=== PATIENT | female | born 1950 | race Caucasian/White ===

== ENCOUNTER 2019-04-29 13:00 | Outpatient (RCR) | payer MEDICARE, OTHER, SELFPAY | END 2019-05-04 23:59 | disposition home or self-care (01) | LOC: ANHDMC 13:00 | DX: E11.22 Type 2 diabetes mellitus with diabetic chronic kidney disease (principal); E11.65 Type 2 diabetes mellitus with hyperglycemia; N18.9 Chronic kidney disease, unspecified; Z71.89 Other specified counseling | CPT/HCPCS: G0108 ==

== ENCOUNTER 2021-09-08 09:48 | Emergency (ER) | payer MEDICARE, OTHER, SELFPAY ==
--- NOTE | ~2021-09-08 | US_ITS ---
US venous doppler LE RT DATE: 09/08/2021 11:05 INDICATION: Right leg pain TECHNIQUE: Real-time and color flow imaging and Doppler analysis of the veins of the right lower extr emity COMPARISON: 11/2015 venous duplex examination of the right lower extremity FINDINGS: The greater saphenous vein is patent. There is spontaneous and phasic flow and normal augme ntation and color flow signal and normal compression of the deep veins of the right leg. IMPRESSION: No evidence of deep venous thrombosis of right leg Reviewed, dictated and finalized at [facility]. Reviewed, dictated and finalized at location A.
[2021-09-08 10:02] VITALS: BP 107/46; PULSE 91; RESP 18; TEMP 36.5; O2SAT 96
--- NOTE | 2021-09-08 10:43 | ED.GENADULT ---
HPI - General Adult General Chief complaint: Extremity Injury, Lower Stated complaint: R. leg pain swollen Time Seen by Provider: 09/08/21 10:34 History of Present Illness HPI narrative: pt here with couple days right leg pain calf going up leg never had before no swelling no trips h/o dvt or family history no med changes not in heat no truama/neuro cahgnes/otc meds tried but sore and rest of body fine. pt says never had before. no skin changes. pt says worried about clot no shots recently no cp/sob Related Data Allergies Allergy/AdvReac Type Severity Reaction Status Date / Time propoxyphene Allergy Unknown Nausea Verified 09/08/21 10:31 Review of Systems Constitutional: Comments: CONSTITUTIONAL: Denies fever, chills, or sweats. EYES: Denies visual changes, redness, or discharge. ENT: Denies rhinorrhea, congestion, sore throat, or otalgia. CARDIOVASCULAR: Denies chest pain, palpitations, or edema. RESPIRATORY: Denies cough or dyspnea. GASTROINTESTINAL: Denies abdominal pain, nausea, vomiting, or diarrhea. GENITOURINARY: Denies dysuria or hematuria. SKIN: Denies rash or itching. MUSCULOSKELETAL: Denies back pain, joint pain,has myalgia right leg. NEUROLOGIC: Denies headache, numbness, or weakness. PSYCHIATRIC: Denies anxiety or depression. Exam Const: Other: APPEARANCE: Well appearing, no pain in distress, well-nourished. Head normocephalic atraumtaic. EYES: PERRLA/EOMI, conjunctivae very clear. NOSE: Normal no drainage EARS:TMS clear Libra Bertrand, with good light reflex. THROAT: Pharynx clear, no exudate. NECK: Supple. No adenopathy, no masses. RESPIRATORY: Airway patent, repsirations nonlabored. Clear to auscultation bilaterally, no rales, rhonchi, wheezing. CARDIOVASCULAR: Regular rate and rhythm without murmurs rubs or gallops. ABDOMINAL: Soft, nontender, nondistended, no hepatosplenomegally MUSCULOSKELETAl: Moves all extremities. Strenght/ROM intact, No edema, has calf tenderness right leg no swelling or skin changes. NEURO: Alert. Cranial nerves II through XII intact. Good gait. Good coordination SKIN:: Warm, dry. Normal Color PSYCHIATRIC: Normal affect/mood, normal interaction with parents. Course Course Emergency Course: updated adn good with plan no back issues at 1220 Vital Signs Vital signs: Vital Signs Temperature 36.5 C 09/08/21 10:02 Pulse Rate 91 09/08/21 10:02 Respiratory Rate 18 09/08/21 10:02 Blood Pressure 107/46 L 09/08/21 10:02 Pulse Oximetry 96 09/08/21 10:02 Oxygen Delivery Room Air 09/08/21 10:02 Temperature 36.5 C 09/08/21 10:02 Pulse Rate 91 09/08/21 10:02 Respiratory Rate 18 09/08/21 10:02 Blood Pressure 107/46 L 09/08/21 10:02 Pulse Oximetry 96 09/08/21 10:02 Oxygen Delivery Room Air 09/08/21 10:02 Medical Decision Making Vital Signs Vital Signs: Vital Signs Temperature 36.5 C 09/08/21 10:02 Pulse Rate 91 09/08/21 10:02 Respiratory Rate 18 09/08/21 10:02 Blood Pressure 107/46 L 09/08/21 10:02 Pulse Oximetry 96 09/08/21 10:02 Oxygen Delivery Room Air 09/08/21 10:02 Temperature 36.5 C 09/08/21 10:02 Pulse Rate 91 09/08/21 10:02 Respiratory Rate 18 09/08/21 10:02 Blood Pressure 107/46 L 09/08/21 10:02 Pulse Oximetry 96 09/08/21 10:02 Oxygen Delivery Room Air 09/08/21 10:02 Imaging Data Radiologist's impression: Impressions Venous Doppler Study 09/08/21 11:27 IMPRESSION: No evidence of deep venous thrombosis of right leg Discharge Plan Discharge Clinical Impression: Leg pain, right Patient Disposition: Home, Self-Care Condition: Stable Additional Instructions: tylenol motrin call your doc for further care, return if new issues Follow-up/Referrals: PHYSICIAN,ELECTRONIC TECHNICIAN [Primary Care Provider] -
[2021-09-08 12:36] VITALS: BP 139/76; PULSE 79; RESP 18; O2SAT 100
== END 2021-09-08 12:35 | disposition home or self-care (01) ==
PROVIDERS: Emergency Provider Emergency Medicine
DX: M79.661 Pain in right lower leg (principal)
CPT/HCPCS: 93971; 99284

== ENCOUNTER → 2021-09-21 16:33 | Outpatient (CLI) | payer MEDICARE, OTHER, SELFPAY ==
--- NOTE | ~2021-09-21 | XR_ITS ---
XR_[id number]_CR 09/21/2021 17:16 Indication: Cervical radiculopathy Procedure: 4 view cervical spine Comparison: No prior studies for comparison. Findings: There is disc narrowing at C4-5, C5-6 and C6-7 with advanced multilevel uncinate and facet hypertrophy at these levels. There is degenerative anterolisthesis at C3-4. No prevertebral soft tiss ue swelling. Odontoid process within normal limits. Lateral masses normally aligned. Lung apices are normal. Impression: 1: Severe cervical spondylosis. Reviewed, dictated and finalized at location A. Impression: 1: Severe cervical spondylosis.
== END ==
DX: M47.22 Other spondylosis with radiculopathy, cervical region (principal)
CPT/HCPCS: 72040

== ENCOUNTER → 2021-10-04 11:05 | Outpatient (CLI) | payer MEDICARE, OTHER, SELFPAY ==
--- NOTE | ~2021-10-04 | MR_ITS ---
EXAMINATION: MR cervical spine wo con DATE: 10/04/2021 11:48 INDICATION: Cervical degenerative disc disease TECHNIQUE: Magnetic resonance imaging (MRI) of the cervical spine was performed without intravenous c ontrast. Sequences included sagittal T2-weighted FSE, sagittal T2-weighted FS FSE, sagittal T1-weight ed FSE, axial MERGE and axial T2-weighted FSE. COMPARISON: Cervical spine radiographs dated 09/21/2021 FINDINGS: 1-2 mm anterolisthesis C3 on C4 and 2 mm retrolisthesis C4 on C5 and C5 on C6. Vertebral body heights are normal. Severe disc height loss with prominent degenerative endplate changes at C4-C5 through C6 -C7. Mild disc height loss at C3-C4. Bone marrow signal intensity is normal. Intervertebral disc hei ghts are normal. Cord signal intensity is normal. Cervical soft tissues are unremarkable. The followi ng disc levels are specifically discussed: C2-C3: The disc does not extend beyond the endplate margin. There is mild left uncovertebral joint os teoarthritis. There is mild right and severe left facet joint osteoarthritis. There is mild left neur al foraminal stenosis. There is no central canal stenosis. C3-C4: Disc is bulging. There is mild bilateral uncovertebral joint osteoarthritis. There is severe r ight and moderate left facet joint osteoarthritis. There is mild bilateral neural foraminal stenosis. There is mild central canal stenosis with slight flattening of the ventral surface of the cord. C4-C5: Disc is bulging. There is severe bilateral uncovertebral joint osteoarthritis. There is modera te right and severe left facet joint osteoarthritis. There is moderate bilateral neural foraminal allegra nosis. There is mild central canal stenosis with right-sided predominant indentation of the ventral s urface of the cord. C5-C6: Disc is bulging. There is severe bilateral uncovertebral joint osteoarthritis. There is mild r ight and moderate left facet joint osteoarthritis. There is moderate bilateral neural foraminal steno sis. There is mild central canal stenosis with flattening of the ventral surface of the cord. C6-C7: Disc is bulging. There is moderate left and severe right uncovertebral joint osteoarthritis. T here is mild bilateral facet joint osteoarthritis. There is mild to moderate bilateral neural foramin al stenosis. There is mild central canal stenosis. C7-T1: The disc does not extend beyond the endplate margin. There is no uncovertebral joint osteoarth ritis. There is mild right and mild to moderate left facet joint osteoarthritis. There is mild left n eural foraminal stenosis. There is no central canal stenosis. IMPRESSION: 1. Severe cervical spondylosis. Reviewed, dictated and finalized at location A.
== END ==
DX: M50.30 Other cervical disc degeneration, unspecified cervical region (principal); M47.22 Other spondylosis with radiculopathy, cervical region
CPT/HCPCS: 72141

== ENCOUNTER → 2022-06-10 11:12 | Outpatient (CLI) | payer MEDICARE, OTHER, SELFPAY ==
--- NOTE | ~2022-06-10 | MM_ITS ---
EXAMINATION: MM screening yesy BI w marian HISTORY: Screening mammogram TECHNIQUE: Craniocaudal and mediolateral oblique 3-D tomosynthesis images were obtained and synthetic 2-D images were generated. CAD analysis was submitted and interpreted. COMPARISON: April 29, 2018 diagnostic left mammogram March 11, 2018, February 11, 2017 bilateral screening mammogram examinations BREAST PARENCHYMAL COMPOSITION: The breasts are heterogeneously dense, which may obscure small masses . FINDINGS: There is no evidence of suspicious mass, calcification, or architectural distortion to sugg est malignancy in either breast. There has been no suspicious interval change. IMPRESSION: 1. No mammographic evidence of malignancy. 2. Recommend routine screening mammography in one year. BI-RADS Category 1: Negative Reviewed, dictated and finalized at location A.
--- NOTE | ~2022-06-10 | DEXA_ITS ---
Bone Density Report Name: HEATHER PETTY Age: 72 Sex: Female Ethnicity: White Date of : 1950 Indication: postmenopausal; screening for osteoporosis; height loss; hysterectomy; Referring Provider: MARQUITA BELA Study: Bone densitometry was performed. Exam Date: June 10, 2022 Accession number: [id number] Bone Density: Region BMD T-score Z-score Classification AP Spine (L1, L2, L4) 1.056 0.2 2.5 Normal Femoral Neck (Left) 0.751 -0.9 1.1 Normal Total Hip (Left) 0.828 -0.9 0.8 Normal Femoral Neck (Right) 0.798 -0.5 1.6 Normal Total Hip (Right) 0.951 0.1 1.8 Normal Total Hip Mean 0.890 -0.4 1.3 Normal World Health Organization criteria for BMD impression classify patients as: Normal (T-score at or above -1.0), Osteopenia (T-score between -1.0 and -2.5), or Osteoporosis (T-score at or below -2.5). 10-year Fracture Risk: FRAX not reported because: All T-scores for Spine Total, Hip Total, Femoral Neck at or above -1.0 Previous Exams: Region Exam Age BMD T-score BMD Change BMD Change Date g/cm2 vs Baseline vs Previous AP Spine(L1, L2, L4) 06/10/2022 72 1.056 0.2 0.061* 0.061* 08/10/2007 57 0.994 -0.4 Total Hip(Left) 06/10/2022 72 0.828 -0.9 -0.060* -0.060* 08/10/2007 57 0.888 -0.4 Total Hip(Right) 06/10/2022 72 0.951 0.1 -0.020 -0.020 08/10/2007 57 0.971 0.2 *Denotes significance at 95% confidence level, LSC for AP Spine = 0.022 g/cm2, LSC for Total Hip = 0.027 g/cm2 Clinical Information Provided by Patient: Has used the following medications: HRT (i.e. estrogen/hormone therapy), Vitamin D, Calcium Has the following medical conditions: Hysterectomy Patient maximum height was 65 Menopause Age: 43 Drinks caffeinated beverages Onset of menses at age 15 Number of children 0 Missed period for more than 6 months in a row Impression: The patient has normal bone mass. The BMD for the Total Hip(Left) decreased, changing by -0.060 since the last DXA exam. Discussion: BONE DENSITY IS ABOVE THE MINIMUM DESIRABLE LEVEL AT ALL SKELETAL SITES TESTED. This patient?s bone mineral density is above the minimum desirable level (T-score -1.0 or better) at all sites measured. The patient should follow a healthful lifestyle (good nutrition with adequate calcium and vitamin D, and appropriate weight-bearing exercise). Follow-Up: Consider repeating this study in 3 to 4 years to reasses
== END ==
DX: Z12.31 Encounter for screening mammogram for malignant neoplasm of breast (principal); Z78.0 Asymptomatic menopausal state
CPT/HCPCS: 77063; 77067; 77080

== ENCOUNTER 2023-06-11 14:10 | Emergency (ER) | payer MEDICARE, OTHER, SELFPAY ==
--- NOTE | ~2023-06-11 | XR_ITS ---
EXAMINATION: XR chest 1V portable DATE: 06/11/2023 15:01 INDICATION: Midsternal chest pain. TECHNIQUE: A single frontal view of the chest was obtained. COMPARISON: None. FINDINGS: There is mild scarring at the lung apices. No pleural effusion or pneumothorax. The heart s ize is normal. IMPRESSION: 1. Mild scarring at the lung apices. Reviewed, dictated and finalized at location A.
--- NOTE | 2023-06-11 14:11 | ECG_ITS ---
Measurements Intervals [place] Rate: 74 P: 53 DE: 166 QRS: 11 QRSD: 74 T: 209 QT: 377 QTc: 420 Interpretive Statements SINUS RHYTHM BASELINE ARTIFACT POSSIBLE LEFT ATRIAL ENLARGEMENT [-0.1mV P-WAVE IN V1/V2] NONSPECIFIC ST & T-WAVE ABNORMALITY BORDERLINE ECG NO PREVIOUS ECG AVAILABLE FOR COMPARISON Electronically Signed On 06-11-2023 14:53:56 CDT by Edi Foley M.D.
[2023-06-11 14:12] VITALS: BP 200/87; PULSE 72; RESP 20; TEMP 36.6; O2SAT 99
--- NOTE | 2023-06-11 14:25 | ED.CHESTPAIN ---
HPI - Chest Pain General Chief Complaint: Chest Pain Stated Complaint: chest pain Time Seen by Provider: 06/11/23 14:21 Source: patient, family and other (report from urgent care) Mode of arrival: ambulatory Limitations: no limitations History of Present Illness HPI narrative: patient presents with intermittent chest pain occurring for the past approximately 1 month. Patient initially presented to urgent care who recommended she present to the emergency department in symptoms. Her provider at Urgent Care, blood pressure was 163/89. No lower extremity edema. She has a history of GERD for which she has been on multiple medications, most recently omeprazole. She does feel like her frequency and intensity of her symptoms is increasing. She states that episodes occur intermittently but last 4 hours. She states her pain level is low currently. Her symptoms are worse when walking fast after eating. she has been trying bland foods like oatmeal which has been helping. She is also complaining of her bilateral ears and eyes hurting with sinus pressure. She has been trying Mucinex and [place]. She feels like her symptoms might be related to allergies as she felt like her symptoms were starting to get worse while in [place] and things were fluttering and then became worse upon landing in [place] after returning (visited [place] for 2.5 months). She had previously been on lisinopril 40 mg q.h.s. for her hypertension but ran out while in [place]. She states that she attempted to call her physician's office while in [place] but was told that upon review of the blood pressure readings well previously in clinic did been normal. She states that she had been taking her blood pressure medication at that time. Related Data Allergies Allergy/AdvReac Type Severity Reaction Status Date / Time propoxyphene AdvReac Unknown Nausea Verified 06/11/23 15:17 [facility] Past Medical History Medical History (Updated 06/12/23 @ 10:06 by Cindy Siegel MD) GERD (gastroesophageal reflux disease) History of COVID-19 Social History Social History (Updated 06/11/23 @ 15:36 by Cindy Siegel MD) Additional living arrangements comments: Resides in [place] for 2.5 months/year Exam Narrative: GENERAL: Well-appearing, well-nourished, and in no acute distress. HEAD: Normocephalic, atraumatic. EYES: Non injected, non icteric ENT: Nares clear, no rhinorrhea or epistaxis. NECK: Supple. CHEST: Clear to auscultation Without appreciable wheezes or crackles.. No respiratory distress. Speaking in full sentences, nonlabored HEART: Regular rate and rhythm. . ABDOMEN: Soft, nondistended. EXTREMITIES: Normal range of motion. No Lower extremity edema. SKIN: Warm, dry, no rash. NEURO: No focal deficits. Alert and oriented x3. PSYCH: Normal mood and affect. Course Vital Signs Vital signs: Vital Signs Temperature 97.9 F 06/11/23 14:12 Pulse Rate 72 06/11/23 14:12 Respiratory Rate 20 06/11/23 14:12 Blood Pressure 200/87 H 06/11/23 14:12 Pulse Oximetry 99 06/11/23 14:12 Oxygen Delivery Room Air 06/11/23 14:12 Temperature 97.8 F 06/11/23 15:40 Pulse Rate 61 06/11/23 15:40 Respiratory Rate 16 06/11/23 15:40 Blood Pressure 171/102 H 06/11/23 15:40 Pulse Oximetry 100 06/11/23 15:40 Oxygen Delivery Room Air 06/11/23 14:41 MDM - Chest Pain MDM Narrative Medical decision making narrative: Patient presents with intermittent chest pain occurring for the past approximately 1 month. In the emergency department she is afebrile with vital signs notable for hypertension. Of note she was hypertensive at urgent care as well. Creatinine 1.3 with no prior for comparison. 1 L IV fluids ordered. Her symptoms are somewhat food related and she has a long standing history of GERD. Patient is feeling better on re-assessment. WIll discharge with strict ED return precautions, a short course of Maalox, and a GI referral.
[2023-06-11 14:42] LABS: Basophils Absolute Auto 0.1 K/mm3 (0.0-0.1); Basophils Percent Auto 0.9 % (0.2-1.2); Eosinophils Absolute Auto 0.1 K/mm3 (0-0.3); Eosinophils Percent Auto 1.6 % (0-4.4); Hematocrit 39.3 % (37.0-47.0); Hemoglobin 12.8 g/dL (12.0-15.0); Immature Granulocyte Absolute 0.04 K/mm3 (0.00-0.031); Immature Granulocyte Percent A 0.5 % (0-0.5); Lymphocytes Absolute Auto 2.04 K/mm3 (0.9-3.2); Lymphocytes Percent Auto 23.4 % (18.3-44.2); Mean Corpuscular HGB Conc 32.6 g/dl (32-36); Mean Corpuscular Hemoglobin 29.8 pg (26-34); Mean Corpuscular Volume 91.6 fl (80-100); Mean Platelet Volume 11.1 fl (7.4-10.4); Monocytes Absolute Auto 0.9 K/mm3 (0.1-0.6); Monocytes Percent Auto 10.6 % (2.6-8.5); Neutrophils Absolute Auto 5.5 K/mm3 (1.3-6.7); Platelet Count Result 237 k/mm3 (150-375); Red Blood Count 4.29 M/mm3 (4.2-5.4); Red Cell Distribution Width 12.9 % (11.5-14.5); White Blood Count 8.7 K/mm3 (4.5-10.0)
[2023-06-11] MEDS: ASPIRIN 81 MG CHEWABLE TABLET 324 MG PO (14:46)
[2023-06-11 14:52] LABS: Alanine Aminotransferase 23 U/L (6-35); Albumin Level 4.2 g/dL (3.5-5.1); Alkaline Phosphatase 87 U/L (38-126); Anion Gap 5 mmol/L (4-12); Aspartate Amino Transferase 26 U/L (14-36); Bilirubin,Total 0.4 mg/dL (0.2-1.3); Blood Urea Nitrogen 20 mg/dL (7-17); Calcium 9.4 mg/dL (8.4-10.2); Carbon Dioxide 27 mmol/L (22-30); Chloride 109 mmol/L (98-107); Estimated CRCL calculation 37 ml/min; Estimated Glomerular Filt Rate 40; Glucose 115 mg/dL (65-110); Lipase 137 U/L (23-300); Potassium 3.7 mmol/L (3.4-5.0); Sodium 141 mmol/L (137-145)
[2023-06-11 14:55] LABS: Prothrombin Time 13.2 Seconds (11.1-14.7)
[2023-06-11 14:56] LABS: Partial Thromboplastin Time 24.6 Seconds (22.3-36.8)
[2023-06-11 15:04] LABS: Troponin I < 0.012 ng/mL (0.000-0.034)
[2023-06-11] MEDS: lisinopriL 20 MG TABLET 40 MG PO (15:30)
[2023-06-11] MEDS: BELLADONNA ALK/PHENOB ELIX 10 ML, MAG HYDROX/ALUMINUM HYD/SIMETH 30 ML, LIDOCAINE HCL 2... PO (15:31)
[2023-06-11 15:40] VITALS: BP 171/102; PULSE 61; RESP 16; TEMP 36.6; O2SAT 100
[2023-06-11] MEDS: SODIUM CHLORIDE 0.9% IV 1,000 ML 999 ML IV CONT (15:40)
[2023-06-11 16:16] LABS: Influenza A QL RT-PCR Negative (Negative); Influenza B QL RT-PCR Negative (Negative); RSV RNA, RT-PCR Negative (Negative); SARS-CoV-2 RNA PCR Negative (Negative)
== END 2023-06-11 17:30 | disposition home or self-care (01) ==
PROVIDERS: Emergency Medicine; Emergency Provider Student in an Organized Health Care Education/Training Program
DX: R07.89 Other chest pain (principal); N17.9 Acute kidney failure, unspecified; I10 Essential (primary) hypertension; K21.9 Gastro-esophageal reflux disease without esophagitis; Z20.822 Contact with and (suspected) exposure to COVID-19; Z86.16 Personal history of COVID-19; R94.31 Abnormal electrocardiogram [ECG] [EKG]
CPT/HCPCS: 36415; 71045; 80053; 83690; 84484; 85025; 85610; 85730; 87637; 93005; 96360; 99284; A9270; J7030

== ENCOUNTER 2023-06-23 13:19 | Outpatient (CLI) | payer MEDICARE, OTHER, SELFPAY ==
--- NOTE | ~2023-06-23 | MM_ITS ---
EXAMINATION: MM screening yesy BI w marian HISTORY: Screening TECHNIQUE: Craniocaudal and mediolateral oblique 3-D tomosynthesis images were obtained and synthetic 2-D images were generated. CAD analysis was submitted and interpreted. COMPARISON: Comparison to multiple prior studies sequentially, with oldest reviewed study dated 04/2018. BREAST PARENCHYMAL COMPOSITION: Dense: The breasts are heterogeneously dense, which may obscure small masses FINDINGS: There is no evidence of suspicious mass, calcification, or architectural distortion to sugg est malignancy in either breast. There has been no suspicious interval change. IMPRESSION: 1. No mammographic evidence of malignancy. 2. Recommend routine screening mammography in one year. BI-RADS Category 1: Negative Reviewed, dictated and finalized at location B.
== END 2023-06-23 13:20 ==
DX: Z12.31 Encounter for screening mammogram for malignant neoplasm of breast (principal)
CPT/HCPCS: 77063; 77067

== ENCOUNTER 2023-09-18 12:45 | Day surgery (SDC) | payer MEDICARE, OTHER, SELFPAY ==
[2023-09-10 14:49] VITALS: BMI 33.0
[2023-09-18 14:11] VITALS: BP 154/71; PULSE 93; RESP 20; TEMP 35.6; O2SAT 98; BMI 31.8
[2023-09-18] MEDS: LACTATED RINGERS 1,000 ML 150 ML IV CONT (14:28)
--- NOTE | 2023-09-18 14:51 | WPDANESEPPF ---
Anes - Initial Pre Proc Eval Procedure: Operation Date: 09/18/23 15:30 Proposed Procedures p Esophagogastroduodenoscopy & Colonoscopy - Leonardo Mattson MD Date/Time: 09/18/23 14:51 Surgeon: Leonardo Mattson MD Pre Op Diagnosis: GERD without esophagitis, Family history malignant Patient Data Age: 73 Gender: F Height: 1.65 m Weight: 86.9 kg Last Vital Signs Temp 96.1 F L 09/18/23 14:11 Pulse 93 09/18/23 14:11 Resp 20 09/18/23 14:11 BP 154/71 H 09/18/23 14:11 Pulse Ox 98 09/18/23 14:11 O2 Del Method Room Air 09/18/23 14:11 Allergies Allergy/AdvReac Type Severity Reaction Status Date / Time propoxyphene AdvReac Unknown Nausea Verified 09/18/23 14:10 Home Medications Medication Instructions Recorded Confirmed Type aluminum-mag hydroxide-simethicone 10 ml PO QID PRN indigestion 06/11/23 09/18/23 Rx 200 mg-200 mg-20 mg/5 mL oral susp #3,000 mL (Antacid) lisinopril 40 mg tablet 40 mg PO DAILY #30 tabs 06/11/23 09/18/23 Rx glucosamine sulf dipot 1 cap PO DAILY 09/10/23 09/18/23 History chlr,msm,chond 550 mg-C 30 mg-samson 1 mg capsule (Glucosamine Chondroitin) rosuvastatin 10 mg tablet 10 mg PO HS 09/10/23 09/18/23 History Patient hx anesthesia problems: none Family hx anesthesia problems: none Results Review: All pre-operative results and documents have been reviewed as part of the pre-operative evaluation. [facility] [place] Past Medical History Medical History (Updated 07/07/23 @ 16:01 by Mary Campo APRN) GERD (gastroesophageal reflux disease) History of COVID-19 HLD (hyperlipidemia) Social History Social History (Updated 06/11/23 @ 15:36 by Cindy Siegel MD) Years smoked: 25 Smoking status: Former smoker Tobacco type: cigarettes Living arrangements: with family Additional living arrangements comments: Resides in [place] for 2.5 months/year Spiritual care concerns: No Anes - Eval Final PreProcedure Day of Procedure 09/18/23 14:51 Patient weight: obese Heart: regular rate and rhythm Lungs: clear to auscultation Airway: Mallampati scale class II Neurological: alert and oriented Last oral intake: >/= 8 hours ASA classification: III Emergent: no Anesthetic plan: proceed Anesthesia type and monitoring: general GIVS and standard monitoring Results Review: All pre-operative results and documents have been reviewed as part of the pre-operative evaluation. Informed Consent: The patient's anesthetic plan and its attendant risks and benefits were discussed with the patient/family/POA. Questions were solicited and answers provided to the satisfaction of the patient/family/POA.
--- NOTE | 2023-09-18 15:17 | P.HP_ITS ---
History of Present Illness History of Present Illness Consent: Risks, benefits, and alternatives have been discussed and questions answered. Patient agrees to proceed with procedure. Chief complaint: GERD without esophagitis, Family history malignant Narrative: Maura Watkins is a 73 year old female with gerd, earlier this year had non cardiac chest pain but now resolved, she is not even taking ppi anymore. Last colonoscopy 2019, brother had colon cancer Review of Systems Review of Systems: All systems reviewed & are unremarkable except as noted in HPI and below PMFSH Past Medical History Medical History (Updated 07/07/23 @ 16:01 by Mary Campo, EDILBERTO) GERD (gastroesophageal reflux disease) History of COVID-19 HLD (hyperlipidemia) Social History Social History (Updated 06/11/23 @ 15:36 by Cindy Siegel MD) Years smoked: 25 Smoking status: Former smoker Tobacco type: cigarettes Living arrangements: with family Additional living arrangements comments: Resides in [place] for 2.5 months/year Spiritual care concerns: No Meds Home Medications and Allergies Home Medications Medication Instructions Recorded Confirmed Type aluminum-mag hydroxide-simethicone 10 ml PO QID PRN indigestion 06/11/23 09/18/23 Rx 200 mg-200 mg-20 mg/5 mL oral susp #3,000 mL (Antacid) lisinopril 40 mg tablet 40 mg PO DAILY #30 tabs 06/11/23 09/18/23 Rx glucosamine sulf dipot 1 cap PO DAILY 09/10/23 09/18/23 History chlr,msm,chond 550 mg-C 30 mg-samson 1 mg capsule (Glucosamine Chondroitin) rosuvastatin 10 mg tablet 10 mg PO HS 09/10/23 09/18/23 History Allergies Allergy/AdvReac Type Severity Reaction Status Date / Time propoxyphene AdvReac Unknown Nausea Verified 09/18/23 14:10 Vital Signs Vital Signs - 24 hr 09/18/23 14:11 Temperature 96.1 F L Pulse Rate 93 Respiratory Rate 20 Blood Pressure 154/71 H Pulse Oximetry 98 Oxygen Delivery Room Air Exam Const: General: comfortable and no acute distress HENMT: Face/Nose/Sinus: Normal nares present Eyes: General: appearance normal, both eyes and all related structures Neck: Neck: no JVD Resp: Auscultation: clear to auscultation bilaterally Cardio: Rate: regular rate Rhythm: regular rhythm GI: Inspection: non-distended GI Palp: Yes Soft to palpation Skin: General skin exam: normal color Neuro: General: gait normal Speech: normal speech Extrem: General: normal to inspection Psych: Mental Status: mental status grossly normal Assessment and Plan Assessment and plan (1) GERD (gastroesophageal reflux disease): Code(s): K21.9 - Gastro-esophageal reflux disease without esophagitis Status: Acute Assessment and Plan: egd (2) Family hx of colon cancer: Code(s): Z80.0 - Family history of malignant neoplasm of digestive organs Status: Acute Assessment and Plan: colonoscopy
--- NOTE | 2023-09-18 15:27 | SUR.OPER ---
EGD COMPLETED AT 1525, COLONOSCOPY STARTED AT 1529
[2023-09-18 15:45] VITALS: BP 120/60; PULSE 63; RESP 19; O2SAT 97
[2023-09-18 15:55] VITALS: BP 120/82; PULSE 64; RESP 17; O2SAT 100
[2023-09-18 16:05] VITALS: BP 131/65; PULSE 60; RESP 22; O2SAT 100
== END 2023-09-18 16:17 | disposition home or self-care (01) ==
PROVIDERS: Referring Provider Nurse Practitioner; Visit Provider Internal Medicine Gastroenterology
PROC: 0DJ08ZZ Inspection of Upper Intestinal Tract, Via Natural or Artificial Opening Endoscopic (ICD-10-PCS; CPT 43235; principal; 2023-09-18 15:30)
DX: Z12.11 Encounter for screening for malignant neoplasm of colon (principal); D12.5 Benign neoplasm of sigmoid colon; K63.5 Polyp of colon; K64.8 Other hemorrhoids; Z80.0 Family history of malignant neoplasm of digestive organs; K29.50 Unspecified chronic gastritis without bleeding; K21.00 Gastro-esophageal reflux disease with esophagitis, without bleeding; K22.2 Esophageal obstruction; K44.9 Diaphragmatic hernia without obstruction or gangrene; E78.5 Hyperlipidemia, unspecified; Z87.891 Personal history of nicotine dependence; E66.9 Obesity, unspecified; Z68.31 Body mass index [BMI] 31.0-31.9, adult
CPT/HCPCS: 45385; 43249; 43239; 88305; J2704; J7120

== ENCOUNTER 2024-02-18 17:11 | Emergency (ER) | payer MEDICARE, OTHER, SELFPAY ==
--- NOTE | ~2024-02-18 | XR_ITS ---
EXAMINATION: XR knee RT min 4V DATE: 02/18/2024 19:26 INDICATION: Right knee pain. TECHNIQUE: 4 views of right knee were obtained. COMPARISON: None. FINDINGS: Alignment is normal. No fracture. There is mild tricompartmental osteoarthritis. There is a small knee joint effusion. IMPRESSION: 1. Mild right knee osteoarthritis. 2. Small right knee joint effusion. Reviewed, dictated and finalized at location A. TERM
--- NOTE | ~2024-02-18 | US_ITS ---
EXAMINATION: US venous doppler LE RT DATE: 02/18/2024 20:27 INDICATION: Right calf pain and swelling. TECHNIQUE: Grayscale ultrasound images without and with compression and Doppler ultrasound images of the right lower extremity veins were obtained. COMPARISON: Ultrasound 09/08/2021 FINDINGS: The visualized portions of right common femoral vein, profunda (deep) femoral vein, femoral vein, pop liteal vein, peroneal veins, posterior tibial veins, and greater saphenous vein outflow are patent. IMPRESSION: 1. No deep venous thrombosis. Reviewed, dictated and finalized at location A. ANICAL APPLICATIONS ENGINEER
[2024-02-18 17:16] VITALS: BP 222/70; PULSE 81; RESP 16; TEMP 36.4; O2SAT 98
--- NOTE | 2024-02-18 19:04 | ED_ITS ---
HPI - Extremity Problem General Chief complaint: Extremity Problem,Nontraumatic <Lucía Mohamud PA-C - Last Filed: 02/23/24 18:04> Stated complaint: R leg pain <Lucía Mohamud PA-C - Last Filed: 02/23/24 18:04> Time Seen by Provider: 02/18/24 19:04 <Lucía Mohamud PA-C - Last Filed: 02/23/24 18:04> Focused HPI: This is a 73 year old female that presents to the ER for right knee pain. Reports it has been hurting for a while. Reports she is no longer able to walk on it due to pain. Today her knee gave away causing her to fall. She did not hit her head or lose consciousness. Reports some swelling and pain in the right calf. Denies numbness. GENERAL: Well-appearing, well-nourished, and in no acute distress. HEAD: Normocephalic, atraumatic. CHEST: Clear to auscultation. ?No respiratory distress. HEART: Regular rate and rhythm.? NEURO: ?Alert and oriented x3. Patient screened in triage and initial orders placed.? ?Additional care and disposition to be based upon?diagnostic testing and treatment. <Lucía Mohamud PA-C - Last Filed: 02/23/24 18:04> Focused HPI: This is a 73 year old female that presents to the ER for right knee pain. Reports it has been hurting for a while. Reports she is no longer able to walk on it due to pain. Today her knee gave away causing her to fall. She did not hit her head or lose consciousness. Reports some swelling and pain in the right calf. Denies numbness. GENERAL: Well-appearing, well-nourished, and in no acute distress. HEAD: Normocephalic, atraumatic. CHEST: Clear to auscultation. ?No respiratory distress. HEART: Regular rate and rhythm.? NEURO: ?Alert and oriented x3. Patient screened in triage and initial orders placed.? ?Additional care and disposition to be based upon?diagnostic testing and treatment. Agree or triage assessment. Patient states that in October she was gardening and hyperextended her right knee in a valgus position. Patient states that since then she has been having intermittent right knee pain and from time to time her right knee will give out on her but today she states that the pain was not controlled by her [id number] pain medications. Patient has been meaning to see an orthopedic doctor and did make an appointment but was told that she could not get in to see him because she needed a referral from her primary care physician. She denies any recent falls or trauma and denies any additional symptoms or concerns at this time. <Natali Luke MD - Last Filed: 02/18/24 20:53> Related Data Home medications: Home Medications ?Medication ?Instructions ?Recorded ?Confirmed ?Last Taken ?Type glucosamine sulf dipot 1 cap PO DAILY 09/10/23 09/30/23 09/17/23 History chlr,msm,chond 550 mg-C 30 mg-samson 1 mg capsule (Glucosamine Chondroitin) rosuvastatin 10 mg tablet 10 mg PO HS 09/10/23 09/30/23 09/17/23 History <Lucía Mohamud PA-C - Last Filed: 02/23/24 18:04> Allergies/Adverse reactions: Allergies Allergy/AdvReac Type Severity Reaction Status Date / Time propoxyphene AdvReac Unknown Nausea Verified 09/30/23 13:06 <Lucía Mohamud PA-C - Last Filed: 02/23/24 18:04> Review of Systems Review of Systems: All systems are reviewed and are negative unless stated otherwise in the HPI. <Natali Luke MD - Last Filed: 02/18/24 20:53> PMFSH Past Medical History Medical History: Medical History HLD (hyperlipidemia) History of COVID-19 GERD (gastroesophageal reflux disease) <Lucía Mohamud PA-C - Last Filed: 02/23/24 18:04> Social History Social History: Social History Years smoked: 25 Smoking status: Former smoker Tobacco type: cigarettes Living arrangements: with family Additional living arrangements comments: Resides in [place] for 2.5 months/year Spiritual care concerns: No <Lucía Mohamud PA-C - Last Filed: 02/23/24 18:04> Exam Narrative: General: Alert, awake, afebrile, in no acute distress. HEENT: PERRL, no rhinorrhea, no post nasal drip, oropharynx clear. Neck: Trachea midline, no JVD, no lymphadenopathy. Cardiovascular: Regular rate and rhythm, no murmurs, rubs or gallops, no peripheral edema. Respiratory: Clear to auscultation bilaterally, no tachypnea, no wheezing, no rhonchi, no rubs, no respiratory distress. Abdomen: Soft, nontender, nondistended, no rebound, no guarding, no peritoneal signs. Musculoskeletal: No joint swelling or deformity, normal muscle tone, no overlying ecchymosis, erythema, warmth, or any signs of infection, intact full range of motion at the right knee joint. Skin: No rashes or petechia, no signs of infection. Psychiatric: Alert and oriented, normal behavior and judgment for situation. Neurological: Alert and oriented to person, place, and time. Follows all commands. No focal deficits, speech is clear and fluent. <Natali Luke MD - Last Filed: 02/18/24 20:53> Course Vital Signs Vital signs: Vital Signs Temperature 97.6 F 02/18/24 17:16 Pulse Rate 81 02/18/24 17:16 Respiratory Rate 16 02/18/24 17:16 Blood Pressure 222/70 H 02/18/24 17:16 Pulse Oximetry 98 02/18/24 17:16 Temperature 97.6 F 02/18/24 17:16 Pulse Rate 86 02/18/24 21:33 Respiratory Rate 15 02/18/24 21:33 Blood Pressure 142/90 H 02/18/24 21:33 Pulse Oximetry 100 02/18/24 21:33 <Lucía Mohamud PA-C - Last Filed: 02/23/24 18:04> Vital Signs Temperature 97.6 F 02/18/24 17:16 Pulse Rate 81 02/18/24 17:16 Respiratory Rate 16 02/18/24 17:16 Blood Pressure 222/70 H 02/18/24 17:16 Pulse Oximetry 98 02/18/24 17:16 Temperature 97.6 F 02/18/24 17:16 Pulse Rate 86 02/18/24 21:33 Respiratory Rate 15 02/18/24 21:33 Blood Pressure 142/90 H 02/18/24 21:33 Pulse Oximetry 100 02/18/24 21:33 <Natali Luke MD - Last Filed: 02/18/24 20:53> MDM - Extremity (Nontraumatic) MDM Narrative Medical decision making narrative: The patient was evaluated by myself in the emergency department. History is obtained from patient who is an independent historian and physical exam was performed. External medical records were reviewed at this time. Patient was administered an oral Conover 5-325 mg and 125 mg of IM Solu-Medrol for pain. Imaging studies obtained included right knee x-ray which was independently interpreted by me revealing 1. Mild right knee osteoarthritis. 2. Small right knee joint effusion. Right lower extremity venous duplex ultrasound was also performed at this time and independently interpreted by me revealing no evidence of DVT. At this time patient's right knee was placed in an Familia wrap. She was informed that she will need to follow-up with an orthopedic surgeon as an outpatient for an MRI of her right knee to evaluate for any meniscal/cruciate ligament injury and patient is agreeable with this plan. She was informed to rest/ice and elevate her right knee joint and using knee brace while ambulating for additional support and patient is agreeable with this plan. Differential diagnosis considerations include ACL/PCL injury, meniscal injury, arthritis, fractures, dislocations, DVT. Comorbidities impacting this visit include none. I have evaluated and discussed social determinants of health with the patient that could potentially impact subsequent diagnosis and treatment plans. On repeat assessment of the patient, reevaluation revealed that the patient is doing well and is in no acute distress. Patient symptoms have improved since she arrived to our emergency department. Repeat vital signs were all reviewed and noted to be stable. Differential diagnosis and treatment plan were discussed with the patient at bedside. Patient agrees with discussion and after shared medical decision making agrees with discharge. All questions were answered to the patient's satisfaction. Patient will follow up with orthopedics in 3-5 days. Script for norco was sent to her pharmacy to use as prescribed. Patient was provided with strict return precautions and instructed to return to the emergency department if any new or worsening symptoms develop. The patient was discharged in stable condition. <Natali Luke MD - Last Filed: 02/18/24 20:53> Imaging Data Radiologist's impression: ITS Impressions Knee X-Ray 02/18/24 19:27 IMPRESSION: 1. Mild right knee osteoarthritis. 2. Small right knee joint effusion. Venous Doppler Study 02/18/24 20:29 IMPRESSION: 1. No deep venous thrombosis. <SUSAN Aaron Last Filed: 02/23/24 18:04> Critical Care Time Critical Care Time Critical Care Time: No <SUSAN Aaron Last Filed: 02/23/24 18:04> Discharge Plan Discharge Clinical Impression: Internal derangement of knee <SUSAN Aaron Last Filed: 02/23/24 18:04> Patient Disposition: Home, Self-Care <SUSAN Aaron Last Filed: 02/23/24 18:04> Condition: Improved <SUSAN Aaron Last Filed: 02/23/24 18:04> Instructions: Antibiotic Form, Knee Sprain (ED) <SUSAN Aaron Last Filed: 02/23/24 18:04> Additional Instructions: Please follow-up with the orthopedic surgeon you were provided with, call tomorrow to set up a follow-up appointment to be seen within the next week. Return to the ED if any new or worsening symptoms develop. Use the prescribed medication as needed for pain. <Lucía Mohamud PA-C - Last Filed: 02/23/24 18:04> Patient Language: Singaporean <SUSAN Aaron Last Filed: 02/23/24 18:04> Prescriptions: New hydrocodone-acetaminophen 5-325 mg tablet 1 tablet PO Q8H PRN (Reason: pain) Qty: 10 0RF hydrocodone-acetaminophen 5-325 mg tablet 1 tablet PO Q8H PRN (Reason: pain) Qty: 10 0RF No Action lansoprazole 30 mg capsule,delayed release(DR/EC) 30 mg PO DAILY Qty: 90 3RF lisinopril 40 mg tablet 40 mg PO DAILY Qty: 30 0RF Rx Instructions: starting 06/11 (received first dose in ED 06/10) alum-mag hydroxide-simeth [Antacid] 200-200-20 mg/5 mL suspension 10 ml PO QID PRN (Reason: indigestion) Qty: 3000 0RF Rx Instructions: administer between meals and at bedtime rosuvastatin 10 mg tablet 10 mg PO HS Glucosamine Chondroitin 550-30-1 mg Capsule 1 cap PO DAILY <Lucía Mohamud PA-C - Last Filed: 02/23/24 18:04> Follow-up/Referrals: amanda [Other] PHYSICIAN NOT ON STAFF,NONSTAFF [Non-Staff] - <Lucía Mohamud PA-C - Last Filed: 02/23/24 18:04> Time of Disposition: 20:52 <Lucía Mohamud PA-C - Last Filed: 02/23/24 18:04> 20:52 <Natali Luke MD - Last Filed: 02/18/24 20:53>
[2024-02-18] MEDS: HYDROcodone/acetaminophen (*CRX) 5-325 MG TABLET 1 TAB PO (20:47)
[2024-02-18] MEDS: methylPREDNISolone SOD SUCC 125 MG VIAL IM (20:48)
[2024-02-18 21:33] VITALS: BP 142/90; PULSE 86; RESP 15; O2SAT 100
== END 2024-02-18 21:34 | disposition home or self-care (01) ==
LOC: ANHED 21:05
PROVIDERS: Emergency Provider Emergency Medicine
DX: M23.91 Unspecified internal derangement of right knee (principal); M79.661 Pain in right lower leg; E78.5 Hyperlipidemia, unspecified; K21.9 Gastro-esophageal reflux disease without esophagitis; Z86.16 Personal history of COVID-19; Z87.891 Personal history of nicotine dependence; M17.11 Unilateral primary osteoarthritis, right knee
CPT/HCPCS: 73564; 93971; 96372; 99284; A9270; J2919

== ENCOUNTER 2024-03-16 08:13 | Outpatient (CLI) | payer MEDICARE, OTHER, SELFPAY ==
--- NOTE | ~2024-03-16 | MR_ITS ---
EXAMINATION: MR knee RT wo con DATE: 03/16/2024 09:18 INDICATION: Other tear of medial meniscus, current injury. Right knee pain. TECHNIQUE: Magnetic resonance imaging (MRI) of the right knee was performed without intravenous contr ast. Sequences included axial PD-weighted FS FSE, coronal PD-weighted FSE and PD-weighted FS FSE, sag ittal PD-weighted FSE, and sagittal T2-weighted FS FSE. COMPARISON: Right knee radiographs 02/18/2024 FINDINGS: Medial compartment: There is a complex tear of body and posterior horn of medial meniscus. There is a subcondylar insuffi ciency fracture of medial tibial condyle with low signal fracture line and surrounding edema-like mar row signal intensity. There is shallow partial-thickness cartilage loss of femoral condyle and cartil age surface irregularity of tibial condyle. Osteophytes are noted. Lateral compartment: Lateral meniscus is normal. There is shallow partial-thickness cartilage loss of tibial condyle. The femoral cartilage is normal. Patellofemoral compartment: There is deep partial-thickness cartilage loss of patellar median ridge and medial and lateral facets with mild subchondral edema-like marrow signal intensity. There is shallow partial-thickness cartila ge loss of trochlea. Ligaments and tendons: The anterior and posterior cruciate ligaments are normal. There are changes of prior sprains of media l collateral ligament and fibular collateral ligament characterized by increased signal intensity pro ximally. There is mild patellar tendinopathy. Fluid: There is a small knee joint effusion. There is trace fluid in a Parker's cyst. There is mild prepatell ar bursitis and moderate superficial infrapatellar bursitis. Osseous/other: There is mild fatty atrophy of medial head of gastrocnemius muscle. IMPRESSION: 1. Subchondral insufficiency fracture of medial tibial condyle. 2. Moderate chondrosis of patellofemoral compartment and mild chondrosis of medial and lateral compar tments. 3. Complex tear of medial meniscus. 4. Small knee joint effusion. Reviewed, dictated and finalized at location A. T STRIPPER IMPRESSION: 1. Subchondral insufficiency fracture of medial tibial condyle. 2. Moderate chondrosis of patellofemoral compartment and mild chondrosis of med ial and lateral compartments. 3. Complex tear of medial meniscus. 4. Small knee joint effusion.
--- OUTSIDE RECORDS SUMMARY | 2024-03-22 20:09 | XMS_ITS | Encounter Summary ---
Author Organization [email or web address] Address [address] [place] [address] Care Team Providers Care Lamination Inspector Name Role Phone Jhonathan Fisher MD Primary Care Provider Opal ramírez Encounter Details Date Type Department Care Team (Late st Contact Info) Description 12/16/2003 Outpatient Historical [facility] Alex Kay MD [address] [facility] [address] [place] [address] SCREENING MAMM-MAILG NEOPL-OTHER (Primary Dx) Social History Tobacco Use Types Packs/Day Years Used Date Smoking Tobacco: Never Assessed Sex and Gender Information Value Date Recorded Sex Assigned at Not on file Gender Identity Not on file Sexual Orientation Not on file documented as of this encounter Plan of Treatment Not on file documented as of this encounter Visit Diagnoses Diagnosis Other screening mammogram- Primary documented in this encounter Care Teams Lamination Inspector Relationship Specialty Start Date End Date Jhonathan Fisher MD PCP - General 02/24/15 documented as of this encounter
--- OUTSIDE RECORDS SUMMARY | 2024-03-22 20:09 | XMS_ITS | Encounter Summary ---
Author Organization [employer] [facility] Address [address] [place] [address] Care Team Providers Care Cafe Attendant Name Role Phone Jhonathan Fisher MD Primary Care Provider Opal ramírez Encounter Details Date Type Department Care Team (Late st Contact Info) Description 12/23/2005 Outpatient Historical [facility] Raz Guy MD [address] [place] [id number] Other Screening Mammogram (Primary Dx) Social History Tobacco Use Types [...] Primary documented in this encounter Care Teams Cafe Attendant Relationship Specialty Start Date End Date Jhonathan Fisher MD PCP - General 02/24/15 documented as of this encounter
--- OUTSIDE RECORDS SUMMARY | 2024-03-22 20:09 | XMS_ITS | Encounter Summary ---
Author Organization [employer] Address [address] [place] [address] Care Team Providers Care Fingernail Sculptor Name Role Phone Jhonathan Fisher MD Primary Care Provider Opal ramírez Encounter Details Date Type Department Care Team (Late st Contact Info) Description 12/08/2002 Outpatient Historical [facility] Jhonathan Fisher MD SCREENING MAMM-MAILG NEOPL-OTHER (Primary Dx) Social History [...] Primary documented in this encounter Care Teams Fingernail Sculptor Relationship Specialty Start Date End Date Jhonathan Fisher MD PCP - General 02/24/15 documented as of this encounter
--- OUTSIDE RECORDS SUMMARY | 2024-03-22 20:09 | XMS_ITS | Encounter Summary ---
Author Organization [facility] Address [address] [place] [address] Care Team Providers Care Mold Filling Operator Name Role Phone Jhonathan Fisher MD Primary Care Provider Opal ramírez Reason for Referral * Outpatient Services (Routine) - Closed Specialty Diagnoses / Procedures Referred By Contac t Referred To Contact Diagnoses Hip pain Procedures XR ARTHROGRAM HIP RIGHT Efrain Ceron MD NO ADDRESS ON FILE Referral ID Status Reason Start Date Expiration Date Visits Re quested Visits Authorized [id number] Closed 05/15/2012 06/15/2013 1 1 Reason for Visit * Outpatient Services (Routine) - Closed Specialty Diagnoses / Procedures Referred By Contac t Referred To Contact Diagnoses Hip pain Procedures XR ARTHROGRAM HIP RIGHT Efrain Ceron MD NO ADDRESS ON FILE Referral ID Status Reason Start Date Expiration Date Visits Re quested Visits Authorized [id number] Closed 05/15/2012 06/15/2013 1 1 Encounter Details Date Type Department Care Team (Latest Contact Info) Description 05/20/2012 12:09 PM CDT - 05/20/2012 11:59 PM CDT Hospital Encounter [facility] [address] [place] [address] Efrain Ceron MD NO ADDRESS ON FILE Discharge Disposition: Home or Self Care Social History Tobacco Use Types Packs/Day Years Used Date Smoking Tobacco: Never Assessed Sex and Gender Information Value Date Recorded Sex Assigned at Not on file Gender Identity Not on file Sexual Orientation Not on file documented as of this encounter Miscellaneous Notes * Scanned Form - Scanning, Stl - 05/24/2012 7:51 PM CDT Electronically signed by Interface, [facility] [address] Racing Mechanic Incoming at 05/24/2012 7:51 PM CDT * Scanned Form - Scanning, Stl - 05/24/2012 7:51 PM CDT Electronically signed by Interface, [facility] St[facility] Racing Mechanic Incoming at 05/24/2012 7:51 PM CDT documented in this encounter Plan of Treatment Not on file documented as of this encounter Procedures Procedure Name Priority Date/Time Associated Diagnosis Comments XR ARTHROGRAM HIP RIGHT Routine 05/20/2012 1:52 PM CDT Hip pain documented in this encounter Results * XR ARTHROGRAM HIP RIGHT (05/20/2012 1:52 PM CDT) Anatomical Region Laterality Modality Lower Extremity Computed Radiogr aphy 05/20/2012 1:05 PM CDT Impressions 05/21/2012 4:49 PM CDT IMPRESSION: Normal hip arthrogram. Please see separate MRI report. Fluoroscopy time 1.1 minutes. Narrative 05/21/2012 4:49 PM CDT EXAM: FLUOROSCOPIC GUIDED RIGHT HIP ARTHROGRAM, 05/20/2012 INDICATION: Hip pain. TECHNIQUE: After informed consent was obtained. The patient was placed in supine position on the fluoroscopic table. Kindergarten Tutor images were obtained. The skin anterior to the hip joint was cleaned and draped in a sterile manner. After local anesthesia with 1% lidocaine, a 20-gauge spinal needle was directed into the hip joint space with fluoroscopic guidance. 13 mL of a contrast mixture containing iodinated contrast, gadolinium contrast, and lidocaine was injected. The needle was removed and a bandage was applied. Postinjection spot images were obtained. FINDINGS: There is opacification of a normal joint space without extravasation or filling defect. Bony structures appear normal. Procedure Note Oumar Ibarra MD - 05/21/2012 EXAM: FLUOROSCOPIC GUIDED RIGHT HIP ARTHROGRAM, 05/20/2012 INDICATION: Hip pain. TECHNIQUE: After informed consent was obtained. The patient was placed in supine position on the fluoroscopic table. Kindergarten Tutor images were obtained. The skin anterior to the hip joint was cleaned and draped in a sterile manner. After local anesthesia with 1% lidocaine, a 20-gauge spinal needle was directed into the hip joint space with fluoroscopic guidance. 13 mL of a contrast mixture containing iodinated contrast, gadolinium contrast, and lidocaine was injected. The needle was removed and a bandage was applied. Postinjection spot images were obtained. FINDINGS: There is opacification of a normal joint space without extravasation or filling defect. Bony structures appear normal. IMPRESSION IMPRESSION: Normal hip arthrogram. Please see separate MRI report. Fluoroscopy time 1.1 minutes. Efrain Ceron MD DIAGNOSTIC IMAGING ORDERABLES documented in this encounter Visit Diagnoses Diagnosis Hip pain Pain in joint, pelvic region and thigh documented in this encounter Administered Medications Inactive Administered Medications - up to 3 most recent administrations Medication Order MAR Action Action Date Dose Rate Site iohexol (OMNIPAQUE) 300 mg iodine/mL injection 30 mL 30 mL, IV, INTRA-PROCEDURE ONCE, 1 dose, Starting on Fri05/20/12 at 1403, Until Fri05/20/12 at 1330, Routine Given 05/20/2012 1:30 PM CDT 30 mL documented in this encounter Care Teams Mold Filling Operator Relationship Specialty Start Date End Date Jhonathan Fisher MD PCP - General 12/25/99 02/23/15 documented as of this encounter
--- OUTSIDE RECORDS SUMMARY | 2024-03-22 20:09 | XMS_ITS | Clinical Summary ---
Author Organization [facility] Address [address] [place] [address] Phone Care Team Providers Care Crime Lab Analyst Name Role Phone Jhonathan Fisher MD Primary Care Provider Opal ramírez Social History Tobacco Use Types Packs/Day Years Used Date Smoking Tobacco: Never Assessed Sex and Gender Information Value Date Recorded Sex Assigned at Not on file Gender Identity Not on file Sexual Orientation Not on file Plan of Treatment Health Maintenance Due Date Last Done Comments DTAP/TDAP/TD VACCINES (1 - Tdap) 1967 COLORECTAL SCREENING 1993 Colorectal Cancer Screening 1993 FIT-DNA Q 3 years 1993 FIT/FOBT Q 1 year 1993 Flex Sig/CT Colonography Q 5 years 1993 ZOSTER VACCINE (1 of 2) 1998 OSTEOPOROSIS SCREENING 2013 PNEUMOCOCCAL VACCINE 65+ YEARS (1 of 1 - PCV) 04/10/19 14 RSV VACCINE (60+ or ) (1 - 1-dose 75+ series) 2023 INFLUENZA VACCINE (#1) 2023 Care Teams Crime Lab Analyst Relationship Specialty Start Date End Date Jhonathan Fisher MD PCP - General 02/24/15
--- OUTSIDE RECORDS SUMMARY | 2024-03-22 20:09 | XMS_ITS | Encounter Summary ---
Author Organization [employer] [facility] Address [address] [place] [address] Care Team Providers Care Sheep Or Calf Grader Name Role Phone Jhonathan Fisher MD Primary Care Provider Opal ramírez Encounter Details Date Type Department Care Team (Late st Contact Info) Description 12/17/2001 Outpatient Historical [facility]AN Jhonathan Fisher [...] Primary documented in this encounter Care Teams Sheep Or Calf Grader Relationship Specialty Start Date End Date Jhonathan Fisher MD PCP - General 02/24/15 documented as of this encounter
--- OUTSIDE RECORDS SUMMARY | 2024-03-22 20:09 | XMS_ITS | Encounter Summary ---
Author Organization [facility] Address [address] [place] [address] Care Team Providers Care Inpatient Services Director Name Role Phone Jhonathan Fisher MD Primary Care Provider Opal ramírez Reason for Referral * Outpatient Services (Routine) - Closed Specialty Diagnoses / Procedures Referred By Contac t Referred To Contact MRI Diagnoses Hip pain Procedures MRI ARTHROGRAM HIP RIGHT Efrain Ceron MD NO ADDRESS ON FILE Referral ID Status Reason Start Date Expiration Date Visits Re quested Visits Authorized [id number] Closed 05/15/2012 06/15/2013 1 1 Reason for Visit * Outpatient Services (Routine) - Closed Specialty Diagnoses / Procedures Referred By Contac t Referred To Contact MRI Diagnoses Hip pain Procedures MRI ARTHROGRAM HIP RIGHT Erfain Ceron MD NO ADDRESS ON FILE Referral ID Status Reason Start Date Expiration Date Visits Re quested Visits Authorized [id number] Closed 05/15/2012 06/15/2013 1 1 Encounter Details Date Type Department Care Team (Latest Contact Info) Description 05/20/2012 1:45 PM CDT - 05/20/2012 11:59 PM CDT Hospital Encounter [facility] [address] [address] [place] [address] Efrain Ceron MD NO ADDRESS [...] * Scanned Form - Scanning, Stl - 06/03/2012 2:33 PM CDT Electronically signed by Raquel, [facility] [place] Incoming at 06/03/2012 2:33 PM CDT * Scanned Form - Scanning, Stl - 06/01/2012 6:04 PM CDT Electronically signed by Interface, [facility] [place] Incoming at 06/01/2012 6:04 PM CDT documented in this encounter Plan of Treatment Not on file documented as of this encounter Procedures Procedure Name Priority Date/Time Associated Diagnosis Comments MRI ARTHROGRAM HIP RIGHT Routine 05/20/2012 3:10 PM CDT Hip pain documented in this encounter Results * MRI ARTHROGRAM HIP RIGHT (05/20/2012 3:10 PM CDT) Anatomical Region Laterality Modality Upper Extremity Magnetic Resonan ce 05/20/2012 2:22 PM CDT Impressions 05/21/2012 4:49 PM CDT IMPRESSION: ??Normal study. Narrative 05/21/2012 4:49 PM CDT EXAM: MRI ARTHROGRAM, RIGHT HIP, 05/20/2012 INDICATION: Hip pain. FINDINGS: There is normal marrow signal in the proximal femur and right acetabulum. The joint space is distended with injected contrast which surrounds the acetabular labrum. There is no focal defect or tear of the labrum. There are no filling defects or loose bodies in the joint space. Muscles and tendons surrounding the hip joint show normal signal. There is no periarticular cyst, edema or inflammation. Procedure Note Oumar Ibarra MD - 05/21/2012 EXAM: MRI ARTHROGRAM, RIGHT HIP, 05/20/2012 INDICATION: Hip pain. FINDINGS: There is normal marrow signal in the proximal femur and right acetabulum. The joint space is distended with injected contrast which surrounds the acetabular labrum. There is no focal defect or tear of the labrum. There are no filling defects or loose bodies in the joint space. Muscles and tendons surrounding the hip joint show normal signal. There is no periarticular cyst, edema or inflammation. IMPRESSION IMPRESSION: Normal study. Efrain Ceron MD MR ORDERABLES documented in this encounter Visit Diagnoses Diagnosis Hip pain Pain in joint, pelvic region and thigh documented in this encounter Administered Medications Inactive Administered Medications - up to 3 most recent administrations Medication Order MAR Action Action Date Dose Rate Site gadoversetamide (OPTIMARK) 2.5 mmol/5 mL injection 1 mL, IV, INTRA-PROCEDURE ONCE, 1 dose, Starting on Fri05/20/12 at 1457, Until Fri05/20/12 at 1458, Routine Given 05/20/2012 2:58 PM CDT 1 mL documented in this encounter Care Teams Inpatient Services Director Relationship Specialty Start Date End Date Jhonathan Fisher MD PCP - General 12/25/99 02/23/15 documented as of this encounter
--- OUTSIDE RECORDS SUMMARY | 2024-03-22 20:09 | XMS_ITS | Encounter Summary ---
Author Organization [facility] Address [address] [place] [address] Care Team Providers Care Limousine Rental Clerk Name Role Phone Jhonathan Fisher MD Primary Care Provider Opal ramírez Encounter Details Date Type Department Care Team (Late st Contact Info) Description 01/02/2004 Outpatient Historical HIS [facility] Alex Salmon MD [address] [facility] [address] [place] [address] SCREENING MAMM-MALIG NEOPL-HI RISK (Primary Dx) Social History Tobacco Use Types Packs/Day Years Used Date Smoking Tobacco: Never Assessed Sex and Gender Information Value Date Recorded Sex Assigned at Not on file Gender Identity Not on file Sexual Orientation Not on file documented as of this encounter Plan of Treatment Not on file documented as of this encounter Visit Diagnoses Diagnosis Screening mammogram for high-risk patient- Primary documented in this encounter Care Teams Limousine Rental Clerk Relationship Specialty Start Date End Date Jhonathan Fisher MD PCP - General 02/24/15 documented as of this encounter
--- OUTSIDE RECORDS SUMMARY | 2024-03-22 20:09 | XMS_ITS | Encounter Summary ---
Author Organization [facility] Address [address] [place] [address] Care Team Providers Care Electrical Logging Engineer Name Role Phone Jhonathan Fisher MD Primary Care Provider Opal ramírez Encounter Details Date Type Department Care Team (Late st Contact Info) Description 12/20/2004 Outpatient Historical [facility] Jhonathan Fisher MD SCREENING MAMM-MAILG NEOPL NEC (Primary Dx) Social History Tobacco Use Types [...] Primary documented in this encounter Care Teams Electrical Logging Engineer Relationship Specialty Start Date End Date Jhonathan Fisher MD PCP - General 02/24/15 documented as of this encounter
--- OUTSIDE RECORDS SUMMARY | 2024-03-22 20:10 | XMS_ITS | Encounter Summary ---
Author Organization [facility] Address [address] [place] [address] Care Team Providers Care Literacy Education Professor Name Role Phone Yohan Barros DPM Unavailable [phone] Tamia Brooks MD Primary Care Provider [phone] Encounter Details Date Type Department Care Team (Late Contact Info) Description 02/20/2022 11:00 AM CYANIDE POT TENDER Immunization [facility] Internal Medicine [address] [place] [phone] Need for vaccination Social History Tobacco Use Types Packs/Day Years Used Date Smoking Tobacco: Former Cigarettes 0.2 12 0 03/10/1978 - 03/10/1990 Smokeless Tobacco: Never Alcohol Use Standard Drinks/Week Comments Yes 0 (1 standard drink = 0.6 oz pur e alcohol) occ PHQ-2 Answer Date Recorded PHQ2 TOTAL SCORE 0 02/20/2022 Sex and Gender Information Value Date Recorded Sex Assigned at Not on file Gender Identity Female 11/22/2016 11:14 AM CDT Sexual Orientation Not on file documented as of this encounter Plan of Treatment Upcoming Encounters Date Type Department Care Team (Late Contact Info) Description 06/29/2024 10:00 AM CDT Office Visit [facility] Internal Medicine [address] [place] [phone] Tamia Brooks MD [address] [place] [phone] documented as of this encounter Goals Goal Patient Goal Type Associated Problems Recent Progress Patient-Stated? Author Blood Pressure < 140/90 Blood Pressure 130/70( 024 1:19 PM CDT) Lola Serna MA documented as of this encounter Visit Diagnoses Diagnosis Need for vaccination- Primary Need for prophylactic vaccination and inoculation against unspecified single disease documented in this encounter Care Teams Literacy Education Professor Relationship Specialty Start Date End Date Tamia Brooks MD [address] [facility] [address] [place] [address] PCP - General Internal Medicine 07/26/16 Yohan Barros DPM [address] [phone] Podiatry 05/24/13 documented as of this encounter
--- OUTSIDE RECORDS SUMMARY | 2024-03-22 20:10 | XMS_ITS | Encounter Summary ---
Author Organization [facility] Address [address] [place] [address] Care Team Providers Care Roof Cement And Paint Maker Helper Name Role Phone Yohan Barros DPM Unavailable [phone] Tamia Brooks MD Primary Care Provider [phone] Tamia Brooks MD Unavailable [phone] Reason for Visit * Reason Onset Date Comments Outreach Preventive Care 12/11/2022 Encounter Details Date Type Department Care Team (Late st Contact Info) Description 12/11/2022 Patient Outreach [facility] Medical [facility] - Care Coordination [facility] [address] [address] Antoinette Carlton Outreach Preventive Care Social History Tobacco Use Types Packs/Day Years Used Date Smoking Tobacco: Former Cigarettes 0.2 12 0 03/10/1978 - 03/10/1990 Smokeless Tobacco: Never Alcohol Use Standard Drinks/Week Comments Yes 0 (1 standard drink = 0.6 oz pur e alcohol) occ PHQ-2 Answer Date Recorded PHQ2 TOTAL SCORE 0 09/11/2022 Sex and Gender Information Value Date Recorded Sex Assigned at Not on file Gender Identity Female 11/22/2016 11:14 AM CDT Sexual Orientation Not on file documented as of this encounter Miscellaneous Notes * Telephone Encounter - Antoinette Maier - 12/11/2022 3:58 PM CDT [employer] Gap Outreach Patient contact attempt regarding open care gaps. Outreach Attempt #: 1st of 3 Outreach Method: Cell phone Outreach Status: left message HM items to be addressed: AWV (Medicare/Medicare Advantage) and Urine Microalbumin HM STATUS: due now or within the next 30 days: Health Maintenance Due Topic Date Due ??? DTAP/TDAP/TD VACCINES (1 - Tdap) Never done ??? ZOSTER VACCINE (1 of 2) Never done ??? DIABETES-NEPHROPATHY 02/10/2021 ??? BONE DENSITY TESTING 03/17/2021 ??? DIABETES-SERUM CREATININE 01/12/2022 ??? DIABETES-FOOT EXAM WITH MONOFILAMENT 02/16/2022 ??? COVID-19 VACCINE (5 - Moderna series) 06/21/2022 ??? INFLUENZA VACCINE (1) 11/08/2022 Antoinette Maier 12/11/2022 3:58 PM documented in this encounter Plan of Treatment Upcoming Encounters Date Type Department Care Team (Late st Contact Info) Description 06/29/2024 10:00 AM CDT Office Visit [facility] Medical [facility] - Internal Medicine [address] [facility] [address] [place] [phone] Tamia Brooks MD [address] [place] [phone] documented as of this encounter Goals Goal Patient Goal Type Associated Problems Recent Progress Patient-Stated? Author Blood Pressure < 140/90 Blood Pressure 130/70( 024 1:19 PM CDT) Lola Serna MA documented as of this encounter Visit Diagnoses Not on filedocumented in this encounter Care Teams Roof Cement And Paint Maker Helper Relationship Specialty Start Date End Date Tamia Brooks MD [address] [place] [address] [place] [phone] PCP - General Internal Medicine 07/26/16 Tamia Brooks MD [address] [place] [address] [place] [phone] PCP - Attributed-MSSP 05/08/22 Yohan Barros, ZOYA [address] [place] [phone] Podiatry 05/24/13 documented as of this encounter
--- OUTSIDE RECORDS SUMMARY | 2024-03-22 20:10 | XMS_ITS | Encounter Summary ---
Author Organization [facility] Address [address] [place] [address] Care Team Providers Care Staying Machine Operator Name Role Phone Yohan Barros DPM Unavailable [phone] Tamia Brooks MD Primary Care Provider [phone] Tamia Brooks MD Unavailable [phone] Reason for Referral * Radiology Services (Routine) - Open Specialty Diagnoses / Procedures Referred By Contac t Referred To Contact Bone Densitometry Diagnoses Asymptomatic postmenopausal state Procedures Dexa Bone Density Axial Skeleton Tamia Brooks MD [address] [place] [phone] Referral ID Status Reason Start Date Expiration Date Visits Re quested Visits Authorized [id number] Open 11/18/2023 11/17/2024 1 1 Reason for Visit * Reason Comments Follow-up Encounter Details Date Type Department Care Team (Late st Contact Info) Description 11/18/2023 1:20 PM CDT Office Visit [facility] - Internal Medicine [address] [place] [address] [place] [phone] Tamia Brooks MD [address] [place] [phone] Benign essential hypertension (Primary Dx); Gastroesophageal reflux disease, unspecified whether esophagitis present; Mixed hyperlipidemia; Asymptomatic postmenopausal state; Stage 3b chronic kidney disease (HCC); Type 2 diabetes mellitus with stage 3a chronic kidney disease, without long-term current use of insulin (HCC); Class 1 obesity due to excess calories with serious comorbidity and body mass index (BMI) of 32.0 to 32.9 in adult; Chronic diastolic congestive heart failure (HCC); DAILY (obstructive sleep apnea); Primary osteoarthritis of both knees; Inguinal strain, right, initial encounter Social History Tobacco Use Types Packs/Day Years Used Date Smoking Tobacco: Former Cigarettes 0.2 12 0 03/10/1978 - 03/10/1990 Smokeless Tobacco: Never Tobacco Cessation:Counseling Given: Yes Alcohol Use Standard Drinks/Week Comments Yes 0 (1 standard drink = 0.6 oz pur e alcohol) occ PHQ-2 Answer Date Recorded Patient Health Questionnaire-2 Score 0 11/18/2023 Sex and Gender Information Value Date Recorded Sex Assigned at Not on file Gender Identity Female 11/22/2016 11:14 AM CDT Sexual Orientation Not on file documented as of this encounter Last Filed Vital Signs Vital Sign Reading Time Taken Comments Blood Pressure 130/70 11/18/2023 1:19 PM CDT Pulse 70 11/18/2023 1:19 PM CDT Temperature 37.2 ??C (98.9 ??F) 11/18/2023 1:19 PM CD T Respiratory Rate - - Oxygen Saturation 95% 11/18/2023 1:19 PM CDT Inhaled Oxygen Concentration - - Weight 89.2 kg (196 lb 9.6 oz) 11/18/2023 1:19 P M CDT Height 165.1 cm (5' 5 ) 11/18/2023 1:19 PM CDT Body Mass Index 32.72 11/18/2023 1:19 PM CDT documented in this encounter Progress Notes * Nancy Gracia MA - 11/18/2023 2:09 PM CDT Office Visit on 11/18/23 HEMOGLOBIN A1C - POINT OF CARE (HgbA1C) Result Value Ref Range Hemoglobin A1c POCT 6.4 % Expiration Date 07.10.25 Lot # [id number] QC Verified Yes Yes * Tamia Brooks MD - 11/18/2023 1:13 PM CDT Tamia Brooks MD [facility] - Department of Internal Medicine [facility] [facility], [address] [place] [phone] History of Present Illness Maura Watkins is a 73 year old female who presents to the office Chief Complaint Patient presents with Follow-up Here for follow up on chronic medical problems. She was gardening and twisted her R knee last week. She is now having pain into her ankle. Worsening sciatica pain. Using bengay and biofreeze. She is also taking aspirin PRN Deneis weakness of the knee Overall improving GERD - Denies any current issues - she did have dilation via GI - she is on PPI daily - sxs are overall good HTN/CKD3 - reports Dr. Baltazar raised her BP medication. - BP at home: not checking - medication compliance is good - dietary compliance is good - denies CP, SOB, LE edema BP Readings from Last 3 Encounters: 11/18/23 130/70 09/23/23 136/85 06/18/23 127/65 HLD - on statin - denies myalgias The 10-year ASCVD risk score (Houston DK, et al., 2019) is: 37.1% Values used to calculate the score: Age: 73 years Sex: Female Is Non- : No Diabetic: Yes Tobacco smoker: No Systolic Blood Pressure: 130 mmHg Is BP treated: Yes HDL Cholesterol: 43 mg/dL Total Cholesterol: 171 mg/dL DDD lumbar - more sciatica sxs -using biofreeze DAILY - saw Dr. Cadet - on CPAP nightly DM2 - diet controlled - not checking BG - a1c today 6.4% - gym has been closed for 1 mth - BG at home: not checking - hypoglycemia/symptoms: none - tests 1-2 per day - DM eye exam scheduled. Diet: Smaller portions, more veggies, and voss diet Exercise: not currently Sleep: is good. Wt Readings from Last 3 Encounters: 11/18/23 89.2 kg (196 lb 9.6 oz) 09/23/23 86.2 kg (190 lb) 06/18/23 88.4 kg (194 lb 12.8 oz) Weight change: lbs since the last visit here. Labs reviewed: Did them today. Recent Labs Component Name 09/23/23 1428 01/12/21 0920 02/11/20 0800 SODIUM 144 142 144 POTASSIUM 4.2 4.9 4.4 CHLORIDE 105 102 101 CO2 24 BUN 20 CREATININE 1.47* 1.35* 1.33* GLUCOSE 113* 111* 121* CALCIUM 10.2 9.8 10.1 Recent Labs Component Name 10/19/18 1120 09/26/16 0802 07/13/14 0847 TSH 2.210 2.080 2.060 Recent Labs Component Name 09/23/23 1428 01/12/21 0921 02/11/20 0800 WBC 9.1 7.2 5.9 HGB 13.4 12.8 13.4 HCT 43.1 37.8 40.4 PLTCOUNT 307 284 289 Recent Labs Component Name 11/18/23 1325 06/18/23 0940 09/11/22 1105 HGBA1C 6.4 5.9 6.6 Recent Labs Component Name 09/23/23 1428 01/12/21 0920 02/11/20 0800 CHOL 171 166 201* TRIG 199* 214* 196* HDL 43 39* 40 LDLCALC 88 91 126* No results for input(s): MICROALBUGML in the last 10601 hours. Recent Labs Component Name 09/23/23 1428 02/11/20 0800 MICROALBCREA 25 13 No results for input(s): INR in the last 43258 hours. Past Medical, Surgical, Social, and Family Histories Patient Active Problem List Diagnosis Date Noted PLMD (periodic limb movement disorder) 09/23/2023 Priority: Not Prioritized Diet-controlled diabetes mellitus (HCC) 08/30/2020 Priority: Not Prioritized Type 2 diabetes mellitus with stage 3 chronic kidney disease, without long-term current use of insulin (HCC) 10/23/2018 Priority: Not Prioritized Chronic diastolic congestive heart failure (HCC) 05/27/2017 Priority: Not Prioritized Echo 05/2017: ef 60%, grade 1 diastolic dysfunction, and elevated filling pressures Class 1 obesity due to excess calories with serious comorbidity and body mass index (BMI) of 31.0 to 31.9 in adult 05/13/2017 Priority: Not Prioritized DAILY on CPAP 11/22/2016 Priority: Not Prioritized Osteopenia 09/27/2016 Priority: Not Prioritized CKD (chronic kidney disease) stage 3, GFR 30-59 ml/min ([facility]) 06/23/2014 Component Latest Ref Rng & Units 02/11/2020 10/19/2018 eGFR by MDRD >59 mL/min/1.73 40 (L) 47 (L) GFR -, 3- Situational mixed anxiety and depressive disorder 01/17/2014 Primary osteoarthritis of both knees 10/27/2012 Prediabetes 10/27/2012 Anhydrotic dermatitis of foot 04/27/12 04/27/2012 Allergic rhinitis 09/20/2008 Hypertension, benign essential 09/20/2008 Hyperlipidemia 09/20/2008 I have reviewed PMH, FMH, and Social history. It is up to date and without changes unless noted below: Medication and Allergies Allergies Allergen Reactions Darvon Nausea and/or Vomiting and Dizziness Current Outpatient Medications Medication Sig Dispense Refill blood glucose test strip Use 1 (one) strip as directed 100 strip 0 calcium 600 MG tablet Take 2 (two) tablets by mouth daily with food Cetirizine HCl (ZYRTEC PO) Take by mouth nightly as needed Cholecalciferol (VITAMIN D-3) 1000 UNITS Take by mouth once daily glucosamine-chondroitin (GLUCOSAMINE CHONDR COMPLEX) 500-400 MG capsule Take 1 capsule by mouth once daily 30 capsule 5 lansoprazole (Prevacid) 15 MG capsule TAKE 1 TO 2 CAPSULES ONCE DAILY TO IMPROVE HEARTBURN SYMPTOMSFOR GASTROESOPHAGEAL REFLUX DISEASE 100 capsule 1 lisinopril (Prinivil; Zestril) 40 MG tablet Take 1 (one) tablet by mouth once daily 90 tablet 1 metoclopramide (Reglan) 10 MG tablet Take 1 (one) tablet by mouth 3 times daily before meals 90 tablet 4 rosuvastatin (Crestor) 10 MG tablet TAKE 1 TABLET DAILY 90 tablet 3 sucralfate (Carafate) 1 GM tablet Take 1 (one) tablet by mouth 4 times daily as needed 45 tablet 2 No current facility-administered medications for this visit. Immunization History Administered Date(s) Administered INFLUENZA VACCINE, TRIV. (AFLURIA, FLUZONE TRIVALENT; 6MO+) (IIV3) 11/17/2008, 01/10/2012, 01/13/2013, 12/05/2021 COVID PFIZER 12+YR 30MCG/0.3mL 12/05/2022 COVID PFIZER BIVALENT 12Y+ 30mcg/0.3ML 02/20/2022 Covid Moderna primary monovalent 12+ yr 0.5mL 05/01/2020, 05/29/2020 FLU VACCINE TRI IIV3 SPLIT PF IM (FLUVIRIN) 12/03/2017 FLU, HISTORIC VACCINE 12/30/2019, 01/18/2021 INFLUENZA 11/17/2008, 12/08/2009, 01/06/2011, 01/10/2012, 01/13/2013, 01/13/2013, 11/22/2013, 01/06/2015, 12/29/2015, 12/31/2018, 01/18/2021, 12/05/2022 INFLUENZA VACCINE, CELL CULTURE, QUADR. (FLUCELVAX QUADRIVALENT; 6MO+) (CCIIV4) 12/31/2021 INFLUENZA VACCINE, CELL CULTURE, TRIV. (FLUCELVAX TRIVALENT; 6MO+), 0.5 ML (CCIIV3) 12/03/2017 INFLUENZA VACCINE, HIGH-DOSE, QUADR. (FLUZONE HIGH-DOSE QUADRIVALENT; 65Y+), 0.7 ML (HD-IIV4) 01/06/2015, 12/29/2015, 12/31/2018, 12/30/2019 INFLUENZA VACCINE, HIGH-DOSE, TRIV. (FLUZONE HIGH-DOSE TRIVALENT; 65Y+) (HD- IIV3) 01/06/2015, 12/29/2015 MODERNA SARS-COV-2 COVID-19 VACCINE 0.25ML 01/18/2021 PNEUMOCOCCAL PPSV23 01/08/2010, 09/16/2016 Pneumococcal Pcv13 Conj 07/10/2015 RSV AREXVY 60YR+ 0.5ML 12/05/2022 Review of Systems As noted in HPI Physical Examination Vitals: 11/18/23 1319 BP: 130/70 Pulse: 70 Temp: 98.9 ??F (37.2 ??C) SpO2: 95% Weight: 89.2 kg (196 lb 9.6 oz) Height: 1.651 m (5' 5 ) CrCl cannot be calculated (Patient's most recent lab result is older than the maximum 15 days allowed.). . BMI Readings from Last 3 Encounters: 11/18/23 32.72 kg/m?? 09/23/23 31.62 kg/m?? 06/18/23 32.42 kg/m?? General appearance: alert and NAD SKIN: No suspicious lesions are noted on the exposed skin. EYES: Extraocular muscle movements are intact. Pupils are equal, round, and reactive to light. Conjunctiva are without significant erythema. HEENT: Auricles are intact without erythema. Hearing is intact to conversational tone. Tympanic membranes are intact without erythema on L. Cerumen impaction on R. Pharynx reveals no exudate. There is no erythema. NECK: No thyromegaly. No cervical adenopathy. No supraclavicular adenopathy. 2+ carotid pulsations.No carotid bruit. HEART: Regular rate and rhythm. No murmurs, rubs, or gallops are noted. No LE edema LUNGS: Clear to auscultation. No wheezes. No rales. No accessory muscle use. ABD: Bowel sounds are present. The abdomen is soft. There is no abdominal tenderness. No hepatosplenomegaly is appreciated. No bruit. No palpable aneurysm. Obese. Diastasis recti is noted. Psych: Ox3, mood normal Neuro: CN 2-12 intact MS: motor normal all 4 extrem. R knee crepitus. Mild joint effusion present. TTP along inner thigh. Assessment and Plan ICD-10-CM 1. Benign essential hypertension I10 CBC WITH DIFFERENTIAL COMPREHENSIVE METABOLIC PANEL 2. Gastroesophageal reflux disease, unspecified whether esophagitis present K21.9 lansoprazole (Prevacid) 15 MG capsule metoclopramide (Reglan) 10 MG tablet sucralfate (Carafate) 1 GM tablet 3. Mixed hyperlipidemia E78.2 rosuvastatin (Crestor) 10 MG tablet 4. Asymptomatic postmenopausal state Z78.0 Dexa Bone Density Axial Skeleton 5. Stage 3b chronic kidney disease (HCC) N18.32 CBC WITH DIFFERENTIAL COMPREHENSIVE METABOLIC PANEL VITAMIN D 25-HYDROXY 6. Type 2 diabetes mellitus with stage 3a chronic kidney disease, without long- term current use of insulin (HCC) E11.22 HEMOGLOBIN A1C N18.31 LIPID PROFILE REFLEX LDL DIRECT MICROALB/CREAT RATIO URINE RANDOM PANEL HEMOGLOBIN A1C - POINT OF CARE (HgbA1C) 7. Class 1 obesity due to excess calories with serious comorbidity and body mass index (BMI) of 32.0 to 32.9 in adult E66.09 TSH+FREE T4+FREE T3 Z68.32 8. Chronic diastolic congestive heart failure (HCC) I50.32 TSH+FREE T4+FREE T3 9. DAILY (obstructive sleep apnea) G47.33 10. Primary osteoarthritis of both knees M17.0 11. Inguinal strain, right, initial encounter S76.211A R knee pain/groin strain - new problem - mild - exercise handout given GERD .- controlled - continue same HTN/CKD3 - controlled - continue same HLD - controlled - continue same DDD lumbar - worsened by groin strain - exercise handout given DAILY - per Sleep med DM2 - controlled - continue same The above was discussed with the patient and understanding was voiced. Patient is in agreement withthe above plan HM: Health Maintenance Topic Date Due DTAP/TDAP/TD VACCINES (1 - Tdap) Never done ZOSTER VACCINE (1 of 2) Never done BONE DENSITY TESTING 03/17/2021 DIABETES-FOOT EXAM WITH MONOFILAMENT 02/16/2022 INFLUENZA VACCINE (1) 11/09/2023 COVID-19 VACCINE (2022- season) 2023 DIABETES-HGB A1C 05/17/2024 MEDICARE AWV - 12 MONTHS 06/17/2024 DIABETES-SERUM CREATININE 09/22/2024 DIABETES-NEPHROPATHY 09/22/2024 MAMMOGRAM 06/22/2025 DIABETES RETINOPATHY SCREENING 10/14/2025 Colorectal Cancer Screening 09/17/2033 PNEUMOCOCCAL VACCINE 65+ Completed HEPATITIS C SCREENING Completed DEPRESSION SCREENING Completed Respiratory Syncytial Virus (RSV) Vaccine Pt: or over 60 yrs Completed HEPATITIS B VACCINE Aged Out HIB VACCINE Aged Out HPV VACCINE Aged Out MENINGOCOCCAL VACCINE Aged Out Return to office: Return for 5-7 mths AWV (20 min) . or sooner if needed. documented in this encounter Plan of Treatment Upcoming Encounters Date Type Department Care Team (Late st Contact Info) Description 06/29/2024 10:00 AM CDT Office Visit [facility] - Internal Medicine [address] [place], [place] [phone] Tamia Brooks MD [address] [facility] [address] [place] [address] Scheduled Orders Name Type Priority Associated Diagnoses Orde r Schedule Dexa Bone Density Axial Skeleton Imaging Routine Asymptomatic postmenopausal state 1 Occurrences starting 11/18/2023 until 11/17/2024 CBC WITH DIFFERENTIAL Lab Routine Benign essential hypertension Stage 3b chronic kidney disease (HCC) Ordered: 11/18/2023 COMPREHENSIVE METABOLIC PANEL Lab Routine Benign essential hypertension Stage 3b chronic kidney disease (HCC) Ordered: 11/18/2023 HEMOGLOBIN A1C Lab Routine Type 2 diabetes mellitus with stage 3a chronic kidney disease, without long-term current use of insulin (HCC) Ordered: 11/18/2023 VITAMIN D 25-HYDROXY Lab Routine Stage 3b chronic kidney disease (HCC) Ordered: 11/18/2023 LIPID PROFILE REFLEX LDL DIRECT Lab Routine Type 2 diabetes mellitus with stage 3a chronic kidney disease, without long-term current use of insulin (HCC) Ordered: 11/18/2023 MICROALB/CREAT RATIO URINE RANDOM PANEL Lab Routine Type 2 diabetes mellitus with stage 3a chronic kidney disease, without long-term current use of insulin (HCC) Ordered: 11/18/2023 TSH+FREE T4+FREE T3 Lab Routine Class 1 obesity due to excess calories with serious comorbidity and body mass index (BMI) of 32.0 to 32.9 in adult Chronic diastolic congestive heart failure (HCC) Ordered: 11/18/2023 documented as of this encounter Goals Goal Patient Goal Type Associated Problems Recent Progress Patient-Stated? Author Blood Pressure < 140/90 Blood Pressure 130/70( 024 1:19 PM CDT) Lola Serna MA documented as of this encounter Procedures Procedure Name Priority Date/Time Associated Diagnosis Comments HEMOGLOBIN A1C - POINT OF CARE (AMB) Routine 11/18/2023 1:25 PM CDT Type 2 diabetes mellitus with stage 3a chronic kidney disease, without long-term current use of insulin (HCC) documented in this encounter Results * HEMOGLOBIN A1C - POINT OF CARE (HgbA1C) (11/18/2023 1:25 PM CDT) Hemoglobin A1c POCT 6.4 % [facility] Expiration Date 07.10.[address] [facility] [address] [facility] Lot # [id number] [facility] QC Verified Yes Yes [facility] Blood BLOOD SPECIMEN / Unknown 11/18/2023 1:25 PM CDT Tamia Brooks MD LAB - POINT OF CARE ORDERABLES [facility] [address] [place], [facility] [address] [phone] documented in this encounter Visit Diagnoses Diagnosis Benign essential hypertension- Primary Essential hypertension, benign Gastroesophageal reflux disease, unspecified whether esophagitis present Mixed hyperlipidemia Asymptomatic postmenopausal state Stage 3b chronic kidney disease (HCC) Type 2 diabetes mellitus with stage 3a chronic kidney disease, without long-term current use of insulin (HCC) Class 1 obesity due to excess calories with serious comorbidity and body mass index (BMI) of 32.0 to 32.9 in adult Chronic diastolic congestive heart failure (HCC) Chronic diastolic heart failure DAILY (obstructive sleep apnea) Obstructive sleep apnea (adult) (pediatric) Primary osteoarthritis of both knees Primary localized osteoarthrosis, lower leg Inguinal strain, right, initial encounter documented in this encounter Care Teams Staying Machine Operator Relationship Specialty Start Date End Date Tamia Brooks MD [address] [place] [address] PCP - General Internal Medicine 07/26/16 Tamia Brooks MD [address] [place] [address] PCP - Attributed-MSSP 05/08/22 Yohan Barros DPM [address] [place] [address] Podiatry 05/24/13 documented as of this encounter
--- OUTSIDE RECORDS SUMMARY | 2024-03-22 20:10 | XMS_ITS | Encounter Summary ---
Author Organization [facility] Address [address] [place] [address] Care Team Providers Care Chemistry Quality Control Analyst Name Role Phone Yohan Barros DPM Unavailable [phone] Tamia Brooks MD Primary Care Provider [phone] Tamia Brooks MD Unavailable [phone] Reason for Visit * Reason Onset Date Comments Dizziness 06/26/2022 Encounter Details Date Type Department Care Team (Late st Contact Info) Description 06/26/2022 Telephone [facility] - Internal Medicine [address] [facility] [address] [place], [place] [phone] [place] [address] [place] [address] [address] [place] [address] Dizziness Social History Tobacco Use Types Packs/Day Years [...] encounter Miscellaneous Notes * Telephone Encounter - Ayah Sharpe RN - 06/26/2022 1:20 PM CDT Called pt back to inform symptoms are likely benign paroxysmal positional vertigo Advised of scripts sent to pharmacy. Pt verbalizes understanding to take meclizine first and brick picker prednisone if symptoms are not relieved. All questions answered and pt agreed with plan of care. Ayah DAVIES * Telephone Encounter - Tamia Brooks MD - 06/26/2022 1:07 PM CDT Most likely vertigo, BPPV. Agree could be due to sinus issues. Try meclizine 1st. If no improvement. I sent a short course of prednisone. If symptoms fail to resolve altogether, please contact the office to make appointment. Orders Placed This Encounter ??? predniSONE (Deltasone) 20 MG tablet Sig: Take 1 (one) tablet by mouth once daily for 3 days Dispense: 3 tablet Refill: 0 ??? meclizine (Antivert) 25 MG tablet Sig: Take 1 (one) tablet by mouth 3 times daily as needed for Dizziness Dispense: 30 tablet Refill: 1 * Telephone Encounter - Ayah Sharpe RN - 06/26/2022 12:38 PM CDT Pt calling to report new onset of dizziness that started this morning. Dizziness is intermittent and only occurs with head movement. Pt initially thought she just got up out of bed too quickly. Went about her morning, had coffee, and went to go on her walk. Dizziness returned with walking Pt's checked BP and it was 143/83, pulse 72 Denies nausea/ vomiting, headache, blurry vision, chest pain, shortness of breath Pt took a Mucinex this morning when she woke up and first experienced the dizziness- pt thought it could be related to her sinuses. She denies having cold/flu symptoms (denies nasal congestion, fever, sore throat, cough, facial pain, earache) and reports her sinuses feel dry. Pt has taken all prescribed medication as directed and has not missed any doses. I recommended Mike maneuver in the meantime. Pt would like to know your recommendations. Please review and advise Ayah RN documented in this encounter Plan of Treatment Upcoming Encounters Date Type Department Care Team (Late st Contact Info) Description 06/29/2024 10:00 AM CDT Office Visit [facility] - Internal Medicine [address] [facility] [address] [place] [address] [place] [address] [place] [phone] documented as of this encounter Goals Goal Patient Goal Type Associated Problems Recent Progress Patient-Stated? Author Blood Pressure < 140/90 Blood Pressure 130/70( 024 1:19 PM CDT) No Lola Neff MA documented as of this encounter Visit Diagnoses Not on filedocumented in this encounter Care Teams Chemistry Quality Control Analyst Relationship Specialty Start Date End Date Tamia Brooks MD [address] [place] [phone] PCP - General Internal Medicine 07/26/16 Tamia Brooks MD [address] [place] [phone] PCP - Attributed-MSSP 05/08/22 Yohan Barros DPM [address] [place] [address] [place] [phone] Podiatry 05/24/13 documented as of this encounter
--- OUTSIDE RECORDS SUMMARY | 2024-03-22 20:10 | XMS_ITS | Encounter Summary ---
Author Organization [facility] Address [address] [place] [address] Care Team Providers Care Welder/Fitter Name Role Phone Yohan Barros DPM Unavailable [phone] Tamia Brooks MD Primary Care Provider Deric Dudley Unavailable Tamia Brooks MD Unavailable [phone] Reason for Visit * Reason Onset Date Comments Refill Request 06/11/2023 Encounter Details Date Type Department Care Team (Late st Contact Info) Description 06/11/2023 Telephone [facility] - Internal Medicine [address] [place] [id number] Tamia Brooks MD [address] [place] [phone] Refill Request Social History Tobacco Use Types Packs/Day Years Used Date Smoking Tobacco: Former Cigarettes 0.2 12 0 03/10/1978 - 03/10/1990 Smokeless Tobacco: Never Alcohol Use Standard Drinks/Week Comments Yes 0 (1 standard drink = 0.6 oz pur e alcohol) occ PHQ-2 Answer Date Recorded Patient Health Questionnaire-2 Score 0 06/18/2023 Sex and Gender Information Value Date Recorded Sex Assigned at Not on file Gender Identity Female 11/22/2016 11:14 AM CDT Sexual Orientation Not on file documented as of this encounter Miscellaneous Notes * Telephone Encounter - Ayah Sharpe RN - 06/11/2023 12:50 PM CDT Pt and agreed with UC/ ER states pt's BP was 159/72 yesterday, HR 83 - he is asking about Lisinopril and why that was not refilled when they asked Tamia Brooks MD ?? 05/05/23 ??5:43 PM As of last OV BP on the lower end and I did not have her on those meds. Hold off on refills for now. Let's discuss at next OV If she can make it this week, I have an 840 wed or 4 pm on Friday. Can move visit up. Tamia Brooks MD 05/05/2023 5:43 PM Pt will follow up after UC and have records faxed to office Appt with Dr. Brooks 06/18/2023 Ayah RN * Telephone Encounter - Barbra Chung APRN-CNP - 06/11/2023 12:30 PM CDT Patient should go to UC/ER for evaluation/tx and to rule out angina today, since she has chronic GERD. Looks like Dr. Brooks referred her to gastroenterology on 05/09/2023 for same problem-recommend shefollow up with them. She likely will need an upper EGD. Can take OTC antacids with carafate and avoid food triggers until she can be seen by Dr. Brooks. * Telephone Encounter - Ayah Sharpe RN - 06/11/2023 10:37 AM CDT Pt calling to report her acid reflux is worsening and current medications are not helping Belching acidic fluid, pain from indigestion - denies true chest pain Has taken Carafate, Prevacid, Pepcid, & Prilosec with no relief Requesting recommendation/ new Rx Has appt next week on 06/18/23 Pharmacy verified and allergies reviewed Please review and advise, thank you Ayah RN * Telephone Encounter - Yara Penn MA - 06/11/2023 10:29 AM CDT Pt having pain documented in this encounter Plan of Treatment Upcoming Encounters Date Type Department Care Team (Late st Contact Info) Description 06/29/2024 10:00 AM CDT Office Visit [facility] - Internal Medicine [address] [place] [phone] Tamia Brooks MD [address] [place] [address] [place] [phone] documented as of this encounter Goals Goal Patient Goal Type Associated Problems Recent Progress Patient-Stated? Author Blood Pressure < 140/90 Blood Pressure 130/70( 024 1:19 PM CDT) No Lola Neff MA documented as of this encounter Visit Diagnoses Not on filedocumented in this encounter Care Teams Welder/Fitter Relationship Specialty Start Date End Date Tamia Brooks MD [facility] [phone] PCP - General Internal Medicine 07/26/16 Tamia Brooks MD [address] [place] [phone] PCP - Attributed-MSSP 05/08/22 Yohan Barros DPM [facility] AR[place]ELLA RYAN [address] [phone] Podiatry 05/24/13 Deirc Dudley Care Coordination Specialist Care Management 06/26/23 06/26/23 documented as of this encounter
--- OUTSIDE RECORDS SUMMARY | 2024-03-22 20:10 | XMS_ITS | Patient Health Summary ---
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 [facility] INSURANCE BILL Microalbumin Urine 3.5 mg/dL [facility] INSURANCE BILL Microalbumin/Crea tinine Ratio 25 <30 mg/g [facility] INSURANCE BILL Urine URINE SPECIMEN OBTAINED BY CLEAN CATCH PROCEDURE / Unknown 09/23/2023 2:28 PM CDT 09/23/2023 Narrative Resulting Agency Comment Lab Testing performed at: [address] ??[facility] [phone] Tamia Brooks MD LAB - URINE CHEMISTR Y ORDERABLES Performing Organization Address [facility] de Phone Number [facility] INSURANCE BILL [address] [place] [address] * VITAMIN D 25-HYDROXY (09/23/2023 2:28 PM CDT) Only the most recent of9 resultswithin the time period is included. [facility] Vitamin D, 25 Hydroxy 73.3 30 - 80 ng/mL [facility] INSURANCE BILL Comment: Vitamin D Status: ?Deficiency ? <20 ? ng/mL ?Insufficiency ?? 20-30 ??ng/mL ?Sufficiency ? 30-100 ng/mL ?Toxicity ? >100 ?ng/mL Blood BLOOD SPECIMEN / Unknown 09/23/2023 2:28 PM CDT 09/23/2023 Narrative Resulting Agency Comment Lab Testing performed at: [address] ??[facility] [phone] Tamia Brooks MD LAB - CHEMISTRY ORDE RABLES Performing Organization Address [facility] de Phone Number [facility] INSURANCE BILL [address] [place] [address] * (ABNORMAL) CBC WITH DIFFERENTIAL (09/23/2023 2:28 PM CDT) Only the most recent of12 resultswithin the time period is included. [facility] WBC 9.1 4.0 - 10.7 x10E9/L [facility] INSURANCE BILL RBC 4.76 3.90 - 5.20 x10E12/L [facility] INSURANCE BILL Hemoglobin 13.4 11.9 - 15.8 g/dL [facility] INSURANCE BILL Hematocrit 43.1 34.8 - 46.1 % [facility] INSURANCE BILL MCV 90.5 80.0 - 98.0 fL [facility] INSURANCE BILL MCH 28.2 26.7 - 33.6 pg [facility] INSURANCE BILL MCHC 31.1(L) 31.7 - 36.3 g/dL [facility] INSURANCE BILL RDW 12.8 11.3 - 14.8 % [facility] INSURANCE BILL Platelet Count 307 150 - 420 x10E9/L [facility] INSURANCE BILL Comment:MPV (CS) 11.8 fL 7.8 -11.4 H Granulocytes % 61.8 41.0 - 74.0 % [facility] INSURANCE BILL Lymphocytes % 23.4 17.0 - 47.0 % [facility] INSURANCE BILL Monocytes % 9.0 3.0 - 11.0 % [facility] INSURANCE BILL Eosinophils % 3.9 0.0 - 7.0 % [facility] INSURANCE BILL Basophils % 1.6 0.0 - 1.6 % [facility] INSURANCE BILL Granulocytes Absolute 5.64 1.60 - 7.50 x10E9/L [facility] INSURANCE BILL Lymphocytes Absolute 2.14 1.00 - 4.40 x10E9/L [facility] INSURANCE BILL Monocytes Absolute 0.82 0.15 - 1.00 x10E9/L [facility] INSURANCE BILL Eosinophils Absolute 0.36 0.00 - 0.60 x10E9/L [facility] INSURANCE BILL Basophils Absolute 0.15(H) 0.00 - 0.13 x10E9/L [facility] INSURANCE BILL Immature Granulocytes 0.3 0.0 - 1.0 % [facility] INSURANCE BILL Blood BLOOD SPECIMEN / Unknown 09/23/2023 2:28 PM CDT 09/23/2023 Narrative Resulting Agency Comment Lab Testing performed at: [facility] [address] [place] [address] ??[facility] [phone] Tamia Brooks MD LAB - HEMATOLOGY ORD ERABLES [facility] INSURANCE BILL [address] [place] [address] * (ABNORMAL) COMPREHENSIVE METABOLIC PANEL (09/23/2023 2:28 PM CDT) Only the most recent of10 resultswithin the time period is included. Glucose 113(H) 70 - 105 mg/dL [facility] INSURANCE BILL BUN 19 7 - 26 mg/dL [facility] INSURANCE BILL Creatinine 1.47(H) 0.57 - 1.11 mg/dL [facility] INSURANCE BILL eGFR by CKD-EPI 37(L) >=90 mL/min/1.7 3 m2 [facility] INSURANCE BILL Sodium 144 136 - 145 mmol/L [facility] INSURANCE BILL Potassium 4.2 3.5 - 5.1 mmol/L [facility] INSURANCE BILL Chloride 105 98 - 107 mmol/L [facility] INSURANCE BILL CO2 25 22 - 29 mmol/L [facility] INSURANCE BILL Calcium 10.2 8.4 - 10.4 mg/dL [facility] INSURANCE BILL Protein Total 7.2 6.4 - 8.3 gm/dL [facility] INSURANCE BILL Albumin 4.2 3.4 - 5.0 gm/dL [facility] INSURANCE BILL Bilirubin Total 0.3 0.2 - 1.2 mg/dL [facility] INSURANCE BILL Alkaline Phosphatase 118 40 - 150 U/L [facility] INSURANCE BILL AST 23 5 - 34 U/L [facility] INSURANCE BILL ALT 27 0 - 55 U/L [facility] INSURANCE BILL Blood BLOOD SPECIMEN / Unknown 09/23/2023 2:28 PM CDT 09/23/2023 Narrative Resulting Agency Comment Lab Testing performed at: [address] ??[facility] [phone] Tamia Brooks MD LAB - CHEMISTRY PREETI COSTA [facility] Organization Address City/State/ZIP Co de Phone Number [facility] INSURANCE BILL [address] [place] [address] * FERRITIN (09/23/2023 2:28 PM CDT) Ferritin 80 5 - 204 ng/mL [facility] INSURANCE BILL Blood BLOOD SPECIMEN / Unknown 09/23/2023 2:28 PM CDT 09/23/2023 Narrative Resulting Agency Comment Lab Testing performed at: [address] ??[facility] [phone] Truong Cadet MD LAB - CHEMISTRY PREETI COSTA [facility] INSURANCE BILL [address] [place] [address] * COLONOSCOPY (09/18/2023) 09/18/2023 Narrative 09/18/2023 Ordered by an unspecified provider. Scanned Document SCANNING ONLY * ENDOSCOPY ORDER (09/18/2023) 09/18/2023 Narrative 09/18/2023 Ordered by an unspecified provider. Scanned Document GI PROCEDURE ORDERAB LES * MAMMO BILAT SCREENING W TEJ (06/23/2023) Anatomical Region Laterality Modality Breast Bilateral Mammography 06/23/2023 Tamia Brooks MD MAMMO ORDERABLES * SARS-COV-2 (COVID-19) AG (AMB) POCT (08/20/2022 11:30 AM CDT) SARS-CoV-2 Ag Negative [address] [facility] Lot # [id number] [facility] Expiration Date 09/06/[address] [facility] Instrument Serial Number n/a [facility] COVID Internal Control Acceptable Acceptable [facility] Microbiology SPECIMEN FROM NASAL FOSSAE / Unknown 08/20/2022 11:30 AM CDT Tamia Brooks MD LAB - POINT OF CARE ORDERABLES [facility] [address] [phone] * STREP A SCREEN - POINT OF CARE (AMB) (08/20/2022 11:25 AM CDT) Strep A Rapid POCT Negative Negative [facility] Strep A Internal Control Present [facility] Other ENTIRE THROAT (SURFACE REGION OF NECK) / Unknown 08/20/2022 11:25 AM CDT Tamia Brooks MD LAB - POINT OF CARE ORDERABLES [facility] [address] [phone] * EYE EXAM (06/18/2022) Anatomical Region Laterality Modality Other 06/18/2022 Narrative 06/18/2022 Ordered by an unspecified provider. Scanned Document SCANNING ONLY * MAMMOGRAM (06/10/2022) Anatomical Region Laterality Modality Other 06/10/2022 Narrative 06/10/2022 Ordered by an unspecified provider. Scanned Document SCANNING ONLY * MRI CERVICAL SPINE WO CONTRAST (10/04/2021) Anatomical Region Laterality Modality Pelvis Magnetic Resonan ce 10/04/2021 Tamia Brooks MD MR ORDERABLES * XR CERVICAL SPINE 2 OR 3VW (09/21/2021) Anatomical Region Laterality Modality Spine Other 09/21/2021 Tamia Brooks MD DIAGNOSTIC IMAGING O RDERABLES * XR CHEST 2VW (03/29/2021 1:23 PM HANDBAG FRAMER) Only the most recent of2 resultswithin the time period is included. Anatomical Region Laterality Modality Chest Radiographic Aimee ging 03/29/2021 1:45 PM HANDBAG FRAMER Narrative 03/29/2021 1:59 PM HANDBAG FRAMER CHEST 2 VIEW HISTORY: Cough and shortness of breath. Since 05/10/2019, there has been no change on the heart size or the mediastinal contours. The pulmonary vascularity and antonia are normal. The lungs are clear. The soft tissues and bony thorax are stable. DIAGNOSIS: No acute cardiopulmonary disease. Edited by Ese Baldwin on 03/29/2021 1:58 PM *Reading Radiologist: Jamie Oconnor on 03/29/2021 at 1:59 PM Procedure Note Jamie Oconnor MD - 03/29/2021 CHEST 2 VIEW HISTORY: Cough and shortness of breath. Since 05/10/2019, there has been no change on the heart size or the mediastinal contours. The pulmonary vascularity and antonia are normal. The lungs are clear. The soft tissues and bony thorax are stable. DIAGNOSIS: No acute cardiopulmonary disease. Edited by Ese Baldwin on 03/29/2021 1:58 PM *Reading Radiologist: Jamie Oconnor on 03/29/2021 at 1:59 PM Tamia Brooks MD DIAGNOSTIC IMAGING O RDERABLES * (ABNORMAL) BASIC METABOLIC PANEL (BMP) (01/12/2021 9:20 AM CDT) Only the most recent of5 resultswithin the time period is included. Glucose 111(H) 65 - 99 mg/dL [facility] INSURANCE BILL BUN 27 8 - 27 mg/dL [facility] INSURANCE BILL Creatinine 1.35(H) 0.57 - 1.00 mg/dL [facility] INSURANCE BILL eGFR by MDRD 39(L) >59 mL/min/1. 73 [facility] INSURANCE BILL eGFR by MDRD 45(L) >59 mL/min/1. 73 [facility] INSURANCE BILL Comment: In accordance with recommendations from the NKF-ASN Task force, [facility] the [facility] its eGFR calculation to the ??2020 CKD-EPI creatinine equation that estimates kidney function ??without a race variable. BUN/Creatinine Ratio 20 12 - 28 [facility] INSURANCE BILL Sodium 142 134 - 144 mmol/L [facility] INSURANCE BILL Potassium 4.9 3.5 - 5.2 mmol/L [facility] INSURANCE BILL Chloride 102 96 - 106 mmol/L [facility] INSURANCE BILL CO2 25 20 - 29 mmol/L [facility] INSURANCE BILL Calcium 9.8 8.7 - 10.3 mg/dL [facility] INSURANCE BILL Comment:FASTING Blood BLOOD SPECIMEN / Unknown 01/12/2021 9:20 AM CDT 01/12/2021 Narrative Resulting Agency Comment Lab Testing performed at: [facility] ??[facility] [phone] Tamia Brooks MD LAB - CHEMISTRY PREETI COSTA [facility] INSURANCE BILL [address] [place] [address] * (ABNORMAL) LIPID PROFILE (LIPID PANEL) (01/12/2021 9:20 AM CDT) Only the most recent of12 resultswithin the time period is included. Cholesterol 166 100 - 199 mg/dL [facility] INSURANCE BILL Triglycerides 214(H) 0 - 149 mg/dL [facility] INSURANCE BILL HDL Cholesterol 39(L) >39 mg/dL [facility] INSURANCE BILL VLDL Calculated 36 5 - 40 mg/dL [facility] INSURANCE BILL LDL Calculated 91 0 - 99 mg/dL [facility] INSURANCE BILL Comment NOT NEEDED [facility] INSURANCE BILL Comment: FASTING Ancillary determined the test is not needed. Blood BLOOD SPECIMEN / Unknown 01/12/2021 9:20 AM CDT 01/12/2021 Narrative Resulting Agency Comment Lab Testing performed at: [address] ??[facility] [phone] Tamia Brooks MD LAB - CHEMISTRY PREETI COSTA [facility] INSURANCE BILL [address] [place] [address] * (ABNORMAL) [facility] COVID PCR (10/01/2019 4:58 PM CDT) COVID-19 PCR Detected( AA) Not detected, Invalid 10/02/2019 12:35 PM CDT [facility] MICROBIOLOGY Microbiology SPECIMEN FROM NASOPHARYNGEAL STRUCTURE / Unknown Collection / Unknown 10/01/2019 4:58 PM CDT 10/01/2019 4:58 PM CDT Narrative [facility] MICROBIOLOGY - 10/02/2019 12:35 PM CDT This nucleic acid amplification assay performance was validated by [facility]. This test has been authorized by the Food and Drug administration (FDA)under an Emergency??Use Authorization (EUA). This test has been validated in accordance with the FDA's guidance document Policy for Diagnostic Testing in Laboratories Certified to perform High Complexity Testing under CLIA prior to Emergency Use Authorization for Coronavirus Disease-2019 during the Public Health Emergency issued on May 08, 2019. FDA independent review of this validation is pending. This test is only authorized for the duration of time the declaration that circumstances exist justifying the authorization of emergency use of in vitro diagnostic tests for detection of SARS-CoV-2 virus and/or diagnosis of COVID-19 infection under section 564(b)(1) of the Act, 21 U.S.C 360bbb-3 (b)(1), unless the authorization is terminated or revoked sooner. This nucleic acid amplification assay performance was validated by [facility]. This test has been authorized by the Food and Drug administration (FDA)under an Emergency??Use Authorization (EUA). This test has been validated in accordance with the FDA's guidance document Policy for Diagnostic Testing in Laboratories Certified to perform High Complexity Testing under CLIA prior to Emergency Use Authorization for Coronavirus Disease-2019 during the Public Health Emergency issued on May 08, 2019. FDA independent review of this validation is pending. This test is only authorized for the duration of time the declaration that circumstances exist justifying the authorization of emergency use of in vitro diagnostic tests for detection of SARS-CoV-2 virus and/or diagnosis of COVID-19 infection under section 564(b)(1) of the Act, 21 U.S.C 360bbb-3 (b)(1), unless the authorization is terminated or revoked sooner. Please recollect if clinically necessary. Tamia Brooks MD LAB - MICROBIOLOGY O RDERABLES [facility] [address] [place], [place] [address], [facility] [phone] * DEXA BONE DENSITY AXIAL SKELETON (03/17/2019 10:46 AM HANDBAG FRAMER) Only the most recent of2 resultswithin the time period is included. Anatomical Region Laterality Modality Nuclear Medicine 03/17/2019 10:5 0 AM HANDBAG FRAMER Impressions 03/17/2019 10:53 AM HANDBAG FRAMER Osteopenia of the hips. Normal bone mineral density of the lumbar spine. WORLD HEALTH ORGANIZATION DEFINITIONS NORMAL= T-Score at or above -1.0 SD OSTEOPENIA = T-Score between -1 and -2.5 SD OSTEOPOROSIS = T-Score at or below -2.5 SD Reading Radiologist: Kiki Mireles MD on 03/17/2019 at 10:53 AM Narrative 03/17/2019 10:53 AM HANDBAG FRAMER BONE MINERAL DENSITY STUDY: INDICATION: ??68-year-old for osteoporosis screening. FINDINGS: Comparison is made to prior exam from 09/27/2016. The mean bone mineral content of the lumbar spine is 1.227 g/cm2 and T-score 0.4, consistent with normal bone mineral density (previously 1.243 g/cm2 and T-score was 0.5). The mean bone mineral content of the left femoral neck is 0.815 g/cm2 and T-score -1.6, consistent with osteopenic bone mineral density (previously 0.758 g/cm2 and T-score was -2.0). The mean bone mineral content of the left total hip is 0.895 g/cm2 and T-score -0.9, consistent with normal bone mineral density (previously 0.848 g/cm2 and T-score was -1.3). The mean bone mineral content of the right femoral neck is 0.843 g/cm2 and T-score -1.4, consistent with osteopenic bone mineral density (previously 0.840 g/cm2 and T-score was -1.4). The mean bone mineral content of the right total hip is 0.907 g/cm2 and T-score -0.8, consistent with normal bone mineral density (previously 0.895 g/cm2 and T-score was -0.9). FRAX 10 year fracture risk Major osteoporotic fracture: 10.2% Hip fracture: 1.6% Procedure Note Kiki Mireles, - 03/17/2019 BONE MINERAL DENSITY STUDY: INDICATION: 68-year-old for osteoporosis screening. FINDINGS: Comparison is made to prior exam from 09/27/2016. The mean bone mineral content of the lumbar spine is 1.227 g/cm2 and T-score 0.4, consistent with normal bone mineral density (previously 1.243 g/cm2 and T-score was 0.5). The mean bone mineral content of the left femoral neck is 0.815 g/cm2 and T-score -1.6, consistent with osteopenic bone mineral density (previously 0.758 g/cm2 and T-score was -2.0). The mean bone mineral content of the left total hip is 0.895 g/cm2 and T-score -0.9, consistent with normal bone mineral density (previously 0.848 g/cm2 and T-score was -1.3). The mean bone mineral content of the right femoral neck is 0.843 g/cm2 and T-score -1.4, consistent with osteopenic bone mineral density (previously 0.840 g/cm2 and T-score was -1.4). The mean bone mineral content of the right total hip is 0.907 g/cm2 and T-score -0.8, consistent with normal bone mineral density (previously 0.895 g/cm2 and T-score was -0.9). FRAX 10 year fracture risk Major osteoporotic fracture: 10.2% Hip fracture: 1.6% IMPRESSION Osteopenia of the hips. Normal bone mineral density of the lumbar spine. WORLD HEALTH ORGANIZATION DEFINITIONS NORMAL= T-Score at or above -1.0 SD OSTEOPENIA = T-Score between -1 and -2.5 SD OSTEOPOROSIS = T-Score at or below -2.5 SD Reading Radiologist: Kiki Mireles MD on 03/17/2019 at 10:53 AM Tamia Brooks MD DEXA ORDERABLES * HM DIABETES EYE EXAM (12/07/2018) Scanned Document HEALTH MAINTENANCE * TSH HI LOW REFLEX FREE T4 (10/19/2018 11:20 AM CDT) Only the most recent of2 resultswithin the time period is included. TSH 2.210 0.450 - 4.500 uIU/mL [facility] INSURANCE BILL Blood BLOOD SPECIMEN / Unknown 10/19/2018 11:20 AM CDT 10/19/2018 Narrative Resulting Agency Comment Lab Testing performed at: [facility] [address] ??[facility] [phone] Tamia Brooks MD LAB - CHEMISTRY PREETI COSTA Performing Organization Address [facility] de Phone Number [facility] INSURANCE BILL [address] [place] [address] * PTH INTACT (10/19/2018 11:20 AM CDT) Only the most recent of2 resultswithin the time period is included. PTH Intact 26 15 - 65 pg/mL [facility] INSURANCE BILL Blood BLOOD SPECIMEN / Unknown 10/19/2018 11:20 AM CDT 10/19/2018 Narrative [facility] INSURANCE BILL - 10/20/2018 5:07 PM CDT A courtesy copy of this report has been sent to Derek Baltazar MD. Resulting Agency Comment Lab Testing performed at: [facility] [address] ??[facility] [phone] Tamia Brooks MD LAB - CHEMISTRY PREETI COSTA Performing Organization Address [facility] de Phone Number [facility] INSURANCE BILL [address] [place] [address] * (ABNORMAL) HEMOGLOBIN A1C (10/19/2018 11:20 AM CDT) Only the most recent of4 resultswithin the time period is included. Hemoglobin A1c 6.5(H) 4.8 - 5.6 % [facility] INSURANCE BILL Comment: ? . ? Prediabetes: 5.7 - 6.4 ? Diabetes: >6.4 ? Glycemic control for adults with diabetes: <7.0 Blood BLOOD SPECIMEN / Unknown 10/19/2018 11:20 AM CDT 10/19/2018 Narrative Resulting Agency Comment Lab Testing performed at: [facility] [address] ??[facility] [phone] Tamia Brooks MD LAB - CHEMISTRY PREETI COSTA [facility] INSURANCE BILL [address] [place] [address] * AMB REFERRAL TO BREAST SURGERY (08/01/2018 10:29 PM CDT) Tamia Brooks MD OUTPATIENT REFERRALS * MAMMO LEFT DIAGNOSTIC (04/29/2018) Anatomical Region Laterality Modality Breast Left Mammography Tamia Brooks MD MAMMO ORDERABLES * LAB RESULTS ORDER (04/12/2018) Provider Unknown LAB - THERAPEUTIC DR LINK MONITORING ORDERABLES * COMP MET PANEL (EXTERNAL RESULT ENTRY) (04/11/2018) Glucose (EXTERNAL) 113 mg/dL Sodium (EXTERNAL RESULT) 142 mmol/L Potassium (EXTERNAL RESULT) 4.5 mmol/L Chloride (EXTERNAL RESULT) 104 mmol/L CO2 (EXTERNAL) 22 mmol/L Calcium (EXTERNAL RESULT) 9.8 mg/dL Anion Gap (EXTERNAL RESULT) mmol/L BUN (EXTERNAL RESULT) 18 mg/dL Creatinine (EXTERNAL RESULT) 1.16 mg/dl Alkaline Phosphatase (EXTERNAL RESULT) 3.5 U/L ALT (EXTERNAL RESULT) U/L AST (EXTERNAL RESULT) U/L Protein Total (EXTERNAL RESULT) gm/dL Albumin (EXTERNAL RESULT) 4.6 gm/dL Bilirubin Total (EXTERNAL RESULT) mg/dL eGFR MDRD (EXTERNAL RESULT) 48 mL/min/1.7 3m2 eGFR (EXTERNAL) 55 mL/min/1.7 3m2 Blood BLOOD SPECIMEN / Unknown 04/11/2018 Historical Provider LAB - CHEMISTRY O RDERABLES * IMAGING/RADIOLOGY/XRAY RESULTS ORDER (06/24/2017) Only the most recent of2 resultswithin the time period is included. Anatomical Region Laterality Modality Other Scanned Document IMAGING * ECHOCARDIOGRAM 2D WITH DOPPLER (05/23/2017 8:21 AM CDT) 05/23/2017 8:[address] [facility] - 05/23/2017 5:23 PM CDT [facility] [place] at [address] [place] [address] Transthoracic Echocardiogram 2D, M-mode, Doppler, and Color Doppler Patient: MAURA WATKINS MR number: [id number] Height: 65 in Weight: 186.6 lb BSA: 1.92 m?? Study date: 23-May-2017 : 1950 Age: 67 years Gender: Female Race: Allergies: DARVON Cpht: ??Faiza Mcgrath, [facility], RVT Referring Physician: ??Tamia Brooks MD Reading Physician: ??Madhu Richards MD Summary: - ??Left ventricle: - ??Systolic function was normal. Ejection fraction was estimated to be 65 %. - ??There were no regional wall motion abnormalities. - ??Wall thickness was normal. - ??Doppler parameters were consistent with abnormal left ventricular relaxation (grade 1 diastolic dysfunction). - ??Doppler parameters were consistent with high ventricular filling pressure. Indications: Assess edema of lower extremities. History: Prior history: Patient has no history of cardiovascular disease. Risk factors: hypertension and medication-treated hypercholesterolemia. Procedure: The study was performed in the [facility]. The transthoracic approach was used. The study included complete 2D imaging, M-mode, complete spectral Doppler, and color Doppler. Systolic blood pressure was 122 mmHg. Diastolic blood pressure was 72 mmHg. Intravenous contrast (Definity) was administered. Image quality was adequate. Left ventricle: Size was normal. Systolic function was normal. Ejection fraction was estimated to be 65 %. There were no regional wall motion abnormalities. Wall thickness was normal. Doppler: Doppler parameters were consistent with abnormal left ventricular relaxation (grade 1 diastolic dysfunction). Doppler parameters were consistent with high ventricular filling pressure. Aortic valve: The valve was trileaflet. Leaflets exhibited normal thickness and normal cuspal separation. Doppler: There was no stenosis. There was no regurgitation. Aorta: The root exhibited normal size. Mitral valve: Valve structure was normal. There was normal leaflet separation. Doppler: The transmitral velocity was within the normal range. There was no evidence for stenosis. There was no regurgitation. Left atrium: Size was normal. Right ventricle: The size was normal. Systolic function was normal. Wall thickness was normal. Doppler: Systolic pressure was within the normal range. Estimated peak pressure was 25 mmHg. Pulmonic valve: Not well visualized. Doppler: There was no regurgitation. Pulmonary artery: The size was normal. Doppler: Systolic pressure was within the normal range. Tricuspid valve: The valve structure was normal. There was normal leaflet separation. Doppler: The transtricuspid velocity was within the normal range. There was no evidence for tricuspid stenosis. There was trivial regurgitation. Right atrium: Size was normal. Systemic veins: IVC: The inferior vena cava was normal in size. Pericardium: The pericardium was normal in appearance. Measurement tables 2D measurements Systemic veins ?? (Reference normals) Prox IVC diam ?? 14 mm ?? (03-01) System measurement tables 2D Ao Diam: 2.8 cm LVOT Diam: 1.8 cm LA Diam: 3.5 cm LAEDV Index (A-L): 20.5 ml/m2 LAEDV(A-L): 39.3 ml IVSd: 1.2 cm LVIDd: 4.1 cm LVIDs: 2.2 cm LVPWd: 0.8 cm CW AV VTI: 42 cm AV Vmax: 1.7 m/s AV Vmean: 1.2 m/s AV maxP mmHg AV meanP.9 mmHg MV PHT: 133.8 ms MV VTI: 53.5 cm MV Vmax: 1.6 m/s MV Vmean: 0.8 m/s MV maxP mmHg MV meanP.5 mmHg MVA By PHT: 1.6 cm2 PV Vmax: 0.9 m/s PV maxP.2 mmHg TR Vmax: 2.4 m/s MM TAPSE: 1.7 cm PW AUGUSTO (VTI): 1.5 cm2 A[place]O Vmax: 1.7 cm2 LVOT VTI: 24.4 cm LVOT Vmax: 1.1 m/s LVOT Vmean: 0.7 m/s LVOT maxP.1 mmHg LVOT meanP.6 mmHg MV E/A Ratio: 0.8 LATERAL E': 0.1 m/s LATERAL E/E': 20.4 SEPTAL E': 0.1 m/s SEPTAL E/E': 25.5 Prepared and signed by Madhu Richards MD Signed 23-May-2017 17:23:08 Procedure Note Madhu Richards MD - 05/23/2017 [facility] [place] [address] Transthoracic Echocardiogram 2D, M-mode, Doppler, and Color Doppler Patient: MAURA WATKINS MR number: [id number] Height: 65 in Weight: 186.6 lb BSA: 1.92 m?? Study date: 23-May-2017 : 1950 Age: 67 years Gender: Female Race: Allergies: DARVON Cpht: Faiza Mcgrath RDCS, T Referring Physician: Tamia Brooks MD Reading Physician: Madhu Richards MD Summary: - Left ventricle: - Systolic function was normal. Ejection fraction was estimated to be 65 %. - There were no regional wall motion abnormalities. - Wall thickness was normal. - Doppler parameters were consistent with abnormal left ventricular relaxation (grade 1 diastolic dysfunction). - Doppler parameters were consistent with high ventricular filling pressure. Indications: Assess edema of lower extremities. History: Prior history: Patient has no history of cardiovascular disease. Risk factors: hypertension and medication-treated hypercholesterolemia. Procedure: The study was performed in the [facility]. The transthoracic approach was used. The study included complete 2D imaging, M-mode, complete spectral Doppler, and color Doppler. Systolic blood pressure was 122 mmHg. Diastolic blood pressure was 72 mmHg. Intravenous contrast (Definity) was administered. Image quality was adequate. Left ventricle: Size was normal. Systolic function was normal. Ejection fraction was estimated to be 65 %. There were no regional wall motion abnormalities. Wall thickness was normal. Doppler: Doppler parameters were consistent with abnormal left ventricular relaxation (grade 1 diastolic dysfunction). Doppler parameters were consistent with high ventricular filling pressure. Aortic valve: The valve was trileaflet. Leaflets exhibited normal thickness and normal cuspal separation. Doppler: There was no stenosis. There was no regurgitation. Aorta: The root exhibited normal size. Mitral valve: Valve structure was normal. There was normal leaflet separation. Doppler: The transmitral velocity was within the normal range. There was no evidence for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 Call my office at [phone] if you have any questions. ? Procedure Code(s): ? --- Professional --- ? G0105, Colorectal cancer screening; colonoscopy on individual at high ? risk ? --- Technical --- ? G0105, Colorectal cancer screening; colonoscopy on individual at high ? risk Diagnosis Code(s): ? --- Professional --- ? V16.0, Family history of malignant neoplasm of gastrointestinal tract ? 455.0, Internal hemorrhoids without mention of complication ? --- Technical --- ? V16.0, Family history of malignant neoplasm of gastrointestinal tract ? 455.0, Internal hemorrhoids without mention of complication CPT copyright 2013 [employer]. All rights reserved. The codes documented in this report are preliminary and upon child support specialist review may be revised to meet current compliance requirements. ____ Jos Scott MD 11/05/2013 9:48 AM Number of Addenda: 0 Note Initiated On: 11/05/2013 9:[address] [facility] ENDOSCOPY 11/05/2013 9:10 AM CDT Jos Scott MD [facility] Organization Address City/State/ZIP Co de Phone Number [facility] ENDOSCOPY * CVD REPORT (PO REF LAB) (08/28/2013 8:48 AM CDT) Interpretation Note [facility] INSURANCE BILL Comment: CARDIOVASCULAR RISK ASSESSMENT: Current available clinical information suggests the patient's risk is at least HIGH. Your patient appears to have one CHD risk equivalent (chronic kidney disease). One additional major risk factor is present (age over 55). - Nephrotic syndrome and liver disease can cause secondary dyslipidemia. Consider evaluation if clinically indicated. - Therapeutic lifestyle changes are always valuable to achieve optimal blood lipid status (diet, exercise, weight management). PATIENT RISK CATEGORY Select one patient risk category based upon medical history and clinical judgment. Additional risk factors such as personal or family history of premature CHD, smoking, and hypertension modify a patient's goals of therapy. In CVD prevention, the intensity of therapy should be adjusted to the level of patient risk. MODERATE intensity statin therapy generally results in an average LDL-C reduction of 30% to less than 50% from the untreated baseline. Examples include (daily doses): atorvastatin 10-20 mg, rosuvastatin 5-10 mg, simvastatin 20-40 mg, pravastatin 40-80 mg, lovastatin 40 mg. HIGH intensity statin therapy generally results in an average LDL-C reduction of 50% or more from the untreated baseline. Examples include (daily doses): atorvastatin 40-80 mg and rosuvastatin 20 mg. LOW RISK ASSESSMENT AND TREATMENT SUGGESTIONS LDL-C is acceptable, 105 mg/dL. Non-HDL Cholesterol is acceptable, 141 mg/dL. - Please refer to assessment and treatment suggestions under high risk category. INTERMEDIATE RISK ASSESSMENT AND TREATMENT SUGGESTIONS LDL-C is acceptable, 105 mg/dL. Non-HDL Cholesterol is acceptable, 141 mg/dL. - Please refer to assessment and treatment suggestions under high risk category. HIGH RISK ASSESSMENT AND TREATMENT SUGGESTIONS LDL-C is borderline high, 105 mg/dL. Non-HDL Cholesterol is borderline high, 141 mg/dL. - Begin statin. If statin already in use, consider increasing dose to achieve at least a 50% LDL reduction from baseline. Moderate or high intensity statin is preferred. If statin cannot be tolerated or increased, alternatives include use of an intestinal agent (ezetimibe or bile acid sequestrant), niacin, and/or fish oil. DISCLAIMER These assessments and treatment suggestions are provided as a convenience in support of the physician-patient relationship and are not intended to replace the physician's clinical judgment. They are derived from the national guidelines in addition to other evidence and expert opinion. The clinician should consider this information within the context of clinical opinion and the individual patient. SEE GUIDANCE FOR CARDIOVASCULAR RISK ASSESSMENT: National Heart, Lung, and Blood [place]'s Third Report of the NCEP Expert Panel on Detection, Evaluation and Treatment of High Blood Cholesterol in Adults (ATP III) (2002. NIH publication 02-5215); Dejuanl et al. Diabetes Care 2008; 31(4):811-82; Contois et al. Clin Chem 2009; 55(3):407-419; Sergio [place] et al. 2013 ACC/AHA guideline on the treatment of blood cholesterol to reduce atherosclerotic cardiovascular risk in adults: a report of the [place] [employer]/[place] [employer] Task Force on Practice Guidelines. Circulation 2013; 00:000-000. PDF Image Not applicable [facility] INSURANCE BILL 08/28/2013 8:48 AM CDT 08/28/2013 1:09 PM CDT Narrative Resulting Agency Comment [employer] [address] [place] [address] ??[facility] [phone] Jhonathan Fisher MD LAB - CHEMISTRY ORD ERABLES [facility] INSURANCE BILL * URINALYSIS MICROSCOPIC ONLY REFLEXED (PO REF LAB) (08/28/2013 8:48 AM CDT) Only the most recent of2 resultswithin the time period is included. WBC UA 0-5 0 - 5 /hpf [facility] INSURANCE BILL RBC UA None seen 0 - 2 /hpf [facility] INSURANCE BILL Epithelial Cells (non renal) 0-10 0 - 10 /hpf [facility] INSURANCE BILL Epithelial Cells (renal) NOT NEEDED [facility] INSURANCE BILL Comment:Ancillary determined the test is not needed Casts ua NOT NEEDED [facility] INSURANCE BILL Comment:Ancillary determined the test is not needed Casts UA NOT NEEDED [facility] INSURANCE BILL Comment:Ancillary determined the test is not needed Crystals UA NOT NEEDED [facility] INSURANCE BILL Comment:Ancillary determined the test is not needed Crystals UA NOT NEEDED [facility] INSURANCE BILL Comment:Ancillary determined the test is not needed Mucus UA Present Not Estab. [facility] INSURANCE BILL Bacteria UA None seen None seen/Few [facility] INSURANCE BILL Yeast UA NOT NEEDED [facility] INSURANCE BILL Comment:Ancillary determined the test is not needed Trichomonas UA NOT NEEDED [facility] INSURANCE BILL Comment:Ancillary determined the test is not needed Comment Urine NOT NEEDED [facility] INSURANCE BILL Comment:Ancillary determined the test is not needed 08/28/2013 8:48 AM CDT 08/28/2013 1:09 PM CDT Narrative Resulting Agency Comment [facility] [employer] [facility] ??[facility] [phone] Jhonathan Fisher MD LAB - URINALYSIS OR DERABLES Performing Organization Address City/[facility] Co de Phone Number [facility] INSURANCE BILL * URIC ACID BLOOD (08/28/2013 8:48 AM CDT) Only the most recent of6 resultswithin the time period is included. Uric Acid 5.1 2.5 - 7.1 mg/dL [facility] INSURANCE BILL Comment:Therapeutic target f or gout patients: <6.0 Blood specimen (specimen) BLOOD SPECIMEN / Unknown 08/28/2013 8:48 AM CDT 08/28/2013 1:09 PM CDT Narrative Resulting Agency Comment [facility] [employer] [facility] ??[facility] [phone] Jhonathan Fisher MD LAB - CHEMISTRY ORD ERABLES Performing Organization Address City/[facility] Co de Phone Number [facility] INSURANCE BILL * URINALYSIS ROUTINE AUTO (08/28/2013 8:48 AM CDT) Only the most recent of6 resultswithin the time period is included. Specific Hood UA 1.016 1.005 - 1.030 [facility] INSURANCE BILL pH UA 7.0 5.0 - 7.5 [facility] INSURANCE BILL Color UA Yellow Yellow [facility] INSURANCE BILL Appearance Clear Clear [facility] INSURANCE BILL Leukocyte UA Negative Negative [facility] INSURANCE BILL Protein UA Negative Negative/Tra ce [facility] INSURANCE BILL Glucose UA Negative Negative [facility] INSURANCE BILL Glucose Reflex NOT NEEDED [facility] INSURANCE BILL Comment:Ancillary determined the test is not needed Ketone UA Negative Negative [facility] INSURANCE BILL Occult Blood Urine Negative Negative [facility] INSURANCE BILL Bilirubin UA Negative Negative [facility] INSURANCE BILL Urobilinogen 0.2 0.0 - 1.9 mg/dL [facility] INSURANCE BILL Nitrite UA Negative Negative [facility] INSURANCE BILL Microscopic Examination Urine [facility] INSURANCE BILL Comment:Microscopic follows if indicated. Microscopic Examination Urine See below: [facility] INSURANCE BILL Urine specimen (specimen) URINE SPECIMEN OBTAINED BY CLEAN CATCH PROCEDURE / Unknown 08/28/2013 8:48 AM CDT 08/28/2013 1:09 PM CDT Narrative Resulting Agency Comment [facility] [employer] [facility] ??[facility] [phone] Jhonathan Fisher MD LAB - URINALYSIS OR DERABLES Performing Organization Address City/[facility]/ZIP Co de Phone Number [facility] INSURANCE BILL * VITAMIN B12 FOLATE PANEL (08/28/2013 8:48 AM CDT) Only the most recent of6 resultswithin the time period is included. Vitamin B12 383 211 - 946 pg/mL [facility] INSURANCE BILL Folate 13.2 >3.0 ng/mL [facility] INSURANCE BILL Comment: A serum folate concentration of less than 3.1 ng/mL is considered to represent clinical deficiency. Blood specimen (specimen) BLOOD SPECIMEN / Unknown 08/28/2013 8:48 AM CDT 08/28/2013 1:09 PM CDT Narrative Resulting Agency Comment [facility] [employer] [facility] ??[facility] [phone] Jhonathan Fisher MD LAB - CHEMISTRY ORD ERABLES Performing Organization Address City/[facility]/ZIP Co de Phone Number [facility] INSURANCE BILL * CARDIAC PROCEDURE ORDER (05/23/2011) María Ellis MD CARDIAC SERVICES ORD ERABLES * URINALYSIS MICROSCOPIC ONLY (03/25/2011 8:32 AM HANDBAG FRAMER) Only the most recent of3 resultswithin the time period is included. WBC UA 0-5 0 - 5 /hpf [facility] INSURANCE BILL RBC UA 0-3 0 - 3 /hpf [facility] INSURANCE BILL Epithelial Cells (non renal) 0-10 0 - 10 /hpf [facility] INSURANCE BILL Epithelial Cells (renal) NOT NEEDED [facility] INSURANCE BILL Comment:Ancillary determined the test is not needed Casts ua NOT NEEDED [facility] INSURANCE BILL Comment:Ancillary determined the test is not needed Casts UA NOT NEEDED [facility] INSURANCE BILL Comment:Ancillary determined the test is not needed Crystals UA NOT NEEDED [facility] INSURANCE BILL Comment:Ancillary determined the test is not needed Crystals UA NOT NEEDED [facility] INSURANCE BILL Comment:Ancillary determined the test is not needed Mucus UA Present Not Estab. [facility] INSURANCE BILL Bacteria UA None seen None seen/Few [facility] INSURANCE BILL Yeast UA NOT NEEDED [facility] INSURANCE BILL Comment:Ancillary determined the test is not needed Trichomonas UA NOT NEEDED [facility] INSURANCE BILL Comment:Ancillary determined the test is not needed Comment Urine NOT NEEDED [facility] INSURANCE BILL Comment:Ancillary determined the test is not needed 03/25/2011 8:32 AM HANDBAG FRAMER 03/25/2011 1:22 PM HANDBAG FRAMER Narrative Resulting Agency Comment [address] ??[facility] [phone] Jhonathan Fisher MD LAB - URINALYSIS OR DERABLES [facility] INSURANCE BILL * C-REACTIVE PROTEIN SENSITIVE (05/11/2010 10:36 AM HANDBAG FRAMER) C-Reactive Protein High Sensitivity 0.85 0.00 - 3.00 mg/L [facility] INSURANCE BILL Comment: ?Relative Risk for Future Cardiovascular Event ?Low ? <1.00 ?Average ? 1.00 - 3.00 ?High ?>3.00 BLOOD SPECIMEN / Unknown 05/11/2010 10:36 AM HANDBAG FRAMER 05/11/2010 9:32 PM HANDBAG FRAMER Narrative Resulting Agency Comment [facility] ??[facility] [phone] Jhonathan Fisher MD LAB - CHEMISTRY ORD [employer] Performing Organization Address City/[facility] Co de Phone Number [facility] INSURANCE BILL * APOLIPOPROTEIN B (05/11/2010 10:36 AM HANDBAG FRAMER) Apolipoprotein B 98 50 - 130 mg/dL [facility] INSURANCE BILL BLOOD SPECIMEN / Unknown 05/11/2010 10:36 AM HANDBAG FRAMER 05/11/2010 9:32 PM HANDBAG FRAMER Narrative Resulting Agency Comment [facility] [address] ??[facility] [phone] Jhonathan Fisher MD LAB - CHEMISTRY ORD [employer] Performing Organization Address City/[facility]/ZIP Co de Phone Number [facility] INSURANCE BILL * EEG (05/11/2010) Jhonathan Fisher MD NEUROLOGY ORDERABLE S * XR FOOT 2 VW LEFT (05/03/2010) Anatomical Region Laterality Modality Ankle / Foot Other Jhonathan Fisher MD DIAGNOSTIC IMAGING ORDERABLES * MAMMO UNILATERAL DIAG LEFT (12/12/2008) Anatomical Region Laterality Modality Breast Other Narrative 12/12/2008 A scan was deleted from the Results section by Nia Guillermo [JEANNINE] on 01/12/09 at ??1:50 PM (File: [id number]) A scan was deleted from the Results section by Nia Guillermo [JEANNINE] on 01/12/09 at ??1:52 PM (File: [id number]) Jhonathan Fisher MD MAMMO ORDERABLES * CBC W AUTO DIFFERENTIAL W PLATELETS (05/24/2008 8:07 AM CDT) White Blood Cell Count 5.8 3.8 - 10.8 Thousand/u L [facility] RBC 4.70 3.80 - 5.10 Million/uL [facility] Hemoglobin 13.9 11.7 - 15.5 g/dL [facility] Hematocrit 41.9 35.0 - 45.0 % [facility] MCV 89.2 80.0 - 100.0 fL [facility] MCH 29.5 27.0 - 33.0 pg [facility] MCHC 33.1 32.0 - 36.0 g/dL [facility] RDW 14.6 11.0 - 15.0 % [facility] Platelet Count 247 140 - 400 Thousand/u L [facility] Comment: Test Performed at: [facility] [place], [place] ??[phone] CECELIA ENRIQUEZ MD 05/24/2008 8:07 AM CDT 05/25/2008 1:24 AM CDT Jhonathan Fisher MD LAB - HEMATOLOGY OR DERABLES Performing Organization Address [facility] de Phone Number [facility] [address] [place] [address] * GGT (05/24/2008 8:07 AM CDT) Pathologist [facility] GGT 38 3 - 65 U/L [facility] Comment: Test Performed at: [facility] [place], [place] ??[address] CECELIA ENRIQUEZ MD 05/24/2008 8:07 AM CDT 05/25/2008 1:24 AM CDT Jhonathan Fisher MD LAB - CHEMISTRY ORD ERABLES Performing Organization Address City/[facility]/ZIP Co de Phone Number [facility] [address] [place] [address] * FINE NEEDLE ASPIRATION (04/29/2001 12:00 PM HANDBAG FRAMER) Result CASE NUMBER [id number] Comment: ORDERING PHYSICIAN ??EMMANUEL MENARD SPECIMEN TYPE ?Breast-rt side Date ? 04/29/2001 Physician ?Floro Specimen Adequacy ?Unsatisfactory for Evaluation Cell Pathology ? Mature adipose cells present. *Comment ? 33 cc. of slightly hazy, colorless fluid received. ??1 thin prep made. 7 slides received. *Diagnosis ? No breast tissue present. Mature adipose tissue present. Snomed. ?04/30/2001 1610 <1> Pathologist ?Coy Rios M.D. CPT code ? 37083 MISCELLANEOUS SAMPLES / Unknown 04/29/2001 12:00 PM HANDBAG FRAMER 04/30/2001 7:43 AM HANDBAG FRAMER Historical Provider LAB - PATHOLOGY/C YTOLOGY ORDERABLES Care Teams Cost And Sales Record Supervisor Relationship Specialty Start Date End Date Tamia Brooks MD [address] [facility] [address] [place] [address] PCP - General Internal Medicine 07/26/16 Tamia Brooks MD [address] [facility] [address] [place] [phone] PCP - Attributed-MSSP 05/08/22 Yohan Barros DPM [address] [facility] [address] [place] [phone] Podiatry 05/24/13
--- OUTSIDE RECORDS SUMMARY | 2024-03-22 20:10 | XMS_ITS | Encounter Summary ---
Author Organization [facility] Address [address] [place] [address] Care Team Providers Care Flight Engineer Performance Qualified Name Role Phone Jhonathan Fisher MD Primary Care Provider Opal ramírez Encounter Details Date Type Department Care Team (Latest Contact Info) Description 12/24/2000 Outpatient Historical [facility] Jhonathan Nunez MD Other screening mammogram (Primary Dx) Social History Tobacco Use Types [...] Primary documented in this encounter Care Teams Flight Engineer Performance Qualified Relationship Specialty Start Date End Date Jhonathan Fisher MD PCP - General 02/24/15 documented as of this encounter
--- OUTSIDE RECORDS SUMMARY | 2024-03-22 20:10 | XMS_ITS | Encounter Summary ---
Author Organization [facility] Address [address] [facility] [place] [address] Care Team Providers Care Sharemilker Name Role Phone Yohan Barros DPM Unavailable [phone] Tamia Brooks MD Primary Care Provider [phone] Tamia Brooks MD Unavailable [phone] Reason for Visit * Reason Onset Date Comments Outreach Preventive Care 12/11/2022 Encounter Details Date Type Department Care Team (Late st Contact Info) Description 12/11/2022 Patient Outreach [facility] - Care Coordination [facility] [address] [address] Antoinette Carlton Outreach Preventive Care Social History [...] Telephone Encounter - Antoinette Maier - 12/11/2022 4:00 PM CDT Project Vibr[employer] Gap Outreach Patient contact attempt regarding open care gaps. Outreach Attempt #: 2nd of 3 Outreach Method: MyChart Outreach Status: MyChart message sent HM items to be addressed: AWV (Medicare/Medicare [...] INFLUENZA VACCINE (1) 11/08/2022 Antoinette Maier 12/11/2022 4:00 PM documented in this encounter Plan of Treatment Upcoming Encounters Date Type Department Care Team (Late st Contact Info) Description 06/29/2024 10:00 AM CDT Office Visit [facility] Medical [facility] - Internal Medicine [address] [facility] [address] [place] [address] Tamia Brooks MD [address] [place] [phone] documented as of this encounter Goals Goal Patient Goal Type Associated Problems Recent Progress Patient-Stated? Author Blood Pressure < 140/90 Blood Pressure 130/70( 024 1:19 PM CDT) Lola Serna MA documented as of this encounter Visit Diagnoses Not on filedocumented in this encounter Care Teams Sharemilker Relationship Specialty Start Date End Date Tamia Brooks MD [address] [place] [address] [place] [phone] PCP - General Internal Medicine 07/26/16 Tamia Brooks MD [address] [place] [address] [place] [phone] PCP - Attributed-MSSP 05/08/22 Yohan Barros, ZOYA [address] [place] [address] [place] [phone] Podiatry 05/24/13 documented as of this encounter
--- OUTSIDE RECORDS SUMMARY | 2024-03-22 20:10 | XMS_ITS | Encounter Summary ---
Author Organization [facility] Address [address] [facility] [place] [address] Care Team Providers Care Chips Screen Tender Name Role Phone Yohan Barros DPM Unavailable [phone] Tamia Brooks MD Primary Care Provider [phone] Tamia Brooks MD Unavailable [phone] Reason for Visit * Reason Onset Date Comments Encounter Opened In Error 03/13/2023 Encounter Details Date Type Department Care Team (Late st Contact Info) Description 03/13/2023 Refill [facility] Medical [facility] - Internal Medicine [address] [address] Tamia Brooks MD [address] [phone] Encounter Opened In Error Social History Tobacco Use Types Packs/Day Years [...] encounter Miscellaneous Notes * Telephone Encounter - Nancy Gracia MA - 03/13/2023 11:26 AM CST error PERSON documented in this encounter Plan of Treatment Upcoming Encounters Date Type Department Care Team (Late st Contact Info) Description 06/29/2024 10:00 AM CDT Office Visit [facility] - Internal Medicine [address] [facility] [address] [place] [address] Tamia Brooks MD [address] [facility] [address] [place] [address] documented as of this encounter Goals Goal Patient Goal Type Associated Problems Recent Progress Patient-Stated? Author Blood Pressure < 140/90 Blood Pressure 130/70( 024 1:19 PM CDT) No Lola Neff MA documented as of this encounter Visit Diagnoses Not on filedocumented in this encounter Care Teams Chips Screen Tender Relationship Specialty Start Date End Date Tamia Brooks MD [address] [place] [phone] PCP - General Internal Medicine 07/26/16 Tamia Brooks MD [address] [place] [phone] PCP - Attributed-MSSP 05/08/22 Yohan Barros, TAMMYM [address] [place] [address] [place] [phone] Podiatry 05/24/13 documented as of this encounter
--- OUTSIDE RECORDS SUMMARY | 2024-03-22 20:10 | XMS_ITS | Encounter Summary ---
Author Organization [facility] Address [address] [place] [address] Care Team Providers Care Pulp Screen Operator Name Role Phone Yohan Barros DPM Unavailable [phone] Tamia Brooks MD Primary Care Provider [phone] Tamia Brooks MD Unavailable [phone] Reason for Visit * Reason Comments Refill Request Encounter Details Date Type Department Care Team (Late Contact Info) Description 08/06/2023 Refill [facility] - Internal Medicine [address] [address] Tamia Brooks MD [address] [place] [phone] Refill Request Social History Tobacco Use [...] Description 06/29/2024 10:00 AM CDT Office Visit [facility] - Internal Medicine [address] [facility] [address] [place] [address] Tamia Brooks MD [address] [facility] [address] [place] [address] documented as of this encounter Goals Goal Patient Goal Type Associated Problems Recent Progress Patient-Stated? Author Blood Pressure < 140/90 Blood Pressure 130/70( 024 1:19 PM CDT) Lola Serna MA documented as of this encounter Visit Diagnoses Diagnosis Gastroesophageal reflux disease, unspecified whether esophagitis present documented in this encounter Care Teams Pulp Screen Operator Relationship Specialty Start Date End Date Tamia Brooks MD [address] [facility] [address] [place] [address] PCP - General Internal Medicine 07/26/16 Tamia Brooks MD [address] [place] [address] [address] [place] [phone] PCP - Attributed-MSSP 05/08/22 Yohan Barros, DPM [facility] [place] [address] [place] [phone] Podiatry 05/24/13 documented as of this encounter
--- OUTSIDE RECORDS SUMMARY | 2024-03-22 20:10 | XMS_ITS | Continuity of Care Document ---
Author Organization [facility] Address [address] [address] Phone Care Team Providers Care Psychiatric Cns Name Role Phone Daniel PONCE, Jose Unavailable Unavailable Allergies, Adverse Reactions, Alerts Substance Reaction Status Criticality No Known Allergies Active No Inform ation Medications Medication Instructions Dosage Effective Dates (start - stop) Status Comments OMEPRAZOLE (unknown strength) Not Available - Active AMLODIPINE BESYLATE (unknown strength) Not Available - Active ATORVASTATIN CALCIUM (unknown strength) Not Available - Active LISINOPRIL (unknown strength) Not Available - Active Procedures Procedure Date OFFICE/OUTPATIENT VISIT [facility] OFFICE/OUTPATIENT VISIT [facility] Advance Directives Directive Yes / No Effective Date File Name No Information Encounters Encounter Description Practice Location Reason(s) For Visit Diagnoses Date Provider Providers Copied on Encounter OFFICE/OUTPA TIENT VISIT EST [facility], [address], [address], [place] tel:[phone] [facility] Ruptured Bakers cystGastrocnemi us strain, right, subsequent encounter Sep-1 6 Sucher Jose. [address] [address], [place], [address]. tel: [phone] [facility], [address] [place] [address] [address], [place], [facility], [place] tel:[phone] [facility] Pain of right lower extremity Sep-0 6 Sucher Jose. [address] [address], [place], [address]. tel: [phone] OFFICE/OUTPA TIENT VISIT [facility], [address] [facility], [place], [address], [place] tel:[phone] [facility] Pain of right lower extremity 6 Sucher Jose. [address] [facility] [address], [place], [address]. tel: [phone] Family History Family Member Type Diagnosis Age At Onset Sister Problem (finding) Alive and well Payers Payer name Insurance type Covered democrat ID Authorsylvestera tion(s) Medicare E2 OT [id number] For Life OT [id number] Social History Type Description Quantity Date Captured Comments Alcohol Use Details Unknown Caffeine Use Details Unknown Tobacco Use Status Smoking Status No Information Sex Female Chief Complaint And Reason For Visit No Information Reason For Referral Reason For Referral No Information Plan Of Treatment Date Type Action Status Referral Ordered: MRI LXTR OTH/THN JT C-MATRL RT leg Appointment date/timeframe: 11/24/2015 ordered Referral Ordered: MRI ANY JT LXTR C-MATRL Appointment date/timeframe: 11/15/2015 ordered History Of Present Illness Encounter Date Complaint History Of Prese nt Illness No Information Functional Status Date Functional Assessmen t No Information Instructions Date Instruction Additional Infor mation Apply ice as tolerated. Related to Gastrocnemius strain, right, subsequent encounter Elevate extremity above heart. R elated to Gastrocnemius strain, right, subsequent encounter immobilize if directed Related t o Pain of right lower extremity Assessments Type Assessment Date assessment Ruptured Bakers cyst assessment Gastrocnemius strain, right, sub sequent encounter Patient Care Teams Name Effective Dates (start - stop) Status Members No Information
--- OUTSIDE RECORDS SUMMARY | 2024-03-22 20:10 | XMS_ITS | Encounter Summary ---
Author Organization [facility] Address [address] [facility] [place] [address] Care Team Providers Care Educator Senior Clinical Name Role Phone Yohan Barros DPM Unavailable [phone] Tamia Brooks MD Primary Care Provider Deric Dudley Unavailable Tamia Brooks MD Unavailable [phone] Encounter Details Date Type Department Care Team (Late Contact Info) Description 06/24/2023 Orders Only [facility] Medical [facility] - Internal Medicine [address] [address] Tamia Brooks MD [address] [place] [phone] Screening mammogram, encounter for Social History Tobacco Use Types Packs/Day Years [...] Description 06/29/2024 10:00 AM CDT Office Visit [facility] - Internal Medicine [address] [facility] [address] [place] [address] Tamia Brooks MD [address] [facility] [address] [place] [address] documented as of this encounter Goals Goal Patient Goal Type Associated Problems Recent Progress Patient-Stated? Author Blood Pressure < 140/90 Blood Pressure 130/70( 024 1:19 PM CDT) No Lola Neff MA documented as of this encounter Procedures Procedure Name Priority Date/Time Associated Diagnosis Comments MAMMO BILAT SCREENING W TEJ Routine 06/23/2023 Screening mammogram, encounter for documented in this encounter Results * MAMMO BILAT SCREENING W TEJ (06/23/2023) Anatomical Region Laterality Modality Breast Bilateral Mammography 06/23/2023 Tamia Brooks MD MAMMO ORDERABLES documented in this encounter Visit Diagnoses Diagnosis Screening mammogram, encounter for documented in this encounter Care Teams Educator Senior Clinical Relationship Specialty Start Date End Date Tamia Brooks MD [address] [place] [address] [address] [place] [address] PCP - General Internal Medicine 07/26/16 Tamia Brooks MD [address] [place] [address] [place] [phone] PCP - Attributed-MSSP 05/08/22 Yohan Barros, TAMMYM [facility] [place] [address] [place] [phone] Podiatry 05/24/13 Deric Dudley Care Coordination Specialist Care Management 06/26/23 06/26/23 documented as of this encounter
--- OUTSIDE RECORDS SUMMARY | 2024-03-22 20:10 | XMS_ITS | Encounter Summary ---
Author Organization [facility] Address [address] [facility] [place] [address] Care Team Providers Care Jet Aircraft Servicer Name Role Phone Yohan Barros DPM Unavailable [phone] Tamia Brooks MD Primary Care Provider [phone] Tamia Brooks MD Unavailable [phone] Reason for Visit * Reason Comments Refill Request Encounter Details Date Type Department Care Team (Late st Contact Info) Description 09/19/2022 Refill [facility] Medical [facility] - Internal Medicine [address] [place] [address] [place] [address] Tamia Brooks MD [address] [place] [address] Refill Request Social History Tobacco Use [...] encounter Miscellaneous Notes * Telephone Encounter - Barbra Lima - 09/19/2022 2:58 PM CDT Last appt: 09/11/22 Next appt: 06/18/23 Last refill: 07/12/2022 Number of cancel or no shows in the last 12 months: 0 Allergies have been reviewed. Correct pharmacy is populated. Please sign RX and close encounter. documented in this encounter Plan of Treatment Upcoming Encounters Date Type Department Care Team (Late st Contact Info) Description 06/29/2024 10:00 AM CDT Office Visit [facility] - Internal Medicine [address] [facility] [address] [place] [address] Tamia Brooks MD [address] [place] [address] [place] [address] documented as of this encounter Goals Goal Patient Goal Type Associated Problems Recent Progress Patient-Stated? Author Blood Pressure < 140/90 Blood Pressure 130/70( 024 1:19 PM CDT) Lola Serna MA documented as of this encounter Visit Diagnoses Not on filedocumented in this encounter Care Teams Jet Aircraft Servicer Relationship Specialty Start Date End Date Tamia Brooks MD [address] [place] [phone] PCP - General Internal Medicine 07/26/16 Tamia Brooks MD [address] [place] [phone] PCP - Attributed-MSSP 05/08/22 Yohan Barros DPM [address] [place] [address] [place] [phone] Podiatry 05/24/13 documented as of this encounter
--- OUTSIDE RECORDS SUMMARY | 2024-03-22 20:10 | XMS_ITS | Encounter Summary ---
Author Organization [facility] Address [address] [facility] [place] [address] Care Team Providers Care Cake Washer Name Role Phone Yohan Barros DPM Unavailable [phone] Taima Brooks MD Primary Care Provider [phone] Tamia Brooks MD Unavailable [phone] Reason for Visit * Reason Comments Refill Request Encounter Details Date Type Department Care Team (Late st Contact Info) Description 06/13/2023 Refill [facility] Medical [facility] - Internal Medicine [address] [facility] [address] [place] [address] Tamia Brooks MD [address] [place] [phone] Refill Request Social History Tobacco Use [...] Telephone Encounter - Nancy Gracia MA - 06/13/2023 3:13 PM CDT Last appt: 09.11.22 Next appt: 06.18.23 Follow up recommendations: Return for 6-8 mths AWV (20 min) . or sooner if needed. Last refill: 09.11.22 Number of cancel or no shows in the last 12 months: 0 Allergies have been reviewed. Correct pharmacy is populated. Please sign RX and close encounter. documented in this encounter Plan of Treatment Upcoming Encounters Date Type Department Care Team (Late st Contact Info) Description 06/29/2024 10:00 AM CDT Office Visit [facility] - Internal Medicine [address] [facility] [address] [place] [address] Tamia Brooks MD [address] [place] [phone] documented as of this encounter Goals Goal Patient Goal Type Associated Problems Recent Progress Patient-Stated? Author Blood Pressure < 140/90 Blood Pressure 130/70( 024 1:19 PM CDT) Lola Serna MA documented as of this encounter Visit Diagnoses Diagnosis Mixed hyperlipidemia documented in this encounter Care Teams Cake Washer Relationship Specialty Start Date End Date Tamia Brooks MD [address] [place] [phone] PCP - General Internal Medicine 07/26/16 Tamia Brooks MD [address] [place] [phone] PCP - Attributed-MSSP 05/08/22 Yohan Barros, TAMMYM [address] [place] [phone] Podiatry 05/24/13 documented as of this encounter
--- OUTSIDE RECORDS SUMMARY | 2024-03-22 20:10 | XMS_ITS | Encounter Summary ---
Author Organization [facility] Address [address] [place] [address] Care Team Providers Care Director Of Vital Statistics Name Role Phone Jhonathan Fisher MD Primary Care Provider Opal ramírez Encounter Details Date Type Department Care Team (Latest Contact Info) Description 12/25/1999 Outpatient Historical [facility] Jhonathan Nunez MD Other screening mammogram (Primary [...] Primary documented in this encounter Care Teams Director Of Vital Statistics Relationship Specialty Start Date End Date Jhonathan Fisher MD PCP - General 02/24/15 documented as of this encounter
--- OUTSIDE RECORDS SUMMARY | 2024-03-22 20:10 | XMS_ITS | Encounter Summary ---
Author Organization [facility] Address [address] [facility] [place] [address] Care Team Providers Care Radio Technician Name Role Phone Yohan Barros DPM Unavailable [phone] Tamia Brooks MD Primary Care Provider [phone] Tamia Brooks MD Unavailable [phone] Reason for Visit * Reason Onset Date Comments Med Question 03/14/2023 Encounter Details Date Type Department Care Team (Late st Contact Info) Description 03/14/2023 Telephone [facility] Medical [facility] - Internal Medicine [address] [address] Tamia Brooks MD [address] [place] [phone] Med Question Social History Tobacco Use Types Packs/Day Years [...] encounter Miscellaneous Notes * Telephone Encounter - Violeta Lopez LPN - 03/14/2023 2:11 PM SHEATHER Patient states she was prescribed Montelukast 10 mg on 11/20/[address] Brooks. She wants to know if she can double it. She says she feels no better. I reviewed chart. It is not on her medication list. She says her ears, throat and chest hurt. She says this has been the same since she was seen by on 11/20/22. I again reviewed chart and do not see that she was seen. She spoke with her and then realized she was seen in urgent care. I advised patient she can not take more Montelukast, and if she has been sick for 4 months, she feels no better, she should return to urgent care. She is aware Dr. Brooks is out of the office, and does want to see another provider. THER documented in this encounter Plan of Treatment Upcoming Encounters Date Type Department Care Team (Late st Contact Info) Description 06/29/2024 10:00 AM CDT Office Visit [facility] Medical [facility] - Internal Medicine [address] [place] [address] [place] [address] Tamia Brooks MD [address] [place] [phone] documented as of this encounter Goals Goal Patient Goal Type Associated Problems Recent Progress Patient-Stated? Author Blood Pressure < 140/90 Blood Pressure 130/70( 024 1:19 PM CDT) Lola Serna MA documented as of this encounter Visit Diagnoses Not on filedocumented in this encounter Care Teams Radio Technician Relationship Specialty Start Date End Date Tamia Brooks MD [address] [place] [phone] PCP - General Internal Medicine 07/26/16 Tamia Brooks MD [address] [place] [phone] PCP - Attributed-MSSP 05/08/22 Yohan Barros DPM [address] [place] [phone] Podiatry 05/24/13 documented as of this encounter
--- OUTSIDE RECORDS SUMMARY | 2024-03-22 20:10 | XMS_ITS | Encounter Summary ---
Author Organization [facility] Address [address] [facility] [place] [address] Care Team Providers Care Photo Graphics Librarian Name Role Phone Yohan Barros DPM Unavailable [phone] Tamia Brooks MD Primary Care Provider [phone] Reason for Visit * Reason Onset Date Comments MEDICATION REFILL 03/25/2022 Encounter Details Date Type Department Care Team (Late st Contact Info) Description 03/25/2022 Refill [facility] Medical [facility] - Internal Medicine [address] [facility] [address] [place] [phone] Tamia Brooks MD [address] [place] [phone] MEDICATION REFILL Social History Tobacco Use Types Packs/Day Years [...] AM CDT Sexual Orientation Not on file COVID-19 Exposure Response Date Recorded In the last 10 days, have yo u been in contact with someone who was confirmed or suspected to have Coronavirus/COVID-19? No / Unsure 03/08/2022 11:15 AM ASSOCIATE PROFESSOR OF ENGLISH documented as of this encounter Plan of Treatment Upcoming Encounters Date Type Department Care Team (Late st Contact Info) Description 06/29/2024 10:00 AM CDT Office Visit [facility] - Internal Medicine [address] [facility] [address] [place] [phone] Tamia Brooks MD [address] [place] [phone] documented as of this encounter Goals Goal Patient Goal Type Associated Problems Recent Progress Patient-Stated? Author Blood Pressure < 140/90 Blood Pressure 130/70( 024 1:19 PM CDT) Lola Serna MA documented as of this encounter Visit Diagnoses Diagnosis Type 2 diabetes mellitus with stage 3a chronic kidney disease, without long-term current use of insulin (HCC)- Primary documented in this encounter Care Teams Photo Graphics Librarian Relationship Specialty Start Date End Date Tamia Brooks MD [address] [place] [phone] PCP - General Internal Medicine 07/26/16 Yohan Barros DPM [facility] [place] [address] [place] [phone] Podiatry 05/24/13 documented as of this encounter
--- OUTSIDE RECORDS SUMMARY | 2024-03-22 20:10 | XMS_ITS | Encounter Summary ---
Author Organization [facility] Address [address] [facility] [place] [address] Care Team Providers Care Head Orthopedic Team Physician Name Role Phone Yohan Barros DPM Unavailable [phone] Tamia Brooks MD Primary Care Provider Reason for Visit * Reason Onset Date Comments Medication Clarification 03/12/2022 Encounter Details Date Type Department Care Team (Late st Contact Info) Description 03/12/2022 Telephone [facility] Medical [facility] - Internal Medicine [address] [facility] [address] [place] [address] Tamia Brooks MD [address] [place] [address] [place] [phone] Medication Clarification Social History Tobacco Use Types Packs/Day Years [...] Coronavirus/COVID-19? No / Unsure 03/08/2022 11:15 AM REGISTERED APPRAISER documented as of this encounter Miscellaneous Notes * Telephone Encounter - Carmen Salinas RN - 03/12/2022 3:41 PM CST Patient made aware of you recommendations. STERED APPRAISER * Telephone Encounter - Tamia Brooks MD - 03/12/2022 3:34 PM CST I was just refilling her lasix, but Dr. Baltazar has recommended stopping it as of last visit. Hold the lasix, continue HCTZ as rx by Dr. Baltazar. Can keep the lasix on hand to use PRN for significant leg swelling. Tamia Brooks MD 03/12/2022 3:35 PM STERED APPRAISER * Telephone Encounter - Carmen Salinas RN - 03/12/2022 11:13 AM CST Patient was seen by Dr. Derek Baltazar on 01/09/22 and was prescribed Hydrodiuril 25 mg 1 X Daily. On 02/20/22 you prescribed Furosemide 20 mg 2 X Daily. She and her called (he is a pharmacist). Her is asking which do you prefer she takes? He did say they have and ample supply on hand of the Furosemide. STERED APPRAISER documented in this encounter Plan of Treatment Upcoming Encounters Date Type Department Care Team (Late st Contact Info) Description 06/29/2024 10:00 AM CDT Office Visit [facility] Medical [facility] - Internal Medicine [address] [facility] [address] [place] [phone] Tamia Brooks MD [address] [place] [address] [place] [phone] documented as of this encounter Goals Goal Patient Goal Type Associated Problems Recent Progress Patient-Stated? Author Blood Pressure < 140/90 Blood Pressure 130/70( 024 1:19 PM CDT) Lola Serna MA documented as of this encounter Visit Diagnoses Not on filedocumented in this encounter Care Teams Head Orthopedic Team Physician Relationship Specialty Start Date End Date Tamia Brooks MD [address] [facility] [address] [place] [address] PCP - General Internal Medicine 07/26/16 Yohan Barros DPM [address] [facility] [address] [place] [address] Podiatry 05/24/13 documented as of this encounter
--- OUTSIDE RECORDS SUMMARY | 2024-03-22 20:10 | XMS_ITS | Encounter Summary ---
Author Organization [facility] Address [address] [facility] [place] [address] Care Team Providers Care Concierge Manager Name Role Phone Yohan Barros DPM Unavailable [phone] Tamia Brooks MD Primary Care Provider Tamia Brooks MD Unavailable [phone] Reason for Visit * Reason Comments Ear Pain Pain Head Sinus Problem Sore Throat Encounter Details Date Type Department Care Team (Late st Contact Info) Description 08/20/2022 11:20 AM CDT Office Visit [facility] - Internal Medicine [facility] [address] Tamia Brooks MD [address] [place] [phone] Sore throat (Primary Dx); Sinus problem; Acute otitis media, unspecified otitis media type Social History Tobacco Use Types Packs/Day Years Used Date Smoking Tobacco: Former Cigarettes 0.2 12 0 03/10/1978 - 03/10/1990 Smokeless Tobacco: Never Tobacco Cessation:Counseling Given: Yes Alcohol Use Standard Drinks/Week Comments Yes 0 (1 standard drink = 0.6 oz pur e alcohol) occ PHQ-2 Answer Date Recorded PHQ2 TOTAL SCORE 0 08/20/2022 Sex and Gender Information Value Date Recorded Sex Assigned at Not on file Gender Identity Female 11/22/2016 11:14 AM CDT Sexual Orientation Not on file documented as of this encounter Last Filed Vital Signs Vital Sign Reading Time Taken Comments Blood Pressure 138/76 08/20/2022 11:13 AM CDT Pulse 75 08/20/2022 11:13 AM CDT Temperature 36.4 ??C (97.5 ??F) 08/20/2022 11:13 AM C DT Respiratory Rate - - Oxygen Saturation 98% 08/20/2022 11:13 AM CDT Inhaled Oxygen Concentration - - Weight 90.7 kg (200 lb) 08/20/2022 11:13 AM CDT Height 165.1 cm (5' 5 ) 08/20/2022 11:13 AM CDT Body Mass Index 33.28 08/20/2022 11:13 AM CDT documented in this encounter Progress Notes * Tamia Brooks MD - 08/20/2022 11:44 AM CDT Tamia Brooks MD [facility] - Department of Internal Medicine [address] [place] [address], [address] [place] [address] History of Present Illness Maura Watkins is a 72 year old female who presents to the office Chief Complaint Patient presents with ??? Ear Pain ??? Pain Head ??? Sinus Problem ??? Sore Throat Here for follow up on chronic medical problems. She is c/o ear pressures, sore throat, gum pain. Cough - productive of clear sputum. Some chest soreness. Denies chest squeezing or pressure. No sick contacts. + SOB sxs for 3 weeks. She recently returned from [facility]. Denies f/c, n. Emesis x 1 Tried mucinex w/o relief. She is on zyrtec daily. Off and on steroid nasal spray Tried albuterol - unsure it it helped. Wt Readings from Last 3 Encounters: 08/20/22 90.7 kg (200 lb) 02/20/22 90.1 kg (198 lb 9.6 oz) 10/29/21 92.1 kg (203 lb) Weight change: + 2 lbs since the last visit here. Labs reviewed: Did them today. Recent Labs Component Name 01/12/21 0920 02/11/20 0800 10/19/18 1120 SODIUM 142 144 143 POTASSIUM 4.9 4.4 4.9 CHLORIDE 102 101 107* CO2 25 24 19* BUN 27 20 18 CREATININE 1.35* 1.33* 1.18* GLUCOSE 111* 121* 96 CALCIUM 9.8 10.1 9.7 Recent Labs Component Name 10/19/18 1120 09/26/16 0802 07/13/14 0847 TSH 2.210 2.080 2.060 Recent Labs Component Name 01/12/21 0921 02/11/20 0800 10/19/18 1120 WBC 7.2 5.9 6.8 HGB 12.8 13.4 12.5 HCT 37.8 40.4 37.8 PLTCOUNT 284 289 281 Recent Labs Component Name 02/20/22 1042 08/30/20 1441 01/06/19 0000 HGBA1C 6.5 6.2 5.8 Recent Labs Component Name 01/12/21 0920 02/11/20 0800 10/19/18 1120 CHOL 166 201* 198 TRIG 214* 196* 211* HDL 39* 40 43 LDLCALC 91 126* 113* No results for input(s): MICROALBUGML in the last 05928 hours. Recent Labs Component Name 02/11/20 0800 MICROALBCREA 13 No results for input(s): INR in the last 45788 hours. Past Medical, Surgical, Social, and Family Histories Patient Active Problem List Diagnosis Date Noted ??? Diet-controlled diabetes mellitus ([facility]) 08/30/2020 Priority: Not Prioritized ??? Type 2 diabetes mellitus with stage 3 chronic kidney disease, without long- term current use of insulin ([facility]) 10/23/2018 Priority: Not Prioritized ??? Chronic diastolic congestive heart failure ([facility]) 05/27/2017 Priority: Not Prioritized Echo 05/2017: ef 60%, grade 1 diastolic dysfunction, and elevated filling pressures ??? Class 1 obesity due to excess calories with serious comorbidity and body mass index (BMI) of 33.0 to 33.9 in adult 05/13/2017 Priority: Not Prioritized ??? BMI 35.0-35.9,adult 05/13/2017 Priority: Not Prioritized ??? DAILY (obstructive sleep apnea) 11/22/2016 Priority: Not Prioritized ??? Osteopenia 09/27/2016 Priority: Not Prioritized ??? CKD (chronic kidney disease) stage 3, GFR 30-59 ml/min ([facility]) 06/23/2014 Component Latest Ref Rng & Units 02/11/2020 10/19/2018 eGFR by MDRD >59 mL/min/1.73 40 (L) 47 (L) GFR 7-18, 3--18 ??? Situational mixed anxiety and depressive disorder 01/17/2014 ??? Primary osteoarthritis of both knees 10/27/2012 ??? Prediabetes 10/27/2012 ??? Anhydrotic dermatitis of foot 04/27/12 04/27/2012 ??? Allergic rhinitis 09/20/2008 ??? Hypertension, benign essential 09/20/2008 ??? Hyperlipidemia 09/20/2008 I have reviewed PMH, FMH, and Social history. It is up to date and without changes unless noted below: Medication and Allergies Allergies Allergen Reactions ??? Darvon Nausea and/or Vomiting and Dizziness Current Outpatient Medications Medication Sig Dispense Refill ??? amoxicillin-clavulanate (Augmentin) 875-125 MG tablet Take 1 (one) tablet by mouth 2 times daily with morning and evening meal 20 tablet 0 ??? blood glucose test strip Use 1 (one) strip as directed 100 strip 0 ??? calcium 600 MG tablet Take 2 (two) tablets by mouth daily with food ??? Cetirizine HCl (ZYRTEC PO) Take by mouth nightly as needed ??? Cholecalciferol (VITAMIN D-3) 1000 UNITS Take by mouth 2 times daily ??? glucosamine-chondroitin (GLUCOSAMINE CHONDR COMPLEX) 500-400 MG capsule Take 1 capsule by mouthonce daily 30 capsule 5 ??? lansoprazole (Prevacid) 15 MG capsule Take 1 (one) capsule to 2 (two) capsules by mouth once daily TO IMPROVE HEARTBURN SYMPTOMS Reasons: Gastroesophageal Reflux Disease 60 capsule 1 ??? metoclopramide (Reglan) 5 MG tablet Take 1 (one) tablet by mouth 3 times daily before meals Reasons: Gastroesophageal Reflux Disease 90 tablet 1 ??? rosuvastatin (Crestor) 10 MG tablet TAKE 1 TABLET ONCE DAILY 90 tablet 1 ??? tiZANidine (ZANAFLEX) 4 MG tablet Take 1 (one) tablet by mouth every 8 hours as needed for Muscle Spasms (Patient not taking: Reported on 08/20/2022) 30 tablet 0 No current facility-administered medications for this visit. Immunization History Administered Date(s) Administered ??? COVID PFIZER BIVALENT 12Y+ 30mcg/0.3ML 02/20/2022 ??? Covid Moderna primary monovalent 12+ yr 0.5mL 05/01/2020, 05/29/2020 ??? FLU VACCINE IIV INC ANTIG PF IM 01/06/2015, 12/29/2015, 12/31/2018, 12/30/2019 ??? FLU VACCINE QUAD CCIIV4 PF IM 12/31/2021 ??? FLU VACCINE TRI IIV3 SPLIT IM (AFLURIA) 11/17/2008, 01/10/2012, 01/13/2013, 12/05/2021 ??? FLU VACCINE TRI IIV3 SPLIT PF IM (FLUVIRIN) 12/03/2017 ??? FLU, HISTORIC VACCINE 12/30/2019, 01/18/2021 ??? INFLUENZA 11/17/2008, 12/08/2009, 01/06/2011, 01/10/2012, 01/13/2013, 01/13/2013, 11/22/2013, 01/06/2015, 12/29/2015, 12/31/2018, 01/18/2021 ??? Influenza Vaccine Pf Cell Cult (18+yrs) IM 12/03/2017 ??? MODERNA SARS-COV-2 COVID-19 VACCINE 0.25ML 01/18/2021 ??? PNEUMOCOCCAL PPSV23 01/08/2010, 09/16/2016 ??? Pneumococcal Pcv13 Conj 07/10/2015 Review of Systems As noted in HPI Physical Examination Vitals: 08/20/22 1113 BP: 138/76 Pulse: 75 Temp: 97.5 ??F (36.4 ??C) SpO2: 98% Weight: 90.7 kg (200 lb) Height: 1.651 m (5' 5 ) CrCl cannot be calculated (Patient's most recent lab result is older than the maximum 15 days allowed.). . BMI Readings from Last 3 Encounters: 08/20/22 33.28 kg/m?? 02/20/22 33.05 kg/m?? 10/29/21 33.78 kg/m?? General appearance: alert and NAD. Malaise appearance SKIN: No suspicious lesions are noted on the exposed skin. EYES: Extraocular muscle movements are intact. Pupils are equal, round, and reactive to light. Conjunctiva are without significant erythema. HEENT: Auricles are intact without erythema. Hearing is intact to conversational tone. Tympanic membranes are intact without erythema. L ear w/ cloudy effusion present. Pharynx reveals no exudate. + erythema. No TTP of sinuses. Nasal turbinates are erythematous and edematous. NECK: No thyromegaly. + anterior cervical adenopathy. No supraclavicular adenopathy. 2+ carotid pulsations. No carotid bruit. HEART: Regular rate and rhythm. No murmurs, rubs, or gallops are noted. No LE edema LUNGS: Clear to auscultation. No wheezes. No rales. No accessory muscle use. MS: motor normal all 4 extrem. Assessment and Plan ICD-10-CM 1. Sore throat J02.9 STREP A SCREEN - POINT OF CARE (AMB) SARS-COV-2 (COVID-19) AG (AMB) POCT 2. Sinus problem J34.9 SARS-COV-2 (COVID-19) AG (AMB) POCT 3. Acute otitis media, unspecified otitis media type H66.90 amoxicillin- clavulanate (Augmentin) 875-125 MG tablet Strep and covid 19 swabs negative. Pt likely has sinusitis and otitis. Start abx given duration of sxs. The above was discussed with the patient and understanding was voiced. Patient is in agreement withthe above plan HM: Health Maintenance Topic Date Due ??? DTAP/TDAP/TD VACCINES (1 - Tdap) Never done ??? ZOSTER VACCINE (1 of 2) Never done ??? DIABETES-NEPHROPATHY SCREENING 02/10/2021 ??? BONE DENSITY TESTING 03/17/2021 ??? DIABETES-SERUM CREATININE 01/12/2022 ??? DIABETES-FOOT EXAM WITH MONOFILAMENT 02/16/2022 ??? DIABETES-HGB A1C 08/21/2022 ??? MEDICARE AWV - 12 MONTHS 02/20/2023 ??? DIABETES-EYE EXAM 06/19/2023 ??? Colorectal Cancer Screening 11/06/2023 ??? MAMMOGRAM 06/10/2024 ??? PNEUMOCOCCAL VACCINE 65+ Completed ??? INFLUENZA VACCINE Completed ??? HEPATITIS C SCREENING Completed ??? COVID-19 VACCINE Completed ??? HEPATITIS B VACCINE Aged Out ??? HIB VACCINE Aged Out ??? MENINGOCOCCAL VACCINE Aged Out Return to office: Return if symptoms worsen or fail to improve. or sooner if needed. * Radha Virgen - 08/20/2022 11:31 AM CDT Office Visit on 08/20/22 STREP A SCREEN - POINT OF CARE (AMB) Result Value Ref Range Strep A Rapid POCT Negative Negative Strep A Internal Control Present SARS-COV-2 (COVID-19) AG (AMB) POCT Result Value Ref Range SARS-CoV-2 Ag Negative Negative Lot # [id number] Expiration Date 09/06/22 Instrument Serial Number n/a COVID Internal Control Acceptable Acceptable documented in this encounter Plan of Treatment Upcoming Encounters Date Type Department Care Team (Late st Contact Info) Description 06/29/2024 10:00 AM CDT Office Visit [facility] - Internal Medicine [address] [phone] Tamia Brooks MD [address] [place] [phone] documented as of this encounter Goals Goal Patient Goal Type Associated Problems Recent Progress Patient-Stated? Author Blood Pressure < 140/90 Blood Pressure 130/70( 024 1:19 PM CDT) No Lola Neff MA documented as of this encounter Procedures Procedure Name Priority Date/Time Associated Diagnosis Comments SARS-COV-2 (COVID-19) AG (AMB) POCT Routine 08/20/2022 11:30 AM CDT Sore throat Sinus problem STREP A SCREEN - POINT OF CARE (AMB) Routine 08/20/2022 11:25 AM CDT Sore throat documented in this encounter Results * SARS-COV-2 (COVID-19) AG (AMB) POCT (08/20/2022 11:30 AM CDT) SARS-CoV-[address] Ag Negative [address] [facility] Lot # [id number] [facility] Expiration Date 09/06/[address] [facility] Instrument Serial Number n/a [facility] COVID Internal Control Acceptable Acceptable [facility] Microbiology SPECIMEN FROM NASAL FOSSAE / Unknown 08/20/2022 11:30 AM CDT Tamia Brooks MD LAB - POINT OF CARE ORDERABLES Performing Organization Address City/[facility] [address]/[facility] de Phone Number [facility] [address] [phone] * STREP A SCREEN - POINT OF CARE (AMB) (08/20/2022 11:25 AM CDT) Strep A Rapid POCT Negative Negative [facility] Strep A Internal Control Present [facility] Other ENTIRE THROAT (SURFACE REGION OF NECK) / Unknown 08/20/2022 11:25 AM CDT Tamia Brooks MD LAB - POINT OF CARE ORDERABLES Performing Organization Address City/[facility] [address]/[facility] Co de Phone Number [facility] [address], [address] [phone] documented in this encounter Visit Diagnoses Diagnosis Sore throat- Primary Acute pharyngitis Sinus problem Unspecified sinusitis (chronic) Acute otitis media, unspecified otitis media type documented in this encounter Additional Health Concerns Infection Onset Date Last Indicated Resolved Time COVID-19 Under Investigation 08/20/2022 08/20/2022 08/20/2022 11:31 AM CDT documented as of this encounter Care Teams Concierge Manager Relationship Specialty Start Date End Date Tamia Brooks MD [address] [place] [address] PCP - General Internal Medicine 07/26/16 Tamia Brooks MD [address] [place] [address] PCP - Attributed-MSSP 05/08/22 Yohan Barros, DPM [address] [facility] [address] [place] [phone] Podiatry 05/24/13 documented as of this encounter
--- OUTSIDE RECORDS SUMMARY | 2024-03-22 20:10 | XMS_ITS | Encounter Summary ---
Author Organization [facility] Address [address] [place] [address] Care Team Providers Care Seamless Tube Roller Name Role Phone Yohan Barros DPM Unavailable [phone] Tamia Brooks MD Primary Care Provider [phone] Tamia Brooks MD Unavailable [phone] Reason for Visit * Reason Comments Refill Request Encounter Details Date Type Department Care Team (Late st Contact Info) Description 12/22/2023 Refill [facility] - Internal Medicine [address] [facility] [address] [place] [phone] Tamia Brooks MD [address] [place] [phone] Refill Request Social History Tobacco Use [...] encounter Miscellaneous Notes * Telephone Encounter - Audra Dalal - 12/23/2023 2:47 PM CDT MEDICATION REFILL REQUEST Medication: Requested Prescriptions Pending Prescriptions Disp Refills lisinopril (Prinivil; Zestril) 40 MG tablet [Pharmacy Med Name: LISINOPRIL TABS 40MG] 90 tablet 3 Sig: TAKE 1 TABLET DAILY Last Office Visit with PCP: 11/18/2023 Last Video Visit with PCP: Visit date not found Next Appointment with PCP: 06/29/2024 Date of last refill: 10/10/2023 #90 with one refill documented in this encounter Plan of Treatment Upcoming Encounters Date Type Department Care Team (Late st Contact Info) Description 06/29/2024 10:00 AM CDT Office Visit [facility] - Internal Medicine [address] [facility] [address] [place] [phone] Tamia Brooks MD [address] [place] [phone] documented as of this encounter Goals Goal Patient Goal Type Associated Problems Recent Progress Patient-Stated? Author Blood Pressure < 140/90 Blood Pressure 130/70( 024 1:19 PM CDT) Lola Serna MA documented as of this encounter Visit Diagnoses Diagnosis Hypertension, benign essential Essential hypertension, benign Stage 3b chronic kidney disease (HCC) documented in this encounter Care Teams Seamless Tube Roller Relationship Specialty Start Date End Date Tamia Brooks MD [address] [place] [phone] PCP - General Internal Medicine 07/26/16 Tamia Brooks MD [address] [place] [phone] PCP - Attributed-MSSP 05/08/22 Yohan Barros DPM [address] [place] [address] [place] [phone] Podiatry 05/24/13 documented as of this encounter
--- OUTSIDE RECORDS SUMMARY | 2024-03-22 20:10 | XMS_ITS | Encounter Summary ---
Author Organization [facility] Address [address] [facility] [place] [address] Care Team Providers Care Beam Department Supervisor Name Role Phone Yohan Barros DPM Unavailable [phone] Tamia Brooks MD Primary Care Provider [phone] Tamia Brooks MD Unavailable [phone] Reason for Visit * Reason Onset Date Comments Medication Issue 10/10/2023 Encounter Details Date Type Department Care Team (Late st Contact Info) Description 10/10/2023 Telephone [facility] - Internal Medicine [address] [phone] Tamia Brooks MD [address] [place] [phone] Medication Issue Social History Tobacco Use Types Packs/Day Years [...] encounter Miscellaneous Notes * Telephone Encounter - Daiana Carranza - 10/10/2023 12:05 PM CDT Patient states she is going out of town and only has 1 pill left. Patient states needs a 7 day supply sent to pharmacy. * Telephone Encounter - Daiana Carranza - 10/10/2023 12:05 PM CDT Last appt: 06/18/2023 Next appt: 11/18/2023 Follow up recommendations: Last refill: 06/18/2023 Number of cancel or no shows in the last 12 months: Allergies have been reviewed. Correct pharmacy is populated. Please sign RX and close encounter. documented in this encounter Plan of Treatment Upcoming Encounters Date Type Department Care Team (Late st Contact Info) Description 06/29/2024 10:00 AM CDT Office Visit [facility] - Internal Medicine [address] [place] [address] [place] [phone] Tamia Brooks MD [address] [place] [phone] documented as of this encounter Goals Goal Patient Goal Type Associated Problems Recent Progress Patient-Stated? Author Blood Pressure < 140/90 Blood Pressure 130/70( 024 1:19 PM CDT) Lola Serna MA documented as of this encounter Visit Diagnoses Diagnosis Hypertension, benign essential Essential hypertension, benign Stage 3b chronic kidney disease (HCC) documented in this encounter Care Teams Beam Department Supervisor Relationship Specialty Start Date End Date Tamia Brooks MD [address] [place] [phone] PCP - General Internal Medicine 07/26/16 Tamia Brooks MD [address] [place] [phone] PCP - Attributed-MSSP 05/08/22 Yohan Barros, ZOYA [address] [place] [address] [place] [phone] Podiatry 05/24/13 documented as of this encounter
--- OUTSIDE RECORDS SUMMARY | 2024-03-22 20:10 | XMS_ITS | Encounter Summary ---
Author Organization [facility] Address [address] [facility] [place] [address] Care Team Providers Care Court Officer Name Role Phone Yohan Barros DPM Unavailable [phone] Tamia Brooks MD Primary Care Provider Tamia Brooks MD Unavailable [phone] Reason for Referral * Evaluate & Treat (Routine) - Authorized Specialty Diagnoses / Procedures Referred By Contac t Referred To Contact Diagnoses Primary osteoarthritis of both knees Chronic pain of right knee Tamia Brooks MD [facility] [address] [place] [phone] Ankit Thomason MD [address] [place] [id number] Referral ID Status Reason Start Date Expiration Date Visits Requested Visits Authorized [id number] Authorized Specialty Services Required 01/18/2025 1 1 ER MACHINE TENDER Reason for Visit * Reason Onset Date Comments Pain Knee 01/19/2024 Encounter Details Date Type Department Care Team (Late st Contact Info) Description 01/19/2024 Telephone [facility] Medical [facility] - Internal Medicine [address] [facility] [address] [place] [address] Tamia Brooks MD [address] [place] [address] [address] [place] [address] Pain Knee Social History Tobacco Use Types Packs/Day Years [...] encounter Miscellaneous Notes * Telephone Encounter - Natasha Vazquez LPN - 01/19/2024 1:15 PM MOLDER MACHINE TENDER Pt advised of orders Orders Placed This Encounter AMB REFERRAL TO ORTHOPEDICS Standing Status: Future Standing Expiration Date: 01/18/2025 Referral Priority: Routine Referral Type: Evaluate & Treat Referral Reason: Specialty Services Required Referred to Provider: Ankit Thomason MD Number of Visits Requested: 1 sucralfate (Carafate) 1 GM tablet Sig: Take 1 (one) tablet by mouth 4 times daily as needed Dispense: 45 tablet Refill: 2 DISCONTD: methylPREDNISolone (Medrol Dosepak) 4 MG tablet Sig: Take by mouth as directed Take as directed by mouth per package instructions. Dispense: 21 tablet Refill: 0 methylPREDNISolone (Medrol Dosepak) 4 MG tablet Sig: Take by mouth as directed Take as directed by mouth per package instructions. Dispense: 21 tablet Refill: 0 ER MACHINE TENDER * Telephone Encounter - Tamia Brooks MD - 01/19/2024 1:10 PM CST Orders Placed This Encounter AMB REFERRAL TO ORTHOPEDICS Standing Status: Future Standing Expiration Date: 01/18/2025 Referral Priority: Routine Referral Type: Evaluate & Treat Referral Reason: Specialty Services Required Referred to Provider: Ankit Thomason MD Number of Visits Requested: 1 sucralfate (Carafate) 1 GM tablet Sig: Take 1 (one) tablet by mouth 4 times daily as needed Dispense: 45 tablet Refill: 2 methylPREDNISolone (Medrol Dosepak) 4 MG tablet Sig: Take by mouth as directed Take as directed by mouth per package instructions. Dispense: 21 tablet Refill: 0 Also sent steroid pack if she wants to try that ER MACHINE TENDER * Telephone Encounter - Natasha Vazquez LPN - 01/19/2024 10:51 AM MOLDER MACHINE TENDER Seen in office on 11/17 with reports of twisting right knee while gardening - pain radiating to right ankle Pain is constant regardless of positional changes - sharp and throbbing when sitting, standing or walking Nothing seems to help the discomfort She can bear full weight on right knee but is now putting weight on left knee due to pain Right knee feels like it will give away when going up and down stairs Mild swelling is present medially from knee to ankle No redness or warmth is present to anterior or posterior regions of right knee Wearing knee brace for support Taking otc Aspirin Requesting to see Dr. Ankit Thomason - pended ER MACHINE TENDER * Telephone Encounter - Daiana Carranza - 01/19/2024 9:27 AM CST Patient states she hurt the inside of her right knee in November. Patient states it is still painful down to the sole of her foot. ER MACHINE TENDER documented in this encounter Plan of Treatment Upcoming Encounters Date Type Department Care Team (Late st Contact Info) Description 06/29/2024 10:00 AM CDT Office Visit [facility] Medical [facility] - Internal Medicine [address] [address] Tamia Brooks MD [address] [place] [phone] Scheduled Referrals Name Type Priority Associated Diagnoses Orde r Schedule AMB REFERRAL TO ORTHOPEDICS Outpatient Referral Routine Primary osteoarthritis of both knees Chronic pain of right knee 1 Occurrences starting 01/19/2024 until 01/18/2025 documented as of this encounter Goals Goal Patient Goal Type Associated Problems Recent Progress Patient-Stated? Author Blood Pressure < 140/90 Blood Pressure 130/70( 024 1:19 PM CDT) Lola Serna MA documented as of this encounter Visit Diagnoses Diagnosis Chronic pain of right knee- Primary Primary osteoarthritis of both knees Primary localized osteoarthrosis, lower leg Gastroesophageal reflux disease, unspecified whether esophagitis present documented in this encounter Care Teams Court Officer Relationship Specialty Start Date End Date Tamia Brooks MD [address] [place] [address] PCP - General Internal Medicine 07/26/16 [place] [address] [place], [place] [address] [address] [place] [address] PCP - Attributed-MSSP 05/08/22 Yohan Barros DPM [address] [phone] Podiatry 05/24/13 documented as of this encounter
--- OUTSIDE RECORDS SUMMARY | 2024-03-22 20:10 | XMS_ITS | Encounter Summary ---
Author Organization [facility] Address [address] [facility] [place] [address] Care Team Providers Care Warranty Clerk Name Role Phone Yohan Barros DPM Unavailable [phone] Tamia Brooks MD Primary Care Provider [phone] Tamia Brooks MD Unavailable [phone] Reason for Referral * Evaluate & Treat (Routine) - Closed Specialty Diagnoses / Procedures Referred By Valeria ramesh Referred To Contact Pulmonary Disease Diagnoses DAILY (obstructive sleep apnea) Tamia Brooks MD [address] [place] [phone] Truong Cadet MD [address] [place] [phone] Referral ID Status Reason Start Date Expiration Date V isits Requested Visits Authorized [id number] Closed Specialty Services Required 03/13/2023 03/12/2024 1 1 NICAL PROJECT LEAD Reason for Visit * Reason Onset Date Comments Referral 03/13/2023 Encounter Details Date Type Department Care Team (Late st Contact Info) Description 03/13/2023 Telephone [facility] - Internal Medicine [address] [place] [address] [address] [place] [address] Tamia Brooks MD [address] [phone] Referral Social History Tobacco Use Types Packs/Day Years [...] Encounter - Nancy Gracia MA - 03/13/2023 4:33 PM CST Will notify pt that provider sent over a new referral . NICAL PROJECT LEAD * Telephone Encounter - Tamia Brooks MD - 03/13/2023 1:33 PM CST Orders Placed This Encounter ??? [facility] Adult Sleep Specialist @ [facility] Enoch Cadet Standing Status: Future Standing Expiration Date: 03/12/2024 Referral Priority: Routine Referral Type: Evaluate & Treat Referral Reason: Specialty Services Required Referred to Provider: Truong Cadet MD Number of Visits Requested: [address] Cadet for DAILY management NICAL PROJECT LEAD * Telephone Encounter - Nancy Gracia MA - 03/13/2023 11:19 AM CST Pt calling to see if provider will give her a referral to see another pulmonary doctor . NICAL PROJECT LEAD documented in this encounter Plan of Treatment Upcoming Encounters Date Type Department Care Team (Late st Contact Info) Description 06/29/2024 10:00 AM CDT Office Visit [facility] - Internal Medicine [address] [facility] [address] [place] [address] Tamia Brooks MD [address] [facility] [address] [place] [address] Scheduled Referrals Name Type Priority Associated Diagnoses Order Schedule [facility] @ [facility] Outpatient Referral Routine DAILY (obstructive sleep apnea) 1 Occurrences starting 03/13/2023 until 03/12/2024 documented as of this encounter Goals Goal Patient Goal Type Associated Problems Recent Progress Patient-Stated? Author Blood Pressure < 140/90 Blood Pressure 130/70( 024 1:19 PM CDT) Lola Serna MA documented as of this encounter Visit Diagnoses Diagnosis DAILY (obstructive sleep apnea)- Primary Obstructive sleep apnea (adult) (pediatric) documented in this encounter Care Teams Warranty Clerk Relationship Specialty Start Date End Date Tamia Brooks MD [address] [address] PCP - General Internal Medicine 07/26/16 Tamia Brooks MD [address] [place] [phone] PCP - Attributed-MSSP 05/08/22 Yohan Barros DPM [address] [place] [address] [place] [phone] Podiatry 05/24/13 documented as of this encounter
--- OUTSIDE RECORDS SUMMARY | 2024-03-22 20:10 | XMS_ITS | Encounter Summary ---
Author Organization [facility] Address [address] [place] [address] Care Team Providers Care Chick Room Supervisor Name Role Phone Yohan Barros DPM Unavailable [phone] Tamia Brooks MD Primary Care Provider Tamia Brooks MD Unavailable [phone] Lelo Pichardo Unavailable [phone] Reason for Visit * Reason Onset Date Comments Outreach Preventive Care 03/05/2024 Encounter Details Date Type Department Care Team (Late st Contact Info) Description 03/05/2024 Patient Outreach [facility] Medical [facility] - Care Coordination [address] [place] [phone] Lelo Pichardo Outreach Preventive Care Social History Tobacco Use [...] encounter Miscellaneous Notes * Telephone Encounter - Lelo Pichardo - 03/05/2024 10:30 AM CST HEALTH MAINTENANCE Health Maintenance items reviewed. Patient has no Health Maintenance items that are overdue or due soon. No outreach indicated at this time. Health Maintenance Due Topic Date Due DTAP/TDAP/TD VACCINES (1 - Tdap) Never done ZOSTER VACCINE (1 of 2) Never done BONE DENSITY TESTING 03/17/2021 DIABETES-FOOT EXAM WITH MONOFILAMENT 02/16/2022 Patient engagement and response(s) for due / overdue Health Maintenance items: - Medicare Annual Wellness Visit: - appointment was scheduled for 06/18/2023 . Questionnaire was not sent/delay send via [employer]. Lelo Pichardo 03/05/2024 10:30 AM LLMENT MANAGEMENT VICE PRESIDENT documented in this encounter Plan of Treatment Upcoming Encounters Date Type Department Care Team (Late st Contact Info) Description 06/29/2024 10:00 AM CDT Office Visit [facility] Medical [facility] - Internal Medicine [address] [place] [address] [place] [phone] Tamia Brooks MD [address] [place] [phone] documented as of this encounter Goals Goal Patient Goal Type Associated Problems Recent Progress Patient-Stated? Author Blood Pressure < 140/90 Blood Pressure 130/70( 024 1:19 PM CDT) Lola Serna MA documented as of this encounter Visit Diagnoses Not on filedocumented in this encounter Care Teams Chick Room Supervisor Relationship Specialty Start Date End Date Tamia Brooks MD [address] [place] [phone] PCP - General Internal Medicine 07/26/16 Tamia Brooks MD [address] [place] [address] [place] [phone] PCP - Attributed-MSSP 3/1/23 Yohan Barros, TAMMYM [address] [place] [phone] Podiatry 05/24/13 Lelo Pichardo Care Coordination Specialist Care Management 03/04/24 03/05/24 documented as of this encounter
--- OUTSIDE RECORDS SUMMARY | 2024-03-22 20:10 | XMS_ITS | Encounter Summary ---
Author Organization [facility] Address [address] [facility] [place] [address] Care Team Providers Care Physicist Solid State Name Role Phone Yohan Barros DPM Unavailable [phone] Tamia Brooks MD Primary Care Provider [phone] Tamia Brooks MD Unavailable [phone] Reason for Visit * Reason Onset Date Comments Appointment 08/20/2022 Encounter Details Date Type Department Care Team (Late st Contact Info) Description 08/20/2022 Telephone [facility] Medical [facility] - Internal Medicine [address] [address] Tamia Brooks MD [address] [place] [phone] Appointment Social History Tobacco Use Types Packs/Day Years [...] Telephone Encounter - Carmen Salinas RN - 08/20/2022 8:34 AM CDT Patient states she just feels horrible and has for a couple weeks. She has a sore throat, congestion and cough. She is scheduled to see Dr. Brooks today 08/20/22 @ 11:20 AM. She will be masked. documented in this encounter Plan of Treatment Upcoming Encounters Date Type Department Care Team (Late st Contact Info) Description 06/29/2024 10:00 AM CDT Office Visit [facility] - Internal Medicine [address] [facility] [address] [place] [address] Tamia Brooks MD [address] [place] [address] [place] [phone] documented as of this encounter Goals Goal Patient Goal Type Associated Problems Recent Progress Patient-Stated? Author Blood Pressure < 140/90 Blood Pressure 130/70( 024 1:19 PM CDT) Lola Serna MA documented as of this encounter Visit Diagnoses Not on filedocumented in this encounter Care Teams Physicist Solid State Relationship Specialty Start Date End Date Tamia Brooks MD [address] [place] [phone] PCP - General Internal Medicine 07/26/16 Tamia Brooks MD [address] [place] [phone] PCP - Attributed-MSSP 05/08/22 Yohan Barros DPM [facility] [place] [address] [place] [phone] Podiatry 05/24/13 documented as of this encounter
--- OUTSIDE RECORDS SUMMARY | 2024-03-22 20:10 | XMS_ITS | Encounter Summary ---
Author Organization [facility] Address [address] [facility] [place] [address] Care Team Providers Care Speech And Language Specialist Name Role Phone Yohan Barros DPM Unavailable [phone] Tamia Brooks MD Primary Care Provider [phone] Tamia Brooks MD Unavailable [phone] Reason for Visit * Reason Onset Date Comments Med Question 05/05/2023 Encounter Details Date Type Department Care Team (Late st Contact Info) Description 05/05/2023 Telephone [facility] Medical [facility] - Internal Medicine [address] [address] Tamia Brooks MD [address] [place] [phone] Med Question Social History Tobacco Use [...] Miscellaneous Notes * Telephone Encounter - Audra Bernal - 05/06/2023 10:05 AM CST Pt called office and I informed her of Dr Brooks's recommendation. Pt wanted to resched her next appt with Dr Brooks as she had a conflict but I advised she try to resched the other appt as Dr Brooks isdifficult to resched at this point. IC BALANCER * Telephone Encounter - Tamia Brooks MD - 05/05/2023 5:38 PM CST As of last OV BP on the lower end and I did not have her on those meds. Hold off on refills for now. Let's discuss at next OV If she can make it this week, I have an 840 wed or 4 pm on Friday. Can move visit up. Tamia Brooks MD 05/05/2023 5:43 PM IC BALANCER * Telephone Encounter - Audra Bernal - 05/05/2023 10:16 AM CST called for refills on HCTZ and Lisinopril. Neither are on pt's current med list. Med list states pt reported no longer taking HCTZ and d/c date on Lisinopril was 08/19/22. Please advise on refills. IC BALANCER documented in this encounter Plan of Treatment Upcoming Encounters Date Type Department Care Team (Late st Contact Info) Description 06/29/2024 10:00 AM CDT Office Visit [facility] Medical [facility] - Internal Medicine [address] [facility] [address] [place] [address] Tamia Brooks MD [address] [place] [phone] documented as of this encounter Goals Goal Patient Goal Type Associated Problems Recent Progress Patient-Stated? Author Blood Pressure < 140/90 Blood Pressure 130/70( 024 1:19 PM CDT) Lola Serna MA documented as of this encounter Visit Diagnoses Not on filedocumented in this encounter Care Teams Speech And Language Specialist Relationship Specialty Start Date End Date Tamia Brooks MD [address] [facility] [address] [place] [address] PCP - General Internal Medicine 07/26/16 Tamia Brooks MD [address] [facility] [address] [place] [address] PCP - Attributed-MSSP 05/08/22 Yohan Barros DPM [address] [phone] Podiatry 05/24/13 documented as of this encounter
--- OUTSIDE RECORDS SUMMARY | 2024-03-22 20:10 | XMS_ITS | Encounter Summary ---
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 Name Role Phone Yohan Barros DPM Unavailable [phone] Tamia Brooks MD Primary Care Provider Tamia Brooks MD Unavailable [phone] Reason for Referral * Radiology Services (Routine) - Pending Review Specialty Diagnoses / Procedures Referred By Contac t Referred To Contact Diagnoses Screening mammogram, encounter for Procedures MAMMO BILAT SCREENING W Tamia Nunez MD [address] [facility] [address] [place] [phone] Referral ID Status Reason Start Date Expiration Date V isits Requested Visits Authorized [id number] Pending Review 06/18/2023 06/17/2024 1 1 * Evaluate & Treat - Closed Specialty Diagnoses / Procedures Referred By Contismael t Referred To Contact Gastroenterology Diagnoses Screen for colon cancer Tamia Brooks MD [address] [facility] [address] [place] [address] [place] [address] Referral ID Status Reason Start Date Expiration Date V isits Requested Visits Authorized [id number] Closed Specialty Services Required 06/18/2023 06/17/2024 1 1 * Radiology Services (Routine) - Pending Review Specialty Diagnoses / Procedures Referred By Contac t Referred To Contact Bone Densitometry Diagnoses Asymptomatic postmenopausal state Procedures DEXA BONE DENSITY AXIAL SKELETON Tamia Brooks MD [address] [place] [address] [place] [phone] Referral ID Status Reason Start Date Expiration Date V isits Requested Visits Authorized [id number] Pending Review 06/18/2023 06/17/2024 1 1 Reason for Visit * Reason Comments Medicare Subsequent Annual Wellness Visi t Encounter Details Date Type Department Care Team (Late st Contact Info) Description 06/18/2023 10:00 AM CDT Office Visit [facility] - Internal Medicine [address] [place] [address] [place] [phone] Tamia Brooks MD [address] [place] [address] [place] [phone] Routine general medical examination at health care facility (Primary Dx); Type 2 diabetes mellitus with stage 3a chronic kidney disease, without long-term current use of insulin (HCC); Class 1 obesity due to excess calories with serious comorbidity and body mass index (BMI) of 32.0 to 32.9 in adult; Mixed hyperlipidemia; Chronic diastolic congestive heart failure (HCC); Hypertension, benign essential; DAILY (obstructive sleep apnea); Stage 3b chronic kidney disease (HCC); Primary osteoarthritis of both knees; Screen for colon cancer; Screening mammogram, encounter for; Asymptomatic postmenopausal state; Gastroesophageal reflux disease, unspecified whether esophagitis present Social History Tobacco Use Types Packs/Day Years [...] Sign Reading Time Taken Comments Blood Pressure 127/65 06/18/2023 9:51 AM CDT Pulse 98 06/18/2023 9:51 AM CDT Temperature 37.1 ??C (98.8 ??F) 06/18/2023 9:51 AM CD T Respiratory Rate - - Oxygen Saturation 97% 06/18/2023 9:51 AM CDT Inhaled Oxygen Concentration - - Weight 88.4 kg (194 lb 12.8 oz) 06/18/2023 9:51 AM CDT Height 165.1 cm (5' 5 ) 06/18/2023 9:51 AM CDT Body Mass Index 32.42 06/18/2023 9:51 AM CDT documented in this encounter Patient Instructions * Patient Instructions* Tamia Brooks MD - 06/18/2023 10:10 AM CDT Please arrive 15 minutes early to your next appointment. Following your visit, you may receive a survey via email or U.S. Mail about your experience with us. We encourage you to respond to this confidential survey about our care. We at [facility] are committed toalways providing you with the most exceptional care. Your feedback helps us provide quality serviceat every visit. Labs: You have labs pending. You do need to be fasting for this. Please go to your nearest [facility] to get this done at your convenience. There is one in our building ([address] [place] [address]), [address]. The orders are electronic so you do not need any paperwork. You will need to bring your photo id and insurance card to the lab. Medicare Annual Wellness Visit Checklist Patient Care Team: Tamia Brooks MD as PCP - General (Internal Medicine) Yohan Barros DPM (Podiatry) The following list shows your recommended preventative service schedule and due dates. Health Maintenance Topic Date Due DTAP/TDAP/TD VACCINES (1 - Tdap) Never done ZOSTER VACCINE (1 of 2) Never done DIABETES-NEPHROPATHY 02/10/2021 BONE DENSITY TESTING 03/17/2021 DIABETES-SERUM CREATININE 01/12/2022 DIABETES-FOOT EXAM WITH MONOFILAMENT 02/16/2022 DIABETES RETINOPATHY SCREENING 06/19/2023 Colorectal Cancer Screening 11/06/2023 DIABETES-HGB A1C 12/18/2023 MAMMOGRAM 06/10/2024 MEDICARE AWV - 12 MONTHS 06/17/2024 PNEUMOCOCCAL VACCINE 65+ Completed INFLUENZA VACCINE Completed HEPATITIS C SCREENING Completed COVID-19 VACCINE Completed Respiratory Syncytial Virus (RSV) Vaccine Pt: or over 60 yrs Completed HEPATITIS B VACCINE Aged Out HIB VACCINE Aged Out HPV VACCINE Aged Out MENINGOCOCCAL VACCINE Aged Out Topics that are Completed mean that they will not need to be done again. Topics that are Aged Out are things that have not been done but no longer are applicable to you. Keep up-to-date Healthcare Power of Teletype Technician and Living Will documents with our office. In any emergency or unexpected hospitalization, these documents will then be visible for care providers to honor your wishes. Patient Education documented in this encounter Progress Notes * Tamia Brooks MD - 06/18/2023 10:08 AM CDT Images from the original note were not included. Tamia Brooks M.D [facility] - Division of Internal Medicine [address], [address] [place], [place] [id number] MEDICARE ANNUAL WELLNESS VISIT (12 months after Welcome to Medicare and then every 11 months) (G0438 for first AWV. G0439 for subsequent AWVs) REVIEW OF BENEFICIARY'S MEDICAL AND SOCIAL HISTORY Patient Active Problem List: Allergic rhinitis Hypertension, benign essential Hyperlipidemia Anhydrotic dermatitis of foot 04/27/12 Primary osteoarthritis of both knees Prediabetes Situational mixed anxiety and depressive disorder CKD (chronic kidney disease) stage 3, GFR 30-59 ml/min ([facility]) Osteopenia DAILY (obstructive sleep apnea) Class 1 obesity due to excess calories with serious comorbidity and body mass index (BMI) of 32.0 to 32.9 in adult Chronic diastolic congestive heart failure (HCC) Type 2 diabetes mellitus with stage 3 chronic kidney disease, without long-term current use of insulin (HCC) Diet-controlled diabetes mellitus (HCC) Past Medical History: Diagnosis Date ??? Anhydrotic dermatitis of foot 04/27/12 04/27/2012 ??? Adductor tendonitis, right thigh 04/27/12 04/27/2012 ??? Allergic rhinitis 09/20/2008 ??? Cataract 12/07/2013 ??? Herpes zoster 04/12/2010 ??? Hyperlipidemia 09/20/2008 ??? Hypertension 09/20/2008 ??? Insulin resistance 10/27/2012 ??? Primary osteoarthritis of both knees 10/27/2012 ??? UTI Past Surgical History: Procedure Laterality Date ??? Cataract Removal Bilateral 2013 ??? COLONOSCOPY N/A 11/05/2013 N/A; COLONOSCOPY SCREEN ??? ENDOSCOPY, COLON, SCREENING 06/23/06 ??? ENDOSCOPY, UPPER N/A 10/04/2016 N/A; ESOPHAGOGASTRODUODENOSCOPY (EGD) ??? ENDOSCOPY, UPPER 10/04/2016 gastritis, hiatus hernia-Yogi ??? Hysterectomy Social History Socioeconomic History ??? Marital status: Spouse name: Not on file ??? Number of children: 0 ??? Years of education: 13+ ??? Highest education level: Not on file Occupational History ??? Not on file Tobacco Use ??? Smoking status: Former Packs/day: 0.20 Years: 12.00 Additional pack years: 0.00 Total pack years: 2.40 Types: Cigarettes Quit date: 03/10/1990 Years since quittin.2 ??? Smokeless tobacco: Never Vaping Use ??? Vaping Use: Never used Substance and Sexual Activity ??? Alcohol use: Yes Comment: occ ??? Drug use: No ??? Sexual activity: Yes Partners: Male Other Topics Concern ??? Service No ??? Blood Transfusions No ??? Caffeine Concern No ??? Occupational Exposure No ??? Hobby Hazards No ??? Sleep Concern Yes ??? Stress Concern Yes ??? Weight Concern Yes ??? Special Diet Yes ??? Back Care Yes ??? Exercise Yes ??? Bike Helmet Yes ??? Seat Belt Yes ??? Self-Exams Yes Social History Narrative ??? Not on file Social Determinants of Health Financial Resource Strain: Not on file Food Insecurity: Not on file Transportation Needs: Not on file Stress: Not on file Housing Stability: Not on file Family History Problem Relation Name Age of Onset ??? Heart Failure Mother ??? Lung Cancer Father smoker ??? Cancer - Colon Brother 55 2008 ??? Cancer - Breast Maternal Aunt 70 Allergies Allergen Reactions ??? Darvon Nausea and/or Vomiting and Dizziness Current Outpatient Medications on File Prior to Visit Medication Sig Dispense Refill ??? blood glucose test strip Use 1 (one) strip as directed 100 strip 0 ??? calcium 600 MG tablet Take 2 (two) tablets by mouth daily with food ??? Cetirizine HCl (ZYRTEC PO) Take by mouth nightly as needed ??? Cholecalciferol (VITAMIN D-3) 1000 UNITS Take by mouth once daily ??? glucosamine-chondroitin (GLUCOSAMINE CHONDR COMPLEX) 500-400 MG capsule Take 1 capsule by mouthonce daily 30 capsule 5 ??? metoclopramide (Reglan) 10 MG tablet Take 1 (one) tablet by mouth 3 times daily before meals 90tablet 4 ??? rosuvastatin (Crestor) 10 MG tablet TAKE 1 TABLET DAILY 90 tablet 3 ??? sucralfate (Carafate) 1 GM tablet Take 1 (one) tablet by mouth 4 times daily as needed 45 tablet 2 No current facility-administered medications on file prior to visit. Immunization History Administered Date(s) Administered ??? COVID PFIZER 12+YR 30MCG/0.3mL 12/05/2022 ??? COVID PFIZER BIVALENT 12Y+ 30mcg/0.3ML 02/20/2022 ??? Covid Moderna primary monovalent 12+ yr 0.5mL 05/01/2020, 05/29/2020 ??? FLU VACCINE IIV INC ANTIG PF IM 01/06/2015, 12/29/2015, 12/31/2018, 12/30/2019 ??? FLU VACCINE QUAD CCIIV4 PF IM 12/31/2021 ??? FLU VACCINE SPILI HIGH-DOSE PF IM 01/06/2015, 12/29/2015 ??? FLU VACCINE TRI IIV3 SPLIT IM (AFLURIA) 11/17/2008, 01/10/2012, 01/13/2013, 12/05/2021 ??? FLU VACCINE TRI IIV3 SPLIT PF IM (FLUVIRIN) 12/03/2017 ??? FLU, HISTORIC VACCINE 12/30/2019, 01/18/2021 ??? INFLUENZA 11/17/2008, 12/08/2009, 01/06/2011, 01/10/2012, 01/13/2013, 01/13/2013, 11/22/2013, 01/06/2015, 12/29/2015, 12/31/2018, 01/18/2021, 12/05/2022 ??? Influenza Vaccine Pf Cell Cult (18+yrs) IM 12/03/2017 ??? MODERNA SARS-COV-2 COVID-19 VACCINE 0.25ML 01/18/2021 ??? PNEUMOCOCCAL PPSV23 01/08/2010, 09/16/2016 ??? Pneumococcal Pcv13 Conj 07/10/2015 ??? RSV AREXVY 60YR+ 0.5ML 12/05/2022 HISTORY OF PRESENT ILLNESS Chief Complaint Patient presents with ??? Medicare Subsequent Annual Wellness Visit GERD/hiatial hernia - she is having more sxs. - was seen at in [place] for cardiac rule out. - she is taking prevacid. Also has to take maalox after meal. Pt on reglan as well. - sxs are controlled overall. Vertigo - improved after taking unknwon med - she is having PND and nasal congestion ?? HTN/CKD3 - BP at home:??not checking?? - medication compliance is good - dietary compliance is good - denies CP, SOB, LE edema BP Readings from Last 3 Encounters: 06/18/23 127/65 09/11/22 110/68 08/20/22 138/76 ??HLD - on statin - denies myalgias?? The 10-year ASCVD risk score (Darinel CASTRO, et al., 2019) is: 35.6% Values used to calculate the score: Age: 73 years Sex: Female Is Non- : No Diabetic: Yes Tobacco smoker: No Systolic Blood Pressure: 127 mmHg Is BP treated: Yes HDL Cholesterol: 39 mg/dL Total Cholesterol: 166 mg/dL ?? DDD lumbar?? - doing ok. Not needing meds? DAILY - on CPAP nightly?DM2??- diet controlled?? - not checking BG - a1c today 6.6%?? - BG at home:??not checking?? - hypoglycemia/symptoms:??none - tests??1-2?per day - DM eye exam scheduled.? Diet:?Smaller portions, more veggies, and voss diet?? Water intake: could improve Exercise:??not currently?? Sleep:??is good.? Recent Labs Component Name 01/12/21 0920 02/11/20 [...] 284 289 281 Recent Labs Component Name 06/18/23 0940 09/11/22 1105 02/20/22 1042 HGBA1C 5.9 6.6 6.5 Recent Labs Component Name 01/12/21 0920 02/11/20 0800 10/19/18 1120 CHOL 166 201* 198 TRIG 214* 196* 211* HDL 39* 40 43 LDLCALC 91 126* 113* No results for input(s): MICROALBUGML in the last 97744 hours. Recent Labs Component Name 02/11/20 0800 MICROALBCREA 13 No results for input(s): INR in the last 82360 hours. Wt Readings from Last 3 Encounters: 06/18/23 88.4 kg (194 lb 12.8 oz) 09/11/22 91.3 kg (201 lb 3.2 oz) 08/20/22 90.7 kg (200 lb) Weight change: - 7 lbs since the last visit here. 06/18/2023 10:51 AM Medicare Annual Wellness Visit 1. During the past 4 weeks, how would you rate your health in general? Very good 2. Do you have problems with stress, anger, loneliness, isolation or fatigue? No 3. Do you smoke/vape/use tobacco? No 4. How often did you have a drink containing alcohol in the past year? Monthly or less 5. Do you use recreational drugs? Never 6. What best describes your activity level during the past 4 weeks? Moderately Active 7. Do you participate or engage in physical activity or exercise each week? Yes 7A .How many minutes per week? Greater than 150 8. Do you have sexual problems or difficuilties with physical intimacy? No 9. Do you always fasten your seat belt when you are in a car? Yes 10. Are there smoke alarms and carbon monoxide alarms in your home? Yes 11. In the bedroom, are you able to quickly and easily reach a light or light switch? Yes 12. Is the path from your bed to the bathroom free of obstacles with adequate lighting? Yes 13. Do you have throw rugs on the floor or do you have to walk around or step over cords or wires? No 14. Does your home have grab bars in the bathroom and handrails on the stairs? No 15. Have you fallen in the last year? No 16. Do you feel unsteady when standing or walking? No 17. Do you worry about falling? No 18. Do you need help from others to perform everyday activities such as: Eating, getting dressed, grooming, bathing, walking or using the restroom? No 19. Do you need help from others to perform everyday activities such as: Shopping, housework, meal preparation, managing money, or using the telephone? No 20. Do you have difficulty in getting transportation to where you need to go? No 21. Do you have any concerns about your nutrition or access to food? No 22. Do you have trouble taking medications the way you have been instructed to take them? No 24. Do you have problems with your teeth or dentures? No 25. In the past 4 weeks, how would you rate your pain, aches, soreness, or discomfort? Very mild pain 26. Do you have any history of leaking urine or urinary incontinence? No CURRENT DIET limits carbohydrates, limits fats and cholestrol intake, limits salt intake DEPRESSION SCREENING (Annals Int Med., 151(11): Feb 15; pp 704-790) Depression: PHQ-2:Patient Health Questionnaire-2 Score: 0 PHQ-9: Depression risk factors identified: none FALL RISK 15. Have you fallen in the last year?: No CODE STATUS DNI ADVANCE DIRECTIVE Do you have a medical advance directive:No Do you have a power of patent prosecution attorney:Yes Was form for POA/Advance directive given: No DURABLE MEDICAL EQUIPMENT [ ] Needs a cane due to gait instability [ ] Needs a walker due to gait instability [ ] Needs a hospital bed due to difficulty with positioning. [ ] Needs oxygen due to hypoxia. [ x ] Needs CPAP/APAP for sleep apnea [ ] Needs diabetic monitoring supplies for diabetes. [ ] No routine use of DME LIST OF PROVIDERS Patient Care Team: Tamia rBooks MD as PCP - General (Internal Medicine) Yohan Barros DPM (Podiatry) PHYSICAL EXAM Vitals: 06/18/23 0951 BP: 127/65 Pulse: 98 Temp: 98.8 ??F (37.1 ??C) SpO2: 97% Weight: 88.4 kg (194 lb 12.8 oz) Height: 1.651 m (5' 5 ) Body mass index is 32.42 kg/m??. CrCl cannot be calculated (Patient's most recent lab result is older than the maximum 15 days allowed.). GEN: Alert. In no acute distress. PSYCH: Pleasant. Answers questions appropriately. COGNITIVE: WNL Get Up and Go Test: 20 seconds Skin: No rash or palpable lesion. Eyes: PERRLA EEMT: TM's normal, Hearing intact, pharynx clear Neck: Supple, no goiter Nodes: no cervical, axillary or inguinal adenopathy Resp: normal effort with clear breath sounds. CV: regular rhythm, without murmur or gallop, no edema LE, carotid and pedal pulses Abd: NABS, nontender, no mass or enlarged liver felt Psych: Ox3, mood normal Neuro: CN 2-12 intact MS: motor normal all 4 extrem No results found. SCREENING SCHEDULE Health Maintenance Topic Date Due ??? DTAP/TDAP/TD VACCINES (1 - Tdap) Never done ??? ZOSTER VACCINE (1 of 2) Never done ??? DIABETES-NEPHROPATHY 02/10/2021 ??? BONE DENSITY TESTING 03/17/2021 ??? DIABETES-SERUM CREATININE 01/12/2022 ??? DIABETES-FOOT EXAM WITH MONOFILAMENT 02/16/2022 ??? DIABETES RETINOPATHY SCREENING 06/19/2023 ??? Colorectal Cancer Screening 11/06/2023 ??? DIABETES-HGB A1C 12/18/2023 ??? MAMMOGRAM 06/10/2024 ??? MEDICARE AWV - 12 MONTHS 06/17/2024 ??? PNEUMOCOCCAL VACCINE 65+ Completed ??? INFLUENZA VACCINE Completed ??? HEPATITIS C SCREENING Completed ??? COVID-19 VACCINE Completed ??? Respiratory Syncytial Virus (RSV) Vaccine Pt: or over 60 yrs Completed ??? HEPATITIS B VACCINE Aged Out ??? HIB VACCINE Aged Out ??? HPV VACCINE Aged Out ??? MENINGOCOCCAL VACCINE Aged Out EDUCATION, COUNSELING, AND REFERRAL BASED ON THE PREVIOUS SCREENING Above screenings were performed and referrals were made as appropriately needed. Orders Placed This Encounter ??? DEXA BONE DENSITY AXIAL SKELETON Standing Status: Future Standing Expiration Date: 06/17/2024 Order Specific Question: Release to patient Answer: Immediate Order Specific Question: Bone Density Protocol: Answer: Include TBS calculation if indicated and available ??? MAMMO BILAT SCREENING W TEJ Standing Status: Future Standing Expiration Date: 06/17/2024 Order Specific Question: Release to patient Answer: Immediate ??? CBC WITH DIFFERENTIAL Order Specific Question: Release to patient Answer: Immediate ??? COMPREHENSIVE METABOLIC PANEL Order Specific Question: Release to patient Answer: Immediate ??? LIPID PROFILE REFLEX LDL DIRECT Order Specific Question: Release to patient Answer: Immediate ??? MICROALB/CREAT RATIO URINE RANDOM PANEL Order Specific Question: Release to patient Answer: Immediate ??? VITAMIN D 25-HYDROXY Order Specific Question: Release to patient Answer: Immediate ??? AMB REFERRAL TO GASTROENTEROLOGY Standing Status: Future Standing Expiration Date: 06/17/2024 Referral Type: Evaluate & Treat Referral Reason: Specialty Services Required Referral Location: [facility] Number of Visits Requested: 1 ??? HEMOGLOBIN A1C - POINT OF CARE (HgbA1C) Order Specific Question: Release to patient Answer: Immediate ??? lisinopril (Prinivil; Zestril) 40 MG tablet Sig: Take 1 (one) tablet by mouth once daily Dispense: 90 tablet Refill: 1 ??? lansoprazole (Prevacid) 15 MG capsule Sig: Take 1 (one) capsule to 2 (two) capsules by mouth once daily TO IMPROVE HEARTBURN SYMPTOMS Reasons: Gastroesophageal Reflux Disease Dispense: 60 capsule Refill: 1 ICD-10-CM 1. Type 2 diabetes mellitus with stage 3a chronic kidney disease, without long- term current use of insulin (HCC) E11.22 HEMOGLOBIN A1C - POINT OF CARE (HgbA1C) N18.31 CBC WITH DIFFERENTIAL COMPREHENSIVE METABOLIC PANEL LIPID PROFILE REFLEX LDL DIRECT 2. Routine general medical examination at health care facility Z00.00 3. Class 1 obesity due to excess calories with serious comorbidity and body mass index (BMI) of 32.0 to 32.9 in adult E66.09 Z68.32 4. Mixed hyperlipidemia E78.2 5. Chronic diastolic congestive heart failure (HCC) I50.32 6. Hypertension, benign essential I10 MICROALB/CREAT RATIO URINE RANDOM PANEL lisinopril (Prinivil; Zestril) 40 MG tablet 7. DAILY (obstructive sleep apnea) G47.33 8. Stage 3b chronic kidney disease (HCC) N18.32 MICROALB/CREAT RATIO URINE RANDOM PANEL VITAMIN D 25-HYDROXY lisinopril (Prinivil; Zestril) 40 MG tablet 9. Primary osteoarthritis of both knees M17.0 10. Screen for colon cancer Z12.11 AMB REFERRAL TO GASTROENTEROLOGY 11. Screening mammogram, encounter for Z12.31 MAMMO BILAT SCREENING W TEJ 12. Asymptomatic postmenopausal state Z78.0 DEXA BONE DENSITY AXIAL SKELETON 13. Gastroesophageal reflux disease, unspecified whether esophagitis present K21.9 lansoprazole (Prevacid) 15 MG capsule GERD - moderately controlled - continue same Vertigo/PND/seasonal allergies - uncontrolled - restart flonase ?? HTN/CKD3 - controlled - continue same ??HLD - controlled - continue same ?? DDD lumbar?? - controlled - continue same ?? DAILY - continue CPAP nightly ?DM2 - improved. Keep up the good work. Return for 5-7 mths f/u . * Nancy Gracia MA - 06/18/2023 10:02 AM CDT Office Visit on 06/18/23 HEMOGLOBIN A1C - POINT OF CARE (HgbA1C) Result Value Ref Range Hemoglobin A1c POCT 5.9 % Expiration Date 02.23.25 Lot # [id number] QC Verified Yes Yes documented in this encounter Plan of Treatment Upcoming Encounters Date Type Department Care Team (Late st Contact Info) Description 06/29/2024 10:00 AM CDT Office Visit [facility] - Internal Medicine [address] [place] [address] [place] [address] [place] [address] [address] [place] [address] Scheduled Orders Name Type Priority Associated Diagnoses Orde r Schedule DEXA BONE DENSITY AXIAL SKELETON Imaging Routine Asymptomatic postmenopausal state 1 Occurrences starting 06/18/2023 until 06/17/2024 Scheduled Referrals Name Type Priority Associated Diagnoses Order Schedule AMB REFERRAL TO GASTROENTEROLOGY Outpatient Referral Routine Screen for colon cancer 1 Occurrences starting 06/18/2023 until 06/17/2024 documented as of this encounter Goals Goal Patient Goal Type Associated Problems Recent Progress Patient-Stated? Author Blood Pressure < 140/90 Blood Pressure 130/70( 024 1:19 PM CDT) No Lola Neff MA documented as of this encounter Procedures Procedure Name Priority Date/Time Associated Diagnosis Comments LIPID PROFILE REFLEX LDL DIRECT Routine 09/23/2023 2:28 PM CDT Type 2 diabetes mellitus with stage 3a chronic kidney disease, without long-term current use of insulin (HCC) MICROALB/CREAT RATIO URINE RANDOM PANEL Routine 09/23/2023 2:28 PM CDT Hypertension, benign essential Stage 3b chronic kidney disease (HCC) VITAMIN D 25-HYDROXY Routine 09/23/2023 2:28 PM CDT Stage 3b chronic kidney disease (HCC) CBC W AUTO DIFFERENTIAL Routine 09/23/2023 2:28 PM CDT Type 2 diabetes mellitus with stage 3a chronic kidney disease, without long-term current use of insulin (HCC) COMPREHENSIVE METABOLIC PANEL Routine 09/23/2023 2:28 PM CDT Type 2 diabetes mellitus with stage 3a chronic kidney disease, without long-term current use of insulin (HCC) HEMOGLOBIN A1C - POINT OF CARE (AMB) Routine 06/18/2023 9:40 AM CDT Type 2 diabetes mellitus with stage 3a chronic kidney disease, without long-term current use of insulin (HCC) documented in this encounter Results * VITAMIN D 25-HYDROXY (09/23/2023 2:28 PM CDT) Vitamin D, 25 Hydroxy 73.3 30 - 80 ng/mL [facility] INSURANCE BILL Comment: Vitamin D Status: ?Deficiency ? <20 ? ng/mL ?Insufficiency ?? 20-30 ??ng/mL ?Sufficiency ? 30-100 ng/mL ?Toxicity ? >100 ?ng/mL Blood BLOOD SPECIMEN / Unknown 09/23/2023 2:28 PM CDT 09/23/2023 Narrative Resulting Agency Comment Lab Testing performed at: [address] ??[facility] [id number] Tamia Brooks MD LAB - CHEMISTRY PREETI COSTA [facility] INSURANCE BILL [address] [place] [address] * MICROALB/CREAT RATIO URINE RANDOM PANEL (09/23/2023 2:28 PM CDT) Creatinine Urine 138.17 mg/dL [facility] INSURANCE BILL Microalbumin Urine 3.5 mg/dL [facility] INSURANCE BILL Microalbumin/Crea tinine Ratio 25 <30 mg/g [facility] INSURANCE BILL Urine URINE SPECIMEN OBTAINED BY CLEAN CATCH PROCEDURE / Unknown 09/23/2023 2:28 PM CDT 09/23/2023 Narrative Resulting Agency Comment Lab Testing performed at: [address] ??[facility] [id number] Tamia Brooks MD LAB - URINE CHEMISTR Y ORDERABLES Performing Organization Address City/[facility] Co de Phone Number [facility] INSURANCE BILL [address] [place] [address] * (ABNORMAL) LIPID PROFILE REFLEX LDL DIRECT [...] Resulting Agency Comment Lab Testing performed at: [address] ??[facility] [phone] Tamia Brooks MD LAB - CHEMISTRY ORDE RABLES Performing Organization Address City/[facility] Co de Phone Number [facility] INSURANCE BILL [address] [place] [address] * (ABNORMAL) COMPREHENSIVE METABOLIC PANEL (09/23/2023 2:28 PM CDT) Glucose 113(H) 70 - 105 mg/dL [facility] [...] Resulting Agency Comment Lab Testing performed at: [address] ??[facility] [phone] Tamia Brooks MD LAB - CHEMISTRY PREETI COSTA [facility] INSURANCE BILL [address] [place] [address] * (ABNORMAL) CBC WITH DIFFERENTIAL (09/23/2023 2:28 PM CDT) WBC 9.1 4.0 - 10.7 x10E9/L [facility] [...] Resulting Agency Comment Lab Testing performed at: [address] ??[facility] [phone] Tamia Brooks MD LAB - HEMATOLOGY ORD ERABLES [facility] INSURANCE BILL [address] [place] [address] * MAMMO BILAT SCREENING W TEJ (06/23/2023) Anatomical Region Laterality Modality Breast Bilateral Mammography 06/23/2023 Tamia Brooks MD MAMMO ORDERABLES * HEMOGLOBIN A1C - POINT OF CARE (HgbA1C) (06/18/2023 9:40 AM CDT) Hemoglobin A1c POCT 5.9 % [facility] Expiration Date 02.23.[address] [facility] [address] [facility] Lot # [id number] [facility] QC Verified Yes Yes [facility] Blood BLOOD SPECIMEN / Unknown 06/18/2023 9:40 AM CDT Tamia Brooks MD LAB - POINT OF CARE ORDERABLES [facility] [address], [address] [phone] documented in this encounter Visit Diagnoses Diagnosis Routine general medical examination at health care facility- Primary Routine general medical examination at a health care facility Type 2 diabetes mellitus with stage 3a chronic kidney disease, without long-term current use of insulin (HCC) Class 1 obesity due to excess calories with serious comorbidity and body mass index (BMI) of 32.0 to 32.9 in adult Mixed hyperlipidemia Chronic diastolic congestive heart failure (HCC) Chronic diastolic heart failure Hypertension, benign essential Essential hypertension, benign DAILY (obstructive sleep apnea) Obstructive sleep apnea (adult) (pediatric) Stage 3b chronic kidney disease (HCC) Primary osteoarthritis of both knees Primary localized osteoarthrosis, lower leg Screen for colon cancer Special screening for malignant neoplasms, colon Screening mammogram, encounter for Asymptomatic postmenopausal state Gastroesophageal reflux disease, unspecified whether esophagitis present documented in this encounter Care Teams 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
--- OUTSIDE RECORDS SUMMARY | 2024-03-22 20:10 | XMS_ITS | Encounter Summary ---
Author Organization [facility] Address [address] [facility] [place] [address] Care Team Providers Care Grill Chef Name Role Phone Yohan Barros DPM Unavailable [phone] Tamia Brooks MD Primary Care Provider Tamia Brooks MD Unavailable [phone] Reason for Referral * Durable Medical Equipment - Pending Review Specialty Diagnoses / Procedures Referred By Contac t Referred To Contact Diagnoses DAILY (obstructive sleep apnea) Ramon Parker MD [address] [place] [address] [facility] - [address] [address] Referral ID Status Reason Start Date Expiration Date Visits Requested Visits Authorized [id number] Pending Review Specialty Services Required 07/16/2023 07/15/2024 1 1 Reason for Visit * Reason Onset Date Comments Durable Medical Equipment 07/16/2023 Encounter Details Date Type Department Care Team (Late st Contact Info) Description 07/16/2023 Telephone [facility] - Pulmonology [address] [place] [address] Ramon Parker MD [address] [place] [address] [address] [place] [address] Durable Medical Equipment Social History Tobacco Use Types Packs/Day Years [...] encounter Miscellaneous Notes * Telephone Encounter - Lizbeth Lu - 07/17/2023 11:27 AM CDT DME co notified * Telephone Encounter - Ramon Parker MD - 07/16/2023 3:30 PM CDT Order placed. Please fax if necessary * Telephone Encounter - Lizbeth Lu - 07/16/2023 2:33 PM CDT Pt calling to state she needs a new order for a new cpap to go [facility]. Her machine is telling her it has reached its life expectancy INGRID: 04/30/21 NOV: 09/02/23 documented in this encounter Plan of Treatment Upcoming Encounters Date Type Department Care Team (Late st Contact Info) Description 06/29/2024 10:00 AM CDT Office Visit [facility] - Internal Medicine [address] [place] [address] [address] [place] [address] Tamia Brooks MD [address] [place] [address] [address] [place] [address] Scheduled Referrals Name Type Priority Associated Diagnoses Order Schedule AMB REFERRAL FOR DME Outpatient Referral Routine DAILY (obstructive sleep apnea) 1 Occurrences starting 07/16/2023 until 07/16/2024 documented as of this encounter Goals Goal Patient Goal Type Associated Problems Recent Progress Patient-Stated? Author Blood Pressure < 140/90 Blood Pressure 130/70( 024 1:19 PM CDT) Lola Serna MA documented as of this encounter Visit Diagnoses Diagnosis DAILY (obstructive sleep apnea)- Primary Obstructive sleep apnea (adult) (pediatric) documented in this encounter Care Teams Grill Chef Relationship Specialty Start Date End Date Tamia Brooks MD [address] [place] [address] PCP - General Internal Medicine 07/26/16 Tamia Brooks MD [address] [facility] [address] [place] [phone] PCP - Attributed-MSSP 05/08/22 Yohan Barros, ZOYA [address] [phone] Podiatry 05/24/13 documented as of this encounter
--- OUTSIDE RECORDS SUMMARY | 2024-03-22 20:10 | XMS_ITS | Encounter Summary ---
Author Organization [facility] Address [address] [facility] [place] [address] Care Team Providers Care Macerator Operator Name Role Phone Yohan Barros DPM Unavailable [phone] Tamia Brooks MD Primary Care Provider [phone] Encounter Details Date Type Department Care Team (Late st Contact Info) Description 04/03/2022 Patient Outreach [facility] - Care Coordination [address] [place] [address] Darcy Torres Social History Tobacco Use Types Packs/Day Years [...] Coronavirus/COVID-19? No / Unsure 03/08/2022 11:15 AM WALL COVERING INSTALLER documented as of this encounter Miscellaneous Notes * Telephone Encounter - Darcy Torres - 04/03/2022 4:21 PM CST Chart analysis for Annual Care Gap Review. This is an active touch. I spoke with the patient or caregiver. Health Maintenance reviewed for open care gaps and closure process initiated. HM items to be addressed: Mammogram and Diabetic Eye Exam Health Maintenance Due Topic Date Due ??? DTAP/TDAP/TD VACCINES (1 - Tdap) Never done ??? ZOSTER VACCINE (1 of 2) Never done ??? DIABETES-EYE EXAM 12/08/2019 ??? MAMMOGRAM 04/29/2020 ??? BONE DENSITY TESTING 03/17/2021 ??? DIABETES-FOOT EXAM WITH MONOFILAMENT 02/16/2022 MyChar Enrollment: Already Active Patient was notified of the following health maintenance care gaps, and instructed on the importance of routine wellness testing. ??? Diabetic Measures o Eye Exam: N/A - Exam Location: N/A o A1C: N/A o Urine Microalbumin: N/A ??? Diagnostic Testing o Mammogram: discussed o Colon CA Screen: N/A ??? Immunization o Flu: N/A o Darcy Torres 04/03/2022 4:21 PM COVERING INSTALLER documented in this encounter Plan of Treatment Upcoming Encounters Date Type Department Care Team (Late st Contact Info) Description 06/29/2024 10:00 AM CDT Office Visit [facility] - Internal Medicine [address] [place] [phone] Tamia Brooks MD [address] [place] [phone] documented as of this encounter Goals Goal Patient Goal Type Associated Problems Recent Progress Patient-Stated? Author Blood Pressure < 140/90 Blood Pressure 130/70( 024 1:19 PM CDT) No Lola Neff MA documented as of this encounter Visit Diagnoses Not on filedocumented in this encounter Care Teams Macerator Operator Relationship Specialty Start Date End Date Tamia Brooks MD [address] [place] [place] [phone] PCP - General Internal Medicine 07/26/16 Yohan Barros DPM [address] [place] [phone] Podiatry 05/24/13 documented as of this encounter
--- OUTSIDE RECORDS SUMMARY | 2024-03-22 20:10 | XMS_ITS | Encounter Summary ---
Author Organization [facility] Address [address] [place] [address] Care Team Providers Care Testing Machine Operator Name Role Phone Jhonathan Fisher MD Primary Care Provider Opal ramírez Encounter Details Date Type Department Care Team (Latest Contact Info) Description 12/27/1998 Outpatient Historical [facility] Jhonathan Nunez MD Other screening mammogram [...] Primary documented in this encounter Care Teams Testing Machine Operator Relationship Specialty Start Date End Date Jhonathan Fisher MD PCP - General 02/24/15 documented as of this encounter
--- OUTSIDE RECORDS SUMMARY | 2024-03-22 20:10 | XMS_ITS | Clinical Summary ---
Author Organization [facility] Address [address] [facility] [place] [address] Care Team Providers Care Career Manager Name Role Phone Yohan Barros DPM Unavailable [phone] Tamia Brooks MD Primary Care Provider [phone] Tamia Brooks MD Unavailable [phone] [facility],non-owned Affiliates and Associated Physician Practices is amultiple site organization consisting of ambulatory clinics and hospital sitesin [place], [place], [place] and [place]. This disclosure is being madepursuant to the Care Everywhere program and may not contain all information available regarding this patient. Last updated 17.[facility] Allergies Active Allergy Reactions Criticality Noted Date Comments Darvon Nausea and/or Vomiting,Dizziness Medications * Be aware that medications may not be up to date on this document. Alwaysverify current medications with the patient. Medication Sig Dispensed Refills Start Date End Date Status Cetirizine HCl (ZYRTEC PO) Take by mouth nightly as needed Active Cholecalciferol (VITAMIN D-3) 1000 UNITS Take by mouth once daily Active calcium 600 MG tablet Take 2 (two) tablets by mouth daily with food Active glucosamine-chondro itin (GLUCOSAMINE CHONDR COMPLEX) 500-400 MG capsuleIndications: Prediabetes,Primary osteoarthritis of right hip Take 1 capsule by mouth once daily 30 capsule 5 8 Active blood glucose test stripIndications:Ty pe 2 diabetes mellitus with stage 3a chronic kidney disease, without long-term current use of insulin (HCC) Use 1 (one) strip as directed 100 strip 3 Active rosuvastatin (Crestor) 10 MG tabletIndications:M ixed hyperlipidemia TAKE 1 TABLET DAILY 90 tablet 3 4 Active metoclopramide (Reglan) 10 MG tabletIndications:G astroesophageal reflux disease, unspecified whether esophagitis present Take 1 (one) tablet by mouth 3 times daily before meals 90 tablet 4 4 Active lisinopril (Prinivil; Zestril) 40 MG tabletIndications:B enign essential hypertension,Stage 3b chronic kidney disease (HCC) TAKE 1 TABLET DAILY 90 tablet 1 4 Active sucralfate (Carafate) 1 GM tabletIndications:G astroesophageal reflux disease, unspecified whether esophagitis present Take 1 (one) tablet by mouth 4 times daily as needed 45 tablet 2 4 Active methylPREDNISolone (Medrol Dosepak) 4 MG tablet Take by mouth as directed Take as directed by mouth per package instructions. 21 tablet 4 Active lansoprazole (Prevacid) 15 MG capsuleIndications: Gastroesophageal reflux disease, unspecified whether esophagitis present TAKE 1 TO 2 CAPSULES ONCE DAILY TO IMPROVE HEARTBURN SYMPTOMS FOR GASTROESOPHAGEAL REFLUX DISEASE 180 capsule 3 4 Active Active Problems Problem Noted Date Diagnosed Date PLMD (periodic limb movement disorder) 4 Diet-controlled diabetes mellitus 08/30/2020 Type 2 diabetes mellitus wit h stage 3 chronic kidney disease, without long-term current use of insulin 10/23/2018 Chronic diastolic congestive heart failure 05/27 Overview (05/27/2017): Echo 05/2017: ef 60%, grade 1 diastolic dysfunction, and elevated filling pressures Class 1 obesity due to exces s calories with serious comorbidity and body mass index (BMI) of 31.0 to 31.9 in adult 05/13/2017 DAILY on CPAP 11/22/2016 Osteopenia 09/27/2016 CKD (chronic kidney disease) stage 3, GFR 30-59 ml/min 06/23/2014 Overview (03/15/2020): Component Latest Ref Rng & Units 02/11/2020 10/19/2018 eGFR by MDRD >59 mL/min/1.73 40 (L) 47 (L) GFR 09-26-17, 3- Situational mixed anxiety and depressive disorde r 01/17/2014 Primary osteoarthritis of both knees 10/27/2012 Prediabetes 10/27/2012 Anhydrotic dermatitis of foot 04/27/12 04/27/2012 Allergic rhinitis 09/20/2008 Hypertension, benign essential 09/20/2008 Hyperlipidemia 09/20/2008 Resolved Problems Problem Noted Date Diagnosed Date Resolved Date BMI 35.0-35.9,adult 05/13/2017 06/18/19 24 Chronic insomnia 07/19/2014 02/20/2022 Physical exam, annual 04/27/20122017 Routine general medical exam ination at a health care facility 02/28/11 02/28/2011 07/08/2014 Routine general medical exam ination at a health care facility 10/30/2009 07/08/2014 Encounters Date Type Department Care Team Description 03/05/2024 Patient Outreach [facility] - Care Coordination [address] [place] [address] Lelo Pichardo Outreach Preventive Care 02/04/2024 Refill [facility] Internal Medicine [address] [place] [phone] Tamia Brooks MD Refill Request 01/19/2024 Telephone [facility] Internal Medicine [address] [place] [address] [place] [phone] Tamia Brooks MD Pain Knee 12/22/2023 Refill [facility] Internal Medicine [address] [place] [phone] Tamia Brooks MD Refill Request from Last 3 Months Immunizations Name Administration Dates Next Due INFLUENZA VACCINE, TRIV. (AF LURIA, FLUZONE TRIVALENT; 6MO+) (IIV3) 12/05/2021,01/13/2013,01/10/2012,2008 COVID MODERNA 12+ yr 50mcg/0.5mL 12/18/2023 COVID PFIZER 12+YR 30MCG/0.3mL 12/05/2022 COVID PFIZER BIVALENT 12Y+ 30mcg/0.3ML 02/20/2022 Covid Moderna primary monova lent 12+ yr 0.5mL 10/01/2021,05/29/2020,05/01/2020 FLU VACCINE TRI IIV3 SPLIT P F IM (FLUVIRIN) 12/03/2017 FLU, HISTORIC VACCINE 01/18/2021,12/30/2019 INFLUENZA VACCINE 12/05/2022,,12/31/2018,2015,01/06/2015,11/22/2013,01/13/2013,1 03/15/2012,01/10/2012,01/06/2011, 010,11/17/2008 INFLUENZA VACCINE, CELL CULT URE, QUADR. (FLUCELVAX QUADRIVALENT; 6MO+) (CCIIV4) 12/31/2021 INFLUENZA VACCINE, CELL CULT URE, TRIV. (FLUCELVAX TRIVALENT; 6MO+), 0.5 ML (CCIIV3) 12/03/2017 INFLUENZA VACCINE, HIGH-DOSE , QUADR. (FLUZONE HIGH-DOSE QUADRIVALENT; 65Y+), 0.7 ML (HD-IIV4) 12/30/2019,12/31/2018,12/29/2015,2014 INFLUENZA VACCINE, HIGH-DOSE , TRIV. (FLUZONE HIGH-DOSE TRIVALENT; 65Y+) (HD-IIV3) 12/18/2023,12/29/2015,01/06/2015 MODERNA SARS-COV-2 COVID-19 VACCINE 0.25ML 01/18/2021 PNEUMOCOCCAL PPSV23 09/16/2016,01/08/2010 Pneumococcal Pcv13 Conj 07/10/2015 RSV ABRYSVO PREG OR 60y+ 0.5mL 12/05/2022 RSV AREXVY 60YR+ 0.5ML 12/05/2022 Family History Medical History Relation Name Comments Cancer - Colon Brother 2008 Lung Cancer Father smoker Cancer - Breast Maternal Aunt Heart Failure Mother Relation Name Status Comments Brother Father (Age 74) cancer filipe g and heart attack Maternal Aunt Mother (Age 39) heart dise ase Social History Tobacco Use Types Packs/Day Years [...] T Respiratory Rate 16 04/23/2018 1:13 PM MANAGER TELECOM Oxygen Saturation 95% 11/18/2023 1:19 PM CDT Inhaled Oxygen Concentration - - Weight 89.2 kg (196 lb 9.6 oz) 11/18/2023 1:19 P M CDT Height 165.1 cm (5' 5 ) 11/18/2023 1:19 PM CDT Body Mass Index 32.72 11/18/2023 1:19 PM CDT Plan of Treatment Upcoming Encounters Date Type Department Care Team (Late st Contact Info) Description 06/29/2024 10:00 AM CDT Office Visit [facility] - Internal Medicine [address] [facility] [address] [place] [phone] Tamia Brooks MD [address] [place] [address] [place] [phone] Health Maintenance Due Date Last Done Comments COLOGUARD (AGES 45-75) - COLON CA SCREENING 1948 CT COLONOGRAPHY - COLON CA SCREENING 1948 FIT - COLON CA SCREENING 1950 FLEX SIG - COLON CA SCREENING 1948 DTAP/TDAP/TD VACCINES (1 - Tdap) 1967 ZOSTER VACCINE (1 of 2) 1998 BONE DENSITY TESTING 03/17/2021 03/17/2019, 09/27/2016, 08/17/2014 DIABETES-FOOT EXAM WITH MONOFILAMENT 02/16/2022 02/16/2021, 01/11/2020, 01/06/2019 DEPRESSION SCREENING 03/10/2024 06/18/2023, 09/11/2022, 08/20/2022, Additional history exists DIABETES - URINE PROTEIN SCREENING 03/10/2024 09/23/2023, 02/11/2020 DIABETES-HGB A1C 05/17/2024 11/18/2023, 12/2023, 09/11/2022, Additional history exists MEDICARE AWV ? 12 MONTHS 06/17/2024 06/18/2023, 02/20/2022, 02/16/2021, Additional history exists DIABETES-SERUM CREATININE 09/22/20242023, 01/12/2021, 02/11/2020, Additional history exists MAMMOGRAM 06/22/2025 06/23/2023, 040 05/2022, 02/11/2017, Additional history exists DIABETES RETINOPATHY SCREENING 10/14/2025 10/15/2023, 06/18/2022, 12/07/2018 COLON MONITORING 09/17/2033 09/18/2023, , 11/05/2013 COLONOSCOPY - COLON CA SCREENING 09/17/2033 09/18/2023, 11/05/2013, 11/05/2013, Additional history exists Colorectal Cancer Screening 09/17/2033 PNEUMOCOCCAL VACCINE 50+ Completed 017, 07/10/2015, 01/08/2010 HEPATITIS C SCREENING Completed 09/26/2016 Respiratory Syncytial Virus (RSV) Vaccine Pt: or over 60 yrs Completed 12/05/2022, 12/05/2022 COVID-19 VACCINE Completed 12/18/2023, , 02/20/2022, Additional history exists INFLUENZA VACCINE Completed 12/18/2023, , 12/31/2021, Additional history exists HEPATITIS B VACCINE Aged Out No longe r eligible based on patient's age to complete this topic HIB VACCINE Aged Out No longer eligi ble based on patient's age to complete this topic HPV VACCINE Aged Out No longer eligi ble based on patient's age to complete this topic MENINGOCOCCAL (Group B) VACCINE Aged Out No longer eligible based on patient's age to complete this topic MENINGOCOCCAL VACCINE Aged Out No delta haley eligible based on patient's age to complete this topic Goals Goal Patient Goal Type Associated Problems Recent Progress Patient-Stated? Author Blood Pressure < 140/90 Blood Pressure 130/70( 024 1:19 PM CDT) No Lola Neff MA Procedures Procedure Name Priority Date/Time Associated Diagnosis Comments HEMOGLOBIN A1C - POINT OF CARE (AMB) Routine 11/18/2023 1:25 PM CDT Type 2 diabetes mellitus with stage 3a chronic kidney disease, without long-term current use of insulin (HCC) EYE EXAM 10/15/2023 MICROALB/CREAT RATIO URINE RANDOM PANEL Routine 09/23/2023 2:28 PM CDT Hypertension, benign essential Stage 3b chronic kidney disease (HCC) COMPREHENSIVE METABOLIC PANEL Routine 09/23/2023 2:28 PM CDT Type 2 diabetes mellitus with stage 3a chronic kidney disease, without long-term current use of insulin (HCC) COLONOSCOPY 09/18/2023 MAMMO BILAT SCREENING W TEJ Routine 06/23/2023 Screening mammogram, encounter for DEXA BONE DENSITY AXIAL SKELETON Routine 03/17/2019 10:46 AM MANAGER TELECOM Asymptomatic menopausal state Osteopenia, unspecified location HEPATITIS C ANTIBODY Routine 09/26/2016 8:02 AM CDT Need for hepatitis C screening test from Last 3 Months or Most Recently Relevant to Health Maintenance Results * HEMOGLOBIN A1C - POINT OF CARE (HgbA1C) (11/18/2023 1:25 PM CDT) Hemoglobin A1c POCT 6.4 % [facility] Expiration Date 07.10.[address] [facility] Lot # [id number] [facility] QC Verified Yes Yes [facility] Blood BLOOD SPECIMEN / Unknown 11/18/2023 1:25 PM CDT Tamia Brooks MD LAB - POINT OF CARE ORDERABLES [facility] [address] [phone] * EYE EXAM (10/15/2023) Anatomical Region Laterality Modality Other 10/15/2023 Narrative 10/15/2023 Ordered by an unspecified provider. Scanned Document SCANNING ONLY * MICROALB/CREAT RATIO URINE RANDOM PANEL (09/23/2023 2:28 PM CDT) Creatinine Urine 138.17 mg/dL [facility] INSURANCE BILL Microalbumin Urine 3.5 mg/dL [facility] INSURANCE BILL Microalbumin/Crea tinine Ratio 25 <30 mg/g [facility] INSURANCE BILL Urine URINE SPECIMEN OBTAINED BY CLEAN CATCH PROCEDURE / Unknown 09/23/2023 2:28 PM CDT 09/23/2023 Narrative Resulting Agency Comment Lab Testing performed at: [facility] [address] [place] [address] ??[facility] [phone] Tamia Brooks MD LAB - URINE CHEMISTR Y ORDERABLES [facility] INSURANCE BILL [address] [place] [address] * (ABNORMAL) COMPREHENSIVE METABOLIC PANEL (09/23/2023 2:28 [...] Resulting Agency Comment Lab Testing performed at: [address] ??[facility] [phone] Tamia Brooks MD LAB - CHEMISTRY [facility] Organization Address City/State/ZIP Co de Phone Number [facility] INSURANCE BILL [address] [place] [address] * COLONOSCOPY (09/18/2023) 09/18/2023 Narrative 09/18/2023 Ordered by an unspecified provider. Scanned Document SCANNING ONLY * MAMMO BILAT SCREENING W TEJ (06/23/2023) Anatomical Region Laterality Modality Breast Bilateral Mammography 06/23/2023 Tamia Brooks MD MAMMO ORDERABLES * DEXA BONE DENSITY AXIAL SKELETON (03/17/2019 10:46 AM MANAGER TELECOM) Anatomical Region Laterality Modality Nuclear Medicine 03/17/2019 10:5 0 AM MANAGER TELECOM Impressions 03/17/2019 10:53 AM MANAGER TELECOM Osteopenia of the hips. Normal bone mineral density of the lumbar spine. WORLD HEALTH ORGANIZATION DEFINITIONS NORMAL= T-Score at or above -1.0 SD OSTEOPENIA = T-Score between -1 and -2.5 SD OSTEOPOROSIS = T-Score at or below -2.5 SD Reading Radiologist: Kiki Mireles MD on 03/17/2019 at 10:53 AM Narrative 03/17/2019 10:53 AM MANAGER TELECOM BONE MINERAL DENSITY STUDY: INDICATION: ??68-year-old for [...] 10.2% Hip fracture: 1.6% Procedure Note Kiki Mireles DO - 03/17/2019 BONE MINERAL DENSITY STUDY: INDICATION: [...] AM Tamia Brooks MD DEXA ORDERABLES * HEPATITIS C ANTIBODY (09/26/2016 8:02 AM CDT) Hepatitis C Antibody <0.1 0.0 - 0.9 s/co ratio [facility] INSURANCE BILL Comment: ? Negative: ? < 0.8 ?Indeterminate: 0.8 - 0.9 ? Positive: ? > 0.9 ? . ?The CDC recommends that a positive HCV antibody result ?be followed up with a HCV Nucleic Acid Amplification ?test (699774). FASTING Blood BLOOD SPECIMEN / Unknown 09/26/2016 8:02 AM CDT 09/26/2016 Narrative Resulting Agency Comment [facility] [address] ??[facility] [phone] Tamia Brooks MD LAB - CHEMISTRY PREETI COSTA [facility] INSURANCE BILL [address] [place] [address] from Last 3 Months or Most Recently Relevant to Health Maintenance Care Teams Career Manager Relationship Specialty Start Date End Date Tamia Brooks MD [address] [place] [phone] PCP - General Internal Medicine 07/26/16 Tamia Brooks MD [facility] [phone] PCP - Attributed-MSSP 05/08/22 Yohan Barros DPM [facility] [phone] Podiatry 05/24/13
--- OUTSIDE RECORDS SUMMARY | 2024-03-22 20:10 | XMS_ITS | Encounter Summary ---
Author Organization [facility] Address [address] [facility] [place] [address] Care Team Providers Care Technical Training Specialist Name Role Phone Yohan Barros DPM Unavailable [phone] Tamia Brooks MD Primary Care Provider Tamia Brooks MD Unavailable [phone] Reason for Referral * Evaluate & Treat (Routine) - Closed Specialty Diagnoses / Procedures Referred By Contac t Referred To Contact Gastroenterology Diagnoses Gastroesophageal reflux disease, unspecified whether esophagitis present Tamia Brooks MD [address] [place] [address] [place] [address] Referral ID Status Reason Start Date Expiration Date V isits Requested Visits Authorized [id number] Closed Specialty Services Required 05/09/2023 05/08/2024 1 1 TRIC BATH ATTENDANT Reason for Visit * Reason Onset Date Comments ESOPHAGEAL REFLUX 05/09/2023 Encounter Details Date Type Department Care Team (Late st Contact Info) Description 05/09/2023 Telephone [facility] Medical [facility] - Internal Medicine [address] [place] [address] [address] [place] [address] Tamia Brooks MD [address] [place] [address] [address] [place] [address] ESOPHAGEAL REFLUX Social History Tobacco Use Types Packs/Day Years [...] Telephone Encounter - Natasha Vazquez LPN - 05/09/2023 3:10 PM ELECTRIC BATH ATTENDANT Left message for patient to call office If pt calls back then please see Dr. Brooks's note below TRIC BATH ATTENDANT * Telephone Encounter - Tamia Brooks MD - 05/09/2023 2:20 PM CST While it's chronic, uncontrollable GERD sxs can be angina. Since she's out of town, I'd recommend UC/ER evaluation now. For Gerd sxs can try increase reglan to 10 mg TID if needed. Add carafate. If pt declines uc/er try to schedule for appt next week. Tamia Brooks MD 05/09/2023 2:26 PM Orders Placed This Encounter ??? [facility] Rikki Calix Aymerich Standing Status: Future Standing Expiration Date: 05/08/2024 Referral Priority: Routine Referral Type: Evaluate & Treat Referral Reason: Specialty Services Required Number of Visits Requested: 1 ??? metoclopramide (Reglan) 10 MG tablet Sig: Take 1 (one) tablet by mouth 3 times daily before meals Dispense: 90 tablet Refill: 4 ??? sucralfate (Carafate) 1 GM tablet Sig: Take 1 (one) tablet by mouth 4 times daily as needed Dispense: 45 tablet Refill: 2 TRIC BATH ATTENDANT * Telephone Encounter - Natasha Vazquez LPN - 05/09/2023 11:25 AM ELECTRIC BATH ATTENDANT Pt reports being out of town and is having increased acid reflux sxs - currently taking Prevacid and Reglan as ordered with minimal relief. Some chest discomfort - not acute, ongoing for a few months Reviewed triggers to avoid which may increase her sxs Recommended if needing immediate attention to go to for evaluation Pended referral to [facility] GI team - last referred to Dr. Calix in 2020 TRIC BATH ATTENDANT documented in this encounter Plan of Treatment Upcoming Encounters Date Type Department Care Team (Late st Contact Info) Description 06/29/2024 10:00 AM CDT Office Visit [facility] Medical [facility] - Internal Medicine [address] [place] [address] [place] [phone] Tamia Brooks MD [address] [place] [phone] Scheduled Referrals Name Type Priority Associated Diagnoses Orde r Schedule [facility] @ [facility] - Rikki Calix Aymerich Outpatient Referral Routine Gastroesophageal reflux disease, unspecified whether esophagitis present 1 Occurrences starting 05/09/2023 until 05/08/2024 documented as of this encounter Goals Goal Patient Goal Type Associated Problems Recent Progress Patient-Stated? Author Blood Pressure < 140/90 Blood Pressure 130/70( 024 1:19 PM CDT) No Lola Neff MA documented as of this encounter Visit Diagnoses Diagnosis Gastroesophageal reflux disease, unspecified whether esophagitis present- Primary documented in this encounter Care Teams Technical Training Specialist Relationship Specialty Start Date End Date Tamia Brooks MD [address] [place] [phone] PCP - General Internal Medicine 07/26/16 Tamia Brooks MD [address] [place] [address] PCP - Attributed-MSSP 05/08/22 Yohan Barros, ZOYA [address] [place] [phone] Podiatry 05/24/13 documented as of this encounter
--- OUTSIDE RECORDS SUMMARY | 2024-03-22 20:10 | XMS_ITS | Encounter Summary ---
Author Organization [facility] Address [address] [facility] [place] [address] Care Team Providers Care Medical Office Assistant Name Role Phone Yohan Barros DPM Unavailable [phone] Tamia Brooks MD Primary Care Provider [phone] Tamia Brooks MD Unavailable [phone] Reason for Visit * Reason Comments Refill Request Encounter Details Date Type Department Care Team (Late Contact Info) Description 02/04/2024 Refill [facility] Medical [facility] - Internal Medicine [address] [address] Tamia Brooks MD [address] [place] [phone] Refill Request Social History Tobacco Use [...] [facility] - Internal Medicine [address] [facility] [address] [place] [address] Tamia Brooks MD [address] [facility] [address] [place] [address] documented as of this encounter Goals Goal Patient Goal Type Associated Problems Recent Progress Patient-Stated? Author Blood Pressure < 140/90 Blood Pressure 130/70( 024 1:19 PM CDT) Lola Serna MA documented as of this encounter Visit Diagnoses Diagnosis Gastroesophageal reflux disease, unspecified whether esophagitis present documented in this encounter Care Teams Medical Office Assistant Relationship Specialty Start Date End Date Tamia Brooks MD [address] [facility] [address] [place] [address] PCP - General Internal Medicine 07/26/16 Tamia Brooks MD [address] [place] [address] [address] [place] [phone] PCP - Attributed-MSSP 05/08/22 Yohan Barros, DPM [facility] [place] [address] [place] [phone] Podiatry 05/24/13 documented as of this encounter
--- OUTSIDE RECORDS SUMMARY | 2024-03-22 20:10 | XMS_ITS | Encounter Summary ---
Author Organization [facility] Address [address] [facility] [place] [address] Care Team Providers Care Vocal Music Instructor Name Role Phone Yohan Barros DPM Unavailable [phone] Tamia Brooks MD Primary Care Provider Tamia Brooks MD Unavailable [phone] Reason for Referral * Durable Medical Equipment - Pending Review Specialty Diagnoses / Procedures Referred By Valeria ramesh Referred To Contact Diagnoses DAILY on CPAP Benign essential hypertension Class 1 obesity due to excess calories with serious comorbidity and body mass index (BMI) of 31.0 to 31.9 in adult Chronic diastolic congestive heart failure (HCC) PLMD (periodic limb movement disorder) Malaise and fatigue Truong Cadet MD [address] [address] [facility] - [address] [address] Referral ID Status Reason Start Date Expiration Date Visits Requested Visits Authorized [id number] Pending Review Specialty Services Required 09/23/2023 09/22/2024 1 1 Reason for Visit * Reason Comments Establish Care * Evaluate & Treat (Routine) - Closed Specialty Diagnoses / Procedures Referred By Valeria ramesh Referred To Contact Pulmonary Disease Diagnoses DAILY (obstructive sleep apnea) Tamia Brooks MD [address] [place] [address] Truong Cadet MD [address] [facility] [address] [place] [address] Referral ID Status Reason Start Date Expiration Date V isits Requested Visits Authorized [id number] Closed Specialty Services Required 03/13/2023 03/12/2024 1 1 Encounter Details Date Type Department Care Team (Late st Contact Info) Description 09/23/2023 1:30 PM CDT Office Visit [facility] Medical [facility] - Pulmonology [address] [facility] [address] [place], [place] [id number] Truong Cadet MD [address] [facility] [address] [place] [address] DAILY on CPAP (Primary Dx); Hypertension, benign essential; Class 1 obesity due to excess calories with serious comorbidity and body mass index (BMI) of 31.0 to 31.9 in adult; Chronic diastolic congestive heart failure (HCC); PLMD (periodic limb movement disorder); Low ferritin level; Malaise and fatigue; DAILY (obstructive sleep apnea) Social History Tobacco Use Types Packs/Day Years [...] Sign Reading Time Taken Comments Blood Pressure 136/85 09/23/2023 1:28 PM CDT Pulse 85 09/23/2023 1:28 PM CDT Temperature - - Respiratory Rate - - Oxygen Saturation 98% 09/23/2023 1:28 PM CDT Inhaled Oxygen Concentration - - Weight 86.2 kg (190 lb) 09/23/2023 1:28 PM CDT Height 165.1 cm (5' 5 ) 09/23/2023 1:28 PM CDT Body Mass Index 31.62 09/23/2023 1:28 PM CDT documented in this encounter Progress Notes * Truong Cadet MD - 09/23/2023 1:57 PM CDT Images from the original note were not included. Name: Maura Watkins Age: [age] year old Race: White/ Sex: female Reason for Consultation: sleep problems Chief Complaint Chief Complaint Patient presents with Establish Care History of present illness 73 year-old women with HTN, prediabetic and obesity here to establish care and follow up of known DAILY on PAP treatment. Sleep study and compliance data reviewed with patient and summarized. The patient had a polysomnogram on 12/26/2010. 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 The lowest oxygen desaturation was 88%. Supine AHI was 4.7,RDI was 23.9, lateral AHI was 0 and RDI of 1.7 The patient had a polysomnogram on 01/05/2017. It showed mild obstructive sleep apnea with an overall AHI of 5.1 using 1B rule. The lowest oxygen desaturation was 86%. PLMD index was 33.6 and arousalindex of 6.2. On 02/14/2017 the patient was titrated to optimal pressure of 9 cm H20. At this pressure, the residual AHI was 4.5 using 1B rules. Unknown if there was REM supine sleep. PLMD index was 43 .8 and arousal index 9.5. Weight at the time of the last titration was 185 lbs. Current PAP setting is 9 cm H2O. She use treatment nightly. She benefited from treatment waking up rested and having more energy in the daytime. Her machine require replacement reporting motor half life exceeded expectation. She is committed to PAP treatment. No new health issues and weight remained unchanged. No clear RLS/PLMD symptoms. Nasal Congestion: none Bedtime: 10 Sleep Latency: 15-30 minutes Wake-Up Time: 7 Sleep Period Awakenings : 0-1 per night ; Duration of Awakenings: few minutes Daytime Alertness: alert Planned naps: : rarely Sedentary naps: rarely Ponderay Sleepiness Scale: 08/31 Restless Legs: none Limb movements: none Stimulants: Coffee: 2 cups per day Stimulant medications: none Sedatives: Alcohol: none Hypnotics: none Sedating medications: none BiPAP / CPAP Pressure: 9 cm H2O Interface: pillow mask Interface Fit: mildly uncomfortable, small leak DATA CARD ([facility]) Duration: 90 nights (06/25/23-09/22/23) Percentage of Nights Device utilized 99%: Percentage of Nights Device utilized >= 4 hours: 92% Average hours of use per night: 8 hours and 42 minutes AHI: 3.7 Leak: 95 th percentile: 29.2 LPM Ponderay sleepiness score: Sitting and Reading Slight chance of dozing Watching Television Slight chance of dozing Sitting Inactive In A Public Place Slight chance of dozing Car Passenger For An Hour Would never doze Lying Down To Rest Lying down to rest in the afternoon when circumstances permit: High chance of dozing Sitting and Talking To Someone Would never doze Sitting Quietly After Lunch Without Alcohol Would never doze In A Car, While Stopped For A Few Minutes In Traffic Would never doze ESS Total Score 6 Past Medical History: Diagnosis Date Anhydrotic dermatitis of foot 04/27/12 04/27/2012 Adductor tendonitis, right thigh 04/27/12 04/27/2012 Allergic rhinitis 09/20/2008 Cataract 12/07/2013 Herpes zoster 04/12/2010 Hyperlipidemia 09/20/2008 Hypertension 09/20/2008 Insulin resistance 10/27/2012 Primary osteoarthritis of both knees 10/27/2012 UTI Past Surgical History: Procedure Laterality Date Cataract Removal Bilateral 2013 COLONOSCOPY N/A 11/05/2013 N/A; COLONOSCOPY SCREEN ENDOSCOPY, COLON, SCREENING 06/23/06 ENDOSCOPY, UPPER N/A 10/04/2016 N/A; ESOPHAGOGASTRODUODENOSCOPY (EGD) ENDOSCOPY, UPPER 10/04/2016 gastritis, hiatus hernia-Yogi Hysterectomy Allergies Allergen Reactions Darvon Nausea and/or Vomiting and Dizziness Current Outpatient Medications on File Prior to Visit Medication Sig Dispense Refill blood glucose test [...] TO IMPROVE HEARTBURN SYMPTOMSFOR GASTROESOPHAGEAL REFLUX DISEASE 60 capsule 0 lisinopril (Prinivil; Zestril) 40 MG tablet Take [...] facility-administered medications on file prior to visit. Social History Socioeconomic History Marital status: Spouse name: Not on file Number of children: 0 Years of education: 13+ Highest education level: Not on file Occupational History Not on file Tobacco Use Smoking status: Former Packs/day: 0.20 Years: 12.00 Additional pack years: 0.00 Total pack years: 2.40 Types: Cigarettes Quit date: 03/10/1990 Years since quittin.5 Smokeless tobacco: Never Vaping Use Vaping Use: Never used Substance and Sexual Activity Alcohol use: Yes Comment: occ Drug use: No Sexual activity: Yes Partners: Male Other Topics Concern Service No Blood Transfusions No Caffeine Concern No Occupational Exposure No Hobby Hazards No Sleep Concern Yes Stress Concern Yes Weight Concern Yes Special Diet Yes Back Care Yes Exercise Yes Bike Helmet Yes Seat Belt Yes Self-Exams Yes Social History Narrative Not on file Social Determinants of Health Financial Resource Strain: Not on file Food Insecurity: Not on file Transportation Needs: Not on file Stress: Not on file Housing Stability: Not on file Family History The patient denies any family history of sleep disorders. REVIEW OF SYSTEMS: (items in bold are present, items not bold are absent) GENERAL:fever, sweats, chills, weight change ENT:nasal congestion, nasal drainage, epistaxis CARDIOVASCULAR:chest pain, palpitations, peripheral edema RESPIRATORY:dyspnea, cough, wheeze, hemoptysis, orthopnea, PND GI:appetite, nausea, vomiting, melena, hematochezia, heartburn :dysuria, hematuria, nocturia MUSCULOSKELETAL:joint pain, muscle pain NEUROLOGIC: focal weakness, generalized weakness, tremor ENDOCRINE: diabetes, thyroid disease, fatigue HEMATOLOGIC: blood clot, unusual bleeding, anemia DERMATOLOGIC: rash, skin cancer PSYCHIATRIC: depression, anxiety SLEEP: snore, witnessed apneas, hypersomnia, insomnia PHYSICAL EXAM Neck Circumference 18 inch's. Vital Signs: BP 136/85 Pulse 85 Ht 1.651 m (5' 5 ) Wt 86.2 kg (190 lb) SpO2 98% Body mass index is 31.62 kg/m??. GENERAL: alert, cooperative, no distress HEENT: The nares are benign. The patient has no micrognathia and retrognathia. The oropharynx reveals fair dentition and is otherwise benign. The hard and soft palates are normal. Uvula is long and pendulous. There is increased redundant tissue in the posterior pharynx. Tonsils are 2+ enlarged. Mallampati grade 3+/4 EYES: anicteric sclerae, moist conjunctiva. NECK: Supple, no thyromegaly or lymphadenopathy RESPIRATORY SYSTEM: No evidence of respiratory distress or labored breathing.Good air entry bilaterally and clear to auscultation. CARDIOVASCULAR: Regular rate and rhythm, No murmurs or gallops. No JVD ABDOMEN: Soft, Non tender. SKIN: No rash or edema. LYMPHATIC: No lymphadenopathy. PSYCH: Appropriate effect, alert and oriented to person, place and time Data Patient records from referring physician were reviewed and summarized in HPI. IMPRESSION: Mild Obstructive Sleep Apnea on PAP at 9 cm H2O. Compliance appreciated and advised to continue thesame. Replacement with APAP 7-11 cm H2O recommended. Minimal nocturnal hypoxemia well controlled on current PAP setting. Continue the same. Obesity: weight loss recommended Hypersomnia and fatigue improved since start of PAP treatment. PLMD with no clinical symptoms. Check ferritin level RECOMMENDATIONS: New APAP at a pressure of 7-11 cm H2O to replace old malfunctioning unit. Pillow mask fitting and provide mask of choice and supplies per DME. For now continue PAP at a pressure of 9 cm H2O. Compliance appreciated and advised to use treatment whenever sleep with aim of 7-8 hours usage. Check ferritin level and if <50 ng/ml replace with iron. Weight loss using diet and exercise discussed. I discussed the importance of avoiding driving or participating in other hazardous activities when drowsy. The patient agreed to comply. Follow up in 4 months. Truong Cadet MD * Alex Stephens MA - 09/23/2023 1:31 PM CDT Maura Watkins 1950 presents as DRILL [employer]ESS OPERATOR [employer] referral from Tamia Brooks MD for treatment of DAILY Neck circum: 18 PSG: yes Adult Ponderay Sleepiness scale completed in flowsheet in Epic documented in this encounter Plan of Treatment Upcoming Encounters Date Type Department Care Team (Late st Contact Info) Description 06/29/2024 10:00 AM CDT Office Visit [facility] - Internal Medicine [address] [place] [address] Tamia Brooks MD [address] [place] [address] Scheduled Referrals Name Type Priority Associated Diagnoses Orde r Schedule AMB REFERRAL FOR DME Outpatient Referral Routine DAILY on CPAP Hypertension, benign essential Class 1 obesity due to excess calories with serious comorbidity and body mass index (BMI) of 31.0 to 31.9 in adult Chronic diastolic congestive heart failure (HCC) PLMD (periodic limb movement disorder) Malaise and fatigue 1 Occurrences starting 09/23/2023 until 09/23/2024 documented as of this encounter Goals Goal Patient Goal Type Associated Problems Recent Progress Patient-Stated? Author Blood Pressure < 140/90 Blood Pressure 130/70( 024 1:19 PM CDT) No Lola Neff MA documented as of this encounter Procedures Procedure Name Priority Date/Time Associated Diagnosis Comments FERRITIN Routine 09/23/2023 2:28 PM CDT PLMD (periodic limb movement disorder) Low ferritin level Malaise and fatigue documented in this encounter Results * FERRITIN (09/23/2023 2:28 PM CDT) Ferritin 80 5 - 204 ng/mL [facility] INSURANCE BILL Blood BLOOD SPECIMEN / Unknown 09/23/2023 2:28 PM CDT 09/23/2023 Narrative Resulting Agency Comment Lab Testing performed at: [address] ??[facility] [id number] Truong Cadet MD LAB - CHEMISTRY PREETI COSTA [facility] INSURANCE BILL [address] [place] [address] documented in this encounter Visit Diagnoses Diagnosis DAILY on CPAP- Primary Obstructive sleep apnea (adult) (pediatric) Hypertension, benign essential Essential hypertension, benign Class 1 obesity due to excess calories with serious comorbidity and body mass index (BMI) of 31.0 to 31.9 in adult Chronic diastolic congestive heart failure (HCC) Chronic diastolic heart failure PLMD (periodic limb movement disorder) Periodic limb movement disorder Low ferritin level Other nonspecific findings on examination of blood Malaise and fatigue DAILY (obstructive sleep apnea) Obstructive sleep apnea (adult) (pediatric) documented in this encounter Care Teams Vocal Music Instructor Relationship Specialty Start Date End Date Tamia Brooks MD [address] [place] [address] PCP - General Internal Medicine 07/26/16 Tamia Brooks MD [address] [place] [address] PCP - Attributed-MSSP 05/08/22 Yohan Barros DPM [address] [phone] Podiatry 05/24/13 documented as of this encounter
--- OUTSIDE RECORDS SUMMARY | 2024-03-22 20:10 | XMS_ITS | Encounter Summary ---
Author Organization [facility] Address [address] [facility] [place] [address] Care Team Providers Care Pharmaceutical Compounding Supervisor Name Role Phone Yohan Barros DPM Unavailable [phone] Tamia Brooks MD Primary Care Provider Reason for Visit * Reason Onset Date Comments Medication Request 02/27/2022 Encounter Details Date Type Department Care Team (Late st Contact Info) Description 02/27/2022 Telephone [facility] Medical [facility] - Internal Medicine [address] [facility] [address] [place] [phone] Tamia Brooks MD [address] [place] [address] [place] [phone] Medication Request Social History Tobacco Use Types Packs/Day [...] Telephone Encounter - Natasha Vazquez LPN - 02/27/2022 1:11 PM ENTRY LEVEL ACCOUNTANT Orders Placed This Encounter ??? azithromycin (Zithromax) 250 MG tablet Sig: Take 2 tabs today, then 1 tab daily for next 4 days Dispense: 6 tablet Refill: 0 Pt advised - she will provide update next week and will place referral to ENT at that time if needed Y LEVEL ACCOUNTANT * Telephone Encounter - Tamia Brooks MD - 02/27/2022 12:52 PM CST Can try abx. But if no improvement, should go see ENT. Let me know if she needs a referral. Orders Placed This Encounter ??? azithromycin (Zithromax) 250 MG tablet Sig: Take 2 tabs today, then 1 tab daily for next 4 days Dispense: 6 tablet Refill: 0 Tamia Brooks MD 02/27/2022 12:53 PM Y LEVEL ACCOUNTANT * Telephone Encounter - Natasha Vazquez LPN - 02/27/2022 12:03 PM ENTRY LEVEL ACCOUNTANT Seen in office on 02/20 - given Prednisone for ear congestion, PND and sore throat x 2 weeks. She has had 3 doses of Prednisone - doesn't feel like sxs are improving but also doesn't feel like thingsare worsening - feels like things have remained the same since her visit Pt would like a longer course of the steroids and abx if indicated Y LEVEL ACCOUNTANT documented in this encounter Plan of Treatment Upcoming Encounters Date Type Department Care Team (Late st Contact Info) Description 06/29/2024 10:00 AM CDT Office Visit [facility] Medical [facility] - Internal Medicine [address] [facility] [address] [place] [phone] Tamia Brooks MD [address] [place] [address] [place] [phone] documented as of this encounter Goals Goal Patient Goal Type Associated Problems Recent Progress Patient-Stated? Author Blood Pressure < 140/90 Blood Pressure 130/70( 024 1:19 PM CDT) No Lola Neff MA documented as of this encounter Visit Diagnoses Not on filedocumented in this encounter Care Teams Pharmaceutical Compounding Supervisor Relationship Specialty Start Date End Date Tamia Brooks MD [address] [facility] [address] [place] [address] PCP - General Internal Medicine 07/26/16 Yohan Barros DPM [address] [facility] [address] [place] [phone] Podiatry 05/24/13 documented as of this encounter
--- OUTSIDE RECORDS SUMMARY | 2024-03-22 20:10 | XMS_ITS | Encounter Summary ---
Author Organization [facility] Address [address] [place] [address] Care Team Providers Care Drier And Grinder Tender Name Role Phone Yohan Barros DPM Unavailable [phone] Tamia Brooks MD Primary Care Provider [phone] Encounter Details Date Type Department Care Team (Latest Contact Info) Description 03/08/2022 Travel Social History Tobacco Use Types Packs/Day Years [...] Coronavirus/COVID-19? No / Unsure 03/08/2022 11:15 AM TRAINER documented as of this encounter Plan of Treatment Upcoming Encounters Date Type Department Care Team (Late st Contact Info) Description 06/29/2024 10:00 AM CDT Office Visit [facility] - Internal Medicine [address] [facility] [address] [place] [phone] Tamia Brooks MD [address] [place] [phone] documented as of this encounter Goals Goal Patient Goal Type Associated Problems Recent Progress Patient-Stated? Author Blood Pressure < 140/90 Blood Pressure 130/70( 024 1:19 PM CDT) Lola Serna MA documented as of this encounter Visit Diagnoses Not on filedocumented in this encounter Care Teams Drier And Grinder Tender Relationship Specialty Start Date End Date Tamia Brooks MD [address] [place] [phone] PCP - General Internal Medicine 07/26/16 Yohan Barros DPM [address] [place] [phone] Podiatry 05/24/13 documented as of this encounter
--- OUTSIDE RECORDS SUMMARY | 2024-03-22 20:10 | XMS_ITS | Encounter Summary ---
Author Organization [facility] Address [address] [place]: Epic Prelude ADT [place] [address] Care Team Providers Care Shredding Machine Knife Changer Name Role Phone Jhonathan Fisher MD Primary Care Provider Opal ramírez Encounter Details Date Type Department Care Team (Late st Contact Info) Description 12/10/1995 Outpatient Historical Conversion, History Social History Tobacco Use Types Packs/Day Years Used Date Smoking Tobacco: Never Assessed Sex and Gender Information Value Date Recorded Sex Assigned at Not on file Gender Identity Not on file Sexual Orientation Not on file documented as of this encounter Plan of Treatment Not on file documented as of this encounter Visit Diagnoses Not on filedocumented in this encounter Care Teams Shredding Machine Knife Changer Relationship Specialty Start Date End Date Jhonathan Fisher MD PCP - General 02/24/15 documented as of this encounter
--- OUTSIDE RECORDS SUMMARY | 2024-03-22 20:10 | XMS_ITS | Encounter Summary ---
Author Organization [facility] Address [address] [place] [address] Care Team Providers Care News Specialist Name Role Phone Yohan Barros DPM Unavailable [phone] Tamia Brooks MD Primary Care Provider [phone] Tamia Brooks MD Unavailable [phone] Reason for Visit * Reason Onset Date Comments Transitions Of Care 12/16/2022 Encounter Details Date Type Department Care Team (Late st Contact Info) Description 12/16/2022 Patient Outreach [facility] - Care Coordination [facility] [address] [address] Antoinette Carlton Transitions Of Care Social History Tobacco Use Types Packs/Day [...] * Telephone Encounter - Antoinette Maier - 12/16/2022 11:56 AM CDT Project [employer]ibr[employer] Gap Outreach Patient contact attempt regarding open care gaps. Outreach Attempt #: 3rd of 3 Outreach Method: Cell phone Outreach Status: left message HM items to be addressed: AWV (Medicare/Medicare Advantage) and Urine Microalbumin HM STATUS: due now or within the next 30 days: Health Maintenance Due Topic Date Due ??? DTAP/TDAP/TD VACCINES (1 - Tdap) Never done ??? ZOSTER VACCINE (1 of 2) Never done ??? HEPATITIS B VACCINE (1 of 3 - Risk 3-dose series) Never done ??? DIABETES-NEPHROPATHY 02/10/2021 ??? BONE DENSITY TESTING 03/17/2021 ??? DIABETES-SERUM CREATININE 01/12/2022 ??? DIABETES-FOOT EXAM WITH MONOFILAMENT 02/16/2022 ??? COVID-19 VACCINE (5 - Moderna series) 06/21/2022 ??? INFLUENZA VACCINE (1) 11/08/2022 Antoinette Maier 12/16/2022 11:56 AM documented in this encounter Plan of Treatment Upcoming Encounters Date Type Department Care Team (Late st Contact Info) Description 06/29/2024 10:00 AM CDT Office Visit [facility] - Internal Medicine [address] [place] [address] [place] [phone] Tamia Brooks MD [address] [place] [phone] documented as of this encounter Goals Goal Patient Goal Type Associated Problems Recent Progress Patient-Stated? Author Blood Pressure < 140/90 Blood Pressure 130/70( 024 1:19 PM CDT) No Lola Neff MA documented as of this encounter Visit Diagnoses Not on filedocumented in this encounter Care Teams News Specialist Relationship Specialty Start Date End Date Tamia Brooks MD [address] [place] [phone] PCP - General Internal Medicine 07/26/16 Tamia Brooks MD [address] [place] [address] [place] [address] PCP - Attributed-MSSP 05/08/22 Yohan Barros DPM [address] [place] [address] Podiatry 05/24/13 documented as of this encounter
--- OUTSIDE RECORDS SUMMARY | 2024-03-22 20:10 | XMS_ITS | Encounter Summary ---
Author Organization [facility] Address [address] [facility] [place] [address] Care Team Providers Care Second Watch Sergeant Name Role Phone Yohan Barros DPM Unavailable [phone] Tamia Brooks MD Primary Care Provider [phone] Tamia Brooks MD Unavailable [phone] Reason for Visit * Reason Comments Diabetes Hypertension Encounter Details Date Type Department Care Team (Late st Contact Info) Description 09/11/2022 10:00 AM CDT Office Visit [facility] Medical [facility] - Internal Medicine [address] [address] Tamia Brooks MD [address] [place] [phone] Mixed hyperlipidemia (Primary Dx); Gastroesophageal reflux disease, unspecified whether esophagitis present; Stage 3b chronic kidney disease (HCC); Hypertension, benign essential; Prediabetes; Chronic diastolic congestive heart failure (HCC); DAILY (obstructive sleep apnea); Osteopenia, unspecified location; Asymptomatic postmenopausal state; Right ear pain; Type 2 diabetes mellitus with stage 3 chronic kidney disease, without long-term current use of insulin, unspecified whether stage 3a or 3b CKD (HCC) Social History Tobacco Use Types Packs/Day Years [...] Sign Reading Time Taken Comments Blood Pressure 110/68 09/11/2022 9:59 AM CDT Pulse 72 09/11/2022 9:59 AM CDT Temperature - - Respiratory Rate - - Oxygen Saturation 96% 09/11/2022 9:59 AM CDT Inhaled Oxygen Concentration - - Weight 91.3 kg (201 lb 3.2 oz) 09/11/2022 9:59 A M CDT Height 165.1 cm (5' 5 ) 09/11/2022 9:59 AM CDT Body Mass Index 33.48 09/11/2022 9:59 AM CDT documented in this encounter Patient Instructions * Patient Instructions* Tamia Brooks MD - 09/11/2022 10:30 AM CDT Please arrive 15 minutes early to your next appointment. Following your visit, you may receive a survey via email or U.S. Mail about your experience with us. We encourage you to respond to this confidential survey about our care. We at [facility] are committed toalways providing you with the most exceptional care. Your feedback helps us provide quality serviceat every visit. Get labs before vacation. documented in this encounter Progress Notes * Tamia Brooks MD - 09/11/2022 10:10 AM CDT Tamia Brooks MD [facility] - Department of Internal Medicine [facility] [facility] [facility], [address] [place] [address] History of Present Illness Maura Watkins is a 72 year old female who presents to the office Chief Complaint Patient presents with ??? Diabetes ??? Hypertension Here for follow up on chronic medical problems. She is having ear pain still. Tried zpak and aumgentin. They tried debrox and irrigation GERD - Denies any current issues - she is on PPI daily ?? HTN/CKD3 - reports Dr. Baltazar raised her BP medication. - BP at home:??not checking?? - medication compliance is good - dietary compliance is good - denies CP, SOB, LE edema BP Readings from Last 3 Encounters: 09/11/22 110/68 08/20/22 138/76 02/20/22 128/72 HLD - on statin - denies myalgias?? The 10-year ASCVD risk score (Darinel CASTRO, et al., 2019) is: 19.8% Values used to calculate the score: Age: 72 years Sex: Female Is Non- : No Diabetic: Yes Tobacco smoker: No Systolic Blood Pressure: 110 mmHg Is BP treated: No HDL Cholesterol: 39 mg/dL Total Cholesterol: 166 mg/dL DDD lumbar?? - doing ok. Not needing meds? DAILY - on CPAP nightly?DM2??- diet controlled?? - not checking BG - a1c today 6.6%?? - BG at home:??not checking - hypoglycemia/symptoms:??none - tests??1-2?per day - DM eye exam scheduled. ?? Diet:?Smaller portions, more veggies, and voss diet?? Exercise:??not currently?? Sleep:??is good.? Wt Readings from Last 3 Encounters: 09/11/22 91.3 kg (201 lb 3.2 oz) 08/20/22 90.7 kg (200 lb) 02/20/22 90.1 kg (198 lb 9.6 oz) Weight change: lbs since the last [...] results for input(s): MICROALBUGML in the last 44604 hours. Recent Labs Component Name 02/11/20 0800 MICROALBCREA 13 No results for input(s): INR in the last 65575 hours. Past Medical, Surgical, Social, and Family Histories Patient Active Problem List Diagnosis Date Noted ??? Diet-controlled diabetes mellitus ([facility]) 08/30/2020 Priority: Not Prioritized ??? Type 2 diabetes mellitus with stage 3 chronic kidney disease, without long- term current use of insulin ([facility]) 10/23/2018 Priority: Not Prioritized ??? Chronic diastolic congestive heart failure ([facility]) 05/27/2017 Priority: Not Prioritized Echo 05/2017: ef [...] kidney disease) stage 3, GFR 30-59 ml/min ([facility]) 06/23/2014 Component Latest Ref Rng & Units 02/11/2020 10/19/2018 eGFR by MDRD >59 mL/min/1.73 40 (L) 47 (L) GFR -18, 3--18 ??? Situational mixed anxiety and depressive [...] Outpatient Medications Medication Sig Dispense Refill ??? blood glucose [...] Gastroesophageal Reflux Disease 60 capsule 1 ??? rosuvastatin (Crestor) 10 MG tablet TAKE 1 TABLET ONCE DAILY 90 tablet 1 No current facility-administered medications for this visit. [...] As noted in HPI Physical Examination Vitals: 09/11/22 0959 BP: 110/68 Pulse: 72 SpO2: 96% Weight: 91.3 kg (201 lb 3.2 oz) Height: 1.651 m (5' 5 ) CrCl cannot be calculated (Patient's most recent lab result is older than the maximum 15 days allowed.). . BMI Readings from Last 3 Encounters: 09/11/22 33.48 kg/m?? 08/20/22 33.28 kg/m?? 02/20/22 33.05 kg/m?? General appearance: alert and NAD SKIN: [...] intact MS: motor normal all 4 extrem. Assessment and Plan ICD-10-CM 1. Mixed hyperlipidemia E78.2 COMPREHENSIVE METABOLIC PANEL LIPID PROFILE REFLEX LDL DIRECT rosuvastatin (Crestor) 10 MG tablet 2. Gastroesophageal reflux disease, unspecified whether esophagitis present K21.9 lansoprazole (Prevacid) 15 MG capsule 3. Stage 3b chronic kidney disease ([facility]) N18.32 CBC WITH DIFFERENTIAL MICROALB/CREAT RATIO URINE RANDOM PANEL VITAMIN D 25-HYDROXY MAGNESIUM BLOOD PHOSPHORUS BLOOD PTH INTACT IRON + TIBC + FERRITIN URIC ACID BLOOD PROTEIN CREATININE RATIO URINE RANDOM PNL 4. Hypertension, benign essential I10 5. Prediabetes R73.03 HEMOGLOBIN A1C - POINT OF CARE (HgbA1C) 6. Chronic diastolic congestive heart failure ([facility]) I50.32 7. DAILY (obstructive sleep apnea) G47.33 8. Osteopenia, unspecified location M85.80 9. Asymptomatic postmenopausal state Z78.0 10. Right ear pain H92.01 [facility] Referral to Otolaryngology AMB REFERRAL TO ENT 11. Type 2 diabetes mellitus with stage 3 chronic kidney disease, without long- term current use of insulin, unspecified whether stage 3a or 3b CKD ([facility]) E11.22 N18.30 Continue same meds. Referred to ENT for otalgia. DM2- controlled with diet. The above was discussed with the patient [...] MONOFILAMENT 02/16/2022 ??? DIABETES-HGB A1C 08/21/2022 ??? INFLUENZA VACCINE (1) 11/08/2022 ??? MEDICARE AWV - 12 MONTHS 02/20/2023 ??? DIABETES-EYE EXAM 06/19/2023 ??? Colorectal Cancer Screening 11/06/2023 ??? MAMMOGRAM 06/10/2024 ??? PNEUMOCOCCAL VACCINE 65+ Completed ??? HEPATITIS C SCREENING Completed ??? COVID-19 VACCINE Completed ??? HEPATITIS B VACCINE Aged Out ??? HIB VACCINE Aged Out ??? MENINGOCOCCAL VACCINE Aged Out Return to office: Return for 6-8 mths AWV (20 min) . or sooner if needed. documented in this encounter Plan of Treatment Upcoming Encounters Date Type Department Care Team (Late st Contact Info) Description 06/29/2024 10:00 AM CDT Office Visit [facility] - Internal Medicine [address] [facility] [address] [place] [address] Tamia Brooks MD [address] [place] [phone] Scheduled Orders Name Type Priority Associated Diagnoses Orde r Schedule CBC WITH DIFFERENTIAL Lab Routine Stage 3b chronic kidney disease (HCC) Ordered: 09/11/2022 COMPREHENSIVE METABOLIC PANEL Lab Routine Mixed hyperlipidemia Ordered: 09/11/2022 LIPID PROFILE REFLEX LDL DIRECT Lab Routine Mixed hyperlipidemia Ordered: 09/11/2022 MICROALB/CREAT RATIO URINE RANDOM PANEL Lab Routine Stage 3b chronic kidney disease (HCC) Ordered: 09/11/2022 VITAMIN D 25-HYDROXY Lab Routine Stage 3b chronic kidney disease (HCC) Ordered: 09/11/2022 MAGNESIUM BLOOD Lab Routine Stage 3b chronic kidney disease (HCC) Ordered: 09/11/2022 PHOSPHORUS BLOOD Lab Routine Stage 3b chronic kidney disease (HCC) Ordered: 09/11/2022 PTH INTACT Lab Routine Stage 3b chronic kidney disease (HCC) Ordered: 09/11/2022 IRON + TIBC + FERRITIN Lab Routine Stage 3b chronic kidney disease (HCC) Ordered: 09/11/2022 URIC ACID BLOOD Lab Routine Stage 3b chronic kidney disease (HCC) Ordered: 09/11/2022 PROTEIN CREATININE RATIO URINE RANDOM PNL Lab Routine Stage 3b chronic kidney disease (HCC) Ordered: 09/11/2022 documented as of this encounter Goals Goal Patient Goal Type Associated Problems Recent Progress Patient-Stated? Author Blood Pressure < 140/90 Blood Pressure 130/70( 024 1:19 PM CDT) No Lola Neff MA documented as of this encounter Procedures Procedure Name Priority Date/Time Associated Diagnosis Comments HEMOGLOBIN A1C - POINT OF CARE (AMB) Routine 09/11/2022 11:05 AM CDT Prediabetes documented in this encounter Results * HEMOGLOBIN A1C - POINT OF CARE (HgbA1C) (09/11/2022 11:05 AM CDT) Hemoglobin A1c POCT 6.6 % [facility] Expiration Date 05/19/[address] [facility] Lot # [id number] [facility] QC Verified Yes Yes [facility] Blood BLOOD SPECIMEN / Unknown 09/11/2022 11:05 AM CDT Tamia Brooks MD LAB - POINT OF CARE ORDERABLES [facility] [address] [phone] documented in this encounter Visit Diagnoses Diagnosis Mixed hyperlipidemia- Primary Gastroesophageal reflux disease, unspecified whether esophagitis present Stage 3b chronic kidney disease (HCC) Hypertension, benign essential Essential hypertension, benign Prediabetes Other abnormal glucose Chronic diastolic congestive heart failure (HCC) Chronic diastolic heart failure DAILY (obstructive sleep apnea) Obstructive sleep apnea (adult) (pediatric) Osteopenia, unspecified location Asymptomatic postmenopausal state Right ear pain Otalgia, unspecified Type 2 diabetes mellitus with stage 3 chronic kidney disease, without long-term current use of insulin, unspecified whether stage 3a or 3b CKD (HCC) documented in this encounter Care Teams Second Watch Sergeant Relationship Specialty Start Date End Date Tamia Brooks MD [address] [place] [address] PCP - General Internal Medicine 07/26/16 Tamia Brooks MD [address] [place] [address] PCP - Attributed-MSSP 05/08/22 Yohan Barros, DPM [address] [place] [phone] Podiatry 05/24/13 documented as of this encounter
--- OUTSIDE RECORDS SUMMARY | 2024-03-22 20:10 | XMS_ITS | Encounter Summary ---
Author Organization [facility] Address [address] [facility] [place] [address] Care Team Providers Care Tool Coordinator Name Role Phone Yohan Barros DPM Unavailable [phone] Tamia Brooks MD Primary Care Provider [phone] Tamia Brooks MD Unavailable [phone] Reason for Visit * Reason Onset Date Comments Medical Equipment 07/15/2023 Encounter Details Date Type Department Care Team (Late st Contact Info) Description 07/15/2023 Telephone [facility] - Internal Medicine [address] [facility] [address] [place], [place] [phone] [place] [address] [place] [address] [address] [place] [address] Medical Equipment Social History Tobacco Use Types [...] encounter Miscellaneous Notes * Telephone Encounter - Alecia Jose 07/15/2023 10:15 AM CDT Noted. LVM for pt to contact office for Dr. Brooks's instructions. * Telephone Encounter - Tamia Brooks MD - 07/15/2023 10:00 AM CDT I don't manage CPAP machines. She [facility] [place] [facility] Needs to get set up with them. Ok to see ACCOUNT RETENTION REPRESENTATIVE Elin if needed. ??[facility] [address] [facility], [address] [facility] [phone] * Telephone Encounter - Alecia Jose - 07/15/2023 9:34 AM CDT Pt called stating that it is time to replace her CPAP machine. The company will need a new RX, along with the last office visit notes faxed to [facility] fax #[phone] documented in this encounter Plan of Treatment Upcoming Encounters Date Type Department Care Team (Late st Contact Info) Description 06/29/2024 10:00 AM CDT Office Visit [facility] - Internal Medicine [facility] [facility] [address] [place] [phone] Tamia Brooks MD [address] [place] [address] [address] [place] [phone] documented as of this encounter Goals Goal Patient Goal Type Associated Problems Recent Progress Patient-Stated? Author Blood Pressure < 140/90 Blood Pressure 130/70( 024 1:19 PM CDT) No Lola Neff MA documented as of this encounter Visit Diagnoses Not on filedocumented in this encounter Care Teams Tool Coordinator Relationship Specialty Start Date End Date Tamia Brooks MD [facility] [place] [address] PCP - General Internal Medicine 07/26/16 Tamia Brooks MD [address] [facility] [address] [place] [address] PCP - Attributed-MSSP 05/08/22 Yohan Barros, DPM [address] [facility] [address] [place] [phone] Podiatry 05/24/13 documented as of this encounter
--- OUTSIDE RECORDS SUMMARY | 2024-03-22 20:10 | XMS_ITS | Encounter Summary ---
Author Organization [facility] Address [address] [facility] [place] [address] Care Team Providers Care Director Safety Council Name Role Phone Yoahn Barros DPM Unavailable [phone] Tamia Brooks MD Primary Care Provider Deric Dudley Unavailable Tamia Brooks MD Unavailable [phone] Reason for Visit * Reason Onset Date Comments Outreach Preventive Care 06/26/2023 Encounter Details Date Type Department Care Team (Late st Contact Info) Description 06/26/2023 Patient Outreach [facility] - Care Coordination [address] [place] [address] Deric Dudley Outreach Preventive Care Social History Tobacco Use [...] encounter Miscellaneous Notes * Telephone Encounter - Deric Dudley - 06/26/2023 3:20 PM CDT HEALTH MAINTENANCE Health Maintenance items reviewed. Patient has Health Maintenance items that are overdue or due soon. Patient outreach is indicated. Health Maintenance Due Topic Date Due ??? DTAP/TDAP/TD VACCINES (1 - Tdap) Never done ??? ZOSTER VACCINE (1 of 2) Never done ??? DIABETES-NEPHROPATHY 02/10/2021 ??? BONE DENSITY TESTING 03/17/2021 ??? DIABETES-SERUM CREATININE 01/12/2022 ??? DIABETES-FOOT EXAM WITH MONOFILAMENT 02/16/2022 ??? DIABETES RETINOPATHY SCREENING 06/19/2023 HM items to be addressed: Colon Screening and Diabetic Eye Exam PATIENT OUTREACH I called and spoke to the patient. PCP Confirmation: Patient is actively engaged with an [facility] PCP. MyChart Enrollment: Already active. Patient engagement and response(s) for due / overdue Health Maintenance items: - Colorectal Cancer Screening: - Exam already scheduled at [facility] in October - Diabetes Eye Exam: - patient will call to schedule Diabetic Eye Exam. Reminded patient to have the results sent to PCP. Deric Dudley 06/26/2023 3:20 PM documented in this encounter Plan of Treatment Upcoming Encounters Date Type Department Care Team (Late st Contact Info) Description 06/29/2024 10:00 AM CDT Office Visit [facility] - Internal Medicine [address] [place] [phone] Tamia Brooks MD [address] [place] [phone] documented as of this encounter Goals Goal Patient Goal Type Associated Problems Recent Progress Patient-Stated? Author Blood Pressure < 140/90 Blood Pressure 130/70( 024 1:19 PM CDT) No Lola Neff MA documented as of this encounter Visit Diagnoses Not on filedocumented in this encounter Care Teams Director Safety Council Relationship Specialty Start Date End Date Tamia Brooks MD [address] [place] [phone] PCP - General Internal Medicine 07/26/16 Tamia Brooks MD [address] [facility] [address] [place] [phone] PCP - Attributed-MSSP 05/08/22 Yohan Barros DPM [address] [facility] [address] [place] [phone] Podiatry 05/24/13 Deric Dudley Care Coordination Specialist Care Management 06/26/23 06/26/23 documented as of this encounter
--- OUTSIDE RECORDS SUMMARY | 2024-03-22 20:10 | XMS_ITS | Encounter Summary ---
Author Organization [facility] Address [address] [place] [address] Care Team Providers Care Heel Seat Flap Stapler Name Role Phone Yohan Barros DPM Unavailable Tamia Brooks MD Primary Care Provider [phone] Tamia Brooks MD Unavailable [phone] Reason for Visit * Reason Onset Date Comments Update 08/26/2022 Encounter Details Date Type Department Care Team (Late st Contact Info) Description 08/26/2022 Telephone [facility] Medical [facility] - Internal Medicine [address] [facility] [address] [place], [place] [id number] Tamia Brooks MD [address] [place] [address] [address] [place] [address] Update Social History Tobacco Use Types Packs/Day Years [...] as of this encounter Miscellaneous Notes * Addendum Note - Shanel Vazquez LPN - 08/27/2022 1:41 PM CDTAddended by: SHANEL VAZQUEZ on: 08/27/2022 01:41 PM Modules accepted: Orders * Telephone Encounter - Shanel Vazquez LPN - 08/27/2022 1:38 PM CDT Pt advised of orders and recommendations Orders Placed This Encounter ??? [facility] Referral to Otolaryngology Standing Status: Future Standing Expiration Date: 08/27/2023 Referral Priority: Routine Referral Type: Evaluate Referral Reason: Specialty Services Required Number of Visits Requested: 1 ??? azithromycin (Zithromax) 250 mg tablet Si tablets day 1, then 1 tablet daily for 4 days Dispense: 6 tablet Refill: 0 Refill of Prevacid sent to [facility] * Telephone Encounter - aTmia Brooks MD - 08/27/2022 1:05 PM CDT Orders Placed This Encounter ??? [facility] Referral to Otolaryngology Standing Status: Future Standing Expiration Date: 08/27/2023 Referral Priority: Routine Referral Type: Evaluate Referral Reason: Specialty Services Required Number of Visits Requested: 1 ??? azithromycin (Zithromax) 250 mg tablet Si tablets day 1, then 1 tablet daily for 4 days Dispense: 6 tablet Refill: 0 Can try zpak instead. Otherwise, recommend ENT eval. Tamia Brooks MD 08/27/2022 1:05 PM * Telephone Encounter - Myriam Plaza RN - 08/26/2022 8:37 AM CDT Seen 08/20/22 tx for URI and bilateral ear infection Main complaint, chest pain, and feels like something is caught in her throat ; pain with swallowing. C/o chest pain between breast and down front of neck, feels like the eraser part of pencil is jabbing her Cough, did bring up some mucus, dark brown , once, in middle of night , looked like may have been part of her dinner. Does get sob with activity Belching Still has some discomfort to sinus facial area and both ears documented in this encounter Plan of Treatment Upcoming Encounters Date Type Department Care Team (Late st Contact Info) Description 06/29/2024 10:00 AM CDT Office Visit [facility] - Internal Medicine [address] [place] [address] [place] [phone] Tamia Brooks MD [address] [place] [phone] documented as of this encounter Goals Goal Patient Goal Type Associated Problems Recent Progress Patient-Stated? Author Blood Pressure < 140/90 Blood Pressure 130/70( 024 1:19 PM CDT) Lola Serna MA documented as of this encounter Visit Diagnoses Diagnosis Sore throat- Primary Acute pharyngitis Acute otitis media, unspecified otitis media type Sinus problem Unspecified sinusitis (chronic) Gastroesophageal reflux disease, unspecified whether esophagitis present documented in this encounter Care Teams Heel Seat Flap Stapler Relationship Specialty Start Date End Date Tamia Brooks MD [address] [place] [phone] PCP - General Internal Medicine 07/26/16 Tamia Brooks MD [address] [place] [phone] PCP - Attributed-MSSP 05/08/22 Yohan Barros DPM [address] [place] [id number] Podiatry 05/24/13 documented as of this encounter
--- OUTSIDE RECORDS SUMMARY | 2024-03-22 20:10 | XMS_ITS | Encounter Summary ---
Author Organization [facility] Address [address] [facility] [place] [address] Care Team Providers Care Floor Director Name Role Phone Yohan Barros DPM Unavailable [phone] Tamia Brooks MD Primary Care Provider [phone] Tamia Brooks MD Unavailable [phone] Reason for Visit * Reason Comments Refill Request Encounter Details Date Type Department Care Team (Late st Contact Info) Description 03/13/2023 Refill [facility] Medical [facility] - Internal Medicine [address] [facility] [address] [place] [address] Tamia Brooks MD [address] [place] [phone] Refill Request Social History Tobacco Use [...] Telephone Encounter - Nancy Gracia MA - 03/14/2023 3:21 PM CST Pt want a refill on a prescription was discontinue on [employer] documented in this encounter Plan of Treatment Upcoming Encounters Date Type Department Care Team (Late st Contact Info) Description 06/29/2024 10:00 AM CDT Office Visit [facility] - Internal Medicine [address] [facility] [address] [place] [address] [place] [address] [place] [phone] documented as of this encounter Goals Goal Patient Goal Type Associated Problems Recent Progress Patient-Stated? Author Blood Pressure < 140/90 Blood Pressure 130/70( 024 1:19 PM CDT) No Lola Neff MA documented as of this encounter Visit Diagnoses Not on filedocumented in this encounter Care Teams Floor Director Relationship Specialty Start Date End Date Tamia Brooks MD [address] [place] [phone] PCP - General Internal Medicine 07/26/16 Tamia Brooks MD [address] [place] [phone] PCP - Attributed-MSSP 05/08/22 Yohan Barros, DPCristofer [address] [facility] [place] [address] [place] [phone] Podiatry 05/24/13 documented as of this encounter
--- OUTSIDE RECORDS SUMMARY | 2024-03-22 20:10 | XMS_ITS | Referral Summary ---
Author Organization [facility] Address [address] [place] [address] Care Team Providers Care Condenser Tube Tender Name Role Phone Yohan Barros DPM Unavailable [phone] Tamia Brooks MD Primary Care Provider [phone] Tamia Brooks MD Unavailable [phone] Source Comments [facility],non-owned Affiliates and Associated Physician Practices is amultiple site organization consisting of ambulatory clinics and hospital sitesin [place], [place], [place] and [place]. This disclosure is being madepursuant to the Care Everywhere program and may not contain all information available regarding this patient. Last updated 17.[facility] Encounters Date Type Department Care Team Description 03/05/2024 Patient Outreach [facility] - Care Coordination [facility] [phone] Lelo Pichardo Outreach Preventive Care 02/04/2024 Refill [facility] Internal Medicine [address] [place] [address] [address] [place] [address] Tamia Brooks MD Refill Request 01/19/2024 Telephone [facility] Internal Medicine [address] [place] [address] [address] [place] [address] Tamia Brooks MD Pain Knee 12/22/2023 Refill [facility] Internal Medicine [address] [place] [phone] Tamia Brooks MD Refill Request from Last 3 Months Allergies Active Allergy Reactions Criticality Noted Date [...] disease, without long-term current use of insulin ([facility]) Use 1 (one) strip as directed 100 [...] mL/min/1.73 40 (L) 47 (L) GFR 09-26-17, 05-22-17 Situational mixed anxiety and depressive disorde r [...] a health care facility 10/30/2009 07/08/2014 Immunizations Name Administration Dates Next Due INFLUENZA [...] 0.5mL 12/05/2022 RSV AREXVY 60YR+ 0.5ML 12/05/2022 Social History Tobacco Use Types Packs/Day Years [...] T Respiratory Rate 16 04/23/2018 1:13 PM BEE WORKER Oxygen Saturation 95% 11/18/2023 1:19 PM CDT Inhaled Oxygen Concentration - - Weight 89.2 kg (196 lb 9.6 oz) 11/18/2023 1:19 P M CDT Height 165.1 cm (5' 5 ) 11/18/2023 1:19 PM CDT Body Mass Index 32.72 11/18/2023 1:19 PM CDT Plan of Treatment Upcoming Encounters Date Type Department Care Team (Late st Contact Info) Description 06/29/2024 10:00 AM CDT Office Visit [facility] Medical [facility] - Internal Medicine [address] [address] [place] [address] [place] [phone] Goals Goal Patient Goal Type Associated Problems [...] DENSITY AXIAL SKELETON Routine 03/17/2019 10:46 AM BEE WORKER Asymptomatic menopausal state Osteopenia, unspecified location HEPATITIS [...] [facility] Lot # [id number] [facility] QC Verified Yes Yes [facility] Blood BLOOD SPECIMEN / Unknown 11/18/2023 1:25 PM CDT Tamia Brooks MD LAB - POINT OF CARE ORDERABLES [facility] [address] [place] [address], [facility] [phone] * EYE EXAM (10/15/2023) Anatomical Region Laterality [...] Resulting Agency Comment Lab Testing performed at: [address] ??[facility] [phone] Tamia Brooks MD LAB - URINE CHEMISTR Y ORDERABLES [facility] INSURANCE BILL [address] [place] [address] * (ABNORMAL) COMPREHENSIVE METABOLIC PANEL (09/23/2023 2:28 [...] Resulting Agency Comment Lab Testing performed at: [facility] [address] [facility] ??[facility] [phone] Tamia Brooks MD LAB - CHEMISTRY PREETI [facility] Organization Address City/State/ZIP Co de Phone Number [facility] INSURANCE BILL [address] [place] [address] * COLONOSCOPY (09/18/2023) 09/18/2023 Narrative 09/18/2023 Ordered by an unspecified provider. Scanned Document SCANNING ONLY * MAMMO BILAT SCREENING W TEJ (06/23/2023) Anatomical Region Laterality Modality Breast Bilateral Mammography 06/23/2023 Tamia Brooks MD MAMMO ORDERABLES * DEXA BONE DENSITY AXIAL SKELETON (03/17/2019 10:46 AM BEE WORKER) Anatomical Region Laterality Modality Nuclear Medicine 03/17/2019 10:5 0 AM BEE WORKER Impressions 03/17/2019 10:53 AM BEE WORKER Osteopenia of the hips. Normal bone mineral density of the lumbar spine. [employer] DEFINITIONS NORMAL= T-Score at or above -1.0 SD OSTEOPENIA = T-Score between -1 and -2.5 SD OSTEOPOROSIS = T-Score at or below -2.5 SD Reading Radiologist: Kiki Mireles MD on 03/17/2019 at 10:53 AM Narrative 03/17/2019 10:53 AM BEE WORKER BONE MINERAL DENSITY STUDY: INDICATION: ??68-year-old for [...] with a HCV Nucleic Acid Amplification ?test (107980). FASTING Blood BLOOD SPECIMEN / Unknown 09/26/2016 8:02 AM CDT 09/26/2016 Narrative Resulting Agency Comment [facility] [place] [address] ??[place] [phone] Tamia Brooks MD LAB - CHEMISTRY PREETI COSTA [facility] INSURANCE BILL [address] [place] [address] from Last 3 Months or Most Recently Relevant to Health Maintenance Care Teams Condenser Tube Tender Relationship Specialty Start Date End Date Tamia Brooks MD [address] [place] [address] PCP - General Internal Medicine 07/26/16 Tamia Brooks MD [address] [place] [address] PCP - Attributed-MSSP 05/08/22 Yohan Barros, DPM [address] [place] [address] [place] [phone] Podiatry 05/24/13
--- OUTSIDE RECORDS SUMMARY | 2024-03-22 20:11 | XMS_ITS | Encounter Summary ---
Author Organization [facility] Address [address] [place] [address] Care Team Providers Care Regulator Inspector Name Role Phone Yohan Barros DPM Unavailable [phone] Tamia Brooks MD Primary Care Provider [phone] Efrain Dunlap MD Unavailable Tamia Brooks MD Unavailable [phone] Reason for Visit * Reason Onset Date Comments Question 10/01/2019 Encounter Details Date Type Department Care Team (Late st Contact Info) Description 10/01/2019 Telephone [facility] Medical [facility] - Internal Medicine [facility] [facility] [address] [place] [address] Tamia Brooks MD [address] [place] [phone] Question Social History Tobacco Use Types Packs/Day Years Used Date Smoking Tobacco: Former Cigarettes 0.2 12 0 03/10/1978 - 03/10/1990 Smokeless Tobacco: Never Alcohol Use Standard Drinks/Week Comments Yes 0 (1 standard drink = 0.6 oz pur e alcohol) occ Sex and Gender Information Value Date Recorded Sex Assigned at Not on file Gender Identity Female 11/22/2016 11:14 AM CDT Sexual Orientation Not on file documented as of this encounter Miscellaneous Notes * Telephone Encounter - April Pandya RN - 10/01/2019 3:55 PM CDT Reached pt, she has already had swab done at * Telephone Encounter - April Pandya RN - 10/01/2019 3:47 PM CDT Lab ordered per contact with Dr. Brooks. Have tried to reach pt/ on cells to let them know itwas ordered. No answer, unable to leave message on either side. * Telephone Encounter - Shey Ramos - 10/01/2019 3:18 PM CDT Patient at with is being tested for COVID 19 and the Ms. Watkins is wanting to know can she be tested as well. Patient is at [facility]. Please advise documented in this encounter Plan of Treatment Upcoming Encounters Date Type Department Care Team (Late st Contact Info) Description 06/29/2024 10:00 AM CDT Office Visit [facility] Medical [facility] - Internal Medicine [address] [address] [place] [address] [place] [address] documented as of this encounter Goals Goal Patient Goal Type Associated Problems Recent Progress Patient-Stated? Author Blood Pressure < 140/90 Blood Pressure 130/70( 024 1:19 PM CDT) No Lola Neff MA documented as of this encounter Results * (ABNORMAL) [facility] COVID PCR (10/01/2019 4:58 PM CDT) COVID-19 PCR Detected( AA) Not detected, Invalid 10/02/2019 12:35 PM CDT [facility] MICRO[facility] Microbiology SPECIMEN FROM NASOPHARYNGEAL STRUCTURE / Unknown Collection / Unknown 10/01/2019 4:58 PM CDT 10/01/2019 4:58 PM CDT Narrative [facility] - 10/02/2019 12:35 PM CDT This nucleic acid amplification assay performance was validated by [facility]. This test has been authorized [...] acid amplification assay performance was validated by [facility]. This test has been authorized [...] Brooks MD LAB - MICROBIOLOGY O RDERABLES [facility] [address] [place], [place] [address] [phone] documented in this encounter Visit Diagnoses Diagnosis Exposure to COVID-19 virus- Primary documented in this encounter Care Teams Regulator Inspector Relationship Specialty Start Date End Date Tamia Brooks MD [address] [place] [address] PCP - General Internal Medicine 07/26/16 Tamia Brooks MD [address] [place] [address] PCP - Attributed-MSSP 04/10/19 12/08/19 Yohan Barros, DPM [address] [phone] Podiatry 05/24/13 Efrain Dunlap MD [address] [place] [address] Orthopedic Surgery 01/06/19 08/29/20 documented as of this encounter
--- OUTSIDE RECORDS SUMMARY | 2024-03-22 20:11 | XMS_ITS | Encounter Summary ---
Author Organization [facility] Address [address] [facility] [place] [address] Care Team Providers Care Manager Customer Name Role Phone Yohan Barros DPM Unavailable [phone] Tamia Brooks MD Primary Care Provider [phone] Reason for Visit * Reason Onset Date Comments Pain Back 09/21/2021 Imaging 09/21/2021 New Med Request 09/21/2021 Encounter Details Date Type Department Care Team (Late st Contact Info) Description 09/21/2021 Telephone [facility] Medical [facility] - Internal Medicine [address] [facility] [address] [place], [place] [phone] Tamia Brooks MD [address] [place] [address] [address] [place] [address] Pain Back; Imaging; New Med Request Social History Tobacco Use Types Packs/Day Years Used Date Smoking Tobacco: Former Cigarettes 0.2 12 0 03/10/1978 - 03/10/1990 Smokeless Tobacco: Never Alcohol Use Standard Drinks/Week Comments Yes 0 (1 standard drink = 0.6 oz pur e alcohol) occ PHQ-2 Answer Date Recorded PHQ2 TOTAL SCORE 0 03/29/2021 Sex and Gender Information Value Date Recorded Sex Assigned at Not on file Gender Identity Female 11/22/2016 11:14 AM CDT Sexual Orientation Not on file COVID-19 Exposure Response Date Recorded In the last 10 days, have yo u been in contact with someone who was confirmed or suspected to have Coronavirus/COVID-19? No / Unsure 09/21/2021 9:52 AM CDT documented as of this encounter Miscellaneous Notes * Telephone Encounter - Shaina Ledezma RN - 09/21/2021 2:59 PM CDT Informed patient of 's prescription and imaging orders. 1) XR CERVICAL SPINE 2 OR 3VW 2) methylPREDNISolone (MEDROL DOSEPAK) 4 MG tablet 3) tiZANidine (ZANAFLEX) 4 MG tablet for muscle spasms Patient verbalized understanding of all information reviewed at the time. * Telephone Encounter - Tamia Brooks MD - 09/21/2021 10:53 AM CDT Orders Placed This Encounter ??? XR CERVICAL SPINE 2 OR 3VW Standing Status: Future Standing Expiration Date: 09/21/2022 Order Specific Question: Release to patient Answer: Immediate ??? methylPREDNISolone (MEDROL DOSEPAK) 4 MG tablet Sig: Take by mouth as directed Take as directed by mouth per package instructions. Dispense: 21 tablet Refill: 0 ??? tiZANidine (ZANAFLEX) 4 MG tablet Sig: Take 1 (one) tablet by mouth every 8 hours as needed for Muscle Spasms Dispense: 30 tablet Refill: 0 * Telephone Encounter - Shaina Ledezma RN - 09/21/2021 9:28 AM CDT Patient called office regarding c/o of back pain: Constant right upper back pain . When I tuck my chin I heard a pop x 1 on 09/20/2021. Neck/Back/Spine Phone Assessment: Onset: x 3 weeks Injury/Trauma/Fall: Denies Location: Right Upper Back Radiate: under arm pit to my right breast Severity of Pain: 9 on pain scale of 0-10 Quality of Pain: Sharp,Stabbing Upper Extremity Numbness/Tingling: under my right bicep, I feel numbness/pain/.LUE is normal Upper Extremity Weakness: Right hand weak/feel it when I lift something with it. LUE is normal Upper Extremity Warmth/Color: Normal Upper Extremity Movement: Normal Lower Extremity Numbness/Tingling: Lower Extremity Weakness: Denies Lower Extremity Warmth/Color: Normal Lower Extremity Movement: Normal Loss of Bowel Function: Denies Loss of Bladder Function: Denies Fever: Denies What makes it Better: Nothing Worse: Nothing Medications Tried: OTC Ibuprofen, Tylenol, prescription Robaxin 750 mg without relief. Patient has been seen by Chiropractor: x-ray of left shoulder. Dr. Marcus Oconnor ([phone]/office number) Patient advised to have the Chiropractor fax the x-ray results and office progress notes to 's office at [phone]. Office appointment scheduled with Enoch Chung NP on 09/26/2021 at 12:45 pm Patient verbalized understanding of all information reviewed at the time. Please review and advise. documented in this encounter Plan of Treatment Upcoming Encounters Date Type Department Care Team (Late st Contact Info) Description 06/29/2024 10:00 AM CDT Office Visit [facility] - Internal Medicine [address] [address] Tamia Brooks MD [address] [place] [phone] documented as of this encounter Goals Goal Patient Goal Type Associated Problems Recent Progress Patient-Stated? Author Blood Pressure < 140/90 Blood Pressure 130/70( 024 1:19 PM CDT) No Lola Neff MA documented as of this encounter Results * XR CERVICAL SPINE 2 OR 3VW (09/21/2021) Anatomical Region Laterality Modality Spine Other 09/21/2021 Tamia Brooks MD DIAGNOSTIC IMAGING [facility] documented in this encounter Visit Diagnoses Diagnosis Cervical radiculitis- Primary Brachial neuritis or radiculitis nos documented in this encounter Care Teams Manager Customer Relationship Specialty Start Date End Date Tamia Brooks MD [address] [facility] [address] [place] [address] PCP - General Internal Medicine 07/26/16 Yohan Barros DPM [facility] [facility] [address] [phone] Podiatry 05/24/13 documented as of this encounter
--- OUTSIDE RECORDS SUMMARY | 2024-03-22 20:11 | XMS_ITS | Encounter Summary ---
Author Organization [facility] Address [address] [facility] [place] [address] Care Team Providers Care Mixologist Name Role Phone Yohan Barros DPM Unavailable [phone] Tamia Brooks MD Primary Care Provider [phone] Tamia Brooks MD Unavailable [phone] Reason for Visit * Reason Comments Complete Physical Exam amw Encounter Details Date Type Department Care Team (Late st Contact Info) Description 02/16/2021 4:00 PM ESTIMATOR PRINTING PLATE MAKING Office Visit [facility] - Internal Medicine [address] [address] Bee Garland, BAR ROLLER-JORDAN WORKER [address] [place] [phone] Medicare annual wellness visit, subsequent (Primary Dx); Diet-controlled diabetes mellitus (HCC); Need for shingles vaccine; Hypertension, benign essential; Stage 3b chronic kidney disease (HCC); Gastroesophageal reflux disease without esophagitis Social History Tobacco Use Types Packs/Day Years [...] Sign Reading Time Taken Comments Blood Pressure 142/90 02/16/2021 4:01 PM ESTIMATOR PRINTING PLATE MAKING Pulse 83 02/16/2021 4:01 PM ESTIMATOR PRINTING PLATE MAKING Temperature 36.7 ??C (98.1 ??F) 02/16/2021 4:01 PM CS T Respiratory Rate - - Oxygen Saturation 97% 02/16/2021 4:01 PM ESTIMATOR PRINTING PLATE MAKING Inhaled Oxygen Concentration - - Weight 90.3 kg (199 lb) 02/16/2021 4:01 PM ESTIMATOR PRINTING PLATE MAKING Height - - Body Mass Index 35.26 08/30/2020 1:27 PM CDT documented in this encounter Patient Instructions * Patient Instructions* Bee Garland APRN-CNP - 02/16/2021 4:19 PM ESTIMATOR PRINTING PLATE MAKING Make follow up appointment with Dr. Calix Please take your blood pressure daily and keep a log with the date, time, and blood pressure reading and bring it to your next office visit. When taking your blood pressure at home, make sure you aresitting with your legs uncrossed and keep your arm with the cuff, at the level of your heart. It ishelpful to rest the arm on a desk or table. Also, try to take the blood pressure when you are in a relaxed state and have been sitting for at least two minutes or more. Please notify this office for the following: SBP (top number) greater than 180 SBP (top number) less than 90 DBP (bottom number) greater than 100 DBP (bottom number) less than 50 Pulse greater than 110 Pulse less than 50 For a blood sugar reading higher than 350 For a blood sugar reading less than 60 Take care! Thank you, STEPHANIE Mann 02/16/2021 4:21 PM MATOR PRINTING PLATE MAKING documented in this encounter Progress Notes * eBe Garland APRN-CNP - 02/16/2021 4:00 PM CST MEDICARE ANNUAL WELLNESS VISIT (Annual INITIAL wellness visit (G0438)) (Annual SUBSEQUENT wellness visit (G0439)) REVIEW OF BENEFICIARY'S MEDICAL AND SOCIAL HISTORY I have documented, updated and reviewed the below components of the patient's history: Past Medical History: Diagnosis Date ??? Anhydrotic [...] file Tobacco Use ??? Smoking status: Former Smoker Packs/day: 0.20 Years: 12.00 Pack years: 2.40 Types: Cigarettes Quit date: 03/10/1990 Years since quittin.9 ??? Smokeless tobacco: Never Used Substance and Sexual Activity ??? Alcohol use: [...] on file Transportation Needs: Not on file Physical Activity: Not on file Stress: Not on file Social Connections: Not on file Intimate Partner Violence: Not on file Housing Stability: Not on file Family History Problem Relation Name Age of Onset ??? Heart Failure Mother ??? Lung Cancer Father smoker ??? Cancer - Colon Brother 55 2007 ??? Cancer - Breast Maternal Aunt 70 Allergies Allergen Reactions ??? Darvon Nausea and/or Vomiting and Dizziness Current Outpatient Medications Medication Sig Dispense Refill ??? calcium 600 MG tablet Take 2 Tabs by mouth daily with food ??? Cetirizine HCl (ZYRTEC PO) Take by mouth nightly as needed ??? Cholecalciferol (VITAMIN D-3) 1000 UNITS Take by mouth 2 times daily ??? Dextromethorphan-Guaifenesin (MUCINEX DM MAXIMUM STRENGTH PO) Take by mouth as needed ??? doxycycline hyclate (VIBRAMYCIN) 100 MG capsule ??? famotidine (PEPCID) 20 MG tablet Take 1 (one) tablet by mouth 2 times daily 180 tablet 3 ??? furosemide (LASIX) 20 MG tablet TAKE 1 TABLET TWICE A DAY 180 tablet 1 ??? glucosamine-chondroitin (GLUCOSAMINE CHONDR COMPLEX) 500-400 MG capsule Take 1 capsule by mouthonce daily 30 capsule 5 ??? lisinopril (PRINIVIL; ZESTRIL) 20 MG tablet TAKE 1 TABLET DAILY 90 tablet 0 ??? metoclopramide (REGLAN) 5 MG tablet Take 1 (one) tablet by mouth 3 times daily before meals Reasons: Gastroesophageal Reflux Disease 90 tablet 3 ??? pantoprazole EC (PROTONIX) 40 MG tablet Take 1 (one) tablet by mouth once daily 30 tablet 6 ??? RABEprazole EC (ACIPHEX) 20 MG tablet Take 1 (one) tablet by mouth 2 times daily 180 tablet 1 ??? rosuvastatin (CRESTOR) 10 MG tablet TAKE 1 TABLET ONCE DAILY FOR HIGH AMOUNT OF FATS IN THE BLOOD 90 tablet 0 No current facility-administered medications for this visit. SCREENING SCHEDULE Health Maintenance Topic Date Due ??? DTAP/TDAP/TD VACCINES (1 - Tdap) Never done ??? ZOSTER VACCINE (1 of 2) Never done ??? DIABETES-EYE EXAM 12/08/2019 ??? MAMMOGRAM 04/29/2020 ??? INFLUENZA VACCINE (1) 11/08/2020 ??? COVID-19 VACCINE (3 - Booster for Moderna series) 11/29/2020 ??? ANNUAL MEDICARE WELLNESS VISIT 01/10/2021 ??? DIABETES-FOOT EXAM WITH MONOFILAMENT 01/10/2021 ??? BONE DENSITY TESTING 03/17/2021 ??? DIABETES-HGB A1C 03/01/2021 ??? HCC (Chart Reviewer Use Only) 03/15/2021 ??? Colorectal Cancer Screening 11/06/2023 ??? PNEUMOCOCCAL VACCINE 65+ Completed ??? HEPATITIS C SCREENING Completed ??? HEPATITIS B VACCINE Aged Out ??? HIB VACCINE Aged Out ??? MENINGOCOCCAL VACCINE Aged Out REVIEW OF BENEFICIARY'S POTENTIAL RISK FACTORS FOR DEPRESSION AND OTHER MOOD DISORDERS DEPRESSION PHQ-2:PHQ2 TOTAL SCORE: 0 PHQ-9: EXAM Vitals: 02/16/21 1601 BP: 142/90 Pulse: 83 Temp: 98.1 ??F (36.7 ??C) SpO2: 97% Weight: 90.3 kg (199 lb) Body mass index is 35.26 kg/m??. VISUAL ACUITY SCREEN No exam data present CURRENT PROVIDERS Care team updated END-OF-LIFE PLANNING, UPON AGREEMENT OF BENEFICIARY ADVANCED DIRECTIVE Yes CODE STATUS Full Code EDUCATION, COUNSELING, AND REFERRAL BASED ON THE PREVIOUS SCREENING Above screenings were performed and referrals were made as appropriately needed. CURRENT DIET Regular PHYSICAL ACTIVITY Exercise: water aeoribics 4 times a week COGNITIVE ASSESSMENT (DIRECT OBSERVATION/FAMILY/FRIENDS/SIGN HANGER): normal Medicare Annual Wellness Visit 02/16/2021 1. During the past 4 weeks, how [...] activity level during the past 4 weeks? Very Active 7. Do you participate or engage in physical activity or exercise each week? Yes 7A .How many minutes per week? Less than 150 8. Do you have sexual [...] around or step over cords or wires? Yes 14. Does your home have grab bars in the bathroom and handrails on the stairs? Yes 15. Have you fallen in the last year? No 24A. Fall >2 x or injured from the fall? - 16. Do you feel unsteady when standing or walking? No 17. Do you worry about falling? Yes 18. Do you need help from others [...] have been instructed to take them? No 23. Do you have difficulty hearing or do you use hearing aids? No 24. Do you have problems with your teeth or dentures? No 25. In the past 4 weeks, how would you rate your pain, aches, soreness, or discomfort? Moderate pain 26. Do you have any history of leaking urine or urinary incontinence? Yes Denies physical therapy, does balance in the pool. 02/16/2021 Maura Watkins 1950 Chief Complaint Patient presents with ??? Complete Physical Exam amw HPI: Maura Watkins is a 70 year old year old patient of Dr. Tamia Brooks MD I have previously seen this patient. Patient presents to the office today for follow up of chronic medical problems. HYPERTENSION/CKD - seeing Dr. Baltazar Checks BP at Home: not checking BP Readings from Last 3 Encounters: 02/16/21 142/90 08/30/20 120/80 01/11/20 140/80 Medication Compliance: taking as directed Dietary Compliance: norii kariss Exercise: water aerobics 4 times a week Weight: Wt Readings from Last 3 Encounters: 02/16/21 90.3 kg (199 lb) 08/30/20 90.3 kg (199 lb) 01/11/20 88.7 kg (195 lb 9.6 oz) Denies: Headache, vision changes, New or increased chest pain, Dyspnea, HERBERT, Orthopnea, Paroxysmal nocturnal dyspnea, Lower extremity swelling DM- diet controlled Dietary Compliance: does not use sugar Denies: Polyuria, polydipsia, polyphagia Eye Exam: due for annual Hgb A1C: 6.3 Recent Labs Component Name 08/30/20 1441 01/06/19 0000 10/19/18 1120 HGBA1C 6.2 5.8 6.5* she denies numbness, tingling or pain in extremities Statin: yes Denies Muscle aches/cramping GERD - did follow up with Dr. Calix - continuing medications as directed by GI - needs to make follow up appointment with GI Depression: PHQ-2:PHQ2 TOTAL SCORE: 0 PHQ-9: Patient Care Team: Tamia Brooks MD as PCP - General (Internal Medicine) Tamia Brooks MD as PCP - [facility] Yohan Barros DPM (Podiatry) Health Maintenance Topic Date Due ??? DTAP/TDAP/TD VACCINES (1 - Tdap) Never done ??? ZOSTER VACCINE (1 of 2) Never done ??? DIABETES-EYE EXAM 12/08/2019 ??? MAMMOGRAM 04/29/2020 ??? INFLUENZA VACCINE (1) 11/08/2020 ??? COVID-19 VACCINE (3 - Booster for Moderna series) 11/29/2020 ??? ANNUAL MEDICARE WELLNESS VISIT 01/10/2021 ??? DIABETES-FOOT EXAM WITH MONOFILAMENT 01/10/2021 ??? BONE DENSITY TESTING 03/17/2021 ??? DIABETES-HGB A1C 03/01/2021 ??? HCC (Chart Reviewer Use Only) 03/15/2021 ??? Colorectal Cancer Screening 11/06/2023 ??? PNEUMOCOCCAL VACCINE 65+ Completed ??? HEPATITIS C SCREENING Completed ??? HEPATITIS B VACCINE Aged Out ??? HIB VACCINE Aged Out ??? MENINGOCOCCAL VACCINE Aged Out Current Outpatient Medications Medication Sig Dispense Refill ??? calcium 600 MG tablet Take 2 Tabs by mouth daily with food ??? Cetirizine HCl (ZYRTEC PO) Take by mouth nightly as needed ??? Cholecalciferol (VITAMIN D-3) 1000 UNITS Take by mouth 2 times daily ??? Dextromethorphan-Guaifenesin (MUCINEX DM MAXIMUM STRENGTH PO) Take by mouth as needed ??? doxycycline hyclate (VIBRAMYCIN) 100 MG capsule ??? famotidine (PEPCID) 20 MG tablet Take 1 (one) tablet by mouth 2 times daily 180 tablet 3 ??? furosemide (LASIX) 20 MG tablet TAKE 1 TABLET TWICE A DAY 180 tablet 1 ??? glucosamine-chondroitin (GLUCOSAMINE CHONDR COMPLEX) 500-400 MG capsule Take 1 capsule by mouthonce daily 30 capsule 5 ??? lisinopril (PRINIVIL; ZESTRIL) 20 MG tablet TAKE 1 TABLET DAILY 90 tablet 0 ??? metoclopramide (REGLAN) 5 MG tablet Take 1 (one) tablet by mouth 3 times daily before meals Reasons: Gastroesophageal Reflux Disease 90 tablet 3 ??? pantoprazole EC (PROTONIX) 40 MG tablet Take 1 (one) tablet by mouth once daily 30 tablet 6 ??? RABEprazole EC (ACIPHEX) 20 MG tablet Take 1 (one) tablet by mouth 2 times daily 180 tablet 1 ??? rosuvastatin (CRESTOR) 10 MG tablet TAKE 1 TABLET ONCE DAILY FOR HIGH AMOUNT OF FATS IN THE BLOOD 90 tablet 0 No current facility-administered medications for this visit. Allergies Allergen Reactions ??? Darvon Nausea and/or Vomiting and Dizziness Past Medical History: Diagnosis Date ??? Anhydrotic [...] UPPER 10/04/2016 gastritis, hiatus hernia-Yogi ??? Hysterectomy Family History Problem Relation Name Age of Onset ??? Heart Failure Mother ??? Lung Cancer Father smoker ??? Cancer - Colon Brother 55 2008 ??? Cancer - Breast Maternal Aunt 70 Social History Socioeconomic History ??? Marital status: Spouse name: Not on file ??? Number of children: 0 ??? Years of education: 13+ ??? Highest education level: Not on file Occupational History ??? Not on file Tobacco Use ??? Smoking status: Former Smoker Packs/day: 0.20 Years: 12.00 Pack years: 2.40 Types: Cigarettes Quit date: 03/10/1990 Years since quittin.9 ??? Smokeless tobacco: Never Used Substance and Sexual Activity ??? Alcohol use: [...] on file Transportation Needs: Not on file Physical Activity: Not on file Stress: Not on file Social Connections: Not on file Intimate Partner Violence: Not on file Housing Stability: Not on file ROS See pertinent positives and/or negatives in HPI. Vitals: 02/16/21 1601 BP: 142/90 Pulse: 83 Temp: 98.1 ??F (36.7 ??C) SpO2: 97% Weight: 90.3 kg (199 lb) Wt Readings from Last 3 Encounters: 02/16/21 90.3 kg (199 lb) 08/30/20 90.3 kg (199 lb) 01/11/20 88.7 kg (195 lb 9.6 oz) Physical Exam Vitals and nursing note reviewed. HENT: Head: Normocephalic and atraumatic. Eyes: Extraocular Movements: Extraocular movements intact. Cardiovascular: Rate and Rhythm: Normal rate and regular rhythm. Heart sounds: Normal heart sounds. Pulmonary: Effort: Pulmonary effort is normal. Breath sounds: Normal breath sounds. Abdominal: General: Bowel sounds are normal. Palpations: Abdomen is soft. Tenderness: There is no abdominal tenderness. Musculoskeletal: General: Normal range of motion. Cervical back: Normal range of motion. Skin: General: Skin is warm and dry. Neurological: Mental Status: She is alert and oriented to person, place, and time. Gait: Gait is intact. Psychiatric: Mood and Affect: Mood and affect normal. Cognition and Memory: Memory normal. Judgment: Judgment normal. A comprehensive diabetic foot exam was performed today on bare feet including visual inspection, monofilament, and assessment of pulses. The exam was normal, showing no lesions. Patient had normal pulses and sensation. Labs/Imaging reviewed: yes Recent Labs Component Name 01/12/21 0920 02/11/20 0800 10/19/18 1120 04/11/18 0000 09/26/17 0935 05/22/17 0835 09/26/16 0802 SODIUM 142 144 143 142 - - 143 POTASSIUM 4.9 4.4 4.9 4.5 - - 4.9 CHLORIDE 102 101 107* 104 - - 101 CO2 25 24 19* 22 - - 23 BUN 27 20 18 18 - - 23 CREATININE 1.35* 1.33* 1.18* - - - 1.24* GLUCOSE 111* 121* 96 113 - - 113* CALCIUM 9.8 10.1 9.7 9.8 - - 9.6 ALT - 19 16 - - - 19 ALKPHOS - 111 111 3.5 - - 131* AST - 16 19 - - - 22 TBIL - 0.3 <0.2 - - - 0.5 TPROT - 7.2 6.9 - - - 7.0 EGFR 39* 40* 47* 48 - - 45* EGFRAFR 45* 46* 54* 55 - - 52* ALBUMIN - 4.6 4.4 - - - 4.7 - = values in this interval not displayed. Recent Labs Component Name 01/12/21 0921 02/11/20 0800 10/19/18 1120 WBC 7.2 5.9 6.8 RBC 4.34 4.60 4.42 HGB 12.8 13.4 12.5 HCT 37.8 40.4 37.8 MCV 87 88 86 MCHC 33.9 33.2 33.1 PLTCOUNT 284 289 281 MONOCYTPCT 10 11 10 EOSINPCT 7 3 3 LYMPHABS 1.8 1.9 1.9 MONOCYTABS 0.7 0.6 0.7 BASOABS 0.1 0.1 0.1 IMMGRANSABS 0.0 0.0 0.0 Recent Labs Component Name 01/12/21 0920 02/11/20 0800 10/19/18 1120 CHOL 166 201* 198 TRIG 214* 196* 211* HDL 39* 40 43 VLDL 36 35 42* LDLCALC 91 126* 113* Impression/ Plan 1. Medicare annual wellness visit, subsequent New Problem - questions answered and addressed - patient declined physical therapy 2. Diet-controlled diabetes mellitus New Problem - A1C 6.3 today - reviewed diet and exercise - HEMOGLOBIN A1C - POINT OF CARE (HgbA1C) 3. Need for shingles vaccine - zoster vaccine recombinant adjuvanted (SHINGRIX) 50 MCG/0.5ML SUSR injection; Inject 0.5 mL into muscle once for 1 dose Dispense: 0.5 mL; Refill: 0 4. Hypertension, benign essential New Problem - slightly elevated/at goal in office - defer to Nephrology - continue current medication regimen - reviewed signs and symptoms that warrant call to office - reviewed proper home blood pressure monitoring including logging to bring into office visits - recommend upper arm manual cuff for accuracy - reviewed blood pressure parameters including concerning parameters that warrant a call to the office - reviewed diet and exercise goals 5. Stage 3b chronic kidney disease New Problem - Nephrology following 6. Gastroesophageal reflux disease without esophagitis New Problem - follow up with GI Medication(s) I personally manage have been reviewed and updated today, see Medication Tab. Orders Placed This Encounter ??? HEMOGLOBIN A1C - POINT OF CARE (HgbA1C) Order Specific Question: Release to patient Answer: Immediate ??? zoster vaccine recombinant adjuvanted (SHINGRIX) 50 MCG/0.5ML SUSR injection Sig: Inject 0.5 mL into muscle once for 1 dose Dispense: 0.5 mL Refill: 0 Return in about 4 months (around 06/17/2021), or if symptoms worsen or fail to improve, for CMP withNP AND 1 year AMW with PCP. STEPHANIE Mann Handouts containing literature appropriate to this visit/diagnosis given to the patient. If symptoms do not start to improve in 48 hours or if they worsen, patient(s) are instructed to call or make an appointment or go to ER if necessary. MATOR PRINTING PLATE MAKING documented in this encounter Plan of Treatment Upcoming Encounters Date Type Department Care Team (Late st Contact Info) Description 06/29/2024 10:00 AM CDT Office Visit [facility] - Internal Medicine [address] [place] [address] [place] [phone] Tamia Brooks MD [address] [place] [phone] Scheduled Orders Name Type Priority Associated Diagnoses Orde r Schedule HEMOGLOBIN A1C - POINT OF CARE (HgbA1C) Point of Care Testing Routine Diet-controlled diabetes mellitus (HCC) Ordered: 02/16/2021 documented as of this encounter Goals Goal Patient Goal Type Associated Problems Recent Progress Patient-Stated? Author Blood Pressure < 140/90 Blood Pressure 130/70( 024 1:19 PM CDT) Lola Serna MA documented as of this encounter Visit Diagnoses Diagnosis Medicare annual wellness visit, subsequent- Primary Routine general medical examination at a health care facility Diet-controlled diabetes mellitus (HCC) Need for shingles vaccine Need for prophylactic vaccination and inoculation against varicella Hypertension, benign essential Essential hypertension, benign Stage 3b chronic kidney disease (HCC) Gastroesophageal reflux disease without esophagitis Esophageal reflux documented in this encounter Care Teams Mixologist Relationship Specialty Start Date End Date Tamia Brooks MD [address] [place] [phone] PCP - General Internal Medicine 07/26/16 [place] [address] [place] [address] [place] [phone] PCP - Attributed-MSSP 01/09/20 03/29/21 Yohan Barros, ZOYA [address] Pending sale to [facility] [place] [phone] Podiatry 05/24/13 documented as of this encounter
--- OUTSIDE RECORDS SUMMARY | 2024-03-22 20:11 | XMS_ITS | Encounter Summary ---
Author Organization [facility] Address [address] [facility] [place] [address] Care Team Providers Care Directory Operator Name Role Phone Yohan Barros DPM Unavailable [phone] Tamia Brooks MD Primary Care Provider Efrain Dunlap MD Unavailable Tamia Brooks MD Unavailable [phone] Reason for Visit * Reason Onset Date Comments MEDICATION REFILL 07/22/2019 Encounter Details Date Type Department Care Team (Late st Contact Info) Description 07/22/2019 Refill [facility] - Internal Medicine [address] [place] [address] [place] [phone] Tamia Brooks MD [address] [place] [phone] MEDICATION REFILL Social History Tobacco Use [...] Exposure Response Date Recorded In the last month, have you been in contact with someone who was confirmed or suspected to have Coronavirus / COVID-19? No / Unsure 07/07/2019 8:39 AM CDT documented as of this encounter Miscellaneous Notes * Telephone Encounter - Audra Bernal - 07/22/2019 10:09 AM CDT Pt requesting refill on inhaler. Appears it was from historical provider originally. Last appt: 05/10/19-SLIDE MAKER Next appt: 01/11/20 Number of cancel or no shows in the last 12 months: 1 Allergies have been reviewed. Correct pharmacy is populated. Please sign RX and close encounter. documented in this encounter Plan of Treatment Upcoming Encounters Date Type Department Care Team (Late st Contact Info) Description 06/29/2024 10:00 AM CDT Office Visit [facility] - Internal Medicine [address] [facility] [address] [place] [phone] Tamia Brooks MD [address] [place] [address] [place] [phone] documented as of this encounter Goals Goal Patient Goal Type Associated Problems Recent Progress Patient-Stated? Author Blood Pressure < 140/90 Blood Pressure 130/70( 024 1:19 PM CDT) Lola Serna MA documented as of this encounter Visit Diagnoses Not on filedocumented in this encounter Care Teams Directory Operator Relationship Specialty Start Date End Date Tamia Brooks MD [address] [place] [address] [address] [place] [phone] PCP - General Internal Medicine 07/26/16 Tamia Brooks MD [address] [place] [address] [place] [phone] PCP - Attributed-MSSP 04/10/19 12/08/19 Yohan Barros DPM [address] [phone] Podiatry 05/24/13 Efrain Dunlap MD [address] [place] [address] Orthopedic Surgery 01/06/19 08/29/20 documented as of this encounter
--- OUTSIDE RECORDS SUMMARY | 2024-03-22 20:11 | XMS_ITS | Encounter Summary ---
Author Organization [facility] Address [address] [place] [address] Care Team Providers Care Claim Professional Name Role Phone Yohan Barros DPM Unavailable [phone] Tamia Brooks MD Primary Care Provider Reason for Visit * Reason Comments Medicare Subsequent Annual Wellness Visi t Encounter Details Date Type Department Care Team (Late st Contact Info) Description 02/20/2022 10:20 AM HEALTH RECORD TECHNICIAN Office Visit [facility] - Internal Medicine [address] [place] [phone] Tamia Brooks MD [address] [place] [phone] Routine general medical examination at health care facility (Primary Dx); Hypertension, benign essential; Diet-controlled diabetes mellitus (HCC); Type 2 diabetes mellitus with stage 3 chronic kidney disease, without long-term current use of insulin, unspecified whether stage 3a or 3b CKD (HCC); Mixed hyperlipidemia; Chronic diastolic congestive heart failure (HCC); DAILY (obstructive sleep apnea); Stage 3b chronic kidney disease (HCC); Anhydrotic dermatitis of foot 04/27/12; Allergic rhinitis, unspecified seasonality, unspecified trigger; BMI 35.0-35.9,adult; Chronic insomnia; Class 1 obesity due to excess calories with serious comorbidity and body mass index (BMI) of 33.0 to 33.9 in adult; Osteopenia, unspecified location; Prediabetes; Primary osteoarthritis of both knees; Situational mixed anxiety and depressive disorder; Asymptomatic postmenopausal state; Venous stasis dermatitis of both lower extremities; Gastroesophageal reflux disease, unspecified whether esophagitis present [...] Sign Reading Time Taken Comments Blood Pressure 128/72 02/20/2022 10:25 AM HEALTH RECORD TECHNICIAN Pulse 80 02/20/2022 10:25 AM HEALTH RECORD TECHNICIAN Temperature 36.2 ??C (97.2 ??F) 02/20/2022 10:[address] Respiratory Rate - - Oxygen Saturation 98% 02/20/2022 10:25 AM HEALTH RECORD TECHNICIAN Inhaled Oxygen Concentration - - Weight 90.1 kg (198 lb 9.6 oz) 02/20/2022 10:25 AM HEALTH RECORD TECHNICIAN Height 165.1 cm (5' 5 ) 02/20/2022 10:25 AM HEALTH RECORD TECHNICIAN Body Mass Index 33.05 02/20/2022 10:25 AM HEALTH RECORD TECHNICIAN documented in this encounter Patient Instructions * Patient Instructions* Tamia Brooks MD - 02/20/2022 10:42 AM HEALTH RECORD TECHNICIAN Please arrive 15 minutes early to your next appointment. Following your visit, you may receive a survey via email or U.S. Mail about your experience with us. We encourage you to respond to this confidential survey about our care. We at [facility] are committed to always providing you with the most exceptional care. Your feedback helps us provide quality service at every visit. Start checking blood sugars 2-3 days per week. Goal blood sugar 90-120 fasting and less than 180 after meals. Get bone density scan in Mar. Please call to schedule at [phone] or . Get fasting labs done in June. Can take zyrtec twice daily if needed. Caring for Your Diabetes Exercise Tips ??? Physical activity is important for everyone???s health but especially important if you have diabetes. It can lower blood glucose levels by improving the body???s ability to utilize both glucose and insulin. ??? Check with your provider before starting an exercise program. ??? When starting a physical activity program, begin slowly to avoid injury. Even doing 5 to 10 minutes can be beneficial. Add a few minutes each week till you reach your goal. Choose an activity that fits your fitness level and interests, one that you can do on a regular basis. ??? Exercise activities like running, using weights, going to the gym are one type of physical activity, but day to day activities such as walking, stairs, cutting grass, gardening, and riding a bikeor vacuuming are also physical activities. IT ALL COUNTS!!!! ??? For a Food and Activity Tracker you can keep at home, go to: My Game Plan: Food and Activity Tracker Important Vaccinations When you have diabetes, it???s important to keep up to date with vaccinations, or immunizations. ??? Importance of flu vaccine: Flu is a serious illness that can lead pneumonia and even . People with diabetes can become very ill when they get the flu and may need to be hospitalized. It is recommended that you get the flu vaccine every year ??? Importance of Pneumonia vaccine: Pneumonia is a serious illness that affects the lungs and may also lead to infections of the blood and the covering of the brain (meningitis). You can get the pneumonia vaccine any time of the year. It is suggested that you have the vaccine once before the age of 65 and once after the age of 65. ??? Your provider may also suggest additional vaccines such as tetanus or Hepatitis B. Talk with your provider to see if these vaccines are appropriate for you and ask your insurance company about coverage. The following resources can help you and the people close to you learn more about diabetes and how to manage your diabetes: ??? [place] Diabetes Association: www.diabetes.org 8-167-MKZKBPSJ ( ) ??? [place] Diabetes Association-Support group line: www.professional.diabetes.org ??? [place] Heart Association: www.heart.org or 7-527-QPJ-[place]-1 ( ) ??? TreatFeed MyPlate: www.choosemyplate.gov Caring for Your High Blood Pressure Healthy Lifestyle tips ??? Manage stress: Stress may slow healing and cause illness later. Since it is hard to avoid stress, learn to control it. Learn new ways to relax. Ask your provider for more information on ways to relax. Talk to someone about things that upset you. ??? Stop smoking: If you smoke, you should quit. Smoking harms the heart, lungs, and blood. You aremore likely to have a heart attack, lung disease, and cancer if you smoke. Smoking can also make your hypertension worse. It is never too late to quit. Quitting smoking improves your health, and the health of those around you. If you have trouble quitting, talk to your provider about ways to quit. ??? Drinking alcohol: If you drink alcohol, limit how much you drink. Do not drink more than two drinks a day. One drink is a can of beer (12 ounces) or four ounces (one-half cup) of wine. It is alsothe same as one jigger (one and one- half ounces) of hard liquor, such as whiskey. ??? Maintain a healthy weight. Weighing to much can make your heart work harder and cause high blood pressure. Other health problems are caused about weighing too much. Talk to your provider about anideal weight for you. Where can I go for more information? [place] [employer] Association National Center: http://www.americanheart.org 1. In the top header, click ???Conditions?? . 2. In the top header, click ???high blood pressure.?? 3. For a printable blood pressure tracker, scroll toward the bottom of the page to Related Tools, and click ???HBP Trackers.?? 9-019-PHE-USA-1 or ( ) National Heart, Lung and Blood [place]: http://www.nhlbi.nih.gov/health/infoctr/index.htm Medicare Annual Wellness Visit Checklist Patient Care Team: Tamia Brooks MD as PCP - General (Internal Medicine) Yohan Barros DPM (Podiatry) The following list shows your recommended preventative service schedule and due dates. Health Maintenance Topic Date Due ??? DTAP/TDAP/TD VACCINES (1 - Tdap) Never done ??? ZOSTER VACCINE (1 of 2) Never done ??? DIABETES-EYE EXAM 12/08/2019 ??? MAMMOGRAM 04/29/2020 ??? COVID-19 VACCINE (4 - Booster for Moderna series) 03/15/2021 ??? BONE DENSITY TESTING 03/17/2021 ??? DIABETES-FOOT EXAM WITH MONOFILAMENT 02/16/2022 ??? HCC (Chart Reviewer Use Only) 03/29/2022 ??? DIABETES-HGB A1C 08/21/2022 ??? MEDICARE AWV - 12 MONTHS 02/20/2023 ??? Colorectal Cancer Screening 11/06/2023 ??? PNEUMOCOCCAL VACCINE 65+ Completed ??? INFLUENZA VACCINE Completed ??? HEPATITIS C SCREENING Completed ??? HEPATITIS B VACCINE Aged Out ??? HIB VACCINE Aged Out ??? MENINGOCOCCAL VACCINE Aged Out Topics that are Completed mean that they will not need to be done again. Topics that are Aged Out are things that have not been done but no longer are applicable to you. ?? Keep up-to-date Healthcare Power of Church Administrator and Living Will documents with our office. In any emergency or unexpected hospitalization, these documents will then be visible for care providers to honor your wishes. Patient Education TH RECORD TECHNICIAN documented in this encounter Progress Notes * Radha Virgen - 02/20/2022 10:42 AM CST Office Visit on 02/20/22 HEMOGLOBIN A1C - POINT OF CARE (HgbA1C) Result Value Ref Range Hemoglobin A1c POCT 6.5 % Expiration Date 12/25/23 Lot # [id number] QC Verified Yes Yes TH RECORD TECHNICIAN * Tamia Brooks MD - 02/20/2022 10:30 AM CST Tamia Brooks M.D [facility] - Division of Internal Medicine [address], [address] [place] [address] MEDICARE ANNUAL WELLNESS VISIT (12 months after [...] kidney disease) stage 3, GFR 30-59 ml/min ([facility]) Osteopenia DAILY (obstructive sleep apnea) Class 1 obesity due to excess calories with serious comorbidity and body mass index (BMI) of 33.0 to 33.9 in adult BMI 35.0-35.9,adult Chronic diastolic congestive heart failure ([facility]) Type 2 diabetes mellitus with stage 3 chronic kidney disease, without long-term current use of insulin ([facility]) Diet-controlled diabetes mellitus ([facility]) Past Medical History: Diagnosis Date ??? Anhydrotic [...] Smoking status: Former Packs/day: 0.20 Years: 12.00 Pack years: 2.40 Types: Cigarettes Quit date: 03/10/1990 Years since quittin.9 ??? Smokeless tobacco: Never Vaping Use ??? [...] to Visit Medication Sig Dispense Refill ??? calcium 600 MG tablet Take 2 (two) tablets by mouth daily with food ??? Cetirizine HCl (ZYRTEC PO) Take by mouth nightly as needed ??? Cholecalciferol (VITAMIN D-3) 1000 UNITS Take by mouth 2 times daily ??? Dextromethorphan-Guaifenesin (MUCINEX DM MAXIMUM STRENGTH PO) Take by mouth as needed ??? furosemide (LASIX) 20 MG tablet TAKE 1 TABLET TWICE A DAY 180 tablet 1 ??? glucosamine-chondroitin (GLUCOSAMINE CHONDR COMPLEX) 500-400 MG capsule Take 1 capsule by mouthonce daily 30 capsule 5 ??? lansoprazole (PREVACID) 15 MG capsule Take 1 (one) capsule to 2 (two) capsules by mouth once daily TO IMPROVE HEARTBURN SYMPTOMS Reasons: Gastroesophageal Reflux Disease 60 capsule 1 ??? lisinopril (PRINIVIL; ZESTRIL) 40 MG tablet Take 1 (one) tablet by mouth once daily Reasons: High Blood Pressure Disorder 90 tablet 1 ??? metoclopramide (REGLAN) 5 MG tablet Take 1 (one) tablet by mouth 3 times daily before meals Reasons: Gastroesophageal Reflux Disease 90 tablet 1 ??? rosuvastatin (Crestor) 10 MG tablet TAKE 1 TABLET ONCE DAILY 15 tablet 0 ??? tiZANidine (ZANAFLEX) 4 MG tablet Take 1 (one) tablet by mouth every 8 hours as needed for Muscle Spasms 30 tablet 0 No current facility-administered medications on file prior to visit. Immunization History Administered Date(s) Administered ??? Covid Moderna primary monovalent 12+ yr [...] 01/08/2010, 09/16/2016 ??? Pneumococcal Pcv13 Conj 07/10/2015 HISTORY OF PRESENT ILLNESS Chief Complaint Patient presents with ??? Medicare Subsequent Annual Wellness Visit Some ear congestion, PND, sore throat for the last 2 weeks. No f/c, CAMPUZANO, or dizziness Using mucinex and coricidin w/oimprovement No covid test RUE pain - resolved GERD - denies any current issues ?? HTN/CKD3 - reports Dr. Baltazar raised her BP medication. - BP at home:??not checking?? - medication compliance is good - dietary compliance is good - denies CP, SOB, LE edema BP Readings from Last 3 Encounters: 02/20/22 128/72 10/29/21 141/90 09/26/21 118/72 HLD - on statin - denies myalgias The 10-year ASCVD risk score (Darinel CASTRO, et al., 2019) is: 30.3% Values used to calculate the score: Age: 71 years Sex: Female Is Non- : No Diabetic: Yes Tobacco smoker: No Systolic Blood Pressure: 128 mmHg Is BP treated: Yes HDL Cholesterol: 39 mg/dL Total Cholesterol: 166 mg/dL ?? DDD lumbar?? - doing ok. Not needing meds ?? DAILY - on CPAP nightly?DM2??- diet controlled?? - not checking BG - a1c today 6.5% - BG at home:??not checking - hypoglycemia/symptoms:??none - tests??1-2?per day - DM eye exam scheduled. ?? Diet:?Smaller portions, more veggies, and voss diet?? Exercise: not currently Sleep:??is good. ?? Recent Labs Component Name 01/12/21 0920 02/11/20 [...] 284 289 281 Recent Labs Component Name 08/30/20 1441 01/06/19 0000 10/19/18 1120 HGBA1C 6.2 5.8 6.5* Recent Labs Component Name 01/12/21 0920 02/11/20 0800 10/19/18 1120 CHOL 166 201* 198 TRIG 214* 196* 211* HDL 39* 40 43 LDLCALC 91 126* 113* No results for input(s): MICROALBUGML in the last 59941 hours. Recent Labs Component Name 02/11/20 0800 MICROALBCREA 13 No results for input(s): INR in the last 80820 hours. Wt Readings from Last 3 Encounters: 02/20/22 90.1 kg (198 lb 9.6 oz) 10/29/21 92.1 kg (203 lb) 09/26/21 92.4 kg (203 lb 9.6 oz) Medicare Annual Wellness Visit 09/26/2021 1. During the past 4 weeks, how would you rate your health in general? - 2. Do you have problems with stress, anger, loneliness, isolation or fatigue? - 3. Do you smoke/vape/use tobacco? - 4. How often did you have a drink containing alcohol in the past year? - 5. Do you use recreational drugs? - 6. What best describes your activity level during the past 4 weeks? - 7. Do you participate or engage in physical activity or exercise each week? - 7A .How many minutes per week? - 8. Do you have sexual problems or difficuilties with physical intimacy? - 9. Do you always fasten your seat belt when you are in a car? - 10. Are there smoke alarms and carbon monoxide alarms in your home? - 11. In the bedroom, are you able to quickly and easily reach a light or light switch? - 12. Is the path from your bed to the bathroom free of obstacles with adequate lighting? - 13. Do you have throw rugs on the floor or do you have to walk around or step over cords or wires? - 14. Does your home have grab bars in the bathroom and handrails on the stairs? - 15. Have you fallen in the last year? No 24A. Fall >2 x or injured from the fall? - 16. Do you feel unsteady when standing or walking? - 17. Do you worry about falling? - 18. Do you need help from others to perform everyday activities such as: Eating, getting dressed, grooming, bathing, walking or using the restroom? - 19. Do you need help from others to perform everyday activities such as: Shopping, housework, meal preparation, managing money, or using the telephone? - 20. Do you have difficulty in getting transportation to where you need to go? - 21. Do you have any concerns about your nutrition or access to food? - 22. Do you have trouble taking medications the way you have been instructed to take them? - 23. Do you have difficulty hearing or do you use hearing aids? - 24. Do you have problems with your teeth or dentures? - 25. In the past 4 weeks, how would you rate your pain, aches, soreness, or discomfort? - 26. Do you have any history of leaking urine or urinary incontinence? - CURRENT DIET limits carbohydrates, limits fats and cholestrol intake, limits salt intake DEPRESSION SCREENING (Annals Int Med., 151(11): Feb 15; pp 784-790) Depression: PHQ-2:PHQ2 TOTAL SCORE: 0 PHQ-9: Depression risk factors identified: none FALL RISK no falls in the last yr CODE STATUS Full code. ADVANCE DIRECTIVE Do you have a medical advance directive:Yes Do you have a power of estate planning attorney:Yes Was form for POA/Advance directive given: No DURABLE MEDICAL EQUIPMENT [ ] Needs a cane due to gait instability [ ] Needs a walker due to gait instability [ ] Needs a hospital bed due to difficulty with positioning. [ ] Needs oxygen due to hypoxia. [x ] Needs CPAP/APAP for sleep apnea [ ] Needs diabetic monitoring supplies for diabetes. [ ] No routine use of DME LIST OF PROVIDERS Patient Care Team: Tamia Brooks MD as PCP - General (Internal Medicine) Yohan Barros DPM (Podiatry) PHYSICAL EXAM Vitals: 02/20/22 1025 BP: 128/72 Pulse: 80 Temp: 97.2 ??F (36.2 ??C) SpO2: 98% Weight: 90.1 kg (198 lb 9.6 oz) Height: 1.651 m (5' 5 ) Body mass index is 33.05 kg/m??. CrCl cannot be calculated (Patient's most recent lab result is older than the maximum 15 days allowed.). GEN: Alert. In no acute distress. PSYCH: Pleasant. Answers questions appropriately. COGNITIVE: WNL Get Up and Go Test: 22 seconds Skin: No rash or palpable lesion. Eyes: PERRLA EEMT: TM's normal, Hearing intact, pharynx clear - clear mucus present. No TTP of sinuses. Neck: Supple, no goiter Nodes: no cervical, [...] DIABETES-EYE EXAM 12/08/2019 ??? MAMMOGRAM 04/29/2020 ??? DIABETES-HGB A1C 03/01/2021 ??? COVID-19 VACCINE (4 - Booster for Moderna series) 03/15/2021 ??? BONE DENSITY TESTING 03/17/2021 ??? DIABETES-FOOT EXAM WITH MONOFILAMENT 02/16/2022 ??? MEDICARE AWV - 12 MONTHS 02/16/2022 ??? HCC (Chart Reviewer Use Only) 03/29/2022 ??? Colorectal Cancer Screening 11/06/2023 ??? PNEUMOCOCCAL VACCINE 65+ Completed ??? INFLUENZA VACCINE Completed ??? HEPATITIS C SCREENING Completed ??? HEPATITIS B VACCINE Aged Out ??? HIB VACCINE Aged Out ??? MENINGOCOCCAL VACCINE Aged Out EDUCATION, COUNSELING, AND REFERRAL BASED ON THE PREVIOUS SCREENING Above screenings were performed and referrals were made as appropriately needed. Orders Placed This Encounter ??? HEMOGLOBIN A1C - POINT OF CARE (HgbA1C) Order Specific Question: Release to patient Answer: Immediate ICD-10-CM 1. Routine general medical examination at health care facility Z00.00 HM RISK ADJUSTED VISIT 2. Hypertension, benign essential I10 lisinopril (Prinivil; Zestril) 40 MG tablet RISK ADJUSTED VISIT 3. Diet-controlled diabetes mellitus ([facility]) E11.9 RISK ADJUSTED VISIT 4. Type 2 diabetes mellitus with stage 3 chronic kidney disease, without long- term current use of insulin, unspecified whether stage 3a or 3b CKD ([facility]) E11.22 HEMOGLOBIN A1C - POINT OF CARE (HgbA1C) N18.30 LIPID PROFILE REFLEX LDL DIRECT HEMOGLOBIN A1C RISK ADJUSTED VISIT 5. Mixed hyperlipidemia E78.2 rosuvastatin (Crestor) 10 MG tablet HM RISK ADJUSTED VISIT 6. Chronic diastolic congestive heart failure (CMS/HCC) I50.32 HM RISK ADJUSTED VISIT 7. DAILY (obstructive sleep apnea) G47.33 HM RISK ADJUSTED VISIT 8. Stage 3b chronic kidney disease (CMS/HCC) N18.32 furosemide (Lasix) 20 MG tablet HM RISK ADJUSTED VISIT 9. Anhydrotic dermatitis of foot 04/27/ L30.9 HM RISK ADJUSTED VISIT 10. Allergic rhinitis, unspecified seasonality, unspecified trigger J30.9 predniSONE (Deltasone) 20MG tablet HM RISK ADJUSTED VISIT 11. BMI 35.0-35.9,adult Z68.35 HM RISK ADJUSTED VISIT 12. Chronic insomnia F51.04 HM RISK ADJUSTED VISIT 13. Class 1 obesity due to excess calories with serious comorbidity and body mass index (BMI) of 33.0 to 33.9 in adult E66.09 HM RISK ADJUSTED VISIT Z68.33 14. Osteopenia, unspecified location M85.80 DEXA BONE DENSITY AXIAL SKELETON RISK ADJUSTED VISIT 15. Prediabetes R73.03 RISK ADJUSTED VISIT 16. Primary osteoarthritis of both knees M17.0 HM RISK ADJUSTED VISIT 17. Situational mixed anxiety and depressive disorder F43.23 HM RISK ADJUSTED VISIT 18. Asymptomatic postmenopausal state Z78.0 DEXA BONE DENSITY AXIAL SKELETON RISK ADJUSTED VISIT 19. Venous stasis dermatitis of both lower extremities I87.2 furosemide (Lasix) 20 MG tablet RISK ADJUSTED VISIT 20. Gastroesophageal reflux disease, unspecified whether esophagitis present K21.9 lansoprazole (Prevacid) 15 MG capsule metoclopramide (Reglan) 5 MG tablet RISK ADJUSTED VISIT Return for 6-7 mths f/u . TH RECORD TECHNICIAN documented in this encounter Plan of Treatment Upcoming Encounters Date Type Department Care Team (Late st Contact Info) Description 06/29/2024 10:00 AM CDT Office Visit [facility] - Internal Medicine [address] [phone] Tamia Brooks MD [address] [place] [phone] Scheduled Orders Name Type Priority Associated Diagnoses Orde r Schedule LIPID PROFILE REFLEX LDL DIRECT Lab Routine Type 2 diabetes mellitus with stage 3 chronic kidney disease, without long-term current use of insulin, unspecified whether stage 3a or 3b CKD (HCC) Ordered: 02/20/2022 HEMOGLOBIN A1C Lab Routine Type 2 diabetes mellitus with stage 3 chronic kidney disease, without long-term current use of insulin, unspecified whether stage 3a or 3b CKD (HCC) Ordered: 02/20/2022 documented as of this encounter Goals Goal Patient Goal Type Associated Problems Recent Progress Patient-Stated? Author Blood Pressure < 140/90 Blood Pressure 130/70( 024 1:19 PM CDT) No Lola Neff MA documented as of this encounter Procedures Procedure Name Priority Date/Time Associated Diagnosis Comments HEMOGLOBIN A1C - POINT OF CARE (AMB) Routine 02/20/2022 10:42 AM HEALTH RECORD TECHNICIAN Type 2 diabetes mellitus with stage 3 chronic kidney disease, without long-term current use of insulin, unspecified whether stage 3a or 3b CKD (HCC) documented in this encounter Results * HEMOGLOBIN A1C - POINT OF CARE (HgbA1C) (02/20/2022 10:42 AM HEALTH RECORD TECHNICIAN) Hemoglobin A1c POCT 6.5 % [facility] Expiration Date 12/25/[address] [facility] Lot # [id number] [facility] QC Verified Yes Yes [facility] Blood BLOOD SPECIMEN / Unknown 02/20/2022 10:42 AM HEALTH RECORD TECHNICIAN Tamia Brooks MD LAB - POINT OF CARE ORDERABLES [facility] [address] [phone] documented in this encounter Visit Diagnoses Diagnosis Routine general medical examination at health care facility- Primary Routine general medical examination at a health care facility Hypertension, benign essential Essential hypertension, benign Diet-controlled diabetes mellitus (HCC) Type 2 diabetes mellitus with stage 3 chronic kidney disease, without long-term current use of insulin, unspecified whether stage 3a or 3b CKD (HCC) Mixed hyperlipidemia Chronic diastolic congestive heart failure (HCC) Chronic diastolic heart failure DAILY (obstructive sleep apnea) Obstructive sleep apnea (adult) (pediatric) Stage 3b chronic kidney disease (HCC) Anhydrotic dermatitis of foot 04/27/12 Contact dermatitis and other eczema, due to unspecified cause Allergic rhinitis, unspecified seasonality, unspecified trigger BMI 35.0-35.9,adult Body Mass Index 35.0-35.9, adult Chronic insomnia Insomnia, unspecified Class 1 obesity due to excess calories with serious comorbidity and body mass index (BMI) of 33.0 to 33.9 in adult Osteopenia, unspecified location Prediabetes Other abnormal glucose Primary osteoarthritis of both knees Primary localized osteoarthrosis, lower leg Situational mixed anxiety and depressive disorder Adjustment disorder with mixed anxiety and depressed mood Asymptomatic postmenopausal state Venous stasis dermatitis of both lower extremities Gastroesophageal reflux disease, unspecified whether esophagitis present documented in this encounter Care Teams Claim Professional Relationship Specialty Start Date End Date Tamia Brooks MD [address] [phone] PCP - General Internal Medicine 07/26/16 Yohan Barros DPM [address] [phone] Podiatry 05/24/13 documented as of this encounter
--- OUTSIDE RECORDS SUMMARY | 2024-03-22 20:11 | XMS_ITS | Encounter Summary ---
Author Organization [facility] Health Address [address] [facility] [place] [address] Care Team Providers Care Hand Coke Drawer Name Role Phone Yohan Barros DPM Unavailable [phone] Tamia Brooks MD Primary Care Provider [phone] Efrain Dunlap MD Unavailable Tamia Brooks MD Unavailable [phone] Reason for Visit * Reason Onset Date Comments Results 10/02/2019 Encounter Details Date Type Department Care Team (Late st Contact Info) Description 10/02/2019 Telephone [facility] [address] [place] [address] Karen Chaudhry, EDILBERTO-MIKE [address] [place] [address] Results Social History Tobacco Use Types Packs/Day Years [...] have Coronavirus / COVID-19? No / Unsure 10/01/2019 4:15 PM CDT documented as of this encounter Miscellaneous Notes * Telephone Encounter - Karen Chaudhry APRN-CNP - 10/02/2019 3:09 PM CDT Critical results received from lab to [facility], therefore pt called. After verifying name and , POSITIVE COVID RESULTS reviewed with pt. Pt reports improvement symptoms at this time, had symptoms 3 weeks ago but now is ill. Pt instructed to self isolate at home for 14 days due to positive result unless to recent medical care. Pt verbalized understanding. documented in this encounter Plan of Treatment Upcoming Encounters Date Type Department Care Team (Late st Contact Info) Description 06/29/2024 10:00 AM CDT Office Visit [facility] - Internal Medicine [address] [place] [address] Tamia Brooks MD [address] [place] [phone] documented as of this encounter Goals Goal Patient Goal Type Associated Problems Recent Progress Patient-Stated? Author Blood Pressure < 140/90 Blood Pressure 130/70( 024 1:19 PM CDT) Lola Serna MA documented as of this encounter Visit Diagnoses Not on filedocumented in this encounter Additional Health Concerns Infection Onset Date Last Indicated Resolved Time COVID-19 Under Investigation 10/01/2019 10/01/2019 10/02/2019 12:35 PM CDT COVID-19 Confirmed 10/01/2019 10/01/2019 0 4:34 AM CDT documented as of this encounter Care Teams Hand Coke Drawer Relationship Specialty Start Date End Date Tamia Brooks MD [address] [place] [phone] PCP - General Internal Medicine 07/26/16 Tamia Brooks MD [address] [place] [address] [place] [address] PCP - Attributed-MSSP 04/10/19 12/08/19 Yohan Barros, ZOYA [address] [facility] [place] [facility] [address] [place] [address] Podiatry 05/24/13 Efrain Dunlap MD [address] [place] [address] Orthopedic Surgery 01/06/19 08/29/20 documented as of this encounter
--- OUTSIDE RECORDS SUMMARY | 2024-03-22 20:11 | XMS_ITS | Encounter Summary ---
Author Organization [facility] Address [address] [facility] [place] [address] Care Team Providers Care Onion Tier Name Role Phone Yohan Barros DPM Unavailable [phone] Tamia Brooks MD Primary Care Provider [phone] Reason for Visit * Reason Onset Date Comments MEDICATION REFILL 05/10/2021 Encounter Details Date Type Department Care Team (Late st Contact Info) Description 05/10/2021 Refill [facility] Medical [facility] - Internal Medicine [address] [facility] [address] [place] [address] Tamia Brooks MD [address] [place] [address] [place] [address] MEDICATION REFILL Social History Tobacco Use [...] encounter Miscellaneous Notes * Telephone Encounter - Radha Virgen - 05/10/2021 12:23 PM HOUSE MOVER Last appt: 1.20.22 Next appt: 06.20.21 Number of cancel or no shows in the last 12 months: 1 Allergies have been reviewed. Correct pharmacy is populated. Please sign RX and close encounter. E MOVER * Telephone Encounter - Janelle Banks - 05/10/2021 8:07 AM CST Patient is on vacation for a month in [place]; patient does not have enough of the medications below to last her until returning home. Patient is requesting medication be sent to [facility]. Patient can be reached at [phone]. E MOVER * Telephone Encounter - Janelle Banks - 05/10/2021 8:00 AM CST Maura Watkins is in need of Her Requested Prescriptions Pending Prescriptions Disp Refills ??? lansoprazole (PREVACID) 15 MG capsule 60 capsule 1 Sig: Take 1 (one) capsule to 2 (two) capsules by mouth once daily TO IMPROVE HEARTBURN SYMPTOMS Reasons: Gastroesophageal Reflux Disease ??? metoclopramide (REGLAN) 5 MG tablet 90 tablet 1 Sig: Take 1 (one) tablet by mouth 3 times daily before meals Reasons: Gastroesophageal Reflux Disease Person calling for the refill: Patient Last office visit 03/29/19 Next Appointment scheduled: 06/20/2021 Last Refill for this medication Patient has not picked up medications that were entered on 05/01/2021 Does patient have any new allergies since last office visit? No Was the pharmacy verified? Yes If this is a controlled substance was the Last 4 of SSN verified? NO (If unable to verify last 4 of SSN transfer to the clinic for further review) [id number] [address] [facility] [id number] MIKEY CMNEAL & ArturoA E MOVER documented in this encounter Plan of Treatment Upcoming Encounters Date Type Department Care Team (Late st Contact Info) Description 06/29/2024 10:00 AM CDT Office Visit [facility] - Internal Medicine [address] [facility] [address] [place] [address] Tamia Brooks MD [address] [facility] [address] [place] [address] documented as of this encounter Goals Goal Patient Goal Type Associated Problems Recent Progress Patient-Stated? Author Blood Pressure < 140/90 Blood Pressure 130/70( 024 1:19 PM CDT) Lola Serna MA documented as of this encounter Visit Diagnoses Not on filedocumented in this encounter Care Teams Onion Tier Relationship Specialty Start Date End Date Tamia Brooks MD [facility] [facility] [address] [place] [address] PCP - General Internal Medicine 07/26/16 Yohan Barros DPM [facility] [place] [address] [place] [address] Podiatry 05/24/13 documented as of this encounter
--- OUTSIDE RECORDS SUMMARY | 2024-03-22 20:11 | XMS_ITS | Encounter Summary ---
Author Organization [facility] Address [address] [facility] [place] [address] Care Team Providers Care Maintenance Millwright Name Role Phone Yohan Barros DPM Unavailable [phone] Tamia Brooks MD Primary Care Provider [phone] Tamia Brooks MD Unavailable [phone] Reason for Visit * Reason Comments Pain Epigastric Encounter Details Date Type Department Care Team (Latest Contact Info) Description 10/19/2020 7:45 AM CDT Video Visit [facility] Medical [facility] - GI [address] [place] [address] James Calix MD [address] [place] [address] Gastroesophageal reflux disease without esophagitis Social History [...] on file documented as of this encounter Patient Instructions * Patient Instructions* Lesley Montgomery - 10/19/2020 7:54 AM CDT During your visit, we noted a difference between the dose and/or dosing frequency of one of the following medication(s) documented in your record and the way you report that it is being taken. documented in this encounter Progress Notes * James Calix MD - 10/19/2020 8:22 AM CDT Gastroenterology Telemedicine Note Today's visit was conducted virtually due to COVID-19 countermeasures. The patient has given verbalconsent to have today's visit conducted by this same means with treatment provided remotely. The patient verbally consents to the billing and collection practices of [facility]. DEMOGRAPHICS: PATIENT: Maura Watkins : 1950 Admit Date: No admission date for patient encounter. Referring Physician: Tamia Brooks MD: SUBJECTIVE: Maura Watkins is 70 year old female being seen for gerd worsening Patient location: Home This encounter was performed using: audio Reason for not using video for visit: technical problems in using available video technology Time spent with patient/proxy: 11 minutes (between 10-20) PAST HISTORY: Past Medical History: Diagnosis Date ??? Anhydrotic [...] Types: Cigarettes Quit date: 03/10/1990 Years since quittin.6 ??? Smokeless tobacco: Never Used Substance and [...] Social Determinants of Health Financial Resource Strain: ??? Difficulty of Paying Living Expenses: Food Insecurity: ??? Worried About Running Out of Food in the Last Year: ??? Ran Out of Food in the Last Year: Transportation Needs: ??? Lack of Transportation (Medical): ??? Lack of Transportation (Non-Medical): Physical Activity: ??? Days of Exercise per Week: ??? Minutes of Exercise per Session: Stress: ??? Feeling of Stress : Social Connections: ??? Frequency of Communication with Friends and Family: ??? Frequency of Social Gatherings with Friends and Family: ??? Attends L[employer] Services: ??? Active Member of Clubs or Organizations: ??? Attends Club or Organization Meetings: ??? Marital Status: Intimate Partner Violence: ??? Fear of Current or Ex-Partner: ??? Emotionally Abused: ??? Physically Abused: ??? Sexually Abused: Family History Problem Relation Name Age of Onset ??? Heart Failure Mother ??? Lung Cancer Father smoker ??? Cancer - Colon Brother 55 2008 ??? Cancer - Breast Maternal Aunt 70 ALLERGIES: Allergies Allergen Reactions ??? Darvon Nausea and/or Vomiting and Dizziness MEDICATIONS: Maura Watkins has a current medication list which includes the following prescription(s): calcium, cetirizine hcl, vitamin d-3, dextromethorphan- guaifenesin, doxycycline hyclate, furosemide, glucosamine-chondroitin, lisinopril, metoclopramide, pantoprazole ec, rabeprazole ec, and rosuvastatin. REVIEW OF SYSTEMS: General ROS: alert oriented and cooperative Psychological ROS:appropriate Ophthalmic ROS: within normal limitis ENT ROS: patent airway Allergy and Immunology ROS:negative Hematological and Lymphatic ROS: No bleeding or bruising Endocrine ROS: negative Breast ROS: negative Respiratory ROS: negative, no cough, shortness of breath, or wheezing Cardiovascular ROS: negative,no chest pain or dyspnea on exertion Gastrointestinal ROS: gerd Genito-Urinary ROS: negative, no dysuria, trouble voiding, or hematuria Musculoskeletal ROS: negative Neurological ROS: negative,no TIA or stroke symptoms Dermatological ROS: negative PHYSICAL EXAM: There were no vitals taken for this visit. Physical Exam: Gen: Alert, oriented, no distress HEENT: Nc/at, perrl/eomi, OP clear Neck: No significant LAD, nonpalpable thyroid Lungs: CTA bilaterally CV: RRR, s1s2, no murmurs heard Abdomen: Soft, non tender, non distended, normal bowel sounds, no organomegaly Extremities: No edema LABS: Recent Labs Component Name 02/11/20 0800 10/19/18 1120 04/11/18 0000 09/26/17 0935 05/22/17 0835 09/26/16 0802 09/26/16 0802 SODIUM 144 143 142 147* 143 - 143 POTASSIUM 4.4 4.9 4.5 5.1 4.6 - 4.9 CHLORIDE 101 107* 104 105 102 - 101 CO2 24 19* 22 23 22 - 23 BUN 20 18 18 18 17 - 23 CREATININE 1.33* 1.18* - 1.27* 1.35* - 1.24* GLUCOSE 121* 96 113 123* 125* - 113* - = values in this interval not displayed. Recent Labs Component Name 02/11/20 0800 10/19/18 1120 04/17/17 0911 09/26/16 0802 07/13/14 0847 WBC 5.9 6.8 5.7 4.9 5.5 HGB 13.4 12.5 12.7 12.4 13.3 PLTCOUNT 289 281 302 312 300 MCV 88 86 89 85 88 Recent Labs Component Name 02/11/20 0800 10/19/18 1120 04/11/18 0000 09/26/16 0802 07/13/14 0847 08/28/13 0848 05/28/12 0849 05/28/12 0849 ALBUMIN 4.6 4.4 - 4.7 - 4.5 - 4.5 ALKPHOS 111 111 3.5 131* - 111 - 97 TBIL 0.3 <0.2 - 0.5 - 0.3 - 0.4 AST 16 19 - 22 24 22 - 18 ALT 19 16 - 19 18 15 - 17 - = values in this interval not displayed. No results for input(s): AMYLASE, LIPASE, FERRITIN, IRON in the last 80965 hours. Invalid input(s): SATURATION PERTINENT RADIOLOGY: ASSESSMENT: Maura Watkins is a 70 year old female with Encounter Diagnosis Name Primary? Gastroesophageal reflux disease without esophagitis Yes worsening on meds Wants to try another med PLAN: Orders Placed This Encounter ??? pantoprazole EC (PROTONIX) 40 MG tablet Anti reflux precautions I have discussed the above recommendations and their risks, benefits, and alternatives, with the patient and any family present, and all agreed with the plan. All questions were answered. James Calix M.D. [facility] office: [phone] Exchange: [phone] documented in this encounter Plan of Treatment Upcoming Encounters Date Type Department Care Team (Late st Contact Info) Description 06/29/2024 10:00 AM CDT Office Visit [facility] Medical [facility] - Internal Medicine [address] [place] [address] [place] [address] Tamia Brooks MD [address] [place] [phone] documented as of this encounter Goals Goal Patient Goal Type Associated Problems Recent Progress Patient-Stated? Author Blood Pressure < 140/90 Blood Pressure 130/70( 024 1:19 PM CDT) No Lola Neff MA documented as of this encounter Visit Diagnoses Diagnosis Gastroesophageal reflux disease without esophagitis- Primary Esophageal reflux documented in this encounter Care Teams Maintenance Millwright Relationship Specialty Start Date End Date Tamia Brooks MD [address] [facility] [address] [place] [address] PCP - General Internal Medicine 07/26/16 Tamia Brooks MD [address] [facility] [address] [place] [address] PCP - Attributed-MSSP 01/09/20 03/29/21 Yohan Barros DPM [facility] [address] [place] [address] Podiatry 05/24/13 documented as of this encounter
--- OUTSIDE RECORDS SUMMARY | 2024-03-22 20:11 | XMS_ITS | Encounter Summary ---
Author Organization [facility] Address [address] [facility] [place] [address] Care Team Providers Care Forestry Fire Aide Name Role Phone Yohan Barros DPM Unavailable Tamia Brooks MD Primary Care Provider [phone] Efrain Dunlap MD Unavailable Tamia Brooks MD Unavailable [phone] Encounter Details Date Type Department Care Team (Late Contact Info) Description 06/03/2020 Orders Only [facility] - COVID Vax [address] [place] [address] Carlos A Zafar MD [address] [facility] [address] [place] [address] Need for vaccination Social History Tobacco Use [...] 10:00 AM CDT Office Visit [facility] - Internal Medicine [address] [place] [address] [place] [address] [place] [address] [place] [address] [address] [place] [address] documented as of this encounter Goals Goal Patient Goal Type Associated Problems Recent Progress Patient-Stated? Author Blood Pressure < 140/90 Blood Pressure 130/70( 024 1:19 PM CDT) Lola Serna MA documented as of this encounter Visit Diagnoses Diagnosis Need for vaccination Need for prophylactic vaccination and inoculation against unspecified single disease documented in this encounter Care Teams Forestry Fire Aide Relationship Specialty Start Date End Date Tamia Brooks MD [address] [place] [address] PCP - General Internal Medicine 07/26/16 Tamia Brooks MD [address] [place] [address] PCP - Attributed-MSSP 01/09/20 03/29/21 Yohan Barros, DPM [address] [place] [phone] Podiatry 05/24/13 Efrain Dunlap MD [address] [place] [address] Orthopedic Surgery 01/06/19 08/29/20 documented as of this encounter
--- OUTSIDE RECORDS SUMMARY | 2024-03-22 20:11 | XMS_ITS | Encounter Summary ---
Author Organization [facility] Address [address] [facility] [place] [address] Care Team Providers Care Seed Cutter Name Role Phone Yohan Barros DPM Unavailable [phone] Tamia Brooks MD Primary Care Provider Efrain Dunlap MD Unavailable Tamia Brooks MD Unavailable [phone] Reason for Visit * Reason Comments Refill Request Encounter Details Date Type Department Care Team (Late st Contact Info) Description 01/20/2020 Refill [facility] Medical [facility] - Internal Medicine [address] [place] [address] Tamia Brooks MD [address] [place] [address] Refill Request Social History Tobacco Use [...] have Coronavirus / COVID-19? No / Unsure 01/11/2020 3:24 PM PAPER FINISHER documented as of this encounter Miscellaneous Notes * Telephone Encounter - Audra Dalal - 01/20/2020 3:32 PM CST INGRID 01/11/2020 NOV 07/19/2020 R FINISHER documented in this encounter Plan of Treatment Upcoming Encounters Date Type Department Care Team (Late st Contact Info) Description 06/29/2024 10:00 AM CDT Office Visit [facility] - Internal Medicine [address] [facility] [address] [place] [address] [place] [address] [place] [address] [place] [address] documented as of this encounter Goals Goal Patient Goal Type Associated Problems Recent Progress Patient-Stated? Author Blood Pressure < 140/90 Blood Pressure 130/70( 024 1:19 PM CDT) Lola Serna MA documented as of this encounter Visit Diagnoses Diagnosis Benign essential HTN Essential hypertension, benign documented in this encounter Care Teams Seed Cutter Relationship Specialty Start Date End Date Tamia Brooks MD [facility] [address] [place] [address] PCP - General Internal Medicine 07/26/16 Tamia Brooks MD [address] [facility] [address] [place] [address] PCP - Attributed-MSSP 01/09/20 03/29/21 Yohan Barros DPM [address] [place] [phone] Podiatry 05/24/13 Efrain Dunlap MD [address] [facility] [address] [place] [address] Orthopedic Surgery 01/06/19 08/29/20 documented as of this encounter
--- OUTSIDE RECORDS SUMMARY | 2024-03-22 20:11 | XMS_ITS | Encounter Summary ---
Author Organization [facility] Address [address] [facility] [place] [address] Care Team Providers Care Air Tester Name Role Phone Yohan Barros DPM Unavailable [phone] Tamia Brooks MD Primary Care Provider Efrain Dunlap MD Unavailable Tamia Brooks MD Unavailable [phone] Reason for Visit * Reason Comments Refill Request Encounter Details Date Type Department Care Team (Late st Contact Info) Description 07/11/2020 Refill [facility] Medical [facility] - Internal Medicine [facility] [address] Tamia Brooks MD [address] [place] [phone] Refill Request Social History Tobacco Use [...] encounter Miscellaneous Notes * Telephone Encounter - Tona Castaneda MA - 07/11/2020 2:49 PM CDT Last appt: 07/04/2020 Next appt: 08/03/2020 Number of cancel or no shows in the last 12 months: 1 Allergies have been reviewed. Correct pharmacy is populated. Please sign RX and close encounter. documented in this encounter Plan of Treatment Upcoming Encounters Date Type Department Care Team (Late st Contact Info) Description 06/29/2024 10:00 AM CDT Office Visit [facility] - Internal Medicine [address] [facility] [address] [place] [address] Tamia Brooks MD [address] [place] [phone] documented as of this encounter Goals Goal Patient Goal Type Associated Problems Recent Progress Patient-Stated? Author Blood Pressure < 140/90 Blood Pressure 130/70( 024 1:19 PM CDT) Lola Serna MA documented as of this encounter Visit Diagnoses Diagnosis Venous stasis dermatitis of both lower extremities Stage 3b chronic kidney disease (HCC) documented in this encounter Care Teams Air Tester Relationship Specialty Start Date End Date Tamia Brooks MD [address] [place] [phone] PCP - General Internal Medicine 07/26/16 Tamia Brooks MD [address] [place] [phone] PCP - Attributed-MSSP 01/09/20 03/29/21 Yohan Barros DPM [address] [place] [address] [place] [phone] Podiatry 05/24/13 Efrain Dunlap MD [address] [facility] [address] [place] [address] Orthopedic Surgery 01/06/19 08/29/20 documented as of this encounter
--- OUTSIDE RECORDS SUMMARY | 2024-03-22 20:11 | XMS_ITS | Encounter Summary ---
Author Organization [facility] Address [address] [facility] [place] [address] Care Team Providers Care I&C Technician Name Role Phone Yohan Barros DPM Unavailable [phone] Tamia Brooks MD Primary Care Provider [phone] Efrain Dunlap MD Unavailable Tamia Brooks MD Unavailable [phone] Encounter Details Date Type Department Care Team (Latest Contact Info) Description 07/07/2019 Travel Social History Tobacco Use Types Packs/Day [...] AM CDT documented as of this encounter Plan of Treatment Upcoming Encounters Date Type Department Care Team (Late st Contact Info) Description 06/29/2024 10:00 AM CDT Office Visit [facility] - Internal Medicine [address] [place] [phone] Tamia Brooks MD [address] [place] [address] [address] [place] [address] documented as of this encounter Goals Goal Patient Goal Type Associated Problems Recent Progress Patient-Stated? Author Blood Pressure < 140/90 Blood Pressure 130/70( 024 1:19 PM CDT) Lola Serna MA documented as of this encounter Visit Diagnoses Not on filedocumented in this encounter Care Teams I&C Technician Relationship Specialty Start Date End Date Tamia Brooks MD [address] [place] [address] PCP - General Internal Medicine 07/26/16 Tamia Brooks MD [address] [place] [address] PCP - Attributed-MSSP 04/10/19 12/08/19 Yohan Barrso DPM [address] [place] [phone] Podiatry 05/24/13 Efrain Dunlap MD [address] [place] [address] Orthopedic Surgery 01/06/19 08/29/20 documented as of this encounter
--- OUTSIDE RECORDS SUMMARY | 2024-03-22 20:11 | XMS_ITS | Encounter Summary ---
Author Organization [facility] Address [address] [place] [address] Care Team Providers Care Business Management Associate Name Role Phone Yohan Barros DPM Unavailable [phone] Tamia Brooks MD Primary Care Provider Tamia Brooks MD Unavailable [phone] Encounter Details Date Type Department Care Team (Latest Contact Info) Description 03/29/2021 1:10 PM LAND SURVEYOR MANAGER - 03/29/2021 11:59 PM [facility] Hospital Encounter [facility] Imaging Services [address] [place], [place] [id number] Tamia Brooks MD [address] [place] [address] Discharge Disposition: Home or Self Care Social [...] have Coronavirus / COVID-19? No / Unsure 03/07/2021 2:45 PM LAND SURVEYOR MANAGER documented as of this encounter Medications at Time of Discharge Medication Sig Dispensed Refills Start Date End Date calcium 600 MG tablet Take 2 (two) tablets by mouth daily with food Cetirizine HCl (ZYRTEC PO) Take by mouth nightly as needed Cholecalciferol (VITAMIN D-3) 1000 UNITS Take by mouth once daily glucosamine-chondroit in (GLUCOSAMINE CHONDR COMPLEX) 500-400 MG capsuleIndications:Pr ediabetes,Primary osteoarthritis of right hip Take 1 capsule by mouth once daily 30 capsule 5 05/13/2017 albuterol HFA (PROVENTIL; VENTOLIN; PROAIR) 108 (90 Base) MCG/ACT inhaler Inhale 2 (two) puffs by mouth every 6 hours as needed 18 g 03/29/2021 09/26/2021 Dextromethorphan-Guai fenesin (MUCINEX DM MAXIMUM STRENGTH PO) Take by mouth as needed 08/20/2022 famotidine (PEPCID) 20 MG tablet Take 1 (one) tablet by mouth 2 times daily 180 tablet 3 01/11/2021 09/26/2021 furosemide (LASIX) 20 MG tabletIndications:Toñito ous stasis dermatitis of both lower extremities,Stage 3b chronic kidney disease (HCC) TAKE 1 TABLET TWICE A DAY 180 tablet 1 07/11/2020 02/20/2022 lisinopril (PRINIVIL; ZESTRIL) 20 MG tabletIndications:José ign essential HTN TAKE 1 TABLET DAILY 90 tablet 01/24/2021 05/01/2021 metoclopramide (REGLAN) 5 MG tabletIndications:Gas troesophageal Reflux Disease Take 1 (one) tablet by mouth 3 times daily before meals Reasons: Gastroesophageal Reflux Disease 90 tablet 3 06/06/2020 04/12/2021 RABEprazole EC (ACIPHEX) 20 MG tabletIndications:Gas troesophageal reflux disease without esophagitis Take 1 (one) tablet by mouth 2 times daily 180 tablet 1 08/30/2020 04/12/2021 rosuvastatin (CRESTOR) 10 MG tabletIndications:Mix ed hyperlipidemia TAKE 1 TABLET ONCE DAILY FOR HIGH AMOUNT OF FATS IN THE BLOOD 90 tablet 02/14/2021 05/01/2021 documented as of this encounter Plan of Treatment Upcoming Encounters Date Type Department Care Team (Late st Contact Info) Description 06/29/2024 10:00 AM CDT Office Visit [facility] - Internal Medicine [address] [facility] [address] [place] [address] Tamia Brooks MD [address] [facility] [address] [place] [address] documented as of this encounter Goals Goal Patient Goal Type Associated Problems Recent Progress Patient-Stated? Author Blood Pressure < 140/90 Blood Pressure 130/70( 024 1:19 PM CDT) No Lola Neff MA documented as of this encounter Procedures Procedure Name Priority Date/Time Associated Diagnosis Comments XR CHEST 2VW Routine 03/29/2021 1:23 PM LAND SURVEYOR MANAGER Cough SOB (shortness of breath) documented in this encounter Results * XR CHEST 2VW (03/29/2021 1:23 PM LAND SURVEYOR MANAGER) Anatomical Region Laterality Modality Chest Radiographic Aimee ging 03/29/2021 1:45 PM LAND SURVEYOR MANAGER Narrative 03/29/2021 1:59 PM LAND SURVEYOR MANAGER CHEST 2 VIEW HISTORY: Cough and shortness [...] Tamia Brooks MD DIAGNOSTIC IMAGING O RDERABLES documented in this encounter Visit Diagnoses Diagnosis Cough SOB (shortness of breath) Shortness of breath documented in this encounter Care Teams Business Management Associate Relationship Specialty Start Date End Date Tamia Brooks MD [address] [place] [address] PCP - General Internal Medicine 07/26/16 Tamia Brooks MD [address] [place] [address] PCP - Attributed-MSSP 01/09/20 03/29/21 Yohan Barros, TAMMYM [address] [facility] [address] [place] [phone] Podiatry 05/24/13 documented as of this encounter
--- OUTSIDE RECORDS SUMMARY | 2024-03-22 20:11 | XMS_ITS | Encounter Summary ---
Author Organization [facility] Address [address] [facility] [place] [address] Care Team Providers Care Fried Cake Maker Name Role Phone Yohan Barros DPM Unavailable [phone] Tamia Brooks MD Primary Care Provider Reason for Visit * Reason Comments Refill Request Encounter Details Date Type Department Care Team (Late st Contact Info) Description 07/10/2021 Refill [facility] Medical [facility] - Internal Medicine [address] [facility] [address] [place] [phone] Tamia Brooks MD [address] [place] [phone] Refill Request Social History Tobacco Use [...] encounter Miscellaneous Notes * Telephone Encounter - Augusto Carrasco I - 07/11/2021 9:58 AM CDT Refill Rx Crestor 10 mg tab Last refill:05/01/21 #90 x1 Last appt: 03/29/21 Next appt: 02/20/22 Number of cancel or no shows in the last 12 months: 2 Allergies have been reviewed. Correct pharmacy is populated. Please sign RX and close encounter. documented in this encounter Plan of Treatment Upcoming Encounters Date Type Department Care Team (Late st Contact Info) Description 06/29/2024 10:00 AM CDT Office Visit [facility] Medical [facility] - Internal Medicine [address] [facility] [address] [place] [phone] Tamia Brooks MD [address] [place] [phone] documented as of this encounter Goals Goal Patient Goal Type Associated Problems Recent Progress Patient-Stated? Author Blood Pressure < 140/90 Blood Pressure 130/70( 024 1:19 PM CDT) Lola Serna MA documented as of this encounter Visit Diagnoses Diagnosis Mixed hyperlipidemia documented in this encounter Care Teams Fried Cake Maker Relationship Specialty Start Date End Date Tamia Brooks MD [address] [place] [phone] PCP - General Internal Medicine 07/26/16 Yohan Barros DPM [address] [place] [address] [place] [phone] Podiatry 05/24/13 documented as of this encounter
--- OUTSIDE RECORDS SUMMARY | 2024-03-22 20:11 | XMS_ITS | Encounter Summary ---
Author Organization [facility] Address [address] [facility] [place] [address] Care Team Providers Care Cloth Bleaching Range Tender Name Role Phone Yohan Barros DPM Unavailable [phone] Tamia Brooks MD Primary Care Provider Reason for Visit * Reason Onset Date Comments Imaging 09/21/2021 Encounter Details Date Type Department Care Team (Late st Contact Info) Description 09/21/2021 Telephone [facility] Medical [facility] - Internal Medicine [address] [facility] [address] [place] [address] Tamia Brooks MD [address] [place] [address] [address] [place] [address] Imaging Social History Tobacco Use Types Packs/Day Years [...] encounter Miscellaneous Notes * Telephone Encounter - Diamante Watson - 09/22/2021 7:47 AM CDT Faxed xray order to correct fax location per patient. [facility] F: [phone]. Confirmation received. * Telephone Encounter - Jada Sharpe - 09/21/2021 4:00 PM CDT Patient is calling to provide correct fax number for [facility] to Shaina. It should be for [facility] instead of [facility] with correct Fax number of [phone]. Please have orders faxed to correct office/fax#. * Telephone Encounter - Shaina Ledezma, RN - 09/21/2021 3:50 PM CDT Patient informed that Cervical x-ray orders have been faxed to [facility] at fax number [phone]. Fax confirmation has been received. Patient verbalized understanding. documented in this encounter Plan of Treatment Upcoming Encounters Date Type Department Care Team (Late st Contact Info) Description 06/29/2024 10:00 AM CDT Office Visit [facility] - Internal Medicine [address] [place] [address] [place] [phone] Tamia Brooks MD [address] [place] [phone] documented as of this encounter Goals Goal Patient Goal Type Associated Problems Recent Progress Patient-Stated? Author Blood Pressure < 140/90 Blood Pressure 130/70( 024 1:19 PM CDT) No Lola Neff MA documented as of this encounter Visit Diagnoses Not on filedocumented in this encounter Care Teams Cloth Bleaching Range Tender Relationship Specialty Start Date End Date Tamia Brooks MD [address] [facility] [address] [place] [address] PCP - General Internal Medicine 07/26/16 Yohan Barros DPM [address] [facility] [address] [place] [address] Podiatry 05/24/13 documented as of this encounter
--- OUTSIDE RECORDS SUMMARY | 2024-03-22 20:11 | XMS_ITS | Encounter Summary ---
Author Organization [facility] Address [address] [facility] [place] [address] Care Team Providers Care Supplemental Manager Name Role Phone Yohan Barros DPM Unavailable [phone] Tamia Brooks MD Primary Care Provider [phone] Efrain Dunlap MD Unavailable Tamia Brooks MD Unavailable [phone] Encounter Details Date Type Department Care Team (Latest Contact Info) Description 10/01/2019 Travel Social History Tobacco Use Types Packs/Day [...] PM CDT documented as of this encounter Plan of Treatment Upcoming Encounters Date Type Department Care Team (Late st Contact Info) Description 06/29/2024 10:00 AM CDT Office Visit [facility] - Internal Medicine [address] [place] [phone] Tamia Brooks MD [address] [place] [address] [address] [place] [phone] documented as of this encounter Goals Goal Patient Goal Type Associated Problems Recent Progress Patient-Stated? Author Blood Pressure < 140/90 Blood Pressure 130/70( 024 1:19 PM CDT) Lola Serna MA documented as of this encounter Visit Diagnoses Not on filedocumented in this encounter Additional Health Concerns Infection Onset Date Last Indicated Resolved Time COVID-19 Under Investigation 10/01/2019 10/01/2019 10/02/2019 12:35 PM CDT documented as of this encounter Care Teams Supplemental Manager Relationship Specialty Start Date End Date Tamia Brooks MD [address] [place] [phone] PCP - General Internal Medicine 07/26/16 Tamia Brooks MD [address] [place] [address] PCP - Attributed-MSSP 04/10/19 12/08/19 Yohan Barros, DPM [facility] [address] [phone] Podiatry 05/24/13 Efrain Dunlap MD [address] [place] [phone] Orthopedic Surgery 01/06/19 08/29/20 documented as of this encounter
--- OUTSIDE RECORDS SUMMARY | 2024-03-22 20:11 | XMS_ITS | Encounter Summary ---
Author Organization [facility] Address [address] [facility] [place] [address] Care Team Providers Care Microsoft Bi Architect Name Role Phone Yohan Barros DPM Unavailable [phone] Tamia Brooks MD Primary Care Provider Reason for Visit * Reason Onset Date Comments Erroneous encounter-disregard 09/21/2021 Encounter Details Date Type Department Care Team (Late st Contact Info) Description 09/21/2021 Telephone [facility] Medical [facility] - Internal Medicine [address] [facility] [address] [place] [address] Tamia Brooks MD [address] [place] [address] [address] [place] [address] Erroneous encounter-disregard Social History Tobacco Use Types Packs/Day Years Used Date Smoking Tobacco: Former Cigarettes 0.2 12 0 03/10/1978 - 03/10/1990 Smokeless Tobacco: Never Alcohol Use Standard Drinks/Week Comments Yes 0 (1 standard drink = 0.6 oz pur e alcohol) occ PHQ-2 Answer Date Recorded PHQ2 TOTAL SCORE 1 09/26/2021 Sex and Gender Information Value Date Recorded [...] 06/29/2024 10:00 AM CDT Office Visit [facility] Medical [facility] - Internal Medicine [address] [facility] [address] [place] [address] [place] [address] [place] [phone] documented as of this encounter Goals Goal Patient Goal Type Associated Problems Recent Progress Patient-Stated? Author Blood Pressure < 140/90 Blood Pressure 130/70( 024 1:19 PM CDT) Lola Serna MA documented as of this encounter Visit Diagnoses Not on filedocumented in this encounter Care Teams Microsoft Bi Architect Relationship Specialty Start Date End Date Tamia Brooks MD [facility] [phone] PCP - General Internal Medicine 07/26/16 Yohan Barros DPM [facility] [place] [address] [place] [phone] Podiatry 05/24/13 documented as of this encounter
--- OUTSIDE RECORDS SUMMARY | 2024-03-22 20:11 | XMS_ITS | Encounter Summary ---
Author Organization [facility] Address [address] [place] [address] Care Team Providers Care Pediatric Clinical Dietician Name Role Phone Yohan Barros DPM Unavailable Tamia Brooks MD Primary Care Provider Reason for Visit * Reason Comments Consultation * Evaluate & Treat - Closed Specialty Diagnoses / Procedures Referred By Contac t Referred To Contact Neuroscience Diagnoses DDD (degenerative disc disease), cervical Cervical radiculopathy Cervical spinal stenosis Tamia Brooks MD [address] [facility] [address] [place] [address] [place] [address] [place] [phone] Referral ID Status Reason Start Date Expiration Date V isits Requested Visits Authorized [id number] Closed Specialty Services Required 10/09/2021 10/09/2022 1 1 Encounter Details Date Type Department Care Team (Late st Contact Info) Description 10/29/2021 12:00 PM CDT Office Visit [facility] Neurosciences [address] [place], [place] [phone] Tamia Brooks MD [address] [place] [address] Jose Cotter DO [address] [place] [phone] Neuroforaminal stenosis of cervical spine (Primary Dx); DDD (degenerative disc disease), cervical; Cervical radiculopathy; Cervical spinal stenosis Social History Tobacco Use Types Packs/Day Years [...] Sign Reading Time Taken Comments Blood Pressure 141/90 10/29/2021 11:41 AM CDT Pulse 76 10/29/2021 11:41 AM CDT Temperature - - Respiratory Rate - - Oxygen Saturation - - Inhaled Oxygen Concentration - - Weight 92.1 kg (203 lb) 10/29/2021 11:41 AM CDT Height 165.1 cm (5' 5 ) 10/29/2021 11:41 AM CDT Body Mass Index 33.78 10/29/2021 11:41 AM CDT documented in this encounter Progress Notes * Jose Cotter, - 10/29/2021 12:39 PM CDT Neurosurgery Office Note HPI/CC: This is a very pleasant 71 year old female who is here for neurosurgical consultation. She was welluntil about 2 months ago when she woke up with right- sided neck pain and radiating pain into the shoulder blade as well as down the right arm, all the way into the thumb. She has done physical therapy, but tells me that PT actually makes things worse. Massage does make things somewhat better. She does not have any pain on the left side of her neck or down her left arm. She presents here to discuss treatment options. Physical Exam: Body mass index is 33.78 kg/m??. Vitals: 10/29/21 1141 BP: 141/90 Pulse: 76 Weight: 92.1 kg (203 lb) Height: 1.651 m (5' 5 ) Constitutional: Pleasant and cooperative for examination. Well nourished, atraumatic Psychiatric: Mood and demeanor are appropriate Eyes: Extra-occular movement is intact Musculoskeletal: Motor is full in 4 extremities Neuro: Alert and oriented to time, place, and person CN 2-12 gi Speech fluent Sensation is intact to light touch throughout Reflexes are symmetrical No Hoffmans or clonus noted Gait: Normal gait Personal and Independent Review of Imaging: MRI cervical spine: Extensive degenerative disc disease throughout the cervical spine which is worse at C4-5 and C5-6. At these 2 levels, moderate to severe bilateral neuroforaminal stenosis seen. AtC3-4 and C6-7, [id number] neuroforaminal stenosis seen. Assessment/Plan: Neuroforaminal stenosis, cervical. Degenerative disease, cervical We had an extensive discussion regarding the imaging and what it means in terms of the clinical picture. We went over the available imaging together in the office as I educated the patient and demonstrated where the problem area is. Explained to her that she may very well have pain stemming from neuroforaminal stenosis of her cervical spine. In particular C4-5 and C5-6 seem to match anatomic leave where her pain distribution is. We discussed a referral to interventional pain management to undergo a diagnostic and therapeutic C5, C6 selective nerve root blocks on the right side. Additionally, we will get an EMG of upper extremities. We discussed that should the injections helped her symptomsbut the relief does not last, it would be reasonable to explore a 2 level ACDF moving forward. We went over pros and cons of the injections and briefly discussed potential surgery. She has other areas of pain lowered her thoracic region which I do not feel are related to her cervical spine MRI. ROS: A 11 point review of systems including ENMT, cardiac, respiratory, GI,, integ, hem/onc, endocrine, psych,musculoskeletal, neurological has been performed and is negative except for pertinent positives as noted in the HPI above. Past Medical History: Diagnosis Date ??? Anhydrotic dermatitis of foot 04/27/12 04/27/2012 ??? Adductor tendonitis, right thigh 04/27/12 04/27/2012 ??? Allergic rhinitis 09/20/2008 ??? Cataract 12/07/2013 ??? Herpes zoster 04/12/2010 ??? Hyperlipidemia 09/20/2008 ??? Hypertension 09/20/2008 ??? Insulin resistance 10/27/2012 ??? Primary osteoarthritis of both knees 10/27/2012 ??? UTI Social History Socioeconomic History ??? Marital status: Spouse name: Not on file ??? Number of children: 0 ??? Years of education: 13+ ??? Highest education level: Not on file Occupational History ??? Not on file Tobacco Use ??? Smoking status: Former Smoker Packs/day: 0.20 Years: 12.00 Pack years: 2.40 Types: Cigarettes Quit date: 03/10/1990 Years since quittin.6 ??? Smokeless tobacco: Never Used Vaping Use ??? Vaping Use: Never used [...] ??? Cancer - Breast Maternal Aunt 68 Total time (both face to face and non-face to face) personally spent by me was at least 1 hour on the date of the encounter. The time spent included components such as preparing for the visit, reviewing tests and imaging, obtaining history, performing an exam, counseling and educating, ordering tests and procedures, communicating with other health critical care educator, and documenting in the electronic health medical record. documented in this encounter Plan of Treatment Upcoming Encounters Date Type Department Care Team (Late st Contact Info) Description 06/29/2024 10:00 AM CDT Office Visit [facility] - Internal Medicine [address] [place] [phone] Tamia Brooks MD [address] [place] [phone] documented as of this encounter Goals Goal Patient Goal Type Associated Problems Recent Progress Patient-Stated? Author Blood Pressure < 140/90 Blood Pressure 130/70( 024 1:19 PM CDT) Lola Serna MA documented as of this encounter Visit Diagnoses Diagnosis Neuroforaminal stenosis of cervical spine- Primary DDD (degenerative disc disease), cervical Degeneration of cervical intervertebral disc Cervical radiculopathy Brachial neuritis or radiculitis nos Cervical spinal stenosis Spinal stenosis in cervical region documented in this encounter Care Teams Pediatric Clinical Dietician Relationship Specialty Start Date End Date Tamia Brooks MD [address] [place] [phone] PCP - General Internal Medicine 07/26/16 Yohan Barros DPM [address] [place] [address] [place] [phone] Podiatry 05/24/13 documented as of this encounter
--- OUTSIDE RECORDS SUMMARY | 2024-03-22 20:11 | XMS_ITS | Encounter Summary ---
Author Organization [facility] Address [address] [facility] [place] [address] Care Team Providers Care Reinforcing Steel Machine Operator Name Role Phone Yohan Barros DPM Unavailable [phone] Tamia Brooks MD Primary Care Provider [phone] Efrain Dunlap MD Unavailable Reason for Visit * Reason Comments Refill Request Encounter Details Date Type Department Care Team (Late st Contact Info) Description 01/30/2019 Refill [facility] Medical [facility] - Internal Medicine [address] [place] [address] [place] [phone] Tamia Brooks MD [address] [place] [phone] Refill Request Social History Tobacco Use [...] encounter Miscellaneous Notes * Telephone Encounter - Audelia Dash - 02/01/2019 2:06 PM CST Last appt: 01/06/2019 Next appt: 07/07/2019 Number of cancel or no shows in the last 12 months: 0 Allergies have been reviewed. Correct pharmacy is populated. Please sign RX and close encounter. ICAL RESOURCE DIRECTOR documented in this encounter Plan of Treatment Upcoming Encounters Date Type Department Care Team (Late st Contact Info) Description 06/29/2024 10:00 AM CDT Office Visit [facility] - Internal Medicine [address] [facility] [address] [place] [address] Tamia Brooks MD [address] [place] [phone] documented as of this encounter Goals Goal Patient Goal Type Associated Problems Recent Progress Patient-Stated? Author Blood Pressure < 140/90 Blood Pressure 130/70( 024 1:19 PM CDT) Lola Serna MA documented as of this encounter Visit Diagnoses Diagnosis Venous stasis dermatitis of both lower extremities CKD (chronic kidney disease) stage 3, GFR 30-59 ml/min (HCC) Chronic kidney disease, Stage III (moderate) documented in this encounter Care Teams Reinforcing Steel Machine Operator Relationship Specialty Start Date End Date Tamia Brooks MD [address] [place] [phone] PCP - General Internal Medicine 07/26/16 Yohan Barros DPM [facility] [address] [phone] Podiatry 05/24/13 Efrain Dunlap MD [address] [place] [phone] Orthopedic Surgery 01/06/19 08/29/20 documented as of this encounter
--- OUTSIDE RECORDS SUMMARY | 2024-03-22 20:11 | XMS_ITS | Encounter Summary ---
Author Organization [facility] Address [address] [place] [address] Care Team Providers Care Compression Molding Machine Tender Name Role Phone Yohan Barros DPM Unavailable [phone] Tamia Brooks MD Primary Care Provider [phone] Encounter Details Date Type Department Care Team (Late st Contact Info) Description 09/26/2021 Orders Only [facility] Medical [facility] - Internal Medicine [address] [facility] [address] [place], [place] [id number] Tamia Brooks MD [address] [place] [address] [address] [place] [address] Cervical radiculitis Social History Tobacco Use Types Packs/Day Years [...] 10:00 AM CDT Office Visit [facility] Medical [facility] - Internal Medicine [address] [facility] [address] [place] [address] Tamia Brooks MD [address] [facility] [address] [place] [address] documented as of this encounter Goals Goal Patient Goal Type Associated Problems Recent Progress Patient-Stated? Author Blood Pressure < 140/90 Blood Pressure 130/70( 024 1:19 PM CDT) No Lola Neff MA documented as of this encounter Procedures Procedure Name Priority Date/Time Associated Diagnosis Comments XR CERVICAL SPINE 2 OR 3VW Routine 09/21/2021 Cervical radiculitis documented in this encounter Results * XR CERVICAL SPINE 2 OR 3VW (09/21/2021) Anatomical Region Laterality Modality Spine Other 09/21/2021 Tamia Brooks MD DIAGNOSTIC IMAGING O RDERABLES documented in this encounter Visit Diagnoses Diagnosis Cervical radiculitis Brachial neuritis or radiculitis nos documented in this encounter Care Teams Compression Molding Machine Tender Relationship Specialty Start Date End Date Tamia Brooks MD [address] [facility] [address] [place] [address] PCP - General Internal Medicine 07/26/16 Yohan Barros, ZOYA [address] [facility] [address] [place] [phone] Podiatry 05/24/13 documented as of this encounter
--- OUTSIDE RECORDS SUMMARY | 2024-03-22 20:11 | XMS_ITS | Encounter Summary ---
Author Organization [facility] Address [address] [place] [address] Care Team Providers Care Job Placement Counselor Name Role Phone Yohan Barros DPM Unavailable [phone] Tamia Brooks MD Primary Care Provider [phone] Efrain Dunlap MD Unavailable Tamia Brooks MD Unavailable [phone] Reason for Visit * Reason Onset Date Comments Chest Pain 07/22/2019 Encounter Details Date Type Department Care Team (Late st Contact Info) Description 07/22/2019 Telephone [facility] Medical [facility] - Internal Medicine [address] [facility] [address] [place] [address] Tamia Brooks MD [address] [place] [address] Chest Pain Social History Tobacco Use Types Packs/Day Years [...] Telephone Encounter - April Pandya RN - 07/22/2019 3:34 PM CDT Pt advised of new meds/pharmacy. Will call back for no improvement * Telephone Encounter - Tamia Brooks MD - 07/22/2019 1:09 PM CDT Start flonase daily. Hold if pain or bleeding. Add singulair at bedtime. Call back if sxs worsen or no improvement by 1 month. Orders Placed This Encounter ??? montelukast (SINGULAIR) 10 MG tablet Sig: Take 1 tablet by mouth at bedtime Dispense: 30 tablet Refill: 5 ??? fluticasone propionate (FLONASE) 50 MCG/ACT nasal spray Sig: [place] 2 sprays into each nostril once daily Dispense: 16 g Refill: 0 * Telephone Encounter - April Pandya RN - 07/22/2019 11:23 AM CDT Called pt, she has a dry cough. Does feel some PND/tickle. Back of throat has a constant tickle. Pain/ chest discomfort is at mid sternal, top of breastline. Ears/back of throat itching, eyes are watering. Cough is random most times, although can be bad at night when she lays. Pt does not have a nasal spray. * Telephone Encounter - Audra Bernal - 07/22/2019 10:11 AM CDT Pt had pneumonia and followed up with [facility] in May. Pt still has some cough and discomfort in her chest. I did reorder her inhaler but felt nurse should speak to her as this is going on 2 months. documented in this encounter Plan of Treatment Upcoming Encounters Date Type Department Care Team (Late st Contact Info) Description 06/29/2024 10:00 AM CDT Office Visit [facility] - Internal Medicine [address] [facility] [address] [place] [address] Tamia Brooks MD [address] [facility] [address] [place] [address] documented as of this encounter Goals Goal Patient Goal Type Associated Problems Recent Progress Patient-Stated? Author Blood Pressure < 140/90 Blood Pressure 130/70( 024 1:19 PM CDT) Lola Serna MA documented as of this encounter Visit Diagnoses Not on filedocumented in this encounter Care Teams Job Placement Counselor Relationship Specialty Start Date End Date Tamia Brooks MD [facility]5 [facility] [address] [place] [address] PCP - General Internal Medicine 07/26/16 Tamia Brooks MD [facility]5 [facility] [address] [place] [address] PCP - Attributed-MSSP 04/10/19 12/08/19 Yohan Barros DPM [address] [place] [phone] Podiatry 05/24/13 Efrain Dunlap MD [facility]5 [facility] [address] [place] [address] Orthopedic Surgery 01/06/19 08/29/20 documented as of this encounter
--- OUTSIDE RECORDS SUMMARY | 2024-03-22 20:11 | XMS_ITS | Encounter Summary ---
Author Organization [facility] Address [address] [facility] [place] [address] Care Team Providers Care Corporate Representative Name Role Phone Yohan Barros DPM Unavailable [phone] Tamia Brooks MD Primary Care Provider [phone] Efrain Dunlap MD Unavailable Tamia Brooks MD Unavailable [phone] Renu Del Real RN Unavailable [phone] Reason for Visit * Reason Onset Date Comments Covid-19 Home Management 10/06/2019 Encounter Details Date Type Department Care Team (Late st Contact Info) Description 10/06/2019 Patient Outreach [facility] - Internal Medicine [address] [address] Renu Del Real, RN [address] [address] Covid-19 Home Management Social History Tobacco Use Types Packs/Day Years [...] encounter Miscellaneous Notes * Telephone Encounter - Renu Del Real RN - 10/06/2019 4:53 PM CDT Spoke with Maura Watkins via phone. Patient has the following symptoms to report: productive cough,body aches, fatigue and headache. States sputum is clear. Patient denies ever having a fever and no longer checking oral temperatures. Patient managing current symptoms with OTC medications, drinking fluids, frequent rest and prescription inhalers Reviewed all current home isolation precautions from the CDC with the patient. Education given regarding managing worsening symptoms. Instructed the patient to immediately seek medical attention if any of the following symptoms were to develop: trouble breathing, persistent pain or pressure in the chest, new confusion or inability to arouse, bluish lips or face. Discussed with the patient and agreed that there is no need for future telephonic care management contacts at this time. documented in this encounter Plan of Treatment Upcoming Encounters Date Type Department Care Team (Late st Contact Info) Description 06/29/2024 10:00 AM CDT Office Visit [facility] Medical [facility] - Internal Medicine [address] [place] [address] Tamia Brooks MD [address] [place] [address] documented as of this encounter Goals Goal Patient Goal Type Associated Problems Recent Progress Patient-Stated? Author Blood Pressure < 140/90 Blood Pressure 130/70( 024 1:19 PM CDT) No Lola Neff MA documented as of this encounter Visit Diagnoses Not on filedocumented in this encounter Additional Health Concerns Infection Onset Date Last Indicated Resolved Time COVID-19 Confirmed 10/01/2019 10/01/2019 0 4:34 AM CDT documented as of this encounter Care Teams Corporate Representative Relationship Specialty Start Date End Date Tamia Brooks MD [address] [place] [address] [place] [phone] PCP - General Internal Medicine 07/26/16 Tamia Brooks MD [address] [place] [phone] PCP - Attributed-MSSP 04/10/19 12/08/19 Yohan Barros, DPM [address] [facility] [address] [place] [phone] Podiatry 05/24/13 Efrain Dunlap MD [address] [facility] [address] [place] [address] Orthopedic Surgery 01/06/19 08/29/20 Renu Del Real, RN [address] [facility] [address] [place] [address] Leather CleanerBeauty Counselor 10/05/19 10/06/19 documented as of this encounter
--- OUTSIDE RECORDS SUMMARY | 2024-03-22 20:11 | XMS_ITS | Encounter Summary ---
Author Organization [facility] Address [address] [facility] [address] Care Team Providers Care Health Coach Name Role Phone Yohan Barros DPM Unavailable [phone] Tamia Brooks MD Primary Care Provider Encounter Details Date Type Department Care Team (Late Contact Info) Description 12/11/2018 Orders Only [facility] [address] [place] [address] Document, Scanned Social History Tobacco Use Types Packs/Day Years [...] Description 06/29/2024 10:00 AM CDT Office Visit [facility] Medical [facility] - Internal Medicine [facility]5 [facility] [address] [place] [address] Tamia Brooks MD [address] [place] [address] documented as of this encounter Goals Goal Patient Goal Type Associated Problems Recent Progress Patient-Stated? Author Blood Pressure < 140/90 Blood Pressure 130/70( 024 1:19 PM CDT) No Lola Neff MA documented as of this encounter Procedures Procedure Name Priority Date/Time Associated Diagnosis Comments DIABETES EYE EXAM Routine 12/07/2018 documented in this encounter Results * DIABETES EYE EXAM (12/07/2018) Scanned Document HEALTH MAINTENANCE documented in this encounter Visit Diagnoses Not on filedocumented in this encounter Care Teams Health Coach Relationship Specialty Start Date End Date Tamia Brooks MD [address] [facility] [address] [place] [address] PCP - General Internal Medicine 07/26/16 Yohan Barros DPM [address] [facility] [address] [place] [address] Podiatry 05/24/13 documented as of this encounter
--- OUTSIDE RECORDS SUMMARY | 2024-03-22 20:11 | XMS_ITS | Encounter Summary ---
Author Organization [facility] Address [address] [facility] [place] [address] Care Team Providers Care General Studies Program Chair Name Role Phone Yohan Barros DPM Unavailable [phone] Tamia Brooks MD Primary Care Provider [phone] Tamia Brooks MD Unavailable [phone] Reason for Visit * Reason Onset Date Comments Cough 03/28/2021 Breathing Problem 03/28/2021 Encounter Details Date Type Department Care Team (Late st Contact Info) Description 03/28/2021 Telephone [facility] Medical [facility] - Internal Medicine [address] [address] Tamia Brooks MD [address] [place] [address] Cough; Breathing Problem Social History Tobacco Use Types Packs/Day Years [...] COVID-19? No / Unsure 03/07/2021 2:45 PM TRAFFIC REPORTER documented as of this encounter Miscellaneous Notes * Telephone Encounter - Natasha Vazquez LPN - 03/28/2021 3:45 PM TRAFFIC REPORTER Orders Placed This Encounter ??? XR CHEST 2VW Standing Status: Future Standing Expiration Date: 03/28/2022 Order Specific Question: Release to patient Answer: Immediate CXR ordered with results to go to Dr Cooper for review prior to appt Pt advised FIC REPORTER * Telephone Encounter - Kishore Rene MD - 03/28/2021 3:39 PM CST Agree. Can get CXR prior to visit. FIC REPORTER * Telephone Encounter - Natasha Vazquez LPN - 03/28/2021 2:53 PM TRAFFIC REPORTER Seen at [facility] in [place] 2 weeks ago - was dx with URI and treated with abx, Tessalon and Prednisone. Flu and covid swabs were negative. Today she reports mild improvement in her sxs. She continues to have sore throat and productive cough with clear secretions. She notes anterior chest wall pain with cough and forced breathing. no wheezing noted, positive for HERBERT - she can speak in full sentences. No fever or chills Tentatively scheduled tomorrow with Dr Cooper at 2 pm Please advise FIC REPORTER * Telephone Encounter - Dameon Arnold RN - 03/28/2021 1:11 PM TRAFFIC REPORTER crime investigator special agent attempted warm transfer. Clinical staff not available at time of call. Patient calling stating had a respiratory infection and was seen at urgent care. And prescribed Doxycycline for 10 days, (completed a week ago) Was also on a Prednisone dose pack, and Tessalon Pearls. Also has a Albuterol and using it twice a day. And that is almost out. Would like to have albuterol refilled. Currently still having cough, and a little shortness of breath. Shortness of breath is with activity and with talking. Also having chest discomfort with cough. COVID Screeing: Cough: yes, is clear productive Shortness of breath: yes Fever: Denies Nasal Symptoms: yes, clear Sore Throat:yes, and hoarsness Body Aches/chills: Denies Headache: Denies Change of taste or smell: Denies Exposure to COVID: Denies Plan: Message sent to PCP Patient is in agreement with plan. Please call patient back at [phone] Thank you FIC REPORTER documented in this encounter Plan of Treatment Upcoming Encounters Date Type Department Care Team (Late st Contact Info) Description 06/29/2024 10:00 AM CDT Office Visit [facility] - Internal Medicine [address] [place] [address] Tamia Brooks MD [address] [place] [address] documented as of this encounter Goals Goal Patient Goal Type Associated Problems Recent Progress Patient-Stated? Author Blood Pressure < 140/90 Blood Pressure 130/70( 024 1:19 PM CDT) No Lola Neff MA documented as of this encounter Results * XR CHEST 2VW (03/29/2021 1:23 PM TRAFFIC REPORTER) Anatomical Region Laterality Modality Chest Radiographic Aimee ging 03/29/2021 1:45 PM TRAFFIC REPORTER Narrative 03/29/2021 1:59 PM TRAFFIC REPORTER CHEST 2 VIEW HISTORY: Cough and shortness [...] documented in this encounter Visit Diagnoses Diagnosis Cough- Primary SOB (shortness of breath) Shortness of breath Cough SOB (shortness of breath) Shortness of breath documented in this encounter Care Teams General Studies Program Chair Relationship Specialty Start Date End Date Tamia Brooks MD [address] [place] [phone] PCP - General Internal Medicine 07/26/16 Tamia Brooks MD [address] [place] [address] PCP - Attributed-MSSP 01/09/20 03/29/21 Yohan Barros DPM 1011 [facility] [address] [place] [phone] Podiatry 05/24/13 documented as of this encounter
--- OUTSIDE RECORDS SUMMARY | 2024-03-22 20:11 | XMS_ITS | Encounter Summary ---
Author Organization [facility] Address [address] [place] [address] Care Team Providers Care Slip Cover Seamstress Name Role Phone Yohan Barros DPM Unavailable [phone] Tamia Brooks MD Primary Care Provider [phone] Efrain Dunlap MD Unavailable Tamia Brooks MD Unavailable [phone] Reason for Visit * Reason Onset Date Comments Medication Issue 06/08/2020 Encounter Details Date Type Department Care Team (Late st Contact Info) Description 06/08/2020 Telephone [facility] Medical [facility] - Internal Medicine [address] [facility] [address] [place] [address] Tamia Brooks MD [address] [place] [address] Medication Issue Social History Tobacco Use [...] Telephone Encounter - April Pandya RN - 06/08/2020 10:31 AM CDT advised. * Telephone Encounter - Tamia Brooks MD - 06/08/2020 10:04 AM CDT That's fine. No more nexium today. Can restart 1 tab BID tomorrow. Tamia Brooks MD 06/08/2020 10:04 AM * Telephone Encounter - April Pandya RN - 06/08/2020 9:14 AM CDT Pt accidentally took two nexium this am. called to report this. documented in this encounter Plan of Treatment Upcoming Encounters Date Type Department Care Team (Late st Contact Info) Description 06/29/2024 10:00 AM CDT Office Visit [facility] Medical [facility] - Internal Medicine [address] [place] [address] Tamia Brooks MD [address] [place] [address] documented as of this encounter Goals Goal Patient Goal Type Associated Problems Recent Progress Patient-Stated? Author Blood Pressure < 140/90 Blood Pressure 130/70( 024 1:19 PM CDT) No Lola Neff MA documented as of this encounter Visit Diagnoses Not on filedocumented in this encounter Care Teams Slip Cover Seamstress Relationship Specialty Start Date End Date Tamia Brooks MD [address] [place] [address] PCP - General Internal Medicine 07/26/16 Tamia Brooks MD [address] [place] [phone] PCP - Attributed-MSSP 01/09/20 03/29/21 Yohan Barros DPM [address] [facility] [address] [place] [phone] Podiatry 05/24/13 Efrain Dunlap MD [address] [place] [address] Orthopedic Surgery 01/06/19 08/29/20 documented as of this encounter
--- OUTSIDE RECORDS SUMMARY | 2024-03-22 20:11 | XMS_ITS | Encounter Summary ---
Author Organization [facility] Address [address] [facility] [place] [address] Care Team Providers Care Education Dean Name Role Phone Yohan Barros DPM Unavailable [phone] Tamia Brooks MD Primary Care Provider Efrain Dunlap MD Unavailable Reason for Referral * Radiology Services (Routine) - Closed Specialty Diagnoses / Procedures Referred By Contac t Referred To Contact Bone Densitometry Diagnoses Asymptomatic menopausal state Osteopenia, unspecified location Procedures DEXA BONE DENSITY AXIAL SKELETON Tamia Brooks MD [address] [employer] [address] [place] [phone] Referral ID Status Reason Start Date Expiration Date Visits Re quested Visits Authorized [id number] Closed 01/06/2019 07/05/2019 1 1 INTERPRETER Reason for Visit * Radiology Services (Routine) - Closed Specialty Diagnoses / Procedures Referred By Contac t Referred To Contact Bone Densitometry Diagnoses Asymptomatic menopausal state Osteopenia, unspecified location Procedures DEXA BONE DENSITY AXIAL SKELETON Tamia Brooks MD [address] [employer] [address] [place] [address] Referral ID Status Reason Start Date Expiration Date Visits Re quested Visits Authorized [id number] Closed 01/06/2019 07/05/2019 1 1 Encounter Details Date Type Department Care Team (Latest Contact Info) Description 03/17/2019 10:35 AM LANG INTERPRETER - 03/17/2019 11:59 PM LANG INTERPRETER Hospital Encounter [facility] Health Imaging Services [address] [facility] [address] [place] [address] Tamia Brooks MD [address] [facility] [address] [place] [phone] Discharge Disposition: Home or Self Care Social [...] on file documented as of this encounter Medications at Time of Discharge Medication Sig Dispensed Refills Start Date End Date calcium 600 MG tablet Take 2 (two) tablets by mouth daily with food Cetirizine HCl (ZYRTEC PO) Take by mouth nightly as needed Cholecalciferol (VITAMIN D-3) 1000 UNITS Take by mouth once daily glucosamine-chondroitin (GLUCOSAMINE CHONDR COMPLEX) 500-400 MG capsuleIndications:Pred iabetes,Primary osteoarthritis of right hip Take 1 capsule by mouth once daily 30 capsule 5 05/13/2017 blood glucose (ONETOUCH VERIO) test stripIndications:Diet-c ontrolled diabetes mellitus (HCC) Use 1 strip once daily 100 strip 5 01/06/2019 01/11/2020 Dextromethorphan-Guaife nesin (MUCINEX DM MAXIMUM STRENGTH PO) Take by mouth as needed 08/20/2022 diclofenac sodium EC (VOLTAREN) 75 MG tablet 75 mg 2 times daily 12/14/2018 08/30/2020 furosemide (LASIX) 20 MG tabletIndications:Venou s stasis dermatitis of both lower extremities,CKD (chronic kidney disease) stage 3, GFR 30-59 ml/min ([facility]) TAKE 1 TABLET TWICE A DAY 180 tablet 1 02/01/2019 10/05/2019 gabapentin (NEURONTIN) 300 MG capsule Take 1 capsule by mouth 3 times daily 270 capsule 4 03/12/2018 05/04/2019 lisinopril (PRINIVIL; ZESTRIL) 20 MG tabletIndications:Benig n essential HTN TAKE 1 TABLET DAILY 90 tablet 1 12/22/2018 06/14/2019 Multiple Vitamins-Minerals (CENTRUM SILVER ULTRA WOMENS) TABS Take 1 Tab by mouth once daily. 08/30/2020 omeprazole (PRILOSEC) 40 MG capsuleIndications:Louie roesophageal reflux disease without esophagitis Take 1 capsule by mouth daily before breakfast 90 capsule 1 06/25/2018 06/14/2019 ONETOUCH DELICA LANCETS 33G MISC Use 1 Each once daily 100 Each 5 11/13/2018 01/11/2020 rosuvastatin (CRESTOR) 10 MG tabletIndications:Hyper lipidemia Take 1 tablet by mouth once daily Reasons: High Amount of Fats in the Blood 90 tablet 1 01/06/2019 10/05/2019 documented as of this encounter Plan of Treatment Upcoming Encounters Date Type Department Care Team (Late st Contact Info) Description 06/29/2024 10:00 AM CDT Office Visit [facility] - Internal Medicine [address] [place] [address] [place] [address] Tamia Brooks MD [address] [place] [phone] documented as of this encounter Goals Goal Patient Goal Type Associated Problems Recent Progress Patient-Stated? Author Blood Pressure < 140/90 Blood Pressure 130/70( 024 1:19 PM CDT) Lola Serna MA documented as of this encounter Procedures Procedure Name Priority Date/Time Associated Diagnosis Comments DEXA BONE DENSITY AXIAL SKELETON Routine 03/17/2019 10:46 AM LANG INTERPRETER Asymptomatic menopausal state Osteopenia, unspecified location documented in this encounter Results * DEXA BONE DENSITY AXIAL SKELETON (03/17/2019 10:46 AM LANG INTERPRETER) Anatomical Region Laterality Modality Nuclear Medicine 03/17/2019 10:5 0 AM LANG INTERPRETER Impressions 03/17/2019 10:53 AM LANG INTERPRETER Osteopenia of the hips. Normal bone mineral density of the lumbar spine. [employer] DEFINITIONS NORMAL= T-Score at or above -1.0 SD OSTEOPENIA = T-Score between -1 and -2.5 SD OSTEOPOROSIS = T-Score at or below -2.5 SD Reading Radiologist: Kiki Mireles MD on 03/17/2019 at 10:53 AM Narrative 03/17/2019 10:53 AM [facility] BONE MINERAL DENSITY STUDY: INDICATION: ??68-year-old for [...] 10:53 AM Tamia Brooks MD DEXA ORDERABLES documented in this encounter Visit Diagnoses Diagnosis Asymptomatic menopausal state Asymptomatic postmenopausal status (age-related) (natural) Osteopenia, unspecified location documented in this encounter Care Teams Education Dean Relationship Specialty Start Date End Date Tamia Brooks MD [address] [place] [address] PCP - General Internal Medicine 07/26/16 Yohan Barros, DPM [address] [place] [phone] Podiatry 05/24/13 Efrain Dunlap MD 1035 [facility] 400 [place] [phone] Orthopedic Surgery 01/06/19 08/29/20 documented as of this encounter
--- OUTSIDE RECORDS SUMMARY | 2024-03-22 20:11 | XMS_ITS | Encounter Summary ---
Author Organization [facility] Address [address] [facility] [place] [address] Care Team Providers Care Hip Hop Performers Name Role Phone Yohan Barros DPM Unavailable [phone] Tamia Brooks MD Primary Care Provider [phone] Efrain Dunlap MD Unavailable Tamia Brooks MD Unavailable [phone] Reason for Visit * Reason Onset Date Comments MEDICATION REFILL 05/04/2019 Encounter Details Date Type Department Care Team (Late st Contact Info) Description 05/04/2019 Refill [facility] Medical [facility] - Internal Medicine [facility] [facility] [address] [place] [id number] Tamia Brooks MD [address] [place] [phone] MEDICATION REFILL Social History Tobacco Use [...] encounter Miscellaneous Notes * Telephone Encounter - TripKeny - 05/04/2019 2:01 PM CST Last appt: 04.30.2019 Next appt: 07.07.2019 Number of cancel or no shows in the last 12 months: 0 Allergies have been reviewed. Correct pharmacy is populated. Please sign RX and close encounter. D ADOLESCENT PSYCHIATRIST documented in this encounter Plan of Treatment Upcoming Encounters Date Type Department Care Team (Late st Contact Info) Description 06/29/2024 10:00 AM CDT Office Visit [facility] - Internal Medicine [address] [facility] [address] [place] [address] Tamia Brooks MD [address] [place] [phone] documented as of this encounter Goals Goal Patient Goal Type Associated Problems Recent Progress Patient-Stated? Author Blood Pressure < 140/90 Blood Pressure 130/70( 024 1:19 PM CDT) Lola Serna MA documented as of this encounter Visit Diagnoses Not on filedocumented in this encounter Care Teams Hip Hop Performers Relationship Specialty Start Date End Date Tamia Brooks MD [address] [place] [phone] PCP - General Internal Medicine 07/26/16 Tamia Brooks MD [address] [place] [phone] PCP - Attributed-MSSP 04/10/19 12/08/19 Yohan Barros DPM [address] [place] [address] [place] [phone] Podiatry 05/24/13 Efrain Dunlap MD [address] [place] [phone] Orthopedic Surgery 01/06/19 08/29/20 documented as of this encounter
--- OUTSIDE RECORDS SUMMARY | 2024-03-22 20:11 | XMS_ITS | Encounter Summary ---
Author Organization [facility] Address [address] [facility] [place] [address] Care Team Providers Care Structural Designer Name Role Phone Yohan Barros DPM Unavailable [phone] Tamia Brooks MD Primary Care Provider Reason for Visit * Reason Onset Date Comments MEDICATION REFILL 05/01/2021 Encounter Details Date Type Department Care Team (Late st Contact Info) Description 05/01/2021 Refill [facility] Medical [facility] - Internal Medicine [address] [facility] [address] [place] [phone] Tamia Brooks MD [address] [place] [address] [place] [phone] MEDICATION REFILL Social History Tobacco Use [...] * Telephone Encounter - Audra Bernal - 05/01/2021 11:44 AM CST Pt wasn't sure she was supposed to continue Prevacid or not. Pt asking for refills early as they are going to [place] for a month. Last appt: 03/29/21 Next appt: Number of cancel or no shows in the last 12 months: 1 Allergies have been reviewed. Correct pharmacy is populated. Please sign RX and close encounter. GRAPH INSPECTOR documented in this encounter Plan of Treatment Upcoming Encounters Date Type Department Care Team (Late st Contact Info) Description 06/29/2024 10:00 AM CDT Office Visit [facility] - Internal Medicine [address] [facility] [address] [place] [phone] Tamia Brooks MD [address] [place] [phone] documented as of this encounter Goals Goal Patient Goal Type Associated Problems Recent Progress Patient-Stated? Author Blood Pressure < 140/90 Blood Pressure 130/70( 024 1:19 PM CDT) Lola Serna MA documented as of this encounter Visit Diagnoses Diagnosis Benign essential HTN Essential hypertension, benign Mixed hyperlipidemia documented in this encounter Care Teams Structural Designer Relationship Specialty Start Date End Date Tamia Brooks MD [address] [place] [phone] PCP - General Internal Medicine 07/26/16 Yohan Barros DPM [facility] [address] [place] [phone] Podiatry 05/24/13 documented as of this encounter
--- OUTSIDE RECORDS SUMMARY | 2024-03-22 20:11 | XMS_ITS | Encounter Summary ---
Author Organization [facility] Address [address] [facility] [place] [address] Care Team Providers Care Elevator Examiner Name Role Phone Yohan Barros DPM Unavailable [phone] Tamia Brooks MD Primary Care Provider Efrain Dunlap MD Unavailable Tamia Brooks MD Unavailable [phone] Encounter Details Date Type Department Care Team (Latest Contact Info) Description 05/10/2019 2:10 PM SEWER - 05/10/2019 11:59 PM [facility] Hospital Encounter 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 [address] [facility] [address] [place] [phone] Discharge Disposition: Home or Self Care Social [...] daily 30 capsule 5 05/13/2017 albuterol HFA (PROVENTIL;VENTOLIN;PRO AIR) 108 (90 Base) MCG/ACT inhaler 05/09/2019 07/22/2019 blood glucose (ONETOUCH VERIO) test stripIndications:Diet-c ontrolled diabetes mellitus (HCC) Use 1 strip once daily 100 strip 5 01/06/2019 01/11/2020 Dextromethorphan-Guaife nesin (MUCINEX DM MAXIMUM STRENGTH PO) Take by mouth as needed 08/20/2022 diclofenac sodium EC (VOLTAREN) 75 MG tablet 75 mg 2 times daily 12/14/2018 08/30/2020 doxycycline hyclate (VIBRAMYCIN) 100 MG capsule 05/09/2019 03/29/2021 furosemide (LASIX) 20 MG tabletIndications:Venou s stasis dermatitis of both lower extremities,CKD (chronic kidney disease) stage 3, GFR 30-59 ml/min ([facility]) TAKE 1 TABLET TWICE A DAY 180 tablet 1 02/01/2019 10/05/2019 gabapentin (NEURONTIN) 300 MG capsule Take 1 capsule by mouth 3 times daily 270 capsule 1 05/04/2019 01/11/2020 guaiFENesin ER 12hr (MUCUS RELIEF ER) 600 MG tablet Take 600 mg by mouth every 12 hours 08/30/2020 lisinopril (PRINIVIL; ZESTRIL) 20 MG tabletIndications:Manpreet n essential HTN TAKE 1 TABLET DAILY [...] Description 06/29/2024 10:00 AM CDT Office Visit [facility] - Internal Medicine [address] [facility] [address] [place] [address] Tamia Brooks MD [address] [facility] [address] [place] [address] documented as of this encounter Goals Goal Patient Goal Type Associated Problems Recent Progress Patient-Stated? Author Blood Pressure < 140/90 Blood Pressure 130/70( 024 1:19 PM CDT) No Lola Neff MA documented as of this encounter Procedures Procedure Name Priority Date/Time Associated Diagnosis Comments XR CHEST 2VW Routine 05/10/2019 2:28 PM SEWER Pneumonia due to infectious organism, unspecified laterality, unspecified part of lung documented in this encounter Results * XR CHEST 2VW (05/10/2019 2:28 PM SEWER) Anatomical Region Laterality Modality Chest Radiographic Aimee ging 05/10/2019 2:29 PM SEWER Impressions 05/10/2019 2:29 PM SEWER No active disease. Reading Radiologist: Janes Alcantar MD on 05/10/2019 at 2:29 PM Narrative 05/10/2019 2:29 PM SEWER Chest 2 views INDICATION: Productive cough Findings: The lungs are clear of infiltrate. There are no pleural effusions or pneumothorax. The heart size and pulmonary vascularity are normal. ??There has been no change since July 2016. There are degenerative changes of the spine. Procedure Note Janes Alcantar MD - 05/10/2019 Chest 2 views INDICATION: Productive cough Findings: The lungs are clear of infiltrate. There are no pleural effusions or pneumothorax. The heart size and pulmonary vascularity are normal. There has been no change since July 2016. There are degenerative changes of the spine. IMPRESSION No active disease. Reading Radiologist: Janes Alcantar MD on 05/10/2019 at 2:29 PM Bee Garland DIAMOND WHEEL EDGER-WASHHOUSE WORKER DIAGNOSTIC IMAG ING ORDERABLES documented in this encounter Visit Diagnoses Diagnosis Pneumonia due to infectious organism, unspecified laterality, unspecified part of lung documented in this encounter Care Teams Elevator Examiner Relationship Specialty Start Date End Date Tamia Brooks MD [address] [place] [phone] PCP - General Internal Medicine 07/26/16 Tamia Brooks MD [address] [place] [phone] PCP - Attributed-MSSP 04/10/19 12/08/19 Yohan Barros DPM [address] [phone] Podiatry 05/24/13 Efrain Dunlap MD [address] [place] [address] Orthopedic Surgery 01/06/19 08/29/20 documented as of this encounter
--- OUTSIDE RECORDS SUMMARY | 2024-03-22 20:11 | XMS_ITS | Encounter Summary ---
Author Organization [facility] Address [address] [facility] [place] [address] Care Team Providers Care Industrial Cafeteria Manager Name Role Phone Yohan Barros DPM Unavailable [phone] Tamia Brooks MD Primary Care Provider [phone] Efrain Dunlap MD Unavailable Tamia Brooks MD Unavailable [phone] Reason for Visit * Reason Comments Medicare Subsequent Annual Wellness Visi t Encounter Details Date Type Department Care Team (Late st Contact Info) Description 01/11/2020 1:00 PM NEUROLOGY TECHNICIAN Office Visit [facility] - Internal Medicine [address] [facility] [address] [place] [phone] Tamia Brooks MD [address] [place] [phone] Medicare annual wellness visit, subsequent (Primary Dx); Need for vaccination; Type 2 diabetes mellitus with stage 3a chronic kidney disease, without long-term current use of insulin (HCC) Social History Tobacco Use Types Packs/Day [...] Sign Reading Time Taken Comments Blood Pressure 140/80 01/11/2020 1:11 PM NEUROLOGY TECHNICIAN Pulse 86 01/11/2020 1:11 PM NEUROLOGY TECHNICIAN Temperature 36.4 ??C (97.6 ??F) 01/11/2020 1:11 PM CS T Respiratory Rate - - Oxygen Saturation 98% 01/11/2020 1:11 PM NEUROLOGY TECHNICIAN Inhaled Oxygen Concentration - - Weight 88.7 kg (195 lb 9.6 oz) 01/11/2020 1:11 P M NEUROLOGY TECHNICIAN Height 165.1 cm (5' 5 ) 01/11/2020 1:11 PM NEUROLOGY TECHNICIAN Body Mass Index 32.55 01/11/2020 1:11 PM NEUROLOGY TECHNICIAN documented in this encounter Patient Instructions * Patient Instructions* Marlen Sarmiento' - 01/11/2020 1:00 PM NEUROLOGY TECHNICIAN Please arrive 15 minutes early to your next appointment. Following your visit, you may receive a survey via email or U.S. Mail about your experience with us. We encourage you to respond to this confidential survey about our care. We at [facility] are committed toalways providing you with the most exceptional care. Your feedback helps us provide quality serviceat every visit. Labs: You have labs pending. You do need to be fasting for this. Please go to your nearest [facility] to get this done at your convenience. There is one in our building ([address] [place] [address]), [address]. The orders are electronic so you do not need any paperwork. You will need to bring your photo id and insurance card to the lab. Get done 1 week before next visit. Caring for Your High Blood Pressure Healthy [...] Where can I go for more information? [place] [employer] National Center: http://www.americanheart.org 1. In the top header, click ???Conditions?? . 2. In the top header, click ???high blood pressure.?? 3. For a printable blood pressure tracker, scroll toward the bottom of the page to Related Tools, and click ???HBP Trackers.?? 5-167-RAH-USA-1 or ( ) National Heart, Lung and Blood [place]: http://www.nhlbi.nih.gov/health/infoctr/index.htm Caring for Your Diabetes Exercise Tips ??? [...] and how to manage your diabetes: ??? [place] Diabetes Association: www.diabetes.org 5-690-HFSORRKR ( ) ??? [place] Diabetes Association-Support group line: www.professional.diabetes.org ??? [place] Heart Association: www.heart.org or 6-413-BMS-[place]-1 ( ) ??? [employer] [place] MyPlate: www.ShotSpottermyplate.gov OLOGY TECHNICIAN documented in this encounter Progress Notes * Tamia Brooks MD - 01/11/2020 1:25 PM CST Tamia Brooks M.D [facility] - Division of Internal Medicine [address] [facility], [address] [place] [address] MEDICARE ANNUAL WELLNESS VISIT (12 months after [...] kidney disease) stage 3, GFR 30-59 ml/min Chronic insomnia Osteopenia DAILY (obstructive sleep apnea) Class 1 obesity due to excess calories with serious comorbidity and body mass index (BMI) of 31.0 to 31.9 in adult BMI 32.0-32.9,adult Chronic diastolic congestive heart failure Type 2 diabetes mellitus with stage 3 chronic kidney disease, without long-term current use of insulin Past Medical History: Diagnosis Date ??? Anhydrotic [...] file Occupational History ??? Not on file Social Needs ??? Financial resource strain: Not on file ??? Food insecurity Worry: Not on file Inability: Not on file ??? Transportation needs Medical: Not on file Non-medical: Not on file Tobacco Use ??? Smoking status: Former Smoker Packs/day: 0.20 Years: 12.00 Pack years: 2.40 Types: Cigarettes Quit date: 03/10/1990 Years since quittin.8 ??? Smokeless tobacco: Never Used Substance and Sexual Activity ??? Alcohol use: Yes Comment: occ ??? Drug use: No ??? Sexual activity: Yes Partners: Male Lifestyle ??? Physical activity Days per week: Not on file Minutes per session: Not on file ??? Stress: Not on file Relationships ??? Social connections Talks on phone: Not on file Gets together: Not on file Attends adventist service: Not on file Active member of club or organization: Not on file Attends meetings of clubs or organizations: Not on file Relationship status: Not on file ??? Intimate partner violence Fear of current or ex partner: Not on file Emotionally abused: Not on file Physically abused: Not on file Forced sexual activity: Not on file Other Topics Concern ??? Service No ??? Blood Transfusions No ??? Caffeine Concern No ??? Occupational Exposure No ??? Hobby Hazards No ??? Sleep Concern Yes ??? Stress Concern Yes ??? Weight Concern Yes ??? Special Diet Yes ??? Back Care Yes ??? Exercise Yes ??? Bike Helmet Yes ??? Seat Belt Yes ??? Self-Exams Yes Social History Narrative ??? Not on file Family History Problem Relation Name Age of Onset ??? Heart Failure Mother ??? Lung Cancer Father smoker ??? Cancer - Colon Brother 55 2008 ??? Cancer - Breast Maternal Aunt 70 Allergies Allergen Reactions ??? Darvon Nausea and/or Vomiting and Dizziness Current Outpatient Medications on File Prior to Visit Medication Sig Dispense Refill ??? albuterol HFA (PROVENTIL;VENTOLIN;PROAIR) 108 (90 Base) MCG/ACT inhaler Inhale 2 puffs by mouthevery 4 hours as needed for Shortness of Breath, Wheezing or Cough 1 Inhaler 5 ??? calcium 600 MG tablet Take 2 Tabs by mouth daily with food ??? Cetirizine HCl (ZYRTEC PO) Take by mouth nightly as needed ??? Cholecalciferol (VITAMIN D-3) 1000 UNITS Take by mouth 2 times daily ??? Dextromethorphan-Guaifenesin (MUCINEX DM MAXIMUM STRENGTH PO) Take by mouth as needed ??? diclofenac sodium EC (VOLTAREN) 75 MG tablet 75 mg 2 times daily ??? doxycycline hyclate (VIBRAMYCIN) 100 MG capsule ??? furosemide (LASIX) 20 MG tablet TAKE 1 TABLET TWICE A DAY 180 tablet 1 ??? glucosamine-chondroitin (GLUCOSAMINE CHONDR COMPLEX) 500-400 MG capsule Take 1 capsule by mouthonce daily 30 capsule 5 ??? guaiFENesin ER 12hr (MUCUS RELIEF ER) 600 MG tablet Take 600 mg by mouth every 12 hours ??? lisinopril (PRINIVIL; ZESTRIL) 20 MG tablet Take 1 tablet by mouth once daily 90 tablet 1 ??? Multiple Vitamins-Minerals (CENTRUM SILVER ULTRA WOMENS) TABS Take 1 Tab by mouth once daily. ??? omeprazole (PRILOSEC) 40 MG capsule Take 40 mg by mouth daily before breakfast ??? pantoprazole EC (PROTONIX) 40 MG tablet Take 1 tablet by mouth 2 times daily for 14 days, THEN 1 tablet once daily. Reasons: Gastroesophageal Reflux Disease. 60 tablet 2 ??? rosuvastatin (CRESTOR) 10 MG tablet Take 1 tablet by mouth once daily Reasons: High Amount of Fats in the Blood 90 tablet 1 No current facility-administered medications on file prior to visit. Immunization History Administered Date(s) Administered ??? FLU VACCINE IIV INC ANTIG PF IM 01/06/2015, 12/29/2015, 12/31/2018, 12/30/2019 ??? FLU VACCINE TRI IIV3 SPLIT PF IM (FLUVIRIN) 12/03/2017 ??? INFLUENZA 11/17/2008, 12/08/2009, 01/06/2011, 01/10/2012, 01/13/2013, 01/13/2013, 11/22/2013 ??? Influenza Vaccine Pf Cell Cult (18+yrs) IM 12/03/2017 ??? PNEUMOCOCCAL PPSV23 01/08/2010, 09/16/2016 ??? Pneumococcal Pcv13 Conj 07/10/2015 HISTORY OF PRESENT ILLNESS Chief Complaint Patient presents with ??? Medicare Subsequent Annual Wellness Visit She feels she needs an eye exam. Has been holding on to the wall when going down steps. She has had 3 falls recently. Pt has been tripping and falling over changes in the pavement. She also feel when she was bringing in the trash can. Tripped over the wheel. 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 She denies any significant pain from the falls. Did not hit head or lose consciousness. H/o covid 10/2019. Still have itching in her ears. Not checking BP. Denies CP, SOB, LE edema. DM2 - not checking BG at this time. Watching diet. Wt Readings from Last 3 Encounters: 01/11/20 88.7 kg (195 lb 9.6 oz) 05/10/19 85.9 kg (189 lb 6.4 oz) 04/30/19 87.5 kg (193 lb) Weight change: + 7 lbs since the last visit here. Aerobic exercise: regularly as directed Was a minimum of 40 minutes 5 days per week of aerobic exercise advocated: Yes CURRENT DIET limits carbohydrates, limits fats and cholestrol intake, limits salt intake DEPRESSION SCREENING (Annals Int Med., 151(11): Feb 15; pp 184-460) Depression: PHQ-2:TOTAL POINT SCORE: 0 PHQ-9: Depression risk factors identified: none FUNCTIONAL ASSESSMENT HEARING IMPAIRMENT HEARING IMPAIRMENT Do you have a problem hearing over the telephone? No Do you have trouble following the conversation when two or more people are talking at the same time? No Do people complain that you turn the TV volume up too high? No Do you have a strain to understand conversation? No Do you have trouble hearing in a noisy background? No Do you find yourself asking people to repeat themselves? No Do many people you talk to seem to mumble (or not speak clearly)? No Do you misunderstand what others are saying and respond inappropriately? No Do you have trouble understanding the speech of women and children? No Do people get annoyed because you misunderstand what they say? No (NIH: If answered yes to 3 or more may need to be referred) ACTIVITIES OF DAILY LIVING Without assistance are you able: Dress? Yes Feed yourself? Yes Prepare meals? Yes Walk independently? Yes Toilet yourself? Yes Do own hygiene? Yes Do your shopping? Yes Handle your money? Yes Administer your medications? Yes Clean your home? Yes Do you still drive? Yes Any problems with driving? No Do you get lost in your neighborhood? No FALL RISK Have you fallen in the last year?: (!) Yes (document or confirm fall details are in the medical history)(not sure when she fell but she fell a few times this year) Fall >2 x or injured from the fall?: (!) Yes(few times this year at least 3 times starting june) Do you have grab bars in your shower? No HOME SAFETY (ask patient when alone) Living arrangements - the patient lives with their spouse. Do you have working smoke detectors? Yes Is the path from your bed to the bathroom well-lit and free of obstacles? Yes Do you have to walk around or step over electric cords at home? No Do you feel safe at home? Yes, feel safe Have you ever been hit/hurt by someone close to you? No, have not been hit/hurt Do you feel threatened by someone close to you? No, do not feel threatened Pt non-communicative or severely cognitively impaired? No Are there signs/clinical indicators of abuse/neglect? No, signs of abuse/neglect Unable to question patient about abuse? No CODE STATUS Full code ADVANCE DIRECTIVE Do you have a medical advance directive:Yes Do you have a power of city attorney:Yes Was form for POA/Advance directive given: No DURABLE MEDICAL EQUIPMENT [ ] Needs a cane due to gait instability [ ] Needs a walker due to gait instability [ ] Needs a hospital bed due to difficulty with positioning. [ ] Needs oxygen due to hypoxia. [ ] Needs CPAP/APAP for sleep apnea [ ] Needs diabetic monitoring supplies for diabetes. [ ] No routine use of DME LIST OF PROVIDERS Patient Care Team: Tamia Brooks MD as PCP - General (Internal Medicine) Tamia Brooks MD as PCP - [facility] Yohan Barrso DPM (Podiatry) Efrain Dunlap MD (Orthopedic Surgery) PHYSICAL EXAM Vitals: 01/11/20 1311 BP: 140/80 Pulse: 86 Temp: 97.6 ??F (36.4 ??C) SpO2: 98% Weight: 88.7 kg (195 lb 9.6 oz) Height: 1.651 m (5' 5 ) Body mass index is 32.55 kg/m??. CrCl cannot be calculated (Patient's most recent lab result is older than the maximum 15 days allowed.). GEN: Alert. In no acute distress. PSYCH: Pleasant. Answers questions appropriately. COGNITIVE: WNL Get Up and Go Test: 8 seconds Skin: No rash or palpable lesion. [...] intact MS: motor normal all 4 extrem A comprehensive diabetic foot exam was performed today on bare feet including visual inspection, monofilament, and assessment of pulses. The exam was normal, showing no lesions. Patient had normal pulses and sensation. The patient was provided education as to appropriate diabetic foot hygiene. No exam data present SCREENING SCHEDULE Health Maintenance Topic Date Due ??? DTAP/TDAP/TD VACCINES (1 - Tdap) 1967 ??? ZOSTER VACCINE (1 of 2) 1998 ??? HCC (Chart Reviewer Use Only) 02/11/2019 ??? ANNUAL MEDICARE WELLNESS VISIT 02/18/2019 ??? DIABETES-HGB A1C 07/08/2019 ??? DIABETES-EYE EXAM 12/08/2019 ??? DIABETES-FOOT EXAM WITH MONOFILAMENT 01/07/2020 ??? MAMMOGRAM 04/29/2020 ??? DEPRESSION SCREENING 01/10/2021 ??? BONE DENSITY TESTING 03/17/2021 ??? COLON CA SCREENING 11/06/2023 ??? PNEUMOCOCCAL VACCINE 65+ Completed ??? INFLUENZA VACCINE Completed ??? HEPATITIS C SCREENING Completed ??? PNEUMOCOCCAL VACCINE Aged Out ??? HIB VACCINE Aged Out ??? MENINGOCOCCAL VACCINE Aged Out EDUCATION, COUNSELING, AND REFERRAL BASED ON THE PREVIOUS SCREENING Above screenings were performed and referrals were made as appropriately needed. Orders Placed This Encounter ??? CBC WITH DIFFERENTIAL Order Specific Question: Release to patient Answer: Immediate ??? COMPREHENSIVE METABOLIC PANEL ??? LIPID PROFILE ??? MICROALB/CREAT RATIO URINE RANDOM PANEL Order Specific Question: Release to patient Answer: Immediate ??? HEMOGLOBIN A1C - POINT OF CARE (HgbA1C) Order Specific Question: Release to patient Answer: Immediate ??? zoster vaccine recombinant adjuvanted (SHINGRIX) 50 MCG/0.5ML SUSR injection Sig: Inject 0.5 mL into muscle once for 1 dose .Pharmacist to administer Dispense: 0.5 mL Refill: 0 ??? Tdap, pfxdbrh-jbovdafahg-ajplv pertussis, (BOOSTRIX) 5-2.5-18.5 LF-MCG/0.5 (7y+) injection Sig: Inject 0.5 mL into muscle once for 1 dose Reasons: Tetanus Dispense: 5 mL Refill: 0 ??? fluocinolone (DERMOTIC) 0.01 % otic oil Sig: Instill 3 drops into both ears 2 times daily Reasons: Chronic External Ear Eczema Dispense: 60 mL Refill: 5 Recent Labs Component Name 10/19/18 1120 04/11/18 09/26/17 0935 05/22/17 0835 SODIUM 143 142 147* 143 POTASSIUM 4.9 4.5 5.1 4.6 CHLORIDE 107* 104 105 102 CO2 19* 22 23 22 BUN 18 18 17 CREATININE 1.18* - 1.27* 1.35* GLUCOSE 96 113 123* 125* CALCIUM 9.7 9.8 10.4* 10.1 Recent Labs Component Name 10/19/18 1120 09/26/16 0802 07/13/14 0847 TSH 2.210 2.080 2.060 Recent Labs Component Name 10/19/18 1120 04/17/17 0911 09/26/16 0802 WBC 6.8 5.7 4.9 HGB 12.5 12.7 12.4 HCT 37.8 39.9 36.8 PLTCOUNT 281 302 312 Recent Labs Component Name 01/06/19 10/19/18 1120 09/16/16 HGBA1C 5.8 6.5* 5.9 Recent Labs Component Name 10/19/18 1120 09/26/16 0802 10/04/15 0732 CHOL 198 181 279* TRIG 211* 130 121 HDL 43 47 58 LDLCALC 113* 108* 197* No results for input(s): MICROALBUGML in the last 08604 hours. No results for input(s): MICROALBCREA in the last 61667 hours. No results for input(s): INR in the last 04746 hours. Trial dermotic gtt for ear itching Continue the same medications OLOGY TECHNICIAN documented in this encounter Plan of Treatment Upcoming Encounters Date Type Department Care Team (Late st Contact Info) Description 06/29/2024 10:00 AM CDT Office Visit [facility] - Internal Medicine [address] [place] [phone] Tamia Brooks MD [address] [place] [phone] Scheduled Orders Name Type Priority Associated Diagnoses Orde r Schedule HEMOGLOBIN A1C - POINT OF CARE (HgbA1C) Point of Care Testing Routine Type 2 diabetes mellitus with stage 3a chronic kidney disease, without long-term current use of insulin (HCC) Ordered: 01/11/2020 documented as of this encounter Goals Goal Patient Goal Type Associated Problems Recent Progress Patient-Stated? Author Blood Pressure < 140/90 Blood Pressure 130/70( 024 1:19 PM CDT) Lola Serna MA documented as of this encounter Procedures Procedure Name Priority Date/Time Associated Diagnosis Comments MICROALB/CREAT RATIO URINE RANDOM PANEL Routine 02/11/2020 8:00 AM CST Medicare annual wellness visit, subsequent Type 2 diabetes mellitus with stage 3a chronic kidney disease, without long-term current use of insulin (HCC) CBC W AUTO DIFFERENTIAL Routine 02/11/2020 8:00 AM CST Medicare annual wellness visit, subsequent Type 2 diabetes mellitus with stage 3a chronic kidney disease, without long-term current use of insulin (HCC) COMPREHENSIVE METABOLIC PANEL Routine 02/11/2020 8:00 AM NEUROLOGY TECHNICIAN Medicare annual wellness visit, subsequent Type 2 diabetes mellitus with stage 3a chronic kidney disease, without long-term current use of insulin (HCC) LIPID PROFILE Routine 02/11/2020 8:00 AM [facility] Medicare annual wellness visit, subsequent Type 2 diabetes mellitus with stage 3a chronic kidney disease, without long-term current use of insulin (HCC) documented in this encounter Results * MICROALB/CREAT RATIO URINE RANDOM PANEL (02/11/2020 8:00 AM NEUROLOGY TECHNICIAN) Creatinine Urine 263.0 Not Estab. mg/dL [facility] INSURANCE BILL Microalbumin Urine 34.8 Not Estab. ug/mL [facility] INSURANCE BILL Microalbumin/Crea tinine Ratio 13 0 - 29 mg/g creat [facility] INSURANCE BILL Comment: ?Normal: ?0 - ??29 ?Moderately increased: 30 - 300 ?Severely increased: ? >300 FASTING Urine URINE SPECIMEN OBTAINED BY CLEAN CATCH PROCEDURE / Unknown 02/11/2020 8:00 AM NEUROLOGY TECHNICIAN 02/11/2020 Narrative Resulting Agency Comment Lab Testing performed at: [facility] [place] [address] ??[facility] [phone] Tamia Brooks MD LAB - URINE CHEMISTR Y ORDERABLES Performing Organization Address [facility] de Phone Number [facility] INSURANCE BILL [address] [place] [address] * (ABNORMAL) LIPID PROFILE (02/11/2020 8:00 AM NEUROLOGY TECHNICIAN) Cholesterol 201(H) 100 - 199 mg/dL [facility] INSURANCE BILL Triglycerides 196(H) 0 - 149 mg/dL [facility] INSURANCE BILL HDL Cholesterol 40 >39 mg/dL [facility] INSURANCE BILL VLDL Calculated 35 5 - 40 mg/dL [facility] INSURANCE BILL LDL Calculated 126(H) 0 - 99 mg/dL [facility] INSURANCE BILL Comment NOT NEEDED [facility] INSURANCE BILL Comment: FASTING Ancillary determined the test is not needed. Blood BLOOD SPECIMEN / Unknown 02/11/2020 8:00 AM NEUROLOGY TECHNICIAN 02/11/2020 Narrative Resulting Agency Comment Lab Testing performed at: [facility] [address] ??[facility] [id number] Tamia Brooks MD LAB - CHEMISTRY ORDE RABLES Performing Organization Address [facility] Co de Phone Number [facility] INSURANCE BILL [address] [place] [address] * (ABNORMAL) COMPREHENSIVE METABOLIC PANEL (02/11/2020 8:00 AM NEUROLOGY TECHNICIAN) Glucose 121(H) 65 - 99 mg/dL [facility] INSURANCE BILL BUN 20 8 - 27 mg/dL [facility] INSURANCE BILL Creatinine 1.33(H) 0.57 - 1.00 mg/dL [facility] INSURANCE BILL eGFR by MDRD 40(L) >59 mL/min/1.7 3 [facility] INSURANCE BILL eGFR by MDRD 46(L) >59 mL/min/1.7 3 [facility] INSURANCE BILL BUN/Creatinine Ratio 15 12 - 28 [facility] INSURANCE BILL Sodium 144 134 - 144 mmol/L [facility] INSURANCE BILL Potassium 4.4 3.5 - 5.2 mmol/L [facility] INSURANCE BILL Chloride 101 96 - 106 mmol/L [facility] INSURANCE BILL CO2 24 20 - 29 mmol/L [facility] INSURANCE BILL Calcium 10.1 8.7 - 10.3 mg/dL [facility] INSURANCE BILL Protein Total 7.2 6.0 - 8.5 g/dL [facility] INSURANCE BILL Albumin 4.6 3.7 - 4.7 g/dL [facility] INSURANCE BILL Globulin Total 2.6 1.5 - 4.5 g/dL [facility] INSURANCE BILL Albumin/Globulin Ratio 1.8 1.2 - 2.2 [facility] INSURANCE BILL Bilirubin Total 0.3 0.0 - 1.2 mg/dL [facility] INSURANCE BILL Alkaline Phosphatase 111 39 - 117 IU/L [facility] INSURANCE BILL AST 16 0 - 40 IU/L [facility] INSURANCE BILL ALT 19 0 - 32 IU/L [facility] INSURANCE BILL Comment:FASTING Blood BLOOD SPECIMEN / Unknown 02/11/2020 8:00 AM NEUROLOGY TECHNICIAN 02/11/2020 Narrative Resulting Agency Comment Lab Testing performed at: [facility] [address] [facility] ??[facility] [phone] Tamia Brooks MD LAB - CHEMISTRY PREETI COSTA [facility] INSURANCE BILL [address] [place] [address] * CBC WITH DIFFERENTIAL (02/11/2020 8:00 AM NEUROLOGY TECHNICIAN) WBC 5.9 3.4 - 10.8 x10E3/uL [facility] INSURANCE BILL RBC 4.60 3.77 - 5.28 x10E6/uL [facility] INSURANCE BILL Hemoglobin 13.4 11.1 - 15.9 g/dL [facility] INSURANCE BILL Hematocrit 40.4 34.0 - 46.6 % [facility] INSURANCE BILL MCV 88 79 - 97 fL [facility] INSURANCE BILL MCH 29.1 26.6 - 33.0 pg [facility] INSURANCE BILL MCHC 33.2 31.5 - 35.7 g/dL [facility] INSURANCE BILL RDW 12.6 11.7 - 15.4 % [facility] INSURANCE BILL Platelet Count 289 150 - 450 x10E3/uL [facility] INSURANCE BILL Granulocytes % 51 Not Estab. % [facility] INSURANCE BILL Lymphocytes % 33 Not Estab. % [facility] INSURANCE BILL Monocytes % 11 Not Estab. % [facility] INSURANCE BILL Eosinophils % 3 Not Estab. % [facility] INSURANCE BILL Basophils % 2 Not Estab. % [facility] INSURANCE BILL Immature Cells NOT NEEDED [facility] INSURANCE BILL Comment:Ancillary determined the test is not needed. Granulocytes Absolute 3.0 1.4 - 7.0 x10E3/uL [facility] INSURANCE BILL Lymphocytes Absolute 1.9 0.7 - 3.1 x10E3/uL [facility] INSURANCE BILL Monocytes Absolute 0.6 0.1 - 0.9 x10E3/uL [facility] INSURANCE BILL Eosinophils Absolute 0.2 0.0 - 0.4 x10E3/uL [facility] INSURANCE BILL Basophils Absolute 0.1 0.0 - 0.2 x10E3/uL [facility] INSURANCE BILL Immature Granulocytes 0 Not Estab. % [facility] INSURANCE BILL Immature Granulocytes Absolute 0.0 0.0 - 0.1 x10E3/uL [facility] INSURANCE BILL nRBC NOT NEEDED [facility] INSURANCE BILL Comment:Ancillary determined the test is not needed. Comment Hematology NOT NEEDED [facility] INSURANCE BILL Comment: FASTING Ancillary determined the test is not needed. Blood BLOOD SPECIMEN / Unknown 02/11/2020 8:00 AM NEUROLOGY TECHNICIAN 02/11/2020 Narrative Resulting Agency Comment Lab Testing performed at: [facility] ??[facility] [id number] Tamia Brooks MD LAB - HEMATOLOGY ORD ERABLES [facility] INSURANCE BILL [address] [address] documented in this encounter Visit Diagnoses Diagnosis Medicare annual wellness visit, subsequent- Primary Routine general medical examination at a health care facility Need for vaccination Need for prophylactic vaccination and inoculation against unspecified single disease Type 2 diabetes mellitus with stage 3a chronic kidney disease, without long-term current use of insulin (HCC) documented in this encounter Care Teams Industrial Cafeteria Manager Relationship Specialty Start Date End Date Tamia Brooks MD [address] [place] [address] PCP - General Internal Medicine 07/26/16 Tamia Brooks MD [address] [place] [address] PCP - Attributed-MSSP 01/09/20 03/29/21 Yohan Barros DPM [address] [facility] [address] [place] [id number] Podiatry 05/24/13 Efrain Dunlap MD [address] [place] [address] Orthopedic Surgery 01/06/19 08/29/20 documented as of this encounter
--- OUTSIDE RECORDS SUMMARY | 2024-03-22 20:11 | XMS_ITS | Encounter Summary ---
Author Organization [facility] Address [address] [facility] [place] [address] Care Team Providers Care Chemical Processing Laborer Name Role Phone Yohan Barros DPM Unavailable [phone] Tamia Brooks MD Primary Care Provider Efrain Dunlap MD Unavailable Tamia Brooks MD Unavailable [phone] Reason for Visit * Reason Comments Refill Request Encounter Details Date Type Department Care Team (Late st Contact Info) Description 08/15/2020 Refill [facility] Medical [facility] - Internal Medicine [facility] [address] Tamia Brooks MD [address] [place] [phone] Refill Request Social History Tobacco Use [...] encounter Miscellaneous Notes * Telephone Encounter - Kerry Elliott RN - 08/15/2020 10:00 AM CDT Last Appt:01/11/20 Next Appt:08/30/20 Cancel/No Show:None Allergies Reviewed Correct pharmacy is populated Please sign RX and close encounter documented in this encounter Plan of Treatment Upcoming Encounters Date Type Department Care Team (Late st Contact Info) Description 06/29/2024 10:00 AM CDT Office Visit [facility] - Internal Medicine [address] [facility] [address] [place] [address] Tamia Brooks MD [address] [place] [phone] documented as of this encounter Goals Goal Patient Goal Type Associated Problems Recent Progress Patient-Stated? Author Blood Pressure < 140/90 Blood Pressure 130/70( 024 1:19 PM CDT) Lola Serna MA documented as of this encounter Visit Diagnoses Diagnosis Mixed hyperlipidemia documented in this encounter Care Teams Chemical Processing Laborer Relationship Specialty Start Date End Date Tamia Brooks MD [address] [place] [phone] PCP - General Internal Medicine 07/26/16 Tamia Brooks MD [address] [place] [phone] PCP - Attributed-MSSP 01/09/20 03/29/21 Yohan Barros DPM [address] [place] [phone] Podiatry 05/24/13 Efrain Dunlap MD [address] [place] [phone] Orthopedic Surgery 01/06/19 08/29/20 documented as of this encounter
--- OUTSIDE RECORDS SUMMARY | 2024-03-22 20:11 | XMS_ITS | Encounter Summary ---
Author Organization [facility] Address [address] [place] [address] Care Team Providers Care Early Childhood Name Role Phone Yohan Barros DPM Unavailable [phone] Tamia Brooks MD Primary Care Provider [phone] Efrain Dunlap MD Unavailable Tamia Brooks MD Unavailable [phone] Encounter Details Date Type Department Care Team (Late Contact Info) Description 05/14/2020 Orders Only [facility] - COVID Vax [address] [place] [address] Carlos A Zafar MD [address] [facility] [address] [place] [address] Need for vaccination Social History Tobacco [...] Description 06/29/2024 10:00 AM CDT Office Visit [facility] - Internal Medicine [address] [place] [address] [place] [address] [place] [address] [place] [address] [address] [place] [address] documented as of this encounter Goals Goal Patient Goal Type Associated Problems Recent Progress Patient-Stated? Author Blood Pressure < 140/90 Blood Pressure 130/70( 024 1:19 PM CDT) Lola Serna MA documented as of this encounter Visit Diagnoses Diagnosis Need for vaccination Need for prophylactic vaccination and inoculation against unspecified single disease documented in this encounter Care Teams Early Childhood Relationship Specialty Start Date End Date Tamia Brooks MD [address] [place] [phone] PCP - General Internal Medicine 07/26/16 Tamia Brooks MD [address] [place] [phone] PCP - Attributed-MSSP 01/09/20 03/29/21 Yohan Barros, DPM [address] [place] [phone] Podiatry 05/24/13 Efrain Dunlap MD [address] [place] [phone] Orthopedic Surgery 01/06/19 08/29/20 documented as of this encounter
--- OUTSIDE RECORDS SUMMARY | 2024-03-22 20:11 | XMS_ITS | Encounter Summary ---
Author Organization [facility] Address [address] [facility] [place] [address] Care Team Providers Care Eviction Specialist Name Role Phone Yohan Barros DPM Unavailable [phone] Tamia Brooks MD Primary Care Provider Reason for Visit * Reason Onset Date Comments MEDICATION REFILL 01/11/2022 Encounter Details Date Type Department Care Team (Late st Contact Info) Description 01/11/2022 Refill [facility] Medical [facility] - Internal Medicine [address] [facility] [address] [place] [phone] Tamia Brooks MD [address] [place] [address] [place] [phone] MEDICATION REFILL Social History Tobacco Use [...] encounter Miscellaneous Notes * Telephone Encounter - Niki Titus - 01/11/2022 9:36 AM CDT Pt will be leaving out of town on 01/12/22. Pt won't be able to receive medication [facility]. Pt is requesting 15 day supply. Last appt: 09/26/21 Next appt: 02/20/22 Last refill: 10/11/21 Number of cancel or no shows in the last 12 months: 1 Allergies have been reviewed. Correct pharmacy is populated. Please sign RX and close encounter. documented in this encounter Plan of Treatment Upcoming Encounters Date Type Department Care Team (Late st Contact Info) Description 06/29/2024 10:00 AM CDT Office Visit [facility] Medical [facility] - Internal Medicine [address] [place] [phone] Tamia Brooks MD [address] [place] [phone] documented as of this encounter Goals Goal Patient Goal Type Associated Problems Recent Progress Patient-Stated? Author Blood Pressure < 140/90 Blood Pressure 130/70( 024 1:19 PM CDT) Lola Serna MA documented as of this encounter Visit Diagnoses Diagnosis Mixed hyperlipidemia documented in this encounter Care Teams Eviction Specialist Relationship Specialty Start Date End Date Tamia Brooks MD [address] [place] [phone] PCP - General Internal Medicine 07/26/16 Yohan Barros DPM [address] [phone] Podiatry 05/24/13 documented as of this encounter
--- OUTSIDE RECORDS SUMMARY | 2024-03-22 20:11 | XMS_ITS | Encounter Summary ---
Author Organization [facility] Address [address] [facility] [place] [address] Care Team Providers Care Inventory Audit Clerk Name Role Phone Yohan Barros DPM Unavailable [phone] Tamia Brooks MD Primary Care Provider [phone] Encounter Details Date Type Department Care Team (Latest Contact Info) Description 09/21/2021 Travel Social History Tobacco Use Types Packs/Day [...] Description 06/29/2024 10:00 AM CDT Office Visit [facility] Medical [facility] - Internal Medicine [address] [facility] [address] [place] [phone] Tamia Brooks MD [address] [place] [phone] documented as of this encounter Goals Goal Patient Goal Type Associated Problems Recent Progress Patient-Stated? Author Blood Pressure < 140/90 Blood Pressure 130/70( 024 1:19 PM CDT) Lola Serna MA documented as of this encounter Visit Diagnoses Not on filedocumented in this encounter Care Teams Inventory Audit Clerk Relationship Specialty Start Date End Date Tamia Brooks MD [address] [place] [phone] PCP - General Internal Medicine 07/26/16 Yohan Barros DPM [address] [place] [phone] Podiatry 05/24/13 documented as of this encounter
--- OUTSIDE RECORDS SUMMARY | 2024-03-22 20:11 | XMS_ITS | Encounter Summary ---
Author Organization [facility] Address [address] [facility] [place] [address] Care Team Providers Care Gynecology Teacher Name Role Phone Yohan Barros DPM Unavailable [phone] Tamia Brooks MD Primary Care Provider Reason for Visit * Reason Onset Date Comments ESOPHAGEAL REFLUX 04/27/2021 Encounter Details Date Type Department Care Team (Late st Contact Info) Description 04/27/2021 Telephone [facility] Medical [facility] - Internal Medicine [address] [facility] [address] [place] [phone] Tamia Brooks MD [address] [place] [address] [place] [phone] ESOPHAGEAL REFLUX Social History Tobacco Use Types [...] encounter Miscellaneous Notes * Telephone Encounter - Elvia Bhakta RN - 04/27/2021 2:46 PM CST Called this pt and gave her the information provided. ERING MACHINE TENDER HELPER * Telephone Encounter - Tamia Brooks MD - 04/27/2021 2:43 PM CST Can try lasoprazole if insurances covers. If that doesn't help can try reglan before meals. If not improvement, should see GI. Orders Placed This Encounter ??? lansoprazole (PREVACID) 15 MG capsule Sig: Take 1 (one) capsule to 2 (two) capsules by mouth once daily TO IMPROVE HEARTBURN SYMPTOMS Reasons: Gastroesophageal Reflux Disease Dispense: 60 capsule Refill: 1 ??? metoclopramide (REGLAN) 5 MG tablet Sig: Take 1 (one) tablet by mouth 3 times daily before meals Reasons: Gastroesophageal Reflux Disease Dispense: 30 tablet Refill: 0 ERING MACHINE TENDER HELPER * Telephone Encounter - Elvia Bhakta RN - 04/27/2021 2:09 PM CST Pt called .Acid reflux is constant. Worse in the evening/ all evening. Takes pepcid. Has taken esomeprazole and nexium. None of these are working. Has stage 3 kidney disease.Had chicken and mac and cheese from air fryer last evening. says that she is drinking more coffee. Pt seemed surprised by that observation. Wants to know if there are any other meds or suggestions you can provide ERING MACHINE TENDER HELPER documented in this encounter Plan of Treatment Upcoming Encounters Date Type Department Care Team (Late st Contact Info) Description 06/29/2024 10:00 AM CDT Office Visit [facility] - Internal Medicine [address] [facility] [address] [place] [phone] Tamia Brooks MD [address] [place] [phone] documented as of this encounter Goals Goal Patient Goal Type Associated Problems Recent Progress Patient-Stated? Author Blood Pressure < 140/90 Blood Pressure 130/70( 024 1:19 PM CDT) No Lola Neff MA documented as of this encounter Visit Diagnoses Not on filedocumented in this encounter Care Teams Gynecology Teacher Relationship Specialty Start Date End Date Tamia Brooks MD [address] [facility] [address] [place] [address] PCP - General Internal Medicine 07/26/16 Yohan Barros DPM [address] [facility] [address] [place] [phone] Podiatry 05/24/13 documented as of this encounter
--- OUTSIDE RECORDS SUMMARY | 2024-03-22 20:11 | XMS_ITS | Encounter Summary ---
Author Organization [facility] Address [address] [facility] [place] [address] Care Team Providers Care Director Payer Name Role Phone Yohan Barros DPM Unavailable [phone] Tamia Brooks MD Primary Care Provider Encounter Details Date Type Department Care Team (Late st Contact Info) Description 10/08/2021 Orders Only [facility] Medical [facility] - Internal Medicine [address] [place] [address] [place] [phone] Tamia Brooks MD [address] [place] [phone] DDD (degenerative disc disease), cervical; Cervical radiculopathy Social History Tobacco Use Types Packs/Day Years [...] [facility] - Internal Medicine [address] [facility] [address] [place] [address] [place] [address] [place] [phone] documented as of this encounter Goals Goal Patient Goal Type Associated Problems Recent Progress Patient-Stated? Author Blood Pressure < 140/90 Blood Pressure 130/70( 024 1:19 PM CDT) Lola Serna MA documented as of this encounter Procedures Procedure Name Priority Date/Time Associated Diagnosis Comments MRI CERVICAL SPINE WO CONTRAST Routine 10/04/2021 DDD (degenerative disc disease), cervical Cervical radiculopathy documented in this encounter Results * MRI CERVICAL SPINE WO CONTRAST (10/04/2021) Anatomical Region Laterality Modality Pelvis Magnetic Resonan ce 10/04/2021 Tamia Brooks MD MR ORDERABLES documented in this encounter Visit Diagnoses Diagnosis DDD (degenerative disc disease), cervical Degeneration of cervical intervertebral disc Cervical radiculopathy Brachial neuritis or radiculitis nos documented in this encounter Care Teams Director Payer Relationship Specialty Start Date End Date Tamia Brooks MD [address] [place] [phone] PCP - General Internal Medicine 07/26/16 Yohan Barros DPM [address] [place] [address] [place] [address] Podiatry 05/24/13 documented as of this encounter
--- OUTSIDE RECORDS SUMMARY | 2024-03-22 20:11 | XMS_ITS | Encounter Summary ---
Author Organization [facility] Address [address] [facility] [place] [address] Care Team Providers Care Pasta Maker Name Role Phone Yohan Barros DPM Unavailable [phone] Tamia Brooks MD Primary Care Provider [phone] Tamia Brooks MD Unavailable [phone] Encounter Details Date Type Department Care Team (Latest Contact Info) Description 03/07/2021 Travel Social History Tobacco Use Types Packs/Day [...] COVID-19? No / Unsure 03/07/2021 2:45 PM SECURITY SPECIALIST documented as of this encounter Plan of Treatment Upcoming Encounters Date Type Department Care Team (Late st Contact Info) Description 06/29/2024 10:00 AM CDT Office Visit [facility] Medical [facility] - Internal Medicine [address] [facility] [address] [place] [phone] Tamia Brooks MD [address] [place] [phone] documented as of this encounter Goals Goal Patient Goal Type Associated Problems Recent Progress Patient-Stated? Author Blood Pressure < 140/90 Blood Pressure 130/70( 024 1:19 PM CDT) Lola Serna MA documented as of this encounter Visit Diagnoses Not on filedocumented in this encounter Care Teams Pasta Maker Relationship Specialty Start Date End Date Tamia Brooks MD [address] [place] [address] PCP - General Internal Medicine 07/26/16 Tamia Brooks MD [address] [place] [address] PCP - Attributed-MSSP 01/09/20 03/29/21 Yohan Barros DPM [address] [place] [address] [place] [phone] Podiatry 05/24/13 documented as of this encounter
--- OUTSIDE RECORDS SUMMARY | 2024-03-22 20:11 | XMS_ITS | Encounter Summary ---
Author Organization [facility] Address [address] [facility] [place] [address] Care Team Providers Care Research Technician Name Role Phone Yohan Barros DPM Unavailable [phone] Tamia Brooks MD Primary Care Provider [phone] Efrain Dunlap MD Unavailable Tamia Brooks MD Unavailable [phone] Reason for Visit * Reason Comments Obstructive Sleep Apnea Patient is here to follow up on DAILY. Encounter Details Date Type Department Care Team (Late st Contact Info) Description 04/30/2019 11:30 AM HAND TACKER Office Visit [facility] Medical [facility] - Pulmonology [address], [address] [place] [address] Ramon Parker MD [address] [place] [address] [place] [id number] DAILY (obstructive sleep apnea) (Primary Dx); Allergic rhinitis, unspecified seasonality, unspecified trigger; Hypertension, benign essential Social History Tobacco Use Types Packs/Day Years [...] Sign Reading Time Taken Comments Blood Pressure 154/90 04/30/2019 11:14 AM HAND TACKER Pulse 92 04/30/2019 11:14 AM HAND TACKER Temperature - - Respiratory Rate - - Oxygen Saturation 97% 04/30/2019 11:14 AM HAND TACKER Inhaled Oxygen Concentration - - Weight 87.5 kg (193 lb) 04/30/2019 11:14 AM HAND TACKER Height 165.1 cm (5' 5 ) 04/30/2019 11:14 AM HAND TACKER Body Mass Index 32.12 04/30/2019 11:14 AM HAND TACKER documented in this encounter Progress Notes * Ramon Parker MD - 04/30/2019 11:17 AM CST Pulmonary progress note Division of Internal Medicine-Pulmonary Diseases Office: ; fax [phone] Name: Maura Watkins 04/30/2019 Chief Complaint Follow up visit for DAILY, hypertension and postnasal drip History of Present Illness ?? 69-year-old presents today for a yearly appointment. She was diagnosed with mild obstructive sleep apnea. AHI 5.1. She was referred for CPAP titration and she did best with a pressure of 9 cm of water. Periodic limb movements were seen during the test. She did receive her machine and she has been using it and she feels more awake and less sleepy during the day. No nocturia. No sleepiness while driving. She uses a nasal pillow mask. She does like the machine. She does not use it when she takes naps in the afternoon. She works out 5 days a week. She is not currently working. No restless leg syndrome clinically. ?? Bedtime is 9:00 p.m. She reads for about 15 minutes. Sleep onset latency within 30 minutes. Wake time is 7:00 a.m.. She goes to the gym. She also gets naps in the afternoon for about 2 hours. She is getting up to 8-9 hours of sleep at night and a total of 11 hours per per 24 hours. No depression or anxiety. She feels happy overall. ?? She also has postnasal drip. She takes Zyrtec that keeps it under control. She has hypertension that is currently treated with lisinopril and amlodipine, she is off furosemide. Past Medical History: Diagnosis Date ??? Anhydrotic [...] - Breast Maternal Aunt 70 Social History Occupational History ??? Not on file Tobacco Use ??? Smoking status: Former Smoker Packs/day: 0.20 Years: 12.00 Pack years: 2.40 Types: Cigarettes Last attempt to quit: 03/10/1990 Years since quittin.1 ??? Smokeless tobacco: Never Used Substance and Sexual Activity ??? Alcohol use: Yes Comment: occ ??? Drug use: No ??? Sexual activity: Yes Partners: Male Allergies Allergen Reactions ??? Darvon Nausea and/or Vomiting and Dizziness MEDICATIONS FOR CURRENT ENCOUNTER: Current Outpatient Medications Medication Sig Dispense Refill ??? blood glucose (ONETOUCH VERIO) test strip Use 1 strip once daily 100 strip 5 ??? calcium 600 MG tablet Take 2 Tabs by mouth daily with food ??? Cetirizine HCl (ZYRTEC PO) Take by mouth nightly as needed ??? Cholecalciferol (VITAMIN D-3) 1000 UNITS Take by mouth 2 times daily ??? Dextromethorphan-Guaifenesin (MUCINEX DM MAXIMUM STRENGTH PO) Take by mouth as needed ??? diclofenac sodium EC (VOLTAREN) 75 MG tablet 75 mg 2 times daily ??? furosemide (LASIX) 20 MG tablet TAKE 1 TABLET TWICE A DAY 180 tablet 1 ??? gabapentin (NEURONTIN) 300 MG capsule Take 1 capsule by mouth 3 times daily 270 capsule 4 ??? glucosamine-chondroitin (GLUCOSAMINE CHONDR COMPLEX) 500-400 MG capsule Take 1 capsule by mouthonce daily 30 capsule 5 ??? lisinopril (PRINIVIL; ZESTRIL) 20 MG tablet TAKE 1 TABLET DAILY 90 tablet 1 ??? Multiple Vitamins-Minerals (CENTRUM SILVER ULTRA WOMENS) TABS Take 1 Tab by mouth once daily. ??? omeprazole (PRILOSEC) 40 MG capsule Take 1 capsule by mouth daily before breakfast 90 capsule 1 ??? ONETOUCH DELICA LANCETS 33G MISC Use 1 Each once daily 100 Each 5 ??? rosuvastatin (CRESTOR) 10 MG tablet Take 1 tablet by mouth once daily Reasons: High Amount of Fats in the Blood 90 tablet 1 No current facility-administered medications for this visit. Review of Systems All other systems reviewed and are negative. BP 154/90 Pulse 92 Ht 1.651 m (5' 5 ) Wt 87.5 kg (193 lb) SpO2 97% BMI 32.12 kg/m?? O2: RA Physical Exam Vitals signs and nursing note reviewed. Constitutional: General: She is not in acute distress. Appearance: She is well-developed. She is not diaphoretic. HENT: Head: Normocephalic and atraumatic. Nose: Nose normal. Mouth/Throat: Pharynx: No oropharyngeal exudate. Neck: Musculoskeletal: Neck supple. Thyroid: No thyromegaly. Trachea: No tracheal deviation. Comments: 16 inches neck Cardiovascular: Rate and Rhythm: Normal rate and regular rhythm. Heart sounds: Normal heart sounds. No murmur. No friction rub. No gallop. Pulmonary: Effort: Pulmonary effort is normal. No respiratory distress. Breath sounds: Normal breath sounds. No stridor. Chest: Chest wall: No tenderness. Musculoskeletal: Normal range of motion. General: No tenderness. Lymphadenopathy: Cervical: No cervical adenopathy. Skin: General: Skin is warm and dry. Neurological: Mental Status: She is alert and oriented to person, place, and time. Psychiatric: Behavior: Behavior normal. Thought Content: Thought content normal. Judgment: Judgment normal. Data 01/20/2017 ??9:44 AM - Ramon Parker MD Narrative Ramon Parker MD ? 01/20/2017 ??9:44 AM Polysomnogram sleep study. 66 year-old who reports snoring and excessive daytime sleepiness suspicious of sleep apnea was referred for a polysomnogram. The Holmen Sleepiness Scale at the night of the study was 5/ Recording montage. The patient underwent all night [...] for restless leg syndrome. Ramon Parker MD, [facility] Pulmonary and Sleep Medicine. PAP Compliance data over the past 30 days shows 100 % of the nights machine usage. Out of which 100 % of the nights the machine was used for more than 4 hours. Set pressure 9 cm of water. AHI 4.8 Impression: ICD-10-CM 1. DAILY (obstructive sleep apnea) G47.33 2. Allergic rhinitis, unspecified seasonality, unspecified trigger J30.9 3. Hypertension, benign essential I10 Plan: 1. DAILY. Mild. Her AHI is 5.1. She did best with a pressure of 9 cm of water. Her compliance is excellent using it 100% of the nights for more than 4 hours. No driving if she feels sleepy. ?? Weight loss is encouraged. 1 run of SVT for few seconds was seen during the study and she wanted to discuss that with Dr. Brooks and she will remind herself to do that. She wanted to hold off on cardiology referral last year as she never had a heart disease in the past. She did have periodic limb movements during the sleep study but she does not have restless leg syndrome clinically. I will hold off on treating her periodic limb movements unless she has excessive daytime sleepiness. ?2. Allergic rhinitis. For which she uses Zyrtec and Mucinex DM. Currently keeping her under control. 3. HTN. Treated with Amlodipine and lisinopril. She used to be on furosemide and now she is off of it. I discussed with her that treating sleep apnea tends to get the blood pressure under better control. ?? RTC in 1-2 years. Ramon Parker MD CC: Tamia Brooks MD [phone] Be advised that voice recognition software was used in the production of this record. Errors in interpretation may have been inadvertently missed during review. TACKER documented in this encounter Plan of Treatment Upcoming Encounters Date Type Department Care Team (Late st Contact Info) Description 06/29/2024 10:00 AM CDT Office Visit [facility] - Internal Medicine [address] [place] [address] Tamia Brooks MD [address] [facility] [address] [place] [address] documented as of this encounter Goals Goal Patient Goal Type Associated Problems Recent Progress Patient-Stated? Author Blood Pressure < 140/90 Blood Pressure 130/70( 024 1:19 PM CDT) Lola Serna MA documented as of this encounter Visit Diagnoses Diagnosis DAILY (obstructive sleep apnea)- Primary Obstructive sleep apnea (adult) (pediatric) Allergic rhinitis, unspecified seasonality, unspecified trigger Hypertension, benign essential Essential hypertension, benign documented in this encounter Care Teams Research Technician Relationship Specialty Start Date End Date Tamia Brooks MD [address] [place] [address] [address] [place] [address] PCP - General Internal Medicine 07/26/16 Tamia Brooks MD [address] [place] [address] [address] [place] [address] PCP - Attributed-MSSP 04/10/19 12/08/19 Yohan Barros, ZOYA [facility] [phone] Podiatry 05/24/13 Efrain Dunlap MD [facility] [facility] [address] [place] [address] Orthopedic Surgery 01/06/19 08/29/20 documented as of this encounter
--- OUTSIDE RECORDS SUMMARY | 2024-03-22 20:11 | XMS_ITS | Encounter Summary ---
Author Organization [facility] Address [address] [facility] [place] [address] Care Team Providers Care Laborer Steel Handling Name Role Phone Yohan Barros DPM Unavailable [phone] Tamia Brooks MD Primary Care Provider [phone] Efrain Dunlap MD Unavailable Tamia Brooks MD Unavailable [phone] Reason for Visit * Reason Onset Date Comments Refill Request 07/27/2020 Encounter Details Date Type Department Care Team (Late st Contact Info) Description 07/27/2020 Refill [facility] Medical [facility] - Internal Medicine [address] [facility] [address] [place] [phone] Tamia Brooks MD [address] [place] [phone] Refill Request Social History Tobacco Use [...] * Telephone Encounter - Radha Virgen - 07/27/2020 3:27 PM CDT Last appt: 01/11/2020 Next appt: 08/30/2020 Number of cancel or no shows in the last 12 months: 0 Allergies have been reviewed. Correct pharmacy is populated. Please sign RX and close encounter. documented in this encounter Plan of Treatment Upcoming Encounters Date Type Department Care Team (Late st Contact Info) Description 06/29/2024 10:00 AM CDT Office Visit [facility] - Internal Medicine [address] [facility] [address] [place] [phone] Tamia Brooks MD [address] [place] [phone] documented as of this encounter Goals Goal Patient Goal Type Associated Problems Recent Progress Patient-Stated? Author Blood Pressure < 140/90 Blood Pressure 130/70( 024 1:19 PM CDT) Lola Serna MA documented as of this encounter Visit Diagnoses Diagnosis Gastroesophageal reflux disease, unspecified whether esophagitis present documented in this encounter Care Teams Laborer Steel Handling Relationship Specialty Start Date End Date Tamia Brooks MD [address] [place] [phone] PCP - General Internal Medicine 07/26/16 Tamia Brooks MD [address] [place] [phone] PCP - Attributed-MSSP 01/09/20 03/29/21 Yohan Barros DPM [address] [place] [phone] Podiatry 05/24/13 Efrain Dunlap MD [address] [place] [address] [place] [address] Orthopedic Surgery 01/06/19 08/29/20 documented as of this encounter
--- OUTSIDE RECORDS SUMMARY | 2024-03-22 20:11 | XMS_ITS | Encounter Summary ---
Author Organization [facility] Address [address] [facility] [place] [address] Care Team Providers Care Carpentry Foreman Name Role Phone Yohan Barros DPM Unavailable [phone] Tamia Brooks MD Primary Care Provider Efrain Dunlap MD Unavailable Tamia Brooks MD Unavailable [phone] Reason for Visit * Reason Comments Urgent Care Follow-up Pneumonia Encounter Details Date Type Department Care Team (Late st Contact Info) Description 05/10/2019 1:30 PM EXPLOSIVE SPECIALIST Office Visit [facility] Medical [facility] - Internal Medicine [address] [address] Bee Garland, BREWMASTER-CERTIFIED DETENTION DEPUTY [address] [place] [phone] Pneumonia due to infectious organism, unspecified laterality, unspecified part of lung (Primary Dx) Social History Tobacco Use Types [...] Sign Reading Time Taken Comments Blood Pressure 132/76 05/10/2019 1:19 PM EXPLOSIVE SPECIALIST Pulse 95 05/10/2019 1:19 PM EXPLOSIVE SPECIALIST Temperature 37.4 ??C (99.4 ??F) 05/10/2019 1:19 PM CS T Respiratory Rate - - Oxygen Saturation 96% 05/10/2019 1:19 PM EXPLOSIVE SPECIALIST Inhaled Oxygen Concentration - - Weight 85.9 kg (189 lb 6.4 oz) 05/10/2019 1:19 P M EXPLOSIVE SPECIALIST Height 165.1 cm (5' 5 ) 05/10/2019 1:19 PM EXPLOSIVE SPECIALIST Body Mass Index 31.52 05/10/2019 1:19 PM EXPLOSIVE SPECIALIST documented in this encounter Patient Instructions * Patient Instructions* Radha Virgen 05/10/2019 1:04 PM EXPLOSIVE SPECIALIST Treatment for URI Take pain reliever such as ibuprofen or acetaminophen (Tylenol) for fever and discomfort. Follow package instructions for administration. Avoid acetaminophen if liver disease present. Avoid ibuprofenif kidney disease or stomach problems exist, or in case of . Avoid ASA if under age 20 and/or if contraindicated for other reasons. Be sure to get plenty of rest and drink 10 -12 glasses of liquid daily. Try warm liquids such as tea with lemon and honey. Take decongestants for nasal congestion, unless there is a history of hypertension. If you have hypertension you can take Coricidin HBP. May take Robitussin DM as needed for cough. Use saline nose drops as needed for nasal congestion. Remember to bend over for administration. NOSE TO TOES . Use cool vaporizer or humidifier to keep air moist, especially at night. If throat is sore, gargle several times a day with warm water or salt water. Use frozen cough drops. Avoid smoking and second hand smoke. Remember that colds are very contagious and have an incubation period of 2-5 days. Use good hygiene, wash hands, dispose of used tissues, and cover mouth when coughing or sneezing. Reasons for more concern would be fevers above 101.5 degrees or symptoms that persist beyond 10 days. If you feel like symptoms are worsening over the next couple of days, call the office for an appointment, or go to a retail clinic, or urgent care. OSIVE SPECIALIST documented in this encounter Progress Notes * Bee Garland APRN-CNP - 05/10/2019 1:30 PM CST 05/10/2019 Maura Watkins 1950 Chief Complaint Patient presents with ??? Urgent Care Follow-up Pneumonia HPI: Maura Watkins is a 69 year old year old patient of Dr. Tamia Brooks MD I am seeing this patient for the first time. Pt reported 1 week ago she started having coughing fits. Denies ever having a fever, slight sore throat. Patient presents to the office today for UC follow up. Patient was evaluated at [facility] on 05/09/2019 with chief complaint of cough, congestion, and sore throat. Patient diagnosed with Pneumonia. Patient tests/treated with Nebulizer, peak flow Patient advised to follow up with PCP At discharge from the UC, patient was given prescriptions for Albuterol, Mucinex, Doxycycline UC unable to do CXR due to limited resources Taking 200 mg Ibuprofen every time she takes the inhaler because it gives her a slight headache. Sore throat is resolving. Denies chest pain. Reports some dyspnea, dizziness, rhinorrhea Smoker: No Flu shot: Yes Health Maintenance Topic Date Due ??? DTAP/TDAP/TD VACCINES (1 - Tdap) 1959 ??? ZOSTER VACCINE (1 of 2) 1998 ??? HCC (Chart Reviewer Use Only) 02/11/2019 ??? ANNUAL MEDICARE WELLNESS VISIT 02/18/2019 ??? DIABETES-HGB A1C 07/08/2019 ??? DIABETES-EYE EXAM 12/08/2019 ??? DIABETES-FOOT EXAM WITH MONOFILAMENT 01/07/2020 ??? MAMMOGRAM 04/29/2020 ??? BONE DENSITY TESTING 03/17/2021 ??? COLON CA SCREENING 11/06/2023 ??? PNEUMOCOCCAL VACCINE 65+ Completed ??? INFLUENZA VACCINE Completed ??? HEPATITIS C SCREENING Completed ??? HIB VACCINE Aged Out ??? MENINGOCOCCAL VACCINE Aged Out Wt Readings from Last 3 Encounters: 05/10/19 85.9 kg (189 lb 6.4 oz) 04/30/19 87.5 kg (193 lb) 01/06/19 86.6 kg (191 lb) Depression: PHQ-2:TOTAL POINT SCORE: 0 PHQ-9: Current Outpatient Medications Medication Sig Dispense Refill ??? albuterol HFA (PROVENTIL;VENTOLIN;PROAIR) 108 (90 Base) MCG/ACT inhaler ??? blood glucose (ONETOUCH VERIO) test strip [...] mouth 3 times daily 270 capsule 1 ??? glucosamine-chondroitin (GLUCOSAMINE CHONDR COMPLEX) 500-400 [...] file Gets together: Not on file Attends methodist service: Not on file Active member of [...] Social History Narrative ??? Not on file ROS See pertinent positives and/or negatives in HPI. Vitals: 05/10/19 1319 BP: 132/76 Pulse: 95 Temp: 99.4 ??F (37.4 ??C) SpO2: 96% Weight: 85.9 kg (189 lb 6.4 oz) Height: 1.651 m (5' 5 ) Physical Exam Constitutional: She is oriented to person, place, and time and well-developed, well-nourished, and in no distress. HENT: Head: Normocephalic and atraumatic. Nose: Nose normal. Mouth/Throat: Posterior oropharyngeal erythema present. Eyes: EOM are normal. Neck: Normal range of motion. Neck supple. Cardiovascular: Normal rate, regular rhythm and normal heart sounds. Pulmonary/Chest: Effort normal. She has wheezes. Musculoskeletal: Normal range of motion. Lymphadenopathy: She has no cervical adenopathy. Neurological: She is alert and oriented to person, place, and time. Gait normal. Skin: Skin is warm and dry. Psychiatric: Mood, memory, affect and judgment normal. Nursing note and vitals reviewed. Labs/Imaging reviewed: N\A Impression/ Plan 1. Pneumonia due to infectious organism, unspecified laterality, unspecified part of lung New Problem -possible pneumonia vs viral uri with cough vs viral bronchitis -continue Doxycycline -may use albuterol inhaler up to 6 times daily as needed for cough -recommended Ibuprofen for muscle pain related to cough -continue mucinex and increase fluids -OTC therapies reviewed and printed on AVS - XR CHEST 2VW; Future Orders Placed This Encounter ??? XR CHEST 2VW Standing Status: Future Standing Expiration Date: 05/09/2020 Return if symptoms worsen or fail to improve. Bee Garland, BREWMASTER-CERTIFIED DETENTION DEPUTY Handouts containing literature appropriate to this visit/diagnosis given to the patient. If symptoms do not start to improve in 48 hours or if they worsen, patient(s) are instructed to call or make an appointment or go to ER if necessary. OSIVE SPECIALIST documented in this encounter Plan of Treatment Upcoming Encounters Date Type Department Care Team (Late st Contact Info) Description 06/29/2024 10:00 AM CDT Office Visit [facility] - Internal Medicine [address] [facility] [address] [place] [address] Tamia Brooks MD [address] [place] [address] [address] [place] [address] documented as of this encounter Goals Goal Patient Goal Type Associated Problems Recent Progress Patient-Stated? Author Blood Pressure < 140/90 Blood Pressure 130/70( 024 1:19 PM CDT) No Lola Neff MA documented as of this encounter Results * XR CHEST 2VW (05/10/2019 2:28 PM EXPLOSIVE SPECIALIST) Anatomical Region Laterality Modality Chest Radiographic Aimee ging 05/10/2019 2:29 PM EXPLOSIVE SPECIALIST Impressions 05/10/2019 2:29 PM EXPLOSIVE SPECIALIST No active disease. Reading Radiologist: Janes Alcantar MD on 05/10/2019 at 2:29 PM Narrative 05/10/2019 2:29 PM EXPLOSIVE SPECIALIST Chest 2 views INDICATION: Productive cough Findings: [...] on 05/10/2019 at 2:29 PM Bee Garland BREWMASTER-CERTIFIED DETENTION DEPUTY DIAGNOSTIC IMAG ING ORDERABLES documented in this encounter Visit Diagnoses Diagnosis Pneumonia due to infectious organism, unspecified laterality, unspecified part of lung- Primary Pneumonia due to infectious organism, unspecified laterality, unspecified part of lung documented in this encounter Care Teams Carpentry Foreman Relationship Specialty Start Date End Date Tamia Brooks MD [address] [place] [address] PCP - General Internal Medicine 07/26/16 Tamia Brooks MD [address] [place] [address] PCP - Attributed-MSSP 04/10/19 12/08/19 Yohan Barros, DPM [address] [phone] Podiatry 05/24/13 Efrain Dunlap MD [address] [place] [phone] Orthopedic Surgery 01/06/19 08/29/20 documented as of this encounter
--- OUTSIDE RECORDS SUMMARY | 2024-03-22 20:11 | XMS_ITS | Encounter Summary ---
Author Organization [facility] Address [address] [facility] [place] [address] Care Team Providers Care Automatic Machines Supervisor Name Role Phone Yohan Barros DPM Unavailable [phone] Tamia Brooks MD Primary Care Provider [phone] Tamia Brooks MD Unavailable [phone] Reason for Visit * Reason Comments URI Encounter Details Date Type Department Care Team (Late st Contact Info) Description 03/29/2021 2:00 PM VICE PRESIDENT FIXED INCOME Office Visit [facility] - Internal Medicine [address] [place] [phone] Salima Cooper MD Viral upper respiratory tract infection (Primary Dx); Costochondritis Social History Tobacco Use Types Packs/Day Years [...] COVID-19? No / Unsure 03/07/2021 2:45 PM VICE PRESIDENT FIXED INCOME documented as of this encounter Last Filed Vital Signs Vital Sign Reading Time Taken Comments Blood Pressure 126/74 03/29/2021 1:34 PM VICE PRESIDENT FIXED INCOME Pulse 82 03/29/2021 1:34 PM VICE PRESIDENT FIXED INCOME Temperature 36.4 ??C (97.6 ??F) 03/29/2021 1:34 PM CS T Respiratory Rate - - Oxygen Saturation 97% 03/29/2021 1:34 PM VICE PRESIDENT FIXED INCOME Inhaled Oxygen Concentration - - Weight 90.4 kg (199 lb 6.4 oz) 03/29/2021 1:34 P M VICE PRESIDENT FIXED INCOME Height 157.5 cm (5' 2 ) 03/29/2021 1:34 PM VICE PRESIDENT FIXED INCOME Body Mass Index 36.47 03/29/2021 1:34 PM VICE PRESIDENT FIXED INCOME documented in this encounter Progress Notes * Salima Cooper MD - 03/29/2021 1:57 PM CST Images from the original note were not included. [facility]- Division of Internal Medicine Dr. Salima Cooper Follow Up Office Visit Reason for Visit: Acute visit for URI History: Past Medical History: Diagnosis Date ??? Anhydrotic [...] ??? Cancer - Breast Maternal Aunt 70 Above history reviewed with patient and is unchanged from previous visit. Allergies: Allergies Allergen Reactions ??? Delgado Nausea and/or Vomiting and Dizziness HPI: She saw a [facility] doc and was diagnosed with a URI. This was three weeks ago. She was prescribed a doxycycline, prednisone and tessalon pearls. Was told to follow up with us as needed. Since she has been ill, has been resting, not going to gym. Feels congestion across face, jaws, and ears. But now has been having chest pain in the center of her chest, which is what scared her. The pain is worse towards the evening, and talking also makes it worse. Walking gets her breathless, but does not worsen the pain. She is still coughing as well. She has significant coughing flares. She is bringing up mucous. She is also taking mucinex DM. GERD Well controlled. Her neighbor , and this has been stressing her out because he had similar symptoms. Home Medications: Current Outpatient Medications on File Prior to Visit Medication Sig Dispense Refill ??? calcium 600 MG tablet Take 2 Tabs by mouth daily with food ??? Cetirizine HCl (ZYRTEC PO) Take by mouth nightly as needed ??? Cholecalciferol (VITAMIN D-3) 1000 UNITS Take by mouth 2 times daily ??? Dextromethorphan-Guaifenesin (MUCINEX DM MAXIMUM STRENGTH PO) Take by mouth as needed ??? famotidine (PEPCID) 20 MG tablet Take [...] Gastroesophageal Reflux Disease 90 tablet 3 ??? RABEprazole EC (ACIPHEX) 20 MG tablet Take 1 (one) tablet by mouth 2 times daily 180 tablet 1 ??? rosuvastatin (CRESTOR) 10 MG tablet TAKE 1 TABLET ONCE DAILY FOR HIGH AMOUNT OF FATS IN THE BLOOD 90 tablet 0 No current facility-administered medications on file prior to visit. Care team: Patient Care Team: Tamia Brooks MD as PCP - General (Internal Medicine) Tamia Brooks MD as PCP - Attributed-[facility] Yohan Barros DPM (Podiatry) Physical Examination: Temp Readings from Last 3 Encounters: 03/29/21 97.6 ??F (36.4 ??C) 02/16/21 98.1 ??F (36.7 ??C) (Temporal) 08/30/20 97.9 ??F (36.6 ??C) Pulse Readings from Last 3 Encounters: 03/29/21 82 02/16/21 83 08/30/20 84 BP Readings from Last 3 Encounters: 03/29/21 126/74 02/16/21 142/90 08/30/20 120/80 Wt Readings from Last 3 Encounters: 03/29/21 90.4 kg (199 lb 6.4 oz) 02/16/21 90.3 kg (199 lb) 08/30/20 90.3 kg (199 lb) Body mass index is 36.47 kg/m??. Height: 157.5 cm (5' 2 ) GENERAL: Well groomed, well developed, overweight habitus. NAD, pleasant, conversant. NECK: Negative for masses. Thyroid normal without enlargement, tenderness, nodules. LYMPHATICS: Negative for lymphadenopathy in submandibular, anterior cervical chain, supraclavicular, and infraclavicular regions. RESPIRATORY: Normal effort. Breath sounds clear bilaterally without wheezing or crackles. CV: Regular rate and rhythm. Negative for murmurs. No extra heart sounds. No edema of LEs. ABDOMEN: Soft, nontender and without masses. No hepatosplenomegaly. BS normal. No hernia present. MS: Digits and nails without synovial swelling or deformities. No cyanosis, no clubbing. Muscle strength normal in BUE and BLE, 5/5 with normal muscle tone. NEURO: Cranial nerves 2-12 intact. Gait normal. PSYCH: Normal judgement and insight. Mood normal, affect normal. Test Results Reviewed: Recent Labs Component Name 01/12/21 0920 02/11/20 0800 10/19/18 1120 CREATININE 1.35* 1.33* 1.18* BUN 27 20 18 SODIUM 142 144 143 POTASSIUM 4.9 4.4 4.9 Recent Labs Component Name 01/12/21 0920 02/11/20 0800 10/19/18 1120 EGFR 39* 40* 47* EGFRAFR 45* 46* 54* Recent Labs Component Name 02/11/20 0800 10/19/18 1120 04/11/18 0000 09/26/16 0802 AST 16 - ALT 19 - ALKPHOS 111 111 3.5 131* TBIL 0.3 <0.2 - 0.5 Recent Labs Component Name 01/12/21 0921 02/11/20 0800 10/19/18 1120 WBC 7.2 5.9 6.8 HGB 12.8 13.4 12.5 PLTCOUNT 284 289 281 MCV 87 88 86 Recent Labs Component Name 10/19/18 1120 [id number] 40.8 The above lab results were reviewed by me today and discussed with the patient. Patient Active Problem List Diagnosis Date Noted ??? Diet-controlled diabetes mellitus 08/30/2020 Priority: Not Prioritized ??? Type 2 diabetes mellitus with stage 3 chronic kidney disease, without long- term current use of insulin 10/23/2018 Priority: Not Prioritized ??? Chronic diastolic congestive heart failure 05/27/2017 Priority: Not Prioritized Echo 05/2017: ef 60%, grade 1 diastolic dysfunction, and elevated filling pressures ??? Class 2 severe obesity due to excess calories with serious comorbidity and body mass index (BMI) of 35.0 to 35.9 in adult 05/13/2017 Priority: Not Prioritized ??? BMI 35.0-35.9,adult 05/13/2017 Priority: Not Prioritized ??? DAILY (obstructive sleep apnea) 11/22/2016 Priority: Not Prioritized ??? Osteopenia 09/27/2016 Priority: Not Prioritized ??? Chronic insomnia 07/19/2014 ??? CKD (chronic kidney disease) stage 3, GFR 30-59 ml/min 06/23/2014 Component Latest Ref Rng & Units 02/11/2020 10/19/2018 eGFR by MDRD >59 mL/min/1.73 40 (L) 47 (L) GFR 7--18, 3-15-18 ??? Situational mixed anxiety and depressive disorder 01/17/2014 ??? Primary osteoarthritis of both knees 10/27/2012 ??? Prediabetes 10/27/2012 ??? Anhydrotic dermatitis of foot 04/27/12 04/27/2012 ??? Allergic rhinitis 09/20/2008 ??? Hypertension, benign essential 09/20/2008 ??? Hyperlipidemia 09/20/2008 Assessment and Plan: 1. Viral upper respiratory tract infection -acute bronchitis; albuterol sent in -CXR normal 2. Costochondritis -no red flag or cardiac signs with her chest pain -showed her stretches, we even practiced them together Health Maintenance Topic Date Due ??? DTAP/TDAP/TD VACCINES (1 - Tdap) Never done ??? ZOSTER VACCINE (1 of 2) Never done ??? DIABETES-EYE EXAM 12/08/2019 ??? MAMMOGRAM 04/29/2020 ??? DIABETES-HGB A1C 03/01/2021 ??? BONE DENSITY TESTING 03/17/2021 ??? ANNUAL MEDICARE WELLNESS VISIT 02/16/2022 ??? DIABETES-FOOT EXAM WITH MONOFILAMENT 02/16/2022 ??? HCC (Chart Reviewer Use Only) 03/29/2022 ??? Colorectal Cancer Screening 11/06/2023 ??? PNEUMOCOCCAL VACCINE 65+ Completed ??? INFLUENZA VACCINE Completed ??? HEPATITIS C SCREENING Completed ??? COVID-19 VACCINE Completed ??? HEPATITIS B VACCINE Aged Out ??? HIB VACCINE Aged Out ??? MENINGOCOCCAL VACCINE Aged Out Orders Placed This Encounter ??? albuterol HFA (PROVENTIL; VENTOLIN; PROAIR) 108 (90 Base) MCG/ACT inhaler Follow up: Salima Cooper MD 03/29/2021 2:14 PM PRESIDENT FIXED INCOME documented in this encounter Plan of Treatment Upcoming Encounters Date Type Department Care Team (Late st Contact Info) Description 06/29/2024 10:00 AM CDT Office Visit [facility] - Internal Medicine [address] [facility] [address] [place] [phone] Tamia Brooks MD [address] [place] [address] [place] [phone] documented as of this encounter Goals Goal Patient Goal Type Associated Problems Recent Progress Patient-Stated? Author Blood Pressure < 140/90 Blood Pressure 130/70( 024 1:19 PM CDT) Lola Serna MA documented as of this encounter Visit Diagnoses Diagnosis Viral upper respiratory tract infection- Primary Acute upper respiratory infections of unspecified site Costochondritis Tietze's disease documented in this encounter Care Teams Automatic Machines Supervisor Relationship Specialty Start Date End Date Tamia Brooks MD [address] [place] [phone] PCP - General Internal Medicine 07/26/16 Tamia Brooks MD [address] [place] [phone] PCP - Attributed-MSSP 01/09/20 03/29/21 Yohan Barros DPM [address] [phone] Podiatry 05/24/13 documented as of this encounter
--- OUTSIDE RECORDS SUMMARY | 2024-03-22 20:11 | XMS_ITS | Encounter Summary ---
Author Organization [facility] Address [address] [facility] [place] [address] Care Team Providers Care Cashier Or Checker Stock Clerk Name Role Phone Yohan Barros DPM Unavailable [phone] Tamia Brooks MD Primary Care Provider [phone] Efrain Dunlap MD Unavailable Tamia Brooks MD Unavailable [phone] Reason for Visit * Reason Onset Date Comments Outreach Preventive Care 03/15/2020 Encounter Details Date Type Department Care Team (Late st Contact Info) Description 03/15/2020 Patient Outreach [facility] Medical [facility] - Care Coordination [address] [place] [phone] Estela Caal Outreach Preventive Care Social History Tobacco Use [...] encounter Miscellaneous Notes * Telephone Encounter - Estela Caal - 03/15/2020 2:11 PM CST Chart analysis for Annual Care Gap Review. Health Maintenance reviewed for open care gaps and closure process initiated. HM items to be addressed: Mammogram, A1C and Diabetic Eye Exam Left voice mail and sent my chart message. No further outreach needed Health Maintenance Due Topic Date Due ??? DTAP/TDAP/TD VACCINES (1 - Tdap) 1967 ??? ZOSTER VACCINE (1 of 2) 1998 ??? DIABETES-HGB A1C 07/08/2019 ??? DIABETES-EYE EXAM 12/08/2019 ??? MAMMOGRAM 04/29/2020 MyChart Enrollment: Already Active Patient was notified of the following health maintenance care gaps, and instructed on the importance of routine wellness testing. ??? Diabetic Measures o Eye Exam: HM remains due 12/08/19 - Exam Location: N/A o A1C: HM remains due o Urine Microalbumin: results are current and available in the chart ??? Diagnostic Testing o Mammogram: HM remains due 04/29/20 o Colon CA Screen: results are current and available in the chart 11/06/23 ??? Immunization o Flu: results are current and available in the chart ??? AWV: already completed 01/11/20 Estela Caal 03/15/2020 2:11 PM [address] PUMP OILER documented in this encounter Plan of Treatment Upcoming Encounters Date Type Department Care Team (Late st Contact Info) Description 06/29/2024 10:00 AM CDT Office Visit [facility] - Internal Medicine [address] [place] [address] [place] [phone] Tamia Brooks MD [address] [place] [address] [place] [phone] documented as of this encounter Goals Goal Patient Goal Type Associated Problems Recent Progress Patient-Stated? Author Blood Pressure < 140/90 Blood Pressure 130/70( 024 1:19 PM CDT) No Lola Neff MA documented as of this encounter Visit Diagnoses Not on filedocumented in this encounter Care Teams Cashier Or Checker Stock Clerk Relationship Specialty Start Date End Date Tamia Brooks MD [address] [place] [phone] PCP - General Internal Medicine 07/26/16 Tamia Brooks MD [address] [place] [phone] PCP - Attributed-MSSP 01/09/20 03/29/21 Yohan Barros DPM [address] [phone] Podiatry 05/24/13 Efrain Dunlap MD [address] [place] [phone] Orthopedic Surgery 01/06/19 08/29/20 documented as of this encounter
--- OUTSIDE RECORDS SUMMARY | 2024-03-22 20:11 | XMS_ITS | Encounter Summary ---
Author Organization [facility] Address [address] [facility] [place] [address] Care Team Providers Care Tubing Tester Name Role Phone Yohan Barros DPM Unavailable [phone] Tamia Brooks MD Primary Care Provider [phone] Efrain Dunlap MD Unavailable Tamia Brooks MD Unavailable [phone] Encounter Details Date Type Department Care Team (Latest Contact Info) Description 01/11/2020 Travel Social History Tobacco Use Types Packs/Day [...] COVID-19? No / Unsure 01/11/2020 3:24 PM [employer] CL[employer] documented as of this encounter Plan of Treatment Upcoming Encounters Date Type Department Care Team (Late st Contact Info) Description 06/29/2024 10:00 AM CDT Office Visit [facility] - Internal Medicine [address] [place] [address] [place] [phone] Tamia Brooks MD [address] [place] [address] [place] [phone] documented as of this encounter Goals Goal Patient Goal Type Associated Problems Recent Progress Patient-Stated? Author Blood Pressure < 140/90 Blood Pressure 130/70( 024 1:19 PM CDT) Lola Serna MA documented as of this encounter Visit Diagnoses Not on filedocumented in this encounter Care Teams Tubing Tester Relationship Specialty Start Date End Date Tamia Brooks MD [address] [place] [phone] PCP - General Internal Medicine 07/26/16 Tamia Brooks MD [address] [place] [phone] PCP - Attributed-MSSP 01/09/20 03/29/21 Yohan Barros DPM [address] [place] [phone] Podiatry 05/24/13 Efrain Dunlap MD [address] [place] [phone] Orthopedic Surgery 01/06/19 08/29/20 documented as of this encounter
--- OUTSIDE RECORDS SUMMARY | 2024-03-22 20:11 | XMS_ITS | Encounter Summary ---
Author Organization [facility] Address [address] [facility] [place] [address] Care Team Providers Care Director Safety Council Name Role Phone Yohan Barros DPM Unavailable [phone] Tamia Brooks MD Primary Care Provider [phone] Tamia Brooks MD Unavailable [phone] Reason for Visit * Reason Comments Hypertension Diabetes Type 2 Follow-up MEDICATION REFILL Encounter Details Date Type Department Care Team (Latest Contact Info) Description 08/30/2020 1:20 PM CDT Office Visit [facility] - Internal Medicine [address] [place] [phone] Tamia Brooks MD [address] [place] [phone] Gastroesophageal reflux disease without esophagitis (Primary Dx); History of gastritis; Chronic diastolic congestive heart failure (HCC); Diet-controlled diabetes mellitus (HCC); Type 2 diabetes mellitus with stage 3a chronic kidney disease, without long-term current use of insulin (HCC); Allergic rhinitis, unspecified seasonality, unspecified trigger; BMI 35.0-35.9,adult; Chronic insomnia; Stage 3b chronic kidney disease (HCC); Hyperlipidemia, unspecified hyperlipidemia type; Hypertension, benign essential; DAILY (obstructive sleep apnea); Osteopenia, unspecified location; Anhydrotic dermatitis of foot 04/27/12; Primary osteoarthritis of both knees; Situational mixed anxiety and depressive disorder; Screening mammogram, encounter for Social History Tobacco [...] Sign Reading Time Taken Comments Blood Pressure 120/80 08/30/2020 1:27 PM CDT Pulse 84 08/30/2020 1:27 PM CDT Temperature 36.6 ??C (97.9 ??F) 08/30/2020 1:27 PM CD T Respiratory Rate - - Oxygen Saturation 96% 08/30/2020 1:27 PM CDT Inhaled Oxygen Concentration - - Weight 90.3 kg (199 lb) 08/30/2020 1:27 PM CDT Height 160 cm (5' 2.99 ) 08/30/2020 1:27 PM CDT Body Mass Index 35.26 08/30/2020 1:27 PM CDT documented in this encounter Patient Instructions * Patient Instructions* Larisa Cruz - 08/30/2020 1:20 PM CDT Please arrive 15 minutes early to your next appointment. Following your visit, you may receive a survey via email or U.S. Mail about your experience with us. We encourage you to respond to this confidential survey about our care. We at [facility] are committed toalways providing you with the most exceptional care. Your feedback helps us provide quality serviceat every visit. Increase your strength training. Try aciphex - lansoprazole instead of nexium. Go see Dr. Calix Labs: You have labs pending. You do need to be fasting for this. Please go to your nearest [facility] to get this done at your convenience. There is one in our building ([address] [place] [address]), [address]. The orders are electronic so you do not need any paperwork. You will need to bring your photo id and insurance card to the lab. Get done 1 week before next visit. Caring for Your Diabetes Tips for Healthy Eating Eating healthy foods are a العلي part in managing diabetes. It is especially important because what, how much, and when you eat play a big role in controlling your blood glucose, weight, blood pressureand cholesterol. Some important tips are below: ??? Eat meals at the same time each day. Don???t skip meals. This will keep your blood glucose levels more level throughout the day and help control hunger. ??? Eat about the same amount of foods every day, especially carbohydrates. ??? Use less fat, sugar, salt and alcohol. ??? Eat a wide variety of foods. This will help fuel your body and make sure you get the right amount of nutrients. ??? All diabetics should have their own meal plan based on their personal goals, foods they like toeat and their lifestyle. If you need help with developing your meal plan, ask your provider for a referral to see a dietitian. ??? Maintain a healthy weight through diet and exercise ??? Blood Sugar - An important part of your diabetes care is knowing your blood sugar. Your blood sugar can and should be monitored regularly, at the discretion of your doctor, in order to make the most of your diabetic care. A printable blood sugar log can be found by following the links below: o Go to www.diabetes.org and click on ???Living with Diabetes.?? o Under the [facility], click ? Blood Glucose Testing.? o Click ???Checking Your Blood Glucose,?? and this will give you both an online tool and a printable blood glucose log. o The printable blood glucose log can also be accessed here: printable blood glucose log The following resources can help you and the people close to you learn more about diabetes and how to manage your diabetes: ??? [place] Diabetes Association: www.diabetes.org 1-972-NUJXZXEU ( ) ??? [place] Diabetes Association-Support group line: www.professional.diabetes.org ??? [place] Heart Association: www.heart.org or 0-928-PSV-[place]-1 ( ) ??? [employer] MyPlate: www.Mobvoimyplate.gov Caring for Your High Blood Pressure Exercise ??? Exercising makes the heart stronger, lowers blood pressure, and keeps you healthy. ??? Check with your provider before starting [...] are also physical activities. IT ALL COUNTS!!!! Where can I go for more information? [place] Heart Association National Center: http://www.americanheart.org 1. In the top header, click ???Conditions?? . 2. In the top header, click ???high blood pressure.?? 3. For a printable blood pressure tracker, scroll toward the bottom of the page to Related Tools, and click ???HBP Trackers.?? 0-209-THL-USA-1 or ( ) National Heart, Lung and Blood [place]: http://www.nhlbi.nih.gov/health/infoctr/index.htm documented in this encounter Progress Notes * Larisa Cruz - 08/30/2020 2:42 PM CDT Office Visit on 08/30/20 HEMOGLOBIN A1C - POINT OF CARE (HgbA1C) Result Value Ref Range Hemoglobin A1c POCT 6.2 % Expiration Date 05-23-2020 Lot # [id number] QC Verified Yes Yes * Tamia Brooks MD - 08/30/2020 1:38 PM CDT Tamia Brooks MD [facility] - Department of Internal Medicine [facility] [facility], [address] [place] [address] History of Present Illness Maura Watkins is a 70 year old female who presents to the office Chief Complaint Patient presents with ??? Hypertension ??? Diabetes Type 2 Follow-up ??? MEDICATION REFILL Here for follow up on chronic medical problems. GERD - still getting sxs, worse at night. - has failed protonix, nexium, and prilosec Last EGD 2016 with gastritis. Follows w/ Dr. Calix ?? HTN/CKD3 - BP at home: not checking - medication compliance is good - dietary compliance is good - denies CP, SOB, LE edema BP Readings from Last 3 Encounters: 08/30/20 120/80 01/11/20 140/80 05/10/19 132/76 HLD - on statin - denies myalgias The 10-year ASCVD risk score (Han ZHU Jr., et al., 2013) is: 25.7% Values used to calculate the score: Age: 70 years Sex: Female Is Non- : No Diabetic: Yes Tobacco smoker: No Systolic Blood Pressure: 120 mmHg Is BP treated: Yes HDL Cholesterol: 40 mg/dL Total Cholesterol: 201 mg/dL ?? DDD lumbar - doing ok. Not needing meds ?? DAILY - on CPAP nightly ?DM2 - diet controlled - not checking BG - a1c today 6.2% - BG at home: 100-110 - hypoglycemia/symptoms: none - tests 1-2 ??per day ?? Diet: Smaller portions, more veggies, and voss diet Exercise: not currently Sleep: is good. Independent in ADLs No DME Mammogram: due Wt Readings from Last 3 Encounters: 08/30/20 90.3 kg (199 lb) 01/11/20 88.7 kg (195 lb 9.6 oz) 05/10/19 85.9 kg (189 lb 6.4 oz) Weight change: + 4 lbs since the last visit here. Labs reviewed: Did them today. Recent Labs Component Name 02/11/20 0800 10/19/18 1120 04/11/18 0000 09/26/17 0935 SODIUM 144 143 142 147* POTASSIUM 4.4 4.9 4.5 5.1 CHLORIDE 101 107* 104 105 CO2 24 19* 22 23 BUN 20 18 18 18 CREATININE 1.33* 1.18* - 1.27* GLUCOSE 121* 96 113 123* CALCIUM 10.1 9.7 9.8 10.4* Recent Labs Component Name 10/19/18 1120 09/26/16 0802 07/13/14 0847 TSH 2.210 2.080 2.060 Recent Labs Component Name 02/11/20 0800 10/19/18 1120 04/17/17 0911 WBC 5.9 6.8 5.7 HGB 13.4 12.5 12.7 HCT 40.4 37.8 39.9 PLTCOUNT 289 281 302 Recent Labs Component Name 08/30/20 1441 01/06/19 0000 10/19/18 1120 HGBA1C 6.2 5.8 6.5* Recent Labs Component Name 02/11/20 0800 10/19/18 1120 09/26/16 0802 CHOL 201* 198 181 TRIG 196* 211* 130 HDL 40 43 47 LDLCALC 126* 113* 108* No results for input(s): MICROALBUGML in the last 00520 hours. Recent Labs Component Name 02/11/20 0800 MICROALBCREA 13 No results for input(s): INR in the last 75060 hours. Past Medical, Surgical, Social, and Family [...] >59 mL/min/1.73 40 (L) 47 (L) GFR 7-20-18, 3-15-18 ??? Situational mixed anxiety and depressive [...] 1 TABLET DAILY 90 tablet 1 ??? metoclopramide (REGLAN) 5 [...] OF FATS IN THE BLOOD 90 tablet 1 No current facility-administered medications for this visit. Immunization History Administered Date(s) Administered ??? FLU VACCINE IIV INC ANTIG PF IM 01/06/2015, 12/29/2015, 12/31/2018, 12/30/2019 ??? FLU VACCINE TRI IIV3 SPLIT IM (AFLURIA) 11/17/2008, 01/10/2012 ??? FLU VACCINE TRI IIV3 SPLIT PF IM (FLUVIRIN) 12/03/2017 ??? FLU, HISTORIC VACCINE 12/30/2019 ??? INFLUENZA 11/17/2008, 12/08/2009, 01/06/2011, 01/10/2012, 01/13/2013, 01/13/2013, 11/22/2013, 01/06/2015, 12/29/2015 ??? Influenza Vaccine Pf Cell Cult (18+yrs) IM 12/03/2017 ??? MODERNA SARS-COV-2 COVID-19 VACCINE 0.5ML 05/01/2020, 05/29/2020 ??? PNEUMOCOCCAL PPSV23 01/08/2010, 09/16/2016 ??? Pneumococcal Pcv13 Conj 07/10/2015 Review of Systems As noted in HPI Physical Examination Vitals: 08/30/20 1327 BP: 120/80 Pulse: 84 Temp: 97.9 ??F (36.6 ??C) SpO2: 96% Weight: 90.3 kg (199 lb) Height: 1.6 m (5' 2.99 ) CrCl cannot be calculated (Patient's most recent lab result is older than the maximum 15 days allowed.). . BMI Readings from Last 3 Encounters: 08/30/20 35.26 kg/m?? 01/11/20 32.55 kg/m?? 05/10/19 31.52 kg/m?? General appearance: alert and NAD. Obese. SKIN: No suspicious lesions are noted on the exposed skin. EYES: Extraocular muscle movements are intact. Pupils are equal, round, and reactive to light. Conjunctiva are without significant erythema. HEENT: Auricles are intact without erythema. Hearing is intact to conversational tone. Tympanic membranes are intact without erythema. NECK: No thyromegaly. No cervical adenopathy. [...] normal all 4 extrem. Assessment and Plan 1. Gastroesophageal reflux disease without esophagitis 2. History of gastritis - uncontrolled - d/c nexium. - start aciphex - continue reglan - f/u with Dr. Calix - RISK ADJUSTED VISIT - RABEprazole EC (ACIPHEX) 20 MG tablet; Take 1 (one) tablet by mouth 2 times daily Dispense: 180 tablet; Refill: 1 3. Chronic diastolic congestive heart failure - controlled - continue current medications - HM RISK ADJUSTED VISIT 4. Diet-controlled diabetes mellitus 5. Type 2 diabetes mellitus with stage 3a chronic kidney disease, without long- term current use of insulin - a1c increased. No need for meds. Lifestyle changes encouraged. - HM RISK ADJUSTED VISIT - HEMOGLOBIN A1C - POINT OF CARE (HgbA1C) 6. Allergic rhinitis, unspecified seasonality, unspecified trigger - controlled - continue current medications - HM RISK ADJUSTED VISIT 7. BMI 35.0-35.9,adult - increase exercise and improve diet. 120 minutes of aerobic activity and 1-2 days of strength training per week was recommended. Pt advised to work up to this level as tolerated. - HM RISK ADJUSTED VISIT 8. Chronic insomnia - stable - will monitor - HM RISK ADJUSTED VISIT 9. Stage 3b chronic kidney disease - controlled - avoid nephrotoxic medications - HM RISK ADJUSTED VISIT - BASIC METABOLIC PANEL (BMP) - CBC WITH DIFFERENTIAL 10. Hyperlipidemia, unspecified hyperlipidemia type - controlled - continue current medications - HM RISK ADJUSTED VISIT - LIPID PROFILE (LIPID PANEL) 11. Hypertension, benign essential - controlled - continue current medications - HM RISK ADJUSTED VISIT 12. DAILY (obstructive sleep apnea) - controlled - continue CPAP - HM RISK ADJUSTED VISIT 13. Osteopenia, unspecified location - HM RISK ADJUSTED VISIT 14. Anhydrotic dermatitis of foot 04/27/12 - HM RISK ADJUSTED VISIT 15. Primary osteoarthritis of both knees - HM RISK ADJUSTED VISIT 16. Situational mixed anxiety and depressive disorder - HM RISK ADJUSTED VISIT 17. Screening mammogram, encounter for - HM RISK ADJUSTED VISIT - MAMMO BILAT SCREENING; Future The above was discussed with the patient and understanding was voiced. Patient is in agreement withthe above plan HM: Health Maintenance Topic Date Due ??? DTAP/TDAP/TD VACCINES (1 - Tdap) Never done ??? ZOSTER VACCINE (1 of 2) Never done ??? DIABETES-EYE EXAM 12/08/2019 ??? MAMMOGRAM 04/29/2020 ??? ANNUAL MEDICARE WELLNESS VISIT 01/10/2021 ??? DIABETES-FOOT EXAM WITH MONOFILAMENT 01/10/2021 ??? DIABETES-HGB A1C 03/01/2021 ??? HCC (Chart Reviewer Use Only) 03/15/2021 ??? BONE DENSITY TESTING 03/17/2021 ??? Colorectal Cancer Screening 11/06/2023 ??? PNEUMOCOCCAL VACCINE 65+ Completed ??? INFLUENZA VACCINE Completed ??? HEPATITIS C SCREENING Completed ??? COVID-19 VACCINE Completed ??? DEPRESSION SCREENING Completed ??? HEPATITIS B VACCINE Aged Out ??? HIB VACCINE Aged Out ??? MENINGOCOCCAL VACCINE Aged Out Return to office: Return for 4-6 months AWV (ok to see LINE PILOT) . or sooner if needed. documented in this encounter Plan of Treatment Upcoming Encounters Date Type Department Care Team (Late st Contact Info) Description 06/29/2024 10:00 AM CDT Office Visit [facility] - Internal Medicine [address] [place] [phone] Tamia Brooks MD [address] [place] [phone] documented as of this encounter Goals Goal Patient Goal Type Associated Problems Recent Progress Patient-Stated? Author Blood Pressure < 140/90 Blood Pressure 130/70( 024 1:19 PM CDT) No Lola Neff MA documented as of this encounter Procedures Procedure Name Priority Date/Time Associated Diagnosis Comments CBC W AUTO DIFFERENTIAL Routine 01/12/2021 9:21 AM CDT Stage 3b chronic kidney disease (HCC) BASIC METABOLIC PANEL (CALCIUM TOTAL) Routine 01/12/2021 9:20 AM CDT Stage 3b chronic kidney disease (HCC) LIPID PROFILE Routine 01/12/2021 9:20 AM CDT Hyperlipidemia, unspecified hyperlipidemia type HEMOGLOBIN A1C - POINT OF CARE (AMB) Routine 08/30/2020 2:41 PM CDT Type 2 diabetes mellitus with stage 3a chronic kidney disease, without long-term current use of insulin (HCC) documented in this encounter Results * (ABNORMAL) CBC WITH DIFFERENTIAL (01/12/2021 9:21 AM CDT) WBC 7.2 3.4 - 10.8 x10E3/uL [facility] INSURANCE BILL RBC 4.34 3.77 - 5.28 x10E6/uL [facility] INSURANCE BILL Hemoglobin 12.8 11.1 - 15.9 g/dL [facility] INSURANCE BILL Hematocrit 37.8 34.0 - 46.6 % [facility] INSURANCE BILL MCV 87 79 - 97 fL [facility] INSURANCE BILL MCH 29.5 26.6 - 33.0 pg [facility] INSURANCE BILL MCHC 33.9 31.5 - 35.7 g/dL [facility] INSURANCE BILL RDW 13.0 11.7 - 15.4 % [facility] INSURANCE BILL Platelet Count 284 150 - 450 x10E3/uL [facility] INSURANCE BILL Granulocytes % 56 Not Estab. % [facility] INSURANCE BILL Lymphocytes % 25 Not Estab. % [facility]URANCE BILL Monocytes % 10 Not Estab. % [facility] INSURANCE BILL Eosinophils % 7 Not Estab. % [facility] INSURANCE BILL Basophils % 2 Not Estab. % [facility] INSURANCE BILL Immature Cells NOT NEEDED [facility] INSURANCE BILL Comment:Ancillary determined the test is not needed. Granulocytes Absolute 4.0 1.4 - 7.0 x10E3/uL [facility] INSURANCE BILL Lymphocytes Absolute 1.8 0.7 - 3.1 x10E3/uL [facility] INSURANCE BILL Monocytes Absolute 0.7 0.1 - 0.9 x10E3/uL [facility] INSURANCE BILL Eosinophils Absolute 0.5(H) 0.0 - 0.4 x10E3/uL [facility] INSURANCE BILL [...] needed. Blood BLOOD SPECIMEN / Unknown 01/12/2021 9:21 AM CDT 01/12/2021 Narrative Resulting Agency Comment Lab Testing performed at: [facility] [facility] [id number] Tamia Brooks MD LAB - HEMATOLOGY ORD ERABLES [facility] INSURANCE BILL [address] [place] [address] * (ABNORMAL) LIPID PROFILE (LIPID PANEL) (01/12/2021 9:20 AM CDT) Cholesterol 166 100 - 199 mg/dL [facility] [...] Resulting Agency Comment Lab Testing performed at: [facility] [address] [facility] [id number] Tamia Brooks MD LAB - CHEMISTRY ORDE RABWALT Performing Organization Address City/[facility]/ZIP Co de Phone Number [facility] INSURANCE BILL [address] [place] [address] * (ABNORMAL) BASIC METABOLIC PANEL (BMP) (01/12/2021 9:20 AM CDT) Glucose 111(H) 65 - 99 mg/dL [facility] INSURANCE BILL BUN 27 8 - 27 mg/dL [facility] INSURANCE BILL Creatinine 1.35(H) 0.57 - 1.00 mg/dL [facility] INSURANCE BILL eGFR by MDRD 39(L) >59 mL/min/1. 73 [facility] INSURANCE BILL eGFR by MDRD 45(L) >59 mL/min/1. 73 [facility] INSURANCE BILL Comment: In accordance with recommendations from the NKF-ASN Task force, [facility] the process [facility] [...] Resulting Agency Comment Lab Testing performed at: [facility] [facility] [id number] Tamia Brooks MD LAB - CHEMISTRY ORDCarl [facility] INSURANCE BILL [address] [place] [address] * HEMOGLOBIN A1C - POINT OF CARE (HgbA1C) (08/30/2020 2:41 PM CDT) Hemoglobin A1c POCT 6.2 % [facility] Expiration Date 05-23-[address] [facility] Lot # [id number] [facility] QC Verified Yes Yes [facility] Blood BLOOD SPECIMEN / Unknown 08/30/2020 2:41 PM CDT Tamia Brooks MD LAB - POINT OF CARE ORDERABLES [facility] [address] [phone] documented in this encounter Visit Diagnoses Diagnosis Gastroesophageal reflux disease without esophagitis- Primary Esophageal reflux History of gastritis Personal history of other diseases of digestive system Chronic diastolic congestive heart failure (HCC) Chronic diastolic heart failure Diet-controlled diabetes mellitus (HCC) Type 2 diabetes mellitus with stage 3a chronic kidney disease, without long-term current use of insulin (HCC) Allergic rhinitis, unspecified seasonality, unspecified trigger BMI 35.0-35.9,adult Body Mass Index 35.0-35.9, adult Chronic insomnia Insomnia, unspecified Stage 3b chronic kidney disease (HCC) Hyperlipidemia, unspecified hyperlipidemia type Hypertension, benign essential Essential hypertension, benign DAILY (obstructive sleep apnea) Obstructive sleep apnea (adult) (pediatric) Osteopenia, unspecified location Anhydrotic dermatitis of foot 04/27/12 Contact dermatitis and other eczema, due to unspecified cause Primary osteoarthritis of both knees Primary localized osteoarthrosis, lower leg Situational mixed anxiety and depressive disorder Adjustment disorder with mixed anxiety and depressed mood Screening mammogram, encounter for documented in this encounter Care Teams Director Safety Council Relationship Specialty Start Date End Date Tamia Brooks MD [address] [facility] [address] [place] [address] PCP - General Internal Medicine 07/26/16 Tamia Brooks MD [address] [place] [address] PCP - Attributed-MSSP 01/09/20 03/29/21 Yohan Barros DPM [address] [place] [phone] Podiatry 05/24/13 documented as of this encounter
--- OUTSIDE RECORDS SUMMARY | 2024-03-22 20:11 | XMS_ITS | Encounter Summary ---
Author Organization [facility] Address [address] [place] [address] Care Team Providers Care Annealing Furnace Tender Name Role Phone Yohan Barros DPM Unavailable [phone] Tamia Brooks MD Primary Care Provider Efrain Dunlap MD Unavailable Tamia Brooks MD Unavailable [phone] Reason for Visit * Reason Onset Date Comments MEDICATION REFILL 06/14/2019 Encounter Details Date Type Department Care Team (Late st Contact Info) Description 06/14/2019 Refill [facility] Medical [facility] - Internal Medicine [address] [facility] [address] [place] [phone] Tamia Brooks MD [address] [place] [phone] MEDICATION REFILL Social History Tobacco Use [...] encounter Miscellaneous Notes * Telephone Encounter - Kylee Jacobsen - 06/14/2019 12:22 PM CDT Maura Watkins is in need of Her Requested Prescriptions Pending Prescriptions Disp Refills ??? omeprazole (PRILOSEC) 40 MG capsule 90 capsule 1 Sig: Take 1 capsule by mouth daily before breakfast ??? lisinopril (PRINIVIL; ZESTRIL) 20 MG tablet 90 tablet 1 Sig: Take 1 tablet by mouth once daily Person calling for the refill: Self Last office visit 05/10/19 Next Appointment scheduled: 07/07/2019 Last Refill for this medication 06/25/18, 12/22/18 Does patient have any new allergies since last office visit? No Was the pharmacy verified? Yes If this is a controlled substance was the Last 4 of SSN verified? NOT APPLICABLE (If unable to verify last 4 of SSN transfer to the clinic for further review) documented in this encounter Plan of Treatment Upcoming Encounters Date Type Department Care Team (Late st Contact Info) Description 06/29/2024 10:00 AM CDT Office Visit [facility] - Internal Medicine [address] [place] [phone] Tamia Brooks MD [address] [place] [phone] documented as of this encounter Goals Goal Patient Goal Type Associated Problems Recent Progress Patient-Stated? Author Blood Pressure < 140/90 Blood Pressure 130/70( 024 1:19 PM CDT) No Lola Neff MA documented as of this encounter Visit Diagnoses Diagnosis Gastroesophageal reflux disease without esophagitis Esophageal reflux Benign essential HTN Essential hypertension, benign documented in this encounter Care Teams Annealing Furnace Tender Relationship Specialty Start Date End Date Tamia Brooks MD [address] [place] [phone] PCP - General Internal Medicine 07/26/16 Tamia Brooks MD [address] [place] [phone] PCP - Attributed-MSSP 04/10/19 12/08/19 Yohan Barros DPM [address] [facility] [address] [place] [address] Podiatry 05/24/13 Efrain Dunlap MD [address] [phone] Orthopedic Surgery 01/06/19 08/29/20 documented as of this encounter
--- OUTSIDE RECORDS SUMMARY | 2024-03-22 20:11 | XMS_ITS | Encounter Summary ---
Author Organization [facility] Address [address] [facility] [place] [address] Care Team Providers Care C Winforms Developer Name Role Phone Yohan Barros DPM Unavailable [phone] Tamia Brooks MD Primary Care Provider Efrain Dunlap MD Unavailable Reason for Referral * Radiology Services (Routine) - Closed Specialty Diagnoses / Procedures Referred By Contac t Referred To Contact Bone Densitometry Diagnoses Asymptomatic menopausal state Osteopenia, unspecified location Procedures DEXA BONE DENSITY AXIAL SKELETON Tamia Brooks MD [facility] [address] [address] Referral ID Status Reason Start Date Expiration Date Visits Re quested Visits Authorized [id number] Closed 01/06/2019 07/05/2019 1 1 Reason for Visit * Reason Comments Diabetes Hypertension Encounter Details Date Type Department Care Team (Late st Contact Info) Description 01/06/2019 1:00 PM CDT Office Visit [facility] - Internal Medicine [address] [place] [address] [place] [phone] Tamia Brooks MD [address] [place] [phone] Benign essential HTN (Primary Dx); Mixed hyperlipidemia; Diet-controlled diabetes mellitus (HCC); Prediabetes; DDD (degenerative disc disease), lumbar; Osteopenia, unspecified location; Asymptomatic menopausal state ; Need for vaccination Social History Tobacco Use [...] Sign Reading Time Taken Comments Blood Pressure 132/86 01/06/2019 1:48 PM CDT Pulse 71 01/06/2019 1:02 PM CDT Temperature 35.9 ??C (96.7 ??F) 01/06/2019 1:02 PM CD T Respiratory Rate - - Oxygen Saturation 97% 01/06/2019 1:02 PM CDT Inhaled Oxygen Concentration - - Weight 86.6 kg (191 lb) 01/06/2019 1:02 PM CDT Height 165.1 cm (5' 5 ) 01/06/2019 1:02 PM CDT Body Mass Index 31.78 01/06/2019 1:02 PM CDT documented in this encounter Patient Instructions * Patient Instructions* Tamia Brooks MD - 01/06/2019 1:55 PM CDT .Please arrive 15 minutes early to your next appointment. .Following your visit, you may receive a survey via email or U.S. Mail about your experience with us. We encourage you to respond to this confidential survey about our care. We at [facility] are committed to always providing you with the most exceptional care. Your feedback helps us provide quality service at every visit. .Labs: You have labs pending. You do need to be fasting for this. Please go to your nearest [facility] get this done at your convenience. There is one in our building ([address] [place] [address]), [address]. .Get done 1 week before next visit. You are due for a bone density scan. .Please call to schedule at [phone] or . .Vaccines to get at your local pharmacy [facility], [facility], or [facility]: - tetanus ( TDAP) - shingles (Shingrix) documented in this encounter Progress Notes * Ladi Meneses - 01/06/2019 4:31 PM CDT Office Visit on 01/06/19 HEMOGLOBIN A1C - POINT OF CARE (HgbA1C) Result Value Ref Range Hemoglobin A1c POCT 5.8 % Expiration Date 08/18/2020 Lot # [id number] QC Verified Yes Yes * Tamia Brooks MD - 01/06/2019 1:19 PM CDT Tamia Brooks MD [facility] - Department of Internal Medicine [address] [place] [address], [address] [place] [address] History of Present Illness Maura Watkins is a 68 year old female who presents to the office Chief Complaint Patient presents with ??? Diabetes ??? Hypertension HTN/CKD3 - BP at home: not checking - medication compliance is good - dietary compliance is good - denies CP, SOB, LE edema BP Readings from Last 3 Encounters: 01/06/19 132/86 07/30/18 120/80 06/25/18 126/80 HLD - on statin - denies myalgias .The 10-year ASCVD risk score (Shelton DC Jr., et al., 2013) is: 25.2% Values used to calculate the score: Age: 68 years Sex: Female Is Non- : No Diabetic: Yes Tobacco smoker: No Systolic Blood Pressure: 132 mmHg Is BP treated: Yes HDL Cholesterol: 43 mg/dL Total Cholesterol: 198 mg/dL DDD lumbar - back is doing ok. - she is going to PT for her shoulder as well. DAILY - on CPAP nightly DM2 - diet controlled - a1c 5.8% - BG at home: 100-110 - hypoglycemia/symptoms: none - tests 1-2 per day Diet: Smaller portions, more veggies, and voss diet Exercise: 5 days a week. Sleep: is good. She has noted she is waking up earlier. Independent in ADLs No DME Mammogram: not due Colonoscopy: due 10/2023 Vaccines: flu shot already done Wt Readings from Last 3 Encounters: 01/06/19 86.6 kg (191 lb) 07/30/18 87.5 kg (193 lb) 06/25/18 88.5 kg (195 lb) Weight change: - 2 lbs since the last visit here. Labs reviewed: Did them today. Recent Labs Component Name 10/19/18 1120 04/11/18 09/26/17 0935 05/22/17 0835 SODIUM 143 142 147* 143 POTASSIUM 4.9 4.5 5.1 4.6 CHLORIDE 107* 104 105 102 CO2 19* 22 23 22 BUN 18 18 CREATININE 1.18* - 1.27* 1.35* GLUCOSE 96 [...] results for input(s): MICROALBUGML in the last 49067 hours. No results for input(s): MICROALBCREA in the last 99290 hours. No results for input(s): INR in the last 04797 hours. Past Medical, Surgical, Social, and Family Histories Patient Active Problem List Diagnosis Date Noted ??? Type 2 diabetes mellitus with stage [...] 31.9 in adult 05/13/2017 Priority: Not Prioritized ??? BMI 32.0-32.9,adult 05/13/2017 Priority: Not Prioritized ??? DAILY (obstructive sleep apnea) 11/22/2016 Priority: Not Prioritized ??? Osteopenia 09/27/2016 Priority: Not Prioritized ??? Chronic insomnia 07/19/2014 ??? CKD (chronic kidney disease) stage 3, GFR 30-59 ml/min 06/23/2014 GFR 09-26-17, 05-22-17 ??? Situational mixed anxiety and depressive disorder [...] daily ??? furosemide (LASIX) 20 MG tablet Take 1 tablet by mouth 2 times daily 180 tablet 1 ??? gabapentin (NEURONTIN) 300 [...] Fats in the Blood 90 tablet 1 ??? Tdap, ktlbezz-nzxqlxktxp-molts pertussis, (BOOSTRIX) 5-2.5-18.5 LF-MCG/0.5 (7y+) injection Inject 0.5 mL into muscle once for 1 dose .Pharmacist to administer 5 mL 0 ??? zoster vaccine recombinant adjuvanted (SHINGRIX) 50 MCG/0.5ML SUSR injection Inject 0.5 mL intomuscle once for 1 dose .Pharmacist to administer 0.5 mL 0 No current facility-administered medications for this visit. Immunization History Administered Date(s) Administered ??? FLU VACCINE TRI IIV3 SPLIT PF IM (FLUVIRIN) 12/03/2017 ??? FLU VACCINE TRI INC ANTIG PF 01/06/2015, 12/29/2015, 12/31/2018 ??? INFLUENZA 11/17/2008, 12/08/2009, 01/06/2011, 01/10/2012, 01/13/2013, 01/13/2013, 11/22/2013 ??? Influenza Vaccine Pf Cell Cult (18+yrs) IM 12/03/2017 ??? PNEUMOCOCCAL PPSV23 01/08/2010, 09/16/2016 ??? Pneumococcal Pcv13 Conj 07/10/2015 Review of Systems Except as noted in HPI Constitutional: Sleep and appetite ok. Eyes: No vision change. Ears, nose, mouth, and throat: No earache or discharge. No mouth sores or pain. Cardiovascular: No chest pain or SOB or edema. Respiratory: No SOB or wheezing. Gastrointestinal: No pain or N/V/D or blood in stool. Genitourinary: No voiding difficulty. Musculoskeletal:no joint pain or swelling. Skin: No new rash or skin breakdown. Neurological: No weakness or headaches. Behavioral/Psych: No depression or change in mood. Endocrine: No heat or cold intolerance Hematologic/lymphatic: No abnormal bleeding noted. Allergy: No congestion or allergic sx. Physical Examination Vitals: 01/06/19 1302 01/06/19 1348 BP: 160/98 132/86 Pulse: 71 Temp: 96.7 ??F (35.9 ??C) SpO2: 97% Weight: 86.6 kg (191 lb) Height: 1.651 m (5' 5 ) CrCl cannot be calculated (Patient's most recent lab result is older than the maximum 15 days allowed.). . BMI Readings from Last 3 Encounters: 01/06/19 31.78 kg/m?? 07/30/18 32.12 kg/m?? 06/25/18 32.45 kg/m?? General appearance: alert and NAD. Obese. SKIN: No suspicious lesions are noted on the exposed skin. EYES: Extraocular muscle movements are intact. Pupils are equal, round, and reactive to light. Conjunctiva are without significant erythema. HEENT: Auricles are intact without erythema. Hearing is intact to conversational tone. Tympanic membranes are intact without erythema. Pharynx reveals no exudate. There is no [...] intact MS: motor normal all 4 extrem. .A comprehensive diabetic foot exam was performed today on bare feet including visual inspection, monofilament, and assessment of pulses. The exam was normal, showing no lesions. Patient had normal pulses and sensation. The patient was provided education as to appropriate diabetic foot hygiene. Assessment and Plan .1. Benign essential HTN - controlled - continue current medications - BASIC METABOLIC PANEL (CALCIUM TOTAL) - CBC WITH DIFFERENTIAL 2. Mixed hyperlipidemia - controlled - continue current medications - LIPID PROFILE - rosuvastatin (CRESTOR) 10 MG tablet; Take 1 tablet by mouth once daily Reasons: High Amount of Fats in the Blood Dispense: 90 tablet; Refill: 1 3. Diet-controlled diabetes mellitus 4. Prediabetes - a1c has improved to prediabetes range. Advised pt to consider herself diet controlled diabetic for now. If a1c remains out of DM range will update problem list - DIABETES FOOT EXAM - blood glucose (ONETOUCH VERIO) test strip; Use 1 strip once daily Dispense: 100 strip; Refill: 5 - HEMOGLOBIN A1C - POINT OF CARE (HgbA1C) 5. DDD (degenerative disc disease), lumbar - improving - referral to therapy given - AMB REFERRAL TO PHYSICAL THERAPY; Future 6. Osteopenia, unspecified location 7. Asymptomatic menopausal state - DEXA BONE DENSITY AXIAL SKELETON; Future 8. Need for vaccination - zoster vaccine recombinant adjuvanted (SHINGRIX) 50 MCG/0.5ML SUSR injection; Inject 0.5 mL into muscle once for 1 dose .Pharmacist to administer Dispense: 0.5 mL; Refill: 0 - Tdap, exyyftp-hfqahjzong-ofbuy pertussis, (BOOSTRIX) 5-2.5-18.5 LF-MCG/0.5 (7y+) injection; Inject 0.5 mL into muscle once for 1 dose .Pharmacist to administer Dispense: 5 mL; Refill: 0 The above was discussed with the patient and understanding was voiced. Patient is in agreement withthe above plan HM: Health Maintenance Topic Date Due ??? DTAP/TDAP/TD VACCINES (1 - Tdap) 1967 ??? ZOSTER VACCINE (1 of 2) 1998 ??? HCC (Chart Reviewer Use Only) 08/12/2018 ??? BONE DENSITY TESTING 09/27/2018 ??? DIABETES-FOOT EXAM WITH MONOFILAMENT 10/23/2018 ??? INFLUENZA VACCINE (1) 11/08/2018 ??? ANNUAL MEDICARE WELLNESS VISIT 02/18/2019 ??? DIABETES-HGB A1C 04/21/2019 ??? DIABETES-EYE EXAM 12/08/2019 ??? MAMMOGRAM 04/29/2020 ??? COLON CA SCREENING 11/06/2023 ??? PNEUMOCOCCAL VACCINE 65+ Completed ??? HEPATITIS C SCREENING Completed ??? HIB VACCINE Aged Out ??? MENINGOCOCCAL VACCINE Aged Out Return to office: Return in about 6 months (around 07/08/2019) for AWV ( 40 min) . or sooner if needed. documented in this encounter Plan of Treatment Upcoming Encounters Date Type Department Care Team (Late st Contact Info) Description 06/29/2024 10:00 AM CDT Office Visit [facility] - Internal Medicine [address] [facility] [address] [place] [address] Tamia Brooks MD [address] [place] [address] [address] [place] [address] Scheduled Orders Name Type Priority Associated Diagnoses Orde r Schedule LIPID PROFILE Lab Routine Mixed hyperlipidemia Ordered: 01/06/2019 BASIC METABOLIC PANEL (CALCIUM TOTAL) Lab Routine Benign essential HTN Ordered: 01/06/2019 CBC WITH DIFFERENTIAL Lab Routine Benign essential HTN Ordered: 01/06/2019 documented as of this encounter Goals Goal Patient Goal Type Associated Problems Recent Progress Patient-Stated? Author Blood Pressure < 140/90 Blood Pressure 130/70( 024 1:19 PM CDT) Lola Serna MA documented as of this encounter Procedures Procedure Name Priority Date/Time Associated Diagnosis Comments HEMOGLOBIN A1C - POINT OF CARE (AMB) Routine 01/06/2019 Prediabetes documented in this encounter Results * DEXA BONE DENSITY AXIAL SKELETON (03/17/2019 10:46 AM BILINGUAL SPEECH LANGUAGE PATHOLOGIST) Anatomical Region Laterality Modality Nuclear Medicine 03/17/2019 10:5 0 AM BILINGUAL SPEECH LANGUAGE PATHOLOGIST Impressions 03/17/2019 10:53 AM BILINGUAL SPEECH LANGUAGE PATHOLOGIST Osteopenia of the hips. Normal bone mineral density of the lumbar spine. WORLD HEALTH ORGANIZATION DEFINITIONS NORMAL= T-Score at or above -1.0 SD OSTEOPENIA = T-Score between -1 and -2.5 SD OSTEOPOROSIS = T-Score at or below -2.5 SD Reading Radiologist: Kiki Mireles MD on 03/17/2019 at 10:53 AM Narrative 03/17/2019 10:53 AM [facility] BONE MINERAL DENSITY STUDY: INDICATION: ??68-year-old for [...] AM Tamia Brooks MD DEXA ORDERABLES * HEMOGLOBIN A1C - POINT OF CARE (HgbA1C) (01/06/2019) Pathologist [facility] Hemoglobin A1c POCT 5.8 % Expiration Date 08/18/2020 Lot # [id number] QC Verified Yes Yes Blood BLOOD SPECIMEN / Unknown 01/06/2019 Tamia Brooks MD LAB - POINT OF CARE ORDERABLES documented in this encounter Visit Diagnoses Diagnosis Benign essential HTN- Primary Essential hypertension, benign Mixed hyperlipidemia Diet-controlled diabetes mellitus (HCC) Prediabetes Other abnormal glucose DDD (degenerative disc disease), lumbar Degeneration of lumbar or lumbosacral intervertebral disc Osteopenia, unspecified location Asymptomatic menopausal state Asymptomatic postmenopausal status (age-related) (natural) Need for vaccination Need for prophylactic vaccination and inoculation against unspecified single disease Asymptomatic menopausal state Asymptomatic postmenopausal status (age-related) (natural) Osteopenia, unspecified location documented in this encounter Care Teams C Winforms Developer Relationship Specialty Start Date End Date Tamia Brooks MD [address] [facility] [address] [place] [address] PCP - General Internal Medicine 07/26/16 Yohan Barros DPM [address] [facility] [address] [place] [address] Podiatry 05/24/13 Efrain Dunlap MD [address] [facility] [address] [place] [address] Orthopedic Surgery 01/06/19 08/29/20 documented as of this encounter
--- OUTSIDE RECORDS SUMMARY | 2024-03-22 20:11 | XMS_ITS | Encounter Summary ---
Author Organization [facility] Address [address] [facility] [place] [address] Care Team Providers Care Commercial Stripper Name Role Phone Yohan Barros DPM Unavailable [phone] Tamia Brooks MD Primary Care Provider Efrain Dunlap MD Unavailable Tamia Brooks MD Unavailable [phone] Reason for Visit * Reason Onset Date Comments Allergy Symptoms 05/17/2020 Sinusitis 05/17/2020 Encounter Details Date Type Department Care Team (Late st Contact Info) Description 05/17/2020 Telephone [facility] - Internal Medicine [address] [facility] [address] [place] [phone] Tamia Brooks MD [address] [place] [phone] Allergy Symptoms; Sinusitis Social History Tobacco Use Types Packs/Day Years [...] encounter Miscellaneous Notes * Telephone Encounter - Michelle Long LPN - 05/17/2020 4:03 PM CST Advised. Also recommended Flonase. E DYE WORKER * Telephone Encounter - Tamia Brooks MD - 05/17/2020 3:59 PM CST zpak sent. If no improvement- call back. Recommend ENT referral. Tamia Brooks MD 05/17/2020 4:00 PM E DYE WORKER * Telephone Encounter - Michelle Long LPN - 05/17/2020 3:30 PM CST Background: Seasonal allergies vs sinus infection Says she gets this every spring, could be from Maple pollen. Assessment: Duration: 2 weeks Cough sx: Mild, from sinus drainage Nasal/Sinus sx: Drainage, mild congestion Ear sx: Bilateral ear pressure Throat/Neck sx: Sore throat, neck feels tender Fever: No Headache: Sinus pressure headache Therapies tried and results: Mucinex, Zyrtec. Patient Request/Expectations: Recommendations on what to take E DYE WORKER documented in this encounter Plan of Treatment Upcoming Encounters Date Type Department Care Team (Late st Contact Info) Description 06/29/2024 10:00 AM CDT Office Visit [facility] - Internal Medicine [address] [facility] [address] [place] [phone] Tamia Brooks MD [address] [place] [phone] documented as of this encounter Goals Goal Patient Goal Type Associated Problems Recent Progress Patient-Stated? Author Blood Pressure < 140/90 Blood Pressure 130/70( 024 1:19 PM CDT) No Lola Neff MA documented as of this encounter Visit Diagnoses Not on filedocumented in this encounter Care Teams Commercial Stripper Relationship Specialty Start Date End Date Tamia Brooks MD [address] [place] [address] PCP - General Internal Medicine 07/26/16 Tamia Brooks MD [address] [place] [address] PCP - Attributed-MSSP 01/09/20 03/29/21 Yohan Barros, DPM [address] [facility] [address] [phone] Podiatry 05/24/13 Efrain Dunlap MD [address] [place] [address] Orthopedic Surgery 01/06/19 08/29/20 documented as of this encounter
--- OUTSIDE RECORDS SUMMARY | 2024-03-22 20:11 | XMS_ITS | Encounter Summary ---
Author Organization [facility] Address [address] [facility] [place] [address] Care Team Providers Care Featherer Name Role Phone Yohan Barros DPM Unavailable [phone] Tamia Brooks MD Primary Care Provider Reason for Visit * Reason Onset Date Comments MEDICATION REFILL 07/12/2021 Encounter Details Date Type Department Care Team (Late st Contact Info) Description 07/12/2021 Refill [facility] - Internal Medicine [address] [facility] [address] [place] [phone] Tamia Brooks MD [address] [place] [address] [place] [phone] MEDICATION REFILL Social History Tobacco Use [...] encounter Miscellaneous Notes * Telephone Encounter - Karin Candelaria - 07/12/2021 11:32 AM CDT Maura Watkins is calling requesting the RX's be sent to the update pharmacy since she is no longer out of the [place]. She says the pharmacy won't transfer the medications. Last appt: 03/29/2021 Next appt: 02/20/2022 Last refill: 03/29/2021 Number of cancel or no shows in the last 12 months: 1 Allergies have been reviewed. Correct pharmacy is populated. Please sign RX and close encounter. documented in this encounter Plan of Treatment Upcoming Encounters Date Type Department Care Team (Late st Contact Info) Description 06/29/2024 10:00 AM CDT Office Visit [facility] - Internal Medicine [address] [place] [phone] Tamia Brooks MD [address] [place] [phone] documented as of this encounter Goals Goal Patient Goal Type Associated Problems Recent Progress Patient-Stated? Author Blood Pressure < 140/90 Blood Pressure 130/70( 024 1:19 PM CDT) Lola Serna MA documented as of this encounter Visit Diagnoses Not on filedocumented in this encounter Care Teams Featherer Relationship Specialty Start Date End Date Tamia Brooks MD [address] [place] [phone] PCP - General Internal Medicine 07/26/16 Yohan Barros DPM [address] [place] [address] [place] [address] Podiatry 05/24/13 documented as of this encounter
--- OUTSIDE RECORDS SUMMARY | 2024-03-22 20:11 | XMS_ITS | Encounter Summary ---
Author Organization [facility] Address [address] [place] [address] Care Team Providers Care Local Company Truck Driver Name Role Phone Yohan Barros DPM Unavailable [phone] Tamia Brooks MD Primary Care Provider Efrain Dunlap MD Unavailable Tamia Brooks MD Unavailable [phone] Reason for Referral * Evaluate & Treat (Routine) - Closed Specialty Diagnoses / Procedures Referred By Contac t Referred To Contact Gastroenterology Diagnoses Gastroesophageal reflux disease, unspecified whether esophagitis present Tamia Brooks MD [facility] [facility] [address] [place] [phone] [place] [address] Referral ID Status Reason Start Date Expiration Date V isits Requested Visits Authorized [id number] Closed Specialty Services Required 06/06/2020 06/06/2021 1 1 Reason for Visit * Reason Onset Date Comments Reflux 06/06/2020 Encounter Details Date Type Department Care Team (Late st Contact Info) Description 06/06/2020 Telephone [facility] - Internal Medicine [address] [facility] [address] [place] [address] Tamia Brooks MD [address] [facility] [address] [place] [address] Reflux Social History Tobacco Use Types Packs/Day Years [...] Telephone Encounter - Michelle Long LPN - 06/06/2020 12:39 PM CDT Patient advised. Will call for GI appointment. * Telephone Encounter - Tamia Brooks MD - 06/06/2020 12:21 PM CDT Switch to nexium BID for 14 days, then daily for 30 days, then hopefully can go to PRN. Can add reglan before meals as well. Referral to GI given. Orders Placed This Encounter ??? [facility] Rikki Calix Aymerich Standing Status: Future Standing Expiration Date: 06/06/2021 Referral Priority: Routine Referral Type: Evaluate & Treat Referral Reason: Specialty Services Required Number of Visits Requested: 1 ??? esomeprazole (NEXIUM) 40 MG capsule Sig: Take 1 (one) capsule by mouth 2 times daily, before breakfast and supper for 14 days, THEN 1 (one) capsule daily before breakfast for 30 days, THEN 1 (one) capsule once daily as needed for Heartburn. Reasons: Gastroesophageal Reflux Disease. Dispense: 60 capsule Refill: 2 ??? metoclopramide (REGLAN) 5 MG tablet Sig: Take 1 (one) tablet by mouth 3 times daily before meals Reasons: Gastroesophageal Reflux Disease Dispense: 90 tablet Refill: 3 * Telephone Encounter - Michelle Long LPN - 06/06/2020 11:39 AM CDT Reflux continues. Was on omeprazole for a long time, but became ineffective, so changed to pantoprazole 11/09/19. Can't remember if she started taking BID initially for 14 days or not, but currently taking once daily in the morning. No help whatsoever. Chest hurts like it's raw, from reflux all the time. Looks like she was referred to GI back on 10/07/16 for reflux/uncontrolled GERD, but never made appointment? Time to see specialist? documented in this encounter Plan of Treatment Upcoming Encounters Date Type Department Care Team (Late st Contact Info) Description 06/29/2024 10:00 AM CDT Office Visit [facility] - Internal Medicine [address] [place] [phone] Tamia Brooks MD [address] [place] [phone] Scheduled Referrals Name Type Priority Associated Diagnoses Orde r Schedule [facility] Rikki Calix Aymerich Outpatient Referral Routine Gastroesophageal reflux disease, unspecified whether esophagitis present 1 Occurrences starting 06/06/2020 until 06/06/2021 documented as of this encounter Goals Goal Patient Goal Type Associated Problems Recent Progress Patient-Stated? Author Blood Pressure < 140/90 Blood Pressure 130/70( 024 1:19 PM CDT) No Lola Neff MA documented as of this encounter Visit Diagnoses Diagnosis Gastroesophageal reflux disease, unspecified whether esophagitis present- Primary documented in this encounter Care Teams Local Company Truck Driver Relationship Specialty Start Date End Date Tamia Brooks MD [address] [place] [phone] PCP - General Internal Medicine 07/26/16 Tamia Brooks MD [address] [facility] [address] [place] [phone] PCP - Attributed-MSSP 01/09/20 03/29/21 Yohan Barros DPM [facility] [address] [place] [address] Podiatry 05/24/13 Efrain Dunlap MD [address] [facility] [address] [place] [phone] Orthopedic Surgery 01/06/19 08/29/20 documented as of this encounter
--- OUTSIDE RECORDS SUMMARY | 2024-03-22 20:11 | XMS_ITS | Encounter Summary ---
Author Organization [facility] Address [address] [facility] [place] [address] Care Team Providers Care Nurse Manager Name Role Phone Yohan Barros DPM Unavailable [phone] Tamia Brooks MD Primary Care Provider [phone] Tamia Brooks MD Unavailable [phone] Reason for Visit * Reason Comments Pain Epigastric Encounter Details Date Type Department Care Team (Latest Contact Info) Description 01/11/2021 9:30 AM CDT Video Visit [facility] Medical [facility] - [address] [address] James Calix MD [address] [place] [address] Gastroesophageal reflux disease with esophagitis, unspecified whether hemorrhage Social History Tobacco Use Types Packs/Day Years [...] have Coronavirus / COVID-19? No / Unsure 01/03/2021 11:40 AM CDT documented as of this encounter Progress Notes * James Calix MD - 01/11/2021 10:03 AM CDT Gastroenterology Telemedicine Note Today's visit was conducted virtually due to COVID-19 countermeasures. The patient has given verbalconsent to have today's visit conducted by this same means with treatment provided remotely. The patient verbally consents to the billing and collection practices of [facility]. DEMOGRAPHICS: PATIENT: Maura Watkins : 1950 Admit Date: No admission date for patient encounter. Referring Physician: Tamia Brooks MD: SUBJECTIVE: Maura Watkins is 70 year old female being seen for gerd ppi Bid Patient location: Home This encounter was performed using: audio and video Time spent with patient/proxy: 11 minutes (between [...] Nausea and/or Vomiting and Dizziness MEDICATIONS: Maura To Watkins has a current medication list which [...] chest pain or dyspnea on exertion Gastrointestinal ROS:gerd Genito-Urinary ROS: negative, no dysuria, trouble voiding, [...] AMYLASE, LIPASE, FERRITIN, IRON in the last [id number] hours. Invalid input(s): SATURATION PERTINENT RADIOLOGY: ASSESSMENT: Maura Watkins is a 70 year old female with Encounter Diagnosis Name Primary? Gastroesophageal reflux disease with esophagitis, unspecified whether hemorrhage Yes renal Function Decrease Will try to get off ppi Even though working PLAN: No orders of the defined types were placed in this encounter. ppi in Am for 2 weeks And pepcid in evening And then pepcid 20 mg po bid And stop ppi I have discussed the above recommendations and their risks, benefits, and alternatives, with the patient and any family present, and all agreed with the plan. All questions were answered. James Calix M.D. [facility] office: [phone] Exchange: [phone] documented in this encounter Plan of Treatment Upcoming Encounters Date Type Department Care Team (Late st Contact Info) Description 06/29/2024 10:00 AM CDT Office Visit [facility] - Internal Medicine [address] [place] [address] [place] [phone] Tamia Brooks MD [address] [place] [phone] documented as of this encounter Goals Goal Patient Goal Type Associated Problems Recent Progress Patient-Stated? Author Blood Pressure < 140/90 Blood Pressure 130/70( 024 1:19 PM CDT) Lola Serna MA documented as of this encounter Visit Diagnoses Diagnosis Gastroesophageal reflux disease with esophagitis, unspecified whether hemorrhage- Primary documented in this encounter Care Teams Nurse Manager Relationship Specialty Start Date End Date Tamia Brooks MD [address] [place] [phone] PCP - General Internal Medicine 07/26/16 Tamia Brooks MD [address] [place] [phone] PCP - Attributed-MSSP 01/09/20 03/29/21 Yohan Barros DPM [address] [place] [phone] Podiatry 05/24/13 documented as of this encounter
--- OUTSIDE RECORDS SUMMARY | 2024-03-22 20:11 | XMS_ITS | Encounter Summary ---
Author Organization [facility] Address [address] [facility] [place] [address] Care Team Providers Care Operations Developer Name Role Phone Yohan Barros DPM Unavailable [phone] Tamia Brooks MD Primary Care Provider [phone] Efrain Dunlap MD Unavailable Tamia Brooks MD Unavailable [phone] Reason for Visit * Reason Comments Refill Request Encounter Details Date Type Department Care Team (Late st Contact Info) Description 07/22/2020 Refill [facility] Medical [facility] - Internal Medicine [facility] [address] Tamia Brooks MD [address] [place] [phone] Refill Request Social History Tobacco Use [...] Telephone Encounter - Tona Castaneda MA - 07/24/2020 2:03 PM CDT Last appt: 01/11/20 Next appt: 08/30/20 Number of cancel or no shows in the last 12 months: 1 Allergies have been reviewed. Correct pharmacy is populated. Please sign RX and close encounter. Last Refill: 01/21/20 documented in this encounter Plan of Treatment Upcoming Encounters Date Type Department Care Team (Late st Contact Info) Description 06/29/2024 10:00 AM CDT Office Visit [facility] - Internal Medicine [address] [facility] [address] [place] [address] Tamia Brooks MD [address] [facility] [address] [place] [phone] documented as of this encounter Goals Goal Patient Goal Type Associated Problems Recent Progress Patient-Stated? Author Blood Pressure < 140/90 Blood Pressure 130/70( 024 1:19 PM CDT) Lola Serna MA documented as of this encounter Visit Diagnoses Diagnosis Benign essential HTN Essential hypertension, benign documented in this encounter Care Teams Operations Developer Relationship Specialty Start Date End Date Tamia Brooks MD [address] [facility] [address] [place] [address] PCP - General Internal Medicine 07/26/16 Tamia Brooks MD [address] [facility] [address] [place] [phone] PCP - Attributed-MSSP 01/09/20 03/29/21 Yohan Barros DPM [address] [place] [address] [place] [phone] Podiatry 05/24/13 Efrain Dunlap MD [facility] [address] [place] [address] Orthopedic Surgery 01/06/19 08/29/20 documented as of this encounter
--- OUTSIDE RECORDS SUMMARY | 2024-03-22 20:11 | XMS_ITS | Encounter Summary ---
Author Organization [facility] Address [address] [facility] [place] [address] Care Team Providers Care Plastic Jig And Fixture Builder Name Role Phone Yohan Barros DPM Unavailable [phone] Tamia Brooks MD Primary Care Provider [phone] Tamia Brooks MD Unavailable [phone] Reason for Visit * Reason Comments Refill Request Encounter Details Date Type Department Care Team (Late st Contact Info) Description 02/11/2021 Refill [facility] Medical [facility] - Internal Medicine [address] [place] [address] [place] [phone] Tamia Brooks MD [address] [place] [phone] Refill Request Social History Tobacco Use [...] * Telephone Encounter - Radha Virgen - 02/13/2021 1:33 PM CUSTOMER SUCCESS ADVOCATE Last appt: 6.23.21 Next appt: ..21 Number of cancel or no shows in the last 12 months: 0 Allergies have been reviewed. Correct pharmacy is populated. Please sign RX and close encounter. OMER SUCCESS ADVOCATE documented in this encounter Plan of Treatment Upcoming Encounters Date Type Department Care Team (Late st Contact Info) Description 06/29/2024 10:00 AM CDT Office Visit [facility] - Internal Medicine [address] [facility] [address] [place] [address] Tamia Brooks MD [address] [place] [phone] documented as of this encounter Goals Goal Patient Goal Type Associated Problems Recent Progress Patient-Stated? Author Blood Pressure < 140/90 Blood Pressure 130/70( 024 1:19 PM CDT) Lola Serna MA documented as of this encounter Visit Diagnoses Diagnosis Mixed hyperlipidemia documented in this encounter Care Teams Plastic Jig And Fixture Builder Relationship Specialty Start Date End Date Tamia Brooks MD [address] [place] [phone] PCP - General Internal Medicine 07/26/16 Tamia Brooks MD [address] [place] [phone] PCP - Attributed-MSSP 01/09/20 03/29/21 Yohan Barros DPM [address] [facility] [place] [address] [place] [phone] Podiatry 05/24/13 documented as of this encounter
--- OUTSIDE RECORDS SUMMARY | 2024-03-22 20:11 | XMS_ITS | Encounter Summary ---
Author Organization [facility] Address [address] [facility] [place] [address] Care Team Providers Care Lead Manufacturing Technician Name Role Phone Yohan Barros DPM Unavailable [phone] Tamia Brooks MD Primary Care Provider Reason for Visit * Reason Comments Refill Request Encounter Details Date Type Department Care Team (Late st Contact Info) Description 12/22/[address] [facility] - Internal Medicine [address] [facility] [address] [place] [phone] Tamia Brooks MD [address] [place] [address] [place] [phone] Refill Request Social History Tobacco Use [...] encounter Miscellaneous Notes * Telephone Encounter - Ese Warner - 12/22/2018 2:21 PM CDT Last appt: 06-25-18 Next appt: 01-06-19 Number of cancel or no shows in the last 12 months: none Allergies have been reviewed. Correct pharmacy is populated. Please sign RX and close encounter. documented in this encounter Plan of Treatment Upcoming Encounters Date Type Department Care Team (Late st Contact Info) Description 06/29/2024 10:00 AM CDT Office Visit [facility] - Internal Medicine [address] [facility] [address] [place] [address] Tamia Brooks MD [address] [place] [phone] documented as of this encounter Goals Goal Patient Goal Type Associated Problems Recent Progress Patient-Stated? Author Blood Pressure < 140/90 Blood Pressure 130/70( 024 1:19 PM CDT) No Lola Neff MA documented as of this encounter Visit Diagnoses Diagnosis Benign essential HTN Essential hypertension, benign documented in this encounter Care Teams Lead Manufacturing Technician Relationship Specialty Start Date End Date Tamia Brooks MD [facility] [phone] PCP - General Internal Medicine 07/26/16 Yohan Barros DPM [address] [phone] Podiatry 05/24/13 documented as of this encounter
--- OUTSIDE RECORDS SUMMARY | 2024-03-22 20:11 | XMS_ITS | Encounter Summary ---
Author Organization [facility] Address [address] [facility] [place] [address] Care Team Providers Care Research And Evaluation Manager Name Role Phone Yohan Barros DPM Unavailable [phone] Tamia Brooks MD Primary Care Provider [phone] Reason for Visit * Reason Onset Date Comments MEDICATION REFILL 10/11/2021 Encounter Details Date Type Department Care Team (Late st Contact Info) Description 10/11/2021 Refill [facility] Medical [facility] - Internal Medicine [address] [facility] [address] [place] [phone] Tamia Brooks MD [address] [place] [phone] MEDICATION REFILL Social History Tobacco Use [...] * Telephone Encounter - Barbra Lima - 10/11/2021 10:37 AM CDT Last appt: 09/26/21 Next appt: 02/20/22 Last refill: 07/11/21 Number of cancel or no shows in the last 12 months: 1 Allergies have been reviewed. Correct pharmacy is populated. Please sign RX and close encounter. documented in this encounter Plan of Treatment Upcoming Encounters Date Type Department Care Team (Late st Contact Info) Description 06/29/2024 10:00 AM CDT Office Visit [facility] - Internal Medicine [address] [place] [address] [place] [phone] Tamia Brooks MD [address] [place] [phone] documented as of this encounter Goals Goal Patient Goal Type Associated Problems Recent Progress Patient-Stated? Author Blood Pressure < 140/90 Blood Pressure 130/70( 024 1:19 PM CDT) Lola Serna MA documented as of this encounter Visit Diagnoses Diagnosis Mixed hyperlipidemia documented in this encounter Care Teams Research And Evaluation Manager Relationship Specialty Start Date End Date Tamia Brooks MD [address] [place] [phone] PCP - General Internal Medicine 07/26/16 Yohan Barros DPM [facility] [address] [place] [phone] Podiatry 05/24/13 documented as of this encounter
--- OUTSIDE RECORDS SUMMARY | 2024-03-22 20:11 | XMS_ITS | Encounter Summary ---
Author Organization [facility] Address [address] [facility] [place] [address] Care Team Providers Care Embedded Hardware Engineer Name Role Phone Yohan Barros DPM Unavailable [phone] Tamia Brooks MD Primary Care Provider [phone] Reason for Visit * Reason Comments Pain Back Right upper side Pain Breast Right side Weakness Right hand Numbness tingling from head t o right arm Encounter Details Date Type Department Care Team (Late st Contact Info) Description 09/26/2021 12:45 PM CDT Office Visit [facility] - Internal Medicine [address] [facility] [address] [place] [address] Barbra Chung, FINANCIAL ENGINEER-[facility] [address] [facility] [address] [place] [address] Hypertension, benign essential (Primary Dx); Thoracic myofascial strain, initial encounter; Strain of neck muscle, initial encounter Social History Tobacco Use Types [...] AM CDT documented as of this encounter Last Filed Vital Signs Vital Sign Reading Time Taken Comments Blood Pressure 118/72 09/26/2021 12:34 PM CDT Pulse 62 09/26/2021 12:34 PM CDT Temperature 36.6 ??C (97.9 ??F) 09/26/2021 12:34 PM C DT Respiratory Rate - - Oxygen Saturation 98% 09/26/2021 12:34 PM CDT Inhaled Oxygen Concentration - - Weight 92.4 kg (203 lb 9.6 oz) 09/26/2021 12:34 PM CDT Height 157.5 cm (5' 2 ) 09/26/2021 12:34 PM CDT Body Mass Index 37.24 09/26/2021 12:34 PM CDT documented in this encounter Patient Instructions * Patient Instructions* Barbra Chung APRN-CNP - 09/26/2021 12:57 PM CDT We need to obtain your cervical spine x-rays. Continue tizanidine and prednisone as prescribed. Okay to take 500-1000 mg tylenol, three times a day, as needed. Use a heating pad intermittent several times a day for 20 minutes at a time. Wait to start physical therapy until we see the x-rays. documented in this encounter Progress Notes * Barbra Chung APRN-CNP - 09/26/2021 12:26 PM CDT Images from the original note were not included. [facility]- Division of Internal Medicine JORDYN Delacruz Follow Up Office Visit HPI: Maura Watkins is a 71 year old female and a patient of Tamia Brooks MD. She presents with Chief Complaint Patient presents with ??? Pain Back Right upper side ??? Pain Breast Right side ??? Weakness Right hand ??? Numbness tingling from head to right arm Right upper back/axilla pain/shoulder pain Pain to her right cervical/thoracic spine which radiates to her right axilla and her right hand. This started about 6 days ago. Denies trauma or injury. Denies heavy lifting. Denies hx of neck pain. She does have intermittent numbness/tingling to her palmar aspect of her right hand. She is retired. 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 She has seen two different chiropractors with no relief of symptoms. Patient states she had a cervical spine x-ray done yesterday. No results in Epic as of today. Will request records. Taking tizanidine 4 mg BID and prednisone as prescribed; states that this has provided her with some mild relief. History: Past Medical History: Diagnosis Date ??? [...] previous visit. Allergies: Allergies Allergen Reactions ??? Darvon Nausea and/or Vomiting and Dizziness Depression: PHQ-2:PHQ2 TOTAL SCORE: 1 PHQ-9: Sleep Quality: Sleeps well Stress Management: denies Diet: does not follow any diet at this time Exercise:irregularly r/t shoulder pain Home Medications: Current Outpatient Medications on File [...] Gastroesophageal Reflux Disease 60 capsule 1 ??? methylPREDNISolone (MEDROL DOSEPAK) 4 MG tablet Take by mouth as directed Take as directed by mouth per package instructions. 21 tablet 0 ??? metoclopramide (REGLAN) 5 MG tablet Take 1 (one) tablet by mouth 3 times daily before meals Reasons: Gastroesophageal Reflux Disease 90 tablet 1 ??? rosuvastatin (CRESTOR) 10 MG [...] General (Internal Medicine) Yohan Barros DPM (Podiatry) Review of Systems: Review of Systems Constitutional: Negative for chills and fever. Musculoskeletal: Positive for back pain, myalgias and neck pain. Negative for falls and joint pain. Neurological: Positive for tingling. Negative for tremors and weakness. Physical Examination: Temp Readings from Last 3 Encounters: 09/26/21 97.9 ??F (36.6 ??C) 03/29/21 97.6 ??F (36.4 ??C) 02/16/21 98.1 ??F (36.7 ??C) (Temporal) Pulse Readings from Last 3 Encounters: 09/26/21 62 03/29/21 82 02/16/21 83 BP Readings from Last 3 Encounters: 09/26/21 118/72 03/29/21 126/74 02/16/21 142/90 Wt Readings from Last 3 Encounters: 09/26/21 92.4 kg (203 lb 9.6 oz) 03/29/21 90.4 kg (199 lb 6.4 oz) 02/16/21 90.3 kg (199 lb) Body mass index is 37.24 kg/m??. Height: 157.5 cm (5' 2 ) Physical Exam Vitals reviewed. Constitutional: General: She is not in acute distress. Appearance: Normal appearance. She is not ill-appearing. HENT: Mouth/Throat: Lips: Metter. Pharynx: Uvula midline. Eyes: General: Lids are normal. Right eye: No discharge. Left eye: No discharge. Conjunctiva/sclera: Conjunctivae normal. Cardiovascular: Rate and Rhythm: Normal rate and regular rhythm. Pulses: Radial pulses are 2+ on the right side and 2+ on the left side. Heart sounds: Normal heart sounds, S1 normal and S2 normal. No murmur heard. Pulmonary: Effort: Pulmonary effort is normal. No accessory muscle usage, respiratory distress or retractions. Breath sounds: Normal breath sounds and air entry. Abdominal: Palpations: Abdomen is soft. Tenderness: There is no abdominal tenderness. Musculoskeletal: Right shoulder: Normal. No swelling or deformity. Right upper arm: Normal. No swelling, edema, deformity, tenderness or bony tenderness. Right elbow: Normal. Normal range of motion. No tenderness. Right forearm: Normal. Right wrist: Normal. Right hand: Normal. Cervical back: Swelling, deformity, spasms and tenderness present. No crepitus. Thoracic back: Spasms and tenderness present. Back: Right lower leg: No edema. Left lower leg: No edema. Comments: Negative tinel and phalen's signs to RUE Skin: General: Skin is warm and dry. Neurological: General: No focal deficit present. Mental Status: She is alert and oriented to person, place, and time. Psychiatric: Attention and Perception: Attention normal. Mood and Affect: Mood and affect normal. Speech: Speech normal. Behavior: Behavior normal. Behavior is cooperative. Thought Content: Thought content normal. Cognition and Memory: Cognition normal. Judgment: Judgment normal. Test Results Reviewed: Recent Labs Component [...] 86 Recent Labs Component Name 10/19/18 1120 [id number] 40.8 The above lab results were reviewed [...] ??? Hyperlipidemia 09/20/2008 Assessment and Plan: 1. Hypertension, benign essential Controlled today. Encouraged heart healthy diet and increasing exercise. - lisinopril (PRINIVIL; ZESTRIL) 40 MG tablet; Take 1 (one) tablet by mouth once daily Reasons: High Blood Pressure Disorder Dispense: 90 tablet; Refill: 1 2. Thoracic myofascial strain, initial encounter 3. Strain of neck muscle, initial encounter Will obtain imaging from [facility]. If no fracture, patient okay to start physical therapy.Continue tizanidine and prednisone as prescribed. Use heat therapy intermittently. Okay to take 500-1000 mg tylenol TID. - AMB REFERRAL TO PHYSICAL THERAPY; Future A total of 25 minutes was spent today with the patient, reviewing patient history, and/or outside records on Care Everywhere. Health Maintenance Topic Date Due ??? DTAP/TDAP/TD VACCINES (1 - Tdap) Never done ??? ZOSTER VACCINE (1 of 2) Never done ??? DIABETES-EYE EXAM 12/08/2019 ??? MAMMOGRAM 04/29/2020 ??? DIABETES-HGB A1C 03/01/2021 ??? BONE DENSITY TESTING 03/17/2021 ??? COVID-19 VACCINE (4 - Booster for Moderna series) 05/18/2021 ??? INFLUENZA VACCINE (1) 11/08/2021 ??? MEDICARE AWV - 12 MONTHS 02/16/2022 ??? DIABETES-FOOT EXAM WITH MONOFILAMENT 02/16/2022 ??? HCC (Chart Reviewer Use Only) 03/29/2022 ??? Colorectal Cancer Screening 11/06/2023 ??? PNEUMOCOCCAL VACCINE 65+ Completed ??? HEPATITIS C SCREENING Completed ??? HEPATITIS B VACCINE Aged Out ??? HIB VACCINE Aged Out ??? MENINGOCOCCAL VACCINE Aged Out Follow up: Return if symptoms worsen or fail to improve, for August appt with Dr. Brooks . Barbra Chung APRN-CNP 09/26/2021 1:15 PM documented in this encounter Plan of Treatment Upcoming Encounters Date Type Department Care Team (Late st Contact Info) Description 06/29/2024 10:00 AM CDT Office Visit [facility] - Internal Medicine [address] [facility] [address] [place] [phone] Tamia Brooks MD [address] [place] [phone] documented as of this encounter Goals Goal Patient Goal Type Associated Problems Recent Progress Patient-Stated? Author Blood Pressure < 140/90 Blood Pressure 130/70( 024 1:19 PM CDT) Lola Serna MA documented as of this encounter Visit Diagnoses Diagnosis Hypertension, benign essential- Primary Essential hypertension, benign Thoracic myofascial strain, initial encounter Strain of neck muscle, initial encounter documented in this encounter Care Teams Embedded Hardware Engineer Relationship Specialty Start Date End Date Tamia Brooks MD [address] [place] [phone] PCP - General Internal Medicine 07/26/16 Yohan Barros DPM [facility] [phone] Podiatry 05/24/13 documented as of this encounter
--- OUTSIDE RECORDS SUMMARY | 2024-03-22 20:11 | XMS_ITS | Encounter Summary ---
Author Organization [facility] Health Address [address] [facility] [place] [address] Care Team Providers Care Vba Developer Name Role Phone Yohan Barros DPM Unavailable [phone] Tamia Brooks MD Primary Care Provider Efrain Dunlap MD Unavailable Tamia Brooks MD Unavailable [phone] Encounter Details Date Type Department Care Team (Latest Contact Info) Description 10/01/2019 4:20 PM CDT - 10/01/2019 11:59 PM T Hospital Encounter [facility] [address] [place] [address] Tamia Brooks MD [address] [facility] [address] [place] [address] Discharge Disposition: Home or Self [...] PM CDT documented as of this encounter Medications at [...] (PROVENTIL;VENTOLIN;PRO AIR) 108 (90 Base) MCG/ACT inhaler Inhale 2 puffs by mouth every 4 hours as needed for Shortness of Breath, Wheezing or Cough 1 Inhaler 5 07/22/2019 08/30/2020 blood glucose (ONETOUCH VERIO) test stripIndications:Diet-c ontrolled diabetes mellitus (HCC) Use 1 strip once daily 100 strip 5 01/06/2019 01/11/2020 Dextromethorphan-Guaife nesin (MUCINEX DM MAXIMUM STRENGTH PO) Take by mouth as needed 08/20/2022 diclofenac sodium EC (VOLTAREN) 75 MG tablet 75 mg 2 times daily 12/14/2018 08/30/2020 doxycycline hyclate (VIBRAMYCIN) 100 MG capsule 05/09/2019 03/29/2021 fluticasone propionate (FLONASE) 50 MCG/ACT nasal spray [place] 2 sprays into each nostril once daily 16 g 07/22/2019 10/05/2019 furosemide (LASIX) 20 MG tabletIndications:Venou s stasis dermatitis of both lower extremities,CKD (chronic kidney disease) stage 3, GFR 30-59 ml/min ([facility]) TAKE 1 TABLET TWICE A DAY 180 tablet 1 02/01/2019 10/05/2019 gabapentin (NEURONTIN) 300 MG capsule Take 1 capsule by mouth 3 times daily 270 capsule 1 05/04/2019 01/11/2020 guaiFENesin ER 12hr (MUCUS RELIEF ER) 600 MG tablet Take 600 mg by mouth every 12 hours 08/30/2020 lisinopril (PRINIVIL; ZESTRIL) 20 MG tabletIndications:Benig n essential HTN Take 1 tablet by mouth once daily 90 tablet 1 06/14/2019 01/21/2020 montelukast (SINGULAIR) 10 MG tablet Take 1 tablet by mouth at bedtime 30 tablet 5 07/22/2019 01/11/2020 Multiple Vitamins-Minerals (CENTRUM SILVER ULTRA WOMENS) TABS Take 1 Tab by mouth once daily. 08/30/2020 omeprazole (PRILOSEC) 40 MG capsuleIndications:Louie roesophageal reflux disease without esophagitis Take 1 capsule by mouth daily before breakfast 90 capsule 1 06/14/2019 11/09/2019 ONETOUCH DELICA LANCETS 33G MISC Use 1 [...] Description 06/29/2024 10:00 AM CDT Office Visit [facility] - Internal Medicine [address] [place] [address] [place] [phone] Tamia Brooks MD [address] [place] [phone] documented as of this encounter Goals Goal Patient Goal Type Associated Problems Recent Progress Patient-Stated? Author Blood Pressure < 140/90 Blood Pressure 130/70( 024 1:19 PM CDT) Lola Serna MA documented as of this encounter Procedures Procedure Name Priority Date/Time Associated Diagnosis Comments SARS-COV-2 (COVID-19) IN HOUSE Routine 10/01/2019 4:58 PM CDT Exposure to Covid-19 Virus documented in this encounter Results * (ABNORMAL) [facility] COVID PCR (10/01/2019 4:58 PM CDT) COVID-19 PCR Detected( AA) Not detected, Invalid 10/02/2019 12:35 PM CDT [facility] Microbiology SPECIMEN FROM NASOPHARYNGEAL STRUCTURE / Unknown Collection / Unknown 10/01/2019 4:58 PM CDT 10/01/2019 4:58 PM CDT Narrative [facility] - 10/02/2019 12:35 PM CDT This nucleic acid amplification assay performance was validated by [facility]. This test has been authorized [...] acid amplification assay performance was validated by [facility]. This test has been authorized [...] Tamia Brooks MD LAB - MICROBIOLOGY [facility] [address] [place] [address] [phone] documented in this encounter Visit Diagnoses Diagnosis Exposure to COVID-19 virus documented in this encounter Additional Health Concerns Infection Onset Date Last Indicated Resolved Time COVID-19 Under Investigation 10/01/2019 10/01/2019 10/02/2019 12:35 PM CDT documented as of this encounter Care Teams Vba Developer Relationship Specialty Start Date End Date Tamia Brooks MD [address] [place] [address] PCP - General Internal Medicine 07/26/16 Tamia Brooks MD [address] [place] [address] PCP - Attributed-MSSP 04/10/19 12/08/19 Yohan Barros DPM [address] [phone] Podiatry 05/24/13 Efrain Dunlap MD [address] [place] [address] Orthopedic Surgery 01/06/19 08/29/20 documented as of this encounter
--- OUTSIDE RECORDS SUMMARY | 2024-03-22 20:11 | XMS_ITS | Encounter Summary ---
Author Organization [facility] Address [address] [facility] [place] [address] Care Team Providers Care Security Screener Name Role Phone Yohan Barros DPM Unavailable [phone] Tamia Brooks MD Primary Care Provider Efrain Dunlap MD Unavailable Tamia Brooks MD Unavailable [phone] Encounter Details Date Type Department Care Team (Late Contact Info) Description 02/11/2020 Orders Only [facility] Medical [facility] - Internal Medicine [address] [address] Tamia Brooks MD [address] [place] [phone] Stage 3 chronic kidney disease, unspecified whether stage 3a or 3b CKD [...] [facility] - Internal Medicine [address] [facility] [address] [place] [address] Tamia Brooks MD [address] [facility] [address] [place] [address] documented as of this encounter Goals Goal Patient Goal Type Associated Problems Recent Progress Patient-Stated? Author Blood Pressure < 140/90 Blood Pressure 130/70( 024 1:19 PM CDT) Lola Serna MA documented as of this encounter Visit Diagnoses Diagnosis Stage 3 chronic kidney disease, unspecified whether stage 3a or 3b CKD (HCC)- Primary documented in this encounter Care Teams Security Screener Relationship Specialty Start Date End Date Tamia Brooks MD [address] [place] [address] [address] [place] [address] PCP - General Internal Medicine 07/26/16 Tamia Brooks MD [address] [place] [address] [address] [place] [address] PCP - Attributed-MSSP 01/09/20 03/29/21 Yohan Barros, DPM [address] [place] [phone] Podiatry 05/24/13 Efrain Dunlap MD [address] [place] [address] [address] [place] [address] Orthopedic Surgery 01/06/19 08/29/20 documented as of this encounter
--- OUTSIDE RECORDS SUMMARY | 2024-03-22 20:11 | XMS_ITS | Encounter Summary ---
Author Organization [facility] Address [address] [facility] [place] [address] Care Team Providers Care Lead Systems Engineer Name Role Phone Yohan Barros DPM Unavailable [phone] Tamia Brooks MD Primary Care Provider [phone] Efrain Dunlap MD Unavailable Tamia Brooks MD Unavailable [phone] Reason for Visit * Reason Onset Date Comments Reflux 11/09/2019 Encounter Details Date Type Department Care Team (Late st Contact Info) Description 11/09/2019 Telephone [facility] Medical [facility] - Internal Medicine [facility] [facility] [address] [place] [phone] Tamia Brooks MD [address] [place] [phone] Reflux Social History Tobacco Use Types [...] Telephone Encounter - Natasha Vazquez LPN - 11/09/2019 1:20 PM CDT Orders Placed This Encounter ??? pantoprazole EC (PROTONIX) 40 MG tablet Sig: Take 1 tablet by mouth 2 times daily for 14 days, THEN 1 tablet once daily. Reasons: Gastroesophageal Reflux Disease. Dispense: 60 tablet Refill: 2 Pt advised - she will call back in no improvement ER if her sxs worsen or if she develops melena, bloody stool, hematemesis or coffee ground emesis * Telephone Encounter - Tamia Brooks MD - 11/09/2019 12:47 PM CDT Can change to patoprazole 40 mg BID x 14 days, then go down to once daily. If sxs fail to improve with BID dosing, please contact the office. If sxs worsen, please contact the office. Go to ER for severe pain or if she has associated melena, hematemesis or coffee ground emesis. Tamia Brooks MD 11/09/2019 12:48 PM Orders Placed This Encounter ??? pantoprazole EC (PROTONIX) 40 MG tablet Sig: Take 1 tablet by mouth 2 times daily for 14 days, THEN 1 tablet once daily. Reasons: Gastroesophageal Reflux Disease. Dispense: 60 tablet Refill: 2 * Telephone Encounter - Shey Ramos - 11/09/2019 12:28 PM CDT Patient calling stating she does not believe her medication Omeprazole 40 MG is working. Patient stating last night she had to get up and take tums due to it hurting so bad. Patient is also stating she can feel it coming on now and would like to know if she needs to be on something different. Please advise, pharmacy on file. documented in this encounter Plan of Treatment Upcoming Encounters Date Type Department Care Team (Late st Contact Info) Description 06/29/2024 10:00 AM CDT Office Visit [facility] - Internal Medicine [address] [place] [address] [place] [phone] [place] [address] [place] [address] [address] [place] [address] documented as of this encounter Goals Goal Patient Goal Type Associated Problems Recent Progress Patient-Stated? Author Blood Pressure < 140/90 Blood Pressure 130/70( 024 1:19 PM CDT) Lola Serna MA documented as of this encounter Visit Diagnoses Not on filedocumented in this encounter Care Teams Lead Systems Engineer Relationship Specialty Start Date End Date Tamia Brooks MD [address] [place] [phone] PCP - General Internal Medicine 07/26/16 Tamia Brooks MD [address] [place] [phone] PCP - Attributed-MSSP 04/10/19 12/08/19 Yohan Barros, DPM [address] [place] [address] [place] [phone] Podiatry 05/24/13 Efrain Dunlap MD [address] [place] [phone] Orthopedic Surgery 01/06/19 08/29/20 documented as of this encounter
--- OUTSIDE RECORDS SUMMARY | 2024-03-22 20:11 | XMS_ITS | Encounter Summary ---
Author Organization [facility] Address [address] [place] [address] Care Team Providers Care End Trimmer Name Role Phone Yohan Barros DPM Unavailable [phone] Tamia Brooks MD Primary Care Provider [phone] Tamia Brooks MD Unavailable [phone] Reason for Visit * Reason Comments Refill Request Encounter Details Date Type Department Care Team (Late st Contact Info) Description 01/22/2021 Refill [facility] Medical [facility] - Internal Medicine [address] [place] [address] [place] [phone] Tamia Brooks MD [address] [place] [phone] Refill Request Social History Tobacco Use [...] encounter Miscellaneous Notes * Telephone Encounter - Yumiko Arevalo MA - 01/24/2021 9:18 AM CST Last appt: 08.30.20 Next appt: 02.16.21 Number of cancel or no shows in the last 12 months: 2 Allergies have been reviewed. Correct pharmacy is populated. Please sign RX and close encounter. AL TESTER documented in this encounter Plan of Treatment Upcoming Encounters Date Type Department Care Team (Late st Contact Info) Description 06/29/2024 10:00 AM CDT Office Visit [facility] - Internal Medicine [address] [facility] [address] [place] [address] Tamia Brooks MD [address] [place] [address] [place] [phone] documented as of this encounter Goals Goal Patient Goal Type Associated Problems Recent Progress Patient-Stated? Author Blood Pressure < 140/90 Blood Pressure 130/70( 024 1:19 PM CDT) No Lola Neff MA documented as of this encounter Visit Diagnoses Diagnosis Benign essential HTN Essential hypertension, benign documented in this encounter Care Teams End Trimmer Relationship Specialty Start Date End Date Tamia Brooks MD [address] [place] [phone] PCP - General Internal Medicine 07/26/16 Tamia Brooks MD [address] [place] [address] [place] [phone] PCP - Attributed-MSSP 01/09/20 03/29/21 Yohan Barros DPM [address] [place] [phone] Podiatry 05/24/13 documented as of this encounter
--- OUTSIDE RECORDS SUMMARY | 2024-03-22 20:11 | XMS_ITS | Encounter Summary ---
Author Organization [facility] Address [address] [place] [address] Care Team Providers Care Sloop Captain Name Role Phone Yohan Barros DPM Unavailable [phone] Tamia Brooks MD Primary Care Provider [phone] Efrain Dunlap MD Unavailable Tamia Brooks MD Unavailable [phone] Reason for Visit * Reason Onset Date Comments Future Appointment 05/10/2019 Encounter Details Date Type Department Care Team (Late st Contact Info) Description 05/10/2019 Telephone [facility] Medical [facility] - Internal Medicine [address] [facility] [address] [place] [address] Tamia Brooks MD [address] [place] [phone] Future Appointment Social History Tobacco Use Types Packs/Day [...] encounter Miscellaneous Notes * Telephone Encounter - Tamia Brooks MD - 05/10/2019 10:42 AM CST Noted. ING MACHINE FIXER * Telephone Encounter - April Pandya RN - 05/10/2019 9:46 AM CUTTING MACHINE FIXER Pt has a cold and went to a [facility] clinic. They diagnosed her with Pneumonia. Did breathing treatments while there. Pt has script for doxy and albuterol. Have booked appt. With Evelyn today. ING MACHINE FIXER documented in this encounter Plan of Treatment Upcoming Encounters Date Type Department Care Team (Late st Contact Info) Description 06/29/2024 10:00 AM CDT Office Visit [facility] - Internal Medicine [address] [place] [address] [place] [phone] Tamia Brooks MD [address] [place] [phone] documented as of this encounter Goals Goal Patient Goal Type Associated Problems Recent Progress Patient-Stated? Author Blood Pressure < 140/90 Blood Pressure 130/70( 024 1:19 PM CDT) Lola Serna MA documented as of this encounter Visit Diagnoses Not on filedocumented in this encounter Care Teams Sloop Captain Relationship Specialty Start Date End Date Tamia Brooks MD [address] [place] [phone] PCP - General Internal Medicine 07/26/16 Tamia Brooks MD [address] [place] [phone] PCP - Attributed-MSSP 04/10/19 12/08/19 Yohan Barros DPM [facility] [address] [place] [phone] Podiatry 05/24/13 Efrain Dunlap MD [address] [place] [phone] Orthopedic Surgery 01/06/19 08/29/20 documented as of this encounter
--- OUTSIDE RECORDS SUMMARY | 2024-03-22 20:11 | XMS_ITS | Encounter Summary ---
Author Organization [facility] Address [address] [facility] [place] [address] Care Team Providers Care Flange Machine Operator Name Role Phone Yohan Barros DPM Unavailable [phone] Tamia Brooks MD Primary Care Provider [phone] Efrain Dunlap MD Unavailable Tamia Brooks MD Unavailable [phone] Reason for Visit * Reason Onset Date Comments Results 05/10/2019 Encounter Details Date Type Department Care Team (Late st Contact Info) Description 05/10/2019 Telephone [facility] Medical [facility] - Internal Medicine [address] [phone] Bee Garland, EDILBERTO-ENROLLMENT NURSE [address] [place] [phone] Results Social History Tobacco Use Types Packs/Day [...] encounter Miscellaneous Notes * Telephone Encounter - Bee Garland APRN-MIKE - 05/10/2019 3:14 PM FILE MACHINE OPERATOR Called pt to inform her of clear CXR. Recommendation made to complete antibiotics and continue symptom management. MACHINE OPERATOR documented in this encounter Plan of Treatment Upcoming Encounters Date Type Department Care Team (Late st Contact Info) Description 06/29/2024 10:00 AM CDT Office Visit [facility] - Internal Medicine [address] [facility] [address] [place] [address] Tamia Brooks MD [address] [place] [address] [place] [phone] documented as of this encounter Goals Goal Patient Goal Type Associated Problems Recent Progress Patient-Stated? Author Blood Pressure < 140/90 Blood Pressure 130/70( 024 1:19 PM CDT) Lola Serna MA documented as of this encounter Visit Diagnoses Not on filedocumented in this encounter Care Teams Flange Machine Operator Relationship Specialty Start Date End Date Tamia Brooks MD [address] [place] [phone] PCP - General Internal Medicine 07/26/16 Tamia Brooks MD [address] [place] [phone] PCP - Attributed-MSSP 04/10/19 12/08/19 Yohan Barros DPM [facility] [address] [place] [phone] Podiatry 05/24/13 Efrain Dunlap MD [address] [place] [phone] Orthopedic Surgery 01/06/19 08/29/20 documented as of this encounter
--- OUTSIDE RECORDS SUMMARY | 2024-03-22 20:11 | XMS_ITS | Encounter Summary ---
Author Organization [facility] Address [address] [place] [address] Care Team Providers Care Electronics Hardware Design Engineer Name Role Phone Yohan Barros DPM Unavailable [phone] Tamia Brooks MD Primary Care Provider [phone] Reason for Visit * Reason Comments Obstructive Sleep Apnea Encounter Details Date Type Department Care Team (Late st Contact Info) Description 04/12/2021 1:15 PM FLIGHT ENGINEER INSPECTOR Video Visit [facility] Medical [facility] - Pulmonology [address] [facility], [address] [place] [address] Ramon Parker MD [address] [facility] [address] [place] [address] DAILY (obstructive sleep apnea) ; Allergic rhinitis, unspecified seasonality, unspecified trigger; Hypertension, [...] Sign Reading Time Taken Comments Blood Pressure - - Pulse - - Temperature - - Respiratory Rate - - Oxygen Saturation - - Inhaled Oxygen Concentration - - Weight - - Height 157.5 cm (5' 2 ) 04/12/2021 1:23 PM FLIGHT ENGINEER INSPECTOR Body Mass Index - - documented in this encounter Progress Notes * Ramon Parker MD - 04/12/2021 1:25 PM CST Pulmonary progress note Division of Internal Medicine-Pulmonary Diseases Office: ; fax [phone] Name: Maura Watkins 04/12/2021 Reason for follow-up Obstructive sleep apnea. Hypertension and postnasal drip Today's visit was conducted virtually due to COVID-19 countermeasures. The patient has given verbalconsent to have today's visit conducted by this same means with treatment provided remotely. The patient verbally consents to the billing and collection practices of [facility]. Patient location: Home This encounter was performed using: audio and video Time spent with patient/proxy: 21 minutes (greater than 21 minutes does not change coding) History of Present Illness ?? 71-year-old who had a tele health visit today. She was diagnosed with mild obstructive sleep [...] the machine. She does not use it in general when she takes naps in the afternoon. She uses the humidity and she does not get dry nose. No mask leak. She works out 5 days a week if the weather allows. She is retired. Occasional resless leg syndrome clinically. ?? Bedtime is 11:00 PM. She reads for about 15 minutes. Sleep onset latency within 30 minutes. Wake time is 7 AM usually. She somtimes goes to the gym. She also gets naps in the afternoon for about 2 hours. She is getting up to 8-9 hours of sleep at night and a total of 11 hours per 24 hours. No depression or anxiety. She feels happy overall. She did have recent bronchitis . She received prednisone and antibiotics. COVID- 19 was negative . She is also vaccinated boosted. She is slowly getting better. ?? - She also has postnasal drip. She takes Zyrtec daily and also Mucinex DM. Not currently using the Nasonex. Symptoms have mildly worsened. - She was started on Pepcid for GERD - She has hypertension that is currently treated [...] Types: Cigarettes Quit date: 03/10/1990 Years since quittin.1 ??? Smokeless tobacco: Never Used Substance and Sexual Activity ??? Alcohol use: Yes Comment: occ ??? Drug use: No ??? Sexual activity: Yes Partners: Male Allergies Allergen Reactions ??? Darvon Nausea and/or Vomiting and Dizziness MEDICATIONS FOR CURRENT ENCOUNTER: Current Outpatient Medications Medication Sig Dispense Refill ??? albuterol HFA (PROVENTIL; VENTOLIN; PROAIR) 108 (90 Base) MCG/ACT inhaler Inhale 2 (two) puffs by mouth every 6 hours as needed 18 g 0 ??? calcium 600 MG tablet Take [...] 1 TABLET DAILY 90 tablet 0 ??? rosuvastatin (CRESTOR) 10 MG tablet TAKE 1 TABLET ONCE DAILY FOR HIGH AMOUNT OF FATS IN THE BLOOD 90 tablet 0 No current facility-administered medications for this visit. Review of Systems All other systems reviewed and are negative. Ht 1.575 m (5' 2 ) BMI 36.47 kg/m?? O2: RA Physical exam Well-developed well-nourished. Not in distress Psychiatric: Normal mood and affect Respiratory: Breathing comfortably. Not using the accessory muscles Neurologic: Alert and oriented x3. Moving upper extremities Data 01/20/2017 ??9:44 AM - Ramon Parker MD Narrative Ramon Parker MD ? 01/20/2017 ??9:44 AM Polysomnogram sleep study. 66 year-old who reports snoring and excessive daytime sleepiness suspicious of sleep apnea was referred for a polysomnogram. The Charlotte Sleepiness Scale at the night of the study was 07/31 Recording montage. The patient underwent all night [...] for restless leg syndrome. Ramon Parker MD, [facility] Pulmonary and Sleep Medicine. Impression: ICD-10-CM 1. DAILY (obstructive sleep apnea) G47.33 2. Allergic rhinitis, unspecified seasonality, unspecified trigger J30.9 3. Hypertension, benign essential I10 Plan: 1. DAILY. Mild. Her AHI is 5.1. She did best with a pressure of 9 cm of water. Does use the machine every night. She had excellent compliance as of the last download. Instructed about the importance of no driving if she feels sleepy. ?? Weight loss is encouraged. Her machine is rest med. She is not affected by the nationwide [employer] recall. She did have periodic limb movements during the sleep study but she rarely has restless leg syndrome clinically. I will hold off on treating her periodic limb movements unless she has excessive daytime sleepiness. ?2. Allergic rhinitis. For which she uses Zyrtec and Mucinex DM. Symptoms got worse recently. Start Nasonex that she already has at home and use it 2 puffs each nostril once a day. She will notify me in 2-3 weeks about her response to the medication. 3. Hypertension. Treated with Amlodipine and lisinopril. She used to be on furosemide and now she is off of it. I discussed with her that treating sleep apnea tends to get the blood pressure under better control. ?? RTC in 1-2 years. Ramon Parker MD CC: Tamia Brooks MD [phone] Be advised that voice recognition software was used in the production of this record. Errors in interpretation may have been inadvertently missed during review. HT ENGINEER INSPECTOR documented in this encounter Plan of Treatment Upcoming Encounters Date Type Department Care Team (Late st Contact Info) Description 06/29/2024 10:00 AM CDT Office Visit [facility] Medical [facility] - Internal Medicine [address] [facility] [address] [place] [id number] Tamia Brooks MD [address] [place] [phone] documented as of this encounter Goals [...] benign documented in this encounter Care Teams Electronics Hardware Design Engineer Relationship Specialty Start Date End Date Taima Brooks MD [address] [facility] [address] [place] [address] PCP - General Internal Medicine 07/26/16 Yohan Barros DPM [address] [phone] Podiatry 05/24/13 documented as of this encounter
--- OUTSIDE RECORDS SUMMARY | 2024-03-22 20:11 | XMS_ITS | Encounter Summary ---
Author Organization [facility] Address [address] [place] [address] Care Team Providers Care Motor Vehicles Inspector Name Role Phone Yohan Barros DPM Unavailable [phone] Tamia Brooks MD Primary Care Provider Reason for Referral * Radiology Services (Routine) - Closed Specialty Diagnoses / Procedures Referred By Contac t Referred To Contact MRI Diagnoses DDD (degenerative disc disease), cervical Cervical radiculopathy Procedures MRI CERVICAL SPINE WO CONTRAST Tamia Brooks MD [address] [place] [phone] Referral ID Status Reason Start Date Expiration Date Visits Re quested Visits Authorized [id number] Closed 09/26/2021 09/26/2022 1 1 Encounter Details Date Type Department Care Team (Late st Contact Info) Description 09/26/2021 Orders Only [facility] Medical [facility] - Internal Medicine [address] [place] [address] [place] [phone] Tamia Brooks MD [address] [place] [address] [place] [phone] DDD (degenerative disc disease), cervical ; Cervical radiculopathy Social History Tobacco Use Types [...] [facility] [address] [facility] [address] [place] [phone] Tamia Brooks MD [address] [place] [phone] documented as of this encounter Goals Goal Patient Goal Type Associated Problems Recent Progress Patient-Stated? Author Blood Pressure < 140/90 Blood Pressure 130/70( 024 1:19 PM CDT) Lola Serna MA documented as of this encounter Results * MRI CERVICAL SPINE WO CONTRAST (10/04/2021) Anatomical Region Laterality Modality Pelvis Magnetic Resonan ce 10/04/2021 Tamia Brooks MD MR ORDERABLES documented in this encounter Visit Diagnoses Diagnosis DDD (degenerative disc disease), cervical- Primary Degeneration of cervical intervertebral disc Cervical radiculopathy Brachial neuritis or radiculitis nos documented in this encounter Care Teams Motor Vehicles Inspector Relationship Specialty Start Date End Date Tamia Brooks MD [address] [place] [phone] PCP - General Internal Medicine 07/26/16 Yohan Barros DPM [address] [facility] [address] [place] [place] [address] Podiatry 05/24/13 documented as of this encounter
--- OUTSIDE RECORDS SUMMARY | 2024-03-22 20:11 | XMS_ITS | Encounter Summary ---
Author Organization [facility] Address [address] [place] [address] Care Team Providers Care Sr Technical Sales Consultant Name Role Phone Yohan Barros DPM Unavailable [phone] Tamia Brooks MD Primary Care Provider Efrain Dunlap MD Unavailable Tamia Brooks MD Unavailable [phone] Renu Del Real RN Unavailable [phone] Reason for Visit * Reason Comments Refill Request Encounter Details Date Type Department Care Team (Late st Contact Info) Description 10/05/2019 Refill [facility] Medical [facility] - Internal Medicine [facility] [address] [address] Tamia Brooks MD [address] [place] [phone] Refill Request Social History Tobacco Use [...] Telephone Encounter - Yumiko Arevalo MA - 10/05/2019 3:01 PM CDT Last appt: 05.10.19 Next appt: 01.11.20 Number of cancel or no shows in the last 12 months: 1 Allergies have been reviewed. Correct pharmacy is populated. Please sign RX and close encounter. documented in this encounter Plan of Treatment Upcoming Encounters Date Type Department Care Team (Late st Contact Info) Description 06/29/2024 10:00 AM CDT Office Visit [facility] Medical [facility] - Internal Medicine [address] [place] [phone] Tamia Brooks MD [address] [place] [phone] documented as of this encounter Goals Goal Patient Goal Type Associated Problems Recent Progress Patient-Stated? Author Blood Pressure < 140/90 Blood Pressure 130/70( 024 1:19 PM CDT) Lola Serna MA documented as of this encounter Visit Diagnoses Diagnosis Venous stasis dermatitis of both lower extremities CKD (chronic kidney disease) stage 3, GFR 30-59 ml/min (HCC) Chronic kidney disease, Stage III (moderate) Mixed hyperlipidemia documented in this encounter Additional Health Concerns Infection Onset Date Last Indicated Resolved Time COVID-19 Confirmed 10/01/2019 10/01/2019 0 4:34 AM CDT documented as of this encounter Care Teams Sr Technical Sales Consultant Relationship Specialty Start Date End Date Tamia Brooks MD [address] [place] [phone] PCP - General Internal Medicine 07/26/16 Tamia Brooks MD [address] [place], [place] [phone] PCP - Attributed-MSSP 04/10/19 12/08/19 Yohan Barros DPM [address] [facility] [address] [place] [phone] Podiatry 05/24/13 Efrain Dunlap MD [address] [place] [phone] Orthopedic Surgery 01/06/19 08/29/20 Renu Del Real, RN [address] [facility] [address] [place] [address] Assistant GroceryBoat Tester 10/05/19 10/06/19 documented as of this encounter
--- OUTSIDE RECORDS SUMMARY | 2024-03-22 20:11 | XMS_ITS | Encounter Summary ---
Author Organization [facility] Address [address] [facility] [address] [place] [address] Care Team Providers Care Stay Cutter Name Role Phone Yohan Barros DPM Unavailable [phone] Tamia Brooks MD Primary Care Provider [phone] Tamia Brooks MD Unavailable [phone] Encounter Details Date Type Department Care Team (Latest Contact Info) Description 01/03/2021 Travel Social History Tobacco Use Types Packs/Day [...] Office Visit [facility] Medical [facility] - Internal Medicine [address] [facility] [address] [place] [address] Tamia Brooks MD [address] [place] [phone] documented as of this encounter Goals Goal Patient Goal Type Associated Problems Recent Progress Patient-Stated? Author Blood Pressure < 140/90 Blood Pressure 130/70( 024 1:19 PM CDT) Lola Serna MA documented as of this encounter Visit Diagnoses Not on filedocumented in this encounter Care Teams Stay Cutter Relationship Specialty Start Date End Date Tamia Brooks MD [address] [place] [phone] PCP - General Internal Medicine 07/26/16 Tamia Brooks MD [address] [place] [phone] PCP - Attributed-MSSP 01/09/20 03/29/21 Yohan Barros DPM [address] [facility] [address] [place] [phone] Podiatry 05/24/13 documented as of this encounter
--- OUTSIDE RECORDS SUMMARY | 2024-03-22 20:12 | XMS_ITS | Encounter Summary ---
Author Organization [facility] Address [address] [facility] [place] [address] Care Team Providers Care Building Superintendent Name Role Phone Yohan Barros DPM Unavailable [phone] Tamia Brooks MD Primary Care Provider Reason for Referral * Evaluate & Treat - Closed Specialty Diagnoses / Procedures Referred By Valeria ramesh Referred To Contact Surgery-General Diagnoses Breast pain, left Tamia Brooks MD [address] [facility] [address] [place] [address] Jada Mahoney MD [address] [facility] [address] [place] [address] Referral ID Status Reason Start Date Expiration Date V isits Requested Visits Authorized [id number] Closed Specialty Services Required 06/25/2018 12/22/2018 1 1 Reason for Visit * Reason Comments Hypertension Encounter Details Date Type Department Care Team (Late Contact Info) Description 06/25/2018 1:00 PM CDT Office Visit [facility] - Internal Medicine [address] [place] [address] [address] [place] [address] Tamia Brooks MD [address] [facility] [address] [place] [phone] Breast pain, left (Primary Dx); Benign essential HTN; Chronic diastolic congestive heart failure (HCC); CKD (chronic kidney disease) stage 3, GFR 30-59 ml/min (HCC); Mixed hyperlipidemia; DAILY (obstructive sleep apnea); Class 1 obesity due to excess calories with serious comorbidity and body mass index (BMI) of 32.0 to 32.9 in adult; Primary osteoarthritis of both knees; Venous stasis dermatitis of both lower extremities; DDD (degenerative disc disease), lumbar; Gastroesophageal reflux disease without esophagitis; Anhydrotic dermatitis of foot 04/27/12; Allergic rhinitis, unspecified seasonality, unspecified trigger; Chronic insomnia; Osteopenia, unspecified location; Prediabetes; Situational mixed anxiety and depressive disorder Social History Tobacco Use Types Packs/Day Years [...] Sign Reading Time Taken Comments Blood Pressure 126/80 06/25/2018 1:40 PM CDT Pulse 73 06/25/2018 12:35 PM CDT Temperature 35.9 ??C (96.6 ??F) 06/25/2018 12:35 PM C DT Respiratory Rate - - Oxygen Saturation 95% 06/25/2018 12:35 PM CDT Inhaled Oxygen Concentration - - Weight 88.5 kg (195 lb) 06/25/2018 12:35 PM CDT Height 165.1 cm (5' 5 ) 06/25/2018 12:35 PM CDT Body Mass Index 32.45 06/25/2018 12:35 PM CDT documented in this encounter Patient Instructions * Patient Instructions* Bianca Gant LPN - 06/25/2018 12:35 PM CDT Please arrive 15 minutes early to your next appointment. Following your visit, you may receive a survey via email or U.S. Mail about your experience with us. We encourage you to respond to this confidential survey about our care. We at [facility] are committed toalways providing you with the most exceptional care. Your feedback helps us provide quality serviceat every visit. Labs: You have labs pending. You do need to be fasting for this. Please go to your nearest [facility] to get this done at your convenience. There is one in our building ([address] [place] [address]), [address]. Caring for Your High Blood Pressure Diet Eat a healthy diet: ??? Eat healthy foods from all of the 5 food groups which are fruits, vegetables, breads, dairy products, meat and fish. Eating healthy foods may help you feel better and have more energy. ??? To help control your blood pressure, you may need to limit the amount of salt and fat you eat. Read labels to see how much sodium (salt or sodium chloride) is in the food that you buy at the store. Avoid foods and drinks that are high in sodium (salt). These include smoked meats (such as ham and pak), cheese, canned and frozen foods, and butter and margarine. Read all labels carefully. Do not add salt to your food. Learn to use fresh herbs, spices, or salt substitutes to add flavor to your food. Ask your provider for any dietary restrictions that are appropriate for you. Where can I go for more information? [employer] National Center: http://www.americanheart.org 1. In the top header, click ???Conditions?? . 2. In the top header, click ???high blood pressure.?? 3. For a printable blood pressure tracker, scroll toward the bottom of the page to Related Tools, and click ???HBP Trackers.?? 8-984-BEP-USA-1 or ( ) National Heart, Lung and Blood [place]: http://www.nhlbi.nih.gov/health/infoctr/index.htm documented in this encounter Progress Notes * Tamia Brooks MD - 06/25/2018 1:18 PM CDT Tamia Brooks MD [facility] - Department of Internal Medicine [address] [place] [address]., [address] [place] [address] History of Present Illness Maura Watkins is a 68 year old female who presents to the office Chief Complaint Patient presents with ??? Hypertension Patient is a 68-year-old female with a past medical history significant for allergic rhinitis, insomnia, CKD 3, HLD, HTN, pre diabetes, OA knees, anxiety and depression who presents today for follow up. ? L breast pain: - this is still ongoing. She has US and mammogram which was normal. She reports pain is a sharp stabbing pain in her L breast. Occurs w/ rest and exertion. Happens every 3 days, lasts a few seconds She mentions some SOB, but thinks it's mild and due to weight gain. 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 She has stopped scratching. DDD lumbar - states this pain is tolerable overall ?? HTN/HLD/ CKD3 -??meds: ??Lisinopril 20 mg po qday, lipitor 40 mg, lasix 20 mg BID - BP at home: She is not checking - has cut back on caffeine ?? - compliance is good - Denies ACMPUZANO, CP, SOB, myalgia BP Readings from Last 3 Encounters: 06/25/18 126/80 04/23/18 128/80 02/18/18 138/90 GERD - controlled currently on PPI ?? Weight gain/ Obesity/Pre-diabetes?? She works out regularly Allergic rhinitis - controlled - denies facial pain or pressure, ear pain or pressure, PND, f/c, n/g ?? DAILY - using CPAP nightly Wt Readings from Last 3 Encounters: 06/25/18 88.5 kg (195 lb) 04/23/18 87.5 kg (193 lb) 02/18/18 87.5 kg (193 lb) Weight change: + 2 lbs since the last visit here. Aerobic exercise: irregularly Blood pressure checks: No Glucose monitoring: No Labs reviewed: Did them today. Recent Labs Component Name 04/11/18 09/26/17 0935 05/22/17 0835 09/26/16 0802 SODIUM 142 147* 143 143 POTASSIUM 4.5 5.1 4.6 4.9 CHLORIDE 104 105 102 101 CO2 22 23 22 23 BUN 18 18 17 23 CREATININE - 1.27* 1.35* 1.24* GLUCOSE 113 123* 125* 113* CALCIUM 9.8 10.4* 10.1 9.6 Recent Labs Component Name 09/26/16 0802 07/13/14 0847 08/28/13 0848 TSH 2.080 2.060 2.440 Recent Labs Component Name 04/17/17 0911 09/26/16 0802 07/13/14 0847 WBC 5.7 4.9 5.5 HGB 12.7 12.4 13.3 HCT 39.9 36.8 40.8 PLTCOUNT 302 312 300 Recent Labs Component Name 09/16/16 07/13/14 0847 08/28/13 0848 HGBA1C 5.9 5.9* 6.1* Recent Labs Component Name 09/26/16 0802 10/04/15 0732 07/13/14 0847 CHOL 181 279* 154 TRIG 130 121 78 HDL 47 58 58 LDLCALC 108* 197* 80 No results for input(s): MICROALBUGML in the last 71888 hours. No results for input(s): MICROALBCREA in the last 19784 hours. No results for input(s): INR in the last 70938 hours. Past Medical, Surgical, Social, and Family Histories Patient Active Problem List Diagnosis Date Noted ??? Chronic diastolic congestive heart failure 05/27/2017 [...] stage 3, GFR 30-59 ml/min 06/23/2014 GFR -, 05-22-17 ??? Situational mixed anxiety and depressive [...] Nausea and/or Vomiting and Dizziness Current Outpatient Prescriptions Medication Sig Dispense Refill ??? atorvastatin (LIPITOR) 40 MG tablet Take 1 tablet by mouth at bedtime 90 tablet 1 ??? calcium 600 MG tablet Take 2 Tabs by mouth daily with food ??? Cetirizine HCl (ZYRTEC PO) Take by mouth nightly as needed ??? Cholecalciferol (VITAMIN D-3) 1000 UNITS Take by mouth 2 times daily ??? Dextromethorphan-Guaifenesin (MUCINEX DM MAXIMUM STRENGTH PO) Take by mouth as needed ??? furosemide (LASIX) 20 MG tablet Take [...] mouth daily before breakfast 90 capsule 1 No current facility-administered medications for this visit. Immunization History Administered Date(s) Administered ??? FLU VACCINE TRI INC ANTIG PF 01/06/2015, 12/29/2015 ??? Influenza 11/17/2008, 12/08/2009, 01/06/2011, 01/10/2012, 01/13/2013, 01/13/2013, 11/22/2013 [...] noted. Allergy: No congestion or allergic sx. + L breast pain Physical Examination Vitals: 06/25/18 1235 06/25/18 1340 BP: 150/92 126/80 Pulse: 73 Temp: 96.6 ??F (35.9 ??C) SpO2: 95% Weight: 88.5 kg (195 lb) Height: 1.651 m (5' 5 ) CrCl cannot be calculated (Patient's most recent sCr result is older than the maximum 15 days allowed.). Body mass index is 32.45 kg/(m^2). General appearance: alert and NAD SKIN: No [...] normal all 4 extrem. Assessment and Plan .1. Breast pain, left - uncontrolled - mammogram was normal - due to ongoing pain, will refer to breast surgeon - AMB REFERRAL TO BREAST SURGERY; Future - HM RISK ADJUSTED VISIT 2. Benign essential HTN - controlled - continue current medications - lisinopril (PRINIVIL; ZESTRIL) 20 MG tablet; Take 1 tablet by mouth once daily Dispense: 90 tablet; Refill: 1 - HM RISK ADJUSTED VISIT 3. Chronic diastolic congestive heart failure - controlled - continue current medications - HM RISK ADJUSTED VISIT 4. CKD (chronic kidney disease) stage 3, GFR 30-59 ml/min - controlled .- continue current medications - avoid nephrotoxic medications - furosemide (LASIX) 20 MG tablet; Take 1 tablet by mouth 2 times daily Dispense: 180 tablet; Refill: 1 - HM RISK ADJUSTED VISIT 5. Mixed hyperlipidemia - controlled .- continue current medications - atorvastatin (LIPITOR) 40 MG tablet; Take 1 tablet by mouth at bedtime Dispense: 90 tablet; Refill: 1 - HM RISK ADJUSTED VISIT 6. DAILY (obstructive sleep apnea) - controlled - continue CPAP nightly - HM RISK ADJUSTED VISIT 7. Class 1 obesity due to excess calories with serious comorbidity and body mass index (BMI) of 32.0 to 32.9 in adult - stable - increase exercise and improve diet - HM RISK ADJUSTED VISIT 8. Primary osteoarthritis of both knees - stable - continue current medications - HM RISK ADJUSTED VISIT 9. Venous stasis dermatitis of both lower extremities - controlled - continue current medications - furosemide (LASIX) 20 MG tablet; Take 1 tablet by mouth 2 times daily Dispense: 180 tablet; Refill: 1 - HM RISK ADJUSTED VISIT 10. DDD (degenerative disc disease), lumbar - stable - continue current medications 11. Gastroesophageal reflux disease without esophagitis - controlled - continue current medications - omeprazole (PRILOSEC) 40 MG capsule; Take 1 capsule by mouth daily before breakfast Dispense: 90 capsule; Refill: 1 - HM RISK ADJUSTED VISIT 12. Anhydrotic dermatitis of foot 04/27/12 - HM RISK ADJUSTED VISIT 13. Allergic rhinitis, unspecified seasonality, unspecified trigger - controlled - continue current medications - HM RISK ADJUSTED VISIT 14. Chronic insomnia - controlled - continue current medications - HM RISK ADJUSTED VISIT 15. Osteopenia, unspecified location - pt on vit d and calcium - HM RISK ADJUSTED VISIT 16. Prediabetes - increase exercise and improve diet - RISK ADJUSTED VISIT 17. Situational mixed anxiety and depressive disorder - controlled - continue current medications - RISK ADJUSTED VISIT The above was discussed with the patient and understanding was voiced. Patient is in agreement withthe above plan HM: - KYLE completed Health Maintenance Topic Date Due ??? DTAP/TDAP/TD VACCINES (1 - Tdap) 1967 ??? ZOSTER VACCINE (1 of 2) 1998 ??? HCC (Chart Reviewer Use Only) 08/12/2018 ??? BONE DENSITY TESTING 09/27/2018 ??? ANNUAL MEDICARE WELLNESS VISIT 02/18/2019 ??? MAMMOGRAM 04/29/2020 ??? SCREENING FOR DIABETES 09/26/2020 ??? COLON CA SCREENING 11/06/2023 ??? PNEUMOCOCCAL VACCINE Completed ??? INFLUENZA VACCINE Completed ??? HEPATITIS C SCREENING Completed ??? HIB VACCINE Aged Out ??? MENINGOCOCCAL VACCINE Aged Out Return to office: Return in about 6 months (around 12/25/2018) for f/u chronic medical problems . documented in this encounter Plan of Treatment Upcoming Encounters Date Type Department Care Team (Late st Contact Info) Description 06/29/2024 10:00 AM CDT Office Visit [facility] - Internal Medicine [address] [address] Tamia Brooks MD [address] [place] [phone] documented as of this encounter Goals Goal Patient Goal Type Associated Problems Recent Progress Patient-Stated? Author Blood Pressure < 140/90 Blood Pressure 130/70( 024 1:19 PM CDT) No Lola Neff MA documented as of this encounter Results * AMB REFERRAL TO BREAST SURGERY (08/01/2018 10:29 PM CDT) Tamia Brooks MD OUTPATIENT REFERRALS documented in this encounter Visit Diagnoses Diagnosis Breast pain, left- Primary Mastodynia Benign essential HTN Essential hypertension, benign Chronic diastolic congestive heart failure (HCC) Chronic diastolic heart failure CKD (chronic kidney disease) stage 3, GFR 30-59 ml/min (HCC) Chronic kidney disease, Stage III (moderate) Mixed hyperlipidemia DAILY (obstructive sleep apnea) Obstructive sleep apnea (adult) (pediatric) Class 1 obesity due to excess calories with serious comorbidity and body mass index (BMI) of 32.0 to 32.9 in adult Primary osteoarthritis of both knees Primary localized osteoarthrosis, lower leg Venous stasis dermatitis of both lower extremities DDD (degenerative disc disease), lumbar Degeneration of lumbar or lumbosacral intervertebral disc Gastroesophageal reflux disease without esophagitis Esophageal reflux Anhydrotic dermatitis of foot 04/27/12 Contact dermatitis and other eczema, due to unspecified cause Allergic rhinitis, unspecified seasonality, unspecified trigger Chronic insomnia Insomnia, unspecified Osteopenia, unspecified location Prediabetes Other abnormal glucose Situational mixed anxiety and depressive disorder Adjustment disorder with mixed anxiety and depressed mood documented in this encounter Care Teams Building Superintendent Relationship Specialty Start Date End Date Tamia Brooks MD [address] [address] PCP - General Internal Medicine 07/26/16 Yohan Barros DPM [address] [address] Podiatry 05/24/13 documented as of this encounter
--- OUTSIDE RECORDS SUMMARY | 2024-03-22 20:12 | XMS_ITS | Encounter Summary ---
Author Organization [facility] Address [address] [facility] [place] [address] Care Team Providers Care Boating Safety Officer Name Role Phone Yohan Barros DPM Unavailable [phone] Tamia Brooks MD Primary Care Provider [phone] Reason for Visit * Reason Onset Date Comments Med Question 11/13/2018 Encounter Details Date Type Department Care Team (Late st Contact Info) Description 11/13/2018 Telephone [facility] Medical [facility] - Internal Medicine [address] [facility] [address] [place] [address] Tamia Brooks MD [address] [place] [address] [place] [phone] Med Question Social History Tobacco Use [...] * Telephone Encounter - Audra Bernal - 11/13/2018 12:56 PM CDT VM that supplies were ordered. * Telephone Encounter - Tamia Brooks MD - 11/13/2018 12:29 PM CDT She has newly diagnosed DM2 - diet controlled. Last A1c 6.5%. Check once daily. * Telephone Encounter - Michelle Long LPN - 11/13/2018 10:34 AM CDT She's pre-diabetic? Is she supposed to test daily? * Telephone Encounter - Eve Shannon - 11/13/2018 9:39 AM CDT Who is calling? self If other than self is caller listed on the HIPAA? yes If caller is anyone other than listed above, where are they calling from? What is the reason for call? Patient called would like to know if the doctor would call in a new scripts for Onetouch Verio Test Strips, and Deliza Lancets. Patient is leaving to go out of town on Friday, and asked if the medicine could be called into [facility] today. # [phone] Expected Response from the Clinic? ( ex. Call back, etc..) [phone] documented in this encounter Plan of Treatment Upcoming Encounters Date Type Department Care Team (Late st Contact Info) Description 06/29/2024 10:00 AM CDT Office Visit [facility] Medical [facility] - Internal Medicine [address] [facility] [address] [place] [phone] Tamia Brooks MD [address] [place] [address] [place] [phone] documented as of this encounter Goals Goal Patient Goal Type Associated Problems Recent Progress Patient-Stated? Author Blood Pressure < 140/90 Blood Pressure 130/70( 024 1:19 PM CDT) Lola Serna MA documented as of this encounter Visit Diagnoses Not on filedocumented in this encounter Care Teams Boating Safety Officer Relationship Specialty Start Date End Date Tamia Brooks MD [address] [facility] [address] [place] [address] PCP - General Internal Medicine 07/26/16 Yohan Barros DPM [address] [facility] [address] [place] [address] Podiatry 05/24/13 documented as of this encounter
--- OUTSIDE RECORDS SUMMARY | 2024-03-22 20:12 | XMS_ITS | Encounter Summary ---
Author Organization [facility] Address [address] [facility] [place] [address] Care Team Providers Care Chronic Disease Manager Name Role Phone Yohan Barros DPM Unavailable [phone] Tamia Brooks MD Primary Care Provider Encounter Details Date Type Department Care Team (Late st Contact Info) Description 09/18/2016 Orders Only [facility] - GI [address] [place] [address] James Calix MD [address] [place] [address] Gastroesophageal reflux disease, esophagitis presence not specified Social History Tobacco Use Types Packs/Day Years Used Date Smoking Tobacco: Former Cigarettes Q uit: 03/10/1990 Smokeless Tobacco: Never Alcohol Use Standard Drinks/Week Comments Yes 0 (1 standard drink = 0.6 oz pur e alcohol) occ Sex and Gender Information Value Date Recorded Sex Assigned at Not on file Gender Identity Female 11/22/2016 11:14 AM CDT Sexual Orientation Not on file documented as of this encounter Patient Instructions * Patient Instructions* Heriberto Wyman - 09/18/2016 2:46 PM CDT PREPARATION FOR UPPER ENDOSCOPY Please arrive at 10am for your procedure which is scheduled at 11:30am, on 10/04/16. Please report to: [facility]-Endoscopy Department Ground floor, East Entrance [address] [facility] [address] NO FOOD OR DRINK AFTER MIDNIGHT BEFORE YOUR EXAM. MEDICATION INSTRUCTIONS: DISCUSS WELL IN ADVANCE OF YOUR PROCEDURE: If you are taking Persantine, Heparin, Coumadin (Warfarin) or Plavix as prescribed by your physician, please phone us at [phone] well in advance of your procedure. 3 DAYS BEFORE your procedure, stop taking any blood thinners, for example- Aspirin, Motrin, Advil, Aleve, Ibuprofen, Aggrenox, Excedrin or Naprosyn, Persantine, etc. 1 WEEK BEFORE your procedure, please stop any prescription iron medication. DO NOT EAT OR DRINK ANYTHING AFTER MIDNIGHT THE NIGHT BEFORE YOUR PROCEDURE: Except for important medications such as blood pressure, heart or seizure medications, which may betaken the morning of your procedure with a sip of water. ON THE DAY OF your procedure: BRING A LIST OF YOUR CURRENT MEDICATIONS BRING SOMEONE TO DRIVE YOU HOME. (The medication you will receive will prevent you from driving or working safely the day of your exam). 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 The physician will discuss the findings with you and your family members following your procedure. Thank you for allowing us to participate in your care. Questions?? If so, please call us at If you have any questions regarding this procedure or preparation for it, please call our office at [phone] or [phone]. documented in this encounter Progress Notes * Heriberto Wyman - 09/18/2016 2:47 PM CDT Pt sched EGD [facility] 10/04/16@11:30am, mailed instructions to pt, order in [facility]. Scheduled with patient. documented in this encounter Plan of Treatment Upcoming Encounters Date Type Department Care Team (Late st Contact Info) Description 06/29/2024 10:00 AM CDT Office Visit [facility] - Internal Medicine [address] [phone] Tamia Brooks MD [address] [place] [address] [place] [phone] documented as of this encounter Goals Goal Patient Goal Type Associated Problems Recent Progress Patient-Stated? Author Blood Pressure < 140/90 Blood Pressure 130/70( 024 1:19 PM CDT) Lola Serna MA documented as of this encounter Visit Diagnoses Diagnosis Gastroesophageal reflux disease, esophagitis presence not specified- Primary documented in this encounter Care Teams Chronic Disease Manager Relationship Specialty Start Date End Date Tamia Brooks MD [address] [place] [phone] PCP - General Internal Medicine 07/26/16 Yohan Barros DPM [address] [place] [phone] Podiatry 05/24/13 documented as of this encounter
--- OUTSIDE RECORDS SUMMARY | 2024-03-22 20:12 | XMS_ITS | Encounter Summary ---
Author Organization [facility] Address [address] [facility] [place] [address] Care Team Providers Care Painter And Grader Cork Name Role Phone Yohan Barros DPM Unavailable [phone] Tamia Brooks MD Primary Care Provider Reason for Visit * Reason Comments Refill Request Encounter Details Date Type Department Care Team (Late st Contact Info) Description 09/12/2017 Refill [facility] - Internal Medicine [address] [facility] [address] [place], [place] [id number] Tamia Brooks MD [address] [facility] [address] [place] [address] Refill Request Social History Tobacco Use [...] encounter Miscellaneous Notes * Telephone Encounter - Tobias Ghosh - 09/12/2017 4:17 PM CDT Last OV: 08/28/2017 Next OV: 02/18/18 Number of cancel or no shows in the last 12 months: 0 Allergies have been reviewed. Correct pharmacy is populated. Please sign RX and close encounter. documented in this encounter Plan of Treatment Upcoming Encounters Date Type Department Care Team (Late st Contact Info) Description 06/29/2024 10:00 AM CDT Office Visit [facility] - Internal Medicine [address] [facility] [address] [place] [address] Tamia Brooks MD [address] [place] [phone] documented as of this encounter Goals Goal Patient Goal Type Associated Problems Recent Progress Patient-Stated? Author Blood Pressure < 140/90 Blood Pressure 130/70( 024 1:19 PM CDT) No Lola Neff MA documented as of this encounter Visit Diagnoses Not on filedocumented in this encounter Care Teams Painter And Grader Cork Relationship Specialty Start Date End Date Tamia Brooks MD [address] [place] [phone] PCP - General Internal Medicine 07/26/[address] [facility] [place] [address] [place] [address] Podiatry 05/24/13 documented as of this encounter
--- OUTSIDE RECORDS SUMMARY | 2024-03-22 20:12 | XMS_ITS | Encounter Summary ---
Author Organization [facility] Address [address] [facility] [address] Care Team Providers Care Cupola Charger Name Role Phone Yohan Barros DPM Unavailable [phone] Tamia Brooks MD Primary Care Provider Reason for Referral * Evaluate (Routine) - Closed Specialty Diagnoses / Procedures Referred By Contac t Referred To Contact Nutrition Services Diagnoses Prediabetes CKD (chronic kidney disease) stage 3, GFR 30-59 ml/min ([facility]) Tamia Brooks MD [address] [employer] [address] [place] [phone] Referral ID Status Reason Start Date Expiration Date V isits Requested Visits Authorized [id number] Closed Specialty Services Required 11/12/2016 05/11/2017 4 4 Reason for Visit * Evaluate (Routine) - Closed Specialty Diagnoses / Procedures Referred By Contac t Referred To Contact Nutrition Services Diagnoses Prediabetes CKD (chronic kidney disease) stage 3, GFR 30-59 ml/min ([facility]) Tamia Brooks MD [address] [employer] [address] [place] [address] Referral ID Status Reason Start Date Expiration Date V isits Requested Visits Authorized [id number] Closed Specialty Services Required 11/12/2016 05/11/2017 4 4 Encounter Details Date Type Department Care Team (Latest Contact Info) Description 12/04/2016 3:30 PM CDT - 12/04/2016 11:59 PM CDT Hospital Encounter [facility]UTRITION [address] [place] [address] Vanda Sun, MANAGER OF FINANCE-BIOTECHNOLOGIST [address] [facility] [address] [place] [address] Discharge Disposition: Home or Self Care Social [...] - Inhaled Oxygen Concentration - - Weight 81 kg (178 lb 8 oz) 12/04/2016 4:00 PM CD T Height 165.1 cm (5' 5 ) 12/04/2016 4:00 PM CDT Body Mass Index 29.7 12/04/2016 4:00 PM CDT documented in this encounter Medications at Time of Discharge Medication Sig Dispensed Refills Start Date End Date calcium 600 MG tablet Take 2 (two) tablets by mouth daily with food Cetirizine HCl (ZYRTEC PO) Take by mouth nightly as needed Cholecalciferol (VITAMIN D-3) 1000 UNITS Take by mouth once daily amLODIPine (NORVASC) 5 MG tablet Take 1 Tab by mouth once daily 90 Tab 3 02/02/2016 02/11/2017 atorvastatin (LIPITOR) 40 MG tablet Take 1 Tab by mouth at bedtime 90 Tab 1 10/14/2016 09/12/2017 clobetasol (TEMOVATE) 0.05 % creamIndications:Dermati tis of foot,Atopic dermatitis, unspecified type Apply to affected area 2 times daily Until rash improves but no more than 14 days. 45 g 11/12/2016 05/13/2017 cyclobenzaprine (FLEXERIL) 10 MG tabletIndications:CKD (chronic kidney disease) stage 3, GFR 30-59 ml/min (HCC) Take 1 Tab by mouth 3 times daily as needed for Muscle Spasms 30 Tab 09/16/2016 05/13/2017 Dextromethorphan-Guaifen esin (MUCINEX DM MAXIMUM STRENGTH PO) Take by mouth as needed 08/20/2022 fluticasone propionate (FLONASE) 50 MCG/ACT nasal sprayIndications:Allergi c rhinitis, unspecified allergic rhinitis type Duson 1 Duson into each nostril once daily 07/10/2015 03/18/2017 lisinopril (PRINIVIL; ZESTRIL) 20 MG tablet Take 1 Tab by mouth once daily 90 Tab 3 02/02/2016 02/11/2017 Multiple Vitamins-Minerals (CENTRUM SILVER ULTRA WOMENS) TABS Take 1 Tab by mouth once daily. 08/30/2020 omeprazole (PRILOSEC) 40 MG capsuleIndications:Gastr oesophageal reflux disease without esophagitis Take 1 Cap by mouth 2 times daily,before breakfast and supper 90 Cap 3 09/16/2016 02/24/2017 documented as of this encounter Consult Notes * Georgia Varela, ANGELICA/YAN - 12/04/2016 4:30 PM CDT Chronic Renal Disease MNT Session Number: Session I Date: 12/04/2016 Patient: Maura Watkins (66 y.o.) PCP: Tamia Brooks MD Referring Provider: Vanda Ascencio, MANAGER OF FINANCE-BIOTECHNOLOGIST Prediabetes [R73.03] CKD (chronic kidney disease) stage 3, GFR 30-59 ml/min [N18.3] Patient Summary: Patient and her Avelino attended MNT session today. Pt and are retired. Patient awareof CKD 3 diagnosis and appeared motivated to make changes. She reported a gradual increase in her weight over the years. Her reported weight gain has been more rapid over the past 3-4 years. Patient participates in water aerobics classes 5 days per week. 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 Patient reported following a high protein diet over the last few weeks with goal of weight loss. She c/o constant hunger throughout the day. does most of the cooking and appears to have above average cooking skills. They report making an effort to limit high sodium foods, along with sweets. Patient rarely drinks ETOH. Patient's goals are to lose 30-40 lbs, stay at CKD 3, and prevent onset of Type 2 DM. Discussed renal diet guidelines (limiting protein to 50 grams/day, restricting sodium to <2000 mg/day, limiting high potassium and phosphorus foods, portion sizes, and meal planning). Discussed low sodium diet guidelines (limiting processed or high sodium foods, reading the food label, monitoring serving sizes, meal planning and salt substitutes). Discussed weight management guidelines. Encouraged 3 meals + 1 snack per day, and provided meal and snack options for patient to follow as a guide. Encouraged self-monitoring of food (at least 3x week). Patient was receptive to education and adherence is expected to be good. Patient will return for follow up in ~ 1 month. Assessment: Secondary Diagnoses/Co-morbidities: Hypertension;Dyslipidemia;Obesity Clinical Data: Height: 5' 5 (165.1 cm) Weight: 178 lb 8 oz (81 kg) BMI (Calculated): 29.7 Pertinent Labs: Recent Labs Component Name 09/26/16 0802 06/05/15 1330 SODIUM 143 140 POTASSIUM 4.9 4.5 CHLORIDE 101 105 CO2 23 28 BUN 23 23* CREATININE 1.24* 1.10 GLUCOSE 113* 92 CALCIUM 9.6 9.7 ALBUMIN 4.7 - ALKPHOS 131* - ALT 19 - AST 22 - TBIL 0.5 - TPROT 7.0 - EGFR 45* 50* Recent Labs Component Name 09/26/16 0802 10/04/15 0732 CHOL 181 279* TRIG 130 121 HDL 47 58 LDLCALC 108* 197* Recent Labs Component Name 09/16/16 HGBA1C 5.9 Nutritional Diagnostic Statement: Diagnosis: (NC 2.2) Altered nutrition related laboratory values Related to: lack of prior nutrition-related education As evidenced by: A1c of 5.9, LDL 0f 108, GFR of 45. Intervention: Patient educated on Low Sodium Diet with 50 grams protein per day. Encouraged limiting high Potassium and Phosphorous foods. Please refer to Chronic Renal Disease MNT Doc Flowsheet for further details. Materials provided: Eating with Kidney disease Handout, Spice it Up, Teaching Method: Explanation;Handout Goals: Nutrition Goal #1: Limit Protein intake to 50 grams/day. Nutrition Goal #1Progress: New goal established Nutrition Goal #2: Limit Sodium to less than 2000 mg/day. Nutrition Goal #2 Progress: New goal established Nutrition Goal #3: Self-monitor food intake (3 meals + 1 snack daily) Nutrition Goal #3 Progress: New goal established MNT Goals/Outcomes: Goal: Kcalories: 1600 (20 kcal/kg actual) Goal: Potassium (mg): Limit high Potassium Foods Goal: Sodium (mg): 1500-2000mg Goal: Protein (g): 50 grams/day (.6g/kg actual BW) Goal: Phosphorus (mg): Limit High Phosphorous Foods Monitor: Pt encouraged to call/email RD with questions and/or concerns. Evaluation of Overall Compliance Potential: Comprehension: Often Demonstrated Receptivity: Often Demonstrated Adherence: Never Demonstrated Session Date: 12/04/16 Session beginning time: 1509 Session ending time: 1609 Session total minutes: 60 Minutes Next visit: 01/02/17 Thank you for the referral. Georgia Varela RD/YAN documented in this encounter Plan of Treatment Upcoming Encounters Date Type Department Care Team (Late st Contact Info) Description 06/29/2024 10:00 AM CDT Office Visit [facility] Medical [facility] - Internal Medicine [address] [facility] [address] [place] [phone] Tamia Brooks MD [address] [place] [phone] Scheduled Referrals Name Type Priority Associated Diagnoses Order Schedule AMB REFERRAL TO MED NUTRITION THERAPY Outpatient Referral Routine Prediabetes CKD (chronic kidney disease) stage 3, GFR 30-59 ml/min ([facility]) 1 Occurrences starting 12/04/2016 until 12/04/2016 documented as of this encounter Goals Goal Patient Goal Type Associated Problems Recent Progress Patient-Stated? Author Blood Pressure < 140/90 Blood Pressure 130/70( 024 1:19 PM CDT) Lola Serna MA documented as of this encounter Visit Diagnoses Diagnosis Prediabetes Other abnormal glucose CKD (chronic kidney disease) stage 3, GFR 30-59 ml/min (HCC) Chronic kidney disease, Stage III (moderate) documented in this encounter Care Teams Cupola Charger Relationship Specialty Start Date End Date Tamia Brooks MD [address] [facility] [address] [place] [address] PCP - General Internal Medicine 07/26/16 Yohan Barros DPM [address] [facility] [address] [place] [phone] Podiatry 05/24/13 documented as of this encounter
--- OUTSIDE RECORDS SUMMARY | 2024-03-22 20:12 | XMS_ITS | Encounter Summary ---
Author Organization [facility] Address [address] [facility] [place] [address] Care Team Providers Care Health Systems Analyst Name Role Phone Yohan Barros DPM Unavailable [phone] Tamia Brooks MD Primary Care Provider Reason for Referral * Radiology Services (Routine) - Closed Specialty Diagnoses / Procedures Referred By Valeria ramesh Referred To Contact Diagnoses Abnormal mammogram Procedures MAMMO LEFT DIAGNOSTIC Tamia Brooks MD [address] [facility] [address] [place] [phone] Referral ID Status Reason Start Date Expiration Date Visits Re quested Visits Authorized [id number] Closed 04/07/2018 10/04/2018 1 1 SUPERVISOR Reason for Visit * Reason Onset Date Comments Results 04/03/2018 Encounter Details Date Type Department Care Team (Late st Contact Info) Description 04/03/2018 Telephone [facility] - Internal Medicine [address] [facility] [address] [place] [phone] Tamia Brooks MD [facility] [facility] [address] [place] [address] Results Social History Tobacco Use Types [...] * Telephone Encounter - Audelia Dash - 04/08/2018 9:17 AM CST Faxed to [facility], [facility] received SUPERVISOR * Telephone Encounter - Tamia Brooks MD - 04/07/2018 3:53 PM CST . Orders Placed This Encounter ??? US BREAST LEFT LTD Will be performed at [facility] if needed. Standing Status: Future Standing Expiration Date: 04/07/2019 Order Specific Question: Exam to be performed? Answer: Per Radiologist protocol ??? MAMMO LEFT DIAGNOSTIC Will be performed at [facility] Standing Status: Future Standing Expiration Date: 04/07/2019 Order Specific Question: Reason for Exam Answer: abnormal mammo SUPERVISOR * Telephone Encounter - Audelia Dash - 04/07/2018 2:53 PM CST Received results letter, will forward to Dr Brooks for further instructions SUPERVISOR * Telephone Encounter - Bee Harvey MA - 04/03/2018 3:11 PM CST [facility] [phone] Maura Watkins called saying the past few years she has had her mammogram at the above location. Today she received a letter saying her results required further testing & they wanted Dr. Brooks to order further testing. Does not look like we have any mammo results in her chart, pt to mail letter & call [facility] to request they send over all mammo results's. Will also forward to Audelia to follow up on & possibly call & get results faxed. Pt states she will mail letter that she got for our records. SUPERVISOR documented in this encounter Plan of Treatment Upcoming Encounters Date Type Department Care Team (Late st Contact Info) Description 06/29/2024 10:00 AM CDT Office Visit [facility] - Internal Medicine [address] [facility] [address] [place] [address] Tamia Brooks MD [address] [facility] [address] [place] [address] documented as of this encounter Goals Goal Patient Goal Type Associated Problems Recent Progress Patient-Stated? Author Blood Pressure < 140/90 Blood Pressure 130/70( 024 1:19 PM CDT) No Lola Neff MA documented as of this encounter Results * MAMMO LEFT DIAGNOSTIC (04/29/2018) Anatomical Region Laterality Modality Breast Left Mammography Tamia Brooks MD MAMMO ORDERABLES documented in this encounter Visit Diagnoses Diagnosis Abnormal mammogram- Primary Abnormal mammogram, unspecified documented in this encounter Care Teams Health Systems Analyst Relationship Specialty Start Date End Date Tamia Brooks MD [facility] [phone] PCP - General Internal Medicine 07/26/16 Yohan Barros DPM [facility] [place] [phone] Podiatry 05/24/13 documented as of this encounter
--- OUTSIDE RECORDS SUMMARY | 2024-03-22 20:12 | XMS_ITS | Encounter Summary ---
Author Organization [facility] Address [address] [facility] [place] [address] Care Team Providers Care New Car Salesperson Name Role Phone Yohan Barros DPM Unavailable [phone] Lemuel Hoang MD Primary Care Provider Unavailab le Reason for Referral * Radiology Services (Routine) - Closed Specialty Diagnoses / Procedures Referred By Contac t Referred To Contact Diagnoses Chronic right-sided low back pain without sciatica Spondylosis of lumbar region without myelopathy or radiculopathy Procedures MRI LUMBAR SPINE WO CONTRAST Lemuel Hoang MD [facility] [address] [facility] [address] [place] [phone] Referral ID Status Reason Start Date Expiration Date Visits Re quested Visits Authorized [id number] Closed 01/12/2016 07/10/2016 1 1 Encounter Details Date Type Department Care Team (Late st Contact Info) Description 01/12/2016 Orders Only [facility] - Internal Medicine [address] [facility] [place] [address] [place] [address] Lemuel Hoang MD RETIRED Chronic right-sided low back pain without sciatica ; Spondylosis of lumbar region without myelopathy or radiculopathy Social History Tobacco Use Types Packs/Day [facility] [address] [facility] [address] [place] [address] Tamia Brooks MD [address] [facility] [address] [place] [address] documented as of this encounter Goals Goal Patient Goal Type Associated Problems Recent Progress Patient-Stated? 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
--- OUTSIDE RECORDS SUMMARY | 2024-03-22 20:12 | XMS_ITS | Encounter Summary ---
Author Organization [facility] Address [address] [facility] [place] [address] Care Team Providers Care Speech Pathology Supervisor Name Role Phone Yohan Barros DPM Unavailable [phone] Lemuel Hoang MD Primary Care Provider Unavailab le Reason for Visit * Reason Comments Refill Request Encounter Details Date Type Department Care Team (Late st Contact Info) Description 02/02/2016 Refill [facility] Medical [facility] - Internal Medicine [address] [facility] [place] [place] [address] Lemuel Hoang MD RETIRED Refill Request Social History Tobacco Use Types [...] Miscellaneous Notes * Telephone Encounter - Lizbeth Rivas - 02/02/2016 8:57 AM CST Requested Prescriptions Pending Prescriptions Disp Refills ??? amLODIPine (NORVASC) 5 MG tablet [Pharmacy Med Name: AMLODIPINE BESYLATE TABS 5MG] 90 Tab 0 Sig: Take 1 Tab by mouth once daily ??? lisinopril (PRINIVIL; ZESTRIL) 20 MG tablet [Pharmacy Med Name: LISINOPRIL TABS 20MG] 90 Tab 0 Sig: Take 1 Tab by mouth once daily Last OV: 12/29/2015 Next OV: Visit date not found Last Fill: 11/06/2015 TAL PRINTER OPERATOR documented in this encounter Plan of Treatment Upcoming Encounters Date Type Department Care Team (Late st Contact Info) Description 06/29/2024 10:00 AM CDT Office Visit [facility] - Internal Medicine [address] [facility] [address] [place] [address] Tamia Brooks MD [address] [place] [address] [address] [place] [address] documented as of this encounter Goals Goal Patient Goal Type Associated Problems Recent Progress Patient-Stated? Author Blood Pressure < 140/90 Blood Pressure 130/70( 024 1:19 PM CDT) No Lola Neff MA documented as of this encounter Visit Diagnoses Not on filedocumented in this encounter Care Teams Speech Pathology Supervisor Relationship Specialty Start Date End Date Lemuel Hoang MD [address] [place] [phone] PCP - General Family Medicine 05/06/14 07/25/16 Yohan Barros DPM [address] [place] [phone] Podiatry 05/24/13 documented as of this encounter
--- OUTSIDE RECORDS SUMMARY | 2024-03-22 20:12 | XMS_ITS | Encounter Summary ---
Author Organization [facility] Address [address] [facility] [place] [address] Care Team Providers Care Retail Pharmacy Merchandiser Name Role Phone Yohan Barros DPM Unavailable [phone] Tamia Brooks MD Primary Care Provider [phone] Reason for Visit * Reason Comments Obstructive Sleep Apnea Pt is here to fo llow up on DAILY Encounter Details Date Type Department Care Team (Late st Contact Info) Description 04/23/2018 1:00 PM CLEAN UP WORKER Office Visit [facility] - Pulmonology [address] [facility], [address] [place] [address] Ramon Parker MD [address] [place] [address] [address] [place] [address] DAILY (obstructive sleep apnea) (Primary Dx); [...] Sign Reading Time Taken Comments Blood Pressure 128/80 04/23/2018 1:13 PM CLEAN UP WORKER Pulse 68 04/23/2018 1:13 PM CLEAN UP WORKER Temperature - - Respiratory Rate 16 04/23/2018 1:13 PM CLEAN UP WORKER Oxygen Saturation 98% 04/23/2018 1:13 PM CLEAN UP WORKER Inhaled Oxygen Concentration - - Weight 87.5 kg (193 lb) 04/23/2018 1:13 PM CLEAN UP WORKER Height 165.1 cm (5' 5 ) 04/23/2018 1:13 PM CLEAN UP WORKER Body Mass Index 32.12 04/23/2018 1:13 PM CLEAN UP WORKER documented in this encounter Progress Notes * Ramon Parker MD - 04/23/2018 1:10 PM CST Pulmonary progress note Division of Internal Medicine-Pulmonary Diseases Office: ; fax [phone] Name: Maura Watkins 04/23/2018 Chief Complaint Follow up visit for DAILY, hypertension and postnasal drip History of Present Illness ?? 66-year-old presents today for a yearly appointment. She was diagnosed with mild obstructive sleep apnea. AHI 5.1. She was referred for CPAP titration and she did best with a pressure of 9 cm of water. Periodic limb movements were seen during the test. SVT was seen. She did receive her machine and she has been using it and she feels more awake and less sleepy during the day. No nocturia. No sleepiness while driving. She uses a nasal pillow mask. She does like the machine. She uses during the night hours. She does not use it when she takes naps in the afternoon. ?? She works out 5 days a week. [...] control. She has hypertension that is currently treated. Past Medical History: Diagnosis Date ??? Anhydrotic [...] hernia-Yogi ??? Hysterectomy Family History Problem Relation Age of Onset ??? Heart Failure Mother ??? Lung Cancer Father smoker ??? Cancer - Colon Brother 55 2008 ??? Cancer - Breast Maternal Aunt Social History Occupational History ??? Not on file. Social History Main Topics ??? Smoking status: Former Smoker Packs/day: 0.20 Years: 12.00 Types: Cigarettes Quit date: 03/10/1990 ??? Smokeless tobacco: Never Used ??? Alcohol use Yes Comment: occ ??? Drug use: No ??? Sexual activity: Yes Partners: Male Allergies Allergen Reactions ??? Darvon Nausea and/or Vomiting and Dizziness MEDICATIONS FOR CURRENT ENCOUNTER: Current Outpatient Prescriptions Medication Sig Dispense Refill ??? atorvastatin (LIPITOR) 40 MG tablet Take 1 tablet by mouth at bedtime 90 tablet 1 ??? calcium 600 MG tablet Take 2 Tabs by mouth daily with food ??? Cetirizine HCl (ZYRTEC PO) Take by mouth nightly as needed ??? Cholecalciferol (VITAMIN D-3) 1000 UNITS Take by mouth 2 times daily ??? clotrimazole-betamethasone (LOTRISONE) 1-0.05 % cream Apply to affected area 2 times daily 45 g0 ??? Dextromethorphan-Guaifenesin (MUCINEX DM MAXIMUM STRENGTH PO) Take by mouth as needed ??? furosemide (LASIX) 20 MG tablet Take 1 tablet by mouth 2 times daily 180 tablet 3 ??? gabapentin (NEURONTIN) 300 MG capsule Take 1 capsule by mouth 3 times daily 270 capsule 4 ??? glucosamine-chondroitin (GLUCOSAMINE CHONDR COMPLEX) 500-400 MG capsule Take 1 capsule by mouthonce daily 30 capsule 5 ??? lisinopril (PRINIVIL; ZESTRIL) 20 MG tablet Take 1 tablet by mouth once daily 90 tablet 3 ??? Multiple Vitamins-Minerals (CENTRUM SILVER ULTRA WOMENS) TABS Take 1 Tab by mouth once daily. ??? omeprazole (PRILOSEC) 40 MG capsule TAKE 1 CAPSULE TWICE A DAY BEFORE BREAKFAST AND SUPPER 180 capsule 1 No current facility-administered medications for this visit. Review of Systems All other systems reviewed and are negative. BP 128/80 (BP SITE: LEFT ARM, BP POSITION: SITTING, BP CUFF SIZE: 12) Pulse 68 Resp 16 Wt 87.5 kg (193 lb) SpO2 98% BMI 32.12 kg/m2 FiO2: O2: RA Physical Exam Constitutional: She is oriented to person, place, and time. She appears well- developed and well-nourished. No distress. HENT: Head: Normocephalic and atraumatic. Nose: Nose normal. Mouth/Throat: Oropharynx is clear and moist. No oropharyngeal exudate. Class 4 mallampati Neck: Neck supple. No tracheal deviation present. No thyromegaly present. 16 inches neck Cardiovascular: Normal rate, regular rhythm and normal heart sounds. Exam reveals no gallop and no friction rub. No murmur heard. Pulmonary/Chest: Effort normal and breath sounds normal. No stridor. No respiratory distress. She exhibits no tenderness. Musculoskeletal: Normal range of motion. She exhibits no edema or tenderness. Lymphadenopathy: She has no cervical adenopathy. Neurological: She is alert and oriented to person, place, and time. Skin: Skin is warm and dry. She is not diaphoretic. Psychiatric: She has a normal mood and affect. Her behavior is normal. Judgment and thought contentnormal. Nursing note and vitals reviewed. Data [place] sleepiness scale: 07/3101/20/2017 ??9:44 AM - Ramon Parker MD Narrative Ramon Parker MD ? 01/20/2017 ??9:44 AM Polysomnogram sleep study. 66 year-old who reports snoring and excessive daytime sleepiness suspicious of sleep apnea was referred for a polysomnogram. The [place] Sleepiness Scale at the night of the study was 5 Recording montage. The patient underwent all night [...] for restless leg syndrome. Ramon Parker MD, [facility]. PAP Compliance data over the past 30 days shows 97 % of the nights machine usage. Out of which 97 % of the nights the machine was used for more than 4 hours. Set pressure 9 cm of water. AHI 2.9 Impression: ICD-10-CM 1. DAILY (obstructive sleep apnea) G47.33 2. Allergic rhinitis, unspecified seasonality, unspecified trigger J30.9 3. Hypertension, benign essential I10 Plan: 1. DAILY. Mild. Her AHI is 5.1. She did best with a pressure of 9 cm of water. Her compliance is excellent. No driving while sleepy. ??Weight loss is encouraged. 1 run of SVT for few seconds was seen during the study and she wanted to discuss that with Dr. Brooks. She wanted to hold off on cardiology [...] 3. HTN. Treated with Amlodipine and lisinopril. I discussed with her that treating sleep apnea tends to get the blood pressure under better control. ?? RTC in 1 year. Ramon Parker MD CC: Tamia Brooks MD [phone] Be advised that voice recognition software was used in the production of this record. Errors in interpretation may have been inadvertently missed during review. N UP WORKER documented in this encounter Plan of Treatment Upcoming Encounters Date Type Department Care Team (Late st Contact Info) Description 06/29/2024 10:00 AM CDT Office Visit [facility] - Internal Medicine [address] [address] Tamia Brooks MD [address] [place] [id number] documented as of this encounter Goals [...] benign documented in this encounter Care Teams Retail Pharmacy Merchandiser Relationship Specialty Start Date End Date Tamia Brooks MD [address] [facility] [address] [place] [address] PCP - General Internal Medicine 07/26/16 Yohan Barros DPM [address] [id number] Podiatry 05/24/13 documented as of this encounter
--- OUTSIDE RECORDS SUMMARY | 2024-03-22 20:12 | XMS_ITS | Encounter Summary ---
Author Organization [facility] Address [address] [facility] [place] [address] Care Team Providers Care Wind Energy Engineer Name Role Phone Yohan Barros DPM Unavailable [phone] Tamia Brooks MD Primary Care Provider [phone] Encounter Details Date Type Department Care Team (Late Contact Info) Description 04/18/2018 Orders Only [facility] [address] [place] [address] Document, Scanned Social History Tobacco Use Types [...] Visit [facility] - Internal Medicine [facility] [facility] [address] [place] [address] Tamia Brooks MD [address] [place] [id number] documented as of this encounter Goals Goal Patient Goal Type Associated Problems Recent Progress Patient-Stated? Author Blood Pressure < 140/90 Blood Pressure 130/70( 024 1:19 PM CDT) No Lola Neff MA documented as of this encounter Procedures Procedure Name Priority Date/Time Associated Diagnosis Comments IMAGING/RADIOLOGY/XRAY RESUL TS ORDER Routine 06/24/2017 documented in this encounter Results * IMAGING/RADIOLOGY/XRAY RESULTS ORDER (06/24/2017) Anatomical Region Laterality Modality Other Scanned Document IMAGING documented in this encounter Visit Diagnoses Not on filedocumented in this encounter Care Teams Wind Energy Engineer Relationship Specialty Start Date End Date Tamia Brooks MD [address] [facility] [address] [place] [address] PCP - General Internal Medicine 07/26/16 Yohan Barros DPM [address] [facility] [address] [place] [address] Podiatry 05/24/13 documented as of this encounter
--- OUTSIDE RECORDS SUMMARY | 2024-03-22 20:12 | XMS_ITS | Encounter Summary ---
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 8:02 AM CDT 09/26/2016 Narrative Resulting Agency Comment [facility] [address] [facility] ??[facility] [phone] Tamia Brooks MD LAB - HEMATOLOGY ORD ERABLES [facility] INSURANCE BILL [address] [place] [address] * TSH HI LOW REFLEX FREE T4 (09/26/2016 8:02 AM CDT) TSH 2.080 0.450 - 4.500 uIU/mL [facility] INSURANCE BILL Comment:FASTING Blood BLOOD SPECIMEN / Unknown 09/26/2016 8:02 AM CDT 09/26/2016 Narrative Resulting Agency Comment [facility] [address] [facility] ??[facility] [phone] Tamia Brooks MD LAB - CHEMISTRY ORDE RABWALT [facility] INSURANCE BILL [address] [place] [address] * (ABNORMAL) LIPID PROFILE (09/26/2016 8:02 AM CDT) Cholesterol 181 100 - 199 mg/dL [facility] INSURANCE BILL Triglycerides 130 0 - 149 mg/dL [facility] INSURANCE BILL HDL Cholesterol 47 >39 mg/dL [facility] INSURANCE BILL VLDL Calculated 26 5 - 40 mg/dL [facility] INSURANCE BILL LDL Calculated 108(H) 0 - 99 mg/dL [facility] INSURANCE BILL Comment NOT NEEDED [facility] INSURANCE BILL Comment: FASTING Ancillary determined the test is not needed Blood BLOOD SPECIMEN / Unknown 09/26/2016 8:02 AM CDT 09/26/2016 Narrative Resulting Agency Comment [facility] [place] [id number] [facility] ??[place] [phone] Tamia Brooks MD LAB - CHEMISTRY PREETI COSTA [facility] INSURANCE BILL [address] [place] [address] * (ABNORMAL) CULTURE URINE (09/16/2016 11:28 AM [...] CDT 09/16/2016 Narrative Resulting Agency Comment [facility] [place] [address] [facility] ??[facility] [phone] Tamia Brooks MD LAB - MICROBIOLOGY O RDERABLES [facility] INSURANCE BILL [address] [place] [address] * HEMOGLOBIN A1C - POINT OF CARE (AMB) (09/16/2016) Hemoglobin A1c POCT 5.9 % QC Verified Yes Yes Blood BLOOD SPECIMEN / Unknown 09/16/2016 Tamia Brooks MD LAB - POINT OF CARE ORDERABLES * URINALYSIS - POINT OF CARE (09/16/2016) Clarity UA POCT cloudy Color UA POCT dk yellow Leukocyte UA large Negative Nitrite UA POCT neg Negative Urobilinogen UA 0.2 0.1 - 1.0 Protein UA POCT trace Negative pH UA 5.5 5.0 - 8.0 pH units Blood UA moderate Negative Specific [place] UA POCT <1.005 1.002 - 1.030 Ketone UA neg Negative Bilirubin UA POCT neg Negative Glucose UA neg Negative Urine URINE / Unknown 09/16/2016 Tamia Brooks MD LAB - POINT OF CARE ORDERABLES documented in this encounter Visit Diagnoses Diagnosis Gastroesophageal reflux disease without esophagitis- Primary Esophageal reflux Acute cystitis with hematuria Acute cystitis Groin strain, left, initial encounter Chronic allergic rhinitis, unspecified seasonality, unspecified trigger Hypertension, benign essential Essential hypertension, benign CKD (chronic kidney disease) stage 3, GFR 30-59 ml/min (HCC) Chronic kidney disease, Stage III (moderate) Hyperlipidemia, unspecified hyperlipidemia type Osteopenia, unspecified location Asymptomatic menopausal state Asymptomatic postmenopausal status (age-related) (natural) Non morbid obesity due to excess calories Prediabetes Other abnormal glucose Need for hepatitis C screening test Special screening examination for other specified viral diseases Encounter for vitamin deficiency screening Screening for other and unspecified endocrine, nutritional, metabolic, and immunity disorders Encounter for general adult medical examination with abnormal findings Routine general medical examination at a health care facility Need for vaccination Need for prophylactic vaccination and inoculation against unspecified single disease Asymptomatic menopausal state Asymptomatic postmenopausal status (age-related) (natural) Osteopenia, unspecified location documented in this encounter Care Teams Benefit Specialist Relationship Specialty Start Date End Date Tamia Brooks MD [address] [facility] [address] [place] [id number] PCP - General Internal Medicine 07/26/16 Yohan Barros DPM [address] [address] Podiatry 05/24/13 documented as of this encounter
--- OUTSIDE RECORDS SUMMARY | 2024-03-22 20:12 | XMS_ITS | Encounter Summary ---
Author Organization [facility] Health Address [address] [facility] [address] Care Team Providers Care Vp Of Marketing Name Role Phone Yohan Barros DPM Unavailable [phone] Tamia Brooks MD Primary Care Provider [phone] Encounter Details Date Type Department Care Team (Latest Contact Info) Description 01/02/2017 12:29 PM CDT - 01/02/2017 11:59 PM CDT Hospital Encounter [facility] [address] [place] [address] Tamia Brooks MD [address] [facility] [address] [place] [address] Discharge Disposition: Home or Self [...] Weight 81 kg (178 lb 8 oz) 01/02/2017 1:00 PM CD T Height 165.1 cm (5' 5 ) 01/02/2017 1:00 PM CDT Body Mass Index 29.7 01/02/2017 1:00 PM CDT documented in this encounter Medications [...] sprayIndications:Allergi c rhinitis, unspecified allergic rhinitis type [place] 1 [place] into each nostril once daily 07/10/2015 03/18/2017 [...] 09/16/2016 02/24/2017 documented as of this encounter Progress Notes * Georgia Varela, ANGELICA/YAN - 01/02/2017 1:28 PM CDT Chronic Renal Disease MNT Session Number: Session II Date: 01/02/2017 Patient: Maura Watkins (66 y.o.) PCP: Tamia Brooks MD Referring Provider: Tamia Brooks MD CKD Stage 3, GFR 30-59 ml/min [N18.3] Patient Summary: Patient and (Avelino) attended 2nd session of MNT for CKD 3. Patient stated I almost canceled. I haven't been doing what you asked . Patient kept food records for 1 week. Food records indicatepatient is consuming a moderate amount of protein as discussed during last visit. Patient disappointed that she has not lost weight. We discussed her motivation for weight loss and she rated motivation to be a 4 for weight loss on a scale of 1-10. Patient ultimately decided she is more motivated tomaintain her kidney function. We discussed focusing her energy on decreasing the sodium in her dietwith the hope that weight loss may be a nice side effect of choosing foods lower in sodium. Diet recall indicated patient is mainly consuming higher sodium foods when dining out (2-3x per week per ). Patient continues to do water aerobics 5x per week. Weight is stable over the past month. Nonew labs since last visit. Discussed low sodium diet guidelines (limiting processed or high sodium foods, reading the food label, monitoring serving sizes, meal planning and salt substitutes). Provided low sodium diet materials. Patient was receptive to education and adherence is expected to be good. Patient will return in ~ 1month for follow up. Assessment: Secondary Diagnoses/Co-morbidities: Other (comments);Hypertension;Obesity;Dyslipidemia (Pre-Diabetes) Clinical Data: Height: 5' 5 (165.1 cm) [...] EGFR 45* 50* Recent Labs Component Name 09/16/16 HGBA1C 5.9 Recent Labs Component Name 09/26/16 0802 10/04/15 0732 CHOL 181 279* TRIG 130 121 HDL 47 58 LDLCALC 108* 197* Current Outpatient Prescriptions on File Prior to Encounter Medication Sig Dispense Refill ??? Cholecalciferol (VITAMIN D-3) 1000 UNITS Take by mouth 2 times daily ??? calcium 600 MG tablet Take 2 Tabs by mouth daily with food ??? clobetasol (TEMOVATE) 0.05 % cream Apply to affected area 2 times daily Until rash improves butno more than 14 days. 45 g 0 ??? atorvastatin (LIPITOR) 40 MG tablet Take 1 Tab by mouth at bedtime (Patient taking differently:Take 20 mg by mouth at bedtime ) 90 Tab 1 ??? Dextromethorphan-Guaifenesin (MUCINEX DM MAXIMUM STRENGTH PO) [...] breakfast and supper 90 Cap 3 ??? amLODIPine (NORVASC) 5 MG tablet Take 1 Tab by mouth once daily 90 Tab 3 ??? lisinopril (PRINIVIL; ZESTRIL) 20 MG tablet Take 1 Tab by mouth once daily 90 Tab 3 ??? fluticasone propionate (FLONASE) 50 MCG/ACT nasal spray [place] 1 [place] into each nostril once daily ??? Multiple Vitamins-Minerals (CENTRUM SILVER ULTRA WOMENS) TABS Take 1 Tab by mouth once daily. No current facility-administered medications on file prior to encounter. Nutritional Diagnostic Statement: Diagnosis: (NC 2.2) Altered nutrition related laboratory values Related to: lack of prior nutrition-related education As evidenced by: A1c of 5.9, LD of 108, GFR 45. Intervention: Reviewed Low Sodium Diet and reinforced moderate protein restriction. Please refer toChronic Renal Disease MNT Doc Flowsheet for further details. Materials provided: Low Sodium Booklet Teaching Method: Explanation;Handout Goals: Nutrition Goal #1: Meal Plan daily. Nutrition Goal #1Progress: New goal established Nutrition Goal #2: Limit sodium to <2000 mg. Nutrition Goal #2 Progress: Goal not met;Continue with current goal Nutrition Goal #3: Monitor weight weekly. Nutrition Goal #3 Progress: New goal established MNT Goals/Outcomes: Goal: Kcalories: 1600 Goal: Sodium (mg): 1500-2000mg Goal: Protein (g): 50g (.6g/kg BW) Monitor: Pt encouraged to call/email RD with questions and/or concerns. Evaluation of Overall Compliance Potential: Comprehension: Sometimes Demonstrated Receptivity: Sometimes Demonstrated Adherence: Rarely Demonstrated Session Date: 01/02/17 Session beginning time: 1228 Session ending time: 1319 Session total minutes: 51 Minutes Next visit: 02/04/17 Thank you for the referral. Georgia Varela RD/YAN documented in this encounter Plan of Treatment Upcoming Encounters Date Type Department Care Team (Late st Contact Info) Description 06/29/2024 10:00 AM CDT Office Visit [facility] - Internal Medicine [address] [facility] [address] [place] [address] Tamia Brooks MD [address] [address] documented as of this encounter Goals Goal Patient Goal Type Associated Problems Recent Progress Patient-Stated? Author Blood Pressure < 140/90 Blood Pressure 130/70( 024 1:19 PM CDT) Lola Serna MA documented as of this encounter Visit Diagnoses Not on filedocumented in this encounter Care Teams Vp Of Marketing Relationship Specialty Start Date End Date Tamia Brooks MD [address] [place] [phone] PCP - General Internal Medicine 07/26/16 Yohan Barros DPM [address] [place] [id number] Podiatry 05/24/13 documented as of this encounter
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
--- OUTSIDE RECORDS SUMMARY | 2024-03-22 20:12 | XMS_ITS | Encounter Summary ---
Author Organization [facility] Address [address] [place] [address] Care Team Providers Care Blacksmith Assistant Name Role Phone Yohan Barros DPM Unavailable [phone] Tamia Brooks MD Primary Care Provider [phone] Reason for Visit * Reason Comments Sleep Apnea Pt is here to follow up on DAILY Encounter Details Date Type Department Care Team (Late st Contact Info) Description 04/22/2017 1:30 PM SOFTWARE QUALITY SPECIALIST Office Visit [facility] Medical [facility] - Pulmonology [address], [address] [place] [address] Ramon Parker MD [address] [place] [address] DAILY (obstructive sleep apnea) (Primary Dx); Hypertension, benign essential; Chronic allergic rhinitis, unspecified seasonality, unspecified trigger Social History Tobacco Use Types Packs/Day Years [...] Sign Reading Time Taken Comments Blood Pressure 134/80 04/22/2017 1:34 PM SOFTWARE QUALITY SPECIALIST Pulse 56 04/22/2017 1:34 PM SOFTWARE QUALITY SPECIALIST Temperature - - Respiratory Rate 16 04/22/2017 1:34 PM SOFTWARE QUALITY SPECIALIST Oxygen Saturation 98% 04/22/2017 1:34 PM SOFTWARE QUALITY SPECIALIST Inhaled Oxygen Concentration - - Weight 81.6 kg (180 lb) 04/22/2017 1:34 PM SOFTWARE QUALITY SPECIALIST Height 165.1 cm (5' 5 ) 04/22/2017 1:34 PM SOFTWARE QUALITY SPECIALIST Body Mass Index 29.95 04/22/2017 1:34 PM SOFTWARE QUALITY SPECIALIST documented in this encounter Progress Notes * Ramon Parker MD - 04/22/2017 1:28 PM CST Pulmonary progress note Division of Internal Medicine-Pulmonary Diseases Office: ; fax [phone] Name: Marua Watkins 04/22/2017 Chief Complaint Follow up visit for DAILY History of Present Illness ?? 66-year-old presents today for a follow-up appointment. She was diagnosed with mild obstructive [...] day. No nocturia. No sleepiness while driving. ?? She works out 5 days a week. She is not currently working. No restless leg syndrome clinically. ?? Bedtime is 9:00 p.m. She reads for about 15 minutes. Sleep onset latency within 30 minutes. Wake time is 7:00 a.m.. She goes to the gym. She also gets naps in the afternoon for about 2 hours. She is getting up to 11 hours of sleep per day but less recently between 8-9 hours. No depression or anxiety. She feels [...] Outpatient Prescriptions Medication Sig Dispense Refill ??? clotrimazole-betamethasone (LOTRISONE) 1-0.05 % cream Apply to affected area 2 times daily 45 g0 ??? triamcinolone acetonide (KENALOG) 0.1 % ointment Apply to affected area 2 times daily 80 g 0 ??? omeprazole (PRILOSEC) 40 MG capsule Take 1 capsule by mouth 2 times daily,before breakfast and supper 90 capsule 1 ??? amLODIPine (NORVASC) 5 MG tablet Take 1 tablet by mouth once daily 90 tablet 1 ??? lisinopril (PRINIVIL; ZESTRIL) 20 MG tablet Take 1 tablet by mouth once daily 90 tablet 1 ??? Cholecalciferol (VITAMIN D-3) 1000 UNITS Take [...] for Muscle Spasms 30 Tab 0 ??? Multiple Vitamins-Minerals (CENTRUM SILVER ULTRA WOMENS) TABS Take 1 Tab by mouth once daily. No current facility-administered medications for this visit. Review of Systems All other systems reviewed and are negative. BP 134/80 (BP SITE: RIGHT ARM, BP POSITION: SITTING, BP CUFF SIZE: Adult) Pulse 56 Resp 16 Wt 81.6 kg (180 lb) SpO2 98% BMI 29.95 kg/m2 FiO2: O2: RA Physical Exam Constitutional: She is oriented to person, place, and time. She appears well- developed and well-nourished. No distress. HENT: Head: Normocephalic and atraumatic. Nose: Nose normal. Mouth/Throat: Oropharynx is clear and moist. No oropharyngeal exudate. Neck: Neck supple. No tracheal deviation present. No thyromegaly present. Cardiovascular: Normal rate, regular rhythm and normal [...] contentnormal. Nursing note and vitals reviewed. Data [place] sleepiness scale: 07/0101/20/2017 ??9:44 AM - Ramon Parker MD Narrative Ramon Parker MD ? 01/20/2017 ??9:44 AM Polysomnogram sleep study. 66 year-old who reports snoring and excessive daytime sleepiness suspicious of sleep apnea was referred for a polysomnogram. The [place] Sleepiness Scale at the night of the [...] for restless leg syndrome. Ramon Parker MD, [facility] Sleep Medicine. Compliance data over the past 30 days show 97 percent of the nights machine usage for more than 4 hours. AHI 2.8 Set pressure is 9 cm of water Impression: ICD-10-CM 1. DAILY (obstructive sleep apnea) G47.33 2. Hypertension, benign essential I10 3. Chronic allergic rhinitis, unspecified seasonality, unspecified trigger J30.9 Plan: 1. DAILY. Mild. I did discuss the sleep study results with her. Her AHI is 5.1. CPAP titration reviewed and she did best with a pressure of 9 cm of water. Her compliance is excellent. No driving while sleepy. ??Weight loss is encouraged. 1 run of SVT for few seconds was seen during the study and she wants to discuss that with Dr. Brooks. She wants to hold off on cardiology referral as she never had a heart disease in the past. She did have periodic limb movements during the sleep study but she does not have restless leg syndrome clinically. I will hold off on treating her periodic limb movementsunless she has excessive daytime sleepiness. ?2. Allergic rhinitis. For which she uses Zyrtec and Mucinex DM. Currently keeping her under control. 3. HTN. Treated with Amlodipine and lisinopril. I discussed with her that treating sleep apnea tends to get the blood pressure under better control. ?? RTC in 12 months. Ramon Parker MD CC: Tamia Brooks MD [phone] Be advised that voice recognition software was used in the production of this record. Errors in interpretation may have been inadvertently missed during review. WARE QUALITY SPECIALIST documented in this encounter Plan of Treatment Upcoming Encounters Date Type Department Care Team (Late st Contact Info) Description 06/29/2024 10:00 AM CDT Office Visit [facility] Medical [facility] - Internal Medicine [address] [place] [id number] Tamia Brooks MD [address] [place] [id number] documented as of this encounter Goals Goal Patient Goal Type Associated Problems Recent Progress Patient-Stated? Author Blood Pressure < 140/90 Blood Pressure 130/70( 024 1:19 PM CDT) Lola Serna MA documented as of this encounter Visit Diagnoses Diagnosis DAILY (obstructive sleep apnea)- Primary Obstructive sleep apnea (adult) (pediatric) Hypertension, benign essential Essential hypertension, benign Chronic allergic rhinitis, unspecified seasonality, unspecified trigger documented in this encounter Care Teams Blacksmith Assistant Relationship Specialty Start Date End Date Tamia Brooks MD [address] [place] [address] PCP - General Internal Medicine 07/26/16 Yohan Barros DPM [address] [facility] [address] [place] [id number] Podiatry 05/24/13 documented as of this encounter
--- OUTSIDE RECORDS SUMMARY | 2024-03-22 20:12 | XMS_ITS | Encounter Summary ---
Author Organization [facility] Address [address] [place] [address] Care Team Providers Care Chainstitch Felled Seam Operator Name Role Phone Yohan Barros DPM Unavailable [phone] Tamia Brooks MD Primary Care Provider [phone] Reason for Visit * Reason Comments Obstructive Sleep Apnea Encounter Details Date Type Department Care Team (Late st Contact Info) Description 03/18/2017 1:00 PM SALES REP Office Visit [facility] Medical [facility] - Pulmonology [address], [address] [place] [address] Ramon Parker MD [address] [place] [address] DAILY (obstructive sleep apnea) (Primary Dx); Chronic allergic rhinitis, unspecified seasonality, unspecified trigger; [...] Reading Time Taken Comments Blood Pressure 130/70 03/18/2017 12:59 PM SALES REP Pulse 95 03/18/2017 12:59 PM SALES REP Temperature - - Respiratory Rate 16 03/18/2017 12:59 PM SALES REP Oxygen Saturation 98% 03/18/2017 12:59 PM SALES REP Inhaled Oxygen Concentration - - Weight 82.1 kg (181 lb) 03/18/2017 12:59 PM SALES REP Height 165.1 cm (5' 5 ) 03/18/2017 12:59 PM SALES REP Body Mass Index 30.12 03/18/2017 12:59 PM SALES REP documented in this encounter Progress Notes * Ramon Parker MD - 03/18/2017 12:57 PM CST Images from the original note were not included. Pulmonary progress note Division of Internal Medicine-Pulmonary Diseases Office: ; fax [phone] Name: Maura Watkins 01/23/2017 Chief Complaint Follow up visit for DAILY History of Present Illness ?? 66-year-old presents today for a follow-up appointment. She was diagnosed with mild obstructive sleep apnea. AHI 5.1. She was referred for CPAP titration and she did best with a pressure of 9 cm of water. Periodic limb movements were seen during the test. SVT was seen. She did receive her machine 2weeks ago and she has been using it and [...] 7:00 a.m.. She goes to the gym. No naps in afternoon for the past 2 weeks except for one time.She is getting about 9 hours of sleep per day recently. No depression or anxiety. ?? She also has postnasal drip. She [...] Outpatient Prescriptions Medication Sig Dispense Refill ??? omeprazole (PRILOSEC) 40 MG capsule Take [...] other systems reviewed and are negative. BP 130/70 Pulse 95 Resp 16 Wt 82.1 kg (181 lb) SpO2 98% BMI 30.12 kg/m2 FiO2: O2: RA Physical Exam Constitutional: She is oriented to person, place, and time. She appears well- developed and well-nourished. No distress. HENT: Head: Normocephalic and atraumatic. Nose: Nose normal. Mouth/Throat: Oropharynx is clear and moist. No oropharyngeal exudate. Class 3 mallampati Neck: Neck supple. No tracheal deviation [...] contentnormal. Nursing note and vitals reviewed. Data [place] sleepiness scale: 07/31 Procedures Date of Service: 02/14/2017 10:19 AM Creation Time: 02/14/2017 10:19 AM Ramon Parker MD Pulmonary Procedure Orders: 1. CPAP/BIPAP TITRATION [[id number]] ordered by Ramon Parker MD at 01/23/17 1353 Pre-procedure Diagnoses: 1. DAILY (obstructive sleep apnea) [G47.33] Post-procedure Diagnoses: 1. DAILY (obstructive sleep apnea) [G47.33] Procedures: 1. REDUCED POLYSOMNOGRAPHY 4 OR MORE PARAMETERS WITHOUT CPAP [SLE5 (Custom)] []Manual[]Template []Copied Polysomnogram sleep study with CPAP/BiPAP titration ?? 66 year-old who was diagnosed with mild obstructive sleep apnea/hypopnea syndrome on 01/20/2017 whopresents for CPAP titration. ?? Recording montage. The patient underwent all night polysomnography which recorded 2 channels of EEG 2 channels of EOG 2 channels of EMG 1 channel airflow 2 lead EKG 1 channel of thoracic and 1 channel of abdominal respiratory motion, snoring sounds and finger pulse oximetry. In addition CPAP titration was done throughout the study. ?? Polysomnographic findings. Sleep continuity and Sleep architecture. Total recording time 446.7 minutes. Total sleep time 307 minutes. Sleep efficiency 68.7 % which wasnormal. Sleep latency was 51.1 minutes which was increased. REM latency was 300.5 minutes which wasincreased. The patient spent 25.1 % of total sleep time in stage 1 sleep, 66.3 % in stage 2 sleep, 1.0 % in stage 3 sleep, 7.7 % in stage REM sleep. Stage N1 sleep was increased and that reflect multiple arousals. Stage N2 sleep was increased. Stage N3 and REM sleep were both decreased. ?? Sleep was fragmented by repetitive arousals due to spontaneous arousals and arousals from periodic limb movements. ?? Respiratory monitoring. The patient was started on a CPAP at a pressure of 4 cm of water that was increased subsequently toa pressure of 6, 7, 8 and 9 cm of water. The patient seems to have done best with a pressure of 9 cm of water during which the sleep efficiency was 77% and that included REM sleep and AHI was 4.5 ?? Periodic limb movements. Periodic limb movements were seen. The PLM index was 43.8. PLM arousal index was 9.5 ?? EKG. EKG demonstrated normal sinus rhythm throughout the study. No ST or T-wave abnormalities were seen.1 run of SVT was seen. ?? EEG. With the montage recorded, no EEG abnormalities were observed. ?? Impression This study was a CPAP titration on a patient with mild obstructive sleep apnea and she seems to have done best with a pressure of 9 cm of water. Periodic limb movements were seen during the study. ?? Recommendations ?? 1. Nasal CPAP at a pressure of 9 cm of water is recommended. During this titration the following equipment was used: A small air fit P-10 mask with heated humidity. 2. Close clinical follow-up is needed to ensure treatment compliance and remission of daytime impairment. 3. The patient should avoid use of alcohol and sedation medication at bedtime and try to maintain ideal body weight. 4. The patient should avoid operating heavy machinery until excessive daytime sleepiness resolves. 5. The patient does have periodic limb movements and should be screened for restless leg syndrome. 6. Patient had a run of SVT for few seconds. That needs to be evaluated. ?? Ramon Parker MD, [facility] Pulmonary and Sleep Medicine. Impression: ICD-10-CM 1. DAILY (obstructive sleep apnea) G47.33 2. Chronic allergic rhinitis, unspecified seasonality, unspecified trigger J30.9 3. Hypertension, benign essential I10 Plan: 1. DAILY. Mild. I did discuss the sleep study results with her. Her AHI is 5.1. I did refer her for CPAP titration and she did best with a pressure of 9 cm of water. I discussed the results of the sleep study with her today. I did order her machine and she received it 2 weeks ago and she has been using it. Discussed with her the importance of using the machine for more than 4 hours per night for more than 70 percent of the night. I will see her again in 1 month to get a compliance data on her. She can also contact the [employer] to get that downloaded prior to her next appointment with me. That download needs to be 30-90 days after starting to use the machine. No driving while sleepy. Weight loss is encouraged. 1 run of [...] movements unless she has excessive daytime sleepiness. ?? 2. Allergic rhinitis. For which she uses Zyrtec and Mucinex DM. Currently keeping her under control. 3. She has hypertension and I discussed with her that treating her sleep apnea tends to get the blood pressure under better control. She is currently on amlodipine and lisinopril. ?? RTC in 4-5 weeks. Ramon Parker MD CC: Tamia Brooks MD [phone] Be advised that voice recognition software was used in the production of this record. Errors in interpretation may have been inadvertently missed during review. S REP documented in this encounter Plan of Treatment Upcoming Encounters Date Type Department Care Team (Late st Contact Info) Description 06/29/2024 10:00 AM CDT Office Visit [facility] - Internal Medicine [address] [place] [id number] Tamia Brooks MD [address] [place] [id number] documented as of this encounter Goals Goal Patient Goal Type Associated Problems Recent Progress Patient-Stated? Author Blood Pressure < 140/90 Blood Pressure 130/70( 024 1:19 PM CDT) Lola Serna MA documented as of this encounter Visit Diagnoses Diagnosis DAILY (obstructive sleep apnea)- Primary Obstructive sleep apnea (adult) (pediatric) Chronic allergic rhinitis, unspecified seasonality, unspecified trigger Hypertension, benign essential Essential hypertension, benign documented in this encounter Care Teams Chainstitch Felled Seam Operator Relationship Specialty Start Date End Date Tamia Brooks MD [address] [place] [id number] PCP - General Internal Medicine 07/26/16 Yohan Barros DPM [facility] [address] [place] [id number] Podiatry 05/24/13 documented as of this encounter
--- OUTSIDE RECORDS SUMMARY | 2024-03-22 20:12 | XMS_ITS | Encounter Summary ---
Author Organization [facility] Address [address] [facility] [place] [address] Care Team Providers Care Senior Financial Name Role Phone Yohan Barros DPM Unavailable [phone] Tamia Brooks MD Primary Care Provider Reason for Visit * Reason Comments Follow-up Weight Management Group Encounter Details Date Type Department Care Team (Late st Contact Info) Description 11/12/2016 2:00 PM CDT Office Visit [facility] - Internal Medicine [address] [place] [phone] Tamia Brooks MD [address] [place] [phone] Hypertensive kidney disease with chronic kidney disease stage III (HCC) (Primary Dx); Non morbid obesity due to excess calories; Prediabetes; Anhydrotic dermatitis of foot ; Atopic dermatitis, unspecified type; CKD (chronic kidney disease) stage 3, GFR 30-59 ml/min (HCC); Hyperlipidemia, unspecified hyperlipidemia type; Situational mixed anxiety and depressive disorder; Other chronic gastritis, presence of bleeding unspecified Social History Tobacco Use Types Packs/Day Years [...] Sign Reading Time Taken Comments Blood Pressure 126/76 11/12/2016 1:53 PM CDT Pulse 88 11/12/2016 1:53 PM CDT Temperature 36.7 ??C (98.1 ??F) 11/12/2016 1:53 PM CD T Respiratory Rate - - Oxygen Saturation 98% 11/12/2016 1:53 PM CDT Inhaled Oxygen Concentration - - Weight 79.8 kg (176 lb) 11/12/2016 1:53 PM CDT Height 165.1 cm (5' 5 ) 11/12/2016 1:53 PM CDT Body Mass Index 29.29 11/12/2016 1:53 PM CDT documented in this encounter Patient Instructions * Patient Instructions* Audelia Dash - 11/12/2016 1:53 PM CDT Please arrive 15 minutes early to your next appointment. Following your visit, you may receive a survey via email or U.S. Mail about your experience with us. We encourage you to respond to this confidential survey about our care. We at [facility] are committed toalways providing you with the most exceptional care. Your feedback helps us provide quality serviceat every visit. Sleep specialist: ??[facility] [address] [place] [address], [address] [place] [phone] Call to make appointment w/ Dr. Parker or Dr. Waldron Caring for Your High Blood Pressure Exercise [...] Where can I go for more information? [place] [employer] National Center: http://www.americanheart.org 1. In the top header, click ???Conditions?? . 2. In the top header, click ???high blood pressure.?? 3. For a printable blood pressure tracker, scroll toward the bottom of the page to Related Tools, and click ???HBP Trackers.?? 8-510-ONF-[place]-1 or ( ) National Heart, Lung and Blood [place]: http://www.nhlbi.nih.gov/health/infoctr/index.htm documented in this encounter Progress Notes * Ese Middleton - 11/13/2016 7:35 AM CDT Cyber Ops Planner correlated appropriate primary diagnosis per provider documentation, reason for visit/encounter and/or for appropriate coding guidelines. * Tamia Brooks MD - 11/12/2016 2:07 PM CDT Tamia Brooks M.D. [facility] - Department of Internal Medicine [address] [place] [address], [address] [place] [address] History of Present Illness Maura Watkins is a 66 y.o. female who presents to the office Chief Complaint Patient presents with ??? Follow-up ??? Weight Management Group Patient is a 66-year-old female with a past medical history significant for allergic rhinitis, insomnia, CKD 3, HLD, HTN, pre diabetes, OA knees, anxiety and depression who presents today for follow up. HTN/HLD/ CKD3 - meds: Lisinopril 20 mg, amlodipine 5 mg, lipitor 40 mg - BP at home: Not checking - compliance is good - Denies CAMPUZANO, CP, SOB, LE edema, myalgia ?? GERD - was uncontrolled last visit and PPI increased to 40 mg BID dosing. - has EGD 10/04/16 + for gastritis. H pylori negative. - has been able to go back to once a day dosing on her PPI ?? Weight gain/ Obesity/Pre-diabetes - tries to do 1-2 hrs of working out per day but doesn't feel like she is getting a good workout - trying to watch her diet - wonders if seeing MNT would be helpful as she also has CKD3. Wt Readings from Last 3 Encounters: 11/12/16 79.8 kg (176 lb) 10/04/16 77.1 kg (170 lb) 09/16/16 83 kg (183 lb) Weight change: +6 lbs since the last visit here. Aerobic exercise: regularly as directed Blood pressure checks: no Glucose monitoring: no Labs reviewed: yes and Did them today. Health Maintenance Topic Date Due ??? DTAP/TDAP/TD VACCINES (1 - Tdap) 1967 ??? ZOSTER VACCINE (1) 2008 ??? ANNUAL MEDICARE WELLNESS VISIT 02/06/2016 ??? INFLUENZA VACCINE (1) 11/08/2016 ??? HCC (Chart Reviewer Use Only) 01/23/2017 ??? MAMMOGRAM 02/10/2017 ??? BONE DENSITY TESTING 09/27/2018 ??? SCREENING FOR DIABETES 09/17/2019 ??? LIPID SCREENING 09/26/2021 ??? COLON CA SCREENING 11/06/2023 ??? PNEUMOCOCCAL VACCINE Completed ??? HEPATITIS C SCREENING Completed Past Medical, Surgical, Social, and Family Histories Patient Active Problem List Diagnosis Date Noted ??? Osteopenia 09/27/2016 Priority: Not Prioritized ??? [...] gastritis, hiatus hernia-Yogi ??? Hysterectomy Social History Social History ??? [...] 2008 ??? Cancer - Breast Maternal Aunt Medication and Allergies Allergies Allergen Reactions ??? Darvon Nausea and/or Vomiting and Dizziness Current Outpatient Prescriptions Medication Sig Dispense Refill ??? Cholecalciferol (VITAMIN [...] at bedtime ) 90 Tab 1 ??? nitrofurantoin monohyd macro crystals (MACROBID) 100 MG capsule Take 1 Cap by mouth 2 times daily with morning and evening meal 14 Cap 0 ??? Dextromethorphan-Guaifenesin (MUCINEX DM MAXIMUM STRENGTH PO) [...] fluticasone propionate (FLONASE) 50 MCG/ACT nasal spray [place] 1 [place] into each nostril once daily ??? Multiple Vitamins-Minerals (CENTRUM SILVER ULTRA WOMENS) TABS Take 1 Tab by mouth once daily. No current facility-administered medications for this visit. Immunization History Administered Date(s) Administered ??? FLU VACCINE TRI INC ANTIG PF 01/06/2015, 12/29/2015 ??? Influenza 11/17/2008, 12/08/2009, 01/06/2011, 01/10/2012, 01/13/2013, 01/13/2013, 11/22/2013 ??? PNEUMOCOCCAL PPSV23 01/08/2010, 09/16/2016 ??? Pneumococcal [...] congestion or allergic sx. Physical Examination Vitals: 11/12/16 1353 BP: 126/76 Pulse: 88 Temp: 98.1 ??F SpO2: 98% Weight: 79.8 kg (176 lb) CrCl cannot be calculated (Patient's most recent sCr result is older than the maximum 15 days allowed.). Body mass index is 29.29 kg/(m^2). General appearance: alert and NAD SKIN: dry cracked skin w erythematous papules on the arches of the feet, xerosis w/ papular rash onRLE EYES: Extraocular muscle movements are intact. Conjunctiva are without significant erythema. HEENT: Auricles are intact without erythema. Hearing is intact to conversational tone. HEART: Regular rate and rhythm. No murmurs, [...] normal all 4 extrem. Assessment and Plan . ICD-10-CM 1. Non morbid obesity due to excess calories E66.09 2. Anhydrotic dermatitis of foot L30.9 clobetasol (TEMOVATE) 0.05 % cream 3. Atopic dermatitis, unspecified type L20.9 clobetasol (TEMOVATE) 0.05 % cream 4. Hypertension, benign essential I10 5. CKD (chronic kidney disease) stage 3, GFR 30-59 ml/min N18.3 AMB REFERRAL TO MED NUTRITION THERAPY 6. Hyperlipidemia, unspecified hyperlipidemia type E78.5 7. Prediabetes R73.03 AMB REFERRAL TO MED NUTRITION THERAPY 8. Situational mixed anxiety and depressive disorder F43.23 9. Chronic allergic rhinitis, unspecified seasonality, unspecified trigger J30.9 Obesity/ pre-diabetes - referral to WVT given - consider referral to weight loss clinic as well - pt advised to contact sleep specialist about repeating sleep study given weight changes Dermatitis - new problem, uncontrolled - start clobetasol cream HTN/CKD3 - controlled - continue current meds HLD - controlled - continue current meds Anxiety/depression - well controlled - continue current meds Gastritis - controlled - reduce PPI to QOD dosing. If tolerated, would like to switch to H2 stephanie instead of PPI. The above was discussed with the patient and understanding was voiced. Patient is in agreement withthe above plan HM: Return to office: Return in about 6 months (around 05/12/2017) for f/u dermatitis, HTN, HLD, CKd3, GERD, weight . documented in this encounter Plan of Treatment Upcoming Encounters Date Type Department Care Team (Late st Contact Info) Description 06/29/2024 10:00 AM CDT Office Visit [facility] - Internal Medicine [address] [place] [phone] Tamia Brooks MD [address] [place] [phone] documented as of this encounter Goals Goal Patient Goal Type Associated Problems Recent Progress Patient-Stated? Author Blood Pressure < 140/90 Blood Pressure 130/70( 024 1:19 PM CDT) Lola Serna MA documented as of this encounter Visit Diagnoses Diagnosis Hypertensive kidney disease with chronic kidney disease stage III ([facility])- Primary Unspecified hypertensive kidney disease with chronic kidney disease stage I through stage IV, or unspecified Non morbid obesity due to excess calories Prediabetes Other abnormal glucose Anhydrotic dermatitis of foot Contact dermatitis and other eczema, due to unspecified cause Atopic dermatitis, unspecified type CKD (chronic kidney disease) stage 3, GFR 30-59 ml/min ([facility]) Chronic kidney disease, Stage III (moderate) Hyperlipidemia, unspecified hyperlipidemia type Situational mixed anxiety and depressive disorder Adjustment disorder with mixed anxiety and depressed mood Other chronic gastritis, presence of bleeding unspecified documented in this encounter Care Teams Senior Financial Relationship Specialty Start Date End Date Tamia Brooks MD [address] [place] [address] PCP - General Internal Medicine 07/26/16 Yohan Barros DPM [address] [place] [address] Podiatry 05/24/13 documented as of this encounter
--- OUTSIDE RECORDS SUMMARY | 2024-03-22 20:12 | XMS_ITS | Encounter Summary ---
Author Organization [facility] Address [address] [facility] [place] [address] Care Team Providers Care Save All Operator Name Role Phone Yohan Barros DPM Unavailable [phone] Tamia Brooks MD Primary Care Provider Reason for Visit * Reason Onset Date Comments Insurance Issue/question 02/20/2018 Medicar e card number Encounter Details Date Type Department Care Team (Late st Contact Info) Description 02/20/2018 Telephone [facility] - Internal Medicine [address] [facility] [address] [place] [address] Tamia Brooks MD [address] [place] [address] [address] [place] [address] Insurance Issue/question (Medicare card number) Social History Tobacco Use Types Packs/Day Years [...] encounter Miscellaneous Notes * Telephone Encounter - Tyler Vicente - 02/20/2018 10:15 AM CST I added the new number to her chart. Tyler FURRING INSTALLER * Telephone Encounter - Laurel Farrell - 02/20/2018 9:40 AM CST Patient forgot to give the front desk auxiliary her Medicare card when she was here on 02/18/2018 for her office visit. She called with the number. Her Medicare number is [id number]. Patient can be reached at [phone]. Will route this encounter to Tyler. FURRING INSTALLER documented in this encounter Plan of Treatment Upcoming Encounters Date Type Department Care Team (Late st Contact Info) Description 06/29/2024 10:00 AM CDT Office Visit [facility] - Internal Medicine [address] [place] [phone] Tamia Brooks MD [address] [place] [phone] documented as of this encounter Goals Goal Patient Goal Type Associated Problems Recent Progress Patient-Stated? Author Blood Pressure < 140/90 Blood Pressure 130/70( 024 1:19 PM CDT) Lola Serna MA documented as of this encounter Visit Diagnoses Not on filedocumented in this encounter Care Teams Save All Operator Relationship Specialty Start Date End Date Tamia Brooks MD [address] [place] [phone] PCP - General Internal Medicine 07/26/16 Yoahn Barros DPM [address] [place] [address] [place] [phone] Podiatry 05/24/13 documented as of this encounter
--- OUTSIDE RECORDS SUMMARY | 2024-03-22 20:12 | XMS_ITS | Encounter Summary ---
Author Organization [facility] Address [address] [facility] [place] [address] Care Team Providers Care Wet Wheeler Name Role Phone Yohan Barros DPM Unavailable [phone] Tamia Brooks MD Primary Care Provider Reason for Visit * Reason Onset Date Comments Hives 05/01/2017 Encounter Details Date Type Department Care Team (Late st Contact Info) Description 05/01/2017 Telephone [facility] - Internal Medicine [address] [facility] [address] [place] [phone] Tamia Brooks MD [address] [place] [address] [place] [phone] Hives Social History Tobacco Use Types Packs/Day Years [...] encounter Miscellaneous Notes * Telephone Encounter - Myriam Plaza RN - 05/02/2017 12:08 PM CST Spoke to pt , she has not made Derm appt, will do so. Informed we still need UC notes. Reviewed triage fax number. CIATE PROFESSOR OF LIBRARY SCIENCE * Telephone Encounter - Tamia Brooks MD - 05/01/2017 12:41 PM CST Will wait to review records. Per pulm notes 04/22 pt did not appear to have edema but that could have changed. Has she made an appt to see dermatology yet? CIATE PROFESSOR OF LIBRARY SCIENCE * Telephone Encounter - Myriam Plaza RN - 05/01/2017 9:59 AM CST Pt given Lotrisone cream for rash, did not work. Given kenalog at [employer] [facility] in a cream, a couple days ago. This is not working. Now on L leg in addition to R leg, itches . Will wake up scratching it. Little scabs. Ankles are swollen.- was told to mention heart to . She will call and have the record of the visit faxed to triage. CIATE PROFESSOR OF LIBRARY SCIENCE documented in this encounter Plan of Treatment Upcoming Encounters Date Type Department Care Team (Late st Contact Info) Description 06/29/2024 10:00 AM CDT Office Visit [facility] Medical [facility] - Internal Medicine [address] [place] [phone] Tamia Brooks MD [address] [place] [phone] documented as of this encounter Goals Goal Patient Goal Type Associated Problems Recent Progress Patient-Stated? Author Blood Pressure < 140/90 Blood Pressure 130/70( 024 1:19 PM CDT) No Lola Neff MA documented as of this encounter Visit Diagnoses Not on filedocumented in this encounter Care Teams Wet Wheeler Relationship Specialty Start Date End Date Tamia Brooks MD [address] [place] [phone] PCP - General Internal Medicine 07/26/16 Yohan Barros DPM [address] [place] [address] [place] [phone] Podiatry 05/24/13 documented as of this encounter
--- OUTSIDE RECORDS SUMMARY | 2024-03-22 20:12 | XMS_ITS | Encounter Summary ---
Author Organization [facility] Address [address] [place] [address] Care Team Providers Care Grain Oilseed Or Pasture Farm Worker Name Role Phone Yohan Barros DPM Unavailable Lemuel Hoang MD Primary Care Provider Unavailab le Reason for Visit * Reason Onset Date Comments MEDICATION REFILL 02/06/2016 Encounter Details Date Type Department Care Team (Late Contact Info) Description 02/06/2016 Refill [facility] - Internal Medicine [address] [facility] [place] [address] Lemuel Hoang MD RETIRED MEDICATION REFILL Social History Tobacco Use Types [...] encounter Miscellaneous Notes * Telephone Encounter - Cassy Mendez - 02/06/2016 10:59 AM CST Last OV: 12/29/2015 Next OV: Visit date not found LE HOME SERVICER documented in this encounter Plan of Treatment Upcoming Encounters Date Type Department Care Team (Late st Contact Info) Description 06/29/2024 10:00 AM CDT Office Visit [facility] - Internal Medicine [address] [facility] [address] [place] [address] Tamia Brooks MD [address] [facility] [address] [place] [phone] documented as of this encounter Goals Goal Patient Goal Type Associated Problems Recent Progress Patient-Stated? Author Blood Pressure < 140/90 Blood Pressure 130/70( 024 1:19 PM CDT) Lola Serna MA documented as of this encounter Visit Diagnoses Not on filedocumented in this encounter Care Teams Grain Oilseed Or Pasture Farm Worker Relationship Specialty Start Date End Date Lemuel Hoang MD [address] [place] [phone] PCP - General Family Medicine 05/06/14 07/25/16 Yohan Barros DPM [address] [place] [phone] Podiatry 05/24/13 documented as of this encounter
--- OUTSIDE RECORDS SUMMARY | 2024-03-22 20:12 | XMS_ITS | Encounter Summary ---
Author Organization [facility] Address [address] [place] [address] Care Team Providers Care Set Up Operator Tool Name Role Phone Yohan Barros DPM Unavailable [phone] Tamia Brooks MD Primary Care Provider Reason for Referral * Radiology Services (Routine) - Closed Specialty Diagnoses / Procedures Referred By Contac t Referred To Contact Bone Densitometry Diagnoses Asymptomatic menopausal state Osteopenia, unspecified location Procedures DEXA BONE DENSITY AXIAL SKELETON DEXA BONE DENSITY 2 SITES Tamia Brooks MD [address] [place] [phone] Referral ID Status Reason Start Date Expiration Date Visits Re quested Visits Authorized [id number] Closed 09/16/2016 03/15/2017 1 1 Reason for Visit * Radiology Services (Routine) - Closed Specialty Diagnoses / Procedures Referred By Contac t Referred To Contact Bone Densitometry Diagnoses Asymptomatic menopausal state Osteopenia, unspecified location Procedures DEXA BONE DENSITY AXIAL SKELETON DEXA BONE DENSITY 2 SITES Tamia Brooks MD [address] [place] [address] Referral ID Status Reason Start Date Expiration Date Visits Re quested Visits Authorized [id number] Closed 09/16/2016 03/15/2017 1 1 Encounter Details Date Type Department Care Team (Latest Contact Info) Description 09/27/2016 8:36 AM CDT - 09/27/2016 11:59 PM CDT Hospital Encounter [facility] Health Imaging Services [address] [facility] [address] [place] [address] Tamia Brooks MD [address] [facility] [address] [place] [phone] Discharge Disposition: Home or Self Care Social [...] Sig Dispensed Refills Start Date End Date Cetirizine HCl (ZYRTEC PO) Take by mouth nightly as needed amLODIPine (NORVASC) 5 MG tablet Take 1 Tab by mouth once daily 90 Tab 3 02/02/2016 02/11/2017 atorvastatin (LIPITOR) 40 MG tablet TAKE 1 TABLET AT BEDTIME 90 Tab 1 08/08/2015 10/11/2016 cyclobenzaprine (FLEXERIL) 10 MG tabletIndications:CKD (chronic kidney disease) stage 3, GFR 30-59 ml/min ([facility]) Take 1 Tab by mouth 3 times daily as needed for Muscle Spasms 30 Tab 09/16/2016 05/13/2017 Dextromethorphan-Guaifen esin (MUCINEX DM MAXIMUM STRENGTH PO) Take by mouth as needed 08/20/2022 fluticasone propionate (FLONASE) 50 MCG/ACT nasal sprayIndications:Allergi c rhinitis, unspecified allergic rhinitis type [place] 1 [place] into each nostril once daily 07/10/2015 03/18/2017 lisinopril (PRINIVIL; ZESTRIL) 20 MG tablet Take 1 Tab by mouth once daily 90 Tab 3 02/02/2016 02/11/2017 Multiple Vitamins-Minerals (CENTRUM SILVER ULTRA WOMENS) TABS Take 1 Tab by mouth once daily. 08/30/2020 nitrofurantoin monohyd macro crystals (MACROBID) 100 MG capsule Take 1 Cap by mouth 2 times daily with morning and evening meal 14 Cap 09/19/2016 11/22/2016 omeprazole (PRILOSEC) 40 MG capsuleIndications:Gastr oesophageal reflux disease without esophagitis Take 1 Cap by mouth 2 times daily,before breakfast and supper 90 Cap 3 09/16/2016 02/24/2017 documented as of this encounter Plan of Treatment Upcoming Encounters Date Type Department Care Team (Late st Contact Info) Description 06/29/2024 10:00 AM CDT Office Visit [facility] - Internal Medicine [address] [facility] [address] [place] [address] Tamia Brooks MD [address] [place] [address] [address] [place] [address] documented as of this encounter Goals Goal Patient Goal Type Associated Problems Recent Progress Patient-Stated? Author Blood Pressure < 140/90 Blood Pressure 130/70( 024 1:19 PM CDT) Lola Serna MA documented as of this encounter Procedures Procedure Name Priority Date/Time Associated Diagnosis Comments DEXA BONE DENSITY AXIAL SKELETON Routine 09/27/2016 8:56 AM CDT Asymptomatic menopausal state Osteopenia, unspecified location documented [...] -2.5 SD Tamia Brooks MD DEXA ORDERABLES documented in this encounter Visit Diagnoses Diagnosis Asymptomatic menopausal state Asymptomatic postmenopausal status (age-related) (natural) Osteopenia, unspecified location documented in this encounter Care Teams Set Up Operator Tool Relationship Specialty Start Date End Date Tamia Brooks MD [address] [place] [phone] PCP - General Internal Medicine 07/26/16 Yohan Barros DPM [address] [facility] [address] [place] [phone] Podiatry 05/24/13 documented as of this encounter
--- OUTSIDE RECORDS SUMMARY | 2024-03-22 20:12 | XMS_ITS | Encounter Summary ---
Author Organization [facility] Address [address] [facility] [place] [address] Care Team Providers Care Checker/Stocker Name Role Phone Yohan Barros DPM Unavailable Tamia Brooks MD Primary Care Provider [phone] Reason for Referral * Sleep (Routine) - Closed Specialty Diagnoses / Procedures Referred By Contismael t Referred To Contact Sleep Center Diagnoses DAILY (obstructive sleep apnea) Procedures CPAP/BIPAP TITRATION Ramon Parker MD [address] [place] [address] [facility] [address] [place] [address] Referral ID Status Reason Start Date Expiration Date Visits Re quested Visits Authorized [id number] Closed 02/12/2017 05/13/2017 1 1 WELL LOGGING ENGINEER Reason for Visit * Reason Comments Snoring Patient here to foll ow up on sleep study results. Ang[place]-4 Encounter Details Date Type Department Care Team (Late Contact Info) Description 01/23/2017 1:45 PM OIL WELL LOGGING ENGINEER Office Visit [facility] - Pulmonology [address], [address] [place] [address] Ramon Parker MD [address] [place] [address] DAILY (obstructive sleep apnea) (Primary Dx); Chronic allergic rhinitis, unspecified seasonality, unspecified trigger [...] Sign Reading Time Taken Comments Blood Pressure 147/91 01/23/2017 1:35 PM OIL WELL LOGGING ENGINEER Pulse 79 01/23/2017 1:35 PM OIL WELL LOGGING ENGINEER Temperature - - Respiratory Rate - - Oxygen Saturation 97% 01/23/2017 1:35 PM OIL WELL LOGGING ENGINEER Inhaled Oxygen Concentration - - Weight 81.6 kg (180 lb) 01/23/2017 1:35 PM OIL WELL LOGGING ENGINEER Height 165.1 cm (5' 5 ) 01/23/2017 1:35 PM OIL WELL LOGGING ENGINEER Body Mass Index 29.95 01/23/2017 1:35 PM OIL WELL LOGGING ENGINEER documented in this encounter Patient Instructions * Patient Instructions* Hernandez Esquivel - 01/23/2017 1:57 PM OIL WELL LOGGING ENGINEER The [facility] sleep lab will contact you regarding scheduling your sleep study in approximately 2-3 weeks. If you do not hear from them, please contact the Sleep Lab for the [place] location - [phone]. Sleep Lab for the [facility] location - [phone]. Our office will contact you regarding your sleep study results approximately 5 days after your testing. If you do not hear from our office after 5 days, please contact our office. WELL LOGGING ENGINEER documented in this encounter Progress Notes * Ramon Parker MD - 01/23/2017 1:30 PM CST Pulmonary progress note Division of Internal Medicine-Pulmonary Diseases Office: ; fax [phone] Name: Maura Watkins 01/23/2017 Chief Complaint Follow up visit for snoring suspicious of DAILY History of Present Illness ?? 66-year-old presents today for a follow-up appointment. She does have snoring. Loud. Worse on her back. Ongoing for years. Also episodes of apneas and waking up gasping. Twice a week nocturia. No morning headache. She does not feel sleepy while driving a car. No accidents or near accidents due to sleepiness while driving. She was diagnosed with sleep apnea about 5 years ago. She did receive a CPAP machine and used it for 4 months and had to stop using it as she could not tolerate it. She lb in the past 5 years. Her snoring got worse since she gained weight. I did refer her recently for another sleep study and she tested positive for mild obstructive sleep apnea. AHI 5.1. She also had periodic limb movement during sleep. ?? She works out 5 days a week. She is not currently working. No restless leg syndrome clinically. ?? Bedtime is 9:00 p.m. She reads for about 15 minutes. Sleep onset latency within 30 minutes. Wake time is 7:00 a.m.. She goes to the gym. She also gets naps in the afternoon for about 2 hours. She is getting about 11 hours of sleep per day recently. She has done that for the past 6 months. No depression or anxiety. She feels happy [...] fluticasone propionate (FLONASE) 50 MCG/ACT nasal spray Linn 1 Linn into each nostril once daily ??? Multiple Vitamins-Minerals (CENTRUM SILVER ULTRA WOMENS) TABS Take 1 Tab by mouth once daily. No current facility-administered medications for this visit. Review of Systems All other systems reviewed and are negative. BP 147/91 Pulse 79 Wt 81.6 kg (180 lb) SpO2 97% BMI 29.95 kg/m2 FiO2: O2: RA Physical [...] contentnormal. Nursing note and vitals reviewed. Data [place] sleepiness scale: 07/0101/20/2017 ??9:44 AM - Ramon Parker MD Narrative Ramon Parker MD ? 01/20/2017 ??9:44 AM Polysomnogram sleep study. 66 year-old who reports snoring and excessive daytime sleepiness suspicious of sleep apnea was referred for a polysomnogram. The [place] Sleepiness Scale at the night of the [...] for restless leg syndrome. Ramon Parker MD, [facility] Pulmonary and Sleep Medicine. Impression: ICD-10-CM 1. DIALY (obstructive sleep apnea) G47.33 CPAP/BIPAP TITRATION 2. Chronic allergic rhinitis, unspecified seasonality, unspecified trigger J30.9 Plan: 1. DAILY. Mild. I did discuss the sleep study results with her. Her AHI is 5.1. I will refer for in laboratory CPAP titration. She prefers a nose mask as she could not tolerate a fullface mask in the past. A nose mask or a nasal pillow mask to be used during the titration. She will call me a week after the study. Will order her machine after that. And then I will see her 2-3 weeks after she uses the machine. No driving while sleepy. Weight loss is encouraged. ?? She also has hypertension I discussed with her that treating her sleep apnea tends to get the bloodpressure under better control. ?? 2. Allergic rhinitis. For which she uses Zyrtec and Mucinex DM. Currently keeping her under control. ?? RTC in 2 months. Ramon Parker MD CC: Tamia Brooks MD [phone] Be advised that voice recognition software was used in the production of this record. Errors in interpretation may have been inadvertently missed during review. WELL LOGGING ENGINEER documented in this encounter Plan of Treatment Upcoming Encounters Date Type Department Care Team (Late st Contact Info) Description 06/29/2024 10:00 AM CDT Office Visit [facility] - Internal Medicine [address] [place] [address] [place] [phone] Tamia Brooks MD [address] [place] [phone] documented as of this encounter Goals Goal Patient Goal Type Associated Problems Recent Progress Patient-Stated? Author Blood Pressure < 140/90 Blood Pressure 130/70( 024 1:19 PM CDT) No Lola Neff MA documented as of this encounter Results * CPAP/BIPAP TITRATION (02/14/2017 10:29 AM OIL WELL LOGGING ENGINEER) Narrative Ramon Parker MD - 02/14/2017 10:29 AM OIL WELL LOGGING ENGINEER Ramon Parker MD ? 02/14/2017 10:29 AM [...] needs to be evaluated. Ramon Parker MD, FCCP Pulmonary and Sleep Medicine. Be advised that voice recognition software was used in the production of this record. ??Errors in interpretation may have been inadvertently missed during review. Ramon Parker MD SLEEP CENTER ORDERAB LES documented in this encounter Visit Diagnoses Diagnosis DAILY (obstructive sleep apnea)- Primary Obstructive sleep apnea (adult) (pediatric) Chronic allergic rhinitis, unspecified seasonality, unspecified trigger DAILY (obstructive sleep apnea) Obstructive sleep apnea (adult) (pediatric) documented in this encounter Care Teams Checker/Stocker Relationship Specialty Start Date End Date Tamia Brooks MD [address] [facility] [address] [place] [address] PCP - General Internal Medicine 07/26/16 Yohan Barros DPM [address] [facility] [address] [place] [address] Podiatry 05/24/13 documented as of this encounter
--- OUTSIDE RECORDS SUMMARY | 2024-03-22 20:12 | XMS_ITS | Encounter Summary ---
Author Organization [facility] Address [address] [place] [address] Care Team Providers Care Keg Inspector Name Role Phone Yohan Barros DPM Unavailable [phone] Tamia Brooks MD Primary Care Provider Reason for Visit * Reason Onset Date Comments Results 11/11/2018 Encounter Details Date Type Department Care Team (Late st Contact Info) Description 11/11/2018 Telephone [facility] - Internal Medicine [address] [facility] [address] [place] [phone] Tamia Brooks MD [address] [place] [address] [place] [phone] Results Social History Tobacco Use Types [...] Telephone Encounter - Michelle Long LPN - 11/11/2018 2:29 PM CDT Labs from 10/19/18 faxed. Confirmation received. * Telephone Encounter - Janelle Banks - 11/11/2018 2:13 PM CDT Who is calling? self If other than self is caller listed on the HIPAA? no If caller is anyone other than listed above, where are they calling from? Na What is the reason for call? Dr. Deepika Landers is requesting the patient's most recent lab work, please fax to [phone]. Please fax as soon as possible. Expected Response from the Clinic? ( ex. Call back, etc..) phone [phone] documented in this encounter Plan of Treatment Upcoming Encounters Date Type Department Care Team (Late st Contact Info) Description 06/29/2024 10:00 AM CDT Office Visit [facility] - Internal Medicine [address] [facility] [address] [place] [address] Tamia Brooks MD [address] [phone] documented as of this encounter Goals Goal Patient Goal Type Associated Problems Recent Progress Patient-Stated? Author Blood Pressure < 140/90 Blood Pressure 130/70( 024 1:19 PM CDT) No Lola Neff MA documented as of this encounter Visit Diagnoses Not on filedocumented in this encounter Care Teams Keg Inspector Relationship Specialty [place] [address] [place] [phone] PCP - General Internal Medicine 07/26/16 Yohan Barros DPM [address] [place] [phone] Podiatry 05/24/13 documented as of this encounter
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
--- OUTSIDE RECORDS SUMMARY | 2024-03-22 20:12 | XMS_ITS | Encounter Summary ---
Author Organization [facility] Address [address] [facility] [place] [address] Care Team Providers Care Switchboard And Control Room Operator Name Role Phone Yohan Barros DPM Unavailable [phone] Tamia Brooks MD Primary Care Provider Reason for Visit * Reason Onset Date Comments Results 10/23/2018 Encounter Details Date Type Department Care Team (Late st Contact Info) Description 10/23/2018 Telephone [facility] - Internal Medicine [address] [facility] [address] [place] [phone] Tamia Brooks MD [address] [place] [phone] Results Social History Tobacco Use Types [...] Telephone Encounter - Tamia Brooks MD - 10/23/2018 10:56 AM CDT Ordered * Telephone Encounter - Michelle Long LPN - 10/23/2018 10:46 AM CDT Patient advised. Could you send in a 7 day supply of rosuvastatin to [facility]? They are leaving town Friday. I'm having difficulty navigating the new way to pend meds! Pharmacy populated. * Telephone Encounter - Tamia Brooks MD - 10/23/2018 10:20 AM CDT .Please call patient to review the information below. Thyroid level good Kidney function is stable. Cholesterol is not at goal. Stop atorvastatin and start rosuvastatin instead. A1c now shows she had diabetes at 6.5%. This is very well controlled so I would like to give her 3 months to try to decrease her a1c without medication. If it doesn't go down however, she will need to start diabetes meds. Of course if she prefers to start meds now, we can. Referral to DM education given as well. Be sure to cut back on sugary beverages like soda, fruit juice, sweet tea, and lemonade. Avoid complex carbs like breads, rice, pastas. If you do have them, whole wheat and whole grain products or brown rice will be better for you. Avoid starchy veggies like potatoes and corn. Try to incorporate more fresh fruits and vegetables as well as water into your diet. Excersing also helps to lower your a1c and you should aim for 30 mintues of cardio activity 3-5 days a week. documented in this encounter Plan of Treatment Upcoming Encounters Date Type Department Care Team (Late st Contact Info) Description 06/29/2024 10:00 AM CDT Office Visit [facility] - Internal Medicine [address] [place] [phone] Tamia Brooks MD [address] [place] [phone] documented as of this encounter Goals Goal Patient Goal Type Associated Problems Recent Progress Patient-Stated? Author Blood Pressure < 140/90 Blood Pressure 130/70( 024 1:19 PM CDT) Lola Serna MA documented as of this encounter Visit Diagnoses Diagnosis Mixed hyperlipidemia- Primary Newly diagnosed diabetes (HCC) Type II or unspecified type diabetes mellitus without mention of complication, not stated as uncontrolled documented in this encounter Care Teams Switchboard And Control Room Operator Relationship Specialty Start Date End Date Tamia Brooks MD [address] [facility] [address] [place] [address] PCP - General Internal Medicine 07/26/16 Yohan Barros DPM [address] [facility] [address] [place] [phone] Podiatry 05/24/13 documented as of this encounter
--- OUTSIDE RECORDS SUMMARY | 2024-03-22 20:12 | XMS_ITS | Encounter Summary ---
Author Organization [facility] Address [address] [facility] [place] [address] Care Team Providers Care Human Resources Associate Name Role Phone Yohan Barros DPM Unavailable [phone] Lemuel Hoang MD Primary Care Provider Unavailab le Encounter Details Date Type Department Care Team (Late Contact Info) Description 02/08/2016 Orders Only [facility] - Internal Medicine [address] [facility] [place] [address] Lemuel Hoang MD RETIRED Chronic right-sided low back pain without sciatica Social History Tobacco Use Types Packs/Day Years [...] Description 06/29/2024 10:00 AM CDT Office Visit [facility] - Internal Medicine [address] [phone] Tamia Brooks MD [address] [place] [phone] documented as of this encounter Goals Goal Patient Goal Type Associated Problems Recent Progress Patient-Stated? Author Blood Pressure < 140/90 Blood Pressure 130/70( 024 1:19 PM CDT) No Lola Neff MA documented as of this encounter Procedures Procedure Name Priority Date/Time Associated Diagnosis Comments XR LUMBAR SPINE 2 OR 3VW Routine 01/03/2016 Chronic right-sided low back pain without sciatica documented in this encounter Results * XR LUMBAR SPINE 2 OR 3 VW (01/03/2016) Anatomical Region Laterality Modality Spine Other Lemuel Hoang MD DIAGNOSTIC IMAGING O RDERABLES documented in this encounter Visit Diagnoses Diagnosis Chronic right-sided low back pain without sciatica documented in this encounter Care Teams Human Resources Associate Relationship Specialty Start Date End Date Lemuel Hoang MD [address] [place] [address] PCP - General Family Medicine 05/06/14 07/25/16 Yohan Barros DPM [address] [place] [address] Podiatry 05/24/13 documented as of this encounter
--- OUTSIDE RECORDS SUMMARY | 2024-03-22 20:12 | XMS_ITS | Encounter Summary ---
Author Organization [facility] Address [address] [facility] [place] [address] Care Team Providers Care Director External Communications Name Role Phone Yohan Barros DPM Unavailable [phone] Tamia Brooks MD Primary Care Provider [phone] Reason for Visit * Reason Onset Date Comments MEDICATION REFILL 12/16/2017 Encounter Details Date Type Department Care Team (Late st Contact Info) Description 12/16/2017 Refill [facility] - Internal Medicine [address] [facility] [address] [place] [phone] Tamia Brooks MD [address] [place] [phone] MEDICATION REFILL Social History Tobacco Use [...] encounter Miscellaneous Notes * Telephone Encounter - Bianca Gant LPN - 12/17/2017 8:53 AM CDT Requested Prescriptions Pending Prescriptions Disp Refills ??? furosemide (LASIX) 20 MG tablet 60 tablet 5 Sig: Take 1 tablet by mouth 2 times daily ??? atorvastatin (LIPITOR) 40 MG tablet 90 tablet 1 Sig: Take 1 tablet by mouth at bedtime ??? omeprazole (PRILOSEC) 40 MG capsule 90 capsule 1 ??? lisinopril (PRINIVIL; ZESTRIL) 20 MG tablet 90 tablet 1 Sig: Take 1 tablet by mouth once daily Last OV: 08/28/2017 Next OV: 02/18/2018 Allergies have been reviewed. Pharmacy populated Please sign RX and close encounter. * Telephone Encounter - Kath Jc - 12/16/2017 8:53 AM CDT Maura Ariza June is in need of Her Requested Prescriptions Pending Prescriptions Disp Refills ??? furosemide (LASIX) 20 MG tablet 60 tablet 5 Sig: Take 1 tablet by mouth 2 times daily ??? atorvastatin (LIPITOR) 40 MG tablet 90 tablet 1 Sig: Take 1 tablet by mouth at bedtime ??? omeprazole (PRILOSEC) 40 MG capsule 90 capsule 1 ??? lisinopril (PRINIVIL; ZESTRIL) 20 MG tablet 90 tablet 1 Sig: Take 1 tablet by mouth once daily Person calling for the refill: Self Last office visit 08/28/17 Next Appointment scheduled: 02/18/2018 Last Refill for this medication 06/03/17,09/12/17, 09/11/17 Does patient have any new allergies since last office visit? No Was the pharmacy verified? Yes documented in this encounter Plan of Treatment Upcoming Encounters Date Type Department Care Team (Late st Contact Info) Description 06/29/2024 10:00 AM CDT Office Visit [facility] Medical [facility] - Internal Medicine [address] [phone] Tamia Brooks MD [address] [place] [phone] documented as of this encounter Goals Goal Patient Goal Type Associated Problems Recent Progress Patient-Stated? Author Blood Pressure < 140/90 Blood Pressure 130/70( 024 1:19 PM CDT) Lola Serna MA documented as of this encounter Visit Diagnoses Diagnosis Leg swelling Swelling of limb Venous stasis dermatitis of both lower extremities CKD (chronic kidney disease) stage 3, GFR 30-59 ml/min (HCC) Chronic kidney disease, Stage III (moderate) documented in this encounter Care Teams Director External Communications Relationship Specialty Start Date End Date Tamia Brooks MD [address] [facility] [address] [place] [address] PCP - General Internal Medicine 07/26/16 Yohan Barros, ZOYA [address] [facility] [address] [place] [address] Podiatry 05/24/13 documented as of this encounter
--- OUTSIDE RECORDS SUMMARY | 2024-03-22 20:12 | XMS_ITS | Encounter Summary ---
Author Organization [facility] Address [address] [place] [address] Care Team Providers Care Furnace Operator And Tender Name Role Phone Yohan Barros DPM Unavailable [phone] Tamia Brooks MD Primary Care Provider Reason for Visit * Reason Comments Welcome To Medicare Visit Hypertension Memory Loss Abrasion Encounter Details Date Type Department Care Team (Late st Contact Info) Description 02/18/2018 1:20 PM BLOW TORCH OPERATOR Office Visit [facility] - Internal Medicine [address] [place] [address] Tamia Brooks MD [address] [place] [id number] Medicare annual wellness visit, initial (Primary Dx); Neuropathic pruritus; BMI 32.0-32.9,adult; Prediabetes; DAILY (obstructive sleep apnea); Hypertension, benign essential; Hyperlipidemia, unspecified hyperlipidemia type; CKD (chronic kidney disease) stage 3, GFR 30-59 ml/min (HCC); Hypercalcemia; Memory loss; Chronic diastolic congestive heart failure (HCC); Allergic rhinitis, unspecified seasonality, unspecified trigger; Anhydrotic dermatitis of foot 04/27/12 Social History Tobacco Use Types Packs/Day Years [...] Sign Reading Time Taken Comments Blood Pressure 138/90 02/18/2018 1:57 PM BLOW TORCH OPERATOR Pulse 86 02/18/2018 1:09 PM BLOW TORCH OPERATOR Temperature 36.1 ??C (97 ??F) 02/18/2018 1:09 PM BLOW TORCH OPERATOR Respiratory Rate - - Oxygen Saturation 97% 02/18/2018 1:09 PM BLOW TORCH OPERATOR Inhaled Oxygen Concentration - - Weight 87.5 kg (193 lb) 02/18/2018 1:09 PM BLOW TORCH OPERATOR Height 165.1 cm (5' 5 ) 02/18/2018 1:09 PM BLOW TORCH OPERATOR Body Mass Index 32.12 02/18/2018 1:09 PM BLOW TORCH OPERATOR documented in this encounter Patient Instructions * Patient Instructions* Audelia Dash - 02/18/2018 1:09 PM BLOW TORCH OPERATOR Please arrive 15 minutes early to your next appointment. Following your visit, you may receive a survey via email or U.S. Mail about your experience with us. We encourage you to respond to this confidential survey about our care. We at [facility] are committed toalways providing you with the most exceptional care. Your feedback helps us provide quality serviceat every visit. Labs: You have labs pending. You do need to be fasting for this. Please go to your nearest [facility] to get this done at your convenience. There is one in our building ([address] [place] [address]), [address]. Stop scratching! Start topiramate and increase as directed. You can stop at the lowest dose that controls your symptoms. Your memory is not at an alarming stage. We will check labs to see if there is a treatable cause such as thyroid disease, elevated calcium, or vitamin D level. Be sure to read current event daily. Caring for Your High Blood Pressure Healthy [...] Where can I go for more information? [place] [employer] National Center: http://www.americanheart.org 1. In the top header, click ???Conditions?? . 2. In the top header, click ???high blood pressure.?? 3. For a printable blood pressure tracker, scroll toward the bottom of the page to Related Tools, and click ???HBP Trackers.?? 0-129-CBA-USA-1 or ( ) National Heart, Lung and Blood [place]: http://www.nhlbi.nih.gov/health/infoctr/index.htm TORCH OPERATOR documented in this encounter Progress Notes * Tamia Brooks MD - 02/18/2018 1:18 PM CST Tamia Brooks MD [facility] - Department of Internal Medicine [facility], [address] [place] [address] History of Present Illness Maura Watkins is a 67 y.o. female who presents to the office Chief Complaint Patient presents with ??? Welcome To Medicare Visit ??? Hypertension ??? Memory Loss ??? Abrasion Patient is a 66-year-old female with a past medical history significant for allergic rhinitis, insomnia, CKD 3, HLD, HTN, pre diabetes, OA knees, anxiety and depression who presents today for follow up. ?? Neuropathic dermatitis - pt c/o increased itching on her legs. R>L. - was initially thought to be eczema but failed to respond to all topicals steroids. Tried on anti fungal without relief. Patient seen by Dermatology and was diagnosed with neuropathic dermatitis/pruritus. - she has not tried any nerve medications for this. - has prescription for betamethasone topical which is not helping. She declines refill today. ?? DDD lumbar - still present - states this is tolerable overall - still complaining of numbness and tingling that radiates from her left hip and down to her foot. ?? HTN/HLD/ CKD3 -??meds: ??Lisinopril 20 mg po qday, lipitor 40 mg, lasix 20 mg BID - BP at home: ??120-130s/70-80 - has cut back on caffeine - compliance is good - Denies CAMPUZANO, CP, SOB, myalgia BP Readings from Last 3 Encounters: 02/18/18 138/90 08/28/17 126/74 05/13/17 122/72 GERD - controlled currently on PPI ?? Weight gain/ Obesity/Pre-diabetes?? - Still ddoing water aerobics. - reports eating a mediterranean diet. Occasionally snacking on candy. Memory loss - x several months - patient reports that she will often have difficulty recalling people's names if she does not see them frequently as well as remembering where she knows people from. She denies getting lost driving on the way home. She denies forgetting the name of close family members or friends. She denies leaving the stove on, leaving her doors on lot, or misplacing items frequently. - she denies family medical history of dementia - patient reports that she reads daily Allergic rhinitis - controlled - denies facial pain or pressure, ear pain or pressure, PND, f/c, n/g DAILY - using CPAP nightly Wt Readings from Last 3 Encounters: 02/18/18 87.5 kg (193 lb) 08/28/17 85.4 kg (188 lb 3.2 oz) 05/13/17 84.8 kg (187 lb) Weight change: +5 lbs since the last visit here. Aerobic exercise: irregularly Blood pressure checks: no Glucose monitoring: No Labs reviewed: Did them today. Recent Labs Component Name 09/26/17 0935 05/22/17 0835 09/26/16 0802 SODIUM 147* 143 143 POTASSIUM 5.1 4.6 4.9 CHLORIDE 105 102 101 CO2 23 22 23 BUN 18 17 23 CREATININE 1.27* 1.35* 1.24* GLUCOSE 123* 125* 113* CALCIUM 10.4* 10.1 9.6 Recent Labs Component Name 09/26/16 0802 TSH 2.080 Recent Labs Component Name 04/17/17 0911 09/26/16 0802 WBC 5.7 4.9 HGB 12.7 12.4 HCT 39.9 36.8 PLTCOUNT 302 312 Recent Labs Component Name 09/16/16 HGBA1C 5.9 Recent Labs Component Name 09/26/16 0802 CHOL 181 TRIG 130 HDL 47 LDLCALC 108* No results for input(s): MICROALBUGML in the last 94393 hours. No results for input(s): MICROALBCREA in the last 22813 hours. No results for input(s): INR in the last 77157 hours. Past Medical, Surgical, Social, and Family [...] Outpatient Prescriptions Medication Sig Dispense Refill ??? topiramate (TOPAMAX) 25 MG tablet Week 1: 25 mg at bedtime. Week 2: 25 mg twice a day. Week 3: 25 mg AM, 50 mg PM. Week 4: 50 mg twice a day. 120 tablet 5 ??? furosemide (LASIX) 20 MG tablet Take 1 tablet by mouth 2 times daily 180 tablet 3 ??? atorvastatin (LIPITOR) 40 MG tablet Take 1 tablet by mouth at bedtime 90 tablet 1 ??? omeprazole (PRILOSEC) 40 MG capsule TAKE 1 CAPSULE TWICE A DAY BEFORE BREAKFAST AND SUPPER 180 capsule 1 ??? lisinopril (PRINIVIL; ZESTRIL) 20 MG tablet Take 1 tablet by mouth once daily 90 tablet 3 ??? glucosamine-chondroitin (GLUCOSAMINE CHONDR COMPLEX) 500-400 MG capsule Take 1 capsule by mouthonce daily 30 capsule 5 ??? Cholecalciferol (VITAMIN D-3) 1000 UNITS Take by mouth 2 times daily ??? calcium 600 MG tablet Take 2 Tabs by mouth daily with food ??? Dextromethorphan-Guaifenesin (MUCINEX DM MAXIMUM STRENGTH PO) Take by mouth as needed ??? Cetirizine HCl (ZYRTEC PO) Take by mouth nightly as needed ??? Multiple Vitamins-Minerals (CENTRUM SILVER ULTRA WOMENS) [...] difficulty. Musculoskeletal:no joint pain or swelling. Skin: rash/itching Neurological: No weakness or headaches. Behavioral/Psych: No depression or change in mood. Endocrine: No heat or cold intolerance Hematologic/lymphatic: No abnormal bleeding noted. Allergy: No congestion or allergic sx. Physical Examination Vitals: 02/18/18 1309 02/18/18 1357 BP: 150/96 138/90 Pulse: 86 Temp: 97 ??F (36.1 ??C) SpO2: 97% Weight: 87.5 kg (193 lb) Height: 1.651 m (5' 5 ) CrCl cannot be calculated (Patient's most recent sCr result is older than the maximum 15 days allowed.). Body mass index is 32.12 kg/(m^2). General appearance: alert and NAD SKIN: Hypertrophic lichenified area on RLE w/ excoriation present. EYES: Extraocular muscle movements are intact. Pupils [...] all 4 extrem. Assessment and Plan .1. Medicare annual wellness visit, initial 2. Neuropathic pruritus - uncontrolled - d/c betamethasone as no improvement - start topiramate for nerve pain relief and for weight loss - topiramate (TOPAMAX) 25 MG tablet; Week 1: 25 mg at bedtime. Week 2: 25 mg twice a day. Week 3: 25 mg AM, 50 mg PM. Week 4: 50 mg twice a day. Dispense: 120 tablet; Refill: 5 3. BMI 32.0-32.9,adult 4. Prediabetes - advised pt to restart weight watchers as she had some improvement w/ that. - continue daily exercise - start topirmate as noted above - HEMOGLOBIN A1C 5. DAILY (obstructive sleep apnea) - controlled - CPAP nightly 6. Hypertension, benign essential - mildly above goal today. Reports good BP control at home. - continue current medications - LIPID PROFILE - COMPREHENSIVE METABOLIC PANEL - TSH HI LOW REFLEX FREE T4 - CBC WITH DIFFERENTIAL 7. Hyperlipidemia, unspecified hyperlipidemia type - controlled .- continue current medications - LIPID PROFILE 8. CKD (chronic kidney disease) stage 3, GFR 30-59 ml/min 9. Hypercalcemia - stable - mild hypercalcemia last check. Will get updated levels - VITAMIN D 25-HYDROXY - PTH INTACT - PHOSPHORUS BLOOD - MAGNESIUM BLOOD - URIC ACID BLOOD 10. Memory loss - discussed with patient that her memory concerns do not sound pathological and are typical for herage. - will check for organic causes memory. Repeat BMP rule out hypercalcemia as etiology memory issues. - advised patient to continue reading daily especially current events. Patient to use her calendar to help remember events. - RPR - VITAMIN B12 11. Chronic diastolic congestive heart failure - controlled - continue current medications - LIPID PROFILE - COMPREHENSIVE METABOLIC PANEL - TSH HI LOW REFLEX FREE T4 - CBC WITH DIFFERENTIAL 13. Anhydrotic dermatitis of foot 04/27/12 - controlled - continue current medications The above was discussed with the patient and understanding was voiced. Patient is in agreement withthe above plan HM: - AWV completed today Health Maintenance Topic Date Due ??? DTAP/TDAP/TD VACCINES (1 - Tdap) 1967 ??? ANNUAL MEDICARE WELLNESS VISIT 02/06/2016 ??? HCC (Chart Reviewer Use Only) 08/12/2018 ??? BONE DENSITY TESTING 09/27/2018 ??? MAMMOGRAM 02/11/2019 ??? SCREENING FOR DIABETES 09/26/2020 ??? LIPID SCREENING 09/26/2021 ??? COLON CA SCREENING 11/06/2023 ??? PNEUMOCOCCAL VACCINE Completed ??? INFLUENZA VACCINE Completed ??? HEPATITIS C SCREENING Completed ??? HIB VACCINE Aged Out ??? MENINGOCOCCAL VACCINE Aged Out Return to office: Return in about 4 months (around 06/19/2018) for f/u chronic medical problems . . Tamia Brooks M.D [facility] - Division of Internal Medicine [address], [address] [place] [address] MEDICARE ANNUAL WELLNESS VISIT (12 months after [...] BMI 32.0-32.9,adult Chronic diastolic congestive heart failure Past Medical History: Diagnosis Date ??? Anhydrotic [...] 2007 ??? Cancer - Breast Maternal Aunt Allergies Allergen Reactions ??? Darvon Nausea and/or Vomiting and Dizziness Current Outpatient Prescriptions on File Prior to Visit Medication Sig Dispense Refill ??? furosemide (LASIX) 20 MG tablet Take 1 tablet by mouth 2 times daily 180 tablet 3 ??? atorvastatin (LIPITOR) 40 MG tablet Take 1 tablet by mouth at bedtime 90 tablet 1 ??? omeprazole (PRILOSEC) 40 MG capsule TAKE 1 CAPSULE TWICE A DAY BEFORE BREAKFAST AND SUPPER 180 capsule 1 ??? lisinopril (PRINIVIL; ZESTRIL) 20 MG tablet Take 1 tablet by mouth once daily 90 tablet 3 ??? glucosamine-chondroitin (GLUCOSAMINE CHONDR COMPLEX) 500-400 MG capsule Take 1 capsule by mouthonce daily 30 capsule 5 ??? Cholecalciferol (VITAMIN D-3) 1000 UNITS Take by mouth 2 times daily ??? calcium 600 MG tablet Take 2 Tabs by mouth daily with food ??? Dextromethorphan-Guaifenesin (MUCINEX DM MAXIMUM STRENGTH PO) Take by mouth as needed ??? Cetirizine HCl (ZYRTEC PO) Take by mouth nightly as needed ??? Multiple Vitamins-Minerals (CENTRUM SILVER ULTRA WOMENS) [...] ILLNESS Chief Complaint Patient presents with ??? Welcome To Medicare Visit ??? Hypertension ??? Memory Loss ??? Abrasion She is having some itching still. Dx as neuropathic by dermatology. Wt Readings from Last 3 Encounters: 02/18/18 87.5 kg (193 lb) 08/28/17 85.4 kg (188 lb 3.2 oz) 05/13/17 84.8 kg (187 lb) Weight change: +5 lbs since the last visit here. Aerobic exercise: regularly as directed Was a minimum of 40 minutes 5 days per week of aerobic exercise advocated: Yes CURRENT DIET limits fats and cholestrol intake, limits salt intake DEPRESSION SCREENING (Annals Int Med., 151(11): Feb 15; pp [phone]) Depression: PHQ-2:TOTAL POINT SCORE: 0 PHQ-9: Depression risk factors identified: None FUNCTIONAL ASSESSMENT HEARING IMPAIRMENT HEARING IMPAIRMENT Do [...] have trouble hearing in a noisy background? Yes Do you find yourself asking people to [...] Do you get lost in your neighborhood? Yes FALL RISK No falls in last 12 months Do you have grab bars in your shower? No HOME SAFETY (ask patient when alone) Living arrangements - the patient lives with their family. Do you have working smoke detectors? Yes [...] directive:Yes Do you have a power of litigation attorney associate:Yes Was form for POA/Advance directive given: No [...] Medicine) Tamia Brooks MD as PCP - Attributed-[facility] Yohan Barros DPM (Podiatry) PHYSICAL EXAM Vitals: 02/18/18 1309 02/18/18 1357 BP: 150/96 138/90 Pulse: 86 Temp: 97 ??F (36.1 ??C) SpO2: 97% Weight: 87.5 kg (193 lb) Height: 1.651 m (5' 5 ) Body mass index is 32.12 kg/(m^2). CrCl cannot be calculated (Patient's most recent sCr result is older than the maximum 15 days allowed.). GEN: Alert. In no acute distress. PSYCH: Pleasant. Answers questions appropriately. COGNITIVE: WNL Get Up and Go Test: 8 seconds Skin: Hypertrophic lichenified area on RLE w/ excoriation present. Eyes: PERRLA EEMT: TM's normal, Hearing intact, [...] intact MS: motor normal all 4 extrem Visual Acuity Screening Right eye Left eye Both eyes Without correction: With correction: 20/20 20/100 20/20 SCREENING SCHEDULE Health Maintenance Topic Date Due ??? DTAP/TDAP/TD VACCINES (1 - Tdap) 1967 ??? ANNUAL MEDICARE WELLNESS VISIT 02/06/2016 ??? HCC (Chart Reviewer Use Only) 08/12/2018 ??? BONE DENSITY TESTING 09/27/2018 ??? MAMMOGRAM 02/11/2019 ??? SCREENING FOR DIABETES 09/26/2020 ??? LIPID SCREENING 09/26/2021 ??? COLON CA SCREENING 11/06/2023 ??? PNEUMOCOCCAL VACCINE Completed ??? INFLUENZA VACCINE Completed ??? HEPATITIS C SCREENING Completed ??? HIB VACCINE Aged Out ??? MENINGOCOCCAL VACCINE Aged Out EDUCATION, COUNSELING, AND REFERRAL BASED ON THE PREVIOUS SCREENING Above screenings were performed and referrals were made as appropriately needed. Orders Placed This Encounter ??? LIPID PROFILE ??? COMPREHENSIVE METABOLIC PANEL ??? TSH HI LOW REFLEX FREE T4 ??? CBC WITH DIFFERENTIAL ??? HEMOGLOBIN A1C ??? VITAMIN D 25-HYDROXY ??? PTH INTACT ??? PHOSPHORUS BLOOD ??? MAGNESIUM BLOOD ??? URIC ACID BLOOD ??? RPR ??? VITAMIN B12 ??? topiramate (TOPAMAX) 25 MG tablet Sig: Week 1: 25 mg at bedtime. Week 2: 25 mg twice a day. Week 3: 25 mg AM, 50 mg PM. Week 4: 50 mgtwice a day. Dispense: 120 tablet Refill: 5 TORCH OPERATOR documented in this encounter Plan of Treatment Upcoming Encounters Date Type Department Care Team (Late st Contact Info) Description 06/29/2024 10:00 AM CDT Office Visit [facility] - Internal Medicine [address] [place] [address] Tamia Brooks MD [address] [place] [address] [address] [place] [address] Scheduled Orders Name Type Priority Associated Diagnoses Orde r Schedule PHOSPHORUS BLOOD Lab Routine CKD (chronic kidney disease) stage 3, GFR 30-59 ml/min (HCC) Ordered: 02/18/2018 MAGNESIUM BLOOD Lab Routine CKD (chronic kidney disease) stage 3, GFR 30-59 ml/min (HCC) Ordered: 02/18/2018 URIC ACID BLOOD Lab Routine CKD (chronic kidney disease) stage 3, GFR 30-59 ml/min (HCC) Ordered: 02/18/2018 RPR Lab Routine Memory loss Ordered: 02/18/2018 VITAMIN B12 Lab Routine Memory loss Ordered: 02/18/2018 documented as of this encounter Goals Goal Patient Goal Type Associated Problems Recent Progress Patient-Stated? Author Blood Pressure < 140/90 Blood Pressure 130/70( 024 1:19 PM CDT) Lola Serna MA documented as of this encounter Procedures Procedure Name Priority Date/Time Associated Diagnosis Comments TSH HI LOW REFLEX FREE T4 Routine 10/19/2018 11:20 AM CDT Chronic diastolic congestive heart failure (HCC) Hypertension, benign essential PTH INTACT Routine 10/19/2018 11:20 AM CDT CKD (chronic kidney disease) stage 3, GFR 30-59 ml/min (HCC) HEMOGLOBIN A1C Routine 10/19/2018 11:20 AM CDT Prediabetes VITAMIN D 25-HYDROXY Routine 10/19/2018 11:20 AM CDT CKD (chronic kidney disease) stage 3, GFR 30-59 ml/min (HCC) CBC W AUTO DIFFERENTIAL Routine 10/19/2018 11:20 AM CDT Chronic diastolic congestive heart failure (HCC) Hypertension, benign essential COMPREHENSIVE METABOLIC PANEL Routine 10/19/2018 11:20 AM CDT Chronic diastolic congestive heart failure (HCC) Hypertension, benign essential LIPID PROFILE Routine 10/19/2018 11:20 AM CDT Chronic diastolic congestive heart failure (HCC) Hypertension, benign essential documented in this encounter Results * PTH INTACT (10/19/2018 11:20 AM CDT) PTH Intact 26 15 - 65 pg/mL [facility] INSURANCE BILL Blood BLOOD SPECIMEN / Unknown 10/19/2018 11:20 AM CDT 10/19/2018 Narrative [facility] INSURANCE BILL - 10/20/2018 5:07 PM CDT A courtesy copy of this report has been sent to Derek Baltazar MD. Resulting Agency Comment [facility] [address] [place] [address] ??Replaced by [facility] [id number] Tamia Brooks MD LAB - CHEMISTRY PREETI COSTA [facility] INSURANCE BILL [address] [place] [address] * VITAMIN D 25-HYDROXY (10/19/2018 11:20 AM CDT) Vitamin D, 25 Hydroxy 40.8 30.0 - 100.0 ng/mL [facility] INSURANCE BILL Comment: Vitamin D deficiency has been defined by the [place] of Medicine and an Endocrine Society practice guideline as a level of serum 25-OH vitamin D less than 20 ng/mL (1,2). The Endocrine Society went on to further define vitamin D insufficiency as a level between 21 and 29 ng/mL (2). 1. IOM ([place] of Medicine). 2010. Dietary reference ?? intakes for calcium and D. [place]: The ?? National Academies Press. 2. Jose MF, Melia NC, Marcelo CAMPUZANO, et al. ?? Evaluation, treatment, and prevention of vitamin D ?? deficiency: an Endocrine Society clinical practice ?? guideline. JCEM. 2011 Sep; 96(7):1911-30. Blood BLOOD SPECIMEN / Unknown 10/19/2018 11:20 AM CDT 10/19/2018 Narrative Resulting Agency Comment Lab Testing performed at: [facility] [address] ??Replaced by [facility] [id number] Tamia Brooks MD LAB - CHEMISTRY PREETI COSTA Performing Organization Address City/[facility]/ZIP Co de Phone Number [facility] INSURANCE BILL [address] [place] [address] * (ABNORMAL) HEMOGLOBIN A1C (10/19/2018 11:20 AM CDT) Hemoglobin A1c 6.5(H) 4.8 - 5.6 % [facility] INSURANCE BILL Comment: ? . ? Prediabetes: 5.7 - 6.4 ? Diabetes: >6.4 ? Glycemic control for adults with diabetes: <7.0 Blood BLOOD SPECIMEN / Unknown 10/19/2018 11:20 AM CDT 10/19/2018 Narrative Resulting Agency Comment Lab Testing performed at: [facility] [address] ??Replaced by [facility] [id number] Tamia Brooks MD LAB - CHEMISTRY PREETI COSTA [facility] INSURANCE BILL [address] [place] [address] * CBC WITH DIFFERENTIAL (10/19/2018 11:20 AM CDT) WBC 6.8 3.4 - 10.8 x10E3/uL [facility] INSURANCE BILL RBC 4.42 3.77 - 5.28 x10E6/uL [facility] INSURANCE BILL Hemoglobin 12.5 11.1 - 15.9 g/dL [facility] INSURANCE BILL Hematocrit 37.8 34.0 - 46.6 % [facility] INSURANCE BILL MCV 86 79 - 97 fL [facility] INSURANCE BILL MCH 28.3 26.6 - 33.0 pg [facility] INSURANCE BILL MCHC 33.1 31.5 - 35.7 g/dL [facility] INSURANCE BILL RDW 13.8 12.3 - 15.4 % [facility] INSURANCE BILL Platelet Count 281 150 - 450 x10E3/uL [facility] INSURANCE BILL Granulocytes % 58 Not Estab. % [facility] INSURANCE BILL Lymphocytes % 27 Not Estab. % [facility] INSURANCE BILL Monocytes [...] Comment Hematology NOT NEEDED [facility] INSURANCE BILL Comment:Ancillary determined the test is not needed. Blood BLOOD SPECIMEN / Unknown 10/19/2018 11:20 AM CDT 10/19/2018 Narrative Resulting Agency Comment [facility]: [facility] [address] ??Replaced by [facility] [id number] Tamia Brooks MD LAB - HEMATOLOGY ORD ERABLES [facility] [place] [address] [place] [address] * TSH HI LOW REFLEX FREE T4 (10/19/2018 11:20 AM CDT) TSH 2.210 0.450 - 4.500 uIU/mL [facility] INSURANCE BILL Blood BLOOD SPECIMEN / Unknown 10/19/2018 11:20 AM CDT 10/19/2018 Narrative Resulting Agency Comment Lab Testing performed at: [facility] [place] [address] ??Replaced by [facility] [id number] Tamia Brooks MD LAB - CHEMISTRY PREETI COSTA [facility] INSURANCE BILL [address] [place] [address] * (ABNORMAL) COMPREHENSIVE METABOLIC PANEL (10/19/2018 11:20 AM CDT) Glucose 96 65 - 99 mg/dL [facility] INSURANCE BILL BUN 18 8 - 27 mg/dL [facility] INSURANCE BILL Creatinine 1.18(H) 0.57 - 1.00 mg/dL [facility] INSURANCE BILL eGFR by MDRD 47(L) >59 mL/min/1.7 3 [facility] INSURANCE BILL eGFR by MDRD 54(L) >59 mL/min/1.7 3 [facility] INSURANCE BILL BUN/Creatinine Ratio 15 12 - 28 [facility] INSURANCE BILL Sodium 143 134 - 144 mmol/L [facility] INSURANCE BILL Potassium 4.9 3.5 - 5.2 mmol/L [facility] INSURANCE BILL Chloride 107(H) 96 - 106 mmol/L [facility] INSURANCE BILL CO2 19(L) 20 - 29 mmol/L [facility] INSURANCE BILL Calcium 9.7 8.7 - 10.3 mg/dL [facility] INSURANCE BILL Protein Total 6.9 6.0 - 8.5 g/dL [facility] INSURANCE BILL Albumin 4.4 3.5 - 4.8 g/dL [facility] INSURANCE BILL Globulin Total 2.5 1.5 - 4.5 g/dL [facility] INSURANCE BILL Albumin/Globulin Ratio 1.8 1.2 - 2.2 [facility] INSURANCE BILL Bilirubin Total <0.2 0.0 - 1.2 mg/dL [facility] INSURANCE BILL Alkaline Phosphatase 111 39 - 117 IU/L [facility] INSURANCE BILL AST 19 0 - 40 IU/L [facility] INSURANCE BILL ALT 16 0 - 32 IU/L [facility] INSURANCE BILL Blood BLOOD SPECIMEN / Unknown 10/19/2018 11:20 AM CDT 10/19/2018 Narrative Resulting Agency Comment Lab Testing performed at: [facility] ??Replaced by [facility] [phone] Tamia Brooks MD LAB - CHEMISTRY PREETI COSTA Performing Organization Address [facility] de Phone Number [facility] INSURANCE BILL [address] [place] [address] * (ABNORMAL) LIPID PROFILE (10/19/2018 11:20 AM CDT) Cholesterol 198 100 - 199 mg/dL [facility] INSURANCE BILL Triglycerides 211(H) 0 - 149 mg/dL [facility] INSURANCE BILL HDL Cholesterol 43 >39 mg/dL [facility] INSURANCE BILL VLDL Calculated 42(H) 5 - 40 mg/dL [facility] INSURANCE BILL LDL Calculated 113(H) 0 - 99 mg/dL [facility] INSURANCE BILL Comment NOT NEEDED [facility] INSURANCE BILL Comment:Ancillary determined the test is not needed. Blood BLOOD SPECIMEN / Unknown 10/19/2018 11:20 AM CDT 10/19/2018 Narrative Resulting Agency Comment Lab Testing performed at: [facility] [address] ??Replaced by [facility] [phone] Tamia Brooks MD LAB - CHEMISTRY PREETI COSTA Performing Organization Address [facility] de Phone Number [facility] INSURANCE BILL 9547 [place] [address] documented in this encounter Visit Diagnoses Diagnosis Medicare annual wellness visit, initial- Primary Routine general medical examination at a health care facility Neuropathic pruritus Other specified pruritic conditions BMI 32.0-32.9,adult Body Mass Index 32.0-32.9, adult Prediabetes Other abnormal glucose DAILY (obstructive sleep apnea) Obstructive sleep apnea (adult) (pediatric) Hypertension, benign essential Essential hypertension, benign Hyperlipidemia, unspecified hyperlipidemia type CKD (chronic kidney disease) stage 3, GFR 30-59 ml/min (HCC) Chronic kidney disease, Stage III (moderate) Hypercalcemia Memory loss Chronic diastolic congestive heart failure (HCC) Chronic diastolic heart failure Allergic rhinitis, unspecified seasonality, unspecified trigger Anhydrotic dermatitis of foot 04/27/12 Contact dermatitis and other eczema, due to unspecified cause documented in this encounter Care Teams Furnace Operator And Tender Relationship Specialty Start Date End Date Tamia Brooks MD [address] [facility] [address] [place] [address] PCP - General Internal Medicine 07/26/16 Yohan Barros DPM [address] [facility] [address] [place] [phone] Podiatry 05/24/13 documented as of this encounter
--- OUTSIDE RECORDS SUMMARY | 2024-03-22 20:12 | XMS_ITS | Encounter Summary ---
Author Organization [facility] Address [address] [facility] [place] [address] Care Team Providers Care Iron Worker Apprentice Name Role Phone Papo Yohan Coughlin DPM Unavailable [phone] Tamia Brooks MD Primary Care Provider [phone] Reason for Visit * Auth/Cert Specialty Diagnoses / Procedures Referred By Valeria ramesh Referred To Contact Diagnoses Gastroesophageal reflux disease, esophagitis presence not specified Gastroesophageal reflux disease, esophagitis presence not specified Procedures ESOPHAGOGASTRODUODENOSCOPY (EGD) Referral ID Status Reason Start Date Expiration Date Visits Re quested Visits Authorized [id number] 1 1 Encounter Details Date Type Department Care Team (Latest Contact Info) Description 10/04/2016 11:30 AM CDT - 10/04/2016 12:00 PM CDT Surgery [facility] - Endoscopy Services [address] [place] [address] James Calix MD [address] [place] [id number] ESOPHAGOGASTRODUODENOSCOPY (EGD) Surgery Details Date/Time Status Location OR Service Patient Class Case Class Case Type Trauma Case? 10/04/2016 11:30 AM Posted [facility] Endo 02 Gastroenterology Surgery Day Care Elective > 5 days Panel 1 Procedure LRB Anes Op Region Wound Class Comments ESOPHAGOGASTRODUODENOSCOPY (EGD) N/A MAC Clean Contaminated ENDOSCOPY GI UPPER WITH BIOPSY Clean Contaminated Surgeon Surgeon Role Service Panel James Calix MD Primary Gastroenterology 1 documented in this encounter Social History Tobacco Use Types Packs/Day [...] Reading Time Taken Comments Blood Pressure 138/90 10/04/2016 11:57 AM CDT Pulse 78 10/04/2016 11:57 AM CDT Temperature 36.7 ??C (98 ??F) 10/04/2016 11:57 AM CDT Respiratory Rate 16 10/04/2016 11:57 AM CDT Oxygen Saturation 97% 10/04/2016 11:57 AM CDT Inhaled Oxygen Concentration - - Weight 77.1 kg (170 lb) 10/04/2016 11:57 AM CDT Height 166.4 cm (5' 5.5 ) 10/04/2016 11:57 AM CD T Body Mass Index 27.86 10/04/2016 11:57 AM CDT documented in this encounter Medications at [...] stage 3, GFR 30-59 ml/min ([facility]) Take 1 Tab by mouth 3 times daily as needed for Muscle Spasms 30 Tab 09/16/2016 05/13/2017 Dextromethorphan-Guaifen esin (MUCINEX DM MAXIMUM STRENGTH PO) Take by mouth as needed 08/20/2022 fluticasone propionate (FLONASE) 50 MCG/ACT nasal sprayIndications:Allergi c rhinitis, unspecified allergic rhinitis type [place] 1 [place] into each nostril once daily 07/10/2015 03/18/2017 [...] Progress Notes * James Calix MD - 10/04/2016 1:29 PM CDT Neg h pylori documented in this encounter H&P Notes * James Calix MD - 10/04/2016 12:16 PM CDT ENDOSCOPY PRE-PROCEDURE MEDICAL HISTORY & PHYSICAL NOTE 10/04/2016 Maura Watkins 66 y.o. female BP 138/90 Pulse 78 Temp 98 ??F Resp 16 Ht 5' 5.5 Wt 170 lb SpO2 97% BMI 27.86 kg/m2 History: Past Medical History: Diagnosis Date ??? [...] ??? ENDOSCOPY, COLON, SCREENING 06/23/06 ??? Hysterectomy Allergies Allergen Reactions ??? Darvon Nausea and/or Vomiting and Dizziness Prescriptions Prior to Admission Medication Sig Dispense Refill ??? nitrofurantoin monohyd macro crystals (MACROBID) 100 MG capsule Take 1 Cap by mouth 2 times daily with morning and evening meal 14 Cap 0 ??? Cetirizine HCl (ZYRTEC PO) Take by [...] AT BEDTIME 20mg) 90 Tab 1 ??? Multiple Vitamins-Minerals (CENTRUM SILVER ULTRA WOMENS) TABS Take 1 Tab by mouth once daily. ??? Dextromethorphan-Guaifenesin (MUCINEX DM MAXIMUM STRENGTH PO) Take by mouth daily with breakfast ??? fluticasone propionate (FLONASE) 50 MCG/ACT nasal spray Athens 1 [place] into each nostril once daily Current Facility-Administered Medications Medication Dose Route Frequency Provider Last Rate Last Dose ??? 0.9% NaCl infusion Intravenous Continuous James Calix MD Physcial Exam: General appearance: alert, cooperative, no distress Heart: regular rhythm, normal S1 and S2, without murmurs, rubs or gallops Lungs: breath sounds normal and symmetric; no rales or wheezes Abdomen: soft without mass, non-tender, with normal bowel sounds Extremities: no clubbing, cyanosis or edema Sedation Plan: Anesthesia administered per Anesthesia Department Indication(s) for Procedure: Colon Screen - average risk Procedure Planned: ColonoscopyINFORMED CONSENT FOR ENDOSCOPIC PROCEDURES Endoscopic procedures are very safe but there are definite risks which are outlined below. Anesthesia Risks 1. Risk of respiratory depression and hypoxia (not getting enough oxygen in blood). This can usually be easily treated and reversed but may require intubation (breathing tube) and mechanical ventilation. 2. Risk of allergic reaction to anesthesia medication 3. Risk of aspiration causing cough, infection or other pulmonary problems Bleeding risks Bleeding may be immediate or delayed. It is usually associated with biopsy or polyp removal. Significant bleeding at time of procedure will be treated by various methods to stop the bleeding. Bleeding may require longer hospitalization, blood transfusion, repeat endoscopic procedures or possible tavon hannah to stop the bleeding. IV Risks A new IV may need to be placed to give sedation. With placement of IV there is risk of multiple attempts to place catheter and pain associated. Risks of infection of IV site and blood clots possible leading to severe vascular complications. Missed lesions Endoscopic procedures (colonoscopy, upper endoscopy) are believed to be the best procedures to findabnormalities in the intestines including polyps and cancer. These procedures ARE NOT 100% successful and abnormalities may be missed. This is highly dependent on how well the bowel is cleaned out and patients individual anatomy. Risk of Perforation All endoscopic procedures have risk of perforation (causing a hole in the intestines). This is a VERY RARE but serious complication. It usually requires immediate surgery. There are multiple conditions that increase the chance of of perforation including but not limited to patients age, previous abdominal surgery , gender, weight, chronic medical problems and diverticular disease of colon. Other risks There have been some reports of diverticulitis and splenic rupture (extremely rare) after colonoscopy. May have sore throat following upper endoscopy May have damage to teeth or dental appliances with upper endoscopy Patient understands above risks prior to procedure and has or will sign hospital consent prior to procedure. PROCEDURES MAY BE UNSUCCESSFUL DUE TO ANATOMY, CLINICAL CONDITION OR PREP AND MAY BE STOPPED BEFORECOMPLETION. RECOMMENDATIONS MAY INCLUDE REPEAT PROCEDURE, X-RAY PROCEDURE OR OTHER STUDIES. COMPLICATIONS MAY LEAD TO PROLONGED HOSPITALIZATION, CHRONIC MEDICAL PROBLEMS AND . James Calix MD documented in this encounter Procedure Notes * James Calix MD - 10/04/2016 12:26 PM CDT egd Gastritis Hiatal Hernia Esophagitis ppi Bid Anti reflux precautions documented in this encounter Miscellaneous Notes * Anesthesia Transfer of Care - Ankit Montano APRN-BUSINESS MANAGEMENT ASSOCIATE - 10/04/2016 12:28 PM CDT ANESTHESIA TRANSFER OF CARE NOTE Today's Date: 10/04/2016 Date of : 1950 Patient: Maura Watkins Pre-op Diagnosis: Gastroesophageal reflux disease, esophagitis presence not specified [K21.9] Allergies: Allergies Allergen Reactions ??? Darvon Nausea and/or Vomiting and Dizziness Procedure(s): ESOPHAGOGASTRODUODENOSCOPY (EGD) ENDOSCOPY GI UPPER WITH BIOPSY Postop Diagnosis: same as pre-operative diagnosis Postop Pain: Adequate Analgesia Post Assessment: no apparent anesthetic complications, no evidence of recall and patient tolerated procedure well Level of Consciousness: responds to stimulation and lethargic Transport Airway: supplemental O2 and spontaneous respirations Complications: None Handoff Given? Yes Checklist or Protocol - The العلي handoff elements that must be included in the transfer of care checklist include: 1. Identification of patient. 2. Identification of responsible practitioner (PACU nurse or advanced practitioner). 3. Discussion of pertinent medical history. 4. Discussion of the surgical/procedure course (procedure, reason for surgery, procedure performed). 5. Intraoperative anesthetic management and issue/concerns. 6. Expectations/Plans for the early post-procedure period. 7. Opportunity for questions and acknowledgement of understanding of report from the receiving PACUteam. Anesthesiologist: MACARIO Fox documented in this encounter Plan of Treatment Upcoming Encounters Date Type Department Care Team (Late st Contact Info) Description 06/29/2024 10:00 AM CDT Office Visit [facility] - Internal Medicine [address] [place] [address] [place] [phone] Tamia Brooks MD [address] [place] [address] [place] [phone] documented as of this encounter Goals Goal Patient Goal Type Associated Problems Recent Progress Patient-Stated? Author Blood Pressure < 140/90 Blood Pressure 130/70( 024 1:19 PM CDT) No Lola Neff MA documented as of this encounter Procedures Procedure Name Priority Date/Time Associated Diagnosis Comments HELICOBACTER PYLORI UREASE (STL) STAT 10/04/2016 12:23 PM CDT Gastroesophageal reflux disease, esophagitis presence not specified ESOPHAGOGASTRODUODENOSCOPY (EGD) BIOPSY 10/04/2016 12:18 PM CDT Gastroesophageal reflux disease, esophagitis presence not specified ESOPHAGOGASTRODUODENOSCOPY (EGD) DIAGNOSTIC 10/04/2016 12:18 PM CDT Gastroesophageal reflux disease, esophagitis presence not specified EGD Routine 10/04/2016 11:57 AM CDT documented in this encounter Results * HELICOBACTER PYLORI UREASE (STL) (10/04/2016 12:23 PM CDT) Helicobacter pylori Urease Initial Negative Negative 10/05/2016 5:11 PM CDT [facility] Helicobacter pylori Urease Final Negative Negative 10/05/2016 5:11 PM CDT [facility] Microbiology GASTRIC ANTRAL BIOPSY SPECIMEN / Unknown Collection / Unknown 10/04/2016 12:23 PM CDT 10/04/2016 3:06 PM CDT James Calix MD LAB - MICROBIOLOGY O RDERABLES Performing Organization Address City/State/[facility] Co de Phone Number [facility] [address] [place] [address] * EGD (10/04/2016 11:57 AM [...] Procedure Code(s): ? --- Professional --- ? 15321, Esophagogastroduo denoscopy, flexible, transoral; with biopsy, ? single or multiple ? --- Technical --- ? 84955, Esophagogastroduo denoscopy, flexible, transoral; with biopsy, ? single or multiple Diagnosis Code(s): ? --- Professional --- ? K44.9, Diaphragmatic hernia without obstruction or gangrene ? K29.70, Gastritis, unspecified, without bleeding ? --- Technical --- ? K44.9, Diaphragmatic hernia without obstruction or gangrene ? K29.70, Gastritis, unspecified, without bleeding CPT copyright 2015 [employer]. All rights reserved. The codes documented in this report are preliminary and upon arch cushion skiving machine operator review may be revised to meet current compliance requirements. James Calix MD 10/04/2016 12:32:07 PM This report has been signed electronically. Number of Addenda: 0 Note Initiated On: 10/04/2016 11:57 AM [facility] 10/04/2016 11:5 7 AM CDT James Calix MD GI PROCEDURE ORDERAB LES [facility] documented in this encounter Visit Diagnoses Diagnosis Gastroesophageal reflux disease, esophagitis presence not specified Gastroesophageal reflux disease, esophagitis presence not specified documented in this encounter Administered Medications Inactive Administered Medications - up to 3 most recent administrations Medication Order MAR Action Action Date Dose Rate Site 0.9% NaCl infusion at 20 mL/hr, Intravenous, CONTINUOUS, Starting on Fri10/04/16 at 1215, Until Fri10/04/16 at 1430, Pre-procedure (GI) $ New Bag/Syringe 10/04/2016 12:17 PM CDT 20 mL/hr documented in this encounter Active and Recently Administered Medications Times are shown in CDT. Continuous Medication Order 10/02/2016 10/03/2016 10/04/2016 0.9% NaCl infusion at 20 mL/hr, Intravenous, CONTINUOUS, Starting on Fri10/04/16 at 1215, Until Fri10/04/16 at 1430, Pre-procedure (GI) 1217 ($ New Bag/Syri nge - Provider: Charisma Varghese RN)1226 (Anesthesia Volume Adjustment - Provider: Ankit Montano APRN-BUSINESS MANAGEMENT ASSOCIATE) documented in this encounter Care Teams Iron Worker Apprentice Relationship Specialty Start Date End Date Tamia Brooks MD [address] [facility] [address] [place] [phone] PCP - General Internal Medicine 07/26/16 Yohan Barros DPM [address] [phone] Podiatry 05/24/13 documented as of this encounter
--- OUTSIDE RECORDS SUMMARY | 2024-03-22 20:12 | XMS_ITS | Encounter Summary ---
Author Organization [facility] Address [address] [facility] [place] [address] Care Team Providers Care Behavioral Therapist Name Role Phone Yohan Barros DPM Unavailable [phone] Tamia Brooks MD Primary Care Provider [phone] Encounter Details Date Type Department Care Team (Late Contact Info) Description 04/29/2018 Orders Only [facility] Internal Medicine [address] [place] [phone] Tamia Brooks MD [address] [place] [phone] Abnormal mammogram Social History Tobacco Use Types Packs/Day Years [...] [facility] Internal Medicine [address] [place] [address] [address] [place] [address] Tamia Brooks MD [address] [place] [address] [address] [place] [phone] documented as of this encounter Goals Goal Patient Goal Type Associated Problems Recent Progress Patient-Stated? Author Blood Pressure < 140/90 Blood Pressure 130/70( 024 1:19 PM CDT) No Lola Neff MA documented as of this encounter Procedures Procedure Name Priority Date/Time Associated Diagnosis Comments MAMMO LEFT DIAGNOSTIC Routine 04/29/2018 Abnormal mammogram documented in this encounter Results * MAMMO LEFT DIAGNOSTIC (04/29/2018) Anatomical Region Laterality Modality Breast Left Mammography Tamia Brooks MD MAMMO ORDERABLES documented in this encounter Visit Diagnoses Diagnosis Abnormal mammogram Abnormal mammogram, unspecified documented in this encounter Care Teams Behavioral Therapist Relationship Specialty Start Date End Date Tamia Brooks MD [address] [place] [phone] PCP - General Internal Medicine 07/26/16 Yohan Barros DPM [address] [place] [address] [place] [phone] Podiatry 05/24/13 documented as of this encounter
--- OUTSIDE RECORDS SUMMARY | 2024-03-22 20:12 | XMS_ITS | Encounter Summary ---
Author Organization [facility] Address [address] [place] [address] Care Team Providers Care Dock Pumper Name Role Phone Yohan Barros DPM Unavailable [phone] Tamia Brooks MD Primary Care Provider Reason for Referral * Cardiac (Routine) - Closed Specialty Diagnoses / Procedures Referred By Contismael t Referred To Contact Diagnoses Leg swelling Procedures ECHOCARDIOGRAM 2D WITH DOPPLER Tamia Brooks MD [address] [place] [address] [address] [place] [address] [facility] [address], [address] [place] [address] Referral ID Status Reason Start Date Expiration Date Visits Re quested Visits Authorized [id number] Closed 05/13/2017 11/09/2017 1 1 SKILLS COORDINATOR Reason for Visit * Reason Comments Hypertension Hyperlipidemia Pain Back Pain Groin muscle sore Encounter Details Date Type Department Care Team (Late st Contact Info) Description 05/13/2017 2:00 PM LIFE SKILLS COORDINATOR Office Visit [facility] Medical [facility] - Internal Medicine [address] [place] [address] Tamia Brooks MD [address] [place] [address] [address] [place] [address] Leg swelling (Primary Dx); Venous stasis dermatitis of both lower extremities; DDD (degenerative disc disease), lumbar; Groin strain, left, initial encounter; Primary osteoarthritis of left hip; Primary osteoarthritis of right hip; Primary osteoarthritis of both knees; CKD (chronic kidney disease) stage 3, GFR 30-59 ml/min (HCC); Essential (primary) hypertension ; Hyperlipidemia, unspecified hyperlipidemia type; Prediabetes; Class 1 obesity due to excess calories with serious comorbidity and body mass index (BMI) of 31.0 to 31.9 in adult; BMI 31.0-31.9,adult; DAILY (obstructive sleep apnea); Chronic allergic rhinitis, unspecified seasonality, unspecified trigger; Anhydrotic dermatitis of foot 04/27/12; Situational mixed anxiety and depressive disorder; Chronic insomnia; Osteopenia, unspecified location Social History Tobacco Use Types Packs/Day Years [...] Sign Reading Time Taken Comments Blood Pressure 122/72 05/13/2017 1:52 PM LIFE SKILLS COORDINATOR Pulse 100 05/13/2017 1:52 PM LIFE SKILLS COORDINATOR Temperature 36.8 ??C (98.2 ??F) 05/13/2017 1:52 PM CS T Respiratory Rate - - Oxygen Saturation 96% 05/13/2017 1:52 PM LIFE SKILLS COORDINATOR Inhaled Oxygen Concentration - - Weight 84.8 kg (187 lb) 05/13/2017 1:52 PM LIFE SKILLS COORDINATOR Height 165.1 cm (5' 5 ) 05/13/2017 1:52 PM LIFE SKILLS COORDINATOR Body Mass Index 31.12 05/13/2017 1:52 PM LIFE SKILLS COORDINATOR documented in this encounter Patient Instructions * Patient Instructions* Audelia Dash - 05/13/2017 1:51 PM LIFE SKILLS COORDINATOR Please arrive 15 minutes early to your next appointment. Following your visit, you may receive a survey via email or U.S. Mail about your experience with us. We encourage you to respond to this confidential survey about our care. We at [facility] are committed toalways providing you with the most exceptional care. Your feedback helps us provide quality serviceat every visit. Labs: You have labs pending. You do not need to be fasting for this. Get these done 1 week after starting Leg swelling and rash - I suspect your rash at this point is due to leg swelling - start lasix 20 mg once a day for the next week. After that you may stop taking if your swelling has improved. You can take it as needed after that. If you need it most days, feel free to take it daily. - you will need to get blood drawn 1 week after starting lasix - get compression stockings to help w/ swelling L hip/back pain - you likely have osteoarthritis of your hip and you have a L groin muscle strain. Your back pain is likely due to your known arthritis of the lower spine - continue tylenol up to 1 g three times a day - epsom salt soaks once a week - keep taking vitamin D. Glucosamine-chondroitin and tumeric capusules once a day may help w/ pain as well. Try for 2 months and if no improvement you can stop. - call me if the tylenol not working for pain. Caring for Your High Blood Pressure Medications ??? Keep a written list of what medicines you are taking and when you take them. Bring the list of your medicines or the pill bottles when you see your provider. Learn why you take each medicine. Askyour provider or pharmacist for information about your medicines. ??? Do not take ebip-ana-ykieida medicine or herbal supplements without talking to your provider. Some of these medicines may raise your blood pressure. ??? You may need to have your medicine or the dose changed many times before it is right for you. It may take weeks for your body to adjust to your blood pressure medicine. Be patient and do not stoptaking your medicine, even if you have side effects or are feeling fine. Let your provider know about any side affects you have concerns about. Where can I go for more information? [employer] National Center: http://www.americanheart.org 1. In the top header, click ???Conditions?? . 2. In the top header, click ???high blood pressure.?? 3. For a printable blood pressure tracker, scroll toward the bottom of the page to Related Tools, and click ???HBP Trackers.?? 9-039-TSJ-USA-1 or ( ) National Heart, Lung [facility]: http://www.nhlbi.nih.gov/health/infoctr/index.htm SKILLS COORDINATOR documented in this encounter Progress Notes * Tamia Brooks MD - 05/13/2017 2:05 PM CST Tamia Brooks M.D. [facility] - Department of Internal Medicine [address], [address] [place] [address] History of Present Illness Maura [place] is a 67 y.o. female who presents to the office Chief Complaint Patient presents with ??? Hypertension ??? Hyperlipidemia ??? Pain Back ??? Pain Groin muscle sore Patient is a 66-year-old female with a past medical history significant for allergic rhinitis, insomnia, CKD 3, HLD, HTN, pre diabetes, OA knees, anxiety and depression who presents today for follow up. B/l LE rash - this is ongoing and has failed to two rounds of antibiotics as well as topical steroids and antifungals. She is also having swelling of her bilateral lower extremities. She reports that her rash has progressed to spilling of her bilateral feet. She tried antifungal for this without relief. She reports that the itching in her bilateral lower extremities is improved with exposure to cold water. - patient reports she was evaluated for this at Urgent Care on 04/27/2017 and was told she likely has stasis dermatitis. At that time, patient was given prescription for doxycycline for unrelated pneumonia treatment but failed to see improvement in rash. CAP - patient reports she acquired this from her who was diagnosed approximately 2 weeks earlier with community-acquired pneumonia. She was seen at Urgent Care for complaints of cough and was given prescription for doxycycline times 10 days. She reports her cough symptoms have since resolved. Continues to have ongiong rash on the b/l LE. States she is now having peeling of her feet. Better under cold water Was seen at 04/27/17 for c/o cough and lower extremity rash. Dx w/ PNA and given doxycycline x 10 days. Rash did not improve w/ doxy as well. Patient brings in her dischargepaperwork from that day but I do not have access to the office notes her chest x-ray results Low Back pain - chronic, but has been getting worse X 1-2 months. Does have h/o DDD lumbar as noted on MRI L spine 01/2016. Back pain is described as a Twisting and pulling sensation which is worse w/ trying to get up. She denies alleviating factors. She denies numbness/tingling or weakness of b/l LE. She has chronic urinary incontinence which is unchanged. She denies fevers, chills, saddle anesthesia - patient also reports that the pain is radiating toward her left hip and seems to wrap around to her left groin. This is more of a aching in pulling sensation. The pain in her groin area has been affecting her gait and causing her to walk with a limp. - MRI L spine w/o mention of spinal stenosis HTN/HLD/ CKD3 - meds: Lisinopril 20 mg, amlodipine 5 mg, lipitor 40 mg - BP at home: Not checking - compliance is good - Denies CAMPUZANO, CP, SOB, myalgia BP Readings from Last 3 Encounters: 05/13/17 122/72 04/22/17 134/80 03/18/17 130/70 - + LE edema and ab distension ?? GERD - controlled currently on PPI ?? Weight gain/ Obesity/Pre-diabetes - trying to work out more. Has been doing water aerobics as well as trying to walk the tract more. Wt Readings from Last 3 Encounters: 05/13/17 84.8 kg (187 lb) 04/22/17 81.6 kg (180 lb) 03/18/17 82.1 kg (181 lb) Weight change: +7 lbs since the last visit here. Aerobic exercise: regularly as directed Blood pressure checks: no Glucose monitoring: no Labs reviewed: yes and Did them today. Health Maintenance Topic Date Due ??? DTAP/TDAP/TD VACCINES (1 - Tdap) 1967 ??? ZOSTER VACCINE (1) 2008 ??? ANNUAL MEDICARE WELLNESS VISIT 02/06/2016 ??? INFLUENZA VACCINE (1) 11/08/2016 ??? [facility] (Chart Reviewer Use Only) 11/08/2017 ??? BONE DENSITY TESTING 09/27/2018 ??? MAMMOGRAM 02/11/2019 ??? SCREENING FOR DIABETES 09/27/2019 ??? LIPID SCREENING 09/26/2021 ??? COLON CA SCREENING 11/06/2023 ??? PNEUMOCOCCAL VACCINE Completed ??? HEPATITIS C SCREENING Completed Past Medical, Surgical, Social, and Family Histories Patient Active Problem List Diagnosis Date Noted ??? Class 1 obesity due to excess calories with serious comorbidity and body mass index (BMI) of 31.0 to 31.9 in adult 05/13/2017 Priority: Not Prioritized ??? BMI 31.0-31.9,adult 05/13/2017 Priority: Not Prioritized ??? DAILY (obstructive [...] Outpatient Prescriptions Medication Sig Dispense Refill ??? furosemide (LASIX) 20 MG tablet Take 1 tablet by mouth once daily 30 tablet 5 ??? glucosamine-chondroitin (GLUCOSAMINE CHONDR COMPLEX) 500-400 MG capsule Take 1 capsule by mouthonce daily 30 capsule 5 ??? clotrimazole-betamethasone (LOTRISONE) 1-0.05 % cream Apply [...] Tabs by mouth daily with food ??? atorvastatin (LIPITOR) 40 MG tablet Take [...] or pain. Cardiovascular: No chest pain or SOB. + LE edema. Respiratory: No SOB or wheezing. Gastrointestinal: No pain or N/V/D or blood in stool. Genitourinary: No voiding difficulty. Musculoskeletal:no joint pain or swelling. Skin: No new rash or skin breakdown. Neurological: No weakness or headaches. Behavioral/Psych: No depression or change in mood. Endocrine: No heat or cold intolerance Hematologic/lymphatic: No abnormal bleeding noted. Allergy: No congestion or allergic sx. Physical Examination Vitals: 05/13/17 1352 BP: 122/72 Pulse: 100 Temp: 98.2 ??F SpO2: 96% Weight: 84.8 kg (187 lb) CrCl cannot be calculated (Patient's most recent sCr result is older than the maximum 15 days allowed.). Body mass index is 31.12 kg/(m^2). .General appearance: alert and NAD SKIN: b/l LE w/ shiny tight skin w erythema and mild hyperpigmentation noted on the anterior surface. Excoriations noted. EYES: Extraocular muscle movements are intact. Pupils [...] No murmurs, rubs, or gallops are noted. 2+ LE edema. No JVD or hepatojugular reflux noted. LUNGS: Clear to auscultation. No wheezes. No rales. No accessory muscle use. ABD: Bowel sounds are present. The abdomen is soft. There is no abdominal tenderness. Mild ad distension. No hepatosplenomegaly is appreciated. No bruit. No palpable aneurysm. Obese. Diastasis recti is noted. Psych: Ox3, mood normal Neuro: CN 2-12 intact MS: Lumbar spine w/o TTP or paraspinal muscle spasm noted. + straight leg raise on L. TTP along long medial thigh area. Decreased internal rotation of L hip. Assessment and Plan Leg swelling - most likely venous insufficiency. Patient does not have JVD or hepatojugular reflux on exam and BNP when checked 04/18/2017 was within normal limits. However leg swelling is increased from prior visit. Could be related to fluid overload secondary to worsening of CKD. - start lasix 20 mg po qday - check BMP in 1 week - echocardiogram - repeat BNP to see if increased Venous statis dermatitis - most likely cause of pt's ongoing skin changes. Unlikely to be allergic or fungal dermatitis as it has failed to responded to topical steroids or antifungals and is now bilateral. Patient was previously given prescription for Bactrim for possible cellulitis when initially only on left lower extremity without improvement. She also recently completed 10 days of doxycycline for on related pneumonia without improvement which makes this much less likely to be cellulitis. - pt has appt w/ derm tomorrow. Will keep - compression stocking - lasix as noted DDD lumbar/L groin strain/ OA hips / OA knees - back pain like 2/2 DDD lumber. Exercise handout given - L hip pain likely 2/2 to mild OA as well and groin strain. Exercise handout given - continue exercise as tolerated - continue vitamin D supplementation. Start glucosamine-chondroitn and tumeric. Will trial for 2 months and can d/c if no improvement. HTN/CKD3 - controlled - continue current meds HLD - controlled - continue current meds Obesity/ pre-diabetes - referral to MNT given - consider referral to weight loss clinic as well - pt advised to contact sleep specialist about repeating sleep study given weight changes Allergic rhinitis - controlled - continue current medications Anxiety/depression - well controlled - continue current meds Gastritis - controlled - continue PPI The above was discussed with the patient and understanding was voiced. Patient is in agreement withthe above plan HM: - AWV to be scheduled next visit - KYLE completed today Return to office: Return in about 3 months (around 08/13/2017) for f/u pain and leg swelling . SKILLS COORDINATOR documented in this encounter Plan of Treatment Upcoming Encounters Date Type Department Care Team (Late st Contact Info) Description 06/29/2024 10:00 AM CDT Office Visit [facility] Medical [facility] - Internal Medicine [address] [place] [phone] Tamia Brooks MD [address] [place] [phone] documented as of this encounter Goals Goal Patient Goal Type Associated Problems Recent Progress Patient-Stated? Author Blood Pressure < 140/90 Blood Pressure 130/70( 024 1:19 PM CDT) Lola Serna MA documented as of this encounter Procedures Procedure Name Priority Date/Time Associated Diagnosis Comments BASIC METABOLIC PANEL (CALCIUM TOTAL) Routine 05/22/2017 8:35 AM CDT Leg swelling B-TYPE NATRIURETIC PEPTIDE Routine 05/22/2017 8:35 AM CDT Essential (primary) hypertension Leg swelling documented in this encounter Results * ECHOCARDIOGRAM 2D WITH DOPPLER (05/23/2017 8:21 AM CDT) 05/23/2017 8:21 AM CDT Narrative [facility] - 05/23/2017 5:[address] [facility] at [address] [place] [address] Transthoracic Echocardiogram 2D, M-mode, Doppler, and Color Doppler Patient: MAURA WATKINS MR number: [id number] Height: 65 in Weight: 186.6 lb BSA: 1.92 m?? Study date: 23-May-2017 : 1950 Age: 67 years Gender: Female Race: Allergies: DARVON Director Of Fundraising: ??Faiza Mcgrath RDCS, RVT Referring Physician: ??Tamia Brooks MD Reading [...] Procedure: The study was performed in the [facility]. The transthoracic approach was used. The study [...] Procedure Note Madhu Richards MD - 05/23/[address] [facility] at [address] [place] [address] Transthoracic Echocardiogram 2D, M-mode, Doppler, and Color Doppler Patient: MAURA WATKINS MR number: [id number] Height: 65 in Weight: 186.6 lb BSA: 1.92 m?? Study date: 23-May-2017 : 1950 Age: 67 years Gender: Female Race: Allergies: DARVON Director Of Fundraising: Faiza Mcgrath RDCS, RVT Referring Physician: Tamia Brooks MD Reading Physician: [...] Procedure: The study was performed in the [facility]. The transthoracic approach was used. The study [...] 23-May-2017 17:23:08 Tamia Brooks MD ECHO ORDERABLES [facility] [address] [place] [address] * B-TYPE NATRIURETIC PEPTIDE (05/22/2017 8:35 AM CDT) BNP 16.5 0.0 - 100.0 pg/mL [facility] INSURANCE BILL Comment:FASTING Blood BLOOD SPECIMEN / Unknown 05/22/2017 8:35 AM CDT 05/22/2017 Narrative Resulting Agency Comment [facility] [address] [facility] [facility] ??[facility] [id number] Tamia Brooks MD LAB - CHEMISTRY ORDE JULISSA [facility] INSURANCE BILL [address] [place] [address] * (ABNORMAL) BASIC METABOLIC PANEL (CALCIUM TOTAL) (05/22/2017 8:35 AM CDT) Glucose 125(H) 65 - 99 mg/dL [facility] INSURANCE BILL BUN 17 8 - 27 mg/dL [facility] INSURANCE BILL Creatinine 1.35(H) 0.57 - 1.00 mg/dL [facility] INSURANCE BILL eGFR by MDRD 40(L) >59 mL/min/1.7 3 [facility] INSURANCE BILL eGFR by MDRD 46(L) >59 mL/min/1.7 3 [facility] INSURANCE BILL BUN/Creatinine Ratio 13 12 - 28 [facility] INSURANCE BILL Sodium 143 134 - 144 mmol/L [facility] INSURANCE BILL Potassium 4.6 3.5 - 5.2 mmol/L [facility] INSURANCE BILL Chloride 102 96 - 106 mmol/L [facility] INSURANCE BILL CO2 22 18 - 29 mmol/L [facility] INSURANCE BILL Calcium 10.1 8.7 - 10.3 mg/dL [facility] INSURANCE BILL Comment:FASTING Blood BLOOD SPECIMEN / Unknown 05/22/2017 8:35 AM CDT 05/22/2017 Narrative Resulting Agency Comment [facility] [address] ??[facility] [id number] Tamia Brooks MD LAB - CHEMISTRY [facility] Organization Address City/State/ZIP Co de Phone Number [facility] INSURANCE BILL [address] [place] [address] documented in this encounter Visit Diagnoses Diagnosis Leg swelling- Primary Swelling of limb Venous stasis dermatitis of both lower extremities DDD (degenerative disc disease), lumbar Degeneration of lumbar or lumbosacral intervertebral disc Groin strain, left, initial encounter Primary osteoarthritis of left hip Primary localized osteoarthrosis, pelvic region and thigh Primary osteoarthritis of right hip Primary localized osteoarthrosis, pelvic region and thigh Primary osteoarthritis of both knees Primary localized osteoarthrosis, lower leg CKD (chronic kidney disease) stage 3, GFR 30-59 ml/min (HCC) Chronic kidney disease, Stage III (moderate) Essential (primary) hypertension Unspecified essential hypertension Hyperlipidemia, unspecified hyperlipidemia type Prediabetes Other abnormal glucose Class 1 obesity due to excess calories with serious comorbidity and body mass index (BMI) of 31.0 to 31.9 in adult BMI 31.0-31.9,adult Body Mass Index 31.0-31.9, adult DAILY (obstructive sleep apnea) Obstructive sleep apnea (adult) (pediatric) Chronic allergic rhinitis, unspecified seasonality, unspecified trigger Anhydrotic dermatitis of foot 04/27/12 Contact dermatitis and other eczema, due to unspecified cause Situational mixed anxiety and depressive disorder Adjustment disorder with mixed anxiety and depressed mood Chronic insomnia Insomnia, unspecified Osteopenia, unspecified location Leg swelling Swelling of limb documented in this encounter Care Teams Dock Pumper Relationship Specialty Start Date End Date Tamia Brooks MD [address] [facility] [address] [place] [address] PCP - General Internal Medicine 07/26/16 Yohan Barros DPM [address] [facility] [address] [place] [address] Podiatry 05/24/13 documented as of this encounter
--- OUTSIDE RECORDS SUMMARY | 2024-03-22 20:12 | XMS_ITS | Encounter Summary ---
Author Organization [facility] Address [address] [place] [address] Care Team Providers Care Teacher Associate Name Role Phone Yohan Barros DPM Unavailable [phone] Tamia Brooks MD Primary Care Provider Reason for Visit * Reason Onset Date Comments Refill Request 02/24/2017 Encounter Details Date Type Department Care Team (Late st Contact Info) Description 02/24/2017 Refill [facility] Medical [facility] - Internal Medicine [address] [facility] [address] [place] [phone] Tamia Brooks MD [address] [place] [address] [place] [phone] Refill Request Social History Tobacco Use [...] encounter Miscellaneous Notes * Telephone Encounter - Braulio Bertrandsheeba Ariza - 02/24/2017 9:37 AM CST Last appt: 11/12/16 Next appt: 05/13/17 Number of cancel or no shows in the last 12 months: 0 Allergies have been reviewed. Correct pharmacy is populated. Please sign RX and close encounter. MUD MOLDER * Telephone Encounter - Momo Lopez - 02/24/2017 9:31 AM CST Requesting a refill on her Omeprazole 40mg capsules MUD MOLDER documented in this encounter Plan of Treatment Upcoming Encounters Date Type Department Care Team (Late st Contact Info) Description 06/29/2024 10:00 AM CDT Office Visit [facility] Medical [facility] - Internal Medicine [address] [facility] [address] [place] [phone] Tamia Brooks MD [address] [place] [phone] documented as of this encounter Goals Goal Patient Goal Type Associated Problems Recent Progress Patient-Stated? Author Blood Pressure < 140/90 Blood Pressure 130/70( 024 1:19 PM CDT) Lola Serna MA documented as of this encounter Visit Diagnoses Diagnosis Gastroesophageal reflux disease without esophagitis Esophageal reflux documented in this encounter Care Teams Teacher Associate Relationship Specialty Start Date End Date Tamia Brooks MD [address] [place] [phone] PCP - General Internal Medicine 07/26/16 Yohan Barros DPM [address] [facility] [address] [place] [address] Podiatry 05/24/13 documented as of this encounter
--- OUTSIDE RECORDS SUMMARY | 2024-03-22 20:12 | XMS_ITS | Encounter Summary ---
Author Organization [facility] Address [address] [facility] [place] [address] Care Team Providers Care Porter Bath Name Role Phone Yohan Barros DPM Unavailable [phone] Tamia Brooks MD Primary Care Provider Reason for Visit * Reason Onset Date Comments Results 09/19/2016 Encounter Details Date Type Department Care Team (Late st Contact Info) Description 09/19/2016 Telephone [facility] - Internal Medicine [address] [facility] [address] [place] [phone] Tamia Brooks MD [address] [place] [address] [place] [phone] Results Social History Tobacco Use Types [...] Telephone Encounter - Myriam Plaza RN - 09/19/2016 2:29 PM CDT Spoke to pt and reviewed 's note/information, pt verbalized understanding. * Telephone Encounter - Tamia Brooks MD - 09/19/2016 1:39 PM CDT Please cough patient to let her know that her urine culture shows her UTI is resistant to the antibiotic that she was given. She will need to be switched to Macrobid 100 mg b.i.d. x7 days. Thank you documented in this encounter Plan of Treatment Upcoming Encounters Date Type Department Care Team (Late st Contact Info) Description 06/29/2024 10:00 AM CDT Office Visit [facility] - Internal Medicine [address] [place] [phone] Tamia Brooks MD [address] [place] [phone] documented as of this encounter Goals Goal Patient Goal Type Associated Problems Recent Progress Patient-Stated? Author Blood Pressure < 140/90 Blood Pressure 130/70( 024 1:19 PM CDT) No Lola Neff MA documented as of this encounter Visit Diagnoses Not on filedocumented in this encounter Care Teams Porter Bath Relationship Specialty Start Date End Date Tamia Brooks MD [address] [place] [phone] PCP - General Internal Medicine 07/26/16 Yohan Barros DPM [facility] [address] [place] [phone] Podiatry 05/24/13 documented as of this encounter
--- OUTSIDE RECORDS SUMMARY | 2024-03-22 20:12 | XMS_ITS | Encounter Summary ---
Author Organization [facility] Address [address] [facility] [place] [address] Care Team Providers Care Contracts Attorney Name Role Phone Yohan Barros DPM Unavailable [phone] Lemuel Hoang MD Primary Care Provider Unavailab le Encounter Details Date Type Department Care Team (Late Contact Info) Description 03/07/2016 Orders Only [facility] - Internal Medicine [address] [facility] [place] [address] Lemuel Hoang MD RETIRED Laryngitis, chronic; Chronic right-sided low back pain without sciatica; Spondylosis of lumbar region without myelopathy or [...] Visit [facility] - Internal Medicine [facility] [address] Tamia Brooks MD [address] [place] [phone] documented as of this encounter Goals Goal Patient Goal Type Associated Problems Recent Progress Patient-Stated? Author Blood Pressure < 140/90 Blood Pressure 130/70( 024 1:19 PM CDT) Lola Serna MA documented as of this encounter Procedures Procedure Name Priority Date/Time Associated Diagnosis Comments MRI LUMBAR SPINE WO CONTRAST Routine 01/19/2016 Chronic right-sided low back pain without sciatica Spondylosis of lumbar region without myelopathy or radiculopathy documented in this encounter Results * MRI LUMBAR SPINE WO CONTRAST (01/19/2016) Anatomical Region Laterality Modality Spine Magnetic Resonan ce Lemuel Hoang MD MR ORDERABLES documented in this encounter Visit Diagnoses Diagnosis Laryngitis, chronic Chronic laryngitis Chronic right-sided low back pain without sciatica 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
--- OUTSIDE RECORDS SUMMARY | 2024-03-22 20:12 | XMS_ITS | Encounter Summary ---
Author Organization [facility] Address [address] [facility] [place] [address] Care Team Providers Care Police And Fire Dispatcher Name Role Phone Yohan Barros DPM Unavailable [phone] Tamia Brooks MD Primary Care Provider Reason for Visit * Reason Onset Date Comments Erroneous encounter-disregard 06/09/2017 Encounter Details Date Type Department Care Team (Late st Contact Info) Description 06/09/2017 Telephone [facility] Medical [facility] - Internal Medicine [address] [facility] [address] [place] [address] Tamia Brooks MD [address] [place] [address] [place] [phone] Erroneous encounter-disregard Social History Tobacco Use [...] Miscellaneous Notes * Telephone Encounter - Bee Harvey MA - 06/09/2017 8:41 AM CDT Opened in error. documented in this encounter Plan of Treatment Upcoming Encounters Date Type Department Care Team (Late st Contact Info) Description 06/29/2024 10:00 AM CDT Office Visit [facility] - Internal Medicine [address] [facility] [address] [place] [address] Tamia Brooks MD [address] [place] [phone] documented as of this encounter Goals Goal Patient Goal Type Associated Problems Recent Progress Patient-Stated? Author Blood Pressure < 140/90 Blood Pressure 130/70( 024 1:19 PM CDT) No Lola Neff MA documented as of this encounter Visit Diagnoses Not on filedocumented in this encounter Care Teams Police And Fire Dispatcher Relationship Specialty Start Date End Date Tamia Brooks MD [address] [place] [phone] PCP - General Internal Medicine 07/26/16 Yohan Barros DPM [facility] [place] [address] [place] [phone] Podiatry 05/24/13 documented as of this encounter
--- OUTSIDE RECORDS SUMMARY | 2024-03-22 20:12 | XMS_ITS | Encounter Summary ---
Author Organization [facility] Address [address] [facility] [place] [address] Care Team Providers Care Ndt Inspector Name Role Phone Yohan Barros DPM Unavailable [phone] Lemuel Hoang MD Primary Care Provider Unavailab le Reason for Visit * Reason Onset Date Comments Results 10/06/2015 cholesterol Medication Problem 10/06/2015 Poison Betty Ketchum [place] Exposure 10/06/2015 Encounter Details Date Type Department Care Team (Late st Contact Info) Description 10/06/2015 Telephone [facility] Medical [facility] - Internal Medicine [address] [place] [address] [place] [address] Lemuel Hoang MD RETIRED Results (cholesterol); Medication Problem; Poison Betty Ketchum [place] Exposure Social History Tobacco Use Types Packs/Day Years [...] encounter Miscellaneous Notes * Telephone Encounter - Georgia Gama LPN - 10/06/2015 2:23 PM CDT Spoke with pt, informed her per Dr. Hoang, she voiced understanding. * Telephone Encounter - Lemuel Hoang MD - 10/06/2015 1:33 PM CDT 1. I sent her an e-mail yesterday about the atorvastatin. She should start back on it. 2. She can increase the prednisone back to 3 tablets a day for 3 days then taper off again. I'll send a new Rx. 3. Omeprazole Rx signed. Lemuel Hoang MD * Telephone Encounter - Georgia Gama LPN - 10/06/2015 9:25 AM CDT 1. Saw her labs, Cholesterol is much increased since she stopped the Atorvastatin. Wants to know ifyou want her to go back on it now? Does not need a script, has a bunch at home. 2. Has a few doses of prednisone left and poison betty is still very itchy and has a lot of rash still. If prescribing send to [facility]. 3. Also would like her Omeprazole sent to her mail order [facility] She said you are very nice. Has been very happy with her visits with you! documented in this encounter Plan of Treatment Upcoming Encounters Date Type Department Care Team (Late st Contact Info) Description 06/29/2024 10:00 AM CDT Office Visit [facility] Medical [facility] - Internal Medicine [address] [place] [address] [place] [phone] Tamia Brooks MD [address] [place] [phone] documented as of this encounter Goals Goal Patient Goal Type Associated Problems Recent Progress Patient-Stated? Author Blood Pressure < 140/90 Blood Pressure 130/70( 024 1:19 PM CDT) No Lola Neff MA documented as of this encounter Visit Diagnoses Not on filedocumented in this encounter Care Teams Ndt Inspector Relationship Specialty Start Date End Date Lemuel Hoang MD [address] [place] [phone] PCP - General Family Medicine 05/06/14 07/25/16 Yohan Barros DPM [address] [place] [phone] Podiatry 05/24/13 documented as of this encounter
--- OUTSIDE RECORDS SUMMARY | 2024-03-22 20:12 | XMS_ITS | Encounter Summary ---
Author Organization [facility] Address [address] [place] [address] Care Team Providers Care Culinary Internship Name Role Phone Yohan Barros DPM Unavailable [phone] Tamia Brooks MD Primary Care Provider Reason for Visit * Reason Onset Date Comments Medication Issue 03/12/2018 Adverse reactio n to Topamax Encounter Details Date Type Department Care Team (Late st Contact Info) Description 03/12/2018 Telephone [facility] Medical [facility] - Internal Medicine [address] [facility] [address] [place] [address] Tamia Brooks MD [address] [place] [address] [address] [place] [address] Medication Issue (Adverse reaction to Topamax) Social History Tobacco Use Types Packs/Day Years [...] Telephone Encounter - Natasha Vazquez LPN - 03/12/2018 3:39 PM TEXTILE TECHNICAL OFFICER Called and spoke to Avelino, pt . 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 Start w/ 300 mg at bedtime x 1 week, then increase to BID x 1 week, then TID if needed. If she still has lotrisone at home I would try that first for the bumps. ILE TECHNICAL OFFICER * Telephone Encounter - Natasha Vazquez LPN - 03/12/2018 3:18 PM TEXTILE TECHNICAL OFFICER OV assessment notes from 02/18/18 Memory loss - x several months - [...] - patient reports that she reads daily Called pt who reports after taking Topamax 25 mg BID for the 2nd week she began having memory issues. She reports relief from neuropathic pain but contributes it to her memory issues. Pt reports she will no longer take this med - today pt reported she could not remember how to get to the location of her nail salon and needed directions for a place she has gone to several times before Also reports BLE remains itchy - not as bad as it was as OV - but states area is very bumpy - wanting something to help treat areas ILE TECHNICAL OFFICER * Telephone Encounter - Laurel Farrell - 03/12/2018 2:15 PM CST Patient's called concerning patient's adverse reaction to topiramate 25 mg tab that was given to patient. Per the , patient is disoriented, has memory loss. The wants a nurse to call him back. He can be reached at [phone]. ILE TECHNICAL OFFICER documented in this encounter Plan of Treatment Upcoming Encounters Date Type Department Care Team (Late st Contact Info) Description 06/29/2024 10:00 AM CDT Office Visit [facility] - Internal Medicine [address] [place] [address] [address] [place] [address] Tamia Brooks MD [address] [place] [phone] documented as of this encounter Goals Goal Patient Goal Type Associated Problems Recent Progress Patient-Stated? Author Blood Pressure < 140/90 Blood Pressure 130/70( 024 1:19 PM CDT) Lola Serna MA documented as of this encounter Visit Diagnoses Not on filedocumented in this encounter Care Teams Culinary Internship Relationship Specialty Start Date End Date Tamia Brooks MD [address] [place] [phone] PCP - General Internal Medicine 07/26/16 Yohan Barros DPM [facility] [place] [address] [place] [phone] Podiatry 05/24/13 documented as of this encounter
--- OUTSIDE RECORDS SUMMARY | 2024-03-22 20:12 | XMS_ITS | Encounter Summary ---
Author Organization [facility] Address [address] [place] [address] Care Team Providers Care Uke Operator Name Role Phone Yohan Barros DPM Unavailable [phone] Tamia Brooks MD Primary Care Provider [phone] Reason for Visit * Reason Onset Date Comments Referral 06/03/2017 Encounter Details Date Type Department Care Team (Late st Contact Info) Description 06/03/2017 Telephone [facility] Medical [facility] - Internal Medicine [address] [facility] [address] [place] [address] Tamia Brooks MD [address] [place] [address] [place] [phone] Referral Social History Tobacco Use Types Packs/Day [...] Telephone Encounter - Natasha Vazquez LPN - 06/03/2017 9:44 AM CDT Orders Placed This Encounter ??? BASIC METABOLIC PANEL (CALCIUM TOTAL) ??? AMB REFERRAL TO NEPHROLOGY Standing Status: Future Standing Expiration Date: 06/03/2018 Referral Type: Evaluate & Treat Referral Reason: Specialty Services Required Referred to Provider: Derek Baltazar MD Number of Visits Requested: 1 ??? furosemide (LASIX) 20 MG tablet Sig: Take 1 tablet by mouth 2 times daily Dispense: 60 tablet Refill: 5 Pt advised * Telephone Encounter - Tamia Brooks MD - 06/03/2017 9:39 AM CDT If she is still having swelling, increase lasix to 20 mg twice a day. She should repeat BMP in 1 week after increasing dose. Referral to Dr. Baltazar given per pt request. * Telephone Encounter - Natasha Vazquez LPN - 06/03/2017 9:28 AM CDT Called pt and she is requesting a referral to manufacturing scheduler due to stage 3 kidney disease - reports despite her meds she still has swelling. Disregard note below regarding neurologist * Telephone Encounter - Gemma Banda - 06/03/2017 8:46 AM CDT Would like to be referred to neurologist documented in this encounter Plan of Treatment Upcoming Encounters Date Type Department Care Team (Late st Contact Info) Description 06/29/2024 10:00 AM CDT Office Visit [facility] - Internal Medicine [address] [facility] [address] [place] [phone] Tamia Brooks MD [address] [place] [phone] documented as of this encounter Goals Goal Patient Goal Type Associated Problems Recent Progress Patient-Stated? Author Blood Pressure < 140/90 Blood Pressure 130/70( 024 1:19 PM CDT) No Lola Neff MA documented as of this encounter Procedures Procedure Name Priority Date/Time Associated Diagnosis Comments BASIC METABOLIC PANEL (CALCIUM TOTAL) Routine 09/26/2017 9:35 AM CDT Leg swelling CKD (chronic kidney disease) stage 3, GFR 30-59 ml/min ([facility]) documented in this encounter Results * (ABNORMAL) BASIC METABOLIC PANEL (CALCIUM TOTAL) (09/26/2017 9:35 AM CDT) Glucose 123(H) 65 - 99 mg/dL [facility] INSURANCE BILL BUN 18 8 - 27 mg/dL [facility] INSURANCE BILL Creatinine 1.27(H) 0.57 - 1.00 mg/dL [facility] INSURANCE BILL eGFR by MDRD 43(L) >59 mL/min/1.7 3 [facility] INSURANCE BILL eGFR by MDRD 50(L) >59 mL/min/1.7 3 [facility] INSURANCE BILL BUN/Creatinine Ratio 14 12 - 28 [facility] INSURANCE BILL Sodium 147(H) 134 - 144 mmol/L [facility] INSURANCE BILL Potassium 5.1 3.5 - 5.2 mmol/L [facility] INSURANCE BILL Chloride 105 96 - 106 mmol/L [facility] INSURANCE BILL CO2 23 20 - 29 mmol/L [facility] INSURANCE BILL Calcium 10.4(H) 8.7 - 10.3 mg/dL [facility] INSURANCE BILL Blood BLOOD SPECIMEN / Unknown 09/26/2017 9:35 AM CDT 09/26/2017 Narrative [facility] INSURANCE BILL - 09/27/2017 6:11 AM CDT A courtesy copy of this report has been sent to Derek Baltazar MD. Resulting Agency Comment [facility] [address] [facility] ??[facility]ly [facility] [id number] Tamia Brooks MD LAB - CHEMISTRY PREETI COSTA [facility] INSURANCE BILL [address] [place] [address] documented in this encounter Visit Diagnoses Diagnosis Leg swelling Swelling of limb Venous stasis dermatitis of both lower extremities CKD (chronic kidney disease) stage 3, GFR 30-59 ml/min (HCC) Chronic kidney disease, Stage III (moderate) documented in this encounter Care Teams Uke Operator Relationship Specialty Start Date End Date Tamia Brooks MD [address] [facility] [address] [place] [address] PCP - General Internal Medicine 07/26/16 Yohan Barros DPM [address] [facility] [address] [place] [address] Podiatry 05/24/13 documented as of this encounter
--- OUTSIDE RECORDS SUMMARY | 2024-03-22 20:12 | XMS_ITS | Encounter Summary ---
Author Organization [facility] Address [address] [place] [address] Care Team Providers Care Gymnastic Teacher Name Role Phone Yohan Barros DPM Unavailable [phone] Tamia Brooks MD Primary Care Provider Reason for Visit * Reason Comments Refill Request Encounter Details Date Type Department Care Team (Late st Contact Info) Description 09/11/2017 Refill [facility] - Internal Medicine [address] [facility] [address] [place] [phone] Tamia Brooks MD [address] [place] [address] [place] [phone] Refill Request Social History Tobacco Use [...] Notes * Telephone Encounter - Ese Warner Nia - 09/11/2017 11:24 AM CDT Last appt: 08-28-17 Next appt: 02-18-18 Number of cancel or no shows in the last 12 months: none Allergies have been reviewed. Correct pharmacy is populated. Please sign RX and close encounter. * Telephone Encounter - Zenaida Bertrand - 09/11/2017 11:23 AM CDT Last appt: 08/28/17 Next appt: 02/18/18 Number of cancel or no shows in the last 12 months: 0 Allergies have been reviewed. Correct pharmacy is populated. Please sign RX and close encounter. documented in this encounter Plan of Treatment Upcoming Encounters Date Type Department Care Team (Late st Contact Info) Description 06/29/2024 10:00 AM CDT Office Visit [facility] - Internal Medicine [address] [place] [phone] Tamia Brooks MD [address] [place] [phone] documented as of this encounter Goals Goal Patient Goal Type Associated Problems Recent Progress Patient-Stated? Author Blood Pressure < 140/90 Blood Pressure 130/70( 024 1:19 PM CDT) Lola Serna MA documented as of this encounter Visit Diagnoses Not on filedocumented in this encounter Care Teams Gymnastic Teacher Relationship Specialty Start Date End Date Tamia Brooks MD [address] [place] [phone] PCP - General Internal Medicine 07/26/16 Yohan Barros DPM [address] [place] [address] [place] [phone] Podiatry 05/24/13 documented as of this encounter
--- OUTSIDE RECORDS SUMMARY | 2024-03-22 20:12 | XMS_ITS | Encounter Summary ---
Author Organization [facility] Address [address] [facility] [place] [address] Care Team Providers Care Cd Reactor Operator Head Name Role Phone Yohan Barros DPM Unavailable [phone] Tamia Brooks MD Primary Care Provider [phone] Encounter Details Date Type Department Care Team (Late st Contact Info) Description 02/14/2017 Orders Only [facility] - Pulmonology [address] [facility], [address] [place] [address] Ramon Parker MD [address] [facility] [address] [place] [address] DAILY (obstructive sleep apnea) Social History Tobacco [...] on file documented as of this encounter Progress Notes * Brittany Urbano - 02/14/2017 2:27 PM CST The patient has been notified of this information and all questions answered. INE FILLER SERVICER * Ramon Parker MD - 02/14/2017 11:25 AM CST I reviewed the CPAP titration. She did best with a pressure of 9 cm of water. I am ordering a machine for her. She needs to see us a week or 2 after she started using the machine so we can discuss results of the sleep study with her and also check on her compliance. INE FILLER SERVICER documented in this encounter Plan of Treatment Upcoming Encounters Date Type Department Care Team (Late st Contact Info) Description 06/29/2024 10:00 AM CDT Office Visit [facility] Medical [facility] - Internal Medicine [address] [phone] Tamia Brooks MD [address] [place] [phone] documented as of this encounter Goals Goal Patient Goal Type Associated Problems Recent Progress Patient-Stated? Author Blood Pressure < 140/90 Blood Pressure 130/70( 024 1:19 PM CDT) Lola Serna MA documented as of this encounter Visit Diagnoses Diagnosis DAILY (obstructive sleep apnea)- Primary Obstructive sleep apnea (adult) (pediatric) documented in this encounter Care Teams Cd Reactor Operator Head Relationship Specialty Start Date End Date Tamia Brooks MD [address] [place] [phone] PCP - General Internal Medicine 07/26/16 Yohan Barros DPM [address] [place] [address] [place] [address] Podiatry 05/24/13 documented as of this encounter
--- OUTSIDE RECORDS SUMMARY | 2024-03-22 20:12 | XMS_ITS | Encounter Summary ---
Author Organization [facility] Address [address] [place] [address] Care Team Providers Care Instrumental Teacher Name Role Phone Yohan Barros DPM Unavailable [phone] Tamia Brooks MD Primary Care Provider [phone] Reason for Visit * Reason Onset Date Comments Erroneous encounter-disregard 12/16/2017 Encounter Details Date Type Department Care Team (Late Contact Info) Description 12/16/2017 Telephone [facility] Internal Medicine [address] [place] [phone] Tamia Brooks MD [address] [place] [phone] Erroneous encounter-disregard Social History Tobacco Use [...] Upcoming Encounters Date Type Department Care Team ([facility] Contact Info) Description 06/29/2024 10:00 AM CDT Office Visit [facility] Internal Medicine [address] [place] [address] [address] [place] [address] Tamia Brooks MD [address] [place] [address] documented as of this encounter Goals Goal Patient Goal Type Associated Problems Recent Progress Patient-Stated? Author Blood Pressure < 140/90 Blood Pressure 130/70( 024 1:19 PM CDT) Lola Serna MA documented as of this encounter Visit Diagnoses Not on filedocumented in this encounter Care Teams Instrumental Teacher Relationship Specialty Start Date End Date Tamia Brooks MD [address] [place] [address] PCP - General Internal Medicine 07/26/16 Yohan Barros DPM [address] [phone] Podiatry 05/24/13 documented as of this encounter
--- OUTSIDE RECORDS SUMMARY | 2024-03-22 20:12 | XMS_ITS | Encounter Summary ---
Author Organization [facility] Address [address] [place] [address] Care Team Providers Care Dough Panner Name Role Phone Yohan Barros DPM Unavailable [phone] Tamia Brooks MD Primary Care Provider [phone] Reason for Visit * Auth/Cert Specialty Diagnoses / Procedures Referred By Valeria ramesh Referred To Contact Diagnoses Gastroesophageal reflux disease, esophagitis presence not specified Gastroesophageal reflux disease, esophagitis presence not specified Procedures ESOPHAGOGASTRODUODENOSCOPY (EGD) Referral ID Status Reason Start Date Expiration Date Visits Re quested Visits Authorized [id number] 1 1 Encounter Details Date Type Department Care Team (Late st Contact Info) Description 10/04/2016 12:18 PM CDT Anesthesia Event [facility] - Endoscopy Services [address] [place] [address] Jhonathan Mejia MD [address] [place] [address] Anesthesia Record Procedure Summary Procedure Name Responsible Anesthesiologist Anesthesia Start Time Anesthesia Stop Time ESOPHAGOGASTRODUODENOSCOPY (EGD) Jhonathan Segura MD 10/04/16 1218 10/04/16 1228 Events Date Time Event Comment 10/04/2016 1203 1218 An Start 1218 An Start Data 1221 PT Reassessment 1222 Time Out Anesthesia part icipated in timeout at the time documented in the record by nursing 1226 Electnc Sig 1228 an stop data 1228 Handoff 1228 An Stop Meds Name Total lidocaine 2% injection (20 mg/ml) 50 mg propofol (DIPRIVAN) injection 10mg/ml (E NDO USE) 13 mL 0.9% NaCl infusion 100 mL * Agents Name O2 * Blood No blood administrations on file. Lines, Drains, and Airways Type Details Placement Removal Peripheral IV Date: 10/04/16; Time : 1207; Orientation: Right; Placed By: Enoch Garcia RN; Tolerance: Well 10/04/16 1207 by Charisma Varghese RN 10/04/16 1327 by Sherri Benton LPN documented in this encounter Social History Tobacco [...] as of this encounter Progress Notes * Ankit Montano APRN-TOOL OPERATOR - 10/04/2016 12:29 PM CDT ANESTHESIA POSTPROCEDURE EVALUATION Maura Watkins is a 66 y.o. female Temp: 98 ??F Pulse: 78 Resp: 16 BP: 138/90 SpO2: 97 % Anesthesia Type: MAC Mental status: sufficiently recovered from acute administration of anesthesia to participate in theevaluation. Level of consciousness: awake No numbness, tingling or visual disturbances present. General appearance: well-appearing Respiratory function: natural airway. Cardiac: stable Pain: comfortable/acceptable PONV: None Postop hydration: adequate. Patient may be released from anesthesia care. Perioperative Complications: No value filed. ASA/AQI Tracking Events: No value filed. documented in this encounter Consult Notes * Jhonathan Mejia MD - 10/04/2016 11:40 AM CDT ANESTHESIA PREOPERATIVE EVALUATION NOTE Procedure: ESOPHAGOGASTRODUODENOSCOPY (EGD) Vitals: Will review prior to induction ANESTHESIA PRE-EVALUATION NOTE Physical Exam: Orientation: Orientation X3 Airway/Mallampati Score: I Mouth Opening Distance: 4 fingerwidths Neck ROM: full TM Distance: > 3 FB Teeth: normal Heart: regular rate rhythm Lungs: normal Abdomen Exam: normal Review of Systems: History of anesthetic complications: No ANESTHESIA PLAN SECTION ASA Score: 3 NPO Status: No solids since midnight and No liquids within 2 hours Anesthesia Plan: MAC Planned Induction: intravenous Planned Postop Destination: endo Anesthetic plan was discussed with: patient The patient's procedural Anesthetic Plan with discussed with the TOOL OPERATOR. BMI, Height, Weight Tobacco History Estimated body mass index is 32.42 kg/(m^2) as calculated from the following: Height as of 09/16/16: 1.6 m (5' 3 ). Weight as of 09/16/16: 83 kg (183 lb). History Smoking Status ??? Former Smoker ??? Types: Cigarettes ??? Quit date: 03/10/1990 Smokeless Tobacco ??? Never Used Alcohol History Drug History History Alcohol Use ??? Yes Comment: occ History Drug Use No Outpatient Medications: Inpatient Medications: No current outpatient prescriptions on file. No current facility-administered medications for this encounter. Allergies: Allergies Allergen Reactions ??? Darvon Nausea and/or Vomiting and Dizziness Problem List: Patient Active Problem List Diagnosis Date Noted [...] Hypertension, benign essential 09/20/2008 ??? Hyperlipidemia 09/20/2008 Medical History: Past Medical History: Diagnosis Date ??? Anhydrotic dermatitis of foot 04/27/12 04/27/2012 ??? Adductor tendonitis, right thigh 04/27/12 04/27/2012 ??? Allergic rhinitis 09/20/2008 ??? Cataract 12/07/2013 ??? Herpes zoster 04/12/2010 ??? Hyperlipidemia 09/20/2008 ??? Hypertension 09/20/2008 ??? Insulin resistance 10/27/2012 ??? Primary osteoarthritis of both knees 10/27/2012 ??? UTI Surgical History: Past Surgical History: Procedure Laterality Date ??? Cataract Removal Bilateral 2013 ??? COLONOSCOPY N/A 11/05/2013 N/A; COLONOSCOPY SCREEN ??? ENDOSCOPY, COLON, SCREENING 06/23/06 ??? Hysterectomy Lab Tests: Recent Labs Units 09/26/16 0802 WBC x10E3/uL 4.9 HEMOGLOBIN g/dL 12.4 PLATELET COUNT x10E3/uL 312 PTH INTACT pg/mL 34 Recent Labs Units 09/26/16 0802 SODIUM mmol/L 143 POTASSIUM mmol/L 4.9 CHLORIDE mmol/L 101 CO2 mmol/L 23 BUN mg/dL 23 BUN/CREAT 19 CREATININE mg/dL 1.24 H Recent Labs Units 09/26/16 0802 GLUCOSE mg/dL 113 H CALCIUM mg/dL 9.6 TSH uIU/mL 2.080 ALBUMIN g/dL 4.7 ALBUMIN/GLOBULIN RATIO 2.0 ALT IU/L 19 AST IU/L 22 documented in this encounter Plan of Treatment Upcoming Encounters Date Type Department Care Team (Late st Contact Info) Description 06/29/2024 10:00 AM CDT Office Visit [facility] - Internal Medicine [address] [place] [address] Tamia Brooks MD [address] [place] [address] documented as of this encounter Goals Goal Patient Goal Type Associated Problems Recent Progress Patient-Stated? Author Blood Pressure < 140/90 Blood Pressure 130/70( 024 1:19 PM CDT) Lola Serna MA documented as of this encounter Visit Diagnoses Not on filedocumented in this encounter Administered Medications Inactive Administered Medications - up to 3 most recent administrations Medication Order MAR Action Action Date Dose Rate Site lidocaine (XYLOCAINE) 2 % injection PRN, Starting on Fri10/04/16 at 1222, Until Fri10/04/16 at 1228, Anesthesia Intra-op $ Given 10/04/2016 12:22 PM CDT 50 mg propofol (DIPRIVAN) injection CONTINUOUS PRN, Starting on Fri10/04/16 at 1222, Until Fri10/04/16 at 1228, Anesthesia Intra-op $ New Bag/Syringe 10/04/2016 12:22 PM CDT documented in this encounter Care Teams Dough Panner Relationship Specialty Start Date End Date Tamia Brooks MD [address] [place] [address] PCP - General Internal Medicine 07/26/16 Yohan Barros DPM [address] [facility] [address] [place] [address] Podiatry 05/24/13 documented as of this encounter
--- OUTSIDE RECORDS SUMMARY | 2024-03-22 20:12 | XMS_ITS | Encounter Summary ---
Author Organization [facility] Address [address] [place] [address] Care Team Providers Care Assistance Coordinator Name Role Phone Yohan Barros DPM Unavailable [phone] Tamia Brooks MD Primary Care Provider [phone] Reason for Visit * Reason Comments Establish Care QUARTZ MINER BLASTING breast pain * Evaluate & Treat - Closed Specialty Diagnoses / Procedures Referred By Contac t Referred To Contact Surgery-General Diagnoses Breast pain, left Tamia Brooks MD [address] [facility] [address] [place] [address] Jada Mahoney MD [address] [facility] [address] [place] [address] Referral ID Status Reason Start Date Expiration Date V isits Requested Visits Authorized [id number] Closed Specialty Services Required 06/25/2018 12/22/2018 1 1 Encounter Details Date Type Department Care Team (Late st Contact Info) Description 07/30/2018 1:00 PM CDT Office Visit [facility] - Surgery [address] [place] [address] Jada Mahoney MD [address] [facility] [address] [place] [address] Pain of both breasts (Primary Dx); Breast pain, left Social History Tobacco Use Types Packs/Day Years [...] Reading Time Taken Comments Blood Pressure 120/80 07/30/2018 1:00 PM CDT Pulse 71 07/30/2018 1:00 PM CDT Temperature - - Respiratory Rate - - Oxygen Saturation 97% 07/30/2018 1:00 PM CDT Inhaled Oxygen Concentration - - Weight 87.5 kg (193 lb) 07/30/2018 1:00 PM CDT Height 165.1 cm (5' 5 ) 07/30/2018 1:00 PM CDT Body Mass Index 32.12 07/30/2018 1:00 PM CDT documented in this encounter Progress Notes * Jada Mahoney MD - 07/30/2018 1:14 PM CDT History and Physical Patient's Primary Care Physician: Tamia Brooks MD Chief Complaint/History of Present Illness Patient is here for intermittent pain in bilateral breast. Right/Left breast lightening/shooting pain that comes and goes. Says it isn't too bad, but just wants to make sure its ok. Really was just wondering since her lastmammogram she was called back for additional imaging. She did not bring the films or have them sentto us, we only have the reports that have been scanned into [employer] by . Imaging: Left diagnostic mammogram at [facility] in [place], [place], 04/29/2018 Done due to possible 9 mm x 14 mm opacity in the outer left breast on screening cc view. 3D images were obtained per report, no films sent and available for us to review today at this time, only the report which has been scanned into [employer] by . No reproducible mass lesion or architectural distortion is evident on mammogram occasional benign calcifications. BI-RADS category 2-routine mammographic screening recommended. It does not appear that ultrasound was done. Report indicates that she had a mammogram for screening in March,, but report of that is notavailable separately. In [facility], there is a copy of her mammogram report from 02/11/2017 BI-RADS category 2 benign findings.Breasts are noted to be heterogeneously dense, which may obscure small masses. Breast cancer risk factor assessment summary: Risk of a BRCA1 or BRCA2 MutationIndication for consideration of genetic testing and/or counseling if any of the below models over 5 % predicted risk genetic mutation for BRCA. BRCAPRO 0.1% Tyrer Cuzick v6 0.0% Tyrer Cuzick v7 0.1% Myriad 1.5% Risk Breast CancerIndication for consideration of MRI for screening if any of the below indicate over 20% predicted lifetime risk of breast cancer. 5 Year Risk Lifetime Risk BRCAPRO 2.1% 5.7% Tyrer Cuzick v6 2.2% 4.6% Tyrer Cuzick v7 2.4% 7.8% Miriam 1.8% 5.1% Luis 1.3% 2.4% Risk Ovarian Cancer 5 Year Risk Lifetime Risk BRCAPRO 0.2% 0.7% Computations are provided by the Risk Web Service developed jointly by the [employer] at the [facility] and the [facility] at the [facility] [place] Menarche 15 Menopause 48 First child Nulliparous Hysterectomy? no Ovaries removed? no HRT? yes Prior breast biopsies? no Family cancer history: Family History Problem Relation Age of Onset ??? Heart Failure Mother ??? Lung Cancer Father smoker ??? Cancer - Colon Brother 55 2008 ??? Cancer - Breast Maternal Aunt Past Medical History: Diagnosis Date ??? Anhydrotic [...] UPPER 10/04/2016 gastritis, hiatus hernia-Yogi ??? Hysterectomy Current Outpatient Prescriptions Medication Sig Dispense Refill [...] ??? Darvon Nausea and/or Vomiting and Dizziness Social History reports that she quit smoking about 28 years ago. Her smoking use included Cigarettes. She has a 2.40 pack-year smoking history. She has never used smokeless tobacco. She reports that she drinks alcohol. She reports that she does not use illicit drugs. Review of Systems General ROS: negative Psychological ROS: negative Ophthalmic ROS: no recent vision changes ENT ROS: Negative, no palpable adenopathy in the neck or supraclavicular areas Allergy and Immunology ROS: negative Hematological and Lymphatic ROS: negative, no palpable adenopathy in the neck or supraclavicular areas Endocrine ROS: negative Breast ROS: occasional sharp shooting pains Respiratory ROS: no cough, shortness of breath, or wheezing Cardiovascular ROS: no chest pain or dyspnea on exertion Gastrointestinal ROS: no abdominal pain, change in bowel habits, or black or bloody stools Genito-Urinary ROS: no dysuria, trouble voiding, or hematuria Musculoskeletal ROS: negative Neurological ROS: no TIA or stroke symptoms Dermatological ROS: negative Exam Vitals: 07/30/18 1300 BP: 120/80 Pulse: 71 SpO2: 97% Weight: 87.5 kg (193 lb) Height: 1.651 m (5' 5 ) Physical Exam Constitutional: She is oriented to person, place, and time and well-developed, well-nourished, and in no distress. HENT: Head: Normocephalic and atraumatic. Eyes: Conjunctivae are normal. Pupils are equal, round, and reactive to light. Neck: Normal range of motion. Neck supple. Cardiovascular: Normal rate and regular rhythm. Pulmonary/Chest: Effort normal and breath sounds normal. Abdominal: Soft. Musculoskeletal: Normal range of motion. Neurological: She is alert and oriented to person, place, and time. Skin: Skin is warm and dry. Psychiatric: Affect normal. Lymph - No adenopathy in supraclavicular or cervical lymph nodes Breast exam: Left breast - no masses in breast or axilla, no skin or nipple changes Right breast - no masses in breast or axilla, no skin or nipple changes Assessment and Plan Breast pains. No specific area definitively. Discussed that her outside mammogram reports were ok, but we do not have the actual films to review, but the reports indicate it was ultimately ok. We discussed that Breast MRI could be done for further workup as well, but would not likely be covered by insurance as she's not considered high risk. For her generalized breast tenderness, I recommend decreasing caffeine intake, and consideration oftaking either Vitamin E or Evening [place] Oil, both of which may help women with breast pain and tenderness. She was given a handout on this. She should follow up in 3-6 months if she continues to have problems or anytime sooner if she notesany changes such as new mass or worsening pain. documented in this encounter Plan of Treatment Upcoming Encounters Date Type Department Care Team (Late st Contact Info) Description 06/29/2024 10:00 AM CDT Office Visit [facility] Medical [facility] - Internal Medicine [address] [facility] [address] [place] [address] Tamia Brooks MD [address] [facility] [address] [place] [address] documented as of this encounter Goals Goal Patient Goal Type Associated Problems Recent Progress Patient-Stated? Author Blood Pressure < 140/90 Blood Pressure 130/70( 024 1:19 PM CDT) Lola Serna MA documented as of this encounter Procedures Procedure Name Priority Date/Time Associated Diagnosis Comments AMB REFERRAL TO BREAST SURGERY Routine 08/01/2018 10:29 PM CDT Breast pain, left documented in this encounter Results * AMB REFERRAL TO BREAST SURGERY (08/01/2018 10:29 PM CDT) Tamia Brooks MD OUTPATIENT REFERRALS documented in this encounter Visit Diagnoses Diagnosis Pain of both breasts- Primary Breast pain, left Mastodynia documented in this encounter Care Teams Assistance Coordinator Relationship Specialty Start Date End Date Tamia Brooks MD [address] [facility] [address] [place] [address] PCP - General Internal Medicine 07/26/16 Yohan Barros DPM [address] [place] [address] [place] [id number] Podiatry 05/24/13 documented as of this encounter
--- OUTSIDE RECORDS SUMMARY | 2024-03-22 20:12 | XMS_ITS | Encounter Summary ---
Author Organization [facility] Address [address] [facility] [place] [address] Care Team Providers Care Stretch Box Tender Name Role Phone Yohan Barros DPM Unavailable [phone] Lemuel Hoang MD Primary Care Provider Unavailab le Reason for Visit * Reason Onset Date Comments Procedure Prior Auth Request 01/15/2016 Encounter Details Date Type Department Care Team (Late st Contact Info) Description 01/15/2016 Telephone [facility] Medical [facility] - Internal Medicine [address] [facility] [place] [address] [place] [address] Lemuel Hoang MD RETIRED Procedure Prior Auth Request Social History Tobacco Use Types Packs/Day [...] encounter Miscellaneous Notes * Telephone Encounter - Diamond Schmid - 01/15/2016 11:51 AM CST According to the insurance on file, prior authorization is not required for either Medicare or [employer]. Notified pt. S REPRESENTATIVE GAS SERVICE * Telephone Encounter - Lizbeth Vasquez RN - 01/15/2016 10:46 AM SALES REPRESENTATIVE GAS SERVICE Requesting PA for MRI L spine WO contrast to be done on Friday at [facility]. S REPRESENTATIVE GAS SERVICE documented in this encounter Plan of Treatment Upcoming Encounters Date Type Department Care Team (Late st Contact Info) Description 06/29/2024 10:00 AM CDT Office Visit [facility] - Internal Medicine [address] [facility] [address] [place] [address] Tamia Brooks MD [address] [place] [address] documented as of this encounter Goals Goal Patient Goal Type Associated Problems Recent Progress Patient-Stated? Author Blood Pressure < 140/90 Blood Pressure 130/70( 024 1:19 PM CDT) No Lola Neff MA documented as of this encounter Visit Diagnoses Not on filedocumented in this encounter Care Teams Stretch Box Tender Relationship Specialty Start Date End Date Lemuel Hoang MD [address] [place] [address] PCP - General Family Medicine 05/06/14 07/25/16 Yohan Barros DPM [address] [place] [phone] Podiatry 05/24/13 documented as of this encounter
--- OUTSIDE RECORDS SUMMARY | 2024-03-22 20:12 | XMS_ITS | Encounter Summary ---
Author Organization [facility] Address [address] [facility] [place] [place] [address] Care Team Providers Care Incident Response Consultant Name Role Phone Yohan Barros DPM Unavailable [phone] Tamia Brooks MD Primary Care Provider [phone] Reason for Visit * Auth/Cert Specialty Diagnoses / Procedures Referred By Valeria ramesh Referred To Contact Diagnoses Gastroesophageal reflux disease, esophagitis presence not specified Gastroesophageal reflux disease, esophagitis presence not specified Procedures ESOPHAGOGASTRODUODENOSCOPY (EGD) Referral ID Status Reason Start Date Expiration Date Visits Re quested Visits Authorized [id number] 1 1 Encounter Details Date Type Department Care Team (Latest Contact Info) Description 10/04/2016 10:34 AM CDT - 10/04/2016 1:29 PM CDT Hospital Encounter [facility] [place] - Endoscopy Services [address] [place] [address] James Calix MD [address] [place] [address] Surgery General Discharge Disposition: Home or Self Care Social [...] sprayIndications:Allergi c rhinitis, unspecified allergic rhinitis type Whitney 1 Whitney into each nostril once daily 07/10/2015 03/18/2017 [...] fluticasone propionate (FLONASE) 50 MCG/ACT nasal spray Whitney 1 Whitney into each nostril once daily Current Facility-Administered [...] Anesthesia Transfer of Care - Ankit Montano APRN-ONCOLOGY RADIATION PHYSICIAN - 10/04/2016 12:28 PM CDT ANESTHESIA TRANSFER [...] [facility] - Internal Medicine [address] [facility] [address] [place] [address] Tamia Brooks MD [address] [place] [address] [place] [address] documented as of this encounter Goals [...] Initial Negative Negative 10/05/2016 5:11 PM CDT [facility] Helicobacter pylori Urease Final Negative Negative 10/05/2016 5:11 PM CDT [facility] Microbiology GASTRIC ANTRAL BIOPSY SPECIMEN / Unknown Collection / Unknown 10/04/2016 12:23 PM CDT 10/04/2016 3:06 PM CDT James Calix MD LAB - MICROBIOLOGY O RDERABLES Performing Organization Address [facility]/State/ZIP Co de Phone Number [facility] [address] [place] [address] * EGD (10/04/2016 11:57 AM [...] Procedure Code(s): ? --- Professional --- ? 48251, Esophagogastroduo denoscopy, flexible, transoral; with biopsy, ? single or multiple ? --- Technical --- ? 29199, Esophagogastroduo denoscopy, flexible, transoral; with biopsy, ? single or multiple Diagnosis Code(s): ? --- Professional --- ? K44.9, Diaphragmatic hernia without obstruction or gangrene ? K29.70, Gastritis, unspecified, without bleeding ? --- Technical --- ? K44.9, Diaphragmatic hernia without obstruction or gangrene ? K29.70, Gastritis, unspecified, without bleeding CPT copyright 2015 [employer]. All rights reserved. The codes documented in this report are preliminary and upon wharf laborer review may be revised to meet current compliance requirements. James Calix MD 10/04/2016 12:32:07 PM This report has been signed electronically. Number of Addenda: 0 Note Initiated On: 10/04/2016 11:57 AM [facility] 10/04/2016 11:5 7 AM CDT James Calix MD GI PROCEDURE ORDERAB LES [facility] documented in this encounter Visit Diagnoses [...] CONTINUOUS, Starting on Fri10/04/16 at 1215, Until 10/04/16 at 1430, Pre-procedure (GI) 1217 ($ New Bag/Syri nge - Provider: Charisma Varghese RN)1226 (Anesthesia Volume Adjustment - Provider: Ankit Montano APRN-ONCOLOGY RADIATION PHYSICIAN) documented in this encounter Care Teams Incident Response Consultant Relationship Specialty Start Date End Date Tamia Brooks MD [address] [place] [phone] PCP - General Internal Medicine 07/26/16 Yohan Barros DPM [address] [place] [address] [address] Podiatry 05/24/13 documented as of this encounter
--- OUTSIDE RECORDS SUMMARY | 2024-03-22 20:12 | XMS_ITS | Encounter Summary ---
Author Organization [facility] Address [address] [facility] [place] [address] Care Team Providers Care Senior Hardware Design Engineer Name Role Phone Yohan Barros DPM Unavailable [phone] Tamia Brooks MD Primary Care Provider [phone] Reason for Visit * Reason Comments Refill Request Encounter Details Date Type Department Care Team (Late Contact Info) Description 01/27/2017 Refill [facility] - Internal Medicine [address] [facility] [place] [address] [place] [address] Wes Sanchez III, MD RETIRED Refill Request Social History Tobacco [...] * Telephone Encounter - Cassy Mendez - 01/27/2017 10:46 AM CST Last OV: Visit date not found Next OV: Visit date not found NESS OBJECTS DEVELOPER documented in this encounter Plan of Treatment Upcoming Encounters Date Type Department Care Team (Late Contact Info) Description 06/29/2024 10:00 AM CDT Office Visit [facility] Medical [facility] - Internal Medicine [address] [facility] [address] [place] [address] [place] [address] [place] [address] documented as of this encounter Goals Goal Patient Goal Type Associated Problems Recent Progress Patient-Stated? Author Blood Pressure < 140/90 Blood Pressure 130/70( 024 1:19 PM CDT) Lola Serna MA documented as of this encounter Visit Diagnoses Not on filedocumented in this encounter Care Teams Senior Hardware Design Engineer Relationship Specialty Start Date End Date Tamia Brooks MD [facility] [address] PCP - General Internal Medicine 07/26/16 Yohan Barros DPM [facility] [place] [address] [place] [address] Podiatry 05/24/13 documented as of this encounter
--- OUTSIDE RECORDS SUMMARY | 2024-03-22 20:12 | XMS_ITS | Encounter Summary ---
Author Organization [facility] Address [address] [place] [address] Care Team Providers Care Dyeing Machine Feeder Name Role Phone Yohan Barros Madyson DPM Unavailable [phone] Tamia Brooks MD Primary Care Provider [phone] Reason for Referral * Sleep (Routine) - Closed Specialty Diagnoses / Procedures Referred By Valeria ramesh Referred To Contact Diagnoses DAILY (obstructive sleep apnea) Procedures POLYSOMNOGRAM WITH CPAP IF INDICATED Ramon Parker MD [address] [facility] [address] [place] [address] [facility] [address] [place] [address] [place] [address] Referral ID Status Reason Start Date Expiration Date Visits Re quested Visits Authorized [id number] Closed 11/22/2016 05/21/2017 1 1 Reason for Visit * Sleep (Routine) - Closed Specialty Diagnoses / Procedures Referred By Valeria ramesh Referred To Contact Diagnoses DAILY (obstructive sleep apnea) Procedures POLYSOMNOGRAM WITH CPAP IF INDICATED Ramon Parker MD [address] [place] [address] [facility] [address] [place] [address] Referral ID Status Reason Start Date Expiration Date Visits Re quested Visits Authorized [id number] Closed 11/22/2016 05/21/2017 1 1 Encounter Details Date Type Department Care Team (Latest Contact Info) Description 01/05/2017 7:47 PM CDT - 01/05/2017 11:59 PM CDT Hospital Encounter [facility] [address] [facility] [address] [place] [address] Ramon Parker MD [address] [facility] [address] [place] [address] Discharge Disposition: Home or Self Care Social [...] kidney disease) stage 3, GFR 30-59 ml/min ([facility]) Take 1 Tab by mouth 3 times daily as needed for Muscle Spasms 30 Tab 09/16/2016 05/13/2017 Dextromethorphan-Guaifen esin (MUCINEX DM MAXIMUM STRENGTH PO) Take by mouth as needed 08/20/2022 fluticasone propionate (FLONASE) 50 MCG/ACT nasal sprayIndications:Allergi c rhinitis, unspecified allergic rhinitis type [place] 1 [place] into each nostril once daily 07/10/2015 03/18/2017 [...] 09/16/2016 02/24/2017 documented as of this encounter Procedure Notes * Ramon Parker MD - 01/05/2017 11:59 PM CDTAssociated Order(s): POLYSOMNOGRAM WITH CPAP IF INDICATED Procedure(s): POLYSOMNOGRAPHY Pre-Procedure Diagnose(s): Snoring Post-Procedure Diagnose(s): DAILY (obstructive sleep apnea) Polysomnogram sleep study. 66 year-old who reports snoring and excessive daytime sleepiness suspicious of sleep apnea was referred for a polysomnogram. The [place] Sleepiness Scale at the night of the [...] sleep, 6.9 % in stage REM sleep. Stage N1 sleep was increased and that reflect multiple arousals. Stage N2 sleep was normal. Stage N3 sleep and REM sleep were both decreased. Sleep was fragmented by repetitive arousals due to respiratory events, periodic limb movements as well as idiopathic arousals. Respiratory monitoring. Respiratory monitoring showed few apneas and hypopneas. Moderate snoring was observed. Using the 4 % deaturation rule, AHI was 5.1. Pulse oximetry mich was 86 % Periodic limb movements. Periodic limb movements were seen and they did cause sleep fragmentation. The PLM index was 33.6. PLM arousal index 6.2 EKG. EKG demonstrated normal sinus rhythm throughout the study. No ST or T-wave abnormalities were seen. EEG. With the montage recorded, no EEG abnormalities were observed. 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 Periodic limb movements were seen. Recommendations 1. The patient does have mild obstructive sleep apnea/hypopnea syndrome. She will need to be evaluated with CPAP titration. Alternatively other treatment for mild sleep apnea [...] for restless leg syndrome. Ramon Parker MD, [facility]. Be advised that voice recognition software was used in the production of this record. Errors in interpretation may have been inadvertently missed during review. MP PEELER documented in this encounter Plan of Treatment Upcoming Encounters Date Type Department Care Team (Late st Contact Info) Description 06/29/2024 10:00 AM CDT Office Visit [facility] - Internal Medicine [address] [facility] [address] [place] [phone] Tamia Brooks MD [address] [place] [address] [place] [phone] documented as of this encounter Goals Goal Patient Goal Type Associated Problems Recent Progress Patient-Stated? Author Blood Pressure < 140/90 Blood Pressure 130/70( 024 1:19 PM CDT) No Lola Neff MA documented as of this encounter Procedures Procedure Name Priority Date/Time Associated Diagnosis Comments POLYSOMNOGRAPHY 4 OR MORE PARAMETERS WITH CPAP Routine 01/20/2017 9:44 AM SHRIMP PEELER DAILY (obstructive sleep apnea) documented in this encounter Results * POLYSOMNOGRAM WITH CPAP IF INDICATED (01/20/2017 9:44 AM SHRIMP PEELER) Narrative Ramon Parker MD - 01/20/2017 9:44 AM SHRIMP PEELER Ramon Parker MD ? 01/20/2017 ??9:44 AM Polysomnogram sleep study. 66 year-old who reports snoring and excessive daytime sleepiness suspicious of sleep apnea was referred for a polysomnogram. The Ennis Sleepiness Scale at the night of the [...] for restless leg syndrome. Ramon Parker MD, [facility]. Be advised that voice recognition software was used in the production of this record. ??Errors in interpretation may have been inadvertently missed during review. Ramon Parker MD [facility] documented in this encounter Visit Diagnoses Diagnosis DAILY (obstructive sleep apnea) Obstructive sleep apnea (adult) (pediatric) documented in this encounter Care Teams Dyeing Machine Feeder Relationship Specialty Start Date End Date Tamia Brooks MD [address] [facility] [address] [place] [phone] PCP - General Internal Medicine 07/26/16 Yohan Barros DPM [address] [facility] [address] [place] [phone] Podiatry 05/24/13 documented as of this encounter
--- OUTSIDE RECORDS SUMMARY | 2024-03-22 20:12 | XMS_ITS | Encounter Summary ---
Author Organization [facility] Address [address] [place] [address] Care Team Providers Care Church Worker Name Role Phone Yohan Barros DPM Unavailable [phone] Tamia Brooks MD Primary Care Provider [phone] Reason for Visit * Reason Onset Date Comments MEDICATION REFILL 10/11/2016 Encounter Details Date Type Department Care Team (Late Contact Info) Description 10/11/2016 Refill [facility] - Internal Medicine [address] [facility] [address] Lemuel Hoang MD RETIRED MEDICATION REFILL Social [...] encounter Miscellaneous Notes * Telephone Encounter - Sunita Valenzuela MA - 10/14/2016 8:25 AM CDT Lf on 02-02-2016 has appt on documented in this encounter Plan of Treatment Upcoming Encounters Date Type Department Care Team (Late Contact Info) Description 06/29/2024 10:00 AM CDT Office Visit [facility] - Internal Medicine [address] [facility] [address] [place] [address] Tamia Brooks MD [address] [phone] documented as of this encounter Goals Goal Patient Goal Type Associated Problems Recent Progress Patient-Stated? Author Blood Pressure < 140/90 Blood Pressure 130/70( 024 1:19 PM CDT) Lola Serna MA documented as of this encounter Visit Diagnoses Not on filedocumented in this encounter Care Teams Church Worker Relationship Specialty Start Date End Date Tamia Brooks MD [facility] [facility] [address] [place] [address] PCP - General Internal Medicine 07/26/16 Yohan Barros DPM [address] [place] [address] [place] [phone] Podiatry 05/24/13 documented as of this encounter
--- OUTSIDE RECORDS SUMMARY | 2024-03-22 20:12 | XMS_ITS | Encounter Summary ---
Author Organization [facility] Address [address] [place] [address] Care Team Providers Care Tool And Die Maker Level Five Name Role Phone Yohan Barros DPM Unavailable [phone] Lemuel Hoang MD Primary Care Provider Unavailab le Reason for Visit * Reason Comments Follow-up Lower Extremity Problem Calf. Had a Bake r's Cyst about 6 weeks ago. Encounter Details Date Type Department Care Team (Latest Contact Info) Description 12/29/2015 1:20 PM CDT Office Visit [facility] - Internal Medicine [address] [facility] [address] [place] [address] Lemuel Hoang MD RETIRED Hypertension, benign essential (Primary Dx); CKD (chronic kidney disease) stage 3, GFR 30-59 ml/min (HCC); Hyperlipidemia, unspecified hyperlipidemia type; Allergic rhinitis, unspecified allergic rhinitis trigger, unspecified rhinitis seasonality; Gastroesophageal reflux disease without esophagitis; Chronic right-sided low back pain without sciatica; Iliotibial band tendonitis, right; Need for influenza vaccination Social History Tobacco Use Types Packs/Day Years Used Date Smoking Tobacco: Former Cigarettes Q uit: 03/10/1990 Smokeless Tobacco: Never Tobacco Cessation:Counseling Given: No Alcohol Use Standard Drinks/Week Comments Yes 0 (1 standard drink = 0.6 oz pur e alcohol) occ Sex and Gender Information Value Date Recorded Sex Assigned at Not on file Gender Identity Female 11/22/2016 11:14 AM CDT Sexual Orientation Not on file documented as of this encounter Last Filed Vital Signs Vital Sign Reading Time Taken Comments Blood Pressure 112/72 12/29/2015 1:30 PM CDT Pulse 73 12/29/2015 1:30 PM CDT Temperature - - Respiratory Rate - - Oxygen Saturation 98% 12/29/2015 1:30 PM CDT Inhaled Oxygen Concentration - - Weight 79.6 kg (175 lb 6.4 oz) 12/29/2015 1:30 P M CDT Height 162.6 cm (5' 4 ) 12/29/2015 1:30 PM CDT Body Mass Index 30.11 12/29/2015 1:30 PM CDT documented in this encounter Progress Notes * Lemuel Hoang MD - 12/29/2015 1:20 PM CDT Encounter Date: 12/29/2015 ASSESSMENT/PLAN: 1. Hypertension, benign essential 2. CKD (chronic kidney disease) stage 3, GFR 30-59 ml/min BP Readings from Last 3 Encounters: 12/29/15 112/72 09/05/15 122/72 07/10/15 108/68 - controlled - continue amlodipine 5 mg once daily and lisinopril 20 mg once daily 3. Hyperlipidemia, unspecified hyperlipidemia type Recent Labs Component Name 10/04/15 0732 07/13/14 0847 CHOL 279* 154 TRIG 121 78 HDL 58 58 LDLCALC 197* 80 - was elevated after stopping statin, now back on atorvastatin - continue atorvastatin 40 mg once daily 4. Allergic rhinitis, unspecified allergic rhinitis type - controlled - fluticasone propionate (FLONASE) 50 MCG/ACT nasal spray; [place] 1 [place] into each nostril once daily 5. Gastroesophageal reflux disease without esophagitis - continue omeprazole 40 mg once daily 6. Chronic right-sided low back pain without sciatica 7. Iliotibial band tendonitis, right - new problem. Will check x-ray to look for degenerative changes - diclofenac 50 mg twice vaughn until pain resolves - XR LUMBAR SPINE 2 OR 3 VW; Future - will refer to PT if not improving in 2-4 weeks 8. Need for influenza vaccination - FLU VACCINE PRSV FREE INC ANTIGEN HIGH-DOSE - PCHG IMMUNIZATION ADMINISTRATION ONE VACCINE No Follow-up on file. HPI: Maura Watkins is a 65 y.o. female who presents for routine management of chronic conditions: hypertension, stage 3 CKD, hyperlipidemia, allergic rhinitis, and GERD. She reports pain in her right lower back and along the lateral edge of her right thigh. No numbness, tingling or muscular weakness. No overuse or known injury. Onset over past 2 weeks, worse in past week. Review of Systems Constitutional: Negative for chills, diaphoresis, fever and malaise/fatigue. Eyes: Negative for blurred vision and double vision. Respiratory: Negative. Negative for cough and shortness of breath. Cardiovascular: Negative. Negative for chest pain, palpitations and orthopnea. Gastrointestinal: Negative for abdominal pain, blood in stool, constipation, diarrhea, heartburn, melena, nausea and vomiting. Genitourinary: Negative. Musculoskeletal: Positive for back pain. Negative for myalgias and neck pain. Neurological: Negative for dizziness, tingling, tremors, sensory change, speech change, focal weakness, weakness and headaches. Psychiatric/Behavioral: Negative for depression. The patient is not nervous/anxious. PSFHx: Problem List, Medication List, History, and Allergies reviewed and updated. Patient Active Problem List Diagnosis ??? Allergic rhinitis ??? Hypertension, benign essential ??? Hyperlipidemia ??? Anhydrotic dermatitis of foot 04/27/12 ??? Physical exam, annual ??? Primary osteoarthritis of both knees ??? Prediabetes ??? Situational mixed anxiety and depressive disorder ??? CKD (chronic kidney disease) stage 3, GFR 30-59 ml/min ??? Chronic insomnia Current Outpatient Prescriptions on File Prior to Visit Medication Sig Dispense Refill ??? omeprazole (PRILOSEC) 40 MG capsule Take 1 Cap by mouth daily before breakfast 90 Cap 1 ??? amLODIPine (NORVASC) 5 MG tablet TAKE 1 TABLET DAILY 90 Tab 1 ??? atorvastatin (LIPITOR) 40 MG tablet TAKE 1 TABLET AT BEDTIME 90 Tab 1 ??? lisinopril (PRINIVIL; ZESTRIL) 20 MG tablet TAKE 1 TABLET DAILY 90 Tab 1 ??? fluocinonide (LIDEX) 0.05 % ointment Apply to affected area 2 times daily as needed (for flare up of rash on feet) 30 g 0 ??? diclofenac sodium EC (VOLTAREN) 50 MG tablet Take 1 Tab by mouth 2 times daily as needed with food Reasons: Back and Joint Pain 60 Tab 2 ??? fluticasone propionate (FLONASE) 50 MCG/ACT nasal spray [place] 1 [place] into each nostril once daily ??? Multiple Vitamins-Minerals (CENTRUM SILVER ULTRA WOMENS) TABS Take 1 Tab by mouth once daily. No current facility-administered medications on file prior to visit. OBJECTIVE: BP 112/72 (BP SITE: LEFT ARM, BP POSITION: SITTING, BP CUFF SIZE: Large Adult) Pulse 73 Wt 79.6 kg (175 lb 6.4 oz) BMI 30.11 kg/m2 Physical Exam Constitutional: She is oriented to person, place, and time. She appears well-developed. Eyes: Conjunctivae are normal. No scleral icterus. Neck: No JVD present. Carotid bruit is not present. No thyromegaly present. Cardiovascular: Normal rate, regular rhythm, normal heart sounds and intact distal pulses. Exam reveals no gallop. No murmur heard. Pulmonary/Chest: Effort normal and breath sounds normal. Abdominal: Soft. Bowel sounds are normal. She exhibits no distension and no mass. There is no tenderness. Musculoskeletal: Lumbar back: She exhibits normal range of motion, no tenderness and no deformity. Mild tenderness over lateral aspect of right thigh along lateral band. Lymphadenopathy: She has no cervical adenopathy. Neurological: She is alert and oriented to person, place, and time. She has normal strength and normal reflexes. No cranial nerve deficit or sensory deficit. Psychiatric: She has a normal mood and affect. Her behavior is normal. Thought content normal. Vitals reviewed. Lemuel Hoang MD documented in this encounter Plan of Treatment Upcoming Encounters Date Type Department Care Team (Late st Contact Info) Description 06/29/2024 10:00 AM CDT Office Visit [facility] - Internal Medicine [address] [facility] [address] [place] [phone] Tamia Brooks MD [address] [place] [phone] documented as of this encounter Goals Goal Patient Goal Type Associated Problems Recent Progress Patient-Stated? Author Blood Pressure < 140/90 Blood Pressure 130/70( 024 1:19 PM CDT) No Lola Nfef MA documented as of this encounter Results * XR LUMBAR SPINE 2 OR 3 VW (01/03/2016) Anatomical Region Laterality Modality Spine Other Lemuel Hoang MD DIAGNOSTIC IMAGING O RDERABLES documented in this encounter Visit Diagnoses Diagnosis Hypertension, benign essential- Primary Essential hypertension, benign CKD (chronic kidney disease) stage 3, GFR 30-59 ml/min (HCC) Chronic kidney disease, Stage III (moderate) Hyperlipidemia, unspecified hyperlipidemia type Allergic rhinitis, unspecified allergic rhinitis trigger, unspecified rhinitis seasonality Gastroesophageal reflux disease without esophagitis Esophageal reflux Chronic right-sided low back pain without sciatica Iliotibial band tendonitis, right Need for influenza vaccination Need for prophylactic vaccination and inoculation against influenza documented in this encounter Care Teams Tool And Die Maker Level Five Relationship Specialty Start Date End Date Lemuel Hoang MD [address] [place] [phone] PCP - General Family Medicine 05/06/14 07/25/16 Yohan Barros DPM [address] [place] [phone] Podiatry 05/24/13 documented as of this encounter
--- OUTSIDE RECORDS SUMMARY | 2024-03-22 20:12 | XMS_ITS | Encounter Summary ---
Author Organization [facility] Address [address] [facility] [place] [address] Care Team Providers Care Director Adult Name Role Phone Yohan Barros DPM Unavailable [phone] Tamia Brooks MD Primary Care Provider Reason for Visit * Reason Onset Date Comments Skin Lesion 03/20/2017 Encounter Details Date Type Department Care Team (Late st Contact Info) Description 03/20/2017 Telephone [facility] - Internal Medicine [address] [facility] [address] [place] [phone] Tamia Brooks MD [address] [place] [address] [place] [phone] Skin Lesion Social History Tobacco Use Types Packs/Day Years [...] Telephone Encounter - Tamia Brooks MD - 03/20/2017 2:07 PM CST Briefly viewed rash. Patient has bilateral lower extremity edema right greater than left. Area on the right she can which is erythematous patch with excoriation approximately 5 x 5 cm. It is warm andtender to touch. The left lower extremity also has areas of xerosis and mild excoriation as well. I suspect patient may have developed some venous stasis dermatitis with secondary infection on the right lower extremity as well as dry skin dermatitis. Will give Keflex for cellulitis and start triamcinolone ointment to dermatitis b.i.d. times 14 days. It if no improvement in rash after 7-10 days strongly recommend patient follow up with her power wood sawyer. Dry skin care also reviewed. Patient advised to get ointment moisturizer NCIAL FOUNDATIONS REPRESENTATIVE * Telephone Encounter - Myriam Plaza RN - 03/20/2017 1:38 PM CST Pt here with spouse for his appt. Wanted rash to R leg looked at. Pt has area of raised red, rash with some scabbed spots where she has scratched . The lower leg and ankle swollen, Skin is hot to touch an per pt itching. Dr called to look at pt's leg. Transferring to Dr for orders. NCIAL FOUNDATIONS REPRESENTATIVE documented in this encounter Plan of Treatment Upcoming Encounters Date Type Department Care Team (Late st Contact Info) Description 06/29/2024 10:00 AM CDT Office Visit [facility] - Internal Medicine [address] [place] [address] [place] [phone] Tamia Brooks MD [address] [place] [phone] documented as of this encounter Goals Goal Patient Goal Type Associated Problems Recent Progress Patient-Stated? Author Blood Pressure < 140/90 Blood Pressure 130/70( 024 1:19 PM CDT) Lola Serna MA documented as of this encounter Visit Diagnoses Diagnosis Dermatitis- Primary Contact dermatitis and other eczema, due to unspecified cause Cellulitis of right lower extremity Cellulitis and abscess of leg, except foot documented in this encounter Care Teams Director Adult Relationship Specialty Start Date End Date Tamia Brooks MD [address] [place] [phone] PCP - General Internal Medicine 07/26/16 Yohan Barros DPM [address] [place] [phone] Podiatry 05/24/13 documented as of this encounter
--- OUTSIDE RECORDS SUMMARY | 2024-03-22 20:12 | XMS_ITS | Encounter Summary ---
Author Organization [facility] Address [address] [facility] [place] [address] Care Team Providers Care Emergency Spill Response Technician Name Role Phone Yohan Barros DPM Unavailable [phone] Tamia Brooks MD Primary Care Provider Reason for Referral * Cardiac (Routine) - Closed Specialty Diagnoses / Procedures Referred By Valeria t Referred To Contact Diagnoses Leg swelling Procedures ECHOCARDIOGRAM 2D WITH DOPPLER Tamia Brooks MD [address] [place] [address] [place] [phone] [address] Referral ID Status Reason Start Date Expiration Date Visits Re quested Visits Authorized [id number] Closed 05/13/2017 11/09/2017 1 1 Reason for Visit * Cardiac (Routine) - Closed Specialty Diagnoses / Procedures Referred By Contac t Referred To Contact Diagnoses Leg swelling Procedures ECHOCARDIOGRAM 2D WITH DOPPLER Tamia Brooks MD [address] [place] [address] [place] [phone], [address] [address] Referral ID Status Reason Start Date Expiration Date Visits Re quested Visits Authorized [id number] Closed 05/13/2017 11/09/2017 1 1 Encounter Details Date Type Department Care Team (Latest Contact Info) Description 05/23/2017 7:57 AM CDT - 05/23/2017 11:59 PM CDT Hospital Encounter [facility] [address] [facility], [address] [place] [address] Fox Briones MD [address] [place] [address] [address] [place] [address] Discharge Disposition: Home or Self Care Social [...] daily glucosamine-chondroitin (GLUCOSAMINE CHONDR COMPLEX) 500-400 MG capsuleIndications:Predi abetes,Primary osteoarthritis of right hip Take 1 capsule by mouth once daily 30 capsule 5 05/13/2017 amLODIPine (NORVASC) 5 MG tablet Take 1 tablet by mouth once daily 90 tablet 1 02/11/2017 08/28/2017 atorvastatin (LIPITOR) 40 MG tablet Take 1 Tab by mouth at bedtime 90 Tab 1 10/14/2016 09/12/2017 clotrimazole-betamethaso ne (LOTRISONE) 1-0.05 % cream Apply to affected area 2 times daily 45 g 2017 08/28/2017 Dextromethorphan-Guaifen esin (MUCINEX DM MAXIMUM STRENGTH PO) Take by mouth as needed 08/20/2022 furosemide (LASIX) 20 MG tabletIndications:Leg swelling,Venous stasis dermatitis of both lower extremities,CKD (chronic kidney disease) stage 3, GFR 30-59 ml/min ([facility]) Take 1 tablet by mouth once daily 30 tablet 5 05/13/2017 06/03/2017 lisinopril (PRINIVIL; ZESTRIL) 20 MG tablet Take 1 tablet by mouth once daily 90 tablet 1 02/11/2017 09/11/2017 Multiple Vitamins-Minerals (CENTRUM SILVER ULTRA WOMENS) TABS Take 1 Tab by mouth once daily. 08/30/2020 omeprazole (PRILOSEC) 40 MG capsuleIndications:Gastr oesophageal reflux disease without esophagitis Take 1 capsule by mouth 2 times daily,before breakfast and supper 90 capsule 1 02/24/2017 08/28/2017 triamcinolone acetonide (KENALOG) 0.1 % ointmentIndications:Derm atitis Apply to affected area 2 times daily 80 g 03/20/2017 08/28/2017 documented as of this encounter Plan of Treatment Upcoming Encounters Date Type Department Care Team (Late st Contact Info) Description 06/29/2024 10:00 AM CDT Office Visit [facility] - Internal Medicine [address] [facility] [address] [place] [address] [place] [address] [place] [address] [address] [place] [address] documented as of this encounter Goals Goal Patient Goal Type Associated Problems Recent Progress Patient-Stated? Author Blood Pressure < 140/90 Blood Pressure 130/70( 024 1:19 PM CDT) Lola Serna MA documented as of this encounter Procedures Procedure Name Priority Date/Time Associated Diagnosis Comments ECHOCARDIOGRAM 2D WITH DOPPLER Routine 05/23/2017 8:21 AM CDT Leg swelling documented in this encounter Results * ECHOCARDIOGRAM 2D WITH DOPPLER (05/23/2017 8:21 AM CDT) 05/23/2017 8:21 AM CDT Narrative [facility] CARDI[facility] - 05/23/2017 5:23 PM CDT [facility] [place] [facility] [address] [facility] [address] [place] [address] Transthoracic Echocardiogram 2D, M-mode, Doppler, and Color Doppler Patient: MAURA WATKINS MR number: [id number] Height: 65 in Weight: 186.6 lb BSA: 1.92 m?? Study date: 23-May-2017 : 1950 Age: 67 years Gender: Female Race: Allergies: DARVON Filter Press Supervisor: ??Faiza Mcgrath RD, RVT Referring Physician: ??Tamia Brooks MD Reading [...] Procedure: The study was performed in the [facility]. The transthoracic approach was used. The study [...] Procedure Note Madhu Richards MD - 05/23/2017 [facility] [place] [facility] [place] [address] [facility] [address] [place] [address] Transthoracic Echocardiogram 2D, M-mode, Doppler, and Color Doppler Patient: MAURA WATKINS MR number: [id number] Height: 65 in Weight: 186.6 lb BSA: 1.92 m?? Study date: 23-May-2017 : 1950 Age: 67 years Gender: Female Race: Allergies: DARVON Filter Press Supervisor: Faiza Mcgrath RDCS, RVT Referring Physician: Tamia [...] Procedure: The study was performed in the [facility]. The transthoracic approach was used. The study [...] 23-May-2017 17:23:08 Tamia Brooks MD ECHO ORDERABLES [facility] [address] [place] [address] documented in this encounter Visit Diagnoses Diagnosis Leg swelling Swelling of limb documented in this encounter Administered Medications Inactive Administered Medications - up to 3 most recent administrations Medication Order MAR Action Action Date Dose Rate Site perflutren Lipid Microsphere (DEFINITY) injection SUSP 1.5 mL 1.5 mL, Intravenous, INTRA-PROCEDURE ONCE, 1 dose, On Fri05/23/17 at 0932, Shake well before using. $ Given 05/23/2017 9:32 AM CDT 0.6 mL Left Hand documented in this encounter Care Teams Emergency Spill Response Technician Relationship Specialty Start Date End Date Tamia Brooks MD [address] [facility] [address] [place] [address] PCP - General Internal Medicine 07/26/16 Yohan Barros DPM [address] [phone] Podiatry 05/24/13 documented as of this encounter
--- OUTSIDE RECORDS SUMMARY | 2024-03-22 20:12 | XMS_ITS | Encounter Summary ---
Author Organization [facility] Address [address] [facility] [place] [address] Care Team Providers Care Microcomputer Technician Name Role Phone Yohan Barros DPM Unavailable Tamia Brooks MD Primary Care Provider Reason for Visit * Reason Onset Date Comments Medication Issue 02/19/2018 Encounter Details Date Type Department Care Team (Late st Contact Info) Description 02/19/2018 Telephone [facility] - Internal Medicine [address] [facility] [address] [place] [address] Tamia Brooks MD [address] [place] [address] [address] [place] [address] Medication Issue Social History Tobacco Use [...] Telephone Encounter - Tamia Brooks MD - 02/19/2018 1:12 PM CST Sent to [facility]. SS ENGINEER * Telephone Encounter - Myriam Plaza RN - 02/19/2018 10:24 AM CST Patient seen yesterday given script for Topamax , sent to [facility]. Patient requesting 30 day supply to area pharmacy. SS ENGINEER documented in this encounter Plan of Treatment Upcoming Encounters Date Type Department Care Team (Late st Contact Info) Description 06/29/2024 10:00 AM CDT Office Visit [facility] - Internal Medicine [address] [place] [address] [place] [address] Tamia Brooks MD [address] [place] [phone] documented as of this encounter Goals Goal Patient Goal Type Associated Problems Recent Progress Patient-Stated? Author Blood Pressure < 140/90 Blood Pressure 130/70( 024 1:19 PM CDT) Lola Serna MA documented as of this encounter Visit Diagnoses Diagnosis Neuropathic pruritus Other specified pruritic conditions documented in this encounter Care Teams Microcomputer Technician Relationship Specialty Start Date End Date Tamia Brooks MD [address] [place] [phone] PCP - General Internal Medicine 07/26/16 Yohan Barros DPM [address] [place] [address] [place] [phone] Podiatry 05/24/13 documented as of this encounter
--- OUTSIDE RECORDS SUMMARY | 2024-03-22 20:12 | XMS_ITS | Encounter Summary ---
Author Organization [facility] Address [address] [facility] [place] [address] Care Team Providers Care Supervisor Core Drilling Name Role Phone Yohan Braros DPM Unavailable [phone] Tamia Brooks MD Primary Care Provider [phone] Reason for Visit * Reason Onset Date Comments Breast Problem 06/04/2018 Encounter Details Date Type Department Care Team (Late st Contact Info) Description 06/04/2018 Telephone [facility] - Internal Medicine [address] [facility] [address] [place] [address] Tamia Brooks MD [address] [place] [address] [place] [phone] Breast Problem Social History Tobacco Use Types Packs/Day [...] Telephone Encounter - Michelle Long LPN - 06/04/2018 12:45 PM CDT Patient advised. * Telephone Encounter - Tamia Brooks MD - 06/04/2018 12:37 PM CDT Given normal mammo, less likely to be concerning. Keep an eye on it and I can exam at her f/u visit. * Telephone Encounter - Michelle Long LPN - 06/04/2018 12:27 PM CDT Pain in L breast 2-3 weeks ago, sharp, like lightning bolt, started at top on R side, radiated tothe left. Lasted 2-3 seconds. Only happened the one time, has not returned. Yesterday she noticed her L breast is now sagging more than her R. There is no redness, swelling or nipple discharge. She doesn't know if this should be of concern. Has office visit 06/25/18. Had benign L breast diagnostic mammogram 04/29/18. documented in this encounter Plan of Treatment Upcoming Encounters Date Type Department Care Team (Late st Contact Info) Description 06/29/2024 10:00 AM CDT Office Visit [facility] Medical [facility] - Internal Medicine [address] [place] [address] [place] [address] Tamia Brooks MD [address] [place] [address] documented as of this encounter Goals Goal Patient Goal Type Associated Problems Recent Progress Patient-Stated? Author Blood Pressure < 140/90 Blood Pressure 130/70( 024 1:19 PM CDT) No Lola Neff MA documented as of this encounter Visit Diagnoses Not on filedocumented in this encounter Care Teams Supervisor Core Drilling Relationship Specialty Start Date End Date Tamia Brooks MD [address] [place] [phone] PCP - General Internal Medicine 07/26/16 Yohan Barros DPM [address] [place] [address] [place] [phone] Podiatry 05/24/13 documented as of this encounter
--- OUTSIDE RECORDS SUMMARY | 2024-03-22 20:12 | XMS_ITS | Encounter Summary ---
Author Organization [facility] Address [address] [facility] [place] [address] Care Team Providers Care Calibration Technician Name Role Phone Yohan Barros DPM Unavailable [phone] Tmaia Brooks MD Primary Care Provider [phone] Reason for Visit * Reason Onset Date Comments Pain Abdominal 09/18/2017 Encounter Details Date Type Department Care Team (Late st Contact Info) Description 09/18/2017 Telephone [facility] Medical [facility] - Internal Medicine [facility] [address] Zenaida Bertrand Pain Abdominal Social History Tobacco Use Types Packs/Day Years [...] Telephone Encounter - Tamia Brooks MD - 09/18/2017 5:34 PM CDT Contacted pt who reports she had a belly ache X 2 days, radiates to RLQ. No bloody stools. When it first started she was eating broccoli. Did work in the yard for a few hours yesterday. Has not tried anything except for taking TUMs. REports she had a loose stool 2 days ago, then a large BM last night, and then small BM this AM. Denies any relation to food. Pain is mild to moderate at this time.Tolerating po intake w/o issues. She reports her RLQ is TTP but not severe. Can feel something moving in there. No f/c, n/v. Advised pt to increase water intake, heating pad to area, and to try taking pepto bismol. Proceed to UC /ER if severe pain or if she develops, f/c, n/v. Suspect this is most likely gas pain w/ moving description but DDX includes ab wall strain, developing diverticulitis, colitis. If sxs do not improve in 24-48 hrs, recommend CT scan. * Telephone Encounter - Natasha Vazquez LPN - 09/18/2017 3:54 PM CDT Pain initially on R side of mid abdomen x 2 days which then radiated to lower abdomen, some bloating, no N&V, no fever Describes pain as cramping, modified by walking and movement. Sitting pain is 2 on 1-10, walking pain is 5 on 1-10 Advise * Telephone Encounter - Zenaida Bertrand - 09/18/2017 3:18 PM CDT Patient described the pain to be in lower gut wants to know what Dr. Brooks suggest. documented in this encounter Plan of Treatment Upcoming Encounters Date Type Department Care Team (Late st Contact Info) Description 06/29/2024 10:00 AM CDT Office Visit [facility] - Internal Medicine [address] [place] [address] [place] [phone] Tamia Brooks MD [address] [place] [phone] documented as of this encounter Goals Goal Patient Goal Type Associated Problems Recent Progress Patient-Stated? Author Blood Pressure < 140/90 Blood Pressure 130/70( 024 1:19 PM CDT) Lola Serna MA documented as of this encounter Visit Diagnoses Not on filedocumented in this encounter Care Teams Calibration Technician Relationship Specialty Start Date End Date Tamia Brooks MD [address] [facility] [address] [place] [phone] PCP - General Internal Medicine 07/26/16 Yohan Barros DPM [address] [phone] Podiatry 05/24/13 documented as of this encounter
--- OUTSIDE RECORDS SUMMARY | 2024-03-22 20:12 | XMS_ITS | Encounter Summary ---
Author Organization [facility] Address [address] [facility] [place] [address] Care Team Providers Care Business Communications Instructor Name Role Phone Yohan Barros DPM Unavailable [phone] Lemuel Hoang MD Primary Care Provider Unavailab le Reason for Visit * Reason Onset Date Comments MEDICATION REFILL 09/29/2015 Encounter Details Date Type Department Care Team (Late Contact Info) Description 09/29/2015 Refill [facility] - Internal Medicine [address] [facility] [place] [address] Lemuel Hoang MD RETIRED MEDICATION REFILL Social [...] * Telephone Encounter - Cassy Mendez - 09/29/2015 11:24 AM CDT Last ov 09/05/15 Future appt 01/12/16 documented in this encounter Plan of Treatment Upcoming Encounters Date Type Department Care Team (Late st Contact Info) Description 06/29/2024 10:00 AM CDT Office Visit [facility] - Internal Medicine [address] [facility] [address] [place] [address] Tamia Brooks MD [address] [facility] [address] [place] [address] documented as of this encounter Goals Goal Patient Goal Type Associated Problems Recent Progress Patient-Stated? Author Blood Pressure < 140/90 Blood Pressure 130/70( 024 1:19 PM CDT) Lola Serna MA documented as of this encounter Visit Diagnoses Diagnosis Laryngitis, chronic- Primary Chronic laryngitis documented in this encounter Care Teams Business Communications Instructor Relationship Specialty Start Date End Date Lemuel Hoang MD [address] [place] [phone] PCP - General Family Medicine 05/06/14 07/25/16 Yohan Barros DPM [address] [place] [phone] Podiatry 05/24/13 documented as of this encounter
--- OUTSIDE RECORDS SUMMARY | 2024-03-22 20:12 | XMS_ITS | Encounter Summary ---
Author Organization [facility] Address [address] [place] [address] Care Team Providers Care Machine Driller Name Role Phone Yohan Barros DPM Unavailable [phone] Tamia Brooks MD Primary Care Provider Encounter Details Date Type Department Care Team (Late Contact Info) Description 04/13/2018 Orders Only [facility] [address] [place] [address] Unknown, Provider Social History Tobacco Use Types Packs/Day Years [...] Description 06/29/2024 10:00 AM CDT Office Visit [facility] Medical [facility] - Internal Medicine [facility] [facility] [address] [place] [phone] Tamia Brooks MD [address] [place] [phone] documented as of this encounter Goals Goal Patient Goal Type Associated Problems Recent Progress Patient-Stated? Author Blood Pressure < 140/90 Blood Pressure 130/70( 024 1:19 PM CDT) No Lola Neff MA documented as of this encounter Procedures Procedure Name Priority Date/Time Associated Diagnosis Comments LAB RESULTS ORDER Routine 04/12/2018 documented in this encounter Results * LAB RESULTS ORDER (04/12/2018) Provider Unknown LAB - THERAPEUTIC DR LINK MONITORING ORDERABLES documented in this encounter Visit Diagnoses Not on filedocumented in this encounter Care Teams Machine Driller Relationship Specialty Start Date End Date Tamia Brooks MD [address] [facility] [address] [place] [address] PCP - General Internal Medicine 07/26/16 Yohan Barros, TAMMYM [address] [facility] [address] [place] [address] Podiatry 05/24/13 documented as of this encounter
--- OUTSIDE RECORDS SUMMARY | 2024-03-22 20:12 | XMS_ITS | Encounter Summary ---
Author Organization [facility] Address [address] [facility] [place] [address] Care Team Providers Care Flatwork Ironer Name Role Phone Yohan Barros DPM Unavailable [phone] Tamia Brooks MD Primary Care Provider Reason for Referral * Sleep (Routine) - Closed Specialty Diagnoses / Procedures Referred By Contac t Referred To Contact Diagnoses DAILY (obstructive sleep apnea) Procedures POLYSOMNOGRAM WITH CPAP IF INDICATED Ramon Parker MD [address] [place] [address] [facility] Sleep Lab [address] [place] [address] Referral ID Status Reason Start Date Expiration Date Visits Re quested Visits Authorized [id number] Closed 11/22/2016 05/21/2017 1 1 Reason for Visit * Reason Comments Establish Care Patient here to [facility] and for possible DAILY. Encounter Details Date Type Department Care Team (Late st Contact Info) Description 11/22/2016 11:30 AM CDT Office Visit [facility] Medical [facility] - Pulmonology [address] [place] [address] Ramon Parker MD [address] [place] [address] DAILY (obstructive sleep apnea) (Primary Dx); Chronic [...] Sign Reading Time Taken Comments Blood Pressure 128/81 11/22/2016 11:37 AM CDT Pulse 69 11/22/2016 11:37 AM CDT Temperature - - Respiratory Rate - - Oxygen Saturation 98% 11/22/2016 11:37 AM CDT Inhaled Oxygen Concentration - - Weight 79.8 kg (176 lb) 11/22/2016 11:37 AM CDT Height 165.1 cm (5' 5 ) 11/22/2016 11:37 AM CDT Body Mass Index 29.29 11/22/2016 11:37 AM CDT documented in this encounter Progress Notes * Ramon Parker MD - 11/22/2016 11:15 AM CDT PULMONARY/SLEEP CONSULTATION CHIEF COMPLAINT: First visit for snoring suspicious for DAILY HISTORY OF PRESENT ILLNESS: 66-year-old presents today for her 1st clinic appointment. She does have snoring. Loud. Worse [...] as she could not tolerate it. She gained 40 lb in the past 5 years. Her snoring got worse since she gained weight. She works out 5 days a week. She is not currently working. No restless leg syndrome. No periodic limb movement during sleep. Bedtime is 9:00 p.m. She reads for [...] or anxiety. She feels happy overall. She also has postnasal drip. She takes Zyrtec that keeps it under control. She has hypertension that is currently treated. Her records were reviewed. PAST MEDICAL HISTORY: Past Medical History: Diagnosis Date ??? Anhydrotic dermatitis of foot 04/27/12 04/27/2012 ??? Adductor tendonitis, right thigh 04/27/12 04/27/2012 ??? Allergic rhinitis 09/20/2008 ??? Cataract 12/07/2013 ??? Herpes zoster 04/12/2010 ??? Hyperlipidemia 09/20/2008 ??? Hypertension 09/20/2008 ??? Insulin resistance 10/27/2012 ??? Primary osteoarthritis of both knees 10/27/2012 ??? UTI PAST SURGICAL HISTORY: Past Surgical History: Procedure Laterality Date ??? Cataract Removal Bilateral 2013 ??? COLONOSCOPY N/A 11/05/2013 N/A; COLONOSCOPY SCREEN ??? ENDOSCOPY, COLON, SCREENING 06/23/06 ??? ENDOSCOPY, UPPER N/A 10/04/2016 N/A; ESOPHAGOGASTRODUODENOSCOPY (EGD) ??? ENDOSCOPY, UPPER 10/04/2016 gastritis, hiatus hernia-Yogi ??? Hysterectomy MEDICATIONS: Current Outpatient Prescriptions Medication Sig Dispense Refill [...] fluticasone propionate (FLONASE) 50 MCG/ACT nasal spray [place] 1 [place] into each nostril once daily ??? Multiple Vitamins-Minerals (CENTRUM SILVER ULTRA WOMENS) TABS Take 1 Tab by mouth once daily. No current facility-administered medications for this visit. SOCIAL HISTORY: Social History Social History ??? Marital status: [...] Yes ??? Self-Exams Yes Social History Narrative Social History Social History Narrative FAMILY HISTORY: Family History Problem Relation Age of Onset ??? Heart Failure Mother ??? Lung Cancer Father smoker ??? Cancer - Colon Brother 55 2007 ??? Cancer - Breast Maternal Aunt Review of Systems Constitutional: Positive for malaise/fatigue. Negative for chills, diaphoresis and fever. HENT: Negative for hearing loss and sore throat. Eyes: Negative for double vision. Respiratory: Negative for cough, hemoptysis, sputum production, shortness of breath and wheezing. Cardiovascular: Negative for chest pain, palpitations and leg swelling. Musculoskeletal: Positive for back pain. Negative for joint pain. Neurological: Negative for dizziness, seizures and headaches. Endo/Heme/Allergies: Does not bruise/bleed easily. Psychiatric/Behavioral: Negative for depression and memory loss. The patient is not nervous/anxious. PHYSICAL EXAMINATION: Physical Exam Constitutional: She is oriented to person, place, and time. She appears well- developed and well-nourished. No distress. HENT: Head: Normocephalic and atraumatic. Nose: Nose normal. Mouth/Throat: Oropharynx is clear and moist. No oropharyngeal exudate. Class 3 mallampati Neck: Neck supple. No tracheal deviation present. No thyromegaly present. 16 inches neck. Cardiovascular: Normal rate, regular rhythm and normal [...] thought contentnormal. Nursing note and vitals reviewed. BP 128/81 Pulse 69 Wt 79.8 kg (176 lb) SpO2 98% BMI 29.29 kg/m2 FiO2: RA DIAGNOSTIC TESTING: ESS 12/31 Recent Labs Component Name 09/26/16 0802 06/05/15 1330 SODIUM 143 140 POTASSIUM 4.9 4.5 CHLORIDE 101 105 CO2 23 28 BUN 23 23* CREATININE 1.24* 1.10 GLUCOSE 113* 92 CALCIUM 9.6 9.7 ALBUMIN 4.7 - ALKPHOS 131* - ALT 19 - AST 22 - TBIL 0.5 - TPROT 7.0 - EGFR 45* 50* ] ASSESMENT: Encounter Diagnoses Name Primary? DAILY (obstructive sleep apnea) Yes ??? Chronic allergic rhinitis, unspecified seasonality, unspecified trigger RECOMMENDATIONS AND PLAN: 1. Snoring. Excessive daytime sleepiness. Non refreshing sleep. Enlarged size neck. All the above makes her suspicious of having obstructive sleep apnea. She was also diagnosed in the past. She did lose her machine. She is willing to try it again. I will refer her for in laboratory split night polysomnography. I did discuss all the details with her. No driving while sleepy. Weight loss is encouraged. She also has hypertension I discussed with her that treating her sleep apnea tends to get the bloodpressure under better control. 2. Allergic rhinitis. For which she uses Zyrtec and Mucinex DM. Currently keeping her under control. Return to the office in 5 weeks. Thank you for your consultation. Ramon Parker MD, [facility] Be advised that voice recognition software was used in the production of this record. Errors in interpretation may have been inadvertently missed during review. documented in this encounter Plan of Treatment Upcoming Encounters Date Type Department Care Team (Late st Contact Info) Description 06/29/2024 10:00 AM CDT Office Visit [facility] - Internal Medicine [address] [address] Tamia Brooks MD [address] [place] [phone] documented as of this encounter Goals Goal Patient Goal Type Associated Problems Recent Progress Patient-Stated? Author Blood Pressure < 140/90 Blood Pressure 130/70( 024 1:19 PM CDT) No Lola Neff MA documented as of this encounter Results * POLYSOMNOGRAM WITH CPAP IF INDICATED (01/20/2017 9:44 AM SUPERVISOR CALIBRATION) Narrative Ramon Parker MD - 01/20/2017 9:44 AM SUPERVISOR CALIBRATION Ramon Parker MD ? 01/20/2017 ??9:44 AM Polysomnogram sleep study. 66 year-old who reports snoring and excessive daytime sleepiness suspicious of sleep apnea was referred for a polysomnogram. The [place] Sleepiness Scale at the night of the [...] for restless leg syndrome. Ramon Parker MD, [facility] Pulmonary and Sleep Medicine. Be advised that [...] (pediatric) documented in this encounter Care Teams Flatwork Ironer Relationship Specialty Start Date End Date Tamia Brooks MD [address] [facility] [address] [place] [address] PCP - General Internal Medicine 07/26/16 Yohan Barros DPM [address] [facility] [address] [place] [address] Podiatry 05/24/13 documented as of this encounter
--- OUTSIDE RECORDS SUMMARY | 2024-03-22 20:12 | XMS_ITS | Encounter Summary ---
Author Organization [facility] Address [address] [facility] [place] [address] Care Team Providers Care Chief Operating Engineer Name Role Phone Yohan Barros DPM Unavailable [phone] Tamia Brooks MD Primary Care Provider Reason for Visit * Reason Onset Date Comments MEDICATION REFILL 02/11/2017 Encounter Details Date Type Department Care Team (Late st Contact Info) Description 02/11/2017 Refill [facility] Medical [facility] - Internal Medicine [address] [facility] [address] [place] [phone] Tamia Brooks MD [address] [place] [address] [place] [phone] MEDICATION REFILL Social History Tobacco Use [...] * Telephone Encounter - Audelia Dash - 02/11/2017 1:43 PM CST Last appt: 11/22/2016 Next appt: 05/13/2017 Number of cancel or no shows in the last 12 months: 1 Allergies have been reviewed. Correct pharmacy is populated. Please sign RX and close encounter. UP WORKER documented in this encounter Plan of Treatment Upcoming Encounters Date Type Department Care Team (Late st Contact Info) Description 06/29/2024 10:00 AM CDT Office Visit [facility] - Internal Medicine [address] [facility] [address] [place] [address] Tamia Brooks MD [address] [place] [phone] documented as of this encounter Goals Goal Patient Goal Type Associated Problems Recent Progress Patient-Stated? Author Blood Pressure < 140/90 Blood Pressure 130/70( 024 1:19 PM CDT) No Lola Neff MA documented as of this encounter Visit Diagnoses Not on filedocumented in this encounter Care Teams Chief Operating Engineer Relationship Specialty Start Date End Date Tamia Brooks MD [address] [place] [phone] PCP - General Internal Medicine 07/26/16 Yohan Barros DPM [address] [address] [place] [phone] Podiatry 05/24/13 documented as of this encounter
--- OUTSIDE RECORDS SUMMARY | 2024-03-22 20:12 | XMS_ITS | Encounter Summary ---
Author Organization [facility] Address [address] [facility] [place] [address] Care Team Providers Care Seismic Computer Name Role Phone Yohan Barros Madyson DPM Unavailable [phone] Tamia Brooks MD Primary Care Provider [phone] Reason for Referral * Sleep (Routine) - Closed Specialty Diagnoses / Procedures Referred By Valeria ramesh Referred To Contact Sleep Center Diagnoses DAILY (obstructive sleep apnea) Procedures CPAP/BIPAP TITRATION Ramon Parker MD [address] [place] [address] [facility] Sleep Lab [address] [place] [address] [place], [place] [id number] Referral ID Status Reason Start Date Expiration Date Visits Re quested Visits Authorized [id number] Closed 02/12/2017 05/13/2017 1 1 OL LUNCH MONITOR Reason for Visit * Sleep (Routine) - Closed Specialty Diagnoses / Procedures Referred By Valeria ramesh Referred To Contact Sleep Center Diagnoses DAILY (obstructive sleep apnea) Procedures CPAP/BIPAP TITRATION Ramon Parker MD [address] [place] [address] [facility] Sleep Lab [address] [place] [id number] Referral ID Status Reason Start Date Expiration Date Visits Re quested Visits Authorized [id number] Closed 02/12/2017 05/13/2017 1 1 Encounter Details Date Type Department Care Team (Latest Contact Info) Description 02/13/2017 9:00 PM SCHOOL LUNCH MONITOR - 02/13/2017 11:59 PM SCHOOL LUNCH MONITOR Hospital Encounter [facility] [address] [facility] [address] [place] [address] Ramon Parker MD [address] [facility] [address] [place] [phone] Discharge Disposition: Home or Self Care Social [...] 1 10/14/2016 09/12/2017 clobetasol (TEMOVATE) 0.05 % creamIndications:Dermat itis of foot,Atopic dermatitis, unspecified type Apply to affected area 2 times daily Until rash improves but no more than 14 days. 45 g 11/12/2016 05/13/2017 cyclobenzaprine (FLEXERIL) 10 MG tabletIndications:CKD (chronic kidney disease) stage 3, GFR 30-59 ml/min ([facility]) Take 1 Tab by mouth 3 times daily as needed for Muscle Spasms 30 Tab 09/16/2016 05/13/2017 Dextromethorphan-Guaife nesin (MUCINEX DM MAXIMUM STRENGTH PO) Take by mouth as needed 08/20/2022 fluticasone propionate (FLONASE) 50 MCG/ACT nasal sprayIndications:Allerg ic rhinitis, unspecified allergic rhinitis type [place] 1 [place] into each nostril once daily 07/10/2015 03/18/2017 lisinopril (PRINIVIL; ZESTRIL) 20 MG tablet Take 1 tablet by mouth once daily 90 tablet 1 02/11/2017 09/11/2017 Multiple Vitamins-Minerals (CENTRUM SILVER ULTRA WOMENS) TABS Take 1 Tab by mouth once daily. 08/30/2020 omeprazole (PRILOSEC) 40 MG capsuleIndications:Louie roesophageal reflux disease without esophagitis Take 1 Cap by mouth 2 times daily,before breakfast and supper 90 Cap 3 09/16/2016 02/24/2017 documented as of this encounter Procedure Notes * Ramon Parker MD - 02/14/2017 10:19 AM CSTAssociated Order(s): CPAP/BIPAP TITRATION Procedure(s): CPAP/BIPAP TITRATION Pre-Procedure Diagnose(s): DAILY (obstructive sleep apnea) Post-Procedure Diagnose(s): DAILY (obstructive sleep apnea) Polysomnogram sleep study with CPAP/BiPAP titration 66 year-old who was diagnosed with mild obstructive sleep apnea/hypopnea syndrome on 01/20/2017 whopresents for CPAP titration. Recording montage. The patient [...] was 43.8. PLM arousal index was 9.5 EKG. EKG demonstrated normal sinus rhythm throughout the study. No ST or T-wave abnormalities were seen.1 run of SVT was seen. EEG. With [...] few seconds. That needs to be evaluated. Ramon Parker MD, [facility] Pul[facility]. Be advised that voice recognition software was used in the production of this record. Errors in interpretation may have been inadvertently missed during review. OL LUNCH MONITOR documented in this encounter Plan of Treatment Upcoming Encounters Date Type Department Care Team (Late st Contact Info) Description 06/29/2024 10:00 AM CDT Office Visit [facility] - Internal Medicine [address] [facility] [address] [place] [phone] Tamia Brooks MD [address] [place] [address], [place] [phone] documented as of this encounter Goals Goal Patient Goal Type Associated Problems Recent Progress Patient-Stated? Author Blood Pressure < 140/90 Blood Pressure 130/70( 024 1:19 PM CDT) No Lola Neff MA documented as of this encounter Procedures Procedure Name Priority Date/Time Associated Diagnosis Comments PULMONARY/RESPIRATORY REPORT ORDER 02/20/2017 10:19 PM SCHOOL LUNCH MONITOR REDUCED POLYSOMNOGRAPHY 4 OR MORE PARAMETERS WITHOUT CPAP Routine 02/14/2017 10:29 AM SCHOOL LUNCH MONITOR DAILY (obstructive sleep apnea) documented in this encounter Results * PULMONARY/RESPIRATORY REPORT ORDER (02/20/2017 10:19 PM SCHOOL LUNCH MONITOR) Narrative 02/20/2017 10:19 PM SCHOOL LUNCH MONITOR Ordered by an unspecified provider. Scanned Document RESPIRATORY THERAPY ORDERABLES * CPAP/BIPAP TITRATION (02/14/2017 10:29 AM SCHOOL LUNCH MONITOR) Narrative Ramon Parker MD - 02/14/2017 10:29 AM SCHOOL LUNCH MONITOR Ramon Parker MD ? 02/14/2017 10:29 AM [...] needs to be evaluated. Ramon Parker MD, [facility] Pulmonary [facility] Sleep Medicine. Be advised that voice recognition software was used in the production of this record. ??Errors in interpretation may have been inadvertently missed during review. Ramon Parker MD [facility] ORDERAB LES documented in this encounter Visit Diagnoses Diagnosis DAILY (obstructive sleep apnea) Obstructive sleep apnea (adult) (pediatric) documented in this encounter Care Teams Seismic Computer Relationship Specialty Start Date End Date Tamia Brooks MD [address] [phone] PCP - General Internal Medicine 07/26/16 Yohan Barros DPM [address] [place] [phone] Podiatry 05/24/13 documented as of this encounter
--- OUTSIDE RECORDS SUMMARY | 2024-03-22 20:12 | XMS_ITS | Encounter Summary ---
Author Organization [facility] Address [address] [facility] [place] [address] Care Team Providers Care Snack Foods Mixer Operator Name Role Phone Yohan Barros DPM Unavailable [phone] Tamia Brooks MD Primary Care Provider Reason for Visit * Reason Comments Pain Pelvic Encounter Details Date Type Department Care Team (Late st Contact Info) Description 08/28/2017 1:00 PM CDT Office Visit [facility] - Internal Medicine [address] [facility] [address] [place] [phone] Tamia Brooks MD [address] [place] [phone] DDD (degenerative disc disease), lumbar (Primary Dx); Groin strain, left, initial encounter; Chronic diastolic congestive heart failure (HCC); Venous stasis dermatitis of both lower extremities; CKD (chronic kidney disease) stage 3, GFR 30-59 ml/min (HCC); Gastroesophageal reflux disease without esophagitis; DAILY (obstructive sleep apnea); Class 1 obesity due to excess calories with serious comorbidity and body mass index (BMI) of 31.0 to 31.9 in adult; Hypertension, benign essential; Hyperlipidemia, unspecified hyperlipidemia type; Prediabetes Social History Tobacco Use Types Packs/Day Years [...] Reading Time Taken Comments Blood Pressure 126/74 08/28/2017 12:48 PM CDT Pulse 68 08/28/2017 12:48 PM CDT Temperature 36.9 ??C (98.5 ??F) 08/28/2017 12:48 PM C DT Respiratory Rate - - Oxygen Saturation 97% 08/28/2017 12:48 PM CDT Inhaled Oxygen Concentration - - Weight 85.4 kg (188 lb 3.2 oz) 08/28/2017 12:48 PM CDT Height 165.1 cm (5' 5 ) 08/28/2017 12:48 PM CDT Body Mass Index 31.32 08/28/2017 12:48 PM CDT documented in this encounter Patient Instructions * Patient Instructions* Diane Jensen - 08/28/2017 1:05 PM CDT Please arrive 15 minutes early to your next appointment. Following your visit, you may receive a survey via email or U.S. Mail about your experience with us. We encourage you to respond to this confidential survey about our care. We at [facility] are committed toalways providing you with the most exceptional care. Your feedback helps us provide quality serviceat every visit. Can try intermittent fasting. Check out The obesity code by Dr. Benoit Duran. Caring for Your High Blood Pressure Exercise [...] Where can I go for more information? [place] [employer] National Center: http://www.americanheart.org 1. In the top header, click ???Conditions?? . 2. In the top header, click ???high blood pressure.?? 3. For a printable blood pressure tracker, scroll toward the bottom of the page to Related Tools, and click ???HBP Trackers.?? 4-943-UYO-USA-1 or ( ) National Heart, Lung and Blood [place]: http://www.nhlbi.nih.gov/health/infoctr/index.htm documented in this encounter Progress Notes * Tamia Brooks MD - 08/28/2017 1:14 PM CDT Tamia Brooks M.D. [facility] - Department of Internal Medicine [address] [place] [address], [address] [place] [address] History of Present Illness Maura Watkins is a 67 y.o. female who presents to the office Chief Complaint Patient presents with ??? Pain Pelvic Patient is a 66-year-old female with a past medical history significant for allergic rhinitis, insomnia, CKD 3, HLD, HTN, pre diabetes, OA knees, anxiety and depression who presents today for follow up. B/l LE rash - leg rash has improved. Still on her feet however, but is improving. She saw dermatology but feel she never got a good diagnosis. Most likely venous statis dermatitis. DDD lumbar - still present - she is also having numbness in her lower back and into her groin - groin pain: reports she is feeling pain in her inner area, like a sharp stabbing pain, constant, worse when she is turning. Taking 2 acetaminophen per day, which does help some. Using epsom salt bath, unsure how much it helps. HTN/HLD/ CKD3 - meds: Lisinopril 20 mg, lipitor 40 mg - BP at home: 120-145/70-80 - has cut back on caffeine - compliance is good - Denies CAMPUZANO, CP, SOB, myalgia BP Readings from Last 3 Encounters: 08/28/17 126/74 05/13/17 122/72 04/22/17 134/80 ?? GERD - controlled currently on PPI ?? Weight gain/ Obesity/Pre-diabetes - trying to work out more. Has been doing water aerobics as well as trying to walk the tract more. - trying to watch her diet. Recently back from vacation however where she did not adhere to her diet. Wt Readings from Last 3 Encounters: 08/28/17 85.4 kg (188 lb 3.2 oz) 05/13/17 84.8 kg (187 lb) 04/22/17 81.6 kg (180 lb) Weight change: +7 lbs since the last visit here. Aerobic exercise: regularly as directed Blood pressure checks: no Glucose monitoring: no Labs reviewed: yes and Did them today. Recent Labs Component Name 05/22/17 0835 09/26/16 0802 SODIUM 143 143 POTASSIUM 4.6 4.9 CHLORIDE 102 101 CO2 22 23 BUN 17 23 CREATININE 1.35* 1.24* GLUCOSE 125* 113* CALCIUM 10.1 9.6 Recent Labs Component Name 09/26/16 0802 TSH 2.080 Recent Labs Component Name 04/17/17 0911 09/26/16 0802 WBC 5.7 4.9 HGB 12.7 12.4 HCT 39.9 36.8 PLTCOUNT 302 312 Recent Labs Component Name 09/16/16 HGBA1C 5.9 Recent Labs Component Name 09/26/16 0802 10/04/15 0732 CHOL 181 279* TRIG 130 121 HDL 47 58 LDLCALC 108* 197* No results for input(s): MICROALBUGML in the last 18762 hours. No results for input(s): MICROALBCREA in the last 30487 hours. No results for input(s): INR in the last 04694 hours. Health Maintenance Topic Date Due ??? DTAP/TDAP/TD VACCINES (1 - Tdap) 1967 ??? ZOSTER VACCINE (1 of 2) 1998 ??? ANNUAL MEDICARE WELLNESS VISIT 02/06/2016 ??? HCC (Chart Reviewer Use Only) 11/08/2017 ??? INFLUENZA VACCINE (Season Ended) 2017 ??? BONE DENSITY TESTING 09/27/2018 ??? MAMMOGRAM 02/11/2019 ??? SCREENING FOR DIABETES 05/22/2020 ??? LIPID SCREENING 09/26/2021 ??? COLON CA [...] Take 1 capsule by mouth once daily ??? furosemide (LASIX) 20 MG tablet Take 1 tablet by mouth 2 times daily 60 tablet 5 ??? glucosamine-chondroitin (GLUCOSAMINE CHONDR COMPLEX) [...] congestion or allergic sx. Physical Examination Vitals: 08/28/17 1248 BP: 126/74 Pulse: 68 Temp: 98.5 ??F (36.9 ??C) SpO2: 97% Weight: 85.4 kg (188 lb 3.2 oz) CrCl cannot be calculated (Patient's most recent sCr result is older than the maximum 15 days allowed.). Body mass index is 31.32 kg/(m^2). .General appearance: alert and NAD SKIN: No suspicious lesions are noted on the exposed skin. EYES: Extraocular muscle movements are intact. Conjunctiva are without significant erythema. HEENT: Auricles are intact without erythema. Hearing is intact to conversational tone. HEART: Regular rate and rhythm. No murmurs, rubs, or gallops are noted. No LE edema. No JVD or hepatojugular reflux [...] + straight leg raise on L. TTP alongmedial thigh area. Decreased internal rotation of L hip. Assessment and Plan DDD lumbar/ groin strain - moderately controlled - referral to PT given Venous statis dermatitis - improved - continue compression stocking HTN/CKD3 - controlled - continue current meds HLD - controlled - continue current meds Obesity/ pre-diabetes - advised to try intermittent fasting Allergic rhinitis - controlled - continue current medications Anxiety/depression - well controlled - continue current meds GERD/ H/o Gastritis - controlled - continue PPI The above was discussed with the patient and understanding was voiced. Patient is in agreement withthe above plan HM: - AWV to be scheduled next visit Return to office: Return in about 6 months (around 02/27/2018) for AWV ( 40 min) . documented in this encounter Plan of Treatment Upcoming Encounters Date Type Department Care Team (Late st Contact Info) Description 06/29/2024 10:00 AM CDT Office Visit [facility] - Internal Medicine [address] [place] [address] [place] [phone] Tamia Brooks MD [address] [place] [phone] documented as of this encounter Goals Goal Patient Goal Type Associated Problems Recent Progress Patient-Stated? Author Blood Pressure < 140/90 Blood Pressure 130/70( 024 1:19 PM CDT) Lola Serna MA documented as of this encounter Visit Diagnoses Diagnosis DDD (degenerative disc disease), lumbar- Primary Degeneration of lumbar or lumbosacral intervertebral disc Groin strain, left, initial encounter Chronic diastolic congestive heart failure (HCC) Chronic diastolic heart failure Venous stasis dermatitis of both lower extremities CKD (chronic kidney disease) stage 3, GFR 30-59 ml/min (HCC) Chronic kidney disease, Stage III (moderate) Gastroesophageal reflux disease without esophagitis Esophageal reflux DAILY (obstructive sleep apnea) Obstructive sleep apnea (adult) (pediatric) Class 1 obesity due to excess calories with serious comorbidity and body mass index (BMI) of 31.0 to 31.9 in adult Hypertension, benign essential Essential hypertension, benign Hyperlipidemia, unspecified hyperlipidemia type Prediabetes Other abnormal glucose documented in this encounter Care Teams Snack Foods Mixer Operator Relationship Specialty Start Date End Date Tamia Brooks MD [address] [facility] [address] [place] [phone] PCP - General Internal Medicine 07/26/16 Yohan Barros DPM [address] [facility] [address] [place] [phone] Podiatry 05/24/13 documented as of this encounter
--- OUTSIDE RECORDS SUMMARY | 2024-03-22 20:13 | XMS_ITS | Encounter Summary ---
Author Organization [facility] Address [address] [facility] [place] [address] Care Team Providers Care Cereal Maker Name Role Phone Yohan Barros DPM Unavailable [phone] Lemuel Hoang MD Primary Care Provider Unavailab le Reason for Visit * Reason Comments Bone Density Scan Encounter Details Date Type Department Care Team (Latest Contact Info) Description 08/17/2014 9:30 AM CDT OBGYN RADIOLOGY [facility] Medical [facility] - Internal Medicine [address] [facility] [place] [address] CKD (chronic kidney disease) stage 3, GFR 30-59 ml/min ([facility]) ; Post-menopausal Social History Tobacco Use Types Packs/Day Years [...] - Inhaled Oxygen Concentration - - Weight 64 kg (141 lb) 08/17/2014 12:20 PM CDT Height 162.6 cm (5' 4 ) 08/17/2014 12:20 PM CDT Body Mass Index 24.2 08/17/2014 12:20 PM CDT documented in this encounter Progress Notes * Lemuel Hoang MD - 08/24/2014 5:44 PM CDTQuick Note: Dexa Scan result released to Showpad. Message sent to patient. documented in this encounter Procedure Notes * LuisaTranTiara MJenny - 08/17/2014 12:21 PM CDTAssociated Order(s): DEXA BONE DENSITY 2 SITES [facility] BONE DENSITY REPORT Pt. Name: Maura Watkins Gender: female : 1950 Test Date: 08/17/2014 Referring Physician: Lemuel Hoang MD Technologist: SANJUANA Jaramillo A Central DXA was performed today using a HoloSwarm Mobile QDR Discovery C box loader. The images and data have been scanned. Images are of good technical quality. Areas studied: Spine 0.1; Lt. Hip -0.5; Rt. Hip -0.2; Lt. Fem Nec -1.6; Rt.Fem Nec -1.7; (with site T scores) Official T-score: --> -1.7 Interpretation: Low Bone Density (Osteopenia) Comments: Osteoporosis may be diagnosed in postmenopausal women and in men age 50 and older if the T-score ofthe lumbar spine, total hip or femoral neck is -2.5 or less. In certain circumstances the 33% radius may be utilized. A fragility fracture, regardless of T-score, should be considered diagnostic of osteoporosis (provided other causes of the fracture have been excluded). Recommendations: In general postmenopausal women should have a daily intake of 1000 mg of calcium aday, and 800 IU of Vitamin D a day. A decision about when to add prescription therapy requires clinical correlation and may vary for any given individual patient. Fracture risk approximately doubles for every 1 SD decrease in BMD. The 2008 NOF suggests postmenopausal women and men [...] appropriate evaluation to exclude secondary causes 4) Low bone mass (T-score between -1.0 and [...] of any major osteoporosis-related fracture > 20% based on the [place] adapted WHO algorithm (available at www.shef.ac.uk/FRAX) Reese Valverde MD 08/17/2014 6:09 PM Reese Valverde MD Physician and Certified Clinical Utilities And Maintenance Supervisor documented in this encounter Plan of Treatment Upcoming Encounters Date Type Department Care Team (Late st Contact Info) Description 06/29/2024 10:00 AM CDT Office Visit [facility] - Internal Medicine [address] [place] [phone] Tamia Brooks MD [address] [place] [phone] documented as of this encounter Goals Goal Patient Goal Type Associated Problems Recent Progress Patient-Stated? Author Blood Pressure < 140/90 Blood Pressure 130/70( 024 1:19 PM CDT) Lola Serna MA documented as of this encounter Procedures Procedure Name Priority Date/Time Associated Diagnosis Comments DEXA BONE DENSITY 2 SITES Routine 08/17/2014 6:09 PM CDT Post-menopausal documented in this encounter Results * DEXA BONE DENSITY 2 SITES (08/17/2014 6:09 PM CDT) Anatomical Region Laterality Modality Other Narrative 08/17/2014 6:09 PM CDT Reese Valverde MD ? 08/17/2014 ??6:09 PM [facility] BONE ??DENSITY ??REPORT Pt. Name: ??Maura Watkins Gender: female : ??1950 Test Date: ??08/17/2014 Referring Physician: ??Lemuel Hoang MD Technologist: ??SANJUANA Jaramillo A Central DXA was performed today using a HoloSwarm Mobile QDR Discovery C box loader. ??The images and data have been scanned. [...] Reese Valverde MD Physician and Certified Clinical Utilities And Maintenance Supervisor Lemuel Hoang MD DEXA ORDERABLES documented in this encounter Visit Diagnoses Diagnosis CKD (chronic kidney disease) stage 3, GFR 30-59 ml/min (HCC)- Primary Chronic kidney disease, Stage III (moderate) Post-menopausal Asymptomatic postmenopausal status (age-related) (natural) documented in this encounter Care Teams Cereal Maker Relationship Specialty Start Date End Date Lemuel Hoang MD [address] [place] [phone] PCP - General Family Medicine 05/06/14 07/25/16 Yohan Barros DPM [address] [place] [phone] Podiatry 05/24/13 documented as of this encounter
--- OUTSIDE RECORDS SUMMARY | 2024-03-22 20:13 | XMS_ITS | Encounter Summary ---
Author Organization [facility] Address [address] [place] [address] Care Team Providers Care Manager Poker Name Role Phone Jhonathan Fisher MD Primary Care Provider Unav ailable Encounter Details Date Type Department Care Team (Late Contact Info) Description 05/14/2010 Orders Only [facility] - Internal Medicine [address] [facility] [place] [address] Jhonathan Fisher MD Injury of left foot; Left foot pain Social History Tobacco Use Types Packs/Day Years Used Date Smoking Tobacco: Former Cigarettes Q uit: 03/10/1990 Alcohol Use Standard Drinks/Week Comments No 0 (1 standard drink = 0.6 oz pur e alcohol) Sex and Gender Information Value Date Recorded Sex Assigned at Not on file Gender Identity Female 11/22/2016 11:14 AM CDT Sexual Orientation Not on file documented as of this encounter Plan of Treatment Upcoming Encounters Date Type Department Care Team (Late Contact Info) Description 06/29/2024 10:00 AM CDT Office Visit [facility] - Internal Medicine [address] [facility] [address] [place] [phone] Tamia Brooks MD [address] [place] [phone] documented as of this encounter Procedures Procedure Name Priority Date/Time Associated Diagnosis Comments XR FOOT LEFT 2VW Routine 05/03/2010 Injury of left foot Left foot pain documented in this encounter Results * XR FOOT 2 VW LEFT (05/03/2010) Anatomical Region Laterality Modality Ankle / Foot Other Jhonathan Fisher MD DIAGNOSTIC IMAGING ORDERABLES documented in this encounter Visit Diagnoses Diagnosis Injury of left foot Injury, other and unspecified, knee, leg, ankle, and foot Left foot pain Pain in limb documented in this encounter Care Teams Manager Poker Relationship Specialty Start Date End Date Jhonathan Fisher MD PCP - General 08/09/08 05/05/14 documented as of this encounter
--- OUTSIDE RECORDS SUMMARY | 2024-03-22 20:13 | XMS_ITS | Encounter Summary ---
Author Organization [facility] Address [address] [facility] [facility] [address] Care Team Prov[address] Care Place Change Roof Bolter Name Role Phone Jhonathan Fisher MD Primary Care Provider Yohan Michael DPM Unavailable [phone] Reason for Visit * Reason Onset Date Comments MEDICATION REFILL 02/07/2014 Encounter Details Date Type Department Care Team (Late st Contact Info) Description 02/07/2014 Refill [facility] - Internal Medicine [address] [facility] [place] [place] [address] Jhonathan Fisher MD MEDICATION REFILL Social History Tobacco Use Types [...] Miscellaneous Notes * Telephone Encounter - Lizbeth He - 02/07/2014 1:15 PM CST Requested Prescriptions Pending Prescriptions Disp Refills ??? amLODIPine (NORVASC) 5 MG tablet 90 Tab 3 Sig: Take 1 Tab by mouth once daily. Last fill 11/10/2013 Next appt 06/24/2014 S COORDINATOR documented in this encounter Plan of Treatment Upcoming Encounters Date Type Department Care Team (Late st Contact Info) Description 06/29/2024 10:00 AM CDT Office Visit [facility] Medical [facility] - Internal Medicine [address] [facility] [address] [place] [phone] Tamia Brooks MD [address] [facility] [address] [place] [phone] documented as of this encounter Goals Goal Patient Goal Type Associated Problems Recent Progress Patient-Stated? Author Blood Pressure < 140/90 Blood Pressure 130/70( 024 1:19 PM CDT) No Lola Neff MA documented as of this encounter Visit Diagnoses Not on filedocumented in this encounter Care Teams Place Change Roof Bolter Relationship Specialty Start Date End Date Jhonathan Fisher MD PCP - General 08/09/08 05/05/14 Yohan Barros DPM [address] [place] [address] [place] [phone] Podiatry 05/24/13 documented as of this encounter
--- OUTSIDE RECORDS SUMMARY | 2024-03-22 20:13 | XMS_ITS | Encounter Summary ---
Author Organization [facility] Address [address] [address] Care Team Providers Care Surveyor Chain Helper Name Role Phone Jhonathan Fisher MD Primary Care Provider Yohan Michael DPM Unavailable [phone] Reason for Visit * Reason Onset Date Comments Referral Request 11/04/2013 Encounter Details Date Type Department Care Team (Late st Contact Info) Description 11/04/2013 Telephone [facility] Medical [facility] - Internal Medicine [address] [facility] [place] [address] [place] [address] Jhonathan Fisher MD Referral Request Social History Tobacco Use Types Packs/Day [...] encounter Miscellaneous Notes * Telephone Encounter - Jennifer Valverde LPN - 11/04/2013 3:39 PM CDT Patient notified she will call them and schedule * Telephone Encounter - Jhonathan Fisher MD - 11/04/2013 2:06 PM CDT Send her to Daily Payan MD in [place]. DX anhydrotic eczema. * Telephone Encounter - Benoit Wadsworth RN - 11/04/2013 11:58 AM CDT Requesting derm referral for recurrent skin issues with feet. Hx anhydrotic foot dermatitis per prob list. Has seen DPM's in past but would like to see a derm this time if OK. documented in this encounter Plan of Treatment Upcoming Encounters Date Type Department Care Team (Late st Contact Info) Description 06/29/2024 10:00 AM CDT Office Visit [facility] - Internal Medicine [address] [place] [phone] Tamia Brooks MD [address] [place] [phone] documented as of this encounter Visit Diagnoses Diagnosis Eczema, dyshidrotic- Primary Dyshidrosis documented in this encounter Care Teams Surveyor Chain Helper Relationship Specialty Start Date End Date Jhonathan Fisher MD PCP - General 08/09/08 05/05/14 Yohan Barros DPM [facility] [phone] Podiatry 05/24/13 documented as of this encounter
--- OUTSIDE RECORDS SUMMARY | 2024-03-22 20:13 | XMS_ITS | Encounter Summary ---
Author Organization [facility] Address [address] [place] [address] Care Team Providers Care Leasing Representative Name Role Phone Jhonathan Fisher MD Primary Care Provider Unav ailable Reason for Visit * Reason Comments Swelling Foot both right and left feet and ankles Encounter Details Date Type Department Care Team (Late st Contact Info) Description 06/03/2011 11:40 AM CDT Office Visit [facility] Medical [facility] - Internal Medicine [address] [facility] [place] [place] [address] María Ellis MD Need updated address Dependent edema (Primary Dx) Social History Tobacco Use Types [...] Sign Reading Time Taken Comments Blood Pressure 128/78 06/03/2011 11:39 AM CDT Pulse 72 06/03/2011 11:39 AM CDT Temperature 36.4 ??C (97.6 ??F) 06/03/2011 11:39 AM C DT Respiratory Rate - - Oxygen Saturation 98% 06/03/2011 11:39 AM CDT Inhaled Oxygen Concentration - - Weight 71.7 kg (158 lb) 06/03/2011 11:39 AM CDT Height 162.6 cm (5' 4 ) 06/03/2011 11:39 AM CDT Body Mass Index 27.12 06/03/2011 11:39 AM CDT documented in this encounter Progress Notes * María Ellis MD - 06/03/2011 11:52 AM CDT .Subjective: Maura Watkins is a 61 y.o. female presents today for the evaluation of: Chief Complaint Patient presents with ??? 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 3 weeks of swelling intermittently in bilateral feet. And pain in soles and tips of 2, 3 toes No hormones. No h/o blood clots. No supplements. Patient Active Problem List Diagnoses Date Noted ??? Routine general medical examination at a health care facility 02/28/11 02/28/2011 ??? Herpes zoster 04/12/2010 ??? Routine general medical examination at a health care facility 10/30/2009 ??? Allergic rhinitis 09/20/2008 ??? S/P hysterectomy 09/20/2008 ??? Hypertension 09/20/2008 ??? Hyperlipidemia 09/20/2008 Current Outpatient Prescriptions on File Prior to Visit Medication Sig Dispense Refill ??? atorvastatin (LIPITOR) 40 MG tablet Take 1 Tab by mouth at bedtime. 90 Tab 3 ??? Pseudoephedrine-Guaifenesin (MUCINEX D PO) Take 1 Tab by mouth once daily as needed. ??? amLODIPine (NORVASC) 5 MG tablet Take 1 Tab by mouth once daily. 90 Tab 3 ??? lisinopril (PRINIVIL; ZESTRIL) 40 MG tablet Take 1 Tab by mouth once daily. 90 Tab 1 ??? LORazepam (ATIVAN) 0.5 MG tablet Take 1 Tab by mouth 3 times daily. 90 Tab 4 ROS: Respiratory ROS: no cough, shortness of breath, or wheezing Some dyspnea on exertion with stairs carrying with 1 flight- able to do Le without difficulty. Cardiovascular ROS: negative for - chest pain or palpitations Otherwise as in HPI. Shx: Smoked late 20's to early 40s Objective: BP 128/78 Pulse 72 Temp(Src) 97.6 ??F (Temporal) Wt 158 lb (71.668 kg) BMI 27.12 kg/m2 Bodymass index is 27.12 kg/(m^2). Estimated Creatinine Clearance: 45.5 ml/min (based on Cr of 1.23). General appearance - alert, well appearing, and in no distress Chest - clear to auscultation, no wheezes, rales or rhonchi, symmetric air entry Heart - normal rate, regular rhythm, normal S1, S2, no murmurs, rubs, clicks or gallops Musculoskeletal - no joint tenderness, deformity or swelling Extremities - peripheral pulses normal, no pedal edema, no clubbing or cyanosis - callouses at tipsof toes. Non-tender calcaneus. Jurgen's neg bilaterally. Assessment: Encounter Diagnoses Name Primary? Dependent edema, some HERBERT Yes pain in feet- normal B12, folate, and labs in Mar. Sleep apnea Plan: No orders of the defined types were placed in this encounter. Medications Discontinued During This Encounter Medication Reason ??? vitamin D3 (VITAMIN D3) 1000 UNIT capsule Medication list revision Get stress echo as previously ordered. Compression stockings prn. Make sure shoes fit well. CPAP started- more energetic. documented in this encounter Plan of Treatment Upcoming Encounters Date Type Department Care Team (Late st Contact Info) Description 06/29/2024 10:00 AM CDT Office Visit [facility] Medical [facility] - Internal Medicine [facility] [facility] [address] [place] [phone] Tamia Brooks MD [address] [place] [address] [place] [phone] documented as of this encounter Visit Diagnoses Diagnosis Dependent edema- Primary Edema documented in this encounter Care Teams Leasing Representative Relationship Specialty Start Date End Date Jhonathan Fisher MD PCP - General 08/09/08 05/05/14 documented as of this encounter
--- OUTSIDE RECORDS SUMMARY | 2024-03-22 20:13 | XMS_ITS | Encounter Summary ---
Author Organization [facility] Address [address] [facility] [place] [address] Care Team Providers Care Orange Picking Supervisor Name Role Phone Yohan Barros DPM Unavailable Lemuel Hoang MD Primary Care Provider Unavailab le Reason for Visit * Reason Comments Refill Request Encounter Details Date Type Department Care Team (Late Contact Info) Description 08/08/2015 Refill [facility] - Internal Medicine [address] [facility] [place] [place] [address] Lemuel Hoang MD RETIRED Refill Request Social [...] * Telephone Encounter - Cassy Mendez - 08/08/2015 8:44 AM CDT Last ov 07/10/15 Future appt 01/12/16 documented in this encounter Plan of Treatment Upcoming Encounters Date Type Department Care Team (Late Contact Info) Description 06/29/2024 10:00 AM CDT Office Visit [facility] - Internal Medicine [address] [facility] [address] [place] [address] Tamia Brooks MD [address] [facility] [address] [place] [address] documented as of this encounter Goals Goal Patient Goal Type Associated Problems Recent Progress Patient-Stated? Author Blood Pressure < 140/90 Blood Pressure 130/70( 024 1:19 PM CDT) Lola Serna MA documented as of this encounter Visit Diagnoses Not on filedocumented in this encounter Care Teams Orange Picking Supervisor Relationship Specialty Start Date End Date Lemuel Hoang MD [address] [place] [phone] PCP - General Family Medicine 05/06/14 07/25/16 Yohan Barros DPM [address] [place] [phone] Podiatry 05/24/13 documented as of this encounter
--- OUTSIDE RECORDS SUMMARY | 2024-03-22 20:13 | XMS_ITS | Encounter Summary ---
Author Organization [facility] Address [address] [facility] [place] [address] Care Team Providers Care Farrowing Manager Name Role Phone Jhonathan Fisher MD Primary Care Provider Unav ailable Encounter Details Date Type Department Care Team ([facility] Contact Info) Description 01/30/2010 Orders Only [facility] - Internal Medicine [address] [facility] [place] [address] Jhonathan Fisher MD Fever blister Social History Tobacco Use Types Packs/Day Years [...] Upcoming Encounters Date Type Department Care Team ([facility] Contact Info) Description 06/29/2024 10:00 AM CDT Office Visit [facility] - Internal Medicine [address] [phone] Tmaia Brooks MD [address] [place] [phone] documented as of this encounter Visit Diagnoses Diagnosis Fever blister- Primary Herpes simplex without mention of complication documented in this encounter Care Teams Farrowing Manager Relationship Specialty Start Date End Date Jhonathan Fisher MD PCP - General 08/09/08 05/05/14 documented as of this encounter
--- OUTSIDE RECORDS SUMMARY | 2024-03-22 20:13 | XMS_ITS | Encounter Summary ---
Author Organization [facility] Address [address] [place] [address] Care Team Providers Care Jewel Hole Driller Name Role Phone Jhonathan Fisher MD Primary Care Provider Unav ailable Reason for Visit * Reason Comments Refill Request Encounter Details Date Type Department Care Team (Late Contact Info) Description 01/09/2012 Refill [facility] - Internal Medicine [address] [facility] [place] [address] Jhonathan Fisher MD Refill Request Social History Tobacco Use Types [...] Telephone Encounter - Sunita Valenzuela MA - 01/09/2012 10:53 AM CDT Phoned into [employer] documented in this encounter Plan of Treatment Upcoming Encounters Date Type Department Care Team (Late Contact Info) Description 06/29/2024 10:00 AM CDT Office Visit [facility] - Internal Medicine [address] [phone] Tamia Brooks MD [facility] [address] [place] [address] documented as of this encounter Visit Diagnoses Not on filedocumented in this encounter Care Teams Jewel Hole Driller Relationship Specialty Start Date End Date Jhonathan Fisher MD PCP - General 08/09/08 05/05/14 documented as of this encounter
--- OUTSIDE RECORDS SUMMARY | 2024-03-22 20:13 | XMS_ITS | Encounter Summary ---
Author Organization [facility] Address [address] [place] [address] Care Team Providers Care Window Installer Name Role Phone Jhonathan Fisher MD Primary Care Provider Unav ailable Reason for Visit * Reason Onset Date Comments MEDICATION REFILL 01/09/2012 Encounter Details Date Type Department Care Team (Late st Contact Info) Description 01/09/2012 Refill [facility] Medical [facility] - Internal Medicine [address] [place] [address] Jhonathan Fisher MD MEDICATION REFILL Social History [...] Encounter - Sunita Valenzuela MA - 01/09/2012 1:20 PM CDT This was done * Telephone Encounter - Charisma Fisher RN - 01/09/2012 11:20 AM CDT Last fill 10/10/11 documented in this encounter Plan of Treatment Upcoming Encounters Date Type Department Care Team (Late st Contact Info) Description 06/29/2024 10:00 AM CDT Office Visit [facility] - Internal Medicine [address] [phone] Tamia Brooks MD [facility] [phone] documented as of this encounter Visit Diagnoses Not on filedocumented in this encounter Care Teams Window Installer Relationship Specialty Start Date End Date Jhonathan Fisher MD PCP - General 08/09/08 05/05/14 documented as of this encounter
--- OUTSIDE RECORDS SUMMARY | 2024-03-22 20:13 | XMS_ITS | Encounter Summary ---
Author Organization [facility] Address [address] [facility] [place] [address] Care Team Providers Care Fresh Food Manager Name Role Phone Yohan Barros DPM Unavailable [phone] Lemuel Hoang MD Primary Care Provider Unavailab le Reason for Referral * Radiology Services - Closed Specialty Diagnoses / Procedures Referred By Valeria ramesh Referred To Contact Diagnoses Post-menopausal Procedures DEXA BONE DENSITY 2 SITES Lemuel Hoang MD RETIRED Referral ID Status Reason Start Date Expiration Date Visits Re quested Visits Authorized [id number] Closed 06/24/2014 12/21/2014 1 1 Reason for Visit * Reason Comments Establish Care Hyperlipidemia Encounter Details Date Type Department Care Team (Late st Contact Info) Description 06/24/2014 10:30 AM CDT Office Visit [facility] - Internal Medicine [address] [place] [address] [place] [address] Lemuel Hoang MD RETIRED Hypertension, benign essential (Primary Dx); Chronic insomnia; Hyperlipidemia; Prediabetes; Post-menopausal Social History Tobacco Use Types Packs/Day [...] Sign Reading Time Taken Comments Blood Pressure 132/74 06/24/2014 10:42 AM CDT Pulse 62 06/24/2014 10:42 AM CDT Temperature 37 ??C (98.6 ??F) 06/24/2014 10:42 AM CDT Respiratory Rate - - Oxygen Saturation 99% 06/24/2014 10:42 AM CDT Inhaled Oxygen Concentration - - Weight 65.8 kg (145 lb) 06/24/2014 10:42 AM CDT Height 162.6 cm (5' 4.02 ) 06/24/2014 10:42 AM C DT Body Mass Index 24.88 06/24/2014 10:42 AM CDT documented in this encounter Patient Instructions * Patient Instructions* AndreaCassy - 06/24/2014 10:40 AM CDT Caring for Your High Blood Pressure Healthy [...] Where can I go for more information? [place] [employer] National Center: http://www.americanheart.org 1. In the top header, click ???Conditions?? . 2. In the top header, click ???high blood pressure.?? 3. For a printable blood pressure tracker, scroll toward the bottom of the page to Related Tools, and click ???HBP Trackers.?? 0-790-LSS-USA-1 or ( ) National Heart, Lung and Blood [place]: http://www.nhlbi.nih.gov/health/infoctr/index.htm documented in this encounter Progress Notes * Lemuel Hoang MD - 07/14/2014 5:18 PM CDTQuick Note: Lab results released to [employer] * Lemuel Hoang MD - 06/30/2014 8:04 AM CDT Encounter Date: 06/24/2014 ASSESSMENT/PLAN: 1. Hypertension, benign essential - continue lisinopril 40 mg once daily and amlodipine 5 mg once daily - BASIC METABOLIC PANEL (CALCIUM TOTAL) - CBC W AUTO DIFFERENTIAL 2. Chronic insomnia - want to reduce use of lorazepam, will start trazodone to help sleep - traZODone (DESYREL) 50 MG tablet; Take 1 Tab by mouth at bedtime. Dispense: 30 Tab; Refill: 5 - TSH - T4 FREE 3. Hyperlipidemia - continue atorvastatin 40 mg once daily - LIPID PROFILE - ALT - AST BLOOD 4. Prediabetes - counseled on diet and physical activity - BASIC METABOLIC PANEL (CALCIUM TOTAL) - HEMOGLOBIN A1C 5. Post-menopausal - will get screening bone density study - DEXA BONE DENSITY 2 SITES; Future Return in about 6 months (around 12/24/2014), or as needed. HPI: Maura Watkins is a 64 y.o. female who presents for routine management of chronic conditions: hypertension, chronic insomnia, hyperlipidemia and prediabetes. She is doing well without new complaints. She continues to use lorazepam nightly for sleep. Review of Systems Constitutional: Negative for malaise/fatigue and diaphoresis. Eyes: Negative for blurred vision and double vision. Respiratory: Negative. Negative for cough and shortness of breath. Cardiovascular: Negative. Negative for chest pain, palpitations and orthopnea. Gastrointestinal: Negative. Genitourinary: Negative. Musculoskeletal: Negative for myalgias. Neurological: Negative for dizziness, tingling, tremors, sensory change, speech change, focal weakness, weakness and headaches. PSFHx: Problem List, Medication List, History, and Allergies reviewed and updated. Patient Active Problem List Diagnosis ??? Allergic rhinitis ??? Hypertension, benign essential ??? Hyperlipidemia ??? Routine general medical examination at a health care facility ??? Routine general medical examination at a health care facility 02/28/11 ??? Anhydrotic dermatitis of foot 04/27/12 ??? Routine general medical examination at a health care facility 04/27/12 ??? Primary osteoarthritis of both knees ??? Prediabetes ??? Situational mixed anxiety and depressive disorder ??? CKD (chronic kidney disease) stage 3, GFR 30-59 ml/min Current Outpatient Prescriptions on File Prior to Visit Medication Sig Dispense Refill ??? lisinopril (PRINIVIL; ZESTRIL) 40 MG tablet Take 1 Tab by mouth once daily. 30 Tab 5 ??? LORazepam (ATIVAN) 0.5 MG tablet Take 1 Tab by mouth 3 times daily as needed. 90 Tab 0 ??? amLODIPine (NORVASC) 5 MG tablet Take 1 Tab by mouth once daily. 90 Tab 1 ??? atorvastatin (LIPITOR) 40 MG tablet TAKE ONE TABLET BY MOUTH AT BEDTIME 90 Tab 3 ??? Multiple Vitamins-Minerals (CENTRUM SILVER ULTRA WOMENS) TABS Take 1 Tab by mouth once daily. No current facility-administered medications on file prior to visit. OBJECTIVE: BP 132/74 Pulse 62 Temp(Src) 98.6 ??F Wt 65.772 kg (145 lb) BMI 24.88 kg/m2 Physical Exam Constitutional: She is oriented [...] and no mass. There is no tenderness. Lymphadenopathy: She has no cervical adenopathy. [...] [facility] - Internal Medicine [address] [facility] [address] [place] [address] Tamia Brooks MD [address] [place] [phone] documented as of this encounter Goals Goal Patient Goal Type Associated Problems Recent Progress Patient-Stated? Author Blood Pressure < 140/90 Blood Pressure 130/70( 024 1:19 PM CDT) No Lola Neff MA documented as of this encounter Procedures Procedure Name Priority Date/Time Associated Diagnosis Comments HEMOGLOBIN A1C Routine 07/13/2014 8:47 AM CDT Prediabetes CBC W AUTO DIFFERENTIAL Routine 07/13/2014 8:47 AM CDT Hypertension, benign essential BASIC METABOLIC PANEL (CALCIUM TOTAL) Routine 07/13/2014 8:47 AM CDT Hypertension, benign essential Prediabetes ALT Routine 07/13/2014 8:47 AM CDT Hyperlipidemia AST BLOOD Routine 07/13/2014 8:47 AM CDT Hyperlipidemia TSH Routine 07/13/2014 8:47 AM CDT Chronic insomnia T4 FREE Routine 07/13/2014 8:47 AM CDT Chronic insomnia LIPID PROFILE Routine 07/13/2014 8:47 AM CDT Hyperlipidemia documented in this encounter Results * DEXA BONE DENSITY 2 SITES (08/17/2014 6:09 PM CDT) Anatomical Region Laterality Modality Other Narrative 08/17/2014 6:09 PM CDT Reese Valverde MD ? 08/17/2014 ??6:09 PM [facility] Medical group BONE ??DENSITY ??REPORT Pt. Name: ??Maura Watkins Gender: female : ??[id number] Test Date: ??08/17/2014 Referring Physician: ??Lemuel Hoang MD Technologist: ??SANJUANA Jaramillo A Central DXA was performed today using a [employer] GeoTrac C rod puller and coiler. ??The images and data have been scanned. [...] Reese Valverde MD Physician and Certified Clinical Campus Safety Officer Lemuel Hoang MD DEXA ORDERABLES * CBC W AUTO DIFFERENTIAL (07/13/2014 8:47 AM CDT) WBC 5.5 3.4 - 10.8 x10E3/uL [facility] INSURANCE BILL RBC 4.62 3.77 - 5.28 x10E6/uL [facility] INSURANCE BILL Hemoglobin 13.3 11.1 - 15.9 g/dL [facility] INSURANCE BILL Hematocrit 40.8 34.0 - 46.6 % [facility] INSURANCE BILL MCV 88 79 - 97 fL [facility] INSURANCE BILL MCH 28.8 26.6 - 33.0 pg [facility] INSURANCE BILL MCHC 32.6 31.5 - 35.7 g/dL [facility] INSURANCE BILL RDW 13.8 12.3 - 15.4 % [facility] INSURANCE BILL Platelet Count 300 150 - 379 x10E3/uL [facility] INSURANCE BILL Granulocytes % 61 % [facility] INSURANCE BILL Lymphocytes % 24 % [facility]URANCE [facility] Monocytes % 10 % [facility] INSURANCE BILL Eosinophils % 3 % [facility] INSURANCE BILL Basophils % 2 % [facility] INSURANCE BILL Immature Cells NOT NEEDED [facility] INSURANCE BILL Comment:Ancillary determined the test is not needed Granulocytes Absolute 3.4 1.4 - 7.0 x10E3/uL [facility] INSURANCE BILL Lymphocytes Absolute 1.3 0.7 - 3.1 x10E3/uL [facility] INSURANCE BILL [...] Comment:Ancillary determined the test is not needed Blood specimen (specimen) BLOOD SPECIMEN / Unknown 07/13/2014 8:47 AM CDT 07/13/2014 1:28 PM CDT Narrative Resulting Agency Comment [facility] [address] ??[facility] [phone] Lemuel Hoang MD LAB - HEMATOLOGY [place] [facility] INSURANCE BILL * T4 FREE (07/13/2014 8:47 AM CDT) T4 Free 1.00 0.82 - 1.77 ng/dL [facility] INSURANCE BILL Blood specimen (specimen) BLOOD SPECIMEN / Unknown 07/13/2014 8:47 AM CDT 07/13/2014 1:28 PM CDT Narrative Resulting Agency Comment [facility] [id number] [facility] ??[facility] [phone] Lemuel Hoang MD LAB - CHEMISTRY PREETI COSTA [facility] INSURANCE BILL * TSH (07/13/2014 8:47 AM CDT) TSH 2.060 0.450 - 4.500 uIU/mL [facility] INSURANCE BILL Blood specimen (specimen) BLOOD SPECIMEN / Unknown 07/13/2014 8:47 AM CDT 07/13/2014 1:28 PM CDT Narrative Resulting Agency Comment [facility] [address] ??[place] [phone] Lemuel Hoang MD LAB - CHEMISTRY PREETI COSTA Performing Organization Address [facility] de Phone Number [facility] INSURANCE BILL * (ABNORMAL) HEMOGLOBIN A1C (07/13/2014 8:47 AM CDT) Hemoglobin A1c 5.9(H) 4.8 - 5.6 % [facility] INSURANCE BILL Comment: ? . ? Increased risk for diabetes: 5.7 - 6.4 ? Diabetes: >6.4 ? Glycemic control for adults with diabetes: <7.0 Whole blood specimen (specimen) BLOOD SPECIMEN WITH EDTA / Unknown 07/13/2014 8:47 AM CDT 07/13/2014 1:28 PM CDT Narrative Resulting Agency Comment [facility] [place] [address] ??[place] [phone] Lemuel Hoang MD LAB - CHEMISTRY PREETI COSTA Performing Organization Address [facility] de Phone Number [facility] INSURANCE BILL * AST BLOOD (07/13/2014 8:47 AM CDT) AST 24 0 - 40 IU/L [facility] INSURANCE BILL Blood specimen (specimen) BLOOD SPECIMEN / Unknown 07/13/2014 8:47 AM CDT 07/13/2014 1:28 PM CDT Narrative Resulting Agency Comment [facility] [address] ??[place] [phone] Lemuel Hoang MD LAB - CHEMISTRY PREETI COSTA Performing Organization Address [facility] de Phone Number [facility] INSURANCE BILL * ALT (07/13/2014 8:47 AM CDT) ALT 18 0 - 32 IU/L [facility] INSURANCE BILL Blood specimen (specimen) BLOOD SPECIMEN / Unknown 07/13/2014 8:47 AM CDT 07/13/2014 1:28 PM CDT Narrative Resulting Agency Comment [facility] ??[facility] [phone] Lemuel Hoang MD LAB - CHEMISTRY PREETI COSTA [facility] INSURANCE BILL * (ABNORMAL) BASIC METABOLIC PANEL (CALCIUM TOTAL) (07/13/2014 8:47 AM CDT) Glucose 97 65 - 99 mg/dL [facility] INSURANCE BILL BUN 21 8 - 27 mg/dL [facility] INSURANCE BILL Creatinine 1.43(H) 0.57 - 1.00 mg/dL [facility] INSURANCE BILL eGFR by MDRD 38(L) >59 mL/min/1.7 3 [facility] INSURANCE BILL eGFR by MDRD 44(L) >59 mL/min/1.7 3 [facility] INSURANCE BILL BUN/Creatinine Ratio 15 11 - 26 [facility] INSURANCE BILL Sodium 143 134 - 144 mmol/L [facility] INSURANCE BILL Potassium 5.0 3.5 - 5.2 mmol/L [facility] INSURANCE BILL Chloride 102 97 - 108 mmol/L [facility] INSURANCE BILL CO2 25 18 - 29 mmol/L [facility] INSURANCE BILL Calcium 9.8 8.7 - 10.3 mg/dL [facility] INSURANCE BILL Blood specimen (specimen) BLOOD SPECIMEN / Unknown 07/13/2014 8:47 AM CDT 07/13/2014 1:28 PM CDT Narrative Resulting Agency Comment [facility] ??[facility] [phone] Lemuel Hoang MD LAB - CHEMISTRY PREETI COTSA [facility] INSURANCE BILL * LIPID PROFILE (07/13/2014 8:47 AM CDT) Cholesterol 154 100 - 199 mg/dL [facility] INSURANCE BILL Triglycerides 78 0 - 149 mg/dL [facility] INSURANCE BILL HDL Cholesterol 58 >39 mg/dL [facility] INSURANCE BILL Comment: According to ATP-III Guidelines, HDL-C >59 mg/dL is considered a negative risk factor for CHD. VLDL Calculated 16 5 - 40 mg/dL [facility] INSURANCE BILL LDL Calculated 80 0 - 99 mg/dL [facility] INSURANCE BILL Comment NOT NEEDED [facility] INSURANCE BILL Comment:Ancillary determined the test is not needed Blood specimen (specimen) BLOOD SPECIMEN / Unknown 07/13/2014 8:47 AM CDT 07/13/2014 1:28 PM CDT Narrative Resulting Agency Comment [facility] [address] ??[facility] [phone] Lemuel Hoang MD LAB - CHEMISTRY PREETI COSTA [facility] Organization Address City/State/ZIP Co de Phone Number [facility] INSURANCE BILL documented in this encounter Visit Diagnoses Diagnosis Hypertension, benign essential- Primary Essential hypertension, benign Chronic insomnia Insomnia, unspecified Hyperlipidemia Other and unspecified hyperlipidemia Prediabetes Other abnormal glucose Post-menopausal Asymptomatic postmenopausal status (age-related) (natural) CKD (chronic kidney disease) stage 3, GFR 30-59 ml/min (HCC)- Primary Chronic kidney disease, Stage III (moderate) Post-menopausal Asymptomatic postmenopausal status (age-related) (natural) documented in this encounter Care Teams Fresh Food Manager Relationship Specialty Start Date End Date Lemuel Hoang MD [address] [place] [phone] PCP - General Family Medicine 05/06/14 07/25/16 Yohan Barros DPM [address] [place] [phone] Podiatry 05/24/13 documented as of this encounter
--- OUTSIDE RECORDS SUMMARY | 2024-03-22 20:13 | XMS_ITS | Encounter Summary ---
Author Organization [facility] Address [address] [facility] [place] [address] Care Team Providers Care Drum Barker Operator Name Role Phone Jhnoathan Fisher MD Primary Care Provider Unav ailable Reason for Visit * Reason Onset Date Comments MEDICATION REFILL 05/11/2013 Encounter Details Date Type Department Care Team (Late st Contact Info) Description 05/11/2013 Refill [facility] Medical [facility] - Internal Medicine [address] [facility] [place] [address] Jhonathan Fisher MD MEDICATION REFILL Social History [...] encounter Miscellaneous Notes * Telephone Encounter - Tiara Moran - 05/11/2013 10:27 AM CST Called lorazepam refill to Lemuel at [facility]. HEL KNITTING MACHINE OPERATOR * Telephone Encounter - Tiara Moran - 05/11/2013 9:41 AM CST Last fill: Amlodipine 04/27/12 Lorazepam 01/06/13 Next/Last OV: 05/31/13 HEL KNITTING MACHINE OPERATOR documented in this encounter Plan of Treatment Upcoming Encounters Date Type Department Care Team (Late st Contact Info) Description 06/29/2024 10:00 AM CDT Office Visit [facility] - Internal Medicine [address] [place] [phone] Tamia Brooks MD [address] [place] [phone] documented as of this encounter Visit Diagnoses Not on filedocumented in this encounter Care Teams Drum Barker Operator Relationship Specialty Start Date End Date Jhonathan Fisher MD PCP - General 08/09/08 05/05/14 documented as of this encounter
--- OUTSIDE RECORDS SUMMARY | 2024-03-22 20:13 | XMS_ITS | Encounter Summary ---
Author Organization [facility] Address [address] [place] [address] Care Team Providers Care Simulation Technician Name Role Phone Jhonathan Fisher MD Primary Care Provider Unav ailable Reason for Visit * Reason Onset Date Comments MEDICATION REFILL 01/08/2012 Encounter Details Date Type Department Care Team (Late st Contact Info) Description 01/08/2012 Refill [facility] Medical [facility] - Internal Medicine [address] [facility] [place] [address] Jhonathan Fisher MD MEDICATION REFILL Social History [...] encounter Miscellaneous Notes * Telephone Encounter - Lola Neff MA - 01/08/2012 2:30 PM CDT I called ATIVAN rx in to the [place] [facility] * Telephone Encounter - Tiara Moran - 01/08/2012 1:44 PM CDT Requested Prescriptions Pending Prescriptions Disp Refills ??? LORazepam (ATIVAN) 0.5 MG tablet 90 Tab 4 Sig: Take 1 Tab by mouth 3 times daily. Last fill: 10/10/11 Next/Last OV: 03/23/12 documented in this encounter Plan of Treatment Upcoming Encounters Date Type Department Care Team (Late st Contact Info) Description 06/29/2024 10:00 AM CDT Office Visit [facility] - Internal Medicine [address] [facility] [address] [place] [phone] Tamia Brooks MD [address] [place] [phone] documented as of this encounter Visit Diagnoses Not on filedocumented in this encounter Care Teams Simulation Technician Relationship Specialty Start Date End Date Jhonathan Fisher MD PCP - General 08/09/08 05/05/14 documented as of this encounter
--- OUTSIDE RECORDS SUMMARY | 2024-03-22 20:13 | XMS_ITS | Encounter Summary ---
Author Organization [facility] Address [address] [place] [address] Care Team Providers Care Superintendent Greens Name Role Phone Yohan Barros DPM Unavailable Lemuel Hoang MD Primary Care Provider Unavailab le Reason for Visit * Reason Comments Insect bite Encounter Details Date Type Department Care Team (Late st Contact Info) Description 07/08/2014 10:20 AM CDT Office Visit [facility] Medical [facility] - Internal Medicine [address] [facility] [place] [address] Lemuel Hoang MD RETIRED Spider bite, initial encounter (Primary Dx); Cellulitis; Chronic insomnia Social History Tobacco Use Types Packs/Day Years [...] Sign Reading Time Taken Comments Blood Pressure 122/82 07/08/2014 10:39 AM CDT Pulse 76 07/08/2014 10:39 AM CDT Temperature 36.7 ??C (98 ??F) 07/08/2014 10: 39 AM CDT Respiratory Rate - - Oxygen Saturation 99% 07/08/2014 10: 39 AM CDT Inhaled Oxygen Concentration - - Weight 64.3 kg (141 lb 12.8 oz) 05/01/2 015 10:39 AM CDT Height 162.6 cm (5' 4.02 ) 07/08/2014 1 0:39 AM CDT Body Mass Index 24.33 07/08/2014 10:39 AM CDT documented in this encounter Patient Instructions * Patient Instructions* Cassy Mendez - 07/08/2014 10:39 AM CDT Caring for Your High Blood [...] Where can I go for more information? [place] [employer] Association National Center: http://www.americanheart.org 1. In the top header, click ???Conditions?? . 2. In the top header, click ???high blood pressure.?? 3. For a printable blood pressure tracker, scroll toward the bottom of the page to Related Tools, and click ???HBP Trackers.?? 7-996-BHW-USA-1 or ( ) National Heart, Lung and Blood [place]: http://www.nhlbi.nih.gov/health/infoctr/index.htm documented in this encounter Progress Notes * Lemuel Hoang MD - 07/19/2014 10:25 PM CDT Encounter Date: 07/08/2014 ASSESSMENT/PLAN: 1. Spider bite, initial encounter - keep lesion clean and dry. May apply cool compress if becomes painful. Will give antibiotic coverage since patient is going out of town this weekend. 2. Cellulitis - cephALEXin (KEFLEX) 500 MG capsule; Take 1 Cap by mouth 3 times daily for 7 days. Dispense: 21 Cap; Refill: 0 3. Chronic insomnia - decrease trazodone to 25 mg at bedtime. If she continues to feel side effects to medication will change to Remeron. - she has now discontinued lorazepam Return if symptoms worsen or fail to improve in 5-7 days. HPI: Maura Watkins is a 64 y.o. female who presents with a possible spider bite on her arm. She first noticed this yesterday. Now is more swollen and painful. No fever, chill, myalgias, nausea, abdominal pain, or swollen glands. She has now stopped using lorazepam at bedtime. She has been able to fall asleep with the trazodonebut awakens in the night and feels anxious and shaky. She has had trouble taking antihistamines in the past and this feels the same. PSFHx: Problem List, Medication List, History, and Allergies reviewed and updated. OBJECTIVE: BP 122/82 mmHg Pulse 76 Temp(Src) 98 ??F Wt 64.32 kg (141 lb 12.8 oz) BMI 24.33 kg/m2 Gen: VS reviewed for visit. Patient alert, oriented, well-hydrated, in no acute distress. Lungs: Clear to auscultation and percussion. CV: Regular rate and rhythm. No murmurs. Pulses normal. Skin: red, raised lesion with central ulceration on left arm No lymphadenopathy Psych: mood and affect normal, thought content normal, behavior normal Lemuel Hoang MD documented in this encounter Plan of Treatment Upcoming Encounters Date Type Department Care Team (Late st Contact Info) Description 06/29/2024 10:00 AM CDT Office Visit [facility] Medical [facility] - Internal Medicine [address] [facility] [address] [place] [address] Tamia Brooks MD [address] [facility] [address] [place] [address] documented as of this encounter Goals Goal Patient Goal Type Associated Problems Recent Progress Patient-Stated? Author Blood Pressure < 140/90 Blood Pressure 130/70( 024 1:19 PM CDT) Lola Serna MA documented as of this encounter Visit Diagnoses Diagnosis Spider bite, initial encounter- Primary Cellulitis Cellulitis and abscess of unspecified site Chronic insomnia Insomnia, unspecified documented in this encounter Care Teams Superintendent Greens Relationship Specialty Start Date End Date Lemuel Hoang MD [address] [place] [phone] PCP - General Family Medicine 05/06/14 07/25/16 Yohan Barros DPM [address] [place] [phone] Podiatry 05/24/13 documented as of this encounter
--- OUTSIDE RECORDS SUMMARY | 2024-03-22 20:13 | XMS_ITS | Encounter Summary ---
Author Organization [facility] Address [address] [place] [address] Care Team Providers Care Rail Car Mechanic Name Role Phone Jhonathan Fisher MD Primary Care Provider Unav ailable Reason for Visit * Reason Onset Date Comments MEDICATION REFILL 11/02/2010 Encounter Details Date Type Department Care Team (Late st Contact Info) Description 11/02/2010 Refill [facility] Medical [facility] - Internal Medicine [address] [facility] [place] [address] Jhonathan Fisher MD MEDICATION REFILL Social History [...] Telephone Encounter - Sunita Valenzuela MA - 11/02/2010 11:08 AM CDT Phoned in ativan spoke with nancy. * Telephone Encounter - Bee Aldridge RN - 11/02/2010 10:02 AM CDT Requested Prescriptions Pending Prescriptions Disp Refills ??? vitamin D, ergocalciferol, (DRISDOL) 91799 UNIT capsule 12 Cap 3 Sig: Take 1 Cap by mouth every 7 days. ??? LORazepam (ATIVAN) 0.5 MG tablet 90 Tab 4 Sig: Take 1 Tab by mouth 3 times daily. ??? lisinopril (PRINIVIL; ZESTRIL) 40 MG tablet 90 Tab 3 Sig: Take 1 Tab by mouth once daily. ??? atorvastatin (LIPITOR) 10 MG tablet 90 Tab 3 Sig: Take 1 Tab by mouth at bedtime. ??? amLODIPine (NORVASC) 5 MG tablet 30 Tab 5 Sig: Take 1 Tab by mouth once daily. documented in this encounter Plan of Treatment Upcoming Encounters Date Type Department Care Team (Late st Contact Info) Description 06/29/2024 10:00 AM CDT Office Visit [facility] Medical [facility] - Internal Medicine [address] [place] [phone] Tamia Brooks MD [address] [place] [phone] documented as of this encounter Visit Diagnoses Not on filedocumented in this encounter Care Teams Rail Car Mechanic Relationship Specialty Start Date End Date Jhonathan Fisher MD PCP - General 08/09/08 05/05/14 documented as of this encounter
--- OUTSIDE RECORDS SUMMARY | 2024-03-22 20:13 | XMS_ITS | Encounter Summary ---
Author Organization [facility] Address [address] [facility] [place] [address] Care Team Providers Care Restoration Officer Name Role Phone Jhonathan Fisher MD Primary Care Provider Yohan Michale DPM Unavailable [phone] Reason for Visit * Reason Onset Date Comments MEDICATION REFILL 11/23/2013 Encounter Details Date Type Department Care Team (Late st Contact Info) Description 11/23/2013 Refill [facility] Medical [facility] - Internal Medicine [address] [facility] [place] [address] Jhonathan Fisher MD MEDICATION REFILL Social History [...] Telephone Encounter - Sunita Valenzuela MA - 11/23/2013 3:52 PM CDT Phoned in spoke with emily * Telephone Encounter - Lola Neff MA - 11/23/2013 2:48 PM CDT Next OV 01/07/14 Last refill/rx 05/11/13 (qty 90 /refill 1 ) documented in this encounter Plan of Treatment Upcoming Encounters Date Type Department Care Team (Late st Contact Info) Description 06/29/2024 10:00 AM CDT Office Visit [facility] - Internal Medicine [address] [facility] [address] [place] [address] Tamia Brooks MD [address] [place] [phone] documented as of this encounter Visit Diagnoses Not on filedocumented in this encounter Care Teams Restoration Officer Relationship Specialty Start Date End Date Jhonathan Fisher MD PCP - General 08/09/08 05/05/14 Yohan Barros DPM [address] [place] [place] [address] [place] [phone] Podiatry 05/24/13 documented as of this encounter
--- OUTSIDE RECORDS SUMMARY | 2024-03-22 20:13 | XMS_ITS | Encounter Summary ---
Author Organization [facility] Address [address] [facility] [place] [address] Care Team Providers Care Director Of Software Engineering Name Role Phone Jhonathan Fisher MD Primary Care Provider Unav ailable Reason for Visit * Reason Onset Date Comments MEDICATION REFILL 10/29/2010 Encounter Details Date Type Department Care Team ([facility] Contact Info) Description 10/29/2010 Refill [facility] - Internal Medicine [address] [facility] [address] Jhonathan Fisher MD MEDICATION REFILL Social History [...] Visit [facility] - Internal Medicine [facility] [address] [phone] Tamia Brooks MD [address] [place] [phone] documented as of this encounter Visit Diagnoses Not on filedocumented in this encounter Care Teams Director Of Software Engineering Relationship Specialty Start Date End Date Jhonathan Fisehr MD PCP - General 08/09/08 05/05/14 documented as of this encounter
--- OUTSIDE RECORDS SUMMARY | 2024-03-22 20:13 | XMS_ITS | Encounter Summary ---
Author Organization [facility] Address [address] [place] [address] Care Team Providers Care Chemical Plant Worker Name Role Phone Yohan Barros DPM Unavailable Lemuel Hoang MD Primary Care Provider Unavailab le Reason for Visit * Reason Onset Date Comments MEDICATION REFILL 03/31/2015 Encounter Details Date Type Department Care Team (Late st Contact Info) Description 03/31/2015 Refill [facility] Medical [facility] - Internal Medicine [address] [facility] [place] [address] Lemuel Hoang MD RETIRED MEDICATION REFILL Social [...] Miscellaneous Notes * Telephone Encounter - Lizbeth Vasquez RN - 03/31/2015 3:06 PM SHOP ASSISTANT Requested Prescriptions Pending Prescriptions Disp Refills ??? atorvastatin (LIPITOR) 40 MG tablet 30 Tab 0 Sig: Take 1 Tab by mouth at bedtime Next appt 07/10/2015. Requesting 30 day until mail order arrives. ASSISTANT documented in this encounter Plan of Treatment Upcoming Encounters Date Type Department Care Team (Late st Contact Info) Description 06/29/2024 10:00 AM CDT Office Visit [facility] - Internal Medicine [address] [facility] [address] [place] [address] Tamia Brooks MD [address] [facility] [address] [place] [address] documented as of this encounter Goals Goal Patient Goal Type Associated Problems Recent Progress Patient-Stated? Author Blood Pressure < 140/90 Blood Pressure 130/70( 024 1:19 PM CDT) Lola Serna MA documented as of this encounter Visit Diagnoses Not on filedocumented in this encounter Care Teams Chemical Plant Worker Relationship Specialty Start Date End Date Lemuel Hoang MD [address] [place] [phone] PCP - General Family Medicine 05/06/14 07/25/16 Yohan Barros DPM [address] [place] [phone] Podiatry 05/24/13 documented as of this encounter
--- OUTSIDE RECORDS SUMMARY | 2024-03-22 20:13 | XMS_ITS | Encounter Summary ---
Author Organization [facility] Address [address] [place] [address] Care Team Providers Care Deputy Coroner Investigator Name Role Phone Jhonathan Fisher MD Primary Care Provider Yohan Michael Madyson DPM Unavailable [phone] Reason for Visit * Reason Comments Pre-op Clearance Encounter Details Date Type Department Care Team (Late st Contact Info) Description 11/30/2013 10:00 AM CDT Office Visit [facility] Medical [facility] - Internal Medicine [address] [facility] [place] [address] Lemuel Hoang MD RETIRED Preop examination (Primary Dx); Cataract Social History Tobacco Use Types Packs/Day Years [...] Sign Reading Time Taken Comments Blood Pressure 118/78 11/30/2013 10:12 AM CDT Pulse 73 11/30/2013 10:12 AM CDT Temperature 36.9 ??C (98.5 ??F) 11/30/2013 10:12 AM C DT Respiratory Rate - - Oxygen Saturation 95% 11/30/2013 10:12 AM CDT Inhaled Oxygen Concentration - - Weight 66.9 kg (147 lb 6.4 oz) 11/30/2013 10:12 AM CDT Height 163.8 cm (5' 4.5 ) 11/30/2013 10:12 AM CD T Body Mass Index 24.91 11/30/2013 10:12 AM CDT documented in this encounter Patient Instructions * Patient Instructions* Lola Neff MA - 11/30/2013 10:16 AM CDT Caring for Your High Blood Pressure Exercise [...] Where can I go for more information? [place] Heart Association National Center: http://www.americanheart.org 1. In the top header, click ???Conditions?? . 2. In the top header, click ???high blood pressure.?? 3. For a printable blood pressure tracker, scroll toward the bottom of the page to Related Tools, and click ???HBP Trackers.?? 0-095-UKV-USA-1 or ( ) National Heart, Lung and Blood [place]: http://www.nhlbi.nih.gov/health/infoctr/index.htm documented in this encounter Progress Notes * Lemuel Hoang MD - 12/07/2013 9:02 AM CDT HPI: Maura Watkins is a 63 y.o. female, who presents for medical clearance prior to scheduled eye surgery under local anesthesia. Patient is doing well without complaints. Review of Systems Constitutional: Negative for fever and chills. Respiratory: Negative for cough and shortness of breath. Cardiovascular: Negative for chest pain and palpitations. Gastrointestinal: Negative. Genitourinary: Negative. Skin: Negative for itching and rash. Neurological: Negative. Negative for headaches. Endo/Heme/Allergies: Does not bruise/bleed easily. PSFHx: Problem List, Medication List, History, and Allergies reviewed. Past Medical History Diagnosis Date ??? UTI ??? Allergic rhinitis 09/20/2008 ??? Hypertension 09/20/2008 ??? Hyperlipidemia 09/20/2008 ??? Herpes zoster 04/12/2010 ??? Adductor tendonitis, right thigh 04/27/12 04/27/2012 ??? Anhydrotic dermatitis of foot 04/27/12 04/27/2012 ??? Primary osteoarthritis of both knees 10/27/2012 ??? Insulin resistance 10/27/2012 Past Surgical History Procedure Laterality Date ??? Hysterectomy ??? Endoscopy, colon, screening 06/23/06 ??? Colonoscopy N/A 11/05/2013 N/A; COLONOSCOPY SCREEN History Social History ??? Marital Status: Spouse Name: N/A Number of Children: 0 ??? Years of Education: 13+ Occupational History ??? Not on file. Social History Main Topics ??? Smoking status: Former Smoker Types: Cigarettes Quit date: 03/10/1990 ??? Smokeless tobacco: Never Used ??? Alcohol Use: Yes Comment: occ ??? Drug Use: No ??? Sexual Activity: Partners: Male Other Topics Concern ??? Service No ??? Blood Transfusions No ??? Caffeine Concern No ??? Sleep Concern Yes ??? Stress Concern Yes ??? Weight Concern Yes ??? Special Diet Yes ??? Back Care Yes ??? Exercise Yes ??? Bike Helmet Yes ??? Seat Belt Yes ??? Self-Exams Yes Social History Narrative Family History Problem Relation Age of Onset ??? Coronary Artery Disease Father ??? Heart Failure Mother ??? Cancer Father lung ??? Cancer Brother colon 2007 OBJECTIVE: BP 118/78 Pulse 73 Temp(Src) 98.5 ??F (Temporal) Wt 66.86 kg (147 lb 6.4 oz) BMI 24.92 kg/m2 Physical Exam Constitutional: She is oriented to person, place, and time. She appears well-developed. HENT: Head: Normocephalic. Right Ear: Tympanic membrane, external ear and ear canal normal. Left Ear: Tympanic membrane, external ear and ear canal normal. Nose: Nose normal. Mouth/Throat: Oropharynx is clear and moist. Eyes: Conjunctivae and EOM are normal. Pupils are equal, round, and reactive to light. No scleral icterus. Neck: Normal range of motion. Carotid bruit is not present. No thyromegaly present. Cardiovascular: Normal rate, regular rhythm, normal heart sounds and intact distal pulses. No murmur heard. Pulmonary/Chest: Effort normal and breath sounds normal. Abdominal: Soft. Bowel sounds are normal. She exhibits no distension and no mass. There is no tenderness. Musculoskeletal: Normal range of motion. Lymphadenopathy: She has no cervical adenopathy. Neurological: She is alert and oriented to person, place, and time. She has normal strength. No cranial nerve deficit or sensory deficit. Skin: Skin is warm and dry. No rash noted. Psychiatric: She has a normal mood and affect. Her behavior is normal. Thought content normal. Nursing note and vitals reviewed. ASSESSMENT & PLAN: 1. Preop examination - medically cleared for cataract surgery 2. Cataract Return as needed. Lemuel Hoang MD * Lola Neff MA - 11/30/2013 10:16 AM CDT Screenings Future Falls: Have you fallen in the last year?: No Depression: PHQ-2:TOTAL POINT SCORE: 0 PHQ-9: documented in this encounter Miscellaneous Notes * Addendum Note - Lillian Perry - 12/14/2013 4:13 PM CDTAddended by: LILLIAN PERRY on: 12/14/2013 04:13 PM Modules accepted: Level of Service documented in this encounter Plan of Treatment Upcoming Encounters Date Type Department Care Team (Late st Contact Info) Description 06/29/2024 10:00 AM CDT Office Visit [facility] - Internal Medicine [address] [facility] [address] [place] [address] Tamia Brooks MD [address] [facility] [address] [place] [address] documented as of this encounter Goals Goal Patient Goal Type Associated Problems Recent Progress Patient-Stated? Author Blood Pressure < 140/90 Blood Pressure 130/70( 024 1:19 PM CDT) Lola Serna MA documented as of this encounter Visit Diagnoses Diagnosis Preop examination- Primary Preoperative examination, unspecified Cataract documented in this encounter Care Teams Deputy Coroner Investigator Relationship Specialty Start Date End Date Jhonathan Fisher MD PCP - General 08/09/08 05/05/14 Yohan Barros DPCristofer [address] [phone] Podiatry 05/24/13 documented as of this encounter
--- OUTSIDE RECORDS SUMMARY | 2024-03-22 20:13 | XMS_ITS | Encounter Summary ---
Author Organization [facility] Address [address] [facility] [place] [address] Care Team Providers Care Patent Litigation Associate Name Role Phone Jhonathan Fisher MD Primary Care Provider Unav ailable Reason for Visit * Reason Onset Date Comments Hair Scalp Problem 11/28/2010 Encounter Details Date Type Department Care Team (Late st Contact Info) Description 11/28/[address] [facility] Medical [facility] - Internal Medicine [address] [place] [address] [place] [address] Jhonathan Fisher MD Hair Scalp Problem Social History Tobacco Use Types Packs/Day [...] Telephone Encounter - Lizbeth Vasquez RN - 11/28/2010 1:29 PM CDT Contact info given to pt. * Telephone Encounter - Jhonathan Fisher MD - 11/28/2010 11:58 AM CDT May see patricia Hannah, * Telephone Encounter - Lizbeth Vasquez RN - 11/28/2010 10:10 AM CDT Several bumps to back of head at hairline over several months. States that bumps become inflamed and irritated with heat. No pain, no drainage. States they are the size of a pimple or insect bite. Onthe left side of head. Itching. No change in shampoo, no OTC medications. computer science teacher thought it is eczema. Asks if she should see a derm? documented in this encounter Plan of Treatment Upcoming Encounters Date Type Department Care Team (Late st Contact Info) Description 06/29/2024 10:00 AM CDT Office Visit [facility] - Internal Medicine [address] [place] [phone] Tamia Brooks MD [address] [place] [phone] documented as of this encounter Visit Diagnoses Not on filedocumented in this encounter Care Teams Patent Litigation Associate Relationship Specialty Start Date End Date Jhonathan Fisher MD PCP - General 08/09/08 05/05/14 documented as of this encounter
--- OUTSIDE RECORDS SUMMARY | 2024-03-22 20:13 | XMS_ITS | Encounter Summary ---
Author Organization [facility] Address [address] [facility] [place] [address] Care Team Providers Care Precision Crop Manager Name Role Phone Jhonathan Fisher MD Primary Care Provider Unav ailable Reason for Referral * - Closed Specialty Diagnoses / Procedures Referred By Contac t Referred To Contact Diagnoses Obstructive sleep apnea (adult) (pediatric) Lola Pantoja MD [address] [place] [id number] Referral ID Status Reason Start Date Expiration Date Visits Re quested Visits Authorized [id number] Closed 04/15/2011 10/12/2011 1 1 OCK TESTER Reason for Visit * Reason Onset Date Comments Results 04/15/2011 Encounter Details Date Type Department Care Team (Late st Contact Info) Description 04/15/2011 Telephone [facility] Medical [facility] - Pulmonology [address], [address] [place], [place] [id number] Lola Pantoja MD [address] [place] [address] Results Social History Tobacco Use Types Packs/Day [...] encounter Miscellaneous Notes * Telephone Encounter - Ayse Villarreal MA - 04/15/2011 4:15 PM BABCOCK TESTER GAVE RESULTS,FAXED PATIENTS ORDERS TO [facility] THIS IS HER PLACE OF EMPLOYMENT.SHE WILL CALL BACK TO SCHEDULE FOLLOW UP APPT. OCK TESTER documented in this encounter Plan of Treatment Upcoming Encounters Date Type Department Care Team (Late st Contact Info) Description 06/29/2024 10:00 AM CDT Office Visit [facility] - Internal Medicine [address] [facility] [address] [place] [phone] Tamia Brooks MD [address] [place] [phone] Scheduled Referrals Name Type Priority Associated Diagnoses Orde r Schedule AMB REFERRAL TO HOME CARE Outpatient Referral Routine Obstructive sleep apnea (adult) (pediatric) Ordered: 04/15/2011 documented as of this encounter Visit Diagnoses Diagnosis Obstructive sleep apnea (adult) (pediatric)- Primary documented in this encounter Care Teams Precision Crop Manager Relationship Specialty Start Date End Date Jhonathan Fisher MD PCP - General 08/09/08 05/05/14 documented as of this encounter
--- OUTSIDE RECORDS SUMMARY | 2024-03-22 20:13 | XMS_ITS | Encounter Summary ---
Author Organization [facility] Address [address] [facility] [place] [address] Care Team Providers Care Network Liaison Name Role Phone Jhonathan Fisher MD Primary Care Provider Unav ailable Reason for Visit * Reason Onset Date Comments Bee sting 11/19/2011 Encounter Details Date Type Department Care Team (Late st Contact Info) Description 11/19/2011 Telephone [facility] - Internal Medicine [address] [place] [address] [place] [address] Jhonathan Fisher MD Bee sting Social History Tobacco Use Types Packs/Day Years [...] Miscellaneous Notes * Telephone Encounter - Bee Aldridge RN - 11/19/2011 2:10 PM CDT Rx sent to pharmacy. Pt notified. She voices understanding and acceptance of this advice and will call back if any further questions or concerns. * Telephone Encounter - Jhonathan Fisher MD - 11/19/2011 2:02 PM CDT Medrol dosepak. Keep leg elevated, and foot elevated as much as possibble till edema gone. * Telephone Encounter - Bee Aldridge RN - 11/19/2011 10:45 AM CDT Pt experienced a bee sting to the top of her foot on Friday. Area is swollen to the size of a half dollar, red, painful, and itching. No drainage. Can wear her shoe. documented in this encounter Plan of Treatment Upcoming Encounters Date Type Department Care Team (Late st Contact Info) Description 06/29/2024 10:00 AM CDT Office Visit [facility] Medical [facility] - Internal Medicine [address] [place] [phone] Tamia Brooks MD [address] [place] [phone] documented as of this encounter Visit Diagnoses Not on filedocumented in this encounter Care Teams Network Liaison Relationship Specialty Start Date End Date Jhonathan Fisher MD PCP - General 08/09/08 05/05/14 documented as of this encounter
--- OUTSIDE RECORDS SUMMARY | 2024-03-22 20:13 | XMS_ITS | Encounter Summary ---
Author Organization [facility] Address [address] [place] [address] Care Team Providers Care Sound Printer Name Role Phone Jhonathan Fisher MD Primary Care Provider Unav ailable Reason for Visit * Reason Onset Date Comments Results 05/10/2010 Encounter Details Date Type Department Care Team (Late st Contact Info) Description 05/10/2010 Telephone [facility] Medical [facility] - Internal Medicine [address] [facility] [place] [address] [place] [address] Jhonathan Fisher MD Results Social History Tobacco Use Types Packs/Day [...] * Telephone Encounter - Lizbeth He - 05/11/2010 1:59 PM CST Spoke with pt she states it is still swelling and I told her to call back if it gets worse. Since there is no fx we will do a bone scan if it gets worse. justin RVISOR TYPE PHOTOGRAPHY * Telephone Encounter - Lizbeth eH - 05/11/2010 1:20 PM CST Pt called again to get results of xr report is on your desk. justin RVISOR TYPE PHOTOGRAPHY * Telephone Encounter - Lizbeth He - 05/10/2010 2:01 PM CST Called [facility] again for xr results justin RVISOR TYPE PHOTOGRAPHY * Telephone Encounter - Lizbeth He - 05/10/2010 10:08 AM CST Pt called for xr results, did not see them in there said she got them at [facility]. Called the hosp they are faxing it over justin RVISOR TYPE PHOTOGRAPHY documented in this encounter Plan of Treatment Upcoming Encounters Date Type Department Care Team (Late st Contact Info) Description 06/29/2024 10:00 AM CDT Office Visit [facility] - Internal Medicine [address] [place] [address] [place] [phone] Tamia Brooks MD [address] [place] [address] [place] [phone] documented as of this encounter Visit Diagnoses Not on filedocumented in this encounter Care Teams Sound Printer Relationship Specialty Start Date End Date Jhonathan Fisher MD PCP - General 08/09/08 05/05/14 documented as of this encounter
--- OUTSIDE RECORDS SUMMARY | 2024-03-22 20:13 | XMS_ITS | Encounter Summary ---
Author Organization [facility] Address [address] [facility] [place] [address] Care Team Providers Care Rn Gynecology Name Role Phone Yohan Barros DPM Unavailable [phone] Lemuel Hoang MD Primary Care Provider Unavailab le Reason for Visit * Reason Comments Follow-up Hypertension Encounter Details Date Type Department Care Team (Latest Contact Info) Description 07/10/2015 3:20 PM CDT Office Visit [facility] - Internal Medicine [address] [facility] [address] [place], [place] [phone] Lemuel Hoang MD RETIRED Hypertension, benign essential (Primary Dx); CKD (chronic kidney disease) stage 3, GFR 30-59 ml/min (HCC); Hyperlipidemia, unspecified hyperlipidemia type; Allergic rhinitis, unspecified allergic rhinitis type; Dyspepsia; Myositis of multiple sites, unspecified myositis type; Need for vaccination for Strep pneumoniae Social History Tobacco Use Types Packs/Day Years [...] Sign Reading Time Taken Comments Blood Pressure 108/68 07/10/2015 3:33 PM CDT Pulse 62 07/10/2015 3:33 PM CDT Temperature 36.8 ??C (98.2 ??F) 07/10/2015 3:33 PM CD T Respiratory Rate - - Oxygen Saturation 100% 07/10/2015 3:33 PM CDT Inhaled Oxygen Concentration - - Weight 73.2 kg (161 lb 6.4 oz) 07/10/2015 3:33 P M CDT Height 162.6 cm (5' 4.02 ) 07/10/2015 3:33 PM CD T Body Mass Index 27.69 07/10/2015 3:33 PM CDT documented in this encounter Patient Instructions * Patient Instructions* Cassy Mendez - 07/10/2015 3:35 PM CDT Caring for Your High Blood Pressure Diet [...] Where can I go for more information? [place] [employer] National [facility]: http://www.americanheart.org 1. In the top header, click ???Conditions?? . 2. In the top header, click ???high blood pressure.?? 3. For a printable blood pressure tracker, scroll toward the bottom of the page to Related Tools, and click ???HBP Trackers.?? 9-702-BWO-USA-1 or ( ) National Heart, Lung and Blood [place]: http://www.nhlbi.nih.gov/health/infoctr/index.htm documented in this encounter Progress Notes * Lemuel Hoang MD - 07/10/2015 4:05 PM CDT Encounter Date: 07/10/2015 ASSESSMENT/PLAN: 1. Hypertension, benign essential 2. CKD (chronic kidney disease) stage 3, GFR 30-59 ml/min BP Readings from Last 3 Encounters: 07/10/15 108/68 06/05/15 142/90 01/06/15 114/72 - controlled. Now off of lisinopril - continue amlodipine 5 mg once daily 3. Hyperlipidemia, unspecified hyperlipidemia type Recent Labs Component Name 07/13/14 0847 08/28/13 0848 CHOL 154 190 TRIG 78 182* HDL 58 49 LDLCALC 80 105* - controlled but currently off of atorvastatin due to myalgias. Will continue to hold for another 6months and repeat labs 4. Allergic rhinitis, unspecified allergic rhinitis type - controlled - fluticasone propionate (FLONASE) 50 MCG/ACT nasal spray; [place] 1 [place] into each nostril once daily 5. Dyspepsia - recent increase in symptoms. Will treat with 28 days of omeprazole then change to ranitidine - omeprazole EC (PRILOSEC OTC) 20 MG tablet; Take 1 Tab by mouth daily before breakfast for 28 daysDispense: 28 Tab; Refill: 0 - ranitidine (ZANTAC) 150 MG tablet; Take 1 Tab by mouth at bedtime 6. Myositis of multiple sites, unspecified myositis type - symptoms have improved off of atorvastatin. Will hold for another 6 months before restarting 7. Need for vaccination for Strep pneumoniae - PNEUMOCOCCAL PCV13 VACCINE RENÉE - [facility] ONE VACCINE Return in about 6 months (around 01/10/2016), or as needed. HPI: Maura Watkins is a 65 y.o. female who presents for routine management of chronic conditions: hypertension, stage 3 CKD, hyperlipidemia, and allergic rhinitis, She has been off of atorvastatin for 6 weeks due to myalgias after an injury. This has now resolved. She has been having some increased heartburn symptoms over past few weeks. Review of Systems Constitutional: Negative for fever, chills, malaise/fatigue and diaphoresis. Eyes: Negative for blurred vision and double vision. Respiratory: Negative. Negative for cough and shortness of breath. Cardiovascular: Negative. Negative for chest pain, palpitations and orthopnea. Gastrointestinal: Positive for heartburn. Negative for nausea, vomiting, abdominal pain, diarrhea, constipation, blood in stool and melena. Genitourinary: Negative. Musculoskeletal: Negative for myalgias. Neurological: [...] to Visit Medication Sig Dispense Refill ??? diclofenac sodium EC (VOLTAREN) 50 MG tablet Take 1 Tab by mouth 2 times daily with morning andevening meal 60 Tab 0 ??? amLODIPine (NORVASC) 5 MG tablet Take 1 Tab by mouth once daily 90 Tab 1 ??? Multiple Vitamins-Minerals (CENTRUM SILVER ULTRA WOMENS) TABS Take 1 Tab by mouth once daily. No current facility-administered medications on file prior to visit. OBJECTIVE: BP 108/68 mmHg Pulse 62 Temp(Src) 98.2 ??F Wt 73.211 kg (161 lb 6.4 oz) BMI 27.69 kg/m2 Physical Exam Constitutional: She is oriented [...] content normal. Vitals reviewed. Lemuel Hoang MD * Cassy Mendez - 07/10/2015 3:35 PM CDT Screenings Future Falls: Have you fallen in the last year?: No Depression: PHQ-2:TOTAL POINT SCORE: 0 PHQ-9: PHQ-2 : Little interest or pleasure in doing things: Not at all Feeling down, depressed, or hopeless: Not at all TOTAL POINT SCORE: 0 PHQ-9: Little interest or pleasure in doing things: Not at all Feeling down, depressed, or hopeless: Not at all documented in this encounter Plan of Treatment Upcoming Encounters Date Type Department Care Team (Late st Contact Info) Description 06/29/2024 10:00 AM CDT Office Visit [facility] Medical [facility] - Internal Medicine [address] [facility] [address] [place] [phone] Tamia Brooks MD [address] [place] [phone] documented as of this encounter Goals [...] hyperlipidemia type Allergic rhinitis, unspecified allergic rhinitis type Dyspepsia Dyspepsia and other specified disorders of function of stomach Myositis of multiple sites, unspecified myositis type Need for vaccination for Strep pneumoniae Need for prophylactic vaccination against streptococcus pneumoniae (pneumococcus) documented in this encounter Care Teams Rn Gynecology Relationship Specialty Start Date End Date Lemuel Hoang MD [address] [place] [phone] PCP - General Family Medicine 05/06/14 07/25/16 Yohan Barros DPM [address] [place] [phone] Podiatry 05/24/13 documented as of this encounter
--- OUTSIDE RECORDS SUMMARY | 2024-03-22 20:13 | XMS_ITS | Encounter Summary ---
Author Organization [facility] Address [address] [place] [address] Care Team Providers Care Screw Machine Tool Setter Name Role Phone Jhonathan Fisher MD Primary Care Provider Unav ailable Reason for Visit * Reason Comments Refill Request Encounter Details Date Type Department Care Team (Late Contact Info) Description 04/28/2013 Refill [facility] - Internal Medicine [address] [place] [address] Jhonathan Fisher MD Refill Request Social History [...] Telephone Encounter - Jennifer Valverde LPN - 04/28/2013 9:51 AM CST LF 02/19 Appt 05/21 QUALITY CONSULTANT documented in this encounter Plan of Treatment Upcoming Encounters Date Type Department Care Team (Late Contact Info) Description 06/29/2024 10:00 AM CDT Office Visit [facility] - Internal Medicine [address] [phone] Tamia Brooks MD [address] [facility] [address] [place] [phone] documented as of this encounter Visit Diagnoses Not on filedocumented in this encounter Care Teams Screw Machine Tool Setter Relationship Specialty Start Date End Date Jhonathan Fisher MD PCP - General 08/09/08 05/05/14 documented as of this encounter
--- OUTSIDE RECORDS SUMMARY | 2024-03-22 20:13 | XMS_ITS | Encounter Summary ---
Author Organization [facility] Address [address] [facility] [place] [address] Care Team Providers Care Carbon Lamp Cleaner Name Role Phone Jhonathan Fisher MD Primary Care Provider Yohan Michael DPM Unavailable [phone] Reason for Visit * Reason Comments Hypertension Encounter Details Date Type Department Care Team (Latest Contact Info) Description 05/31/2013 11:30 AM CDT Office Visit [facility] - Internal Medicine [address] [place] [address] Jhonathan Fisher MD Hypertension (Primary Dx); Hyperlipidemia; Insulin resistance; Allergic rhinitis; Hyperuricemia, drug-induced, asymptomatic; Impaired fasting glucose; Other vitamin B12 deficiency anemia; Unspecified essential hypertension; Unspecified hypothyroidism; Vitamin D deficiency; Mixed hyperlipidemia; Primary osteoarthritis of both knees Social History Tobacco Use Types Packs/Day Years [...] Sign Reading Time Taken Comments Blood Pressure 128/70 05/31/2013 1:10 PM CDT Pulse 84 05/31/2013 1:10 PM CDT Temperature - - Respiratory Rate 16 05/31/2013 1:10 PM CDT Oxygen Saturation - - Inhaled Oxygen Concentration - - Weight 73.8 kg (162 lb 12.8 oz) 05/31/2013 1:10 PM CDT Height 165.1 cm (5' 5 ) 05/31/2013 1:10 PM CDT Body Mass Index 27.09 05/31/2013 1:10 PM CDT documented in this encounter Patient Instructions * Patient Instructions* Jhonathan Fisher MD - 06/01/2013 10:42 PM CDT Call if issues do not improve documented in this encounter Progress Notes * Jhonathan Fisher MD - 09/26/2013 9:10 PM CDTQuick Note: Lab letter sent to patient. Per my chart * Jhonathan Fisher MD - 06/01/2013 10:33 PM CDT Patient Active Problem List Diagnosis ??? Allergic rhinitis ??? S/P hysterectomy ??? Hypertension ??? Hyperlipidemia ??? Routine general medical examination at a health care facility ??? Herpes zoster ??? Routine general medical examination at a health care facility 02/28/11 ??? Adductor tendonitis, right thigh 04/27/12 ??? Anhydrotic dermatitis of foot 04/27/12 ??? Routine general medical examination at a health care facility 04/27/12 ??? Primary osteoarthritis of both knees ??? Insulin resistance Current Outpatient Prescriptions on File Prior to Visit Medication Sig Dispense Refill ??? lisinopril (PRINIVIL; ZESTRIL) 40 MG tablet Take 1 Tab by mouth once daily. 90 Tab 3 ??? amLODIPine (NORVASC) 5 MG tablet Take 1 Tab by mouth once daily. 90 Tab 3 ??? LORazepam (ATIVAN) 0.5 MG tablet Take 1 Tab by mouth 3 times daily as needed. 90 Tab 1 ??? atorvastatin (LIPITOR) 40 MG tablet TAKE ONE TABLET BY MOUTH AT BEDTIME 90 Tab 2 ??? vitamin D3 (VITAMIN D3) 1000 UNIT capsule Take 1 Cap by mouth once daily. 100 Cap 6 ??? Multiple Vitamins-Minerals (CENTRUM SILVER ULTRA WOMENS) TABS Take 1 Tab by mouth once daily. ??? Pseudoephedrine-Guaifenesin (MUCINEX D PO) Take 1 Tab by mouth once daily as needed. SUBJECTIVE: The patient is seen in followup of HYPERTENSION, HYPERLIPIDEMIA., and INSULIN RESISTANCE. ?? The pt is taking medications as instructed, no medication side effects noted, no TIA's, no chestpain on exertion. ?? No dyspnea on exertion, no swelling of ankles, no orthostatic dizziness or lightheadedness. ?? No orthopnea or paroxysmal nocturnal dyspnea. No palpitations, no intermittent claudication symptoms. ?? Diet has been prudent. Pt has been exercising. Weight has not significantly changed. ?? Lipid profile was reviewed. No changes in his antilipid regimen will be made. Medication compliance was discussed. ?? The concept of INSULIN RESISTANCE and its' relationship to increased CARDIOVASCULAR RISK was discussed. ?? The benefit of EXERCISE and DIET QUALITY was emphasized. ?? The last A1c was 6.0%. Magnus monofilament exam of the feet is normal The pt is seen in followup of ALLERGIC RHINITIS. ?? 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 ?? The pt has had no sinus surgery, and does have obstructive disease. No snoring or issues with apnea. Has had only rare nose bleeds. ?? The pt has no issues with hearing. The pt has no episodic vertigo, or difficulties with pressurechanges when flying. The pt does not see an ENT. ?? The pt has no issues with cerumen impaction. No issues with hacky cough, hoarseness, or GERD. Nosore throats. The patient is concerned regarding progressive discomfort involving the RIGHT KNEE. ?? The PAIN is most severe in the AM when first getting up, when walking, climbing and descending stairs, and when getting out of a chair. ?? The pain will sometimes wake the patient at night. ?? The KNEE will swell when overused. ?? The patient has had arthroscopy in the past, and also has had cortisone injections. ?? The patient last saw an biochemistry specialist two years ago. ?? The knee does not give out or lock. ?? The patient uses NSAIDS, ACETAMINOPHEN, and LOCAL ICE and HEAT to relieve the pain at times. A total of 25 minutes was spent on examination and counseling regarding this office visit, with greater than 50% face to face counseling. Have reviewed patients medications for changes and refills ifnecessary. I have reviewed the patient's medical history in detail and updated the computerized patient record. OBJECTIVE: BP 128/70 Pulse 84 Resp 16 Wt 73.846 kg (162 lb 12.8 oz) BMI 27.09 kg/m2 General appearance: alert, cooperative, no distress Heart: regular rhythm, normal S1 and S2, without murmurs, rubs or gallops Lungs: breath sounds normal and symmetric; no rales or wheezes Abdomen: normal bowl sounds; no palpable organomegaly or masses Extremities: NO edema. Rt. Knee is arthritic in appearance with valgus deformity. Neuro: Sensory-Monofilament performed on bare feet is negative. Vibratory is negative. Motor function is intact. DTR's are present and symmetrical. Gait and balance are satisfactory ASSESSMENT: Encounter Diagnoses Name Primary? Hypertension Yes ??? Hyperlipidemia ??? Insulin resistance ??? Allergic rhinitis ??? Hyperuricemia, drug-induced, asymptomatic ??? Impaired fasting glucose ??? Other vitamin B12 deficiency anemia ??? Unspecified essential hypertension ??? Unspecified hypothyroidism ??? Vitamin D deficiency ??? Mixed hyperlipidemia ??? Primary osteoarthritis of both knees PLAN: Orders Placed This Encounter ??? CBC W AUTO DIFFERENTIAL ??? COMPREHENSIVE METABOLIC PANEL ??? HEMOGLOBIN A1C ??? LIPID PROFILE ??? TSH ??? URIC ACID BLOOD ??? URINALYSIS ROUTINE AUTO ??? VITAMIN B12 FOLATE PANEL ??? VITAMIN D 25-HYDROXY ??? lisinopril (PRINIVIL; ZESTRIL) 40 MG tablet Sig: Take 1 Tab by mouth once daily. Dispense: 90 Tab Refill: 3 documented in this encounter Plan of Treatment Upcoming Encounters Date Type Department Care Team (Late st Contact Info) Description 06/29/2024 10:00 AM CDT Office Visit [facility] - Internal Medicine [facility] [address] Tamia Brooks MD [address] [place] [phone] documented as of this encounter Procedures Procedure Name Priority Date/Time Associated Diagnosis Comments URINALYSIS MICROSCOPIC ONLY REFLEXED Routine 08/28/2013 8:48 AM CDT Unspecified essential hypertension URIC ACID BLOOD Routine 08/28/2013 8:48 AM CDT Hyperuricemia, drug-induced, asymptomatic URINALYSIS REFLEX TO MICROSCOPIC NO CULTURE Routine 08/28/2013 8:48 AM CDT Hypertension HEMOGLOBIN A1C Routine 08/28/2013 8:48 AM CDT Impaired Fasting Glucose VITAMIN D 25-HYDROXY Routine 08/28/2013 8:48 AM CDT Vitamin D deficiency CBC W AUTO DIFFERENTIAL Routine 08/28/2013 8:48 AM CDT Hypertension COMPREHENSIVE METABOLIC PANEL Routine 08/28/2013 8:48 AM CDT Hypertension VITAMIN B12 FOLATE PANEL Routine 08/28/2013 8:48 AM CDT Other vitamin B12 deficiency anemia TSH Routine 08/28/2013 8:48 AM CDT Unspecified hypothyroidism LIPID PROFILE Routine 08/28/2013 8:48 AM CDT Hyperlipidemia documented in this encounter Results * URINALYSIS MICROSCOPIC ONLY REFLEXED (PO REF LAB) (08/28/2013 8:48 AM CDT) WBC UA 0-5 0 - 5 /hpf [...] 1:09 PM CDT Narrative Resulting Agency Comment [facility] ??[facility] [phone] Jhonathan Fisher MD LAB - URINALYSIS OR DERABLES [facility] INSURANCE BILL * (ABNORMAL) VITAMIN D 25-HYDROXY (08/28/2013 8:48 AM CDT) Vitamin D, 25 Hydroxy 25.6(L) 30.0 - 100.0 ng/mL [facility] INSURANCE BILL Comment: Vitamin D deficiency has been defined by the [employer] of [employer] and an Endocrine Society practice guideline as a level of serum 25-OH vitamin D less than 20 ng/mL (1,2). The Endocrine Society went on to further define vitamin D insufficiency as a level between 21 and 29 ng/mL (2). 1. IOM ([employer] of Medicine). 2010. Dietary reference ?? intakes for calcium and D. [place]: The ?? National Academies Press. 2. Jose MF, Melia SAN, Marcelo CAMPUZANO, et al. ?? Evaluation, treatment, and prevention of vitamin D ?? deficiency: an Endocrine Society clinical practice ?? guideline. JCEM. 2010; 96(7):1911-30. Blood specimen (specimen) BLOOD SPECIMEN / Unknown 08/28/2013 8:48 AM CDT 08/28/2013 1:09 PM CDT Narrative Resulting Agency Comment [address] ??[facility] [phone] Jhonathan Fisher MD LAB - CHEMISTRY ORD ERABLES [facility] INSURANCE BILL * VITAMIN B12 FOLATE PANEL (08/28/2013 8:48 AM CDT) Vitamin B12 383 211 - 946 pg/mL [facility] INSURANCE BILL Folate 13.2 >3.0 ng/mL [facility] INSURANCE BILL Comment: A serum folate concentration of less than 3.1 ng/mL is considered to represent clinical deficiency. Blood specimen (specimen) BLOOD SPECIMEN / Unknown 08/28/2013 8:48 AM CDT 08/28/2013 1:09 PM CDT Narrative Resulting Agency Comment [facility] [employer] ??[facility] [phone] Jhonathan Fisher MD LAB - CHEMISTRY ORD ERABLES [facility] INSURANCE BILL * URINALYSIS ROUTINE AUTO (08/28/2013 8:48 AM CDT) Pathologist [facility] Specific [place] UA 1.016 1.005 - 1.030 [facility] INSURANCE [...] 1:09 PM CDT Narrative Resulting Agency Comment [facility] ??[facility] [phone] Jhonathan Fisher MD LAB - URINALYSIS OR DERABLES Performing Organization Address City/[facility] [address]/[facility] Co de Phone Number [facility] INSURANCE BILL * URIC ACID BLOOD (08/28/2013 8:48 AM CDT) Uric Acid 5.1 2.5 - 7.1 mg/dL [facility] INSURANCE BILL Comment:Therapeutic target f or gout patients: <6.0 Blood specimen (specimen) BLOOD SPECIMEN / Unknown 08/28/2013 8:48 AM CDT 08/28/2013 1:09 PM CDT Narrative Resulting Agency Comment [address] ??[facility] [phone] Jhonathan Fisher MD LAB - CHEMISTRY ORD ERABLES Performing Organization Address [facility] [address]/[facility] de Phone Number [facility] INSURANCE BILL * TSH (08/28/2013 8:48 AM CDT) TSH 2.440 0.450 - 4.500 uIU/mL [facility] INSURANCE BILL Comment NOT NEEDED [facility] INSURANCE BILL Comment:Ancillary determined the test is not needed Blood specimen (specimen) BLOOD SPECIMEN / Unknown 08/28/2013 8:48 AM CDT 08/28/2013 1:09 PM CDT Narrative Resulting Agency Comment [address] ??[facility] [phone] Jhonathan Fisher MD LAB - CHEMISTRY ORD ERABLES Performing Organization Address City/[facility] [address]/ZIP Co de Phone Number [facility] INSURANCE BILL * (ABNORMAL) LIPID PROFILE (08/28/2013 8:48 AM CDT) Cholesterol 190 100 - 199 mg/dL [facility] INSURANCE BILL Triglycerides 182(H) 0 - 149 mg/dL [facility] INSURANCE BILL HDL Cholesterol 49 >39 mg/dL [facility] INSURANCE BILL Comment: According to ATP-III Guidelines, HDL-C >59 mg/dL is considered a negative risk factor for CHD. VLDL Calculated 36 5 - 40 mg/dL [facility] INSURANCE BILL LDL Calculated 105(H) 0 - 99 mg/dL [facility] INSURANCE BILL Comment NOT NEEDED [facility] INSURANCE BILL Comment:Ancillary determined the test is not needed Blood specimen (specimen) BLOOD SPECIMEN / Unknown 08/28/2013 8:48 AM CDT 08/28/2013 1:09 PM CDT Narrative Resulting Agency Comment [place] [phone] ??[facility] [phone] Jhonathan Fisher MD LAB - CHEMISTRY ORD ERABLES Performing Organization Address [facility] [address] [facility] Co de Phone Number [facility] INSURANCE BILL * (ABNORMAL) HEMOGLOBIN A1C (08/28/2013 8:48 AM CDT) Hemoglobin A1c 6.1(H) 4.8 - 5.6 % [facility] INSURANCE BILL Comment: ? . ? Increased risk for diabetes: 5.7 - 6.4 ? Diabetes: >6.4 ? Glycemic control for adults with diabetes: <7.0 Whole blood specimen (specimen) BLOOD SPECIMEN / Unknown 08/28/2013 8:48 AM CDT 08/28/2013 1:09 PM CDT Narrative Resulting Agency Comment [place] [phone] [facility] ??[facility] [phone] Jhonathan Fisher MD LAB - CHEMISTRY ORD Sport [employer] Performing Organization Address [facility] [address]/[facility] Co de Phone Number [facility] INSURANCE BILL * (ABNORMAL) COMPREHENSIVE METABOLIC PANEL (08/28/2013 8:48 AM CDT) Glucose 103(H) 65 - 99 mg/dL [facility] INSURANCE BILL BUN 18 8 - 27 mg/dL [facility] INSURANCE BILL Creatinine 1.08(H) 0.57 - 1.00 mg/dL [facility] INSURANCE BILL eGFR by MDRD 54(L) >59 mL/min/1.7 3 [facility] INSURANCE BILL eGFR by MDRD 62 >59 mL/min/1.7 3 [facility] INSURANCE BILL BUN/Creatinine Ratio 17 11 - 26 [facility] INSURANCE BILL Sodium 143 134 - 144 mmol/L [facility] INSURANCE BILL Potassium 4.7 3.5 - 5.2 mmol/L [facility] INSURANCE BILL Chloride 103 97 - 108 mmol/L [facility] INSURANCE BILL CO2 24 18 - 29 mmol/L [facility] INSURANCE BILL Comment:Please note refere nce interval change Calcium 9.5 8.6 - 10.2 mg/dL [facility] INSURANCE BILL Protein Total 6.7 6.0 - 8.5 g/dL [facility] INSURANCE BILL Albumin 4.5 3.6 - 4.8 g/dL [facility] INSURANCE BILL Globulin Total 2.2 1.5 - 4.5 g/dL [facility] INSURANCE BILL Albumin/Globulin Ratio 2.0 1.1 - 2.5 [facility] INSURANCE BILL Bilirubin Total 0.3 0.0 - 1.2 mg/dL [facility] INSURANCE BILL Alkaline Phosphatase 111 39 - 117 IU/L [facility] INSURANCE BILL AST 22 0 - 40 IU/L [facility] INSURANCE BILL ALT 15 0 - 32 IU/L [facility] INSURANCE BILL Blood specimen (specimen) BLOOD SPECIMEN / Unknown 08/28/2013 8:48 AM CDT 08/28/2013 1:09 PM CDT Narrative Resulting Agency Comment [facility] [address] ??[facility] [phone] Jhonathan Fisher MD LAB - CHEMISTRY ORD ERABLES [facility] INSURANCE BILL * CBC W AUTO DIFFERENTIAL (08/28/2013 8:48 AM CDT) WBC 6.0 3.4 - 10.8 x10E3/uL [facility] INSURANCE BILL RBC 4.50 3.77 - 5.28 x10E6/uL [facility] INSURANCE BILL Hemoglobin 12.8 11.1 - 15.9 g/dL [facility] INSURANCE BILL Hematocrit 39.3 34.0 - 46.6 % [facility] INSURANCE BILL MCV 87 79 - 97 fL [facility] INSURANCE BILL MCH 28.4 26.6 - 33.0 pg [facility] INSURANCE BILL MCHC 32.6 31.5 - 35.7 g/dL [facility] INSURANCE BILL RDW 14.2 12.3 - 15.4 % [facility] INSURANCE BILL Platelet Count 263 150 - 379 x10E3/uL [facility] INSURANCE BILL Comment:Please note refere nce interval change Granulocytes % 62 40 - 74 % [facility] INSURANCE BILL Lymphocytes % 23 14 - 46 % [facility] INSURANCE BILL Monocytes % 9 4 - 12 % [facility] INSURANCE BILL Eosinophils % 4 0 - 5 % [facility] INSURANCE BILL Basophils % 2 0 - 3 % [facility] INSURANCE BILL Immature Cells NOT NEEDED [facility] INSURANCE BILL Comment:Ancillary determined the test is not needed Granulocytes Absolute 3.7 1.4 - 7.0 x10E3/uL [facility] INSURANCE BILL Lymphocytes Absolute 1.4 0.7 - 3.1 x10E3/uL [facility] INSURANCE BILL Monocytes Absolute 0.5 0.1 - 0.9 x10E3/uL [facility] INSURANCE BILL Eosinophils Absolute 0.2 0.0 - 0.4 x10E3/uL [facility] INSURANCE BILL Basophils Absolute 0.1 0.0 - 0.2 x10E3/uL [facility] INSURANCE BILL Immature Granulocytes 0 0 - 2 % [facility] INSURANCE BILL Immature Granulocytes Absolute 0.0 0.0 - 0.1 x10E3/uL [facility] INSURANCE BILL nRBC NOT NEEDED [facility] INSURANCE BILL Comment:Ancillary determined the test is not needed Comment Hematology NOT NEEDED [facility] INSURANCE BILL Comment:Ancillary determined the test is not needed Blood specimen (specimen) BLOOD SPECIMEN / Unknown 08/28/2013 8:48 AM CDT 08/28/2013 1:09 PM CDT Narrative Resulting Agency Comment [facility] [address] ??[facility] [phone] Jhonathan Fisher MD LAB - HEMATOLOGY OR DERABLES [facility] INSURANCE BILL documented in this encounter Visit Diagnoses Diagnosis Hypertension- Primary Unspecified essential hypertension Hyperlipidemia Other and unspecified hyperlipidemia Insulin resistance Dysmetabolic Syndrome X Allergic rhinitis Hyperuricemia, drug-induced, asymptomatic Other abnormal blood chemistry Impaired fasting glucose Other vitamin B12 deficiency anemia Unspecified hypothyroidism Vitamin D deficiency Mixed hyperlipidemia Primary osteoarthritis of both knees Primary localized osteoarthrosis, lower leg documented in this encounter Care Teams Carbon Lamp Cleaner Relationship Specialty Start Date End Date Jhonathan Fisher MD PCP - General 08/09/08 05/05/14 Yohan Barros, DPCristofer [address] [facility] [address] [phone] Podiatry 05/24/13 documented as of this encounter
--- OUTSIDE RECORDS SUMMARY | 2024-03-22 20:13 | XMS_ITS | Encounter Summary ---
Author Organization [facility] Address [address] [facility] [place] [address] Care Team Providers Care Graphics Coordinator Name Role Phone Jhonathan Fisher MD Primary Care Provider Unav ailable Reason for Visit * Reason Onset Date Comments MEDICATION REFILL 04/06/2012 Encounter Details Date Type Department Care Team ([facility] Contact Info) Description 04/06/2012 Refill [facility] - Internal Medicine [address] [facility] [address] Jhonathan Fisher MD MEDICATION REFILL Social History [...] * Telephone Encounter - Lizbeth He - 04/06/2012 8:51 AM CST Requested Prescriptions Pending Prescriptions Disp Refills ??? atorvastatin (LIPITOR) 40 MG tablet 90 Tab 3 Sig: Take 1 Tab by mouth at bedtime. Last fill 03/09/2012 Next appt 04/27/2012 ES' REGISTRY DIRECTOR documented in this encounter Plan of Treatment Upcoming Encounters Date Type Department Care Team (Late Contact Info) Description 06/29/2024 10:00 AM CDT Office Visit [facility] - Internal Medicine [address] [facility] [address] [place] [address] Tamia Brooks MD [address] [place] [address] [address] [place] [address] documented as of this encounter Visit Diagnoses Not on filedocumented in this encounter Care Teams Graphics Coordinator Relationship Specialty Start Date End Date Jhonathan Fisher MD PCP - General 08/09/08 05/05/14 documented as of this encounter
--- OUTSIDE RECORDS SUMMARY | 2024-03-22 20:13 | XMS_ITS | Encounter Summary ---
Author Organization [facility] Address [address] [place] [address] Care Team Providers Care Underwriting Intern Name Role Phone Jhonathan Fisher MD Primary Care Provider Unav ailable Reason for Visit * Reason Comments Physical Encounter Details Date Type Department Care Team (Late st Contact Info) Description 04/27/2012 2:30 PM CONCRETE MIXER OPERATOR Office Visit [facility] - Internal Medicine [address] [place] [address] [place] [place] [address] Jhonathan Fisher MD Routine general medical examination at a health care facility 04/27/12 (Primary Dx); Routine general medical examination at a health care facility; Screening for diabetes mellitus; Screening for gout; Screening for hyperlipidemia; Screening for other and unspecified endocrine, nutritional, metabolic, and immunity disorders; Screening for thyroid disorder Social History Tobacco Use Types Packs/Day [...] Sign Reading Time Taken Comments Blood Pressure 124/70 04/27/2012 2:57 PM CONCRETE MIXER OPERATOR Pulse 72 04/27/2012 2:57 PM CONCRETE MIXER OPERATOR Temperature - - Respiratory Rate 14 04/27/2012 2:57 PM CONCRETE MIXER OPERATOR Oxygen Saturation - - Inhaled Oxygen Concentration - - Weight 73.5 kg (162 lb) 04/27/2012 2:57 PM CONCRETE MIXER OPERATOR Height 165.1 cm (5' 5 ) 04/27/2012 2:57 PM CONCRETE MIXER OPERATOR Body Mass Index 26.96 04/27/2012 2:57 PM CONCRETE MIXER OPERATOR documented in this encounter Patient Instructions * Patient Instructions* Jhonathan Fisher MD - 04/27/2012 6:39 PM CONCRETE MIXER OPERATOR Call if issues do not improve RETE MIXER OPERATOR documented in this encounter Progress Notes * Jhonathan Fisher MD - 04/27/2012 6:40 PM CST Patient Active Problem List Diagnosis ??? Allergic rhinitis ??? S/P hysterectomy ??? Hypertension ??? Hyperlipidemia ??? Routine general medical examination at a health care facility ??? Herpes zoster ??? Routine general medical examination at a health care facility 02/28/11 ??? Adductor tendonitis, right thigh 04/27/12 ??? Anhydrotic dermatitis of foot 04/27/12 ??? Routine general medical examination at a health care facility 04/27/12 Current Outpatient Prescriptions on File Prior to Visit Medication Sig Dispense Refill ??? Multiple Vitamins-Minerals (CENTRUM SILVER ULTRA WOMENS) TABS Take 1 Tab by mouth once daily. ??? Pseudoephedrine-Guaifenesin (MUCINEX D PO) Take 1 Tab by mouth once daily as needed. Family History Problem Relation Age of Onset ??? Coronary Artery Disease Father ??? Heart Failure Mother ??? Cancer Father lung Past Medical History Diagnosis Date ??? UTI ??? Allergic rhinitis 09/20/2008 ??? Hypertension 09/20/2008 ??? Hyperlipidemia 09/20/2008 ??? Herpes zoster 04/12/2010 ??? Adductor tendonitis, right thigh 04/27/12 04/27/2012 ??? Anhydrotic dermatitis of foot 04/27/12 04/27/2012 Past Surgical History Procedure Date ??? Hysterectomy ??? Endoscopy, colon, screening 06/23/06 History Substance Use Topics ??? Smoking status: Former Smoker Types: Cigarettes Quit date: 03/10/1990 ??? Smokeless tobacco: Never Used ??? Alcohol Use: Yes occ .Subjective: The patient is seen for an annual preventative exam. The patient has no issues with current problems. Discussed foot dermatitis, and hip adductor problem which will be treated with PT. The patient has many long standing diagnoses, but lives with these and has no active issues. We discussed, alcohol, drugs, exercise, sleep, personal hygiene, vitamins,diet, seat belts, and weight with appropriate counsuling. I have reviewed the past medical and surgical history, social history, family history, problem list, allergies and medication lists. ROS Constitutional: No unexplained fever, sweats. Eyes: Vision stable, no discomfort. Ears, nose, mouth, and throat: No mouth dryness, sores, hearing stable , no nasal discharge. Respiratory: No cough, dyspnea, wheezing, pleuritic pain. Cardiovascular: No exertional chest pain, palpitations, edema, claudication. Gastrointestinal: No bleeding, frequent reflux, dysphagia, change in bowels, pain. Genitourinary: No dysuria,frequency, bleeding. Skin: No recent rashes, or pruritus. Breast: No masses, pain or nipple discharge. Hematologic/lymphatic: No history of anemia. No abnormal bleeding or bruising. Musculoskeletal: No painful joints, myalgia, swelling, weakness. Neurological: Stable gait, no numbness, tingling, syncope, dizziness. Behavioral/Psych: No sleep disturbance, memory changes, depression. Endocrine: No fatigue or weight change. Objective: BP 124/70 Pulse 72 Resp 14 Wt 162 lb (73.483 kg) BMI 26.96 kg/m2 General appearance: alert, cooperative, no distress Eyes: sclera and conjunctiva clear, EOMI and PERRLA, lids normal Ears: canals clear, tympanic membranes normal, hearing intact to voice Nose: nares open; no septal deviation is noted Throat: no mucous membrane abnormalities Neck: range of motion is intact, no masses, thyroid not enlarged, no adenopathy Nodes: no cervical, axillary or inguinal adenopathy Back: no deformity or tenderness Chest: no tenderness Lungs: breath sounds normal and symmetric; no rales or wheezes Heart: regular rhythm, normal S1 and S2, without murmurs, gallops or rubs Abdomen: soft without mass, non-tender, with normal bowel sounds Extremities: no clubbing, cyanosis or edema Circulation: Carotid and pedal pulses are intact and symmetrical, aorta is not enlarged, no carotidbruits Joints: ranges of motion normal without inflammation, effusion or deformity Skin: no rashes or other abnormalities are noted Neuro: Sensory and motor are grossly intact. DTR's are symmetrical and normoactive. Balance is steady. Gait is satisfactory. Assessment: Encounter Diagnoses Name Primary? Routine general medical examination at a health care facility 04/27/12 Yes ??? Routine general medical examination at a health care facility ??? Screening for diabetes mellitus ??? Screening for gout ??? Screening for hyperlipidemia ??? Screening for other and unspecified endocrine, nutritional, metabolic, and immunity disorders ??? Screening for thyroid disorder Plan: Orders Placed This Encounter ??? LIPID PROFILE ??? VITAMIN B12 FOLATE PANEL ??? HEMOGLOBIN A1C ??? CBC W AUTO DIFFERENTIAL ??? COMPREHENSIVE METABOLIC PANEL ??? URINALYSIS ROUTINE AUTO ??? VITAMIN D 25-HYDROXY ??? TSH ??? URIC ACID BLOOD ??? AMB REFERRAL TO PHYSICAL THERAPY Standing Status: Future Number of Occurrences: Standing Expiration Date: 04/27/2013 Referral Type: Evaluate & Treat Referral Reason: Specialty Services Required Number of Visits Requested: 12 ??? LORazepam (ATIVAN) 0.5 MG tablet Sig: Take 1 Tab by mouth 3 times daily as needed. Dispense: 90 Tab Refill: 1 ??? DISCONTD: lisinopril (PRINIVIL; ZESTRIL) 40 MG tablet Sig: Take 1 Tab by mouth once daily. Dispense: 90 Tab Refill: 3 ??? DISCONTD: atorvastatin (LIPITOR) 40 MG tablet Sig: Take 1 Tab by mouth at bedtime. Dispense: 90 Tab Refill: 3 ??? DISCONTD: amLODIPine (NORVASC) 5 MG tablet Sig: Take 1 Tab by mouth once daily. Dispense: 90 Tab Refill: 3 ??? lisinopril (PRINIVIL; ZESTRIL) 40 MG tablet Sig: Take 1 Tab by mouth once daily. Dispense: 90 Tab Refill: 3 ??? atorvastatin (LIPITOR) 40 MG tablet Sig: Take 1 Tab by mouth at bedtime. Dispense: 90 Tab Refill: 3 ??? amLODIPine (NORVASC) 5 MG tablet Sig: Take 1 Tab by mouth once daily. Dispense: 90 Tab Refill: 3 ??? ammonium lactate (LAC-HYDRIN) 12 % lotion Sig: Apply to affected area 2 times daily. Dispense: 567 g Refill: 3 RETE MIXER OPERATOR documented in this encounter Plan of Treatment Upcoming Encounters Date Type Department Care Team (Late st Contact Info) Description 06/29/2024 10:00 AM CDT Office Visit [facility] - Internal Medicine [address] [place] [address] Tamia Brooks MD [address] [place] [address] [address] [place] [address] documented as of this encounter Procedures Procedure Name Priority Date/Time Associated Diagnosis Comments URINALYSIS MICROSCOPIC ONLY REFLEXED Routine 05/28/2012 8:59 AM CDT Rout[facility] URINALYSIS REFLEX TO MICROSCOPIC NO CULTURE Routine 05/28/2012 8:59 AM CDT Routine general medical examination at a [facility] 04/27/12 URIC ACID BLOOD Routine 05/28/2012 8:49 AM CDT Routine general medical examination at a [facility] care facility 04/27/12 Screening for gout HEMOGLOBIN A1C Routine 05/28/2012 8:49 AM CDT Routine general medical examination at a [facility] care facility 04/27/12 Screening for diabetes mellitus VITAMIN D 25-HYDROXY Routine 05/28/2012 8:49 AM CDT Routine general medical examination at a health care facility 04/27/12 Screening for other and unspecified endocrine, nutritional, metabolic, and immunity disorders CBC W AUTO DIFFERENTIAL Routine 05/28/2012 8:49 AM CDT Routine general medical examination at a [facility] care facility 04/27/12 COMPREHENSIVE METABOLIC PANEL Routine 05/28/2012 8:49 AM CDT Routine general medical examination at a [facility] care facility 04/27/12 VITAMIN B12 FOLATE PANEL Routine 05/28/2012 8:49 AM CDT Routine general medical examination at a health care facility 04/27/12 Screening for other and unspecified endocrine, nutritional, metabolic, and immunity disorders TSH Routine 05/28/2012 8:49 AM CDT Routine general medical examination at a [facility] care facility 04/27/12 Screening for thyroid disorder LIPID PROFILE Routine 05/28/2012 8:49 AM CDT Routine general medical examination at a [facility] care facility 04/27/12 Screening for hyperlipidemia documented in this encounter Results * (ABNORMAL) URINALYSIS MICROSCOPIC ONLY REFLEXED (PO REF LAB) (05/28/2012 8:59 AM CDT) WBC UA 0-5 0 - 5 /hpf [facility] INSURANCE BILL RBC UA 0-3 0 - 3 /hpf [facility] INSURANCE BILL Epithelial Cells (non renal) 0-10 0 - 10 /hpf [facility] INSURANCE BILL Epithelial Cells (renal) NOT NEEDED [facility] INSURANCE BILL Comment:Ancillary determined the test is not needed Casts ua Present(A) None seen /lpf [facility] INSURANCE BILL Casts UA Hyaline casts N/A [facility] INSURANCE BILL Crystals UA Present(A) N/A [facility] INSURANCE BILL Crystals UA Calcium Oxalate N/A [facility] INSURANCE BILL Mucus UA Present Not Estab. [facility] INSURANCE BILL Bacteria UA Many(A) None seen/Few [facility] INSURANCE BILL Yeast UA NOT NEEDED [facility] INSURANCE BILL Comment:Ancillary determined the test is not needed Trichomonas UA NOT NEEDED [facility] INSURANCE BILL Comment:Ancillary determined the test is not needed Comment Urine NOT NEEDED [facility] INSURANCE BILL Comment:Ancillary determined the test is not needed 05/28/2012 8:59 AM CDT 05/28/2012 1:13 PM CDT Narrative Resulting Agency Comment [facility] [address] ??[facility] [phone] Jhonathan Fisher MD LAB - URINALYSIS OR DERABLES [facility] INSURANCE BILL * URINALYSIS ROUTINE AUTO (05/28/2012 8:59 AM CDT) Specific [place] UA 1.022 1.005 - 1.030 [facility] INSURANCE BILL pH UA 6.0 5.0 - 7.5 [facility] INSURANCE BILL Color [...] OBTAINED BY CLEAN CATCH PROCEDURE / Unknown 05/28/2012 8:59 AM CDT 05/28/2012 1:13 PM CDT Narrative Resulting Agency [facility] [address] ??[facility] [phone] Jhonathan Fisher MD LAB - URINALYSIS OR DERABLES Performing Organization Address City/[facility] Co de Phone Number [facility] INSURANCE BILL * URIC ACID BLOOD (05/28/2012 8:49 AM CDT) Uric Acid 5.6 2.5 - 7.1 mg/dL [facility] INSURANCE BILL Comment:Therapeutic target f or gout patients: <6.0 Blood specimen (specimen) BLOOD SPECIMEN / Unknown 05/28/2012 8:49 AM CDT 05/28/2012 1:13 PM CDT Narrative Resulting Agency Comment [address] ??[facility] [phone] Jhonathan Fisher MD LAB - CHEMISTRY ORD ERABLES [facility] INSURANCE BILL * TSH (05/28/2012 8:49 AM CDT) TSH 3.370 0.450 - 4.500 uIU/mL [facility] INSURANCE BILL Blood specimen (specimen) BLOOD SPECIMEN / Unknown 05/28/2012 8:49 AM CDT 05/28/2012 1:13 PM CDT Narrative Resulting Agency Comment [facility] ??[facility] [phone] Jhonathan Fisher MD LAB - CHEMISTRY ORD ERABLES Performing Organization Address City/[facility]/ZIP Co de Phone Number [facility] INSURANCE BILL * (ABNORMAL) VITAMIN D 25-HYDROXY (05/28/2012 8:49 AM CDT) Vitamin D, 25 Hydroxy 26.1(L) 30.0 - 100.0 ng/mL [facility] INSURANCE BILL Comment: Vitamin D deficiency has been defined by the [place] of Medicine and an Endocrine Society practice guideline as a level of serum 25-OH vitamin D less than 20 ng/mL (1,2). The Endocrine Society went on to further define vitamin D insufficiency as a level between 21 and 29 ng/mL (2). 1. IOM ([place] of Medicine). 2010. Dietary reference ?? intakes for calcium and D. [place]: The ?? National Academies Press. 2. Jose MF, Melia SAN, Marcelo CAMPUZANO, et al. ?? Evaluation, treatment, and prevention of vitamin D ?? deficiency: an Endocrine Society clinical practice ?? guideline. JCEM. 2010; 96(7):1911-30. Blood specimen (specimen) BLOOD SPECIMEN / Unknown 05/28/2012 8:49 AM CDT 05/28/2012 1:13 PM CDT Narrative Resulting Agency Comment [facility] [address] ??[facility] [phone] Jhonathan Fisher MD LAB - CHEMISTRY ORD ERABLES [facility] INSURANCE BILL * (ABNORMAL) COMPREHENSIVE METABOLIC PANEL (05/28/2012 8:49 AM CDT) Glucose 95 65 - 99 mg/dL [facility] INSURANCE BILL BUN 19 8 - 27 mg/dL [facility] INSURANCE BILL Creatinine 1.06(H) 0.57 - 1.00 mg/dL [facility] INSURANCE BILL eGFR by MDRD 56(L) >59 mL/min/1.7 3 [facility] INSURANCE BILL eGFR by MDRD 64 >59 mL/min/1.7 3 [facility] INSURANCE BILL BUN/Creatinine Ratio 18 11 - 26 [facility] INSURANCE BILL Sodium 145(H) 134 - 144 mmol/L [facility] INSURANCE BILL Potassium 4.8 3.5 - 5.2 mmol/L [facility] INSURANCE BILL Chloride 107 97 - 108 mmol/L [facility] INSURANCE BILL CO2 24 20 - 32 mmol/L [facility] INSURANCE BILL Calcium 9.6 8.6 - 10.2 mg/dL [facility] INSURANCE BILL Protein Total 6.7 6.0 - 8.5 g/dL [facility] INSURANCE BILL Albumin 4.5 3.6 - 4.8 g/dL [facility] INSURANCE BILL Globulin Total 2.2 1.5 - 4.5 g/dL [facility] INSURANCE BILL Albumin/Globulin Ratio 2.0 1.1 - 2.5 [facility] INSURANCE BILL Bilirubin Total 0.4 0.0 - 1.2 mg/dL [facility] INSURANCE BILL Alkaline Phosphatase 97 25 - 165 IU/L [facility] INSURANCE BILL AST 18 0 - 40 IU/L [facility] INSURANCE BILL ALT 17 0 - 32 IU/L [facility] INSURANCE BILL Blood specimen (specimen) BLOOD SPECIMEN / Unknown 05/28/2012 8:49 AM CDT 05/28/2012 1:13 PM CDT Narrative Resulting Agency Comment [facility] [address] ??[facility] [phone] Jhonathan Fisher MD LAB - CHEMISTRY ORD ERABLES [facility] INSURANCE BILL * CBC W AUTO DIFFERENTIAL (05/28/2012 8:49 AM CDT) WBC 6.0 4.0 - 10.5 x10E3/uL [facility] INSURANCE BILL RBC 4.54 3.77 - 5.28 x10E6/uL [facility] INSURANCE BILL Hemoglobin 13.1 11.1 - 15.9 g/dL [facility] INSURANCE BILL Hematocrit 40.4 34.0 - 46.6 % [facility] INSURANCE BILL MCV 89 79 - 97 fL [facility] INSURANCE BILL MCH 28.9 26.6 - 33.0 pg [facility] INSURANCE BILL MCHC 32.4 31.5 - 35.7 g/dL [facility] INSURANCE BILL RDW 13.8 12.3 - 15.4 % [facility] INSURANCE BILL Platelet Count 298 140 - 415 x10E3/uL [facility] INSURANCE BILL Granulocytes % 61 40 - 74 % [facility] INSURANCE B[facility] Lymphocytes % 27 14 - 46 % [facility] INSURANCE BILL Monocytes % 7 4 - 13 % [facility] INSURANCE BILL Eosinophils % 3 0 - 7 % [facility] INSURANCE BILL Basophils % 2 0 - 3 % [facility] INSURANCE BILL Immature Cells NOT NEEDED [facility] INSURANCE BILL Comment:Ancillary determined the test is not needed Granulocytes Absolute 3.7 1.8 - 7.8 x10E3/uL [facility] INSURANCE BILL Lymphocytes Absolute 1.7 0.7 - 4.5 x10E3/uL [facility] INSURANCE BILL Monocytes Absolute 0.4 0.1 - 1.0 x10E3/uL [facility] INSURANCE BILL Eosinophils Absolute 0.2 [...] Blood specimen (specimen) BLOOD SPECIMEN / Unknown 05/28/2012 8:49 AM CDT 05/28/2012 1:13 PM CDT Narrative Resulting Agency Comment [facility] [address] ??[facility] [phone] Jhonathan Fisher MD LAB - HEMATOLOGY OR DERABLES [facility] INSURANCE BILL * (ABNORMAL) HEMOGLOBIN A1C (05/28/2012 8:49 AM CDT) [facility] Signature Hemoglobin A1c 6.0(H) 4.8 - 5.6 % [facility] INSURANCE BILL Comment: ? . ? Increased risk for diabetes: 5.7 - 6.4 ? Diabetes: >6.4 ? Glycemic control for adults with diabetes: <7.0 Whole blood specimen (specimen) BLOOD SPECIMEN / Unknown 05/28/2012 8:49 AM CDT 05/28/2012 1:13 PM CDT Narrative Resulting Agency Comment [address] ??[facility] [phone] Jhonathan Fisher MD LAB - CHEMISTRY ORD SpinTheCamBLES Performing Organization Address [facility] Co de Phone Number [facility] INSURANCE BILL * VITAMIN B12 FOLATE PANEL (05/28/2012 8:49 AM CDT) Vitamin B12 388 211 - 946 pg/mL [facility] INSURANCE BILL Folate 15.2 >3.0 ng/mL [facility] INSURANCE BILL Comment: A serum folate concentration of less than 3.1 ng/mL is considered to represent clinical deficiency. Blood specimen (specimen) BLOOD SPECIMEN / Unknown 05/28/2012 8:49 AM CDT 05/28/2012 1:13 PM CDT Narrative Resulting Agency Comment [address] ??[facility] [phone] Jhonathan Fisher MD LAB - CHEMISTRY SpectraFluidicsBLES Performing Organization Address City/[facility] Co de Phone Number [facility] INSURANCE BILL * (ABNORMAL) LIPID PROFILE (05/28/2012 8:49 AM CDT) Cholesterol 187 100 - 199 mg/dL [facility] INSURANCE BILL Triglycerides 142 0 - 149 mg/dL [facility] INSURANCE BILL HDL Cholesterol 53 >39 mg/dL [facility] INS[facility]ANCE B[facility] Comment: According to ATP-III Guidelines, HDL-C >59 mg/dL is considered a negative risk factor for CHD. VLDL Calculated 28 5 - 40 mg/dL [facility] INSURANCE BILL LDL Calculated 106(H) 0 - 99 mg/dL [facility] INSURANCE BILL Blood specimen (specimen) BLOOD SPECIMEN / Unknown 05/28/2012 8:49 AM CDT 05/28/2012 1:13 PM CDT Narrative Resulting Agency Comment [facility] [address] ??[facility] [phone] Jhonathan Fisher MD LAB - CHEMISTRY ORD ERABLES [facility] INSURANCE BILL documented in this encounter Visit Diagnoses Diagnosis Routine general medical examination at a health care facility 04/27/12- Primary Routine general medical examination at a health care facility Screening for diabetes mellitus Screening for gout Screening for hyperlipidemia Screening for lipoid disorders Screening for other and unspecified endocrine, nutritional, metabolic, and immunity disorders Screening for thyroid disorder documented in this encounter Care Teams Underwriting Intern Relationship Specialty Start Date End Date Jhonathan Fisher MD PCP - General 08/09/08 05/05/14 documented as of this encounter
--- OUTSIDE RECORDS SUMMARY | 2024-03-22 20:13 | XMS_ITS | Encounter Summary ---
Author Organization [facility] Address [address] [facility] [place] [address] Care Team Providers Care Pallet Assembler Name Role Phone Jhonathan Fisher MD Primary Care Provider Unav ailable Reason for Referral * Evaluate & Treat Specialty Diagnoses / Procedures Referred By Valeria ramesh Referred To Contact [facility] [address] [address] Braden Moreau MD [address] [address] Referral ID Status Reason Start Date Expiration Date V isits Requested Visits Authorized Specialty Services Required Reason for Visit * Reason Onset Date Comments Referral 11/29/2010 Encounter Details Date Type Department Care Team (Late st Contact Info) Description 11/29/2010 Telephone [facility] Medical [facility] - Internal Medicine [address] [place] [id number] Jhonathan Fisher MD Referral Social History Tobacco Use Types Packs/Day [...] Telephone Encounter - Bee Aldridge RN - 11/29/2010 9:44 AM CDT Referral faxed to jaquan Guillen, per pt request for appointment on December 20, 2010. documented in this encounter Plan of Treatment Upcoming Encounters Date Type Department Care Team (Late st Contact Info) Description 06/29/2024 10:00 AM CDT Office Visit [facility] - Internal Medicine [address] [facility] [address] [place] [phone] Tamia Brooks MD [address] [place] [phone] Scheduled Referrals Name Type Priority Associated Diagnoses Orde r Schedule AMB REFERRAL TO DERMATOLOGY Outpatient Referral Routine Rash and other nonspecific skin eruption Ordered: 11/29/2010 documented as of this encounter Visit Diagnoses Diagnosis Rash and other nonspecific skin eruption- Primary documented in this encounter Care Teams Pallet Assembler Relationship Specialty Start Date End Date Jhonathan Fisher MD PCP - General 08/09/08 05/05/14 documented as of this encounter
--- OUTSIDE RECORDS SUMMARY | 2024-03-22 20:13 | XMS_ITS | Encounter Summary ---
Author Organization [facility] Address [address] [facility] [place] [address] Care Team Providers Care Wiring Mechanic Name Role Phone Jhonathan Fisher MD Primary Care Provider Unav ailable Encounter Details Date Type Department Care Team (Latest Contact Info) Description 2011 11:03 AM REFRACTORY REPAIRER - 2011 11:59 PM [facility] [address] [place] [address] Lola Pantoja MD [address] [place] [address] Sleep Center Discharge Disposition: Home or Self Care Social [...] by mouth once daily. 90 Tab 3 02/28/2011 04/27/2012 atorvastatin (LIPITOR) 40 MG tablet Take 1 Tab by mouth at bedtime. 90 Tab 3 03/30/2011 04/06/2012 lisinopril (PRINIVIL; ZESTRIL) 40 MG tablet Take 1 Tab by mouth once daily. 90 Tab 1 02/28/2011 09/27/2011 LORazepam (ATIVAN) 0.5 MG tablet Take 1 Tab by mouth 3 times daily. 90 Tab 4 02/28/2011 01/08/2012 predniSONE (DELTASONE) 20 MG tablet Take by mouth. take 3 tabs for 3 days,2 tabs for 3 days,1 tab for 3 days 18 0 07/21/2009 10/02/2015 Pseudoephedrine-Guaifenes in (MUCINEX D PO) Take 1 Tab by mouth once daily as needed. 06/24/2014 vitamin D3 (VITAMIN D3) 1000 UNIT capsule One daily by mouth 100 Cap 6 03/30/2011 06/03/2011 documented as of this encounter Progress Notes * Document, Scanned - 05/02/2011 9:36 AM CST ACTORY REPAIRER * Lola Pantoja MD - 04/14/2011 10:58 AM CST Please let patient know we found a good pressure to treat his sleep apnea. If she has trouble getting adjusted to the pressure she should let me know. Set up on Autopap fixed to 12 cm H20, ramp of 6 cm H20 over 10 minutes, cflex o, heated humidifer, true blue small mask Follow up in 5-6 weeks with me ACTORY REPAIRER documented in this encounter Procedure Notes * Lola Pantoja MD - 04/14/2011 10:33 AM CST Polysomnogram with Positive Airway Pressure Titration Report Patient Name: Maura Watkins Date of : 1950 Study Date: Referring: Lola Pantoja MD Interpreting: Lola Pantoja MD Clinical History: Maura Watkins is a 61 y.o. female with a past medical history of HTN who was recently diagnosed with obstructive sleep apnea. PSG on 12/26/2010 showed AHI 2.1, RDI of 25 and supine dependence. This study was for the purpose of titration of positive airway pressure (PAP). Patient???s recent weight is 158 lbs. Technical Summary: At least 6 channels were used for EEG and 2 were used for electro-oculograms. Thoracic and abdominal respiratory effort belts were used. Limb movement was monitored by 2 channels over the anterior tibialis muscles. There were snoring, and position sensors and an oxygen probe was used. ECG was monitored with 1-2 leads. Sleep Architecture: Total recording time was 480 minutes with lights out at 10:08pm and lights on at 6:08am. Total sleep time was 413 minutes for a sleep efficiency of 86%. Sleep latency was 29.5 minutes. REM sleep was present with a latency of 89 minutes. The patient had 18% stage N1 sleep, 57.4% stage N2 sleep, 0% stage N3 sleep, and 24.6% stage REM sleep. Wake after sleep onset was 7.5 minutes. No EEG abnormalities were noted on limited montage EEG. There were 0 periodic limb movements per hour of sleep and these resulted in 0 arousals per hour. There were 13.6 spontaneous arousals per hour of sleep. EKG monitoring revealed baseline sinus rhythm with no significant abnormalities noted. Positive Airway Pressure Titration: Continuous Positive Airway Pressure (CPAP) settings from 4 cm H20 to 12 cmH20 were tested. A pressure of 12 cm H20 was found to be best tested. Recording at this pressure continued for 246.7 minutes of sleep. The patient slept in the supine and lateral positions. At this pressure, there was 76.5 minutes of REM sleep with adequateminutes in the supine position. At the best tested pressure, the AHIwas 1.9 (all from central apneas) and the RDI was 7.0 and oxygen saturation remained >= 90%. At a pressure of 9 cm H20 there was lateral REM sleep with adequate control. There was minimal supine NREM sleep with continued snoring and some RERAs. Interpretation: Titration of CPAP documented that this is an effective treatment for the patient???s obstructive sleep apnea, with the best tested pressure being 12 cm H20. Recommendations: I recommend that patient be set up on AutoPAP initially fixed to 12 cm H20. Diagnosis: 327.23 Lola Pantoja MD [facility] Diplomate of the [place] [employer] and Neurology Board eligible for the [place] [employer] ACTORY REPAIRER documented in this encounter Miscellaneous Notes * Miscellaneous Scans - Document, Scanned - 05/02/2011 9:09 AM CST ACTORY REPAIRER * Miscellaneous Scans - Document, Scanned - 05/01/2011 8:24 AM CST ACTORY REPAIRER documented in this encounter Plan of Treatment Upcoming Encounters Date Type Department Care Team (Late st Contact Info) Description 06/29/2024 10:00 AM CDT Office Visit [facility] - Internal Medicine [address] [phone] Tamia Brooks MD [address] [place] [phone] documented as of this encounter Visit Diagnoses Diagnosis Hypersomnia with sleep apnea, unspecified documented in this encounter Care Teams Wiring Mechanic Relationship Specialty Start Date End Date Jhonathan Fisher MD PCP - General 08/09/08 05/05/14 documented as of this encounter
--- OUTSIDE RECORDS SUMMARY | 2024-03-22 20:13 | XMS_ITS | Encounter Summary ---
Author Organization [facility] Address [address] [facility] [place] [address] Care Team Providers Care Transmission Maintenance Supervisor Name Role Phone Jhonathan Fisher MD Primary Care Provider Unav ailable Reason for Visit * Reason Comments Hypertension Encounter Details Date Type Department Care Team (Late st Contact Info) Description 09/23/2011 10:00 AM CDT Office Visit [facility] Medical [facility] - Internal Medicine [address] [place] [address] [place] [address] Jhonathan Fisher MD Hypertension (Primary Dx); Hyperlipidemia; Allergic rhinitis Social History Tobacco Use Types Packs/Day Years [...] Sign Reading Time Taken Comments Blood Pressure 124/76 09/23/2011 10:18 AM CDT Pulse 76 09/23/2011 10:18 AM CDT Temperature - - Respiratory Rate 14 09/23/2011 10:1 8 AM CDT Oxygen Saturation - - Inhaled Oxygen Concentration - - Weight 74.3 kg (163 lb 12.8 oz) 012 10:18 AM CDT Height 165.1 cm (5' 5 ) 09/23/2011 10:1 8 AM CDT Body Mass Index 27.26 09/23/2011 10:18 AM CDT documented in this encounter Patient Instructions * Patient Instructions* Jhonathan Fisher MD - 09/24/2011 8:09 PM CDT Call if issues do not improve documented in this encounter Progress Notes * Jhonathan Fisher MD - 09/24/2011 8:10 PM CDT Patient Active Problem List Diagnoses ??? Allergic rhinitis ??? S/P hysterectomy ??? Hypertension ??? Hyperlipidemia ??? Routine general medical examination at a health care facility ??? Herpes zoster ??? Routine general medical examination at a health care facility 02/28/11 Current Outpatient Prescriptions on File Prior to Visit Medication Sig Dispense Refill ??? Multiple Vitamins-Minerals (CENTRUM SILVER ULTRA WOMENS) TABS Take 1 Tab by mouth once daily. ??? atorvastatin (LIPITOR) 40 MG tablet Take [...] mouth 3 times daily. 90 Tab 4 SUBJECTIVE: the pt is seen in follow up of HTN, HYPERLIPIDEMIA, and ANXIETY. Weight has been an issue with inactivity and eating as the reason. We discussedd the importance of exercise and daily stretching. pt is taking medications as instructed, no medication side effects noted, no TIA's, no chest pain on exertion, no dyspnea on exertion, no swelling of ankles, no orthostatic dizziness or lightheadedness, no orthopnea or paroxysmal nocturnal dyspnea, no palpitations, no intermittent claudication symptoms.Long discussion regarding quality of intake and need dto increase eating at home and less eating out. A total of 25 minutes was spent on examination and counseling regarding this office visit, with greater than 50% face to face counseling. Have reviewed patients medications for changes and refills if necessary. I have reviewed the patient's medical history in detail and updated the computerized patient record. OBJECTIVE: BP 124/76 Pulse 76 Resp 14 Wt 163 lb 12.8 oz (74.299 kg) BMI 27.26 kg/m2 General appearance: alert, cooperative, no distress Heart: regular rhythm, normal S1 and S2, without murmurs, rubs or gallops Lungs: breath sounds normal and symmetric; no rales or wheezes Abdomen: normal bowl sounds; no palpable organomegaly or masses Extremities: no clubbing, cyanosis or edema ASSESSMENT: Encounter Diagnoses Name Primary? Hypertension Yes ??? Hyperlipidemia ??? Allergic rhinitis PLAN: Orders Placed This Encounter ??? mometasone (ELOCON) 0.1 % cream Sig: Apply to affected area once daily. Dispense: 45 g Refill: 2 ??? betamethasone dipropionate (DIPROSONE) 0.05 % cream Sig: Apply to affected area 2 times daily. Dispense: 45 g Refill: 2 documented in this encounter Plan of Treatment Upcoming Encounters Date Type Department Care Team (Late st Contact Info) Description 06/29/2024 10:00 AM CDT Office Visit [facility] - Internal Medicine [address] [phone] Tamia Brooks MD [address] [phone] documented as of this encounter Visit Diagnoses Diagnosis Hypertension- Primary Unspecified essential hypertension Hyperlipidemia Other and unspecified hyperlipidemia Allergic rhinitis Allergic rhinitis, cause unspecified documented in this encounter Care Teams Transmission Maintenance Supervisor Relationship Specialty Start Date End Date Jhonathan Fisher MD PCP - General 08/09/08 05/05/14 documented as of this encounter
--- OUTSIDE RECORDS SUMMARY | 2024-03-22 20:13 | XMS_ITS | Encounter Summary ---
Author Organization [facility] Address [address] [place] [address] Care Team Providers Care Corporate Travel Consultant Name Role Phone Jhonathan Fisher MD Primary Care Provider Unav ailable Encounter Details Date Type Department Care Team (Latest Contact Info) Description 12/26/2010 12:01 AM CDT - 12/26/2010 11:59 PM CDT Hospital Encounter [facility] [address] [place] [address] Lola Pantoja MD [address] [place] [address] Sleep Center Discharge Disposition: Home or Self [...] by mouth once daily. 30 Tab 5 11/02/2010 02/28/2011 atorvastatin (LIPITOR) 10 MG tablet Take 1 Tab by mouth at bedtime. 90 Tab 3 11/02/2010 02/28/2011 lisinopril (PRINIVIL; ZESTRIL) 40 MG tablet Take 1 Tab by mouth once daily. 90 Tab 3 11/02/2010 02/28/2011 LORazepam (ATIVAN) 0.5 MG tablet Take 1 Tab by mouth 3 times daily. 90 Tab 4 11/02/2010 02/28/2011 predniSONE (DELTASONE) 20 MG tablet Take by mouth. take 3 tabs for 3 days,2 tabs for 3 days,1 tab for 3 days 18 0 07/21/2009 10/02/2015 vitamin D, ergocalciferol, (DRISDOL) 34126 UNIT capsule Take 1 Cap by mouth every 7 days. 12 Cap 3 11/02/2010 02/28/2011 documented as of this encounter Progress Notes * Document, Scanned - 01/07/2011 6:20 AM CDT documented in this encounter Procedure Notes * Lola Pantoja MD - 12/28/2010 1:02 PM CDT All Night Polysomnogram Report Patient Name: Maura Watkins Date of : 1950 Study Date: 12/26/2010 Clinical History: Maura Watkins is a 60 y.o. female with a past medical history of HTN who complains of snoring, waking up gasping for air and witnessed apneas. Patient's BMI is 27.4. Technical Summary: At least 6 channels were used for EEG and 2 were used for electro-oculograms. Respiratory monitoring was done using pressure transducer, oral thermistor, and thoracic and abdominal respiratory effortbelts. Limb movement was monitored by 2 channels over the anterior tibialis muscles. There were snoring, and position sensors and an oxygen probe was used. ECG was monitored with 2-3 leads. Sleep Architecture: Total recording time was 476 minutes with lights out at 10:13pm and lights on at 6:09am. Total sleep time was 309 minutes for a sleep efficiency of 64.9%. Sleep latency was 67.5 minutes. REM sleep was present with a latency of 246.0 minutes. The patient had 27.8% stage N1 sleep, 51.6% stage N2 sleep, 0% stage N3 sleep, and 20.6% stage REM sleep. Wake after sleep onset was 99.5 minutes. No EEG abno rmalities were noted on limited montage EEG. There were 0 periodic limb movements per hour of sleep and these resulted in 0 arousals per hour. There were 19.6 spontaneous arousals per hour of sleep. There was mild snoring noted mainly in the supine and less so in prone position. EKG monitoring revealed baseline sinus rhythm with no significant abnormalities noted. Respiratory Analysis: There were 6 obstructive apneas, 2 mixed apneas, 3 central apneas, 2 hypopneas (using 4% oxygen desaturation rule) with an apnea-hypopnea index (AHI) of 2.1 events per hour. There were 118 respiratory effort related arousals (RERAs) with a respiratory disturbance index, which includes apneas, hypopneas, and RERAs (RDI) of 25.0 events per hour. The patient slept for 127.9 minutes in the supine position with an AHI of 4.69 events per hour and RDI of 23.9. The patient slept for 141 minutes in the lateral position with an AHI of 0 events per hour and RDI of 1.7.The patient slept for 40 minutes inthe supine position with an AHI of 1.5 events per hour and RDI of 3.0. REM AHI was 2.8. There was both supine and lateral REM sleep. The mean oxygen saturation while awake was 96%, while asleep 95%. The lowest oxygen saturation during sleep was 88%. This was in the supine position. 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 A positive airway pressure (PAP) titration was not performed due to the relatively low frequency of respiratory events during the first portion of the night. Recommendations: CPAP titration versus strict lateral position therapy, along with weight loss. Diagnosis: 780.57 Lola Pantoja MD [facility] Diplomate of the [place] [employer] of Psychiatry and Neurology Board eligible for the [place] Board of Sleep Medicine ; documented in this encounter Miscellaneous Notes * Miscellaneous Scans - Document, Scanned - 01/09/2011 1:27 PM CDT * Miscellaneous Scans - Document, Scanned - 01/06/2011 11:32 AM CDT * Miscellaneous Scans - Document, Scanned - 01/06/2011 10:00 AM CDT * Miscellaneous Scans - Document, Scanned - 01/06/2011 9:33 AM CDT documented in this encounter Plan of Treatment Upcoming Encounters Date Type Department Care Team (Late st Contact Info) Description 06/29/2024 10:00 AM CDT Office Visit [facility] - Internal Medicine [address] [facility] [address] [place] [phone] Tamia Brooks MD [address] [place] [address] [place] [phone] documented as of this encounter Visit Diagnoses Diagnosis Hypersomnia with sleep apnea, unspecified documented in this encounter Care Teams Corporate Travel Consultant Relationship Specialty Start Date End Date Jhonathan Fisher MD PCP - General 08/09/08 05/05/14 documented as of this encounter
--- OUTSIDE RECORDS SUMMARY | 2024-03-22 20:13 | XMS_ITS | Encounter Summary ---
Author Organization [facility] Address [address] [facility] [place] [address] Care Team Providers Care Charter Driver Name Role Phone Yohan Barros DPM Unavailable [phone] Lemuel Hoang MD Primary Care Provider Unavailab le Reason for Visit * Reason Onset Date Comments Sleep Problem 07/18/2014 Encounter Details Date Type Department Care Team (Late st Contact Info) Description 07/18/2014 Telephone [facility] - Internal Medicine [address] [facility] [place] [address] [address] [place] [address] Lemuel Hoang MD RETIRED Sleep Problem Social History Tobacco Use Types Packs/Day [...] Telephone Encounter - Lizbeth Vasquez RN - 07/18/2014 1:44 PM CDT She voices understanding and acceptance of this advice and will call back if any further questions or concerns. * Telephone Encounter - Lemuel Hoang MD - 07/18/2014 1:12 PM CDT Stop the trazodone and can start mirtazapine (Remeron) at bedtime. Hopefully this will work better for her. Rx pended. Lemuel Hoang MD * Telephone Encounter - Lizbeth Vasquez RN - 07/18/2014 12:51 PM CDT States that she cannot take trazadone because it makes her hyper. Has not taken anything for sleep,but still has insomnia. Requesting a different kind of sleep aide. Difficulty falling asleep and then will only sleep for 4 hours at a time. Tired during the day. documented in this encounter Plan of Treatment Upcoming Encounters Date Type Department Care Team (Late st Contact Info) Description 06/29/2024 10:00 AM CDT Office Visit [facility] - Internal Medicine [address] [place] [address] [place] [phone] Tamia Brooks MD [address] [place] [phone] documented as of this encounter Goals Goal Patient Goal Type Associated Problems Recent Progress Patient-Stated? Author Blood Pressure < 140/90 Blood Pressure 130/70( 024 1:19 PM CDT) Lola Serna MA documented as of this encounter Visit Diagnoses Diagnosis Insomnia- Primary Insomnia, unspecified documented in this encounter Care Teams Charter Driver Relationship Specialty Start Date End Date Lemuel Hoang MD [address] [place] [phone] PCP - General Family Medicine 05/06/14 07/25/16 Yohan Barros DPM [address] [place] [phone] Podiatry 05/24/13 documented as of this encounter
--- OUTSIDE RECORDS SUMMARY | 2024-03-22 20:13 | XMS_ITS | Encounter Summary ---
Author Organization [facility] Address [address] [facility] [place] [address] Care Team Providers Care Jeep Mechanic Name Role Phone Jhonathan Fisher MD Primary Care Provider Unav ailable Reason for Visit * Reason Onset Date Comments Opened In Error 05/03/2010 Encounter Details Date Type Department Care Team (Late Contact Info) Description 05/03/2010 Telephone [facility] - Internal Medicine [address] [facility] [address] Jhonathan Fisher MD Opened In Error Social History Tobacco Use [...] 06/29/2024 10:00 AM CDT Office Visit [facility] - Internal Medicine [facility] [facility] [address] [place] [phone] Tamia Brooks MD [address] [place] [phone] documented as of this encounter Visit Diagnoses Not on filedocumented in this encounter Care Teams Jeep Mechanic Relationship Specialty Start Date End Date Jhonathan Fisher MD PCP - General 08/09/08 05/05/14 documented as of this encounter
--- OUTSIDE RECORDS SUMMARY | 2024-03-22 20:13 | XMS_ITS | Encounter Summary ---
Author Organization [facility] Address [address] [facility] [place] [address] Care Team Providers Care Staff Nuclear Medicine Technologist Name Role Phone Jhonathan Fisher MD Primary Care Provider Unav ailable Reason for Visit * Reason Onset Date Comments Medication Request 02/16/2010 Encounter Details Date Type Department Care Team (Late st Contact Info) Description 02/16/2010 Telephone [facility] - Internal Medicine [address] [place] [address] [place] [address] Jhonathan Fisher MD Medication Request Social History Tobacco Use Types [...] Miscellaneous Notes * Telephone Encounter - Natasha Ragland - 02/16/2010 4:00 PM CST Pt notified STRATEGIST * Telephone Encounter - Jhonathan Fisher MD - 02/16/2010 3:55 PM RFID STRATEGIST famvir 500 tid #[id number] STRATEGIST * Telephone Encounter - Elvia Bartholomew LPN - 02/16/2010 3:21 PM RFID STRATEGIST (Per ) started on Valtrex on 01-30-10 for Shingles on face. Those facial lesions now scabbed over. But still has some head pain + tired. Calls because new bumps showed up today in a line between belly button + hip,(and says they look just like the lesions that she had on her face. Patients ( a pharmacist ), said to ask for a medication ( that's stronger than Valtrex ), Famvir 500mg., one every 8 hours for 5 days. Asks for script for that. STRATEGIST documented in this encounter Plan of Treatment Upcoming Encounters Date Type Department Care Team (Late st Contact Info) Description 06/29/2024 10:00 AM CDT Office Visit [facility] - Internal Medicine [address] [place] [address] [place] [phone] Tamia Brooks MD [address] [place] [address] [place] [phone] documented as of this encounter Visit Diagnoses Not on filedocumented in this encounter Care Teams Staff Nuclear Medicine Technologist Relationship Specialty Start Date End Date Jhonathan Fisher MD PCP - General 08/09/08 05/05/14 documented as of this encounter
--- OUTSIDE RECORDS SUMMARY | 2024-03-22 20:13 | XMS_ITS | Encounter Summary ---
Author Organization [facility] Address [address] [facility] [place] [address] Care Team Providers Care Financial Coordinator Name Role Phone Yohan Barros DPM Unavailable [phone] Lemuel Hoang MD Primary Care Provider Unavailab le Reason for Referral * Evaluate & Treat (Routine) - Closed Specialty Diagnoses / Procedures Referred By Contismael t Referred To Contact Diagnoses Laryngitis, chronic Lemuel Hoang MD RETIRED Efrain Perkins MD [address] [place] [address] Referral ID Status Reason Start Date Expiration Date V isits Requested Visits Authorized [id number] Closed Specialty Services Required 09/05/2015 03/03/2016 1 1 Reason for Visit * Reason Comments Sinus Problem Encounter Details Date Type Department Care Team (Late st Contact Info) Description 09/05/2015 1:20 PM CDT Office Visit [facility] Medical [facility] - Internal Medicine [address] [facility] [address] [place], [place] [phone] Lemuel Hoang MD RETIRED Laryngitis, chronic (Primary Dx) Social History Tobacco Use Types [...] Reading Time Taken Comments Blood Pressure 122/72 09/05/2015 1:05 PM CDT Pulse 81 09/05/2015 1:05 PM CDT Temperature 36.8 ??C (98.2 ??F) 09/05/2015 1:05 PM CD T Respiratory Rate - - Oxygen Saturation 100% 09/05/2015 1:05 PM CDT Inhaled Oxygen Concentration - - Weight 74.4 kg (164 lb) 09/05/2015 1:05 PM CDT Height 162.6 cm (5' 4 ) 09/05/2015 1:05 PM CDT Body Mass Index 28.15 09/05/2015 1:05 PM CDT documented in this encounter Progress Notes * Lemuel Hoang MD - 10/05/2015 5:17 PM CDT Encounter Date: 09/05/2015 ASSESSMENT/PLAN: 1. Laryngitis, chronic - not improving after 3 weeks of symptoms. Still with persistent hoarse voice. Most likely related to her allergies but will have evaluated by ENT. - AMB REFERRAL TO ENT; Future - Symptomatic therapy suggested: push fluids, rest, gargle warm salt water and use vaporizer or mist prn. Return as needed. HPI: Maura Watkins is a 65 y.o. female who complains of hoarseness for 3 weeks. At first she had nasal drainage and sinus congestion but did not clear with OTC decongestants and nasal steroid spray. She then took a 5-day course of azithromycin but still had no improvement. No sore throat now and minimal drainage. She denies a history of chest pain, chills, dizziness, fevers, myalgias, nausea, rash, swollen glands, vomiting, wheezing and cough PSFHx: Problem List, Medication List, History, and Allergies reviewed and updated. Patient Active Problem List Diagnosis ??? Allergic rhinitis ??? Hypertension, benign essential ??? Hyperlipidemia ??? Anhydrotic dermatitis of foot 04/27/12 ??? Physical exam, annual ??? Primary osteoarthritis of both knees ??? Prediabetes ??? Situational mixed anxiety and depressive disorder ??? CKD (chronic kidney disease) stage 3, GFR 30-59 ml/min ??? Chronic insomnia OBJECTIVE: BP 122/72 mmHg Pulse 81 Temp(Src) 98.2 ??F Wt 74.39 kg (164 lb) BMI 28.14 kg/m2 Gen: VS reviewed for visit. Patient alert, oriented, well-hydrated, in no acute distress. Hoarse voice noted. Ears: canals clear, TMs normal Nose: mucosa clear w/o discharge Throat: mild erythema w/o exudate Lymph: no adenopathy Lungs: Clear to auscultation and percussion. CV: Regular rate and rhythm. No murmurs. Pulses normal. Skin: no rashes Lemuel Hoang MD documented in this encounter Plan of Treatment Upcoming Encounters Date Type Department Care Team (Late st Contact Info) Description 06/29/2024 10:00 AM CDT Office Visit [facility] - Internal Medicine [address] [place] [address] [place] [phone] Tamia Brooks MD [address] [place] [phone] Scheduled Referrals Name Type Priority Associated Diagnoses Order Schedule AMB REFERRAL TO ENT Outpatient Referral Routine Laryngitis, chronic 1 Occurrences starting 09/05/2015 until 09/04/2016 documented as of this encounter Goals Goal Patient Goal Type Associated Problems Recent Progress Patient-Stated? Author Blood Pressure < 140/90 Blood Pressure 130/70( 024 1:19 PM CDT) No Lola Neff MA documented as of this encounter Visit Diagnoses Diagnosis Laryngitis, chronic- Primary Chronic laryngitis documented in this encounter Care Teams Financial Coordinator Relationship Specialty Start Date End Date Lemuel Hoang MD [address] [place] [phone] PCP - General Family Medicine 05/06/14 07/25/16 Yohan Barros DPM [address] [place] [phone] Podiatry 05/24/13 documented as of this encounter
--- OUTSIDE RECORDS SUMMARY | 2024-03-22 20:13 | XMS_ITS | Encounter Summary ---
Author Organization [facility] Address [address] [facility] [place] [address] Care Team Providers Care Sheet Metal Layout Mechanic Name Role Phone Yohan Barros DPM Unavailable [phone] Lemuel Hoang MD Primary Care Provider Unavailab le Reason for Visit * Reason Onset Date Comments Sinus Problem 08/17/2015 Encounter Details Date Type Department Care Team (Late st Contact Info) Description 08/17/2015 Telephone [facility] - Internal Medicine [address] [facility] [place] [address] [place] [address] Lemuel Hoang MD RETIRED Sinus Problem Social History Tobacco Use Types Packs/Day [...] Miscellaneous Notes * Telephone Encounter - Carmen Erazo - 08/17/2015 1:05 PM CDT Pt informed of Rx sent to her preferred pharmacy [facility] advised to call office if sx worsen. * Telephone Encounter - Lemuel Hoang MD - 08/17/2015 12:47 PM CDT Since still not better will give a Z-pack. Order entered. Lemuel Hoang MD * Telephone Encounter - Carmen Erazo - 08/17/2015 10:33 AM CDT See pc 08/10/15 pt sx are the same, pt feels the suggested OTC meds Nasacort and mucinex no help, pt afebrile requesting the an antibiotic please advise. documented in this encounter Plan of Treatment Upcoming Encounters Date Type Department Care Team (Late st Contact Info) Description 06/29/2024 10:00 AM CDT Office Visit [facility] - Internal Medicine [address] [place] [phone] Tamia Brooks MD [address] [place] [phone] documented as of this encounter Goals Goal Patient Goal Type Associated Problems Recent Progress Patient-Stated? Author Blood Pressure < 140/90 Blood Pressure 130/70( 024 1:19 PM CDT) Lola Serna MA documented as of this encounter Visit Diagnoses Not on filedocumented in this encounter Care Teams Sheet Metal Layout Mechanic Relationship Specialty Start Date End Date Lemuel Hoang MD [address] [place] [phone] PCP - General Family Medicine 05/06/14 07/25/16 Yohan Barros DPM [address] [place] [phone] Podiatry 05/24/13 documented as of this encounter
--- OUTSIDE RECORDS SUMMARY | 2024-03-22 20:13 | XMS_ITS | Encounter Summary ---
Author Organization [facility] Address [address] [facility] [place] [address] Care Team Providers Care Diversified Crops Supervisor Name Role Phone Jhonathan Fisher MD Primary Care Provider Unav ailable Reason for Referral * - Closed Specialty Diagnoses / Procedures Referred By Contac t Referred To Contact Diagnoses Unspecified sleep apnea Lola Pantoja MD [address] [place] [address] [facility] [address] [place] [phone] Referral ID Status Reason Start Date Expiration Date Visits Re quested Visits Authorized [id number] Closed 03/27/2011 09/23/2011 1 1 EAR PLANT EQUIPMENT OPERATOR Reason for Visit * Reason Comments Follow-up Encounter Details Date Type Department Care Team (Late st Contact Info) Description 03/27/2011 1:00 PM NUCLEAR PLANT EQUIPMENT OPERATOR Office Visit [facility] Medical [facility] - Pulmonology [address], [address] [place] [address] Lola Pantoja MD [address] [place], [place] [phone] Unspecified sleep apnea (Primary Dx) Social History Tobacco Use Types [...] Sign Reading Time Taken Comments Blood Pressure 140/90 03/27/2011 1:34 PM NUCLEAR PLANT EQUIPMENT OPERATOR Pulse 79 03/27/2011 1:34 PM NUCLEAR PLANT EQUIPMENT OPERATOR Temperature - - Respiratory Rate - - Oxygen Saturation 98% 03/27/2011 1:34 PM NUCLEAR PLANT EQUIPMENT OPERATOR Inhaled Oxygen Concentration - - Weight 70.8 kg (156 lb) 03/27/2011 1:34 PM NUCLEAR PLANT EQUIPMENT OPERATOR Height 162.6 cm (5' 4 ) 03/27/2011 1:34 PM NUCLEAR PLANT EQUIPMENT OPERATOR Body Mass Index 26.78 03/27/2011 1:34 PM NUCLEAR PLANT EQUIPMENT OPERATOR documented in this encounter Progress Notes * Lola Pantoja MD - 03/27/2011 3:59 PM CST Return Office Visit Chief Complaint: obstructive sleep apnea. History of Present Illness: Maura Watkins returns for follow up of obstructive sleep apnea. The patient had a polysomnogram on 12/26/2010. 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 The lowest oxygen desaturation was 88%. Supine AHI was 4.7,RDI was 23.9, lateral AHI was 0 and RDI of 1.7 I discussed the results with the patient over the phone and offered CPAP versus strict lateral positional therapy using a device. She opted to try lateral positional therapy. She presents today for follow up. She has not been doing lateral positional therapy. She continues to be symptomatic with excessive daytime sleepiness with an [place] sleepiness scale of 17/24. We dicussed treatment options she she would like to try CPAP. Plan: CPAP titration She is to avoid driving if sleepy I spent > 15 minutes with the patient with > 50% of the time spent counseling the patient. EAR PLANT EQUIPMENT OPERATOR documented in this encounter Plan of Treatment Upcoming Encounters Date Type Department Care Team (Late st Contact Info) Description 06/29/2024 10:00 AM CDT Office Visit [facility] - Internal Medicine [address] [facility] [address] [place] [phone] Tamia Brooks MD [facility] [facility] [address] [place] [phone] Scheduled Referrals Name Type Priority Associated Diagnoses Orde r Schedule AMB REFERRAL TO SLEEP STUDIES Outpatient Referral Routine Unspecified sleep apnea Ordered: 03/27/2011 documented as of this encounter Visit Diagnoses Diagnosis Unspecified sleep apnea- Primary documented in this encounter Care Teams Diversified Crops Supervisor Relationship Specialty Start Date End Date Jhonathan Fisher MD PCP - General 08/09/08 05/05/14 documented as of this encounter
--- OUTSIDE RECORDS SUMMARY | 2024-03-22 20:13 | XMS_ITS | Encounter Summary ---
Author Organization [facility] Address [address] [place] [address] Care Team Providers Care Solid Center Winder Name Role Phone Jhonathan Fisher MD Primary Care Provider Yohan Michael DPM Unavailable [phone] Encounter Details Date Type Department Care Team (Late Contact Info) Description 08/28/2013 Orders Only [facility] - Internal Medicine [address] [facility] [place] [address] Jhonathan Fisher MD Social History Tobacco Use Types Packs/Day Years [...] [facility] - Internal Medicine [facility] [facility] [address] [place] [phone] Tamia Brooks MD [address] [place] [phone] documented as of this encounter Procedures Procedure Name Priority Date/Time Associated Diagnosis Comments CVD REPORT 08/28/2013 8:48 AM CDT documented in this encounter Results * CVD REPORT (PO REF LAB) (08/28/2013 [...] RISK ASSESSMENT: National Heart, Lung, and Blood Jaroso's Third Report of the NCEP Expert Panel on Detection, Evaluation and Treatment of High Blood Cholesterol in Adults (ATP III) (2002. NIH publication 02-5215); Benjamín et al. Diabetes Care 2008; 31(4):811-82; Rudolph et al. Clin Chem 2009; 55(3):407-419; Sergio [place] et al. 2013 ACC/AHA guideline on the treatment of blood cholesterol to reduce atherosclerotic cardiovascular risk in adults: a report of the [place] College of Cardiology/[place] Heart Association Task Force on Practice Guidelines. Circulation 2013; 00:000-000. PDF Image Not applicable [facility] INSURANCE BILL 08/28/2013 8:48 AM CDT 08/28/2013 1:09 PM CDT Narrative Resulting Agency Comment [employer] [address] [place] [address] ??[facility] [phone] Jhonathan Fisher MD LAB - CHEMISTRY ORD ERABLES [facility] INSURANCE BILL documented in this encounter Visit Diagnoses Not on filedocumented in this encounter Care Teams Solid Center Winder Relationship Specialty Start Date End Date Jhonathan Fisher MD PCP - General 08/09/08 05/05/14 Yohan Barros DPM [address] [facility] [address] [place] [phone] Podiatry 05/24/13 documented as of this encounter
--- OUTSIDE RECORDS SUMMARY | 2024-03-22 20:13 | XMS_ITS | Encounter Summary ---
Author Organization [facility] Address [address] [facility] [place] [address] Care Team Providers Care Mechanism Inspector Name Role Phone Jhonathan Fisher MD Primary Care Provider Unav ailable Reason for Visit * Reason Onset Date Comments Update 05/01/2012 Encounter Details Date Type Department Care Team (Late st Contact Info) Description 05/01/2012 Telephone [facility] Medical [facility] - Internal Medicine [address] [place] [address] [place] [address] Jhonathan Fisher MD Update Social History Tobacco Use Types Packs/Day [...] Telephone Encounter - Jennifer Valverde LPN - 05/05/2012 10:39 AM JUNIOR HIGH SCHOOL PRINCIPAL My chart message sent to patient with info. OR HIGH SCHOOL PRINCIPAL * Telephone Encounter - Jhonathan Fisher MD - 05/04/2012 4:52 PM JUNIOR HIGH SCHO[employer] PRINCIPAL Have her see orthopedist. He can decide about imaging (MRI) when he sees the pt. If she needs a name Sergio Ryan OR HIGH SCHOOL PRINCIPAL * Telephone Encounter - Latonia Jade, RN - 05/04/2012 11:51 AM CST See note below. Pt also called. Physical therapist didn't think it was a muscle problem but thoughtis was capsular tear. Said she needs to see specialist or get some imaging. OR HIGH SCHOOL PRINCIPAL * Telephone Encounter - Jennifer Valverde LPN - 05/01/2012 1:45 PM CST Mary from home health calling they are unable to do any therapy on patient. She is not able to tolerate. They think she may have a hip capsule tear. They are sending you their notes over. OR HIGH SCHOOL PRINCIPAL documented in this encounter Plan of Treatment Upcoming Encounters Date Type Department Care Team (Late st Contact Info) Description 06/29/2024 10:00 AM CDT Office Visit [facility] Medical [facility] - Internal Medicine [address] [facility] [address] [place] [phone] Tamia Brooks MD [address] [place] [address] [place] [phone] documented as of this encounter Visit Diagnoses Not on filedocumented in this encounter Care Teams Mechanism Inspector Relationship Specialty Start Date End Date Jhonathan Fisher MD PCP - General 08/09/08 05/05/14 documented as of this encounter
--- OUTSIDE RECORDS SUMMARY | 2024-03-22 20:13 | XMS_ITS | Encounter Summary ---
Author Organization [facility] Address [address] [facility] [place] [address] Care Team Providers Care Casing Builder Name Role Phone Jhonathan Fisher MD Primary Care Provider Unav ailable Reason for Visit * Reason Onset Date Comments Results 12/28/2010 Encounter Details Date Type Department Care Team (Late st Contact Info) Description 12/28/2010 Telephone [facility] - Pulmonology [address], [address] [place] [address] Lola Pantoja MD [address] [facility] [address] [place], [place] [phone] Results Social History Tobacco Use Types Packs/Day [...] Miscellaneous Notes * Telephone Encounter - Lola Pantoja MD - 12/28/2010 12:41 PM CDT Left voicemail for patient to call back to discuss results of study. Spoke with patient about results of study. offered CPAP titration vs lateral positional therapy along with weight loss. Patient chose to try lateral positonal therapy first. Explained that she needs to use a device to ensure lateral position and having brochures re that mailed to patient. F/u 2-3 months. documented in this encounter Plan of Treatment Upcoming Encounters Date Type Department Care Team (Late st Contact Info) Description 06/29/2024 10:00 AM CDT Office Visit [facility] - Internal Medicine [address] [phone] Tamia Brooks MD [address] [place] [phone] documented as of this encounter Visit Diagnoses Not on filedocumented in this encounter Care Teams Casing Builder Relationship Specialty Start Date End Date Jhonathan Fisher MD PCP - General 08/09/08 05/05/14 documented as of this encounter
--- OUTSIDE RECORDS SUMMARY | 2024-03-22 20:13 | XMS_ITS | Encounter Summary ---
Author Organization [facility] Address [address] [facility] [place] [address] Care Team Providers Care Information Technology Project Manager Name Role Phone Yohan Barros DPM Unavailable [phone] Lemuel Hoang MD Primary Care Provider Unavailab le Reason for Visit * Reason Comments Follow-up Hypertension Encounter Details Date Type Department Care Team (Late st Contact Info) Description 01/06/2015 10:20 AM CDT Office Visit [facility] Medical [facility] - Internal Medicine [address] [facility] [address] [place], [place] [phone] Lemuel Hoang MD RETIRED Hypertension, benign essential (Primary Dx); CKD (chronic kidney disease) stage 3, GFR 30-59 ml/min (HCC); Hyperlipidemia; Chronic insomnia; Need for influenza vaccination Social History Tobacco [...] Sign Reading Time Taken Comments Blood Pressure 114/72 01/06/2015 10:21 AM CDT Pulse 62 01/06/2015 10:21 AM CDT Temperature 36.7 ??C (98.1 ??F) 01/06/2015 1 0:21 AM CDT Respiratory Rate - - Oxygen Saturation 98% 01/06/2015 10: 21 AM CDT Inhaled Oxygen Concentration - - Weight 67.9 kg (149 lb 12.8 oz) 015 10:21 AM CDT Height 162.6 cm (5' 4.02 ) 01/06/2015 1 0:21 AM CDT Body Mass Index 25.7 01/06/2015 10:21 AM CDT documented in this encounter Progress Notes * Lemuel Hoang MD - 01/09/2015 8:03 AM CST Encounter Date: 01/06/2015 ASSESSMENT/PLAN: 1. Hypertension, benign essential BP Readings from Last 3 Encounters: 01/06/15 114/72 07/08/14 122/82 06/24/14 132/74 - will decrease lisinopril dose and continue amlodipine 5 mg once daily - lisinopril (PRINIVIL; ZESTRIL) 20 MG tablet; Take 1 Tab by mouth once daily Dispense: 90 Tab; Refill: 1 2. CKD (chronic kidney disease) stage 3, GFR 30-59 ml/min Recent Labs Component Name 07/13/14 0847 08/28/13 0848 EGFR 38* 54* 3. Hyperlipidemia Recent Labs Component Name 07/13/14 0847 08/28/13 0848 CHOL 154 190 TRIG 78 182* HDL 58 49 LDLCALC 80 105* - continue atorvastatin 40 mg once daily 4. Chronic insomnia - now off of meds and is sleeping much better 5. Need for influenza vaccination - FLU VACCINE PRSV FREE INC ANTIGEN HIGH-DOSE - PCHG IMMUNIZATION ADMINISTRATION ONE VACCINE Return in about 6 months (around 07/08/2015), or as needed. HPI: Maura Watkins is a 64 y.o. female who presents for routine management of chronic conditions: hypertension, hyperlipidemia, and chronic insomnia She is doing well without complaints. She has stopped taking mirtazapine for sleep and is no longerusing lorazepam. She is now feeling much better and thinks she is sleeping better without the meds. Review of Systems Constitutional: Negative for malaise/fatigue [...] to Visit Medication Sig Dispense Refill ??? amLODIPine (NORVASC) 5 MG tablet Take 1 Tab by mouth once daily 90 Tab 1 ??? atorvastatin (LIPITOR) 40 MG tablet TAKE ONE TABLET BY MOUTH AT BEDTIME 90 Tab 3 ??? Multiple Vitamins-Minerals (CENTRUM SILVER ULTRA WOMENS) TABS Take 1 Tab by mouth once daily. No current facility-administered medications on file prior to visit. OBJECTIVE: BP 114/72 mmHg Pulse 62 Temp(Src) 98.1 ??F Wt 67.949 kg (149 lb 12.8 oz) BMI 25.70 kg/m2 Physical Exam Constitutional: She is oriented [...] content normal. Vitals reviewed. Lemuel Hoang MD HOUSE WORKER documented in this encounter Plan of Treatment Upcoming Encounters Date Type Department Care Team (Late st Contact Info) Description 06/29/2024 10:00 AM CDT Office Visit [facility] - Internal Medicine [address] [facility] [address] [place] [address] Tamia Brooks MD [address] [facility] [address] [place] [address] documented as of this encounter Goals Goal Patient Goal Type Associated Problems Recent Progress Patient-Stated? Author Blood Pressure < 140/90 Blood Pressure 130/70( 024 1:19 PM CDT) Lola Serna MA documented as of this encounter Visit Diagnoses Diagnosis Hypertension, benign essential- Primary Essential hypertension, benign CKD (chronic kidney disease) stage 3, GFR 30-59 ml/min (HCC) Chronic kidney disease, Stage III (moderate) Hyperlipidemia Other and unspecified hyperlipidemia Chronic insomnia Insomnia, unspecified Need for influenza vaccination Need for prophylactic vaccination and inoculation against influenza documented in this encounter Care Teams Information Technology Project Manager Relationship Specialty Start Date End Date Lemuel Hoang MD [address] [place] [phone] PCP - General Family Medicine 05/06/14 07/25/16 Yohan Barros DPM [address] [place] [phone] Podiatry 05/24/13 documented as of this encounter
--- OUTSIDE RECORDS SUMMARY | 2024-03-22 20:13 | XMS_ITS | Encounter Summary ---
Author Organization [facility] Address [address] [place] [address] Care Team Providers Care Oncology Rep Specialist Name Role Phone Jhonathan Fisher MD Primary Care Provider Yohan Michael DPM Unavailable [phone] Reason for Visit * Auth/Cert - Closed Specialty Diagnoses / Procedures Referred By Valeria ramesh Referred To Contact Diagnoses Special screening for malignant neoplasms, colon Procedures COLONOSCOPY SCREEN Referral ID Status Reason Start Date Expiration Date Visits Re quested Visits Authorized [id number] Closed 1 1 Encounter Details Date Type Department Care Team (Late st Contact Info) Description 11/05/2013 9:00 AM CDT - 11/05/2013 9:30 AM CDT Surgery [facility] - Endoscopy Services [address] [place] [id number] Jos Scott MD [address] [place] [id number] COLONOSCOPY SCREEN Surgery Details Date/Time Status Location OR Service Patient Class Case Class Case Type Trauma Case? 11/05/2013 9:00 AM Posted [facility] Endo 04 Gastroenterology Surgery Day Care Elective > 5 days Panel 1 Procedure LRB Anes Op Region Wound Class Comments COLONOSCOPY SCREEN N/A MAC Clean Conta minated Surgeon Surgeon Role Service Panel Jos Scott MD Primary Gastroenterology 1 documented in this [...] Sign Reading Time Taken Comments Blood Pressure 123/73 11/05/2013 10:05 AM CDT Pulse 52 11/05/2013 10:05 AM CDT Temperature - - Respiratory Rate - - Oxygen Saturation 100% 11/05/2013 10:05 AM CDT Inhaled Oxygen Concentration - - Weight 67.6 kg (149 lb) 11/05/2013 8:03 AM CDT Height 166.4 cm (5' 5.5 ) 11/05/2013 8:03 AM CDT Body Mass Index 24.42 11/05/2013 8:03 AM CDT documented in this encounter Medications at Time of Discharge Medication Sig Dispensed Refills Start Date End Date amLODIPine (NORVASC) 5 MG tablet Take 1 Tab by mouth once daily. 90 Tab 3 05/11/2013 02/07/2014 atorvastatin (LIPITOR) 40 MG tablet TAKE ONE TABLET BY MOUTH AT BEDTIME 90 Tab 2 04/28/2013 02/11/2014 lisinopril (PRINIVIL; ZESTRIL) 40 MG tablet Take 1 Tab by mouth once daily. 90 Tab 3 05/31/2013 06/03/2014 LORazepam (ATIVAN) 0.5 MG tablet Take 1 Tab by mouth 3 times daily as needed. 90 Tab 1 05/11/2013 11/23/2013 Multiple Vitamins-Minerals (CENTRUM SILVER ULTRA WOMENS) TABS Take 1 Tab by mouth once daily. 08/30/2020 predniSONE (DELTASONE) 20 MG tablet Take by mouth. take 3 tabs for 3 days,2 tabs for 3 days,1 tab for 3 days 18 0 07/21/2009 10/02/2015 Pseudoephedrine-Guaifene sin (MUCINEX D PO) Take 1 Tab by mouth once daily as needed. 06/24/2014 vitamin D3 (VITAMIN D3) 1000 UNIT capsule Take 1 Cap by mouth once daily. 100 Cap 6 10/26/2012 11/30/2013 documented as of this encounter H&P Notes * Jos Scott MD - 11/05/2013 8:44 AM CDT ENDOSCOPY PRE-PROCEDURE MEDICAL HISTORY & PHYSICAL Today's Date: 11/05/2013 8:44 AM Maura Watkins 63 y.o. female Date of Service: 11/05/13 BP 122/66 Pulse 57 Wt 149 lb BMI 24.41 kg/m2 History: Past Medical History Diagnosis Date ??? UTI ??? Allergic rhinitis 09/20/2008 ??? Hypertension 09/20/2008 ??? Hyperlipidemia 09/20/2008 ??? Herpes zoster 04/12/2010 ??? Adductor tendonitis, right thigh 04/27/12 04/27/2012 ??? Anhydrotic dermatitis of foot 04/27/12 04/27/2012 ??? Primary osteoarthritis of both knees 10/27/2012 ??? Insulin resistance 10/27/2012 Allergies Allergen Reactions ??? Darvon Nausea and/or Vomiting and Dizziness Prescriptions prior to admission Medication Sig Dispense Refill ??? lisinopril (PRINIVIL; [...] Tab by mouth once daily as needed. Current Facility-Administered Medications Medication Dose Route Frequency Provider Last Rate Last Dose ??? 0.9% NaCl infusion Intravenous pre-Procedure continuous Jos Scott MD 20 mL/hr at 11/05/13 0751 Physicial Exam: General appearance: alert, cooperative, no distress Heart: regular rhythm, normal S1 and S2, without murmurs, rubs or gallops Lungs: breath sounds normal and symmetric; no rales or wheezes Abdomen: soft without mass, non-tender, with normal bowel sounds Extremities: no clubbing, cyanosis or edema ASA Evaluation and Anesthesia Plan: Anesthesia administered per Anesthesia Department Indication(s) for Procedure: Colon Screen - high risk - brother with colon cancer Procedure Planned: Colonoscopy Jos Scott MD documented in this encounter Plan of Treatment Upcoming Encounters Date Type Department Care Team (Late st Contact Info) Description 06/29/2024 10:00 AM CDT Office Visit [facility] - Internal Medicine [address] [place] [address] Tamia Brooks MD [address] [place] [address] [place] [phone] documented as of this encounter Procedures Procedure Name Priority Date/Time Associated Diagnosis Comments COLONOSCOPY SCREEN 11/05/2013 5: 00 PM CDT Special screening for malignant neoplasms, colon ENDOSCOPY, COLON, SCREENING Routine 11/05/2013 9:10 AM CDT documented in this encounter Results * ENDOSCOPY, COLON, SCREENING (11/05/2013 9:10 AM [...] surveillance. ? - Call my office at [phone] if you have any questions. ? Procedure [...] without mention of complication CPT copyright 2013 [employer]. All rights reserved. The codes documented in this report are preliminary and upon master motorcycle technician review may be revised to meet current compliance requirements. ____ Jos Scott MD 11/05/2013 9:48 AM Number of Addenda: 0 Note Initiated On: 11/05/2013 9:10 AM [facility] 11/05/2013 9:10 AM CDT Jos Scott MD GI PROCEDURE PREETI [facility] Organization Address City/State/ZIP [place] Phone Number [facility] documented in this encounter Visit Diagnoses Diagnosis Special screening for malignant neoplasms, colon documented in this encounter Administered Medications Inactive Administered Medications - up to 3 most recent administrations Medication Order MAR Action Action Date Dose Rate Site 0.9% NaCl infusion at 20 mL/hr, Intravenous, PRE-PROCEDURE CONTINUOUS, Starting on Fri11/05/13 at 0745, Until Fri11/05/13 at 1122, Pre-procedure (GI) $ New Bag/Syringe 11/05/2013 7:51 AM CDT 2 0 mL/hr documented in this encounter Active and Recently Administered Medications Times are shown in CDT. Continuous Medication Order 11/03/2013 11/04/2013 11/05/2013 0.9% NaCl infusion (CANCELED) at 20 mL/hr, Intravenous, PRE-PROCEDURE CONTINUOUS, Starting on Fri11/05/13 at 0745, Until Fri11/05/13 at 1122, Pre-procedure (GI) 0751 ($ New Bag/Syri nge - Provider: Sherri Benton LPN) documented in this encounter Care Teams Oncology Rep Specialist Relationship Specialty Start Date End Date Jhonathan Fisher MD PCP - General 08/09/08 05/05/14 Yohan Barros DPM [address] [place] [address] [place] [phone] Podiatry 05/24/13 documented as of this encounter
--- OUTSIDE RECORDS SUMMARY | 2024-03-22 20:13 | XMS_ITS | Encounter Summary ---
Author Organization [facility] Address [address] [place] [address] Care Team Providers Care Anesthesiology Fellow Name Role Phone Jhonathan Fisher MD Primary Care Provider Yohan Michael DPM Unavailable [phone] Reason for Visit * Reason Comments Refill Request Encounter Details Date Type Department Care Team (Late Contact Info) Description 02/11/2014 Refill [facility] - Internal Medicine [address] [facility] [address] Jhonathan Fisher MD Refill Request Social History [...] Description 06/29/2024 10:00 AM CDT Office Visit [facility] - Internal Medicine [address] [phone] Tamia Brooks MD [address] [place] [phone] documented as of this encounter Goals Goal Patient Goal Type Associated Problems Recent Progress Patient-Stated? Author Blood Pressure < 140/90 Blood Pressure 130/70( 024 1:19 PM CDT) No Lola Neff MA documented as of this encounter Visit Diagnoses Not on filedocumented in this encounter Care Teams Anesthesiology Fellow Relationship Specialty Start Date End Date Jhonathan Fisher MD PCP - General 08/09/08 05/05/14 Yohan Barros DPM [address] [facility] [address] [place] [phone] Podiatry 05/24/13 documented as of this encounter
--- OUTSIDE RECORDS SUMMARY | 2024-03-22 20:13 | XMS_ITS | Encounter Summary ---
Author Organization [facility] Address [address] [place] [address] Care Team Providers Care Cold Working Inspector Name Role Phone Jhonathan Fisher MD Primary Care Provider Unav ailable Reason for Visit * Reason Comments Hyperlipidemia Encounter Details Date Type Department Care Team (Late st Contact Info) Description 04/12/2010 10:00 AM FAIRING WORKER Office Visit [facility] Medical [facility] - Internal Medicine [address] [place] [address] [place] [address] Jhonathan Fisher MD Hypertension (Primary Dx); Hyperlipidemia; Allergic rhinitis; Herpes zoster; Mixed hyperlipidemia; Encounter for long-term (current) use of other medications; GOUT; Other vitamin B12 deficiency anemia; Unspecified hypothyroidism; Unspecified vitamin D deficiency Social History Tobacco Use Types Packs/Day Years [...] Sign Reading Time Taken Comments Blood Pressure 122/76 04/12/2010 10:09 AM FAIRING WORKER Pulse 76 04/12/2010 10:09 AM FAIRING WORKER Temperature - - Respiratory Rate 18 04/12/2010 10:09 AM FAIRING WORKER Oxygen Saturation - - Inhaled Oxygen Concentration - - Weight 75.3 kg (166 lb) 04/12/2010 10:09 AM FAIRING WORKER Height - - Body Mass Index 27.62 10/30/2009 9:52 AM CDT documented in this encounter Progress Notes * Jhonathan Fisher MD - 05/19/2010 4:30 PM CSTQuick Note: Lab letter sent to patient. ING WORKER * Jhonathan Fisher MD - 04/12/2010 10:42 AM CST Patient Active Problem List Diagnoses Code ??? Allergic Rhinitis 477.9AD ??? S/P HYSTERECTOMY V88.01E ??? Hypertension 401.9 ??? Hyperlipidemia 272.4 ??? Routine General Medical Examination at a Health Care Facility V70.0 ??? Herpes zoster 053.9H Current outpatient prescriptions ordered prior to encounter Medication Sig Dispense Refill ??? valacyclovir (VALTREX) 1 GM tablet Take by mouth. Tid 30 Tab 11 ??? predniSONE (DELTASONE) 20 MG tablet Take 1 Tab by mouth. 3 tabs daily for 3 days, then 2 tabs daily for 3 days, then 1 tab daily for 3 days. Take early in the morning. 18 Tab 0 ??? lisinopril (PRINIVIL; ZESTRIL) 40 MG tablet Take 1 Tab by mouth daily. 90 Tab 3 ??? atorvastatin (LIPITOR) 10 MG tablet Take 1 Tab by mouth at bedtime. 90 Tab 3 ??? lorazepam (ATIVAN) 0.5 MG tablet Take 1 Tab by mouth 3 times daily. 90 Tab 4 ??? vitamin D, ergocalciferol, (DRISDOL) 889[address] UNIT capsule Take 1 Cap by mouth every 7 days. 12 Cap 3 ??? estrogens, conjugated, (PREMARIN) 0.3 MG tablet Take 1 Tab by mouth daily. 90 Tab 3 SUBJECTIVE: Am headaches and concerns regarding increased bp in am. Discussed at length and will increasse nocturnal dose of bp meds. Will use norvasc 5mg. Pt is: taking medications as instructed, no medication side effects noted, no TIA's, no chest pain on exertion, no dyspnea on exertion, no swelling of ankles, no orthostatic dizziness or lightheadedness, no orthopnea or paroxysmal nocturnal dyspnea, no palpitations, no intermittent claudication symptoms. Concerns regarding weight and exercise. Discussed overall situation with and ID and anxiety and stress. Developed shingles and also had some nonspeciigic issues with herpes simplex involving back and chin. A total of 25 minutes was spent on examination and counseling regarding this office visit, with greater than 50% face to face counseling Have reviewed patients medications for changes and refills if necessary. I have reviewed the patient's medical history in detail and updated the computerized patient record. OBJECTIVE: BP 122/76 Pulse 76 Resp 18 Wt 166 lb (75.297 kg) General appearance: alert, cooperative, no distress Heart: regular rhythm, normal S1 and S2, without murmurs, rubs or gallops Lungs: breath sounds normal and symmetric; no rales or wheezes Abdomen: normal bowl sounds; no palpable organomegaly or masses Extremities: no clubbing, cyanosis or edema ASSESSMENT: Encounter Diagnoses Code Name Primary? 401.9 Hypertension Yes ??? 272.4 Hyperlipidemia ??? 477.9AD Allergic rhinitis ??? 053.9H Herpes zoster ??? 272.2 Mixed hyperlipidemia ??? V58.69 Encounter for long-term (current) use of other medications ??? 274.9H GOUT ??? 281.1 Other vitamin B12 deficiency anemia ??? 244.9 Unspecified hypothyroidism ??? 268.9 Unspecified vitamin D deficiency PLAN: Orders Placed This Encounter ??? APOLIPOPROTEIN B ??? C-REACTIVE PROTEIN SENSITIVE ??? LIPID PROFILE ??? VITAMIN B12 FOLATE PANEL ??? CBC W AUTO DIFFERENTIAL ??? COMPREHENSIVE METABOLIC PANEL ??? URINALYSIS ROUTINE AUTO ??? VITAMIN D 25-HYDROXY ??? T4 FREE ??? TSH ??? URIC ACID BLOOD ??? amLODIPine (NORVASC) 5 MG tablet Sig: Take 1 Tab by mouth daily. Dispense: 30 Tab Refill: 5 ING WORKER documented in this encounter Plan of Treatment Upcoming Encounters Date Type Department Care Team (Late st Contact Info) Description 06/29/2024 10:00 AM CDT Office Visit [facility] Medical [facility] - Internal Medicine [address] [place] [phone] Tamia Brooks MD [address] [place] [phone] documented as of this encounter Procedures Procedure Name Priority Date/Time Associated Diagnosis Comments C-REACTIVE PROTEIN SENSITIVE Routine 05/11/2010 10:36 AM FAIRING WORKER Mixed hyperlipidemia APOLIPOPROTEIN B Routine 05/11/2010 10:3 6 AM FAIRING WORKER Mixed hyperlipidemia LIPID PROFILE Routine 05/11/2010 10:36 AM FAIRING WORKER Mixed hyperlipidemia URIC ACID BLOOD Routine 05/11/2010 10:34 AM FAIRING WORKER Gout VITAMIN D 25-HYDROXY Routine 05/11/2010 10:34 AM FAIRING WORKER Unspecified vitamin D deficiency CBC W AUTO DIFFERENTIAL Routine 05/11/2010 10:34 AM FAIRING WORKER Encounter for long-term (current) use of other medications COMPREHENSIVE METABOLIC PANEL Routine 05/11/2010 10:34 AM FAIRING WORKER Encounter for long-term (current) use of other medications VITAMIN B12 FOLATE PANEL Routine 05/11/2010 10:34 AM FAIRING WORKER Other vitamin B12 deficiency anemia TSH Routine 05/11/2010 10:34 AM FAIRING WORKER Unspecified hypothyroidism T4 FREE Routine 05/11/2010 10:34 AM FAIRING WORKER Unspecified hypothyroidism URINALYSIS REFLEX TO MICROSCOPIC NO CULTURE Routine 05/11/2010 10:32 AM FAIRING WORKER Encounter for long-term (current) use of other medications URINE MICROSCOPIC ONLY Routine 1 10:32 AM FAIRING WORKER Encounter for long-term (current) use of other medications documented in this encounter Results * (ABNORMAL) LIPID PROFILE (05/11/2010 10:36 AM FAIRING WORKER) Cholesterol 211(H) 100 - 199 mg/dL [facility] INSURANCE BILL Triglycerides 182(H) 0 - 149 mg/dL [facility] INSURANCE BILL HDL Cholesterol 51 >39 mg/dL [facility] INSURANCE BILL Comment: According to ATP-III Guidelines, HDL-C >59 mg/dL is considered a negative risk factor for CHD. VLDL Calculated 36 5 - 40 mg/dL [facility] INSURANCE BILL LDL Calculated 124(H) 0 - 99 mg/dL [facility] INSURANCE BILL BLOOD SPECIMEN / Unknown 05/11/2010 10:36 AM FAIRING WORKER 05/11/2010 9:32 PM FAIRING WORKER Narrative Resulting Agency Comment [facility] [address] ??[facility] [phone] Jhonathan Fisher MD LAB - CHEMISTRY ORD ERABLES [facility] INSURANCE BILL * C-REACTIVE PROTEIN SENSITIVE (05/11/2010 10:36 AM FAIRING WORKER) C-Reactive Protein High Sensitivity 0.85 0.00 - 3.00 mg/L [facility] INSURANCE BILL Comment: ?Relative Risk for Future Cardiovascular Event ?Low ? <1.00 ?Average ? 1.00 - 3.00 ?High ?>3.00 BLOOD SPECIMEN / Unknown 05/11/2010 10:36 AM FAIRING WORKER 05/11/2010 9:32 PM FAIRING WORKER Narrative Resulting Agency Comment [facility] [address] ??[place] [phone] Jhonathan Fisher MD LAB - CHEMISTRY ORD ERABLES [facility] INSURANCE BILL * APOLIPOPROTEIN B (05/11/2010 10:36 AM FAIRING WORKER) Apolipoprotein B 98 50 - 130 mg/dL [facility] INSURANCE BILL BLOOD SPECIMEN / Unknown 05/11/2010 10:36 AM FAIRING WORKER 05/11/2010 9:32 PM FAIRING WORKER Narrative Resulting Agency Comment [facility] [address] ??[facility] [phone] Jhonathan Fisher MD LAB - CHEMISTRY ORD ERABLES [facility] INSURANCE BILL * URIC ACID BLOOD (05/11/2010 10:34 AM FAIRING WORKER) Uric Acid 4.1 2.4 - 8.2 mg/dL [facility] INSURANCE BILL Comment: ? Effective May 14, 2010, Uric Acid reference ? interval will be changing to: ?Age ?Female ?Male ? 0 - ??1 month ?2.4 - 6.5 mg/dL ?? 3.3 - 8.4 mg/dL ? 1 - 12 months ? 2.1 - 6.5 mg/dL ?? 1.9 - 8.1 mg/dL ? 1 - 12 years ?2.0 - 5.8 mg/dL ?? 1.9 - 5.8 mg/dL ?12 - 18 years ?2.4 - 6.3 mg/dL ?? 3.4 - 7.8 mg/dL ?18 years and older ?? 2.5 - 7.1 mg/dL ?? 3.7 - 8.6 mg/dL ? . ?Therapeutic target for gout patients: ? <6.0 mg/dL BLOOD SPECIMEN / Unknown 05/11/2010 10:34 AM FAIRING WORKER 05/11/2010 9:33 PM FAIRING WORKER Narrative Resulting Agency Comment [facility] [place] [address] ??[facility] [phone] Jhonathan Fisher MD LAB - CHEMISTRY ORD ERABLES Performing Organization Address City/[facility] Co de Phone Number [facility] INSURANCE BILL * TSH (05/11/2010 10:34 AM FAIRING WORKER) TSH 2.600 0.450 - 4.500 uIU/mL [facility] INSURANCE BILL BLOOD SPECIMEN / Unknown 05/11/2010 10:34 AM FAIRING WORKER 05/11/2010 9:33 PM FAIRING WORKER Narrative Resulting Agency Comment [facility] [place] [address] ??[facility] [phone] Jhonathan Fisher MD LAB - CHEMISTRY ORD ERABLES [facility] INSURANCE BILL * T4 FREE (05/11/2010 10:34 AM FAIRING WORKER) T4 Free 0.90 0.82 - 1.77 ng/dL [facility] INSURANCE BILL BLOOD SPECIMEN / Unknown 05/11/2010 10:34 AM FAIRING WORKER 05/11/2010 9:33 PM FAIRING WORKER Narrative Resulting Agency Comment [facility] ??[facility] [phone] Jhonathan Fisher MD LAB - CHEMISTRY ORD ERABLES [facility] INSURANCE BILL * VITAMIN D 25-HYDROXY (05/11/2010 10:34 AM FAIRING WORKER) Vitamin D, 25 Hydroxy 38.2 32.0 - 100.0 ng/mL [facility] INSURANCE BILL Comment: Recent studies consider the lower limit of 32.0 ng/mL to be a threshold for optimal health. Cody GONG. J Nutr. 2004;135(2):317-22. BLOOD SPECIMEN / Unknown 05/11/2010 10:34 AM FAIRING WORKER 05/11/2010 9:33 PM FAIRING WORKER Narrative Resulting Agency Comment [address] ??[facility] [phone] Jhonathan Fisher MD LAB - CHEMISTRY ORD ERABLES [facility] INSURANCE BILL * (ABNORMAL) COMPREHENSIVE METABOLIC PANEL (05/11/2010 10:34 AM FAIRING WORKER) Glucose 89 65 - 99 mg/dL [facility] INSURANCE BILL BUN 16 8 - 27 mg/dL [facility] INSURANCE BILL Creatinine 0.97 0.57 - 1.00 mg/dL [facility] INSURANCE BILL eGFR by MDRD 58(L) >59 mL/min/1.7 3 [facility] INSURANCE BILL eGFR by MDRD >59 >59 mL/min/1.7 3 [facility] INSURANCE BILL Comment: Note: ??Persistent reduction for 3 months or more in an eGFR <60 mL/min/1.73 m2 defines CKD. ??Patients with eGFR values >/=60 mL/min/1.73 m2 may also have CKD if evidence of persistent proteinuria is present. Additional information may be found at www.kdoqi.org. BUN/Creatinine Ratio 16 11 - 26 [facility] INSURANCE BILL Sodium 142 135 - 145 mmol/L [facility] INSURANCE BILL Potassium 4.0 3.5 - 5.2 mmol/L [facility] INSURANCE BILL Chloride 102 97 - 108 mmol/L [facility] INSURANCE BILL CO2 21 20 - 32 mmol/L [facility] INSURANCE BILL Calcium 9.9 8.6 - 10.2 mg/dL [facility] INSURANCE BILL Protein Total 7.2 6.0 - 8.5 g/dL [facility] INSURANCE BILL Albumin 4.9(H) 3.6 - 4.8 g/dL [facility] INSURANCE BILL Globulin Total 2.3 1.5 - 4.5 g/dL [facility] INSURANCE BILL Albumin/Globulin Ratio 2.1 1.1 - 2.5 [facility] INSURANCE BILL Bilirubin Total 0.4 0.0 - 1.2 mg/dL [facility] INSURANCE BILL Alkaline Phosphatase 110 25 - 165 IU/L [facility] INSURANCE BILL AST 23 0 - 40 IU/L [facility] INSURANCE BILL ALT 19 0 - 40 IU/L [facility] INSURANCE BILL BLOOD SPECIMEN / Unknown 05/11/2010 10:34 AM FAIRING WORKER 05/11/2010 9:33 PM FAIRING WORKER Narrative Resulting Agency Comment [facility] [address] ??[facility] [phone] Jhonathan Fisher MD LAB - CHEMISTRY ORD ERABLES [facility] INSURANCE BILL * CBC W AUTO DIFFERENTIAL (05/11/2010 10:34 AM FAIRING WORKER) WBC 8.0 4.0 - 10.5 x10E3/uL [facility] INSURANCE BILL RBC 4.71 3.80 - 5.10 x10E6/uL [facility] INSURANCE BILL Hemoglobin 14.1 11.5 - 15.0 g/dL [facility] INSURANCE BILL Hematocrit 41.8 34.0 - 44.0 % [facility] INSURANCE BILL MCV 89 80 - 98 fL [facility] INSURANCE BILL MCH 29.9 27.0 - 34.0 pg [facility] INSURANCE BILL MCHC 33.7 32.0 - 36.0 g/dL [facility] INSURANCE BILL RDW 13.9 11.7 - 15.0 % [facility] INSURANCE BILL Platelet Count 283 140 - 415 x10E3/uL [facility] INSURANCE BILL Granulocytes % 61 40 - 74 % [facility] INSURANCE B[facility] Lymphocytes % 25 14 - 46 % [facility] INSURANCE BILL Monocytes % 10 4 - 13 % [facility] INSURANCE BILL Eosinophils % 3 0 - 7 % [facility] INSURANCE BILL Basophils % 1 0 - 3 % [facility] INSURANCE BILL Immature Cells NOT NEEDED [facility] INSURANCE BILL Comment:Ancillary determined the test is not needed Granulocytes Absolute 4.9 1.8 - 7.8 x10E3/uL [facility] INSURANCE BILL Lymphocytes Absolute 2.0 0.7 - 4.5 x10E3/uL [facility] INSURANCE BILL Monocytes Absolute 0.8 0.1 - 1.0 x10E3/uL [facility] INSURANCE BILL Eosinophils Absolute 0.2 0.0 - 0.4 x10E3/uL [facility] INSURANCE BILL Basophils Absolute 0.1 0.0 - 0.2 x10E3/uL [facility] INSURANCE BILL Immature Granulocytes 0 0 - 1 % [facility] INSURANCE BILL Immature Granulocytes Absolute 0.0 0.0 - 0.1 x10E3/uL [facility] INSURANCE BILL nRBC NOT NEEDED [facility] INSURANCE BILL Comment:Ancillary determined the test is not needed Comment Hematology NOT NEEDED [facility] INSURANCE BILL Comment:Ancillary determined the test is not needed BLOOD SPECIMEN / Unknown 05/11/2010 10:34 AM FAIRING WORKER 05/11/2010 9:33 PM FAIRING WORKER Narrative Resulting Agency Comment [facility] [address] ??[facility] [phone] Jhonathan Fisher MD LAB - HEMATOLOGY OR DERABLES [facility] INSURANCE BILL * VITAMIN B12 FOLATE PANEL (05/11/2010 10:34 AM FAIRING WORKER) Vitamin B12 431 211 - 946 pg/mL [facility] INSURANCE BILL Folate 11.9 >3.0 ng/mL [facility] INSURANCE BILL Comment: ? Indeterminate: ??2.2 - 3.0 ? Deficient: ? <2.2 BLOOD SPECIMEN / Unknown 05/11/2010 10:34 AM FAIRING WORKER 05/11/2010 9:33 PM FAIRING WORKER Narrative Resulting Agency Comment [facility] ??[facility] [phone] Jhonathan Fisher MD LAB - CHEMISTRY ORD ERABLES [facility] INSURANCE BILL * (ABNORMAL) URINALYSIS MICROSCOPIC ONLY (05/11/2010 10:32 AM FAIRING WORKER) WBC UA >30(A) 0 - 5 /hpf [facility] INSURANCE BILL RBC UA 0-3 0 - 3 /hpf [facility] INSURANCE BILL Epithelial Cells (non renal) None seen 0 - 10 /hpf [facility] INSURANCE BILL [...] the test is not needed Mucus UA NOT NEEDED [facility] INSURANCE BILL Comment:Ancillary determined the test is not needed Bacteria UA Few None seen/Few [facility] INSURANCE BILL Yeast UA NOT NEEDED [facility] INSURANCE BILL Comment:Ancillary determined the test is not needed Trichomonas UA NOT NEEDED [facility] INSURANCE BILL Comment:Ancillary determined the test is not needed Comment Urine NOT NEEDED [facility] INSURANCE B[facility] Comment:Ancillary determined the test is not needed 05/11/2010 10:3 2 AM FAIRING WORKER 05/11/2010 6:46 PM FAIRING WORKER Narrative Resulting Agency Comment [facility] [address] ??[facility] [phone] Jhonathan Fisher MD LAB - URINALYSIS OR DERABLES [facility] INSURANCE BILL * (ABNORMAL) URINALYSIS ROUTINE AUTO (05/11/2010 10:32 AM FAIRING WORKER) Specific [place] UA 1.009 1.005 - 1.030 [facility] INSURANCE BILL pH UA 7.0 5.0 - 7.5 [facility] INSURANCE BILL Color UA Yellow Yellow [facility] INSURANCE BILL Appearance Clear Clear [facility] INSURANCE BILL Leukocyte UA 3+(A) Negative [facility] INSURANCE BILL Protein UA Negative Negative/Tra ce [facility] INSURANCE BILL Glucose UA Negative Negative [facility] INSURANCE BILL Glucose Reflex NOT NEEDED [facility] INSURANCE BILL Comment:Ancillary determined the test is not needed Ketone UA Negative Negative [facility] INSURANCE BILL Occult Blood Urine 1+(A) Negative [facility] INSURANCE BILL Bilirubin UA Negative Negative [facility] INSURANCE BILL Urobilinogen 0.2 0.0 - 1.9 mg/dL [facility] INSURANCE BILL Nitrite UA Negative Negative [facility] INSURANCE BILL Microscopic Examination Urine See below: [facility] INSURANCE BILL Microscopic Examination Urine NOT NEEDED [facility] INSURANCE BILL Comment:Ancillary determined the test is not needed URINE SPECIMEN OBTAINED BY CLEAN CATCH PROCEDURE / Unknown 05/11/2010 10:32 AM FAIRING WORKER 05/11/2010 6:46 PM FAIRING WORKER Narrative Resulting Agency Comment [facility] [address] ??[facility] [phone] Jhonathan Fisher MD LAB - URINALYSIS OR DERABLES [facility] INSURANCE BILL documented in this encounter Visit Diagnoses Diagnosis Hypertension- Primary Unspecified essential hypertension Hyperlipidemia Other and unspecified hyperlipidemia Allergic rhinitis Allergic rhinitis, cause unspecified Herpes zoster Herpes zoster without mention of complication Mixed hyperlipidemia Encounter for long-term (current) use of other medications Gout Gout, unspecified Other vitamin B12 deficiency anemia Unspecified hypothyroidism Unspecified vitamin D deficiency documented in this encounter Care Teams Cold Working Inspector Relationship Specialty Start Date End Date Jhonathan Fisher MD PCP - General 08/09/08 05/05/14 documented as of this encounter
--- OUTSIDE RECORDS SUMMARY | 2024-03-22 20:13 | XMS_ITS | Encounter Summary ---
Author Organization [facility] Address [address] [facility] [place] [address] Care Team Providers Care Medical Biller Name Role Phone Jhonathan Fisher MD Primary Care Provider Unav ailable Reason for Visit * Reason Onset Date Comments MEDICATION REFILL 01/06/2013 Encounter Details Date Type Department Care Team (Late st Contact Info) Description 01/06/2013 Refill [facility] - Internal Medicine [address] [facility] [place] [address] Jhonathan Fisher MD MEDICATION REFILL Social History [...] Telephone Encounter - Sunita Valenzuela MA - 01/06/2013 2:01 PM CDT Phoned in stephanie with emily * Telephone Encounter - Colleen Baron RN - 01/06/2013 1:46 PM CDT Last rf 04/27/12 Last ov 10/26/12 documented in this encounter Plan of Treatment Upcoming Encounters Date Type Department Care Team (Late st Contact Info) Description 06/29/2024 10:00 AM CDT Office Visit [facility] - Internal Medicine [address] [phone] Tamia Brooks MD [address] [place] [phone] documented as of this encounter Visit Diagnoses Not on filedocumented in this encounter Care Teams Medical Biller Relationship Specialty Start Date End Date Jhonathan Fisher MD PCP - General 08/09/08 05/05/14 documented as of this encounter
--- OUTSIDE RECORDS SUMMARY | 2024-03-22 20:13 | XMS_ITS | Encounter Summary ---
Author Organization [facility] Address [address] [facility] [place] [address] Care Team Providers Care Laborer Pipelines Name Role Phone Yohan Barros DPM Unavailable [phone] Lemuel Hoang MD Primary Care Provider Unavailab le Reason for Visit * Reason Onset Date Comments MEDICATION REFILL 03/30/2015 Encounter Details Date Type Department Care Team (Late Contact Info) Description 03/30/2015 Refill [facility] - Internal Medicine [address] [facility] [place] [address] Lemuel Hoang MD RETIRED MEDICATION REFILL Social [...] * Telephone Encounter - Cassy Mendez - 03/30/2015 9:38 AM CST Last ov 01/06/15 Future appt 07/10/15 COLLECTOR SUPERVISOR documented in this encounter Plan of Treatment Upcoming Encounters Date Type Department Care Team (Late st Contact Info) Description 06/29/2024 10:00 AM CDT Office Visit [facility] - Internal Medicine [address] [facility] [address] [place] [address] Tamia Brooks MD [address] [facility] [address] [place] [phone] documented as of this encounter Goals Goal Patient Goal Type Associated Problems Recent Progress Patient-Stated? Author Blood Pressure < 140/90 Blood Pressure 130/70( 024 1:19 PM CDT) Lola Serna MA documented as of this encounter Visit Diagnoses Diagnosis Hypertension, benign essential- Primary Essential hypertension, benign documented in this encounter Care Teams Laborer Pipelines Relationship Specialty Start Date End Date Lemuel Hoang MD [address] [place] [phone] PCP - General Family Medicine 05/06/14 07/25/16 Yohan Barros DPM [address] [place] [phone] Podiatry 05/24/13 documented as of this encounter
--- OUTSIDE RECORDS SUMMARY | 2024-03-22 20:13 | XMS_ITS | Encounter Summary ---
Author Organization [facility] Address [address] [place] [address] Care Team Providers Care Instructor Of Education Name Role Phone Yohan Barros DPM Unavailable Lemuel Hoang MD Primary Care Provider Unavailab le Reason for Visit * Reason Onset Date Comments MEDICATION REFILL 06/03/2014 Encounter Details Date Type Department Care Team (Late st Contact Info) Description 06/03/2014 Refill [facility] Medical [facility] - Internal Medicine [address] [facility] [place] [address] Lemuel Hoang MD RETIRED MEDICATION REFILL Social [...] * Telephone Encounter - Cassy Mendez - 06/06/2014 9:23 AM CDT Phoned into pharmacy * Telephone Encounter - Cassy Mendez - 06/03/2014 1:11 PM CDT Ativan last filled 01/22/14 Last ov 01/07/14 documented in this encounter Plan of Treatment Upcoming Encounters Date Type Department Care Team (Late st Contact Info) Description 06/29/2024 10:00 AM CDT Office Visit [facility] - Internal Medicine [address] [facility] [address] [place] [phone] Tamia Brooks MD [address] [place] [phone] documented as of this encounter Goals Goal Patient Goal Type Associated Problems Recent Progress Patient-Stated? Author Blood Pressure < 140/90 Blood Pressure 130/70( 024 1:19 PM CDT) Lola Serna MA documented as of this encounter Visit Diagnoses Not on filedocumented in this encounter Care Teams Instructor Of Education Relationship Specialty Start Date End Date Lemuel Hoang MD [address] [place] [phone] PCP - General Family Medicine 05/06/14 07/25/16 Yohan Barros DPM [address] [place] [phone] Podiatry 05/24/13 documented as of this encounter
--- OUTSIDE RECORDS SUMMARY | 2024-03-22 20:13 | XMS_ITS | Encounter Summary ---
Author Organization [facility] Address [address] [place] [address] Care Team Providers Care Photoengraving Finisher Name Role Phone Yohan Barros DPM Unavailable Lemuel Hoang MD Primary Care Provider Unavailab le Reason for Visit * Reason Onset Date Comments MEDICATION REFILL 10/26/2014 Encounter Details Date Type Department Care Team (Late Contact Info) Description 10/26/2014 Refill [facility] - Internal Medicine [address] [facility] [place] [address] Lemuel Hoang MD RETIRED MEDICATION REFILL Social [...] Telephone Encounter - Georgia Gama LPN - 10/26/2014 10:47 AM CDT Seen last 07/08/14 documented in this encounter Plan of Treatment Upcoming Encounters Date Type Department Care Team (Late st Contact Info) Description 06/29/2024 10:00 AM CDT Office Visit [facility] - Internal Medicine [address] [facility] [address] [place] [address] Tamia Brooks MD [address] [facility] [address] [place] [address] documented as of this encounter Goals Goal Patient Goal Type Associated Problems Recent Progress Patient-Stated? Author Blood Pressure < 140/90 Blood Pressure 130/70( 024 1:19 PM CDT) Lola Serna MA documented as of this encounter Visit Diagnoses Not on filedocumented in this encounter Care Teams Photoengraving Finisher Relationship Specialty Start Date End Date Lemuel Hoang MD [address] [place] [address] PCP - General Family Medicine 05/06/14 07/25/16 Yohan Barros DPM [address] [place] [id number] Podiatry 05/24/13 documented as of this encounter
--- OUTSIDE RECORDS SUMMARY | 2024-03-22 20:13 | XMS_ITS | Encounter Summary ---
Author Organization [facility] Address [address] [facility] [place] [address] Care Team Providers Care Observer Gravity Prospecting Name Role Phone Jhonathan Fisher MD Primary Care Provider Unav ailable Reason for Referral * Evaluate & Treat Specialty Diagnoses / Procedures Referred By Contismael t Referred To Contact Jhonathan Fisher MD [address] [place] [address] Lola Pantoja MD [address] [address] Referral ID Status Reason Start Date Expiration Date V isits Requested Visits Authorized Specialty Services Required Reason for Visit * Reason Onset Date Comments Breathing Problem 12/18/2010 Encounter Details Date Type Department Care Team (Late st Contact Info) Description 12/18/2010 Telephone [facility] Medical [facility] - Internal Medicine [address] [place] [address] [place] [address] Jhonathan Fisher MD Breathing Problem Social History Tobacco Use Types [...] Telephone Encounter - Bee Aldridge RN - 12/18/2010 3:59 PM CDT Pt referred to Dr. Pantoja. She voices understanding and acceptance of this advice and will call back if any further questions or concerns. * Telephone Encounter - Bee Aldridge RN - 12/18/2010 1:05 PM CDT Pt unavailable. Left message requesting a return call. * Telephone Encounter - Jhonathan Fisher MD - 12/18/2010 12:25 PM CDT This issue may very well reflect a central cause for sleep apnea. Would recommend a sleep evaluation by a sleep specialist if the symptoms persist. * Telephone Encounter - Bee Aldridge RN - 12/18/2010 11:06 AM CDT Pt co x 2 months of randomly gasping for air . Occurs while sitting or lying down. Sometimes awakes pt at night. Occurs approximately once every other day. Episode only lasts for one breath then breathing goes back to normal. has noticed an increase in snoring. documented in this encounter Plan of Treatment Upcoming Encounters Date Type Department Care Team (Late st Contact Info) Description 06/29/2024 10:00 AM CDT Office Visit [facility] Medical [facility] - Internal Medicine [address] [facility] [address] [place] [phone] Tamia Brooks MD [address] [place] [phone] Scheduled Referrals Name Type Priority Associated Diagnoses Orde r Schedule AMB REFERRAL TO SLEEP STUDIES Outpatient Referral Routine Snoring Sleep disorder breathing Ordered: 12/18/2010 documented as of this encounter Visit Diagnoses Diagnosis Snoring Other dyspnea and respiratory abnormality Sleep disorder breathing Other sleep disturbances documented in this encounter Care Teams Observer Gravity Prospecting Relationship Specialty Start Date End Date Jhonathan Fisher MD PCP - General 08/09/08 05/05/14 documented as of this encounter
--- OUTSIDE RECORDS SUMMARY | 2024-03-22 20:13 | XMS_ITS | Encounter Summary ---
Author Organization [facility] Address [address] [facility] [place] [address] Care Team Providers Care Ferryboat Helper Name Role Phone Jhonathan Fisher MD Primary Care Provider Unav ailable Reason for Visit * Reason Comments Hyperlipidemia Physical Encounter Details Date Type Department Care Team (Late st Contact Info) Description 02/28/2011 9:00 AM LEVERS LACE MACHINE OPERATOR Office Visit [facility] Medical [facility] - Internal Medicine [address] [place] [address] [place] [address] Jhonathan Fisher MD Routine general medical examination at a health care facility 02/28/11 (Primary Dx); Hypertension; Hyperlipidemia; Allergic rhinitis; Chest pain; Encounter for long-term (current) use of other medications; Screening for diabetes mellitus; Screening for gout; Screening for hyperlipidemia; Screening for other and unspecified endocrine, nutritional, metabolic, and immunity disorders Social History Tobacco Use Types Packs/Day Years [...] Reading Time Taken Comments Blood Pressure 124/76 02/28/2011 9:32 AM LEVERS LACE MACHINE OPERATOR Pulse 76 02/28/2011 9:32 AM LEVERS LACE MACHINE OPERATOR Temperature - - Respiratory Rate 18 02/28/2011 9:32 AM LEVERS LACE MACHINE OPERATOR Oxygen Saturation - - Inhaled Oxygen Concentration - - Weight 71.8 kg (158 lb 6.4 oz) 02/28/2011 8:47 A M LEVERS LACE MACHINE OPERATOR Height 163.8 cm (5' 4.5 ) 02/28/2011 8:47 AM LEVERS LACE MACHINE OPERATOR Body Mass Index 26.77 02/28/2011 8:47 AM LEVERS LACE MACHINE OPERATOR documented in this encounter Progress Notes * Bee Mcbride RN - 06/21/2011 10:51 AM CDTAddended by: BEE MCBRIDE on: 06/21/2011 10:51 AM Modules accepted: Orders * Jhonathan Fisher MD - 03/30/2011 7:10 PM CSTAddended by: JHONATHAN FSIHER on: 03/30/2011 07:10 PM Modules accepted: Orders, Medications RS LACE MACHINE OPERATOR * Jhonathan Fisher MD - 02/28/2011 9:41 AM CST Patient Active Problem List Diagnoses ??? Allergic rhinitis ??? S/P hysterectomy ??? Hypertension ??? Hyperlipidemia ??? Routine general medical examination at a health care facility ??? Herpes zoster ??? Routine general medical examination at a health care facility 02/28/11 No current outpatient prescriptions on file prior to visit. No family history on file. Past Medical History Diagnosis Date ??? UTI ??? Allergic rhinitis 09/20/2008 ??? Hypertension 09/20/2008 ??? Hyperlipidemia 09/20/2008 ??? Herpes zoster 04/12/2010 Past Surgical History Procedure Date ??? Hysterectomy History Substance Use Topics ??? Smoking status: Former Smoker Types: Cigarettes Quit date: 03/10/1990 ??? Smokeless tobacco: Never Used ??? Alcohol Use: Yes occ .Subjective: The patient is seen for an annual preventative exam. No changes in lifestyle or quality of living over the past year. She is exercising regularly. The patient has many long standing diagnoses, but lives with these and has no active issues. We discussed, alcohol, drugs, exercise, sleep, personal hygiene, vitamins, diet, seat belts, and weight with appropriate counsuling. [...] No fatigue or weight change. Objective: BP 124/76 Pulse 76 Resp 18 Wt 158 lb 6.4 oz (71.85 kg) BMI 26.77 kg/m2 General appearance: alert, cooperative, no distress [...] no rashes or other abnormalities are noted Assessment: Encounter Diagnoses Name Primary? Routine general medical examination at a health care facility 02/28/11 Yes ??? Hypertension ??? Hyperlipidemia ??? Allergic rhinitis ??? Chest pain ??? Encounter for long-term (current) use of other medications ??? Screening for diabetes mellitus ??? Screening for gout ??? Screening for hyperlipidemia ??? Screening for other and unspecified endocrine, nutritional, metabolic, and immunity disorders Plan: Orders Placed This Encounter ??? LIPID PROFILE ??? VITAMIN B12 FOLATE PANEL ??? CBC W AUTO DIFFERENTIAL ??? COMPREHENSIVE METABOLIC PANEL ??? URINALYSIS ROUTINE AUTO ??? VITAMIN D 25-HYDROXY ??? TSH ??? URIC ACID BLOOD ??? ECHOCARDIOGRAM STRESS Standing Status: Future Number of Occurrences: Standing Expiration Date: 02/29/2012 Order Specific Question: Type of Stress ECHO being requested: Answer: Walking Stress ECHO ??? amLODIPine (NORVASC) 5 MG tablet Sig: Take 1 Tab by mouth once daily. Dispense: 90 Tab Refill: 3 ??? atorvastatin (LIPITOR) 10 MG tablet Sig: Take 1 Tab by mouth at bedtime. Dispense: 90 Tab Refill: 3 ??? lisinopril (PRINIVIL; ZESTRIL) 40 MG tablet Sig: Take 1 Tab by mouth once daily. Dispense: 90 Tab Refill: 1 ??? LORazepam (ATIVAN) 0.5 MG tablet Sig: Take 1 Tab by mouth 3 times daily. Dispense: 90 Tab Refill: 4 ??? vitamin D, ergocalciferol, (DRISDOL) 24037 UNIT capsule Sig: Take 1 Cap by mouth every 7 days. Dispense: 12 Cap Refill: 3 RS LACE MACHINE OPERATOR documented in this encounter Plan of Treatment Upcoming Encounters Date Type Department Care Team (Late st Contact Info) Description 06/29/2024 10:00 AM CDT Office Visit [facility] Medical [facility] - Internal Medicine [address] [place] [address] [place] [phone] Tamia Brooks MD [address] [place] [address] [place] [phone] documented as of this encounter Procedures Procedure Name Priority Date/Time Associated Diagnosis Comments URINALYSIS REFLEX TO MICROSCOPIC NO CULTURE Routine 03/25/2011 8:32 AM LEVERS LACE MACHINE OPERATOR Encounter for long-term (current) use of other medications URINE MICROSCOPIC ONLY Routine 03/25/2011 8:32 AM LEVERS LACE MACHINE OPERATOR Encounter for long-term (current) use of other medications URIC ACID BLOOD Routine 03/25/2011 8:31 AM LEVERS LACE MACHINE OPERATOR Screening for gout VITAMIN D 25-HYDROXY Routine 03/25/2011 8:31 AM LEVERS LACE MACHINE OPERATOR Screening for other and unspecified endocrine, nutritional, metabolic, and immunity disorders CBC W AUTO DIFFERENTIAL Routine 03/25/2011 8:31 AM LEVERS LACE MACHINE OPERATOR Encounter for long-term (current) use of other medications COMPREHENSIVE METABOLIC PANEL Routine 03/25/2011 8:31 AM LEVERS LACE MACHINE OPERATOR Encounter for long-term (current) use of other medications VITAMIN B12 FOLATE PANEL Routine 03/25/2011 8:31 AM LEVERS LACE MACHINE OPERATOR Screening for other and unspecified endocrine, nutritional, metabolic, and immunity disorders TSH Routine 03/25/2011 8:31 AM LEVERS LACE MACHINE OPERATOR Screening for other and unspecified endocrine, nutritional, metabolic, and immunity disorders LIPID PROFILE Routine 03/25/2011 8:31 AM LEVERS LACE MACHINE OPERATOR Screening for hyperlipidemia documented in this encounter Results * URINALYSIS MICROSCOPIC ONLY (03/25/2011 8:32 AM LEVERS LACE MACHINE OPERATOR) WBC UA 0-5 0 - 5 /hpf [...] test is not needed 03/25/2011 8:32 AM LEVERS LACE MACHINE OPERATOR 03/25/2011 1:22 PM LEVERS LACE MACHINE OPERATOR Narrative Resulting Agency Comment [facility] [address] ??[facility] [phone] Jhonathan Fisher MD LAB - URINALYSIS OR DERABLES [facility] INSURANCE BILL * URINALYSIS ROUTINE AUTO (03/25/2011 8:32 AM LEVERS LACE MACHINE OPERATOR) Specific [place] UA 1.017 1.005 - 1.030 [facility] INSURANCE BILL pH UA 7.5 5.0 - 7.5 [facility] INSURANCE BILL Color [...] Examination Urine See below: [facility] INSURANCE BILL URINE SPECIMEN OBTAINED BY CLEAN CATCH PROCEDURE / Unknown 03/25/2011 8:32 AM LEVERS LACE MACHINE OPERATOR 03/25/2011 1:22 PM LEVERS LACE MACHINE OPERATOR Narrative Resulting Agency Comment [facility] [address] ??[facility] [phone] Jhonathan Fisher MD LAB - URINALYSIS OR DERABLES [facility] INSURANCE BILL * URIC ACID BLOOD (03/25/2011 8:31 AM LEVERS LACE MACHINE OPERATOR) Uric Acid 6.1 2.5 - 7.1 mg/dL [facility] INSURANCE BILL Comment:Therapeutic target f or gout patients: <6.0 Blood specimen (specimen) BLOOD SPECIMEN / Unknown 03/25/2011 8:31 AM LEVERS LACE MACHINE OPERATOR 03/25/2011 1:22 PM LEVERS LACE MACHINE OPERATOR Narrative Resulting Agency Comment [facility] [address] ??[facility] [phone] Jhonathan Fisher MD LAB - CHEMISTRY ORD ERABLES Performing Organization Address City/[facility]/ZIP Co de Phone Number [facility] INSURANCE BILL * TSH (03/25/2011 8:31 AM LEVERS LACE MACHINE OPERATOR) TSH 2.430 0.450 - 4.500 uIU/mL [facility] INSURANCE BILL Blood specimen (specimen) BLOOD SPECIMEN / Unknown 03/25/2011 8:31 AM LEVERS LACE MACHINE OPERATOR 03/25/2011 1:22 PM LEVERS LACE MACHINE OPERATOR Narrative Resulting Agency Comment [facility] ??[facility] [phone] Jhonathan Fisher MD LAB - CHEMISTRY ORD ERABLES Performing Organization Address [facility] Co de Phone Number [facility] INSURANCE BILL * VITAMIN D 25-HYDROXY (03/25/2011 8:31 AM LEVERS LACE MACHINE OPERATOR) Vitamin D, 25 Hydroxy 68.6 30.0 - 100.0 ng/mL [facility] INSURANCE BILL Comment: Vitamin D deficiency has been defined by the [place] of [employer] and an Endocrine Society practice guideline as a level of serum 25-OH vitamin D less than 20 ng/mL (1,2). The Endocrine Society went on to further define vitamin D insufficiency as a level between 21 and 29 ng/mL (2). 1. IOM ([place] of [employer]). 2011. Dietary reference ?? intakes for calcium and D. [place]: The ?? National Academies Press. 2. Jose MF, Melia SAN, Marcelo CAMPUZANO, et al. ?? Evaluation, treatment, and prevention of vitamin D ?? deficiency: an Endocrine Society clinical practice ?? guideline. JCEM. 2010; 96(2):1911-30. Blood specimen (specimen) BLOOD SPECIMEN / Unknown 03/25/2011 8:31 AM LEVERS LACE MACHINE OPERATOR 03/25/2011 1:22 PM LEVERS LACE MACHINE OPERATOR Narrative Resulting Agency Comment [facility] [address] ??[facility] [phone] Jhonathan Fisher MD LAB - CHEMISTRY ORD ERABLES [facility] INSURANCE BILL * (ABNORMAL) COMPREHENSIVE METABOLIC PANEL (03/25/2011 8:31 AM LEVERS LACE MACHINE OPERATOR) Glucose 104(H) 65 - 99 mg/dL [facility] INSURANCE BILL BUN 20 8 - 27 mg/dL [facility] INSURANCE BILL Creatinine 1.23(H) 0.57 - 1.00 mg/dL [facility] INSURANCE BILL eGFR by MDRD 47(L) >59 mL/min/1.7 3 [facility] INSURANCE BILL eGFR by MDRD 54(L) >59 mL/min/1.7 3 [facility] INSURANCE BILL Comment: Note: A persistent eGFR <60 mL/min/1.73 m2 (3 months or more) may indicate chronic kidney disease. An eGFR >59 mL/min/1.73 m2 with an elevated urine protein also may indicate chronic kidney disease. Calculated using CKD-EPI formula. BUN/Creatinine Ratio 16 11 - 26 [facility] INSURANCE BILL Sodium 144 134 - 144 mmol/L [facility] INSURANCE BILL Comment:Please note refere nce interval change Potassium 4.4 3.5 - 5.2 mmol/L [facility] INSURANCE BILL Chloride 104 97 - 108 mmol/L [facility] INSURANCE BILL CO2 24 20 - 32 mmol/L [facility] INSURANCE BILL Calcium 9.9 8.6 - 10.2 mg/dL [facility] INSURANCE BILL Protein Total 7.1 6.0 - 8.5 g/dL [facility] INSURANCE BILL Albumin 4.9(H) 3.6 - 4.8 g/dL [facility] INSURANCE BILL Globulin Total 2.2 1.5 - 4.5 g/dL [facility] INSURANCE BILL Albumin/Globulin Ratio 2.2 1.1 - 2.5 [facility] INSURANCE BILL Bilirubin Total 0.3 0.0 - 1.2 mg/dL [facility] INSURANCE BILL Alkaline Phosphatase 103 25 - 165 IU/L [facility] INSURANCE BILL AST 20 0 - 40 IU/L [facility] INSURANCE BILL ALT 18 0 - 40 IU/L [facility] INSURANCE BILL Blood specimen (specimen) BLOOD SPECIMEN / Unknown 03/25/2011 8:31 AM LEVERS LACE MACHINE OPERATOR 03/25/2011 1:22 PM LEVERS LACE MACHINE OPERATOR Narrative Resulting Agency Comment [facility] [place] [phone] [facility] ??[facility] [phone] Jhonathan Fisher MD LAB - CHEMISTRY ORD ERABLES [facility] INSURANCE BILL * CBC W AUTO DIFFERENTIAL (03/25/2011 8:31 AM LEVERS LACE MACHINE OPERATOR) WBC 6.7 4.0 - 10.5 x10E3/uL [facility] INSURANCE BILL RBC 4.49 3.80 - 5.10 x10E6/uL [facility] INSURANCE BILL Hemoglobin 13.2 11.5 - 15.0 g/dL [facility] INSURANCE BILL Hematocrit 40.6 34.0 - 44.0 % [facility] INSURANCE BILL MCV 90 80 - 98 fL [facility] INSURANCE BILL MCH 29.4 27.0 - 34.0 pg [facility] INSURANCE BILL MCHC 32.5 32.0 - 36.0 g/dL [facility] INSURANCE BILL RDW 13.8 11.7 - 15.0 % [facility] INSURANCE BILL Platelet Count 291 140 - 415 x10E3/uL [facility] INSURANCE BILL Granulocytes % 52 40 - 74 % [facility] INSURANCE BILL Lymphocytes % 30 14 - 46 % [facility] INSURANCE BILL Monocytes % 10 4 - 13 % [facility] INSURANCE BILL Eosinophils % 6 0 - 7 % [facility] INSURANCE BILL Basophils % 2 0 - 3 % [facility] INSURANCE BILL Immature Cells NOT NEEDED [facility] INSURANCE BILL Comment:Ancillary determined the test is not needed Granulocytes Absolute 3.5 1.8 - 7.8 x10E3/uL [facility] INSURANCE BILL Lymphocytes Absolute 2.0 0.7 - 4.5 x10E3/uL [facility] INSURANCE BILL Monocytes Absolute 0.7 0.1 - 1.0 x10E3/uL [facility] INSURANCE BILL Eosinophils Absolute 0.4 0.0 - 0.4 x10E3/uL [facility] INSURANCE BILL [...] Blood specimen (specimen) BLOOD SPECIMEN / Unknown 03/25/2011 8:31 AM LEVERS LACE MACHINE OPERATOR 03/25/2011 1:22 PM LEVERS LACE MACHINE OPERATOR Narrative Resulting Agency Comment [facility] [place] [address] ??[facility] [phone] Jhonathan Fisher MD LAB - HEMATOLOGY OR DERABLES Performing Organization Address [facility] de Phone Number [facility] INSURANCE BILL * VITAMIN B12 FOLATE PANEL (03/25/2011 8:31 AM LEVERS LACE MACHINE OPERATOR) Vitamin B12 428 211 - 946 pg/mL [facility] INSURANCE BILL Folate 13.6 >3.0 ng/mL [facility] INSURANCE BILL Comment: ? Indeterminate: ??2.2 - 3.0 ? Deficient: ? <2.2 BLOOD SPECIMEN / Unknown 03/25/2011 8:31 AM LEVERS LACE MACHINE OPERATOR 03/25/2011 1:22 PM LEVERS LACE MACHINE OPERATOR Narrative Resulting Agency Comment [facility] [address] ??[facility] [phone] Jhonathan Fisher MD LAB - CHEMISTRY ORD ERABLES Performing Organization Address [facility] de Phone Number [facility] INSURANCE BILL * (ABNORMAL) LIPID PROFILE (03/25/2011 8:31 AM LEVERS LACE MACHINE OPERATOR) Cholesterol 195 100 - 199 mg/dL [facility] INSURANCE BILL Triglycerides 100 0 - 149 mg/dL [facility] INSURANCE BILL HDL Cholesterol 61 >39 mg/dL [facility] INSURANCE BILL Comment: According to ATP-III Guidelines, HDL-C >59 mg/dL is considered a negative risk factor for CHD. VLDL Calculated 20 5 - 40 mg/dL [facility] INSURANCE BILL LDL Calculated 114(H) 0 - 99 mg/dL [facility] INSURANCE BILL Blood specimen (specimen) BLOOD SPECIMEN / Unknown 03/25/2011 8:31 AM LEVERS LACE MACHINE OPERATOR 03/25/2011 1:22 PM LEVERS LACE MACHINE OPERATOR Narrative Resulting Agency Comment [facility] [place] [address] [facility] ??[facility] [phone] Jhonathan Fisher MD LAB - CHEMISTRY ORD ERABLES [facility] INSURANCE BILL documented in this encounter Visit Diagnoses Diagnosis Routine general medical examination at a health care facility 02/28/11- Primary Routine general medical examination at a health care facility Hypertension Unspecified essential hypertension Hyperlipidemia Other and unspecified hyperlipidemia Allergic rhinitis Allergic rhinitis, cause unspecified Chest pain Chest pain, unspecified Encounter for long-term (current) use of other medications Screening for diabetes mellitus Screening for gout Screening for hyperlipidemia Screening for lipoid disorders Screening for other and unspecified endocrine, nutritional, metabolic, and immunity disorders documented in this encounter Care Teams Ferryboat Helper Relationship Specialty Start Date End Date Jhonathan Fisher MD PCP - General 08/09/08 05/05/14 documented as of this encounter
--- OUTSIDE RECORDS SUMMARY | 2024-03-22 20:13 | XMS_ITS | Encounter Summary ---
Author Organization [facility] Address [address] [facility] [place] [address] Care Team Providers Care Wet End Operator Name Role Phone Jhonathan Fisher MD Primary Care Provider Yohan Michael DPM Unavailable [phone] Reason for Visit * Reason Onset Date Comments Scheduling 11/26/2013 Encounter Details Date Type Department Care Team (Late Contact Info) Description 11/26/2013 Telephone [facility] Internal Medicine [address] [facility] [place] [address] Jhonathan Fisher MD Scheduling Social History Tobacco Use Types Packs/Day Years [...] encounter Miscellaneous Notes * Telephone Encounter - Benoit Wadsworth RN - 11/26/2013 10:59 AM CDT Requested OV fro pre-op clearance. Cataract surg 12/20. Will bring form. documented in this encounter Plan of Treatment Upcoming Encounters Date Type Department Care Team (Late Contact Info) Description 06/29/2024 10:00 AM CDT Office Visit [facility] - Internal Medicine [address] [facility] [address] [place] [address] Tamia Brooks MD [address] [facility] [address] [place] [address] documented as of this encounter Visit Diagnoses Not on filedocumented in this encounter Care Teams Wet End Operator Relationship Specialty Start Date End Date Jhonathan Fisher MD PCP - General 08/09/08 05/05/14 Yohan Barros DPM [address] [phone] Podiatry 05/24/13 documented as of this encounter
--- OUTSIDE RECORDS SUMMARY | 2024-03-22 20:13 | XMS_ITS | Encounter Summary ---
Author Organization [facility] Address [address] [facility] [place] [address] Care Team Providers Care Rover Tender Name Role Phone Jhonathan Fisher MD Primary Care Provider Yohan Micahel DPM Unavailable [phone] Reason for Visit * Auth/Cert - Closed Specialty Diagnoses / Procedures Referred By Valeria ramesh Referred To Contact Diagnoses Special screening for malignant neoplasms, colon Procedures COLONOSCOPY SCREEN Referral ID Status Reason Start Date Expiration Date Visits Re quested Visits Authorized [id number] Closed 1 1 Encounter Details Date Type Department Care Team (Late st Contact Info) Description 11/05/2013 9:16 AM CDT Anesthesia Event [facility] - Endoscopy Services [address] [place] [id number] Jhonathan Mejia MD [address] [place], [place] [id number] Natasha Ross, MOBI[employer] INSTALLER-HR INTERNSHIP [address] [place] [address] Anesthesia Record Procedure Summary Procedure Name Responsible Anesthesiologist Anesthesia Start Time Anesthesia Stop Time COLONOSCOPY SCREEN Jhonathan Mejia MD 11/05/13 09 16 11/05/13 0943 Events Date Time Event Comment 11/05/2013 0819 0916 An Start 0916 An Start Data 0916 PT Reassessment Patient and Vital Signs reassessed prior to induction. 0920 Elect Sign The providers l isted as staff are the responsible providers for the case. 0943 an stop data 0943 An Stop Meds Name Total lidocaine (XYLOCAINE) 2% injection (20 m g/ml) 40 mg propofol (DIPRIVAN) injection 10mg/ml (E NDO USE) 30 mL * Agents Name O2 * Blood No blood administrations on file. Lines, Drains, and Airways Type Details Placement Removal Peripheral IV Date: 11/05/13; Time : 07; Orientation: Right; Placed By: isabelle antunez rn 11/05/13 0749 by Sherri Benton LPN 11/05/13 1011 by Michelle Kay RN documented in this encounter Social History Tobacco [...] as of this encounter Progress Notes * Natasha Ross APRN-HR INTERNSHIP - 11/05/2013 9:45 AM CDT ANESTHESIA POSTPROCEDURE EVALUATION Maura Watkins is a 63 y.o. female Pulse: 57 BP: 122/66 mmHg Pain Rating Score #: 0 Anesthesia Type: general Mental status: sufficiently recovered from acute administration of anesthesia to participate in theevaluation and neurologic status has returned to preoperative level. Level of consciousness: awake No numbness, tingling or visual disturbances present. General appearance: well-appearing Respiratory function: natural airway. Cardiac: stable Pain: comfortable/acceptable PONV: None Postop hydration: adequate. Patient may be released from anesthesia care. A postop evaluation was performed on this patient with the following assessment: no apparent anesthesia complications documented in this encounter Consult Notes * Lindsay Kearns APRN-HR INTERNSHIP - 11/05/2013 8:18 AM CDT Pre-anesthesia Evaluation Procedure(s) (LRB): COLONOSCOPY SCREEN (N/A) Vital Signs: Pulse: 57 (11/05 746) BP: 122/66 mmHg (11/05 746) BMI: Estimated body mass index is 24.41 kg/(m^2) as calculated from the following: Height as of this encounter: 5' 5.5 (1.664 m). Weight as of this encounter: 149 lb (67.586 kg). History: Past Medical History Diagnosis Date ??? UTI ??? Allergic rhinitis 09/20/2008 ??? Hypertension 09/20/2008 ??? Hyperlipidemia 09/20/2008 ??? Herpes zoster 04/12/2010 ??? Adductor tendonitis, right thigh 04/27/12 04/27/2012 ??? Anhydrotic dermatitis of foot 04/27/12 04/27/2012 ??? Primary osteoarthritis of both knees 10/27/2012 ??? Insulin resistance 10/27/2012 Past Surgical History Procedure Laterality Date ??? Hysterectomy ??? Endoscopy, colon, screening 06/23/06 reports that she quit smoking about 23 years ago. Her smoking use included Cigarettes. She smoked 0.00 packs per day. She has never used smokeless tobacco. She reports that she drinks alcohol. She reports that she does not use illicit drugs. Allergies: is allergic to darvon. Medications: Prescriptions prior to admission Medication Sig Dispense [...] Tab by mouth once daily as needed. No current facility-administered medications on file prior to encounter. Current Outpatient Prescriptions on File Prior to Encounter Medication Sig Dispense Refill ??? lisinopril (PRINIVIL; [...] Tab by mouth once daily as needed. Physical Exam: NPO status: no liquids within 2 hours (Coffee, black at 0600) Oriented to person, place and time Airway: I Neck ROM: full Dental exam findings: caps/crowns upper and caps/crowns lower Pulmonary exam: breath sounds CTA Heart sounds: S1 S2 Negative for anesthesia complications Plan for Anesthesia: ASA Score: 2. Anesthesia plan: general and MAC Planned method of induction: intravenous Planned postop destination: endo Anesthesia plan, risks and benefits discussed with patient Anesthesia consent: obtained Plan accepted yes Discussed anesthesia plan with: anesthesiologist. documented in this encounter Plan of Treatment Upcoming Encounters Date Type Department Care Team (Late st Contact Info) Description 06/29/2024 10:00 AM CDT Office Visit [facility] - Internal Medicine [address] [place] [address] [place] [phone] Tamia Brooks MD [address] [place] [address] [place] [phone] documented as of this encounter Visit Diagnoses Not on filedocumented in this encounter Administered Medications Inactive Administered Medications - up to 3 most recent administrations Medication Order MAR Action Action Date Dose Rate Site lidocaine (XYLOCAINE) 2 % injection PRN, Starting on Fri11/05/13 at 0919, Until Fri11/05/13 at 0943, Anesthesia Intra-op $ Given 11/05/2013 9:19 AM CDT 40 mg propofol (DIPRIVAN) injection CONTINUOUS PRN, Starting on Fri11/05/13 at 0919, Until Fri11/05/13 at 0943, Anesthesia Intra-op $ New Bag/Syringe 11/05/2013 9:19 AM CDT documented in this encounter Care Teams Rover Tender Relationship Specialty Start Date End Date Jhonathan Fisher MD PCP - General 08/09/08 05/05/14 Yohan Barros DPM [address] [facility] [address] [phone] Podiatry 05/24/13 documented as of this encounter
--- OUTSIDE RECORDS SUMMARY | 2024-03-22 20:13 | XMS_ITS | Encounter Summary ---
Author Organization [facility] Address [address] [place] [address] Care Team Providers Care President Finance Company Name Role Phone Jhonathan Fisher MD Primary Care Provider Yohan Michael DPM Unavailable [phone] Reason for Visit * Reason Onset Date Comments URI 12/02/2013 Encounter Details Date Type Department Care Team (Late st Contact Info) Description 12/02/2013 Telephone [facility] Medical [facility] - Internal Medicine [address] [facility] [place] [place] [address] [place] [address] Jhonathan Fisher MD URI Social History Tobacco Use Types Packs/Day Years [...] * Telephone Encounter - Cassy Mendez - 12/02/2013 11:56 AM CDT Advised pt of doctor's notation below. She will try the Advil cold and sinus. She said it started Friday with sinus problems. * Telephone Encounter - Jhonathan Fisher MD - 12/02/2013 11:20 AM CDT Needs to take Mucinex D or Advil cold and sinus How long ill * Telephone Encounter - Cassy Mendez - 12/02/2013 9:08 AM CDT Pt c/o cold like sx's. Head congestion, ears popping, sinus drainage(clear), non-productive cough, hoarse when talking. No fever. Feels like it is moving into chest. Pt has been using Mucinex and Tylenol with no relief. documented in this encounter Plan of Treatment Upcoming Encounters Date Type Department Care Team (Late st Contact Info) Description 06/29/2024 10:00 AM CDT Office Visit [facility] - Internal Medicine [address] [phone] Tamia Brooks MD [address] [place] [phone] documented as of this encounter Goals Goal Patient Goal Type Associated Problems Recent Progress Patient-Stated? Author Blood Pressure < 140/90 Blood Pressure 130/70( 024 1:19 PM CDT) No Lola Neff MA documented as of this encounter Visit Diagnoses Not on filedocumented in this encounter Care Teams President Finance Company Relationship Specialty Start Date End Date Jhonathan Fisher MD PCP - General 08/09/08 05/05/14 Yohan Barros DPM [facility] [address] [place] [address] Podiatry 05/24/13 documented as of this encounter
--- OUTSIDE RECORDS SUMMARY | 2024-03-22 20:13 | XMS_ITS | Encounter Summary ---
Author Organization [facility] Address [address] [facility] [place] [address] Care Team Providers Care Party Planner Name Role Phone Jhonathan Fisher MD Primary Care Provider Unav ailable Encounter Details Date Type Department Care Team ([facility] Contact Info) Description 06/07/2012 Orders Only [facility] - Internal Medicine [address] [facility] [place] [address] Jhonathan Fisher MD Social History Tobacco Use [...] Upcoming Encounters Date Type Department Care Team ([facility] Contact Info) Description 06/29/2024 10:00 AM CDT Office Visit [facility] - Internal Medicine [address] [place] [phone] Tamia Brooks MD [address] [place] [phone] documented as of this encounter Visit Diagnoses Not on filedocumented in this encounter Care Teams Party Planner Relationship Specialty Start Date End Date Jhonathan Fisher MD PCP - General 08/09/08 05/05/14 documented as of this encounter
--- OUTSIDE RECORDS SUMMARY | 2024-03-22 20:13 | XMS_ITS | Encounter Summary ---
Author Organization [facility] Address [address] [facility] [place] [address] Care Team Providers Care Technical Instructor Name Role Phone Yohan Barros DPM Unavailable [phone] Lemuel Hoang MD Primary Care Provider Unavailab le Reason for Visit * Reason Comments Fall Encounter Details Date Type Department Care Team (Late st Contact Info) Description 06/05/2015 1:00 PM CDT Office Visit [facility] Medical [facility] - Internal Medicine [address] [facility] [place] [address] [place] [address] Lemuel Hoang MD RETIRED Myositis of multiple sites, unspecified myositis type (Primary Dx) Social History Tobacco Use Types [...] Reading Time Taken Comments Blood Pressure 142/90 06/05/2015 1:05 PM CDT Pulse 65 06/05/2015 1:05 PM CDT Temperature 36.8 ??C (98.2 ??F) 06/05/2015 1:05 PM CD T Respiratory Rate - - Oxygen Saturation 99% 06/05/2015 1:05 PM CDT Inhaled Oxygen Concentration - - Weight 71.6 kg (157 lb 12.8 oz) 06/05/2015 1:05 PM CDT Height 162.6 cm (5' 4.02 ) 06/05/2015 1:05 PM CD T Body Mass Index 27.07 06/05/2015 1:05 PM CDT documented in this encounter Progress Notes * Lemuel Hoang MD - 06/22/2015 2:23 PM CDT Encounter Date: 06/05/2015 ASSESSMENT/PLAN: 1. Myositis of multiple sites, unspecified myositis type - secondary reaction to recent fall. No fractures reported on x-rays done at an urgent care. - CK BLOOD - BASIC METABOLIC PANEL (CALCIUM TOTAL) - diclofenac sodium EC (VOLTAREN) 50 MG tablet; Take 1 Tab by mouth 2 times daily with morning and evening meal Dispense: 60 Tab; Refill: 0 - ranitidine (ZANTAC) 150 MG tablet; Take 1 Tab by mouth at bedtime for 30 days - discontinue atorvastatin for next 5 months, will recheck her lipid and restart as indicated. Return as scheduled in July. HPI: Maura Watkins is a 65 y.o. female who presents with complaint of moderate to severe aching pain in arms and legs, onset after a fall with bruising of her right elbow and right leg. She reports normalx-rays done in urgent care. The aching began a couple of days after the fall. She has good muscle strength. No neck or back pain. No swelling or redness of her joints. No nausea, vomiting, or diarrhea. No urinary symptoms. PSFHx: Problem List, Medication List, History, and Allergies reviewed and updated in [facility] EHR. OBJECTIVE: BP 142/90 mmHg Pulse 65 Temp(Src) 98.2 ??F Wt 71.578 kg (157 lb 12.8 oz) BMI 27.07 kg/m2 Gen: VS reviewed for visit. Patient alert, oriented, well-hydrated, in no acute distress. Lungs: Clear to auscultation and percussion. CV: Regular rate and rhythm. No murmurs. Pulses normal. Musculoskeletal: Normal ROM of all joints. No erythema, swelling or tenderness. Lemuel Hoang MD * Lemuel Hoang MD - 06/06/2015 3:26 PM CDTKrystle Note: Lab results released to [employer]. Message sent to patient. documented in this encounter Plan of Treatment Upcoming Encounters Date Type Department Care Team (Late st Contact Info) Description 06/29/2024 10:00 AM CDT Office Visit [facility] - Internal Medicine [address] [facility] [address] [place] [address] Tamia Brooks MD [address] [place] [address] [address] [place] [address] documented as of this encounter Goals Goal Patient Goal Type Associated Problems Recent Progress Patient-Stated? Author Blood Pressure < 140/90 Blood Pressure 130/70( 024 1:19 PM CDT) No Lola Neff MA documented as of this encounter Procedures Procedure Name Priority Date/Time Associated Diagnosis Comments BASIC METABOLIC PANEL (CALCIUM TOTAL) Routine 06/05/2015 1:30 PM CDT Myositis of multiple sites, unspecified myositis type CK BLOOD Routine 06/05/2015 1:30 PM CDT Myositis of multiple sites, unspecified myositis type documented in this encounter Results * (ABNORMAL) BASIC METABOLIC PANEL (CALCIUM TOTAL) (06/05/2015 1:30 PM CDT) Glucose 92 74 - 106 mg/dL [facility] INSURANCE BILL BUN 23(H) 7 - 21 mg/dL [facility] INSURANCE BILL Creatinine 1.10 0.50 - 1.30 mg/dL [facility] INSURANCE BILL eGFR by MDRD 50(L) >60 mL/min/1.7 3m2 [facility] INSURANCE BILL eGFR by MDRD 60(L) >60 mL/min/1.7 3m2 [facility] INSURANCE BILL Sodium 140 136 - 145 mmol/L [facility] INSURANCE BILL Potassium 4.5 3.5 - 5.1 mmol/L [facility] INSURANCE BILL Chloride 105 98 - 107 mmol/L [facility] INSURANCE BILL CO2 28 22 - 31 mmol/L [facility] INSURANCE BILL Calcium 9.7 8.5 - 10.1 mg/dL [facility] INSURANCE BILL Blood specimen (specimen) BLOOD SPECIMEN / Unknown 06/05/2015 1:30 PM CDT 06/05/2015 6:23 PM CDT Narrative Resulting Agency Comment [facility] [address] [place] [address] ??[facility] [phone] Lemuel Hoang MD LAB - CHEMISTRY PREETI COSTA Performing Organization Address City/[facility] Co de Phone Number [facility] INSURANCE BILL * CK BLOOD (06/05/2015 1:30 PM CDT) CK 124 35 - 232 U/L [facility] INSURANCE BILL Blood specimen (specimen) BLOOD SPECIMEN / Unknown 06/05/2015 1:30 PM CDT 06/05/2015 6:23 PM CDT Narrative Resulting Agency Comment [facility] [address] [place] [address] ??[facility] [phone] Lemuel Hoang MD LAB - CHEMISTRY PREETI COSTA Performing Organization Address City/[facility] Co de Phone Number [facility] INSURANCE BILL documented in this encounter Visit Diagnoses Diagnosis Myositis of multiple sites, unspecified myositis type- Primary documented in this encounter Care Teams Technical Instructor Relationship Specialty Start Date End Date Lemuel Hoang MD [address] [address] PCP - General Family Medicine 05/06/14 07/25/16 Yohan Barros DPM [address] [address] Podiatry 05/24/13 documented as of this encounter
--- OUTSIDE RECORDS SUMMARY | 2024-03-22 20:13 | XMS_ITS | Encounter Summary ---
Author Organization [facility] Address [address] [place] [address] Care Team Providers Care Reception Name Role Phone Yohan Barros DPM Unavailable [phone] Lemuel Hoang MD Primary Care Provider Unavailab le Reason for Visit * Reason Onset Date Comments Cold Symptoms 08/10/2015 Encounter Details Date Type Department Care Team (Late st Contact Info) Description 08/10/2015 Telephone [facility] - Internal Medicine [address] [facility] [place] [address] Lemuel Hoang MD RETIRED Cold Symptoms Social History Tobacco Use Types Packs/Day Years [...] * Telephone Encounter - Carmen Erazo - 08/10/2015 4:58 PM CDT Left detailed message re rx for prednisone, pt informed of OTC nasacort, call office if sx worsen * Telephone Encounter - Lemuel Hoang MD - 08/10/2015 3:55 PM CDT A course of prednisone is fine. This may help her allergy symptoms as well. She can also use Nasacort OTC 1 spray in each nostril once daily which will be working as the prednisone is finished. Orderpended. Lemuel Hoang MD * Telephone Encounter - Carmen Erazo - 08/10/2015 9:19 AM CDT Pt is experiencing sinus drainage, cough, rn, pain both ears, sore throat x 3 days, pt taking Mucinex DM pt states she can't take anything w/ ephedrine not sure if this is allergies both her and spouse were mulching on Sun, inquiring what other meds OTC she can take for sx pt is also experiencing tightness and rash that looks like round circles on both feet, pt states Dr. Fisher has given pt Prednisone in the past should she follow up w/ derm or are you able to prescribe please advise. documented in this encounter Plan of Treatment Upcoming Encounters Date Type Department Care Team (Late st Contact Info) Description 06/29/2024 10:00 AM CDT Office Visit [facility] - Internal Medicine [address] [phone] Tamia Brooks MD [address] [place] [phone] documented as of this encounter Goals Goal Patient Goal Type Associated Problems Recent Progress Patient-Stated? Author Blood Pressure < 140/90 Blood Pressure 130/70( 024 1:19 PM CDT) No Lola Neff MA documented as of this encounter Visit Diagnoses Not on filedocumented in this encounter Care Teams Reception Relationship Specialty Start Date End Date Lemuel Hoang MD [address] [address] PCP - General Family Medicine 05/06/14 07/25/16 Yohan Barros DPM [address] [address] Podiatry 05/24/13 documented as of this encounter
--- OUTSIDE RECORDS SUMMARY | 2024-03-22 20:13 | XMS_ITS | Encounter Summary ---
Author Organization [facility] Address [address] [facility] [place] [address] Care Team Providers Care Extra Hand Name Role Phone Jhonathan Fisher MD Primary Care Provider Yohan Michael DPM Unavailable [phone] Reason for Visit * Reason Comments Hypertension Encounter Details Date Type Department Care Team (Late st Contact Info) Description 01/07/2014 12:30 PM CDT Office Visit [facility] Medical [facility] - Internal Medicine [address] [facility] [place] [address] Jhonathan Fisher MD Hypertension (Primary Dx); Hyperlipidemia; Insulin resistance; Allergic rhinitis Social History Tobacco Use Types [...] Sign Reading Time Taken Comments Blood Pressure 126/78 01/07/2014 12:35 PM CDT Pulse 76 01/07/2014 12:35 PM CDT Temperature - - Respiratory Rate 14 01/07/2014 12:35 PM CDT Oxygen Saturation - - Inhaled Oxygen Concentration - - Weight 65.3 kg (144 lb) 01/07/2014 12:35 PM CDT Height 163.8 cm (5' 4.49 ) 01/07/2014 12:35 PM C DT Body Mass Index 24.34 01/07/2014 12:35 PM CDT documented in this encounter Patient Instructions * Patient Instructions* Lizbeth He - 01/07/2014 12:36 PM CDT Caring for Your High Blood [...] Where can I go for more information? [employer] National [facility]: http://www.americanheart.org 1. In the top header, click ???Conditions?? . 2. In the top header, click ???high blood pressure.?? 3. For a printable blood pressure tracker, scroll toward the bottom of the page to Related Tools, and click ???HBP Trackers.?? 2-637-KOL-USA-1 or ( ) National Heart, Lung and Blood [place]: http://www.nhlbi.nih.gov/health/infoctr/index.htm documented in this encounter Progress Notes * Jhonathan Fisher MD - 01/17/2014 6:00 PM CST SUBJECTIVE: Patient Active Problem List Diagnosis ??? Allergic [...] osteoarthritis of both knees ??? Insulin resistance The patient is seen in followup of [...] was emphasized. ?? The last A1c was 6.1%. Magnus monofilament exam of the feet is negative The pt is seen in followup of [...] cough, hoarseness, or GERD. Nosore throats. The pt has chronic SITUATIONAL ANXIETY. ?? The pt requires the use of CHRONIC ANTI-ANXIETY medication ?? The pt's current medical regimen has been EFFECTIVE and free of significant SIDE-EFFECTS. ?? The pt denies any significant FOCUS issues involving ADL's. ?? The pt denies any disruption of her normal sleep activities. ?? The pt has not required periodic PSYCHOLOGICAL COUNSELING. A total of 25 minutes was spent on examination and counseling regarding this office visit, with greater than 50% face to face counseling. Have reviewed patients medications for changes and refills ifnecessary. I have reviewed the patient's medical history in detail and updated the computerized patient record. Current Outpatient Prescriptions on File Prior to Visit Medication Sig Dispense Refill ??? LORazepam (ATIVAN) 0.5 MG tablet Take 1 Tab by mouth 3 times daily as needed. (Patient taking differently: Take 0.5 mg by mouth 3 times daily as needed. Indications: once a day) 90 Tab 1 ??? lisinopril (PRINIVIL; ZESTRIL) 40 MG tablet Take 1 Tab by mouth once daily. 90 Tab 3 ??? amLODIPine (NORVASC) 5 MG tablet Take 1 Tab by mouth once daily. 90 Tab 3 ??? atorvastatin (LIPITOR) 40 MG tablet TAKE ONE TABLET BY MOUTH AT BEDTIME 90 Tab 2 ??? Multiple Vitamins-Minerals (CENTRUM SILVER ULTRA WOMENS) TABS Take 1 Tab by mouth once daily. ??? Pseudoephedrine-Guaifenesin (MUCINEX D PO) Take 1 Tab by mouth once daily as needed. No current facility-administered medications on file prior to visit. OBJECTIVE: BP 126/78 Pulse 76 Resp 14 Wt 65.318 kg (144 lb) BMI 24.34 kg/m2 General appearance: alert, cooperative, no distress HEENT: Hypopharynx with posterior pharyngitis Turbinates congested bilateraly Heart: regular rhythm, normal S1 and S2, without murmurs, rubs or gallops Lungs: breath sounds normal and symmetric; no rales or wheezes Abdomen: normal bowl sounds; no palpable organomegaly or masses Extremities: No edema, Stasis dermatitis changes Neuro: Sensory and motor are grossly intact. DTR's are symmetrical and normoactive. Balance is steady. Gait is satisfactory. ASSESSMENT: Encounter Diagnoses Name Primary? Hypertension Yes ??? Hyperlipidemia ??? Insulin resistance ??? Allergic rhinitis PLAN: No orders of the defined types were placed in this encounter. STAND ATTENDANT * Lizbeth He - 01/07/2014 12:36 PM CDT Screenings Future Falls: Depression: PHQ-2: PHQ-9: STAND ATTENDANT documented in this encounter Plan of Treatment Upcoming Encounters Date Type Department Care Team (Late st Contact Info) Description 06/29/2024 10:00 AM CDT Office Visit [facility] - Internal Medicine [address] [facility] [address] [place] [address] [place] [address] [place] [phone] documented as of this encounter Goals Goal Patient Goal Type Associated Problems Recent Progress Patient-Stated? Author Blood Pressure < 140/90 Blood Pressure 130/70( 024 1:19 PM CDT) Lola Serna MA documented as of this encounter Visit Diagnoses Diagnosis Hypertension- Primary Unspecified essential hypertension Hyperlipidemia Other and unspecified hyperlipidemia Insulin resistance Dysmetabolic Syndrome X Allergic rhinitis documented in this encounter Care Teams Extra Hand Relationship Specialty Start Date End Date Jhonathan Fisher MD PCP - General 08/09/08 05/05/14 Yohan Barros DPM [facility] [place] [address] [phone] Podiatry 05/24/13 documented as of this encounter
--- OUTSIDE RECORDS SUMMARY | 2024-03-22 20:13 | XMS_ITS | Encounter Summary ---
Author Organization [facility] Address [address] [facility] [place] [address] Care Team Providers Care Automotive Maintenance Technician Name Role Phone Jhonathan Fisher MD Primary Care Provider Unav ailable Reason for Visit * Reason Onset Date Comments Swelling 05/31/2011 Encounter Details Date Type Department Care Team (Late st Contact Info) Description 05/31/2011 Telephone [facility] Medical [facility] - Internal Medicine [address] [facility] [place] [address] Jhonathan Fisher MD Swelling Social History Tobacco Use Types Packs/Day Years [...] Telephone Encounter - Bee Aldridge RN - 05/31/2011 1:03 PM CDT She voices understanding and acceptance of this advice and will call back if any further questions or concerns. Follow up appointment made for Friday. * Telephone Encounter - María Ellis MD - 05/31/2011 12:19 PM CDT rec low salt diet and elevate legs. If needing to be standing for prolonged periods then use compression stockings. REc f/u appt to evaluate. REport any SOB, HERBERT, CP. * Telephone Encounter - Bee Aldridge, RN - 05/31/2011 12:09 PM CDT Pt co x 2 weeks of pitting edema and soreness from her feet to mid calf. When first started only occurred in the evening but now happing during the day as well. Swelling is progressively getting worse. Last night ate salty chips and drank margaritas. This morning her ankles are so swollen she cannot see her ankle bones. Had a vascular screening done through [facility] last week and has not received the results yet. documented in this encounter Plan of Treatment Upcoming Encounters Date Type Department Care Team (Late st Contact Info) Description 06/29/2024 10:00 AM CDT Office Visit [facility] - Internal Medicine [address] [place] [phone] Tamia Brooks MD [address] [place] [phone] documented as of this encounter Visit Diagnoses Not on filedocumented in this encounter Care Teams Automotive Maintenance Technician Relationship Specialty Start Date End Date Jhonathan Fisher MD PCP - General 08/09/08 05/05/14 documented as of this encounter
--- OUTSIDE RECORDS SUMMARY | 2024-03-22 20:13 | XMS_ITS | Encounter Summary ---
Author Organization [facility] Address [address] [place] [address] Care Team Providers Care Branch Service Representative Name Role Phone Jhonathan Fisher MD Primary Care Provider Unav ailable Reason for Visit * Reason Onset Date Comments Pain Foot 05/03/2010 Encounter Details Date Type Department Care Team (Late st Contact Info) Description 05/03/2010 Telephone [facility] Medical [facility] - Internal Medicine [address] [facility] [place] [place] [address] Jhonathan Fisher MD Pain Foot Social History Tobacco Use Types Packs/Day Years [...] Telephone Encounter - Sunita Valenzuela MA - 05/03/2010 2:43 PM CST Pt. Notified of order faxed to radiology at [facility]. Imaging to [phone]. INSPECTOR * Telephone Encounter - Jhonathan Fisher MD - 05/03/2010 2:36 PM HAND INSPECTOR Ok to order xray from [facility] INSPECTOR * Telephone Encounter - Sunita Valenzuela MA - 05/03/2010 11:40 AM CST Pt. Called states on past Friday was doing gardening and slipped on some wet dirt and twisted herleft foot, she states very painful with swelling to the area the side and top of left fott between her pinky toe to the heel area asking if she can get an xray of this foot? She will go to [facility]? INSPECTOR documented in this encounter Plan of Treatment Upcoming Encounters Date Type Department Care Team (Late st Contact Info) Description 06/29/2024 10:00 AM CDT Office Visit [facility] - Internal Medicine [address] [facility] [address] [place] [phone] Tamia Brooks MD [address] [place] [address] [place] [phone] documented as of this encounter Results * XR FOOT 2 VW LEFT (05/03/2010) Anatomical Region Laterality Modality Ankle / Foot Other Jhonathan Fisher MD DIAGNOSTIC IMAGING ORDERABLES documented in this encounter Visit Diagnoses Diagnosis Injury of left foot- Primary Injury, other and unspecified, knee, leg, ankle, and foot Left foot pain Pain in limb documented in this encounter Care Teams Branch Service Representative Relationship Specialty Start Date End Date Jhonathan Fisher MD PCP - General 08/09/08 05/05/14 documented as of this encounter
--- OUTSIDE RECORDS SUMMARY | 2024-03-22 20:13 | XMS_ITS | Encounter Summary ---
Author Organization [facility] Address [address] [place] [address] Care Team Providers Care Sheep Herder Name Role Phone Jhonathan Fisher MD Primary Care Provider Unav ailable Reason for Visit * Reason Comments Hypertension Hyperlipidemia Encounter Details Date Type Department Care Team (Latest Contact Info) Description 10/26/2012 1:30 PM CDT Office Visit [facility] Medical [facility] - Internal Medicine [address] [place] [address] [place] [address] Jhonathan Fisher MD Hypertension (Primary Dx); Hyperlipidemia; Anhydrotic dermatitis of foot 04/27/12; Primary osteoarthritis of both knees; Insulin resistance Social History Tobacco Use Types Packs/Day Years [...] Reading Time Taken Comments Blood Pressure 122/76 10/26/2012 1:47 PM CDT Pulse 66 10/26/2012 1:47 PM CDT Temperature - - Respiratory Rate 14 10/26/2012 1:47 PM CDT Oxygen Saturation - - Inhaled Oxygen Concentration - - Weight 74.6 kg (164 lb 6.4 oz) 10/26/2012 1:47 P M CDT Height 165.1 cm (5' 5 ) 10/26/2012 1:47 PM CDT Body Mass Index 27.36 10/26/2012 1:47 PM CDT documented in this encounter Patient Instructions * Patient Instructions* Jhonathan Fisher MD - 10/27/2012 5:[address] Lara for laser of feet and onychomycosis of nails. More exercise!! documented in this encounter Progress Notes * Jhonathan Fisher MD - 10/27/2012 5:21 AM CDT Patient Active Problem List Diagnosis ??? [...] 04/27/12 ??? Primary osteoarthritis of both knees Current Outpatient Prescriptions on File Prior to Visit Medication Status Sig Dispense Refill ??? LORazepam (ATIVAN) 0.5 MG tablet Active Take 1 Tab by mouth 3 times daily as needed. 90 Tab 1 ??? lisinopril (PRINIVIL; ZESTRIL) 40 MG tablet Active Take 1 Tab by mouth once daily. 90 Tab 3 ??? atorvastatin (LIPITOR) 40 MG tablet Active Take 1 Tab by mouth at bedtime. 90 Tab 3 ??? amLODIPine (NORVASC) 5 MG tablet Active Take 1 Tab by mouth once daily. 90 Tab 3 ??? Multiple Vitamins-Minerals (CENTRUM SILVER ULTRA WOMENS) TABS Active Take 1 Tab by mouth once daily. ??? Pseudoephedrine-Guaifenesin (MUCINEX D PO) Active Take 1 Tab by mouth once daily as needed. SUBJECTIVE: the pt is seen in follow [...] eating at home and less eating out. Discussed at length upper body exercises that will not injure rotator cuffs. Bilateral sole issues with fungus and also nails. Will see Promotions Assistant about laser issues. A total of 25 minutes was spent on examination and counseling regarding this office visit, with greater than 50% face to face counseling. Have reviewed patients medications for changes and refills if necessary. I have reviewed thepatient's medical history in detail and updated the computerized patient record. OBJECTIVE: BP 122/76 Pulse 66 Resp 14 Wt 74.571 kg (164 lb 6.4 oz) BMI 27.36 kg/m2 General appearance: alert, cooperative, no distress Skin: dyshydrotic excema both feet, soles, and bilateral onychomycosis. Heart: regular rhythm, normal S1 and S2, without murmurs, rubs or gallops Lungs: breath sounds normal and symmetric; no rales or wheezes Abdomen: normal bowl sounds; no palpable organomegaly or masses Extremities: no clubbing, cyanosis or edema. DJD both knees Neuro: Sensory and motor are grossly intact. DTR's are symmetrical and normoactive. Balance is steady. Gait is satisfactory. ASSESSMENT: Encounter Diagnoses Name Primary? Hypertension Yes ??? Hyperlipidemia ??? Anhydrotic dermatitis of foot 04/27/12 ??? Primary osteoarthritis of both knees PLAN: Orders Placed This Encounter ??? AMB REFERRAL TO PODIATRY Standing Status: Future Number of Occurrences: Standing Expiration Date: 10/27/2013 Referral Type: Evaluate & Treat Referral Reason: Specialty Services Required Referred to Provider: Yohan Barros DPM Number of Visits Requested: 1 ??? vitamin D3 (VITAMIN D3) 1000 UNIT capsule Sig: Take 1 Cap by mouth once daily. Dispense: 100 Cap Refill: 6 documented in this encounter Plan of Treatment Upcoming Encounters Date Type Department Care Team (Late st Contact Info) Description 06/29/2024 10:00 AM CDT Office Visit [facility] - Internal Medicine [address] [facility] [address] [place] [phone] Tamia Brooks MD [facility] [facility] [address] [place] [phone] documented as of this encounter Visit Diagnoses Diagnosis Hypertension- Primary Unspecified essential hypertension Hyperlipidemia Other and unspecified hyperlipidemia Anhydrotic dermatitis of foot 04/27/12 Contact dermatitis and other eczema, due to unspecified cause Primary osteoarthritis of both knees Primary localized osteoarthrosis, lower leg Insulin resistance Dysmetabolic Syndrome X documented in this encounter Care Teams Sheep Herder Relationship Specialty Start Date End Date Jhonathan Fisher MD PCP - General 08/09/08 05/05/14 documented as of this encounter
--- OUTSIDE RECORDS SUMMARY | 2024-03-22 20:13 | XMS_ITS | Encounter Summary ---
Author Organization [facility] Address [address] [place] [address] Care Team Providers Care Manager Equity Name Role Phone Jhonathan Fisher MD Primary Care Provider Unav ailable Reason for Visit * Reason Comments Sleep Apnea Encounter Details Date Type Department Care Team (Late st Contact Info) Description 12/21/2010 11:15 AM CDT Office Visit [facility] Medical [facility] - Pulmonology [address] [facility] [address] [place] [address] Lola Pantoja MD [address] [facility] [address] [place] [address] Unspecified sleep apnea (Primary Dx) Social History [...] Sign Reading Time Taken Comments Blood Pressure 160/96 12/21/2010 11:29 AM CDT Pulse 66 12/21/2010 11:29 AM CDT Temperature - - Respiratory Rate - - Oxygen Saturation 98% 12/21/2010 11:29 AM CDT Inhaled Oxygen Concentration - - Weight 74.8 kg (165 lb) 12/21/2010 11:29 AM CDT Height 166.4 cm (5' 5.5 ) 12/21/2010 11:29 AM CD T Body Mass Index 27.04 12/21/2010 11:29 AM CDT documented in this encounter Progress Notes * Ayse Kaye MA - 12/21/2010 2:13 PM CDTAddended by: AYSE KAYE on: 12/21/2010 02:13 PM Modules accepted: Orders * Lola Pantoja MD - 12/21/2010 11:59 AM CDT Subjective: Patient ID: Maura Watkins is an 60 y.o. white female. Chief Complaint: gasping for air HPI: Maura Watkins is a 60 y.o. female with a history of HTN, who is referred by Dr. Fisher for an evaluation of snoring and gasping for air.. Weekday bedtime is 10:30pm and it takes 10 minutes to fall asleep. She has been taking 0.5 mg of lorazepam at bedtime for there past 10-15 years. Wake time is 7am. Weekend bedtime is same and wake time is same. There are 1-2 awakenings during the night, most for restroom visits. It takes a few minutes to fall back asleep after the nighttime awakenings. Patient does nap 2-3 per week for 60-120 minutes. Patient sleeps in the lateral positions but does wake up on her back. Patient has previously taken medications for sleep. The patient admits to snoring, waking up gasping for air, witnessed apneas and sleep talking. The patient denies acting out dreams and sleep walking. The patient admits to rare auditory hypnogogic and hypnopompic halluciations, but denies cataplexy, and sleep paralysis. The patient does not complain of a need to move their legs at bedtime. The patient denies leg jerks during sleep. The patient finds their sleep sometimes unrefreshing. The patient complains of of daytime sleepiness with an Purling sleepiness score of 6/24. The patient drinks 3 caffeinated beverages per day. Past Medical History Diagnosis Date ??? UTI ??? Allergic rhinitis 09/20/2008 ??? Hypertension 09/20/2008 ??? Hyperlipidemia 09/20/2008 ??? Herpes zoster 04/12/2010 Family History: No known history of sleep disorders Current Outpatient Prescriptions Medication Sig Dispense Refill ??? LORazepam (ATIVAN) 0.5 MG tablet Take 1 Tab by mouth 3 times daily. 90 Tab 4 ??? lisinopril (PRINIVIL; ZESTRIL) 40 MG tablet Take 1 Tab by mouth once daily. 90 Tab 3 ??? atorvastatin (LIPITOR) 10 MG tablet Take 1 Tab by mouth at bedtime. 90 Tab 3 ??? amLODIPine (NORVASC) 5 MG tablet Take 1 Tab by mouth once daily. 30 Tab 5 ??? vitamin D, ergocalciferol, (DRISDOL) 09137 UNIT capsule Take 1 Cap by mouth every 7 days. 12 Cap 3 Allergies Allergen Reactions ??? Darvon History Social History ??? Marital Status: Spouse Name: N/A Number of Children: 0 ??? Years of Education: 13+ Occupational History ??? Not on file. Social History Main Topics ??? Smoking status: Former Smoker Types: Cigarettes Quit date: 03/10/1990 ??? Smokeless tobacco: Not on file ??? Alcohol Use: No ??? Drug Use: No ??? Sexually Active: Not on file Other Topics Concern ??? Not on file Social History Narrative ??? No narrative on file Review of Systems Constitutional: Negative. HENT: Positive for nosebleeds and congestion. Respiratory: Negative. Cardiovascular: Negative. Gastrointestinal: Negative. Genitourinary: Negative. Musculoskeletal: Negative. Neurological: Negative. Endo/Heme/Allergies: Negative. Psychiatric/Behavioral: Negative. Objective: Physical Exam BP 160/96 Pulse 66 Wt 165 lb (74.844 kg) BMI 27.04 kg/m2 Physical Exam General: No acute distess HEENT: Mallampati class III without phonation. Tonsils are grade 2. Neck circumference is 15 inches. Posterior oropharynx appears normal. Cardiac: Normal rhythm and rate, no murmurs or gallops noted. Pulmonary: breath sounds clear to auscultation bilaterally. No crackles of wheezing noted. Abdominal: soft, non-tender Extremity: no edema or cyanosis noted Skin: no facial irritation or abrasions noted Psychiatric: Affect and mood appear normal Neurologic: Patient is alert and oriented. Speech is fluent and there is no aphasia noted. Face is symmetric with symmetric elevation of pharynx. Tongue is midline. Motor: no pronator drift noted. Coordination normal on finger nose finger testing. Assessment: This patient has symptoms of obstructive sleep apnea including snoring, waking up gasping for air and witnessed apneas. The physical exam is notable for a narrow airway which increase the risk of DAILY. Additional risk factors include being a post-menopausal female. We discussed the diagnosis and treatment of DAILY, including positive airway pressure, weight loss, oral mandibular advancement devices and surgery. We discussed how untreated DAILY results in unrefreshing sleep, increases the risk of cardiovascular disease, and increases difficulty in weight loss and blood pressure control. The patientis amenable to diagnostic testing. The episodes of gasping while awake may be related to microsleep episodes of a wake-sleep transition central apnea. Plan: 1. Split night polysomnogram will be ordered and patient will be started on positive airway pressure during the split night if sleep apnea is moderate to severe during the first few hours of testing. 2. Follow up to be determined after sleep study. Thank you for allowing to participate in the care of this very pleasant patient. documented in this encounter Plan of Treatment Upcoming Encounters Date Type Department Care Team (Late st Contact Info) Description 06/29/2024 10:00 AM CDT Office Visit [facility] Medical [facility] - Internal Medicine [address] [phone] Tamia Brooks MD [address] [place] [phone] documented as of this encounter Visit Diagnoses Diagnosis Unspecified sleep apnea- Primary documented in this encounter Care Teams Manager Equity Relationship Specialty Start Date End Date Jhonathan Fisher MD PCP - General 08/09/08 05/05/14 documented as of this encounter
--- OUTSIDE RECORDS SUMMARY | 2024-03-22 20:13 | XMS_ITS | Encounter Summary ---
Author Organization [facility] Address [address] [place] [address] Care Team Providers Care Sales Operations Analyst Name Role Phone Yohan Barros DPM Unavailable [phone] Lemuel Hoang MD Primary Care Provider Unavailab le Reason for Visit * Reason Onset Date Comments MEDICATION REFILL 02/03/2015 Encounter Details Date Type Department Care Team (Late Contact Info) Description 02/03/2015 Refill [facility] - Internal Medicine [address] [facility] [place] [address] Lemuel Hoang MD RETIRED MEDICATION REFILL Social [...] Telephone Encounter - Sunita Valenzuela MA - 02/03/2015 11:58 AM CST Lf on has appt on 06-19-15? FOLDING HELPER documented in this encounter Plan of Treatment Upcoming Encounters Date Type Department Care Team (Late st Contact Info) Description 06/29/2024 10:00 AM CDT Office Visit [facility] - Internal Medicine [address] [facility] [address] [place] [address] Tamia Brooks MD [address] [facility] [address] [place] [phone] documented as of this encounter Goals Goal Patient Goal Type Associated Problems Recent Progress Patient-Stated? Author Blood Pressure < 140/90 Blood Pressure 130/70( 024 1:19 PM CDT) Lola Serna MA documented as of this encounter Visit Diagnoses Not on filedocumented in this encounter Care Teams Sales Operations Analyst Relationship Specialty Start Date End Date Lemuel Hoang MD [address] [place] [phone] PCP - General Family Medicine 05/06/14 07/25/16 Yohan Barros DPM [address] [place] [phone] Podiatry 05/24/13 documented as of this encounter
--- OUTSIDE RECORDS SUMMARY | 2024-03-22 20:13 | XMS_ITS | Encounter Summary ---
Author Organization [facility] Address [address] [facility] [place] [address] Care Team Providers Care Enamel Sprayer Name Role Phone Yohan Barros DPM Unavailable [phone] Lemuel Hoang MD Primary Care Provider Unavailab le Reason for Visit * Reason Onset Date Comments Request Lab Order 09/12/2015 Encounter Details Date Type Department Care Team (Late st Contact Info) Description 09/12/2015 Telephone [facility] Medical [facility] - Internal Medicine [address] [facility] [address] [place], [place] [phone] Lemuel Hoang MD RETIRED Request Lab Order Social History Tobacco Use Types Packs/Day Years [...] encounter Miscellaneous Notes * Telephone Encounter - Lemuel Hoang MD - 10/05/2015 4:41 PM CDTQuick Note: Lab results released to [employer] [facility]) and message sent to patient. She will restart atorvastatin 40 mg once daily * Telephone Encounter - Tiara Moran - 09/12/2015 12:23 PM CDT She voices understanding and acceptance of this advice and will call back if any further questions or concerns. * Telephone Encounter - Lemuel Hoang MD - 09/12/2015 12:08 PM CDT Order entered. Lemuel Hoang MD * Telephone Encounter - Tiara Moran - 09/12/2015 10:22 AM CDT Has not taken her lipitor for several months now; probably six months. Is requesting labs to check cholesterol. documented in this encounter Plan of Treatment Upcoming Encounters Date Type Department Care Team (Late st Contact Info) Description 06/29/2024 10:00 AM CDT Office Visit [facility] - Internal Medicine [address] [place] [address] [place] [phone] Tamia Brooks MD [address] [place] [address] [place] [phone] documented as of this encounter Goals Goal Patient Goal Type Associated Problems Recent Progress Patient-Stated? Author Blood Pressure < 140/90 Blood Pressure 130/70( 024 1:19 PM CDT) Lola Serna MA documented as of this encounter Procedures Procedure Name Priority Date/Time Associated Diagnosis Comments LIPID PROFILE Routine 10/04/2015 7:32 AM CDT Hyperlipidemia, unspecified hyperlipidemia type documented in this encounter Results * (ABNORMAL) LIPID PROFILE (10/04/2015 7:32 AM CDT) Cholesterol 279(H) 100 - 199 mg/dL [facility] INSURANCE BILL Triglycerides 121 0 - 149 mg/dL [facility] INSURANCE BILL HDL Cholesterol 58 >39 mg/dL [facility] INSURANCE BILL Comment: According to ATP-III Guidelines, HDL-C >59 mg/dL is considered a negative risk factor for CHD. VLDL Calculated 24 5 - 40 mg/dL [facility] INSURANCE BILL LDL Calculated 197(H) 0 - 99 mg/dL [facility] INSURANCE BILL Comment NOT NEEDED [facility] INSURANCE BILL Comment:Ancillary determined the test is not needed Blood specimen (specimen) BLOOD SPECIMEN / Unknown 10/04/2015 7:32 AM CDT 10/04/2015 12:48 PM CDT Narrative Resulting Agency Comment [facility] [address] [facility] [phone] Lemuel Hoang MD LAB - CHEMISTRY [facility] Organization Address City/State/ZIP Co de Phone Number [facility] INSURANCE BILL [address] [place] [address] documented in this encounter Visit Diagnoses Diagnosis Hyperlipidemia, unspecified hyperlipidemia type- Primary documented in this encounter Care Teams Enamel Sprayer Relationship Specialty Start Date End Date Lemuel Hoang MD [address] [place] [phone] PCP - General Family Medicine 05/06/14 07/25/16 Yohan Barros DPM [address] [place] [phone] Podiatry 05/24/13 documented as of this encounter
--- OUTSIDE RECORDS SUMMARY | 2024-03-22 20:13 | XMS_ITS | Encounter Summary ---
Author Organization [facility] Address [address] [facility] [place] [address] Care Team Providers Care Blender / Cook Name Role Phone Jhonathan Fisher MD Primary Care Provider Unav ailable Reason for Visit * Reason Onset Date Comments Lower Extremity Problem 11/13/2011 Encounter Details Date Type Department Care Team (Late st Contact Info) Description 11/13/2011 Telephone [facility] - Internal Medicine [address] [place] [address] [place] [address] Jhonathan Fisher MD Lower Extremity Problem Social History Tobacco Use Types Packs/Day [...] Telephone Encounter - Bee Aldridge RN - 11/13/2011 1:32 PM CDT She voices understanding and acceptance of this advice and will call back if any further questions or concerns. * Telephone Encounter - Jhonathan Fisher MD - 11/13/2011 1:08 PM CDT Would like her to see land surveyor assistant to see if is fungal * Telephone Encounter - Bee Aldridge RN - 11/13/2011 10:07 AM CDT Pt using otc amlactin cream on her feet for cracking, peeling, and itching, as advised at last ov. States that the moisture seems to be making it worse. Would like to know if an antifungal would be appropriate? documented in this encounter Plan of Treatment Upcoming Encounters Date Type Department Care Team (Late st Contact Info) Description 06/29/2024 10:00 AM CDT Office Visit [facility] Medical [facility] - Internal Medicine [address] [place] [phone] Tamia Brooks MD [address] [place] [phone] documented as of this encounter Visit Diagnoses Not on filedocumented in this encounter Care Teams Blender / Cook Relationship Specialty Start Date End Date Jhonathan Fisher MD PCP - General 08/09/08 05/05/14 documented as of this encounter
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
--- OUTSIDE RECORDS SUMMARY | 2024-03-22 20:13 | XMS_ITS | Encounter Summary ---
Author Organization [facility] Address [address] [facility] [place] [address] Care Team Providers Care Landscaping Crew Leader Name Role Phone Jhonathan Fisher MD Primary Care Provider Unav ailable Reason for Visit * Reason Comments Refill Request Encounter Details Date Type Department Care Team (Late Contact Info) Description 09/27/2011 Refill [facility] - Internal Medicine [address] [facility] [place] [address] Jhonathan Fisher MD Refill Request Social History [...] Telephone Encounter - Jennifer Valverde LPN - 09/27/2011 10:00 AM CDT appt 03/23/2012 documented in this encounter Plan of Treatment Upcoming Encounters Date Type Department Care Team (Late Contact Info) Description 06/29/2024 10:00 AM CDT Office Visit [facility] - Internal Medicine [address] [phone] Tamia Brooks MD [address] [facility] [address] [place] [address] documented as of this encounter Visit Diagnoses Not on filedocumented in this encounter Care Teams Landscaping Crew Leader Relationship Specialty Start Date End Date Jhonathan Fisher MD PCP - General 08/09/08 05/05/14 documented as of this encounter
--- OUTSIDE RECORDS SUMMARY | 2024-03-22 20:13 | XMS_ITS | Encounter Summary ---
Author Organization [facility] Address [address] [facility] [place] [address] Care Team Providers Care Dike Supervisor Name Role Phone Yohan Barros DPM Unavailable [phone] Lemuel Hoang MD Primary Care Provider Unavailab le Reason for Visit * Reason Onset Date Comments Medication Request 05/06/2014 Encounter Details Date Type Department Care Team (Late st Contact Info) Description 05/06/2014 Telephone [facility] Medical [facility] - Internal Medicine [address] [place] [address] [place] [address] Jhonathan Fisher MD Medication Request Social History [...] Telephone Encounter - Benoit Wadsworth RN - 05/06/2014 4:03 PM CST ordered ING MACHINE OPERATOR * Telephone Encounter - Reese Valverde MD - 05/06/2014 3:56 PM CST Give 90 days with one refill. ING MACHINE OPERATOR * Telephone Encounter - Benoit Wadsworth RN - 05/06/2014 11:01 AM CST Pharm requesting new order for amlodipine. Current RF's not getting approved by Medicare under former PCP order. ING MACHINE OPERATOR documented in this encounter Plan of Treatment Upcoming Encounters Date Type Department Care Team (Late st Contact Info) Description 06/29/2024 10:00 AM CDT Office Visit [facility] - Internal Medicine [address] [facility] [address] [place] [address] [place] [address] [place] [address] [address] [place] [address] documented as of this encounter Goals Goal Patient Goal Type Associated Problems Recent Progress Patient-Stated? Author Blood Pressure < 140/90 Blood Pressure 130/70( 024 1:19 PM CDT) Lola Serna MA documented as of this encounter Visit Diagnoses Not on filedocumented in this encounter Care Teams Dike Supervisor Relationship Specialty Start Date End Date Lemuel Hoang MD [address] [place] [phone] PCP - General Family Medicine 05/06/14 07/25/16 Yohan Barros DPM [address] [place] [phone] Podiatry 05/24/13 documented as of this encounter
--- OUTSIDE RECORDS SUMMARY | 2024-03-22 20:13 | XMS_ITS | Encounter Summary ---
Author Organization [facility] Address [address] [facility] [place] [address] Care Team Providers Care Teaching Associate Name Role Phone Jhonathan Fisher MD Primary Care Provider Yohan Michael DPM Unavailable [phone] Reason for Visit * Auth/Cert - Closed Specialty Diagnoses / Procedures Referred By Valeria ramesh Referred To Contact Diagnoses Special screening for malignant neoplasms, colon Procedures COLONOSCOPY SCREEN Referral ID Status Reason Start Date Expiration Date Visits Re quested Visits Authorized [id number] Closed 1 1 Encounter Details Date Type Department Care Team (Latest Contact Info) Description 11/05/2013 7:18 AM CDT - 11/05/2013 10:22 AM CDT Hospital Encounter [facility] - Endoscopy Services [address] [place] [id number] Jos Scott MD [address] [place] [id number] Surgery General Discharge Disposition: Home or Self [...] PHYSICAL Today's Date: 11/05/2013 8:44 AM Maura Elyan 63 y.o. female Date of Service: 11/05/13 [...] [facility] [address] [facility] [address] [place] [address] Tamia Brooks MD [address] [address] documented as of this encounter Procedures [...] surveillance. ? - Call my office at [phone] if you have any questions. ? Procedure [...] without mention of complication CPT copyright 2013 [employer]. All rights reserved. The codes documented in this report are preliminary and upon cereal miller review may be revised to meet current compliance requirements. ____ Jos Scott MD 11/05/2013 9:48 AM Number of Addenda: 0 Note Initiated On: 11/05/2013 9:10 AM [facility] ENDOSCOPY 11/05/2013 9:10 AM CDT Jos Scott MD GI PROCEDURE [facility] ENDOSCOPY documented in this encounter Visit Diagnoses Not [...] LPN) documented in this encounter Care Teams Teaching Associate Relationship Specialty Start Date End Date Jhonathan Fisher MD PCP - General 08/09/08 05/05/14 Yohan Barros DPM [address] [facility] [address] [place] [phone] Podiatry 05/24/13 documented as of this encounter
--- OUTSIDE RECORDS SUMMARY | 2024-03-22 20:14 | XMS_ITS | Encounter Summary ---
Author Organization [facility] Address [address] [place] [address] Care Team Providers Care Mainspring Barrel Assembly Cleaner Name Role Phone Jhonathan Fisher MD Primary Care Provider Unav ailable Reason for Visit * Reason Comments Hypertension Encounter Details Date Type Department Care Team (Latest Contact Info) Description 04/17/2009 9:45 AM REAL ESTATE FIRM MANAGER Office Visit [facility] Medical [facility] - Internal Medicine [address] [place] [address] [place] [address] Jhonathan Fisher MD Hyperlipidemia (Primary Dx); Allergic Rhinitis; Hypertension; Unspecified Vitamin D Deficiency; UNSPECIFIED HYPOTHYROIDISM; Unspecified Essential Hypertension; Other Vitamin B12 Deficiency Anemia; MIXED HYPERLIPIDEMIA; GOUT; Encounter for Long-Term (Current) Use of Other Medications Social History Tobacco Use Types Packs/Day Years [...] Reading Time Taken Comments Blood Pressure 124/76 04/17/2009 9:49 AM REAL ESTATE FIRM MANAGER Pulse 76 04/17/2009 9:49 AM REAL ESTATE FIRM MANAGER Temperature - - Respiratory Rate 12 04/17/2009 9:49 AM REAL ESTATE FIRM MANAGER Oxygen Saturation - - Inhaled Oxygen Concentration - - Weight 74.4 kg (164 lb) 04/17/2009 9:49 AM REAL ESTATE FIRM MANAGER Height 165.1 cm (5' 5 ) 04/17/2009 9:49 AM REAL ESTATE FIRM MANAGER Body Mass Index 27.29 04/17/2009 9:49 AM REAL ESTATE FIRM MANAGER documented in this encounter Progress Notes * Jhonathan Fisher MD - 05/20/2009 10:50 AM CSTQuick Note: Lab letter sent to patient. ESTATE FIRM MANAGER * Jhonathan Fisher MD - 05/20/2009 10:50 AM CSTAddended by: JHONATHAN FISHER on: 05/20/2009 10:50:05 AM Modules accepted: Orders ESTATE FIRM MANAGER * Jhonathan Fisher MD - 04/17/2009 10:18 AM CST Patient Active Problem List Diagnoses Code ??? Allergic Rhinitis 477.9AD ??? S/P HYSTERECTOMY V88.01E ??? Hypertension 401.9 ??? Hyperlipidemia 272.4 Current outpatient prescriptions prior to encounter Medication Sig Dispense Refill ??? estrogens (conjugated) (PREMARIN) 0.3 MG tablet Take 1 Tab by mouth daily. 90 3 ??? lisinopril (PRINIVIL; ZESTRIL) 40 MG tablet Take 1 Tab by mouth daily. 90 3 ??? atorvastatin (LIPITOR) 10 MG tablet Take 1 Tab by mouth at bedtime. 90 3 No family history on file. Past Medical History Diagnosis Date ??? UTI Past Surgical History Procedure Date ??? Hysterectomy History Substance Use Topics ??? Tobacco Use: Quit Quit date: 03/10/1990 ??? Alcohol Use: No .Subjective: The pt is seen in followup of htn, hyperllipid, and deg osteo. Reviewed the pts current bp=s and exercisse pattern. No issues with same. A long discussion with pt. Regarding her and issues with work and travel. Not sleeping well, and having problems remembering simple thoughts. Reassured regarding her ncqa specialist status following assessment. A total of 25 minutes was spent on examination and counseling regarding this office visit, with greater than 50% face to face counseling I have reviewed the past medical and [...] change. Objective: BP 124/76 Pulse 76 Resp 12 Wt 74.39 kg (164 lb) General appearance: alert, cooperative, no distress Eyes: [...] other abnormalities are noted Assessment: Encounter Diagnoses Code Name Primary? 272.4 Hyperlipidemia Yes ??? 477.9AD Allergic Rhinitis ??? 401.9 Hypertension ??? 268.9 Unspecified Vitamin D Deficiency ??? 244.9 UNSPECIFIED HYPOTHYROIDISM ??? 401.9 Unspecified Essential Hypertension ??? 281.1 Other Vitamin B12 Deficiency Anemia ??? 272.2 MIXED HYPERLIPIDEMIA ??? 274.9H GOUT ??? V58.69 Encounter for Long-Term (Current) Use of Other Medications Plan: Orders Placed This Encounter ??? Vitamin b12 folate panel ??? Cbc w auto differential ??? T4 free ??? Tsh ??? Uric acid blood ??? Vitamin d 25-hydroxy ??? Lipid profile ??? Comprehensive metabolic panel ??? Urinalysis routine auto ??? Lorazepam 0.5 mg po tabs Sig: Take 1 Tab by mouth 3 times daily. Dispense: 100 Refill: 0 NEXT APPT six months ESTATE FIRM MANAGER documented in this encounter Plan of Treatment Upcoming Encounters Date Type Department Care Team (Late st Contact Info) Description 06/29/2024 10:00 AM CDT Office Visit [facility] - Internal Medicine [address] [place] [address] Tamia Brooks MD [address] [place] [address] documented as of this encounter Procedures Procedure Name Priority Date/Time Associated Diagnosis Comments URINALYSIS REFLEX TO MICROSCOPIC NO CULTURE Routine 05/15/2009 9:34 AM REAL ESTATE FIRM MANAGER Encounter for Long-Term (Current) Use of Other Medications URINE MICROSCOPIC ONLY Routine 05/15/2009 9:34 AM REAL ESTATE FIRM MANAGER Encounter for Long-Term (Current) Use of Other Medications COMPREHENSIVE METABOLIC PANEL Routine 05/15/2009 9:32 AM REAL ESTATE FIRM MANAGER Encounter for Long-Term (Current) Use of Other Medications URIC ACID BLOOD Routine 05/15/2009 9:26 AM REAL ESTATE FIRM MANAGER Gout VITAMIN D 25-HYDROXY Routine 05/15/2009 9:26 AM REAL ESTATE FIRM MANAGER Unspecified Vitamin D Deficiency CBC W AUTO DIFFERENTIAL Routine 05/15/2009 9:26 AM REAL ESTATE FIRM MANAGER Encounter for Long-Term (Current) Use of Other Medications VITAMIN B12 FOLATE PANEL Routine 05/15/2009 9:26 AM REAL ESTATE FIRM MANAGER Other Vitamin B12 Deficiency Anemia TSH Routine 05/15/2009 9:26 AM REAL ESTATE FIRM MANAGER Unspecified Hypothyroidism T4 FREE Routine 05/15/2009 9:26 AM REAL ESTATE FIRM MANAGER Unspecified Hypothyroidism LIPID PROFILE Routine 05/15/2009 9:26 AM REAL ESTATE FIRM MANAGER Mixed Hyperlipidemia documented in this encounter Results * (ABNORMAL) URINALYSIS MICROSCOPIC ONLY (05/15/2009 9:34 AM REAL ESTATE FIRM MANAGER) WBC UA 0-5 0 - 5 /hpf [facility] INSURANCE BILL RBC UA 0-3 0 - 3 /hpf [facility] INSURANCE BILL Epithelial Cells (non renal) 0-10 0 - 10 /hpf [facility] INSURANCE BILL Epithelial Cells (renal) NOT AVAIL. [facility] INSURANCE BILL Casts ua Present(A) None seen /lpf [facility] INSURANCE BILL Casts UA Hyaline casts N/A [facility] INSURANCE BILL Crystals UA Present(A) N/A [facility] INSURANCE BILL Crystals UA Amorphous Sediment N/A [facility] INSURANCE BILL Mucus UA Present Not Estab. [facility] INSURANCE BILL Bacteria UA None seen None seen/Few [facility] INSURANCE BILL Yeast UA NOT AVAIL. [facility] INSURANCE BILL Trichomonas UA NOT AVAIL. [facility] INSURANCE BILL Comment Urine NOT AVAIL. [facility] INSURANCE BILL 05/15/2009 9:34 AM REAL ESTATE FIRM MANAGER 05/15/2009 10:18 PM REAL ESTATE FIRM MANAGER Narrative [facility] INSURANCE BILL - 05/16/2009 6:11 AM REAL ESTATE FIRM MANAGER Additional Result Information EPITHELIAL CELLS (RENAL) /HPF URINE ([facility]): RESULT NOT AVAILABLE YEAST ??URINE ([facility]): RESULT NOT AVAILABLE TRICHOMONAS ??URINE ([facility]): RESULT NOT AVAILABLE COMMENT ??URINE ([facility]): RESULT NOT AVAILABLE Resulting Agency Comment [facility] [address] ??[facility] [phone] Jhonathan Fisher MD LAB - URINALYSIS OR DERABLES [facility] INSURANCE BILL * (ABNORMAL) URINALYSIS ROUTINE AUTO (05/15/2009 9:34 AM REAL ESTATE FIRM MANAGER) Specific Humphrey UA 1.022 1.005 - 1.030 [facility] INSURANCE BILL pH UA 6.5 5.0 - 7.5 [facility] INSURANCE BILL Color UA Yellow Yellow [facility] INSURANCE BILL Appearance Clear Clear [facility] INSURANCE BILL Leukocyte UA Negative Negative [facility] INSURANCE BILL Protein UA Trace Negative/Tra ce [facility] INSURANCE BILL Glucose UA Negative Negative [facility] INSURANCE BILL Ketone UA Trace(A) Negative [facility] INSURANCE BILL Occult Blood Urine Negative Negative [facility] INSURANCE BILL Bilirubin UA Negative Negative [facility] INSURANCE BILL Urobilinogen 1.0 0.0 - 1.9 mg/dL [facility] INSURANCE BILL Nitrite UA Negative Negative [facility] INSURANCE BILL Microscopic Examination Urine [facility] INSURANCE BILL Comment:Microscopic follows if indicated. Microscopic Examination Urine See below: [facility] INSURANCE BILL URINE SPECIMEN OBTAINED BY CLEAN CATCH PROCEDURE / Unknown 05/15/2009 9:34 AM REAL ESTATE FIRM MANAGER 05/15/2009 10:18 PM REAL ESTATE FIRM MANAGER Narrative Resulting Agency Comment [address] ??[facility] [phone] Jhonathan Fisher MD LAB - URINALYSIS OR DERABLES [facility] INSURANCE BILL * (ABNORMAL) COMPREHENSIVE METABOLIC PANEL (05/15/2009 9:32 AM REAL ESTATE FIRM MANAGER) Glucose 99 65 - 99 mg/dL [facility] INSURANCE BILL BUN 20 5 - 26 mg/dL [facility] INSURANCE BILL Creatinine 1.16(H) 0.57 - 1.00 mg/dL [facility] INSURANCE BILL eGFR by MDRD 47(L) >59 mL/min/1.7 3 [facility] INSURANCE BILL eGFR by MDRD 58(L) >59 mL/min/1.7 3 [facility] INSURANCE BILL Comment: Note: ??Persistent reduction for 3 months or more in an eGFR <60 mL/min/1.73 m2 defines CKD. ??Patients with eGFR values >/=60 mL/min/1.73 m2 may also have CKD if evidence of persistent proteinuria is present. Additional information may be found at www.kdoqi.org. BUN/Creatinine Ratio 17 8 - 27 [facility] INSURANCE BILL Sodium 141 135 - 145 mmol/L [facility] INSURANCE BILL Potassium 4.6 3.5 - 5.2 mmol/L [facility] INSURANCE BILL Chloride 101 97 - 108 mmol/L [facility] INSURANCE BILL CO2 24 20 - 32 mmol/L [facility] INSURANCE BILL Calcium 9.8 8.6 - 10.2 mg/dL [facility] INSURANCE BILL Protein Total 7.5 6.0 - 8.5 g/dL [facility] INSURANCE BILL Albumin 5.0(H) 3.6 - 4.8 g/dL [facility] INSURANCE BILL Globulin Total 2.5 1.5 - 4.5 g/dL [facility] INSURANCE BILL Albumin/Globulin Ratio 2.0 1.1 - 2.5 [facility] INSURANCE BILL Bilirubin Total 0.4 0.1 - 1.2 mg/dL [facility] INSURANCE BILL Alkaline Phosphatase 107 25 - 165 IU/L [facility] INSURANCE BILL AST 21 0 - 40 IU/L [facility] INSURANCE BILL ALT 16 0 - 40 IU/L [facility] INSURANCE BILL BLOOD SPECIMEN / Unknown 05/15/2009 9:32 AM REAL ESTATE FIRM MANAGER 05/15/2009 10:20 PM REAL ESTATE FIRM MANAGER Narrative Resulting Agency Comment [facility] [address] ??[facility] [phone] Jhonathan Fisher MD LAB - CHEMISTRY ORD ERABLES [facility] INSURANCE BILL * (ABNORMAL) LIPID PROFILE (05/15/2009 9:26 AM REAL ESTATE FIRM MANAGER) Cholesterol 216(H) 100 - 199 mg/dL [facility] INSURANCE BILL Triglycerides 151(H) 0 - 149 mg/dL [facility] INSURANCE BILL HDL Cholesterol 58 >39 mg/dL [facility] INSURANCE BILL Comment: According to ATP-III Guidelines, HDL-C >59 mg/dL is considered a negative risk factor for CHD. VLDL Calculated 30 5 - 40 mg/dL [facility] INSURANCE BILL LDL Calculated 128(H) 0 - 99 mg/dL [facility] INSURANCE BILL BLOOD SPECIMEN / Unknown 05/15/2009 9:26 AM REAL ESTATE FIRM MANAGER 05/15/2009 10:19 PM REAL ESTATE FIRM MANAGER Narrative Resulting Agency Comment [facility] [address] [address] ??[facility] [phone] Jhonathan Fisher MD LAB - CHEMISTRY ORD ERABLES [facility] INSURANCE BILL * (ABNORMAL) VITAMIN D 25-HYDROXY (05/15/2009 9:26 AM REAL ESTATE FIRM MANAGER) Vitamin D, 25 Hydroxy 23.0(L) 32.0 - 100.0 ng/mL [facility] INSURANCE BILL Comment: Recent studies consider the lower limit of 32.0 ng/mL to be a threshold for optimal health. Ross BW. J Nutr. 2005 Apr;135(2):317-22. BLOOD SPECIMEN / Unknown 05/15/2009 9:26 AM REAL ESTATE FIRM MANAGER 05/15/2009 10:19 PM REAL ESTATE FIRM MANAGER Narrative Resulting Agency Comment [facility] [address] ??[facility] [phone] Jhonathan Fisher MD LAB - CHEMISTRY ORD ERABLES [facility] INSURANCE BILL * URIC ACID BLOOD (05/15/2009 9:26 AM REAL ESTATE FIRM MANAGER) Uric Acid 5.8 2.4 - 8.2 mg/dL [facility] INSURANCE BILL BLOOD SPECIMEN / Unknown 05/15/2009 9:26 AM REAL ESTATE FIRM MANAGER 05/15/2009 10:19 PM REAL ESTATE FIRM MANAGER Narrative Resulting Agency Comment [facility] [address] ??[facility] [phone] Jhonathan Fisher MD LAB - CHEMISTRY ORD ERABLES [facility] INSURANCE BILL * TSH (05/15/2009 9:26 AM REAL ESTATE FIRM MANAGER) TSH 2.630 0.450 - 4.500 uIU/mL [facility] INSURANCE BILL BLOOD SPECIMEN / Unknown 05/15/2009 9:26 AM REAL ESTATE FIRM MANAGER 05/15/2009 10:19 PM REAL ESTATE FIRM MANAGER Narrative Resulting Agency Comment [facility] [address] ??[facility] [phone] Jhonathan Fisher MD LAB - CHEMISTRY ORD ERABLES [facility] INSURANCE BILL * T4 FREE (05/15/2009 9:26 AM REAL ESTATE FIRM MANAGER) T4 Free 1.04 0.82 - 1.77 ng/dL [facility] INSURANCE BILL BLOOD SPECIMEN / Unknown 05/15/2009 9:26 AM REAL ESTATE FIRM MANAGER 05/15/2009 10:19 PM REAL ESTATE FIRM MANAGER Narrative Resulting Agency Comment [facility] [place] [phone] [facility] ??[facility] [phone] Jhonathan Fisher MD LAB - CHEMISTRY ORD ERABLES [facility] INSURANCE BILL * CBC W AUTO DIFFERENTIAL (05/15/2009 9:26 AM REAL ESTATE FIRM MANAGER) WBC 5.4 4.0 - 10.5 x10E3/uL [facility] INSURANCE BILL RBC 4.64 3.80 - 5.10 x10E6/uL [facility] INSURANCE BILL Hemoglobin 14.2 11.5 - 15.0 g/dL [facility] INSURANCE BILL Hematocrit 43.0 34.0 - 44.0 % [facility] INSURANCE BILL MCV 93 80 - 98 fL [facility] INSURANCE BILL MCH 30.7 27.0 - 34.0 pg [facility] INSURANCE BILL MCHC 33.1 32.0 - 36.0 g/dL [facility] INSURANCE BILL RDW 14.5 11.7 - 15.0 % [facility] INSURANCE BILL Platelet Count 227 140 - 415 x10E3/uL [facility] INSURANCE BILL Granulocytes % 62 40 - 74 % [facility] INSURANCE B[facility] Lymphocytes % 25 14 - 46 % [facility] INSURANCE BILL Monocytes % 9 4 - 13 % [facility] INSURANCE BILL Eosinophils % 3 0 - 7 % [facility] INSURANCE BILL Basophils % 1 0 - 3 % [facility] INSURANCE BILL Immature Cells NOT AVAIL. [facility] INSURANCE BILL Granulocytes Absolute 3.3 1.8 - 7.8 x10E3/uL [facility] INSURANCE BILL Lymphocytes Absolute 1.4 0.7 - 4.5 x10E3/uL [facility] INSURANCE BILL Monocytes Absolute 0.5 0.1 - 1.0 x10E3/uL [facility] INSURANCE BILL Eosinophils Absolute 0.2 0.0 - 0.4 x10E3/uL [facility] INSURANCE BILL Basophils Absolute 0.1 0.0 - 0.2 x10E3/uL [facility] INSURANCE BILL Immature Granulocytes NOT AVAIL. [facility] INSURANCE BILL Immature Granulocytes Absolute NOT AVAIL. [facility] INSURANCE BILL nRBC NOT AVAIL. [facility] INSURANCE BILL Comment Hematology NOT AVAIL. [facility] INSURANCE BILL BLOOD SPECIMEN / Unknown 05/15/2009 9:26 AM REAL ESTATE FIRM MANAGER 05/15/2009 10:19 PM REAL ESTATE FIRM MANAGER Narrative [facility] INSURANCE BILL - 05/16/2009 8:32 AM REAL ESTATE FIRM MANAGER Additional Result Information IMMATURE CELLS ([facility]): RESULT NOT AVAILABLE IMMATURE GRANULOCYTES ([facility]): RESULT NOT AVAILABLE IMMATURE GRANS (ABS) ([facility]): RESULT NOT AVAILABLE NRBC ([facility]): RESULT NOT AVAILABLE HEMATOLOGY COMMENTS: ??BLOOD,URINE ([facility]): RESULT NOT AVAILABLE Resulting Agency Comment [facility] [address] ??[facility] [phone] Jhonathan Fisher MD LAB - HEMATOLOGY OR DERABLES [facility] INSURANCE BILL * VITAMIN B12 FOLATE PANEL (05/15/2009 9:26 AM REAL ESTATE FIRM MANAGER) Vitamin B12 424 211 - 911 pg/mL [facility] INSURANCE BILL Comment: ? Effective June 19, 2009, Vitamin B12 will be ? changing to the [employer] ECLIA methodology. The ? reference interval will be changing to: ? 211 - 946 pg/mL Folate 18.9 >5.4 ng/mL [facility] INSURANCE BILL Comment: ? Indeterminate: ??3.4 - 5.4 ? Deficient: ? <3.4 ? . ? Effective June 19, 2009, Folate will be ? changing to the [employer] ECLIA methodology. The ? reference interval will be changing to: ng/mL ??>3.0 ? Indeterminate: ??2.2 - 3.0 ? Deficient: ? <2.2 BLOOD SPECIMEN / Unknown 05/15/2009 9:26 AM REAL ESTATE FIRM MANAGER 05/15/2009 10:19 PM REAL ESTATE FIRM MANAGER Narrative Resulting Agency Comment [facility] [place] [address] ??[place] [phone] Jhonathan Fisher MD LAB - CHEMISTRY ORD [facility] Organization Address City/State/ZIP Co de Phone Number [facility] INSURANCE BILL documented in this encounter Visit Diagnoses Diagnosis Hyperlipidemia- Primary Other and unspecified hyperlipidemia Allergic rhinitis Allergic rhinitis, cause unspecified Hypertension Unspecified essential hypertension Unspecified vitamin D deficiency Unspecified hypothyroidism Other vitamin B12 deficiency anemia Mixed hyperlipidemia Gout Gout, unspecified Encounter for long-term (current) use of other medications documented in this encounter Care Teams Mainspring Barrel Assembly Cleaner Relationship Specialty Start Date End Date Jhonathan Fisher MD PCP - General 08/09/08 05/05/14 documented as of this encounter
--- OUTSIDE RECORDS SUMMARY | 2024-03-22 20:14 | XMS_ITS ---
Author Organization [facility] Address [address] [facility] [place] [address] Care Team Providers Care Escrow Secretary Name Role Phone Yohan Barros DPM Unavailable Tamia Brooks MD Primary Care Provider [phone] Tamia Brooks MD Unavailable [phone] QMM & AWV - [facility]ance Status:Closed (Closed) Start date:03/04/2024 End date:03/05/2024 Close reason:AWV and/or QMM already completed Continued Care and Services Coordination
--- OUTSIDE RECORDS SUMMARY | 2024-03-22 20:14 | XMS_ITS ---
Author Organization [facility] Address [address] [place] [address] Care Team Providers Care Fiber Product Cutting Machine Operator Name Role Phone Yohan Braros DPM Unavailable [phone] Tamia Brooks MD Primary Care Provider [phone] Tamia Brooks MD Unavailable [phone] QMM & AWV - Vibrance Status:Closed (Closed) Start date:04/03/2022 Enrollment date:04/03/2022 Enrollment reason:Identified using claims or encounter data End date:04/30/2022 Close reason:Follow by dynamic observation Continued Care and Services Coordination
--- OUTSIDE RECORDS SUMMARY | 2024-03-22 20:14 | XMS_ITS | Encounter Summary ---
Author Organization [facility] Address [address] [facility] [place] [address] Care Team Providers Care Shuttle Spotter Name Role Phone Unavailable Primary Care Provider Unavailabl e Encounter Details Date Type Department Care Team (Late Contact Info) Description 05/24/2008 Orders Only [facility] - Internal Medicine [address] [facility] [place] [address] Jhonathan Fisher MD Social History Tobacco Use Types Packs/Day Years Used Date Smoking Tobacco: Never Assessed Sex and Gender Information Value Date Recorded Sex Assigned at Not on file Gender Identity Female 11/22/2016 11:14 AM CDT Sexual Orientation Not on file documented as of this encounter Progress Notes * Jhonathan Fisher MD - 06/11/2008 5:40 AM CDTQuick Note: Lab letter sent to patient. documented in this encounter Plan of Treatment Upcoming Encounters Date Type Department Care Team (Late st Contact Info) Description 06/29/2024 10:00 AM CDT Office Visit [facility] - Internal Medicine [address] [phone] Tamia Brooks MD [address] [place] [phone] documented as of this encounter Procedures Procedure Name Priority Date/Time Associated Diagnosis Comments URIC ACID BLOOD 05/24/2008 8:07 AM CDT URINALYSIS REFLEX TO MICROSCOPIC NO CULTURE 05/24/2008 8:07 AM CDT VITAMIN D 25-HYDROXY 05/24/2008 8:07 AM CDT CBC W AUTO DIFFERENTIAL W PLATELETS 05/24/2008 8:07 AM CDT COMPREHENSIVE METABOLIC PANEL 05/24/2008 8:07 AM CDT GGT 05/24/2008 8:07 AM CDT VITAMIN B12 FOLATE PANEL 05/24/2008 8:07 AM CDT TSH 05/24/2008 8:07 AM CDT T4 FREE 05/24/2008 8:07 AM CDT LIPID PROFILE 05/24/2008 8:07 AM CDT documented in this encounter Results * VITAMIN D 25-HYDROXY (05/24/2008 8:07 AM CDT) Vitamin D, 25 Hydroxy 33 20 - 100 ng/mL [facility] Vitamin D, 25 Hydroxy D2 < 4 ng/mL [facility] Vitamin D, 25 Hydroxy D3 33 ng/mL [facility] Comment: 25-OHD3 indicates both endogenous production and supplementation. 25-OHD2 is an indicator of exogenous sources such as diet or supplementation. Therapy is based on measurement of Total 25-OHD, with levels <20 ng/mL indicative of Vitamin D deficiency while levels between 20 ng/mL and 30 ng/mL suggest insufficiency. Optimal levels are >30 ng/mL. REPORT COMMENT: FASTING Test Performed at: [facility] [address] ??[phone] DR JR CHAUDHARI 05/24/2008 8:07 AM CDT 05/25/2008 1:24 AM CDT Jhonathan Fisher MD LAB - CHEMISTRY ORD ERABLES [facility] [address] [place] [address] * VITAMIN B12 FOLATE PANEL (05/24/2008 8:07 AM CDT) [facility] Vitamin B12 421 200 - 1100 pg/mL [facility] Folate 11.4 ng/mL [facility] Comment: ? REFERENCE RANGE: ? LOW: ? < 3.4 ? BORDERLINE: ??3.4-5.4 ? NORMAL: ?> 5.4 Test Performed at: [facility] ??[phone] CECELIA ENRIQUEZ MD 05/24/2008 8:07 AM CDT 05/25/2008 1:24 AM CDT Jhonathan Fisher MD LAB - CHEMISTRY ORD STANLEY Performing Organization Address [facility] de Phone Number [facility] [address] [place] [address] * TSH (05/24/2008 8:07 AM CDT) [facility] TSH 2.12 0.40 - 4.50 mIU/L [facility] Comment: Test Performed at: [facility] ??[phone] CECELAI ENRIQUEZ MD 05/24/2008 8:07 AM CDT 05/25/2008 1:24 AM CDT Jhonathan Fisher MD LAB - CHEMISTRY ORD i2weBLES Performing Organization Address [facility] de Phone Number [facility] [address] [place] [address] * T4 FREE (05/24/2008 8:07 AM CDT) [facility] T4 Free 1.1 0.8 - 1.8 ng/dL [facility] Comment: Test Performed at: [facility] [address] [place], [place] [address], [place] ??[phone] CECELIA ENRIQUEZ MD 05/24/2008 8:07 AM CDT 05/25/2008 1:24 AM CDT Jhonathan Fisher MD LAB - CHEMISTRY ORD ERABLES Performing Organization Address [facility] de Phone Number [facility] [address] [place] [phone] * (ABNORMAL) URINALYSIS ROUTINE AUTO (05/24/2008 8:07 AM CDT) Color UA YELLOW YELLOW [facility] Appearance CLOUDY(A) CLEAR [facility] Specific Butterfield UA 1.017 1.001 - 1.035 [facility] pH UA 7.5 5.0 - 8.0 [facility] Glucose UA NEGATIVE NEGATIVE [facility] Bilirubin UA NEGATIVE NEGATIVE [facility] Ketone UA NEGATIVE NEGATIVE [facility] Blood UA NEGATIVE NEGATIVE [facility] Protein UA NEGATIVE NEGATIVE [facility] Nitrite UA NEGATIVE NEGATIVE [facility] Leukocyte UA NEGATIVE NEGATIVE [facility] WBC UA NONE SEEN < OR = 5 /HPF [facility] RBC UA NONE SEEN < OR = 3 /HPF [facility] Epithelial Cell UA 0-5 < OR = 5 /HPF [facility] Bacteria UA NONE SEEN NONE SEEN /HPF [facility] Hyaline Casts NONE SEEN NONE SEEN /LPF [facility] Comment: Test Performed at: [facility] [address] [place], [place] ??[phone] CECELIA ENRIQUEZ MD 05/24/2008 8:07 AM CDT 05/25/2008 1:24 AM CDT Jhonathan Fisher MD LAB - URINALYSIS OR DERABLES Performing Organization Address [facility] de Phone Number [facility] [address] [place] [address] * CBC W AUTO DIFFERENTIAL W PLATELETS [...] Thousand/u L [facility] Comment: Test Performed at: [facility] [place], [place] ??[phone] CECELIA ENRIQUEZ MD 05/24/2008 8:07 AM CDT 05/25/2008 1:24 AM CDT Jhonathan Fisher MD LAB - HEMATOLOGY OR DERABLES [facility] [address] [place] [address] * (ABNORMAL) COMPREHENSIVE METABOLIC PANEL (05/24/2008 8:07 AM CDT) Glucose 94 65 - 99 mg/dL [facility] Comment:FASTING REFERENCE IN TERVAL BUN 21 7 - 25 mg/dL [facility] Creatinine 1.05 0.60 - 1.18 mg/dL [facility] eGFR by MDRD 53(L) > OR = 60 mL/min/1. 73m2 [facility] eGFR by MDRD >60 > OR = 60 mL/min/1. 73m2 [facility] BUN/Creatinine Ratio NOT APPLICABLE 6 - 22 (calc) [facility] Comment: BUN/CREATININE RATIO IS NOT REPORTED WHEN THE BUN AND CREATININE VALUES ARE WITHIN NORMAL LIMITS. Sodium 144 135 - 146 mmol/L [facility] Potassium 4.1 3.5 - 5.3 mmol/L [facility] Chloride 104 98 - 110 mmol/L [facility] CO2 31 21 - 33 mmol/L [facility] Calcium 9.9 8.6 - 10.2 mg/dL [facility] Protein Total 7.4 6.2 - 8.3 g/dL [facility] Albumin 4.7 3.6 - 5.1 g/dL [facility] Globulin Total 2.7 2.2 - 3.9 g/dL (calc) [facility] Albumin/Globuli n Ratio 1.7 1.0 - 2.1 (calc) [facility] Bilirubin Total 0.5 0.2 - 1.2 mg/dL [facility] Alkaline Phosphatase 112 33 - 130 U/L [facility] AST 19 10 - 35 U/L [facility] ALT 18 6 - 40 U/L [facility] Comment: Test Performed at: [employer] [place], [place] ??[phone] CECELIA ENRIQUEZ MD 05/24/2008 8:07 AM CDT 05/25/2008 1:24 AM CDT Jhonathan Fisher MD LAB - CHEMISTRY ORD ERABLES Performing Organization Address [facility] de Phone Number [facility] [address] [place] [address] * URIC ACID BLOOD (05/24/2008 8:07 AM CDT) Uric Acid 4.8 2.5 - 7.0 mg/dL [facility] Comment: Test Performed at: [facility] [address] [place] [address] ??[phone] CECELIA ENRIQUEZ MD 05/24/2008 8:07 AM CDT 05/25/2008 1:24 AM CDT Jhonathan Fisher MD LAB - CHEMISTRY ORD ERABLES Performing Organization Address [facility] de Phone Number [facility] [id number] [place] [address] * GGT (05/24/2008 8:07 AM CDT) GGT 38 3 - 65 U/L [facility] Comment: Test Performed at: [facility] [address] [place] [address] ??[phone] CECELIA ENRIQUEZ MD 05/24/2008 8:07 AM CDT 05/25/2008 1:24 AM CDT Jhonathan Fisher MD LAB - CHEMISTRY ORD ERABLES Performing Organization Address [facility] de Phone Number [facility] [address] [place] [address] * LIPID PROFILE (05/24/2008 8:07 AM CDT) Triglycerides 100 <150 mg/dL [facility] Comment: Test Performed at: [facility] [address] [place] [address] ??[phone] CECELIA ENRIQUEZ MD Cholesterol 193 125 - 200 mg/dL [facility] HDL Cholesterol 61 > OR = 46 mg/dL [facility] LDL Calculated 112 <130 mg/dL (calc) [facility] Comment: DESIRABLE RANGE <100 MG/DL FOR PATIENTS WITH CHD OR DIABETES AND <70 MG/DL FOR DIABETIC PATIENTS WITH KNOWN HEART DISEASE. CHOL/HDLC RATIO 3.2 < OR = 5.0 (calc) [facility] 05/24/2008 8:07 AM CDT 05/25/2008 1:24 AM CDT Jhonathan Fisher MD LAB - CHEMISTRY ORD ERABLES [facility] [address] [place] [address] documented in this encounter Visit Diagnoses Not on filedocumented in this encounter
--- OUTSIDE RECORDS SUMMARY | 2024-03-22 20:14 | XMS_ITS | Encounter Summary ---
Author Organization [facility] Address [address] [facility] [place] [address] Care Team Providers Care Lacer And Tier Name Role Phone Jhonathan Fisher MD Primary Care Provider Unav ailable Reason for Visit * Reason Onset Date Comments MEDICATION REFILL 08/08/2009 Encounter Details Date Type Department Care Team (Late st Contact Info) Description 08/08/2009 Refill [facility] Medical [facility] - Internal Medicine [address] [facility] [place] [address] Jhonathan Fisher MD MEDICATION REFILL Social History [...] * Telephone Encounter - Natasha Ragland - 08/08/2009 2:28 PM CDT Refill ok called to [facility] * Telephone Encounter - Mary Lou Vines - 08/08/2009 10:41 AM CDT Prescription Refills Pending Prescriptions Disp Refills ??? LORAZEPAM 0.5 MG PO TABS 90 0 Sig: Take 1 Tab by mouth 3 times daily. last fill 04/24/09 documented in this encounter Plan of Treatment Upcoming Encounters Date Type Department Care Team (Late st Contact Info) Description 06/29/2024 10:00 AM CDT Office Visit [facility] - Internal Medicine [address] [place] [phone] Tamia Brooks MD [address] [place] [phone] documented as of this encounter Visit Diagnoses Not on filedocumented in this encounter Care Teams Lacer And Tier Relationship Specialty Start Date End Date Jhonathan Fisher MD PCP - General 08/09/08 05/05/14 documented as of this encounter
--- OUTSIDE RECORDS SUMMARY | 2024-03-22 20:14 | XMS_ITS | Encounter Summary ---
Author Organization [facility] Address [address] [facility] [place] [address] Care Team Providers Care Janitorial Account Manager Name Role Phone Jhonathan Fisher MD Primary Care Provider Unav ailable Reason for Visit * Reason Onset Date Comments Sick 06/19/2009 Encounter Details Date Type Department Care Team (Late st Contact Info) Description 06/19/2009 Telephone [facility] Medical [facility] - Internal Medicine [address] [place] [address] [place] [address] Jhonathan Fisher MD Sick Social History Tobacco Use Types Packs/Day Years [...] encounter Miscellaneous Notes * Telephone Encounter - Maycol Vines - 06/19/2009 1:16 PM CDT Prescription Refills Approved Prescriptions Disp Refills ??? predniSONE (DELTASONE) 20 MG tablet 18 0 Sig: Take by mouth. take 3 tabs for 3 days,2 tabs for 3 days,1 tab for 3 days Authorizing Provider: JHONATHAN FISHER Ordering User: MAYCOL VINES ??? cetirizine (ZYRTEC) 5 MG tablet 60 5 Sig: Take 1 Tab by mouth 2 times daily. Authorizing Provider: JHONATHAN FISHER Ordering User: MAYCOL VINES called pt advised medicine called into the pharmacy. * Telephone Encounter - Jhonathan Fisher MD - 06/19/2009 12:55 PM CDT Zyrtrec d, prednisone 20 #18 same sliding scale * Telephone Encounter - Maycol Vines - 06/19/2009 10:12 AM CDT Pt called allergies acting up over the weekend ears clogged up,red eyes,loss of voice,coughing,no fever. What can she take? documented in this encounter Plan of Treatment Upcoming Encounters Date Type Department Care Team (Late st Contact Info) Description 06/29/2024 10:00 AM CDT Office Visit [facility] - Internal Medicine [address] [place] [address] [place] [phone] Tamia Brooks MD [address] [place] [phone] documented as of this encounter Visit Diagnoses Not on filedocumented in this encounter Care Teams Janitorial Account Manager Relationship Specialty Start Date End Date Jhonathan Fisher MD PCP - General 08/09/08 05/05/14 documented as of this encounter
--- OUTSIDE RECORDS SUMMARY | 2024-03-22 20:14 | XMS_ITS | Encounter Summary ---
Author Organization [facility] Address [address] [facility] [place] [address] Care Team Providers Care Die Cast Operator Name Role Phone Jhonathan Fisher MD Primary Care Provider Unav ailable Encounter Details Date Type Department Care Team (Late Contact Info) Description 04/29/2001 Orders Only [facility] [address] [place] [address] ProviderBrayden MD Social History Tobacco Use Types Packs/Day [...] Description 06/29/2024 10:00 AM CDT Office Visit [facility] Medical [facility] - Internal Medicine [address] [place] [address] [place] [phone] Tamia Brooks MD [address] [place] [phone] documented as of this encounter Procedures Procedure Name Priority Date/Time Associated Diagnosis Comments FINE NEEDLE ASPIRATION SAVANNAH 04/29/2001 12:00 PM GRANITE WORKER documented in this encounter Results * FINE NEEDLE ASPIRATION (04/29/2001 12:00 PM GRANITE WORKER) Result CASE NUMBER [id number] Comment: ORDERING [...] Pathologist ?Coy Rios M.D. CPT code ? 69787 MISCELLANEOUS SAMPLES / Unknown 04/29/2001 12:00 PM GRANITE WORKER 04/30/2001 7:43 AM GRANITE WORKER Historical Provider LAB - PATHOLOGY/C YTOLOGY ORDERABLES documented in this encounter Visit Diagnoses Not on filedocumented in this encounter Care Teams Die Cast Operator Relationship Specialty Start Date End Date Jhonathan Fisher MD PCP - General 08/09/08 05/05/14 documented as of this encounter
--- OUTSIDE RECORDS SUMMARY | 2024-03-22 20:14 | XMS_ITS | Encounter Summary ---
Author Organization [facility] Address [address] [facility] [place] [address] Care Team Providers Care Instrumentation Technologist Name Role Phone Jhonathan Fisher MD Primary Care Provider Unav ailable Reason for Visit * Reason Onset Date Comments SKIN PROBLEM 01/23/2010 Encounter Details Date Type Department Care Team (Late st Contact Info) Description 01/23/2010 Telephone [facility] Medical [facility] - Internal Medicine [address] [place] [address] [place] [address] Jhonathan Fisher MD SKIN PROBLEM Social History Tobacco Use Types Packs/Day Years [...] Miscellaneous Notes * Telephone Encounter - Elvia Bartholomew LPN - 01/23/2010 10:30 AM PUBLIC OPINION SURVEY TAKER Patient left a voice mail message saying I have some kind of a bite on the side of my face. Ear + side of face is swollen. Wondering if would be OK with me going to one of those Take Careclinics . *I called patient + offered her available 11:30am appointment here with But she responded that she really didn't want to drive that far + will just go to the Take Care clinic. IC OPINION SURVEY TAKER documented in this encounter Plan of Treatment Upcoming Encounters Date Type Department Care Team (Late st Contact Info) Description 06/29/2024 10:00 AM CDT Office Visit [facility] - Internal Medicine [address] [phone] Tamia Brooks MD [address] [place] [phone] documented as of this encounter Visit Diagnoses Not on filedocumented in this encounter Care Teams Instrumentation Technologist Relationship Specialty Start Date End Date Jhonathan Fisher MD PCP - General 08/09/08 05/05/14 documented as of this encounter
--- OUTSIDE RECORDS SUMMARY | 2024-03-22 20:14 | XMS_ITS | Encounter Summary ---
Author Organization [facility] Address [address] [facility] [place] [address] Care Team Providers Care Drill Doctor Name Role Phone Jhonathan Fisher MD Primary Care Provider Unav ailable Reason for Visit * Reason Onset Date Comments MEDICATION REFILL 01/23/2009 Encounter Details Date Type Department Care Team ([facility] Contact Info) Description 01/23/2009 Refill [facility] - Internal Medicine [address] [facility] [address] Jhonathan Fisher MD MEDICATION REFILL Social History [...] Description 06/29/2024 10:00 AM CDT Office Visit [facility] - Internal Medicine [facility] [phone] Tamia Brooks MD [address] [place] [phone] documented as of this encounter Visit Diagnoses Not on filedocumented in this encounter Care Teams Drill Doctor Relationship Specialty Start Date End Date Jhonathan Fisher MD PCP - General 08/09/08 05/05/14 documented as of this encounter
--- OUTSIDE RECORDS SUMMARY | 2024-03-22 20:14 | XMS_ITS | Encounter Summary ---
Author Organization [facility] Address [address] [facility] [place] [address] Care Team Providers Care Marine Steamfitter Name Role Phone Jhonathan Fisher MD Primary Care Provider Unav ailable Reason for Visit * Reason Comments Hypertension Encounter Details Date Type Department Care Team (Late st Contact Info) Description 09/29/2008 1:15 PM CDT Office Visit [facility] Medical [facility] - Internal Medicine [address] [place] [address] [place] [address] Jhonathan Fisher MD Routine General Medical Examination at a Health Care Facility (Primary Dx); Allergic Rhinitis; Hypertension; Hyperlipidemia Social History Tobacco Use Types Packs/Day Years [...] Sign Reading Time Taken Comments Blood Pressure 116/76 09/29/2008 1:22 PM CDT Pulse 72 09/29/2008 1:22 PM CDT Temperature - - Respiratory Rate 18 09/29/2008 1:22 PM CDT Oxygen Saturation - - Inhaled Oxygen Concentration - - Weight 73.9 kg (163 lb) 09/29/2008 1:22 PM CDT Height - - Body Mass Index - - documented in this encounter Progress Notes * Jhonathan Fisher MD - 10/02/2008 9:30 PM CDT .Subjective: Maura Watkins is a 58 y.o. female presents today for the evaluation and treatment of the following problems: The pt is seen for annual preventative exam. Reviewed her current personal issues with all positivefindings except for weight gain and not exercising sufficiently. The patient has many long standingdiagnoses, but lives with these and has no [...] No fatigue or weight change. Objective: BP 116/76 Pulse 72 Resp 18 Wt 73.936 kg (163 lb) General appearance: alert, cooperative, no distress [...] noted Assessment: Encounter Diagnoses Code Name Primary? V70.0 Routine General Medical Examination at a Health Care Facility Yes ??? 477.9AD Allergic Rhinitis ??? 401.9 Hypertension ??? 272.4 Hyperlipidemia Plan: No orders of the defined types were placed in this encounter. NEXT APPT one year documented in this encounter Plan of Treatment Upcoming Encounters Date Type Department Care Team (Late st Contact Info) Description 06/29/2024 10:00 AM CDT Office Visit [facility] Medical [facility] - Internal Medicine [address] [facility] [address] [place] [phone] [place] [address] [place] [phone] documented as of this encounter Visit Diagnoses Diagnosis Routine general medical examination at a health care facility- Primary Allergic rhinitis Allergic rhinitis, cause unspecified Hypertension Unspecified essential hypertension Hyperlipidemia Other and unspecified hyperlipidemia documented in this encounter Care Teams Marine Steamfitter Relationship Specialty Start Date End Date Jhonathan Fisher MD PCP - General 08/09/08 05/05/14 documented as of this encounter
--- OUTSIDE RECORDS SUMMARY | 2024-03-22 20:14 | XMS_ITS | Encounter Summary ---
Author Organization [facility] Address [address] [facility] [place] [address] Care Team Providers Care Vessel Builder Name Role Phone Unavailable Primary Care Provider Unavailabl e Reason for Visit * Reason Onset Date Comments MEDICATION REFILL 07/08/2008 Encounter Details Date Type Department Care Team (Late st Contact Info) Description 07/08/2008 Refill [facility] - Internal Medicine [address] [facility] [place] [address] Wes Sanchez III, MD RETIRED MEDICATION REFILL Social History Tobacco [...] [facility] - Internal Medicine [address] [place] [address] [place] [phone] Tamia Brooks MD [address] [place] [phone] documented as of this encounter Visit Diagnoses Not on filedocumented in this encounter
--- OUTSIDE RECORDS SUMMARY | 2024-03-22 20:14 | XMS_ITS | Encounter Summary ---
Author Organization [facility] Address [address] [facility] [place] [address] Care Team Providers Care Diesel Maintenance Technician Name Role Phone Jhonathan Fisher MD Primary Care Provider Unav ailable Reason for Visit * Reason Onset Date Comments Refill Request 08/09/2008 Encounter Details Date Type Department Care Team (Late st Contact Info) Description 08/09/[address] [facility] - Internal Medicine [address] [facility] [place] [address] Jhonathan Fisher MD Refill Request Social History Tobacco Use Types Packs/Day Years Used Date Smoking Tobacco: Never Assessed Sex and Gender Information Value Date Recorded Sex Assigned at Not on file Gender Identity Female 11/22/2016 11:14 AM CDT Sexual Orientation Not on file documented as of this encounter Miscellaneous Notes * Telephone Encounter - Kristen Dumont RN - 08/09/2008 10:13 AM CDT RX phoned to pharmacy. * Telephone Encounter - Jhonathan Fisher MD - 08/09/2008 9:32 AM CDT Yes Why not 30 it probably costs the same * Telephone Encounter - Kristen Dumont RN - 08/09/2008 9:12 AM CDT Pt is visiting in [place], [place] and is out of her Lorazepam. Salbador requests #3 0.5 mg Lorazepam. Okay to authorize? documented in this encounter Plan of Treatment Upcoming Encounters Date Type Department Care Team (Late st Contact Info) Description 06/29/2024 10:00 AM CDT Office Visit [facility] - Internal Medicine [address] [place] [address] [place] [phone] Tamia Brooks MD [address] [place] [phone] documented as of this encounter Visit Diagnoses Not on filedocumented in this encounter Care Teams Diesel Maintenance Technician Relationship Specialty Start Date End Date Jhonathan Fisher MD PCP - General 08/09/08 05/05/14 documented as of this encounter
--- OUTSIDE RECORDS SUMMARY | 2024-03-22 20:14 | XMS_ITS | Encounter Summary ---
Author Organization [facility] Address [address] [place] [address] Care Team Providers Care Long Goods Drier Name Role Phone Jhonathan Fisher MD Primary Care Provider Unav ailable Reason for Visit * Reason Comments Hypertension Encounter Details Date Type Department Care Team (Late st Contact Info) Description 10/30/2009 9:30 AM CDT Office Visit [facility] Medical [facility] - Internal Medicine [address] [place] [address] [place] [address] Jhonathan Fisher MD Routine General Medical Examination at a Health Care Facility (Primary Dx); Allergic Rhinitis; S/P Hysterectomy; Hypertension Social History Tobacco Use Types Packs/Day Years [...] Reading Time Taken Comments Blood Pressure 124/76 10/30/2009 9:52 AM CDT Pulse 76 10/30/2009 9:52 AM CDT Temperature - - Respiratory Rate 18 10/30/2009 9:52 AM CDT Oxygen Saturation - - Inhaled Oxygen Concentration - - Weight 74.1 kg (163 lb 6.4 oz) 10/30/2009 9:52 A M CDT Height 165.1 cm (5' 5 ) 10/30/2009 9:52 AM CDT Body Mass Index 27.19 10/30/2009 9:52 AM CDT documented in this encounter Progress Notes * Jhonathan Fisher MD - 10/30/2009 5:50 PM CDT Patient Active Problem List Diagnoses Code ??? Allergic Rhinitis 477.9AD ??? S/P HYSTERECTOMY V88.01E ??? Hypertension 401.9 ??? Hyperlipidemia 272.4 ??? Routine General Medical Examination at a [facility] Facility V70.0 No current outpatient prescriptions on file prior to encounter. No family history on file. Past Medical History Diagnosis Date ??? UTI Past Surgical History Procedure Date ??? Hysterectomy History Substance Use Topics ??? Tobacco Use: Quit Quit date: 03/10/1990 ??? Alcohol Use: No .Subjective: The patient is seen for an annual preventative exam. Has gained weifght, not exercising. Discussed 's [place] in September of this year and how this has affected her function. Will initiate exercise rthis fall. The patient has many long standing diagnoses, [...] BP 124/76 Pulse 76 Resp 18 Wt 163 lb 6.4 oz (74.118 kg) General appearance: alert, cooperative, no distress Eyes: [...] Facility Yes ??? 477.9AD Allergic Rhinitis ??? V88.01E S/P Hysterectomy ??? 401.9 Hypertension Plan: Orders Placed This Encounter ??? Prednisone (deltasone) 20 mg tablet Sig: Take by mouth. take 3 tabs for 3 days,2 tabs for 3 days,1 tab for 3 days Dispense: 18 Tab Refill: 2 ??? Lisinopril (prinivil; zestril) 40 mg tablet Sig: Take 1 Tab by mouth daily. Dispense: 90 Tab Refill: 3 ??? Atorvastatin (lipitor) 10 mg tablet Sig: Take 1 Tab by mouth at bedtime. Dispense: 90 Tab Refill: 3 ??? Lorazepam (ativan) 0.5 mg tablet Sig: Take 1 Tab by mouth 3 times daily. Dispense: 90 Tab Refill: 4 ??? Vitamin d, ergocalciferol, (drisdol) 61213 unit capsule Sig: Take 1 Cap by mouth every 7 days. Dispense: 12 Cap Refill: 3 ??? Estrogens, conjugated, (premarin) 0.3 mg tablet Sig: Take 1 Tab by mouth daily. Dispense: 90 Tab Refill: 3 documented in this encounter Plan of Treatment Upcoming Encounters Date Type Department Care Team (Late st Contact Info) Description 06/29/2024 10:00 AM CDT Office Visit [facility] Medical [facility] - Internal Medicine [address] [facility] [address] [place] [address] Tamia [place] MD [address] [place] [phone] documented as of this encounter Visit Diagnoses Diagnosis Routine general medical examination at a [facility] facility- Primary Allergic rhinitis Allergic rhinitis, cause unspecified S/P hysterectomy Acquired absence of both cervix and uterus Hypertension Unspecified essential hypertension documented in this encounter Care Teams Long Goods Drier Relationship Specialty Start Date End Date Jhonathan Fisher MD PCP - General 08/09/08 05/05/14 documented as of this encounter
--- OUTSIDE RECORDS SUMMARY | 2024-03-22 20:14 | XMS_ITS | Encounter Summary ---
Author Organization [facility] Address [address] [facility] [place] [address] Care Team Providers Care Nanotechnology Engineering Technologist Name Role Phone Jhonathan Fisher MD Primary Care Provider Unav ailable Reason for Visit * Reason Onset Date Comments Shingles 03/20/2009 Encounter Details Date Type Department Care Team (Late st Contact Info) Description 03/20/2009 Telephone [facility] Medical Group - Internal Medicine [address] [place] [address] [place] [address] Jhonathan Fisher MD Shinvika Social History Tobacco Use Types Packs/Day Years [...] Telephone Encounter - Sunita Valenzuela MA - 03/20/2009 3:16 PM CST Pt. Notified of rx escribed. ITECTURAL SALES CONSULTANT * Telephone Encounter - Jhonathan Fisher MD - 03/20/2009 3:07 PM ARCHITECTURAL SALES CONSULTANT I think you're saying that she has a recurrence of shingles? If so , valtrex 1gm tid #21 ITECTURAL SALES CONSULTANT * Telephone Encounter - Sunita Valenzuela MA - 03/20/2009 2:39 PM CST Pt. States 4 days ago her left side where her underline area is itching red and raised area very dry 2 inches to 3 inches in diameter denies any pain had shingles before and this feels like it did before? Also having a headache form finding this? ITECTURAL SALES CONSULTANT documented in this encounter Plan of Treatment Upcoming Encounters Date Type Department Care Team (Late st Contact Info) Description 06/29/2024 10:00 AM CDT Office Visit [facility] Medical [facility] - Internal Medicine [address] [place] [phone] Tamia [place] MD [address] [place] [phone] documented as of this encounter Visit Diagnoses Not on filedocumented in this encounter Care Teams Nanotechnology Engineering Technologist Relationship Specialty Start Date End Date Jhonathan Fisher MD PCP - General 08/09/08 05/05/14 documented as of this encounter
--- OUTSIDE RECORDS SUMMARY | 2024-03-22 20:14 | XMS_ITS | Encounter Summary ---
Author Organization [facility] Address [address] [facility] [place] [address] Care Team Providers Care Flexible Shaft Winder Name Role Phone Jhonathan Fisher MD Primary Care Provider Unav ailable Reason for Visit * Reason Onset Date Comments MEDICATION REFILL 10/27/2008 Encounter Details Date Type Department Care Team (Late st Contact Info) Description 10/27/2008 Refill [facility] Medical [facility] - Internal Medicine [address] [facility] [address] Jhonathan Fisher MD MEDICATION REFILL Social History [...] Telephone Encounter - Sunita Valenzuela MA - 10/27/2008 3:29 PM CDT Pt. Lisinopril escribed to [facility]. * Telephone Encounter - Mary Lou Vines - 10/27/2008 3:25 PM CDT Prescription Refills Pending Prescriptions Disp Refills ??? LISINOPRIL 40 MG PO TABS 90 3 Sig: Take 40 mg by mouth daily. last fill 05/13/09 documented in this encounter Plan of Treatment Upcoming Encounters Date Type Department Care Team (Late st Contact Info) Description 06/29/2024 10:00 AM CDT Office Visit [facility] - Internal Medicine [address] [phone] Tamia [place] MD [address] [place] [phone] documented as of this encounter Visit Diagnoses Not on filedocumented in this encounter Care Teams Flexible Shaft Winder Relationship Specialty Start Date End Date Jhonathan Fisher MD PCP - General 08/09/08 05/05/14 documented as of this encounter
--- OUTSIDE RECORDS SUMMARY | 2024-03-22 20:14 | XMS_ITS | Encounter Summary ---
Author Organization [facility] Address [address] [place] [address] Care Team Providers Care Morning News Anchor Name Role Phone Jhonathan Fisher MD Primary Care Provider Unav ailable Reason for Visit * Reason Onset Date Comments MEDICATION REFILL 10/24/2009 Encounter Details Date Type Department Care Team (Late st Contact Info) Description 10/24/2009 Refill [facility] - Internal Medicine [address] [place] [address] [place] [address] Jhonathan Fisher MD MEDICATION REFILL Social History [...] encounter Miscellaneous Notes * Telephone Encounter - Mary Lou Vines - 10/24/2009 11:34 AM CDT Prescription Refills Pending Prescriptions Disp Refills ??? lisinopril (PRINIVIL; ZESTRIL) 40 MG tablet 90 Tab 3 Sig: Take 1 Tab by mouth daily. ??? atorvastatin (LIPITOR) 10 MG tablet 90 Tab 3 Sig: Take 1 Tab by mouth at bedtime. documented in this encounter Plan of Treatment Upcoming Encounters Date Type Department Care Team (Late st Contact Info) Description 06/29/2024 10:00 AM CDT Office Visit [facility] - Internal Medicine [address] [facility] [address] [place] [address] Tamia [place] MD [address] [place] [phone] documented as of this encounter Visit Diagnoses Not on filedocumented in this encounter Care Teams Morning News Anchor Relationship Specialty Start Date End Date Jhonathan Fisher MD PCP - General 08/09/08 05/05/14 documented as of this encounter
--- OUTSIDE RECORDS SUMMARY | 2024-03-22 20:14 | XMS_ITS | Encounter Summary ---
Author Organization [facility] Address [address] [facility] [place] [address] Care Team Providers Care Plant Taxonomy Teacher Name Role Phone Jhonathan Fisher MD Primary Care Provider Unav ailable Reason for Visit * Reason Onset Date Comments URI 01/31/2009 Encounter Details Date Type Department Care Team (Late st Contact Info) Description 01/31/2009 Telephone [facility] Medical Group - Internal Medicine [address] [place] [address] [place] [address] Jhonathan Fisher MD URI Social History Tobacco [...] Telephone Encounter - Sunita Valenzuela MA - 01/31/2009 1:34 PM CST Pt. Notified of rx escribed. TEACHER * Telephone Encounter - Ese Bear - 01/31/2009 11:27 AM CST Pt of sinus pressure and pain, sort throat, Bilat ear pain, cheeks and teeth hurt., slight cough, afebrile x 5 days. Is using mucinex and netti pot TEACHER documented in this encounter Plan of Treatment Upcoming Encounters Date Type Department Care Team (Late st Contact Info) Description 06/29/2024 10:00 AM CDT Office Visit [facility] - Internal Medicine [address] [place] [phone] Tamia [place] MD [address] [place] [phone] documented as of this encounter Visit Diagnoses Not on filedocumented in this encounter Care Teams Plant Taxonomy Teacher Relationship Specialty Start Date End Date Jhonathan Fisher MD PCP - General 08/09/08 05/05/14 documented as of this encounter
--- OUTSIDE RECORDS SUMMARY | 2024-03-22 20:14 | XMS_ITS | Encounter Summary ---
Author Organization [facility] Address [address] [facility] [place] [address] Care Team Providers Care Histology Supervisor Name Role Phone Unavailable Primary Care Provider Unavailabl e Reason for Visit * Reason Onset Date Comments URI 07/08/2008 Encounter Details Date Type Department Care Team (Late st Contact Info) Description 07/08/2008 Telephone [facility] - Internal Medicine [address] [place] [address] [place] [address] Jhonathan Fisher MD URI Social History Tobacco Use Types Packs/Day Years Used Date Smoking Tobacco: Never Assessed Sex and Gender Information Value Date Recorded Sex Assigned at Not on file Gender Identity Female 11/22/2016 11:14 AM CDT Sexual Orientation Not on file documented as of this encounter Miscellaneous Notes * Telephone Encounter - Charisma Fisher - 07/08/2008 2:51 PM CDT LM for patient about med * Telephone Encounter - Ese Bear - 07/08/2008 11:42 AM CDT Pt returns calls==c/o sinus pressure and pain, sore throat, cough keeeps her awake at night, ears hurts x 3 days * Telephone Encounter - Ese Bear - 07/08/2008 11:28 AM CDT Pt calls requesting a call back--no answer--l/m asking her to call me back documented in this encounter Plan of Treatment Upcoming Encounters Date Type Department Care Team (Late st Contact Info) Description 06/29/2024 10:00 AM CDT Office Visit [facility] - Internal Medicine [address] [facility] [address] [place] [address] Tamia [place] MD [address] [place] [address] [address] [place] [phone] documented as of this encounter Visit Diagnoses Not on filedocumented in this encounter
--- OUTSIDE RECORDS SUMMARY | 2024-03-22 20:14 | XMS_ITS ---
Author Organization [facility] Address [address] [facility] [place] [address] Care Team Providers Care Qa Specialist Name Role Phone Yohan Barros DPM Unavailable [phone] Tamia [place] MD Primary Care Provider [phone] Tamia [place] MD Unavailable [phone] QMM & AWV - [facility] Status:Closed (Closed) Start date:06/26/2023 Enrollment date:06/26/2023 Enrollment reason:Identified using claims or encounter data End date:06/26/2023 Close reason:Follow by dynamic observation Continued Care and Services Coordination
--- OUTSIDE RECORDS SUMMARY | 2024-03-22 20:14 | XMS_ITS ---
Author Organization [facility] Address [address] [facility] [place] [address] Care Team Providers Care Applications Systems Engineer Name Role Phone Yohan Barros DPM Unavailable [phone] Tamia [place] MD Primary Care Provider [phone] Tamia [place] MD Unavailable [phone] QMM & AWV - [facility] Status:Closed (Closed) Start date:12/11/2022 Enrollment reason:Identified using claims or encounter data End date:12/16/2022 Close reason:Unable to reach patient Continued Care and Services Coordination
--- OUTSIDE RECORDS SUMMARY | 2024-03-22 20:14 | XMS_ITS | Encounter Summary ---
Author Organization [facility] Address [address] [facility] [place] [address] Care Team Providers Care Tester Equipment Name Role Phone Jhonathan Fisher MD Primary Care Provider Unav ailable Reason for Visit * Reason Comments Shingles ?? Encounter Details Date Type Department Care Team (Late st Contact Info) Description 01/26/2010 1:30 PM PERSONAL CLOTHING LAUNDRY AIDE Office Visit [facility] Medical [facility] - Internal Medicine [address] [facility] [place] [address] Orin Montes MD [address] [address] [address] [place] [address] Contact dermatitis (Primary Dx) Social History Tobacco Use Types [...] Sign Reading Time Taken Comments Blood Pressure 176/106 01/26/2010 1:23 PM PERSONAL CLOTHING LAUNDRY AIDE Pulse 88 01/26/2010 1:23 PM PERSONAL CLOTHING LAUNDRY AIDE Temperature - - Respiratory Rate - - Oxygen Saturation - - Inhaled Oxygen Concentration - - Weight 74.8 kg (165 lb) 01/26/2010 1:23 PM PERSONAL CLOTHING LAUNDRY AIDE Height - - Body Mass Index 27.46 10/30/2009 9:52 AM CDT documented in this encounter Progress Notes * Orin Montes MD - 01/26/2010 1:38 PM CST SUBJECTIVE: Maura Watkins is a 59 y.o. female here today for Chief Complaint Patient presents with ??? Shingles ?? Had tenderness right ear, 1st noticed 4 days ago, thought it was a bite. Went to a Take clinic, gotKeflex. Started getting rash -- a dr who is a family friend thought she was allergic to that and rx'd doxycycline instead. Then started getting more rash, with sharp pains. Is itchy. Is still gettingnew rash. Had been gardening a day or 2 before onset. ROS: no changes in vision, no eye pain, no fever, no chills. Did have shingles other side of face 20 y ago. Past Medical History Diagnosis Date ??? UTI No family history on file. History Tobacco Use ??? Quit ??? Quit date: 03/10/1990 Current outpatient prescriptions Medication Sig Dispense Refill ??? predniSONE (DELTASONE) 20 MG tablet Take [...] Tab 4 ??? vitamin D, ergocalciferol, (DRISDOL) 64431 UNIT capsule Take 1 Cap by mouth every 7 days. 12 Cap 3 ??? estrogens, conjugated, (PREMARIN) 0.3 MG tablet Take 1 Tab by mouth daily. 90 Tab 3 Allergies Allergen Reactions ??? Darvon OBJECTIVE: There is no height on file to calculate BMI. Vesicular rash on indurated base right tmple and chin and ear pinna (excoriated on ear) and a little on left chin. Oral mucosa not involved. ASSESSMENT: Encounter Diagnosis Name Primary? Contact dermatitis Yes Ddx: might be shingles, but give n timeline and crossing of midline think contact dermatitis more likely. PLAN: Orders Placed This Encounter ??? Prednisone (deltasone) 20 mg tablet Sig: Take 1 Tab by mouth. 3 tabs daily for 3 days, then 2 tabs daily for 3 days, then 1 tab daily for 3 days. Take early in the morning. Dispense: 18 Tab Refill: 0 The patient indicates understanding of these issues and agrees with the plan. D/C doxy. ONAL CLOTHING LAUNDRY AIDE documented in this encounter Plan of Treatment Upcoming Encounters Date Type Department Care Team (Late st Contact Info) Description 06/29/2024 10:00 AM CDT Office Visit [facility] - Internal Medicine [address] [facility] [address] [place] [phone] Tamia [place] MD [address] [place] [address] [place] [phone] documented as of this encounter Visit Diagnoses Diagnosis Contact dermatitis- Primary Contact dermatitis and other eczema, due to unspecified cause documented in this encounter Care Teams Tester Equipment Relationship Specialty Start Date End Date Jhonathan [place] MD PCP - General 08/09/08 05/05/14 documented as of this encounter
--- OUTSIDE RECORDS SUMMARY | 2024-03-22 20:14 | XMS_ITS | Encounter Summary ---
Author Organization [facility] Address [address] [facility] [place] [address] Care Team Providers Care Sunglass Clip Attacher Name Role Phone Jhonathan [place] MD Primary Care Provider Unav ailable Encounter Details Date Type Department Care Team (Late Contact Info) Description 12/13/2008 Orders Only [facility] - Internal Medicine [address] [facility] [place] [address] Jhonathan [place] MD Abnormal Mammogram Social History Tobacco Use Types Packs/Day Years [...] as of this encounter Progress Notes * Sunita Valenzuela MA - 12/13/2008 4:20 PM CDT Pt. Needs addt'l spot magnification views of left breast with a possible u/s of left breast to follow if needed. Fax order to [phone]. Pt. Notified and scheduled on 12-20-08 at 11:20. documented in this encounter Plan of Treatment Upcoming Encounters Date Type Department Care Team (Late Contact Info) Description 06/29/2024 10:00 AM CDT Office Visit [facility] - Internal Medicine [address] [facility] [address] [place] [address] Tamia [place] MD [address] [facility] [address] [place] [address] documented as of this encounter Results * MAMMO UNILATERAL DIAG LEFT (12/12/2008) Anatomical Region Laterality Modality Breast Other Narrative 12/12/2008 A scan was deleted from the Results section by Nia Guillermo [[email or web address]] on 01/12/09 at ??1:50 PM (File: [id number]) A scan was deleted from the Results section by Nia Guillermo [JEANNINE] on 01/12/09 at ??1:52 PM (File: [id number]) Jhonathan [place] MD MAMMO ORDERABLES documented in this encounter Visit Diagnoses Diagnosis Abnormal mammogram- Primary Abnormal mammogram, unspecified Abnormal mammogram Abnormal mammogram, unspecified documented in this encounter Care Teams Sunglass Clip Attacher Relationship Specialty Start Date End Date Jhonathan [place] MD PCP - General 08/09/08 05/05/14 documented as of this encounter
--- OUTSIDE RECORDS SUMMARY | 2024-03-22 20:14 | XMS_ITS | Encounter Summary ---
Author Organization [facility] Address [address] [facility] [place] [address] Care Team Providers Care Fibre Composite Technician Name Role Phone Jhonathan [place] MD Primary Care Provider Unav ailable Reason for Visit * Reason Onset Date Comments Poison Betty [place] Exposure 07/21/2009 Encounter Details Date Type Department Care Team (Late st Contact Info) Description 07/21/2009 Telephone [facility] Medical Group - Internal Medicine [address] [facility] [place] [address] Jhonathan [place] MD Poison Betty [place] Exposure Social History Tobacco Use Types [...] Telephone Encounter - Elvia Bartholomew LPN - 07/21/2009 1:08 PM CDT (Patient at the [facility] ), message to her Avelino regarding script + directions for use. * Telephone Encounter - Wes Sanchez III, MD - 07/21/2009 11:19 AM CDT Prescribe Prednisone 20 mg 1- 3 times daily for 3 days, then 1 twice daily for 3 days, then 1 daily#18 * Telephone Encounter - Elvia Bartholomew LPN - 07/21/2009 10:21 AM CDT Starting 2 days ago, outbreak of Poison Betty on arm,(rash with blisters + itch). She now feels it spreading to face + neck. documented in this encounter Plan of Treatment Upcoming Encounters Date Type Department Care Team (Late st Contact Info) Description 06/29/2024 10:00 AM CDT Office Visit [facility] Medical [facility] - Internal Medicine [address] [place] [phone] Tamia [place] MD [address] [place] [phone] documented as of this encounter Visit Diagnoses Not on filedocumented in this encounter Care Teams Fibre Composite Technician Relationship Specialty Start Date End Date Jhonathan Fisher MD PCP - General 08/09/08 05/05/14 documented as of this encounter
--- OUTSIDE RECORDS SUMMARY | 2024-03-22 20:14 | XMS_ITS | Encounter Summary ---
Author Organization [facility] Address [address] [facility] [place] [address] Care Team Providers Care Elementary Education Teacher Name Role Phone Jhonathan Fisher MD Primary Care Provider Unav ailable Reason for Visit * Reason Onset Date Molly Reyes 03/27/2009 Encounter Details Date Type Department Care Team (Late st Contact Info) Description 03/27/2009 Telephone [facility] Medical [facility] - Internal Medicine [address] [place] [address] [place] [address] Jhonathan Fisher MD Shingles Social History Tobacco Use Types Packs/Day Years [...] Telephone Encounter - Lizbeth Vasquez RN - 03/27/2009 1:53 PM MULTIPLE DRUM SANDER HELPER She voices understanding and acceptance of this advice and will call back if any further questions or concerns. Lesions not scabbed yet. Will call back if she needs Rx for lidoderm. IPLE DRUM SANDER HELPER * Telephone Encounter - Jhonathan Fisher MD - 03/27/2009 1:02 PM MULTIPLE DRUM SANDER HELPER Steroid cream not a good choice Otc Capsaicin cream bid, or zostrix cream bid. When lesions are scabbed, then lidoderm patches would be okay. IPLE DRUM SANDER HELPER * Telephone Encounter - Lizbeth Vasquez RN - 03/27/2009 11:44 AM MULTIPLE DRUM SANDER HELPER Completed Rx for Valtrex today has not seen any improvement on shingles rash. No OTC meds for pain,the pain is a dull ache, doesn't feel she needs anything for pain. Had left over Rx for triamcinalone cream which is helping with itching. Ok to continue to use and do you have any other recommendations? IPLE DRUM SANDER HELPER documented in this encounter Plan of Treatment Upcoming Encounters Date Type Department Care Team (Late st Contact Info) Description 06/29/2024 10:00 AM CDT Office Visit [facility] Medical [facility] - Internal Medicine [address] [place] [address] [place] [phone] Tamia [place] MD [address] [place] [phone] documented as of this encounter Visit Diagnoses Not on filedocumented in this encounter Care Teams Elementary Education Teacher Relationship Specialty Start Date End Date Jhonathan Fisher MD PCP - General 08/09/08 05/05/14 documented as of this encounter
--- OUTSIDE RECORDS SUMMARY | 2024-03-22 20:14 | XMS_ITS | Encounter Summary ---
Author Organization [facility] Address [address] [facility] [place] [address] Care Team Providers Care Vehicle Calibration Engineer Name Role Phone Jhonathan Fisher MD Primary Care Provider Unav ailable Encounter Details Date Type Department Care Team ([facility] Contact Info) Description 01/12/2009 Orders Only [facility] - Internal Medicine [address] [facility] [place] [address] Jhonathan Fisher MD Abnormal Mammogram Social History [...] Upcoming Encounters Date Type Department Care Team ([facility] Contact Info) Description 06/29/2024 10:00 AM CDT Office Visit [facility] - Internal Medicine [address] [facility] [address] [place] [phone] Tamia Brooks MD [address] [place] [phone] documented as of this encounter Procedures Procedure Name Priority Date/Time Associated Diagnosis Comments MAMMO UNILATERAL DIAG LEFT Routine 12/12/2008 Abnormal Mammogram documented in this encounter Results * MAMMO UNILATERAL DIAG LEFT (12/12/2008) Anatomical Region Laterality Modality Breast Other Narrative 12/12/2008 A scan was deleted from the Results section by Nia Guillermo [JEANNINE] on 01/12/09 at ??1:50 PM (File: [id number]) A scan was deleted from the Results section by Nia Guillermo [JEANNINE] on 01/12/09 at ??1:52 PM (File: [id number]) Jhonathan Fisher MD MAMMO ORDERABLES documented in this encounter Visit Diagnoses Diagnosis Abnormal mammogram Abnormal mammogram, unspecified documented in this encounter Care Teams Vehicle Calibration Engineer Relationship Specialty Start Date End Date Jhonathan Fisher MD PCP - General 08/09/08 05/05/14 documented as of this encounter
--- OUTSIDE RECORDS SUMMARY | 2024-03-22 20:14 | XMS_ITS | Encounter Summary ---
Author Organization [facility] Address [address] [facility] [place] [address] Care Team Providers Care Contracting Engineer Name Role Phone Jhonathan Fisher MD Primary Care Provider Unav ailable Reason for Visit * Reason Onset Date Comments MEDICATION REFILL 11/01/2008 Encounter Details Date Type Department Care Team (Late st Contact Info) Description 11/01/2008 Refill [facility] Medical [facility] - Internal Medicine [address] [facility] [place] [address] Jhonathan Fisher MD MEDICATION REFILL Social History [...] * Telephone Encounter - Natasha Ragland - 11/01/2008 3:15 PM CDT Refill ok called to [facility] * Telephone Encounter - Mary Lou Vines - 11/01/2008 1:33 PM CDT Prescription Refills Pending Prescriptions Disp Refills ??? LORAZEPAM 0.5 MG PO TABS 100 0 Sig: Take 1 Tab by mouth every 8 hours as needed for Anxiety. documented in this encounter Plan of Treatment Upcoming Encounters Date Type Department Care Team (Late st Contact Info) Description 06/29/2024 10:00 AM CDT Office Visit [facility] - Internal Medicine [address] [place] [phone] Tamia Brooks MD [address] [place] [phone] documented as of this encounter Visit Diagnoses Not on filedocumented in this encounter Care Teams Contracting Engineer Relationship Specialty Start Date End Date Jhonathan Fisher MD PCP - General 08/09/08 05/05/14 documented as of this encounter
--- OUTSIDE RECORDS SUMMARY | 2024-03-22 20:14 | XMS_ITS | Encounter Summary ---
Author Organization [facility] Address [address] [facility] [place] [address] Care Team Providers Care Object Oriented Developer Name Role Phone Jhonathan Fisher MD Primary Care Provider Unav ailable Reason for Visit * Reason Onset Date Molly Reyes 05/10/2009 Encounter Details Date Type Department Care Team (Late st Contact Info) Description 05/10/2009 Telephone [facility] Medical [facility] - Internal Medicine [address] [place] [address] [place] [address] Jhonathan Fisher MD Shingles Social History Tobacco [...] * Telephone Encounter - Natasha Ragland - 05/10/2009 12:40 PM AUTOMATIC BLOCKER Left message on pt VM MATIC BLOCKER * Telephone Encounter - Jhonathan Fisher MD - 05/10/2009 12:30 PM AUTOMATIC BLOCKER Valtrex one gram bid for 7days.#14 MATIC BLOCKER * Telephone Encounter - Mary Lou Vines - 05/10/2009 11:45 AM CST Pt called in shingles are back since she has seen you on 04/17,very red and ripe. Took her Zpak doesn't know what else to do need advice. MATIC BLOCKER documented in this encounter Plan of Treatment Upcoming Encounters Date Type Department Care Team (Late st Contact Info) Description 06/29/2024 10:00 AM CDT Office Visit [facility] - Internal Medicine [address] [facility] [address] [place] [phone] Tamia Brooks MD [address] [place] [phone] documented as of this encounter Visit Diagnoses Not on filedocumented in this encounter Care Teams Object Oriented Developer Relationship Specialty Start Date End Date Jhonathan Fisher MD PCP - General 08/09/08 05/05/14 documented as of this encounter
--- OUTSIDE RECORDS SUMMARY | 2024-03-22 20:14 | XMS_ITS | Encounter Summary ---
Author Organization [facility] Address [address] [place] [address] Care Team Providers Care Dry Cell Sealer Name Role Phone Jhonathan Fisher MD Primary Care Provider Unav ailable Reason for Visit * Reason Onset Date Comments MEDICATION REFILL 10/12/2008 Encounter Details Date Type Department Care Team ([facility] Contact Info) Description 10/12/2008 Refill [facility] - Internal Medicine [address] [facility] [place] [address] Jhonathan Fisher MD MEDICATION REFILL Social History [...] Telephone Encounter - Mary Lou Vines - 10/12/2008 4:06 PM CDT Prescription Refills Pending Prescriptions Disp Refills ??? ATORVASTATIN CALCIUM 10 MG PO TABS 90 3 Sig: Take 10 mg by mouth at bedtime. last fill 07/20/08 documented in this encounter Plan of Treatment Upcoming Encounters Date Type Department Care Team (Late Contact Info) Description 06/29/2024 10:00 AM CDT Office Visit [facility] - Internal Medicine [address] [facility] [address] [place] [address] Tamia Brooks MD [facility] [address] [place] [address] documented as of this encounter Visit Diagnoses Not on filedocumented in this encounter Care Teams Dry Cell Sealer Relationship Specialty Start Date End Date Jhonathan Fisher MD PCP - General 08/09/08 05/05/14 documented as of this encounter
--- OUTSIDE RECORDS SUMMARY | 2024-03-22 20:16 | XMS_ITS | Clinical Summary ---
Author Organization [facility] Address [address] [place] [address]. [place], [place] [address] [place] [address] Care Team Providers Care Central Services Tech Name Role Phone Unavailable Primary Care Provider Unavailabl e Social History Tobacco Use Types Packs/Day Years Used Date Smoking Tobacco: Never Assessed Comments Unknown Sex and Gender Information Value Date Recorded Sex Assigned at Not on file Legal Sex Female 7:16 PM CDT Gender Identity Not on file Sexual Orientation Not on file Plan of Treatment Health Maintenance Due Date Last Done Comments Colorectal Cancer Screening Colonoscopy (10 Years) 1948 Hepatitis C 1966 DTaP, Tdap and Td Vaccines ( 1 - Tdap) 1967 Zoster Vaccines (1 of 2) 1998 Dexa Scan (General) 2013 Pneumococcal Vaccine: 65+ Ye ars (1 of 1 - PCV) 2013 RSV Immunization or 60+ Years (1 - 1-dose 75+ series) 2023 COVID-19 Vaccine ( - 2023-2 5 season) 2023 Influenza Adult (#1) 2023 Meningococcal Vaccine Aged Out No delta haley eligible based on patient's age to complete this topic RSV Immunizations Under 20 Months Aged Out No longer eligible based on patient's age to complete this topic
--- OUTSIDE RECORDS SUMMARY | 2024-03-22 20:16 | XMS_ITS | Encounter Summary ---
Author Organization [facility] Address [address] [place] [address]. [place], [place] [address] [place] [address] Care Team Providers Care Garbage Person Name Role Phone Unavailable Primary Care Provider Unavailabl e Encounter Details Date Type Department Care Team (Late st Contact Info) Description 01/31/2014 Abstract [facility] One Day Services [address] [place] [address] Edgar De Santiago MD [address] [facility] [address] [place] [phone] Social History Tobacco Use Types Packs/Day Years Used Date Smoking Tobacco: Never Assessed Comments Unknown Sex and Gender Information Value Date Recorded Sex Assigned at Not on file Legal Sex Female 7:16 PM CDT Gender Identity Not on file Sexual Orientation Not on file documented as of this encounter Plan of Treatment Not on file documented as of this encounter Visit Diagnoses Diagnosis Senile nuclear sclerosis documented in this encounter
--- OUTSIDE RECORDS SUMMARY | 2024-03-22 20:16 | XMS_ITS | Encounter Summary ---
Author Organization [facility] Address [address] [place] [address]. [place], [place] [address] [place] [address] Care Team Providers Care Drying Frame Operator Name Role Phone Unavailable Primary Care Provider Unavailabl e Encounter Details Date Type Department Care Team (Late st Contact Info) Description 12/20/2013 Abstract [facility] One Day Services [address] [place] [address] Edgar De Santiago MD [address] [facility] [address] [place] [address] Social History Tobacco Use Types Packs/Day [...]
--- OUTSIDE RECORDS SUMMARY | 2024-03-22 20:17 | XMS_ITS | Encounter Summary ---
Author Organization [facility] Address [address] [place] [address] Phone Care Team Providers Care All Around Gear Machine Operator Name Role Phone Tamia Brooks MD Primary Care Provider [phone] Encounter Details Date Type Department Care Team (Late st Contact Info) Description 12/09/[address] [facility] Nephrology and Hypertension [facility] [place] [facility], [address] [place] [address] Misbah Griggs MD [facility], [address] [facility] [place] [address] Essential (primary) hypertension (Primary Dx); Chronic kidney disease, stage 3a Social History Tobacco Use Types Packs/Day Years Used Date Smoking Tobacco: Former Smokeless Tobacco: Never Alcohol Use Standard Drinks/Week Comments Not Currently 0 (1 standard drink = 0.6 oz pur e alcohol) Sex and Gender Information Value Date Recorded Sex Assigned at Not on file Gender Identity Not on file Sexual Orientation Not on file documented as of this encounter Plan of Treatment Not on file documented as of this encounter Procedures Procedure Name Priority Date/Time Associated Diagnosis Comments CBC (INCLUDES PLATELETS / NO DIFFERENTIAL) Routine 12/21/2019 2:52 PM CDT Essential (primary) hypertension Chronic kidney disease, stage 3a TOTAL PROTEIN W/ CREATININE, URINE, RANDOM Routine 12/21/2019 2:52 PM CDT Essential (primary) hypertension Chronic kidney disease, stage 3a VITAMIN D, 25-HYDROXY, SERUM Routine 12/21/2019 2:52 PM CDT Essential (primary) hypertension Chronic kidney disease, stage 3a RENAL FUNCTION PANEL (RFP) Routine 12/21/2019 2:52 PM CDT Essential (primary) hypertension Chronic kidney disease, stage 3a PTH INTACT W/O CALCIUM, SERUM Routine 12/21/2019 2:52 PM CDT Essential (primary) hypertension Chronic kidney disease, stage 3a documented in this encounter Results * CBC (includes Platelets / NO Differential) (12/21/2019 2:52 PM CDT) Leukocytes, Blood 9.3 3.4 - 10.8 x10E3/uL [facility] Erythrocytes (RBC) 4.39 3.77 - 5.28 x10E6/uL [facility] 1 Hemoglobin (HGB) 12.7 11.1 - 15.9 g/dL [facility] 1 Hematocrit (HCT) 38.6 34.0 - 46.6 % [facility] 1 MCV 88 79 - 97 fL [facility] 1 MCH 28.9 26.6 - 33.0 pg [facility] 1 MCHC 32.9 31.5 - 35.7 g/dL [facility] 1 Erythrocyte Distribution Width (RDW) 12.9 11.7 - 15.4 % [facility] 1 Platelets, Blood 285 150 - 450 x10E3/uL [facility] 1 Blood (Blood, Venous) 12/21/2019 2:52 PM CDT 12/20/2019 11:00 PM CDT Narrative [facility] - 12/22/2019 1:35 PM CDT Performed at: ??01 - [facility] [address] ??[id number] Camp Advisor: Tk Irwin PhD, Phone: ??[phone] Misbah Griggs MD LAB BLOOD ORDERABLES [facility] * Total Protein w/ Creatinine, Urine, Random (12/21/2019 2:52 PM CDT) Creatinine, Urine 150.8 Not Estab. mg/dL [facility] 1 Protein, Urine 9.1 Not Estab. mg/dL [facility] 1 Protein/Creatin ine, Urine 60 0 - 200 mg/g creat [facility] 1 12/21/2019 2:52 PM CDT 12/20/2019 11:00 PM CDT Narrative [facility] - 12/22/2019 1:35 PM CDT Performed at: ??01 - [facility] ??[id number] Camp Advisor: Tk Irwin PhD, Phone: ??[phone] Misbah Griggs MD LAB URINE ORDERABLES [facility] * Vitamin D, 25-Hydroxy, Serum (12/21/2019 2:52 PM CDT) 25-Hydroxyvitami n D2+25-Hydroxyvit ricardo D3, Serum/Plasma 43.9 30.0 - 100.0 ng/mL [facility] Comment: Vitamin D deficiency has been defined by the [place] of Medicine and an Endocrine Society practice guideline as a level of serum 25-OH vitamin D less than 20 ng/mL (1,2). The Endocrine Society went on to further define vitamin D insufficiency as a level between 21 and 29 ng/mL (2). 1. IOM ([place] of Medicine). 2010. Dietary reference ?? intakes for calcium and D. [place]: The ?? National Academies Press. 2. Jose MF, Melia NC, Marcelo CAMPUZANO, et al. ?? Evaluation, treatment, and prevention of vitamin D ?? deficiency: an Endocrine Society clinical practice ?? guideline. JCEM. 2010; 96(7):1911-30. 12/21/2019 2:52 PM CDT 12/20/2019 11:00 PM CDT Narrative [facility] - 12/22/2019 1:35 PM CDT Performed at: ?? - [facility] ??[id number] Camp Advisor: Tk Irwin PhD, Phone: ??[phone] Misbah Griggs MD LAB BLOOD ORDERABLES [facility] * PTH Intact w/o Calcium, Serum (12/21/2019 2:52 PM CDT) PTH, Intact, Serum/Plasma 33 15 - 65 pg/mL [facility] 1 Parathyrin (PTH), intact, Serum/Plasma Comment [facility] Comment: Interpretation ? Intact PTH ?Calcium ?(pg/mL) ?(mg/dL) Normal ?15 - 65 ? 8.6 - 10.2 Primary Hyperparathyroidism ? >65 ?>10.2 Secondary Hyperparathyroidism ? >65 ?<10.2 Non-Parathyroid Hypercalcemia ? <65 ?>10.2 Hypoparathyroidism ?<15 ?< 8.6 Non-Parathyroid Hypocalcemia ?15 - 65 ?< 8.6 Genetic analysis report . [facility] 2 Blood (Blood, Venous) 12/21/2019 2:52 PM CDT 12/20/2019 11:00 PM CDT Narrative [facility] - 12/22/2019 1:35 PM CDT Performed at: ??01 - [facility] [place] [address] [facility], [place], [place] ??[id number] Camp Advisor: Tk Irwin PhD, Phone: ??[phone] Performed at: ??02 - [facility] [address] [place], [place] ??[id number] Camp Advisor: Staci Cesar [facility], Phone: ??[phone] Misbah Griggs MD LAB BLOOD ORDERABLES [facility] * (ABNORMAL) Renal Function Panel (RFP) (12/21/2019 2:52 PM CDT) Glucose, Serum/Plasma 158(H) 65 - 99 mg/dL [facility] 1 Urea nitrogen, Serum/Plasma (BUN) 19 8 - 27 mg/dL [facility] 1 Creatinine, Serum/Plasma 1.44(H) 0.57 - 1.00 mg/dL [facility] 1 eGFR, non 37(L) >59 mL/min/1.7 3 [facility] 1 eGFR, 42(L) >59 mL/min/1.7 3 [facility] 1 Urea nitrogen/Creat inine, Serum/Plasma 13 12 - 28 [facility] 1 Sodium, Serum/Plasma 145(H) 134 - 144 mmol/L [facility] 1 Potassium, Serum/Plasma 4.3 3.5 - 5.2 mmol/L [facility] 1 Chloride, Serum/Plasma 103 96 - 106 mmol/L [facility] 1 Carbon dioxide CO2), total, Serum/Plasma 26 20 - 29 mmol/L [facility] 1 Calcium, Serum/Plasma 9.9 8.7 - 10.3 mg/dL [facility] 1 Phosphate, Serum/Plasma 3.3 3.0 - 4.3 mg/dL [facility] 1 Albumin, Serum/Plasma 4.6 3.7 - 4.7 g/dL [facility] 1 Blood (Blood, Venous) 12/21/2019 2:52 PM CDT 12/20/2019 11:00 PM CDT Narrative [facility] - 12/22/2019 1:35 PM CDT Performed at: ??01 - [facility] [address] ??[id number] Camp Advisor: Tk Irwin PhD, Phone: ??[phone] Misbah Griggs MD LAB BLOOD ORDERABLES [facility] 1 documented in this encounter Visit Diagnoses Diagnosis Essential (primary) hypertension- Primary Chronic kidney disease, stage 3a documented in this encounter Care Teams All Around Gear Machine Operator Relationship Specialty Start Date End Date Tamia Brooks MD [address] [address] PCP - General Internal Medicine 11/11/18 documented as of this encounter
--- OUTSIDE RECORDS SUMMARY | 2024-03-22 20:17 | XMS_ITS | Encounter Summary ---
Author Organization [facility] Address [address], [place] [address] Phone Care Team Providers Care Industrial Machine Operator Name Role Phone Tamia Brooks MD Primary Care Provider [phone] Encounter Details Date Type Department Care Team (Late st Contact Info) Description 11/11/2018 1:00 PM CDT Office Visit [facility] Nephrology and Hypertension [address] [place] [address], [address] [place] [address] Derek Baltazar MD [address] [facility], [address] [place] [address] Essential (primary) hypertension (Primary Dx); Chronic kidney disease, stage 3 (moderate); Hyperlipidemia, not otherwise specified Social History Tobacco Use Types Packs/Day [...] Sign Reading Time Taken Comments Blood Pressure 126/64 11/11/2018 1:11 PM CDT Pulse 84 11/11/2018 1:11 PM CDT Temperature 36.4 ??C (97.5 ??F) 11/11/2018 1:11 PM CD T Respiratory Rate - - Oxygen Saturation - - Inhaled Oxygen Concentration - - Weight 87.5 kg (193 lb) 11/11/2018 1:11 PM CDT Height 167.6 cm (5' 6 ) 11/11/2018 1:11 PM CDT Body Mass Index 31.15 11/11/2018 1:11 PM CDT documented in this encounter Progress Notes * Derek Baltazar MD - 11/11/2018 1:00 PM CDT Maura Watkins is a pleasant 68 y.o.female. Lelia is here followup for chronic kidney disease. no bloody or foamy urine. on the low protein. no swelling Social history: she doesn???t smoke or drink. Family history: negative for kidney disease. Allergies: darvon ROS Constitutional: Negative except as above Skin: Negative except as above Pulmonary: Negative except as above Urologic: Negative except as above BP 126/64 Pulse 84 Temp 97.5 ??F (36.4 ??C) Ht 5' 6 (1.676 m) Wt 193 lb (87.5 kg) BMI 31.15 kg/m?? BSA 2.02 m?? WDWN female in NAD Skin No rash Head NCAT Neck No nodes, No TMG Lungs Clear to Auscultation Cor RRR no rub or gallop Abd BS+ nontender and soft. Ext No edema, Psyche normal not depressed or anxious Recent Labs: 10/19/18 Upro 188 Lab Results Component Value Date EGFR 46 (L) 10/19/2018 CREATININE 1.19 (H) 10/19/2018 CREATININEUR 101.8 10/19/2018 GLUCOSE 94 10/19/2018 PTH 33 06/16/2017 HCT 38.5 04/11/2018 BUN 17 10/19/2018 NA 143 10/19/2018 K 4.6 10/19/2018 CL 106 10/19/2018 CO2 20 10/19/2018 ALBUMIN 4.4 10/19/2018 CA 9.7 10/19/2018 Impression: 06/24/17 Renal sono borderline small kidneys Lelia has chronic kidney disease. creatinine has been stable. serology is normal. immunofixation is normal as well Her urinalysis sediment is bland I think this is due to the hypertension and also possibly vascular disease and possibly sleep apnea. To preserve renal function: Blood pressure this is good Cholesterol LDL on rosuvastatin NEPTALI/ARB she is on lisinopril Low protein diet we reviewed this Vitamin D/PTH these are good. using the cpap machine avoid NSAIDs She takes aleve at times she says. For headache or back ache. She should take tylenol or aspirin. keep well hydrated she has had the pneumovax. Se has a POA and her has been selected to be the decision maker if she cannot Plan same meds lose weight RTC 12 months Assessment/Plan Diagnoses and all orders for this visit: Essential (primary) hypertension Chronic kidney disease, stage 3 (moderate) Hyperlipidemia, not otherwise specified Body mass index is 31.15 kg/m??. Follow up plan to address BMI is too high see above. documented in this encounter Plan of Treatment Scheduled Orders Name Type Priority Associated Diagnoses Orde r Schedule CBC (includes Differential/Platelets ) Lab Routine Chronic kidney disease, stage 3 (moderate) 1 Occurrences starting 11/11/2018 until 11/12/2019 PTH Intact w/o Calcium, Serum Lab Routine Chronic kidney disease, stage 3 (moderate) 1 Occurrences starting 11/11/2018 until 11/12/2019 Renal Function Panel (RFP) Lab Routine Chronic kidney disease, stage 3 (moderate) 1 Occurrences starting 11/11/2018 until 11/12/2019 Total Protein w/ Creatinine, Urine, Random Lab Routine Chronic kidney disease, stage 3 (moderate) 1 Occurrences starting 11/11/2018 until 11/12/2019 Vitamin D, 25-Hydroxy, Serum Lab Routine Chronic kidney disease, stage 3 (moderate) 1 Occurrences starting 11/11/2018 until 11/12/2019 documented as of this encounter Visit Diagnoses Diagnosis Essential (primary) hypertension- Primary Chronic kidney disease, stage 3 (moderate) Hyperlipidemia, not otherwise specified documented in this encounter Care Teams Industrial Machine Operator Relationship Specialty Start Date End Date Tamia Brooks MD [address] [address] PCP - General Internal Medicine 11/11/18 documented as of this encounter
--- OUTSIDE RECORDS SUMMARY | 2024-03-22 20:17 | XMS_ITS | Encounter Summary ---
Author Organization [facility] Address [address] [place] [address] Phone Care Team Providers Care Applications Engineer Name Role Phone Tamia Brooks MD Primary Care Provider [phone] Encounter Details Date Type Department Care Team (Late st Contact Info) Description 08/13/2021 Telephone [facility] Nephrology and Hypertension [address] [facility], [address] [place] [id number] Derek Baltazar MD [address] [facility], [address] [place] [address] Social History Tobacco Use Types Packs/Day Years [...] Procedure Name Priority Date/Time Associated Diagnosis Comments TOTAL PROTEIN W/ CREATININE, URINE, RANDOM Routine 01/03/2022 12:28 PM CDT Stage 3b chronic kidney disease (CMS-HCC) RENAL FUNCTION PANEL (RFP) Routine 01/03/2022 12:28 PM CDT Stage 3b chronic kidney disease (CMS-HCC) documented in this encounter Results * Total Protein w/ Creatinine, Urine, Random (01/03/2022 12:28 PM CDT) Creatinine, Urine 196.0 Not Estab. mg/dL [facility] 1 Protein, Urine 17.8 Not Estab. mg/dL [facility] 1 Protein/Creatin ine, Urine 91 0 - 200 mg/g creat [facility] 1 01/03/2022 12:2 8 PM CDT 01/02/2022 11:00 PM CDT Narrative [facility] - 01/04/2022 8:10 AM CDT Performed at: ??01 - [facility] [address] ??[id number] Legal Practice Manager: Tk Irwin PhD, Phone: ??[phone] Derek Baltazar MD LAB URINE ORDERABLES [facility] * (ABNORMAL) Renal Function Panel (RFP) (01/03/2022 12:28 PM CDT) Pathologist [facility] [place] Glucose, Serum/Plasma 105(H) 70 - 99 mg/dL [facility] 1 Urea nitrogen, Serum/Plasma (BUN) 16 8 - 27 mg/dL [facility] 1 Creatinine, Serum/Plasma 1.27(H) 0.57 - 1.00 mg/dL [facility] 1 Estimated Glomerular Filtration Rate (eGFR) 45(L) >59 mL/min/1.7 3 [facility] 1 Urea nitrogen/Creati nine, Serum/Plasma 13 12 - 28 [facility] 1 Sodium, Serum/Plasma 143 134 - 144 mmol/L [facility] 1 Potassium, Serum/Plasma 4.3 3.5 - 5.2 mmol/L [facility] 1 Chloride, Serum/Plasma 105 96 - 106 mmol/L [facility] 1 Carbon dioxide CO2), total, Serum/Plasma 21 20 - 29 mmol/L [facility] 1 Calcium, Serum/Plasma 9.4 8.7 - 10.3 mg/dL [facility] 1 Phosphate, Serum/Plasma 3.5 3.0 - 4.3 mg/dL [facility] 1 Albumin, Serum/Plasma 4.7 3.7 - 4.7 g/dL [facility] 1 Blood 01/03/2022 12:2 8 PM CDT 01/02/2022 11:00 PM CDT Narrative [facility] - 01/04/2022 8:10 AM CDT Performed at: ??01 - [facility] [address] ??[id number] Legal Practice Manager: Tk Irwin PhD, Phone: ??[phone] Derek Baltazar MD LAB BLOOD ORDERABLES [facility] 1 documented in this encounter Visit Diagnoses Diagnosis Stage 3b chronic kidney disease (CMS-HCC)- Primary documented in this encounter Care Teams Applications Engineer Relationship Specialty Start Date End Date Tamia Brooks MD [address] [place] [phone] PCP - General Internal Medicine 11/11/18 documented as of this encounter
--- OUTSIDE RECORDS SUMMARY | 2024-03-22 20:17 | XMS_ITS | Encounter Summary ---
Author Organization [facility] Address [address] [place] [address] Phone Care Team Providers Care Rod Drawer Name Role Phone Tamia Brooks MD Primary Care Provider [phone] Encounter Details Date Type Department Care Team (Late st Contact Info) Description 07/12/2020 1:00 PM CDT Office Visit [facility] Nephrology and Hypertension [address] [place] [address], [address] [place] [address] Derek Baltazar MD [address] [facility], [address] [place] [address] Obstructive sleep apnea (Primary Dx); Essential (primary) hypertension; Stage 3b chronic kidney disease (CMS-HCC); Hyperlipidemia, not otherwise specified; Generalized edema Social History Tobacco Use Types Packs/Day Years [...] Sign Reading Time Taken Comments Blood Pressure 124/78 07/12/2020 1:09 PM CDT Pulse 84 07/12/2020 1:09 PM CDT Temperature 36.3 ??C (97.4 ??F) 07/12/2020 1:09 PM CD T Respiratory Rate - - Oxygen Saturation - - Inhaled Oxygen Concentration - - Weight 89.8 kg (198 lb) 07/12/2020 1:09 PM CDT Height 167.6 cm (5' 6 ) 07/12/2020 1:09 PM CDT Body Mass Index 31.96 07/12/2020 1:09 PM CDT documented in this encounter Progress Notes * Derek Baltazar MD - 07/12/2020 1:00 PM CDT Maura Watkins is a pleasant 70 y.o.female. Lelia is here followup for chronic kidney disease. no urinary problems. on the low protein diet Still on the diuretics no swelling On cpap mask for DAILY Social history: she doesn???t smoke or drink. Family history: negative for kidney disease. Allergies: darvon ROS Constitutional: Negative except as above Skin: Negative except as above Pulmonary: Negative except as above Urologic: Negative except as above BP 124/78 Pulse 84 Temp 97.4 ??F (36.3 ??C) Ht 5' 6 (1.676 m) Wt 198 lb (89.8 kg) BMI 31.96 kg/m?? BSA 2.04 m?? WDWN female in NAD Skin No rash or sq nodules Head NCAT Neck No nodes, No TMG Lungs Clear bilaterally Cor RRR no rub or gallop Abd BS+ nontender and soft. Ext No edema, Psyche normal not depressed or anxious Recent Labs: 10/19/18 Upro 188 Lab Results Component Value Date BUN 18 07/06/2020 CREATININE 1.30 (H) 07/06/2020 EGFRAA 47 (L) 07/06/2020 EGFRAA 43 (L) 01/28/2020 EGFRAA 42 (L) 12/21/2019 EGFR 41 (L) 07/06/2020 EGFR 37 (L) 01/28/2020 EGFR 37 (L) 12/21/2019 PROTCREATUR 127 07/06/2020 PROTCREATUR 60 12/21/2019 PROTCREATUR 188 10/19/2018 NA 144 07/06/2020 K 4.6 07/06/2020 CL 103 07/06/2020 CO2 24 07/06/2020 CA 10.2 07/06/2020 PHOSPHATE 4.2 07/06/2020 ALBUMIN 4.5 07/06/2020 GLUCOSE 115 (H) 07/06/2020 PTH 33 12/21/2019 PTH Comment 12/21/2019 VITD3 38 06/16/2017 VITD 43.9 12/21/2019 LDL 108 09/26/2016 WBC 7.4 07/06/2020 HGB 14.3 07/06/2020 PLT 291 07/06/2020 Imaging 06/24/17 Renal sono borderline small kidneys Impression: Lelia has chronic kidney disease. Creatinine is better. serology is normal. immunofixation is normal as well Her urinalysis sediment is bland I think this is due to the hypertension and also possibly vascular disease and possibly sleep apnea. To preserve renal function: Blood pressure this is good Cholesterol LDL on rosuvastatin NEPTALI/ARB she is on lisinopril Low protein diet we reviewed this She is doing this by taste Vitamin D/PTH these are good. using the cpap machine avoid NSAIDs Okay to take tylenol or aspirin. keep well hydrated co2 is okay She does not have diabetes She is overweight. Try to lose some. Consider chief bank examiner or pcp for help she has had the pneumovax. has a POA and her has been selected to be the decision maker if she cannot Plan same meds lose weight RTC 6 months Diagnoses and all orders for this visit: Obstructive sleep apnea Essential (primary) hypertension Stage 3b chronic kidney disease ([facility]-HCC) Hyperlipidemia, not otherwise specified Generalized edema Body mass index is 31.96 kg/m??. Follow up plan to address BMI is high. . See above Diagnoses and all orders for this visit: Obstructive sleep apnea Essential (primary) hypertension Stage 3b chronic kidney disease ([facility]-HCC) Hyperlipidemia, not otherwise specified Generalized edema Body mass index is 31.96 kg/m??. Follow up plan to address BMI is high. . See above Assessment/Plan Diagnoses and all orders for this visit: Essential (primary) hypertension Chronic kidney disease, stage 3 (moderate) Hyperlipidemia, not otherwise specified Body mass index is 31.96 kg/m??. Follow up plan to address BMI is too high see above. documented in this encounter Miscellaneous Notes * Addendum Note - Derek Baltazar MD - 07/12/2020 1:00 PM CDTAddended by: DEREK BALTAZAR on: 07/12/2020 01:16 PM Modules accepted: Orders documented in this encounter Plan of Treatment Not on file documented as of this encounter Procedures Procedure Name Priority Date/Time Associated Diagnosis Comments TOTAL PROTEIN W/ CREATININE, URINE, RANDOM Routine 01/03/2021 12:41 PM CDT Stage 3b chronic kidney disease ([facility]-HCC) CBC (INCLUDES DIFFERENTIAL/PLATEL ETS) Routine 01/03/2021 12:41 PM CDT Stage 3b chronic kidney disease ([facility]-HCC) RENAL FUNCTION PANEL (RFP) Routine 01/03/2021 12:41 PM CDT Stage 3b chronic kidney disease ([facility]-HCC) PTH INTACT W/O CALCIUM, SERUM Routine 01/03/2021 12:41 PM CDT Stage 3b chronic kidney disease ([facility]-HCC) documented in this encounter Results * Total Protein w/ Creatinine, Urine, Random (01/03/2021 12:41 PM CDT) Creatinine, Urine 152.0 Not Estab. mg/dL [facility] 1 Protein, Urine 9.5 Not Estab. mg/dL [facility] 1 Protein/Creatin ine, Urine 63 0 - 200 mg/g creat [facility] 1 01/03/2021 12:4 1 PM CDT 01/02/2021 11:00 PM CDT Narrative [facility] - 01/04/2021 3:35 PM CDT Performed at: ??01 - [facility] [address] ??[id number] Employee Development Specialist: Tk Irwin PhD, Phone: ??[phone] Derek Baltazar MD LAB URINE ORDERABLES [facility] * (ABNORMAL) Renal Function Panel (RFP) (01/03/2021 12:41 PM CDT) Glucose, Serum/Plasma 154(H) 65 - 99 mg/dL [facility] 1 Urea nitrogen, Serum/Plasma (BUN) 22 8 - 27 mg/dL [facility] 1 Creatinine, Serum/Plasma 1.59(H) 0.57 - 1.00 mg/dL [facility] 1 eGFR, non 32(L) >59 mL/min/1. 73 [facility] 1 eGFR, 37(L) >59 mL/min/1. 73 [facility] 1 Comment: In accordance with recommendations from the NKF-ASN Task force, ??[facility] is in the process of updating its eGFR calculation to the ??2020 CKD-EPI creatinine equation that estimates kidney function ??without a race variable. Urea nitrogen/Creatinine , Serum/Plasma 14 12 - 28 [facility] 1 Sodium, Serum/Plasma 144 134 - 144 mmol/L [facility] 1 Potassium, Serum/Plasma 4.9 3.5 - 5.2 mmol/L [facility] 1 Chloride, Serum/Plasma 102 96 - 106 mmol/L [facility] 1 Carbon dioxide CO2), total, Serum/Plasma 25 20 - 29 mmol/L [facility] 1 Calcium, Serum/Plasma 10.3 8.7 - 10.3 mg/dL [facility] 1 Phosphate, Serum/Plasma 3.7 3.0 - 4.3 mg/dL [facility] 1 Albumin, Serum/Plasma 4.7 3.7 - 4.7 g/dL [facility] 1 Blood 01/03/2021 12:4 1 PM CDT 01/02/2021 11:00 PM CDT Narrative [facility] - 01/04/2021 3:35 PM CDT Performed at: ??01 - [facility] ??[id number] Employee Development Specialist: Tk Irwin PhD, Phone: ??[phone] Derek Baltazar MD LAB BLOOD ORDERABLES [facility] * PTH Intact w/o Calcium, Serum (01/03/2021 12:41 PM CDT) PTH, Intact, Serum/Plasma 17 15 - 65 pg/mL [facility] 1 Parathyrin (PTH), intact, Serum/Plasma Comment [facility] 1 Comment: Interpretation ? Intact PTH ?Calcium ?(pg/mL) ?(mg/dL) Normal ?15 - 65 ? 8.6 - 10.2 Primary Hyperparathyroidism ? >65 ?>10.2 Secondary Hyperparathyroidism ? >65 ?<10.2 Non-Parathyroid Hypercalcemia ? <65 ?>10.2 Hypoparathyroidism ?<15 ?< 8.6 Non-Parathyroid Hypocalcemia ?15 - 65 ?< 8.6 Genetic analysis report . [facility] 2 Blood 01/03/2021 12:4 1 PM CDT 01/02/2021 11:00 PM CDT Narrative [facility] - 01/04/2021 3:35 PM CDT Performed at: ??01 - [facility] [address], [place], [place] ??[id number] Employee Development Specialist: Tk Irwin PhD, Phone: ??[phone] Performed at: ??02 - [facility] [address] [place], [place] ??[id number] Employee Development Specialist: Staci Cesar [facility], Phone: ??[phone] Derek Baltazar MD LAB BLOOD ORDERABLES [facility] 2 * CBC (includes Differential/Platelets) (01/03/2021 12:41 PM CDT) Leukocytes, Blood 7.1 3.4 - 10.8 x10E3/uL [facility] 1 Erythrocytes (RBC) 4.41 3.77 - 5.28 x10E6/uL [facility] 1 Hemoglobin (HGB) 13.2 11.1 - 15.9 g/dL [facility] 1 Hematocrit (HCT) 38.6 34.0 - 46.6 % [facility] 1 MCV 88 79 - 97 fL [facility] 1 MCH 29.9 26.6 - 33.0 pg [facility] 1 MCHC 34.2 31.5 - 35.7 g/dL [facility] 1 Erythrocyte Distribution Width (RDW) 12.8 11.7 - 15.4 % [facility] 1 Platelets, Blood 280 150 - 450 x10E3/uL [facility] 1 Neutrophils/100 leukocytes, Blood 60 Not Estab. % [facility] 1 Lymphocytes/100 leukocytes, Blood 24 Not Estab. % [facility] 1 Monocytes/100 leukocytes, Blood 10 Not Estab. % [facility] 1 Eosinophils/100 leukocytes, Blood 5 Not Estab. % [facility] 1 Basophils/100 leukocytes, Blood 1 Not Estab. % [facility] 1 Neutrophils, Blood 4.2 1.4 - 7.0 x10E3/uL [facility] 1 Lymphocytes, Blood 1.7 0.7 - 3.1 x10E3/uL [facility] 1 Monocytes, Blood 0.7 0.1 - 0.9 x10E3/uL [facility] 1 Eosinophils, Blood 0.4 0.0 - 0.4 x10E3/uL [facility] 1 Basophils, Blood 0.1 0.0 - 0.2 x10E3/uL [facility] 1 Immature granulocytes/100 leukocytes, Blood 0 Not Estab. % [facility] 1 Immature granulocytes, Blood 0.0 0.0 - 0.1 x10E3/uL [facility] 1 Blood 01/03/2021 12:4 1 PM CDT 01/02/2021 11:00 PM CDT Narrative [facility] - 01/04/2021 3:35 PM CDT Performed at: ??01 - [facility] [address] ??[id number] Employee Development Specialist: Tk Irwin PhD, Phone: ??[phone] Derek Baltazar MD LAB BLOOD ORDERABLES [facility] 1 documented in this encounter Visit Diagnoses Diagnosis Obstructive sleep apnea- Primary Essential (primary) hypertension Stage 3b chronic kidney disease (CMS-HCC) Hyperlipidemia, not otherwise specified Generalized edema documented in this encounter Care Teams Rod Drawer Relationship Specialty Start Date End Date Tamia Brooks MD [address] [phone] PCP - General Internal Medicine 11/11/18 documented as of this encounter
--- OUTSIDE RECORDS SUMMARY | 2024-03-22 20:17 | XMS_ITS | Encounter Summary ---
Author Organization [facility] Address [address], [place] [address] Phone Care Team Providers Care Project Account Manager Name Role Phone Tamia Brooks MD Primary Care Provider [phone] Encounter Details Date Type Department Care Team (Late st Contact Info) Description 01/09/2022 11:45 AM CDT Office Visit [facility] Nephrology and Hypertension [address] [place] [address], [address] [place] [address] Derek Baltazar MD [address] [facility], [address] [place] [address] Obstructive sleep apnea (Primary Dx); Essential (primary) hypertension; Stage 3b chronic kidney disease ([facility]-HCC) Social History Tobacco Use Types Packs/Day Years [...] Sign Reading Time Taken Comments Blood Pressure 136/70 01/09/2022 11:38 AM CDT Pulse 72 01/09/2022 11:38 AM CDT Temperature 35.7 ??C (96.2 ??F) 01/09/2022 11:38 AM C DT Respiratory Rate - - Oxygen Saturation - - Inhaled Oxygen Concentration - - Weight 91.6 kg (202 lb) 01/09/2022 11:38 AM CDT Height 167.6 cm (5' 6 ) 01/09/2022 11:38 AM CDT Body Mass Index 32.6 01/09/2022 11:38 AM CDT documented in this encounter Progress Notes * Derek Baltazar MD - 01/09/2022 11:45 AM CDT Maura Watkins is a pleasant 71 y.o.female. Lelia is here followup for chronic kidney disease. Urinating okay on the low protein diet sort of no swelling On cpap mask for DAILY still bp is doing well at other doctors' offices Social history: she doesn???t smoke or drink. Family history: negative for kidney disease. Allergies: darvon ROS Constitutional: Negative except as above Skin: Negative except as above Pulmonary: Negative except as above Urologic: Negative except as above BP 136/70 Pulse 72 Temp 96.2 ??F (35.7 ??C) Ht 5' 6 (1.676 m) Wt 202 lb (91.6 kg) BMI 32.60 kg/m?? BSA 2.07 m?? WDWN female in NAD Skin No rash or sq nodules Head NCAT Neck No nodes, No TMG Lungs Clear bilaterally Cor RRR no rub or gallop Abd BS+ nontender and soft. Ext No edema, Psyche normal not depressed or anxious Recent Labs: 10/19/18 Upro 188 Lab Results Component Value Date BUN 16 01/03/2022 CREATININE 1.27 (H) 01/03/2022 CREATININE 1.30 (H) 07/13/2021 CREATININE 1.59 (H) 01/03/2021 EGFRAA 37 (L) 01/03/2021 EGFRAA 47 (L) 07/06/2020 EGFRAA 43 (L) 01/28/2020 EGFR 32 (L) 01/03/2021 EGFR 41 (L) 07/06/2020 EGFR 37 (L) 01/28/2020 EGFRCR 45 (L) 01/03/2022 EGFRCR 43 (L) 07/13/2021 EGFRCR 40 (L) 05/22/2017 PROTCREATUR 91 01/03/2022 PROTCREATUR 86 07/13/2021 PROTCREATUR 63 01/03/2021 NA 143 01/03/2022 K 4.3 01/03/2022 CL 105 01/03/2022 CO2 21 01/03/2022 CA 9.4 01/03/2022 PHOSPHATE 3.5 01/03/2022 ALBUMIN 4.7 01/03/2022 GLUCOSE 105 (H) 01/03/2022 PTH 31 07/13/2021 PTH Comment 07/13/2021 VITD3 38 06/16/2017 VITD 43.9 12/21/2019 LDL 108 09/26/2016 WBC 6.4 07/13/2021 HGB 13.1 07/13/2021 PLT 254 07/13/2021 Imaging 06/24/17 Renal sono borderline small kidneys Impression: Lelia has chronic kidney disease. Creatinine is better. serology is normal. immunofixation is normal as well Her urinalysis sediment is bland I think this is due to the hypertension and also possibly vascular disease and possibly sleep apnea.. gfr is stable. To preserve renal function: Blood pressure this is a bit high still. Add hydrochlorothiazide and stop the lasix. Cholesterol LDL on rosuvastatin NEPTALI/ARB she is on lisinopril Low protein diet we reviewed this She is doing this by taste Check pth now using the cpap machine avoid NSAIDs Okay to take tylenol or aspirin. keep well hydrated co2 is okay She says now she has diet controlled Pre diabetes, but I am close . Sugar on our test was 154. Work with pcp to kep this under control. She is overweight. Try to lose some. Consider bale sewer or pcp for help Plan Stop lasix Start hydrochlorothiazide 25 lose weight Hydrate Labs now RTC 6 months Diagnoses and all orders for this visit: Obstructive sleep apnea - CBC (includes Differential/Platelets); Future - PTH Intact w/o Calcium, Serum; Future - Renal Function Panel (RFP); Future - Total Protein w/ Creatinine, Urine, Random; Future Essential (primary) hypertension - CBC (includes Differential/Platelets); Future - PTH Intact w/o Calcium, Serum; Future - Renal Function Panel (RFP); Future - Total Protein w/ Creatinine, Urine, Random; Future Stage 3b chronic kidney disease (CMS-HCC) - CBC (includes Differential/Platelets); Future - PTH Intact w/o Calcium, Serum; Future - Renal Function Panel (RFP); Future - Total Protein w/ Creatinine, Urine, Random; Future Other orders - hydroCHLOROthiazide (HYDRODIURIL) 25 MG tablet; Take 1 tablet (25 mg total) by mouth 1 (one) timeeach day Body mass index is 32.6 kg/m??. Follow up plan to address BMI is lose weight. . See above Diagnoses and all orders for this visit: Obstructive sleep apnea Essential (primary) hypertension Stage 3b chronic kidney disease ([facility]-HCC) Body mass index is 32.6 kg/m??. Follow up plan to address BMI is lose weight. . See above Diagnoses and all orders for this visit: Obstructive sleep apnea Essential (primary) hypertension Stage 3b chronic kidney disease ([facility]-HCC) Body mass index is 32.6 kg/m??. Follow up plan to address BMI is lose weight. . See above Diagnoses and all orders for this visit: Obstructive sleep apnea Essential (primary) hypertension Stage 3b chronic kidney disease ([facility]-HCC) Body mass index is 32.6 kg/m??. Follow up plan to address BMI is high. . See above Diagnoses and all orders for this visit: Obstructive sleep apnea Essential (primary) hypertension Stage 3b chronic kidney disease ([facility]) Body mass index is 32.6 kg/m??. Follow up plan to address BMI is high. . See above Assessment/Plan Diagnoses and all orders for this visit: Essential (primary) hypertension Chronic kidney disease, stage 3 (moderate) Hyperlipidemia, not otherwise specified Body mass index is 32.6 kg/m??. Follow up plan to address BMI is too high see above. documented in this encounter Plan of Treatment Scheduled Orders Name Type Priority Associated Diagnoses Orde r Schedule CBC (includes Differential/Platelets ) Lab Routine Obstructive sleep apnea Essential (primary) hypertension Stage 3b chronic kidney disease ([facility]-HCC) 1 Occurrences starting 01/09/2022 until 01/09/2023 PTH Intact w/o Calcium, Serum Lab Routine Obstructive sleep apnea Essential (primary) hypertension Stage 3b chronic kidney disease ([facility]-HCC) 1 Occurrences starting 01/09/2022 until 01/09/2023 Renal Function Panel (RFP) Lab Routine Obstructive sleep apnea Essential (primary) hypertension Stage 3b chronic kidney disease ([facility]-HCC) 1 Occurrences starting 01/09/2022 until 01/09/2023 Total Protein w/ Creatinine, Urine, Random Lab Routine Obstructive sleep apnea Essential (primary) hypertension Stage 3b chronic kidney disease ([facility]-HCC) 1 Occurrences starting 01/09/2022 until 01/09/2023 documented as of this encounter Visit Diagnoses Diagnosis Obstructive sleep apnea- Primary Essential (primary) hypertension Stage 3b chronic kidney disease ([facility]-HCC) documented in this encounter Care Teams Project Account Manager Relationship Specialty Start Date End Date Tamia Brooks MD [address] [phone] PCP - General Internal Medicine 11/11/18 documented as of this encounter
--- OUTSIDE RECORDS SUMMARY | 2024-03-22 20:17 | XMS_ITS | Encounter Summary ---
Author Organization [facility] Address [address] [place] [phone] Phone Care Team Providers Care Polisher Aluminum Name Role Phone Tamia Brooks MD Primary Care Provider [phone] Encounter Details Date Type Department Care Team (Late st Contact Info) Description 02/14/2020 Telephone [facility] Nephrology and Hypertension [address] [facility], [address] [facility] [place] [address] Derek Baltazar MD [address], [address] [place] [address] Social History Tobacco Use Types Packs/Day Years [...] encounter Miscellaneous Notes * Telephone Encounter - Derek Baltazar MD - 02/14/2020 10:17 PM CST ----- Message from Derek Baltazar MD sent at 01/24/2020 9:30 PM SERVICE CENTER TECHNICIAN ----- Ckd 3 documented in this encounter Plan of Treatment Not on file documented as of this encounter Procedures Procedure Name Priority Date/Time Associated Diagnosis Comments TOTAL PROTEIN W/ CREATININE, URINE, RANDOM Routine 07/06/2020 6:58 AM CDT Chronic kidney disease, stage 3b CBC (INCLUDES DIFFERENTIAL/PLATEL ETS) Routine 07/06/2020 6:58 AM CDT Chronic kidney disease, stage 3b RENAL FUNCTION PANEL (RFP) Routine 07/06/2020 6:58 AM CDT Chronic kidney disease, stage 3b documented in this encounter Results * (ABNORMAL) Renal Function Panel (RFP) (07/06/2020 6:58 AM CDT) Glucose, Serum/Plasma 115(H) 65 - 99 mg/dL [facility] 1 Urea nitrogen, Serum/Plasma (BUN) 18 8 - 27 mg/dL [facility] 1 Creatinine, Serum/Plasma 1.30(H) 0.57 - 1.00 mg/dL [facility] 1 eGFR, non 41(L) >59 mL/min/1.7 3 [facility] 1 eGFR, 47(L) >59 mL/min/1.7 3 [facility] 1 Comment: [facility] currently reports eGFR in compliance with the current ??recommendations of the National Kidney Foundation. [facility] will ??update reporting as new guidelines are published from the NKF-ASN ??Task force. Urea nitrogen/Creati nine, Serum/Plasma 14 12 - 28 [facility] 1 Sodium, Serum/Plasma 144 134 - 144 mmol/L [facility] 1 Potassium, Serum/Plasma 4.6 3.5 - 5.2 mmol/L [facility] 1 Chloride, Serum/Plasma 103 96 - 106 mmol/L [facility] 1 Carbon dioxide CO2), total, Serum/Plasma 24 20 - 29 mmol/L [facility] 1 Calcium, Serum/Plasma 10.2 8.7 - 10.3 mg/dL [facility] 1 Phosphate, Serum/Plasma 4.2 3.0 - 4.3 mg/dL [facility] 1 Albumin, Serum/Plasma 4.5 3.7 - 4.7 g/dL [facility] 1 Blood 07/06/2020 6:58 AM CDT 07/05/2020 11:00 PM CDT Narrative [facility] - 07/07/2020 9:10 AM CDT Performed at: ??01 - [facility] ??[id number] Therapeutic Case Manager: Tk Irwin PhD, Phone: ??[phone] Derek Baltazar MD LAB BLOOD ORDERABLES Performing Organization Address [facility] Co de Phone Number [facility] 1 * Total Protein w/ Creatinine, Urine, Random (07/06/2020 6:58 AM CDT) Pathologist [facility] Creatinine, Urine 286.1 Not Estab. mg/dL [facility] 1 Protein, Urine 36.2 Not Estab. mg/dL [facility] 1 Protein/Creatin ine, Urine 127 0 - 200 mg/g creat [facility] 1 07/06/2020 6:58 AM CDT 07/05/2020 11:00 PM CDT Narrative [facility] - 07/07/2020 9:10 AM CDT Performed at: ??01 - [facility] ??[id number] Therapeutic Case Manager: Tk Irwin PhD, Phone: ??[phone] Derek Baltazar MD LAB URINE ORDERABLES Performing Organization Address [facility] Co de Phone Number [facility] * CBC (includes Differential/Platelets) (07/06/2020 6:58 AM CDT) Pathologist [facility] Leukocytes, Blood 7.4 3.4 - 10.8 x10E3/uL [facility] 1 Erythrocytes (RBC) 4.85 3.77 - 5.28 x10E6/uL [facility] 1 Hemoglobin (HGB) 14.3 11.1 - 15.9 g/dL [facility] 1 Hematocrit (HCT) 43.2 34.0 - 46.6 % [facility] 1 MCV 89 79 - 97 fL [facility] 1 MCH 29.5 26.6 - 33.0 pg [facility] 1 MCHC 33.1 31.5 - 35.7 g/dL [facility] 1 Erythrocyte Distribution Width (RDW) 13.3 11.7 - 15.4 % [facility] 1 Platelets, Blood 291 150 - 450 x10E3/uL [facility] 1 Neutrophils/100 leukocytes, Blood 57 Not Estab. % [facility] 1 Lymphocytes/100 leukocytes, Blood 30 Not Estab. % [facility] 1 Monocytes/100 leukocytes, Blood 10 Not Estab. % [facility] 1 Eosinophils/100 leukocytes, Blood 2 Not Estab. % [facility] 1 Basophils/100 leukocytes, Blood 1 Not Estab. % [facility] 1 Neutrophils, Blood 4.2 1.4 - 7.0 x10E3/uL [facility] 1 Lymphocytes, Blood 2.2 0.7 - 3.1 x10E3/uL [facility] 1 Monocytes, Blood 0.7 0.1 - 0.9 x10E3/uL [facility] 1 Eosinophils, Blood 0.2 0.0 - 0.4 x10E3/uL [facility] 1 Basophils, Blood 0.1 0.0 - 0.2 x10E3/uL [facility] 1 Immature granulocytes/100 leukocytes, Blood 0 Not Estab. % [facility] 1 Immature granulocytes, Blood 0.0 0.0 - 0.1 x10E3/uL [facility] 1 Blood 07/06/2020 6:58 AM CDT 07/05/2020 11:00 PM CDT Narrative [facility] - 07/07/2020 9:10 AM CDT Performed at: ??01 - [facility] [address] ??[id number] Therapeutic Case Manager: Tk Irwin PhD, Phone: ??[phone] Derek Baltazar MD LAB BLOOD ORDERABLES Performing Organization Address City/State/[facility] Co de Phone Number [facility] 1 documented in this encounter Visit Diagnoses Diagnosis Chronic kidney disease, stage 3b- Primary documented in this encounter Care Teams Polisher Aluminum Relationship Specialty Start Date End Date Tamia Brooks MD [address] [place] [phone] PCP - General Internal Medicine 11/11/18 documented as of this encounter
--- OUTSIDE RECORDS SUMMARY | 2024-03-22 20:17 | XMS_ITS | Encounter Summary ---
Author Organization [facility] Address [address], [place] [address] Phone Care Team Providers Care Electroplating Worker Name Role Phone Tamia Brooks MD Primary Care Provider [phone] Encounter Details Date Type Department Care Team (Late st Contact Info) Description 12/29/2019 10:45 AM CDT Office Visit [facility] Nephrology and Hypertension [address] [place] [address], [address] [place] [address] Derek Baltazar MD [address] [facility], [address] [place] [address] Obstructive sleep apnea (Primary Dx); Essential (primary) hypertension; Chronic kidney disease, stage 3b; Hyperlipidemia, not otherwise specified Social History Tobacco [...] Reading Time Taken Comments Blood Pressure 136/70 12/29/2019 10:55 AM CDT Pulse 84 12/29/2019 10:55 AM CDT Temperature 35.3 ??C (95.6 ??F) 12/29/2019 10:55 AM C DT Respiratory Rate - - Oxygen Saturation - - Inhaled Oxygen Concentration - - Weight 88.9 kg (196 lb) 12/29/2019 10:55 AM CDT Height 167.6 cm (5' 6 ) 12/29/2019 10:55 AM CDT Body Mass Index 31.64 12/29/2019 10:55 AM CDT documented in this encounter Progress Notes * Derek Baltazar MD - 12/29/2019 10:45 AM CDT Maura Watkins is a pleasant 69 y.o.female. Lelia is here followup for chronic kidney disease. no urinary issues on the low protein. Still on the diuretics no swelling Social history: she doesn???t smoke or drink. Family history: negative for kidney disease. Allergies: darvon ROS Constitutional: Negative except as above Skin: Negative except as above Pulmonary: Negative except as above Urologic: Negative except as above BP 136/70 Pulse 84 Temp 95.6 ??F (35.3 ??C) Ht 5' 6 (1.676 m) Wt 196 lb (88.9 kg) BMI 31.64 kg/m?? BSA 2.03 m?? WDWN female in NAD Skin No rash or sq nodules Head NCAT Neck No nodes, No TMG Lungs Clear Cor RRR no rub or gallop Abd BS+ nontender and soft. Ext No edema, Psyche normal not depressed or anxious Recent Labs: 10/19/18 Upro 188 Lab Results Component Value Date BUN 19 12/21/2019 CREATININE 1.44 (H) 12/21/2019 EGFRAA 42 (L) 12/21/2019 EGFRAA 53 (L) 10/19/2018 EGFRAA 55 (L) 04/11/2018 EGFR 37 (L) 12/21/2019 EGFR 46 (L) 10/19/2018 EGFR 48 (L) 04/11/2018 PROTCREATUR 60 12/21/2019 PROTCREATUR 188 10/19/2018 PROTCREATUR 320 (H) 04/11/2018 NA 145 (H) 12/21/2019 K 4.3 12/21/2019 CL 103 12/21/2019 CO2 26 12/21/2019 CA 9.9 12/21/2019 PHOSPHATE 3.3 12/21/2019 ALBUMIN 4.6 12/21/2019 GLUCOSE 158 (H) 12/21/2019 PTH 33 12/21/2019 PTH Comment 12/21/2019 VITD3 38 06/16/2017 VITD 43.9 12/21/2019 LDL 108 09/26/2016 WBC 9.3 12/21/2019 HGB 12.7 12/21/2019 PLT 285 12/21/2019 Imaging 06/24/17 Renal sono borderline small kidneys Impression: Lelia has chronic kidney disease. creatinine is a bit worse. Consider dehydration since sodium is high. She also had covid which can affect the kidneys if severe but she didn't have a severe case serology is normal. immunofixation is normal as [...] is overweight. Try to lose some. Consider push button switch assembler or pcp she has had the pneumovax. has a POA and her has been selected to be the decision maker if she cannot Plan same meds lose weight Hydrate rfp in 2 weeks RTC 6 months Diagnoses and all orders for this visit: Obstructive sleep apnea Essential (primary) hypertension Chronic kidney disease, stage 3b Hyperlipidemia, not otherwise specified Body mass index is 31.64 kg/m??. Follow up plan to address BMI is high. . See above Assessment/Plan Diagnoses and all orders for this visit: Essential (primary) hypertension Chronic kidney disease, stage 3 (moderate) Hyperlipidemia, not otherwise specified Body mass index is 31.64 kg/m??. Follow up plan to address BMI is too high see above. documented in this encounter Plan of Treatment Not on file documented as of this encounter Procedures Procedure Name Priority Date/Time Associated Diagnosis Comments EOSINOPHIL, URINE Routine 01/28/2020 9:5 5 AM ENGAGEMENT SPECIALIST Chronic kidney disease, stage 3b MICROSCOPIC EXAMINATION Routine 01/28/2020 9:55 AM ENGAGEMENT SPECIALIST RENAL FUNCTION PANEL (RFP) Routine 01/28/2020 9:55 AM ENGAGEMENT SPECIALIST Chronic kidney disease, stage 3b SODIUM W/ CREATININE, URINE, RANDOM Routine 01/28/2020 9:55 AM ENGAGEMENT SPECIALIST Chronic kidney disease, stage 3b URINALYSIS W/ REFLEX TO MICROSCOPIC Routine 01/28/2020 9:55 AM ENGAGEMENT SPECIALIST Chronic kidney disease, stage 3b documented in this encounter Results * Microsopic Examination (01/28/2020 9:55 AM ENGAGEMENT SPECIALIST) Leukocytes, Urine sediment None seen 0 - 5 /hpf [facility] 1 Erythrocytes, Urine sediment None seen 0 - 2 /hpf [facility] 1 Epithelial cells, Urine sediment 0-10 0 - 10 /hpf [facility] 1 Mucus, Urine sediment Present Not Estab. [facility] 1 Bacteria, Urine sediment Few None seen/Few [facility] 1 01/28/2020 9:55 AM ENGAGEMENT SPECIALIST 01/27/2020 11:00 PM ENGAGEMENT SPECIALIST Narrative [facility] - 01/29/2020 10:08 AM ENGAGEMENT SPECIALIST Performed at: ??01 - [facility] [address] ??[id number] Director Loan: Tk Irwin PhD, Phone: ??[phone] Derek Baltazar MD LAB BLOOD ORDERABLES [facility] * (ABNORMAL) Renal Function Panel (RFP) (01/28/2020 9:55 AM ENGAGEMENT SPECIALIST) Glucose, Serum/Plasma 110(H) 65 - 99 mg/dL [facility] 1 Urea nitrogen, Serum/Plasma (BUN) 16 8 - 27 mg/dL [facility] 1 Creatinine, Serum/Plasma 1.43(H) 0.57 - 1.00 mg/dL [facility] 1 eGFR, non 37(L) >59 mL/min/1.7 3 [facility] 1 eGFR, 43(L) >59 mL/min/1.7 3 [facility] 1 Urea nitrogen/Creat inine, Serum/Plasma 11(L) 12 - 28 [facility] 1 Sodium, Serum/Plasma 145(H) 134 - 144 mmol/L [facility] 1 Potassium, Serum/Plasma 5.2 3.5 - 5.2 mmol/L [facility] 1 Chloride, Serum/Plasma 106 96 - 106 mmol/L [facility] 1 Carbon dioxide CO2), total, Serum/Plasma 25 20 - 29 mmol/L [facility] 1 Calcium, Serum/Plasma 9.9 8.7 - 10.3 mg/dL [facility] 1 Phosphate, Serum/Plasma 3.1 3.0 - 4.3 mg/dL [facility] 1 Albumin, Serum/Plasma 4.7 3.7 - 4.7 g/dL [facility] 1 Blood 01/28/2020 9:55 AM ENGAGEMENT SPECIALIST 01/27/2020 11:00 PM ENGAGEMENT SPECIALIST Narrative [facility] - 01/29/2020 10:08 AM ENGAGEMENT SPECIALIST Performed at: ??01 - [facility] [address] ??[id number] Director Loan: Tk Irwin PhD, Phone: ??[phone] Derek Baltazar MD LAB BLOOD ORDERABLES [facility] * Urinalysis w/ Reflex to Microscopic (01/28/2020 9:55 AM ENGAGEMENT SPECIALIST) Specific gravity of Urine 1.007 1.005 - 1.030 [facility] 1 pH of Urine 6.5 5.0 - 7.5 [facility] 1 Color of Urine Yellow Yellow [facility] 1 Appearance of Urine Clear Clear [facility] 1 Leukocyte esterase, Urine Negative Negative [facility] 1 Protein, Urine Negative Negative/Tra ce [facility] 1 Glucose, Urine Negative Negative [facility] 1 Ketones, Urine Negative Negative [facility] 1 Hemoglobin, Urine Negative Negative [facility] 1 Bilirubin, total, Urine Negative Negative [facility] 1 Urobilinogen, Urine 0.2 0.2 - 1.0 mg/dL [facility] 1 Nitrite, Urine Negative Negative [facility] 1 Microscopic Examination Comment [facility] 1 Comment:Microscopic follows if indicated. Microscopic observation, Urine sediment See below: [facility] 1 Comment:Microscopic was zay cated and was performed. Urine 01/28/2020 9:55 AM ENGAGEMENT SPECIALIST 01/27/2020 11:00 PM ENGAGEMENT SPECIALIST Narrative [facility] - 01/29/2020 10:08 AM ENGAGEMENT SPECIALIST Performed at: ??01 - [facility] ??[id number] Director Loan: Tk Irwin PhD, Phone: ??[phone] Derek Baltazar MD LAB URINE ORDERABLES Performing Organization Address [facility] de Phone Number [facility] * Sodium w/ Creatinine, Urine, Random (01/28/2020 9:55 AM ENGAGEMENT SPECIALIST) Creatinine, Urine 27.5 Not Estab. mg/dL [facility] 1 Sodium, 24 hour Urine 46 Not Estab. mmol/L [facility] 1 Urine 01/28/2020 9:55 AM ENGAGEMENT SPECIALIST 01/27/2020 11:00 PM ENGAGEMENT SPECIALIST Narrative [facility] - 01/29/2020 10:08 AM ENGAGEMENT SPECIALIST Performed at: ??01 - [facility] ??[id number] Director Loan: Tk Irwin PhD, Phone: ??[phone] Derek Baltazar MD LAB URINE ORDERABLES Performing Organization Address [facility] Phone Number [facility] * Eosinophil, Urine (01/28/2020 9:55 AM ENGAGEMENT SPECIALIST) Eosinophils/1 00 leukocytes, Urine sediment No Eosinophils Seen % [facility] 1 Comment:<5% few or none seen Urine 01/28/2020 9:55 AM ENGAGEMENT SPECIALIST 01/27/2020 11:00 PM ENGAGEMENT SPECIALIST Narrative [facility] - 01/29/2020 10:08 AM ENGAGEMENT SPECIALIST Performed at: ??01 - [facility] [address] ??[id number] Director Loan: Tk Irwin PhD, Phone: ??[phone] Derek Baltazar MD LAB BLOOD ORDERABLES Performing Organization Address [facility] de Phone Number [facility] 1 documented in this encounter Visit Diagnoses Diagnosis Obstructive sleep apnea- Primary Essential (primary) hypertension Chronic kidney disease, stage 3b Hyperlipidemia, not otherwise specified documented in this encounter Care Teams Electroplating Worker Relationship Specialty Start Date End Date Tamia Brooks MD [facility] [phone] PCP - General Internal Medicine 11/11/18 documented as of this encounter
--- OUTSIDE RECORDS SUMMARY | 2024-03-22 20:17 | XMS_ITS | Encounter Summary ---
Author Organization [facility] Address [address], [place] [address] Phone Care Team Providers Care Operating Room Manager Name Role Phone Tamia Brooks MD Primary Care Provider [phone] Encounter Details Date Type Department Care Team (Late st Contact Info) Description 07/11/2021 9:00 AM CDT Office Visit [facility] Nephrology and Hypertension [address] [place] [address], [address] [place] [address] Derek Baltazar MD [address] [facility], [address] [place] [address] Obstructive sleep apnea (Primary Dx); Essential (primary) hypertension; Stage 3b chronic kidney disease (CMS-HCC); Mixed hyperlipidemia Social History Tobacco Use Types Packs/Day Years [...] Sign Reading Time Taken Comments Blood Pressure 138/80 07/11/2021 8:57 AM CDT Pulse 72 07/11/2021 8:57 AM CDT Temperature 35.4 ??C (95.8 ??F) 07/11/2021 8:57 AM CD T Respiratory Rate - - Oxygen Saturation - - Inhaled Oxygen Concentration - - Weight 93 kg (205 lb) 07/11/2021 8:57 AM CDT Height 167.6 cm (5' 6 ) 07/11/2021 8:57 AM CDT Body Mass Index 33.09 07/11/2021 8:57 AM CDT documented in this encounter Progress Notes * Derek Baltazar MD - 07/11/2021 9:00 AM CDT Maura Watkins is a pleasant 71 y.o.female. Lelia is here followup for chronic kidney disease. no urinary problems. on the low protein diet sort of no swelling On cpap mask for DAILY bp is up and down at other doc's offices Social history: she doesn???t smoke or drink. Family history: negative for kidney disease. Allergies: darvon ROS Constitutional: Negative except as above Skin: Negative except as above Pulmonary: Negative except as above Urologic: Negative except as above BP 138/80 Pulse 72 Temp 95.8 ??F (35.4 ??C) Ht 5' 6 (1.676 m) Wt 205 lb (93 kg) BMI 33.09 kg/m?? BSA 2.08 m?? WDWN female in NAD Skin No rash or sq nodules Head NCAT Neck No nodes, No TMG Lungs Clear Cor RRR no rub or gallop Abd BS+ nontender and soft. Ext No edema, Psyche normal not depressed or anxious Recent Labs: 10/19/18 Upro 188 Lab Results Component Value Date BUN 22 01/03/2021 CREATININE 1.59 (H) 01/03/2021 EGFRAA 37 (L) 01/03/2021 EGFRAA 47 (L) 07/06/2020 EGFRAA 43 (L) 01/28/2020 EGFR 32 (L) 01/03/2021 EGFR 41 (L) 07/06/2020 EGFR 37 (L) 01/28/2020 PROTCREATUR 63 01/03/2021 PROTCREATUR 127 07/06/2020 PROTCREATUR 60 12/21/2019 NA 144 01/03/2021 K 4.9 01/03/2021 CL 102 01/03/2021 CO2 25 01/03/2021 CA 10.3 01/03/2021 PHOSPHATE 3.7 01/03/2021 ALBUMIN 4.7 01/03/2021 GLUCOSE 154 (H) 01/03/2021 PTH 17 01/03/2021 PTH Comment 01/03/2021 VITD3 38 06/16/2017 VITD 43.9 12/21/2019 LDL 108 09/26/2016 WBC 7.1 01/03/2021 HGB 13.2 01/03/2021 PLT 280 01/03/2021 Imaging 06/24/17 Renal sono borderline small kidneys Impression: Lelia has chronic kidney disease. Creatinine is better. serology is normal. immunofixation is normal as well Her urinalysis sediment is bland I think this is due to the hypertension and also possibly vascular disease and possibly sleep apnea.. gfr is up and down. She didn't get labs done since December. Will get some now and before the next visit. To preserve renal function: Blood pressure this is a bit high. Inc lis to 40 Cholesterol LDL on rosuvastatin NEPTALI/ARB she is [...] is overweight. Try to lose some. Consider medical liaison or pcp for help Plan Cinthya lisinopril to 40 lose weight Hydrate Labs now RTC 6 months Diagnoses and all orders for this visit: Obstructive sleep apnea Essential (primary) hypertension Stage 3b chronic kidney disease (CMS-HCC) Mixed hyperlipidemia Other orders - lisinopril (PRINIVIL) 40 MG tablet; Take 1 tablet (40 mg total) by mouth 1 (one) time each day Body mass index is 33.09 kg/m??. Follow up plan to address BMI is lose weight. . See above Diagnoses and all orders for this visit: Obstructive sleep apnea Essential (primary) hypertension Stage 3b chronic kidney disease (CMS-HCC) Mixed hyperlipidemia Body mass index is 33.09 kg/m??. Follow up plan to address BMI is lose weight. . See above Diagnoses and all orders for this visit: Obstructive sleep apnea Essential (primary) hypertension Stage 3b chronic kidney disease (CMS-HCC) Mixed hyperlipidemia Body mass index is 33.09 kg/m??. Follow up plan to address BMI is high. . See above Diagnoses and all orders for this visit: Obstructive sleep apnea Essential (primary) hypertension Stage 3b chronic kidney disease (CMS-HCC) Mixed hyperlipidemia Body mass index is 33.09 kg/m??. Follow up plan to address BMI is high. . See above Assessment/Plan Diagnoses and all orders for this visit: Essential (primary) hypertension Chronic kidney disease, stage 3 (moderate) Hyperlipidemia, not otherwise specified Body mass index is 33.09 kg/m??. Follow up plan to address BMI is too high see above. documented in this encounter Plan of Treatment Not on file documented as of this encounter Visit Diagnoses Diagnosis Obstructive sleep apnea- Primary Essential (primary) hypertension Stage 3b chronic kidney disease (CMS-HCC) Mixed hyperlipidemia documented in this encounter Care Teams Operating Room Manager Relationship Specialty Start Date End Date Tamia Brooks MD [facility] [phone] PCP - General Internal Medicine 11/11/18 documented as of this encounter
--- OUTSIDE RECORDS SUMMARY | 2024-03-22 20:17 | XMS_ITS | Encounter Summary ---
Author Organization [facility] Address [address] [place] [phone] Phone Care Team Providers Care Building Mechanic Name Role Phone Tamia Brooks MD Primary Care Provider [phone] Encounter Details Date Type Department Care Team (Late st Contact Info) Description 06/27/2021 Orders Only [facility] Nephrology and Hypertension [address] [facility], [address] [place] [id number] Derek Baltazar MD [address] [facility], [address] [place] [address] Stage 3b chronic kidney disease (CMS-HCC) (Primary Dx) Social History Tobacco Use Types [...] TOTAL PROTEIN W/ CREATININE, URINE, RANDOM Routine 07/13/2021 9:30 AM CDT Stage 3b chronic kidney disease (CMS-HCC) CBC (INCLUDES DIFFERENTIAL/PLATEL ETS) Routine 07/13/2021 9:30 AM CDT Stage 3b chronic kidney disease (CMS-HCC) RENAL FUNCTION PANEL (RFP) Routine 07/13/2021 9:30 AM CDT Stage 3b chronic kidney disease (CMS-HCC) PTH INTACT W/O CALCIUM, SERUM Routine 07/13/2021 9:30 AM CDT Stage 3b chronic kidney disease ([facility]-HCC) documented in this encounter Results * CBC (includes Differential/Platelets) (07/13/2021 9:30 AM CDT) Leukocytes, Blood 6.4 3.4 - 10.8 x10E3/uL [facility] 1 Erythrocytes (RBC) 4.50 3.77 - 5.28 x10E6/uL [facility] 1 Hemoglobin (HGB) 13.1 11.1 - 15.9 g/dL [facility] 1 Hematocrit (HCT) 39.7 34.0 - 46.6 % [facility] 1 MCV 88 79 - 97 fL [facility] 1 MCH 29.1 26.6 - 33.0 pg [facility] 1 MCHC 33.0 31.5 - 35.7 g/dL [facility] 1 Erythrocyte Distribution Width (RDW) 12.7 11.7 - 15.4 % [facility] 1 Platelets, Blood 254 150 - 450 x10E3/uL [facility] 1 Neutrophils/100 leukocytes, Blood 59 Not Estab. % [facility] 1 Lymphocytes/100 leukocytes, Blood 26 Not Estab. % [facility] 1 Monocytes/100 leukocytes, Blood 10 Not Estab. % [facility] 1 Eosinophils/100 leukocytes, Blood 3 Not Estab. % [facility] 1 Basophils/100 leukocytes, Blood 2 Not Estab. % [facility] 1 Neutrophils, Blood 3.8 1.4 - 7.0 x10E3/uL [facility] 1 Lymphocytes, Blood 1.7 0.7 - 3.1 x10E3/uL [facility] 1 Monocytes, Blood 0.7 0.1 - 0.9 x10E3/uL [facility] 1 Eosinophils, Blood 0.2 0.0 - 0.4 x10E3/uL [facility] 1 Basophils, Blood 0.1 0.0 - 0.2 x10E3/uL [facility] 1 Immature granulocytes/100 leukocytes, Blood 0 Not Estab. % [facility] 1 Immature granulocytes, Blood 0.0 0.0 - 0.1 x10E3/uL [facility] 1 Blood 07/13/2021 9:30 AM CDT 07/12/2021 11:00 PM CDT Narrative [facility] - 07/16/2021 6:35 AM CDT Performed at: ??01 - [facility] [place] [id number] [facility], [place], [place] ??[id number] Injection Molding Process Technician: Tk Irwin PhD, Phone: ??[phone] Derek Baltazar MD LAB BLOOD ORDERABLES [facility] * PTH Intact w/o Calcium, Serum (07/13/2021 9:30 AM CDT) PTH, Intact, Serum/Plasma 31 15 - 65 pg/mL [facility] 1 Parathyrin (PTH), intact, Serum/Plasma Comment [facility] 1 Comment: Interpretation ? Intact PTH ?Calcium ?(pg/mL) ?(mg/dL) Normal ?15 - 65 ? 8.6 - 10.2 Primary Hyperparathyroidism ? >65 ?>10.2 Secondary Hyperparathyroidism ? >65 ?<10.2 Non-Parathyroid Hypercalcemia ? <65 ?>10.2 Hypoparathyroidism ?<15 ?< 8.6 Non-Parathyroid Hypocalcemia ?15 - 65 ?< 8.6 Genetic analysis report . [facility] 2 Blood 07/13/2021 9:30 AM CDT 07/12/2021 11:00 PM CDT Narrative [facility] - 07/16/2021 6:35 AM CDT Performed at: ??01 - [facility] ??[id number] Injection Molding Process Technician: Tk Irwin PhD, Phone: ??[phone] Performed at: ??02 - [facility] [address] [facility], [place], [place] ??[id number] Injection Molding Process Technician: Staci Cesar [facility], Phone: ??[phone] Derek Baltazar MD LAB BLOOD ORDERABLES Performing Organization Address [facility]/ZIP Co de Phone Number [facility] * Total Protein w/ Creatinine, Urine, Random (07/13/2021 9:30 AM CDT) Creatinine, Urine 137.2 Not Estab. mg/dL [facility] 1 Protein, Urine 11.8 Not Estab. mg/dL [facility] 1 Protein/Creatin ine, Urine 86 0 - 200 mg/g creat [facility] 1 07/13/2021 9:30 AM CDT 07/12/2021 11:00 PM CDT Narrative [facility] - 07/16/2021 6:35 AM CDT Performed at: ??01 - [facility] ??[id number] Injection Molding Process Technician: Tk Irwin PhD, Phone: ??[phone] Derek Baltazar MD LAB URINE ORDERABLES Performing Organization Address [facility]/ZIP Co de Phone Number [facility] * (ABNORMAL) Renal Function Panel (RFP) (07/13/2021 9:30 AM CDT) Glucose, Serum/Plasma 137(H) 65 - 99 mg/dL [facility] 1 Urea nitrogen, Serum/Plasma (BUN) 20 8 - 27 mg/dL [facility] 1 Creatinine, Serum/Plasma 1.30(H) 0.57 - 1.00 mg/dL [facility] 1 Estimated Glomerular Filtration Rate (eGFR) 43(L) >59 mL/min/1.7 3 [facility] 1 Urea nitrogen/Creati nine, Serum/Plasma 15 12 - 28 [facility] 1 Sodium, Serum/Plasma 145(H) 134 - 144 mmol/L [facility] 1 Potassium, Serum/Plasma 5.1 3.5 - 5.2 mmol/L [facility] 1 Chloride, Serum/Plasma 107(H) 96 - 106 mmol/L [facility] 1 Carbon dioxide CO2), total, Serum/Plasma 24 20 - 29 mmol/L [facility] 1 Calcium, Serum/Plasma 9.7 8.7 - 10.3 mg/dL [facility] 1 Phosphate, Serum/Plasma 2.5(L) 3.0 - 4.3 mg/dL [facility] 1 Albumin, Serum/Plasma 4.5 3.7 - 4.7 g/dL [facility] 1 Blood 07/13/2021 9:30 AM CDT 07/12/2021 11:00 PM CDT Narrative [facility] - 07/16/2021 6:35 AM CDT Performed at: ??01 - [facility] [address] ??[id number] Injection Molding Process Technician: Tk Irwin PhD, Phone: ??[phone] Derek Baltazar MD LAB BLOOD ORDERABLES [facility] 1 documented in this encounter Visit Diagnoses Diagnosis Stage 3b chronic kidney disease (CMS-HCC)- Primary documented in this encounter Care Teams Building Mechanic Relationship Specialty Start Date End Date Tamia Brooks MD [address] [id number] PCP - General Internal Medicine 11/11/18 documented as of this encounter
--- OUTSIDE RECORDS SUMMARY | 2024-03-22 20:17 | XMS_ITS | Encounter Summary ---
Author Organization [facility]ions Address [address] [place] [phone] Phone Care Team Providers Care Manager Rn Name Role Phone Unavailable Primary Care Provider Unavailabl e Encounter Details Date Type Department Care Team (Late st Contact Info) Description 06/16/2017 Legacy Encounter - [place] [address] Derek Baltazar MD [address] [facility], [address] [address] Social History Tobacco Use Types Packs/Day Years Used Date Smoking Tobacco: Never Assessed Sex and Gender Information Value Date Recorded Sex Assigned at Not on file Gender Identity Not on file Sexual Orientation Not on file documented as of this encounter Plan of Treatment Not on file documented as of this encounter Procedures Procedure Name Priority Date/Time Associated Diagnosis Comments PROTEIN,TOTAL,RANDOM URINE Routine 06/16/2017 9:27 AM CDT ENHANCED PDF REPORT [id number] Routine 06/16/2017 9:27 AM CDT VITAMIN B12/FOLATE, SERUM PANEL Routine 06/16/2017 9:27 AM CDT CBC (H/H, RBC, INDICES, WBC, PLT) Routine 06/16/2017 9:27 AM CDT VITAMIN D, 25-OH, TOTAL,IA Routine 06/16/2017 9:27 AM CDT KAPPA/LAMBDA LIGHT CHAINS FREE WITH RATIO, SERUM Routine 06/16/2017 9:27 AM CDT URINALYSIS, COMPLETE Routine 06/16/2017 9:27 AM CDT RENAL FUNCTION PANEL (RFP) Routine 06/16/2017 9:27 AM CDT IMMUNOFIXATION, URINE Routine 06/16/2017 9:27 AM CDT COMPLEMENT C3 + C4 Routine 06/16/2017 9: 27 AM CDT COMPLEMENT C3 + C4 Routine 06/16/2017 9: 27 AM CDT IRON TIBC AND FERRITIN PANEL Routine 06/16/2017 9:27 AM CDT IRON TIBC AND FERRITIN PANEL Routine 06/16/2017 9:27 AM CDT COMPLEMENT TOTAL (CH50) Routine 06/16/2017 9:27 AM CDT IMMUNOFIXATION, SERUM Routine 06/16/2017 9:27 AM CDT ANTINUCLEAR ANTIBODIES (JESUS), IFA W/ REFL TITER AND PATTERN Routine 06/16/2017 9:27 AM CDT PTH INTACT W/O CALCIUM, SERUM Routine 06/16/2017 9:27 AM CDT documented in this encounter Results * Enhanced Pdf Report [id number] (06/16/2017 9:27 AM CDT) ENHANCED REPORT EXTERNAL LAB 06/16/2017 9:27 AM CDT 06/16/2017 9:28 AM CDT Derek Baltazar MD LAB BLOOD ORDERABLES EXTERNAL LAB * (ABNORMAL) Protein,Total,Random Urine (06/16/2017 9:27 AM CDT) Creatinine, Urine 50 20 - 320 mg/dL EXTER[facility] Protein/Creatini ne, Urine NOTE 21 - 161 mg/g creat EXTERNAL LAB Comment: THE PROTEIN VALUE IS LESS THAN 4 MG/DL THEREFORE WE ARE UNABLE TO CALCULATE EXCRETION AND/OR CREATININE RATIO. ?? Protein, Urine <4(L) 5 - 24 mg/dL EXTERNAL LAB Comment:Verified by repeat a nalysis. 06/16/2017 9:27 AM CDT 06/16/2017 9:28 AM CDT Derek Baltazar MD LAB URINE ORDERABLES Performing Organization Address City/[facility]/ZIP Co de Phone Number EXTERNAL LAB * Vitamin d, 25-Oh, Total,Ia (06/16/2017 9:27 AM CDT) [facility] Calcidiol, Serum/Plasma 38 30 - 100 ng/mL EXTERNAL LAB Comment: Vitamin D Status ? 25-OH Vitamin D: Deficiency: ?<20 ng/mL Insufficiency: ? 20 - 29 ng/mL Optimal: ? > or = 30 ng/mL For 25-OH Vitamin D testing on patients on D2-supplementation and patients for whom quantitation of D2 and D3 fractions is required, the QuestAssureD(TM) 25-OH VIT D, (D2,D3), LC/MS/MS is recommended: order code 83630 (patients >2yrs). For more information on this test, go to: http://education.[employer].coJuvo/faq/KRN792 (This link is being provided for informational/educational purposes only.) 06/16/2017 9:27 AM CDT 06/16/2017 9:28 AM CDT Derek Baltazar MD LAB BLOOD ORDERABLES Performing Organization Address [facility]/ZIP Co de Phone Number EXTERNAL LAB * PTH Intact w/o Calcium (06/16/2017 9:27 AM CDT) PTH, Intact, Serum/Plasma 33 14 - 64 pg/mL EXTERNAL LAB Comment: Interpretive Guide ?Intact PTH ? Calcium ? ------- Normal Parathyroid ?Normal ? Normal Hypoparathyroidism ?Low or Low Normal ?Low Hyperparathyroidism ?? Primary ?Normal or High ? High ?? Secondary ?High ? Normal or Low ?? Tertiary ? High ? High Non-Parathyroid ?? Hypercalcemia ?Low or Low Normal ?High 06/16/2017 9:27 AM CDT 06/16/2017 9:28 AM CDT Derek Baltazar MD LAB BLOOD ORDERABLES EXTERNAL LAB * Vitamin B12/Folate, Serum Panel (06/16/2017 9:27 AM CDT) Pathologist [facility] Cobalamin (Vitamin B12), Serum/Plasma 325 200 - 1,100 pg/mL EXTERNAL LAB Comment: Please Note: Although the reference range for vitamin B12 is 200-1100 pg/mL, it has been reported that between 5 and 10% of patients with values between 200 and 400 pg/mL may experience neuropsychiatric and hematologic abnormalities due to occult B12 deficiency; less than 1% of patients with values above 400 pg/mL will have symptoms. Folate, Serum/Plasma 16.2 ng/mL EXTERNAL LA B Comment: ? Reference Range ? Low: ? <3.4 ? Borderline: ?3.4-5.4 ? Normal: ?>5.4 06/16/2017 9:27 AM CDT 06/16/2017 9:28 AM CDT Derek Baltazar MD LAB BLOOD ORDERABLES Performing Organization Address [facility] de Phone Number EXTERNAL LAB * Krupp/Lambda Light Chains Free with Ratio, Serum (06/16/2017 9:27 AM CDT) Krupp light chains, free, Serum 18.6 3.3 - 19.4 mg/L EXTERNAL LAB Lambda light chains, free, Serum/Plasma 15.5 5.7 - 26.3 mg/L EXTERNAL LAB Krupp light chains, free/Lambda light chains, free, Serum 1.20 0.26 - 1.65 EXTERNAL LAB Comment: Free kappa/lambda ratio in serum of normal individuals is 0.26-1.65. Excess production of free kappa or lambda light chains alters the ratio. Ratios outside the normal range are attributed to the presence of monoclonal free light chains. Monoclonal free light chains are found in the serum of patients with multiple myeloma, Waldenstrom's macroglobulinemia, mu-heavy chain disease, primary amyloidosis, light chain deposition disease, monoclonal gammopathy of undetermined significance, and lymphoproliferative disorders. Measurement of free light chain concentration in serum is useful for diagnosis, prognosis,monitoring disease activity and following response to therapy of these disorders. 06/16/2017 9:27 AM CDT 06/16/2017 9:28 AM CDT Derek Baltazar MD LAB BLOOD ORDERABLES Performing Organization Address [facility] de Phone Number EXTERNAL LAB * (ABNORMAL) Complement Total (CH50) (06/16/2017 9:27 AM CDT) Complement total hemolytic CH50, Serum/Plasma >60(H) 31 - 60 U/mL EXTERNAL LAB 06/16/2017 9:27 AM CDT 06/16/2017 9:28 AM CDT Narrative Authorizing Provider Result Angie Baltazar MD LAB BLOOD ORDERABLES Performing Organization Address [facility] de Phone Number EXTERNAL LAB * Immunofixation, Serum (06/16/2017 9:27 AM CDT) Immunofixation for Serum/Plasma EXTERNAL LAB Comment:Normal pattern. No m onoclonal proteins detected. 06/16/2017 9:27 AM CDT 06/16/2017 9:28 AM CDT Derek Baltazar MD LAB URINE ORDERABLES Performing Organization Address [facility] Phone Number EXTERNAL LAB * JESUS Screen Ifa W/ Refl Titer And Pattern (06/16/2017 9:27 AM CDT) JESUS, Serum NEGATIVE NEGATIVE EXTERNAL LAB Comment: JESUS IFA is a first line screen for detecting the presence of up to approximately 150 autoantibodies in various autoimmune diseases. A negative JESUS IFA result suggests JESUS-associated autoimmune diseases are not present at this time. Visit Physician FAQs for interpretation of all antibodies in the [place], prevalence, and association with diseases at http://education.Ame[employer]/ faq/OYG679 06/16/2017 9:27 AM CDT 06/16/2017 9:28 AM CDT Derek Baltazar MD LAB BLOOD ORDERABLES Performing Organization Address [facility] de Phone Number EXTERNAL LAB * Immunofixation, Urine (06/16/2017 9:27 AM CDT) Immunofixation for Urine EXTERNAL LAB Comment:Normal pattern. No m onoclonal proteins detected. 06/16/2017 9:27 AM CDT 06/16/2017 9:28 AM CDT Derek Baltazar MD LAB BLOOD ORDERABLES EXTERNAL LAB * Urinalysis, Complete (06/16/2017 9:27 AM CDT) Color of Urine YELLOW YELLOW EXTERNAL LAB Appearance of Urine CLEAR CLEAR EXTERNAL LAB Specific gravity of Urine 1.009 1.001 - 1.035 EXTERNAL LAB pH of Urine 6.5 5.0 - 8.0 EXTERNAL LAB Glucose, Urine NEGATIVE NEGATIVE EXTERNAL LAB Reducing substances, Urine CANCELED NEGATIVE % EXTERNAL LAB Comment:Result canceled by t he ancillary. Bilirubin, total, Urine NEGATIVE NEGATIVE EXTERNAL LAB Ketones, Urine NEGATIVE NEGATIVE EXTERNAL LAB Hemoglobin, Urine NEGATIVE NEGATIVE EXTERNAL LAB Protein, Urine NEGATIVE NEGATIVE EXTERNAL LAB Nitrite, Urine NEGATIVE NEGATIVE EXTERNAL LAB Leukocyte esterase, Urine NEGATIVE NEGATIVE EXTERNAL LAB Leukocytes, Urine sediment NONE SEEN < OR = 5 /HPF EXTERNAL LAB Erythrocytes, Urine sediment NONE SEEN < OR = 2 /HPF EXTERNAL LAB Epithelial cells, squamous, Urine sediment NONE SEEN < OR = 5 /HPF EXTERNAL LAB Transitional cells, Urine sediment CANCELED < OR = 5 /HPF EXTERNAL LAB Comment:Result canceled by t he ancillary. Epithelial cells, renal, Urine sediment CANCELED < OR = 3 /HPF EXTERNAL LAB Comment:Result canceled by t he ancillary. Bacteria, Urine sediment NONE SEEN NONE SEEN /HPF EXTERNAL LAB Calcium oxalate crystals, Urine sediment CANCELED NONE OR FEW /HPF EXTERNAL LAB Comment:Result canceled by t he ancillary. Triple phosphate crystals, Urine sediment CANCELED NONE OR FEW /HPF EXTERNAL LAB Comment:Result canceled by t he ancillary. Urate crystals, Urine sediment CANCELED NONE OR FEW /HPF EXTERNAL LAB Comment:Result canceled by t he ancillary. Amorphous sediment, Urine sediment CANCELED NONE OR FEW /HPF EXTERNAL LAB Comment:Result canceled by t he ancillary. Crystals, Urine sediment CANCELED NONE SEEN /HPF EXTERNAL LAB Comment:Result canceled by t he ancillary. Hyaline casts, Urine sediment NONE SEEN NONE SEEN /LPF EXTERNAL LAB Granular casts, Urine sediment CANCELED NONE SEEN /LPF EXTERNAL LAB Comment:Result canceled by t he ancillary. Casts, Urine sediment CANCELED NONE SEEN /LPF EXTERNAL LAB Comment:Result canceled by t he ancillary. Yeast, Urine sediment CANCELED NONE SEEN /HPF EXTERNAL LAB Comment:Result canceled by t he ancillary. Service comment CANCELED EXTERNAL LAB Comment:Result canceled by t he ancillary. Service comment CANCELED EXTERNAL LAB Comment:Result canceled by t he ancillary. 06/16/2017 9:27 AM CDT 06/16/2017 9:28 AM CDT Derek Baltazar MD LAB URINE ORDERABLES Performing Organization Address City/[facility] Co de Phone Number EXTERNAL LAB * CBC (H/H, RBC, Indices, WBC, Plt) (06/16/2017 9:27 AM CDT) Leukocytes, Blood 6.0 3.8 - 10.8 Thousand/u L EXTERNAL LAB Erythrocytes (RBC) 4.35 3.80 - 5.10 Million/uL EXTERNAL LAB Hemoglobin (HGB) 12.6 11.7 - 15.5 g/dL EXTERNAL LAB Hematocrit (HCT) 37.7 35.0 - 45.0 % EXTERNAL LAB MCV 86.7 80.0 - 100.0 fL EXTERNAL LAB MCH 29.0 27.0 - 33.0 pg EXTERNAL LAB MCHC 33.4 32.0 - 36.0 g/dL EXTERNAL LAB Erythrocyte Distribution Width (RDW) 13.1 11.0 - 15.0 % EXTERNAL LAB Platelets, Blood 296 140 - 400 Thousand/u L EXTERNAL LAB Platelet mean volume, Blood 11.3 7.5 - 12.5 fL EXTERNAL LAB 06/16/2017 9:27 AM CDT 06/16/2017 9:28 AM CDT Derek Baltazar MD LAB BLOOD ORDERABLES Performing Organization Address City/[facility] Co de Phone Number EXTERNAL LAB * (ABNORMAL) Renal Function Panel (06/16/2017 9:27 AM CDT) Glucose, Serum/Plasma 94 65 - 99 mg/dL EXTERNAL LAB Comment:Fasting reference in terval Urea nitrogen, Serum/Plasma (BUN) 21 7 - 25 mg/dL EXTERNAL LAB Creatinine, Serum/Plasma 1.24(H) 0.50 - 0.99 mg/dL EXTERNAL LAB Comment: For patients >49 years of age, the reference limit for Creatinine is approximately 13% higher for people identified as -[place]. eGFR, non 44(L) > OR = 60 mL/min/1. 73m2 EXTERNAL LAB eGFR, 51(L) > OR = 60 mL/min/1. 73m2 EXTERNAL LAB Urea nitrogen/Creatinin e, Serum/Plasma 17 6 - 22 (calc) EXTERNAL LAB Sodium, Serum/Plasma 141 135 - 146 mmol/L EXTERNAL LAB Potassium, Serum/Plasma 4.3 3.5 - 5.3 mmol/L EXTERNAL LAB Chloride, Serum/Plasma 104 98 - 110 mmol/L EXTERNAL LAB Carbon dioxide CO2), total, Serum/Plasma 28 20 - 31 mmol/L EXTERNAL LAB Calcium, Serum/Plasma 10.0 8.6 - 10.4 mg/dL EXTERNAL LAB Phosphate, Serum/Plasma 3.7 2.1 - 4.3 mg/dL EXTERNAL LAB Albumin, Serum/Plasma 4.6 3.6 - 5.1 g/dL EXTERNAL LAB 06/16/2017 9:27 AM CDT 06/16/2017 9:28 AM CDT Derek Baltazar MD LAB BLOOD ORDERABLES Performing Organization Address [facility] de Phone Number EXTERNAL LAB * Complement Comp C3 + C4 (06/16/2017 9:27 AM CDT) Complement C4, Serum/Plasma 19 15 - 57 mg/dL EXTERNAL LAB 06/16/2017 9:27 AM CDT 06/16/2017 9:28 AM CDT Derek Baltazar MD LAB BLOOD ORDERABLES Performing Organization Address [facility] Co de Phone Number EXTERNAL LAB * Complement Comp C3 + C4 (06/16/2017 9:27 AM CDT) Complement C3, Serum/Plasma 151 83 - 193 mg/dL EXTERNAL LAB 06/16/2017 9:27 AM CDT 06/16/2017 9:28 AM CDT Derek Baltazar MD LAB BLOOD ORDERABLES Performing Organization Address [facility] Co de Phone Number EXTERNAL LAB * Iron TIBC And Ferritin Panel (06/16/2017 9:27 AM CDT) Ferritin, Serum/Plasma 35 20 - 288 ng/mL EXTERNAL LAB 06/16/2017 9:27 AM CDT 06/16/2017 9:28 AM CDT Derek Baltazar MD LAB BLOOD ORDERABLES Performing Organization Address City/[facility]/ZIP Co de Phone Number EXTERNAL LAB * Iron TIBC And Ferritin Panel (06/16/2017 9:27 AM CDT) Iron, Serum/Plasma 92 45 - 160 mcg/dL EXTERNAL LAB Iron binding capacity, Serum/Plasma 393 250 - 450 mcg/dL (calc) EXTERNAL LAB Iron saturation, Serum/Plasma 23 11 - 50 % (calc) EXTERNAL LAB 06/16/2017 9:27 AM CDT 06/16/2017 9:28 AM CDT Derek Baltazar MD LAB BLOOD ORDERABLES EXTERNAL LAB documented in this encounter Visit Diagnoses Not on filedocumented in this encounter
--- OUTSIDE RECORDS SUMMARY | 2024-03-22 20:17 | XMS_ITS | Encounter Summary ---
Author Organization [facility] Address [address], [place] [address] Phone Care Team Providers Care Railroad Track Mechanic Name Role Phone Tamia Brooks MD Primary Care Provider [phone] Encounter Details Date Type Department Care Team (Late st Contact Info) Description 01/10/2021 11:00 AM CDT Office Visit [facility] Nephrology and Hypertension [address] [place] [address], [address] [place] [address] Derek Baltazar MD [address] [facility], [address] [place] [address] Obstructive sleep apnea (Primary Dx); Essential (primary) hypertension; Stage 3b chronic kidney disease (CMS-HCC); Mixed hyperlipidemia; Generalized edema Social History Tobacco Use Types [...] Sign Reading Time Taken Comments Blood Pressure 127/72 01/10/2021 11:12 AM CDT Pulse 72 01/10/2021 11:12 AM CDT Temperature 35.9 ??C (96.6 ??F) 01/10/2021 11:12 AM C DT Respiratory Rate - - Oxygen Saturation - - Inhaled Oxygen Concentration - - Weight 90.7 kg (200 lb) 01/10/2021 11:12 AM CDT Height 167.6 cm (5' 6 ) 01/10/2021 11:12 AM CDT Body Mass Index 32.28 01/10/2021 11:12 AM CDT documented in this encounter Progress Notes * Derek Baltazar MD - 01/10/2021 11:00 AM CDT Maura Watkins is a pleasant 70 y.o.female. Lelia is here followup for chronic kidney disease. no urinary problems. on the low protein diet no swelling On cpap mask for DAILY Social history: she doesn???t smoke or drink. Family history: negative for kidney disease. Allergies: darvon ROS Constitutional: Negative except as above Skin: Negative except as above Pulmonary: Negative except as above Urologic: Negative except as above BP 127/72 Pulse 72 Temp 96.6 ??F (35.9 ??C) Ht 5' 6 (1.676 m) Wt 200 lb (90.7 kg) BMI 32.28 kg/m?? BSA 2.06 m?? WDWN female in NAD Skin No rash or sq nodules Head NCAT Neck No nodes, No TMG Lungs Clear to ausc Cor RRR no rub or gallop Abd [...] possibly sleep apnea.. gfr is up and down but this time lower than ever. I will check another in a month. Drink plenty of fluid. To preserve renal function: Blood pressure this is good Cholesterol LDL on rosuvastatin NEPTALI/ARB she is on lisinopril Low protein diet we reviewed this She is doing this by taste Vitamin D/PTH these are good. using the cpap machine avoid NSAIDs Okay to take tylenol or aspirin. keep well hydrated co2 is okay She says now she has diet controlled diabetes. Sugar on our test was 154. Work with pcp to kep thisunder control. She is overweight. Try to lose some. Consider lithographic photographer or pcp for help she has had the pneumovax. has a POA and her has been selected to be the decision maker if she cannot Plan same meds lose weight Hydrate Labs in a month RTC 6 months Diagnoses and all orders for this visit: Obstructive sleep apnea Essential (primary) hypertension Stage 3b chronic kidney disease ([facility]-HCC) Mixed hyperlipidemia Generalized edema Body mass index is 32.28 kg/m??. Follow up plan to address BMI is lose weight. . See above Diagnoses and all orders for this visit: Obstructive sleep apnea Essential (primary) hypertension Stage 3b chronic kidney disease ([facility]-HCC) Mixed hyperlipidemia Generalized edema Body mass index is 32.28 kg/m??. Follow up plan to address BMI is high. . See above Diagnoses and all orders for this visit: Obstructive sleep apnea Essential (primary) hypertension Stage 3b chronic kidney disease ([facility]-H[facility]) Mixed hyperlipidemia Generalized edema Body mass index is 32.28 kg/m??. Follow up plan to address BMI is high. . See above Assessment/Plan Diagnoses and all orders for this visit: Essential (primary) hypertension Chronic kidney disease, stage 3 (moderate) Hyperlipidemia, not otherwise specified Body mass index is 32.28 kg/m??. Follow up plan to address BMI is too high see above. documented in this encounter Plan of Treatment Not on file documented as of this encounter Visit Diagnoses Diagnosis Obstructive sleep apnea- Primary Essential (primary) hypertension Stage 3b chronic kidney disease (CMS-HCC) Mixed hyperlipidemia Generalized edema documented in this encounter Care Teams Railroad Track Mechanic Relationship Specialty Start Date End Date Tamia Brooks MD [address] [address] PCP - General Internal Medicine 11/11/18 documented as of this encounter
--- OUTSIDE RECORDS SUMMARY | 2024-03-22 20:17 | XMS_ITS | Clinical Summary ---
Author Organization [facility] Address [address] [place] [phone] Phone Care Team Providers Care Motor Runner Name Role Phone Tamia Brooks MD Primary Care Provider [phone] Allergies Active Allergy Reactions Criticality Noted Date Comments Propoxyphene Dizziness,Nausea And Vomiting 09/07 Medications Medication Sig Dispensed Refills Start Date End Date Status Multiple Vitamin (MULTIVITAMIN) capsule 1 daily 0 06/13/2017 Active gabapentin (NEURONTIN) 300 MG capsule 1 tid 0 05/11/2018 Active calcium carbonate (TUMS) 500 MG chewable tablet 1 bid 0 07/17/2017 Active cholecalciferol (VITAMIN D-3) 1000 units tablet 2 daily 0 06/13/2017 Active clotrimazole-betameth asone (LOTRISONE) cream apply bid to aff area 0 06/13/2017 Active Calcium Citrate 200 MG tablet 600mg daily 0 07/17/2017 Active cetirizine (ZyrTEC) 10 MG tablet 1 daily prn 0 06/13/2017 Active cetirizine (ZyrTEC ALLERGY) 10 MG tablet 1 daily 0 07/17/2017 Act cleo Glucosamine-Chondroit -Vit C-Mn (GLUCOSAMINE-CHONDROI TIN) capsule 1 daily 0 06/13/2017 Active amLODIPine (NORVASC) 5 MG tablet 1 daily 0 07/17/2017 Active rosuvastatin (CRESTOR) 10 MG tablet 10/05/2019 Active OneTouch Delica Lancets 33G misc 1 each daily 11/13/2018 Active glucose blood test strip 1 strip daily 01/06/2019 Active metoclopramide (REGLAN) 5 MG tablet 06/06/2020 Acti ve lansoprazole (PREVACID) [address] capsule 06/26/2021 Active lisinopril (PRINIVIL) 40 MG tablet Take 1 tablet (40 mg total) by mouth 1 (one) time each day 90 tablet 3 07/11/2021 Active hydroCHLOROthiazide (HYDRODIURIL) 25 MG tablet Take 1 tablet (25 mg total) by mouth 1 (one) time each day 90 tablet 3 01/09/2022 Active Active Problems Problem Noted Date Diagnosed Date Type 2 diabetes mellitus 10/23/2018 Stage 3b chronic kidney disease 04/29/2018 Hyperlipidemia 06/16/2017 Essential (primary) hypertension 06/16/2017 Obstructive sleep apnea 06/16/2017 Gastro-esophageal reflux disease without esophag itis 06/16/2017 Generalized edema 06/16/2017 Chronic diastolic congestive heart failure 05/27 Overview (07/07/2020): Echo 05/2017: ef 60%, grade 1 diastolic dysfunction, and elevated filling pressures Immunizations Name Administration Dates Next Due Fluzone High-Dose 12/30/2019 Influenza (IM) Preservative Free 12/03/2017 Influenza Split High Dose Pr eservative Free IM 12/30/2019,12/31/2018,12/29/2015,01/06 Influenza TIV (IM) 12/05/2021,01/13/2013, 012 Influenza, Unspecified 01/18/2021,2019,12/31/2018,12/28,01/06/2015,11/22/2013,01/13/2013 ,01/10/2012,01/06/2011,12/08/2009,11/08 Moderna Sars-cov-2 Vaccination 01/18/2021,2020,05/01/2020 Pneumococcal Conjugate 13-Valent 07/10/2015 Pneumococcal Polysaccharide 09/16/2016, 0 Family History Medical History Relation Comments Kidney disease Neg Hx Social History Tobacco Use Types Packs/Day Years Used Date Smoking Tobacco: Former Smokeless Tobacco: Never Alcohol Use Standard Drinks/Week Comments Not Currently 0 (1 standard drink = 0.6 oz pur e alcohol) Sex and Gender Information Value Date Recorded Sex Assigned at Not on file Gender Identity Not on file Sexual Orientation Not on file Last Filed [...] Mass Index 32.6 01/09/2022 11:38 AM CDT Plan of Treatment Health Maintenance Due Date Last Done Comments Diabetic Foot Exam 1960 Ophthalmology Exam 1960 COVID-19 Vaccine (2022-04 4 season) 2023 01/18/2021, 05/29/2020, 05/01/2020 Influenza Vaccine (#1) 2023 , 01/18/2021, 12/30/2019, Additional history exists Pneumococcal PPSV23/PCV13 65 + Years / High and Highest Risk Completed 09/16/2016, 07/10/2015, 01/08/2010 Care Teams Motor Runner Relationship Specialty Start Date End Date Tamia Brooks MD [address] [address] PCP - General Internal Medicine 11/11/18
--- OUTSIDE RECORDS SUMMARY | 2024-03-22 20:17 | XMS_ITS | Encounter Summary ---
Author Organization [facility] Address [address] [place] [phone] Phone Care Team Providers Care Automotive Paint Technician Name Role Phone Unavailable Primary Care Provider Unavailabl e Encounter Details Date Type Department Care Team (Late st Contact Info) Description 10/19/2018 Orders Only [facility] Nephrology and Hypertension [address] [facility], [place] [id number] [place] [address] Derek Baltazar MD [address] [facility], [address] [place] [address] Social History Tobacco Use Types Packs/Day Years Used Date Smoking Tobacco: Former Sex and Gender Information Value Date Recorded Sex Assigned at Not on file Gender Identity Not on file Sexual Orientation Not on file documented as of this encounter Plan of Treatment Not on file documented as of this encounter Procedures Procedure Name Priority Date/Time Associated Diagnosis Comments TOTAL PROTEIN W/ CREATININE, URINE, RANDOM Routine 10/19/2018 10:20 AM CDT RENAL FUNCTION PANEL (RFP) Routine 10/19/2018 10:20 AM CDT documented in this encounter Results * Total Protein w/ Creatinine, Urine, Random (10/19/2018 10:20 AM CDT) Creatinine, Urine 101.8 Not Estab. mg/dL [facility] 1 Protein, Urine 19.1 Not Estab. mg/dL [facility] 1 Protein/Creatin ine, Urine 188 0 - 200 mg/g creat [facility] 1 10/19/2018 10:2 0 AM CDT 10/18/2018 11:00 PM CDT Narrative [facility] - 10/20/2018 9:45 AM CDT Performed at: ??01 - [address] ??[id number] Kardex Clerk: Tk Irwin PhD, Phone: ??[phone] Derek Baltazar MD LAB URINE ORDERABLES [facility] * (ABNORMAL) Renal Function Panel (RFP) (10/19/2018 10:20 AM CDT) Glucose, Serum/Plasma 94 65 - 99 mg/dL [facility] 1 Urea nitrogen, Serum/Plasma (BUN) 17 8 - 27 mg/dL [facility] 1 Creatinine, Serum/Plasma 1.19(H) 0.57 - 1.00 mg/dL [facility] 1 eGFR, non 46(L) >59 mL/min/1.7 3 [facility] 1 eGFR, 53(L) >59 mL/min/1.7 3 [facility] 1 Urea nitrogen/Creat inine, Serum/Plasma 14 12 - 28 [facility] 1 Sodium, Serum/Plasma 143 134 - 144 mmol/L [facility] 1 Potassium, Serum/Plasma 4.6 3.5 - 5.2 mmol/L [facility] 1 Chloride, Serum/Plasma 106 96 - 106 mmol/L [facility] 1 Carbon dioxide CO2), total, Serum/Plasma 20 20 - 29 mmol/L [facility] 1 Calcium, Serum/Plasma 9.7 8.7 - 10.3 mg/dL [facility] 1 Phosphate, Serum/Plasma 3.0 2.5 - 4.5 mg/dL [facility] 1 Albumin, Serum/Plasma 4.4 3.5 - 4.8 g/dL [facility] 1 10/19/2018 10:2 0 AM CDT 10/18/2018 11:00 PM CDT Narrative [facility] - 10/20/2018 9:45 AM CDT Performed at: ??01 - [facility] ??[id number] Kardex Clerk: Tk Irwin PhD, Phone: ??[phone] Derek Baltazar MD LAB BLOOD ORDERABLES Performing Organization Address City/State/[facility] Co de Phone Number [facility] documented in this encounter Visit Diagnoses Not on filedocumented in this encounter
--- OUTSIDE RECORDS SUMMARY | 2024-03-22 20:17 | XMS_ITS | Encounter Summary ---
Author Organization [facility] Address [address] [place] [address] Phone Care Team Providers Care Precision Agriculture Technician Name Role Phone Unavailable Primary Care Provider Unavailabl e Encounter Details Date Type Department Care Team (Late st Contact Info) Description 04/11/2018 Legacy Encounter - [place] [address] Derek Baltazar MD [facility], [address] [address] Social History Tobacco Use Types Packs/Day Years [...] CBC (INCLUDES PLATELETS / NO DIFFERENTIAL) Routine 04/11/2018 10:13 AM MAGNESIUM MILL OPERATOR TOTAL PROTEIN W/ CREATININE, URINE, RANDOM Routine 04/11/2018 10:13 AM MAGNESIUM MILL OPERATOR DPS CONVERSION - TEXT (FREE TEXT) RESULT Routine 04/11/2018 10:13 AM MAGNESIUM MILL OPERATOR RENAL FUNCTION PANEL (RFP) Routine 04/11/2018 10:13 AM MAGNESIUM MILL OPERATOR documented in this encounter Results * Conversion - Text (Free Text) Result (04/11/2018 10:13 AM MAGNESIUM MILL OPERATOR) Specimen Status Report EXTERNAL LAB (NON-INTERFACE D) Comment: Ambig Abbrev RP10 Default Ambig Abbrev RP10 Default A hand-written panel/profile was received from your office. In accordance with the [facility] Ambiguous Test Code Policy dated September 2002, we have completed your order by using the closest currently or formerly recognized AMA panel. ??We have assigned Renal Panel (10), Test Code #[id number] to this request. ??If this is not the testing you wished to receive on this specimen, please contact the [facility] Client Inquiry/Technical Services Department to clarify the test order. ??We appreciate your business. 04/11/2018 10:1 3 AM MAGNESIUM MILL OPERATOR 04/11/2018 Derek Baltazar MD LAB BLOOD ORDERABLES Performing Organization Address [facility] de Phone Number EXTERNAL LAB (NON-INTERFACED) * (ABNORMAL) Total Protein w/ Creatinine, Random (04/11/2018 10:13 AM MAGNESIUM MILL OPERATOR) Creatinine, Urine 64.6 Not Estab. mg/dL EXTERNAL LAB (NON-INTERFACE D) Protein, Urine 20.7 Not Estab. mg/dL EXTERNAL LAB (NON-INTERFACE D) Protein/Creati nine, Urine 320(H) 0 - 200 mg/g creat EXTERNAL LAB (NON-INTERFACE D) 04/11/2018 10:1 3 AM MAGNESIUM MILL OPERATOR 04/11/2018 Derek Baltazar MD LAB URINE ORDERABLES Performing Organization Address [facility] de Phone Number EXTERNAL LAB (NON-INTERFACED) * CBC (includes Platelet/No Differential) (04/11/2018 10:13 AM MAGNESIUM MILL OPERATOR) Leukocytes, Blood 6.0 3.4 - 10.8 x10E3/uL EXTERNAL LAB (NON-INTERFAC ED) Erythrocytes, Blood 4.32 3.77 - 5.28 x10E6/uL EXTERNAL LAB (NON-INTERFAC ED) Hemoglobin, Blood 12.7 11.1 - 15.9 g/dL EXTERNAL LAB (NON-INTERFAC ED) Hematocrit of Blood 38.5 34.0 - 46.6 % EXTERNAL LAB (NON-INTERFAC ED) MCV 89 79 - 97 fL EXTERNAL LAB (NON-INTERFAC ED) MCH 29.4 26.6 - 33.0 pg EXTERNAL LAB (NON-INTERFAC ED) MCHC 33.0 31.5 - 35.7 g/dL EXTERNAL LAB (NON-INTERFAC ED) Red CEll Distribution Width (RDW-CV) % 14.3 12.3 - 15.4 % EXTERNAL LAB (NON-INTERFAC ED) Platelets, Blood 283 150 - 379 x10E3/uL EXTERNAL LAB (NON-INTERFAC ED) Nucleated erythrocytes/100 leukocytes, Blood CANCELED EXTERNAL L AB (NON-INTERFAC ED) Comment:Result canceled by domitila melissa ancillary. 04/11/2018 10:1 3 AM MAGNESIUM MILL OPERATOR 04/11/2018 Derek Baltazar MD LAB BLOOD ORDERABLES EXTERNAL LAB (NON-INTERFACED) * (ABNORMAL) Renal Function Panel (04/11/2018 10:13 AM MAGNESIUM MILL OPERATOR) Glucose, Serum/Plasma 113(H) 65 - 99 mg/dL EXTERNAL LAB (NON-INTERFACE D) Urea nitrogen, Serum/Plasma (BUN) 18 8 - 27 mg/dL EXTERNAL LAB (NON-INTERFACE D) Creatinine, Serum/Plasma 1.16(H) 0.57 - 1.00 mg/dL EXTERNAL LAB (NON-INTERFACE D) eGFR, non 48(L) >59 mL/min/1.7 3 EXTERNAL LAB (NON-INTERFACE D) eGFR, 55(L) >59 mL/min/1.7 3 EXTERNAL LAB (NON-INTERFACE D) Urea nitrogen/Creat inine, Serum/Plasma 16 12 - 28 EXTERNAL LAB (NON-INTERFACE D) Sodium, Serum/Plasma 142 134 - 144 mmol/L EXTERNAL LAB (NON-INTERFACE D) Potassium, Serum/Plasma 4.5 3.5 - 5.2 mmol/L EXTERNAL LAB (NON-INTERFACE D) Chloride, Serum/Plasma 104 96 - 106 mmol/L EXTERNAL LAB (NON-INTERFACE D) Carbon dioxide CO2), total, Serum/Plasma 22 20 - 29 mmol/L EXTERNAL LAB (NON-INTERFACE D) Calcium, Serum/Plasma 9.8 8.7 - 10.3 mg/dL EXTERNAL LAB (NON-INTERFACE D) Phosphate, Serum/Plasma 3.5 2.5 - 4.5 mg/dL EXTERNAL LAB (NON-INTERFACE D) Albumin, Serum/Plasma 4.6 3.5 - 4.8 g/dL EXTERNAL LAB (NON-INTERFACE D) 04/11/2018 10:1 3 AM MAGNESIUM MILL OPERATOR 04/11/2018 Derek Baltazar MD LAB BLOOD ORDERABLES EXTERNAL LAB (NON-INTERFACED) documented in this encounter Visit Diagnoses Not on filedocumented in this encounter
--- OUTSIDE RECORDS SUMMARY | 2024-03-22 20:18 | XMS_ITS | Encounter Summary ---
Author Organization [facility] Address [address] [place] [phone] Phone Care Team Providers Care Handkerchief Cutter Name Role Phone Unavailable Primary Care Provider Unavailabl e Encounter Details Date Type Department Care Team (Late st Contact Info) Description 09/26/2016 Legacy Encounter - [place] [address] Derek Baltazar MD [facility] [facility], [address] [address] Social History Tobacco Use Types Packs/Day Years Used Date Smoking Tobacco: Never Assessed Sex and Gender Information Value Date Recorded Sex Assigned at Not on file Gender Identity Not on file Sexual Orientation Not on file documented as of this encounter Plan of Treatment Not on file documented as of this encounter Procedures Procedure Name Priority Date/Time Associated Diagnosis Comments MANUALLY ENTERED ORDER Routine 09/26/2016 12:00 AM CDT documented in this encounter Results * (ABNORMAL) Manually Entered Order (09/26/2016 12:00 AM CDT) Creatinine 1.24 0.5 - 1.3 EXTERNAL LAB Estimated Glomerular Filtration Rate (eGFR) 45(L) 60 - 100 EXTERNAL LAB Cholesterol, LDL, Serum/Plasma 108 0 - 130 EXTERNAL LAB PTH, INTACT 34 14 - 72 EXTERNAL LAB Vitamin D (25-OH) 33 30 - 100 EXTERNAL LAB HEMOGLOBIN 12.4 12 - 16 EXTERNAL LAB 09/26/2016 Derek Baltazar MD LAB BLOOD ORDERABLES EXTERNAL LAB documented in this encounter Visit Diagnoses Not on filedocumented in this encounter
--- OUTSIDE RECORDS SUMMARY | 2024-03-22 20:18 | XMS_ITS | Encounter Summary ---
Author Organization [facility] Address [address] [place] [address] Phone Care Team Providers Care Dry Boss Name Role Phone Unavailable Primary Care Provider Unavailabl e Encounter Details Date Type Department Care Team (Late st Contact Info) Description 05/22/2017 Legacy Encounter - Labs [place] [address] Derek Baltazar MD [address] [facility], [place] [address] Social History Tobacco Use Types Packs/Day Years [...] Associated Diagnosis Comments MANUALLY ENTERED ORDER Routine 05/22/2017 12:00 AM CDT documented in this encounter Results * (ABNORMAL) Manually Entered Order (05/22/2017 12:00 AM CDT) Creatinine 1.35(H) 0.5 - 1.3 EXTERNAL LAB Estimated Glomerular Filtration Rate (eGFR) 40(L) 60 - 100 EXTERNAL LAB HEMOGLOBIN 11.1(L) 12 - 16 EXTERNAL LAB ADDITIONAL TEST ESR 6 EXTERNAL LAB 05/22/2017 Derek Baltazar MD LAB BLOOD ORDERABLES EXTERNAL LAB documented in this encounter Visit Diagnoses Not on filedocumented in this encounter
== END 2024-03-16 08:14 | disposition home or self-care (01) ==
LOC: ANHIMG 08:15
PROVIDERS: Visit Provider Orthopaedic Surgery
DX: S83.241A Other tear of medial meniscus, current injury, right knee, initial encounter (principal); X58.XXXA Exposure to other specified factors, initial encounter; S82.134A Nondisplaced fracture of medial condyle of right tibia, initial encounter for closed fracture; M22.41 Chondromalacia patellae, right knee; M25.461 Effusion, right knee
CPT/HCPCS: 73721

== ENCOUNTER 2024-04-16 10:42 | Emergency (ER) | payer MEDICARE, OTHER, SELFPAY ==
[2024-04-16] VITALS (10 sets, daily range): BP systolic 137–199; BP diastolic 59–96; PULSE 68–99; RESP 14–19; TEMP 36.2–36.5; O2SAT 95–100
--- NOTE | ~2024-04-16 | CT_ITS ---
History: Headache PROCEDURE: CT head without contrast. COMPARISON: None TECHNIQUE: Axial imaging of the head performed from the skull base to the vertex without IV contrast. Sagittal a nd coronal reformations obtained. DLP: 605 mGy-cm FINDINGS: The ventricles are normal in size, shape and position. There is no mass, mass effect or midline shift. There is no abnormal extra-axial fluid collection or intracranial hemorrhage. Visualized paranasal sinuses are clear. The mastoid air cells are well aerated. No acute displaced fractures within the overlying cranium. Impression: No acute intracranial hemorrhage or suspicious mass effect. Reviewed, dictated and finalized at location A. NG MACHINE OFFBEARER Impression: No acute intracranial hemorrhage or suspicious mass effect.
--- OUTSIDE RECORDS SUMMARY | 2024-04-16 11:22 | XMS_ITS | Encounter Summary ---
Author Organization [facility] Address [address] [place] [address] Care Team Providers Care Fly Maker Name Role Phone Jhonathan Fisher MD Primary Care Provider Opal ramírez Encounter Details Date Type Department Care Team (Latest Contact Info) Description 12/25/1999 Outpatient Historical [facility] Jhonathan Nunez MD Other screening mammogram (Primary Dx) Social History Tobacco Use Types Packs/Day Years Used Date Smoking Tobacco: Never Assessed Comments Unknown Sex and Gender Information Value Date Recorded Sex Assigned at Not on file Legal Sex Female 3:08 AM QUEEN'S COUNSEL Gender Identity Not on file Sexual Orientation Not on file documented as of this encounter Plan of Treatment Not on file documented as of this encounter Visit Diagnoses Diagnosis Other screening mammogram- Primary documented in this encounter Care Teams Fly Maker Relationship Specialty Start Date End Date Jhonathan Fisher MD PCP - General 02/24/15 documented as of this encounter
--- OUTSIDE RECORDS SUMMARY | 2024-04-16 11:22 | XMS_ITS | Patient Health Summary ---
Author Organization [facility] Address [address] [facility] [place] [address] Care Team Providers Care Valuation Manager Name Role Phone Yohan Barros DPM Unavailable [phone] Tamia Brooks MD Primary Care Provider [phone] Tamia Brooks MD Unavailable [phone] Note from [facility],non-owned Affiliates and Associated Physician Practices is amultiple site organization consisting of ambulatory clinics and hospital sitesin [place], [place], [place] and [place]. This disclosure is being madepursuant to the Care Everywhere program and may not contain all information available regarding this patient. Last updated 17.[facility] Allergies * Darvon(Nausea and/or Vomiting,Dizziness) Medications * [...] before meals 4 refills by 11/17/2024 * sucralfate (Carafate) 1 GM tablet(Started 01/19/2024) [...] GASTROESOPHAGEAL REFLUX DISEASE 3 refills by 02/03/2025 * lisinopril (Prinivil; Zestril) 40 MG tablet(Started 04/14/2024) Take 1 (one) tablet by mouth once daily 1 refill by 04/14/2025 Ended Medications* lisinopril (Prinivil; Zestril) 40 MG tablet(Started 12/23/2023)(Discontinued) TAKE 1 TABLET DAILY 1 refill by 12/22/2024 Active Problems Problem Noted Date Diagnosed Date [...] 68 11/18/2023 1:19 PM CDT Temperature 37.2 C (98.9 F) 11/18/2023 1:19 PM CDT Respiratory Rate 16 04/23/2018 1:13 PM DIGITAL MEDIA BUYER Oxygen Saturation 95% 11/18/2023 1:19 PM CDT [...] disease, without long-term current use of insulin ([facility]) * COMPREHENSIVE METABOLIC PANEL(Performed 09/23/2023) Performed for Type 2 diabetes mellitus with stage 3a chronic kidney disease, without long-term current use of insulin ([facility]) * CBC W AUTO DIFFERENTIAL(Performed 09/23/2023) Performed for Type 2 diabetes mellitus with stage 3a chronic kidney disease, without long-term current use of insulin ([facility]) * ENDOSCOPY ORDER(Performed 09/18/2023) * COLONOSCOPY(Performed 09/18/2023) * MAMMO BILAT SCREENING W TEJ(Performed 06/23/2023) Performed for Screening mammogram, encounter for * HEMOGLOBIN A1C - POINT OF CARE (AMB)(Performed 06/18/2023) Performed for Type 2 diabetes mellitus with stage 3a chronic kidney disease, without long-term current use of insulin ([facility]) * HEMOGLOBIN A1C - POINT OF CARE [...] unspecified whether stage 3a or 3b CKD ([facility]) * MRI CERVICAL SPINE WO CONTRAST(Performed 10/04/2021) Performed for DDD (degenerative disc disease), cervical, Cervical radiculopathy * XR CERVICAL SPINE 2 OR 3VW(Performed 09/21/2021) Performed for Cervical radiculitis * XR CHEST 2VW(Performed 03/29/2021) Performed for Cough, SOB (shortness of breath) * CBC W AUTO DIFFERENTIAL(Performed 01/12/2021) Performed for Stage 3b chronic kidney disease ([facility]) * LIPID PROFILE(Performed 01/12/2021) Performed for Hyperlipidemia, unspecified hyperlipidemia type * BASIC METABOLIC PANEL (CALCIUM TOTAL)(Performed 01/12/2021) Performed for Stage 3b chronic kidney disease ([facility]) * HEMOGLOBIN A1C - POINT OF CARE (AMB)(Performed 08/30/2020) Performed for Type 2 diabetes mellitus with stage 3a chronic kidney disease, without long-term current use of insulin ([facility]) * MICROALB/CREAT RATIO URINE RANDOM PANEL(Performed 02/11/2020) Performed for Medicare annual wellness visit, subsequent, Type 2 diabetes mellitus with stage 3a chronic kidney disease, without long-term current use of insulin ([facility]) * LIPID PROFILE(Performed 02/11/2020) Performed for Medicare annual wellness visit, subsequent, Type 2 diabetes mellitus with stage 3a chronic kidney disease, without long-term current use of insulin ([facility]) * COMPREHENSIVE METABOLIC PANEL(Performed 02/11/2020) Performed for Medicare annual wellness visit, subsequent, Type 2 diabetes mellitus with stage 3a chronic kidney disease, without long-term current use of insulin ([facility]) * CBC W AUTO DIFFERENTIAL(Performed 02/11/2020) Performed for Medicare annual wellness visit, subsequent, Type 2 diabetes mellitus with stage 3a chronic kidney disease, without long-term current use of insulin ([facility]) * SARS-COV-2 (COVID-19) IN HOUSE(Performed 10/01/2019) Performed [...] stage 3, GFR 30-59 ml/min ([facility]) * VITAMIN D 25-HYDROXY(Performed 10/19/2018) Performed for CKD (chronic kidney disease) stage 3, GFR 30-59 ml/min ([facility]) * HEMOGLOBIN A1C(Performed 10/19/2018) Performed for Prediabetes [...] stage 3, GFR 30-59 ml/min ([facility]) * IMAGING/RADIOLOGY/XRAY RESULTS ORDER(Performed 06/24/2017) * ECHOCARDIOGRAM [...] stage 3, GFR 30-59 ml/min ([facility]) * PHOSPHORUS BLOOD(Performed 09/26/2016) Performed for CKD (chronic kidney disease) stage 3, GFR 30-59 ml/min ([facility]) * PTH INTACT(Performed 09/26/2016) Performed for CKD (chronic kidney disease) stage 3, GFR 30-59 ml/min ([facility]) * VITAMIN D 25-HYDROXY(Performed 09/26/2016) Performed for Encounter for vitamin deficiency screening, CKD (chronic kidney disease) stage 3, FFJ65-64 ml/min ([facility]) * HEPATITIS C ANTIBODY(Performed 09/26/2016) Performed for Need for hepatitis C screening test * CBC W AUTO DIFFERENTIAL(Performed 09/26/2016) Performed for CKD (chronic kidney disease) stage 3, GFR 30-59 ml/min ([facility]) * TSH HI LOW REFLEX FREE T4(Performed [...] [facility] Lot # [id number] [facility] QC Verified Yes Yes [facility] Blood BLOOD SPECIMEN / Unknown 11/18/2023 1:25 PM CDT Tamia Brooks MD LAB - POINT OF CARE ORDERABLES [facility] [address], [address] [phone] * EYE EXAM (10/15/2023) Anatomical Region Laterality [...] Resulting Agency Comment Lab Testing performed at: [facility] [address] [facility] [phone] Tamia Brooks MD LAB - CHEMISTRY PREETI COSTA [facility] INSURANCE BILL [address] [place] [address] * MICROALB/CREAT RATIO URINE RANDOM PANEL (09/23/2023 [...] Resulting Agency Comment Lab Testing performed at: [address] [phone] Tamia Brooks MD LAB - URINE CHEMISTR Y ORDERABLES Performing Organization Address City/[facility]/ZIP Co de Phone Number [facility] INSURANCE BILL [address] [place] [address] * VITAMIN D 25-HYDROXY (09/23/2023 2:28 PM CDT) Only the most recent of9 resultswithin the time period is included. Vitamin D, 25 Hydroxy 73.3 30 - 80 ng/mL [facility] INSURANCE BILL Comment: Vitamin D Status: Deficiency <20 ng/mL Insufficiency 20-30 ng/mL Sufficiency 30-100 ng/mL Toxicity >100 ng/mL Blood BLOOD SPECIMEN / Unknown 09/23/2023 2:28 PM CDT 09/23/2023 Narrative Resulting Agency Comment Lab Testing performed at: [address] [phone] Tamia Brooks MD LAB - CHEMISTRY ORDE RABLES Performing Organization Address [facility] Co de Phone Number [facility] INSURANCE BILL [address] [place] [address] * (ABNORMAL) CBC WITH DIFFERENTIAL (09/23/2023 2:28 PM CDT) Only the most recent of12 resultswithin the time period is included. WBC 9.1 4.0 - 10.7 x10E9/L [facility] [...] Resulting Agency Comment Lab Testing performed at: [address] [phone] Tamia Brooks MD LAB - HEMATOLOGY ORD ERABLES [facility] INSURANCE BILL [address] [place] [address] * (ABNORMAL) COMPREHENSIVE METABOLIC PANEL (09/23/2023 2:28 [...] Resulting Agency Comment Lab Testing performed at: [address] [phone] Tamia Brooks MD LAB - CHEMISTRY PREETI COSTA [facility] INSURANCE BILL [address] [place] [address] * FERRITIN (09/23/2023 2:28 PM CDT) Ferritin 80 5 - 204 ng/mL [facility] INSURANCE BILL Blood BLOOD SPECIMEN / Unknown 09/23/2023 2:28 PM CDT 09/23/2023 Narrative Resulting Agency Comment Lab Testing performed at: [address] [phone] Truong Cadet MD LAB - CHEMISTRY PREETI COSTA [facility] INSURANCE BILL [address] [place] [address] * COLONOSCOPY (09/18/2023) 09/18/2023 Narrative 09/18/2023 Ordered [...] [facility] Lot # [id number] [facility] Expiration Date 09/06/[address] [facility] Instrument Serial Number n/a [facility] COVID Internal Control Acceptable Acceptable [facility] Microbiology SPECIMEN FROM NASAL FOSSAE / Unknown 08/20/2022 11:30 AM CDT Tamia Brooks MD LAB - POINT OF CARE ORDERABLES [facility] [address], [place] [address], [facility] [phone] * STREP A SCREEN - POINT OF CARE (AMB) (08/20/2022 11:25 AM CDT) Strep A Rapid POCT Negative Negative [facility] Strep A Internal Control Present [facility] Other ENTIRE THROAT (SURFACE REGION OF NECK) / Unknown 08/20/2022 11:25 AM CDT Tamia Brooks MD LAB - POINT OF CARE ORDERABLES [facility] [address], [place] [address], [facility] [phone] * EYE EXAM (06/18/2022) Anatomical Region Laterality [...] * XR CHEST 2VW (03/29/2021 1:23 PM DIGITAL MEDIA BUYER) Only the most recent of2 resultswithin the time period is included. Anatomical Region Laterality Modality Chest Radiographic Aimee ging 03/29/2021 1:45 PM DIGITAL MEDIA BUYER Narrative 03/29/2021 1:59 PM DIGITAL MEDIA BUYER CHEST 2 VIEW HISTORY: Cough and shortness [...] with recommendations from the NKF-ASN Task force, [facility] is in the process of updating its eGFR calculation to the 2020 CKD-EPI creatinine equation that estimates kidney function without a race variable. BUN/Creatinine Ratio 20 12 [...] Resulting Agency Comment Lab Testing performed at: [place] [id number] [facility] [phone] Tamia Brooks MD LAB - CHEMISTRY PREETI COSTA Performing Organization Address City/[facility]/ZIP Co de Phone Number [facility] INSURANCE BILL [address] [place] [address] * (ABNORMAL) LIPID PROFILE (LIPID PANEL) (01/12/2021 [...] Resulting Agency Comment Lab Testing performed at: [address] [phone] Tamia Brooks MD LAB - CHEMISTRY PREETI COSTA Performing Organization Address City/[facility]/ZIP Co de Phone Number [facility] INSURANCE BILL [address] [place] [address] * (ABNORMAL) [facility] COVID PCR (10/01/2019 4:58 PM CDT) COVID-19 PCR Detected( AA) Not detected, Invalid 10/02/2019 12:35 PM CDT [facility] MICROBIOLOGY Microbiology SPECIMEN FROM NASOPHARYNGEAL STRUCTURE / Unknown Collection / Unknown 10/01/2019 4:58 PM CDT 10/01/2019 4:58 PM CDT Narrative [facility] MICROBIOLOGY - 10/02/2019 12:35 PM CDT This nucleic acid amplification assay performance was validated by [facility]. This test has been authorized by the Food and Drug administration (FDA)under an Emergency Use Authorization (EUA). This test has been validated [...] acid amplification assay performance was validated by [facility]. This test has been authorized by the Food and Drug administration (FDA)under an Emergency Use Authorization (EUA). This test has been validated [...] Tamia Brooks MD [facility] [address] [place] [address], [facility] [phone] * DEXA BONE DENSITY AXIAL SKELETON (03/17/2019 10:46 AM DIGITAL MEDIA BUYER) Only the most recent of2 resultswithin the time period is included. Anatomical Region Laterality Modality Nuclear Medicine 03/17/2019 10:5 0 AM DIGITAL MEDIA BUYER Impressions 03/17/2019 10:53 AM DIGITAL MEDIA BUYER Osteopenia of the hips. Normal bone mineral density of the lumbar spine. [employer] DEFINITIONS NORMAL= T-Score at or above -1.0 SD OSTEOPENIA = T-Score between -1 and -2.5 SD OSTEOPOROSIS = T-Score at or below -2.5 SD Reading Radiologist: Kiki Mireles MD on 03/17/2019 at 10:53 AM Narrative 03/17/2019 10:53 AM DIGITAL MEDIA BUYER BONE MINERAL DENSITY STUDY: INDICATION: 68-year-old for [...] Resulting Agency Comment Lab Testing performed at: [employer] [address] [facility] [phone] Tamia Brooks MD LAB - CHEMISTRY PREETI COSTA [facility] INSURANCE BILL [address] [place] [address] * PTH INTACT (10/19/2018 11:20 AM CDT) [...] Resulting Agency Comment Lab Testing performed at: [email or web address] [facility] [phone] Tamia Brooks MD LAB - CHEMISTRY PREETI COSTA Performing Organization Address City/[facility]/ZIP Co de Phone Number [facility] INSURANCE BILL [address] [place] [address] * (ABNORMAL) HEMOGLOBIN A1C (10/19/2018 11:20 AM CDT) Only the most recent of4 resultswithin the time period is included. Hemoglobin A1c 6.5(H) 4.8 - 5.6 % [facility] INSURANCE BILL Comment: . Prediabetes: 5.7 - 6.4 Diabetes: >6.4 Glycemic control for adults with diabetes: <7.0 Blood BLOOD SPECIMEN / Unknown 10/19/2018 11:20 AM CDT 10/19/2018 Narrative Resulting Agency Comment Lab Testing performed at: [email or web address] [facility] [phone] Tamia Brooks MD LAB - CHEMISTRY PREETI COSTA [facility] INSURANCE BILL [address] [place] [address] * AMB REFERRAL TO BREAST SURGERY (08/01/2018 [...] CDT) 05/23/2017 8:21 AM CDT Narrative [facility] CARDIOLOG[facility] - 05/23/2017 5:23 PM CDT [facility] [place] at [address] [place] [address] Transthoracic Echocardiogram 2D, M-mode, Doppler, and Color Doppler Patient: MAURA WATKINS MR number: [id number] Height: 65 in Weight: 186.6 lb BSA: 1.92 m Study date: 23-May-2017 : 1950 Age: 67 years Gender: Female Race: Allergies: DARVON Java Developer Architect: Faiza Mcgrath RDCS, RVT Referring Physician: Tamia [...] Procedure: The study was performed in the [facility]. The transthoracic approach was used. The [...] Procedure Note Madhu Richards MD - 05/23/2017 [facility] [place] [address] Transthoracic Echocardiogram 2D, M-mode, Doppler, and Color Doppler Patient: MAURA WATKINS MR number: [id number] Height: 65 in Weight: 186.6 lb BSA: 1.92 m Study date: 23-May-2017 : 1950 Age: 67 years Gender: Female Race: Allergies: DARVON Java Developer Architect: Faiza Mcgrath RDCS, RVT Referring Physician: Tamia [...] Procedure: The study was performed in the [facility]. The transthoracic approach was used. The [...] Tamia Brooks MD ECHO ORDERABLES [facility] [address] [place] [address] * B-TYPE NATRIURETIC PEPTIDE (05/22/2017 8:35 AM CDT) Only the most recent of2 resultswithin the time period is included. BNP 16.5 0.0 - 100.0 pg/mL [facility] INSURANCE BILL Comment:FASTING Blood BLOOD SPECIMEN / Unknown 05/22/2017 8:35 AM CDT 05/22/2017 Narrative Resulting Agency Comment [facility] [address] [facility] [phone] Tamia Brooks MD LAB - CHEMISTRY PREETI COSTA [facility] INSURANCE BILL [address] [place] [address] * C-REACTIVE PROTEIN (04/17/2017 9:11 AM DIGITAL MEDIA BUYER) C-Reactive Protein 1.0 0.0 - 4.9 mg/L [facility] INSURANCE BILL Comment:FASTING Blood BLOOD SPECIMEN / Unknown 04/17/2017 9:11 AM DIGITAL MEDIA BUYER 04/17/2017 Narrative Resulting Agency Comment [facility] [address] [facility] [phone] Tamia Brooks MD LAB - CHEMISTRY PREETI COSTA Performing Organization Address City/[facility]/ZIP Co de Phone Number [facility] INSURANCE BILL [address] [place] [address] * ERYTHROCYTE SEDIMENTATION RATE (04/17/2017 9:11 AM DIGITAL MEDIA BUYER) Erythrocyte Sedimentation Rate Westergren 6 0 - 40 mm/hr [facility] INSURANCE BILL Comment:FASTING Blood BLOOD SPECIMEN / Unknown 04/17/2017 9:11 AM DIGITAL MEDIA BUYER 04/17/2017 Narrative Resulting Agency Comment [facility] [address] [facility] [phone] Tamia Brooks MD LAB - HEMATOLOGY ORD ERAJOSE [facility] INSURANCE BILL [address] [place] [address] * PULMONARY/RESPIRATORY REPORT ORDER (02/20/2017 10:19 PM DIGITAL MEDIA BUYER) Narrative 02/20/2017 10:19 PM DIGITAL MEDIA BUYER Ordered by an unspecified provider. Scanned Document RESPIRATORY THERAPY ORDERABLES * CPAP/BIPAP TITRATION (02/14/2017 10:29 AM DIGITAL MEDIA BUYER) Narrative Ramon Parker MD - 02/14/2017 10:29 AM DIGITAL MEDIA BUYER Rmaon Parker MD 02/14/2017 10:29 AM Polysomnogram sleep study with [...] No ST or T-wave abnormalities were seen. 1 run of SVT was seen. EEG. With [...] needs to be evaluated. Ramon Parker MD, [facility]. Be advised [...] WITH CPAP IF INDICATED (01/20/2017 9:44 AM DIGITAL MEDIA BUYER) Narrative Ramon Parker MD - 01/20/2017 9:44 AM DIGITAL MEDIA BUYER Ramon Parker MD 01/20/2017 9:44 AM Polysomnogram sleep study. 66 year-old who reports snoring and excessive daytime sleepiness suspicious of sleep apnea was referred for a polysomnogram. The Winters Sleepiness Scale at the night of the [...] for restless leg syndrome. Ramon Parker MD, [facility]. Be advised that voice recognition software was used in the production of this record. Errors in interpretation may have been inadvertently missed during review. Ramon Parker MD [facility] ORDERAB LES * HELICOBACTER PYLORI UREASE (STL) (10/04/2016 12:23 PM CDT) Helicobacter pylori Urease Initial Negative Negative 10/05/2016 5:11 PM CDT [facility] Helicobacter pylori Urease Final Negative Negative 10/05/2016 5:11 PM CDT [facility] Microbiology GASTRIC ANTRAL BIOPSY SPECIMEN / Unknown Collection / Unknown 10/04/2016 12:23 PM CDT 10/04/2016 3:06 PM CDT James Calix MD LAB - MICROBIOLOGY O RDERABLES [facility] [address] [place], [place] [phone] * EGD (10/04/2016 11:57 AM CDT) Report Endoscopy POC _ Patient Name: Maura Watkins Procedure Date: 10/04/2016 11:57 AM Date of : 1950 Admit Type: Outpatient Age: 66 Gender: Female Attending MD: James Calix MD _ Procedure: Upper GI endoscopy Indications: Suspected reflux esophagitis Providers: James Calix MD (Doctor), Elvia Garcia RN, Courtney Hitchcock Referring MD: Tamia Brooks (Referring MD) Medicines: Monitored Anesthesia Care Complications: No immediate complications. _ Procedure: Pre-Anesthesia Assessment: - ASA Grade Assessment: II - A patient with mild systemic disease. - Airway Examination: Mallampati Class I (tonsillar pillars visualized). After obtaining informed consent, the endoscope was passed under direct vision. Throughout the procedure, the patient's blood pressure, pulse, and oxygen saturations were monitored continuously. The Endoscope was introduced through the mouth, and advanced to the second part of duodenum. The upper GI endoscopy was accomplished without difficulty. The patient tolerated the procedure well. Impression: - Hiatus hernia. - Gastritis. Biopsied. - Normal duodenal bulb and 2nd part of the duodenum. Findings: A hiatus hernia was present. Localized mild inflammation characterized by erythema was found in the gastric antrum. Biopsies were taken with a cold forceps for Helicobacter pylori testing using CLOtest. Estimated blood loss: none. The duodenal bulb and 2nd part of the duodenum were normal. _ Recommendation: - Follow an antireflux regimen. - Use Prilosec (omeprazole) 40 mg PO BID. Procedure Code(s): --- Professional --- 24222, Esophagogastroduo denoscopy, flexible, transoral; with biopsy, single or multiple --- Technical --- 60210, Esophagogastroduo denoscopy, flexible, transoral; with biopsy, single or multiple Diagnosis Code(s): --- Professional --- K44.9, Diaphragmatic hernia without obstruction or gangrene K29.70, Gastritis, unspecified, without bleeding --- Technical --- K44.9, Diaphragmatic hernia without obstruction or gangrene K29.70, Gastritis, unspecified, without bleeding CPT copyright 2015 [employer]. All rights reserved. The codes documented in this report are preliminary and upon mottler machine feeder review may be revised to meet current compliance requirements. James Calix MD 10/04/2016 12:32:07 PM This report has been signed electronically. Number of Addenda: 0 Note Initiated On: 10/04/2016 11:57 AM [facility] ENDOSCOPY 10/04/2016 11:5 7 AM CDT James Calix MD GI PROCEDURE ORDERAB LES [facility] ENDOSCOPY * PHOSPHORUS BLOOD (09/26/2016 8:02 AM CDT) Pathologist [facility] Phosphorus 4.0 2.5 - 4.5 mg/dL [facility] INSURANCE BILL Comment:FASTING Blood BLOOD SPECIMEN / Unknown 09/26/2016 8:02 AM CDT 09/26/2016 Narrative Resulting Agency Comment [facility] [address] [facility] [phone] Tamia Brooks MD LAB - CHEMISTRY PREETI COSTA Performing Organization Address [facility] de Phone Number [facility] INSURANCE BILL [address] [place] [address] * HEPATITIS C ANTIBODY (09/26/2016 8:02 AM CDT) [facility] Hepatitis C Antibody <0.1 0.0 - 0.9 s/co ratio [facility] INSURANCE BILL Comment: Negative: < 0.8 Indeterminate: 0.8 - 0.9 Positive: > 0.9 . The CDC recommends that a positive HCV antibody result be followed up with a HCV Nucleic Acid Amplification test (814031). FASTING Blood BLOOD SPECIMEN / Unknown 09/26/2016 8:02 AM CDT 09/26/2016 Narrative Resulting Agency Comment [facility] [address] [facility] [phone] Tamia Brooks MD LAB - CHEMISTRY PREETI COSTA Performing Organization Address [facility] de Phone Number [facility] INSURANCE BILL [address] [place] [address] * (ABNORMAL) CULTURE URINE (09/16/2016 11:28 AM CDT) [facility] Urine Culture Routine Final report(A) [facility] INSURANCE BILL Result 1 (A) [facility] INSURANCE BILL Comment: Escherichia coli, identified by an automated biochemical system. Greater than 100,000 colony forming units per mL Antimicrobial Susceptibility [facility] INSURANCE BILL Comment: S = Susceptible; I = Intermediate; R = Resistant P = Positive; N = Negative MICS are expressed in micrograms per mL Antibiotic RSLT#1 RSLT#2 RSLT#3 RSLT#4 Amoxicillin/Clavulanic Acid I Ampicillin R Cefepime S Ceftriaxone S Cefuroxime S Cephalothin R Ciprofloxacin R Ertapenem S Gentamicin S Imipenem S Levofloxacin R Nitrofurantoin S Piperacillin R Tetracycline R Tobramycin S Trimethoprim/Sulfa S Urine URINE SPECIMEN OBTAINED BY CLEAN CATCH PROCEDURE / Unknown 09/16/2016 11:28 AM CDT 09/16/2016 Narrative Resulting Agency Comment [facility] [address] [facility] [phone] Tamia Brooks MD LAB - MICROBIOLOGY O RDERABLES [facility] INSURANCE BILL [address] [place] [address] * URINALYSIS - POINT OF CARE (09/16/2016) Clarity UA POCT cloudy Color UA POCT dk yellow Leukocyte UA large Negative Nitrite UA POCT neg Negative Urobilinogen UA 0.2 0.1 - 1.0 Protein UA POCT trace Negative pH UA 5.5 5.0 - 8.0 pH units Blood UA moderate Negative Specific Barre UA POCT <1.005 1.002 - 1.030 Ketone [...] 6:23 PM CDT Narrative Resulting Agency Comment [facility] [address] [facility] [phone] Lemuel Hoang MD LAB - CHEMISTRY PREETI COSTA [facility] INSURANCE BILL * DEXA BONE DENSITY 2 SITES (08/17/2014 6:09 PM CDT) Anatomical Region Laterality Modality Other Narrative 08/17/2014 6:09 PM CDT Reese Valverde MD 08/17/2014 6:09 PM [facility] Medical group BONE DENSITY REPORT Pt. Name: Maura Watkins Gender: female : 1950 Test Date: 08/17/2014 Referring Physician: Lemuel Hoang MD Technologist: SANJUANA Jaramillo A Central DXA was performed today using a [employer] C senior relationship manager. The images and data have been scanned. [...] Reese Valverde MD Physician and Certified Clinical Diffusion Operator Lemuel Hoang MD DEXA ORDERABLES * ALT (07/13/2014 8:47 AM CDT) ALT 18 0 - 32 IU/L [facility] INSURANCE BILL Blood specimen (specimen) BLOOD SPECIMEN / Unknown 07/13/2014 8:47 AM CDT 07/13/2014 1:28 PM CDT Narrative Resulting Agency Comment [facility] [place] [id number] [facility] [phone] Lemuel Hoang MD LAB - CHEMISTRY PREETI COSTA [facility] Organization Address City/State/ZIP Co de Phone Number [facility] INSURANCE BILL * AST BLOOD (07/13/2014 8:47 AM CDT) AST 24 0 - 40 IU/L [facility] INSURANCE BILL Blood specimen (specimen) BLOOD SPECIMEN / Unknown 07/13/2014 8:47 AM CDT 07/13/2014 1:28 PM CDT Narrative Resulting Agency [facility] [address] [facility] [phone] Lemuel Hoang MD LAB - CHEMISTRY PREETI COSTA Performing Organization Address [facility] de Phone Number [facility] INSURANCE BILL * TSH (07/13/2014 8:47 AM CDT) Only the most recent of7 resultswithin the time period is included. TSH 2.060 0.450 - 4.500 uIU/mL [facility] INSURANCE BILL Blood specimen (specimen) BLOOD SPECIMEN / Unknown 07/13/2014 8:47 AM CDT 07/13/2014 1:28 PM CDT Narrative Resulting Agency Comment [facility] [address] [facility] [phone] Lemuel Hoang MD LAB - CHEMISTRY PREETI COSTA Performing Organization Address [facility] de Phone Number [facility] INSURANCE BILL * T4 FREE (07/13/2014 8:47 AM CDT) Only the most recent of4 resultswithin the time period is included. Pathologist [facility] T4 Free 1.00 0.82 - 1.77 ng/dL [facility] INSURANCE BILL Blood specimen (specimen) BLOOD SPECIMEN / Unknown 07/13/2014 8:47 AM CDT 07/13/2014 1:28 PM CDT Narrative Resulting Agency Comment [facility] [address] [facility] [phone] Lemuel Hoang MD LAB - CHEMISTRY PREETI COSTA Performing Organization Address [facility] Co de Phone Number [facility] INSURANCE BILL * MAMMO SCREENING DIGITAL IMAGE BILAT (02/02/2014) Only the most recent of6 resultswithin the time period is included. Anatomical Region Laterality Modality Breast Bilateral Other Jhonathan Fisher MD MAMMO ORDERABLES * ENDOSCOPY, COLON, SCREENING (11/05/2013 9:10 AM CDT) Report Endoscopy POC __ _ Patient Name: Maura Watkins Procedure Date: 11/05/2013 9:10 AM Date of : 1950 Admit Type: Outpatient Age: 63 Gender: Female Attending MD: Jos Scott MD __ _ Procedure: Colonoscopy Indications: Screening in patient at increased risk: Colorectal cancer in brother 60 or older Providers: Jos Scott MD (Doctor), Latonia Salazar RN, Travis Barrett RN Referring MD: Jhonathan Fisher MD (Referring MD) Medicines: See the Anesthesia note for documentation of the administered medications Complications: No immediate complications. __ _ Procedure: After I obtained informed consent, the scope was passed under direct vision. Throughout the procedure, the patient's blood pressure, pulse, and oxygen saturations were monitored continuously. The Colonoscope was introduced through the anus and advanced to the cecum, identified by appendiceal orifice and ileocecal valve. The colonoscopy was somewhat difficult due to restricted mobility of the colon. Successful completion of the procedure was aided by applying abdominal pressure. The patient tolerated the procedure well. The quality of the bowel preparation was fair. The ileocecal valve, appendiceal orifice and rectum were photographed. Impression: - Non-thrombosed internal hemorrhoids found on perianal exam. - The examination was otherwise normal. Findings: The perianal exam was abnormal. Findings include non-thrombosed internal hemorrhoids. The exam was otherwise without abnormality. __ _ Recommendation: - Discharge patient to home. - Return to previous diet. - Continue present medications. - Repeat colonoscopy in 5-7 years for surveillance. - Call my office at [phone] if you have any questions. Procedure Code(s): --- Professional --- G0105, Colorectal cancer screening; colonoscopy on individual at high risk --- Technical --- G0105, Colorectal cancer screening; colonoscopy on individual at high risk Diagnosis Code(s): --- Professional --- V16.0, Family history of malignant neoplasm of gastrointestinal tract 455.0, Internal hemorrhoids without mention of complication --- Technical --- V16.0, Family history of malignant neoplasm of gastrointestinal tract 455.0, Internal hemorrhoids without mention of complication CPT copyright 2013 [place] [employer]. All rights reserved. The codes documented in this report are preliminary and upon mottler machine feeder review may be revised to meet current compliance requirements. ____ Jos Scott MD 11/05/2013 9:48 AM Number of Addenda: 0 Note Initiated On: 11/05/2013 9:10 AM [facility] ENDOSCOPY 11/05/2013 9:10 AM CDT Jos Scott MD [facility] Organization Address City/State/ZIP Co de Phone Number [facility] ENDOSCOPY * CVD REPORT (PO REF LAB) [...] RISK ASSESSMENT: National Heart, Lung, and Blood [place]'s Third Report of the NCEP Expert Panel on Detection, Evaluation and Treatment of High Blood Cholesterol in Adults (ATP III) (2002. NIH publication 02-5215); Dejuanl et al. Diabetes Care 2008; 31(4):811-82; Contois et al. Clin Chem 2009; 55(3):407-419; Sergio [place] et al. 2013 ACC/AHA guideline on the treatment of blood cholesterol to reduce atherosclerotic cardiovascular risk in adults: a report of the [place] College [employer]/[place] [employer] Task Force on Practice Guidelines. Circulation 2013; 00:000-000. PDF Image Not applicable [facility] INSURANCE BILL 08/28/2013 8:48 AM CDT 08/28/2013 1:09 PM CDT Narrative Resulting Agency Comment [facility] [address] [facility] [phone] Jhonathan Fisher MD LAB - CHEMISTRY ORD [...] determined the test is not needed 08/28/2013 8:4 8 AM CDT 08/28/2013 1:09 PM CDT Narrative Resulting Agency Comment [facility] [address] [phone] Jhonathan Fisher MD LAB - URINALYSIS OR [...] 1:09 PM CDT Narrative Resulting Agency Comment [facility] [address] [facility] [phone] Jhonathan Fisher MD LAB - CHEMISTRY ORD ERABLES [facility] INSURANCE BILL * URINALYSIS ROUTINE AUTO (08/28/2013 8:48 AM CDT) Only the most recent of6 resultswithin the time period is included. Pathologist [facility] Specific Barre UA 1.016 1.005 - 1.030 [facility] INSURANCE [...] 1:09 PM CDT Narrative Resulting Agency Comment [facility] [address] [facility] [phone] Jhonathan Fisher MD LAB - URINALYSIS OR DERABLES [facility] INSURANCE BILL * VITAMIN [...] 1:09 PM CDT Narrative Resulting Agency Comment [address] [phone] Jhonathan Fisher MD LAB - CHEMISTRY ORD ERABLES [facility] INSURANCE BILL * CARDIAC PROCEDURE ORDER (05/23/2011) María Ellis MD CARDIAC SERVICES ORD ERABLES * URINALYSIS MICROSCOPIC ONLY (03/25/2011 8:32 AM DIGITAL MEDIA BUYER) Only the most recent of3 resultswithin the [...] test is not needed 03/25/2011 8:32 AM DIGITAL MEDIA BUYER 03/25/2011 1:22 PM DIGITAL MEDIA BUYER Narrative Resulting Agency Comment [facility] [place] [address] [facility] [phone] Jhonathan Fisher MD LAB - URINALYSIS OR DERABLES Performing Organization Address City/[facility] Co de Phone Number [facility] INSURANCE BILL * C-REACTIVE PROTEIN SENSITIVE (05/11/2010 10:36 AM DIGITAL MEDIA BUYER) C-Reactive Protein High Sensitivity 0.85 0.00 - 3.00 mg/L [facility] INSURANCE BILL Comment: Relative Risk for Future Cardiovascular Event Low <1.00 Average 1.00 - 3.00 High >3.00 BLOOD SPECIMEN / Unknown 05/11/2010 10:36 AM DIGITAL MEDIA BUYER 05/11/2010 9:32 PM DIGITAL MEDIA BUYER Narrative Resulting Agency Comment [facility] [address] [facility] [phone] Jhonathan Fisher MD LAB - CHEMISTRY ORD ERABLES Performing Organization Address [facility] de Phone Number [facility] INSURANCE BILL * APOLIPOPROTEIN B (05/11/2010 10:36 AM DIGITAL MEDIA BUYER) Pathologist [facility] Apolipoprotein B 98 50 - 130 mg/dL [facility] INSURANCE BILL BLOOD SPECIMEN / Unknown 05/11/2010 10:36 AM DIGITAL MEDIA BUYER 05/11/2010 9:32 PM DIGITAL MEDIA BUYER Narrative Resulting Agency Comment [address] [phone] Jhonathan Fisher MD LAB - CHEMISTRY ORD ERABLES Performing Organization Address [facility] Co de Phone Number [facility] INSURANCE BILL [...] by Nia Guillermo [JEANNINE] on 01/12/09 at 1:50 PM (File: [id number]) A scan was deleted from the Results section by Nia Guillermo [JEANNINE] on 01/12/09 at 1:52 PM (File: [id number]) Jhonathan Fisher MD MAMMO ORDERABLES * CBC W AUTO DIFFERENTIAL W PLATELETS (05/24/2008 8:07 AM CDT) Pathologist [facility] White Blood Cell Count 5.8 3.8 - [...] [place] L [facility] Comment: Test Performed at: [facility] [id number] CECELIA ENRIQUEZ MD 05/24/2008 8:07 AM CDT 05/25/2008 1:24 AM CDT Jhonathan Fisher MD LAB - HEMATOLOGY OR DERABLES Performing Organization Address [facility] Co de Phone Number [facility] [address] [place] [address] * GGT (05/24/2008 8:07 AM CDT) [facility] GGT 38 3 - 65 U/L [facility] Comment: Test Performed at: [facility] [id number] CECELIA ENRIQUEZ MD 05/24/2008 8:07 AM CDT 05/25/2008 1:24 AM CDT Jhonathan Fisher MD LAB - CHEMISTRY ORD ERABLES Performing Organization Address [facility] Co de Phone Number [facility] [address] [place] [address] * FINE NEEDLE ASPIRATION (04/29/2001 12:00 PM DIGITAL MEDIA BUYER) [facility] Result CASE NUMBER [id number] Comment: ORDERING PHYSICIAN EMMANUEL MENARD SPECIMEN TYPE Breast-rt side Date 04/29/2001 Physician Mathew Specimen Adequacy Unsatisfactory for Evaluation Cell Pathology Mature adipose cells present. *Comment 33 cc. of slightly hazy, colorless fluid received. 1 thin prep made. 7 slides received. *Diagnosis No breast tissue present. Mature adipose tissue present. Snomed. 04/30/2001 1610 <1> Pathologist Coy Rios M.D. CPT code 70004 MISCELLANEOUS SAMPLES / Unknown 04/29/2001 12:00 PM DIGITAL MEDIA BUYER 04/30/2001 7:43 AM DIGITAL MEDIA BUYER Historical Provider MD LAB - PATHOLOGY/C YTOLOGY ORDERABLES Care Teams Valuation Manager Relationship Specialty Start Date End Date Tamia Brooks MD [address] [place] [address] PCP - General Internal Medicine 07/26/16 Tamia Brooks MD [address] [place] [address] PCP - Attributed-MSSP 05/08/22 Yohan Barros, DPM [address] [phone] Podiatry 05/24/13
--- OUTSIDE RECORDS SUMMARY | 2024-04-16 11:22 | XMS_ITS | Encounter Summary ---
Author Organization [facility] Address 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
--- OUTSIDE RECORDS SUMMARY | 2024-04-16 11:22 | XMS_ITS | Clinical Summary ---
Author Organization [facility] Address [address] [place] [address] Care Team Providers Care Webmethods Consultant Name Role Phone Yohan Barros DPM Unavailable [phone] Tamia Brooks MD Primary Care Provider [phone] Tamia Brooks MD Unavailable [phone] Source Comments [facility],non-owned Affiliates and Associated Physician Practices is amultiple site organization consisting of ambulatory clinics and hospital sitesin [place], [place], [place] and [place]. This disclosure is being madepursuant to the Care Everywhere program and may not contain all information available regarding this patient. 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, without long-term current use of insulin (HCC) Use 1 (one) strip as directed 100 strip 3 Active rosuvastatin (Crestor) 10 MG tabletIndications: Mixed hyperlipidemia TAKE 1 TABLET DAILY 90 tablet 3 4 Active metoclopramide (Reglan) 10 MG tabletIndications: Gastroesophageal reflux disease, unspecified whether esophagitis present Take 1 (one) tablet by mouth 3 times daily before meals 90 tablet 4 4 Active sucralfate (Carafate) 1 GM tabletIndications: Gastroesophageal reflux disease, unspecified whether esophagitis present Take 1 (one) tablet by mouth 4 times daily as needed 45 tablet 2 4 Active methylPREDNISolone (Medrol Dosepak) 4 MG tablet Take by mouth as directed Take as directed by mouth per package instructions. 21 tablet 4 Active lansoprazole (Prevacid) 15 MG capsuleIndications :Gastroesophageal reflux disease, unspecified whether esophagitis present TAKE 1 TO 2 CAPSULES ONCE DAILY TO IMPROVE HEARTBURN SYMPTOMS FOR GASTROESOPHAGEAL REFLUX DISEASE 180 capsule 3 4 Active lisinopril (Prinivil; Zestril) 40 MG tabletIndications: Benign essential hypertension,Stage 3b chronic kidney disease (HCC) Take 1 (one) tablet by mouth once daily 90 tablet 1 5 Active lisinopril (Prinivil; Zestril) 40 MG tabletIndications: Benign essential hypertension,Stage 3b chronic kidney disease (HCC) TAKE 1 TABLET DAILY 90 tablet 1 4 04/13/19 25 Discontin ued(Reord er) Active Problems Problem Noted Date Diagnosed Date [...] >59 mL/min/1.73 40 (L) 47 (L) GFR 7, 3-18 Situational mixed anxiety and depressive disorde r [...] Encounters Date Type Department Care Team Description 04/16/2024 Telephone [facility] - Internal Medicine [address] [place] [phone] Tamia Brooks MD Hypertension 04/13/2024 Refill [facility] Internal Medicine [address] [place] [phone] Tamia Brooks MD MEDICATION REFILL 03/30/2024 Telephone [facility] Internal Medicine [address] [place] [phone] Tamia Brooks MD Question 03/24/2024 Telephone [facility] Internal Medicine [address] [place] [phone] Tamia Brooks MD Question 03/05/2024 Patient Outreach [facility] - Care Coordination [facility] [address] [place] [address] Lelo Pichardo Outreach Preventive Care 02/04/2024 Refill [facility] Internal Medicine [address] [place] [address] [address] [place] [address] Tamia Brooks MD Refill Request 01/19/2024 Telephone [facility] Internal Medicine [address] [place] [phone] Tamia Brooks MD Pain Knee from Last 3 Months Immunizations Name Administration [...] CDT Respiratory Rate 16 04/23/2018 1:13 PM PLASTIC PRODUCTION MACHINE SETTER Oxygen Saturation 95% 11/18/2023 1:19 PM CDT Inhaled Oxygen Concentration - - Weight 89.2 kg (196 lb 9.6 oz) 11/18/2023 1:19 P M CDT Height 165.1 cm (5' 5 ) 11/18/2023 1:19 PM CDT Body Mass Index 32.72 11/18/2023 1:19 PM CDT Plan of Treatment Upcoming Encounters Date Type Department Care Team (Late st Contact Info) Description 06/29/2024 10:00 AM CDT Office Visit [facility] Medical [facility] - Internal Medicine [address] [facility] [address] [place] [address] Tamia Brooks MD [address] [facility] [address] [place] [address] Health Maintenance Due Date Last Done Comments DTAP/TDAP/TD VACCINES (1 - Tdap) 1967 ZOSTER VACCINE (1 of 2) 1998 BONE DENSITY TESTING 03/17/2021 03/17/2019, 09/27/2016, 08/17/2014 DIABETES-FOOT EXAM WITH MONOFILAMENT 02/16/2022 02/16/2021, 01/11/2020, 01/06/2019 DEPRESSION SCREENING 03/10/2024 06/18/2023, 09/11/2022, 08/20/2022, Additional history exists DIABETES - URINE PROTEIN SCREENING 03/10/2024 09/23/2023, 02/11/2020 DIABETES-HGB A1C 05/17/2024 11/18/2023, 12/2023, 09/11/2022, Additional history exists MEDICARE AWV 12 MONTHS 06/17/2024 06/18/2023, 02/20/2022, 02/16/2021, Additional history exists DIABETES-SERUM CREATININE 09/22/20242023, 01/12/2021, 02/11/2020, Additional history exists DIABETES RETINOPATHY SCREENING 10/14/2025 10/15/2023, 06/18/2022, 12/07/2018 PNEUMOCOCCAL VACCINE 50+ Completed 017, 07/10/2015, 01/08/2010 [...] without long-term current use of insulin (HCC) DEXA BONE DENSITY AXIAL SKELETON Routine 03/17/2019 10:46 AM PLASTIC PRODUCTION MACHINE SETTER Asymptomatic menopausal state Osteopenia, unspecified location HEPATITIS [...] [facility] Lot # [id number] [facility] QC Verified Yes Yes [facility] Blood BLOOD SPECIMEN / Unknown 11/18/2023 1:25 PM CDT Tamia Brooks MD LAB - POINT OF CARE ORDERABLES [facility] [address] [facility], [address] [phone] * EYE EXAM (10/15/2023) Anatomical Region Laterality [...] Resulting Agency Comment Lab Testing performed at: [facility] [address] [facility] [phone] Tamia Brooks MD LAB - URINE CHEMISTR Y ORDERABLES [facility] INSURANCE BILL [address] [place] [address] * (ABNORMAL) COMPREHENSIVE METABOLIC PANEL (09/23/2023 2:28 [...] Resulting Agency Comment Lab Testing performed at: [address] [phone] Tamia Brooks MD LAB - CHEMISTRY PREETI COSTA [facility] INSURANCE BILL [address] [place] [address] * DEXA BONE DENSITY AXIAL SKELETON (03/17/2019 10:46 AM PLASTIC PRODUCTION MACHINE SETTER) Anatomical Region Laterality Modality Nuclear Medicine 03/17/2019 10:5 0 AM PLASTIC PRODUCTION MACHINE SETTER Impressions 03/17/2019 10:53 AM PLASTIC PRODUCTION MACHINE SETTER Osteopenia of the hips. Normal bone mineral density of the lumbar spine. WOR[employer]IZATION DEFINITIONS NORMAL= T-Score at or above -1.0 SD OSTEOPENIA = T-Score between -1 and -2.5 SD OSTEOPOROSIS = T-Score at or below -2.5 SD Reading Radiologist: Kiki Mireles MD on 03/17/2019 at 10:53 AM Narrative 03/17/2019 10:53 AM PLASTIC PRODUCTION MACHINE SETTER BONE MINERAL DENSITY STUDY: INDICATION: 68-year-old for [...] with a HCV Nucleic Acid Amplification test ([id number]). FASTING Blood BLOOD SPECIMEN / Unknown 09/26/2016 8:02 AM CDT 09/26/2016 Narrative Resulting Agency Comment [facility] [address] [facility] [phone] Tamia Brooks MD LAB - CHEMISTRY PREETI COSTA [facility] INSURANCE BILL [address] [place] [address] from Last 3 Months or Most Recently Relevant to Health Maintenance Care Teams Webmethods Consultant Relationship Specialty Start Date End Date Tamia Brooks MD [address] [facility] [address] [place] [phone] PCP - General Internal Medicine 07/26/16 Tamia Brooks MD [address] [facility] [address] [place] [address] PCP - Attributed-MSSP 05/08/22 Yohan Barros, DPM [address] [facility] [address] [place] [phone] Podiatry 05/24/13
--- OUTSIDE RECORDS SUMMARY | 2024-04-16 11:22 | XMS_ITS | Encounter Summary ---
Author Organization [facility] Address [address] [place] [address] Care Team Providers Care Test Desk Trouble Locator Name Role Phone Yohan Barros DPM Unavailable [phone] Tamia Brooks MD Primary Care Provider [phone] Tamia Brooks MD Unavailable [phone] Reason for Visit * Reason Onset Date Comments Question 03/30/2024 Encounter Details Date Type Department Care Team (Late st Contact Info) Description 03/30/2024 Telephone [facility] Medical [facility] - Internal Medicine [address] [phone] Tamia Brooks MD [address] [place] [phone] Question Social History Tobacco Use Types [...] * Telephone Encounter - Audra Bernal - 03/30/2024 2:51 PM CST Pt had called on 03/24/24 (see encounter). Calling again today to report she continues to get calls from someone identifying themselves as Dr Brooks and from [facility]. Pt has tried blocking phone number butstates they have called on at least 30 different numbers. Pt is asking if there is anything that can be done or who she can report this to in order to stop these calls. REPAIRER HELPER * Telephone Encounter - Brenda Zambrano - 03/30/2024 2:18 PM CST Who is calling? Self What is the reason for call? Patient is wanting to speak with her PCP or Irma in the office regarding a call she is receiving from someone regarding her medical records. Patient has been trying to get a hold of the office and failed due to long wait times and no answer. Requesting call back. Expected Response from the Clinic? ( ex. Call back, etc..) Please advise Did you notify caller it would take 24-48 hours for the office to get back to them? NO REPAIRER HELPER documented in this encounter Plan of Treatment Upcoming Encounters Date Type Department Care Team (Late st Contact Info) Description 06/29/2024 10:00 AM CDT Office Visit [facility] - Internal Medicine [address] [place] [phone] Tamia Brooks MD [address] [place] [phone] documented as of this encounter Goals Goal Patient Goal Type Associated Problems Recent Progress Patient-Stated? Author Blood Pressure < 140/90 Blood Pressure 130/70( 024 1:19 PM CDT) No Lola Neff MA documented as of this encounter Visit Diagnoses Not on filedocumented in this encounter Care Teams Test Desk Trouble Locator Relationship Specialty Start Date End Date Tamia Brooks MD [address] [place] [phone] PCP - General Internal Medicine 07/26/16 Tamia Brooks MD [address] [facility] [address] [place] [phone] PCP - Attributed-MSSP 05/08/22 Yohan Barros DPM [address] [facility] [address] [place] [address] Podiatry 05/24/13 documented as of this encounter
--- OUTSIDE RECORDS SUMMARY | 2024-04-16 11:22 | XMS_ITS | Encounter Summary ---
Author Organization [facility] Address [address] 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
--- OUTSIDE RECORDS SUMMARY | 2024-04-16 11:22 | XMS_ITS | Clinical Summary ---
Author Organization [facility] Address [address] [place] [address] Phone Care Team Providers Care Ice Cream Mixer Name Role Phone Tamia Brooks MD Primary Care Provider [phone] Allergies Active Allergy Reactions Criticality Noted Date [...] 72 01/09/2022 11:38 AM CDT Temperature 35.7 C (96.2 F) 01/09/2022 11:38 AM CDT Respiratory Rate - - Oxygen Saturation - - Inhaled Oxygen Concentration - - Weight 91.6 kg (202 lb) 01/09/2022 11:38 AM CDT Height 167.6 cm (5' 6 ) 01/09/2022 11:38 AM CDT Body Mass Index 32.6 01/09/2022 11:38 AM CDT Plan of Treatment Health Maintenance Due Date Last Done Comments Diabetic Foot Exam 1960 Ophthalmology Exam 1960 COVID-19 Vaccine (2022- 4 season) 2023 01/18/2021, 05/29/2020, 05/01/2020 Influenza Vaccine (#1) 2023 2, 01/18/2021, 12/30/2019, Additional history exists Pneumococcal PPSV23/PCV13 65 + Years / High and Highest Risk Completed 09/16/2016, 07/10/2015, 01/08/2010 Care Teams Ice Cream Mixer Relationship Specialty Start Date End Date Tamia Brooks MD [address] [address] PCP - General Internal Medicine 11/11/18
--- OUTSIDE RECORDS SUMMARY | 2024-04-16 11:22 | XMS_ITS | Encounter Summary ---
Author Organization [facility] Address [address] [facility] [place] [address] Care Team Providers Care Public Information Specialist Name Role Phone Yohan Barros DPM Unavailable [phone] Tamia Brooks MD Primary Care Provider [phone] Tamia Brooks MD Unavailable [phone] Reason for Visit * Reason Onset Date Comments Hypertension 04/16/2024 Encounter Details Date Type Department Care Team (Late st Contact Info) Description 04/16/[address] [facility] - Internal Medicine [address] [address] Tamia Brooks MD [address] [place] [phone] Hypertension Social History Tobacco Use Types Packs/Day [...] Telephone Encounter - Ayah Sharpe RN - 04/16/2024 10:02 AM LIBRARY MEDIA ASSISTANT Pt calling with concerns of elevated BP She states Friday her BP was very high at PT - PT for meniscus tear Pt went to UC, and was advised to go to ER Pt waited in ER for 6 hours, never saw doctor, no workup completed-- pt left without being seen Pt's BP is currently 189/122 - rechecked on this phone call, 178/104 - pt using automatic arm cuff Pt currently has CAMPUZANO and blurry vision Denies SOB, CP, palpitations, numbness or tingling Pt takes prescribed Lisinopril every night at bedtime, and checks BP first thing in AM Her BP yesterday was 170/105, the day prior it was 176/103. I did advise pt since she is symptomatic and BP remains elevated, to please return to ER for evaluation and treatment. She verbalized understanding, will go to [facility] Please review and advise, thank you Ayah Sharpe RN ARY MEDIA ASSISTANT documented in this encounter Plan of Treatment Upcoming Encounters Date Type Department Care Team (Late st Contact Info) Description 06/29/2024 10:00 AM CDT Office Visit [facility] - Internal Medicine [address] [place] [phone] Tamia Brooks MD [address] [place] [phone] documented as of this encounter Goals Goal Patient Goal Type Associated Problems Recent Progress Patient-Stated? Author Blood Pressure < 140/90 Blood Pressure 130/70( 024 1:19 PM CDT) No Lola Neff MA documented as of this encounter Visit Diagnoses Not on filedocumented in this encounter Care Teams Public Information Specialist Relationship Specialty Start Date End Date Tamia Brooks MD [address] [place] [phone] PCP - General Internal Medicine 07/26/16 Tamia Brooks MD [facility] [facility] [address] [place] [address] PCP - Attributed-MSSP 05/08/22 Yohan Barros, ZOYA [address] [place] [address] Podiatry 05/24/13 documented as of this encounter
--- OUTSIDE RECORDS SUMMARY | 2024-04-16 11:22 | XMS_ITS | Referral Summary ---
Author Organization [facility] Address [address] [facility] [place] [address] Care Team Providers Care Pelletizer Operator Name Role Phone Yohan Barros DPM Unavailable [phone] Tamia Brooks MD Primary Care Provider [phone] Tamia Brooks MD Unavailable [phone] Source Comments [facility],non-owned Affiliates and Associated Physician Practices is amultiple site organization consisting of ambulatory clinics and hospital sitesin [place], [place], [place] and [place]. This disclosure is being madepursuant to the Care Everywhere program and may not contain all information available regarding this patient. Last updated 17.[facility] Encounters Date Type Department Care Team Description 04/16/2024 Telephone [facility] Internal Medicine [address] [place] [phone] Tamia Brooks MD Hypertension 04/13/2024 Refill [facility] Internal Medicine [address] [place] [phone] Tamia Brooks MD MEDICATION REFILL 03/30/2024 Telephone [facility] Internal Medicine [address] [place] [phone] Tamia Brooks MD Question 03/24/2024 Telephone [facility] Internal Medicine [address] [place] [phone] Tamia Brooks MD Question 03/05/2024 Patient Outreach [facility] - Care Coordination [address] [address] Lelo Pichardo Outreach Preventive Care 02/04/2024 Refill [facility] Internal Medicine [address] [place] [address] [address] [place] [address] Tamia Brooks MD Refill Request 01/19/2024 Telephone [facility] Internal Medicine [address] [place] [address] [address] [place] [address] Tamia Brooks MD Pain Knee from Last 3 Months Allergies Active Allergy [...] CDT Respiratory Rate 16 04/23/2018 1:13 PM PATTERN DATA OPERATOR Oxygen Saturation 95% 11/18/2023 1:19 PM CDT Inhaled Oxygen Concentration - - Weight 89.2 kg (196 lb 9.6 oz) 11/18/2023 1:19 P M CDT Height 165.1 cm (5' 5 ) 11/18/2023 1:19 PM CDT Body Mass Index 32.72 11/18/2023 1:19 PM CDT Plan of Treatment Upcoming Encounters Date Type Department Care Team (Late st Contact Info) Description 06/29/2024 10:00 AM CDT Office Visit [facility] Medical [facility] - Internal Medicine [address] [place] [phone] Tamia Brooks MD [address] [facility] [address] [place] [address] Goals Goal Patient Goal Type Associated [...] DENSITY AXIAL SKELETON Routine 03/17/2019 10:46 AM PATTERN DATA OPERATOR Asymptomatic menopausal state Osteopenia, unspecified location HEPATITIS [...] [facility] Lot # [id number] [facility] QC Verified Yes Yes [facility] Blood BLOOD SPECIMEN / Unknown 11/18/2023 1:25 PM CDT Tamia Brooks MD LAB - POINT OF CARE [facility]AB[facility] [address] [place], [address] [phone] * EYE EXAM (10/15/2023) Anatomical Region Laterality [...] Resulting Agency Comment Lab Testing performed at: [facility] [address] [facility] [phone] Tamia Brooks MD LAB - URINE CHEMISTR Y ORDERABLES [facility] INSURANCE BILL [address] [place] [address] * (ABNORMAL) COMPREHENSIVE METABOLIC PANEL (09/23/2023 2:28 [...] Resulting Agency Comment Lab Testing performed at: [address] [phone] Tamia Brooks MD LAB - CHEMISTRY PREETI [facility] Organization Address City/State/[facility] Co de Phone Number [facility] INSURANCE BILL [address] [place] [address] * DEXA BONE DENSITY AXIAL SKELETON (03/17/2019 10:46 AM PATTERN DATA OPERATOR) Anatomical Region Laterality Modality Nuclear Medicine 03/17/2019 10:5 0 AM PATTERN DATA OPERATOR Impressions 03/17/2019 10:53 AM PATTERN DATA OPERATOR Osteopenia of the hips. Normal bone mineral density of the lumbar spine. [employer] DEFINITIONS NORMAL= T-Score at or above -1.0 SD OSTEOPENIA = T-Score between -1 and -2.5 SD OSTEOPOROSIS = T-Score at or below -2.5 SD Reading Radiologist: Kiki Mireles MD on 03/17/2019 at 10:53 AM Narrative 03/17/2019 10:53 AM PATTERN DATA OPERATOR BONE MINERAL DENSITY STUDY: INDICATION: 68-year-old for [...] with a HCV Nucleic Acid Amplification test ([id number]). FASTING Blood BLOOD SPECIMEN / Unknown 09/26/2016 8:02 AM CDT 09/26/2016 Narrative Resulting Agency Comment [facility] [address] [facility] [phone] Tamia Brooks MD LAB - CHEMISTRY PREETI COSTA [facility] Organization Address City/State/ZIP Co de Phone Number [facility] INSURANCE BILL [address] [place] [address] from Last 3 Months or Most Recently Relevant to Health Maintenance Care Teams Pelletizer Operator Relationship Specialty Start Date End Date Tamia Brooks MD [address] [place] [address] PCP - General Internal Medicine 07/26/16 Tamia Brooks MD [address] [place] [address] PCP - Attributed-MSSP 05/08/22 Yohan Barros, DPM [address] [address] [place] [address] Podiatry 05/24/13
--- OUTSIDE RECORDS SUMMARY | 2024-04-16 11:23 | XMS_ITS | Clinical Summary ---
Author Organization [facility] Address [address] [place] [address] Phone Care Team Providers Care Hoop Riveting Machine Operator Name Role Phone Jhonathan Fisher MD Primary Care Provider Opal ramírez Social History Tobacco Use Types Packs/Day Years Used Date Smoking Tobacco: Never Assessed Comments Unknown Sex and Gender Information Value Date Recorded Sex Assigned at Not on file Legal Sex Female 3:08 AM HOSPICE COORDINATOR Gender Identity Not on file Sexual Orientation Not on file Plan of Treatment Health Maintenance Due Date Last Done Comments DTAP/TDAP/TD VACCINES (1 - Tdap) 1967 PNEUMOCOCCAL VACCINE 65+ YEARS (1 of 1 - PCV) 04/10/18 99 ZOSTER VACCINE (1 of 2) 1998 OSTEOPOROSIS SCREENING 2013 RSV VACCINE (60+ or ) (1 - 1-dose 75+ series) 2023 INFLUENZA VACCINE (#1) 2023 Insurance [facility] OPEN ACCESS HMO Care Teams Hoop Riveting Machine Operator Relationship Specialty Start Date End Date Jhonathan Fisher MD PCP - General 02/24/15
--- OUTSIDE RECORDS SUMMARY | 2024-04-16 11:23 | XMS_ITS | Continuity of Care Document ---
Author Organization [facility] Address [address] [address] Phone Care Team Providers Care Nitric Acid Concentrator Operator Name Role Phone Daniel PONCE, Jose Unavailable [...] - Active Procedures Procedure Date OFFICE/OUTPATIENT VISIT [facility] OFFICE/OUTPATIENT VISIT [facility] Advance Directives Directive Yes / No Effective Date File Name No Information Encounters Encounter Description Practice Location Reason(s) For Visit Diagnoses Date Provider Providers Copied on Encounter OFFICE/OUTPA TIENT VISIT EST [facility], [address], [address], [place] tel:[phone] [facility] Ruptured Bakers cystGastrocnemi us strain, right, subsequent encounter Sep-1 6 Sucher Jose. [address] [address], [place], [address]. tel: [phone] [facility], [address] [place] [address], [place], [facility], [place] tel:[phone] [facility] Pain of right lower extremity Sep-0 6 Sucher Jose. [address] [address], [place], [address]. tel: [phone] OFFICE/OUTPA TIENT VISIT [facility], [address], [place], [address], [place] tel:[phone] [facility] Pain of right lower extremity 6 Sucher Jose. [address] [facility] [address], [place], [address]. tel: [phone] Family History Family Member Type Diagnosis Age At Onset Sister Problem (finding) Alive and well Payers Payer name Insurance type Covered alliance party ID Authorsylvestera tion(s) Medicare E2 OT [id number] For Life OT [id number] Social History Type Description Quantity Date Captured [...]
--- OUTSIDE RECORDS SUMMARY | 2024-04-16 11:23 | XMS_ITS | Encounter Summary ---
Author Organization [facility] Address [address] [place] [address] Care Team Providers Care Photograph Finisher Name Role Phone Jhonathan Fisher MD Primary [...] on file Legal Sex Female 3:08 AM INSOLE BOTTOM FILLER Gender Identity Not on file Sexual Orientation Not on file documented as of this encounter Plan of Treatment Not on file documented as of this encounter Visit Diagnoses Diagnosis Other screening mammogram- Primary documented in this encounter Care Teams Photograph Finisher Relationship Specialty Start Date End Date Jhonathan Fisher MD PCP - General 02/24/15 documented as of this encounter
--- OUTSIDE RECORDS SUMMARY | 2024-04-16 11:23 | XMS_ITS | Encounter Summary ---
Author Organization [facility] Address [address] [place] [address] Care Team Providers Care Contact Center Assistant Name Role Phone Jhonathan Fisher MD Primary [...] on file Legal Sex Female 3:08 AM FIRE EXTINGUISHER INSPECTOR Gender Identity Not on file Sexual Orientation Not on file documented as of this encounter Plan of Treatment Not on file documented as of this encounter Visit Diagnoses Diagnosis Other screening mammogram- Primary documented in this encounter Care Teams Contact Center Assistant Relationship Specialty Start Date End Date Jhonathan Fisher MD PCP - General 02/24/15 documented as of this encounter
--- OUTSIDE RECORDS SUMMARY | 2024-04-16 11:23 | XMS_ITS | Encounter Summary ---
Author Organization [facility] Address [address] [place] [address] Care Team Providers Care Telepathist Name Role Phone Jhonathan Fisher MD Primary Care Provider Opal ramírez Encounter Details Date Type Department Care Team (Late st Contact Info) Description 12/16/2003 Outpatient Historical HIS [facility] Alex Kay MD [address] [facility] [address] [place] [address] SCREENING MAMM-MAILG NEOPL-OTHER (Primary Dx) Social History Tobacco Use Types Packs/Day Years Used Date Smoking Tobacco: Never Assessed Comments Unknown Sex and Gender Information Value Date Recorded Sex Assigned at Not on file Legal Sex Female 3:08 AM EDUCATIONAL AIDE Gender Identity Not on file Sexual Orientation Not on file documented as of this encounter Plan of Treatment Not on file documented as of this encounter Visit Diagnoses Diagnosis Other screening mammogram- Primary documented in this encounter Care Teams Telepathist Relationship Specialty Start Date End Date Jhonathan Fisher MD PCP - General 02/24/15 documented as of this encounter
--- OUTSIDE RECORDS SUMMARY | 2024-04-16 11:23 | XMS_ITS | Encounter Summary ---
Author Organization [facility] Address [address] [place] [address] Care Team Providers Care Subway Operator Name Role Phone Jhonathan Fisher MD Primary Care Provider Opal ramírez Encounter Details Date Type Department Care Team (Late st Contact Info) Description 12/23/2005 Outpatient Historical HIS MAMM VAN Raz Banuelos MD [address] [place] [address] Other Screening Mammogram (Primary Dx) Social History Tobacco Use Types Packs/Day Years Used Date Smoking Tobacco: Never Assessed Comments Unknown Sex and Gender Information Value Date Recorded Sex Assigned at Not on file Legal Sex Female 3:08 AM CONFIGURATION DEVELOPER Gender Identity Not on file Sexual Orientation Not on file documented as of this encounter Plan of Treatment Not on file documented as of this encounter Visit Diagnoses Diagnosis Other screening mammogram- Primary documented in this encounter Care Teams Subway Operator Relationship Specialty Start Date End Date Jhonathan Fisher MD PCP - General 02/24/15 documented as of this encounter
--- OUTSIDE RECORDS SUMMARY | 2024-04-16 11:23 | XMS_ITS | Encounter Summary ---
Author Organization [facility] Address [address] [place] [address] Care Team Providers Care Business Support Manager Name Role Phone Jhonathan Fisher MD Primary Care Provider Opal ramírez Encounter Details Date Type Department Care Team (Latest Contact Info) Description 12/24/2000 Outpatient Historical HIS [facility] Jhonathan Nunez MD Other screening mammogram (Primary Dx) Social History Tobacco Use Types Packs/Day Years Used Date Smoking Tobacco: Never Assessed Comments Unknown Sex and Gender Information Value Date Recorded Sex Assigned at Not on file Legal Sex Female 3:08 AM MEAT TRIMMER Gender Identity Not on file Sexual Orientation Not on file documented as of this encounter Plan of Treatment Not on file documented as of this encounter Visit Diagnoses Diagnosis Other screening mammogram- Primary documented in this encounter Care Teams Business Support Manager Relationship Specialty Start Date End Date Jhonathan Fisher MD PCP - General 02/24/15 documented as of this encounter
--- OUTSIDE RECORDS SUMMARY | 2024-04-16 11:23 | XMS_ITS | Encounter Summary ---
Author Organization [facility] Address [address] [place] [address] Care Team Providers Care President Ceo & Founder Name Role Phone Jhonathan Fisher MD Primary [...] on file Legal Sex Female 3:08 AM MEDIA MARKETING SPECIALIST Gender Identity Not on file Sexual Orientation Not on file documented as of this encounter Plan of Treatment Not on file documented as of this encounter Visit Diagnoses Diagnosis Other screening mammogram- Primary documented in this encounter Care Teams President Ceo & Founder Relationship Specialty Start Date End Date Jhonathan Fisher MD PCP - General 02/24/15 documented as of this encounter
--- OUTSIDE RECORDS SUMMARY | 2024-04-16 11:23 | XMS_ITS | Clinical Summary ---
Author Organization [facility] Address [address] [place] [address] Care Team Providers Care Rotary Soil Stabilizer Name Role Phone Unavailable Primary Care Provider [...] season) 2023 Influenza Adult (#1) 2023 Meningococcal B Vaccine Aged Out No l onger eligible based on patient's age to complete this topic Meningococcal Vaccine Aged Out No delta haley eligible based on patient's age to complete this topic RSV Immunizations Under 20 Months Aged Out No longer eligible based on patient's age to complete this topic
--- OUTSIDE RECORDS SUMMARY | 2024-04-16 11:23 | XMS_ITS | Encounter Summary ---
Author Organization [facility] Address [address] [place] [address] Care Team Providers Care Professor In Family Studies Name Role Phone Jhonathan Fisher MD Primary Care Provider Opal ramírez Encounter Details Date Type Department Care Team (Late st Contact Info) Description 01/02/2004 Outpatient Historical HIS [facility] Alex Salmon MD [address] [facility] [address] [place] [address] SCREENING MAMM-MALIG NEOPL-HI RISK (Primary Dx) Social History Tobacco Use Types Packs/Day Years Used Date Smoking Tobacco: Never Assessed Comments Unknown Sex and Gender Information Value Date Recorded Sex Assigned at Not on file Legal Sex Female 3:08 AM SPECIAL EFFECTS ARTIST Gender Identity Not on file Sexual Orientation Not on file documented as of this encounter Plan of Treatment Not on file documented as of this encounter Visit Diagnoses Diagnosis Screening mammogram for high-risk patient- Primary documented in this encounter Care Teams Professor In Family Studies Relationship Specialty Start Date End Date Jhoanthan Fisher MD PCP - General 02/24/15 documented as of this encounter
--- NOTE | 2024-04-16 11:33 | ECG_ITS ---
Test Date: 2024-04-16 11:40:20 Measurements Intervals Kimberly Rate: 88 P: 46 NE: 162 QRS: -7 QRSD: 73 T: 107 QT: 345 QTc: 418 Interpretive Statements SINUS RHYTHM POSSIBLE LEFT ATRIAL ENLARGEMENT CONSIDER ANTERIOR INFARCT, AGE INDETERMINATE INFERIOR INFARCT, AGE INDETERMINATE ST-T WAVE ABNORMALITY IN HIGH LATERAL LEADS- CONSIDER ISCHEMIA ABNORMAL ECG No previous ECG available for comparison Electronically Signed On 04-16-2024 12:49:13 AFTER SCHOOL COORDINATOR by Gabriel Galeano D.O.
--- OUTSIDE RECORDS SUMMARY | 2024-04-16 15:31 | XMS_ITS | Encounter Summary ---
Author Organization [facility] Address [address] [place] [address] Care Team Providers Care Bill Sorter Name Role Phone Jhonathan Fisher MD Primary Care Provider Opal ramírez Encounter Details Date Type Department Care Team (Latest Contact Info) Description 12/25/1999 Outpatient Historical HIS [facility] Jhonathan Nunez MD Other screening mammogram (Primary Dx) Social History Tobacco Use Types Packs/Day Years Used Date Smoking Tobacco: Never Assessed Comments Unknown Sex and Gender Information Value Date Recorded Sex Assigned at Not on file Legal Sex Female 3:08 AM EYE SPECIALIST Gender Identity Not on file Sexual Orientation Not on file documented as of this encounter Plan of Treatment Not on file documented as of this encounter Visit Diagnoses Diagnosis Other screening mammogram- Primary documented in this encounter Care Teams Bill Sorter Relationship Specialty Start Date End Date Jhonathan Fisher MD PCP - General 02/24/15 documented as of this encounter
--- OUTSIDE RECORDS SUMMARY | 2024-04-16 15:31 | XMS_ITS | Encounter Summary ---
Author Organization [facility] Address [address] [place] [address] Care Team Providers Care Financial Analysis Consultant Name Role Phone Jhonathan Fisher MD Primary Care Provider Opal ramírez Encounter Details Date Type Department Care Team (Latest Contact Info) Description 12/24/2000 Outpatient Historical HIS [facility] Jhonathan Nunez MD Other screening mammogram (Primary Dx) Social History Tobacco Use Types Packs/Day Years Used Date Smoking Tobacco: Never Assessed Comments Unknown Sex and Gender Information Value Date Recorded Sex Assigned at Not on file Legal Sex Female 3:08 AM CARCASS TRIMMER Gender Identity Not on file Sexual Orientation Not on file documented as of this encounter Plan of Treatment Not on file documented as of this encounter Visit Diagnoses Diagnosis Other screening mammogram- Primary documented in this encounter Care Teams Financial Analysis Consultant Relationship Specialty Start Date End Date Jhonathan Fisher MD PCP - General 02/24/15 documented as of this encounter
--- OUTSIDE RECORDS SUMMARY | 2024-04-16 15:31 | XMS_ITS | Encounter Summary ---
Author Organization [employer] [facility] Address [address] [place] [address] Care Team Providers Care Meat Dresser Name Role Phone Jhonathan Fisher MD Primary [...] on file Legal Sex Female 3:08 AM [employer] SERVICE ATTENDANT Gender Identity Not on file Sexual Orientation Not on file documented as of this encounter Plan of Treatment Not on file documented as of this encounter Visit Diagnoses Diagnosis Other screening mammogram- Primary documented in this encounter Care Teams Meat Dresser Relationship Specialty Start Date End Date Jhonathan Fisher MD PCP - General 02/24/15 documented as of this encounter
--- OUTSIDE RECORDS SUMMARY | 2024-04-16 15:31 | XMS_ITS | Clinical Summary ---
Author Organization [facility] Address [address] [place] [id number] Phone Care Team Providers Care Research Nurse Name Role Phone Tamia Brooks MD Primary Care Provider [phone] Allergies Active Allergy Reactions Criticality Noted Date [...] Risk Completed 09/16/2016, 07/10/2015, 01/08/2010 Care Teams Research Nurse Relationship Specialty Start Date End Date Tamia Brooks MD [address] [id number] PCP - General Internal Medicine 11/11/18
--- OUTSIDE RECORDS SUMMARY | 2024-04-16 15:31 | XMS_ITS | Patient Health Summary ---
Author Organization [facility] Address [address] [place] [address] Care Team Providers Care Roving Frame Tender Name Role Phone Yohan Barros DPM Unavailable [phone] Tamia Brooks MD Primary Care Provider [phone] Tamia Brooks MD Unavailable [phone] Note from [facility],non-owned Affiliates and Associated Physician Practices is amultiple site organization consisting of ambulatory clinics and hospital sitesin [place], [place], [place] and [place]. This disclosure is being madepursuant to the Care Everywhere program and may not contain all information available regarding this patient. Last updated 17.[facility] Allergies * Darvon(Nausea and/or Vomiting,Dizziness) Medications * [...] mouth once daily 1 refill by 04/14/2025 * amLODIPine (Norvasc) 10 MG tablet(Started 04/16/2024) Take 1 (one) tablet by mouth once daily Reasons: High Blood Pressure 1 refill by 04/16/2025 Ended Medications* lisinopril (Prinivil; Zestril) 40 MG [...] CDT Respiratory Rate 16 04/23/2018 1:13 PM VEGETABLE WASHER Oxygen Saturation 95% 11/18/2023 1:19 PM CDT [...] disease, without long-term current use of insulin ([facility]) * EYE EXAM(Performed 10/15/2023) * FERRITIN(Performed 09/23/2023) Performed for PLMD (periodic limb movement disorder), Low ferritin level, Malaise and fatigue * VITAMIN D 25-HYDROXY(Performed 09/23/2023) Performed for Stage 3b chronic kidney disease ([facility]) * MICROALB/CREAT RATIO URINE RANDOM PANEL(Performed 09/23/2023) Performed for Hypertension, benign essential, Stage 3b chronic kidney disease ([facility]) * LIPID PROFILE REFLEX LDL DIRECT(Performed 09/23/2023) Performed for Type 2 diabetes mellitus with stage 3a chronic kidney disease, without long-term current use of insulin ([facility]) * COMPREHENSIVE METABOLIC PANEL(Performed 09/23/2023) Performed for Type 2 diabetes mellitus with stage 3a chronic kidney disease, without long-term current use of insulin ([facility]) * CBC W AUTO DIFFERENTIAL(Performed 09/23/2023) Performed for Type 2 diabetes mellitus with stage 3a chronic kidney disease, without long-term current use of insulin ([facility]) * ENDOSCOPY ORDER(Performed 09/18/2023) * COLONOSCOPY(Performed 09/18/2023) * MAMMO BILAT SCREENING W TEJ(Performed 06/23/2023) Performed for Screening mammogram, encounter for * HEMOGLOBIN A1C - POINT OF CARE (AMB)(Performed 06/18/2023) Performed for Type 2 diabetes mellitus with stage 3a chronic kidney disease, without long-term current use of insulin ([facility]) * HEMOGLOBIN A1C - POINT OF CARE [...] unspecified whether stage 3a or 3b CKD ([facility]) * MRI CERVICAL SPINE WO CONTRAST(Performed 10/04/2021) Performed for DDD (degenerative disc disease), cervical, Cervical radiculopathy * XR CERVICAL SPINE 2 OR 3VW(Performed 09/21/2021) Performed for Cervical radiculitis * XR CHEST 2VW(Performed 03/29/2021) Performed for Cough, SOB (shortness of breath) * CBC W AUTO DIFFERENTIAL(Performed 01/12/2021) Performed for Stage 3b chronic kidney disease ([facility]) * LIPID PROFILE(Performed 01/12/2021) Performed for Hyperlipidemia, unspecified hyperlipidemia type * BASIC METABOLIC PANEL (CALCIUM TOTAL)(Performed 01/12/2021) Performed for Stage 3b chronic kidney disease ([facility]) * HEMOGLOBIN A1C - POINT OF CARE (AMB)(Performed 08/30/2020) Performed for Type 2 diabetes mellitus with stage 3a chronic kidney disease, without long-term current use of insulin ([facility]) * MICROALB/CREAT RATIO URINE RANDOM PANEL(Performed 02/11/2020) Performed for Medicare annual wellness visit, subsequent, Type 2 diabetes mellitus with stage 3a chronic kidney disease, without long-term current use of insulin ([facility]) * LIPID PROFILE(Performed 02/11/2020) Performed for Medicare annual wellness visit, subsequent, Type 2 diabetes mellitus with stage 3a chronic kidney disease, without long-term current use of insulin ([facility]) * COMPREHENSIVE METABOLIC PANEL(Performed 02/11/2020) Performed for Medicare annual wellness visit, subsequent, Type 2 diabetes mellitus with stage 3a chronic kidney disease, without long-term current use of insulin ([facility]) * CBC W AUTO DIFFERENTIAL(Performed 02/11/2020) Performed for Medicare annual wellness visit, subsequent, Type 2 diabetes mellitus with stage 3a chronic kidney disease, without long-term current use of insulin ([facility]) * SARS-COV-2 (COVID-19) IN HOUSE(Performed 10/01/2019) Performed [...] kidney disease) stage 3, GFR 30-59 ml/min ([facility]) * VITAMIN D 25-HYDROXY(Performed 10/19/2018) Performed for CKD (chronic kidney disease) stage 3, GFR 30-59 ml/min ([facility]) * HEMOGLOBIN A1C(Performed 10/19/2018) Performed for Prediabetes [...] kidney disease) stage 3, GFR 30-59 ml/min ([facility]) * IMAGING/RADIOLOGY/XRAY RESULTS ORDER(Performed 06/24/2017) * ECHOCARDIOGRAM [...] kidney disease) stage 3, GFR 30-59 ml/min ([facility]) * PHOSPHORUS BLOOD(Performed 09/26/2016) Performed for CKD (chronic kidney disease) stage 3, GFR 30-59 ml/min ([facility]) * PTH INTACT(Performed 09/26/2016) Performed for CKD (chronic kidney disease) stage 3, GFR 30-59 ml/min (HCC) * VITAMIN D 25-HYDROXY(Performed 09/26/2016) Performed for Encounter for vitamin deficiency screening, CKD (chronic kidney disease) stage 3, EPW30-92 ml/min ([facility]) * HEPATITIS C ANTIBODY(Performed 09/26/2016) Performed for Need for hepatitis C screening test * CBC W AUTO DIFFERENTIAL(Performed 09/26/2016) Performed for CKD (chronic kidney disease) stage 3, GFR 30-59 ml/min ([facility]) * TSH HI LOW REFLEX FREE T4(Performed [...] included. Hemoglobin A1c POCT 6.4 % [facility] Expiration Date 07.10.[address] [facility] [address] [facility] Lot # [id number] [facility] QC Verified Yes Yes [facility] Blood BLOOD SPECIMEN / Unknown 11/18/2023 1:25 PM CDT Tamia Brooks MD LAB - POINT OF CARE ORDERABLES [facility] [address] [phone] * EYE EXAM (10/15/2023) Anatomical Region Laterality [...] Resulting Agency Comment Lab Testing performed at: [facility] [address] [facility] [phone] Tamia Brooks MD LAB - CHEMISTRY PREETI COSTA [facility] INSURANCE BILL [address] [place] [address] * MICROALB/CREAT RATIO URINE RANDOM PANEL (09/23/2023 [...] Resulting Agency Comment Lab Testing performed at: [address] [phone] Tamia Brooks MD LAB - URINE CHEMISTR Y ORDERABLES Performing Organization Address City/[facility] Co de Phone Number [facility] INSURANCE BILL [address] [place] [address] * VITAMIN D 25-HYDROXY (09/23/2023 2:28 PM CDT) Only the most recent of9 resultswithin the time period is included. [facility] Vitamin D, 25 Hydroxy 73.3 30 - 80 ng/mL [facility] INSURANCE BILL Comment: Vitamin D Status: Deficiency <20 ng/mL Insufficiency 20-30 ng/mL Sufficiency 30-100 ng/mL Toxicity >100 ng/mL Blood BLOOD SPECIMEN / Unknown 09/23/2023 2:28 PM CDT 09/23/2023 Narrative Resulting Agency Comment Lab Testing performed at: [address] [phone] Tamia Brooks MD LAB - CHEMISTRY ORDE RABLES Performing Organization Address City/[facility]/ZIP Co de Phone Number [facility] INSURANCE BILL [address] [place] [address] * (ABNORMAL) CBC WITH DIFFERENTIAL (09/23/2023 2:28 PM CDT) Only the most recent of12 resultswithin the time period is included. Pathologist [facility] WBC 9.1 4.0 - 10.7 x10E9/L [facility] [...] Resulting Agency Comment Lab Testing performed at: [facility] [address] [facility] [phone] Tamia Brooks MD LAB - HEMATOLOGY ORD ERABLES [facility] INSURANCE BILL [address] [place] [address] * (ABNORMAL) COMPREHENSIVE METABOLIC PANEL (09/23/2023 2:28 [...] Resulting Agency Comment Lab Testing performed at: [address] [phone] Tamia Brooks MD LAB - CHEMISTRY PREETI COSTA Performing Organization Address City/[facility] Co de Phone Number [facility] INSURANCE BILL [address] [place] [address] * FERRITIN (09/23/2023 2:28 PM CDT) Ferritin 80 5 - 204 ng/mL [facility] INSURANCE BILL Blood BLOOD SPECIMEN / Unknown 09/23/2023 2:28 PM CDT 09/23/2023 Narrative Resulting Agency Comment Lab Testing performed at: [address] [phone] Truong Cadet MD LAB - CHEMISTRY PREETI COSTA [facility] INSURANCE BILL [address] [place] [address] * COLONOSCOPY (09/18/2023) 09/18/2023 Narrative 09/18/2023 Ordered [...] [facility] Lot # [id number] [facility] Expiration Date 09/06/[address] [facility] Instrument Serial Number n/a [facility] COVID Internal Control Acceptable Acceptable [facility] Microbiology SPECIMEN FROM NASAL FOSSAE / Unknown 08/20/2022 11:30 AM CDT Tamia Brooks MD LAB - POINT OF CARE ORDERABLES [facility] [address] [place] [address] * STREP A SCREEN - POINT OF CARE (AMB) (08/20/2022 11:25 AM CDT) Strep A Rapid POCT Negative Negative [facility] Strep A Internal Control Present [facility] Other ENTIRE THROAT (SURFACE REGION OF NECK) / Unknown 08/20/2022 11:25 AM CDT Tamia Brooks MD LAB - POINT OF CARE ORDERABLES [facility] [address] [place], [address] [phone] * EYE EXAM (06/18/2022) Anatomical Region Laterality [...] * XR CHEST 2VW (03/29/2021 1:23 PM VEGETABLE WASHER) Only the most recent of2 resultswithin the time period is included. Anatomical Region Laterality Modality Chest Radiographic Aimee ging 03/29/2021 1:45 PM VEGETABLE WASHER Narrative 03/29/2021 1:59 PM VEGETABLE WASHER CHEST 2 VIEW HISTORY: Cough and shortness [...] with recommendations from the NKF-ASN Task force, [facility] the process [facility] [...] Resulting Agency Comment Lab Testing performed at: [facility] [address] [facility] [phone] Tamia Brooks MD LAB - CHEMISTRY PREETI COSTA Performing Organization Address [facility] Co de Phone Number [facility] INSURANCE BILL [address] [place] [address] * (ABNORMAL) LIPID PROFILE (LIPID PANEL) (01/12/2021 9:20 AM CDT) Only the most recent of12 resultswithin the time period is included. Pathologist [facility] Cholesterol 166 100 - 199 mg/dL [facility] [...] Resulting Agency Comment Lab Testing performed at: [facility] [address] [facility] [phone] Tamia Brooks MD LAB - CHEMISTRY PREETI COSTA Performing Organization Address City/[facility] Co de Phone Number [facility] INSURANCE BILL [address] [place] [address] * (ABNORMAL) [facility] COVID PCR (10/01/2019 4:58 PM CDT) COVID-19 PCR Detected( AA) Not detected, Invalid 10/02/2019 12:35 PM CDT [facility] MICROBIOLOGY Microbiology SPECIMEN FROM NASOPHARYNGEAL STRUCTURE / Unknown Collection / Unknown 10/01/2019 4:58 PM CDT 10/01/2019 4:58 PM CDT [facility] MICROBIOLOGY - 10/02/2019 12:35 PM CDT This nucleic acid amplification assay performance was validated by [facility]. This test has been authorized [...] acid amplification assay performance was validated by [facility]. This test has been authorized [...] Brooks MD LAB - MICROBIOLOGY O RDERABLES [facility] MICROBIOLOGY [address] [place] [address], [facility] [phone] * DEXA BONE DENSITY AXIAL SKELETON (03/17/2019 10:46 AM VEGETABLE WASHER) Only the most recent of2 resultswithin the time period is included. Anatomical Region Laterality Modality Nuclear Medicine 03/17/2019 10:5 0 AM VEGETABLE WASHER Impressions 03/17/2019 10:53 AM VEGETABLE WASHER Osteopenia of the hips. Normal bone mineral density of the lumbar spine. [employer] DEFINITIONS NORMAL= T-Score at or above -1.0 SD OSTEOPENIA = T-Score between -1 and -2.5 SD OSTEOPOROSIS = T-Score at or below -2.5 SD Reading Radiologist: Kiki Mireles MD on 03/17/2019 at 10:53 AM Narrative 03/17/2019 10:53 AM VEGETABLE WASHER BONE MINERAL DENSITY STUDY: INDICATION: 68-year-old for [...] Hip fracture: 1.6% Procedure Note Kiki Mireles, DO - 03/17/2019 BONE MINERAL DENSITY STUDY: [...] AM Tamia Brooks MD DEXA ORDERABLES * DIABETES EYE EXAM (12/07/2018) Scanned Document HEALTH MAINTENANCE * TSH HI LOW REFLEX FREE T4 (10/19/2018 11:20 AM CDT) Only the most recent of2 resultswithin the time period is included. TSH 2.210 0.450 - 4.500 uIU/mL [facility] INSURANCE BILL Blood BLOOD SPECIMEN / Unknown 10/19/2018 11:20 AM CDT 10/19/2018 Narrative Resulting Agency Comment Lab Testing performed at: [facility] [address] [place] [phone] Tamia Brooks MD LAB - CHEMISTRY PREETI COSTA Performing Organization Address City/[facility]/ZIP Co de Phone Number [facility] INSURANCE BILL [address] [place] [address] * PTH INTACT (10/19/2018 11:20 AM CDT) Only the most recent of2 resultswithin the time period is included. [facility] PTH Intact 26 15 - 65 pg/mL [facility] INSURANCE BILL Blood BLOOD SPECIMEN / Unknown 10/19/2018 11:20 AM CDT 10/19/2018 Narrative [facility] INSURANCE BILL - 10/20/2018 5:07 PM CDT A courtesy copy of this report has been sent to Derek Baltazar MD. Resulting Agency Comment Lab Testing performed at: [address] [phone] Tamia Brooks MD LAB - CHEMISTRY PREETI COSTA Performing Organization Address City/[facility] Co de Phone Number [facility] INSURANCE BILL [address] [place] [address] * (ABNORMAL) HEMOGLOBIN A1C (10/19/2018 11:20 AM CDT) Only the most recent of4 resultswithin the time period is included. [facility] Hemoglobin A1c 6.5(H) 4.8 - 5.6 % [facility] INSURANCE BILL Comment: . Prediabetes: 5.7 - 6.4 Diabetes: >6.4 Glycemic control for adults with diabetes: <7.0 Blood BLOOD SPECIMEN / Unknown 10/19/2018 11:20 AM CDT 10/19/2018 Narrative Resulting Agency Comment Lab Testing performed at: [address] [phone] Tamia Brooks MD LAB - CHEMISTRY PREETI COTSA [facility] INSURANCE BILL [address] [place] [address] * AMB REFERRAL TO BREAST SURGERY (08/01/2018 [...] AM CDT) 05/23/2017 8:21 AM CDT Narrative [facility] CARDIOLOGY - 05/23/2017 5:23 PM CDT [facility] [place] [id number] [facility] [address] [place] [address] Transthoracic Echocardiogram 2D, M-mode, Doppler, and Color Doppler Patient: MAURA WATKINS MR number: [id number] Height: 65 in Weight: 186.6 lb BSA: 1.92 m Study date: 23-May-2017 : 1950 Age: 67 years Gender: Female Race: Allergies: DARVON Stockfeed Miller: Faiza Mcgrath RDCS, RVT Referring Physician: Tamia [...] Procedure: The study was performed in the [facility]. The transthoracic approach was used. The [...] Procedure Note Madhu Richards MD - 05/23/2017 [facility] [place] [id number] [facility] [address] [place] [address] Transthoracic Echocardiogram 2D, M-mode, Doppler, and Color Doppler Patient: MAURA WATKINS MR number: [id number] Height: 65 in Weight: 186.6 lb BSA: 1.92 m Study date: 23-May-2017 : 1950 Age: 67 years Gender: Female Race: Allergies: DARVON Stockfeed Miller: Faiza Mcgrath RDCS, RVT Referring Physician: Tamia [...] Procedure: The study was performed in the [facility]. The transthoracic approach was used. The [...] Brooks MD ECHO ORDERABLES Performing Organization Address City/[facility]/ZIP Co de Phone Number [facility] CARDIOLOGY [address] [place] [address] * B-TYPE NATRIURETIC PEPTIDE (05/22/2017 8:35 AM CDT) Only the most recent of2 resultswithin the time period is included. BNP 16.5 0.0 - 100.0 pg/mL [facility] INSURANCE BILL Comment:FASTING Blood BLOOD SPECIMEN / Unknown 05/22/2017 8:35 AM CDT 05/22/2017 Narrative Resulting Agency Comment [facility] [address] [facility] [phone] Tamia Brooks MD LAB - CHEMISTRY ORDCarl COSTA Performing Organization Address [facility] Co de Phone Number [facility] INSURANCE BILL [address] [place] [address] * C-REACTIVE PROTEIN (04/17/2017 9:11 AM VEGETABLE WASHER) C-Reactive Protein 1.0 0.0 - 4.9 mg/L [facility] INSURANCE BILL Comment:FASTING Blood BLOOD SPECIMEN / Unknown 04/17/2017 9:11 AM VEGETABLE WASHER 04/17/2017 Narrative Resulting Agency Comment [facility] [address] [facility] [phone] Tamia Brooks MD LAB - CHEMISTRY PREETI COSTA Performing Organization Address [facility] Co de Phone Number [facility] INSURANCE BILL [address] [place] [address] * ERYTHROCYTE SEDIMENTATION RATE (04/17/2017 9:11 AM VEGETABLE WASHER) Erythrocyte Sedimentation Rate Westergren 6 0 - 40 mm/hr [facility] INSURANCE BILL Comment:FASTING Blood BLOOD SPECIMEN / Unknown 04/17/2017 9:11 AM VEGETABLE WASHER 04/17/2017 Narrative Resulting Agency Comment [facility] [address] [facility] [phone] Tamia Brooks MD LAB - HEMATOLOGY ORD ERAJOSE [facility] INSURANCE BILL [address] [place] [address] * PULMONARY/RESPIRATORY REPORT ORDER (02/20/2017 10:19 PM VEGETABLE WASHER) Narrative 02/20/2017 10:19 PM VEGETABLE WASHER Ordered by an unspecified provider. Scanned Document RESPIRATORY THERAPY ORDERABLES * CPAP/BIPAP TITRATION (02/14/2017 10:29 AM VEGETABLE WASHER) Narrative Ramon Parker MD - 02/14/2017 10:29 AM VEGETABLE WASHER Ramon Parker MD 02/14/2017 10:29 AM Polysomnogram sleep [...] needs to be evaluated. Ramon Parker MD, [facility] Pulmonary and Sleep Medicine. Be advised [...] WITH CPAP IF INDICATED (01/20/2017 9:44 AM VEGETABLE WASHER) Narrative Ramon Parker MD - 01/20/2017 9:44 AM VEGETABLE WASHER Ramon Parker MD 01/20/2017 9:44 AM Polysomnogram sleep study. 66 year-old who reports snoring and excessive daytime sleepiness suspicious of sleep apnea was referred for a polysomnogram. The [place] Sleepiness Scale at the night of the [...] for restless leg syndrome. Ramon Parker MD, [facility] Pulmonary and Sleep Medicine. Be advised that voice recognition software was used in the production of this record. Errors in interpretation may have been inadvertently missed during review. Ramon Parker MD SLEEP CENTER ORDERAB LES * HELICOBACTER PYLORI UREASE (STL) (10/04/2016 12:23 PM CDT) Helicobacter pylori Urease Initial Negative Negative 10/05/2016 5:11 PM CDT [facility] Helicobacter pylori Urease Final Negative Negative 10/05/2016 5:11 PM CDT [facility] Microbiology GASTRIC ANTRAL BIOPSY SPECIMEN / Unknown Collection / Unknown 10/04/2016 12:23 PM CDT 10/04/2016 3:06 PM CDT James Calix MD LAB - MICROBIOLOGY O RDSTANLEY [facility] [address] [place] [phone] * EGD (10/04/2016 11:57 AM CDT) Report Endoscopy POC _ Patient Name: Maura June Procedure Date: 10/04/2016 11:57 AM Date of [...] PO BID. Procedure Code(s): --- Professional --- 65228, Esophagogastroduo denoscopy, flexible, transoral; with biopsy, single or multiple --- Technical --- 38482, Esophagogastroduo denoscopy, flexible, transoral; with biopsy, single or multiple Diagnosis Code(s): --- Professional --- K44.9, Diaphragmatic hernia without obstruction or gangrene K29.70, Gastritis, unspecified, without bleeding --- Technical --- K44.9, Diaphragmatic hernia without obstruction or gangrene K29.70, Gastritis, unspecified, without bleeding CPT copyright 2015 [employer]. All rights reserved. The codes documented in this report are preliminary and upon philatelic consultant review may be revised to meet current compliance requirements. James Calix MD 10/04/2016 12:32:07 PM This report has been signed electronically. Number of Addenda: 0 Note Initiated On: 10/04/2016 11:57 AM [facility] ENDOSCOPY 10/04/2016 11:5 7 AM CDT James Calix MD GI PROCEDURE ORDERAB LES [facility] ENDOSCOPY * PHOSPHORUS BLOOD (09/26/2016 8:02 AM CDT) Phosphorus 4.0 2.5 - 4.5 mg/dL [facility] INSURANCE BILL Comment:FASTING Blood BLOOD SPECIMEN / Unknown 09/26/2016 8:02 AM CDT 09/26/2016 Narrative Resulting Agency Comment [facility] [address] [facility] [phone] Tamia Brooks MD LAB - CHEMISTRY PREETI COSTA Performing Organization Address [facility] de Phone Number [facility] INSURANCE BILL [address] [place] [address] * HEPATITIS C ANTIBODY (09/26/2016 8:02 AM CDT) Hepatitis C Antibody <0.1 0.0 - 0.9 s/co ratio [facility] INSURANCE BILL Comment: Negative: < 0.8 Indeterminate: 0.8 - 0.9 Positive: > 0.9 . The CDC recommends that a positive HCV antibody result be followed up with a HCV Nucleic Acid Amplification test (766871). FASTING Blood BLOOD SPECIMEN / Unknown 09/26/2016 8:02 AM CDT 09/26/2016 Narrative Resulting Agency Comment [facility] [address] [facility] [phone] Tamia Brooks MD LAB - CHEMISTRY PREETI COSTA Performing Organization Address [facility] Co de Phone Number [facility] INSURANCE BILL [address] [place] [address] * (ABNORMAL) CULTURE URINE (09/16/2016 11:28 AM CDT) Urine Culture Routine Final report(A) [facility] INSURANCE BILL Result 1 (A) [facility] INSURANCE BILL Comment: Escherichia coli, identified by an automated biochemical system. Greater than 100,000 colony forming units per mL [facility]im[facility] Susceptibility [facility] Comment: S = Susceptible; I [...] AM CDT 09/16/2016 Narrative Resulting Agency Comment [facility] [address] [facility] [phone] Tamia Brooks MD [facility] Performing Organization Address City/State/[facility] Co de Phone Number [facility] INSURANCE BILL [address] [place] [address] * URINALYSIS - POINT OF CARE (09/16/2016) Clarity UA POCT cloudy Color UA POCT dk yellow Leukocyte UA large Negative Nitrite UA POCT neg Negative Urobilinogen UA 0.2 0.1 - 1.0 Protein UA POCT trace Negative pH UA 5.5 5.0 - 8.0 pH units Blood UA moderate Negative Specific [place] UA POCT <1.005 1.002 - 1.030 Ketone [...] 6:23 PM CDT Narrative Resulting Agency Comment [facility] [address] [facility] [phone] Lemuel Hoang MD LAB - CHEMISTRY PREETI COSTA [place] Organization Address City/State/ZIP Co de Phone Number [facility] INSURANCE BILL * DEXA BONE DENSITY 2 SITES (08/17/2014 6:09 PM CDT) Anatomical Region Laterality Modality Other Narrative 08/17/2014 6:09 PM CDT Reese Valverde MD 08/17/2014 6:09 PM [facility] BONE DENSITY REPORT Pt. Name: Maura Watkins Gender: female : 1950 Test Date: 08/17/2014 Referring Physician: Lemuel Hoang MD Technologist: SANJUANA Jaramillo A Central DXA was performed today using a [employer] C sales service route manager. The images and data have been [...] Reese Valverde MD Physician and Certified Clinical Vice President Of Sales Lemuel Hoang MD DEXA ORDERABLES * ALT (07/13/2014 8:47 AM CDT) ALT 18 0 - 32 IU/L [facility] INSURANCE BILL Blood specimen (specimen) BLOOD SPECIMEN / Unknown 07/13/2014 8:47 AM CDT 07/13/2014 1:28 PM CDT Narrative Resulting Agency Comment [facility] [address] [facility] [phone] Lemuel Hoang MD LAB - CHEMISTRY PREETI COSTA [place] Organization Address City/State/ZIP Co de Phone Number [facility] INSURANCE BILL * AST BLOOD (07/13/2014 8:47 AM CDT) AST 24 0 - 40 IU/L [facility] INSURANCE BILL Blood specimen (specimen) BLOOD SPECIMEN / Unknown 07/13/2014 8:47 AM CDT 07/13/2014 1:28 PM CDT Narrative Resulting Agency Comment [facility] [address] [facility] [phone] Lemuel Hoang MD LAB - CHEMISTRY PREETI COSTA Performing Organization Address [facility] de Phone Number [facility] INSURANCE BILL * TSH (07/13/2014 8:47 AM CDT) Only the most recent of7 resultswithin the time period is included. TSH 2.060 0.450 - 4.500 uIU/mL [facility] INSURANCE BILL Blood specimen (specimen) BLOOD SPECIMEN / Unknown 07/13/2014 8:47 AM CDT 07/13/2014 1:28 PM CDT Narrative Resulting Agency [facility] [address] [facility] [phone] Lemuel Hoang MD LAB - CHEMISTRY PREETI COSTA Performing Organization Address [facility] Phone Number [facility] INSURANCE BILL * T4 FREE (07/13/2014 8:47 AM CDT) Only the most recent of4 resultswithin the time period is included. T4 Free 1.00 0.82 - 1.77 ng/dL [facility] INSURANCE BILL Blood specimen (specimen) BLOOD SPECIMEN / Unknown 07/13/2014 8:47 AM CDT 07/13/2014 1:28 PM CDT Narrative Resulting Agency Comment [facility] [address] [facility] [phone] Lemuel Hoang MD LAB - CHEMISTRY PREETI COSTA Performing Organization Address [facility] de Phone Number [facility] INSURANCE BILL [...] older Providers: Jos Scott MD (Doctor), Latonia Salazar, SAMSON, Travis Barrett RN Referring MD: Jhonathan Fisher [...] for surveillance. - Call my office at [phone] if you have any questions. Procedure Code(s): [...] without mention of complication CPT copyright 2013 [employer]. All rights reserved. The codes documented in this report are preliminary and upon philatelic consultant review may be revised to meet current compliance requirements. ____ Jos Scott MD 11/05/2013 9:48 AM Number of Addenda: 0 Note Initiated On: 11/05/2013 9:10 AM [facility] ENDOSCOPY 11/05/2013 9:10 AM CDT Jos Scott MD GI PROCEDURE ORDCarl RABLES [facility] ENDOSCOPY * CVD REPORT (PO REF LAB) [...] RISK ASSESSMENT: National Heart, Lung, and Blood Plain's Third Report of the NCEP Expert Panel on Detection, Evaluation and Treatment of High Blood Cholesterol in Adults (ATP III) (2002. NIH publication 02-5241); Dejuanl et al. Diabetes Care 2008; 31(4):811-82; Rudolph et al. Clin Chem 2009; 55(3):407-419; Sergio ALEXANDER et al. 2013 ACC/AHA guideline on the treatment of blood cholesterol to reduce atherosclerotic cardiovascular risk in adults: a report of the [place] [employer] [employer] Association Task Force on Practice Guidelines. Circulation 2013; 00:000-000. PDF Image Not applicable [facility] INSURANCE BILL 08/28/2013 8:48 AM CDT 08/28/2013 1:09 PM CDT Narrative Resulting Agency Comment [email or web address] [address] [facility] [phone] Jhonathan Fisher MD LAB - CHEMISTRY ORD ERABLES Performing Organization Address City/[facility]/ZIP Co de Phone Number [facility] INSURANCE BILL * URINALYSIS MICROSCOPIC ONLY [...] 1:09 PM CDT Narrative Resulting Agency Comment [facility] [phone] Jhonathan Fisher MD LAB - URINALYSIS OR [...] 1:09 PM CDT Narrative Resulting Agency Comment [facility] [phone] Jhonathan Fisher MD LAB - CHEMISTRY ORD ERABLES [facility] INSURANCE BILL * URINALYSIS ROUTINE AUTO (08/28/2013 8:48 AM CDT) Only the most recent of6 resultswithin the time period is included. Specific [place] UA 1.016 1.005 - 1.030 [facility] INSURANCE [...] 1:09 PM CDT Narrative Resulting Agency Comment [facility] [phone] Jhonathan Fisher MD LAB - URINALYSIS OR DERABLES Performing Organization Address City/[facility]/ZIP Co de Phone Number [facility] INSURANCE [...] PM CDT Narrative Resulting Agency Comment [facility] [address] [phone] Jhonathan Fisher MD LAB - CHEMISTRY ORD ERABLES [facility] INSURANCE BILL * CARDIAC PROCEDURE ORDER (05/23/2011) María Ellis MD CARDIAC SERVICES ORD ERABLES * URINALYSIS MICROSCOPIC ONLY (03/25/2011 8:32 AM VEGETABLE WASHER) Only the most recent of3 resultswithin the [...] test is not needed 03/25/2011 8:32 AM VEGETABLE WASHER 03/25/2011 1:22 PM VEGETABLE WASHER Narrative Resulting Agency Comment [address] [phone] Jhonathan Fisher MD LAB - URINALYSIS OR DERABLES Performing Organization Address City/[facility]/ZIP Co de Phone Number [facility] INSURANCE BILL * C-REACTIVE PROTEIN SENSITIVE (05/11/2010 10:36 AM VEGETABLE WASHER) C-Reactive Protein High Sensitivity 0.85 0.00 - 3.00 mg/L [facility] INSURANCE BILL Comment: Relative Risk for Future Cardiovascular Event Low <1.00 Average 1.00 - 3.00 High >3.00 BLOOD SPECIMEN / Unknown 05/11/2010 10:36 AM VEGETABLE WASHER 05/11/2010 9:32 PM VEGETABLE WASHER Narrative Resulting Agency Comment [facility] [address] [facility] [phone] Jhonathan Fisher MD LAB - CHEMISTRY ORD ERABLES Performing Organization Address City/[facility] Co de Phone Number [facility] INSURANCE BILL * APOLIPOPROTEIN B (05/11/2010 10:36 AM VEGETABLE WASHER) Pathologist [facility] Apolipoprotein B 98 50 - 130 mg/dL [facility] INSURANCE BILL BLOOD SPECIMEN / Unknown 05/11/2010 10:36 AM VEGETABLE WASHER 05/11/2010 9:32 PM VEGETABLE WASHER Narrative Resulting Agency Comment [address] [phone] Jhonathan Fisher MD LAB - CHEMISTRY ORD ERABLES Performing Organization Address City/[facility]/ZIP Co de Phone Number [facility] INSURANCE [...] [JEANNINE] on 01/12/09 at 1:50 PM (File: [id number]) A scan was deleted from the Results section by Nia Guillermo [JEANNINE] on 01/12/09 at 1:52 PM (File: [id number]) Jhonathan Fisher MD MAMMO ORDERABLES * CBC [...] Thousand/u L [facility] Comment: Test Performed at: [facility] [email or web address] [id number] CECELIA ENRIQUEZ MD 05/24/2008 8:07 AM CDT 05/25/2008 1:24 AM CDT Jhonathan Fisher MD LAB - HEMATOLOGY OR DERABLES Performing Organization Address [facility] Co de Phone Number [facility] [address] [place] [address] * GGT (05/24/2008 8:07 AM CDT) GGT 38 3 - 65 U/L [facility] Comment: Test Performed at: [facility] [address] [place] [facility] [id number] CECELIA ENRIQUEZ MD 05/24/2008 8:07 AM CDT 05/25/2008 1:24 AM CDT Jhonathan Fisher MD LAB - CHEMISTRY ORD ERABLES [facility] [address] [place] [address] * FINE NEEDLE ASPIRATION (04/29/2001 12:00 PM VEGETABLE WASHER) Result CASE NUMBER [id number] Comment: ORDERING [...] <1> Pathologist Coy Rios M.D. CPT code 18755 MISCELLANEOUS SAMPLES / Unknown 04/29/2001 12:00 PM VEGETABLE WASHER 04/30/2001 7:43 AM VEGETABLE WASHER Historical Provider MD LAB - PATHOLOGY/C YTOLOGY ORDERABLES Care Teams Roving Frame Tender Relationship Specialty Start Date End Date Tamia Brooks MD [address] [place] [phone] PCP - General Internal Medicine 07/26/16 Tamia Brooks MD [address] [place] [address] PCP - Attributed-MSSP 05/08/22 Yohan Barros DPM [address] [place] [phone] Podiatry 05/24/13
--- OUTSIDE RECORDS SUMMARY | 2024-04-16 15:31 | XMS_ITS | Encounter Summary ---
Author Organization [employer] [facility] [employer] Address [address] [place] [address] Care Team Providers Care Telecommunication Lines Repairer Name Role Phone Jhonathan Fisher MD Primary Care Provider Opal ramírez Encounter Details Date Type Department Care Team (Late st Contact Info) Description 12/16/2003 Outpatient Historical HIS MAMM Alex Kay MD [address] [facility] [address] [place] [address] SCREENING MAMM-MAILG NEOPL-OTHER (Primary Dx) Social History Tobacco Use Types Packs/Day Years Used Date Smoking Tobacco: Never Assessed Comments Unknown Sex and Gender Information Value Date Recorded Sex Assigned at Not on file Legal Sex Female 3:08 AM PSYCHOLOGIST [employer] Gender Identity Not on file Sexual Orientation Not on file documented as of this encounter Plan of Treatment Not on file documented as of this encounter Visit Diagnoses Diagnosis Other screening mammogram- Primary documented in this encounter Care Teams Telecommunication Lines Repairer Relationship Specialty Start Date End Date Jhonathan Fisher MD PCP - General 02/24/15 documented as of this encounter
--- OUTSIDE RECORDS SUMMARY | 2024-04-16 15:31 | XMS_ITS | Encounter Summary ---
Author Organization [facility] Address [address] [facility] [place] [address] Care Team Providers Care Crew Team Member Name Role Phone Yohan Barros DPM Unavailable [phone] Tamia Brooks MD Primary Care Provider [phone] Tamia Brooks MD Unavailable [phone] Reason for Visit * Reason Onset Date Comments Hypertension 04/16/2024 Encounter Details Date Type Department Care Team (Late st Contact Info) Description 04/16/2024 Telephone [facility] - Internal Medicine [address] [phone] Tamia Brooks MD [address] [place] [phone] Hypertension Social History Tobacco Use Types [...] Encounter - Ayah Sharpe RN - 04/16/2024 2:25 PM HOST Left detailed VM advising pt of MD's response Requested call back after ER evaluation so we can update any changes that may have been made to herplan of care Ayah Sharpe RN * Telephone Encounter - Tamia Brooks MD - 04/16/2024 12:40 PM CST Noted and agree with ER. If for some reason she is unable to be seen or if they do not adjust her medications, I sent a prescription for amlodipine 10 mg once daily. Please add this to lisinopril. * Telephone Encounter - Ayah Sharpe RN - 04/16/2024 10:02 AM HOST Pt calling with concerns of elevated BP She states Friday her BP was very high at PT - PT for meniscus tear Pt went to , and was advised to go to ER [...] treatment. She verbalized understanding, will go to [facility] Please review and advise, thank you Ayah Sharpe RN documented in this encounter Plan of Treatment Upcoming Encounters Date Type Department Care Team (Late st Contact Info) Description 06/29/2024 10:00 AM CDT Office Visit [facility] - Internal Medicine [address] [place] [phone] Tamia Brooks MD [address] [place] [address] documented as of this encounter Goals Goal Patient Goal Type Associated Problems Recent Progress Patient-Stated? Author Blood Pressure < 140/90 Blood Pressure 130/70( 024 1:19 PM CDT) Lola Serna MA documented as of this encounter Visit Diagnoses Not on filedocumented in this encounter Care Teams Crew Team Member Relationship Specialty Start Date End Date Tamia Brooks MD [address] [place] [phone] PCP - General Internal Medicine 07/26/16 Tamia Brooks MD [address] [place] [address] PCP - Attributed-MSSP 05/08/22 Yohan Barros, DPM [address] [address] [place] [phone] Podiatry 05/24/13 documented as of this encounter
--- OUTSIDE RECORDS SUMMARY | 2024-04-16 15:31 | XMS_ITS | Continuity of Care Document ---
Author Organization [facility] Address [address] [address] Phone Care Team Providers Care Beauty Culturist Name Role Phone Daniel PONCE, Jose Unavailable [...] - Active Procedures Procedure Date OFFICE/OUTPATIENT VISIT [facility] OFFICE/OUTPATIENT VISIT [facility] Advance Directives Directive Yes / No Effective Date File Name No Information Encounters Encounter Description Practice Location Reason(s) For Visit Diagnoses Date Provider Providers Copied on Encounter OFFICE/OUTPA TIENT VISIT EST [facility], [address], [address], [place] tel:[phone] [facility] Ruptured Bakers cystGastrocnemi us strain, right, subsequent encounter Sep-1 6 Sucher Jose. [address] [address], [place], [address]. tel: [phone] [facility], [address] [place] [address] [address], [place], [facility], [place] tel:[phone] [facility] Pain of right lower extremity Sep-0 6 Sucher Jose. [address] [address], [place], [address]. tel: [phone] OFFICE/OUTPA TIENT VISIT [facility], [address] [facility] [address], [place], [address], [place] tel:[phone] [facility] Pain of right lower extremity 6 Sucher Jose. [address] [facility] [address], [place], [address]. tel: [phone] Family History Family Member Type Diagnosis Age At Onset Sister Problem (finding) Alive and well Payers Payer name Insurance type Covered democrat ID Authorsylvestera tion(s) Medicare E2 OT [id number] For Life OT [id number] Social History Type Description Quantity Date Captured [...]
--- OUTSIDE RECORDS SUMMARY | 2024-04-16 15:31 | XMS_ITS | Clinical Summary ---
Author Organization [facility] Address [address] [facility] [place] [address] Care Team Providers Care Electrical Test Engineer Name Role Phone Yohan Barros DPM Unavailable [phone] Tamia Brooks MD Primary Care Provider [phone] Tamia Brooks MD Unavailable [phone] Source Comments [facility],non-owned Affiliates and Associated Physician Practices is amultiple site organization consisting of ambulatory clinics and hospital sitesin [place], [place], [place] and [place]. This disclosure is being madepursuant to the Care Everywhere program and may not contain all information available regarding this patient. Last updated 17.[facility] Allergies Active Allergy Reactions Criticality Noted [...] once daily 90 tablet 1 5 Active amLODIPine (Norvasc) 10 MG tabletIndications: Hypertension Take 1 (one) tablet by mouth once daily Reasons: High Blood Pressure 90 tablet 1 5 Active lisinopril (Prinivil; [...] Type Department Care Team Description 04/16/2024 Telephone [facility] Internal Medicine [address] [place] [phone] Tamia Brooks MD Hypertension 04/13/2024 Refill [facility] Internal Medicine [address] [place] [phone] Tamia Brooks MD MEDICATION REFILL 03/30/2024 Telephone [facility] Internal Medicine [address] [place] [phone] Tamia Brooks MD Question 03/24/2024 Telephone [facility] Internal Medicine [address] [place] [phone] Tamia Brooks MD Question 03/05/2024 Patient Outreach [facility] - Care Coordination [address] [place] [phone] Renadr Pichardojamesmagdy Outreach Preventive Care 02/04/2024 Refill [facility] - Internal Medicine [address] [place] [address] [address] [place] [address] Tamia Brooks MD Refill Request 01/19/2024 Telephone [facility] Internal Medicine [address] [place] [address] [address] [place] [address] Tamia Brooks MD Pain Knee [...] Relation Name Comments Cancer - Colon Brother 2007 Lung Cancer Father smoker Cancer - Breast [...] CDT Respiratory Rate 16 04/23/2018 1:13 PM WINE MAKER Oxygen Saturation 95% 11/18/2023 1:19 PM CDT [...] [facility] - Internal Medicine [address] [facility] [address] [place] [address] [place] [address] [place] [address] [address] [place] [address] Health Maintenance Due Date Last [...] 024 1:19 PM CDT) Lola Serna MA Procedures Procedure Name Priority Date/Time Associated [...] DENSITY AXIAL SKELETON Routine 03/17/2019 10:46 AM WINE MAKER Asymptomatic menopausal state Osteopenia, unspecified location HEPATITIS C ANTIBODY Routine 09/26/2016 8:02 AM CDT Need for hepatitis C screening test from Last 3 Months or Most Recently Relevant to Health Maintenance Results * HEMOGLOBIN A1C - POINT OF CARE (HgbA1C) (11/18/2023 1:25 PM CDT) Pathologist [facility] Hemoglobin A1c POCT 6.4 % [facility] Expiration Date 07.10.[address] [facility] [address] [facility] Lot # [id number] [facility] QC Verified Yes Yes [facility] Blood BLOOD SPECIMEN / Unknown 11/18/2023 1:25 PM CDT Tamia Brooks MD LAB - POINT OF CARE [facility]ABLES [facility] [address] [phone] * EYE EXAM (10/15/2023) Anatomical Region Laterality [...] Resulting Agency Comment Lab Testing performed at: [facility] [address] [facility] [id number] Tamia Brooks MD LAB - URINE CHEMISTR Y ORDERABLES [facility] INSURANCE BILL [address] [place] [address] * (ABNORMAL) COMPREHENSIVE METABOLIC PANEL (09/23/2023 2:28 [...] Resulting Agency Comment Lab Testing performed at: [facility] [address] [place] [phone] Tamia Brooks MD LAB - CHEMISTRY PREETI COSTA [facility] INSURANCE BILL [address] [place] [address] * DEXA BONE DENSITY AXIAL SKELETON (03/17/2019 10:46 AM WINE MAKER) Anatomical Region Laterality Modality Nuclear Medicine 03/17/2019 10:5 0 AM WINE MAKER Impressions 03/17/2019 10:53 AM WINE MAKER Osteopenia of the hips. Normal bone mineral density of the lumbar spine. [employer] DEFINITIONS NORMAL= T-Score at or above -1.0 SD OSTEOPENIA = T-Score between -1 and -2.5 SD OSTEOPOROSIS = T-Score at or below -2.5 SD Reading Radiologist: Kiki Mireles MD on 03/17/2019 at 10:53 AM Narrative 03/17/2019 10:53 AM WINE MAKER BONE MINERAL DENSITY STUDY: INDICATION: 68-year-old for [...] with a HCV Nucleic Acid Amplification test ([id number]). FASTING Blood BLOOD SPECIMEN / Unknown 09/26/2016 8:02 AM CDT 09/26/2016 Narrative Resulting Agency [facility] [address] [facility] [phone] Tamia Brooks MD LAB - CHEMISTRY PREETI COSTA [facility] Organization Address City/State/ZIP Co de Phone Number [facility] INSURANCE BILL [address] [place] [address] from Last 3 Months or Most Recently Relevant to Health Maintenance Care Teams Electrical Test Engineer Relationship Specialty Start Date End Date Tamia Brooks MD [address] [place] [address] PCP - General Internal Medicine 07/26/16 Tamia Brooks MD [address] [place] [address] PCP - Attributed-MSSP 05/08/22 Yohan Barros, DPM [facility] [address] [phone] Podiatry 05/24/13
--- OUTSIDE RECORDS SUMMARY | 2024-04-16 15:31 | XMS_ITS | Referral Summary ---
Author Organization [facility] Address [address] [facility] [place] [address] Care Team Providers Care Scientific Research Associate Name Role Phone Yohan Barros DPM Unavailable [phone] Tamia Brooks MD Primary Care Provider [phone] Tamia Brooks MD Unavailable [phone] Source Comments [facility],non-owned Affiliates and Associated Physician Practices is amultiple site organization consisting of ambulatory clinics and hospital sitesin [place], [place], [place] and [place]. This disclosure is being madepursuant to the Care Everywhere program and may not contain all information available regarding this patient. Last updated 17.[facility] Encounters Date Type Department Care Team Description 04/16/2024 Telephone [facility] Internal Medicine [address] [place] [phone] Tamia Brooks MD Hypertension 04/13/2024 Refill [facility] Internal Medicine [address] [place] [phone] Tamia Brooks MD MEDICATION REFILL 03/30/2024 Telephone [facility] Internal Medicine [address] [place] [phone] Tamia Brooks MD Question 03/24/2024 Telephone [facility] Internal Medicine [address] [place] [phone] Tamia Brooks MD Question 03/05/2024 Patient Outreach [facility] - Care Coordination [address] [place] [address] Lelo Pichardo Outreach Preventive Care 02/04/2024 Refill [facility] Internal Medicine [address] [place] [address] [address] [place] [address] Tamia Brooks MD Refill Request 01/19/2024 Telephone [facility] Internal Medicine [address] [place] [address] [address] [place] [address] Tamia Brooks MD Pain Knee [...] mL/min/1.73 40 (L) 47 (L) GFR 7, 3- Situational mixed anxiety and depressive disorde [...] CDT Respiratory Rate 16 04/23/2018 1:13 PM AUTO TRANSPORT DRIVER Oxygen Saturation 95% 11/18/2023 1:19 PM CDT [...] Adult Care Unit - Internal Medicine [address] [facility] [address] [place] [address] Tamia Brooks MD [address] [facility] [address] [place] [address] Goals Goal Patient Goal Type [...] DENSITY AXIAL SKELETON Routine 03/17/2019 10:46 AM AUTO TRANSPORT DRIVER Asymptomatic menopausal state Osteopenia, unspecified location HEPATITIS [...] [facility] Lot # [id number] [facility] QC Verified Yes Yes [facility] Blood BLOOD SPECIMEN / Unknown 11/18/2023 1:25 PM CDT Tamia Brooks MD LAB - POINT OF CARE ORDERABLES [facility] [address] [phone] * EYE EXAM (10/15/2023) Anatomical Region Laterality [...] Resulting Agency Comment Lab Testing performed at: [facility] [address] [place] [address] [phone] Tamia Brooks MD LAB - URINE CHEMISTR Y ORDERABLES [facility] INSURANCE BILL [address] [place] [address] * (ABNORMAL) COMPREHENSIVE METABOLIC PANEL (09/23/2023 2:28 [...] Resulting Agency Comment Lab Testing performed at: [facility] [address] [place] [address] [phone] Tamia Brooks MD LAB - CHEMISTRY PREETI [facility] Organization Address City/State/ZIP Co de Phone Number [facility] INSURANCE BILL [address] [place] [address] * DEXA BONE DENSITY AXIAL SKELETON (03/17/2019 10:46 AM AUTO TRANSPORT DRIVER) Anatomical Region Laterality Modality Nuclear Medicine 03/17/2019 10:5 0 AM AUTO TRANSPORT DRIVER Impressions 03/17/2019 10:53 AM AUTO TRANSPORT DRIVER Osteopenia of the hips. Normal bone mineral density of the lumbar spine. [employer] DEFINITIONS NORMAL= T-Score at or above -1.0 SD OSTEOPENIA = T-Score between -1 and -2.5 SD OSTEOPOROSIS = T-Score at or below -2.5 SD Reading Radiologist: Kiki Mireles MD on 03/17/2019 at 10:53 AM Narrative 03/17/2019 10:53 AM AUTO TRANSPORT DRIVER BONE MINERAL DENSITY STUDY: INDICATION: 68-year-old for [...] with a HCV Nucleic Acid Amplification test ([id number]). FASTING Blood BLOOD SPECIMEN / Unknown 09/26/2016 8:02 AM CDT 09/26/2016 Narrative Resulting Agency Comment [facility] [address] [facility] [place] [phone] Tamia Brooks MD LAB - CHEMISTRY PREETI COSTA [facility] Organization Address City/State/ZIP Co de Phone Number [facility] INSURANCE BILL [address] [place] [address] from Last 3 Months or Most Recently Relevant to Health Maintenance Care Teams Scientific Research Associate Relationship Specialty Start Date End Date Tamia Brooks MD [address] [facility] [address] [place] [address] PCP - General Internal Medicine 07/26/16 Tamia Brooks MD [address] [facility] [address] [place] [address] PCP - Attributed-MSSP 05/08/22 Yohan Barros, DPM [facility] [address] [phone] Podiatry 05/24/13
--- OUTSIDE RECORDS SUMMARY | 2024-04-16 15:31 | XMS_ITS | Encounter Summary ---
Author Organization [facility] Address [address] [place] [address] Care Team Providers Care Drawing Checker Name Role Phone Jhonathan Fisher MD Primary [...] on file Legal Sex Female 3:08 AM CODE OFFICIAL Gender Identity Not on file Sexual Orientation Not on file documented as of this encounter Plan of Treatment Not on file documented as of this encounter Visit Diagnoses Diagnosis Other screening mammogram- Primary documented in this encounter Care Teams Drawing Checker Relationship Specialty Start Date End Date Jhonathan Fisher MD PCP - General 02/24/15 documented as of this encounter
--- OUTSIDE RECORDS SUMMARY | 2024-04-16 15:31 | XMS_ITS | Encounter Summary ---
Author Organization [facility] Address [address] [place] [address] Care Team Providers Care Pipe Turner Name Role Phone Jhonathan Fisher MD Primary Care Provider Opal ramírez Encounter Details Date Type Department Care Team (Late st Contact Info) Description 01/02/2004 Outpatient Historical [facility] Alex Salmon MD [address] [facility] [address] [place] [address] SCREENING MAMM-MALIG NEOPL-HI RISK (Primary Dx) Social History Tobacco Use Types Packs/Day Years Used Date Smoking Tobacco: Never Assessed Comments Unknown Sex and Gender Information Value Date Recorded Sex Assigned at Not on file Legal Sex Female 3:08 AM DISPENSARY CLERK Gender Identity Not on file Sexual Orientation Not on file documented as of this encounter Plan of Treatment Not on file documented as of this encounter Visit Diagnoses Diagnosis Screening mammogram for high-risk patient- Primary documented in this encounter Care Teams Pipe Turner Relationship Specialty Start Date End Date Jhonathan Fisher MD PCP - General 02/24/15 documented as of this encounter
--- OUTSIDE RECORDS SUMMARY | 2024-04-16 15:31 | XMS_ITS | Encounter Summary ---
Author Organization [facility] Address [address] [place] [address] Care Team Providers Care Shift Production Supervisor Name Role Phone Jhonathan Fisher MD Primary Care Provider Opal ramírez Encounter Details Date Type Department Care Team (Latest Contact Info) Description 12/27/1998 Outpatient Historical HIS [facility] Jhonathan Nunez MD Other screening mammogram (Primary Dx) Social History Tobacco Use Types Packs/Day Years Used Date Smoking Tobacco: Never Assessed Comments Unknown Sex and Gender Information Value Date Recorded Sex Assigned at Not on file Legal Sex Female 3:08 AM CHIEF CRUISER Gender Identity Not on file Sexual Orientation Not on file documented as of this encounter Plan of Treatment Not on file documented as of this encounter Visit Diagnoses Diagnosis Other screening mammogram- Primary documented in this encounter Care Teams Shift Production Supervisor Relationship Specialty Start Date End Date Jhonathan Fisher MD PCP - General 02/24/15 documented as of this encounter
--- OUTSIDE RECORDS SUMMARY | 2024-04-16 15:31 | XMS_ITS | Encounter Summary ---
Author Organization [facility] Address [address] [place] [address] Care Team Providers Care Bead Wire Taper Name Role Phone Jhonathan Fisher MD Primary Care Provider Opal ramírez Encounter Details Date Type Department Care Team (Late st Contact Info) Description 12/23/2005 Outpatient Historical [facility] Raz Banuelos MD [address] [place] [phone] Other Screening Mammogram (Primary Dx) Social History Tobacco Use Types Packs/Day Years Used Date Smoking Tobacco: Never Assessed Comments Unknown Sex and Gender Information Value Date Recorded Sex Assigned at Not on file Legal Sex Female 3:08 AM TAPE RULES PRINTING MACHINE OPERATOR Gender Identity Not on file Sexual Orientation Not on file documented as of this encounter Plan of Treatment Not on file documented as of this encounter Visit Diagnoses Diagnosis Other screening mammogram- Primary documented in this encounter Care Teams Bead Wire Taper Relationship Specialty Start Date End Date Jhonathan Fisher MD PCP - General 02/24/15 documented as of this encounter
--- OUTSIDE RECORDS SUMMARY | 2024-04-16 15:31 | XMS_ITS | Encounter Summary ---
Author Organization [facility] Address [address] [place] [address] Care Team Providers Care Ground Operations Superintendent Name Role Phone Jhonathan Fisher MD Primary [...] on file Legal Sex Female 3:08 AM IN HOME NANNY Gender Identity Not on file Sexual Orientation Not on file documented as of this encounter Plan of Treatment Not on file documented as of this encounter Visit Diagnoses Diagnosis Other screening mammogram- Primary documented in this encounter Care Teams Ground Operations Superintendent Relationship Specialty Start Date End Date Jhonathan Fisher MD PCP - General 02/24/15 documented as of this encounter
--- OUTSIDE RECORDS SUMMARY | 2024-04-16 15:31 | XMS_ITS | Clinical Summary ---
Author Organization [facility] Address [address] [place] [address] Care Team Providers Care Edge Sawyer Name Role Phone Unavailable Primary Care Provider [...]
--- OUTSIDE RECORDS SUMMARY | 2024-04-16 15:31 | XMS_ITS | Encounter Summary ---
Author Organization [facility] Address [address] [facility] [address] [place]: Epic Prelude [place]T [place] [address] Care Team Providers Care Market Master Name Role Phone Jhonathan Fisher MD Primary Care Provider Opal ramírez Encounter Details Date Type Department Care Team (Late st Contact Info) Description 12/10/1995 Outpatient Historical Conversion, History Social History Tobacco Use Types Packs/Day Years Used Date Smoking Tobacco: Never Assessed Comments Unknown Sex and Gender Information Value Date Recorded Sex Assigned at Not on file Legal Sex Female 3:08 AM SENIOR PRODUCT MARKETING MANAGER Gender Identity Not on file Sexual Orientation Not on file documented as of this encounter Plan of Treatment Not on file documented as of this encounter Visit Diagnoses Not on filedocumented in this encounter Care Teams Market Master Relationship Specialty Start Date End Date Jhonathan Fisher MD PCP - General 02/24/15 documented as of this encounter
--- OUTSIDE RECORDS SUMMARY | 2024-04-16 15:31 | XMS_ITS | Clinical Summary ---
Author Organization [facility] Address [address] [place] [address] Phone Care Team Providers Care Slip Injector And Applicator Name Role Phone Jhonathan Fisher MD Primary Care Provider Opal ramírez Social History Tobacco Use Types Packs/Day Years Used Date Smoking Tobacco: Never Assessed Comments Unknown Sex and Gender Information Value Date Recorded Sex Assigned at Not on file Legal Sex Female 3:08 AM NURSES' REGISTRY DIRECTOR Gender Identity Not on file Sexual Orientation Not on file Plan of Treatment Health Maintenance Due Date Last Done Comments DTAP/TDAP/TD VACCINES (1 - Tdap) 1967 PNEUMOCOCCAL VACCINE 65+ YEARS (1 of 1 - PCV) 04/10/18 99 ZOSTER VACCINE (1 of 2) 1998 OSTEOPOROSIS SCREENING 2013 RSV VACCINE (60+ or ) (1 - 1-dose 75+ series) 2023 INFLUENZA VACCINE (#1) 2023 Insurance [facility] OPEN ACCESS HMO Care Teams Slip Injector And Applicator Relationship Specialty Start Date End Date Jhonathan Fisher MD PCP - General 02/24/15
--- OUTSIDE RECORDS SUMMARY | 2024-04-16 15:31 | XMS_ITS | Encounter Summary ---
Author Organization [facility] Address [address] [place] [address] Care Team Providers Care Infantry Assaultman Name Role Phone Yohan Barros DPM Unavailable [phone] Tamia Brooks MD Primary Care Provider [phone] Tamia Brooks MD Unavailable [phone] Reason for Visit * Reason Onset Date Comments Question 03/30/2024 Encounter Details Date Type Department Care Team (Late st Contact Info) Description 03/30/2024 Telephone [facility] Medical [facility] - Internal Medicine [address] [address] Tamia Brooks MD [address] [place] [address] Question Social History Tobacco Use Types [...] identifying themselves as Dr Brooks and from [facility]. Pt has tried blocking phone number butstates they have called on at least 30 different numbers. Pt is asking if there is anything that can be done or who she can report this to in order to stop these calls. VERY TRUCK DRIVER HEAVY * Telephone Encounter - Brenda Zambrano - [...] office to get back to them? NO VERY TRUCK DRIVER HEAVY documented in this encounter Plan of Treatment Upcoming Encounters Date Type Department Care Team (Late st Contact Info) Description 06/29/2024 10:00 AM CDT Office Visit [facility] - Internal Medicine [address] [place] [address] Tamia Brooks MD [address] [place] [phone] documented as of this encounter Goals Goal Patient Goal Type Associated Problems Recent Progress Patient-Stated? Author Blood Pressure < 140/90 Blood Pressure 130/70( 024 1:19 PM CDT) No Lola Neff MA documented as of this encounter Visit Diagnoses Not on filedocumented in this encounter Care Teams Infantry Assaultman Relationship Specialty Start Date End Date Tamia Brooks MD [address] [place] [phone] PCP - General Internal Medicine 07/26/16 Tamia Brooks MD [address] [facility] [address] [place] [phone] PCP - Attributed-MSSP 05/08/22 Yohan Barros DPM [address] [facility] [address] [place] [address] Podiatry 05/24/13 documented as of this encounter
[2024-04-16] MEDS: hydrALAZINE HCL 20 MG/ML VIAL 10 MG IV PUSH ×2 (16:51→19:19)
[2024-04-16 17:10] LABS: Basophils Absolute Auto 0.1 K/mm3 (0.0-0.1); Basophils Percent Auto 1.3 % (0.2-1.2); Eosinophils Absolute Auto 0.2 K/mm3 (0-0.3); Eosinophils Percent Auto 2.5 % (0-4.4); Hematocrit 41.6 % (37.0-47.0); Hemoglobin 13.4 g/dL (12.0-15.0); Immature Granulocyte Absolute 0.02 K/mm3 (0.00-0.031); Immature Granulocyte Percent A 0.3 % (0-0.5); Lymphocytes Percent Auto 27.7 % (18.3-44.2); Mean Corpuscular HGB Conc 32.2 g/dl (32-36); Mean Corpuscular Hemoglobin 29.5 pg (26-34); Mean Corpuscular Volume 91.6 fl (80-100); Mean Platelet Volume 10.9 fl (7.4-10.4); Monocytes Absolute Auto 0.8 K/mm3 (0.1-0.6); Monocytes Percent Auto 10.1 % (2.6-8.5); Neutrophils Absolute Auto 4.6 K/mm3 (1.3-6.7); Neutrophils Percent Auto 58.1 % (45.5-73.1); Platelet Count Result 239 k/mm3 (150-375); Red Blood Count 4.54 M/mm3 (4.2-5.4); Red Cell Distribution Width 13.6 % (11.5-14.5)
[2024-04-16 17:21] LABS: Partial Thromboplastin Time 24.3 Seconds (22.3-36.8); Prothrombin Time 13.2 Seconds (11.1-14.7)
[2024-04-16 17:36] LABS: Alanine Aminotransferase 26 U/L (6-35); Albumin Level 4.5 g/dL (3.5-5.1); Alkaline Phosphatase 112 U/L (38-126); Anion Gap 7 mmol/L (4-12); Aspartate Amino Transferase 29 U/L (14-36); Bilirubin,Total 0.5 mg/dL (0.2-1.3); Blood Urea Nitrogen 19 mg/dL (7-17); Calcium 9.5 mg/dL (8.4-10.2); Carbon Dioxide 30 mmol/L (22-30); Chloride 103 mmol/L (98-107); Estimated CRCL calculation 39 ml/min; Estimated Glomerular Filt Rate 45; Glucose 90 mg/dL (65-110); Potassium 4.5 mmol/L (3.4-5.0); Sodium 140 mmol/L (137-145)
[2024-04-16] MEDS: amLODIPine BESYLATE 2.5 MG TABLET PO (19:14)
[2024-04-16] MEDS: MORPHINE SULFATE (*CRX) 2 MG/ML INJ IV PUSH (19:38)
--- NOTE | 2024-04-16 19:38 | ED.GENADULT ---
HPI - General Adult General Chief complaint: Recheck/Abnormal Lab/Rx Stated complaint: high bp Time Seen by Provider: 04/16/24 15:27 History of Present Illness HPI narrative: 74-year-old female presented emergency department for evaluation of hypertension. Patient does have known hypertension and has been taking lisinopril. Patient noticed over the last few days her blood pressure has been more elevated. Patient attempted follow-up with primary care physician and she was referred to the emergency department. Patient does report associated headache with this. Patient is also complaining of right knee pain and this may be contributing to her elevated blood pressure. Patient denies any associated chest pain or shortness of breath. Patient was well-appearing at time of evaluation. Patient does have history chronic kidney disease who she follows up with Dr. Baltazar. Patient also has history of hypertension and obesity. Related Data Home Medications ?Medication ?Instructions ?Recorded ?Confirmed ?Last Taken ?Type glucosamine sulf dipot 1 cap PO DAILY 09/10/23 03/05/24 09/17/23 History chlr,msm,chond 550 mg-C 30 mg-samson 1 mg capsule (Glucosamine Chondroitin) rosuvastatin 10 mg tablet 10 mg PO HS 09/10/23 03/05/24 09/17/23 History Allergies Allergy/AdvReac Type Severity Reaction Status Date / Time propoxyphene AdvReac Unknown Nausea Verified 03/24/24 14:09 Review of Systems Review of Systems: All systems reviewed & are unremarkable except as noted in HPI and below PMFSH Past Medical History Medical History HLD (hyperlipidemia) History of COVID-19 GERD (gastroesophageal reflux disease) Social History Social History Years smoked: 25 Smoking status: Former smoker Tobacco type: cigarettes Living arrangements: with family Additional living arrangements comments: Resides in [place] for 2.5 months/year Spiritual care concerns: No Exam Narrative: APPEARANCE: Well appearing, no pain, no distress, well-nourished. HEAD: normocephalic, atraumatic. EYES: PERRLA/EOMI, conjunctivae clear. NOSE: Normal no drainage EARS:TMS clear with good light reflex. THROAT: Pharynx clear, no exudate. NECK: Supple. No adenopathy, no masses. RESPIRATORY: Airway patent, respirations nonlabored. Clear to auscultation bilaterally, no rales, rhonchi, wheezing. CARDIOVASCULAR: Regular rate and rhythm without murmurs rubs or gallops. ABDOMINAL: Soft, nontender, nondistended, normal bowel sounds MUSCULOSKELETAL: Moves all extremities. Strength/ROM intact, No edema, No calf tenderness. NEURO: Alert. Cranial nerves II through XII intact. Grossly intact SKIN: Warm, dry. Normal Color Course Vital Signs Vital signs: Vital Signs Temperature 97.7 F 04/16/24 10:47 Pulse Rate 99 04/16/24 10:47 Respiratory Rate 14 04/16/24 10:47 Blood Pressure 173/85 H 04/16/24 10:47 Pulse Oximetry 99 04/16/24 10:47 Oxygen Delivery Room Air 04/16/24 10:47 Temperature 97.2 F L 04/16/24 19:49 Pulse Rate 96 04/16/24 19:49 Respiratory Rate 16 04/16/24 19:49 Blood Pressure 152/60 H 04/16/24 19:49 Pulse Oximetry 98 04/16/24 19:49 Oxygen Delivery Room Air 04/16/24 14:49 Medical Decision Making MDM Narrative Medical decision making narrative: 74-year-old female presenting to the emergency department for evaluation for elevated blood pressure. Patient was treated with IV hydralazine and patient's blood pressure did improve and to 150 systolic. Time of evaluation patient denied having any headaches. Patient was afebrile with no leukocytosis and hemoglobin of 13.4. Patient has kidney function similar to her baseline. Head CT was negative for acute intracranial abnormality. EKG showed normal sinus rhythm with no acute findings. Attempted to get a hold of the patient's primary care physician and received no call back. Patient was started on amlodipine in the emergency department discharged home with amlodipine. Patient family were updated on reasons to the emergency department and on the importance of close follow-up with her primary care physician. All questions concerns were addressed. Differential Diagnosis Differential Diagnosis: Hypertensive emergency, hypertensive crisis, intracranial abnormality, hypertension Vital Signs Vital Signs: Vital Signs Temperature 97.7 F 04/16/24 10:47 Pulse Rate 99 04/16/24 10:47 Respiratory Rate 14 04/16/24 10:47 Blood Pressure 173/85 H 04/16/24 10:47 Pulse Oximetry 99 04/16/24 10:47 Oxygen Delivery Room Air 04/16/24 10:47 Temperature 97.2 F L 04/16/24 19:49 Pulse Rate 96 04/16/24 19:49 Respiratory Rate 16 04/16/24 19:49 Blood Pressure 152/60 H 04/16/24 19:49 Pulse Oximetry 98 04/16/24 19:49 Oxygen Delivery Room Air 04/16/24 14:49 Lab Data Lab results reviewed: Yes I reviewed the patient's lab results. 04/16/24 17:05 04/16/24 17:05 Labs: Lab Results 04/16/24 Range/Units 17:05 WBC 8.0 (4.5-10.0) K/mm3 RBC 4.54 (4.2-5.4) M/mm3 Hgb 13.4 (12.0-15.0) g/dL Hct 41.6 (37.0-47.0) % MCV 91.6 (80-100) fl MCH 29.5 (26-34) pg MCHC 32.2 (32-36) g/dl RDW 13.6 (11.5-14.5) % Plt Count 239 (150-375) k/mm3 MPV 10.9 H (7.4-10.4) fl Immature Gran % (Auto) 0.3 (0-0.5) % Neut % (Auto) 58.1 (45.5-73.1) % Lymph % (Auto) 27.7 (18.3-44.2) % [place] % (Auto) 10.1 H (2.6-8.5) % Eos % (Auto) 2.5 (0-4.4) % Baso % (Auto) 1.3 H (0.2-1.2) % Lymph # (Auto) 2.20 (0.9-3.2) K/mm3 [place] # (Auto) 0.8 H (0.1-0.6) K/mm3 Eos # (Auto) 0.2 (0-0.3) K/mm3 Baso # (Auto) 0.1 (0.0-0.1) K/mm3 Abs Immat Gran (auto) 0.02 (0.00-0.031) K/mm3 Absolute Neuts (auto) 4.6 (1.3-6.7) K/mm3 Absolute Nucleated RBC 0.000 (0.0-0.012) K/mm3 Nucleated RBC % 0.0 (0.0-0.2) % PT 13.2 (11.1-14.7) Seconds INR 1.0 APTT 24.3 (22.3-36.8) Seconds Sodium 140 (137-145) mmol/L Potassium 4.5 (3.4-5.0) mmol/L Chloride 103 (98-107) mmol/L Carbon Dioxide 30 (22-30) mmol/L Anion Gap 7 (4-12) mmol/L BUN 19 H (7-17) mg/dL Creatinine 1.18 H (0.7-1.0) mg/dL Estim Creat Clear Calc 39 ml/min Estimated GFR 45 L (59 - ) Glucose 90 (65-110) mg/dL Calcium 9.5 (8.4-10.2) mg/dL Total Bilirubin 0.5 (0.2-1.3) mg/dL AST 29 (14-36) U/L ALT 26 (6-35) U/L Alkaline Phosphatase 112 (38-126) U/L Total Protein 8.0 (6.3-8.2) g/dL Albumin 4.5 (3.5-5.1) g/dL Imaging Data Radiologist's impression: Impressions Head CT 04/16/24 18:50 Impression: No acute intracranial hemorrhage or suspicious mass effect. Discharge Plan Discharge Clinical Impression: HTN (hypertension) Patient Disposition: Home, Self-Care Condition: Stable Instructions: Antibiotic Form, Chronic Hypertension (ED) Additional Instructions: Start the amlodipine in the morning. Have close follow-up with your primary care physician. If you have any worsening symptoms then please call or return to the emergency department. Patient Language: Latvian Prescriptions: New amlodipine [Norvasc] 2.5 mg tablet 2.5 mg PO DAILY Qty: 14 0RF No Action lansoprazole 30 mg capsule,delayed release(DR/EC) 30 mg PO DAILY Qty: 90 3RF hydrocodone-acetaminophen 5-325 mg tablet 1 tablet PO Q8H PRN (Reason: pain) Qty: 10 0RF hydrocodone-acetaminophen 5-325 mg tablet 1 tablet PO Q8H PRN (Reason: pain) Qty: 10 0RF lisinopril 40 mg tablet 40 mg PO DAILY Qty: 30 0RF Rx Instructions: starting 06/11 (received first dose in ED 06/10) alum-mag hydroxide-simeth [Antacid] 200-200-20 mg/5 mL suspension 10 ml PO QID PRN (Reason: indigestion) Qty: 3000 0RF Rx Instructions: administer between meals and at bedtime rosuvastatin 10 mg tablet 10 mg PO HS Glucosamine Chondroitin 550-30-1 mg Capsule 1 cap PO DAILY Follow-up/Referrals: PHYSICIAN NOT ON STAFF,NONSTAFF [Primary Care Provider] -
== END 2024-04-16 20:59 | disposition home or self-care (01) ==
PROVIDERS: Emergency Provider Emergency Medicine
DX: I10 Essential (primary) hypertension (principal); E78.5 Hyperlipidemia, unspecified; K21.9 Gastro-esophageal reflux disease without esophagitis; Z87.891 Personal history of nicotine dependence; E66.9 Obesity, unspecified; Z68.31 Body mass index [BMI] 31.0-31.9, adult
CPT/HCPCS: 36415; 70450; 80053; 85025; 85610; 85730; 93005; 96374; 96375; 96376; 99284; A9270; J0360; J2270

== ENCOUNTER 2024-06-30 14:46 | Outpatient (CLI) | payer MEDICARE, OTHER, SELFPAY ==
--- NOTE | ~2024-06-30 | MM_ITS ---
EXAMINATION: MM screening yesy BI w marian HISTORY: Screening TECHNIQUE: Craniocaudal and mediolateral oblique 3-D tomosynthesis images were obtained and synthetic 2-D images were generated. CAD analysis was submitted and interpreted. COMPARISON: Comparison to multiple prior studies sequentially, with oldest reviewed study dated 4. BREAST PARENCHYMAL COMPOSITION: Dense: The breasts are heterogeneously dense, which may obscure small masses FINDINGS: There is no evidence of suspicious mass, calcification, or architectural distortion to sugg est malignancy in either breast. There has been no suspicious interval change. IMPRESSION: 1. No mammographic evidence of malignancy. 2. Recommend routine screening mammography in one year. BI-RADS Category 1: Negative Reviewed, dictated and finalized at location A.
== END 2024-06-30 14:47 | disposition home or self-care (01) ==
LOC: MICIMG 14:48
DX: Z12.31 Encounter for screening mammogram for malignant neoplasm of breast (principal)
CPT/HCPCS: 77063; 77067

== ENCOUNTER 2024-07-08 02:05 | Day surgery (SDC) | payer MEDICARE, OTHER, SELFPAY ==
[2024-04-27 14:52] VITALS: BMI 31.0
--- NOTE | 2024-04-27 15:24 | PC.NURSE ---
Report to the Outpatient Waiting Room, entrance under the green pavilion located off [facility], at time __1:00PM on date ____05/10/24___. Planned Procedure Time: ___3:00PM .? Time changes happen often and if your time is changed the preop area will call you the afternoon before. - You and your visitor will be asked to self-screen and do not enter if you have any COVID symptoms. Please call surgeon if you need to reschedule. - A mask is optional within the hospital at this time. Patients may have clear liquids (water, carbonated beverages, clear teas, apple juice) until 3 hours prior to surgery (12:00PM) with a maximum of 20 ounces. - No food from midnight until time of surgery and no smoking, or chewing tobacco (or any form of nicotine). No chewing gum, candy or mints. Take only the following medications with a SIP of water on the morning of surgery: AMLODIPINE, CARVEDILOL DO NOT STOP ANY OF YOUR OTHER PRESCRIPTION MEDICATIONS PRIOR TO SURGERY EXCEPT THE FOLLOWING Hold all vitamins and supplements for 3 days per anesthesiologist.- LAST DOSE 05/06/24. Medications to discontinue per physician __HOLD ASPIRIN 7 DAYS PRE-OP PER DR MANUEL Date to take last dose____05/02/24. Please no make-up, nail nigerien, hairspray, perfume, deodorant, or body powder the day of surgery.? No jewelry (including any body piercings) or valuables the day of surgery, leave them at home.? Please take a shower or bath the night before, or the morning of, surgery with an antibacterial soap.? Wear comfortable, loose fitting clothing.? - Jewelry must be removed prior to entering the operating room.? Rings and piercings that are not removed may be cut off. - The hospital will not accept responsibility for valuables.? - Please leave all valuables, including medications, at home the day of surgery. If you are going home after surgery, a licensed tram driver must drive you home.? - NO public transportation without another adult if you receive anesthesia. - We recommend that an adult stay with you for 24 hours following discharge. - We also recommend that you do not drive, make important decision, drink alcoholic beverages, or take any drugs that were not prescribed by your health care provider for at least 24 hours after your discharge time. Follow any additional instructions given to you from your surgeon. Telephone instructions given to ___PATIENT & HUSBAND and asked if any additional questions and then verbalized understanding. Patient advised to call surgeon office or pre surgery nurse liaison [phone] if any additional questions.
--- OUTSIDE RECORDS SUMMARY | 2024-05-10 01:22 | XMS_ITS | Encounter Summary ---
Author Organization [facility] Address [address] [facility] [place] [address] Care Team Providers Care Tubing Machine Tender Name Role Phone Yohan Barros DPM Unavailable [phone] Tamia Brooks MD Primary Care Provider Tamia Brooks MD Unavailable [phone] Encounter Details Date Type Department Care Team (Late Contact Info) Description 05/06/2024 Orders Only [facility] - Internal Medicine [address] [address] Shayla España, MANAGER FACILITY-[facility] [address] [place] [address] Hypertension, benign essential Social History Tobacco Use Types Packs/Day Years Used Date Smoking Tobacco: Former Cigarettes 0.2 12 0 03/10/1978 - 03/10/1990 Smokeless Tobacco: Never Alcohol Use Standard Drinks/Week Comments Yes 0 (1 standard drink = 0.6 oz pur e alcohol) occ PHQ-2 Answer Date Recorded Patient Health Questionnaire-2 Score 0 04/29/2024 Sex and Gender Information Value Date Recorded Sex Assigned at Not on file Gender Identity Female 11/22/2016 11:14 AM CDT Sexual Orientation Not on file documented as of this encounter Plan of Treatment Upcoming Encounters Date Type Department Care Team (Late Contact Info) Description 06/29/2024 10:00 AM CDT Office Visit [facility] - Internal Medicine [address] [facility] [address] [place] [address] [place] [address] [place] [address] [place] [phone] documented as of this encounter Goals Goal Patient Goal Type Associated Problems Recent Progress Patient-Stated? Author Blood Pressure < 140/90 Blood Pressure 140/70( 025 8:13 AM SLACK COOPER) Lola Serna MA documented as of this encounter Procedures Procedure Name Priority Date/Time Associated Diagnosis Comments EKG 12-LEAD Routine 04/29/2024 Hypertension, benign essential documented in this encounter Results * EKG 12-LEAD (04/29/2024) 04/29/2024 Shayla España MANAGER FACILITY-PMO MANAGER ECG ORDERABLES documented in this encounter Visit Diagnoses Diagnosis Hypertension, benign essential Essential hypertension, benign documented in this encounter Care Teams Tubing Machine Tender Relationship Specialty Start Date End Date Tamia Brooks MD [address] [place] [address] [address] [place] [address] PCP - General Internal Medicine 07/26/16 Tamia Brooks MD [address] [place] [address] [place] [phone] PCP - Attributed-MSSP 05/08/22 Yohan Barros, [place] [address] [place] [address] [place], [place] [id number] Podiatry 05/24/13 documented as of this encounter
--- OUTSIDE RECORDS SUMMARY | 2024-05-10 01:22 | XMS_ITS | Encounter Summary ---
Author Organization [facility] Address [address] [facility] [place] [address] Care Team Providers Care Policy Adviser Name Role Phone Yohan Barros DPM Unavailable [phone] Tamia Brooks MD Primary Care Provider [phone] Tamia Brooks MD Unavailable [phone] Reason for Visit * Reason Onset Date Comments Blood Pressure 04/26/2024 Encounter Details Date Type Department Care Team (Late st Contact Info) Description 04/26/2024 Telephone [facility] Medical [facility] - Internal Medicine [address] [address] Tamia Brooks MD [address] [place] [phone] Blood Pressure Social History Tobacco Use Types Packs/Day Years [...] Telephone Encounter - Tamia Brooks MD - 04/26/2024 4:27 PM CST Add coreg 6.25 mg BID. Orders Placed This Encounter carvedilol (Coreg) 6.25 MG tablet Sig: Take 1 (one) tablet by mouth 2 times daily with morning and evening meal Dispense: 60 tablet Refill: 1 TRUST MANAGER * Telephone Encounter - Audra Bernal - 04/26/2024 2:14 PM CST BP readings after starting Amlodopine: 04/19 - pre PT 154/81 pulse 110, post PT 142/82 pulse 90, BT 182/110 pulse 86 04/20 - am 149/90 pulse 91, pm 176/107 pulse 87 04/21 - am 150/88 pulse 86, pm 175/91 pulse 85 04/22 - am 175/84 pulse 101, pm 174/85 pulse 102 04/23 - am 158/89 pulse 85, pm 187/96 pulse 94 04/24 - am 171/95 pulse 86, pm 194/91 pulse 92 /16 - am 136/79 pulse 86, pm 177/94 pulse 95 / - 9 am 150/88 pulse 71, 1021 am before PT 129/82 pulse 98, after PT 119/77 pulse 99 TRUST MANAGER documented in this encounter Plan of Treatment Upcoming Encounters Date Type Department Care Team (Late st Contact Info) Description 06/29/2024 10:00 AM CDT Office Visit [facility] - Internal Medicine [address] [place] [address] [place] [address] Tamia Brooks MD [address] [place] [phone] documented as of this encounter Goals Goal Patient Goal Type Associated Problems Recent Progress Patient-Stated? Author Blood Pressure < 140/90 Blood Pressure 140/70( 025 8:13 AM UNIT TRUST MANAGER) No Lola Neff MA documented as of this encounter Visit Diagnoses Diagnosis Benign essential hypertension- Primary Essential hypertension, benign documented in this encounter Care Teams Policy Adviser Relationship Specialty Start Date End Date Tamia Brooks MD [address] [place] [address] PCP - General Internal Medicine 07/26/16 Tamia Brooks MD [address] [place] [address] PCP - Attributed-MSSP 05/08/22 Yohan Barros, DPM [address] [place] [address] [place] [phone] Podiatry 05/24/13 documented as of this encounter
--- OUTSIDE RECORDS SUMMARY | 2024-05-10 01:23 | XMS_ITS | Encounter Summary ---
Author Organization [facility] Address [address] [facility] [place] [address] Care Team Providers Care Fisher Crab Name Role Phone Yohan Barros DPM Unavailable [phone] Tamia Brooks MD Primary Care Provider [phone] Tamia Brooks MD Unavailable [phone] Reason for Visit * Reason Onset Date Comments Question 03/30/2024 Encounter Details Date Type Department Care Team (Late st Contact Info) Description 03/30/2024 Telephone [facility] Medical [facility] - Internal Medicine [address] [address] Tamia Brooks MD [address] [place] [phone] Question Social History Tobacco Use Types [...] identifying themselves as Dr Brooks and from [facility]. Pt has tried blocking phone number butstates they have called on at least 30 different numbers. Pt is asking if there is anything that can be done or who she can report this to in order to stop these calls. GER HRIS * Telephone Encounter - Brenda Zambrano - [...] office to get back to them? NO GER HRIS documented in this encounter Plan of Treatment Upcoming Encounters Date Type Department Care Team (Late st Contact Info) Description 06/29/2024 10:00 AM CDT Office Visit [facility] - Internal Medicine [address] [place] [phone] Tamia Brooks MD [address] [place] [phone] documented as of this encounter Goals Goal Patient Goal Type Associated Problems Recent Progress Patient-Stated? Author Blood Pressure < 140/90 Blood Pressure 140/70( 025 8:13 AM MANAGER HRIS) No Lola Neff MA documented as of this encounter Visit Diagnoses Not on filedocumented in this encounter Care Teams Fisher Crab Relationship Specialty Start Date End Date Tamia Brooks MD [address] [place] [phone] PCP - General Internal Medicine 07/26/16 Tamia Brooks MD [address] [facility] [address] [place] [phone] PCP - Attributed-MSSP 05/08/22 Yohan Barros DPM [address] [facility] [address] [place] [address] Podiatry 05/24/13 documented as of this encounter
--- OUTSIDE RECORDS SUMMARY | 2024-05-10 01:23 | XMS_ITS | Encounter Summary ---
Author Organization [employer] Address [address] [place] [address] Care Team Providers Care Bpm Developer Name Role Phone Jhonathan Fisher MD [...] on file Legal Sex Female 3:08 AM COMPENSATION SUPERVISOR Gender Identity Not on file Sexual Orientation Not on file documented as of this encounter Plan of Treatment Not on file documented as of this encounter Visit Diagnoses Diagnosis Other screening mammogram- Primary documented in this encounter Care Teams Bpm Developer Relationship Specialty Start Date End Date Jhonathan Fisher MD PCP - General 02/24/15 documented as of this encounter
--- OUTSIDE RECORDS SUMMARY | 2024-05-10 01:23 | XMS_ITS | Encounter Summary ---
Author Organization [facility] Address [address] [place] [address] Care Team Providers Care Snack Foods Mixer Operator Name Role Phone Jhonathan Fisher MD [...] file Legal Sex Female 3:08 AM IN FLIGHT TECHNICIAN Gender Identity Not on file Sexual Orientation Not on file documented as of this encounter Plan of Treatment Not on file documented as of this encounter Visit Diagnoses Diagnosis Other screening mammogram- Primary documented in this encounter Care Teams Snack Foods Mixer Operator Relationship Specialty Start Date End Date Jhonathan Fisher MD PCP - General 02/24/15 documented as of this encounter
--- OUTSIDE RECORDS SUMMARY | 2024-05-10 01:23 | XMS_ITS | Encounter Summary ---
Author Organization [facility] Address [address] [place]: Epic Prelude ADT [place] [address] Care Team Providers Care [employer] Nurse Name Role Phone Jhonathan Fisher MD Primary Care Provider Opal ramírez Encounter Details Date Type Department Care Team (Late st Contact Info) Description 12/10/1995 Outpatient Historical Conversion, History Social History Tobacco Use Types Packs/Day Years Used Date Smoking Tobacco: Never Assessed Comments Unknown Sex and Gender Information Value Date Recorded Sex Assigned at Not on file Legal Sex Female 3:08 AM ALLIANCE DIRECTOR Gender Identity Not on file Sexual Orientation Not on file documented as of this encounter Plan of Treatment Not on file documented as of this encounter Visit Diagnoses Not on filedocumented in this encounter Care Teams [employer] Nurse Relationship Specialty Start Date End Date Jhonathan Fisher MD PCP - General 02/24/15 documented as of this encounter
--- OUTSIDE RECORDS SUMMARY | 2024-05-10 01:23 | XMS_ITS | Referral Summary ---
Author Organization [facility] Address [address] [place] [address] Care Team Providers Care Supervisor Fireworks Assembly Name Role Phone Yohan Barros DPM Unavailable [phone] Tamia Brooks MD Primary Care Provider [phone] Tamia Brooks MD Unavailable [phone] Source Comments [facility],non-owned Affiliates and Associated Physician Practices is amultiple site organization consisting of ambulatory clinics and hospital sitesin [place], [place], [place] and [place]. This disclosure is being madepursuant to the Care Everywhere program and may not contain all information available regarding this patient. Last updated 17.[facility] Encounters Date Type Department Care Team Description 05/07/2024 7:41 AM STEAM HEATING INSTALLER - 05/07/2024 11:59 PM STEAM HEATING INSTALLER Hospital Encounter [facility] [address] [place] [address], [address] [place] [address] Shayla España APRN-MIKE Discharge Disposition: Home or Self Care 05/06/2024 Orders Only [facility] [address] [place] [address] [address] [place] [phone] Shayla España APRN-CATERING ASSOCIATE Hypertension, benign essential 04/29/2024 Telephone [facility] - Internal Medicine [address] [place] [address] [address] [place] [phone] Tamia Brooks MD Update 04/29/2024 1:40 PM STEAM HEATING INSTALLER Office Visit [facility] [address] [place] [phone] Shayla España, BRUSH MATERIAL PREPARER-CATERING ASSOCIATE Hypertension, benign essential (Primary Dx); Abnormal EKG; Fatigue, unspecified type 04/26/2024 Telephone [facility] [address] [place] [phone] Tamia Brooks MD Blood Pressure 04/19/2024 Telephone [facility] [address] [place] [phone] Tamia Brooks MD Blood Pressure 04/16/2024 Telephone [facility] [address] [place] [phone] Tamia Brooks MD Hypertension 04/13/2024 Refill [facility] [address] [place] [phone] Tamia Brooks MD MEDICATION REFILL 03/30/2024 Telephone [facility] [address] [place] [phone] Tamia Brooks MD Question 03/24/2024 Telephone [facility] [address] [place] [phone] Tamia Brooks MD Question 03/05/2024 Patient Outreach [facility] - Care Coordination [address] [place] [address] Lelo Pichardo Outreach Preventive Care from Last 3 Months Allergies Active Allergy [...] disease, without long-term current use of insulin ([facility]) Use 1 (one) strip as directed 100 strip 3 Active Additional Information Patient not taking.Reported on 04/29/2024 rosuvastatin (Crestor) 10 MG tabletIndications: Mixed hyperlipidemia TAKE 1 TABLET DAILY 90 tablet 3 4 Active metoclopramide (Reglan) 10 MG tabletIndications: Gastroesophageal reflux disease, unspecified whether esophagitis present Take 1 (one) tablet by mouth 3 times daily before meals 90 tablet 4 4 Active Additional Information Patient not taking.Reported on 04/29/2024 sucralfate (Carafate) 1 GM tabletIndications: Gastroesophageal reflux disease, unspecified whether esophagitis present Take 1 (one) tablet by mouth 4 times daily as needed 45 tablet 2 4 Active Additional Information Patient not taking.Reported on 04/29/2024 methylPREDNISolone (Medrol Dosepak) 4 MG tablet Take by mouth as directed Take as directed by mouth per package instructions. 21 tablet 4 Active Additional Information Patient not taking.Reported on 04/29/2024 lansoprazole (Prevacid) 15 MG capsuleIndications :Gastroesophageal reflux disease, unspecified whether esophagitis present TAKE 1 TO 2 CAPSULES ONCE DAILY TO IMPROVE HEARTBURN SYMPTOMS FOR GASTROESOPHAGEAL REFLUX DISEASE 180 capsule 3 4 Active Additional Information Patient not taking.Reported on 04/29/2024 lisinopril (Prinivil; Zestril) 40 MG tabletIndications: Benign essential hypertension,Stage 3b chronic kidney disease (HCC) Take 1 (one) tablet by mouth once daily 30 tablet 1 5 Active amLODIPine (Norvasc) 10 MG tabletIndications: Hypertension Take 1 (one) tablet by mouth once daily Reasons: High Blood Pressure 30 tablet 1 5 Active carvedilol (Coreg) 6.25 MG tabletIndications: Benign essential hypertension Take 1 (one) tablet by mouth 2 times daily with morning and evening meal 60 tablet 1 5 Active lisinopril (Prinivil; Zestril) 40 MG tabletIndications: Benign essential hypertension,Stage 3b chronic kidney disease (HCC) TAKE 1 TABLET DAILY 90 tablet 1 4 04/13/19 25 Discontin ued(Reord er) lisinopril (Prinivil; Zestril) 40 MG tabletIndications: Benign essential hypertension,Stage 3b chronic kidney disease (HCC) Take 1 (one) tablet by mouth once daily 90 tablet 1 5 04/19/19 25 Discontin ued(Reord er) amLODIPine (Norvasc) 10 MG tabletIndications: Hypertension Take 1 (one) tablet by mouth once daily Reasons: High Blood Pressure 90 tablet 1 5 04/19/19 25 Discontin ued(Reord er) Active Problems Problem [...] Sign Reading Time Taken Comments Blood Pressure 140/70 05/07/2024 8:13 AM STEAM HEATING INSTALLER Pulse 64 04/29/2024 12:55 PM STEAM HEATING INSTALLER Temperature 36.2 C (97.1 F) 04/29/2024 12:55 PM STEAM HEATING INSTALLER Respiratory Rate 16 04/23/2018 1:13 PM STEAM HEATING INSTALLER Oxygen Saturation 97% 04/29/2024 12:55 PM STEAM HEATING INSTALLER Inhaled Oxygen Concentration - - Weight 90.7 kg (200 lb) 05/07/2024 8:13 AM STEAM HEATING INSTALLER Height 165.1 cm (5' 5 ) 05/07/2024 8:13 AM STEAM HEATING INSTALLER Body Mass Index 33.28 05/07/2024 8:13 AM STEAM HEATING INSTALLER Plan of Treatment Upcoming Encounters Date Type Department Care Team (Late st Contact Info) Description 06/29/2024 10:00 AM CDT Office Visit [facility] - Internal Medicine [address] [place] [address] Tamia Brooks MD [address] [facility] [address] [place] [address] Goals Goal Patient Goal Type Associated Problems Recent Progress Patient-Stated? Author Blood Pressure < 140/90 Blood Pressure 140/70( 025 8:13 AM STEAM HEATING INSTALLER) Lola Serna MA Procedures Procedure Name Priority Date/Time Associated Diagnosis Comments ECHO COMPLETE W CONTRAST Routine 05/07/2024 8:22 AM STEAM HEATING INSTALLER Hypertension, benign essential Abnormal EKG EKG 12-LEAD Routine 04/29/2024 Hypertension, benign essential HEMOGLOBIN A1C - POINT OF CARE (AMB) [...] DENSITY AXIAL SKELETON Routine 03/17/2019 10:46 AM STEAM HEATING INSTALLER Asymptomatic menopausal state Osteopenia, unspecified location HEPATITIS C ANTIBODY Routine 09/26/2016 8:02 AM CDT Need for hepatitis C screening test from Last 3 Months or Most Recently Relevant to Health Maintenance Results * ECHO COMPLETE W CONTRAST (05/07/2024 8:22 AM STEAM HEATING INSTALLER) IVSd 2D 0.988 cm SSM CV FUJ I PACS LVIDd 3.783 cm SSM CV FUJ I PACS LVIDs 2.471 cm SSM CV FUJ I PACS LVOT diam 1.884 cm SSM CV FUJ I PACS LVPWd 1.014 cm SSM CV RUST I PACS LV biplane EF 63.769 % SSM CV FUJI PACS LV A2C EF 63.444 % SSM CV FUJ I PACS LV A4C EF 62.302 % SSM CV FUJ I PACS LV EDV A2C 72.02 ml SSM CV FU JI PACS LV EDV A4C 91.249 ml SSM CV FU JI PACS LV ESV A2C 26.328 ml SSM CV FU JI PACS LV ESV A4C 34.399 ml SSM CV FU JI PACS LVOT pk grad 6.369 mmHg SSM CV RUSTI PACS LVOT pk eduardo 126.185 cm/s SSM CV F UJI PACS LVOT VTI 29.958 cm SSM CV RUST I PACS LA size 3.596 cm SSM CV RUST I PACS LA vol BP 48.519 ml SSM CV RUST I PACS RA area 14.013 cm SSM CV RUSTI PACS AV area pk eduardo 1.762 cm SSM CV RUSTI PACS AV area cont VTI 1.792 cm SSM CV RUSTI PACS AV pk grad 15.926 mmHg SSM CV FU JI PACS AV mn grad 9.823 mmHg SSM CV FU JI PACS AV pk eduardo 199.537 cm/s SSM CV RUST I PACS AV VTI 46.596 cm SSM CV RUST I PACS MV A pk eduardo 150.3 cm/s SSM CV F U PACS MV E pk eduardo 140.234 cm/s SSM CV F UJI PACS MV E' lateral eduardo 6.126 cm/s SS M CV RUSTI PACS MV mn grad 3.53 mmHg SSM CV FU JI PACS MV VTI 62.452 cm SSM CV RUST I PACS TAPSE 2.011 cm SSM CV RUST I PACS TR pk eduardo 206.874 cm/s SSM CV RUST I PACS Ascending aorta 3.197 cm SSM CV FUJI PACS IVC Diam Expiration 1.897 cm SSM CV FUJI PACS AV area index 0.864 cm /m SSM CV FUJI PACS LA vol index 0.023 l/m SSM CV FUJI PACS Dimensionless Index 0.643 unitless SSM CV FUJI PACS Myocardial strain charge 2 unitless SSM CV FUJI PACS Anatomical Region Laterality Modality Ultrasound 05/07/2024 8:04 AM STEAM HEATING INSTALLER Narrative 05/07/2024 10:06 AM STEAM HEATING INSTALLER Summary * The left ventricle is normal in size. * Left ventricular systolic function is normal with an estimated ejection fraction of 64% by biplane method of disks. * Left ventricular segmental wall motion is normal. * Left ventricular wall thickness is borderline increased. * The left ventricular diastolic function is consistent with grade I diastolic dysfunction. * The right ventricle is normal in size. * Right ventricular systolic function is normal. * There is mild mitral annular calcification. * There is mild mitral valve stenosis. Mean gradient 3-4 mmHg at HR 61 bpm. * There is mild mitral valve regurgitation. Patient Info Name: Maura Watkins Age: 74 years : 1950 Gender: Female Ht: 65 in Wt: 200 lb BSA: 2.07 m2 HR: 55 bpm BP: 140 / 70 mmHg Exam Date: 05/07/2024 8:04 AM Patient Status: O/P Study Site: [facility] Primary Location: [facility] EStudy Info Technical Quality: Adequate Exam Type: ECHO COMPLETE W CONTRAST Indications I10 - Benign essential hypertension R94.31 - Abnormal EKG Procedure(s) * A complete 2D, color Doppler, spectral Doppler, and M-Mode transthoracic echocardiogram was performed. * An Ultrasound Enhancing Agent (UEA) was utilized to enhance endocardial definition, opacify the left ventricle and further assess left ventricular function and wall motion. Contrast/Agitated Saline Contrast / Saline: Definity Amount: --- ml Reaction to Contrast: no Staff Referring Physician: Shayla España Ordering Provider: Shayla España Attending Physician: Shayla España Yarn Mercerizer Operator: Essie Toribio Left Ventricle The left ventricle is normal in size. Left ventricular systolic function is normal with an estimated ejection fraction of 64% by biplane method of disks. Left ventricular segmental wall motion is normal. Left ventricular wall thickness is borderline increased. The left ventricular diastolic function is consistent with grade I diastolic dysfunction. Right Ventricle The right ventricle is normal in size. Right ventricular systolic function is normal. Left Atrium The left atrium is normal in size with a left atrial volume index of 23 ml/m2 by BP MOD. Right Atrium The right atrium is normal in size. Atrial Septum Intact interatrial septum visualized by 2D and color Doppler imaging. Aortic Valve The aortic valve is trileaflet. There is no aortic valve stenosis. There is no aortic valve regurgitation. Pulmonic Valve The pulmonic valve is normal. There is no pulmonic regurgitation. Mitral Valve The mitral valve is normal. There is mild mitral annular calcification. There is mild mitral valve stenosis. Mean gradient 3-4 mmHg at HR 61 bpm. There is mild mitral valve regurgitation. Tricuspid Valve The tricuspid valve is normal. There is trace tricuspid valve regurgitation. Unable to calculate the pulmonary artery systolic pressure due to a lack of tricuspid regurgitation. Inferior Vena Cava Inferior vena cava is not well visualized. Pericardium/Pleural There is no pericardial effusion. Aorta The aortic root at the sinus of Valsalva is normal in size. The ascending aorta is normal in size. Measurements Left Ventricular Outflow Tract Name Value Normal LVOT 2D LVOT Diameter 1.9 cm LVOT Area 2.8 cm2 LVOT Doppler LVOT Peak Velocity 1.3 m/s LVOT Peak Gradient 6 mmHg LVOT Mean Velocity 90.48 cm/s LVOT Mean Gradient 4 mmHg LVOT VTI 30.0 cm LVOT VTI/AV VTI Ratio 0.6 LVOT Stroke Volume 83 ml LVOT Stroke Volume Index 40 ml/m2 35-58 LVOT CO 4.6 l/min LVOT CI 2.2 l/min/m2 Mitral Valve Name Value Normal MV Doppler MV Peak Gradient 13 mmHg MV Mean Gradient 4 mmHg MV DI (VTI) 2.08 MV PHT 133 ms MV Area (PHT) 1.66 cm2 4.00-5.00 MV Area (Cont Eq VTI) 1.34 cm2 MV Diastolic Function MV E Peak Velocity 1.4 m/sec MV A Peak Velocity 1.5 m/sec MV E/A 0.9 MV Decel Time (PW) 457 ms MV Annular TDI MV Septal e' Velocity 5 cm/s >=8 MV E/e' (Septal) 26 <=8 MV Lateral e' Velocity 6 cm/s >=10 MV E/e' (Lateral) 23 <=8 MV e' Average 6 cm/s MV E/e' (Average) 24 Tricuspid Valve Name Value Normal TV Regurgitation Doppler TR Peak Velocity 2.1 m/s TR Peak Gradient 17 mmHg TV Annular TDI TV Lateral Jessica s' Velocity 11 cm/s 10-19 Aorta Name Value Normal Ascending Aorta Ao Root Diameter (2D) 2.8 cm Ao Root Diam Index (2D) 1.3 cm/m2 Asc Ao Diameter 3.2 cm 1.9-3.5 Asc Ao Diameter Index 1.5 cm/m2 1.0-2.2 Venous Name Value Normal IVC/SVC IVC Diameter 1.9 cm <=2.1 Aortic Valve Name Value Normal AV Doppler AV Peak Velocity 2.00 m/s AV Peak Gradient 16 mmHg AV Mean Gradient 10 mmHg AV VTI 47 cm AV Area (Cont Eq VTI) 1.79 cm2 >=2.00 AV Area (Cont Eq Eduardo) 1.76 cm2 AV DI (VTI) 0.64 AV DI (Eduardo) 0.63 AV Regurgitation 2D LVOT Area 2.79 cm2 Ventricles Name Value Normal LV Dimensions 2D/MM IVS Diastolic Thickness (2D) 1.0 cm 0.6-0.9 LVID Diastole (2D) 3.8 cm 3.8-5.2 LVPW Diastolic Thickness (2D) 1.0 cm 0.6-0.9 LVID Systole (2D) 2.5 cm 2.2-3.5 LV Mass (2D Cubed) 117 g 67-162 LV Mass Index (2D Cubed) 56 g/m2 43-95 Relative Wall Thickness (2D) 0.54 <=0.42 LV Fractional Shortening/Ejection Fraction 2D/MM LV Fractional Shortening (2D) 35 % 27-45 LV EF (2D Teicholz) 65 % 54-74 LV Diastolic Volume (4C MOD) 91 ml LV EF (4C MOD) 62 % LV Diastolic Volume (2C MOD) 72 ml LV EF (2C MOD) 63 % LV Diastolic Volume (BP MOD) 84 ml 46-106 LV Diastolic Volume Index (BP MOD) 41 ml/m2 29-61 LV Systolic Volume (BP MOD) 31 ml 14-42 LV Systolic Volume Index (BP MOD) 15 ml/m2 8-24 LV EF (BP MOD) 64 % 54-74 LV Diastolic Length (4C) 7.5 cm LV Systolic Length (4C) 6.1 cm LV Stroke Volume (4C MOD) 57 ml RV Dimensions 2D/MM TAPSE 2.0 cm >=1.7 Atria Name Value Normal LA Dimensions LA Dimension (2D) 3.6 cm 2.7-3.8 LA Dimen Index (2D) 1.7 cm/m2 LA Volume (BP MOD) 49 ml LA Volume Index (BP MOD) 23 ml/m2 16-34 RA Dimensions RA Area (4C) 14 cm2 <=18 RA Area (4C) Index 7 cm2/m2 RA ESV (4C MOD) 32 ml 15-27 RA ESV Index (4C MOD) 15 ml/m2 16-34 Report Signatures Finalized by Jada Ellis on 05/07/2024 10:06 AM Procedure Note Jada Ellis DO - 05/07/2024 Summary * The left ventricle is normal in size. * Left ventricular systolic function is normal with an estimatedejection fraction of 64% by biplane method of disks. * Left ventricular segmental wall motion is normal. * Left ventricular wall thickness is borderline increased. * The left ventricular diastolic function is consistent with grade I diastolic dysfunction. * The right ventricle is normal in size. * Right ventricular systolic function is normal. * There is mild mitral annular calcification. * There is mild mitral valve stenosis. Mean gradient 3-4 mmHg at HR 61bpm. * There is mild mitral valve regurgitation. Patient Info Name: Maura Watkins Age: 74 years : 1950 Gender: Female Ht: 65 in Wt: 200 lb BSA: 2.07 m2 HR: 55 bpm BP: 140 / 70 mmHg Exam Date: 05/07/2024 8:04 AM Patient Status: O/P Study Site: [facility] Primary Location: [facility] EStudy Info Technical Quality: Adequate Exam Type: ECHO COMPLETE W CONTRAST Indications I10 - Benign essential hypertension R94.31 - Abnormal EKG Procedure(s) * A complete 2D, color Doppler, spectral Doppler, and M-Modetransthoracic echocardiogram was performed. * An Ultrasound Enhancing Agent (UEA) was utilized to enhanceendocardial definition, opacify the left ventricle and further assess leftventricular function and wall motion. Contrast/Agitated Saline Contrast / Saline: Definity Amount: --- ml Reaction to Contrast: no Staff Referring Physician: Shayla España Ordering Provider: Shayla España Attending Physician: Shayla España Yarn Mercerizer Operator: Essie Toribio Left Ventricle The left ventricle is normal in size. Left ventricular systolic functionis normal with an estimated ejection fraction of 64% by biplane method ofdisks. Left ventricular segmental wall motion is normal. Left ventricular wall thickness is borderline increased. The left ventricular diastolic functionis consistent with grade I diastolic dysfunction. Right Ventricle The right ventricle is normal in size. Right ventricular systolicfunction is normal. Left Atrium The left atrium is normal in size with a left atrial volume index of23 ml/m2 by BP MOD. Right Atrium The right atrium is normal in size. Atrial Septum Intact interatrial septum visualized by 2D and color Doppler imaging. Aortic Valve The aortic valve is trileaflet. There is no aortic valve stenosis. Thereis no aortic valve regurgitation. Pulmonic Valve The pulmonic valve is normal. There is no pulmonic regurgitation. Mitral Valve The mitral valve is normal. There is mild mitral annularcalcification. There is mild mitral valve stenosis. Mean gradient 3-4 mmHg at HR 61bpm. There is mild mitral valve regurgitation. Tricuspid Valve The tricuspid valve is normal. There is trace tricuspid valveregurgitation. Unable to calculate the pulmonary artery systolic pressure due to a lackof tricuspid regurgitation. Inferior Vena Cava Inferior vena cava is not well visualized. Pericardium/Pleural There is no pericardial effusion. Aorta The aortic root at the sinus of Valsalva is normal in size. Theascending aorta is normal in size. Measurements Left Ventricular Outflow Tract Name Value Normal LVOT 2D LVOT Diameter 1.9 cm LVOT Area 2.8 cm2 LVOT Doppler LVOT Peak Velocity 1.3 m/s LVOT Peak Gradient 6 mmHg LVOT Mean Velocity 90.48 cm/s LVOT Mean Gradient 4 mmHg LVOT VTI 30.0 cm LVOT VTI/AV VTI Ratio 0.6 LVOT Stroke Volume 83 ml LVOT Stroke Volume Index 40 ml/m2 35-58 LVOT CO 4.6 l/min LVOT CI 2.2 l/min/m2 Mitral Valve Name Value Normal MV Doppler MV Peak Gradient 13 mmHg MV Mean Gradient 4 mmHg MV DI (VTI) 2.08 MV PHT 133 ms MV Area (PHT) 1.66 cm2 4.00-5.00 MV Area (Cont Eq VTI) 1.34 cm2 MV Diastolic Function MV E Peak Velocity 1.4 m/sec MV A Peak Velocity 1.5 m/sec MV E/A 0.9 MV Decel Time (PW) 457 ms MV Annular TDI MV Septal e' Velocity 5 cm/s >=8 MV E/e' (Septal) 26 <=8 MV Lateral e' Velocity 6 cm/s >=10 MV E/e' (Lateral) 23 <=8 MV e' Average 6 cm/s MV E/e' (Average) 24 Tricuspid Valve Name Value Normal TV Regurgitation Doppler TR Peak Velocity 2.1 m/s TR Peak Gradient 17 mmHg TV Annular TDI TV Lateral Jessica s' Velocity 11 cm/s 10-19 Aorta Name Value Normal Ascending Aorta Ao Root Diameter (2D) 2.8 cm Ao Root Diam Index (2D) 1.3 cm/m2 Asc Ao Diameter 3.2 cm 1.9-3.5 Asc Ao Diameter Index 1.5 cm/m2 1.0-2.2 Venous Name Value Normal IVC/SVC IVC Diameter 1.9 cm <=2.1 Aortic Valve Name Value Normal AV Doppler AV Peak Velocity 2.00 m/s AV Peak Gradient 16 mmHg AV Mean Gradient 10 mmHg AV VTI 47 cm AV Area (Cont Eq VTI) 1.79 cm2 >=2.00 AV Area (Cont Eq Eduardo) 1.76 cm2 AV DI (VTI) 0.64 AV DI (Eduardo) 0.63 AV Regurgitation 2D LVOT Area 2.79 cm2 Ventricles Name Value Normal LV Dimensions 2D/MM IVS Diastolic Thickness (2D) 1.0 cm 0.6-0.9 LVID Diastole (2D) 3.8 cm 3.8-5.2 LVPW Diastolic Thickness (2D) 1.0 cm 0.6-0.9 LVID Systole (2D) 2.5 cm 2.2-3.5 LV Mass (2D Cubed) 117 g 67-162 LV Mass Index (2D Cubed) 56 g/m2 43-95 Relative Wall Thickness (2D) 0.54 <=0.42 LV Fractional Shortening/Ejection Fraction 2D/MM LV Fractional Shortening (2D) 35 % 27-45 LV EF (2D Teicholz) 65 % 54-74 LV Diastolic Volume (4C MOD) 91 ml LV EF (4C MOD) 62 % LV Diastolic Volume (2C MOD) 72 ml LV EF (2C MOD) 63 % LV Diastolic Volume (BP MOD) 84 ml 46-106 LV Diastolic Volume Index (BP MOD) 41 ml/m2 29-61 LV Systolic Volume (BP MOD) 31 ml 14-42 LV Systolic Volume Index (BP MOD) 15 ml/m2 8-24 LV EF (BP MOD) 64 % 54-74 LV Diastolic Length (4C) 7.5 cm LV Systolic Length (4C) 6.1 cm LV Stroke Volume (4C MOD) 57 ml RV Dimensions 2D/MM TAPSE 2.0 cm >=1.7 Atria Name Value Normal LA Dimensions LA Dimension (2D) 3.6 cm 2.7-3.8 LA Dimen Index (2D) 1.7 cm/m2 LA Volume (BP MOD) 49 ml LA Volume Index (BP MOD) 23 ml/m2 16-34 RA Dimensions RA Area (4C) 14 cm2 <=18 RA Area (4C) Index 7 cm2/m2 RA ESV (4C MOD) 32 ml 15-27 RA ESV Index (4C MOD) 15 ml/m2 16-34 Report Signatures Finalized by Jada Ellis on 05/07/2024 10:06 AM Shayla España APRN-CATERING ASSOCIATE ECHO CUPID * EKG 12-LEAD (04/29/2024) 04/29/2024 Shayla España APRN-CATERING ASSOCIATE ECG ORDERABLES * HEMOGLOBIN A1C - POINT OF CARE (HgbA1C) (11/18/2023 1:25 PM CDT) Hemoglobin A1c POCT 6.4 % [facility] Expiration Date 07.10.[address] [facility] [address] [facility] Lot # [id number] [facility] QC Verified Yes Yes [facility] Blood BLOOD SPECIMEN / Unknown 11/18/2023 1:25 PM CDT Tamia Brooks MD LAB - POINT [facility] C[facility]AB[facility] [address] [phone] * EYE EXAM (10/15/2023) Anatomical Region Laterality [...] Resulting Agency Comment Lab Testing performed at: [facility] [address] [facility] [phone] Tamia Brooks MD LAB - URINE CHEMISTR Y ORDERABLES [facility] INSURANCE BILL [address] [place] [address] * (ABNORMAL) COMPREHENSIVE METABOLIC PANEL (09/23/2023 2:28 [...] Resulting Agency Comment Lab Testing performed at: [facility] [address] [facility] [phone] Tamia Brooks MD LAB - CHEMISTRY [facility] Organization Address City/State/ZIP Co de Phone Number [facility] INSURANCE BILL [address] [place] [address] * DEXA BONE DENSITY AXIAL SKELETON (03/17/2019 10:46 AM STEAM HEATING INSTALLER) Anatomical Region Laterality Modality Nuclear Medicine 03/17/2019 10:5 0 AM STEAM HEATING INSTALLER Impressions 03/17/2019 10:53 AM STEAM HEATING INSTALLER Osteopenia of the hips. Normal bone mineral density of the lumbar spine. [employer] DEFINITIONS NORMAL= T-Score at or above -1.0 SD OSTEOPENIA = T-Score between -1 and -2.5 SD OSTEOPOROSIS = T-Score at or below -2.5 SD Reading Radiologist: Kiki Mireles MD on 03/17/2019 at 10:53 AM Narrative 03/17/2019 10:53 AM STEAM HEATING INSTALLER BONE MINERAL DENSITY STUDY: INDICATION: 68-year-old for [...] with a HCV Nucleic Acid Amplification test ([id number]). FASTING Blood BLOOD SPECIMEN / Unknown 09/26/2016 8:02 AM CDT 09/26/2016 Narrative Resulting Agency [facility] [address] [facility] [phone] Tamia Brooks MD LAB - CHEMISTRY [facility] Organization Address City/State/ZIP Co de Phone Number [facility] INSURANCE BILL [address] [place] [address] from Last 3 Months or Most Recently Relevant to Health Maintenance Care Teams Supervisor Fireworks Assembly Relationship Specialty Start Date End Date Tamia Brooks MD [address] [place] [address] PCP - General Internal Medicine 07/26/16 Tamia Brooks MD [address] [place] [address] PCP - Attributed-MSSP 05/08/22 Yohan Barros, TAMMYM [address] [place] [address] Podiatry 05/24/13
--- OUTSIDE RECORDS SUMMARY | 2024-05-10 01:23 | XMS_ITS | Encounter Summary ---
Author Organization [facility] Address 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
--- OUTSIDE RECORDS SUMMARY | 2024-05-10 01:23 | XMS_ITS | Encounter Summary ---
Author Organization [facility] Address [address] [place] [address] Care Team Providers Care Polytechnic Teacher Name Role Phone Jhonathan Fisher MD Primary Care Provider Opal ramírez Encounter Details Date Type Department Care Team (Late st Contact Info) Description 01/02/2004 Outpatient Historical HIS [facility] Alex Salmon MD [address] [place] [address] SCREENING MAMM-MALIG NEOPL-HI RISK (Primary Dx) Social History Tobacco Use Types Packs/Day Years Used Date Smoking Tobacco: Never Assessed Comments Unknown Sex and Gender Information Value Date Recorded Sex Assigned at Not on file 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
--- OUTSIDE RECORDS SUMMARY | 2024-05-10 01:23 | XMS_ITS | Encounter Summary ---
Author Organization [facility] Address 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
--- OUTSIDE RECORDS SUMMARY | 2024-05-10 01:23 | XMS_ITS | Continuity of Care Document ---
Author Organization [facility] Address [address] [address] Phone Care Team Providers Care Liner Replacer Name Role Phone Daniel PONCE, Jose Unavailable [...] VISIT [facility] OFFICE/OUTPATIENT VISIT [facility] Advance Directives Directive Yes / No Effective Date File Name No Information Encounters Encounter Description Practice Location Reason(s) For Visit Diagnoses Date Provider Providers Copied on Encounter OFFICE/OUTPA TIENT VISIT EST [facility], [address], [address], [place] tel:[phone] [facility] Ruptured Bakers cystGastrocnemi us strain, right, subsequent encounter Sep-1 6 Sucher Jose. [address] [address], [place], [address]. tel: [phone] [facility], [address] [place] [address] [address], [place], [facility], [place] tel:[phone] [facility] Pain of right lower extremity Sep-0 6 Sucher Jose. [address] [address], [place], [address]. tel: [phone] OFFICE/OUTPA TIENT VISIT [facility], [address], [place], [address], [place] tel:[phone] [facility] Pain of right lower extremity 6 Sucher Jose. [address] [facility] [address], [place], [address]. tel: [phone] Family History Family Member Type Diagnosis Age At Onset Sister Problem (finding) Alive and well Payers Payer name Insurance type Covered republican ID Authorsylvestera tion(s) Medicare E2 OT [id number] For Life OT [id number] Social History Type Description Quantity Date Captured [...]
--- OUTSIDE RECORDS SUMMARY | 2024-05-10 01:23 | XMS_ITS | Patient Health Summary ---
Author Organization [facility] Address [address] [facility] [place] [address] Care Team Providers Care Post Secondary Professional Name Role Phone Yohan Barros DPM Unavailable [phone] Tamia Brooks MD Primary Care Provider [phone] Tamia Brooks MD Unavailable [phone] Note from [facility],non-owned Affiliates and Associated Physician Practices is amultiple site organization consisting of ambulatory clinics and hospital sitesin [place], [place], [place] and [place]. This disclosure is being madepursuant to the Care Everywhere program and may not contain all information available regarding this patient. Last updated 17.[facility] Allergies * Darvon(Nausea and/or Vomiting,Dizziness) Medications [...] * lisinopril (Prinivil; Zestril) 40 MG tablet(Started 04/19/2024) Take 1 (one) tablet by mouth once daily 1 refill by 04/19/2025 * amLODIPine (Norvasc) 10 MG tablet(Started 04/19/2024) Take 1 (one) tablet by mouth once daily Reasons: High Blood Pressure 1 refill by 04/19/2025 * carvedilol (Coreg) 6.25 MG tablet(Started 04/26/2024) Take 1 (one) tablet by mouth 2 times daily with morning and evening meal 1 refill by 04/26/2025 Ended Medications* lisinopril (Prinivil; Zestril) 40 MG tablet(Started 12/23/2023)(Discontinued) TAKE 1 TABLET DAILY 1 refill by 12/22/2024 * lisinopril (Prinivil; Zestril) 40 MG tablet(Started 04/14/2024)(Discontinued) Take 1 (one) tablet by mouth once daily 1 refill by 04/14/2025 * amLODIPine (Norvasc) 10 MG tablet(Started 04/16/2024)(Discontinued) Take 1 (one) tablet by mouth once daily Reasons: High Blood Pressure 1 refill by 04/16/2025 Active Problems Problem Noted Date Diagnosed Date PLMD (periodic limb movement disorder) Diet-controlled diabetes mellitus 08/30/2020 Type 2 diabetes [...] Comments Blood Pressure 140/70 05/07/2024 8:13 AM TUNNEL ELASTIC OPERATOR LOCKSTITCH Pulse 64 04/29/2024 12:55 PM TUNNEL ELASTIC OPERATOR LOCKSTITCH Temperature 36.2 C (97.1 F) 04/29/2024 12:55 PM TUNNEL ELASTIC OPERATOR LOCKSTITCH Respiratory Rate 16 04/23/2018 1:13 PM TUNNEL ELASTIC OPERATOR LOCKSTITCH Oxygen Saturation 97% 04/29/2024 12:55 PM TUNNEL ELASTIC OPERATOR LOCKSTITCH Inhaled Oxygen Concentration - - Weight 90.7 kg (200 lb) 05/07/2024 8:13 AM TUNNEL ELASTIC OPERATOR LOCKSTITCH Height 165.1 cm (5' 5 ) 05/07/2024 8:13 AM TUNNEL ELASTIC OPERATOR LOCKSTITCH Body Mass Index 33.28 05/07/2024 8:13 AM TUNNEL ELASTIC OPERATOR LOCKSTITCH Procedures * ECHO COMPLETE W CONTRAST(Performed 05/07/2024) Performed for Hypertension, benign essential, Abnormal EKG * EKG 12-LEAD(Performed 04/29/2024) Performed for Hypertension, benign essential * HEMOGLOBIN A1C - POINT OF CARE (AMB)(Performed 11/18/2023) Performed for Type 2 diabetes mellitus with stage 3a chronic kidney disease, without long-term current use of insulin ([facility]) * EYE EXAM(Performed 10/15/2023) * FERRITIN(Performed 09/23/2023) [...] disease, without long-term current use of insulin ([facility]) * COMPREHENSIVE METABOLIC PANEL(Performed 09/23/2023) Performed for Type 2 diabetes mellitus with stage 3a chronic kidney disease, without long-term current use of insulin (HCC) * CBC W AUTO DIFFERENTIAL(Performed 09/23/2023) Performed for Type 2 diabetes mellitus with stage 3a chronic kidney disease, without long-term current use of insulin ([facility]) * ENDOSCOPY ORDER(Performed 09/18/2023) * COLONOSCOPY(Performed 09/18/2023) * MAMMO BILAT SCREENING W TEJ(Performed 06/23/2023) Performed for Screening mammogram, encounter for * HEMOGLOBIN A1C - POINT OF CARE (AMB)(Performed 06/18/2023) Performed for Type 2 diabetes mellitus with stage 3a chronic kidney disease, without long-term current use of insulin ([facility]) * HEMOGLOBIN A1C - POINT OF CARE [...] unspecified whether stage 3a or 3b CKD ([facility]) * MRI CERVICAL SPINE WO CONTRAST(Performed 10/04/2021) Performed for DDD (degenerative disc disease), cervical, Cervical radiculopathy * XR CERVICAL SPINE 2 OR 3VW(Performed 09/21/2021) Performed for Cervical radiculitis * XR CHEST 2VW(Performed 03/29/2021) Performed for Cough, SOB (shortness of breath) * CBC W AUTO DIFFERENTIAL(Performed 01/12/2021) Performed for Stage 3b chronic kidney disease (HCC) * LIPID PROFILE(Performed 01/12/2021) Performed for Hyperlipidemia, unspecified hyperlipidemia type * BASIC METABOLIC PANEL (CALCIUM TOTAL)(Performed 01/12/2021) Performed for Stage 3b chronic kidney disease (HCC) * HEMOGLOBIN A1C - POINT OF CARE (AMB)(Performed 08/30/2020) Performed for Type 2 diabetes mellitus with stage 3a chronic kidney disease, without long-term current use of insulin ([facility]) * MICROALB/CREAT RATIO URINE RANDOM PANEL(Performed 02/11/2020) Performed for Medicare annual wellness visit, subsequent, Type 2 diabetes mellitus with stage 3a chronic kidney disease, without long-term current use of insulin ([facility]) * LIPID PROFILE(Performed 02/11/2020) Performed for Medicare annual wellness visit, subsequent, Type 2 diabetes mellitus with stage 3a chronic kidney disease, without long-term current use of insulin ([facility]) * COMPREHENSIVE METABOLIC PANEL(Performed 02/11/2020) Performed for Medicare annual wellness visit, subsequent, Type 2 diabetes mellitus with stage 3a chronic kidney disease, without long-term current use of insulin (HCC) * CBC W AUTO DIFFERENTIAL(Performed 02/11/2020) Performed for Medicare annual wellness visit, subsequent, Type 2 diabetes mellitus with stage 3a chronic kidney disease, without long-term current use of insulin (HCC) * SARS-COV-2 (COVID-19) IN HOUSE(Performed 10/01/2019) Performed [...] 30-59 ml/min ([facility]) * VITAMIN D 25-HYDROXY(Performed 10/19/2018) Performed for CKD (chronic kidney disease) stage 3, GFR 30-59 ml/min ([facility]) * HEMOGLOBIN A1C(Performed 10/19/2018) Performed for Prediabetes [...] 30-59 ml/min ([facility]) * IMAGING/RADIOLOGY/XRAY RESULTS ORDER(Performed 06/24/2017) * ECHOCARDIOGRAM [...] 30-59 ml/min ([facility]) * PHOSPHORUS BLOOD(Performed 09/26/2016) Performed for CKD (chronic kidney disease) stage 3, GFR 30-59 ml/min ([facility]) * PTH INTACT(Performed 09/26/2016) Performed for CKD (chronic kidney disease) stage 3, GFR 30-59 ml/min ([facility]) * VITAMIN D 25-HYDROXY(Performed 09/26/2016) Performed for Encounter for vitamin deficiency screening, CKD (chronic kidney disease) stage 3, STV09-97 ml/min (HCC) * HEPATITIS C ANTIBODY(Performed 09/26/2016) Performed for Need for hepatitis C screening test * CBC W AUTO DIFFERENTIAL(Performed 09/26/2016) Performed for CKD (chronic kidney disease) stage 3, GFR 30-59 ml/min (HCC) * TSH HI LOW REFLEX FREE T4(Performed [...] * FINE NEEDLE ASPIRATION(Performed 04/29/2001) Results * ECHO COMPLETE W CONTRAST (05/07/2024 8:22 AM TUNNEL ELASTIC OPERATOR LOCKSTITCH) IVSd 2D 0.988 cm SSM CV FUJ I PACS LVIDd 3.783 cm SSM CV FUJ I PACS LVIDs 2.471 cm SSM CV FUJ I PACS LVOT diam 1.884 cm SSM CV FUJ I PACS LVPWd 1.014 cm SSM CV FUJ I PACS LV biplane EF 63.769 % [...] LVOT pk grad 6.369 mmHg SSM CV FUJI PACS LVOT pk eduardo 126.185 cm/s SSM CV F UJI PACS LVOT VTI 29.958 cm SSM CV FUJ I PACS LA size 3.596 cm SSM CV FUJ I PACS LA vol BP 48.519 ml SSM CV FUJ I PACS RA area 14.013 cm SSM CV FUJI PACS AV area pk eduardo 1.762 cm SSM CV FUJI PACS AV area cont VTI 1.792 cm SSM CV FUJI PACS AV pk grad 15.926 mmHg SSM CV FU JI PACS AV mn grad 9.823 mmHg SSM CV FU JI PACS AV pk eduardo 199.537 cm/s SSM CV FUJ I PACS AV VTI 46.596 cm SSM CV FUJ I PACS MV A pk eduardo 150.3 cm/s SSM CV F UJI PACS MV E pk eduardo 140.234 cm/s SSM CV F UJI PACS MV E' lateral eduardo 6.126 cm/s SS M CV FUJI PACS MV mn grad 3.53 mmHg SSM CV FU JI PACS MV VTI 62.452 cm SSM CV FUJ I PACS TAPSE 2.011 cm SSM CV FUJ I PACS TR pk eduardo 206.874 cm/s SSM CV FUJ I PACS Ascending aorta 3.197 cm SSM CV FUJI PACS IVC Diam Expiration 1.897 cm SSM CV FUJI PACS AV area index 0.864 cm /m SSM CV FUJI PACS LA vol index 0.023 l/m SSM CV FUJI PACS Dimensionless Index 0.643 unitless SSM CV FUJI PACS Myocardial strain charge 2 unitless SSM CV FUJI PACS Anatomical Region Laterality Modality Ultrasound 05/07/2024 8:04 AM TUNNEL ELASTIC OPERATOR LOCKSTITCH Narrative 05/07/2024 10:06 AM TUNNEL ELASTIC OPERATOR LOCKSTITCH Summary * The left ventricle is normal [...] 8:04 AM Patient Status: O/P Study Site: [facility] Primary Location: [facility] EStudy Info Technical Quality: Adequate Exam Type: [...] Provider: Shayla España Attending Physician: Shayla España Paving Supervisor: Essie Toribio Left Ventricle The left ventricle [...] on 05/07/2024 10:06 AM Procedure Note Jada Ellis, DO - 05/07/2024 Summary * The left [...] 8:04 AM Patient Status: O/P Study Site: [facility] Primary Location: [facility] EStudy Info Technical Quality: Adequate Exam Type: [...] Provider: Shayla España Attending Physician: Shayla España Paving Supervisor: Essie Bleyessenia Left Ventricle The left ventricle is normal [...] (2D) 35 % 27-45 LV EF (2D Teichmelizaz) 65 % 54-74 LV Diastolic Volume (4C [...] Ellis on 05/07/2024 10:06 AM Shayla España APRN-MYSQL DATABASE DEVELOPER ECHO CUPID * EKG 12-LEAD (04/29/2024) 04/29/2024 Shayla España APRN-MIKE ECG ORDERABLES * HEMOGLOBIN A1C - POINT OF CARE (HgbA1C) (11/18/2023 1:25 PM CDT) Only the most recent of7 resultswithin the time period is included. Hemoglobin A1c POCT 6.4 % [facility] Expiration Date 07.10.[address] [facility] [facility] Lot # [id number] [facility] QC Verified Yes Yes [facility] Blood BLOOD SPECIMEN / Unknown 11/18/2023 1:25 PM CDT Tamia Brooks MD LAB - POINT OF CARE ORDERABLES Performing Organization Address City/State/[facility] [[email or web address] Co de Phone Number [facility] [address], [address] [phone] * EYE EXAM (10/15/2023) Anatomical Region Laterality [...] Agency Comment Lab Testing performed at: [facility] [address] [place] [address] [phone] Tamia Brooks MD LAB - CHEMISTRY PREETI COSTA Performing Organization Address City/[facility]/ZIP Co de Phone Number [facility] INSURANCE BILL [address] [place] [address] * MICROALB/CREAT RATIO URINE RANDOM PANEL (09/23/2023 [...] Agency Comment Lab Testing performed at: [facility] [address] [place] [address] [phone] Tamia Brooks MD LAB - URINE CHEMISTR Y ORDERABLES Performing Organization Address [facility] [[email or web address]] Co de Phone Number [facility] INSURANCE BILL [address] [place] [address] * VITAMIN D 25-HYDROXY (09/23/2023 2:28 PM [...] Agency Comment Lab Testing performed at: [facility] [address] [place] [address] [phone] Tamia Brooks MD LAB - CHEMISTRY PREETI COSTA [facility] INSURANCE BILL [address] [place] [address] * (ABNORMAL) CBC WITH DIFFERENTIAL (09/23/2023 2:28 [...] Agency Comment Lab Testing performed at: [facility] [address] [place] [address] [phone] Tamia Brooks MD LAB - HEMATOLOGY ORD ERABLES [facility] INSURANCE BILL [address] [place] [address] * (ABNORMAL) COMPREHENSIVE METABOLIC PANEL (09/23/2023 2:28 [...] Resulting Agency Comment Lab Testing performed at: [address] [phone] Tamia Brooks MD LAB - CHEMISTRY PREETI COSTA [facility] INSURANCE BILL [address] [place] [address] * FERRITIN (09/23/2023 2:28 PM CDT) Ferritin 80 5 - 204 ng/mL [facility] INSURANCE BILL Blood BLOOD SPECIMEN / Unknown 09/23/2023 2:28 PM CDT 09/23/2023 Narrative Resulting Agency Comment Lab Testing performed at: [address] [phone] Truong Cadet MD LAB - CHEMISTRY PREETI COSTA [facility] INSURANCE BILL [address] [place] [address] * COLONOSCOPY (09/18/2023) 09/18/2023 Narrative 09/18/2023 Ordered [...] [facility] Lot # [id number] [facility] Expiration Date 09/06/[address] [facility] Instrument Serial Number n/a [facility] COVID Internal Control Acceptable Acceptable [facility] Microbiology SPECIMEN FROM NASAL FOSSAE / Unknown 08/20/2022 11:30 AM CDT Tamia Brooks MD LAB - POINT OF CARE ORDERABLES Performing Organization Address [facility]/ZIP Co de Phone Number [facility] [address], [facility] [address] [phone] * STREP A SCREEN - POINT OF CARE (AMB) (08/20/2022 11:25 AM CDT) Strep A Rapid POCT Negative Negative [facility] Strep A Internal Control Present [facility] Other ENTIRE THROAT (SURFACE REGION OF NECK) / Unknown 08/20/2022 11:25 AM CDT Tamia Brooks MD LAB - POINT OF CARE ORDERABLES Performing Organization Address [facility] de Phone Number [facility] [address], [address] [phone] * EYE EXAM (06/18/2022) Anatomical Region Laterality [...] * XR CHEST 2VW (03/29/2021 1:23 PM TUNNEL ELASTIC OPERATOR LOCKSTITCH) Only the most recent of2 resultswithin the time period is included. Anatomical Region Laterality Modality Chest Radiographic Aimee ging 03/29/2021 1:45 PM TUNNEL ELASTIC OPERATOR LOCKSTITCH Narrative 03/29/2021 1:59 PM TUNNEL ELASTIC OPERATOR LOCKSTITCH CHEST 2 VIEW HISTORY: Cough and shortness [...] PM Tamia Brooks MD DIAGNOSTIC IMAGING O KODI * (ABNORMAL) BASIC METABOLIC PANEL (BMP) (01/12/2021 [...] with recommendations from the NKF-ASN Task force, [facility] is in the process of updating [...] Resulting Agency Comment Lab Testing performed at: [facility] [phone] Tamia Brooks MD LAB - CHEMISTRY PREETI COSTA [facility] INSURANCE BILL [address] [place] [address] * (ABNORMAL) LIPID PROFILE (LIPID PANEL) (01/12/2021 9:20 AM CDT) Only the most recent of12 resultswithin the time period is included. Cholesterol 166 100 - 199 mg/dL [facility] INSURANCE BILL Triglycerides 214(H) 0 - 149 mg/dL [facility] INSURANCE BILL HDL Cholesterol 39(L) >39 mg/dL [facility] INSURANCE BILL VLDL Calculated 36 5 - 40 mg/dL [facility] INSURANCE BILL LDL Calculated 91 0 - 99 mg/dL [facility] INSURANCE BILL Comment NOT NEEDED [facility] INSURANCE BILL Comment: FASTING Ancillary determined the test is not needed. Blood BLOOD SPECIMEN / Unknown 01/12/2021 9:20 AM CDT 01/12/2021 Narrative Resulting Agency Comment Lab Testing performed at: [facility] [phone] Tamia Brooks MD LAB - CHEMISTRY PREETI COSTA [facility] INSURANCE BILL [address] [address] * (ABNORMAL) [facility] COVID PCR (10/01/2019 4:58 PM CDT) COVID-19 PCR Detected( AA) Not detected, Invalid 10/02/2019 12:35 PM CDT [facility] MICRO[facility] Microbiology SPECIMEN FROM NASOPHARYNGEAL STRUCTURE / Unknown Collection / Unknown 10/01/2019 4:58 PM CDT 10/01/2019 4:58 PM CDT Narrative [facility]CRO[facility] - 10/02/2019 12:35 PM CDT This nucleic acid amplification assay performance was validated by [facility]. This test has been [...] acid amplification assay performance was validated by [facility]. This test has been [...] Brooks MD LAB - MICROBIOLOGY O RDERABLES [facility] MICROBIOLOGY [address] [place] [address], [facility] [phone] * DEXA BONE DENSITY AXIAL SKELETON (03/17/2019 10:46 AM TUNNEL ELASTIC OPERATOR LOCKSTITCH) Only the most recent of2 resultswithin the time period is included. Anatomical Region Laterality Modality Nuclear Medicine 03/17/2019 10:5 0 AM TUNNEL ELASTIC OPERATOR LOCKSTITCH Impressions 03/17/2019 10:53 AM TUNNEL ELASTIC OPERATOR LOCKSTITCH Osteopenia of the hips. Normal bone mineral density of the lumbar spine. [employer] DEFINITIONS NORMAL= T-Score at or above -1.0 SD OSTEOPENIA = T-Score between -1 and -2.5 SD OSTEOPOROSIS = T-Score at or below -2.5 SD Reading Radiologist: Kiki Mireles MD on 03/17/2019 at 10:53 AM Narrative 03/17/2019 10:53 AM TUNNEL ELASTIC OPERATOR LOCKSTITCH BONE MINERAL DENSITY STUDY: INDICATION: 68-year-old for [...] Resulting Agency Comment Lab Testing performed at: [employer] [facility] [phone] Tamia Brooks MD LAB - CHEMISTRY PREETI COSTA Performing Organization Address [facility]/ZIP Co de Phone Number [facility] INSURANCE BILL [address] [place] [address] * PTH INTACT (10/19/2018 11:20 AM CDT) [...] Resulting Agency Comment Lab Testing performed at: [id number] [facility] [phone] Tamia Brooks MD LAB - CHEMISTRY PREETI COSTA Performing Organization Address City/[facility]/ZIP Co de Phone Number [facility] INSURANCE BILL [address] [place] [address] * (ABNORMAL) HEMOGLOBIN A1C (10/19/2018 11:20 AM CDT) Only the most recent of4 resultswithin the time period is included. Hemoglobin A1c 6.5(H) 4.8 - 5.6 % [facility] INSURANCE BILL Comment: . Prediabetes: 5.7 - 6.4 Diabetes: >6.4 Glycemic control for adults with diabetes: <7.0 Blood BLOOD SPECIMEN / Unknown 10/19/2018 11:20 AM CDT 10/19/2018 Narrative Resulting Agency Comment Lab Testing performed at: [employer] [facility] [address] [facility] [phone] Tamia Brooks MD LAB - CHEMISTRY PREETI COSTA [employer] INSURANCE BILL [address] [place] [address] * AMB REFERRAL TO BREAST SURGERY (08/01/2018 [...] BLOOD SPECIMEN / Unknown 04/11/2018 Historical Provider MD LAB - CHEMISTRY O RDERABLES * IMAGING/RADIOLOGY/XRAY RESULTS ORDER (06/24/2017) Only the most recent of2 resultswithin the time period is included. Anatomical Region Laterality Modality Other Scanned Document IMAGING * ECHOCARDIOGRAM 2D WITH DOPPLER (05/23/2017 8:21 AM CDT) 05/23/2017 8:21 AM CDT Narrative [facility] CARDIOLOG[facility] - 05/23/2017 5:23 PM CDT [facility] [place] [address] Transthoracic Echocardiogram 2D, M-mode, Doppler, and Color Doppler Patient: MAURA WATKINS MR number: [id number] Height: 65 in Weight: 186.6 lb BSA: 1.92 m Study date: 23-May-2017 : 1950 Age: 67 years Gender: Female Race: Allergies: DARVON Paving Supervisor: Faiza Mcgrath RDCS, RVT Referring Physician: [...] Procedure: The study was performed in the [facility]. The transthoracic approach was used. The [...] Procedure Note Madhu Richards MD - 05/23/[address] [facility] [place] [address] Transthoracic Echocardiogram 2D, M-mode, Doppler, and Color Doppler Patient: MAURA WATKINS MR number: [id number] Height: 65 in Weight: 186.6 lb BSA: 1.92 m Study date: 23-May-2017 : 1950 Age: 67 years Gender: Female Race: Allergies: DARVIVEKN Paving Supervisor: Faiza Mcgrath RDCS, RVT Referring Physician: [...] Procedure: The study was performed in the [facility]. The transthoracic approach was used. The [...] Brooks MD ECHO ORDERABLES Performing Organization Address City/[facility] [[email or web address]] Co de Phone Number [facility] CARDIOLOG[facility] [address] [place] [address] * B-TYPE NATRIURETIC PEPTIDE (05/22/2017 8:35 AM CDT) Only the most recent of2 resultswithin the time period is included. BNP 16.5 0.0 - 100.0 pg/mL [facility] INSURANCE BILL Comment:FASTING Blood BLOOD SPECIMEN / Unknown 05/22/2017 8:35 AM CDT 05/22/2017 Narrative Resulting Agency Comment [facility] [address] [facility] [phone] Tamia Brooks MD LAB - CHEMISTRY ORDCarl COSTA Performing Organization Address [facility] de Phone Number [facility] INSURANCE BILL [address] [place] [address] * C-REACTIVE PROTEIN (04/17/2017 9:11 AM TUNNEL ELASTIC OPERATOR LOCKSTITCH) C-Reactive Protein 1.0 0.0 - 4.9 mg/L [facility] INSURANCE BILL Comment:FASTING Blood BLOOD SPECIMEN / Unknown 04/17/2017 9:11 AM TUNNEL ELASTIC OPERATOR LOCKSTITCH 04/17/2017 Narrative Resulting Agency Comment [facility] [address] [facility] [phone] Tamia Brooks MD LAB - CHEMISTRY PREETI COSTA Performing Organization Address City/[facility] [[email or web address]] Co de Phone Number [facility] INSURANCE BILL [address] [place] [address] * ERYTHROCYTE SEDIMENTATION RATE (04/17/2017 9:11 AM TUNNEL ELASTIC OPERATOR LOCKSTITCH) Erythrocyte Sedimentation Rate Mireilleren 6 0 - 40 mm/hr [facility] INSURANCE BILL Comment:FASTING Blood BLOOD SPECIMEN / Unknown 04/17/2017 9:11 AM TUNNEL ELASTIC OPERATOR LOCKSTITCH 04/17/2017 Narrative Resulting Agency Comment [facility] [address] [facility] [phone] Tamia Brooks MD LAB - HEMATOLOGY ORD ERABLES [facility] INSURANCE BILL [address] [place] [address] * PULMONARY/RESPIRATORY REPORT ORDER (02/20/2017 10:19 PM TUNNEL ELASTIC OPERATOR LOCKSTITCH) Narrative 02/20/2017 10:19 PM TUNNEL ELASTIC OPERATOR LOCKSTITCH Ordered by an unspecified provider. Scanned Document RESPIRATORY THERAPY ORDERABLES * CPAP/BIPAP TITRATION (02/14/2017 10:29 AM TUNNEL ELASTIC OPERATOR LOCKSTITCH) Narrative Ramon Parker MD - 02/14/2017 10:29 AM TUNNEL ELASTIC OPERATOR LOCKSTITCH Ramon Parker MD 02/14/2017 10:29 AM Polysomnogram [...] needs to be evaluated. Ramon Parker MD, [facility]. Be advised [...] WITH CPAP IF INDICATED (01/20/2017 9:44 AM TUNNEL ELASTIC OPERATOR LOCKSTITCH) Narrative Ramon Parker MD - 01/20/2017 9:44 AM TUNNEL ELASTIC OPERATOR LOCKSTITCH Ramon Parker MD 01/20/2017 9:44 AM Polysomnogram sleep study. 66 year-old who reports snoring and excessive daytime sleepiness suspicious of sleep apnea was referred for a polysomnogram. The [place] Sleepiness Scale at the night of the [...] for restless leg syndrome. Ramon Parker MD, FCCP Pulmonary and Sleep Medicine. Be advised that voice recognition software was used in the production of this record. Errors in interpretation may have been inadvertently missed during review. Ramon Parker MD [facility] ORDERAB LES * HELICOBACTER PYLORI UREASE (STL) (10/04/2016 12:23 PM CDT) Helicobacter pylori Urease Initial Negative Negative 10/05/2016 5:11 PM CDT [facility] Helicobacter pylori Urease Final Negative Negative 10/05/2016 5:11 PM CDT [facility] Microbiology GASTRIC ANTRAL BIOPSY SPECIMEN / Unknown Collection / Unknown 10/04/2016 12:23 PM CDT 10/04/2016 3:06 PM CDT James Calix MD LAB - MICROBIOLOGY [facility] Organization Address City/State/[facility] [[email or web address]] Co de Phone Number [facility] [address] [phone] * EGD (10/04/2016 11:57 AM CDT) Report [...] PO BID. Procedure Code(s): --- Professional --- 48464, Esophagogastroduo denoscopy, flexible, transoral; with biopsy, single or multiple --- Technical --- 53336, Esophagogastroduo denoscopy, flexible, transoral; with biopsy, single or multiple Diagnosis Code(s): --- Professional --- K44.9, Diaphragmatic hernia without obstruction or gangrene K29.70, Gastritis, unspecified, without bleeding --- Technical --- K44.9, Diaphragmatic hernia without obstruction or gangrene K29.70, Gastritis, unspecified, without bleeding CPT copyright 2015 [employer]. All rights reserved. The codes documented in this report are preliminary and upon grain oilseed or pasture farm manager review may be revised to meet current compliance requirements. Jaems Calix MD 10/04/2016 12:32:07 PM This report has been signed electronically. Number of Addenda: 0 Note Initiated On: 10/04/2016 11:57 AM [facility] 10/04/2016 11:5 7 AM CDT James Calix MD GI PROCEDURE ORDERAB LES [facility] * PHOSPHORUS BLOOD (09/26/2016 8:02 AM CDT) Phosphorus 4.0 2.5 - 4.5 mg/dL [facility] INSURANCE BILL Comment:FASTING Blood BLOOD SPECIMEN / Unknown 09/26/2016 8:02 AM CDT 09/26/2016 Narrative Resulting Agency Comment [facility] [address] [facility] [phone] Tamia Brooks MD LAB - CHEMISTRY PREETI COSTA [facility] INSURANCE BILL [address] [place] [address] * HEPATITIS C ANTIBODY (09/26/2016 8:02 AM CDT) Hepatitis C Antibody <0.1 0.0 - 0.9 s/co ratio [facility] INSURANCE BILL Comment: Negative: < 0.8 Indeterminate: 0.8 - 0.9 Positive: > 0.9 . The CDC recommends that a positive HCV antibody result be followed up with a HCV Nucleic Acid Amplification test (031785). FASTING Blood BLOOD SPECIMEN / Unknown 09/26/2016 8:02 AM CDT 09/26/2016 Narrative Resulting Agency Comment [facility] [address] [facility] [phone] Tamia Brooks MD LAB - CHEMISTRY PREETI COSTA Performing Organization Address [facility] de Phone Number [facility] INSURANCE BILL [address] [place] [address] * (ABNORMAL) CULTURE URINE (09/16/2016 11:28 AM CDT) [facility] Urine Culture Routine Final report(A) [facility] INSURANCE BILL Result 1 (A) [facility] INSURANCE BILL Comment: Escherichia coli, identified by an automated biochemical system. Greater than 100,000 colony forming units per mL Antimicrobial Susceptibility [facility] INSURANCE BILL Comment: S = Susceptible; I [...] AM CDT 09/16/2016 Narrative Resulting Agency Comment [facility] [address] [facility] [phone] Tamia Brooks MD LAB - MICROBIOLOGY [place] Performing Organization Address [facility] [[email or web address]] Co de Phone Number [facility] INSURANCE BILL [address] [place] [address] * URINALYSIS - POINT OF CARE (09/16/2016) Pathologist [facility] [place] Clarity UA POCT cloudy Color UA POCT dk yellow Leukocyte UA large Negative Nitrite UA POCT neg Negative Urobilinogen UA 0.2 0.1 - 1.0 Protein UA POCT trace Negative pH UA 5.5 5.0 - 8.0 pH units Blood UA moderate Negative Specific [place] UA POCT <1.005 1.002 - 1.030 Ketone [...] 6:23 PM CDT Narrative Resulting Agency Comment [facility] [address] [facility] [phone] Lemuel Hoang MD LAB - CHEMISTRY PREETI COSTA [facility] Organization Address City/State/ZIP Co de Phone Number [facility] INSURANCE BILL * DEXA BONE DENSITY 2 SITES (08/17/2014 6:09 PM CDT) Anatomical Region Laterality Modality Other Narrative 08/17/2014 6:09 PM CDT Reese Valverde MD 08/17/2014 6:09 PM [facility] BONE DENSITY REPORT Pt. Name: Maura Watkins Gender: female : 1950 Test Date: 08/17/2014 Referring Physician: Lemuel Hoang MD Technologist: SANJUANA Jaramillo A Central DXA was performed today using a [email or web address] C broadcast systems engineer. The images and data have been scanned. [...] Reese Valverde MD Physician and Certified Clinical Care Manager Lemuel Hoang MD DEXA ORDERABLES * ALT (07/13/2014 8:47 AM CDT) ALT 18 0 - 32 IU/L [facility] INSURANCE BILL Blood specimen (specimen) BLOOD SPECIMEN / Unknown 07/13/2014 8:47 AM CDT 07/13/2014 1:28 PM CDT Narrative Resulting Agency Comment [facility] [address] [facility] [phone] Lemuel Hoang MD LAB - CHEMISTRY PREETI COSTA Performing Organization Address City/[facility] de Phone Number [facility] INSURANCE BILL * AST BLOOD (07/13/2014 8:47 AM CDT) AST 24 0 - 40 IU/L [facility] INSURANCE BILL Blood specimen (specimen) BLOOD SPECIMEN / Unknown 07/13/2014 8:47 AM CDT 07/13/2014 1:28 PM CDT Narrative Resulting Agency Comment [facility] [address] [facility] [phone] Lemuel Hoang MD LAB - CHEMISTRY PREETI COSTA Performing Organization Address [facility] de Phone Number [facility] INSURANCE BILL * TSH (07/13/2014 8:47 AM CDT) Only the most recent of7 resultswithin the time period is included. TSH 2.060 0.450 - 4.500 uIU/mL [facility] INSURANCE BILL Blood specimen (specimen) BLOOD SPECIMEN / Unknown 07/13/2014 8:47 AM CDT 07/13/2014 1:28 PM CDT Narrative Resulting Agency Comment [facility] [address] [facility] [phone] Lemuel Hoang MD LAB - CHEMISTRY PREETI COSTA Performing Organization Address [facility] de Phone Number [facility] INSURANCE BILL * T4 FREE (07/13/2014 8:47 AM CDT) Only the most recent of4 resultswithin the time period is included. T4 Free 1.00 0.82 - 1.77 ng/dL [facility] INSURANCE BILL Blood specimen (specimen) BLOOD SPECIMEN / Unknown 07/13/2014 8:47 AM CDT 07/13/2014 1:28 PM CDT Narrative Resulting Agency Comment [facility] [address] [phone] Lemuel Hoang MD LAB - CHEMISTRY PREETI COSTA [facility] INSURANCE BILL * MAMMO SCREENING [...] for surveillance. - Call my office at [phone] if you have any questions. Procedure Code(s): [...] without mention of complication CPT copyright 2013 [employer]. All rights reserved. The codes documented in this report are preliminary and upon grain oilseed or pasture farm manager review may be revised to meet current compliance requirements. ____ Jos Scott MD 11/05/2013 9:48 AM Number of Addenda: 0 Note Initiated On: 11/05/2013 9:10 AM [facility] 11/05/2013 9:10 AM CDT Jos Scott MD GI PROCEDURE PREETI COSTA [facility] * CVD REPORT (PO [...] RISK ASSESSMENT: National Heart, Lung, and Blood Tamms's Third Report of the NCEP Expert Panel on Detection, Evaluation and Treatment of High Blood Cholesterol in Adults (ATP III) (2002. NIH publication 02-5215); Benjamín et al. Diabetes Care 2008; 31(4):811-82; Contois et al. Clin Chem 2009; 55(3):407-419; Stone [place] et al. 2013 ACC/AHA guideline on the treatment of blood cholesterol to reduce atherosclerotic cardiovascular risk in adults: a report of the English College of Cardiology/English Heart Association Task Force on Practice Guidelines. Circulation 2013; 00:000-000. PDF Image Not applicable [facility] INSURANCE BILL 08/28/2013 8:48 AM CDT 08/28/2013 1:09 PM CDT Narrative Resulting Agency Comment [facility] [address] [place] [address] [phone] Jhonathan Fisher MD LAB - CHEMISTRY ORD [...] PM CDT Narrative Resulting Agency Comment [facility] [address] [phone] Jhonathan Fisher MD LAB - URINALYSIS OR DERABLES Performing Organization Address City/[facility] [[email or web address]] Co de Phone Number [facility] INSURANCE BILL * URIC ACID BLOOD (08/28/2013 8:48 AM CDT) Only the most recent of6 resultswithin the time period is included. Uric Acid 5.1 2.5 - 7.1 mg/dL [facility] INSURANCE BILL Comment:Therapeutic target f or gout patients: <6.0 Blood specimen (specimen) BLOOD SPECIMEN / Unknown 08/28/2013 8:48 AM CDT 08/28/2013 1:09 PM CDT Narrative Resulting Agency Comment [facility] [phone] Jhonathan Fisher MD LAB - CHEMISTRY ORD ERABLES Performing Organization Address [facility] de Phone Number [facility] INSURANCE BILL * URINALYSIS ROUTINE AUTO (08/28/2013 8:48 AM CDT) Only the most recent of6 resultswithin the time period is included. Specific [place] UA 1.016 1.005 - 1.030 [facility] INSURANCE [...] 1:09 PM CDT Narrative Resulting Agency Comment [address] [phone] Jhonathan Fisher MD LAB - URINALYSIS OR DERABLES Performing Organization Address City/[facility] [[email or web address]] Co de Phone Number [facility] INSURANCE BILL [...] 1:09 PM CDT Narrative Resulting Agency Comment [address] [phone] Jhonathan Fisher MD LAB - CHEMISTRY ORD ERABLES Performing Organization Address [facility] de Phone Number [facility] INSURANCE BILL * CARDIAC PROCEDURE ORDER (05/23/2011) María Ellis MD CARDIAC SERVICES ORD ERABLES * URINALYSIS MICROSCOPIC ONLY (03/25/2011 8:32 AM TUNNEL ELASTIC OPERATOR LOCKSTITCH) Only the most recent of3 resultswithin the [...] test is not needed 03/25/2011 8:32 AM TUNNEL ELASTIC OPERATOR LOCKSTITCH 03/25/2011 1:22 PM TUNNEL ELASTIC OPERATOR LOCKSTITCH Narrative Resulting Agency Comment [address] [phone] Jhonathan Fisher MD LAB - URINALYSIS OR DERABLES Performing Organization Address City/[facility] [[email or web address]] Co de Phone Number [facility] INSURANCE BILL * C-REACTIVE PROTEIN SENSITIVE (05/11/2010 10:36 AM TUNNEL ELASTIC OPERATOR LOCKSTITCH) C-Reactive Protein High Sensitivity 0.85 0.00 - 3.00 mg/L [facility] INSURANCE BILL Comment: Relative Risk for Future Cardiovascular Event Low <1.00 Average 1.00 - 3.00 High >3.00 BLOOD SPECIMEN / Unknown 05/11/2010 10:36 AM TUNNEL ELASTIC OPERATOR LOCKSTITCH 05/11/2010 9:32 PM TUNNEL ELASTIC OPERATOR LOCKSTITCH Narrative Resulting Agency Comment [address] [phone] Jhonathan Fisher MD LAB - CHEMISTRY ORD ERABLES [facility] INSURANCE BILL * APOLIPOPROTEIN B (05/11/2010 10:36 AM TUNNEL ELASTIC OPERATOR LOCKSTITCH) Pathologist [facility] Apolipoprotein B 98 50 - 130 mg/dL [facility] INSURANCE BILL BLOOD SPECIMEN / Unknown 05/11/2010 10:36 AM TUNNEL ELASTIC OPERATOR LOCKSTITCH 05/11/2010 9:32 PM TUNNEL ELASTIC OPERATOR LOCKSTITCH Narrative Resulting Agency Comment [place] [phone] Jhonathan Fisher MD LAB - CHEMISTRY ORD ERABLES [facility] INSURANCE BILL * EEG (05/11/2010) Jhonathan Fisher MD NEUROLOGY ORDERABLE S * XR FOOT 2 VW LEFT (05/03/2010) Anatomical Region Laterality Modality Ankle / Foot Other Jhonathan Fisher MD DIAGNOSTIC IMAGING ORDERABLES * MAMMO UNILATERAL DIAG LEFT (12/12/2008) Anatomical Region Laterality Modality Breast Other Narrative 12/12/2008 A scan was deleted from the Results section by Nia MARQUES] on 01/12/09 at 1:50 PM (File: [id number]) A scan was deleted from the Results section by Nia MARQUES] on 01/12/09 at 1:52 PM (File: [id number]) Jhonathan Fisher MD MAMMO ORDERABLES * CBC [...] Thousand/u L [facility] Comment: Test Performed at: [facility] [address] [place] [address] CECELIA ENRIQUEZ MD 05/24/2008 8:07 AM CDT 05/25/2008 1:24 AM CDT Jhonathan Fisher MD LAB - HEMATOLOGY OR DERABLES [facility] [address] [place] [address] * GGT (05/24/2008 8:07 AM CDT) GGT 38 3 - 65 U/L [facility] Comment: Test Performed at: [facility] [id number] [place] [phone] CECELIA ENRIQUEZ MD 05/24/2008 8:07 AM CDT 05/25/2008 1:24 AM CDT Jhonathan Fisher MD LAB - CHEMISTRY ORD ERABLES [facility] [address] [place] [address] * FINE NEEDLE ASPIRATION (04/29/2001 12:00 PM TUNNEL ELASTIC OPERATOR LOCKSTITCH) Result CASE NUMBER [id number] Comment: ORDERING [...] <1> Pathologist Coy Rios M.D. CPT code 87722 MISCELLANEOUS SAMPLES / Unknown 04/29/2001 12:00 PM TUNNEL ELASTIC OPERATOR LOCKSTITCH 04/30/2001 7:43 AM TUNNEL ELASTIC OPERATOR LOCKSTITCH Historical Provider LAB - PATHOLOGY/C YTOLOGY ORDERABLES Care Teams Post Secondary Professional Relationship Specialty Start Date End Date Tamia Brooks MD [address] [place] [address] PCP - General Internal Medicine 07/26/16 Tamia Brooks MD [address] [place] [address] PCP - Attributed-MSSP 05/08/22 Yohan Barros, [place] [address] [place], [place] [phone] Podiatry 05/24/13
--- OUTSIDE RECORDS SUMMARY | 2024-05-10 01:23 | XMS_ITS | Encounter Summary ---
Author Organization [facility] Address [address] [place] [address] Care Team Providers Care Information Systems Technician Name Role Phone Jhonathan Fisher MD Primary Care Provider Opal ramírez Encounter Details Date Type Department Care Team (Latest Contact Info) Description 12/27/1998 Outpatient Historical HIS [facility] Jhonathan Nunez MD Other screening mammogram (Primary Dx) Social History Tobacco Use Types Packs/Day Years Used Date Smoking Tobacco: Never Assessed Comments Unknown Sex and Gender Information Value Date Recorded Sex Assigned at Not on file Legal Sex Female 3:08 AM SHIPPING AND RECEIVING ASSISTANT Gender Identity Not on file Sexual Orientation Not on file documented as of this encounter Plan of Treatment Not on file documented as of this encounter Visit Diagnoses Diagnosis Other screening mammogram- Primary documented in this encounter Care Teams Information Systems Technician Relationship Specialty Start Date End Date Jhonathan Fisher MD PCP - General 02/24/15 documented as of this encounter
--- OUTSIDE RECORDS SUMMARY | 2024-05-10 01:23 | XMS_ITS | Encounter Summary ---
Author Organization [facility] Address [address] [place] [address] Care Team Providers Care Char Filter Operator Helper Name Role Phone Jhonathan Fisher MD [...] on file Legal Sex Female 3:08 AM FREIGHT TRAFFIC CONSULTANT Gender Identity Not on file Sexual Orientation Not on file documented as of this encounter Plan of Treatment Not on file documented as of this encounter Visit Diagnoses Diagnosis Other screening mammogram- Primary documented in this encounter Care Teams Char Filter Operator Helper Relationship Specialty Start Date End Date Jhonathan Fisher MD PCP - General 02/24/15 documented as of this encounter
--- OUTSIDE RECORDS SUMMARY | 2024-05-10 01:23 | XMS_ITS | Clinical Summary ---
Author Organization [facility] Address [address] [place] [address] Phone Care Team Providers Care Waiter Name Role Phone Jhonathan Fisher MD Primary Care Provider Opal ramírez Social History Tobacco Use Types Packs/Day Years Used Date Smoking Tobacco: Never Assessed Comments Unknown Sex and Gender Information Value Date Recorded Sex Assigned at Not on file Legal Sex Female 3:08 AM MEMORIAL DESIGNER Gender Identity Not on file Sexual Orientation Not on file Plan of Treatment Health Maintenance Due Date Last Done Comments DTAP/TDAP/TD VACCINES (1 - Tdap) 1967 PNEUMOCOCCAL VACCINE 50+ YEARS (1 of 1 - PCV) 04/10/18 99 ZOSTER VACCINE (1 of 2) 1998 OSTEOPOROSIS SCREENING 2013 RSV VACCINE (60+ or ) (1 - 1-dose 75+ series) 2023 INFLUENZA VACCINE (#1) 2023 Insurance [facility] OPEN ACCESS HMO Care Teams Waiter Relationship Specialty Start Date End Date Jhonathan Fisher MD PCP - General 02/24/15
--- OUTSIDE RECORDS SUMMARY | 2024-05-10 01:23 | XMS_ITS | Clinical Summary ---
Author Organization [facility] Address [address] [place] [address] Phone Care Team Providers Care Custom Tailor Name Role Phone Tamia Brooks MD Primary Care Provider [phone] Allergies Active Allergy Reactions Criticality Noted Date [...] Exam 1960 Ophthalmology Exam 1960 COVID-19 Vaccine (2023-2 5 season) 2023 01/18/2021, 05/29/2020, 05/01/2020 Influenza Vaccine (#1) 2023 2, 01/18/2021, 12/30/2019, Additional history exists Pneumococcal PPSV23/PCV13 65 + Years / High and Highest Risk Completed 09/16/2016, 07/10/2015, 01/08/2010 Care Teams Custom Tailor Relationship Specialty Start Date End Date Tamia Brooks MD [address] [phone] PCP - General Internal Medicine 11/11/18
--- OUTSIDE RECORDS SUMMARY | 2024-05-10 01:23 | XMS_ITS | Clinical Summary ---
Author Organization [facility] Address [address] [place] [address] Care Team Providers Care Hazardous Materials Tanker Driver Name Role Phone Unavailable Primary Care Provider [...]
--- OUTSIDE RECORDS SUMMARY | 2024-05-10 01:23 | XMS_ITS | Encounter Summary ---
Author Organization [facility] Address [address] [place] [address] Care Team Providers Care Air Quality Chemist Name Role Phone Jhonathan Fisher MD Primary Care Provider Opal ramírez Encounter Details Date Type Department Care Team (Late st Contact Info) Description 12/23/2005 Outpatient Historical HIS [facility] Banuelos MD [address] [place] [phone] Other Screening Mammogram (Primary Dx) Social History Tobacco Use Types Packs/Day Years Used Date Smoking Tobacco: Never Assessed Comments Unknown Sex and Gender Information Value Date Recorded Sex Assigned at Not on file Legal Sex Female 3:08 AM FILM TOUCH UP INSPECTOR Gender Identity Not on file Sexual Orientation Not on file documented as of this encounter Plan of Treatment Not on file documented as of this encounter Visit Diagnoses Diagnosis Other screening mammogram- Primary documented in this encounter Care Teams Air Quality Chemist Relationship Specialty Start Date End Date Jhonathan Fisher MD PCP - General 02/24/15 documented as of this encounter
--- OUTSIDE RECORDS SUMMARY | 2024-05-10 01:23 | XMS_ITS | Clinical Summary ---
Author Organization [facility] Address [address] [facility] [place] [address] Care Team Providers Care Structures Assembler Name Role Phone Yohan Barros DPM Unavailable [phone] Tamia Brooks MD Primary Care Provider [phone] Tamia Brooks MD Unavailable [phone] Source Comments [facility],non-owned Affiliates and Associated Physician Practices is amultiple site organization consisting of ambulatory clinics and hospital sitesin [place], [place], [place] and [place]. This disclosure is being madepursuant to the Care Everywhere program and may not contain all information available regarding this patient. Last updated 17.[facility] Allergies Active Allergy Reactions Criticality Noted Date [...] Routine general medical exam ination at a [facility] care facility 10/30/2009 07/08/2014 Encounters Date Type Department Care Team Description 05/07/2024 7:41 AM HAIR SPRING WINDER - 05/07/2024 11:59 PM [facility]ING W[facility]ER Hospital Encounter [facility] [address] [place] [address], [address] [place] [address] Shayla España APRN-TERRITORY SUPERVISOR Discharge Disposition: Home or Self Care 05/06/2024 Orders Only [facility] Internal Medicine [address] [place] [address] [place] [phone] Shayla España APRN-TERRITORY SUPERVISOR Hypertension, benign essential 04/29/2024 1:40 PM [facility]ING W[facility]ER Office Visit [facility] Internal Medicine [address] [place] [phone] Shayla España, HOT BILLET SHEAR OPERATOR-TERRITORY SUPERVISOR Hypertension, benign essential (Primary Dx); Abnormal EKG; Fatigue, unspecified type 04/29/2024 Telephone [facility] Internal Medicine [address] [place] [phone] Tamia Brooks MD Update 04/26/2024 Telephone [facility] Internal Medicine [address] [place] [phone] Tamia Brooks MD Blood Pressure 04/19/2024 Telephone [facility] Internal Medicine [address] [place] [address] [place] [phone] Tamia Brooks MD Blood Pressure 04/16/2024 Telephone [facility] Internal Medicine [address] [place] [phone] Tamia Brooks MD Hypertension 04/13/2024 Refill [facility] Internal Medicine [address] [place] [address] [place] [phone] Tamia Brooks MD MEDICATION REFILL 03/30/2024 Telephone [facility] - Internal Medicine [address] [place] [address] [address] [place] [address] Tamia Brooks MD Question 03/24/2024 Telephone [facility] - Internal Medicine [address] [place] [address] [address] [place] [address] Tamia Brooks MD Question 03/05/2024 Patient Outreach [facility] - Care Coordination [address] [place], [place] [address] [address] Lelo Pichardo Outreach Preventive Care from Last 3 Months Immunizations Name Administration [...] Comments Blood Pressure 140/70 05/07/2024 8:13 AM HAIR SPRING WINDER Pulse 64 04/29/2024 12:55 PM HAIR SPRING WINDER Temperature 36.2 C (97.1 F) 04/29/2024 12:55 PM HAIR SPRING WINDER Respiratory Rate 16 04/23/2018 1:13 PM HAIR SPRING WINDER Oxygen Saturation 97% 04/29/2024 12:55 PM HAIR SPRING WINDER Inhaled Oxygen Concentration - - Weight 90.7 kg (200 lb) 05/07/2024 8:13 AM HAIR SPRING WINDER Height 165.1 cm (5' 5 ) 05/07/2024 8:13 AM HAIR SPRING WINDER Body Mass Index 33.28 05/07/2024 8:13 AM HAIR SPRING WINDER Plan of Treatment Upcoming Encounters Date Type Department Care Team (Late st Contact Info) Description 06/29/2024 10:00 AM CDT Office Visit [facility] - Internal Medicine [address] [facility] [address] [place] [address] Tamia Brooks MD [address] [facility] [address] [place] [address] Health Maintenance Due Date Last Done Comments DTAP/TDAP/TD VACCINES (1 - Tdap) 1967 ZOSTER VACCINE (1 of 2) 1998 BONE DENSITY TESTING 03/17/2021 03/17/2019, 09/27/2016, 08/17/2014 DIABETES-FOOT EXAM WITH MONOFILAMENT 02/16/2022 02/16/2021, 01/11/2020, 01/06/2019 DIABETES - URINE PROTEIN SCREENING 03/10/2024 09/23/2023, [...] Completed 12/18/2023, , 12/31/2021, Additional history exists DEPRESSION SCREENING Completed 04/29/2024, 06/18/2023, 09/11/2022, Additional history exists HEPATITIS B VACCINE Aged [...] 140/90 Blood Pressure 140/70( 025 8:13 AM HAIR SPRING WINDER) No Lola Neff MA Procedures Procedure Name Priority Date/Time Associated Diagnosis Comments ECHO COMPLETE W CONTRAST Routine 05/07/2024 8:22 AM HAIR SPRING WINDER Hypertension, benign essential Abnormal EKG EKG 12-LEAD [...] DENSITY AXIAL SKELETON Routine 03/17/2019 10:46 AM HAIR SPRING WINDER Asymptomatic menopausal state Osteopenia, unspecified location HEPATITIS C ANTIBODY Routine 09/26/2016 8:02 AM CDT Need for hepatitis C screening test from Last 3 Months or Most Recently Relevant to Health Maintenance Results * ECHO COMPLETE W CONTRAST (05/07/2024 8:22 AM HAIR SPRING WINDER) IVSd 2D 0.988 cm [facility] I PACS LVIDd 3.783 cm [facility] I PACS LVIDs 2.471 cm [facility] I PACS LVOT diam 1.884 cm [facility] I PACS LVPWd 1.014 cm [facility] I PACS LV biplane EF 63.769 % [facility] PACS LV A2C EF 63.444 % [facility] I PACS LV A4C EF 62.302 % [facility] I PACS LV EDV A2C 72.02 ml [facility] FU JI PACS LV EDV A4C 91.249 ml [facility]U [facility]I PACS LV ESV A2C 26.328 ml [facility]I PACS LV ESV A4C 34.399 ml [facility] PACS LVOT pk grad 6.369 mmHg [facility] pk eduardo 126.185 cm/s [facility] F U PACS LVOT VTI 29.958 cm [facility] I PACS LA size 3.596 cm [facility] I PACS LA vol BP 48.519 ml [facility] I PACS RA area 14.013 cm [facility] AV area pk eduardo 1.762 cm [facility] area cont VTI 1.792 cm [facility] AV pk grad 15.926 mmHg [facility] PACS AV mn grad 9.823 mmHg [facility]I PACS AV pk eduardo 199.537 cm/s [facility] I PACS AV VTI 46.596 cm [facility] I PACS MV A pk eduardo 150.3 cm/s [facility] CV F UJI PACS MV E pk eduardo 140.234 cm/s [facility] F [facility]I PACS MV E' lateral eduardo 6.126 cm/s [facility] MV mn grad 3.53 mmHg [facility] J[facility] PACS MV VTI 62.452 cm [facility] I PACS TAPSE 2.011 cm [facility] I PACS TR pk eduardo 206.874 cm/s [facility] I PACS Ascending aorta 3.197 cm [facility] IVC Diam Expiration 1.897 cm [facility] P[facility] AV area index 0.864 cm /m [facility] PACS LA vol index 0.023 l/m [facility] PACS Dimensionless Index 0.643 unitless [facility] CV [facility] PACS Myocardial strain charge 2 unitless [facility] PACS Anatomical Region Laterality Modality Ultrasound 05/07/2024 8:04 AM HAIR SPRING WINDER Narrative 05/07/2024 10:06 AM HAIR SPRING WINDER Summary * The left ventricle is normal [...] 8:04 AM Patient Status: O/P Study Site: [facility] Primary Location: [facility] EStudy Info Technical Quality: Adequate Exam Type: [...] Provider: Shayla España Attending Physician: Shayla España Gas Stove Servicer Helper: Essie Toribio Left Ventricle The left ventricle [...] 8:04 AM Patient Status: O/P Study Site: [facility] Primary Location: [facility] EStudy Info Technical Quality: Adequate Exam Type: [...] Provider: Shayla España Attending Physician: Shayla España Gas Stove Servicer Helper: Essie Toribio Left Ventricle The left ventricle [...] Jada Ellis on 05/07/2024 10:06 AM Shayla BROWN ECHO CUPID * EKG 12-LEAD (04/29/2024) 04/29/2024 Shayla BROWN ECG ORDERABLES * HEMOGLOBIN A1C - POINT OF CARE (HgbA1C) (11/18/2023 1:25 PM CDT) Hemoglobin A1c POCT 6.4 % [facility] Expiration Date 07.10.[address] [facility] Lot # [id number] [facility] QC Verified Yes Yes [facility] Blood BLOOD SPECIMEN / Unknown 11/18/2023 1:25 PM CDT Tamia Brooks MD LAB - POINT OF CARE ORDERABLES Performing Organization Address City/[facility] Co de Phone Number [facility] [address] [phone] * EYE EXAM (10/15/2023) Anatomical Region Laterality [...] Resulting Agency Comment Lab Testing performed at: [facility] [address] [phone] Tamia Brooks MD LAB - URINE CHEMISTR Y ORDERABLES [facility] INSURANCE BILL [address] [place] [address] * (ABNORMAL) COMPREHENSIVE METABOLIC PANEL (09/23/2023 2:28 [...] Resulting Agency Comment Lab Testing performed at: [address] [phone] Tamia Brooks MD LAB - CHEMISTRY PREETI COSTA [facility] INSURANCE BILL [address] [place] [address] * DEXA BONE DENSITY AXIAL SKELETON (03/17/2019 10:46 AM HAIR SPRING WINDER) Anatomical Region Laterality Modality Nuclear Medicine 03/17/2019 10:5 0 AM HAIR SPRING WINDER Impressions 03/17/2019 10:53 AM HAIR SPRING WINDER Osteopenia of the hips. Normal bone mineral density of the lumbar spine. [employer] DEFINITIONS NORMAL= T-Score at or above -1.0 SD OSTEOPENIA = T-Score between -1 and -2.5 SD OSTEOPOROSIS = T-Score at or below -2.5 SD Reading Radiologist: Kiki Mireles MD on 03/17/2019 at 10:53 AM Narrative 03/17/2019 10:53 AM HAIR SPRING WINDER BONE MINERAL DENSITY STUDY: INDICATION: 68-year-old for [...] HEPATITIS C ANTIBODY (09/26/2016 8:02 AM CDT) [facility] Hepatitis C Antibody <0.1 0.0 - 0.9 s/co ratio [facility] INSURANCE BILL Comment: Negative: < 0.8 Indeterminate: 0.8 - 0.9 Positive: > 0.9 . The CDC recommends that a positive HCV antibody result be followed up with a HCV Nucleic Acid Amplification test (351075). FASTING Blood BLOOD SPECIMEN / Unknown 09/26/2016 8:02 AM CDT 09/26/2016 Narrative Resulting Agency [facility] [address] [facility] [phone] Tamia Brooks MD LAB - CHEMISTRY PREETI COSTA [facility] Organization Address City/State/ZIP Co de Phone Number [facility] INSURANCE BILL [address] [place] [address] from Last 3 Months or Most Recently Relevant to Health Maintenance Care Teams Structures Assembler Relationship Specialty Start Date End Date Tamia Brooks MD [address] [place] [address] PCP - General Internal Medicine 07/26/16 Tamia Brooks MD [address] [place] [address] PCP - Attributed-MSSP 05/08/22 Yohan Barros, DPM [address] [place] [address] Podiatry 05/24/13
--- OUTSIDE RECORDS SUMMARY | 2024-05-10 01:23 | XMS_ITS | Encounter Summary ---
Author Organization [employer] Address 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
[2024-06-24 13:14] VITALS: BMI 33.3
--- NOTE | 2024-06-24 13:38 | PC.NURSE ---
Report to the Outpatient Waiting Room, entrance under the green pavilion located off [facility], at time __11:30AM on date __07/08/24 . Planned Procedure Time: ___1:30PM .? Time changes happen often and if your time is changed the preop area will call you the afternoon before. - You and your visitor will be asked to self-screen and do not enter if you have any COVID symptoms. Please call surgeon if you need to reschedule. - A mask is optional within the hospital at this time. Patients may have clear liquids (water, carbonated beverages, clear teas, apple juice) until 3 hours prior to surgery (10:30AM) with a maximum of 20 ounces. - No food from midnight until time of surgery and no smoking, or chewing tobacco (or any form of nicotine). No chewing gum, candy or mints. Take only the following medications with a SIP of water on the morning of surgery: ____AMLODIPINE, CARVEDILOL DO NOT STOP ANY OF YOUR OTHER PRESCRIPTION MEDICATIONS PRIOR TO SURGERY EXCEPT THE FOLLOWING Hold all vitamins and supplements for 3 days per anesthesiologist.- LAST DOSE 07/04/24 Medications to discontinue per physician __HOLD ASPIRIN 7 DAYS PRE-OP PER DR MANUEL Date to take last dose 06/30/24 Please no make-up, nail vietnamese, hairspray, perfume, deodorant, or body powder the day of surgery.? No jewelry (including any body piercings) or valuables the day of surgery, leave them at home.? Please take a shower or bath the night before, or the morning of, surgery with an antibacterial soap.? Wear comfortable, loose fitting clothing.? - Jewelry must be removed prior to entering the operating room.? Rings and piercings that are not removed may be cut off. - The hospital will not accept responsibility for valuables.? - Please leave all valuables, including medications, at home the day of surgery. If you are going home after surgery, a licensed over the road driver must drive you home.? - NO public transportation without another adult if you receive anesthesia. - We recommend that an adult stay with you for 24 hours following discharge. - We also recommend that you do not drive, make important decision, drink alcoholic beverages, or take any drugs that were not prescribed by your health care provider for at least 24 hours after your discharge time. Follow any additional instructions given to you from your surgeon. Telephone instructions given to ___PATIENT & HUSBAND and asked if any additional questions and then verbalized understanding. Patient advised to call surgeon office or pre surgery nurse liaison [phone] if any additional questions.
--- NOTE | 2024-07-07 14:46 | P.PNAN_ITS ---
Anes - Initial Pre Proc Eval Procedure: Operation Date: 07/08/24 15:30 Proposed Procedures p Right Knee Arthroscopy, Partial Medial Meniscectomy - Ankit Thomason MD Date/Time: 07/07/24 14:46 Surgeon: Ankit Thomason MD Pre Op Diagnosis: right knee medial meniscal tear Patient Data Age: 74 Gender: F Height: 1.65 m Weight: 91 kg Allergies Allergy/AdvReac Type Severity Reaction Status Date / Time propoxyphene AdvReac Unknown Nausea Verified 07/08/24 14:34 Home Medications ?Medication ?Instructions ?Recorded ?Confirmed ?Type aluminum-mag hydroxide-simethicone 10 ml PO QID PRN indigestion 06/11/23 06/23/24 Rx 200 mg-200 mg-20 mg/5 mL oral susp #3,000 mL (Antacid) lisinopril 40 mg tablet 40 mg PO DAILY #30 tabs 06/11/23 06/23/24 Rx glucosamine sulf dipot 1 cap PO DAILY 09/10/23 06/23/24 History chlr,msm,chond 550 mg-C 30 mg-samson 1 mg capsule (Glucosamine Chondroitin) rosuvastatin 10 mg tablet 10 mg PO HS 09/10/23 06/23/24 History amlodipine 10 mg tablet (Norvasc) 10 mg PO DAILY 04/27/24 06/23/24 History aspirin 81 mg tablet,delayed 81 mg PO DAILY 04/27/24 07/08/24 History release (Adult Aspirin Regimen) carvedilol 6.25 mg tablet 6.25 mg PO Q12H 04/27/24 06/24/24 History lansoprazole 30 mg capsule,delayed 30 mg PO DAILY PRN GERD 04/27/24 06/23/24 History release aspirin 81 mg tablet,delayed 81 mg PO BID 14 days #28 tabs 07/08/24 Rx release hydrocodone 5 mg-acetaminophen 325 1 - 2 tablet PO Q4-6H PRN pain 7 07/08/24 Rx mg tablet days #30 tabs Patient hx anesthesia problems: none Family hx anesthesia problems: none Results Review: All pre-operative results and documents have been reviewed as part of the pre- operative evaluation. [facility] Past Medical History Medical History (Updated 07/08/24 @ 07:22 by RADHA Fernandez) CKD (chronic kidney disease), stage III DAILY (obstructive sleep apnea) HLD (hyperlipidemia) History of COVID-19 GERD (gastroesophageal reflux disease) Social History Social History Smoking packs per day: 0.1 Smoking cigarettes per day: 2.0 Years smoked: 25 Smoking pack-years: 2.50 Smoking status: Former smoker Tobacco type: cigarettes Smoking end date: 09/07/94 Living arrangements: with family Additional living arrangements comments: Resides in [place] for 2.5 months/year Spiritual care concerns: No Anes - Eval Final PreProcedure Day of Procedure 07/07/24 14:46 Patient weight: obese Heart: regular rate and rhythm Lungs: clear to auscultation Airway: Mallampati scale class II Neurological: alert and oriented Last oral intake: >/= 8 hours ASA classification: III Emergent: no Anesthetic plan: proceed Anesthesia type and monitoring: general LMA and standard monitoring Results Review: All pre-operative results and documents have been reviewed as part of the pre- operative evaluation. Informed Consent: The patient's anesthetic plan and its attendant risks and benefits were discussed with the patient/family/POA. Questions were solicited and answers provided to the satisfaction of the patient/family/POA.
[2024-07-08] VITALS (8 sets, daily range): BP systolic 121–141; BP diastolic 63–74; PULSE 56–66; RESP 14–19; TEMP 36.3–36.8; O2SAT 98–100
--- OUTSIDE RECORDS SUMMARY | 2024-07-08 02:09 | XMS_ITS | Encounter Summary ---
Author Organization [facility] Address 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
--- OUTSIDE RECORDS SUMMARY | 2024-07-08 02:09 | XMS_ITS | Encounter Summary ---
Author Organization [facility] Address [address] [place] [address] Care Team Providers Care Folder Gluer Operator Name Role Phone Jhonathan Fisher MD Primary Care Provider Opal ramírez Encounter Details Date Type Department Care Team (Late st Contact Info) Description 01/02/2004 Outpatient Historical HIS [facility] Alex Salmon MD [address] [facility] [address] [place] [address] SCREENING MAMM-MALIG NEOPL-HI RISK (Primary Dx) Social History Tobacco Use Types Packs/Day Years Used Date Smoking Tobacco: Never Assessed Comments Unknown Sex and Gender Information Value Date Recorded Sex Assigned at Not on file 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
--- OUTSIDE RECORDS SUMMARY | 2024-07-08 02:09 | XMS_ITS | Encounter Summary ---
Author Organization [employer] Address 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
--- OUTSIDE RECORDS SUMMARY | 2024-07-08 02:09 | XMS_ITS | Encounter Summary ---
Author Organization [facility] Address 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
--- OUTSIDE RECORDS SUMMARY | 2024-07-08 02:09 | XMS_ITS | Encounter Summary ---
Author Organization [facility] Address [address] [facility] [place] [address] Care Team Providers Care Wind Turbine Sheet Metal Worker Name Role Phone Yohan Barros DPM Unavailable [phone] Tamia Brooks MD Primary Care Provider [phone] Tamia Brooks MD Unavailable [phone] Reason for Visit * Reason Onset Date Comments Question 03/30/2024 Encounter Details Date Type Department Care Team (Late st Contact Info) Description 03/30/2024 Telephone [facility] Medical 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 Calling again today to report she continues to get calls from someone identifying themselves as Dr Brooks and from [facility]. Pt has tried blocking phone number butstates they have called on at least 30 different numbers. Pt is asking if there is anything that can be done or who she can report this to in order to stop these calls. VERY SPECIALIST * Telephone Encounter - Brenda Zambrano - [...] to get back to them? NO VERY SPECIALIST documented in this encounter Plan of Treatment Upcoming Encounters Date Type Department Care Team (Late st Contact Info) Description 12/07/2024 9:20 AM CDT Office Visit [facility] Medical [facility] - Internal Medicine [address] [place] [address] [address] [place] [address] Tamia Brooks MD [address] [place] [address] [address] [place] [address] 12/14/2024 9:45 AM CDT Office Visit [facility] Heart & Vascular Care [address] [place] [address] [address] [place], [place] [phone] Oumar Amaral MD [address] [place] [address] [address] [place] [address] documented as of this encounter Goals Goal Patient Goal Type Associated Problems Recent Progress Patient-Stated? Author Blood Pressure < 140/90 Blood Pressure 118/62( 025 9:58 AM CDT) Lola Serna MA documented as of this encounter Visit Diagnoses Not on filedocumented in this encounter Care Teams Wind Turbine Sheet Metal Worker Relationship Specialty Start Date End Date Tamia Brooks MD [address] [place] [address] PCP - General Internal Medicine 07/26/16 Tamia Brooks MD [address] [place] [address] PCP - Attributed-MSSP 05/08/22 Yohan Barros DPM [address] [place] [address] [place] [phone] Podiatry 05/24/13 documented as of this encounter
--- OUTSIDE RECORDS SUMMARY | 2024-07-08 02:09 | XMS_ITS | Clinical Summary ---
Author Organization [facility] Address [address] [facility] [place] [address] Care Team Providers Care Finger Waver Name Role Phone Yohan Barros DPM Unavailable [phone] Tamia Brooks MD Primary Care Provider [phone] Tamia Brooks MD Unavailable [phone] Source Comments [facility],non-owned Affiliates and Associated Physician Practices is amultiple site organization consisting of ambulatory clinics and hospital sitesin [place], [place], [place] and [place]. This disclosure is being madepursuant to the Care Everywhere program and may not contain all information available regarding this patient. Last updated 17.[facility] Allergies Active Allergy Reactions Criticality Noted Date Comments Darvon Nausea and/or Vomiting,Dizziness Medications * Be aware that medications may not be up to date on this document. Alwaysverify current medications with the patient. Cetirizine HCl (ZYRTEC PO) Take by mouth nightly as needed Active Cholecalciferol (VITAMIN D-3) 1000 UNITS Take by mouth once daily Active calcium 600 MG tablet Take 2 (two) tablets by mouth daily with food Active glucosamine-chond roitin (GLUCOSAMINE CHONDR COMPLEX) 500-400 MG capsuleIndication s:Prediabetes,Blessing adele osteoarthritis of right hip Take 1 capsule by mouth once daily 30 capsule 5 05/13/2 018 Active blood glucose test stripIndications: Type 2 diabetes mellitus with stage 3a chronic kidney disease, without long-term current use of insulin (HCC) Use 1 (one) strip as directed 100 strip 023 Active lansoprazole (Prevacid) 15 MG capsuleIndication s:Gastroesophagea l reflux disease, unspecified whether esophagitis present TAKE 1 TO 2 CAPSULES ONCE DAILY TO IMPROVE HEARTBURN SYMPTOMS FOR GASTROESOPHAGEAL REFLUX DISEASE 180 capsule 3 024 Active lisinopril (Prinivil; Zestril) 40 MG tabletIndications :Benign essential hypertension,Stag e 3b chronic kidney disease (HCC) Take 1 (one) tablet by mouth once daily 30 tablet 1 025 Active amLODIPine (Norvasc) 10 MG tabletIndications :Hypertension Take 1 (one) tablet by mouth once daily Reasons: High Blood Pressure 30 tablet 1 025 Active carvedilol (Coreg) 6.25 MG tabletIndications :Benign essential hypertension Take 1 (one) tablet by mouth 2 times daily with morning and evening meal 60 tablet 1 025 Active sucralfate (Carafate) 1 GM tabletIndications :Gastroesophageal reflux disease, unspecified whether esophagitis present Take 1 (one) tablet by mouth 4 times daily as needed 45 tablet 2 025 Active metoclopramide (Reglan) 10 MG tabletIndications :Gastroesophageal reflux disease, unspecified whether esophagitis present Take 1 (one) tablet by mouth 3 times daily before meals 90 tablet 4 025 Active rosuvastatin (Crestor) 10 MG tabletIndications :Mixed hyperlipidemia TAKE 1 TABLET DAILY 90 tablet 1 025 Active rosuvastatin (Crestor) 10 MG tabletIndications :Mixed hyperlipidemia TAKE 1 TABLET DAILY 90 tablet 3 024 2024 Disconti nued(Reo rder) metoclopramide (Reglan) 10 MG tabletIndications :Gastroesophageal reflux disease, unspecified whether esophagitis present Take 1 (one) tablet by mouth 3 times daily before meals 90 tablet 4 024 2024 Disconti nued(Reo rder) sucralfate (Carafate) 1 GM tabletIndications :Gastroesophageal reflux disease, unspecified whether esophagitis present Take 1 (one) tablet by mouth 4 times daily as needed 45 tablet 2 2024 Disconti nued(Reo rder) methylPREDNISolon e (Medrol Dosepak) 4 MG tablet Take by mouth as directed Take as directed by mouth per package instructions. 21 tablet 2024 Disconti nued(Lis t Clean-Up ) Active Problems Problem Noted Date Diagnosed Date [...] mL/min/1.73 40 (L) 47 (L) GFR 09-26-17, 3 Situational mixed anxiety and depressive disorde r 01/17/2014 Primary osteoarthritis of both knees 10/27/2012 Anhydrotic dermatitis of foot 04/27/12 04/27/2012 Allergic rhinitis 09/20/2008 Hypertension, benign essential 09/20/2008 Hyperlipidemia 09/20/2008 Resolved Problems Problem Noted Date Diagnosed Date Resolved Date BMI 35.0-35.9,adult 05/13/2017 06/18/19 24 Chronic insomnia 07/19/2014 02/20/2022 Prediabetes 10/27/2012 06/29/2024 Physical exam, annual 04/27/20122017 Routine general medical exam ination at a health care facility 02/28/11 02/28/2011 07/08/2014 Routine general medical exam ination at a health care facility 10/30/2009 07/08/2014 Encounters Date Type Department Care Team Description 06/29/2024 10:00 AM CDT Office Visit [facility] - Internal Medicine [address] [place] [address] [address] [place] [address] Tamia Brooks MD Routine general medical examination at health care facility (Primary Dx); Type 2 diabetes mellitus with stage 3a chronic kidney disease, without long-term current use of insulin (HCC); Hypertension, benign essential; Chronic diastolic congestive heart failure (HCC); DAILY on CPAP; Osteopenia, unspecified location; Mixed hyperlipidemia; Class 1 obesity due to excess calories with serious comorbidity and body mass index (BMI) of 33.0 to 33.9 in adult; PLMD (periodic limb movement disorder); Stage 3b chronic kidney disease (HCC); Primary osteoarthritis of both knees; Gastroesophageal reflux disease, unspecified whether esophagitis present; Asymptomatic postmenopausal state 06/14/2024 8:30 AM CDT Office Visit [facility] [address] [place] [address] [address] [place] [address] Shayla España, FELT HANGER-LIQUOR GRINDER MILL OPERATOR Oumar Amaral MD Preop cardiovascular exam (Primary Dx); Hypertension, benign essential; Abnormal EKG; Dyslipidemia; Class 1 obesity with body mass index (BMI) of 32.0 to 32.9 in adult, unspecified obesity type, unspecified whether serious comorbidity present 05/13/2024 Telephone [facility] - Internal Medicine [address] [place] [address] [address] [place] [address] Tamia Brooks MD Heart Problem 05/10/2024 Telephone [facility] - Internal Medicine [address] [place] [address] [address] [place] [address] Tamia Brooks MD Results 05/07/2024 7:41 AM EMERGENCY VETERINARY ASSISTANT - 05/07/2024 11:59 PM EMERGENCY VETERINARY ASSISTANT Hospital Encounter [facility] Heart [facility] Care [address] [place] [address], [address] [place] [address] Shayla España APRN-LIQUOR GRINDER MILL OPERATOR Discharge Disposition: Home or Self Care 05/06/2024 Orders Only [facility] - Internal Medicine [address] [address] Bita Españae L, FELT HANGER-LIQUOR GRINDER MILL OPERATOR Hypertension, benign essential 04/29/2024 1:40 PM EMERGENCY VETERINARY ASSISTANT Office Visit [facility] Internal Medicine [address] [place] [phone] Bita Españae L, FELT HANGER-LIQUOR GRINDER MILL OPERATOR Hypertension, benign essential (Primary Dx); Abnormal EKG; Fatigue, unspecified type 04/29/2024 Telephone [facility] Internal Medicine [address] [place] [phone] Tamia Brooks MD Update 04/26/2024 Telephone [facility] Medicine [address] [place] [phone] Tamia Brooks MD Blood Pressure 04/19/[address] [phone] Tamia Brooks MD Blood Pressure 04/16/[address] [phone] Tamia Brooks MD Hypertension 04/13/2024 Refill [facility] Medicine [address] [place] [phone] Tamia Brooks MD MEDICATION REFILL from Last 3 Months Immunizations Immunization Administration Dates Next Due INFLUENZA VACCINE, TRIV. [...] Date Recorded Patient Health Questionnaire-2 Score 0 06/29/2024 Comments No Sex and Gender Information Value Date Recorded Sex Assigned at Not on file Legal Sex Female 6:24 AM EMERGENCY VETERINARY ASSISTANT Gender Identity Female 11/22/2016 11:14 AM CDT Sexual Orientation Not on file Last Filed Vital Signs Vital Sign Reading Time Taken Comments Blood Pressure 118/62 06/29/2024 9:58 AM CDT Pulse 57 06/29/2024 9:58 AM CDT Temperature 36.2 C (97.2 F) 06/29/2024 9:58 AM CDT Respiratory Rate 16 04/23/2018 1:13 PM EMERGENCY VETERINARY ASSISTANT Oxygen Saturation 96% 06/29/2024 9:58 AM CDT Inhaled Oxygen Concentration - - Weight 90.5 kg (199 lb 9.6 oz) 06/29/2024 9:58 A M CDT Height 165.1 cm (5' 5 ) 06/29/2024 9:58 AM CDT Body Mass Index 33.22 06/29/2024 9:58 AM CDT Plan of Treatment Upcoming Encounters Date Type Department Care Team (Late st Contact Info) Description 12/07/2024 9:20 AM CDT Office Visit [facility] - Internal Medicine [address] [place] [address] [address] [place] [address] Tamia Brooks MD [address] [place] [address] [address] [place] [address] 12/14/2024 9:45 AM CDT Office Visit [facility] Heart [facility] Vascular Care [address] [place] [address] [address] [place], [place] [phone] Oumar Amaral MD [address] [place] [address] [address] [place] [address] Health Maintenance Due Date Last Done Comments DTAP/TDAP/TD VACCINES (1 - Tdap) 1967 ZOSTER VACCINE (1 of 2) 1998 BONE DENSITY TESTING 03/17/2021 03/17/2019, 09/27/2016, 08/17/2014 DIABETES-FOOT EXAM WITH MONOFILAMENT 02/16/2022 02/16/2021, 01/11/2020, 01/06/2019 DIABETES - URINE PROTEIN SCREENING 03/10/2024 09/23/2023, 02/11/2020 COVID-19 VACCINE ( season) 2024 12/18/2023, 12/05/2022, 02/20/2022, Additional history exists DIABETES-SERUM CREATININE 09/22/20242023, 01/12/2021, 02/11/2020, Additional history exists DIABETES-HGB A1C 12/29/2024 06/29/2024, 12/2023, 06/18/2023, Additional history exists MEDICARE AWV 12 MONTHS 06/29/2025 06/29/2024, 06/18/2023, 02/20/2022, Additional history exists DIABETES RETINOPATHY SCREENING 10/14/2025 10/15/2023, 06/18/2022, 12/07/2018 PNEUMOCOCCAL VACCINE 50+ Completed 017, 07/10/2015, 01/08/2010 HEPATITIS C SCREENING Completed 09/26/2016 Respiratory Syncytial Virus (RSV) Vaccine Pt: or over 60 yrs Completed 12/05/2022, 12/05/2022 INFLUENZA VACCINE Completed 12/18/2023, , 12/31/2021, Additional [...] complete this topic MENINGOCOCCAL (Group B) VACCINE SHARED DECISION-MAKING Aged Out No longer eligible based on patient's age to complete this topic MENINGOCOCCAL GROUPS A/C/Y/W VACCINE Aged Out No longer eligible based on patient's age to complete this topic Goals Goal Patient Goal Type Associated Problems Recent Progress Patient-Stated? Author Blood Pressure < 140/90 Blood Pressure 118/62( 025 9:58 AM CDT) Lola Serna MA Procedures Procedure Name Priority Date/Time Associated Diagnosis Comments HEMOGLOBIN A1C - POINT OF CARE (AMB) Routine 06/29/2024 10:12 AM CDT Type 2 diabetes mellitus with stage 3a chronic kidney disease, without long-term current use of insulin (HCC) MAMMOGRAM 06/10/2024 ECHO COMPLETE W CONTRAST Routine 05/07/2024 8:22 AM EMERGENCY VETERINARY ASSISTANT Hypertension, benign essential Abnormal EKG EKG 12-LEAD Routine 04/29/2024 Hypertension, benign essential EYE EXAM 10/15/2023 MICROALB/CREAT RATIO URINE RANDOM PANEL Routine 09/23/2023 2:28 PM CDT Hypertension, benign essential Stage 3b chronic kidney disease COMPREHENSIVE METABOLIC PANEL Routine 09/23/2023 2:28 PM CDT Type 2 diabetes mellitus with stage 3a chronic kidney disease, without long-term current use of insulin DEXA BONE DENSITY AXIAL SKELETON Routine 03/17/2019 10:46 AM EMERGENCY VETERINARY ASSISTANT Asymptomatic menopausal state Osteopenia, unspecified location HEPATITIS C ANTIBODY Routine 09/26/2016 8:02 AM CDT Need for hepatitis C screening test from Last 3 Months or Most Recently Relevant to Health Maintenance Results * HEMOGLOBIN A1C - POINT OF CARE (HgbA1C) (06/29/2024 10:12 AM CDT) Hemoglobin A1c POCT 6.7 % [facility] Expiration Date 01/26/[address] [facility] Lot # [id number] [facility] QC Verified Yes Yes [facility] Blood BLOOD SPECIMEN / Unknown 06/29/2024 10:12 AM CDT us Tamia Brooks MD LAB - POINT OF CARE ORDERABLES Final Result [facility] [address], [place] [address], [facility] [phone] * MAMMOGRAM (06/10/2024) Anatomical Region Laterality Modality Other 06/10/2024 Narrative 06/10/2024 Ordered by an unspecified provider. us Scanned Document SCANNING ONLY Final Result * ECHO COMPLETE W CONTRAST (05/07/2024 8:22 AM EMERGENCY VETERINARY ASSISTANT) IVSd 2D 0.988 cm [facility] CV FUJ [...] Region Laterality Modality Ultrasound 05/07/2024 8:04 AM EMERGENCY VETERINARY ASSISTANT Narrative 05/07/2024 10:06 AM EMERGENCY VETERINARY ASSISTANT Summary * The left ventricle is normal [...] 8:04 AM Patient Status: O/P Study Site: [facility] Primary Location: [facility] EStudy Info Technical Quality: Adequate Exam [...] Provider: Shayla España Attending Physician: Shayla España Ict Account Manager: Essie Toribio Left Ventricle The left ventricle [...] 8:04 AM Patient Status: O/P Study Site: [facility] Primary Location: [facility] EStudy Info Technical Quality: Adequate Exam [...] Provider: Shayla España Attending Physician: Shayla España Ict Account Manager: Essie Toribio Left Ventricle The left ventricle [...] by Jada Ellis on 05/07/2024 10:06 AM us Shayla España FELT HANGER-LIQUOR GRINDER MILL OPERATOR ECHO CUPID Final Result * EKG 12-LEAD (04/29/2024) 04/29/2024 us Shyala España FELT HANGER-LIQUOR GRINDER MILL OPERATOR ECG ORDERABLES Final Result * EYE EXAM (10/15/2023) Anatomical Region Laterality Modality Other 10/15/2023 Narrative 10/15/2023 Ordered by an unspecified provider. us Scanned Document SCANNING ONLY Final Result * MICROALB/CREAT RATIO URINE RANDOM PANEL (09/23/2023 2:28 PM CDT) Creatinine Urine 138.17 mg/dL [facility] INSURANCE BILL Microalbumin Urine 3.5 mg/dL [facility] INSURANCE BILL Microalbumin/Crea tinine Ratio 25 <30 mg/g [facility] INSURANCE BILL Urine URINE SPECIMEN OBTAINED BY CLEAN CATCH PROCEDURE / Unknown 09/23/2023 2:28 PM CDT 09/23/2023 Narrative Resulting Agency Comment Lab Testing performed at: [facility] [address] [place] [phone] us Tamia Brooks MD LAB - URINE CHEMISTRY ORDERABL ES Final Result [facility] INSURANCE BILL [address] [place] [address] * (ABNORMAL) COMPREHENSIVE METABOLIC PANEL (09/23/2023 2:28 [...] Agency Comment Lab Testing performed at: [facility] [address] [place] [phone] Tamia Brooks MD LAB - CHEMISTRY ORDERABLES Fin al Result [facility] INSURANCE BILL [address] [place] [address] * DEXA BONE DENSITY AXIAL SKELETON (03/17/2019 10:46 AM EMERGENCY VETERINARY ASSISTANT) Anatomical Region Laterality Modality Nuclear Medicine 03/17/2019 10:5 0 AM EMERGENCY VETERINARY ASSISTANT Impressions 03/17/2019 10:53 AM EMERGENCY VETERINARY ASSISTANT Osteopenia of the hips. Normal bone mineral density of the lumbar spine. WORLD HEALTH [employer]IZATION DEFINITIONS NORMAL= T-Score at or above -1.0 SD OSTEOPENIA = T-Score between -1 and -2.5 SD OSTEOPOROSIS = T-Score at or below -2.5 SD Reading Radiologist: Kiki Mireles MD on 03/17/2019 at 10:53 AM Narrative 03/17/2019 10:53 AM EMERGENCY VETERINARY ASSISTANT BONE MINERAL DENSITY STUDY: INDICATION: 68-year-old for [...] 10:53 AM Tamia Brooks MD DEXA ORDERABLES Final Result * HEPATITIS C ANTIBODY (09/26/2016 8:02 AM CDT) Hepatitis C Antibody <0.1 0.0 - 0.9 s/co ratio [facility] INSURANCE BILL Comment: Negative: < 0.8 Indeterminate: 0.8 - 0.9 Positive: > 0.9 . The CDC recommends that a positive HCV antibody result be followed up with a HCV Nucleic Acid Amplification test (972400). FASTING Blood BLOOD SPECIMEN / Unknown 09/26/2016 8:02 AM CDT 09/26/2016 Narrative Resulting Agency [facility] [address] [facility] [phone] Tamia Brooks MD LAB - CHEMISTRY ORDERABLES Fin al Result [facility] INSURANCE BILL [address] [place] [address] from Last 3 Months or Most Recently Relevant to Health Maintenance Insurance MEDICARE [facility] Address: [facility] [address] [place] [address] [facility] MEDICARE * Guarantor: MAURA WATKINS Account Type Relation to Patient Date of Phone Billing Address Personal/Family [address] [place], [place] MEDICARE * Guarantor: MAURA WATKINS Account Type Relation to Patient Date of Phone Billing Address Personal/Family [address] [place], [place] * Guarantor: MAURA WATKINS Account Type Relation to Patient Date of Phone Billing Address Personal/Family [address] [place] [address] Care Teams Finger Waver Relationship Specialty [place] [address] [place] [address] [address] [place] [phone] PCP - General Internal Medicine 07/26/16 Tamia Brooks MD [address] [facility] [address] [place] [address] PCP - Attributed-MSSP 05/08/22 Yohan Barros DPM [facility] [address] [phone] Podiatry 05/24/13
--- OUTSIDE RECORDS SUMMARY | 2024-07-08 02:09 | XMS_ITS | Encounter Summary ---
Author Organization [facility] Address [address] [place] [address] Care Team Providers Care Division Commander Name Role Phone Jhonathan Fisher MD Primary Care Provider Opal ramírez Encounter Details Date Type Department Care Team (Late st Contact Info) Description 12/23/2005 Outpatient Historical [facility] Raz Banuelos MD [address] [place] [phone] Other Screening Mammogram (Primary Dx) Social History Tobacco Use Types Packs/Day Years Used Date Smoking Tobacco: Never Assessed Comments Unknown Sex and Gender Information Value Date Recorded Sex Assigned at Not on file Legal Sex Female 3:08 AM ASSEMBLY LEAD PERSON Gender Identity Not on file Sexual Orientation Not on file documented as of this encounter Plan of Treatment Not on file documented as of this encounter Visit Diagnoses Diagnosis Other screening mammogram- Primary documented in this encounter Care Teams Division Commander Relationship Specialty Start Date End Date Jhonathan Fisher MD PCP - General 02/24/15 documented as of this encounter
--- OUTSIDE RECORDS SUMMARY | 2024-07-08 02:09 | XMS_ITS | Clinical Summary ---
Author Organization [facility] Address [address] [place] [phone] Phone Care Team Providers Care Complaint Manager Name Role Phone Tamia Brooks MD Primary Care Provider [phone] Allergies Active Allergy Reactions Criticality Noted Date Comments Propoxyphene Dizziness,Nausea And Vomiting 09/07 Medications Multiple Vitamin (MULTIVITAMIN) capsule 1 daily 0 06/13/2017 Active gabapentin (NEURONTIN) 300 MG capsule 1 tid 0 05/11/2018 Active calcium carbonate (TUMS) 500 MG chewable tablet 1 bid 0 07/17/2017 Active cholecalciferol (VITAMIN D-3) 1000 units tablet 2 daily 0 06/13/2017 Active clotrimazole-bet amethasone (LOTRISONE) cream apply bid to aff area 0 06/13/2017 Active Calcium Citrate 200 MG tablet 600mg daily 0 07/17/2017 Act cleo cetirizine (ZyrTEC) 10 MG tablet 1 daily prn 0 06/13/2017 Active cetirizine (ZyrTEC ALLERGY) 10 MG tablet 1 daily 0 07/17/2017 Active Glucosamine-Gilberto droit-Vit C-Mn (GLUCOSAMINE-CHO NDROITIN) capsule 1 daily 0 06/13/2017 Active amLODIPine (NORVASC) 5 MG tablet 1 daily 0 07/17/2017 Active rosuvastatin (CRESTOR) 10 MG tablet 10/05/2019 Active OneTouch Delica Lancets 33G misc 1 each daily 11/13/2018 Active glucose blood test strip 1 strip daily 01/06/2019 Active metoclopramide (REGLAN) 5 MG tablet 06/06/2020 Active lansoprazole (PREVACID) [address] capsule 06/26/2021 Active lisinopril (PRINIVIL) 40 MG tablet Take 1 tablet (40 mg total) by mouth 1 (one) time each day 90 tablet 3 07/11/2021 Active hydroCHLOROthiaz glenn (HYDRODIURIL) 25 MG tablet Take 1 tablet [...] diastolic dysfunction, and elevated filling pressures Immunizations Immunization Administration Dates Next Due Fluzone High-Dose 12/30/2019 [...] drink = 0.6 oz pur e alcohol) Comments Unknown Sex and Gender Information Value Date Recorded Sex Assigned at Not on file Legal Sex Female 7:38 AM [facility] Gender Identity Not on file Sexual Orientation [...] season) 2023 01/18/2021, 05/29/2020, 05/01/2020 Influenza Vaccine (Season Ended) 2024 12/05/2021, 01/18/2021, 12/30/2019, Additional history exists Pneumococcal PPSV23/PCV13 65 + Years / High and Highest Risk Completed 09/16/2016, 07/10/2015, 01/08/2010 Insurance MEDICARE [facility] Care Teams Complaint Manager Relationship Specialty Start Date End Date Tamia Brooks MD [address] [phone] PCP - General Internal Medicine 11/11/18
--- OUTSIDE RECORDS SUMMARY | 2024-07-08 02:09 | XMS_ITS | Encounter Summary ---
Author Organization [employer] [facility] Address [address] [place] [address] Care Team Providers Care Ship Superintendent Name Role Phone Jhonathan Fisher MD [...] on file Legal Sex Female 3:08 AM SCHOOL BUS OPERATOR Gender Identity Not on file Sexual Orientation Not on file documented as of this encounter Plan of Treatment Not on file documented as of this encounter Visit Diagnoses Diagnosis Other screening mammogram- Primary documented in this encounter Care Teams Ship Superintendent Relationship Specialty Start Date End Date Jhonathan Fisher MD PCP - General 02/24/15 documented as of this encounter
--- OUTSIDE RECORDS SUMMARY | 2024-07-08 02:09 | XMS_ITS | Encounter Summary ---
Author Organization [facility] Address [address] [facility] [place] [address] Care Team Providers Care Iv Therapy Nurse Name Role Phone Yohan Barros DPM Unavailable [phone] Tamia Brooks MD Primary Care Provider Tamia Brooks MD Unavailable [phone] Reason for Visit * Reason Onset Date Comments Blood Pressure 04/26/2024 Encounter Details Date Type Department Care Team (Late st Contact Info) Description 04/26/2024 Telephone [facility] - Internal Medicine [address] [address] Tamia Brooks MD [address] [place] [address] Blood Pressure Social History Tobacco Use Types Packs/Day Years Used Date Smoking Tobacco: Former Cigarettes 0.2 12 0 03/10/1978 - 03/10/1990 Smokeless Tobacco: Never Alcohol Use Standard Drinks/Week Comments Yes 0 (1 standard drink = 0.6 oz pur e alcohol) occ PHQ-2 Answer Date Recorded Patient Health Questionnaire-2 Score 0 04/29/2024 Comments No Sex and Gender Information Value Date Recorded Sex Assigned at Not on file Legal Sex Female 6:24 AM LOGISTICS OPERATIONS DIRECTOR Gender Identity Female 11/22/2016 11:14 AM CDT Sexual Orientation Not on file documented as of this encounter Functional Status * Over the past 2 weeks, how often have you been bothered by any of the following problems? Question Answer Date of Assessment Author Little interest or pleasure in doing things Not at all 04/29/2024 12:58 PM LOGISTICS OPERATIONS DIRECTOR Amira Watson MA Feeling down, depressed, or hopeless Not at all 04/29/2024 12:58 PM LOGISTICS OPERATIONS DIRECTOR Amira Watson MA Patient Health Questionnaire -2 Score 0 04/29/2024 12:58 PM LOGISTICS OPERATIONS DIRECTOR Amira Watson MA documented as of this encounter Miscellaneous Notes * Telephone Encounter - Tamia Brooks MD - 04/26/2024 4:27 PM CST Add coreg 6.25 mg BID. Orders Placed This Encounter carvedilol (Coreg) 6.25 MG tablet Sig: Take 1 (one) tablet by mouth 2 times daily with morning and evening meal Dispense: 60 tablet Refill: 1 STICS OPERATIONS DIRECTOR * Telephone Encounter - Audra Bernal - 04/26/2024 2:14 PM CST BP readings after starting Amlodopine: 04/19 - pre PT 154/81 pulse 110, post PT 142/82 pulse 90, BT 182/110 pulse 86 11 - am 149/90 pulse 91, pm 176/107 pulse 87 2/12 - am 150/88 pulse 86, pm 175/91 pulse 85 2/13 - am 175/84 pulse 101, pm 174/85 pulse 102 2/14 - am 158/89 pulse 85, pm 187/96 pulse 94 2/15 - am 171/95 pulse 86, pm 194/91 pulse 92 2/16 - am 136/79 pulse 86, pm 177/94 pulse 95 /17 - 9 am 150/88 pulse 71, 1021 am before PT 129/82 pulse 98, after PT 119/77 pulse 99 STICS OPERATIONS DIRECTOR documented in this encounter Plan of Treatment Upcoming Encounters Date Type Department Care Team (Late st Contact Info) Description 12/07/2024 9:20 AM CDT Office Visit [facility] - Internal Medicine [address] [address] Tamia Brooks MD [address] [place] [address] 12/14/2024 9:45 AM CDT Office Visit [facility] [address] [facility] [address] [place] [address] Oumar Amaral MD [address] [facility] [address] [place] [id number] documented as of this encounter Goals Goal Patient Goal Type Associated Problems Recent Progress Patient-Stated? Author Blood Pressure < 140/90 Blood Pressure 118/62( 025 9:58 AM CDT) Lola Serna MA documented as of this encounter Visit Diagnoses Diagnosis Benign essential hypertension- Primary Essential hypertension, benign documented in this encounter Care Teams Iv Therapy Nurse Relationship Specialty Start Date End Date Tamia Brooks MD [address] [facility] [address] [place] [address] PCP - General Internal Medicine 07/26/16 Tamia Brooks MD [address] [facility] [address] [place] [address] PCP - Attributed-MSSP 05/08/22 Yohan Barros, DPM [address] [facility] [address] [place] [address] Podiatry 05/24/13 documented as of this encounter
--- OUTSIDE RECORDS SUMMARY | 2024-07-08 02:09 | XMS_ITS | Encounter Summary ---
Author Organization [facility] Address 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
--- OUTSIDE RECORDS SUMMARY | 2024-07-08 02:09 | XMS_ITS | Continuity of Care Document ---
Author Organization [facility] Address [address] [address] Phone Care Team Providers Care Flare Breaker Name Role Phone Daniel PONCE, Jose Unavailable Unavailable Allergies, Adverse Reactions, Alerts Substance Reaction Status Criticality No Known Allergies Active No Inform ation Medications Medication Instructions Dosage Effective Dates (start - stop) Status Comments LISINOPRIL (unknown strength) Not Available - Active ATORVASTATIN CALCIUM (unknown strength) Not Available - Active AMLODIPINE BESYLATE (unknown strength) Not Available - Active OMEPRAZOLE (unknown strength) Not Available - Active Procedures Procedure Date OFFICE/OUTPATIENT VISIT [facility] OFFICE/OUTPATIENT VISIT [facility] Advance Directives Directive Yes / No Effective Date File Name No Information Encounters Encounter Description Practice Location Reason(s) For Visit Diagnoses Date Provider Providers Copied on Encounter OFFICE/OUTPA TIENT VISIT EST [facility], [address], [address], [place] tel:[phone] [facility] Ruptured Bakers cystGastrocnemi us strain, right, subsequent encounter Sep-1 6 Sucher Jose. [address] [address], [place], [address]. tel: [phone] [facility], [address] [place] [address] [address], [place], [facility], [place] tel:[phone] [facility] Pain of right lower extremity Sep-0 6 Sucher Jose. [address] [address], [place], [address]. tel: [phone] OFFICE/OUTPA TIENT VISIT [facility], [address], [place], [address], [place] tel:[phone] [facility] Pain of right lower extremity 6 Sucher Jose. [address] [facility] [address], [place], [address]. tel: [phone] Family History Family Member Type Diagnosis Age At Onset Sister Problem (finding) Alive and well Payers Payer name Insurance type Covered republican ID Authorsylvestera tion(s) Medicare E2 OT [id number] For Life OT [id number] Social History Type Description Quantity Date Captured [...]
--- OUTSIDE RECORDS SUMMARY | 2024-07-08 02:09 | XMS_ITS | Clinical Summary ---
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
--- OUTSIDE RECORDS SUMMARY | 2024-07-08 02:09 | XMS_ITS | Encounter Summary ---
Author Organization [facility] Address 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
--- OUTSIDE RECORDS SUMMARY | 2024-07-08 02:09 | XMS_ITS | Clinical Summary ---
Author Organization [facility] Address [address] [place] [address] Care Team Providers Care Compensator Worker Name Role Phone Unavailable Primary Care Provider Unavailabl e Social History Tobacco Use Types Packs/Day Years Used Date Smoking Tobacco: Never Assessed Comments Unknown Sex and Gender Information Value Date Recorded Sex Assigned at Not on file Legal Sex Female 7:16 PM CDT Gender Identity Not on file Sexual Orientation Not on file Plan of Treatment Health Maintenance Due Date Last Done Comments Hepatitis C 1966 DTaP, Tdap and Td Vaccines ( 1 - Tdap) 1967 Pneumococcal Vaccine: 50+ Ye ars (1 of 1 - PCV) 1998 Zoster Vaccines (1 of 2) 1998 Dexa Scan (General) 2013 RSV Immunization or 60+ Years (1 - 1-dose 75+ series) 2023 COVID-19 Vaccine ( - 2023-2 5 season) 2023 Meningococcal B Vaccine Aged Out No l onger eligible based on patient's age to complete this topic Meningococcal Vaccine Aged Out No delta haley eligible based on patient's age to complete this topic RSV Immunizations Under 20 Months Aged Out No longer eligible based on patient's age to complete this topic
--- OUTSIDE RECORDS SUMMARY | 2024-07-08 02:09 | XMS_ITS | Encounter Summary ---
Author Organization [employer] Address 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
--- OUTSIDE RECORDS SUMMARY | 2024-07-08 02:09 | XMS_ITS | Encounter Summary ---
Author Organization [facility] Address [address] [facility] [address] 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
--- NOTE | 2024-07-08 12:36 | WPDHPUPDATE1 ---
History and Physical Update Update Date/Time: 07/08/24 History and Physical has been reviewed, including an updated exam of the patient. There are NO changes in the patient's condition. Risks, benefits, and alternatives have been discussed and questions answered. Patient agrees to proceed with procedure.
[2024-07-08] MEDS: LACTATED RINGERS 1,000 ML 30 ML IV CONT (13:50)
[2024-07-08] MEDS: KETOROLAC 15 MG/ML VIAL (*BKC) IV PUSH (13:50)
[2024-07-08] MEDS: ACETAMINOPHEN 500 MG TABLET 1000 MG PO (13:50)
[2024-07-08 13:53] LABS: Prothrombin Time 13.5 Seconds (11.1-14.7)
[2024-07-08 13:54] LABS: Anion Gap 10 mmol/L (4-12); Blood Urea Nitrogen 17 mg/dL (7-17); Calcium 9.1 mg/dL (8.4-10.2); Carbon Dioxide 26 mmol/L (22-30); Chloride 105 mmol/L (98-107); Estimated CRCL calculation 40 ml/min; Estimated Glomerular Filt Rate 45; Glucose 147 mg/dL (65-110); Partial Thromboplastin Time 23.3 Seconds (22.3-36.8); Sodium 141 mmol/L (137-145)
[2024-07-08] MEDS: ceFAZolin 2 GM/D5W 50 ML 2 GM/50 ML BAG IVPB (15:07)
[2024-07-08] MEDS: BUPIVACAINE/EPINEPHRINE 0.5% 10 ML VIAL 20 ML INFILTRATE (15:26)
--- NOTE | 2024-07-08 17:22 | W.PM.PROC2 ---
Procedure Note - Detailed Date of Procedure 07/08/24 Pre-op Diagnosis Right knee medial meniscal tear Post-op Diagnosis Other (Right knee medial and lateral meniscus tears) Procedure Performed Arthroscopic partial medial and lateral meniscectomies, right knee. Surgeon Ankit Thomason MD Anesthesia General Findings Extensive posterior horn medial meniscus tear. Subtotal meniscectomy. Good stable rim. Minimal chondromalacia without significant arthritis. Mild synovitis. ACL intact. Medial femur chondromalacia grade 1, medial tibia grade 1. Lateral femur chondromalacia grade 0, lateral tibia grade 0. Patellar grade 1, trochlea grade 1. Description of Procedure The patient was identified and the surgical site confirmed and signed in the preoperative holding area. Antibiotics were started per protocol, and the patient was brought to the operative room and transferred to the OR table. A general anesthetic was administered. Supine position with the operative lower extremity position in the leg valente after placement of a well padded tourniquet. The leg support was lowered and the contralateral limb was supported with a soft bolster. The knee was prepped and draped in the usual sterile fashion. A time-out was performed. The portal sites were marked and infiltrated with 0.5% Marcaine 20 mL. The limb was exsanguinated and the tourniquet inflated to 300 mL Hg. Standard inferolateral and inferomedial portals were established. Inflow was obtained with the saline pump. The camera was introduced. Diagnostic inspection of the joint was accomplished. The menisci were debrided with the arthroscopic shaver and punches until stable. The radiofrequency probe was also used for further d?bridement. The arthroscopic instruments were removed. The tourniquet released and wounds closed with subcutaneous 4-0 Monocryl absorbable suture. Steri strips and a sterile dressing were applied. A light elastic wrap was placed. The patient was extubated and brought to the recovery room in stable condition. Estimated Blood Loss 5 Drains No Complications No immediate complications Condition Stable Disposition PACU [facility] Billing Surgery - Charge Forward: Surgery Billing
--- NOTE | 2024-07-12 12:35 | WPDHPUPDATE1 ---
History and Physical Update Update Date/Time: 07/12/24 12:35 History and Physical has been reviewed, including an updated exam of the patient. There are NO changes in the patient's condition. Risks, benefits, and alternatives have been discussed and questions answered. Patient agrees to proceed with procedure.
== END 2024-07-08 17:53 | disposition home or self-care (01) ==
PROVIDERS: Anesthesiology; Visit Provider Orthopaedic Surgery
PROC: (CPT 29870; principal; 2024-07-08 15:30)
DX: S83.241A Other tear of medial meniscus, current injury, right knee, initial encounter (principal); M94.261 Chondromalacia, right knee; M65.861 Other synovitis and tenosynovitis, right lower leg; E78.5 Hyperlipidemia, unspecified; K21.9 Gastro-esophageal reflux disease without esophagitis; N18.30 Chronic kidney disease, stage 3 unspecified; X58.XXXA Exposure to other specified factors, initial encounter; E66.9 Obesity, unspecified; Z68.33 Body mass index [BMI] 33.0-33.9, adult; Z79.82 Long term (current) use of aspirin; Z79.891 Long term (current) use of opiate analgesic; Z87.891 Personal history of nicotine dependence
CPT/HCPCS: 29881; 36415; 80048; 85610; 85730; A9270; J0690; J1100; J1885; J2003; J2250; J2405; J2704; J3010; J7120

== ENCOUNTER 2024-10-18 08:30 | Outpatient (CLI) | payer MEDICARE, OTHER, SELFPAY ==
--- NOTE | ~2024-10-18 | XR_ITS ---
XR knee RT 3V 10/18/2024 08:59 Indication: Right knee pain Procedure: 3 views right knee Comparison: 02/18/2024 Findings: No fracture, subluxation or dislocation. No significant joint effusion. Mild osteoarthritis of the patellofemoral joint. Impression: 1: Mild patellofemoral compartment osteoarthritis. Reviewed, dictated and finalized at location A. Impression: 1: Mild patellofemoral compartment osteoarthritis.
--- OUTSIDE RECORDS SUMMARY | 2024-10-18 08:39 | XMS_ITS | Encounter Summary ---
Author Organization [facility] [place] [facility] Address [address] [facility] [address] 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
--- OUTSIDE RECORDS SUMMARY | 2024-10-18 08:39 | XMS_ITS | Clinical Summary ---
Author Organization [facility] Address [address] [place] [address] Care Team Providers Care Auto Claims Adjuster Name Role Phone Yohan Barros DPM Unavailable Tamia Brooks MD Primary Care Provider [phone] Tamia Brooks MD Unavailable [phone] Source Comments [facility],non-owned Affiliates and Associated Physician Practices is amultiple site organization consisting of ambulatory clinics and hospital sitesin [place], [place], [place] and [place]. This disclosure is being madepursuant to the Care Everywhere program and may not contain all information available regarding this patient. Last updated 17.[facility] Allergies Active Allergy Reactions Criticality Noted Date [...] by mouth once daily 30 capsule 5 05/14/19 18 Active blood glucose test stripIndications: Type 2 diabetes mellitus with stage 3a chronic kidney disease, without long-term current use of insulin (HCC) Use 1 (one) strip as directed 100 strip 03/25/19 23 Active lansoprazole (Prevacid) 15 MG capsuleIndication s:Gastroesophagea l reflux disease, unspecified whether esophagitis present TAKE 1 TO 2 CAPSULES ONCE DAILY TO IMPROVE HEARTBURN SYMPTOMS FOR GASTROESOPHAGEAL REFLUX DISEASE 180 capsule 3 02/04/20 24 Active lisinopril (Prinivil; Zestril) 40 MG tabletIndications :Benign essential hypertension,Stag e 3b chronic kidney disease (HCC) Take 1 (one) tablet by mouth once daily 30 tablet 1 04/19/19 25 Active sucralfate (Carafate) 1 GM tabletIndications :Gastroesophageal reflux disease, unspecified whether esophagitis present Take 1 (one) tablet by mouth 4 times daily as needed 45 tablet 2 06/30/19 25 Active metoclopramide (Reglan) 10 MG tabletIndications :Gastroesophageal reflux disease, unspecified whether esophagitis present Take 1 (one) tablet by mouth 3 times daily before meals 90 tablet 4 06/30/19 25 Active rosuvastatin (Crestor) 10 MG tabletIndications :Mixed hyperlipidemia TAKE 1 TABLET DAILY 90 tablet 1 06/30/19 25 Active carvedilol (Coreg) 6.25 MG tabletIndications :Benign essential hypertension Take 1 (one) tablet by mouth 2 times daily with morning and evening meal 200 tablet 1 07/15/19 25 Active amLODIPine (Norvasc) 10 MG tablet TAKE 1 TABLET DAILY FOR HIGH BLOOD PRESSURE 90 tablet 1 09/07/19 25 Active Active Problems Problem Noted Date Diagnosed [...] >59 mL/min/1.73 40 (L) 47 (L) GFR 7-, 3-18 Situational mixed anxiety and depressive disorde [...] Encounters Date Type Department Care Team Description 09/21/2024 1:30 PM CDT Office Visit [facility] Internal Medicine [address] [place] [phone] Jhonathan Crawford, RANCH HAND-AIR BRAKE TESTER Allergic conjunctivitis of both eyes (Primary Dx) 09/20/2024 Telephone [facility] Internal Medicine [address] [place] [phone] Tamia Brooks MD Eye Problem 09/13/2024 Telephone [facility] Internal Medicine [address] [place] [phone] Tamia Brooks MD Order 09/02/2024 Refill [facility] Internal Medicine [address] [place] [phone] Tamia Brooks MD Refill Request from Last 3 Months Immunizations Immunization Administration [...] 03/10/1990 Smokeless Tobacco: Never Tobacco Cessation:Counseling Given: Not Answered Alcohol Use Standard Drinks/Week Comments Yes 0 (1 standard drink = 0.6 oz pur e alcohol) occ PHQ-2 Answer Date Recorded Patient Health Questionnaire-2 Score 0 09/21/2024 Comments No Sex and Gender Information Value Date Recorded Sex Assigned at Not on file Legal Sex Female 6:24 AM RESIDENCE LEASING AGENT Gender Identity Female 11/22/2016 11:14 AM CDT Sexual Orientation Not on file Last Filed Vital Signs Vital Sign Reading Time Taken Comments Blood Pressure 114/60 09/21/2024 1:23 PM CDT Pulse 87 09/21/2024 1:23 PM CDT Temperature 35.9 C (96.7 F) 09/21/2024 1:23 PM CDT Respiratory Rate 16 09/21/2024 1:23 PM CDT Oxygen Saturation 98% 09/21/2024 1:23 PM CDT Inhaled Oxygen Concentration - - Weight 91.2 kg (201 lb) 09/21/2024 1:23 PM CDT Height 165.1 cm (5' 5) 09/21/2024 1:23 PM CDT Body Mass Index 33.45 09/21/2024 1:23 PM CDT Plan of Treatment Upcoming Encounters Date Type Department Care Team (Late st Contact Info) Description 12/07/2024 9:20 AM CDT Office Visit [facility] - Internal Medicine [address] [facility] [address] [place] [phone] Tamia Brooks MD [address] [place] [address] [place] [phone] 12/14/2024 9:45 AM CDT Office Visit [facility] Heart & Vascular Care [facility] [facility] [address] [place] [address] Oumar Amaral MD [address] [place] [address] [address] [place] [address] Health Maintenance Due Date Last Done Comments DTAP/TDAP/TD VACCINES (1 - Tdap) 1969 ZOSTER VACCINE (1 of 2) 1998 BONE DENSITY TESTING 03/17/2021 03/17/2019, 09/27/2016, 08/17/2014 DIABETES-FOOT EXAM WITH MONOFILAMENT 02/16/2022 02/16/2021, 01/11/2020, 01/06/2019 DIABETES - URINE PROTEIN SCREENING 03/10/2024 09/23/2023, 02/11/2020 COVID-19 VACCINE ( season) 2024 12/18/2023, 12/05/2022, 02/20/2022, Additional history exists DIABETES-SERUM CREATININE 09/22/20242023, 01/12/2021, 02/11/2020, Additional history exists INFLUENZA VACCINE (#1) 2024 , 12/05/2022, 12/31/2021, Additional history exists DIABETES-HGB A1C 12/29/2024 06/29/2024, 12/2023, 06/18/2023, Additional history exists MEDICARE AWV 12 MONTHS 06/29/2025 06/29/2024, 06/18/2023, 02/20/2022, Additional history exists DIABETES RETINOPATHY SCREENING 10/14/2025 10/15/2023, 06/18/2022, 12/07/2018 PNEUMOCOCCAL VACCINE 50+ Completed 017, 07/10/2015, 01/08/2010 HEPATITIS C SCREENING Completed 09/26/2016 Respiratory Syncytial Virus (RSV) Vaccine Pt: or over 60 yrs Completed 12/05/2022, 12/05/2022 DEPRESSION SCREENING Completed 04/29/2024, 06/18/2023, 09/11/2022, Additional [...] Author Blood Pressure < 140/90 Blood Pressure 114/60( 025 1:23 PM CDT) Lola Serna MA Procedures Procedure [...] DENSITY AXIAL SKELETON Routine 03/17/2019 10:46 AM RESIDENCE LEASING AGENT Asymptomatic menopausal state Osteopenia, unspecified location HEPATITIS [...] [facility] Lot # [id number] [facility] QC Verified Yes Yes [facility] Blood BLOOD SPECIMEN / Unknown 06/29/2024 10:12 AM CDT us Tamia Brooks MD LAB - POINT OF CARE ORDERABLES Final Result [facility] [place] 2[place] 4TH [address] [place], [facility] [address] [place] [address], [facility] [phone] * EYE EXAM (10/15/2023) Anatomical Region Laterality [...] Lab Testing performed at: [facility] [address] [facility] [id number] us Tamia Brooks MD LAB - URINE CHEMISTRY ORDERABL ES Final Result [facility] INSURANCE BILL [address] [place] [address] * (ABNORMAL) COMPREHENSIVE METABOLIC PANEL (09/23/2023 2:28 [...] Resulting Agency Comment Lab Testing performed at: [address] [id number] Tamia Brooks MD LAB - CHEMISTRY ORDERABLES Fin al Result [facility] INSURANCE BILL [address] [place] [address] * DEXA BONE DENSITY AXIAL SKELETON (03/17/2019 10:46 AM RESIDENCE LEASING AGENT) Anatomical Region Laterality Modality Nuclear Medicine 03/17/2019 10:5 0 AM RESIDENCE LEASING AGENT Impressions 03/17/2019 10:53 AM RESIDENCE LEASING AGENT Osteopenia of the hips. Normal bone mineral density of the lumbar spine. WOR[employer]IZATION DEFINITIONS NORMAL= T-Score at or above -1.0 SD OSTEOPENIA = T-Score between -1 and -2.5 SD OSTEOPOROSIS = T-Score at or below -2.5 SD Reading Radiologist: Kiki Mireles MD on 03/17/2019 at 10:53 AM Narrative 03/17/2019 10:53 AM RESIDENCE LEASING AGENT BONE MINERAL DENSITY STUDY: INDICATION: 68-year-old for [...] HEPATITIS C ANTIBODY (09/26/2016 8:02 AM CDT) Pathologist [facility] Hepatitis C Antibody <0.1 0.0 - 0.9 s/co ratio [facility] INSURANCE BILL Comment: Negative: < 0.8 Indeterminate: 0.8 - 0.9 Positive: > 0.9 . The CDC recommends that a positive HCV antibody result be followed up with a HCV Nucleic Acid Amplification test (472228). FASTING Blood BLOOD SPECIMEN / Unknown 09/26/2016 8:02 AM CDT 09/26/2016 Narrative Resulting Agency Comment [facility] [address] [facility] [id number] Tamia Brooks MD LAB - CHEMISTRY ORDERABLES Fin al Result [facility] INSURANCE BILL [address] [place] [address] from Last 3 Months or Most Recently Relevant to Health Maintenance Insurance MEDICARE [facility] Address: [facility] [address] [place] [address] [facility] MEDICARE [facility] * Guarantor: MAURA WATKINS Account Type Relation to Patient Date of Phone Billing Address Personal/Family [address] [place], [place] MEDICARE [facility] * Guarantor: MAURA WATKINS Account Type Relation to Patient Date of Phone Billing Address Personal/Family [address] [place], [place] * Guarantor: MAURA WATKINS Account Type Relation to Patient Date of Phone Billing Address Personal/Family [address] [place] [address] Care Teams Auto Claims Adjuster Relationship Specialty Start Date End Date Tamia Brooks MD [address] [place] [address] PCP - General Internal Medicine 07/26/16 Tamia Brooks MD [address] [place] [address] PCP - Attributed-MSSP 05/08/22 Yohan Barros, TAMMYM [address] [facility] [place] [address] [place] [phone] Podiatry 05/24/13
--- OUTSIDE RECORDS SUMMARY | 2024-10-18 08:39 | XMS_ITS | Encounter Summary ---
Author Organization [facility] Address 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
--- OUTSIDE RECORDS SUMMARY | 2024-10-18 08:39 | XMS_ITS | Encounter Summary ---
Author Organization [facility] [facility] Address [address] [place] [address] Care Team Providers Care Water Pollution Control Technician Name Role Phone Jhonathan Fisher MD Primary Care Provider Opal ramírez Encounter Details Date Type Department Care Team (Late st Contact Info) Description 12/16/2003 Outpatient Historical [facility] Alex Kay MD [address] [facility] [address] [place] [address] SCREENING MAMM-MAILG NEOPL-OTHER (Primary Dx) Social History Tobacco Use Types Packs/Day Years Used Date Smoking Tobacco: Never Assessed Comments Unknown Sex and Gender Information Value Date Recorded Sex Assigned at Not on file Legal Sex Female 3:08 AM SALES AGENT 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
--- OUTSIDE RECORDS SUMMARY | 2024-10-18 08:39 | XMS_ITS | Encounter Summary ---
Author Organization [facility] Address 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
--- OUTSIDE RECORDS SUMMARY | 2024-10-18 08:39 | XMS_ITS | Continuity of Care Document ---
Author Organization [facility] Address [address] [address] Phone Care Team Providers Care Health Care Aide Name Role Phone Daniel PONCE, Jose Unavailable [...] - Active Procedures Procedure Date OFFICE/OUTPATIENT VISIT [facility] OFFICE/OUTPATIENT VISIT [facility] Advance Directives Directive Yes / No Effective Date File Name No Information Encounters Encounter Description Practice Location Reason(s) For Visit Diagnoses Date Provider Providers Copied on Encounter OFFICE/OUTPA TIENT VISIT EST [facility], [address], [address], [place] tel:[phone] [facility] Ruptured Bakers cystGastrocnemi us strain, right, subsequent encounter Sep-1 6 Sucher Jose. [address] [address], [place], [address]. tel: [phone] [facility], [address] [place] [address], [place], [facility], [place] tel:[phone] [facility] Pain of right lower extremity Sep-0 6 Sucher Jose. [address] [address], [place], [address]. tel: [phone] OFFICE/OUTPA TIENT VISIT [facility], [address] [facility], [place], [address], [place] tel:[phone] [facility] Pain of right lower extremity 6 Sucher Jose. [address] [facility] [address], [place], [address]. tel: [phone] Family History Family Member Type Diagnosis Age At Onset Sister Problem (finding) Alive and well Payers Payer name Insurance type Covered green party ID Authorsylvestera tion(s) Medicare E2 OT [id number] For Life OT [id number] Social History Type Description Quantity Date Captured [...]
--- OUTSIDE RECORDS SUMMARY | 2024-10-18 08:39 | XMS_ITS | Encounter Summary ---
Author Organization [facility] Address [address] [facility] [place] [address] Care Team Providers Care Pest Control Worker Helper Name Role Phone Yohan Barros DPM Unavailable [phone] Tamia Brooks MD Primary Care Provider [phone] Tamia Brooks MD Unavailable [phone] Mame Vo Unavailable [phone] Reason for Visit * Reason Onset Date Comments Question 03/30/2024 Encounter Details Date Type Department Care Team (Late st Contact Info) Description 03/30/2024 Telephone [facility] Medical [facility] - Internal Medicine [address] [facility] [address] [place] [phone] Tamia Brooks MD [address] [place] [phone] Question Social History Tobacco Use Types [...] on file Legal 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 Calling again today to report she continues to get calls from someone identifying themselves as Dr Brooks and from [facility]. Pt has tried blocking phone number butstates they have called on at least 30 different numbers. Pt is asking if there is anything that can be done or who she can report this to in order to stop these calls. ON BLOCKS PRESS OPERATOR * Telephone Encounter - Brenda Zambrano - [...] office to get back to them? NO ON BLOCKS PRESS OPERATOR documented in this encounter Plan of Treatment Upcoming Encounters Date Type Department Care Team (Late st Contact Info) Description 12/07/2024 9:20 AM CDT Office Visit [facility] Medical Group - Internal Medicine [address] [place] [address] [address] [place] [address] Tamia Brooks MD [address] [place] [address] [address] [place] [address] 12/14/2024 9:45 AM CDT Office Visit [facility] Heart & Vascular Care [address] [place] [address] [address] [place], [place] [id number] Oumar Amaral MD [address] [place] [address] [address] [place] [address] documented as of this encounter Goals Goal Patient Goal Type Associated Problems Recent Progress Patient-Stated? Author Blood Pressure < 140/90 Blood Pressure 114/60( 025 1:23 PM CDT) Lola Serna MA documented as of this encounter Visit Diagnoses Not on filedocumented in this encounter Care Teams Pest Control Worker Helper Relationship Specialty Start Date End Date Tamia Brooks MD [address] [place] [address] PCP - General Internal Medicine 07/26/16 Tamia Brooks MD [address] [place] [address] PCP - Attributed-MSSP 05/08/22 Yohan Barros DPM [facility] [address] [place] [phone] Podiatry 05/24/13 Mame Vo Care Coordination Specialist Care Management 07/14/24 07/14/24 documented as of this encounter
--- OUTSIDE RECORDS SUMMARY | 2024-10-18 08:39 | XMS_ITS | Encounter Summary ---
Author Organization [employer] Address 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
--- OUTSIDE RECORDS SUMMARY | 2024-10-18 08:39 | XMS_ITS | Encounter Summary ---
Author Organization [facility] Address [address] [place] [address] Care Team Providers Care Tub Chucker Name Role Phone Jhonathan Fisher MD Primary Care Provider Opal ramírez Encounter Details Date Type Department Care Team (Late st Contact Info) Description 01/02/2004 Outpatient Historical HIS [facility] Alex Salmon MD [address] [facility] [address] [place] [address] SCREENING MAMM-MALIG NEOPL-HI RISK (Primary Dx) Social History Tobacco Use Types Packs/Day Years Used Date Smoking Tobacco: Never Assessed Comments Unknown Sex and Gender Information Value Date Recorded Sex Assigned at Not on file 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
--- OUTSIDE RECORDS SUMMARY | 2024-10-18 08:39 | XMS_ITS | Encounter Summary ---
Author Organization [facility] Address 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
--- OUTSIDE RECORDS SUMMARY | 2024-10-18 08:39 | XMS_ITS | Encounter Summary ---
Author Organization [facility] [facility] Address [address] [place] [address] Care Team Providers Care Aircraft Accessories Mechanic Name Role Phone Jhonathan Fisher MD [...] on file Legal Sex Female 3:08 AM BLOW DOWN OPERATOR Gender Identity Not on file Sexual Orientation Not on file documented as of this encounter Plan of Treatment Not on file documented as of this encounter Visit Diagnoses Diagnosis Other screening mammogram- Primary documented in this encounter Care Teams Aircraft Accessories Mechanic Relationship Specialty Start Date End Date Jhonathan Fisher MD PCP - General 02/24/15 documented as of this encounter
--- OUTSIDE RECORDS SUMMARY | 2024-10-18 08:39 | XMS_ITS | Clinical Summary ---
Author Organization [facility] Address [address] [place] [address] Phone Care Team Providers Care Manager Marketing Communications Name Role Phone Tamia Brooks MD Primary Care Provider [phone] Allergies Active Allergy Reactions Criticality Noted Date [...] on file Legal Sex Female 7:38 AM MST Gender Identity Not on file Sexual Orientation [...] 11:38 AM CDT Height 167.6 cm (5' 6) 01/09/2022 11:38 AM CDT Body Mass Index 32.6 01/09/2022 11:38 AM CDT Plan of Treatment Health Maintenance Due Date Last Done Comments COVID-19 Vaccine (2023- 5 season) 2023 01/18/2021, 05/29/2020, 05/01/2020 Influenza Vaccine (#1) 2024 , 01/18/2021, 12/30/2019, Additional history exists Pneumococcal PPSV23/PCV13 65 + Years / Low and Medium Risk Completed 09/16/2016, 07/10/2015, 01/08/2010 Insurance MEDICARE [facility] Care Teams Manager Marketing Communications Relationship Specialty Start Date End Date Tamia Brooks MD [address] [phone] PCP - General Internal Medicine 11/11/18
--- OUTSIDE RECORDS SUMMARY | 2024-10-18 08:39 | XMS_ITS | Encounter Summary ---
Author Organization [facility] Address 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
--- OUTSIDE RECORDS SUMMARY | 2024-10-18 08:39 | XMS_ITS | Clinical Summary ---
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
--- OUTSIDE RECORDS SUMMARY | 2024-10-18 08:39 | XMS_ITS | Encounter Summary ---
Author Organization [facility] Address [address] [facility] [place] [address] Care Team Providers Care Broommaker Name Role Phone Yohan Barros DPM Unavailable [phone] Tamia Brooks MD Primary Care Provider Tamia Brooks MD Unavailable [phone] Mame Vo Unavailable [phone] Reason for Visit * Reason Onset Date Comments Blood Pressure 04/26/2024 Encounter Details Date Type Department Care Team (Late st Contact Info) Description 04/26/2024 Telephone [facility] Medical [facility] - Internal Medicine [address] [place] [id number] Tamia Brooks MD [address] [place] [phone] Blood Pressure Social History Tobacco Use [...] on file Legal Sex Female 6:24 AM JEWEL SETTER Gender Identity Female 11/22/2016 11:14 AM CDT Sexual Orientation Not on file documented as of this encounter Functional Status * Over the past 2 weeks, how often have you been bothered by any of the following problems? Question Answer Date of Assessment Author Little interest or pleasure in doing things Not at all 04/29/2024 12:58 PM JEWEL SETTER Amira Watson MA Feeling down, depressed, or hopeless Not at all 04/29/2024 12:58 PM JEWEL SETTER Amira Watson MA Patient Health Questionnaire -2 Score 0 04/29/2024 12:58 PM JEWEL SETTER Amira Watson MA documented as of this encounter Miscellaneous Notes * Telephone Encounter - Tamia Brooks MD - 04/26/2024 4:27 PM CST Add coreg 6.25 mg BID. Orders Placed This Encounter carvedilol (Coreg) 6.25 MG tablet Sig: Take 1 (one) tablet by mouth 2 times daily with morning and evening meal Dispense: 60 tablet Refill: 1 L SETTER * Telephone Encounter - Audra Bernal - 04/26/2024 2:14 PM CST BP readings after starting Amlodopine: 04/19 - pre PT 154/81 pulse 110, post PT 142/82 pulse 90, BT 182/110 pulse 86 04/20 - am 149/90 pulse 91, pm 176/107 pulse 87 2/12 - am 150/88 pulse 86, pm 175/91 pulse 85 /13 - am 175/84 pulse 101, pm 174/85 pulse 102 2/14 - am 158/89 pulse 85, pm 187/96 pulse 94 /15 - am 171/95 pulse 86, pm 194/91 pulse 92 2/16 - am 136/79 pulse 86, pm 177/94 pulse 95 /17 - 9 am 150/88 pulse 71, 1021 am before PT 129/82 pulse 98, after PT 119/77 pulse 99 L SETTER documented in this encounter Plan of Treatment Upcoming Encounters Date Type Department Care Team (Late st Contact Info) Description 12/07/2024 9:20 AM CDT Office Visit [facility] - Internal Medicine [address] [place] [address] Tamia Brooks MD [address] [facility] [address] [place] [address] 12/14/2024 9:45 AM CDT Office Visit [facility] [address] [place] [address] [address] [place] [address] Oumar Amaral MD [address] [facility] [address] [place] [address] documented as of this encounter Goals Goal Patient Goal Type Associated Problems Recent Progress Patient-Stated? Author Blood Pressure < 140/90 Blood Pressure 114/60( 025 1:23 PM CDT) Lola Serna MA documented as of this encounter Visit Diagnoses Diagnosis Benign essential hypertension- Primary Essential hypertension, benign documented in this encounter Care Teams Broommaker Relationship Specialty Start Date End Date Tamia Brooks MD [facility] [facility] [address] [place] [address] PCP - General Internal Medicine 07/26/16 Tamia Brooks MD [address] [place] [address] [address] [place] [address] PCP - Attributed-MSSP 05/08/22 Yohan Barros DPM [address] [facility] [address] [place] [address] Podiatry 05/24/13 Mame Vo Care Coordination Specialist Care Management 07/14/24 07/14/24 documented as of this encounter
--- OUTSIDE RECORDS SUMMARY | 2024-10-18 08:40 | XMS_ITS | Encounter Summary ---
Author Organization [facility] Address 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
--- OUTSIDE RECORDS SUMMARY | 2024-10-18 08:40 | XMS_ITS | Clinical Summary ---
Author Organization [facility] Address [address] [place] [address] Care Team Providers Care Knowledge Analyst Name Role Phone Unavailable Primary Care Provider [...] topic Meningococcal Vaccine Aged Out No delta haely eligible based on patient's age to complete this topic RSV Immunizations Under 20 Months Aged Out No longer eligible based on patient's age to complete this topic
== END 2024-10-18 08:31 | disposition home or self-care (01) ==
PROVIDERS: Visit Provider Orthopaedic Surgery
DX: M17.11 Unilateral primary osteoarthritis, right knee (principal); Z98.890 Other specified postprocedural states
CPT/HCPCS: 73562